=== PATIENT | female | born 1960 | race Caucasian/White ===

== ENCOUNTER 2016-03-15 17:11 | Emergency (ER) | payer OTHER ==
[~2016-03-15] VITALS: Ht 165.1 cm; Wt 79.5 kg
[~2016-03-15 17:11] MED LIST: ATV5 PO; BACL10TA PO; CALC200S; CALC200T PO; CHOL100010 PO; CLC100 PO; CLZ100 PO; FLUT1INH INH; GABA-112 PO; OXYC-164 PO; PERP1TAB5 PO; PRLSR20 PO; SYM100 PO; TIOTCAP INH; UMEC1INH INH; VNTHFA/IN INH; WARF2.5T8 PO; WARF5TAB7 PO
[2016-03-15 17:22] VITALS: TEMP 36.7; Ht 165.1 cm; Wt 79.5 kg
[2016-03-15] MEDS ORDERED: ACETAMINOPHEN 500 MG TAB PO STA (17:22)
[2016-03-15] MEDS ORDERED: CALC200S6 (18:12)
[2016-03-15] MEDS ORDERED: ACET-1256 PO (18:13)
[2016-03-15 18:14] LABS: BASO % 0.3 %; BASO ABS # 0.04 K/uL (0-0.2); COMPLETE YES; EOS % 2.3 %; HEMATOCRIT 38.7 % (37-47); IG% 0.2 %; LYMPH ABS # 3.14 K/uL (1.2-3.4); MEAN CELL VOLUME 90.6 fL (80-100); MEAN CORPUSCULAR HEMOGLOBIN 29.7 pg (25-34); MEAN CORPUSCULAR HGB CONC 32.8 g/dl (32-36); MEAN PLATELET VOLUME 9.9 fL (7.4-10.4); MONO % 11.1 %; NEUT % 61.1 %; PLATELET COUNT 381 K/uL (130-400); RED BLOOD COUNT 4.27 M/uL (4.2-5.4); WHITE BLOOD COUNT 12.57 K/uL (4.8-10.8)
[2016-03-15 18:27] LABS: BUN/CREATININE RATIO 17.6 (10-20); CALCIUM 9.4 mg/dl (8.5-10.1); CREATININE 0.98 mg/dl (0.60-1.20)
[2016-03-15 18:38] LABS: POTASSIUM 3.9 mmol/L (3.5-5.1)
--- NOTE | 2016-03-15 18:57 | DIAGNOSTIC IMAGING REPORT ---
HEAD CT NONCONTRAST CT DOSE: HISTORY: fall hit head TECHNIQUE: Multiaxial CT images of the head were performed without the use of intravenous contrast. Automated exposure control was utilized for this study. Comparison: Head CT 05/30/2014. Findings: Small fluid level within the left sphenoid sinus. The mastoid air cells are clear. Focal mild posterior scalp swelling/hematoma. The calvarium and skull base are intact. The ventricles and sulci are within normal limits. There is no mass, hematoma, midline shift, or acute infarct. Impression: No acute intracranial abnormality. Focal posterior scalp swelling/hematoma Electronically signed by: Uriel Talley M.D. 03/15/2016 6:55 PM Dictated Date/Time: 03/15/2016 6:47 PM
--- NOTE | 2016-03-15 19:00 | DIAGNOSTIC IMAGING REPORT ---
PELVIS/right HIP 2-3VIEWS CLINICAL HISTORY: r hip pain Right COMPARISON STUDY: Right femur 05/30/2014. FINDINGS: There is internal fixation of bilateral proximal femur fractures. The hardware appears intact. The hardware remains unchanged in position. No abnormal periprosthetic lucency. Heterotopic ossification superior to the left proximal femur. Cartilage spaces are maintained for age within the hips. No acute fracture or dislocation within the pelvis or hips. The sacrum appears intact. Soft tissues are unremarkable. IMPRESSION: 1. No acute fracture or dislocation within the pelvis or hips. 2. Postoperative changes within the bilateral hips. The hardware appears intact. Electronically signed by: Uriel Talley M.D. 03/15/2016 6:58 PM Dictated Date/Time: 03/15/2016 6:55 PM
--- NOTE | 2016-03-15 19:07 | DIAGNOSTIC IMAGING REPORT ---
CERVICAL SPINE CT CT DOSE: 946.47 mGy.cm HISTORY: Neck pain. fall hit head TECHNIQUE: Multiaxial CT images of the cervical spine were performed and reformatted in the sagittal and coronal plane without the use of contrast. COMPARISON: Cervical spine CT 05/30/2014. FINDINGS: No fractures. No subluxation. Prevertebral soft tissues and the C1-C2 interval are intact. No pneumothorax. Bilateral thyroid nodules with the largest on the left measuring 9 mm. Dextroscoliosis which may be positional. Mild disc space narrowing at C3-C4 and moderate to space narrowing at C4-C5 and C5-C6. This is similar to the prior study. IMPRESSION: No fractures within the cervical spine. Electronically signed by: Uriel Talley M.D. 03/15/2016 7:05 PM Dictated Date/Time: 03/15/2016 7:01 PM
[2016-03-15 19:30] LABS: INR 3.3 (0.9-1.1)
--- NOTE | 2016-03-15 19:57 | EMERGENCY ROOM VISIT NOTE ---
History Report prepared by Stanley: Sruthi Aceves Under the Supervision of: Jodie WinnO. 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 The patient states that she was walking between doorways in the house and tripped, fell, and hit her head. She reports that she normally wears 3L of oxygen at home. She complains of head pain, hip pain, and slight neck pain. She denies any LOC, change in vision, new back pain, ankle pain, leg pain, and arm pain. The patient notes that she takes Warfarin but is not sure what her Coumadin levels are. She reports that she has a history of blood clots in her leg. She does not know when her last tetanus shot was. 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 She denies any change in vision, ankle pain, leg pain, and arm pain. Review of Systems See HPI for pertinent positives & negatives. A total of 10 systems reviewed and were otherwise negative. Past Medical & Surgical Medical Problems: (1) Accidental drug overdose (2) Alcohol abuse (3) Aspiration pneumonia (4) Back pain (5) Cataract (6) Chronic hepatitis C (7) Chronic obstructive lung disease (8) Chronic paranoid schizophrenia (9) Closed fracture of femur (10) COPD (chronic obstructive pulmonary disease) (11) Deep venous thrombosis (12) Depression (13) Drug abuse (14) Gastroesophageal reflux disease (15) Hepatitis C (16) Hypoxia (17) Hysterectomy (18) Opiate abuse, continuous (19) Osteoporosis (20) Past Psych Meds (21) Psychosis (22) S/P ORIF (open reduction internal fixation) fracture (23) Schizoaffective disorder (24) Seizure (25) Suicidal ideation (26) Tinea (27) Tobacco user Surgical Problems: (1) H/O colonoscopy (2) History of hysterectomy (3) S/p thoracic spinal surgery (4) S/P tonsillectomy Family History FH: lung cancer GRANDMOTHER Thyroid disorder MOTHER SISTER Social History Smoking Status: Former Smoker Alcohol Use: none Drug Use: other Marital Status: single Housing Status: lives with family Occupation Status: disabled Current/Historical Medications Scheduled Amantadine HCl (Amantadine HCl), 100 MG PO BID Calcitonin ([place]) (Calcitonin [place]), 1 SPRAY NA DAILY@1600 Calcium Carbonate-Vitamin D (Oscal 500/200 D-3), 1 TAB PO BID Cholecalciferol (D 1000), 1,000 UNIT PO QAM Clozapine (Clozapine), 400 MG PO HS Docusate Sodium (Docusate Sodium), 100 MG PO BID Econazole Nitrate (Econazole Nitrate Crm 1% 30 Gm), 1 APPLN TOP QID Escitalopram Oxalate (Escitalopram Oxalate), 20 MG PO QAM Fenofibrate (Fenofibrate), 48 MG PO QAM Ferrous Sulfate (Ferrous Sulfate), 325 MG PO BIDM Fluticasone Furoate-Vilanterol (Breo Ellipta), 1 PUFF INH DAILY@1600 Folic Acid (Folvite), 1 MG PO DAILY Gabapentin (Neurontin), 200 MG PO TID Montelukast Sodium (Singulair), 10 MG PO HS Omeprazole (Prilosec), 20 MG PO QAM Perphenazine (Trilafon), 12 MG PO AMHS Senna/Docusate Sod (Senokot S), 2 TAB PO DAILY Tamsulosin Hcl (Flomax), 0.4 MG PO HS Umeclidinium Turin (Incruse Ellipta), 1 PUFF INH DAILY Warfarin Sod (Jantoven), Unknown Dose PO UNKNOWN Scheduled PRN Acetaminophen (Tylenol), 1,000-1,500 MG PO Q12 PRN for RN Albuterol Hfa (Ventolin Hfa), 2 PUFFS INH QID PRN for SOB/Wheezing Baclofen (Lioresal), 5 MG PO BID PRN for Muscle Spasms Lorazepam (Lorazepam), 0.5 MG PO BID PRN for Anxiety Oxycodone Hcl (Oxycodone Hcl), 1 TAB PO Q8 PRN for Pain Allergies Coded Allergies: Haloperidol (Verified Allergy, Unknown, 03/15/16) [place] (Verified Allergy, Unknown, ., 03/15/16) Molindone (Verified Adverse Reaction, Intermediate, PT FEELS LIKE SHES "JUMPING OUT OF HER SKIN", 03/15/16) Fluphenazine (Verified Adverse Reaction, Unknown, confusion, 03/15/16) Physical Exam Vital Signs Date Time Temp Pulse Resp B/P Pulse Ox O2 Delivery O2 Flow Rate FiO2 03/15/16 19:59 99 18 121/80 95 03/15/16 18:19 109 18 110/83 94 Nasal Cannula 3.0 03/15/16 17:22 36.7 100 16 130/114 95 Nasal Cannula 3.0 Physical Exam GENERAL: alert, well appearing, well nourished, no distress, non-toxic, on nasal cannula HEAD: normal cephalic, contusion to the left posterior occiput without bleeding , skin is intact. EYE EXAM: normal conjunctiva, PERRL and EOM's grossly intact OROPHARYNX: no exudate, no erythema, lips, buccal mucosa, and tongue normal and mucous membranes are moist EARS: TMs clear b/l NECK: supple, no nuchal rigidity, no adenopathy, non-tender CHEST: stable to compression anteriorly and posteriorly LUNGS: clear to auscultation. Normal chest wall mechanics HEART: tachycardic, no murmurs, S1 normal and S2 normal ABDOMEN: abdomen soft, non-tender, normo-active bowel sounds, no masses, no rebound or guarding. PELVIS: stable to compression anteriorly and posteriorly BACK: Back is symmetrical on inspection and there is no deformity, no CVA tenderness. Old incision in the mid thoracic that are intact. Midline cervical tenderness. UPPER EXTREMITIES: full active and passive range of motion of all joints without tenderness to palpation LOWER EXTREMITIES: full active and passive range of motion of all joints with minimal pain on palpation of the right proximal femur NEURO EXAM: Normal sensorium, cranial nerves II-XII grossly intact, normal speech, no gross weakness of arms, no gross weakness of legs. GCS: 15. Medical Decision & Procedures ER Provider Diagnostic Interpretation: Xray results per the radiologist and my interpretation. Other results have been interpreted by the radiologist and reviewed by me. PELVIS/right HIP 2-3VIEWS FINDINGS: There is internal fixation of bilateral proximal femur fractures. The hardware appears intact. The hardware remains unchanged in position. No abnormal periprosthetic lucency. Heterotopic ossification superior to the left proximal femur. Cartilage spaces are maintained for age within the hips. No acute fracture or dislocation within the pelvis or hips. The sacrum appears intact. Soft tissues are unremarkable. IMPRESSION: 1. No acute fracture or dislocation within the pelvis or hips. 2. Postoperative changes within the bilateral hips. The hardware appears intact. Electronically signed by: Uriel Talley M.D. 03/15/2016 6:58 PM Dictated Date/Time: 03/15/2016 6:[address] NONCONTRAST Findings: Small fluid level within the left sphenoid sinus. The mastoid air cells are clear. Focal mild posterior scalp swelling/hematoma. The calvarium and skull base are intact. The ventricles and sulci are within normal limits. There is no mass, hematoma, midline shift, or acute infarct. Impression: No acute intracranial abnormality. Focal posterior scalp swelling/hematoma Electronically signed by: Uriel Talley M.D. 03/15/2016 6:55 PM Dictated Date/Time: 03/15/2016 6:[address] FINDINGS: No fractures. No subluxation. Prevertebral soft tissues and the C1-C2 interval are intact. No pneumothorax. Bilateral thyroid nodules with the largest on the left measuring 9 mm. Dextroscoliosis which may be positional. Mild disc space narrowing at C3-C4 and moderate to space narrowing at C4-C5 and C5-C6. This is similar to the prior study. IMPRESSION: No fractures within the cervical spine. Electronically signed by: Uriel Talley M.D. 03/15/2016 7:05 PM Dictated Date/Time: 03/15/2016 7:01 PM Laboratory Results 03/15/16 17:55 Red Blood Count 4.27, Mean Corpuscular Volume 90.6, Mean Corpuscular Hemoglobin 29.7, Mean Corpuscular Hemoglobin Concent 32.8, Mean Platelet Volume 9.9, Neutrophils (%) (Auto) 61.1, Lymphocytes (%) (Auto) 25.0, Monocytes (%) (Auto) 11.1, Eosinophils (%) (Auto) 2.3, Basophils (%) (Auto) 0.3, Neutrophils # (Auto ) 7.68, Lymphocytes # (Auto) 3.14, Monocytes # (Auto) 1.39, Eosinophils # (Auto ) 0.29, Basophils # (Auto) 0.04 03/15/16 17:55 Test 03/15/16 17:55 03/15/16 19:01 White Blood Count 12.57 K/uL (4.8-10.8) Red Blood Count 4.27 M/uL (4.2-5.4) Hemoglobin 12.7 g/dL (12.0-16.0) Hematocrit 38.7 % (37-47) Mean Corpuscular Volume 90.6 fL (80-100) Mean Corpuscular Hemoglobin 29.7 pg (25-34) Mean Corpuscular Hemoglobin Concent 32.8 g/dl (32-36) Platelet Count 381 K/uL (130-400) Mean Platelet Volume 9.9 fL (7.4-10.4) Neutrophils (%) (Auto) 61.1 % Lymphocytes (%) (Auto) 25.0 % Monocytes (%) (Auto) 11.1 % Eosinophils (%) (Auto) 2.3 % Basophils (%) (Auto) 0.3 % Neutrophils # (Auto) 7.68 K/uL (1.4-6.5) Lymphocytes # (Auto) 3.14 K/uL (1.2-3.4) Monocytes # (Auto) 1.39 K/uL (0.11-0.59) Eosinophils # (Auto) 0.29 K/uL (0-0.5) Basophils # (Auto) 0.04 K/uL (0-0.2) RDW Standard Deviation 51.2 fL (36.4-46.3) RDW Coefficient of Variation 15.3 % (11.5-14.5) Immature Granulocyte % (Auto) 0.2 % Immature Granulocyte # (Auto) 0.03 K/uL (0.00-0.02) Anion Gap 10.0 mmol/L (3-11) Est Creatinine Clear Calc Drug Dose 66.8 ml/min Estimated GFR () 74.7 Estimated GFR (Non- 64.5 BUN/Creatinine Ratio 17.6 (10-20) Calcium Level 9.4 mg/dl (8.5-10.1) Chemistry Specimen Hemolysis Prothrombin Time 37.0 SECONDS (9.0-12.0) Prothromb Time International Ratio 3.3 (0.9-1.1) Activated Partial Thromboplast Time 50.7 SECONDS (21.0-31.0) Partial Thromboplastin Ratio 2.0 Laboratory results per my review. Medications Administered Medications (Trade) Dose Ordered Sig/Janel Route Start Time Stop Time Status Last Admin Dose Admin Acetaminophen (Tylenol Tab) 500 mg NOW STAT PO 03/15/16 17:22 03/15/16 17:25 DC 03/15/16 17:44 500 MG ECG Indication: other (fall) Rate (beats per minute): 102 Rhythm: sinus tachycardia Findings: other (normal axis, nonspecific ST changes in lead 3) Comparison ECG Date: 01/24/16 Change: no significant change ED Course ED COURSE: Vital signs were reviewed and the patient was tachycardic The patients medical record was reviewed The above diagnostic studies were performed and reviewed. ED treatments and interventions as stated above. 171: The patient was evaluated in room A12B. A complete history and physical examination was performed. 172: Tylenol Tab 500mg PO. 1824: I reevaluated the patient and she is doing fine 1942: I reevaluated and updated the patient. She is feeling much better. 1999: Upon reevaluation, the patient is hemodynamically stable.I discussed my findings with the patient and she understands and agrees with the treatment plan. Based on the patients age, coexisting illnesses, exam and lab findings the decision to treat as an outpatient was made. The patient remained stable while under my care. The patient appeared well at the time of discharge. Medical Decision Differential diagnoses include major intracranial, cervical, spinal, thoracic, abdominal, pelvic and neurologic injury. Fracture, contusion, sprain, strain, laceration, abrasions included as well. Patient is a 55-year-old female who presents the ER via ALS following a mechanical fall while walking through a doorway which she tripped and fell and hit the back of her head. She is on Coumadin for previous DVTs. INR was supratherapeutic at 3.3. She had minimal paraspinal cervical neck tenderness. CT head and cervical spine were negative. X-rays of her hip and pelvis showed no acute fractures. She has no other complaints. CBC and BMP were unremarkable. EKG was nondiagnostic. Patient was discharged instructed to follow with her primary care doctor. Discussed with Pt concerning signs and symptoms to watch out for. Pt was instructed to follow up with their PCP and discussed with the patient their option to return to the ED at anytime for persistent or worsening symptoms. The appropriate anticipatory guidance and out- patient management, including indications for return to the emergency department , were explained at length to the patient and understood. Impression Primary Impression: Contusion of head Additional Impression: Fall Scribe Attestation The scribe's documentation has been prepared under my direction and personally reviewed by me in its entirety. I confirm that the note above accurately reflects all work, treatment, procedures, and medical decision making performed by me. Departure Information Dispostion Home / Self-Care Referrals No Doctor, Assigned (PCP) Forms HOME CARE DOCUMENTATION FORM, IMPORTANT VISIT INFORMATION Patient Instructions My [facility] Additional Instructions Please follow up with your primary care doctor with in the next 24 hours. Any worsening of your symptoms, please return to the ED immediately. This includes change in vision, worsening headache, any new pain, passing out, confusion or any other concerning signs or symptoms from your standpoint. Your INR is supratherapeutic at 3.3. Please do not take her Coumadin tonight but you may restart this tomorrow. Problem Qualifiers Primary Impression: Contusion of head Encounter type: initial encounter Contusion of head detail: scalp Qualified Codes: S00.03XA - Contusion of scalp, initial encounter Additional Impression: Fall Encounter type: initial encounter Qualified Codes: W19.XXXA - Unspecified fall, initial encounter
[2016-03-15 19:59] VITALS: BP 121/80; PULSE 99; O2SAT 95
[2016-05-04] MEDS ORDERED: NRN300 PO (16:25)
[2016-05-04] MEDS ORDERED: HYDR-3419 PO (18:03)
[2016-05-31] MEDS ORDERED: FLUT1INH7 (06:17)
[2016-10-18] MEDS ORDERED: ATR25 PO (11:50)
[2016-10-18] MEDS ORDERED: CFT250 PO (12:01)
[2016-10-18] MEDS ORDERED: GABA1CAP PO (12:01)
[2016-11-26] MEDS ORDERED: CLOZ100T18 PO (06:09)
[2016-11-26] MEDS ORDERED: PERP1TAB11 PO ×2 (06:17→09:04)
[2016-11-26] MEDS ORDERED: UMEC1INH PO (06:19)
[2016-11-26] MEDS ORDERED: FLUT1INH INH (06:20)
[2016-11-26] MEDS ORDERED: DOCU100C31 PO (06:22)
[2016-11-26] MEDS ORDERED: MONT1TAB3 PO (08:47)
[2016-11-26] MEDS ORDERED: BACL1TAB PO (09:04)
[2016-11-26] MEDS ORDERED: ACET1TAB84 PO (09:04)
[2016-11-26] MEDS ORDERED: FLUT0.15 NAE (09:04)
[2016-11-26] MEDS ORDERED: NAPR1TAB9 PO (09:10)
[2016-11-26] MEDS ORDERED: VNTHFA/IN INH (10:53)
[2016-11-26] MEDS ORDERED: ATV/1 PO (10:56)
[2016-11-26] MEDS ORDERED: TAMS0.4C38 PO (11:38)
[2016-11-26] MEDS ORDERED: SENN-65 PO (12:13)
[2016-11-26] MEDS ORDERED: SPCCR30 TOP (12:13)
[2016-11-26] MEDS ORDERED: MCLIN (15:22)
[2016-11-26] MEDS ORDERED: MOML PO (15:22)
[2016-11-26] MEDS ORDERED: LXP/20 PO (17:03)
[2016-11-26] MEDS ORDERED: TRC48 PO (17:03)
[2016-11-26] MEDS ORDERED: FERR325T PO (18:03)
[2016-11-26] MEDS ORDERED: CHOL1TAB53 PO (18:12)
[2016-11-26] MEDS ORDERED: RANI150T2 PO (18:26)
== END 2016-03-15 20:00 | disposition home or self-care (01) ==
LOC: EDBD 17:11 → C.EDA 17:13
DX: S00.03XA Contusion of scalp, initial encounter (principal); Z86.718 Personal history of other venous thrombosis and embolism; Z79.01 Long term (current) use of anticoagulants; K21.9 Gastro-esophageal reflux disease without esophagitis; J44.9 Chronic obstructive pulmonary disease, unspecified; M81.0 Age-related osteoporosis without current pathological fracture; Z87.891 Personal history of nicotine dependence; Z99.81 Dependence on supplemental oxygen; F32.9 Major depressive disorder, single episode, unspecified; W19.XXXA Unspecified fall, initial encounter; Y93.01 Activity, walking, marching and hiking; Y92.019 Unspecified place in single-family (private) house as the place of occurrence of the external cause; Y99.8 Other external cause status

== ENCOUNTER 2016-03-19 07:03 | Emergency (ER) | payer OTHER ==
[~2016-03-19] VITALS: Ht 165.1 cm; Wt 78.2 kg
[~2016-03-19 07:03] MED LIST changes: +ACET-1256 PO; -CALC200S; +CALC200S6; -CHOL100010 PO; -TIOTCAP INH; -WARF5TAB7 PO
[2016-03-19 07:12] VITALS: TEMP 36.9; Ht 165.1 cm; Wt 78.2 kg
[2016-03-19] MEDS ORDERED: OXYCODONE HCL IR 5 MG TAB (IMMEDIATE RELEASE) PO STA (07:42)
--- NOTE | 2016-03-19 08:10 | DIAGNOSTIC IMAGING REPORT ---
CHEST 2 VIEWS ROUTINE CLINICAL HISTORY: Shortness of breath COMPARISON STUDY: 01/16/2016 FINDINGS: The heart is the upper limits of normal in size. There are postsurgical changes present within the thoracic spine. There are right upper lung zone and left midlung zone interstitial opacities which appear similar to prior studies and are likely chronic. Bilateral rib deformities are again visualized.[ IMPRESSION: Chronic bilateral interstitial opacities. No acute parenchymal consolidation. Electronically signed by: Bismark Galdamez M.D. 03/19/2016 8:08 AM Dictated Date/Time: 03/19/2016 8:07 AM
--- NOTE | 2016-03-19 08:28 | EMERGENCY ROOM VISIT NOTE ---
ED Visit Note First contact with patient: 07:09 I have personally seen and evaluated the patient with the physician facilities assistant. I agree with the diagnostic/management decisions and have personally been involved in these decisions and agree with the diagnosis.
--- NOTE | 2016-03-19 08:31 | EMERGENCY ROOM VISIT NOTE ---
History First contact with patient: 07:09 Chief Complaint: MENTAL HEALTH EVALUATION Stated Complaint: RESPIRATORY DISTRESS History of Present Illness The patient is a 55 year old female who presents to the Emergency Room via EMS from home with chief complaint that she feels she cannot get enough oxygen. The patient states that since she was seen here in the ER for head injury it feels like she cannot get enough oxygen through her nasal cannula at home. She states since she came to the emergency room and has a new nasal cannula she is breathing just fine. The patient denies any ear pain, sore throat, head congestion. The patient denies any chest pain. She also had mentioned to the nurse that she had one suicidal thought this morning. She states it was "just passing". The patient states that when she woke up this morning she had her cat and then she went back to bed and had just one "passing moment of killing herself"but did not even think of how to do it. She had no plan. She denies any suicidal thoughts at this time. She states she has appointment with her psychiatrist tomorrow. She states she has been doing her normal activities which she is limited due to her physical conditions. She lives alone but her sister and mother live upstairs. She has been eating and drinking fine. Review of Systems 10 system review was performed and was negative unless stated otherwise history of present illness. Past Medical/Surgical History Medical Problems: (1) Accidental drug overdose (2) Alcohol abuse (3) Aspiration pneumonia (4) Back pain (5) Cataract (6) Chronic hepatitis C (7) Chronic obstructive lung disease (8) Chronic paranoid schizophrenia (9) Closed fracture of femur (10) COPD (chronic obstructive pulmonary disease) (11) Deep venous thrombosis (12) Depression (13) Drug abuse (14) Gastroesophageal reflux disease (15) Hepatitis C (16) Hypoxia (17) Hysterectomy (18) Opiate abuse, continuous (19) Osteoporosis (20) Past Psych Meds (21) Psychosis (22) S/P ORIF (open reduction internal fixation) fracture (23) Schizoaffective disorder (24) Seizure (25) Suicidal ideation (26) Tinea (27) Tobacco user Surgical Problems: (1) H/O colonoscopy (2) History of hysterectomy (3) S/p thoracic spinal surgery (4) S/P tonsillectomy Family History FH: lung cancer GRANDMOTHER Thyroid disorder MOTHER SISTER Social History Smoking Status: Former Smoker Alcohol Use: none Drug Use: other Marital Status: single Housing Status: lives with family Occupation Status: disabled Current/Historical Medications Scheduled Amantadine HCl (Amantadine HCl), 100 MG PO BID Calcitonin ([place]) (Calcitonin [place]), 1 SPRAY NA DAILY@1600 Calcium Carbonate-Vitamin D (Oscal 500/200 D-3), 1 TAB PO BID Cholecalciferol (D 1000), 1,000 UNIT PO QAM Clozapine (Clozapine), 400 MG PO HS Docusate Sodium (Docusate Sodium), 100 MG PO BID Econazole Nitrate (Econazole Nitrate Crm 1% 30 Gm), 1 APPLN TOP QID Escitalopram Oxalate (Escitalopram Oxalate), 20 MG PO QAM Fenofibrate (Fenofibrate), 48 MG PO QAM Ferrous Sulfate (Ferrous Sulfate), 325 MG PO BIDM Fluticasone Furoate-Vilanterol (Breo Ellipta), 1 PUFF INH DAILY@1600 Folic Acid (Folvite), 1 MG PO DAILY Gabapentin (Neurontin), 200 MG PO TID Montelukast Sodium (Singulair), 10 MG PO HS Omeprazole (Prilosec), 20 MG PO QAM Perphenazine (Trilafon), 12 MG PO AMHS Senna/Docusate Sod (Senokot S), 2 TAB PO DAILY Tamsulosin Hcl (Flomax), 0.4 MG PO HS Umeclidinium [place] (Incruse Ellipta), 1 PUFF INH DAILY Warfarin Sod (Jantoven), Unknown Dose PO UNKNOWN Scheduled PRN Acetaminophen (Tylenol), 1,000-1,500 MG PO Q12 PRN for RN Albuterol Hfa (Ventolin Hfa), 2 PUFFS INH QID PRN for SOB/Wheezing Baclofen (Lioresal), 5 MG PO BID PRN for Muscle Spasms Lorazepam (Lorazepam), 0.5 MG PO BID PRN for Anxiety Oxycodone Hcl (Oxycodone Hcl), 1 TAB PO Q8 PRN for Pain Allergies Coded Allergies: Haloperidol (Verified Allergy, Unknown, 03/19/16) [place] (Verified Allergy, Unknown, ., 03/19/16) Molindone (Verified Adverse Reaction, Intermediate, PT FEELS LIKE SHES "JUMPING OUT OF HER SKIN", 03/19/16) Fluphenazine (Verified Adverse Reaction, Unknown, confusion, 03/19/16) Physical Exam Vital Signs Date Time Temp Pulse Resp B/P Pulse Ox O2 Delivery O2 Flow Rate FiO2 03/19/16 07:25 92 20 97 Nasal Cannula 3.0 03/19/16 07:12 36.9 15 18 134/83 93 Room Air Physical Exam GENERAL: 55-year-old white female appears in no acute distress. Nasal cannula is in place. MENTAL Status: Alert and oriented 3. The patient does not appear tearful or anxious. She answers questions appropriately. EYES: PERRLA. EOMs intact. EARS: Canals with cerumen unable to visualize TMs bilaterally. NOSE: Nasal mucosa with minimal erythema and engorgement. PHARYNX: No erythema or edema noted. Airway is adequate. NECK: Supple, no lymphadenopathy noted. No carotid bruits noted. LUNGS: Clear auscultation without wheezes rales or rhonchi. CARDIAC: Regular rate and rhythm without murmur. Pulses is full and equal throughout. ABDOMEN: Positive bowel sounds all 4 quadrants. Soft, nontender to palpation without organomegaly or masses. NEURO:Cranial nerves two through 12 intact. Cerebellar function intact with [id number]. Fine motor intact with alternating finger motions. LOWER EXTREMITIES: No cyanosis or edema noted. Calves nontender to palpation. Medical Decision & Procedures ER Provider Diagnostic Interpretation: CHEST 2 VIEWS ROUTINE CLINICAL HISTORY: Shortness of breath COMPARISON STUDY: 01/16/2016 FINDINGS: The heart is the upper limits of normal in size. There are postsurgical changes present within the thoracic spine. There are right upper lung zone and left midlung zone interstitial opacities which appear similar to prior studies and are likely chronic. Bilateral rib deformities are again visualized.[ IMPRESSION: Chronic bilateral interstitial opacities. No acute parenchymal consolidation. Electronically signed by: Bismark Galdamez M.D. 03/19/2016 8:08 AM Medications Administered Medications (Trade) Dose Ordered Sig/Janel Route Start Time Stop Time Status Last Admin Dose Admin Oxycodone HCl (Roxicodone Immediate Rel Tab) 10 mg NOW STAT PO 03/19/16 07:42 03/19/16 07:44 DC 03/19/16 08:07 10 MG ED Course The patient was evaluated. The patient did request her oxycodone for pain which she normally takes at 8 AM. This was given to the patient. I do not feel that this patient is in need of a mental health evaluation. She just had one passing moment of a suicide ideation without plan. She does not have any suicidal homicidal ideations at this time. The patient is feeling well. A chest x-ray was ordered and interpreted as above without any acute findings. She was independently evaluated by Dr. Mosqueda who agrees with treatment plan. The patient was discharged home in stable condition. She was given a nasal cannula she was wearing to take with her home. Medical Decision I do not feel this patient requires a mental health evaluation. I feel at the shortness of breath that she was experiencing was due to the nasal cannula she was using at home. Hopefully with the new nasal cannula she will be able to breathe easily at home as well. A chest x-ray was ordered just to make sure there was no underlying acute process. Impression Primary Impression: Shortness of breath Departure Information Dispostion Home / Self-Care Condition GOOD Referrals Naveed Adam III, M.D. (PCP) Forms HOME CARE DOCUMENTATION FORM, IMPORTANT VISIT INFORMATION Patient Instructions My [facility] Additional Instructions Continue all medications as prescribed. Recommend using the new nasal cannula for your oxygen. Keep scheduled appointment with your psychiatrist tomorrow.
[2016-03-19 10:43] VITALS: BP 134/95; PULSE 98; O2SAT 96
[2016-05-04] MEDS ORDERED: NRN300 PO (16:25)
[2016-05-04] MEDS ORDERED: HYDR-3419 PO (18:03)
[2016-05-31] MEDS ORDERED: FLUT1INH7 (06:17)
[2016-10-18] MEDS ORDERED: ATR25 PO (11:50)
[2016-10-18] MEDS ORDERED: CFT250 PO (12:01)
[2016-10-18] MEDS ORDERED: GABA1CAP PO (12:01)
[2016-11-26] MEDS ORDERED: CLOZ100T18 PO (06:09)
[2016-11-26] MEDS ORDERED: PERP1TAB11 PO ×2 (06:17→09:04)
[2016-11-26] MEDS ORDERED: UMEC1INH PO (06:19)
[2016-11-26] MEDS ORDERED: FLUT1INH INH (06:20)
[2016-11-26] MEDS ORDERED: DOCU100C31 PO (06:22)
[2016-11-26] MEDS ORDERED: MONT1TAB3 PO (08:47)
[2016-11-26] MEDS ORDERED: ACET1TAB84 PO (09:04)
[2016-11-26] MEDS ORDERED: FLUT0.15 NAE (09:04)
[2016-11-26] MEDS ORDERED: BACL1TAB PO (09:04)
[2016-11-26] MEDS ORDERED: NAPR1TAB9 PO (09:10)
[2016-11-26] MEDS ORDERED: VNTHFA/IN INH (10:53)
[2016-11-26] MEDS ORDERED: ATV/1 PO (10:56)
[2016-11-26] MEDS ORDERED: TAMS0.4C38 PO (11:38)
[2016-11-26] MEDS ORDERED: SENN-65 PO (12:13)
[2016-11-26] MEDS ORDERED: SPCCR30 TOP (12:13)
[2016-11-26] MEDS ORDERED: MOML PO (15:22)
[2016-11-26] MEDS ORDERED: MCLIN (15:22)
[2016-11-26] MEDS ORDERED: TRC48 PO (17:03)
[2016-11-26] MEDS ORDERED: LXP/20 PO (17:03)
[2016-11-26] MEDS ORDERED: FERR325T PO (18:03)
[2016-11-26] MEDS ORDERED: CHOL1TAB53 PO (18:12)
[2016-11-26] MEDS ORDERED: RANI150T2 PO (18:26)
== END 2016-03-19 11:08 | disposition home or self-care (01) ==
LOC: EDBD 07:03 → C.EDB 07:05 → C.EDA 11:08
DX: R06.02 Shortness of breath (principal); F20.0 Paranoid schizophrenia; F32.9 Major depressive disorder, single episode, unspecified; J44.9 Chronic obstructive pulmonary disease, unspecified; K21.9 Gastro-esophageal reflux disease without esophagitis; M81.0 Age-related osteoporosis without current pathological fracture; B18.2 Chronic viral hepatitis C; Z79.899 Other long term (current) drug therapy; Z79.01 Long term (current) use of anticoagulants; Z86.718 Personal history of other venous thrombosis and embolism; Z87.891 Personal history of nicotine dependence; Z80.1 Family history of malignant neoplasm of trachea, bronchus and lung; Z83.49 Family history of other endocrine, nutritional and metabolic diseases

== ENCOUNTER 2016-04-04 11:16 | Emergency (ER) | payer OTHER ==
[~2016-04-04] VITALS: Ht 165.1 cm; Wt 78.0 kg
[~2016-04-04 11:16] MED LIST changes: -BACL10TA PO
[2016-04-04 11:33] VITALS: TEMP 36.8; Ht 165.1 cm; Wt 78.0 kg
[2016-04-04] MEDS ORDERED: ECON1POW (11:43)
[2016-04-04] MEDS ORDERED: BACL10TA PO (11:43)
[2016-04-04 13:25] LABS: URINE APPEARANCE CLEAR (CLEAR); URINE BILIRUBIN NEG (NEG); URINE COLOR YELLOW; URINE NITRITE NEG (NEG); URINE PH 7.5 (4.5-7.5); URINE SPECIFIC GRAVITY 1.003 (1.000-1.030); UROBILINOGEN NEG (NEG); ZZUR CULT IF INDIC CLEAN CATCH NO
[2016-04-04 13:27] LABS: MANUAL MICROSCOPIC REQUIRED? NO; REVIEW REQ? NO
[2016-04-04 14:07] LABS: BASO % 0.2 %; BASO ABS # 0.03 K/uL (0-0.2); COMPLETE YES; EOS % 1.6 %; HEMATOCRIT 40.6 % (37-47); IG% 0.6 %; LYMPH % 15.7 %; LYMPH ABS # 2.29 K/uL (1.2-3.4); MEAN CELL VOLUME 90.8 fL (80-100); MEAN CORPUSCULAR HEMOGLOBIN 29.5 pg (25-34); MEAN CORPUSCULAR HGB CONC 32.5 g/dl (32-36); MEAN PLATELET VOLUME 9.6 fL (7.4-10.4); MONO % 8.1 %; NEUT % 73.8 %; PLATELET COUNT 299 K/uL (130-400); RED BLOOD COUNT 4.47 M/uL (4.2-5.4)
[2016-04-04 14:22] LABS: BUN/CREATININE RATIO 16.9 (10-20); CALCIUM 9.3 mg/dl (8.5-10.1); CREATININE 0.83 mg/dl (0.60-1.20); MAGNESIUM 2.1 mg/dl (1.8-2.4); POTASSIUM 4.1 mmol/L (3.5-5.1)
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
[2016-04-04 15:00] VITALS: BP 113/93; PULSE 95; O2SAT 97
--- NOTE | 2016-04-04 15:12 | EMERGENCY ROOM VISIT NOTE ---
History Report prepared by Stanley: Umer Ferris Under the Supervision of: Dr. Mateus Perez M.D. First contact with patient: 12:20 Chief Complaint: OTHER COMPLAINT Stated Complaint: ILLNESS History of Present Illness The patient is a 55 year old female who presents to the Emergency Room with complaints of concern over dehydration and generalized malaise. She has a history of cognitive impairment and lives at a assisted home. Per nursing staffpatient her demeanor is consistent with baseline. She has no focal complaints on a history and physical exam today. She is requesting Percocet while she was here Review of Systems See HPI for pertinent positives & negatives. A total of 10 systems reviewed and were otherwise negative. Past Medical & Surgical Medical Problems: (1) Accidental drug overdose (2) Alcohol abuse (3) Aspiration pneumonia (4) Back pain (5) Cataract (6) Chronic hepatitis C (7) Chronic obstructive lung disease (8) Chronic paranoid schizophrenia (9) Closed fracture of femur (10) COPD (chronic obstructive pulmonary disease) (11) Deep venous thrombosis (12) Depression (13) Drug abuse (14) Gastroesophageal reflux disease (15) Hepatitis C (16) Hypoxia (17) Hysterectomy (18) Opiate abuse, continuous (19) Osteoporosis (20) Past Psych Meds (21) Psychosis (22) S/P ORIF (open reduction internal fixation) fracture (23) Schizoaffective disorder (24) Seizure (25) Suicidal ideation (26) Tinea (27) Tobacco user Surgical Problems: (1) H/O colonoscopy (2) History of hysterectomy (3) S/p thoracic spinal surgery (4) S/P tonsillectomy Family History FH: lung cancer GRANDMOTHER Thyroid disorder MOTHER SISTER Social History Smoking Status: Never Smoker Alcohol Use: none Drug Use: other Marital Status: single Housing Status: lives with family Occupation Status: disabled Current/Historical Medications Scheduled Amantadine HCl (Amantadine HCl), 100 MG PO BID Calcitonin ([place]) (Calcitonin [place]), 1 SPRAY NA DAILY@1600 Calcium Carbonate-Vitamin D (Oscal 500/200 D-3), 1 TAB PO BID Cholecalciferol (D 1000), 1,000 UNIT PO QAM Clozapine (Clozapine), 400 MG PO HS Econazole Nitrate (Econazole Nitrate Crm 1% 30 Gm), 1 APPLN TOP QID Escitalopram Oxalate (Escitalopram Oxalate), 20 MG PO QAM Fenofibrate (Fenofibrate), 48 MG PO QAM Ferrous Sulfate (Ferrous Sulfate), 325 MG PO BIDM Fluticasone Furoate-Vilanterol (Breo Ellipta), 1 PUFF INH DAILY@1600 Folic Acid (Folvite), 1 MG PO DAILY Gabapentin (Neurontin), 200 MG PO TID Montelukast Sodium (Singulair), 10 MG PO HS Omeprazole (Prilosec), 20 MG PO QAM Perphenazine (Trilafon), 12 MG PO AMHS Senna/Docusate Sod (Senokot S), 2 TAB PO DAILY Tamsulosin Hcl (Flomax), 0.4 MG PO HS Umeclidinium [place] (Incruse Ellipta), 1 PUFF INH DAILY Warfarin Sod ([place]ant[place]), Unknown Dose PO UNKNOWN Scheduled PRN Acetaminophen (Tylenol), 1,000-1,500 MG PO Q12 PRN for RN Albuterol Hfa (Ventolin Hfa), 2 PUFFS INH QID PRN for SOB/Wheezing Baclofen (Lioresal), 10 MG PO BID PRN for Muscle Spasms Lorazepam (Lorazepam), 0.5 MG PO BID PRN for Anxiety Oxycodone Hcl (Oxycodone Hcl), 1 TAB PO Q8 PRN for Pain Miscellaneous Medications Econazole Nitrate ([place]) (Econazole Nitrate) Allergies Coded Allergies: Haloperidol (Verified Allergy, Unknown, 04/04/16) [place] (Verified Allergy, Unknown, ., 04/04/16) Molindone (Verified Adverse Reaction, Intermediate, PT FEELS LIKE SHES "JUMPING OUT OF HER SKIN", 04/04/16) Fluphenazine (Verified Adverse Reaction, Unknown, confusion, 04/04/16) Physical Exam Vital Signs Date Time Temp Pulse Resp B/P Pulse Ox O2 Delivery O2 Flow Rate FiO2 04/04/16 15:00 95 20 113/93 97 04/04/16 13:36 92 18 113/93 97 Room Air 04/04/16 11:33 36.8 96 20 137/87 97 Nasal Cannula 3.0 Pain Rating (0-10): 0 Physical Exam CONSTITUTIONAL: No acute distress. Tangential in history consistent with history reported by nurse. HEENT: No icterus, moist mucous membranes NECK: No meningismus, trachea is midline. CARDIOVASCULAR: Regular rate, normal perfusion RESPIRATORY: Unlabored breathing. Clear to auscultation. GASTROINTESTINAL: Non-tender GENITOURINARY: No flank tenderness MUSCULOSKELETAL: Full range of motion NEUROLOGIC: Cognitive deficits at baseline. PSYCHIATRIC: Normal affect SKIN: Normal for ethnicity. Medical Decision & Procedures ER Provider Diagnostic Interpretation: CT results as stated below per my review and radiologist interpretation. CT OF THE HEAD WITHOUT CONTRAST FINDINGS: No acute intracranial hemorrhage, midline shift or mass effect is present. Ventricular system is stable. Basilar cisterns are patent. There are no extra-axial collections. Jesus-white differentiation is maintained. Mild white matter hypodensities are unchanged and suggest small vessel disease. There are no findings to suggest acute dural sinus thrombosis or acute territorial infarct. A posterior scalp contusion has decreased in size since exam of March 15, 2016. There is no calvarial fracture. IMPRESSION: 1. No acute intracranial findings. 2. No calvarial fracture. Electronically signed by: Benjamin Summers M.D. 04/04/2016 2:24 PM Dictated Date/Time: 04/04/2016 2:20 PM Laboratory Results 04/04/16 13:45 Red Blood Count 4.47, Mean Corpuscular Volume 90.8, Mean Corpuscular Hemoglobin 29.5, Mean Corpuscular Hemoglobin Concent 32.5, Mean Platelet Volume 9.6, Neutrophils (%) (Auto) 73.8, Lymphocytes (%) (Auto) 15.7, Monocytes (%) (Auto) 8.1, Eosinophils (%) (Auto) 1.6, Basophils (%) (Auto) 0.2, Neutrophils # (Auto) 10.77, Lymphocytes # (Auto) 2.29, Monocytes # (Auto) 1.18, Eosinophils # (Auto) 0.24, Basophils # (Auto) 0.03 04/04/16 13:45 Test 04/04/16 11:50 04/04/16 13:45 Urine Color YELLOW Urine Appearance CLEAR (CLEAR) Urine pH 7.5 (4.5-7.5) Urine Specific [place] 1.003 (1.000-1.030) Urine Protein NEG (NEG) Urine Glucose (UA) NEG (NEG) Urine Ketones NEG (NEG) Urine Occult Blood NEG (NEG) Urine Nitrite NEG (NEG) Urine Bilirubin NEG (NEG) Urine Urobilinogen NEG (NEG) Urine Leukocyte Esterase NEG (NEG) White Blood Count 14.60 K/uL (4.8-10.8) Red Blood Count 4.47 M/uL (4.2-5.4) Hemoglobin 13.2 g/dL (12.0-16.0) Hematocrit 40.6 % (37-47) Mean Corpuscular Volume 90.8 fL (80-100) Mean Corpuscular Hemoglobin 29.5 pg (25-34) Mean Corpuscular Hemoglobin Concent 32.5 g/dl (32-36) Platelet Count 299 K/uL (130-400) Mean Platelet Volume 9.6 fL (7.4-10.4) Neutrophils (%) (Auto) 73.8 % Lymphocytes (%) (Auto) 15.7 % Monocytes (%) (Auto) 8.1 % Eosinophils (%) (Auto) 1.6 % Basophils (%) (Auto) 0.2 % Neutrophils # (Auto) 10.77 K/uL (1.4-6.5) Lymphocytes # (Auto) 2.29 K/uL (1.2-3.4) Monocytes # (Auto) 1.18 K/uL (0.11-0.59) Eosinophils # (Auto) 0.24 K/uL (0-0.5) Basophils # (Auto) 0.03 K/uL (0-0.2) RDW Standard Deviation 51.3 fL (36.4-46.3) RDW Coefficient of Variation 15.3 % (11.5-14.5) Immature Granulocyte % (Auto) 0.6 % Immature Granulocyte # (Auto) 0.09 K/uL (0.00-0.02) Anion Gap 13.0 mmol/L (3-11) Est Creatinine Clear Calc Drug Dose 78.1 ml/min Estimated GFR () 91.4 Estimated GFR (Non- 78.8 BUN/Creatinine Ratio 16.9 (10-20) Calcium Level 9.3 mg/dl (8.5-10.1) Magnesium Level 2.1 mg/dl (1.8-2.4) Labs reviewed by ED physician. ED Course 1230: Past medical records reviewed. The patient was evaluated in room C1B. A complete history and physical examination was performed. 1440: Upon reexamination the patient is doing well. I discussed results and treatment plan with the patient. She verbalizes agreement and understanding. The patient is ready for discharge. Medical Decision Patient was screened for medical emergencies and none were found. Impression Primary Impression: Weakness Scribe Attestation The scribe's documentation has been prepared under my direction and personally reviewed by me in its entirety. I confirm that the note above accurately reflects all work, treatment, procedures, and medical decision making performed by me. Departure Information Dispostion Home / Self-Care Referrals Naveed Adam III, M.D. (PCP) Forms WORK / SCHOOL INSTRUCTIONS, HOME CARE DOCUMENTATION FORM, IMPORTANT VISIT INFORMATION Patient Instructions My [facility]
[2016-05-04] MEDS ORDERED: NRN300 PO (16:25)
[2016-05-04] MEDS ORDERED: HYDR-3419 PO (18:03)
[2016-05-31] MEDS ORDERED: FLUT1INH7 (06:17)
[2016-10-18] MEDS ORDERED: ATR25 PO (11:50)
[2016-10-18] MEDS ORDERED: CFT250 PO (12:01)
[2016-10-18] MEDS ORDERED: GABA1CAP PO (12:01)
[2016-11-26] MEDS ORDERED: CLOZ100T18 PO (06:09)
[2016-11-26] MEDS ORDERED: PERP1TAB11 PO ×2 (06:17→09:04)
[2016-11-26] MEDS ORDERED: UMEC1INH PO (06:19)
[2016-11-26] MEDS ORDERED: FLUT1INH INH (06:20)
[2016-11-26] MEDS ORDERED: DOCU100C31 PO (06:22)
[2016-11-26] MEDS ORDERED: MONT1TAB3 PO (08:47)
[2016-11-26] MEDS ORDERED: BACL1TAB PO (09:04)
[2016-11-26] MEDS ORDERED: ACET1TAB84 PO (09:04)
[2016-11-26] MEDS ORDERED: FLUT0.15 NAE (09:04)
[2016-11-26] MEDS ORDERED: NAPR1TAB9 PO (09:10)
[2016-11-26] MEDS ORDERED: VNTHFA/IN INH (10:53)
[2016-11-26] MEDS ORDERED: ATV/1 PO (10:56)
[2016-11-26] MEDS ORDERED: TAMS0.4C38 PO (11:38)
[2016-11-26] MEDS ORDERED: SENN-65 PO (12:13)
[2016-11-26] MEDS ORDERED: SPCCR30 TOP (12:13)
[2016-11-26] MEDS ORDERED: MOML PO (15:22)
[2016-11-26] MEDS ORDERED: MCLIN (15:22)
[2016-11-26] MEDS ORDERED: TRC48 PO (17:03)
[2016-11-26] MEDS ORDERED: LXP/20 PO (17:03)
[2016-11-26] MEDS ORDERED: FERR325T PO (18:03)
[2016-11-26] MEDS ORDERED: CHOL1TAB53 PO (18:12)
[2016-11-26] MEDS ORDERED: RANI150T2 PO (18:26)
== END 2016-04-04 15:02 | disposition home or self-care (01) ==
LOC: EDBD 11:16 → C.EDC 11:18
DX: R53.1 Weakness (principal); J44.9 Chronic obstructive pulmonary disease, unspecified; K21.9 Gastro-esophageal reflux disease without esophagitis; B19.20 Unspecified viral hepatitis C without hepatic coma; M81.0 Age-related osteoporosis without current pathological fracture; F20.9 Schizophrenia, unspecified; F32.9 Major depressive disorder, single episode, unspecified; F17.200 Nicotine dependence, unspecified, uncomplicated; Z90.710 Acquired absence of both cervix and uterus; Z86.718 Personal history of other venous thrombosis and embolism; Z87.81 Personal history of (healed) traumatic fracture; Z98.890 Other specified postprocedural states; Z79.01 Long term (current) use of anticoagulants; Z79.899 Other long term (current) drug therapy; Z88.8 Allergy status to other drugs, medicaments and biological substances

== ENCOUNTER 2016-04-14 04:47 | Emergency (ER) | payer OTHER ==
[~2016-04-14 04:47] MED LIST changes: +BACL10TA PO; -CLC100 PO; +ECON1POW
[2016-04-14 04:54] VITALS: TEMP 37
[2016-04-14] MEDS ORDERED: SODIUM CHLORIDE 0.9% 500ML 500 ML IV STA (05:01)
[2016-04-14] MEDS ORDERED: MoRPHine SULFATE 4 MG/ML 1 ML CARP\\VIAL IV STA (05:01)
[2016-04-14] MEDS ORDERED: ONDANSETRON INJ 2 MG/ML 2 ML VIAL IV STA (05:01)
[2016-04-14] MEDS ORDERED: OPTIRAY 320 IV PRN (05:15)
[2016-04-14] MEDS ORDERED: TRAMADOL HCL 50 MG TAB PO STA (05:35)
--- NOTE | 2016-04-14 05:41 | EMERGENCY ROOM VISIT NOTE ---
History First contact with patient: 04:57 Chief Complaint: HIP PAIN Stated Complaint: HIP AND BACK PAIN History of Present Illness The patient is a 55 year old female who presents to the Emergency Room with complaints of lower abdominal pain and right hip pain for the past day. Patient has had this problem before. Patient denies chest pain, dyspnea, fever , chills, vomiting, diarrhea. Normal bowel movement yesterday. She describes the pain as aching, ranging in severity 6 out of 10. She is on chronic narcotics. Nothing makes it better or worse. The nurse called me up and states the patient's is refusing all testing. She states she just wants her pain medication. I went back and reinterviewed the patient and Patient then changed her story and states that she does not have abdominal pain and has her chronic right hip low back pain. She states she saw pain management yesterday and was given baclofen. Patient states she only wants narcotics and would like to leave. She is refusing any testing and would like to leave. Review of Systems See HPI for pertinent positives & negatives. A total of 10 systems reviewed and were otherwise negative. Past Medical/Surgical History Medical Problems: (1) Accidental drug overdose (2) Alcohol abuse (3) Aspiration pneumonia (4) Back pain (5) Cataract (6) Chronic hepatitis C (7) Chronic obstructive lung disease (8) Chronic paranoid schizophrenia (9) Closed fracture of femur (10) COPD (chronic obstructive pulmonary disease) (11) Deep venous thrombosis (12) Depression (13) Drug abuse (14) Gastroesophageal reflux disease (15) Hepatitis C (16) Hypoxia (17) Hysterectomy (18) Opiate abuse, continuous (19) Osteoporosis (20) Past Psych Meds (21) Psychosis (22) S/P ORIF (open reduction internal fixation) fracture (23) Schizoaffective disorder (24) Seizure (25) Suicidal ideation (26) Tinea (27) Tobacco user Surgical Problems: (1) H/O colonoscopy (2) History of hysterectomy (3) S/p thoracic spinal surgery (4) S/P tonsillectomy Family History FH: lung cancer GRANDMOTHER Thyroid disorder MOTHER SISTER Social History Smoking Status: Unknown if Ever Smoked Alcohol Use: none Drug Use: other Marital Status: single Housing Status: lives with family Occupation Status: disabled Current/Historical Medications Scheduled Amantadine HCl (Amantadine HCl), 100 MG PO BID Calcitonin ([place]) (Calcitonin [place]), 1 SPRAY NA DAILY@1600 Calcium Carbonate-Vitamin D ([place] 500/200 D-3), 1 TAB PO BID Cholecalciferol (D 1000), 1,000 UNIT PO QAM Clozapine (Clozapine), 400 MG PO HS Econazole Nitrate (Econazole Nitrate Crm 1% 30 Gm), 1 APPLN TOP QID Escitalopram Oxalate (Escitalopram Oxalate), 20 MG PO QAM Fenofibrate (Fenofibrate), 48 MG PO QAM Ferrous Sulfate (Ferrous Sulfate), 325 MG PO BIDM Fluticasone Furoate-Vilanterol (Breo Ellipta), 1 PUFF INH DAILY@1600 Folic Acid (Folvite), 1 MG PO DAILY Gabapentin (Neurontin), 200 MG PO TID Montelukast Sodium (Singulair), 10 MG PO HS Omeprazole (Prilosec), 20 MG PO QAM Perphenazine (Trilafon), 12 MG PO AMHS Senna/Docusate Sod (Senokot S), 2 TAB PO DAILY Tamsulosin Hcl (Flomax), 0.4 MG PO HS Umeclidinium [place] (Incruse Ellipta), 1 PUFF INH DAILY Warfarin Sod (Jantoven), Unknown Dose PO UNKNOWN Scheduled PRN Acetaminophen (Tylenol), 1,000-1,500 MG PO Q12 PRN for RN Albuterol Hfa (Ventolin Hfa), 2 PUFFS INH QID PRN for SOB/Wheezing Baclofen (Lioresal), 10 MG PO BID PRN for Muscle Spasms Lorazepam (Lorazepam), 0.5 MG PO BID PRN for Anxiety Oxycodone Hcl (Oxycodone Hcl), 1 TAB PO Q8 PRN for Pain Miscellaneous Medications Econazole Nitrate (B[place]) (Econazole Nitrate) Allergies Coded Allergies: Haloperidol (Verified Allergy, Unknown, 04/04/16) [place] (Verified Allergy, Unknown, ., 04/04/16) Molindone (Verified Adverse Reaction, Intermediate, PT FEELS LIKE SHES "JUMPING OUT OF HER SKIN", 04/04/16) Fluphenazine (Verified Adverse Reaction, Unknown, confusion, 04/04/16) Physical Exam Vital Signs Date Time Temp Pulse Resp B/P Pulse Ox O2 Delivery O2 Flow Rate FiO2 04/14/16 04:54 37.0 104 20 127/76 94 Nasal Cannula 3.0 Physical Exam VITALS: Vitals are noted on the nurse's note and reviewed by myself. Vital signs stable. GENERAL: White female wearing oxygen, in no acute distress, nondiaphoretic, well -developed well-nourished. SKIN: The skin was without rashes, erythema, edema, or bruising. There is no tenting of the skin. Capillary reflex less than 2 seconds. HEAD: Normocephalic atraumatic. EARS: External auditory canals clear, tympanic membranes pearly guerra without erythema or effusion bilaterally. EYES: Pupils equal round and reactive to light and accommodation. Conjunctivae without injection, sclerae without icterus. Extraocular movements intact. NOSE: Patent, turbinates without inflammation or discharge. MOUTH: Mucous membranes moist. . Pharynx without erythema or exudate. Uvula midline. Airway patent. Tongue does not deviate. NECK: Supple without nuchal rigidity. No lymphadenopathy. No thyromegaly. Cervical spine is nontender. No JVD. HEART: Regular rate and rhythm without murmurs gallops or rubs. LUNGS: Clear to auscultation bilaterally without wheezes, rales or rhonchi. No dullness to percussion. No retractions or accessory muscle use. ABDOMEN: Positive bowel sounds x 4. Normal tympanic percussion. Soft, nontender, without masses or organomegaly. Swift sign negative. No guarding or rebound tenderness. MUSCULOSKELETAL: No muscle atrophy, erythema, or edema noted. No thoracic or lumbar tenderness on exam. Pelvis stable. NEURO: Patient was alert and oriented to person place and time. Normal sensation to light and sharp touch. No focal neurological deficits. Medical Decision & Procedures Laboratory Results Test 04/14/16 05:01 ED Course Prior records/ancillary studies reviewed. Triage Nursing notes reviewed. Additional history obtained from EMS. The patient's history was concerning for right hip and back pain. Differential diagnosis: Etiologies such as drug seeking behavior musculoskeletal, disc herniation, fracture, aortic disease, metastatic disease, cord compression, discitis, infection, renal colic, gastrointestinal, acute exacerbation of chronic back pain, sciatica, cauda equina, as well as others were entertained. Physical findings: As above. No focal neurologic findings noted. ER treatment provided: Ultram On reassessment the patient felt better. Diagnostics interpreted by me: Deferred This appears to be consistent with acute on chronic back pain. Patient change her story a few times. I confronted the patient about this. Patient refused Tylenol and Motrin. She is requesting narcotics. She was given one dose of Ultram and then discharged. She was informed that she received oxycodone 10 mg 90 tablets a few days ago. She told me that she went to her pain management and they gave her baclofen. Patient had no fall. There was no trauma. She was neurovascularly and neurologically intact. She is advised to follow back up with pain management. The patient's physical examination and detailed history did not reveal any red flags for back pain such as those listed in the differential diagnosis. Therefore advanced diagnostics and consultations were felt to be unwarranted. By the evaluation outlined above emergent etiologies such as fracture, aortic disease, metastatic disease, infection, renal colic, gastrointestinal, cord compression, cauda equina, as well as others were deemed relatively unlikely. The pt informed about the findings as listed above. All questions were answered. Return instructions were outlined and the patient was discharged in stable condition. Referral: The patient was referred back to PM / primary care physician for follow-up in 2 to 3 days for a recheck of the current condition. case reviewed with my Attending Medical Decision as above [place] Drug Monitoring Program Search Results: patient reviewed within database, see additional documentation (multiple narcotic prescriptions) Impression Primary Impression: Right low back pain Departure Information Referrals Naveed Adam III, M.D. (PCP) Patient Instructions My [facility]
[2016-04-14] MEDS ORDERED: [UNRECOGNIZED DRUG - CODE] PO (06:06)
[2016-04-14] MEDS ORDERED: LORA-741 PO (06:13)
[2016-04-14] MEDS ORDERED: PRED20TA PO (06:23)
[2016-04-14] MEDS ORDERED: OXYC1TAB3 PO (06:34)
[2016-04-14 06:52] VITALS: BP 134/82; PULSE 116; O2SAT 94
--- NOTE | 2016-04-14 07:50 | EMERGENCY ROOM VISIT NOTE ---
ED Visit Note First contact with patient: 04:57 I have personally seen and evaluated the patient with the PA. I agree with the diagnosis and management decisions and have been personally involved in the case. Patient was given Ultram 50 mg orally. She seems happy with this plan. Patient is due for her scheduled oxycodone 15 mg at 8:00 this morning. Her sister has possession of her medications. Please see Lois Toro PA-C's notes for further details of the history, physical and visit.
[2016-05-04] MEDS ORDERED: NRN300 PO (16:25)
[2016-05-04] MEDS ORDERED: HYDR-3419 PO (18:03)
[2016-05-31] MEDS ORDERED: FLUT1INH7 (06:17)
[2016-10-18] MEDS ORDERED: ATR25 PO (11:50)
[2016-10-18] MEDS ORDERED: CFT250 PO (12:01)
[2016-10-18] MEDS ORDERED: GABA1CAP PO (12:01)
[2016-11-26] MEDS ORDERED: CLOZ100T18 PO (06:09)
[2016-11-26] MEDS ORDERED: PERP1TAB11 PO ×2 (06:17→09:04)
[2016-11-26] MEDS ORDERED: UMEC1INH PO (06:19)
[2016-11-26] MEDS ORDERED: FLUT1INH INH (06:20)
[2016-11-26] MEDS ORDERED: DOCU100C31 PO (06:22)
[2016-11-26] MEDS ORDERED: MONT1TAB3 PO (08:47)
[2016-11-26] MEDS ORDERED: BACL1TAB PO (09:04)
[2016-11-26] MEDS ORDERED: FLUT0.15 NAE (09:04)
[2016-11-26] MEDS ORDERED: ACET1TAB84 PO (09:04)
[2016-11-26] MEDS ORDERED: NAPR1TAB9 PO (09:10)
[2016-11-26] MEDS ORDERED: VNTHFA/IN INH (10:53)
[2016-11-26] MEDS ORDERED: ATV/1 PO (10:56)
[2016-11-26] MEDS ORDERED: TAMS0.4C38 PO (11:38)
[2016-11-26] MEDS ORDERED: SENN-65 PO (12:13)
[2016-11-26] MEDS ORDERED: SPCCR30 TOP (12:13)
[2016-11-26] MEDS ORDERED: MOML PO (15:22)
[2016-11-26] MEDS ORDERED: MCLIN (15:22)
[2016-11-26] MEDS ORDERED: TRC48 PO (17:03)
[2016-11-26] MEDS ORDERED: LXP/20 PO (17:03)
[2016-11-26] MEDS ORDERED: FERR325T PO (18:03)
[2016-11-26] MEDS ORDERED: CHOL1TAB53 PO (18:12)
[2016-11-26] MEDS ORDERED: RANI150T2 PO (18:26)
== END 2016-04-14 06:55 | disposition home or self-care (01) ==
LOC: EDBD 04:47 → C.EDB 04:50
DX: M54.5 Low back pain (principal); M25.551 Pain in right hip; G89.29 Other chronic pain; J44.9 Chronic obstructive pulmonary disease, unspecified; K21.9 Gastro-esophageal reflux disease without esophagitis; M81.0 Age-related osteoporosis without current pathological fracture; B19.20 Unspecified viral hepatitis C without hepatic coma; F32.9 Major depressive disorder, single episode, unspecified; F20.9 Schizophrenia, unspecified; G40.909 Epilepsy, unspecified, not intractable, without status epilepticus; Z86.718 Personal history of other venous thrombosis and embolism; Z87.81 Personal history of (healed) traumatic fracture; Z90.710 Acquired absence of both cervix and uterus; Z98.890 Other specified postprocedural states; Z79.01 Long term (current) use of anticoagulants; Z79.899 Other long term (current) drug therapy; Z88.8 Allergy status to other drugs, medicaments and biological substances; Z80.9 Family history of malignant neoplasm, unspecified; Z84.89 Family history of other specified conditions

== ENCOUNTER 2016-04-18 07:48 | Emergency (ER) | payer OTHER ==
[~2016-04-18] VITALS: Ht 165.1 cm; Wt 76.0 kg
[~2016-04-18 07:48] MED LIST changes: -ATV5 PO; -CALC200T PO; -CLZ100 PO; -ECON1POW; +LORA-741 PO; -OXYC-164 PO; +OXYC1TAB3 PO; -PERP1TAB5 PO; +PRED20TA PO; +[UNRECOGNIZED DRUG - CODE] PO
[2016-04-18 07:57] VITALS: TEMP 36.5; Ht 165.1 cm; Wt 76.0 kg
[2016-04-18] MEDS ORDERED: CALC500C70 PO (08:06)
[2016-04-18] MEDS ORDERED: AZIT250T PO (08:06)
[2016-04-18] MEDS ORDERED: KETOROLAC TROMETHAMINE 60 MG/2 ML VIAL IM STA (08:17)
--- NOTE | 2016-04-18 09:02 | DIAGNOSTIC IMAGING REPORT ---
PELVIS 1 OR 2 VIEW ROUTINE CLINICAL HISTORY: pelvis pain pain COMPARISON: 12/19/2014 DISCUSSION: Status post bilateral hip nailing procedure. Moderate heterotopic bone formation left hip. No evidence for acetabular protrusion. The femurs appear to be intact. IMPRESSION: Status post bilateral hip nailing/pain.. No acute process. Electronically signed by: Manfred Noriega M.D. 04/18/2016 9:00 AM Dictated Date/Time: 04/18/2016 8:59 AM
--- NOTE | 2016-04-18 09:26 | EMERGENCY ROOM VISIT NOTE ---
History Report prepared by Stanley: Maria R Raya Under the Supervision of: Jodie RabagoO. First contact with patient: 07:55 Chief Complaint: BACK PAIN Stated Complaint: BACK PAIN History of Present Illness The patient is a 55 year old female who presents to the Emergency Room with complaints of persistent bilateral buttock pain starting a few weeks ago. She reports the pain is worse on the left side. The patient states that she may have been sleep walking and may have fallen last night but she is unsure. She has been taking Oxycodone without relief. She has worsening pain with movement and lying down. The patient denies fevers, chills, or any other complaints. Source of History: patient Onset: a few weeks ago Position: buttock (bilateral) Timing: other (persistent) Modifying Factors (Worsening): movement, other (lying down) Modifying Factors (Relieving): other (Oxycodone without relief) Associated Symptoms: No chills, No fevers Review of Systems See HPI for pertinent positives & negatives. A total of 10 systems reviewed and were otherwise negative. Past Medical & Surgical Medical Problems: (1) Accidental drug overdose (2) Alcohol abuse (3) Aspiration pneumonia (4) Back pain (5) Cataract (6) Chronic hepatitis C (7) Chronic obstructive lung disease (8) Chronic paranoid schizophrenia (9) Closed fracture of femur (10) COPD (chronic obstructive pulmonary disease) (11) Deep venous thrombosis (12) Depression (13) Drug abuse (14) Gastroesophageal reflux disease (15) Hepatitis C (16) Hypoxia (17) Hysterectomy (18) Opiate abuse, continuous (19) Osteoporosis (20) Past Psych Meds (21) Psychosis (22) S/P ORIF (open reduction internal fixation) fracture (23) Schizoaffective disorder (24) Seizure (25) Suicidal ideation (26) Tinea (27) Tobacco user Surgical Problems: (1) H/O colonoscopy (2) History of hysterectomy (3) S/p thoracic spinal surgery (4) S/P tonsillectomy Family History FH: lung cancer GRANDMOTHER Thyroid disorder MOTHER SISTER Social History Smoking Status: Former Smoker Alcohol Use: none Drug Use: other Marital Status: single Housing Status: lives with family Occupation Status: disabled Current/Historical Medications Scheduled Amantadine HCl (Amantadine HCl), 100 MG PO BID Azithromycin (Zithromax), 250 MG PO UD Calcitonin ([place]) (Calcitonin [place]), 1 SPRAY NA DAILY@1600 Calcium/Vitamin D (Os-[place] 500 Plus D), 1 TAB PO BID Cholecalciferol (D 1000), 1,000 UNIT PO QAM Clozapine (Clozapine), 400 MG PO HS Docusate Sodium (Docusate Sodium), 100 MG PO BID Econazole Nitrate (Econazole Nitrate Crm 1% 30 Gm), 1 APPLN TOP QID Escitalopram Oxalate (Escitalopram Oxalate), 20 MG PO QAM Fenofibrate (Fenofibrate), 48 MG PO QAM Ferrous Sulfate (Ferrous Sulfate), 325 MG PO BIDM Fluticasone Furoate-Vilanterol (Breo Ellipta), 1 PUFF INH DAILY@1600 Folic Acid (Folvite), 1 MG PO DAILY Gabapentin (Neurontin), 200 MG PO TID Montelukast Sodium (Singulair), 10 MG PO HS Omeprazole (Prilosec), 20 MG PO QAM Perphenazine (Trilafon), 12 MG PO AMPM Senna/Docusate Sod (Senokot S), 2 TAB PO DAILY Tamsulosin Hcl (Flomax), 0.4 MG PO HS Umeclidinium [place] (Incruse Ellipta), 1 PUFF INH DAILY Warfarin Sod (Jantoven), 2.5 MG PO DAILY Scheduled PRN Acetaminophen (Tylenol), 1,000-1,500 MG PO Q12 PRN for RN Albuterol Hfa (Ventolin Hfa), 2 PUFFS INH QID PRN for SOB/Wheezing Baclofen (Lioresal), 10 MG PO BID PRN for Muscle Spasms Lorazepam (Ativan), 0.5 MG PO BID PRN for Anxiety Oxycodone Ir (Roxicodone Ir), 15 MG PO Q4-6 PRN for Pain Prednisone (Prednisone), 20 MG PO PRN/UD PRN for COPD RESCUE Allergies Coded Allergies: Haloperidol (Verified Allergy, Unknown, 04/04/16) [place] (Verified Allergy, Unknown, ., 04/04/16) Molindone (Verified Adverse Reaction, Intermediate, PT FEELS LIKE SHES "JUMPING OUT OF HER SKIN", 04/04/16) Fluphenazine (Verified Adverse Reaction, Unknown, confusion, 04/04/16) Physical Exam Vital Signs Date Time Temp Pulse Resp B/P Pulse Ox O2 Delivery O2 Flow Rate FiO2 04/18/16 09:07 98 16 114/80 98 Room Air 04/18/16 07:57 36.5 109 20 126/91 91 Room Air Physical Exam CONSTITUTIONAL/VITAL SIGNS: Reviewed / noted above. GENERAL: Non-toxic in appearance. INTEGUMENTARY: Warm, dry, and [place]. HEAD: Normocephalic. EYES: without scleral icterus or trauma. ENT/OROPHARYNX: clear and moist. LYMPHADENOPATHY/NECK: Is supple without lymphadenopathy or meningismus. RESPIRATORY: Lungs clear and equal. CARDIOVASCULAR: Regular rate and rhythm. GI/ABDOMEN: Soft and nontender. No organomegaly or pulsatile mass. No rebound or guarding. Normal bowel sounds. EXTREMITIES: Warm and well perfused. BACK: No CVA tenderness. Tender to palpation over the soft tissue of the low back and buttock area. NEUROLOGICAL: Intact without focal deficits. PSYCHIATRIC: normal affect. MUSCULOSKELETAL: Normally developed with good muscle tone. Medical Decision & Procedures ER Provider Diagnostic Interpretation: X ray results and stated below per my interpretation and radiology interpretation. PELVIS 1 OR 2 VIEW ROUTINE CLINICAL HISTORY: pelvis pain pain COMPARISON: 12/19/2014 DISCUSSION: Status post bilateral hip nailing procedure. Moderate heterotopic bone formation left hip. No evidence for acetabular protrusion. The femurs appear to be intact. IMPRESSION: Status post bilateral hip nailing/pain.. No acute process. Electronically signed by: Manfred Noriega M.D. 04/18/2016 9:00 AM Dictated Date/Time: 04/18/2016 8:59 AM Medications Administered Medications (Trade) Dose Ordered Sig/Janel Route Start Time Stop Time Status Last Admin Dose Admin Ketorolac Tromethamine (Toradol Inj) 60 mg NOW STAT IM 04/18/16 08:17 04/18/16 08:19 DC 04/18/16 08:30 60 MG ED Course 0755: Previous medical records were reviewed. The patient was evaluated in room B06. A complete history and physical examination was performed. 0817: Toradol Inj 60 mg IM 0932: On reevaluation, the patient is resting comfortably. I discussed the results and findings with the patient. She verbalized agreement of the treatment plan. She was discharged home. Medical Decision Differential considered includes cauda equina syndrome, conus medullaris, spinal cord compression syndrome, peripheral nerve compression, fractures or subluxations, intra-abdominal pathology such as abdominal aortic aneurysm or kidney stones, muscle strain, transverse myelitis, spinal cord injury. This is a 55-year-old female who presents to the ED with a chief complaint of low back and buttock pain. The patient's been seen for this recently. She denies any bowel or bladder dysfunction. She denies any abdominal pains. No fevers or recent illness. Exam reveals soft tissue tenderness to the right low back and buttock area. She also reports discomfort with movement. The patient was treated with Toradol IM. X-ray of the pelvis did not show any acute abnormality. The patient was told the results of the test. She was felt to be stable for discharge. Impression Primary Impression: Back pain Scribe Attestation The scribe's documentation has been prepared under my direction and personally reviewed by me in its entirety. I confirm that the note above accurately reflects all work, treatment, procedures, and medical decision making performed by me. Departure Information Dispostion Home / Self-Care Referrals Naveed Adam III, M.D. (PCP) Forms HOME CARE DOCUMENTATION FORM, IMPORTANT VISIT INFORMATION Patient Instructions My [facility] Additional Instructions Follow-up with your doctor for further care and evaluation in 1-2 days. Return to the emergency department for worsening or new symptoms or any concerns. You have been examined and treated today on an emergency basis only. This is not a substitute for, or an effort to provide, complete comprehensive medical care. It is impossible to recognize and treat all injuries or illnesses in a single emergency department visit. It is therefore important that you follow up closely with your doctor. Call as soon as possible for an appointment.
[2016-04-18 09:53] VITALS: BP 112/79; PULSE 79; O2SAT 95
[2016-05-04] MEDS ORDERED: NRN300 PO (16:25)
[2016-05-04] MEDS ORDERED: HYDR-3419 PO (18:03)
[2016-05-31] MEDS ORDERED: FLUT1INH7 (06:17)
[2016-10-18] MEDS ORDERED: ATR25 PO (11:50)
[2016-10-18] MEDS ORDERED: CFT250 PO (12:01)
[2016-10-18] MEDS ORDERED: GABA1CAP PO (12:01)
[2016-11-26] MEDS ORDERED: CLOZ100T18 PO (06:09)
[2016-11-26] MEDS ORDERED: PERP1TAB11 PO ×2 (06:17→09:04)
[2016-11-26] MEDS ORDERED: UMEC1INH PO (06:19)
[2016-11-26] MEDS ORDERED: FLUT1INH INH (06:20)
[2016-11-26] MEDS ORDERED: DOCU100C31 PO (06:22)
[2016-11-26] MEDS ORDERED: MONT1TAB3 PO (08:47)
[2016-11-26] MEDS ORDERED: ACET1TAB84 PO (09:04)
[2016-11-26] MEDS ORDERED: BACL1TAB PO (09:04)
[2016-11-26] MEDS ORDERED: FLUT0.15 NAE (09:04)
[2016-11-26] MEDS ORDERED: NAPR1TAB9 PO (09:10)
[2016-11-26] MEDS ORDERED: VNTHFA/IN INH (10:53)
[2016-11-26] MEDS ORDERED: ATV/1 PO (10:56)
[2016-11-26] MEDS ORDERED: TAMS0.4C38 PO (11:38)
[2016-11-26] MEDS ORDERED: SENN-65 PO (12:13)
[2016-11-26] MEDS ORDERED: SPCCR30 TOP (12:13)
[2016-11-26] MEDS ORDERED: MCLIN (15:22)
[2016-11-26] MEDS ORDERED: MOML PO (15:22)
[2016-11-26] MEDS ORDERED: TRC48 PO (17:03)
[2016-11-26] MEDS ORDERED: LXP/20 PO (17:03)
[2016-11-26] MEDS ORDERED: FERR325T PO (18:03)
[2016-11-26] MEDS ORDERED: CHOL1TAB53 PO (18:12)
[2016-11-26] MEDS ORDERED: RANI150T2 PO (18:26)
== END 2016-04-18 09:54 | disposition home or self-care (01) ==
LOC: EDBD 07:48 → C.EDB 07:50
DX: M54.9 Dorsalgia, unspecified (principal); J44.9 Chronic obstructive pulmonary disease, unspecified; F20.0 Paranoid schizophrenia; B19.20 Unspecified viral hepatitis C without hepatic coma; M81.0 Age-related osteoporosis without current pathological fracture; Z87.891 Personal history of nicotine dependence; F32.9 Major depressive disorder, single episode, unspecified

== ENCOUNTER 2016-04-20 06:56 | Emergency (ER) | payer OTHER ==
[~2016-04-20] VITALS: Ht 172.7 cm; Wt 76.0 kg
[~2016-04-20 06:56] MED LIST changes: +AZIT250T PO; +CALC500C70 PO; -[UNRECOGNIZED DRUG - CODE] PO
[2016-04-20 07:06] VITALS: TEMP 37; Ht 172.7 cm; Wt 76.0 kg
--- NOTE | 2016-04-20 07:11 | EMERGENCY ROOM VISIT NOTE ---
ED Visit Note First contact with patient: 07:00 I have seen and examined this patient with Danielle Strickland and generally agree with the treatment plan as discussed. Problem List Medical Problems: (1) Accidental drug overdose Status: Resolved (2) Alcohol abuse Permanent Comment: no recent use attends AA Status: Resolved (3) Aspiration pneumonia Status: Resolved (4) Back pain Status: Chronic (5) Cataract Status: Chronic (6) Chronic hepatitis C Status: Chronic (7) Chronic obstructive lung disease Status: Chronic (8) Chronic paranoid schizophrenia Status: Chronic (9) Closed fracture of femur Permanent Comment: s/p ORIF Status: Resolved (10) COPD (chronic obstructive pulmonary disease) Status: Chronic (11) Deep venous thrombosis Status: Chronic (12) Depression Status: Chronic (13) Drug abuse Permanent Comment: narcotic addiction due to chronic pain attends NA Status: Resolved (14) Gastroesophageal reflux disease Status: Chronic (15) Hepatitis C Status: Chronic (16) Hypoxia Status: Chronic (17) Hysterectomy Status: Resolved (18) Osteoporosis Status: Chronic (19) S/P ORIF (open reduction internal fixation) fracture Permanent Comment: femur Status: Chronic (20) Schizoaffective disorder Status: Chronic (21) Seizure Status: Resolved (22) Tinea Status: Resolved (23) Tobacco user Status: Chronic Surgical Problems: (1) H/O colonoscopy Status: Chronic (2) History of hysterectomy Status: Chronic (3) S/p thoracic spinal surgery Permanent Comment: 07/07/2015; Dr. Caballero at [facility] Status: Chronic (4) S/P tonsillectomy Status: Chronic Current/Historical Medications Scheduled Amantadine HCl (Amantadine HCl), 100 MG PO BID Azithromycin (Zithromax), 250 MG PO UD Calcitonin ([place]) (Calcitonin [place]), 1 SPRAY NA DAILY@1600 Calcium/Vitamin D (Os-[place] 500 Plus D), 1 TAB PO BID Cholecalciferol (D 1000), 1,000 UNIT PO QAM Clozapine (Clozapine), 400 MG PO HS Docusate Sodium (Docusate Sodium), 100 MG PO BID Econazole Nitrate (Econazole Nitrate Crm 1% 30 Gm), 1 APPLN TOP QID Escitalopram Oxalate (Escitalopram Oxalate), 20 MG PO QAM Fenofibrate (Fenofibrate), 48 MG PO QAM Ferrous Sulfate (Ferrous Sulfate), 325 MG PO BIDM Fluticasone Furoate-Vilanterol (Breo Ellipta), 1 PUFF INH DAILY@1600 Folic Acid (Folvite), 1 MG PO DAILY Gabapentin (Neurontin), 200 MG PO TID Montelukast Sodium (Singulair), 10 MG PO HS Omeprazole (Prilosec), 20 MG PO QAM Perphenazine (Trilafon), 12 MG PO AMPM Senna/Docusate Sod (Senokot S), 2 TAB PO DAILY Tamsulosin Hcl (Flomax), 0.4 MG PO HS Umeclidinium [place] (Incruse Ellipta), 1 PUFF INH DAILY Warfarin Sod (Jantoven), 2.5 MG PO DAILY Scheduled PRN Acetaminophen (Tylenol), 1,000-1,500 MG PO Q12 PRN for RN Albuterol Hfa (Ventolin Hfa), 2 PUFFS INH QID PRN for SOB/Wheezing Baclofen (Lioresal), 10 MG PO BID PRN for Muscle Spasms Lorazepam (Ativan), 0.5 MG PO BID PRN for Anxiety Oxycodone Ir (Roxicodone Ir), 15 MG PO Q4-6 PRN for Pain Prednisone (Prednisone), 20 MG PO PRN/UD PRN for COPD RESCUE Allergies Coded Allergies: Haloperidol (Verified Allergy, Unknown, 04/04/16) [place] (Verified Allergy, Unknown, ., 04/04/16) Molindone (Verified Adverse Reaction, Intermediate, PT FEELS LIKE SHES "JUMPING OUT OF HER SKIN", 04/04/16) Fluphenazine (Verified Adverse Reaction, Unknown, confusion, 04/04/16) Vital Signs Date Time Temp Pulse Resp B/P Pulse Ox O2 Delivery O2 Flow Rate FiO2 04/20/16 07:09 108 Departure Information Referrals Naveed Adam III, M.D. (PCP) Patient Instructions My [facility]
[2016-04-20] MEDS ORDERED: KETOROLAC TROMETHAMINE 30 MG/ML VIAL IV STA (07:18)
--- NOTE | 2016-04-20 07:41 | EMERGENCY ROOM VISIT NOTE ---
History First contact with patient: 07:04 Chief Complaint: PAIN (GENERALIZED) Stated Complaint: BACK/HIP PAIN History of Present Illness The patient is a 55 year old female who presents to the Emergency Room with complaints of back pain. The patient states that she has had low back pain and upper back pain that has been chronic for her. She had neurosurgery in [place] last June. She was seen here in November and transferred to [place] for possible osteomyelitis/discitis in her back. She was treated with a PICC line for at least 6 weeks with IV vancomycin. She stated that she was reevaluated and found to not need additional surgery at that time. The patient also has a remote history of IV drug abuse. She does have a history of hepatitis C. The patient has been doing fairly well up until the last 3 days when she has had significant worsening pain in the low back. She rates her discomfort an 8/10. The patient has severe pain with movement of the legs. She reports pain, numbness, tingling and weakness. She denies any fevers. She denies any loss of bowel or bladder control. She denies any pain in her chest or trouble breathing. She denies any nausea or vomiting. The patient states that because of the pain she is going to kill herself if it doesn't get any better. Review of Systems A 10 system review of systems was completed with positives and pertinent negatives listed in the HPI. Past Medical/Surgical History Medical Problems: (1) Accidental drug overdose (2) Alcohol abuse (3) Aspiration pneumonia (4) Back pain (5) Cataract (6) Chronic hepatitis C (7) Chronic obstructive lung disease (8) Chronic paranoid schizophrenia (9) Closed fracture of femur (10) COPD (chronic obstructive pulmonary disease) (11) Deep venous thrombosis (12) Depression (13) Drug abuse (14) Gastroesophageal reflux disease (15) Hepatitis C (16) Hypoxia (17) Hysterectomy (18) Opiate abuse, continuous (19) Osteoporosis (20) Past Psych Meds (21) Psychosis (22) S/P ORIF (open reduction internal fixation) fracture (23) Schizoaffective disorder (24) Seizure (25) Suicidal ideation (26) Tinea (27) Tobacco user Surgical Problems: (1) H/O colonoscopy (2) History of hysterectomy (3) S/p thoracic spinal surgery (4) S/P tonsillectomy Family History FH: lung cancer GRANDMOTHER Thyroid disorder MOTHER SISTER Social History Smoking Status: Unknown if Ever Smoked Alcohol Use: none Drug Use: other Marital Status: single Housing Status: lives with family Occupation Status: disabled Current/Historical Medications Scheduled Amantadine HCl (Amantadine HCl), 100 MG PO BID Azithromycin (Zithromax), 250 MG PO UD Calcitonin ([place]) (Calcitonin [place]), 1 SPRAY NA DAILY@1600 Calcium/Vitamin D (Os-Michael 500 Plus D), 1 TAB PO BID Cholecalciferol (D 1000), 1,000 UNIT PO QAM Clozapine (Clozapine), 400 MG PO HS Docusate Sodium (Docusate Sodium), 100 MG PO BID Econazole Nitrate (Econazole Nitrate Crm 1% 30 Gm), 1 APPLN TOP QID Escitalopram Oxalate (Escitalopram Oxalate), 20 MG PO QAM Fenofibrate (Fenofibrate), 48 MG PO QAM Ferrous Sulfate (Ferrous Sulfate), 325 MG PO BIDM Fluticasone Furoate-Vilanterol (Breo Ellipta), 1 PUFF INH DAILY@1600 Folic Acid (Folvite), 1 MG PO DAILY Gabapentin (Neurontin), 200 MG PO TID Montelukast Sodium (Singulair), 10 MG PO HS Omeprazole (Prilosec), 20 MG PO QAM Perphenazine (Trilafon), 12 MG PO AMPM Senna/Docusate Sod (Senokot S), 2 TAB PO DAILY Tamsulosin Hcl (Flomax), 0.4 MG PO HS Umeclidinium Hazel (Incruse Ellipta), 1 PUFF INH DAILY Warfarin Sod (Jantoven), 2.5 MG PO DAILY Scheduled PRN Acetaminophen (Tylenol), 1,000-1,500 MG PO Q12 PRN for RN Albuterol Hfa (Ventolin Hfa), 2 PUFFS INH QID PRN for SOB/Wheezing Baclofen (Lioresal), 10 MG PO BID PRN for Muscle Spasms Lorazepam (Ativan), 0.5 MG PO BID PRN for Anxiety Oxycodone Ir (Roxicodone Ir), 15 MG PO Q4-6 PRN for Pain Prednisone (Prednisone), 20 MG PO PRN/UD PRN for COPD RESCUE Allergies Coded Allergies: Haloperidol (Verified Allergy, Unknown, 04/04/16) Herrin (Verified Allergy, Unknown, ., 04/04/16) Molindone (Verified Adverse Reaction, Intermediate, PT FEELS LIKE SHES "JUMPING OUT OF HER SKIN", 04/04/16) Fluphenazine (Verified Adverse Reaction, Unknown, confusion, 04/04/16) Physical Exam Vital Signs Date Time Temp Pulse Resp B/P Pulse Ox O2 Delivery O2 Flow Rate FiO2 04/20/16 16:17 92 18 123/86 100 04/20/16 16:16 92 18 123/86 100 04/20/16 14:35 93 20 112/83 96 Nasal Cannula 2.0 04/20/16 12:09 85 18 108/77 98 Nasal Cannula 2.0 04/20/16 10:44 91 14 101/70 97 Nasal Cannula 3.0 04/20/16 08:45 92 14 111/85 100 Nasal Cannula 3.0 04/20/16 08:02 100 20 100 Nasal Cannula 3.0 04/20/16 07:09 108 04/20/16 07:06 37.0 108 12 115/76 95 Room Air Physical Exam VITALS: Vitals are noted on the nurse's note and reviewed by myself. Vital signs stable. The patient is afebrile. GENERAL: This is a 55 she rolled female, in no acute distress, nondiaphoretic, well-developed well-nourished. SKIN: The skin was without rashes, erythema, edema, or bruising. There is no tenting of the skin. Capillary reflex less than 2 seconds. HEAD: Normocephalic atraumatic. EARS: The external ears are normal in appearance. EYES: Pupils equal round and reactive to light and accommodation. Conjunctivae without injection, sclerae without icterus. Extraocular movements intact. NOSE: Patent, turbinates without inflammation or discharge. MOUTH: Mucous membranes moist. Tonsils are not enlarged. Pharynx without erythema or exudate. Uvula midline. Airway patent. Tongue does not deviate. NECK: Supple without nuchal rigidity. No lymphadenopathy. No thyromegaly. Cervical spine is nontender. No JVD. HEART: Regular rate and rhythm without murmurs gallops or rubs. LUNGS: Clear to auscultation bilaterally without wheezes, rales or rhonchi. No retractions or accessory muscle use. ABDOMEN: Positive bowel sounds x 4. Soft, nontender, without masses or organomegaly. MUSCULOSKELETAL: No muscle atrophy, erythema, or edema noted. Full range of motion without joint tenderness in all extremities. Diffuse tenderness throughout the entire thoracic and lumbar spine. Normal gait. The patient has decreased strength in the bilateral lower extremities. NEURO: Patient was alert and oriented to person place and time. Normal sensation to light and sharp touch. Deep tendon reflexes 2+ throughout. No focal neurological deficits. Medical Decision & Procedures ER Provider Diagnostic Interpretation: CHEST ONE VIEW PORTABLE CLINICAL HISTORY: Diffuse pain. COMPARISON STUDY: Chest radiograph March 19, 2016. FINDINGS: There is no pneumothorax or pleural effusion cardiac size is normal. Bilateral interstitial opacities are unchanged and likely chronic. No consolidation is identified. A thoracic spine fusion is noted. Abnormal paraspinal contours within the mid to lower thoracic spine are noted. IMPRESSION: 1. No change in interstitial bilateral opacities which likely reflect chronic interstitial lung disease. 2. Abnormal paraspinal contours within the mid to lower thoracic spine. This suggests a paraspinal process. THORACIC SPINE MRI WITH AND WITHOUT CONTRAST HISTORY: Back pain. Disc at its. low back pain, radiation to legs h/o surgery, possible discitis TECHNIQUE: Multiplanar multisequence MRI of the thoracic spine was performed both before and after the intravenous administration of contrast. COMPARISON: 11/29/2015 FINDINGS: Findings again consistent with posterior laminectomy and fusion from T6 through T11 again noted. Interpedicular screws and rods are present. Old compression deformities of T8 and T10 are again noted. The T11-T12 level is again notable for destructive changes involving the vertebral bodies as well as complex fluid collections and soft tissues surrounding the T11-T12 complex. All findings are somewhat progressive compared to the prior study and are consistent with progressive discitis/osteomyelitis. There is a surrounding soft tissue component which is also progressive compared to the prior study. Remaining components of the study are stable compared to the prior exam. IMPRESSION: 1. Findings of progressive discitis and osteomyelitis at the T11-T12 level. 2. Enlarging soft tissue process surrounding the T11-T12 complex, with overall findings consistent with that of progressive osteomyelitis and discitis. 3. Destructive changes involving the T11-T12 vertebral bodies are also progressive. 4. The extensive postoperative change throughout the remainder the thoracic region is otherwise stable. 5. Although the spinal canal appears somewhat progressive bleeding narrowed compared to the prior study, exact degree of narrowing is difficult to ascertain due to metallic hardware artifact. Electronically signed by: Manfred Noriega M.D. 04/20/2016 10:36 AM Dictated Date/Time: 04/20/2016 10:24 AM [~ rep ct add3]] LUMBAR SPINE MRI WITH AND WITHOUT CONTRAST HISTORY: low back pain, radiation to legs h/o surgery, possible discitis TECHNIQUE: Multiplanar multisequence MRI of the lumbar spine was performed both before and after the intravenous administration of contrast. COMPARISON: Lumbar spine MRI 11/29/2015. FINDINGS: For the purpose of the report the L5-S1 disc space will be located on axial image 23 of 25. Grade I anterolisthesis of L4 and L5 and L5-S1. Moderate to severe disc space narrowing at L4-L5 and L5-S1. This remains unchanged. No fractures within the lumbar spine. Normal marrow signal intensity within the visualized osseous structures of the lumbar spine. The conus terminates at the T12 level. There are pedicle screws at T11. The T11-T12 disc space is partially visualized on this study. There is fluid within the T11-T12 disc space with endplate erosion and abnormal endplate signal with associated paravertebral edema and surrounding enhancement. There appears to be epidural fluid collection extending posteriorly from the disc space which is new from the prior study. This measures 13 x 5 mm and results in mild deformity of the distal thoracic spinal cord with associated mild to moderate stenosis. There may be a tiny epidural fluid collection extending posterior to the T12-L1 disc space best seen on sagittal T1 postcontrast sequence image 11 of 14. There is persistent thickening and enhancement within the epidural space at the T11-T12 level. Anterior wedging at the T12 vertebral body has also progressed. Small broad-based posterior disc bulge at L4-L5 without significant central canal narrowing. There is mild bilateral neural foraminal narrowing L4-L5. Broad-based posterior disc bulge with a focal central disc protrusion at L5-S1 without significant central canal narrowing. There is moderate bilateral neural foraminal narrowing at this level. Moderate facet degenerative changes within the lower lumbar spine. Paraspinal soft tissues within the lumbar spine are within normal limits. IMPRESSION: 1. Progressive abnormality centered at the T11-T12 disc space as described above with interval development of epidural fluid collections/abscess resulting in mild to moderate central canal narrowing at this level with mild cord deformity. There may be a tiny fluid collection/abscess extending posterior to the T12-L1 disc space. Discitis/osteomyelitis remains the diagnosis of exclusion. A pseudoarthrosis could also have a similar appearance. This is better appreciated on the same day thoracic spine MRI. 2. No change in the degenerative changes within the lower lumbar spine as described above. Laboratory Results 04/20/16 08:00 Red Blood Count 4.33, Mean Corpuscular Volume 92.8, Mean Corpuscular Hemoglobin 29.8, Mean Corpuscular Hemoglobin Concent 32.1, Mean Platelet Volume 10.2, Neutrophils (%) (Auto) 69.6, Lymphocytes (%) (Auto) 14.4, Monocytes (%) (Auto) 12.7, Eosinophils (%) (Auto) 2.9, Basophils (%) (Auto) 0.2, Neutrophils # (Auto ) 6.38, Lymphocytes # (Auto) 1.32, Monocytes # (Auto) 1.17, Eosinophils # (Auto ) 0.27, Basophils # (Auto) 0.02 04/20/16 08:00 Test 04/20/16 07:51 04/20/16 08:00 04/20/16 08:20 Bedside Glucose 127 mg/dl (70-90) White Blood Count 9.18 K/uL (4.8-10.8) Red Blood Count 4.33 M/uL (4.2-5.4) Hemoglobin 12.9 g/dL (12.0-16.0) Hematocrit 40.2 % (37-47) Mean Corpuscular Volume 92.8 fL (80-100) Mean Corpuscular Hemoglobin 29.8 pg (25-34) Mean Corpuscular Hemoglobin Concent 32.1 g/dl (32-36) Platelet Count 386 K/uL (130-400) Mean Platelet Volume 10.2 fL (7.4-10.4) Neutrophils (%) (Auto) 69.6 % Lymphocytes (%) (Auto) 14.4 % Monocytes (%) (Auto) 12.7 % Eosinophils (%) (Auto) 2.9 % Basophils (%) (Auto) 0.2 % Neutrophils # (Auto) 6.38 K/uL (1.4-6.5) Lymphocytes # (Auto) 1.32 K/uL (1.2-3.4) Monocytes # (Auto) 1.17 K/uL (0.11-0.59) Eosinophils # (Auto) 0.27 K/uL (0-0.5) Basophils # (Auto) 0.02 K/uL (0-0.2) RDW Standard Deviation 52.2 fL (36.4-46.3) RDW Coefficient of Variation 15.3 % (11.5-14.5) Immature Granulocyte % (Auto) 0.2 % Immature Granulocyte # (Auto) 0.02 K/uL (0.00-0.02) Erythrocyte Sedimentation Rate 85 mm/hr (0-21) Anion Gap 7.0 mmol/L (3-11) Est Creatinine Clear Calc Drug Dose 80.2 ml/min Estimated GFR () 97.0 Estimated GFR (Non- 83.7 BUN/Creatinine Ratio 16.7 (10-20) Calcium Level 9.9 mg/dl (8.5-10.1) Total Bilirubin 0.3 mg/dl (0.2-1) Aspartate Amino Transf (AST/SGOT) 15 U/L (15-37) Alanine Aminotransferase (ALT/SGPT) 16 U/L (12-78) Alkaline Phosphatase 117 U/L (45-117) C-Reactive Protein 3.42 mg/dl (0-0.29) Total Protein 8.4 gm/dl (6.4-8.2) Albumin 3.2 gm/dl (3.4-5.0) Globulin 5.2 gm/dl (2.5-4.0) Albumin/Globulin Ratio 0.6 (0.9-2) Thyroid Stimulating Hormone (TSH) 1.370 uIu/ml (0.300-4.500) Urine Color YELLOW Urine Appearance CLOUDY (CLEAR) Urine pH 7.0 (4.5-7.5) Urine Specific [place] 1.011 (1.000-1.030) Urine Protein NEG (NEG) Urine Glucose (UA) NEG (NEG) Urine Ketones NEG (NEG) Urine Occult Blood NEG (NEG) Urine Nitrite NEG (NEG) Urine Bilirubin NEG (NEG) Urine Urobilinogen NEG (NEG) Urine Leukocyte Esterase SMALL (NEG) Urine WBC (Auto) 1-5 /hpf (0-5) Urine RBC (Auto) 0-4 /hpf (0-4) Urine Hyaline Casts (Auto) 1-5 /lpf (0-5) Urine Epithelial Cells (Auto) 20-30 /lpf (0-5) Urine Bacteria (Auto) NEG (NEG) Urine Opiates Screen POS (NEG) Urine Methadone, Qualitative NEG (NEG) Urine Barbiturates NEG (NEG) Urine Phencyclidine (PCP) Level NEG (NEG) Ur Amphetamine/Methamphetamine NEG (NEG) MDMA (Ecstasy) Screen NEG (NEG) Urine Benzodiazepines Screen NEG (NEG) Urine Cocaine Metabolite NEG (NEG) Urine Marijuana (THC) NEG (NEG) Medications Administered Medications (Trade) Dose Ordered Sig/Janel Route Start Time Stop Time Status Last Admin Dose Admin Ketorolac Tromethamine (Toradol Inj) 30 mg NOW STAT IV 04/20/16 07:18 04/20/16 07:20 DC 04/20/16 08:37 30 MG Hydromorphone HCl (Dilaudid Inj) 1 mg NOW STAT IV 04/20/16 07:48 04/20/16 07:49 DC 04/20/16 08:34 1 MG Hydromorphone HCl (Dilaudid Inj) 0.5 mg NOW STAT IV 04/20/16 15:53 04/20/16 15:54 DC 04/20/16 16:06 0.5 MG ED Course The patient was seen and examined. Previous visits were reviewed. The patient does not have a fever or leukocytosis. Her sedimentation rate is elevated at 85 and her CRP is elevated at 3.42. Her glucose is 132. Her thyroid is within normal limits. The patient presents with worsening back pain. The patient has been in this emergency department 3 times in the recent past. She is currently taking oxycodone at home which is not controlling her pain. The patient is a poor historian. She reports severe and diffuse pain in the back. The patient was seen here in November and transferred to [facility] for discitis and osteomyelitis. She had a PICC line and IV vancomycin at that time. The patient was initially given 30 mg IV Toradol She was given 1 mg IV Dilaudid prior to MRI She was given 0.5 mg IV Dilaudid just prior to transfer I spoke with the patient's neurosurgeon, Dr. Caballero. He states that the patient does not have many surgical options and she has chronic osteomyelitis and discitis. I did verbally reviewed the MRI report with him. He recommends that she have outpatient follow-up with their office. He recommends better pain management and possibly fentanyl patch, 25 g. The patient did make suicidal statements regarding her pain. I did ask case management to begin a behavioral health assessment. They feel that she would not be accepted to . with the intractable pain and the finding of osteomyelitis and discitis. [facility] The patient may need to be admitted for intractable pain and to have better pain control as she has been here multiple times in the recent past and her pain is not controlled as an outpatient. He feels that the patient should be transferred. At this time, I spoke with my attending physician, Dr. Gonzalez. He spoke with Dr. Becker, [facility] hospitalist service, they accept the patient in transfer. The patient was also seen and examined by who agrees with the assessment and treatment plan. Medical Decision DIFFERENTIAL DIAGNOSIS: Lumbar strain, degenerative disc disease, spondylolisthesis, herniated disc, spinal stenosis, osteoporosis, fracture, cauda equina syndrome, neoplasm, infection, inflammatory arthritis, among others. [place] Drug Monitoring Program Search Results: patient reviewed within database Drug Monitoring Findings: The patient has been receiving oxycodone as an outpatient. However, she does have significant findings on her MRI of her back. Impression Primary Impression: Discitis Additional Impression: Osteomyelitis of spine Departure Information Dispostion Transfer Acute Care Facility Referrals Naveed Adam III, M.D. (PCP) Patient Instructions [facility] Problem Qualifiers Primary Impression: Discitis
--- NOTE | 2016-04-20 07:45 | DIAGNOSTIC IMAGING REPORT ---
CHEST ONE VIEW PORTABLE CLINICAL HISTORY: Diffuse pain. COMPARISON STUDY: Chest radiograph March 19, 2016. FINDINGS: There is no pneumothorax or pleural effusion cardiac size is normal. Bilateral interstitial opacities are unchanged and likely chronic. No consolidation is identified. A thoracic spine fusion is noted. Abnormal paraspinal contours within the mid to lower thoracic spine are noted. IMPRESSION: 1. No change in interstitial bilateral opacities which likely reflect chronic interstitial lung disease. 2. Abnormal paraspinal contours within the mid to lower thoracic spine. This suggests a paraspinal process. Electronically signed by: Benjamin Summers M.D. 04/20/2016 7:44 AM Dictated Date/Time: 04/20/2016 7:38 AM
[2016-04-20] MEDS ORDERED: HYDROmorphone INJ 1 MG/ML SYR IV STA (07:48)
[2016-04-20 08:37] LABS: BASO % 0.2 %; BASO ABS # 0.02 K/uL (0-0.2); COMPLETE YES; EOS % 2.9 %; HEMATOCRIT 40.2 % (37-47); IG% 0.2 %; LYMPH % 14.4 %; LYMPH ABS # 1.32 K/uL (1.2-3.4); MEAN CELL VOLUME 92.8 fL (80-100); MEAN CORPUSCULAR HEMOGLOBIN 29.8 pg (25-34); MEAN CORPUSCULAR HGB CONC 32.1 g/dl (32-36); MEAN PLATELET VOLUME 10.2 fL (7.4-10.4); MONO % 12.7 %; NEUT % 69.6 %; PLATELET COUNT 386 K/uL (130-400); RED BLOOD COUNT 4.33 M/uL (4.2-5.4); WHITE BLOOD COUNT 9.18 K/uL (4.8-10.8)
[2016-04-20 08:53] LABS: URINE APPEARANCE CLOUDY (CLEAR); URINE BILIRUBIN NEG (NEG); URINE COLOR YELLOW; URINE EPITHELIAL CELL AUTO 20-30 /lpf (0-5); URINE NITRITE NEG (NEG); URINE SPECIFIC GRAVITY 1.011 (1.000-1.030); UROBILINOGEN NEG (NEG)
[2016-04-20 08:54] LABS: BUN/CREATININE RATIO 16.7 (10-20); C-REACTIVE PROTEIN 3.42 mg/dl (0-0.29); CALCIUM 9.9 mg/dl (8.5-10.1); CREATININE 0.79 mg/dl (0.60-1.20); POTASSIUM 3.9 mmol/L (3.5-5.1)
[2016-04-20 08:54] LABS: MANUAL MICROSCOPIC REQUIRED? NO; REVIEW REQ? NO
[2016-04-20 09:04] LABS: ALB/GLOB RATIO 0.6 (0.9-2); THYROID STIMULATING HORMONE 1.37 uIu/ml (0.300-4.500)
[2016-04-20 09:30] LABS: BENZODIAZEPINE, URINE NEG (NEG); COCAINE,URINE NEG (NEG); PHENCYCLIDINE, URINE NEG (NEG)
--- NOTE | 2016-04-20 10:38 | DIAGNOSTIC IMAGING REPORT ---
THORACIC SPINE MRI WITH AND WITHOUT CONTRAST HISTORY: Back pain. Disc at its. low back pain, radiation to legs h/o surgery, possible discitis TECHNIQUE: Multiplanar multisequence MRI of the thoracic spine was performed both before and after the intravenous administration of contrast. COMPARISON: 11/29/2015 FINDINGS: Findings again consistent with posterior laminectomy and fusion from T6 through T11 again noted. Interpedicular screws and rods are present. Old compression deformities of T8 and T10 are again noted. The T11-T12 level is again notable for destructive changes involving the vertebral bodies as well as complex fluid collections and soft tissues surrounding the T11-T12 complex. All findings are somewhat progressive compared to the prior study and are consistent with progressive discitis/osteomyelitis. There is a surrounding soft tissue component which is also progressive compared to the prior study. Remaining components of the study are stable compared to the prior exam. IMPRESSION: 1. Findings of progressive discitis and osteomyelitis at the T11-T12 level. 2. Enlarging soft tissue process surrounding the T11-T12 complex, with overall findings consistent with that of progressive osteomyelitis and discitis. 3. Destructive changes involving the T11-T12 vertebral bodies are also progressive. 4. The extensive postoperative change throughout the remainder the thoracic region is otherwise stable. 5. Although the spinal canal appears somewhat progressive bleeding narrowed compared to the prior study, exact degree of narrowing is difficult to ascertain due to metallic hardware artifact. Electronically signed by: Manfred Noriega M.D. 04/20/2016 10:36 AM Dictated Date/Time: 04/20/2016 10:24 AM
--- NOTE | 2016-04-20 10:51 | DIAGNOSTIC IMAGING REPORT ---
LUMBAR SPINE MRI WITH AND WITHOUT CONTRAST HISTORY: low back pain, radiation to legs h/o surgery, possible discitis TECHNIQUE: Multiplanar multisequence MRI of the lumbar spine was performed both before and after the intravenous administration of contrast. COMPARISON: Lumbar spine MRI 11/29/2015. FINDINGS: For the purpose of the report the L5-S1 disc space will be located on axial image 23 of 25. Grade I anterolisthesis of L4 and L5 and L5-S1. Moderate to severe disc space narrowing at L4-L5 and L5-S1. This remains unchanged. No fractures within the lumbar spine. Normal marrow signal intensity within the visualized osseous structures of the lumbar spine. The conus terminates at the T12 level. There are pedicle screws at T11. The T11-T12 disc space is partially visualized on this study. There is fluid within the T11-T12 disc space with endplate erosion and abnormal endplate signal with associated paravertebral edema and surrounding enhancement. There appears to be epidural fluid collection extending posteriorly from the disc space which is new from the prior study. This measures 13 x 5 mm and results in mild deformity of the distal thoracic spinal cord with associated mild to moderate stenosis. There may be a tiny epidural fluid collection extending posterior to the T12-L1 disc space best seen on sagittal T1 postcontrast sequence image 11 of 14. There is persistent thickening and enhancement within the epidural space at the T11-T12 level. Anterior wedging at the T12 vertebral body has also progressed. Small broad-based posterior disc bulge at L4-L5 without significant central canal narrowing. There is mild bilateral neural foraminal narrowing L4-L5. Broad-based posterior disc bulge with a focal central disc protrusion at L5-S1 without significant central canal narrowing. There is moderate bilateral neural foraminal narrowing at this level. Moderate facet degenerative changes within the lower lumbar spine. Paraspinal soft tissues within the lumbar spine are within normal limits. IMPRESSION: 1. Progressive abnormality centered at the T11-T12 disc space as described above with interval development of epidural fluid collections/abscess resulting in mild to moderate central canal narrowing at this level with mild cord deformity. There may be a tiny fluid collection/abscess extending posterior to the T12-L1 disc space. Discitis/osteomyelitis remains the diagnosis of exclusion. A pseudoarthrosis could also have a similar appearance. This is better appreciated on the same day thoracic spine MRI. 2. No change in the degenerative changes within the lower lumbar spine as described above. Electronically signed by: Uriel Talley M.D. 04/20/2016 10:50 AM Dictated Date/Time: 04/20/2016 10:32 AM
[2016-04-20] MEDS ORDERED: HYDROmorphone INJ 0.5 MG/0.5 ML SYR IV STA (15:53)
[2016-04-20 16:17] VITALS: BP 123/86; PULSE 92; O2SAT 100
[2016-04-22 13:18] LABS: COD UR NEGATIVE NG/ML (CUTOFF=50); HYDROCOD UR NEGATIVE NG/ML (CUTOFF=50); HYDROMOR UR NEGATIVE NG/ML (CUTOFF=50); MORPHINE UR NEGATIVE NG/ML (CUTOFF=50); NORHYDROCODONE CONF UR NEGATIVE NG/ML (CUTOFF=50); OXYMORPH UR 338 NG/ML (CUTOFF=50)
[2016-05-04] MEDS ORDERED: NRN300 PO (16:25)
[2016-05-04] MEDS ORDERED: HYDR-3419 PO (18:03)
[2016-05-31] MEDS ORDERED: FLUT1INH7 (06:17)
[2016-10-18] MEDS ORDERED: ATR25 PO (11:50)
[2016-10-18] MEDS ORDERED: GABA1CAP PO (12:01)
[2016-10-18] MEDS ORDERED: CFT250 PO (12:01)
[2016-11-26] MEDS ORDERED: CLOZ100T18 PO (06:09)
[2016-11-26] MEDS ORDERED: PERP1TAB11 PO ×2 (06:17→09:04)
[2016-11-26] MEDS ORDERED: UMEC1INH PO (06:19)
[2016-11-26] MEDS ORDERED: FLUT1INH INH (06:20)
[2016-11-26] MEDS ORDERED: DOCU100C31 PO (06:22)
[2016-11-26] MEDS ORDERED: MONT1TAB3 PO (08:47)
[2016-11-26] MEDS ORDERED: ACET1TAB84 PO (09:04)
[2016-11-26] MEDS ORDERED: FLUT0.15 NAE (09:04)
[2016-11-26] MEDS ORDERED: BACL1TAB PO (09:04)
[2016-11-26] MEDS ORDERED: NAPR1TAB9 PO (09:10)
[2016-11-26] MEDS ORDERED: VNTHFA/IN INH (10:53)
[2016-11-26] MEDS ORDERED: ATV/1 PO (10:56)
[2016-11-26] MEDS ORDERED: TAMS0.4C38 PO (11:38)
[2016-11-26] MEDS ORDERED: SENN-65 PO (12:13)
[2016-11-26] MEDS ORDERED: SPCCR30 TOP (12:13)
[2016-11-26] MEDS ORDERED: MCLIN (15:22)
[2016-11-26] MEDS ORDERED: MOML PO (15:22)
[2016-11-26] MEDS ORDERED: LXP/20 PO (17:03)
[2016-11-26] MEDS ORDERED: TRC48 PO (17:03)
[2016-11-26] MEDS ORDERED: FERR325T PO (18:03)
[2016-11-26] MEDS ORDERED: CHOL1TAB53 PO (18:12)
[2016-11-26] MEDS ORDERED: RANI150T2 PO (18:26)
== END 2016-04-20 16:17 | disposition short-term general hospital (02) ==
LOC: EDBD 06:56 → C.EDB 06:57 → C.EDA 16:17
DX: M46.46 Discitis, unspecified, lumbar region (principal); M46.44 Discitis, unspecified, thoracic region; M46.26 Osteomyelitis of vertebra, lumbar region; M46.24 Osteomyelitis of vertebra, thoracic region; R45.851 Suicidal ideations; J44.9 Chronic obstructive pulmonary disease, unspecified; K21.9 Gastro-esophageal reflux disease without esophagitis; F32.9 Major depressive disorder, single episode, unspecified; F25.9 Schizoaffective disorder, unspecified; B18.2 Chronic viral hepatitis C; Z79.899 Other long term (current) drug therapy; Z79.01 Long term (current) use of anticoagulants; Z86.718 Personal history of other venous thrombosis and embolism; Z80.1 Family history of malignant neoplasm of trachea, bronchus and lung

== ENCOUNTER → 2016-04-27 | Outpatient (CLI) | payer OTHER ==
[~2016-04-27] MED LIST changes: +ACET1TAB84 PO; +ATR25 PO; +ATV/1 PO; +BACL1TAB PO; +BUPR100T8 PO; +BUPR150T5 PO; +CALCTAB27 PO; +CEFU1TAB33 PO; +CEFU1TAB35 PO; +CFT250 PO; +CHOL1TAB53 PO; +CLOZ100T18 PO; +DOCU100C31 PO; +FERR325T PO; +FLUT0.15 NAE; +FLUT1INH7; +FOLI1TAB7 PO; +GABA-113 PO; +GABA1CAP PO; +GABA1CAP5 PO; +GABA400C PO; +HYDR-3419 PO; +HYDR-4330 PO; +HYDR-5688 PO; +LXP/20 PO; +MAGNSUS73 PO; +MCLIN; +MOML PO; +MONT1TAB3 PO; +MORP15TA PO; +NAPR1TAB9 PO; +NF84 PO; +NRN300 PO; +NRN400 PO; +OXYC-57 PO; +PERP1TAB11 PO; +PRED20TA2 PO; +RANI150T2 PO; +SENN-65 PO; +SPCCR30 TOP; +TAMS0.4C38 PO; +TRC48 PO; +UMEC1INH PO; +VANC1INJ IV; +VNCE1000 IV; +WARF5TAB90 PO; +ZOLE5INJ INJ
[2016-04-27 08:53] LABS: BASO % 0.5 %; BASO ABS # 0.06 K/uL (0-0.2); COMPLETE YES; EOS % 3.2 %; HEMATOCRIT 39.2 % (37-47); IG% 0.3 %; LYMPH % 17.4 %; LYMPH ABS # 2.03 K/uL (1.2-3.4); MEAN CELL VOLUME 92.7 fL (80-100); MEAN CORPUSCULAR HEMOGLOBIN 29.6 pg (25-34); MEAN CORPUSCULAR HGB CONC 31.9 g/dl (32-36); MONO % 14.8 %; NEUT % 63.8 %; PLATELET COUNT 268 K/uL (130-400); RED BLOOD COUNT 4.23 M/uL (4.2-5.4); WHITE BLOOD COUNT 11.66 K/uL (4.8-10.8)
[2016-04-27 09:00] LABS: BLOOD UREA NITROGEN 16 mg/dl (7-18); C-REACTIVE PROTEIN 2.68 mg/dl (0-0.29); CALCIUM 9.3 mg/dl (8.5-10.1); CARBON DIOXIDE 23 mmol/L (21-32); CHLORIDE 107 mmol/L (98-107); CREATININE 0.64 mg/dl (0.60-1.20); GLUCOSE 130 mg/dl (70-99); POTASSIUM 4.1 mmol/L (3.5-5.1); SODIUM 141 mmol/L (136-145)
== END | disposition home or self-care (01) ==
LOC: C.LABSPEC 08:31
PROVIDERS: ATTEND Student in an Organized Health Care Education/Training Program
DX: M46.26 Osteomyelitis of vertebra, lumbar region (principal); B95.7 Other staphylococcus as the cause of diseases classified elsewhere

== ENCOUNTER 2016-04-28 06:56 | Inpatient (IN) | payer OTHER ==
[~2016-04-28] VITALS: Ht 165.1 cm; Wt 78.6 kg
[~2016-04-28 06:56] MED LIST changes: -ACET1TAB84 PO; -ATR25 PO; -ATV/1 PO; -BACL1TAB PO; -BUPR100T8 PO; -BUPR150T5 PO; -CALCTAB27 PO; -CEFU1TAB33 PO; -CEFU1TAB35 PO; -CFT250 PO; -CHOL1TAB53 PO; -CLOZ100T18 PO; -DOCU100C31 PO; -FERR325T PO; -FLUT0.15 NAE; -FLUT1INH7; -FOLI1TAB7 PO; -GABA-113 PO; -GABA1CAP PO; -GABA1CAP5 PO; -GABA400C PO; -HYDR-3419 PO; -HYDR-4330 PO; -HYDR-5688 PO; -LXP/20 PO; -MAGNSUS73 PO; -MCLIN; -MOML PO; -MONT1TAB3 PO; -MORP15TA PO; -NAPR1TAB9 PO; -NF84 PO; -NRN300 PO; -NRN400 PO; -OXYC-57 PO; -PERP1TAB11 PO; -PRED20TA2 PO; -RANI150T2 PO; -SENN-65 PO; -SPCCR30 TOP; -TAMS0.4C38 PO; -TRC48 PO; -UMEC1INH PO; -VANC1INJ IV; -VNCE1000 IV; -WARF5TAB90 PO; -ZOLE5INJ INJ
[2016-04-28] MEDS ORDERED: HYDROmorphone INJ 1 MG/ML SYR IV STA ×3 (07:13→10:34)
--- NOTE | 2016-04-28 07:19 | EMERGENCY ROOM VISIT NOTE ---
History First contact with patient: 07:04 Chief Complaint: PAIN (GENERALIZED) Stated Complaint: RIGHT SIDED PAIN History of Present Illness The patient is a 55 year old female who presents to the Emergency Room via ambulance with complaints of "right-sided pain". The patient states that she is here because of bilateral leg pain. She states she's had this before but this is worse than previous times. She states there is pain in both legs, also in the hips and low back. She notes that the pain started to worsen yesterday morning, and has been progressively worsening. She rates the pain as severe in nature. She has taken 1 mg of morphine by mouth today without relief. She follows with Dr. Caballero, of [facility] who performed surgery 2015. She specifically requests Dilaudid for her pain here today. She notes minimal abdominal pain which began about a month ago, and mild shortness of breath which is chronic, ongoing and is unchanged. She is on oxygen at home chronically for COPD. She denies any chest pain. She denies any leg weakness, numbness or tingling in genital region, or loss of control of her bowel or bladder. She denies any recent falls or trauma to the area. She states that she did follow up with the neurosurgeon at [place] [address] Caballero , and she notes he said that she does have a bone infection, and may need surgery. Her last bowel movement was 2 days ago and was normal for her. She also furnish is 1 g of vancomycin that is to be put her PICC line. She states that she was due for this at 7 AM. I informed her that I would order her 1 g here, and that we would not have to use her home supply. Review of Systems A complete 10-point Review of Systems was discussed with the patient, with pertinent positives and negatives listed in the History of Present Illness. All remaining Review of Systems questions can be considered negative unless otherwise specified. Past Medical/Surgical History Medical Problems: (1) Accidental drug overdose (2) Alcohol abuse (3) Aspiration pneumonia (4) Back pain (5) Cataract (6) Chronic hepatitis C (7) Chronic obstructive lung disease (8) Chronic paranoid schizophrenia (9) Closed fracture of femur (10) COPD (chronic obstructive pulmonary disease) (11) Deep venous thrombosis (12) Depression (13) Drug abuse (14) Gastroesophageal reflux disease (15) Hepatitis C (16) Hypoxia (17) Hysterectomy (18) Opiate abuse, continuous (19) Osteoporosis (20) Past Psych Meds (21) Psychosis (22) S/P ORIF (open reduction internal fixation) fracture (23) Schizoaffective disorder (24) Seizure (25) Suicidal ideation (26) Tinea (27) Tobacco user Surgical Problems: (1) H/O colonoscopy (2) History of hysterectomy (3) S/p thoracic spinal surgery (4) S/P tonsillectomy Family History FH: lung cancer GRANDMOTHER Thyroid disorder MOTHER SISTER Social History Smoking Status: Former Smoker Alcohol Use: none Drug Use: other Marital Status: single Housing Status: lives with family Occupation Status: disabled Current/Historical Medications Scheduled Amantadine HCl (Amantadine HCl), 100 MG PO BID Azithromycin (Zithromax), 250 MG PO UD Calcitonin (Defiance) (Calcitonin Defiance), 1 SPRAY NA DAILY@1600 Calcium/Vitamin D (Os-Michael 500 Plus D), 1 TAB PO BID Cholecalciferol (D 1000), 1,000 UNIT PO QAM Clozapine (Clozapine), 400 MG PO HS Docusate Sodium (Docusate Sodium), 100 MG PO BID Econazole Nitrate (Econazole Nitrate Crm 1% 30 Gm), 1 APPLN TOP QID Escitalopram Oxalate (Escitalopram Oxalate), 20 MG PO QAM Fenofibrate (Fenofibrate), 48 MG PO QAM Ferrous Sulfate (Ferrous Sulfate), 325 MG PO BIDM Fluticasone Furoate-Vilanterol (Breo Ellipta), 1 PUFF INH DAILY@1600 Folic Acid (Folvite), 1 MG PO DAILY Gabapentin (Neurontin), 200 MG PO TID Montelukast Sodium (Singulair), 10 MG PO HS Morphine Sulfate (Morphine Sulfate Ir), 15 MG PO Q6H Omeprazole (Prilosec), 20 MG PO QAM Perphenazine (Trilafon), 12 MG PO AMPM Senna/Docusate Sod (Senokot S), 2 TAB PO DAILY Tamsulosin Hcl (Flomax), 0.4 MG PO HS Umeclidinium [place] (Incruse Ellipta), 1 PUFF INH DAILY Warfarin Sod (Jantoven), 2.5 MG PO DAILY Scheduled PRN Acetaminophen (Tylenol), 1,000-1,500 MG PO Q12 PRN for RN Albuterol Hfa (Ventolin Hfa), 2 PUFFS INH QID PRN for SOB/Wheezing Baclofen (Lioresal), 10 MG PO BID PRN for Muscle Spasms Lorazepam (Ativan), 0.5 MG PO BID PRN for Anxiety Prednisone (Prednisone), 20 MG PO PRN/UD PRN for COPD RESCUE Allergies Coded Allergies: Haloperidol (Verified Allergy, Unknown, 04/28/16) [place] (Verified Allergy, Unknown, ., 04/28/16) Molindone (Verified Adverse Reaction, Intermediate, PT FEELS LIKE SHES "JUMPING OUT OF HER SKIN", 04/28/16) Fluphenazine (Verified Adverse Reaction, Unknown, confusion, 04/28/16) Physical Exam Vital Signs Date Time Temp Pulse Resp B/P Pulse Ox O2 Delivery O2 Flow Rate FiO2 04/28/16 18:57 106 16 117/91 96 Room Air 04/28/16 16:51 99 16 133/88 100 Room Air 04/28/16 16:21 102 04/28/16 14:41 102 20 135/84 100 04/28/16 14:27 100 04/28/16 14:26 100 Nasal Cannula 04/28/16 13:18 100 20 110/83 100 04/28/16 12:23 107 04/28/16 12:15 110 16 119/86 100 04/28/16 11:00 110 19 107/77 98 Nasal Cannula 3.0 04/28/16 10:30 108 15 100 04/28/16 10:00 115/85 04/28/16 10:00 109 15 115/85 04/28/16 09:56 120/76 04/28/16 09:00 109 17 121/71 98 Nasal Cannula 3.0 04/28/16 08:46 104 17 122/80 97 Nasal Cannula 3.0 04/28/16 07:54 104 21 99/76 96 Nasal Cannula 3.0 04/28/16 07:36 103 04/28/16 07:32 95 Nasal Cannula 3.0 04/28/16 06:59 36.7 105 18 99/82 93 Room Air Physical Exam VITAL SIGNS - Vital signs and nursing notes were reviewed. Afebrile, normotensive, tachycardic at a rate of 105 BPM, saturating on room air 93%. GENERAL - 55-year-old female appearing her stated age who is in no acute distress. Communicates well with provider and answers questions appropriately. SKIN - Without rashes. HEAD - NC/AT. EYES - Sclera anicteric. Palpebral conjunctiva pink and moist with no injection noted. EARS - No deformities of external structures noted on gross examination bilaterally. NOSE - Midline and without cyanosis. No epistaxis or purulent drainage noted. MOUTH/OROPHARYNX - Without perioral cyanosis. NECK - Neck with FROM. Supple to palpation. No meningismus. No nuchal rigidity. LUNGS - Chest wall symmetric without accessory muscle use, intercostals retractions, or central cyanosis. Normal vesicular breath sounds CTA B/L. No wheezes, rales, or rhonchi appreciated. CARDIAC - RRR with S1/S2. No murmur, rubs, or gallops appreciated. ABDOMEN - Abdominal contour without pulsations or visible masses. BS normoactive all four quadrants. No tenderness, palpable masses, hepatosplenomegaly, or ascites noted. EXTREMITIES - No clubbing or peripheral cyanosis. No pretibial edema present. Vascularly intact in the lower extremity. +5/5 strength noted in UE/LE bilaterally. NEUROLOGIC - Cranial nerves II through XII grossly intact. Sensory intact to light touch throughout. PSYCH - A&Ox3 and cooperates fully with examiner. Pt is very pleasant and interacts well with examiner. Medical Decision & Procedures Laboratory Results 04/28/16 07:30 Red Blood Count 3.97, Mean Corpuscular Volume 91.7, Mean Corpuscular Hemoglobin 29.7, Mean Corpuscular Hemoglobin Concent 32.4, Mean Platelet Volume 10.3, Neutrophils (%) (Auto) 66.3, Lymphocytes (%) (Auto) 17.1, Monocytes (%) (Auto) 12.0, Eosinophils (%) (Auto) 3.7, Basophils (%) (Auto) 0.4, Neutrophils # (Auto ) 7.20, Lymphocytes # (Auto) 1.85, Monocytes # (Auto) 1.30, Eosinophils # (Auto ) 0.40, Basophils # (Auto) 0.04 04/28/16 07:30 Test 04/28/16 07:30 04/28/16 07:41 04/28/16 07:48 04/28/16 09:50 White Blood Count 10.84 K/uL (4.8-10.8) Red Blood Count 3.97 M/uL (4.2-5.4) Hemoglobin 11.8 g/dL (12.0-16.0) Hematocrit 36.4 % (37-47) Mean Corpuscular Volume 91.7 fL (80-100) Mean Corpuscular Hemoglobin 29.7 pg (25-34) Mean Corpuscular Hemoglobin Concent 32.4 g/dl (32-36) Platelet Count 261 K/uL (130-400) Mean Platelet Volume 10.3 fL (7.4-10.4) Neutrophils (%) (Auto) 66.3 % Lymphocytes (%) (Auto) 17.1 % Monocytes (%) (Auto) 12.0 % Eosinophils (%) (Auto) 3.7 % Basophils (%) (Auto) 0.4 % Neutrophils # (Auto) 7.20 K/uL (1.4-6.5) Lymphocytes # (Auto) 1.85 K/uL (1.2-3.4) Monocytes # (Auto) 1.30 K/uL (0.11-0.59) Eosinophils # (Auto) 0.40 K/uL (0-0.5) Basophils # (Auto) 0.04 K/uL (0-0.2) RDW Standard Deviation 52.0 fL (36.4-46.3) RDW Coefficient of Variation 15.4 % (11.5-14.5) Immature Granulocyte % (Auto) 0.5 % Immature Granulocyte # (Auto) 0.05 K/uL (0.00-0.02) Est Creatinine Clear Calc Drug Dose 98.6 ml/min Estimated GFR () 114.5 Estimated GFR (Non- 98.8 BUN/Creatinine Ratio 22.0 (10-20) Calcium Level 9.3 mg/dl (8.5-10.1) Total Bilirubin 0.6 mg/dl (0.2-1) Aspartate Amino Transf (AST/SGOT) 28 U/L (15-37) Alanine Aminotransferase (ALT/SGPT) 22 U/L (12-78) Alkaline Phosphatase 105 U/L (45-117) Total Protein 7.7 gm/dl (6.4-8.2) Albumin 3.1 gm/dl (3.4-5.0) Globulin 4.6 gm/dl (2.5-4.0) Albumin/Globulin Ratio 0.7 (0.9-2) Bedside Hemoglobin 12.2 g/dl (12.0-16.0) Bedside Hematocrit 36 % (37-47) Bedside Sodium 145 mEq/L (135-144) Bedside Potassium 3.5 mEq/L (3.3-5.0) Bedside Chloride 103 mEq/L (101-112) Bedside Total CO2 27 mEq/l (24-31) Anion Gap 19.0 mmol/L (16-25) Bedside Blood Urea Nitrogen 15 mg/dl (7-18) Bedside Creatinine 0.7 mg/dl (0.6-1.3) Bedside Glucose (other) 123 mg/dl (70-99) Bedside Ionized Calcium (Hansa) 1.15 mmol/l (1.12-1.32) Bedside Lactic Acid Venous 0.91 mmol/L (0.90-1.70) Urine Color YELLOW Urine Appearance CLOUDY (CLEAR) Urine pH 6.5 (4.5-7.5) Urine Specific [place] 1.010 (1.000-1.030) Urine Protein NEG (NEG) Urine Glucose (UA) NEG (NEG) Urine Ketones NEG (NEG) Urine Occult Blood NEG (NEG) Urine Nitrite NEG (NEG) Urine Bilirubin NEG (NEG) Urine Urobilinogen NEG (NEG) Urine Leukocyte Esterase TRACE (NEG) Urine WBC (Auto) 1-5 /hpf (0-5) Urine RBC (Auto) 0-4 /hpf (0-4) Urine Hyaline Casts (Auto) 1-5 /lpf (0-5) Urine Epithelial Cells (Auto) >30 /lpf (0-5) Urine Bacteria (Auto) NEG (NEG) Test 04/28/16 11:09 04/28/16 19:07 Bedside Prothrombin Time INR 1.9 (0.9-1.1) Medications Administered Medications (Trade) Dose Ordered Sig/Janel Route Start Time Stop Time Status Last Admin Dose Admin Hydromorphone HCl (Dilaudid Inj) 1 mg NOW STAT IV 04/28/16 07:13 04/28/16 07:16 DC 04/28/16 07:34 1 MG Vancomycin HCl (Vancomycin 1gm/ 270ml Nss) 1 gm NOW STAT IV 04/28/16 07:26 04/28/16 07:28 DC 04/28/16 07:54 1 GM Hydromorphone HCl (Dilaudid Inj) 1 mg NOW STAT IV 04/28/16 08:34 04/28/16 08:35 DC 04/28/16 08:41 1 MG Hydromorphone HCl (Dilaudid Inj) 1 mg NOW STAT IV 04/28/16 10:34 04/28/16 10:35 DC 04/28/16 10:46 1 MG Amantadine HCl (Symmetrel Cap) 100 mg NOW STAT PO 04/28/16 13:28 04/28/16 13:34 DC 04/28/16 14:14 100 MG Calcium Carbonate (oS-Michael 500 TAB) 1,250 mg BID STAT PO 04/28/16 13:28 04/28/16 13:34 DC 04/28/16 14:16 1,250 MG Docusate Sodium (coLACE CAP) 100 mg NOW STAT PO 04/28/16 13:28 04/28/16 13:34 DC 04/28/16 13:56 100 MG Escitalopram Oxalate (Lexapro Tab) 20 mg NOW STAT PO 04/28/16 13:28 04/28/16 13:34 DC 04/28/16 14:15 20 MG Fenofibrate (Tricor Tab) 48 mg QAM STAT PO 04/28/16 13:28 04/28/16 13:34 DC 04/28/16 14:17 48 MG Ferrous Sulfate (Feosol Tab) 325 mg NOW STAT PO 04/28/16 13:28 04/28/16 13:34 DC 04/28/16 14:15 325 MG Folic Acid (Folvite Tab) 1 mg NOW STAT PO 04/28/16 13:28 04/28/16 13:34 DC 04/28/16 14:16 1 MG Perphenazine (Trilafon Tab) 12 mg NOW STAT PO 04/28/16 13:28 04/28/16 13:34 DC 04/28/16 14:13 12 MG Cholecalciferol (Vitamin D Tab) 1,000 inter.unit NOW STAT PO 04/28/16 13:28 04/28/16 13:34 DC 04/28/16 14:17 1,000 INTER.UNIT Oxycodone/ Acetaminophen (Percocet 5-325mg Tab) 1 tab NOW STAT PO 04/28/16 13:34 04/28/16 13:35 DC 04/28/16 13:57 1 TAB Gabapentin (Neurontin Cap) 200 mg TODAY@1330 PO 04/28/16 13:30 04/28/16 14:00 DC 04/28/16 14:41 200 MG Baclofen (Lioresal Tab) 10 mg NOW STAT PO 04/28/16 15:11 04/28/16 15:12 DC 04/28/16 15:24 10 MG Lorazepam (Ativan Tab) 0.5 mg NOW STAT PO 04/28/16 15:11 04/28/16 15:12 DC 04/28/16 15:24 0.5 MG Oxycodone HCl (Roxicodone Immediate Rel Tab) 10 mg NOW STAT PO 04/28/16 16:34 04/28/16 16:36 DC 04/28/16 17:04 10 MG Medical Decision Patient was seen and evaluated as above. I extensively reviewed her previous visits. Patient presents via ambulance with what appears to be an acute exacerbation of her chronic back pain. With this exacerbation, there is bilateral leg pain. I was not able to appreciate any deficits upon exam. Patient's vital signs were stable. She was afebrile. Her PICC line was accessed, and labs were drawn as above. Point care lactic was obtained as she did have a history of discitis in the past. This was within normal limits. Patient was placed on oxygen while here, as she normally uses 3 L of oxygen at home. She was resting comfortably here but did ask for pain medication. She specifically asked for Dilaudid. She was checked in the [place] drug monitoring system. Previous MRI that was performed on April 19 reveals an abscess, and she was transferred to [facility] at that time. I attempted to contact the surgeon who had seen the patient most previously but I was told that they were out of the office. I then spoke with the physician front office assistant, Shiloh Drew PA-C, who notes that the patient had a needle biopsy via CAT scan on April 11. She also states that the patient was offered surgery for the of this month but declined. The patient's next appointment is on the of this month in [place]. The patient was discharged there on morphine 15 mg every 6 as needed for pain. I was informed that I may increase the Neurontin and baclofen if need be. The patient is also to follow up with her family doctor for potential continued pain medication. It was stated they do not feel that the patient at this time needs sent to [place]. The case was thoroughly discussed with my clearing supervisor, ED attending physician, Dr. Boyer. The patient at this time appears to have a slight leukocytosis, which is decreased from previous visit. She was given 1 g of vancomycin here as well as her normal morning medications. The patient was given a total of 3 mg of Dilaudid here for her pain spanning her stay. She continued to request additional pain medication, and inquired about the dosage of each medication. I did not comfortable providing her any more of the Dilaudid therefore moved to [facility]. She tolerated this well. She then asked for more pain medication after period of time. She was then given 10 mg of OxyIR as I again do not feel comfortable providing her with more Dilaudid. The patient was thoroughly evaluated by my attending as well. The patient at one point did state to a member of our staff that she was suicidal. I then went to evaluate the patient and the patient denied any suicidal ideations or thoughts to harm herself. She does note that she feels depressed because of the pain she is in. She denied this at 1320. She had a full psychiatric evaluation here in the emergency department, please refer to further documentation regarding this. The patient' s did not appear to be a candidate for 3 S., and was declined admission by [facility]. It was decided the patient may be able to go home however the patient stated that her pain was too unbearable to manage at home. I then consult the hospitalist regarding her admission. I spoke with Dr. Shaver. Please refer to further hospital documentation regarding her stay. I do believe that further management here in the hospital is warranted. Patient's blood work reveals slight leukocytosis at 10.4, and anemia at 3.97 and 11.8 the blood cells and hemoglobin respectively. Patient's point care INR was elevated at 1.9. Patient's CMP revealed a slightly high sodium at 145, chloride high at 108, point care glucose at 113 and 123 respectively. Albumin globulin were decreased and elevated respectively. Urine does not reveal any evidence of urinary tract infection. The patient notes that she does not have any chest pain, and she is slightly short of breath of which is not normal for her as she does have COPD and is typically on 3 L of oxygen at home. I do not suspect any acute cause of the shortness of breath or tachycardia at this time. With the INR being 1.9, I do not suspect any spontaneous bleed causing any retroperitoneal leading her pain. She is to follow-up with the surgeon in [place] on the . Please refer further evaluation and documentation by hospital staff here regarding her stay. In the evaluation treatment of this patient following differential diagnoses were entertained: Retroperitoneal bleed, discitis, sepsis, fracture, malingering , among others. [place] Drug Monitoring Program Search Results: patient reviewed within database, see additional documentation Impression Primary Impression: Back pain Additional Impression: Anemia Departure Information Dispostion Admitted as an inpatient Condition FAIR Referrals Naveed Adam III, M.D. (PCP) Patient Instructions [facility] Problem Qualifiers Primary Impression: Back pain Back pain location: low back pain Chronicity: chronic Back pain laterality : bilateral Sciatica presence: with sciatica Additional Impression:
[2016-04-28] MEDS ORDERED: VANCOMYCIN 1GM/270ML NSS IV STA (07:26)
[2016-04-28] MEDS ORDERED: MORP15TA PO (07:43)
[2016-04-28 07:45] LABS: BASO % 0.4 %; BASO ABS # 0.04 K/uL (0-0.2); COMPLETE YES; EOS % 3.7 %; HEMATOCRIT 36.4 % (37-47); IG% 0.5 %; LYMPH % 17.1 %; LYMPH ABS # 1.85 K/uL (1.2-3.4); MEAN CELL VOLUME 91.7 fL (80-100); MEAN CORPUSCULAR HEMOGLOBIN 29.7 pg (25-34); MEAN CORPUSCULAR HGB CONC 32.4 g/dl (32-36); MEAN PLATELET VOLUME 10.3 fL (7.4-10.4); NEUT % 66.3 %; PLATELET COUNT 261 K/uL (130-400); RED BLOOD COUNT 3.97 M/uL (4.2-5.4); WHITE BLOOD COUNT 10.84 K/uL (4.8-10.8)
[2016-04-28 08:03] LABS: CALCIUM 9.3 mg/dl (8.5-10.1); CREATININE 0.66 mg/dl (0.60-1.20); POTASSIUM 3.5 mmol/L (3.5-5.1)
[2016-04-28 08:06] LABS: ALB/GLOB RATIO 0.7 (0.9-2)
[2016-04-28 10:01] LABS: ISTAT CREATININE 0.7 mg/dl (0.6-1.3); ISTAT HEMOGLOBIN 12.2 g/dl (12.0-16.0); ISTAT IONIZED CALCIUM 1.15 mmol/l (1.12-1.32)
[2016-04-28 10:18] LABS: MANUAL MICROSCOPIC REQUIRED? NO; REVIEW REQ? NO; URINE APPEARANCE CLOUDY (CLEAR); URINE BILIRUBIN NEG (NEG); URINE COLOR YELLOW; URINE EPITHELIAL CELL AUTO >30 /lpf (0-5); URINE NITRITE NEG (NEG); URINE PH 6.5 (4.5-7.5); UROBILINOGEN NEG (NEG); ZZUR CULT IF INDIC CLEAN CATCH NO
[2016-04-28] MEDS ORDERED: FENOFIBRATE 48 MG TAB PO STA (13:28)
[2016-04-28] MEDS ORDERED: ESCITALOPRAM OXALATE 20 MG TAB PO STA (13:28)
[2016-04-28] MEDS ORDERED: PERPHENAZINE 2 MG TAB PO STA (13:28)
[2016-04-28] MEDS ORDERED: DOCUSATE SODIUM 100 MG CAP PO STA (13:28)
[2016-04-28] MEDS ORDERED: AMANTADINE HCL 100 MG CAP PO STA (13:28)
[2016-04-28] MEDS ORDERED: GABAPENTIN 600 MG TAB PO STA (13:28)
[2016-04-28] MEDS ORDERED: CHOLECALCIFEROL 1000 INTER.UNIT TAB PO STA (13:28)
[2016-04-28] MEDS ORDERED: CALCIUM CARBONATE 1250MG TAB PO STA (13:28)
[2016-04-28] MEDS ORDERED: FERROUS SULFATE 325 MG TAB PO STA (13:28)
[2016-04-28] MEDS ORDERED: GABAPENTIN 100 MG CAP PO SCH (13:30)
[2016-04-28] MEDS ORDERED: OXYCODONE/ACETAMINOPHEN 5-325 TAB PO STA (13:34)
[2016-04-28] MEDS ORDERED: BACLOFEN 10 MG TAB PO STA (15:11)
[2016-04-28] MEDS ORDERED: LORAZEPAM 0.5 MG TAB PO STA (15:11)
[2016-04-28] MEDS ORDERED: OXYCODONE HCL IR 5 MG TAB (IMMEDIATE RELEASE) PO STA (16:34)
--- NOTE | 2016-04-28 17:43 | EMERGENCY ROOM VISIT NOTE ---
ED Visit Note First contact with patient: 07:04 55-year-old female well-known to me here with severe back pain. The patient carries a diagnosis of osteomyelitis/discitis. Patient has been treated at [facility] for this problem and is scheduled to be re-seen by them May 09. The patient was fully evaluated by Hesham De La Cruz PA-C. Please see his note. I also independently evaluated the patient. The patient also has been very depressed and was evaluated by mental health. We considered multiple options for this patient including admission to [address] [place] [address] and as an observation patient here. The patient feels that she is unable to return home because she cannot walk. The case was discussed with the [facility] hospitalist.
[2016-04-28] MEDS ORDERED: ALBUTEROL HFA 8 GM INHALER INH PRN (18:45)
[2016-04-28] MEDS ORDERED: SODIUM CHLORIDE 0.9% 1000ML 1,000 ML IV SCH (19:15)
[2016-04-28] MEDS ORDERED: HYDROmorphone INJ 1 MG/ML SYR IV PRN (19:15)
[2016-04-28] MEDS ORDERED: MAGNESIUM HYDROXIDE SUSP 30 ML UDC PO PRN (19:15)
[2016-04-28] MEDS ORDERED: BISACODYL 5 MG TABEC PO PRN (19:15)
[2016-04-28] MEDS ORDERED: ZOLPIDEM TARTRATE 5 MG TAB PO PRN (19:15)
[2016-04-28] MEDS ORDERED: ONDANSETRON INJ 2 MG/ML 2 ML VIAL IV PRN (19:15)
[2016-04-28] MEDS ORDERED: OXYCODONE/ACETAMINOPHEN 5-325 TAB PO PRN (19:15)
[2016-04-28] MEDS ORDERED: ALUMINUM/MAGNESIUM/SIMETH (MAALOX MAX) 30 ML UDC PO PRN (19:15)
[2016-04-28] MEDS ORDERED: LORAZEPAM 2 MG/ML 1 ML VIAL IV PRN (19:15)
[2016-04-28 19:45] VITALS: BP 117/84; TEMP 37; O2SAT 98; Ht 165.1 cm; Wt 78.6 kg
[2016-04-28] MEDS ORDERED: IV FLUIDS COMPLETED PRN (19:45)
[2016-04-28] MEDS ORDERED: VNCE1000 IV (19:50)
[2016-04-28] MEDS ORDERED: VANC1INJ IV (19:52)
[2016-04-28] MEDS ORDERED: NF84 PO (20:00)
[2016-04-28 20:01] VITALS: BP 117/84; PULSE 103; TEMP 37; O2SAT 99
[2016-04-28] MEDS ORDERED: MAGNSUS73 PO (20:05)
[2016-04-28] MEDS ORDERED: VANCOMYCIN CONSULT ACTIVE PRN (20:15)
--- NOTE | 2016-04-28 20:18 | Pharmacy Progress Note ---
Pharmacy Antibiotic Consult Date of Service: Apr 28, 2016. Pharmacy Dosing Scope Pharmacy is consulted to initiate vancomycin IV dosing therapy, order appropriate labs and adjust drug dose/frequency. Subjective The patient is a 55 year old female admitted on Apr 28, 2016 at 18:43 for pain management. She is currently being treated with vancomycin as an outpatient for a coag negative staph discitis. This started 04/21/16 at [facility]. She was previously managed as an outpatient with vancomycin 1 gm IV q12 with doses at 8 am and 8 pm. A previous trough was 15.5 mcg/mL on 04/28/16 (draw appropriately). Previously, trough was 19.9 mcg/mL on 04/23/16. Objective Height (Feet): 5 Height (Inches): 5.00 Weight (Kilograms): 78.600 Lab Results (24hrs): Laboratory Tests Test 04/28/16 07:30 BUN/Creatinine Ratio 22.0 Blood Urea Nitrogen 15 mg/dl Creatinine 0.66 mg/dl White Blood Count 10.84 K/uL Red Blood Count 3.97 M/uL Hemoglobin 11.8 g/dL Hematocrit 36.4 % Mean Corpuscular Volume 91.7 fL Mean Corpuscular Hemoglobin 29.7 pg Mean Corpuscular Hemoglobin Concent 32.4 g/dl Platelet Count 261 K/uL Mean Platelet Volume 10.3 fL Neutrophils (%) (Auto) 66.3 % Lymphocytes (%) (Auto) 17.1 % Monocytes (%) (Auto) 12.0 % Eosinophils (%) (Auto) 3.7 % Basophils (%) (Auto) 0.4 % Neutrophils # (Auto) 7.20 K/uL Lymphocytes # (Auto) 1.85 K/uL Monocytes # (Auto) 1.30 K/uL Eosinophils # (Auto) 0.40 K/uL Basophils # (Auto) 0.04 K/uL Assessment & Plan Continue home regimen of vancomycin 1000 mg IV q12 hours at 8 am and 8 pm. Recheck vancomycin trough prior to 0800 dose on 04/30/16. Goal is 15-20 mcg/mL for a discitis. Pharmacy will continue to follow and will adjust dose/frequency as necessary. Thank you
[2016-04-28] MEDS ORDERED: DOCUSATE SODIUM 100 MG CAP PO SCH (21:00)
[2016-04-28] MEDS ORDERED: CALCIUM 600MG + VIT D 400 IU TAB PO SCH (21:00)
[2016-04-28] MEDS ORDERED: HEPARIN IV LOW DOSE NO BOLUS SCH (21:53)
[2016-04-28] MEDS ORDERED: HEPARIN SOD 5000 UNIT/0.5 ML CARP SQ SCH (22:00)
[2016-04-28] MEDS ORDERED: OPTIRAY 320 IV PRN (22:00)
--- NOTE | 2016-04-28 22:01 | Progress Note ---
Progress Note Date of Service Apr 28, 2016. Progress Note ATTENDING NOTE : pt seen and examined, in agreement with H&P by Aleyda Schmid 55 yo F with complex hx of chronic abdominal pain, discitis , osteomyelitis, prior hx of DVT presented with intractable back pain recently discharged from [facility] -has PICC line, on IV Vancomycin for MRSA infection in back /osteomyelitis pt's main complain is ongoing pain on lower extremity Rt leg > left , swelling unable to ambulate due to intractable pain D Dimer elevated > 1000 found to be tachycardic INR 1.9 P/E: GEN : chronically ill appearing , very anxious HEENT ; sclera non icteric Lungs : CTA HT : tachycardic ABDOMEN : soft, non tender EXT : + 2-3 bilateral lower ext edema + markedly tender Ext : no focal neurological deficit A/p : CHRONIC LOW BACK PAIN : due to lumber spinal discitis /osteomyelitis hx of chronic narcotic pain meds abuse on Morphine sulfate PO 15 mg Q 6hrs -continued ER Discussed pain management with [facility] [place] asked to increase Neurontin and Baclofen dose Neurontin dose increased to 300 mg TID ( as on 200 mg TID ) , Baclofen scheduled dose 20 mg TID pt has been asking for IV Dilaudid frequently pain management consulted to adjust pain meds LUMBER SPINE DISCITIS /OSTEOMYELITIS : Dx with vertebral osteomyelitis s/p bx in 11/2015 Culture + ve staph non-aureus. completed 6 weeks of IV vancomycin on 01/10/16, 1 Recently hospitalized at [facility] for chronic low back/ bilateral legs pain and weakness after MRI at [facility] showed progressive discitis and osteomyelitis at the T11-T12 level. Had CT guided bx of lesions. Biopsy specimen + ve for MRSA pt was discharged 3 days ago on 04/25/16 with vancomycin via PICC pt is continued on IV Vancomycin blood culture ordered ID eval requested ELEVATED D DIMER /LOWER EXT PAIN /TACHYCARDIA : D dimer markedly elevated -has underling chronic infection presents with increased swelling and pain of bilat lower ext limited mobility /bed bound for intractable back pain High risk for thromboembolic event prior hx of DVT INR 1.9 lower ext Doppler , CTA of chest ordered pt will continue with PO Coumadin IV heparin bridge till INR > 2 PARANOID SCHIZOPHRENIA : cont Clozaril denies of any auditory hallucination FULL CODE : DISPOSITION : PT/OT eval prior to discharge for marked ambulatory dysfunction will need continued ID eval in [facility] neurosurgery eval scheduled in [facility] on 05/12/16
[2016-04-28] MEDS: VANCOMYCIN INJ 1,000 MG in SODIUM CHLORIDE 0.9% 250ML 250 ML IV SCH (22:02)
--- NOTE | 2016-04-28 22:10 | History and Physical ---
History & Physical Date & Time of Service: Apr 28, 2016 at 20:02 Chief Complaint: Back Pain Primary Care Physician: Naveed Adam III, M.D. History of Present Illness Source: patient, clinic records, hospital records This is a 55 y/o female with PMH listed below who presents to ED with intractable back pain. Pt has hx of T8-10 compression fracture s/p T6-11 laminectomy and fixation and resection of intraspinal extradural lesion 06/[address] Caballero. She was treated for vertebral osteomyelitis s/p bx in 11/2015 treated with vancomycin x 6 weeks completed 01/10/16, 11/29 cx growing staph non- aureus. Pt was recently hospitalized at [facility] for chronic low back/ bilateral legs pain and weakness after MRI at [facility] showed progressive discitis and osteomyelitis at the T11-T12 level. She was seen by neurosurgery who recommended against surgery at that time. She underwent CT guided bx of lesions. Cx was positive for staph non aureus resistant to methicillin. Pt was placed on vancomycin. She was evaluated by ID who recommended surgery for source control with timing to be determined by neurosurgery. She was discharged 3 days ago on 04/25/16 with vancomycin via PICC and morphine sulfate 15 mg q6 prn. She has an appointment with neurosurgery on 05/09/2016. She was instructed to f/u with ID in [place] in 3-4 weeks. Pt now presents to the ER for increase in her chronic pain upon waking up this morning. No recent fall. She took 1 dose of morphine at home but it did not relieve her pain. She rates her pain 8/10. She states Dilaudid helped her in ER. She reports associated bilateral leg weakness. Pt reports inability to ambulate secondary to pain. Denies paresthesias in the groin or legs. She notes chronic urinary incontinence and retention which is unchanged. She reports chronic constipation with last BM 2 days ago. She reports chronic cough and SOB which are unchanged. She reports hot sweats at home but afebrile when she checks her temp at home. No chills. States mood has been up and down but not currently feeling depressed. Denies suicidal ideation or hallucinations. Past Medical/Surgical History Medical Problems: (1) Accidental drug overdose Status: Resolved (2) Alcohol abuse Permanent Comment: no recent use attends Status: Resolved (3) Aspiration pneumonia Status: Resolved (4) Back pain Status: Chronic (5) Cataract Status: Chronic (6) Chronic hepatitis C Status: Chronic (7) Chronic obstructive lung disease Status: Chronic (8) Chronic paranoid schizophrenia Status: Chronic (9) Closed fracture of femur Permanent Comment: s/p ORIF Status: Resolved (10) COPD (chronic obstructive pulmonary disease) Status: Chronic (11) Deep venous thrombosis Status: Chronic (12) Depression Status: Chronic (13) Drug abuse Permanent Comment: narcotic addiction due to chronic pain attends NA Status: Resolved (14) Gastroesophageal reflux disease Status: Chronic (15) Hepatitis C Status: Chronic (16) Hypoxia Status: Chronic (17) Hysterectomy Status: Resolved (18) Osteoporosis Status: Chronic (19) S/P ORIF (open reduction internal fixation) fracture Permanent Comment: femur Status: Chronic (20) Schizoaffective disorder Status: Chronic (21) Seizure Status: Resolved (22) Tinea Status: Resolved (23) Tobacco user Status: Chronic Surgical Problems: (1) H/O colonoscopy Status: Chronic (2) History of hysterectomy Status: Chronic (3) S/p thoracic spinal surgery Permanent Comment: 07/07/2015; Dr. Caballero at [facility] Status: Chronic (4) S/P tonsillectomy Status: Chronic Family History FH: lung cancer GRANDMOTHER Thyroid disorder MOTHER SISTER Social History Smoking Status: Former Smoker Alcohol Use: denies recent alcohol use Drug Use: other (hx prior drug abuse, states clean for several years) Marital Status: single Housing status: lives with family (sister and mother) Occupational Status: disabled Immunizations History of Influenza Vaccine: N/A Influenza Vaccine Date: Dec 03, 2012 History of Tetanus Vaccine?: utd Tetanus Immunization Date: Nov 22, 2006 History of Pneumococcal: Yes Pneumococcal Date: Dec 03, 2010 History of Hepatitis B Vaccine: Yes Hepatitis Immunization Date: Dec 03, 1997 Multi-Drug Resistant Organisms History of MDRO: Yes Type of MDRO: MRSA Allergies Coded Allergies: Haloperidol (Verified Allergy, Unknown, 04/28/16) [place] (Verified Allergy, Unknown, ., 04/28/16) Molindone (Verified Adverse Reaction, Intermediate, PT FEELS LIKE SHES "JUMPING OUT OF HER SKIN", 04/28/16) Fluphenazine (Verified Adverse Reaction, Unknown, confusion, 04/28/16) Home Medications Scheduled Amantadine HCl (Amantadine HCl), 100 MG PO BID Calcitonin ([place]) (Calcitonin [place]), 1 SPRAY NA DAILY@1600 Calcium Carbonate (Calcium Carbonate), 1 TAB PO BID Cholecalciferol (D 1000), 1,000 UNIT PO QAM Clozapine (Clozapine), 400 MG PO HS Docusate Sodium (Docusate Sodium), 100 MG PO BID Econazole Nitrate (Econazole Nitrate Crm 1% 30 Gm), 1 APPLN TOP QID Escitalopram Oxalate (Escitalopram Oxalate), 20 MG PO QAM Fenofibrate (Fenofibrate), 48 MG PO QAM Ferrous Sulfate (Ferrous Sulfate), 325 MG PO BIDM Fluticasone Furoate-Vilanterol (Breo Ellipta), 1 PUFF INH DAILY@1600 Folic Acid (Folvite), 1 MG PO DAILY Gabapentin (Neurontin), 200 MG PO TID Montelukast Sodium (Singulair), 10 MG PO HS Morphine Sulfate (Morphine Sulfate Ir), 15 MG PO Q6H Omeprazole (Prilosec), 20 MG PO QAM Perphenazine (Trilafon), 12 MG PO AMPM Senna/Docusate Sod (Senokot S), 2 TAB PO DAILY Tamsulosin Hcl (Flomax), 0.4 MG PO HS Umeclidinium [place] (Incruse Ellipta), 1 PUFF INH DAILY Vancomycin HCl in Sodium Chlor (Vancomycin Hydrochloride/ 1-0.9 gm/150Ml-%), 1 GM IV Q12 Warfarin Sod (Jantoven), 2.5 MG PO DAILY Scheduled PRN Acetaminophen (Tylenol), 1,000 MG PO Q12 PRN for Pain Baclofen (Lioresal), 10 MG PO BID PRN for Muscle Spasms Lorazepam (Ativan), 0.5 MG PO BID PRN for Anxiety Magnesium Hydroxide (Milk of Magnesia 400 mg/5Ml), 1 DOSE PO DAILY PRN for Constipation Physical Exam Vital Signs Date Time Temp Pulse Resp B/P Pulse Ox O2 Delivery O2 Flow Rate FiO2 04/28/16 18:57 106 16 117/91 96 Room Air 04/28/16 16:51 99 16 133/88 100 Room Air 04/28/16 16:21 102 04/28/16 14:41 102 20 135/84 100 04/28/16 14:27 100 04/28/16 14:26 100 Nasal Cannula 04/28/16 13:18 100 20 110/83 100 04/28/16 12:23 107 04/28/16 12:15 110 16 119/86 100 04/28/16 11:00 110 19 107/77 98 Nasal Cannula 3.0 04/28/16 10:30 108 15 100 04/28/16 10:00 115/85 04/28/16 10:00 109 15 115/85 04/28/16 09:56 120/76 04/28/16 09:00 109 17 121/71 98 Nasal Cannula 3.0 04/28/16 08:46 104 17 122/80 97 Nasal Cannula 3.0 04/28/16 07:54 104 21 99/76 96 Nasal Cannula 3.0 04/28/16 07:36 103 04/28/16 07:32 95 Nasal Cannula 3.0 04/28/16 06:59 36.7 105 18 99/82 93 Room Air General Appearance: WD/WN, + pertinent finding (mildly anxious) Head: normocephalic, atraumatic Eyes: normal inspection, sclerae normal ENT: hearing grossly normal Neck: supple, trachea midline Respiratory/Chest: lungs clear, normal breath sounds, no respiratory distress Cardiovascular: no murmur, + tachycardia Abdomen/GI: normal bowel sounds, non tender, soft Back: + pertinent finding (small dressing over prior thoracic biopsy site. no erythema noted. was unable to tolerate being on her side long enough for me do a full examination of her back. stated she needed to stop exam secondary to pain. negative straight leg raise bilaterally) Neurologic/Psych: alert, + pertinent finding (mildly anxious. sensation to light touch grossly intact BLLE. able to flex/ extend bilateral ankles 5/5 but unable to lift bilateral legs off the bed secondary to pain. ) Skin: normal color, warm/dry Diagnostics Laboratory Results Results Past 24 Hours Test 04/28/16 07:30 04/28/16 07:41 04/28/16 07:48 04/28/16 09:50 Range/Units White Blood Count 10.84 4.8-10.8 K/uL Red Blood Count 3.97 4.2-5.4 M/uL Hemoglobin 11.8 12.0-16.0 g/dL Hematocrit 36.4 37-47 % Mean Corpuscular Volume 91.7 80-100 fL Mean Corpuscular Hemoglobin 29.7 25-34 pg Mean Corpuscular Hemoglobin Concent 32.4 32-36 g/dl Platelet Count 261 130-400 K/uL Mean Platelet Volume 10.3 7.4-10.4 fL Neutrophils (%) (Auto) 66.3 % Lymphocytes (%) (Auto) 17.1 % Monocytes (%) (Auto) 12.0 % Eosinophils (%) (Auto) 3.7 % Basophils (%) (Auto) 0.4 % Neutrophils # (Auto) 7.20 1.4-6.5 K/uL Lymphocytes # (Auto) 1.85 1.2-3.4 K/uL Monocytes # (Auto) 1.30 0.11-0.59 K/uL Eosinophils # (Auto) 0.40 0-0.5 K/uL Basophils # (Auto) 0.04 0-0.2 K/uL RDW Standard Deviation 52.0 36.4-46.3 fL RDW Coefficient of Variation 15.4 11.5-14.5 % Immature Granulocyte % (Auto) 0.5 % Immature Granulocyte # (Auto) 0.05 0.00-0.02 K/uL Sodium Level 144 136-145 mmol/L Potassium Level 3.5 3.5-5.1 mmol/L Chloride Level 108 98-107 mmol/L Carbon Dioxide Level 26 21-32 mmol/L Anion Gap 10.0 19.0 16-25 mmol/L Blood Urea Nitrogen 15 7-18 mg/dl Creatinine 0.66 0.60-1.20 mg/dl Est Creatinine Clear Calc Drug Dose 98.6 ml/min Estimated GFR () 114.5 Estimated GFR (Non- 98.8 BUN/Creatinine Ratio 22.0 10-20 Random Glucose 113 70-99 mg/dl Calcium Level 9.3 8.5-10.1 mg/dl Total Bilirubin 0.6 0.2-1 mg/dl Aspartate Amino Transf (AST/SGOT) 28 15-37 U/L Alanine Aminotransferase (ALT/SGPT) 22 12-78 U/L Alkaline Phosphatase 105 45-117 U/L Total Protein 7.7 6.4-8.2 gm/dl Albumin 3.1 3.4-5.0 gm/dl Globulin 4.6 2.5-4.0 gm/dl Albumin/Globulin Ratio 0.7 0.9-2 Bedside Hemoglobin 12.2 12.0-16.0 g/dl Bedside Hematocrit 36 37-47 % Bedside Sodium 145 135-144 mEq/L Bedside Potassium 3.5 3.3-5.0 mEq/L Bedside Chloride 103 101-112 mEq/L Bedside Total CO2 27 24-31 mEq/l Bedside Blood Urea Nitrogen 15 7-18 mg/dl Bedside Creatinine 0.7 0.6-1.3 mg/dl Bedside Glucose (other) 123 70-99 mg/dl Bedside Ionized Calcium (Hansa) 1.15 1.12-1.32 mmol/l Bedside Lactic Acid Venous 0.91 0.90-1.70 mmol/L Urine Color YELLOW Urine Appearance CLOUDY CLEAR Urine pH 6.5 4.5-7.5 Urine Specific [place] 1.010 1.000-1.030 Urine Protein NEG NEG Urine Glucose (UA) NEG NEG Urine Ketones NEG NEG Urine Occult Blood NEG NEG Urine Nitrite NEG NEG Urine Bilirubin NEG NEG Urine Urobilinogen NEG NEG Urine Leukocyte Esterase TRACE NEG Urine WBC (Auto) 1-5 0-5 /hpf Urine RBC (Auto) 0-4 0-4 /hpf Urine Hyaline Casts (Auto) 1-5 0-5 /lpf Urine Epithelial Cells (Auto) >30 0-5 /lpf Urine Bacteria (Auto) NEG NEG Test 04/28/16 11:09 04/28/16 19:07 Range/Units Bedside Prothrombin Time INR 1.9 0.9-1.1 Impression Assessment and Plan Pt seen in collaboration with Dr. Dick. Please see her documentation for assessment and plan. ATTENDING NOTE : pt seen and examined, in agreement with H&P by Aleyda BECERRIL C 55 yo F with complex hx of chronic abdominal pain, discitis , osteomyelitis, prior hx of DVT presented with intractable back pain recently discharged from [place] , [facility] -has PICC line, on IV Vancomycin for MRSA infection in back /osteomyelitis pt's main complain is ongoing pain on lower extremity Rt leg > left , swelling unable to ambulate due to intractable pain D Dimer elevated > 1000 found to be tachycardic INR 1.9 P/E: GEN : chronically ill appearing , very anxious HEENT ; sclera non icteric Lungs : CTA HT : tachycardic ABDOMEN : soft, non tender EXT : + 2-3 bilateral lower ext edema + markedly tender Ext : no focal neurological deficit A/p : CHRONIC LOW BACK PAIN : due to lumber spinal discitis /osteomyelitis hx of chronic narcotic pain meds abuse on Morphine sulfate PO 15 mg Q 6hrs -continued ER Discussed pain management with [facility] asked to increase Neurontin and Baclofen dose Neurontin dose increased to 300 mg TID ( as on 200 mg TID ) , Baclofen scheduled dose 20 mg TID pt has been asking for IV Dilaudid frequently pain management consulted to adjust pain meds LUMBER SPINE DISCITIS /OSTEOMYELITIS : Dx with vertebral osteomyelitis s/p bx in 11/2015 Culture + ve staph non-aureus. completed 6 weeks of IV vancomycin on 01/10/16, 1 Recently hospitalized at [facility] for chronic low back/ bilateral legs pain and weakness after MRI at [facility] showed progressive discitis and osteomyelitis at the T11-T12 level. Had CT guided bx of lesions. Biopsy specimen + ve for MRSA pt was discharged 3 days ago on 04/25/16 with vancomycin via PICC pt is continued on IV Vancomycin blood culture ordered ID eval requested ELEVATED D DIMER /LOWER EXT PAIN /TACHYCARDIA : D dimer markedly elevated -has underling chronic infection presents with increased swelling and pain of bilat lower ext limited mobility /bed bound for intractable back pain High risk for thromboembolic event prior hx of DVT INR 1.9 lower ext Doppler , CTA of chest ordered pt will continue with PO Coumadin IV heparin bridge till INR > 2 PARANOID SCHIZOPHRENIA : cont Clozaril denies of any auditory hallucination FULL CODE : DISPOSITION : PT/OT eval prior to discharge for marked ambulatory dysfunction will need continued ID eval in [facility] neurosurgery eval scheduled in [facility] on 05/12/16 Level of Care Med/Surg Resuscitation Status FULL RESUSCITATION VTE Prophylaxis VTE Risk Assessment Done? Y/N: Yes Risk Level: Moderate Given or contraindicated: Warfarin (Coumadin)
[2016-04-28] MEDS: DOCUSATE SODIUM 100 MG CAP PO SCH (22:34)
[2016-04-28] MEDS: BACLOFEN 10 MG TAB PO SCH (22:37)
[2016-04-28] MEDS: CLOZAPINE 100 MG TAB PO SCH (22:40)
[2016-04-28] MEDS: TAMSULOSIN HCL 0.4 MG CAP PO SCH (22:41)
[2016-04-28] MEDS: ECONAZOLE NITRATE 1% CRM 15 GM TUBE EXT SCH (22:41)
[2016-04-28] MEDS: CALCIUM CARBONATE 1250MG TAB PO SCH (22:42)
[2016-04-28] MEDS: GABAPENTIN 300 MG CAP PO SCH (22:42)
[2016-04-28] MEDS: MONTELUKAST SOD 10 MG TAB PO SCH (22:42)
[2016-04-28] MEDS: PERPHENAZINE 2 MG TAB PO SCH (22:43)
[2016-04-28] MEDS: AMANTADINE HCL 100 MG CAP PO SCH (22:43)
[2016-04-28 22:47] LABS: BASO % 0.5 %; BASO ABS # 0.05 K/uL (0-0.2); EOS % 3.2 %; HEMATOCRIT 34.8 % (37-47); IG% 0.5 %; LYMPH % 20.6 %; LYMPH ABS # 2.28 K/uL (1.2-3.4); MEAN CELL VOLUME 92.1 fL (80-100); MEAN CORPUSCULAR HEMOGLOBIN 29.4 pg (25-34); MEAN PLATELET VOLUME 10.4 fL (7.4-10.4); MONO % 12.9 %; NEUT % 62.3 %; PLATELET COUNT 268 K/uL (130-400); RED BLOOD COUNT 3.78 M/uL (4.2-5.4); WHITE BLOOD COUNT 11.05 K/uL (4.8-10.8)
[2016-04-28 22:52] VITALS: BP 118/74; PULSE 98; TEMP 36.9; O2SAT 96
[2016-04-28 22:55] LABS: COMPLETE YES; INR 1.4 (0.9-1.1); MEAN CORPUSCULAR HGB CONC 31.9 g/dl (32-36); PARTIAL THROMBOPLASTIN RATIO 1.3; PROTHROMBIN TIME (PATIENT) 15.3 SECONDS (9.0-12.0)
--- NOTE | 2016-04-28 23:40 | DIAGNOSTIC IMAGING REPORT ---
ULTRASOUND BILATERAL LOWER EXTREMITY VENOUS CLINICAL HISTORY: Leg pain and swelling. COMPARISON STUDY: Left lower extremity venous ultrasound dated 04/12/2014. TECHNIQUE: Real-time, grayscale, and color Doppler sonography of the deep veins of the right and left lower extremity was performed from the inguinal crease to the calf. Compression and augmentation were utilized. FINDINGS: There is no sonographic evidence of deep venous thrombosis identified in the right or left lower extremity. The common femoral, superficial femoral, and popliteal veins are patent and normally compressible bilaterally. The greater saphenous vein and the profunda femoris vein at the junction with the common femoral vein are clear in both legs. The visualized calf veins are patent bilaterally. IMPRESSION: There is no sonographic evidence of deep venous thrombosis identified in the right or left lower extremity. Electronically signed by: Hubert Ferreira M.D. 04/28/2016 11:39 PM Dictated Date/Time: 04/28/2016 11:31 PM
[2016-04-29] MEDS: HEPARIN 25,000 UNIT/500ML D5W 500 ML IV PRN ×7 (00:12→23:11)
[2016-04-29] MEDS: MoRPHine SULFATE IR 15 MG TAB (IMMEDIATE RELEASE) PO SCH ×4 (00:23→18:18)
[2016-04-29 05:58] LABS: BASO % 0.6 %; BASO ABS # 0.06 K/uL (0-0.2); COMPLETE YES; EOS % 4.4 %; HEMATOCRIT 33.9 % (37-47); IG% 0.5 %; LYMPH % 23.8 %; LYMPH ABS # 2.46 K/uL (1.2-3.4); MEAN CELL VOLUME 90.9 fL (80-100); MEAN CORPUSCULAR HEMOGLOBIN 28.7 pg (25-34); MEAN CORPUSCULAR HGB CONC 31.6 g/dl (32-36); MONO % 13.1 %; NEUT % 57.6 %; PLATELET COUNT 263 K/uL (130-400); RED BLOOD COUNT 3.73 M/uL (4.2-5.4); WHITE BLOOD COUNT 10.34 K/uL (4.8-10.8)
[2016-04-29 06:10] VITALS: BP 112/76; PULSE 87; O2SAT 97
[2016-04-29 06:10] LABS: INR 1.4 (0.9-1.1); PARTIAL THROMBOPLASTIN RATIO 1.4; PROTHROMBIN TIME (PATIENT) 14.9 SECONDS (9.0-12.0)
[2016-04-29 06:34] LABS: BUN/CREATININE RATIO 20.6 (10-20); CALCIUM 8.7 mg/dl (8.5-10.1); CREATININE 0.54 mg/dl (0.60-1.20); POTASSIUM 3.7 mmol/L (3.5-5.1)
[2016-04-29] MEDS ORDERED: HEPARIN IV BOLUS 4,500 UNIT in SYRINGE 0 ML IV ONE ×2 (07:00→18:15)
[2016-04-29] MEDS: VANCOMYCIN INJ 1,000 MG in SODIUM CHLORIDE 0.9% 250ML 250 ML IV SCH ×2 (07:43→21:06)
[2016-04-29 08:06] VITALS: BP 115/76; PULSE 89; TEMP 37.1; O2SAT 97
[2016-04-29 08:23] LABS: PARTIAL THROMBOPLASTIN RATIO > 11.0
[2016-04-29] MEDS ORDERED: NALOXONE HCL 0.4 MG/1 ML VIAL/CARP ONE (08:27)
[2016-04-29] MEDS ORDERED: NURSING VERBAL MED ORDER ONE ×2 (08:45→09:00)
--- NOTE | 2016-04-29 09:13 | Progress Note ---
Internal Med Progress Note Date of Service: Apr 29, 2016. Provider Documentation: SUBJECTIVE: Patient is seen and examined at bedside. She is very drowsy but easily awakes and is oriented and answers to questions appropriately. Vital signs are stable. Complains of back pain and b/l leg pain. "When can I get my pain medicine". Pupils are pinpoint, given a dose of naloxone. More awake after the dose. Planned to get CT to r/o PE today. OBJECTIVE: Vital Signs-as noted below Physical Exam: General Appearance:Chronically ill appearing, no apparent distress, +drowsy Head: normocephalic, Atraumatic Eyes: EOMI, PERRL Neck: supple, Trachea midline Respiratory/Chest: Normal breath sounds, CTA, No accessory muscle use Cardiovascular: S1, S2, No murmur Abdomen/GI:Soft, Non tender, Bowel sounds present Extremities/Musculoskelatal:normal inspection, B/L LE edema, tender Neurologic/Psych:AAOX3, Complete neuro exam could not be performed as patient is drowsy Skin: normal color, warm Lab data as noted below. ASSESSMENT & PLAN: CHRONIC LOW BACK PAIN : Secondary to lumber spinal discitis /osteomyelitis H/O chronic narcotic pain meds abuse Continue Morphine sulfate PO 15 mg Q 6hrs PRN ER Discussed pain management with [facility] Avni Advised to increase Neurontin and Baclofen dose Neurontin dose increased to 300 mg TID ( as on 200 mg TID ) , Baclofen scheduled dose 20 mg TID Pain management consulted Hold IV Pain meds for now since patient is drowsy LUMBER SPINE DISCITIS /OSTEOMYELITIS : Dx with vertebral osteomyelitis s/p bx in 11/2015 Culture + ve staph non-aureus. completed 6 weeks of IV vancomycin on 01/10/[address] [facility] for chronic low back/ bilateral legs pain and weakness after MRI at [facility] showed progressive discitis and osteomyelitis at the T11-T12 level. Biopsy specimen + ve for MRSA pt was discharged 3 days ago on 04/25/16 with vancomycin via PICC Continued IV Vancomycin Follow up blood culture ID consulted ELEVATED D DIMER /LOWER EXT PAIN /TACHYCARDIA : D dimer markedly elevated: Patient has underling chronic infection Increased swelling and pain of bilat lower ext High risk for DVT secondary to limited mobility secondary to intractable back pain H/O DVT INR 1.4: continue to monitor LE Doppler: Negative for DVT CTA to r/o PE: pending Continue PO Coumadin and IV heparin bridge till INR > 2 Monitor INR PARANOID SCHIZOPHRENIA : continue Clozaril denies of any auditory hallucination H/O Hep C Stable COPD: Continue inhalers Duonebs PRN on chronic oxygen at baseline CODE STATUS: FULL CODE DISPOSITION : PT/OT May need placement Consult director learning services Needs follow up with neurosurgery scheduled in [facility] on 05/12/16 Vital Signs: Date Time Temp Pulse Resp B/P Pulse Ox O2 Delivery O2 Flow Rate FiO2 04/29/16 08:06 37.1 89 18 115/76 97 Nasal Cannula 2.0 04/29/16 07:41 Nasal Cannula 2.0 04/29/16 06:10 87 112/76 97 Nasal Cannula 2.0 04/29/16 00:00 Room Air 04/28/16 22:52 36.9 98 18 118/74 96 Nasal Cannula 2.0 04/28/16 20:01 37.0 103 18 117/84 99 Nasal Cannula 2.0 04/28/16 19:45 37.0 18 117/84 98 Nasal Cannula 2.0 04/28/16 18:57 106 16 117/91 96 Room Air 04/28/16 16:51 99 16 133/88 100 Room Air 04/28/16 16:21 102 04/28/16 14:41 102 20 135/84 100 04/28/16 14:27 100 04/28/16 14:26 100 Nasal Cannula Lab Results: Results Past 24 Hours Test 04/28/16 20:40 04/28/16 22:30 04/29/16 05:47 04/29/16 05:56 Range/Units D-Dimer 1010 0-500 ug/L FEU White Blood Count 11.05 10.34 4.8-10.8 K/uL Red Blood Count 3.78 3.73 4.2-5.4 M/uL Hemoglobin 11.1 10.7 12.0-16.0 g/dL Hematocrit 34.8 33.9 37-47 % Mean Corpuscular Volume 92.1 90.9 80-100 fL Mean Corpuscular Hemoglobin 29.4 28.7 25-34 pg Mean Corpuscular Hemoglobin Concent 31.9 31.6 32-36 g/dl Platelet Count 268 263 130-400 K/uL Mean Platelet Volume 10.4 10.0 7.4-10.4 fL Neutrophils (%) (Auto) 62.3 57.6 % Lymphocytes (%) (Auto) 20.6 23.8 % Monocytes (%) (Auto) 12.9 13.1 % Eosinophils (%) (Auto) 3.2 4.4 % Basophils (%) (Auto) 0.5 0.6 % Neutrophils # (Auto) 6.89 5.97 1.4-6.5 K/uL Lymphocytes # (Auto) 2.28 2.46 1.2-3.4 K/uL Monocytes # (Auto) 1.43 1.35 0.11-0.59 K/uL Eosinophils # (Auto) 0.35 0.45 0-0.5 K/uL Basophils # (Auto) 0.05 0.06 0-0.2 K/uL RDW Standard Deviation 52.9 52.1 36.4-46.3 fL RDW Coefficient of Variation 15.5 15.6 11.5-14.5 % Immature Granulocyte % (Auto) 0.5 0.5 % Immature Granulocyte # (Auto) 0.05 0.05 0.00-0.02 K/uL Prothrombin Time 15.3 14.9 9.0-12.0 SECONDS Prothromb Time International Ratio 1.4 1.4 0.9-1.1 Activated Partial Thromboplast Time 33.9 36.6 21.0-31.0 SECONDS Partial Thromboplastin Ratio 1.3 1.4 Sodium Level 145 136-145 mmol/L Potassium Level 3.7 3.5-5.1 mmol/L Chloride Level 108 98-107 mmol/L Carbon Dioxide Level 30 21-32 mmol/L Anion Gap 7.0 3-11 mmol/L Blood Urea Nitrogen 11 7-18 mg/dl Creatinine 0.54 0.60-1.20 mg/dl Est Creatinine Clear Calc Drug Dose 120.5 ml/min Estimated GFR () 122.3 Estimated GFR (Non- 105.5 BUN/Creatinine Ratio 20.6 10-20 Random Glucose 87 70-99 mg/dl Calcium Level 8.7 8.5-10.1 mg/dl Bedside Glucose 87 70-90 mg/dl Test 04/29/16 07:40 04/29/16 08:45 04/29/16 09:55 Range/Units Activated Partial Thromboplast Time > 300.0 104.6 21.0-31.0 SECONDS Partial Thromboplastin Ratio > 11.0 4.0 Urine Color YELLOW Urine Appearance CLEAR CLEAR Urine pH 7.0 4.5-7.5 Urine Specific [place] 1.026 1.000-1.030 Urine Protein NEG NEG Urine Glucose (UA) NEG NEG Urine Ketones NEG NEG Urine Occult Blood NEG NEG Urine Nitrite NEG NEG Urine Bilirubin NEG NEG Urine Urobilinogen NEG NEG Urine Leukocyte Esterase NEG NEG Urine Opiates Screen POS NEG Urine Methadone, Qualitative NEG NEG Urine Barbiturates NEG NEG Urine Phencyclidine (PCP) Level NEG NEG Ur Amphetamine/Methamphetamine NEG NEG MDMA (Ecstasy) Screen NEG NEG Urine Benzodiazepines Screen NEG NEG Urine Cocaine Metabolite NEG NEG Urine Marijuana (THC) NEG NEG Microbiology Results 04/28/16 Blood Culture, Received Pending 04/28/16 Blood Culture, Received Pending
--- NOTE | 2016-04-29 09:31 | DIAGNOSTIC IMAGING REPORT ---
CT ANGIOGRAM OF THE CHEST CLINICAL HISTORY: Tachycardia. COMPARISON STUDY: Chest CT scans dated 11/29/2015 and 11/02/2012. CT scan of the thoracic spine dated 11/29/2015. TECHNIQUE: Following the IV administration of 91 cc of Optiray 320, CT angiogram of the chest was performed from the upper abdomen to the thoracic inlet utilizing the pulmonary embolus protocol. Images are reviewed in the axial, sagittal, and coronal planes. 3-D MIPS images are created and assessed. IV contrast was administered without complication. The examination is degraded by motion artifact. FINDINGS: Thyroid: Imaged portions of the thyroid gland are normal in size and attenuation. A 12 mm low-attenuation nodule is noted in the left lobe. Thoracic aorta: There is atherosclerotic calcification of the thoracic aorta, which is normal in caliber and demonstrates standard 3-vessel arch anatomy. No dissection is seen. Pulmonary vasculature: The pulmonary trunk is normal in caliber. There are no filling defects identified in main, lobar, or segmental pulmonary branches to suggest pulmonary embolus. Heart: The heart is normal in size and configuration, and without pericardial effusion. Lungs and pleural spaces: Chronic interstitial thickening and groundglass opacities throughout both lungs with subpleural reticulation are unchanged from prior studies. There is no evidence of superimposed airspace consolidation. Trace pleural effusions are noted The trachea and central airways are clear. Mediastinum: There is no mediastinal lymphadenopathy. Gifty: Clear. Axillae: There is no axillary lymphadenopathy. Upper abdomen: There is a small hiatal hernia. Calcified gallstones are identified. Hepatic steatosis is observed. Skeletal structures: The skeletal structures are osteopenic. No lytic or blastic bony lesions are seen. There are healed right-sided rib fractures. Again seen are postoperative changes from laminectomy and posterior fusion from T6 through T11. Severe compression deformities of T8 and T10 are again noted, and there is fragmentation of the T11 and T12 vertebral bodies. Significant paravertebral soft tissue thickening is again seen at this level. Mild compression deformities are again seen involving T3 and T4. IMPRESSION: 1. There is no evidence of pulmonary embolus in the main, lobar, or segmental pulmonary arteries. 2. There is no airspace consolidation typical for pneumonia. Trace pleural effusions are identified. 3. Chronic interstitial/fibrotic changes throughout both lungs are unchanged from 11/29/2015 but progressive from 11/02/2012. 4. Extensive destructive and postoperative changes are again seen in the mid to lower thoracic spine. There is significant paravertebral soft tissue thickening around the lower thoracic region, greatest at T11-T12. This is overall similar in appearance to the 11/29/[address] This could potentially represent a developing pseudoarthrosis. Chronic osteomyelitis would be impossible to exclude. Clinical correlation will be essential. Electronically signed by: Hubert Ferreira M.D. 04/29/2016 9:30 AM Dictated Date/Time: 04/29/2016 9:17 AM
[2016-04-29 10:24] LABS: URINE APPEARANCE CLEAR (CLEAR); URINE BILIRUBIN NEG (NEG); URINE COLOR YELLOW; URINE NITRITE NEG (NEG); URINE SPECIFIC GRAVITY 1.026 (1.000-1.030); UROBILINOGEN NEG (NEG); ZZUR CULT IF INDIC CLEAN CATCH NO
[2016-04-29 10:25] LABS: MANUAL MICROSCOPIC REQUIRED? NO; REVIEW REQ? NO
[2016-04-29] MEDS: GABAPENTIN 300 MG CAP PO SCH ×3 (10:34→21:00)
[2016-04-29] MEDS: FERROUS SULFATE 325 MG TAB PO SCH ×2 (10:34→18:18)
[2016-04-29] MEDS: FENOFIBRATE 48 MG TAB PO SCH (10:35)
[2016-04-29] MEDS: PERPHENAZINE 2 MG TAB PO SCH ×2 (10:35→21:00)
[2016-04-29] MEDS: AMANTADINE HCL 100 MG CAP PO SCH ×2 (10:36→21:00)
[2016-04-29] MEDS: PANTOprazole SOD 40 MG TAB PO SCH (10:36)
[2016-04-29] MEDS: CHOLECALCIFEROL 1000 INTER.UNIT TAB PO SCH (10:36)
[2016-04-29] MEDS: DOCUSATE SODIUM/SENNA 50/8.6MG TAB PO SCH (10:36)
[2016-04-29] MEDS: CALCIUM CARBONATE 1250MG TAB PO SCH ×2 (10:36→21:00)
[2016-04-29] MEDS: FLUTICASONE/SALMETEROL 250/50 (ADVAIR) 14 PUFF/1 INHALER INH SCH ×2 (10:37→13:03)
[2016-04-29] MEDS: BACLOFEN 10 MG TAB PO SCH ×3 (10:37→21:00)
[2016-04-29] MEDS: DOCUSATE SODIUM 100 MG CAP PO SCH ×2 (10:37→21:00)
[2016-04-29] MEDS: ECONAZOLE NITRATE 1% CRM 15 GM TUBE EXT SCH ×4 (10:38→21:07)
[2016-04-29] MEDS: ESCITALOPRAM OXALATE 20 MG TAB PO SCH (10:39)
[2016-04-29 10:41] LABS: BENZODIAZEPINE, URINE NEG (NEG); COCAINE,URINE NEG (NEG); PHENCYCLIDINE, URINE NEG (NEG)
[2016-04-29] MEDS ORDERED: HYDROmorphone INJ 0.5 MG/0.5 ML SYR IV PRN (12:00)
[2016-04-29] MEDS: OXYCODONE/ACETAMINOPHEN 5-325 TAB PO PRN (14:16)
[2016-04-29 14:54] VITALS: BP 117/82; PULSE 106; TEMP 37; O2SAT 98
[2016-04-29] MEDS ORDERED: WARFARIN SOD 2.5 MG TAB PO SCH (16:00)
[2016-04-29] MEDS: ACETAMINOPHEN 325 MG TAB PO PRN ×2 (16:23→22:33)
[2016-04-29] MEDS: CALCITONIN SALMON NA 200 IU/AC 3.7 ML BTL SCH (16:25)
[2016-04-29] MEDS: POLYETHYLENE (MIRALAX) 17 GM PACK PO PRN (16:40)
[2016-04-29 17:34] LABS: PARTIAL THROMBOPLASTIN RATIO 1.3
--- NOTE | 2016-04-29 19:04 | Medical Consult ---
Consultation Date of Consultation: Apr 29, 2016. Attending Physician: Rico Kc MD Reason for Consultation: Vertebral osteomyelitis History of Present Illness 55-year-old female with history of thoracic vertebral compression fracture, status post surgical repair, who developed severe back pain in November and was diagnosed with vertebral osteomyelitis with Staphylococcus, treated with prolonged course of IV vancomycin. Early this year, she developed worsening back pain, with MRI scan showing persistent spinal infection, with biopsy again showing Staphylococcus, and patient now on prolonged course of IV vancomycin. She was now admitted with several days of progressively worsening back pain, now rated 10/10 in intensity. She has not had any significant fever, but has had some chills. Imaging of the area is pending. Patient has been continued on IV vancomycin. Past Medical/Surgical History Medical Problems: (1) Anemia Status: Acute (2) Anxiety Status: Acute (3) Back pain Status: Acute (4) Back pain Status: Chronic (5) Chest wall pain Status: Acute (6) Chronic pain Status: Acute (7) Closed stable burst fracture of T8 vertebra Status: Acute (8) Closed T12 fracture Status: Acute (9) Constipation Status: Acute (10) Contusion of head Status: Acute (11) Delusions Status: Acute (12) Depression with suicidal ideation Status: Acute (13) Diarrhea Status: Acute (14) Diffuse abdominal pain Status: Acute (15) Discitis Status: Acute (16) Discitis thoracic region Status: Acute (17) Fall Status: Acute (18) Interstitial lung disease Status: Acute (19) Leukocytosis Status: Acute (20) Lower back pain Status: Acute (21) Mood disorder Status: Acute (22) Osteomyelitis () of jaw (suppurative) Status: Acute (23) Osteomyelitis of spine Status: Acute (24) Post-op pain Status: Acute (25) Precordial chest pain Status: Acute (26) Right low back pain Status: Acute (27) Shortness of breath Status: Acute (28) Suicidal ideations Status: Acute (29) Thoracic back pain Status: Acute (30) Traumatic compression fracture of T8 thoracic vertebra Status: Acute (31) Weakness Status: Acute (32) Wound dehiscence Status: Acute Social History Problems: (1) History of back surgery Status: Acute Medical Problems: (1) Accidental drug overdose (2) Alcohol abuse (3) Aspiration pneumonia (4) Back pain (5) Cataract (6) Chronic hepatitis C (7) Chronic obstructive lung disease (8) Chronic paranoid schizophrenia (9) Closed fracture of femur (10) COPD (chronic obstructive pulmonary disease) (11) Deep venous thrombosis (12) Depression (13) Drug abuse (14) Gastroesophageal reflux disease (15) Hepatitis C (16) Hypoxia (17) Hysterectomy (18) Opiate abuse, continuous (19) Osteoporosis (20) Past Psych Meds (21) Psychosis (22) S/P ORIF (open reduction internal fixation) fracture (23) Schizoaffective disorder (24) Seizure (25) Suicidal ideation (26) Tinea (27) Tobacco user Surgical Problems: (1) H/O colonoscopy (2) History of hysterectomy (3) S/p thoracic spinal surgery (4) S/P tonsillectomy Family History FH: lung cancer GRANDMOTHER Thyroid disorder MOTHER SISTER Social History Smoking Status: Former Smoker Alcohol Use: denies recent alcohol use Drug Use: other (hx prior drug abuse, states clean for several years) Marital Status: single Housing Status: lives with family Occupation Status: disabled Allergies Coded Allergies: Haloperidol (Verified Allergy, Unknown, 04/28/16) Brave (Verified Allergy, Unknown, ., 04/28/16) Molindone (Verified Adverse Reaction, Intermediate, PT FEELS LIKE SHES "JUMPING OUT OF HER SKIN", 04/28/16) Morphine and Related (Verified Adverse Reaction, Intermediate, DROWSY, 05/01) px was drowsy w/ pinpoint pupils and minimally responsive. stable VS. Following Morphine IR 15mg - 3 doses in prior 24 hours. Naloxone 0.4mg admin 3 times during that period. Fluphenazine (Verified Adverse Reaction, Unknown, confusion, 04/28/16) Current Inpatient Medications Current Inpatient Medications Medications (Trade) Dose Ordered Sig/Janel Route Start Time Stop Time Status Last Admin Dose Admin Albuterol (Ventolin Hfa Inhaler) 2 puffs QID PRN INH 04/28/16 18:45 05/28/16 18:44 Amantadine HCl (Symmetrel Cap) 100 mg BID PO 04/28/16 21:00 05/28/16 20:59 04/29/16 10:36 100 MG Baclofen (Lioresal Tab) 10 mg TID PO 04/28/16 21:00 05/28/16 20:59 04/29/16 14:17 10 MG Calcitonin [place] (Fortical Nasal [place]) 1 spray DAILY@1600 NA 04/29/16 16:00 05/29/16 15:59 04/29/16 16:25 1 SPRAY Cholecalciferol (Vitamin D Tab) 1,000 inter.unit QAM PO 04/29/16 09:00 05/29/16 08:59 04/29/16 10:36 1,000 INTER.UNIT Docusate Sodium (coLACE CAP) 100 mg BID PO 04/28/16 21:00 05/28/16 20:59 04/29/16 10:37 100 MG Econazole Nitrate (Econazole Nitrate 1% Crm) 1 appln QID EXT 04/28/16 21:00 05/28/16 20:59 04/29/16 16:25 1 APPLN Escitalopram Oxalate (Lexapro Tab) 20 mg QAM PO 04/29/16 09:00 05/29/16 08:59 04/29/16 10:39 20 MG Fenofibrate (Tricor Tab) 48 mg QAM PO 04/29/16 09:00 05/29/16 08:59 04/29/16 10:35 48 MG Folic Acid (Folvite Tab) 1 mg DAILY PO 04/29/16 09:00 05/29/16 08:59 04/29/16 10:35 1 MG Gabapentin (Neurontin Cap) 300 mg TID PO 04/28/16 21:00 05/28/16 20:59 04/29/16 14:48 300 MG Lorazepam (Ativan Tab) 0.5 mg BID PRN PO 04/28/16 18:45 05/28/16 18:44 Montelukast Sodium (Singulair Tab) 10 mg HS PO 04/28/16 21:00 05/28/16 20:59 04/28/16 22:42 10 MG Morphine Sulfate (MoRPHine SULFATE IR TAB) 15 mg Q6 PO 04/29/16 00:00 05/13/16 00:00 04/29/16 18:18 15 MG Perphenazine (Trilafon Tab) 12 mg BID PO 04/28/16 21:00 05/28/16 20:59 04/29/16 10:35 12 MG Senna/Docusate Sodium (Senokot S Tab) 2 tab DAILY PO 04/29/16 09:00 05/29/16 08:59 04/29/16 10:36 2 TAB Tamsulosin HCl (Flomax Cap) 0.4 mg HS PO 04/28/16 21:00 05/28/16 20:59 04/28/16 22:41 0.4 MG Warfarin Sodium (Coumadin Tab) 2.5 mg DAILY@1600 PO 04/29/16 16:00 05/29/16 15:59 04/29/16 16:24 2.5 MG Ferrous Sulfate (Feosol Tab) 325 mg BIDM PO 04/29/16 08:00 05/29/16 07:59 04/29/16 18:18 325 MG Miscellaneous Information (Order Awaiting Action) 1 ea QS N/A 04/29/16 00:00 05/29/16 00:00 Pantoprazole Sodium (Protonix Tab) 40 mg QAM PO 04/29/16 09:00 05/29/16 08:59 04/29/16 10:36 40 MG Miscellaneous Information (Order Awaiting Action) 1 ea QS N/A 04/29/16 00:00 05/29/16 00:00 Acetaminophen (Tylenol Tab) 650 mg Q4H PRN PO 04/28/16 19:15 05/28/16 19:14 04/29/16 16:23 650 MG Al Hydrox/Mg Hydrox/Simethicone (Maalox Max Susp) 15 ml Q4H PRN PO 04/28/16 19:15 05/28/16 19:14 Magnesium Hydroxide (Milk Of Magnesia Susp) 30 ml Q6H PRN PO 04/28/16 19:15 05/28/16 19:14 Polyethylene (Miralax Powder Packet) 17 gm DAILY PRN PO 04/28/16 19:30 05/28/16 19:29 04/29/16 16:40 17 GM Zolpidem Tartrate (Ambien Tab) 5 mg HSZ PRN PO 04/28/16 19:15 05/28/16 19:14 Ondansetron HCl (Zofran Inj) 4 mg Q6H PRN IV 04/28/16 19:15 05/28/16 19:14 Oxycodone/ Acetaminophen (Percocet 5-325mg Tab) 1 tab Q4H PRN PO 04/28/16 19:15 05/12/16 19:14 04/29/16 14:16 1 TAB Oxycodone/ Acetaminophen (Percocet 5-325mg Tab) 2 tab Q4H PRN PO 04/28/16 19:15 05/12/16 19:14 Bisacodyl (Dulcolax Tab) 10 mg DAILY PRN PO 04/28/16 19:15 05/28/16 19:14 Clozapine (Clozaril Tab) 400 mg HS PO 04/28/16 21:00 05/28/16 20:59 04/28/16 22:40 400 MG Lorazepam (Ativan Inj) 0.5 mg Q4 PRN IV 04/28/16 19:15 05/28/16 19:14 Miscellaneous 1 ea 1 ea PRN PRN N/A 04/28/16 19:45 04/28/17 19:44 Vancomycin HCl/ Sodium Chloride (Vancomycin Inj/ Nss 250ml) 270 ml @ 125 mls/hr Q12H IV 04/28/16 20:00 06/09/16 19:59 04/29/16 07:43 125 MLS/HR Calcium Carbonate (oS-Michael 500 TAB) 1,250 mg BID PO 04/28/16 21:00 05/28/16 20:59 04/29/16 10:36 1,250 MG Vancomycin HCl (Consult) 1 ea UD PRN N/A 04/28/16 20:15 05/28/16 20:14 Ioversol 125 ml 125 ml UD PRN IV 04/28/16 22:00 05/02/16 21:59 Heparin Sodium/ Dextrose (Heparin 25,000 Unit/500ml D5W) 500 ml @ 21 mls/hr [id number] PRN IV 04/28/16 22:15 05/28/16 22:14 Future hold 04/29/16 18:43 21 MLS/HR Hydromorphone HCl (Dilaudid Inj) 0.5 mg Q4 PRN IV 04/29/16 12:00 05/13/16 11:59 Salmeterol Xinafoate/ Fluticasone (Advair Diskus 250/50 Inh) 1 puff BID INH 04/29/16 10:00 05/29/16 09:59 04/29/16 10:37 1 PUFF Review of Systems All systems were reviewed and are negative except as per HPI Physical Exam Date Time Temp Pulse Resp B/P Pulse Ox O2 Delivery O2 Flow Rate FiO2 04/29/16 14:54 37.0 106 16 117/82 98 Nasal Cannula 2.0 04/29/16 08:06 37.1 89 18 115/76 97 Nasal Cannula 2.0 04/29/16 07:41 Nasal Cannula 2.0 04/29/16 06:10 87 112/76 97 Nasal Cannula 2.0 04/29/16 00:00 Room Air 04/28/16 22:52 36.9 98 18 118/74 96 Nasal Cannula 2.0 04/28/16 20:01 37.0 103 18 117/84 99 Nasal Cannula 2.0 04/28/16 19:45 37.0 18 117/84 98 Nasal Cannula 2.0 04/28/16 18:57 106 16 117/91 96 Room Air General Appearance: WD/WN, no apparent distress Head: normocephalic, atraumatic Eyes: normal inspection, sclerae normal ENT: normal ENT inspection, pharynx normal Neck: supple, no adenopathy, thyroid normal, trachea midline Respiratory/Chest: chest non-tender, lungs clear, normal breath sounds, no respiratory distress Cardiovascular: regular rate, rhythm, no gallop, no murmur Abdomen/GI: normal bowel sounds, non tender, soft, no organomegaly Back: normal inspection, no CVA tenderness, + pertinent finding ( tenderness over lower thoracic area) Extremities/Musculoskelatal: normal inspection, no calf tenderness, non-tender Neurologic/Psych: alert, oriented x 3 Skin: normal color, warm/dry, no rash Lymphatic: no adenopathy Laboratory Results Date/Time Source Procedure Growth Status 04/28/16 22:33 Blood Blood Culture Pending Received 04/28/16 22:30 Blood Blood Culture Pending Received Last 24 Hours Test 04/28/16 20:40 04/28/16 22:30 04/29/16 05:47 04/29/16 05:56 D-Dimer 1010 ug/L FEU White Blood Count 11.05 K/uL 10.34 K/uL Red Blood Count 3.78 M/uL 3.73 M/uL Hemoglobin 11.1 g/dL 10.7 g/dL Hematocrit 34.8 % 33.9 % Mean Corpuscular Volume 92.1 fL 90.9 fL Mean Corpuscular Hemoglobin 29.4 pg 28.7 pg Mean Corpuscular Hemoglobin Concent 31.9 g/dl 31.6 g/dl Platelet Count 268 K/uL 263 K/uL Mean Platelet Volume 10.4 fL 10.0 fL Neutrophils (%) (Auto) 62.3 % 57.6 % Lymphocytes (%) (Auto) 20.6 % 23.8 % Monocytes (%) (Auto) 12.9 % 13.1 % Eosinophils (%) (Auto) 3.2 % 4.4 % Basophils (%) (Auto) 0.5 % 0.6 % Neutrophils # (Auto) 6.89 K/uL 5.97 K/uL Lymphocytes # (Auto) 2.28 K/uL 2.46 K/uL Monocytes # (Auto) 1.43 K/uL 1.35 K/uL Eosinophils # (Auto) 0.35 K/uL 0.45 K/uL Basophils # (Auto) 0.05 K/uL 0.06 K/uL RDW Standard Deviation 52.9 fL 52.1 fL RDW Coefficient of Variation 15.5 % 15.6 % Immature Granulocyte % (Auto) 0.5 % 0.5 % Immature Granulocyte # (Auto) 0.05 K/uL 0.05 K/uL Prothrombin Time 15.3 SECONDS 14.9 SECONDS Prothromb Time International Ratio 1.4 1.4 Activated Partial Thromboplast Time 33.9 SECONDS 36.6 SECONDS Partial Thromboplastin Ratio 1.3 1.4 Sodium Level 145 mmol/L Potassium Level 3.7 mmol/L Chloride Level 108 mmol/L Carbon Dioxide Level 30 mmol/L Anion Gap 7.0 mmol/L Blood Urea Nitrogen 11 mg/dl Creatinine 0.54 mg/dl Est Creatinine Clear Calc Drug Dose 120.5 ml/min Estimated GFR () 122.3 Estimated GFR (Non- 105.5 BUN/Creatinine Ratio 20.6 Random Glucose 87 mg/dl Calcium Level 8.7 mg/dl Bedside Glucose 87 mg/dl Test 04/29/16 07:40 04/29/16 08:45 04/29/16 09:55 04/29/16 17:09 Activated Partial Thromboplast Time > 300.0 SECONDS 104.6 SECONDS 34.8 SECONDS Partial Thromboplastin Ratio > 11.0 4.0 1.3 Urine Color YELLOW Urine Appearance CLEAR Urine pH 7.0 Urine Specific [place] 1.026 Urine Protein NEG Urine Glucose (UA) NEG Urine Ketones NEG Urine Occult Blood NEG Urine Nitrite NEG Urine Bilirubin NEG Urine Urobilinogen NEG Urine Leukocyte Esterase NEG Urine Opiates Screen POS Urine Methadone, Qualitative NEG Urine Barbiturates NEG Urine Phencyclidine (PCP) Level NEG Ur Amphetamine/Methamphetamine NEG MDMA (Ecstasy) Screen NEG Urine Benzodiazepines Screen NEG Urine Cocaine Metabolite NEG Urine Marijuana (THC) NEG CT ANGIOGRAM OF THE CHEST CLINICAL HISTORY: Tachycardia. COMPARISON STUDY: Chest CT scans dated 11/29/2015 and 11/02/2012. CT scan of the thoracic spine dated 11/29/2015. TECHNIQUE: Following the IV administration of 91 cc of Optiray 320, CT angiogram of the chest was performed from the upper abdomen to the thoracic inlet utilizing the pulmonary embolus protocol. Images are reviewed in the axial, sagittal, and coronal planes. 3-D MIPS images are created and assessed. IV contrast was administered without complication. The examination is degraded by motion artifact. FINDINGS: Thyroid: Imaged portions of the thyroid gland are normal in size and attenuation. A 12 mm low-attenuation nodule is noted in the left lobe. Thoracic aorta: There is atherosclerotic calcification of the thoracic aorta, which is normal in caliber and demonstrates standard 3-vessel arch anatomy. No dissection is seen. Pulmonary vasculature: The pulmonary trunk is normal in caliber. There are no filling defects identified in main, lobar, or segmental pulmonary branches to suggest pulmonary embolus. Heart: The heart is normal in size and configuration, and without pericardial effusion. Lungs and pleural spaces: Chronic interstitial thickening and groundglass opacities throughout both lungs with subpleural reticulation are unchanged from prior studies. There is no evidence of superimposed airspace consolidation. Trace pleural effusions are noted The trachea and central airways are clear. Mediastinum: There is no mediastinal lymphadenopathy. Gifty: Clear. Axillae: There is no axillary lymphadenopathy. Upper abdomen: There is a small hiatal hernia. Calcified gallstones are identified. Hepatic steatosis is observed. Skeletal structures: The skeletal structures are osteopenic. No lytic or blastic bony lesions are seen. There are healed right-sided rib fractures. Again seen are postoperative changes from laminectomy and posterior fusion from T6 through T11. Severe compression deformities of T8 and T10 are again noted, and there is fragmentation of the T11 and T12 vertebral bodies. Significant paravertebral soft tissue thickening is again seen at this level. Mild compression deformities are again seen involving T3 and T4. IMPRESSION: 1. There is no evidence of pulmonary embolus in the main, lobar, or segmental pulmonary arteries. 2. There is no airspace consolidation typical for pneumonia. Trace pleural effusions are identified. 3. Chronic interstitial/fibrotic changes throughout both lungs are unchanged from 11/29/2015 but progressive from 11/02/2012. 4. Extensive destructive and postoperative changes are again seen in the mid to lower thoracic spine. There is significant paravertebral soft tissue thickening around the lower thoracic region, greatest at T11-T12. This is overall similar in appearance to the 11/29/[address] This could potentially represent a developing pseudoarthrosis. Chronic osteomyelitis would be impossible to exclude. Clinical correlation will be essential. Electronically signed by: Hubert Ferreira M.D. 04/29/2016 9:30 AM Assessment & Plan 55 yo female with complicated epidural/vertebral/disk space infection with Staph (?MRSA), on vancomycin. Patient should be continued on vancomycin with close monitoring of levels and renal function. Ultimate Abx decisions to be deferred to [facility] ID service. ID will follow.
[2016-04-29] MEDS: MONTELUKAST SOD 10 MG TAB PO SCH (21:00)
[2016-04-29] MEDS: TAMSULOSIN HCL 0.4 MG CAP PO SCH (21:00)
[2016-04-29] MEDS: CLOZAPINE 100 MG TAB PO SCH (21:00)
--- NOTE | 2016-04-29 21:31 | Progress Note ---
Internal Med Progress Note Date of Service: Apr 29, 2016. Provider Documentation: 915 PM - Made aware by Miss Tami Prado RN via [employer] text message that px was drowsy w/ pinpoint pupils and minimally responsive. stable VS Suspecting opioid toxicity, I entered hold for sedation/confusion parameters for px's narcotic meds, Neurontin, and Baclofen. Miss Prado made aware. 923PM - I was requested by Miss Prado via text message to come up and evaluate the patient. I called her up to tell her to administer the Narcan order I entered for the px. I told her I would come up to see px after checking on an ER px I was called to admit (Rm A9). Miss Prado told me she was not comfortable giving Narcan to the px until I was able to come up and see the px. 935PM - Miss Shellie Agosto RN (charge nurse) notified me of continued px unresponsiveness and that she might need to call a CODE PURPLE on the px. I recounted to her the earlier communication w/ Miss Prado wherein the latter nurse wasn't comfortable giving my Narcan order w/o me seeing the px at bedside. I told Miss Agosto that I would come up to evaluate the px on the 3rd floor after I check on a direct admission at ICU Bed 11 from [facility] that I had just been notified about. Miss Agosto told me she would make sure Johan administered the IV Narcan to px interim. 947PM- IV Narcan administered as per EMR. 950PM- Px seen by myself at bedside to be awake and coherent. Denies cp, sob, headache. Will relay developments to AM provider. Vital Signs: Date Time Temp Pulse Resp B/P Pulse Ox O2 Delivery O2 Flow Rate FiO2 04/30/16 07:44 36.9 101 17 124/82 100 Nasal Cannula 2.0 04/30/16 03:15 36.9 94 18 119/81 99 Nasal Cannula 2.0 04/30/16 00:30 Nasal Cannula 2.0 04/29/16 23:32 36.6 87 16 124/80 100 Nasal Cannula 2.0 04/29/16 16:30 Nasal Cannula 2.0 04/29/16 14:54 37.0 106 16 117/82 98 Nasal Cannula 2.0 Lab Results: Results Past 24 Hours Test 04/29/16 09:55 04/29/16 17:09 04/29/16 21:30 04/29/16 21:56 Range/Units Urine Color YELLOW Urine Appearance CLEAR CLEAR Urine pH 7.0 4.5-7.5 Urine Specific [place] 1.026 1.000-1.030 Urine Protein NEG NEG Urine Glucose (UA) NEG NEG Urine Ketones NEG NEG Urine Occult Blood NEG NEG Urine Nitrite NEG NEG Urine Bilirubin NEG NEG Urine Urobilinogen NEG NEG Urine Leukocyte Esterase NEG NEG Urine Opiates Screen POS NEG Urine Methadone, Qualitative NEG NEG Urine Barbiturates NEG NEG Urine Phencyclidine (PCP) Level NEG NEG Ur Amphetamine/Methamphetamine NEG NEG MDMA (Ecstasy) Screen NEG NEG Urine Benzodiazepines Screen NEG NEG Urine Cocaine Metabolite NEG NEG Urine Marijuana (THC) NEG NEG Activated Partial Thromboplast Time 34.8 21.0-31.0 SECONDS Partial Thromboplastin Ratio 1.3 Bedside Glucose 125 70-90 mg/dl White Blood Count 12.56 4.8-10.8 K/uL Red Blood Count 3.63 4.2-5.4 M/uL Hemoglobin 10.5 12.0-16.0 g/dL Hematocrit 32.9 37-47 % Mean Corpuscular Volume 90.6 80-100 fL Mean Corpuscular Hemoglobin 28.9 25-34 pg Mean Corpuscular Hemoglobin Concent 31.9 32-36 g/dl Platelet Count 259 130-400 K/uL Mean Platelet Volume 10.2 7.4-10.4 fL Neutrophils (%) (Auto) 63.9 % Lymphocytes (%) (Auto) 22.5 % Monocytes (%) (Auto) 10.2 % Eosinophils (%) (Auto) 2.5 % Basophils (%) (Auto) 0.3 % Neutrophils # (Auto) 8.02 1.4-6.5 K/uL Lymphocytes # (Auto) 2.83 1.2-3.4 K/uL Monocytes # (Auto) 1.28 0.11-0.59 K/uL Eosinophils # (Auto) 0.31 0-0.5 K/uL Basophils # (Auto) 0.04 0-0.2 K/uL RDW Standard Deviation 50.8 36.4-46.3 fL RDW Coefficient of Variation 15.4 11.5-14.5 % Immature Granulocyte % (Auto) 0.6 % Immature Granulocyte # (Auto) 0.08 0.00-0.02 K/uL Prothrombin Time 13.5 9.0-12.0 SECONDS Prothromb Time International Ratio 1.3 0.9-1.1 Arterial Blood pH 7.45 7.35-7.45 Arterial Blood Partial Pressure CO2 39 35-46 mmHg Arterial Blood Partial Pressure O2 143 80-95 mm/Hg Arterial Blood HCO3 26 19-24 mmol/L Arterial Blood Oxygen Saturation 98.8 90-95 % Arterial Blood Base Excess 2.4 -9-1.8 mEq/L Arterial Blood Gas Delivery 2 L Anirudh Test POS POS Sodium Level 145 136-145 mmol/L Potassium Level 3.4 3.5-5.1 mmol/L Chloride Level 109 98-107 mmol/L Carbon Dioxide Level 26 21-32 mmol/L Anion Gap 10.0 3-11 mmol/L Blood Urea Nitrogen 11 7-18 mg/dl Creatinine 0.64 0.60-1.20 mg/dl Est Creatinine Clear Calc Drug Dose 101.7 ml/min Estimated GFR () 115.6 Estimated GFR (Non- 99.8 BUN/Creatinine Ratio 16.7 10-20 Random Glucose 122 70-99 mg/dl Calcium Level 8.4 8.5-10.1 mg/dl Magnesium Level 2.0 1.8-2.4 mg/dl Ammonia 13.0 11-32 umol/L Albumin 2.8 3.4-5.0 gm/dl Test 04/30/16 00:30 04/30/16 07:12 Range/Units Activated Partial Thromboplast Time 51.1 39.5 21.0-31.0 SECONDS Partial Thromboplastin Ratio 2.0 1.5 White Blood Count 9.86 4.8-10.8 K/uL Red Blood Count 3.62 4.2-5.4 M/uL Hemoglobin 10.4 12.0-16.0 g/dL Hematocrit 32.8 37-47 % Mean Corpuscular Volume 90.6 80-100 fL Mean Corpuscular Hemoglobin 28.7 25-34 pg Mean Corpuscular Hemoglobin Concent 31.7 32-36 g/dl Platelet Count 262 130-400 K/uL Mean Platelet Volume 10.1 7.4-10.4 fL Neutrophils (%) (Auto) 68.6 % Lymphocytes (%) (Auto) 15.9 % Monocytes (%) (Auto) 12.0 % Eosinophils (%) (Auto) 2.6 % Basophils (%) (Auto) 0.4 % Neutrophils # (Auto) 6.76 1.4-6.5 K/uL Lymphocytes # (Auto) 1.57 1.2-3.4 K/uL Monocytes # (Auto) 1.18 0.11-0.59 K/uL Eosinophils # (Auto) 0.26 0-0.5 K/uL Basophils # (Auto) 0.04 0-0.2 K/uL RDW Standard Deviation 51.9 36.4-46.3 fL RDW Coefficient of Variation 15.6 11.5-14.5 % Immature Granulocyte % (Auto) 0.5 % Immature Granulocyte # (Auto) 0.05 0.00-0.02 K/uL Prothrombin Time 13.7 9.0-12.0 SECONDS Prothromb Time International Ratio 1.3 0.9-1.1 Creatinine 0.57 0.60-1.20 mg/dl Est Creatinine Clear Calc Drug Dose 114.2 ml/min Estimated GFR () 120.1 Estimated GFR (Non- 103.6 Vancomycin Level Trough 14.1 SEE COMMENT mcg/ml
[2016-04-29] MEDS ORDERED: NALOXONE HCL 0.4 MG/1 ML VIAL/CARP IV STA (21:37)
[2016-04-29 22:08] LABS: ALLEN TEST POS (POS); ARTERIAL BLD GAS O2 SATURATION 98.8 % (90-95); ARTERIAL BLOOD GAS BASE EXCESS 2.4 mEq/L (-9-1.8); ARTERIAL BLOOD GAS HCO3 26 mmol/L (19-24); ARTERIAL BLOOD GAS PO2 143 mm/Hg (80-95); ARTERIAL BLOOD GAS pH 7.45 (7.35-7.45); O2 ADMINISTRATION 2 L
[2016-04-29 22:15] LABS: BASO % 0.3 %; BASO ABS # 0.04 K/uL (0-0.2); COMPLETE YES; EOS % 2.5 %; HEMATOCRIT 32.9 % (37-47); IG% 0.6 %; LYMPH % 22.5 %; LYMPH ABS # 2.83 K/uL (1.2-3.4); MEAN CELL VOLUME 90.6 fL (80-100); MEAN CORPUSCULAR HEMOGLOBIN 28.9 pg (25-34); MEAN CORPUSCULAR HGB CONC 31.9 g/dl (32-36); MEAN PLATELET VOLUME 10.2 fL (7.4-10.4); MONO % 10.2 %; NEUT % 63.9 %; PLATELET COUNT 259 K/uL (130-400); RED BLOOD COUNT 3.63 M/uL (4.2-5.4); WHITE BLOOD COUNT 12.56 K/uL (4.8-10.8)
[2016-04-29 22:26] LABS: BUN/CREATININE RATIO 16.7 (10-20); CALCIUM 8.4 mg/dl (8.5-10.1); CREATININE 0.64 mg/dl (0.60-1.20); INR 1.3 (0.9-1.1); POTASSIUM 3.4 mmol/L (3.5-5.1); PROTHROMBIN TIME (PATIENT) 13.5 SECONDS (9.0-12.0)
[2016-04-29] MEDS ORDERED: OXYCODONE/ACETAMINOPHEN 5-325 TAB PO PRN (23:15)
[2016-04-29 23:32] VITALS: BP 124/80; PULSE 87; TEMP 36.6; O2SAT 100
[2016-04-29] MEDS ORDERED: SODIUM CHLOR 0.45% + 20MEQ KCL 1,000 ML IV ONE (23:45)
[2016-04-29] MEDS ORDERED: POTASSIUM CHLORIDE 10 MEQ TABCR PO STA (23:47)
[2016-04-30] VITALS (7 sets, daily range): BP systolic 119–141; BP diastolic 81–86; PULSE 93–111; TEMP 36.6–37.1; O2SAT 98–100
[2016-04-30] MEDS ORDERED: NALOXONE HCL 0.4 MG/1 ML VIAL/CARP IV STA (00:19)
[2016-04-30] MEDS: ACETAMINOPHEN 325 MG TAB PO PRN ×4 (05:24→23:57)
[2016-04-30] MEDS: MoRPHine SULFATE IR 15 MG TAB (IMMEDIATE RELEASE) PO SCH ×3 (06:00→12:00)
[2016-04-30] MEDS: HEPARIN 25,000 UNIT/500ML D5W 500 ML IV PRN ×3 (06:43→23:08)
[2016-04-30 07:25] LABS: BASO % 0.4 %; BASO ABS # 0.04 K/uL (0-0.2); COMPLETE YES; EOS % 2.6 %; HEMATOCRIT 32.8 % (37-47); IG% 0.5 %; LYMPH % 15.9 %; LYMPH ABS # 1.57 K/uL (1.2-3.4); MEAN CELL VOLUME 90.6 fL (80-100); MEAN CORPUSCULAR HEMOGLOBIN 28.7 pg (25-34); MEAN CORPUSCULAR HGB CONC 31.7 g/dl (32-36); MEAN PLATELET VOLUME 10.1 fL (7.4-10.4); NEUT % 68.6 %; PLATELET COUNT 262 K/uL (130-400); RED BLOOD COUNT 3.62 M/uL (4.2-5.4); WHITE BLOOD COUNT 9.86 K/uL (4.8-10.8)
[2016-04-30] MEDS ORDERED: VANCOMYCIN TROUGH SCH (07:30)
[2016-04-30 07:35] LABS: INR 1.3 (0.9-1.1); PARTIAL THROMBOPLASTIN RATIO 1.5; PROTHROMBIN TIME (PATIENT) 13.7 SECONDS (9.0-12.0)
[2016-04-30 07:44] LABS: CREATININE 0.57 mg/dl (0.60-1.20)
[2016-04-30] MEDS: VANCOMYCIN INJ 1,000 MG in SODIUM CHLORIDE 0.9% 250ML 250 ML IV SCH (08:04)
[2016-04-30] MEDS: FERROUS SULFATE 325 MG TAB PO SCH ×2 (08:09→19:53)
[2016-04-30] MEDS: ECONAZOLE NITRATE 1% CRM 15 GM TUBE EXT SCH ×4 (08:09→22:17)
[2016-04-30] MEDS: FLUTICASONE/SALMETEROL 250/50 (ADVAIR) 14 PUFF/1 INHALER INH SCH ×2 (08:09→22:18)
[2016-04-30] MEDS: DOCUSATE SODIUM 100 MG CAP PO SCH ×2 (08:10→22:22)
[2016-04-30] MEDS: ESCITALOPRAM OXALATE 20 MG TAB PO SCH (08:12)
[2016-04-30] MEDS: GABAPENTIN 300 MG CAP PO SCH ×3 (08:12→21:00)
[2016-04-30] MEDS: BACLOFEN 10 MG TAB PO SCH ×3 (08:12→21:00)
[2016-04-30] MEDS: DOCUSATE SODIUM/SENNA 50/8.6MG TAB PO SCH (08:13)
[2016-04-30] MEDS: CALCIUM CARBONATE 1250MG TAB PO SCH ×2 (08:13→22:23)
[2016-04-30] MEDS: PERPHENAZINE 2 MG TAB PO SCH ×2 (08:14→22:25)
[2016-04-30] MEDS: AMANTADINE HCL 100 MG CAP PO SCH ×2 (08:14→22:24)
[2016-04-30] MEDS: CHOLECALCIFEROL 1000 INTER.UNIT TAB PO SCH (08:15)
[2016-04-30] MEDS: FENOFIBRATE 48 MG TAB PO SCH (08:30)
[2016-04-30] MEDS: PANTOprazole SOD 40 MG TAB PO SCH (08:30)
[2016-04-30] MEDS ORDERED: HEPARIN IV BOLUS 4,500 UNIT in SYRINGE 0 ML IV ONE (09:30)
--- NOTE | 2016-04-30 12:40 | Pharmacy Progress Note ---
Pharmacy Antibiotic Prog Note Date of Service: Apr 30, 2016. Subjective: The patient is currently receiving Vancomycin 1gm IV q12h. The patient is currently on day #3 of IV therapy. Objective: Height (Feet): 5 Height (Inches): 5.00 Weight (Kilograms): 78.600 Levels: Item Value Date Time Vancomycin Level Trough 14.1 mcg/ml 04/30/16 0712 Lab Results (24hrs): Laboratory Tests Test 04/29/16 21:56 04/30/16 07:12 BUN/Creatinine Ratio 16.7 Blood Urea Nitrogen 11 mg/dl Creatinine 0.64 mg/dl 0.57 mg/dl White Blood Count 12.56 K/uL 9.86 K/uL Red Blood Count 3.63 M/uL 3.62 M/uL Hemoglobin 10.5 g/dL 10.4 g/dL Hematocrit 32.9 % 32.8 % Mean Corpuscular Volume 90.6 fL 90.6 fL Mean Corpuscular Hemoglobin 28.9 pg 28.7 pg Mean Corpuscular Hemoglobin Concent 31.9 g/dl 31.7 g/dl Platelet Count 259 K/uL 262 K/uL Mean Platelet Volume 10.2 fL 10.1 fL Neutrophils (%) (Auto) 63.9 % 68.6 % Lymphocytes (%) (Auto) 22.5 % 15.9 % Monocytes (%) (Auto) 10.2 % 12.0 % Eosinophils (%) (Auto) 2.5 % 2.6 % Basophils (%) (Auto) 0.3 % 0.4 % Neutrophils # (Auto) 8.02 K/uL 6.76 K/uL Lymphocytes # (Auto) 2.83 K/uL 1.57 K/uL Monocytes # (Auto) 1.28 K/uL 1.18 K/uL Eosinophils # (Auto) 0.31 K/uL 0.26 K/uL Basophils # (Auto) 0.04 K/uL 0.04 K/uL Micro Results: Item Value Date Time Blood Culture - Preliminary Resulted 04/28/162229 Blood NO GROWTH TO DATE. Blood Culture - Preliminary Resulted 04/28/162232 Blood NO GROWTH TO DATE. Recent Pertinent Medications: Item Value Date Time Vancomycin HCl 270 ml @ 125 mls/hr 04/28/16 2000 1000 mg/Sodium Q12H/IV 04/30/16 0804 Chloride Vancomycin HCl 274 ml @ 125 mls/hr 04/30/16 1800 1200 mg/Sodium Q12H/IV Chloride Assessment & Plan: Vancomycin * 55 yo F with lumbar discitis/osteomyelitis * goal trough level: 15-20mcg/mL * trough level this mornin.1mcg/mL --> Subtherapeutic (level ~1hr early due to late dose admin) * increase dose to: Vancomycin 1200mg IV q12h * trough level ordered for: 05/02 0600 dose Pharmacy will continue to follow and will adjust dose/frequency as necessary. Thank you
--- NOTE | 2016-04-30 13:42 | Progress Note ---
Internal Med Progress Note Date of Service: Apr 30, 2016. Provider Documentation: SUBJECTIVE: Patient is seen and examined at bedside. Alert, awake this morning. Complains of chronic back pain and b/l leg pain. Offers no other complaints. OBJECTIVE: Vital Signs-as noted below Physical Exam: General Appearance:Chronically ill appearing, no apparent distress, +drowsy Head: normocephalic, Atraumatic Eyes: EOMI, PERRL Neck: supple, Trachea midline Respiratory/Chest: Normal breath sounds, CTA, No accessory muscle use Cardiovascular: S1, S2, Tachycardia, No murmur Abdomen/GI:Soft, Non tender, Bowel sounds present Extremities/Musculoskelatal:normal inspection, B/L LE edema, tender Neurologic/Psych:AAOX3, Complete neuro exam could not be performed as patient is drowsy Skin: normal color, warm Lab data as noted below. ASSESSMENT & PLAN: CHRONIC LOW BACK PAIN : Secondary to lumber spinal discitis /osteomyelitis H/O chronic narcotic pain meds abuse Continue Morphine sulfate PO 15 mg Q 6hrs PRN: Hold for Now ER Discussed pain management with [facility] Advised to increase Neurontin and Baclofen dose Neurontin dose increased to 300 mg TID ( as on 200 mg TID ), Baclofen scheduled dose 10 mg TID Pain management consulted: pending input Cautious with pain meds: high risk for opioid toxicity Start Lidoderm patch, Toradol PRN Avoid Narcotics LUMBER SPINE DISCITIS /OSTEOMYELITIS : Dx with vertebral osteomyelitis s/p bx in 11/2015 Culture + ve staph non-aureus. completed 6 weeks of IV vancomycin on 01/10/16 Recently hospitalized at [facility] for chronic low back/ bilateral legs pain and weakness after MRI at [facility] showed progressive discitis and osteomyelitis at the T11-T12 level. Biopsy specimen + ve for MRSA pt was discharged 3 days ago on 04/25/16 with vancomycin via PICC Continued IV Vancomycin per ID Follow up blood culture: No growth to date ID on board, appreciate input ELEVATED D DIMER /LOWER EXT PAIN /TACHYCARDIA : D dimer markedly elevated: Patient has underling chronic infection Increased swelling and pain of bilat lower ext High risk for DVT secondary to limited mobility secondary to intractable back pain H/O DVT INR 1.3: continue to monitor LE Doppler: Negative for DVT CTA : Negative for PE Continue PO Coumadin and IV heparin bridge till INR > 2 Monitor INR Increase Coumadin to 5mg daily PARANOID SCHIZOPHRENIA : continue Clozaril denies of any auditory hallucination H/O Hep C Stable COPD: Continue inhalers Duonebs PRN on chronic oxygen at baseline CODE STATUS: FULL CODE DISPOSITION : PT/OT May need placement Consult family services assistant Needs follow up with neurosurgery scheduled in [facility] on 05/12/16 PROCEDURES: CTA FOR PE: 1. There is no evidence of pulmonary embolus in the main, lobar, or segmental pulmonary arteries. 2. There is no airspace consolidation typical for pneumonia. Trace pleural effusions are identified. 3. Chronic interstitial/fibrotic changes throughout both lungs are unchanged from 11/29/2015 but progressive from 11/02/2012. 4. Extensive destructive and postoperative changes are again seen in the mid to lower thoracic spine. There is significant paravertebral soft tissue thickening around the lower thoracic region, greatest at T11-T12. This is overall similar in appearance to the 11/29/[address] This could potentially represent a developing pseudoarthrosis. Chronic osteomyelitis would be impossible to exclude. Clinical correlation will be essential. Vital Signs: Date Time Temp Pulse Resp B/P Pulse Ox O2 Delivery O2 Flow Rate FiO2 04/30/16 11:21 36.6 111 20 126/84 99 Nasal Cannula 2.0 04/30/16 08:00 100 Nasal Cannula 2.0 04/30/16 07:44 36.9 101 17 124/82 100 Nasal Cannula 2.0 04/30/16 03:15 36.9 94 18 119/81 99 Nasal Cannula 2.0 04/30/16 00:30 Nasal Cannula 2.0 04/29/16 23:32 36.6 87 16 124/80 100 Nasal Cannula 2.0 04/29/16 16:30 Nasal Cannula 2.0 04/29/16 14:54 37.0 106 16 117/82 98 Nasal Cannula 2.0 Lab Results: Results Past 24 Hours Test 04/29/16 17:09 04/29/16 21:30 04/29/16 21:56 04/30/16 00:30 Range/Units Activated Partial Thromboplast Time 34.8 51.1 21.0-31.0 SECONDS Partial Thromboplastin Ratio 1.3 2.0 Bedside Glucose 125 70-90 mg/dl White Blood Count 12.56 4.8-10.8 K/uL Red Blood Count 3.63 4.2-5.4 M/uL Hemoglobin 10.5 12.0-16.0 g/dL Hematocrit 32.9 37-47 % Mean Corpuscular Volume 90.6 80-100 fL Mean Corpuscular Hemoglobin 28.9 25-34 pg Mean Corpuscular Hemoglobin Concent 31.9 32-36 g/dl Platelet Count 259 130-400 K/uL Mean Platelet Volume 10.2 7.4-10.4 fL Neutrophils (%) (Auto) 63.9 % Lymphocytes (%) (Auto) 22.5 % Monocytes (%) (Auto) 10.2 % Eosinophils (%) (Auto) 2.5 % Basophils (%) (Auto) 0.3 % Neutrophils # (Auto) 8.02 1.4-6.5 K/uL Lymphocytes # (Auto) 2.83 1.2-3.4 K/uL Monocytes # (Auto) 1.28 0.11-0.59 K/uL Eosinophils # (Auto) 0.31 0-0.5 K/uL Basophils # (Auto) 0.04 0-0.2 K/uL RDW Standard Deviation 50.8 36.4-46.3 fL RDW Coefficient of Variation 15.4 11.5-14.5 % Immature Granulocyte % (Auto) 0.6 % Immature Granulocyte # (Auto) 0.08 0.00-0.02 K/uL Prothrombin Time 13.5 9.0-12.0 SECONDS Prothromb Time International Ratio 1.3 0.9-1.1 Arterial Blood pH 7.45 7.35-7.45 Arterial Blood Partial Pressure CO2 39 35-46 mmHg Arterial Blood Partial Pressure O2 143 80-95 mm/Hg Arterial Blood HCO3 26 19-24 mmol/L Arterial Blood Oxygen Saturation 98.8 90-95 % Arterial Blood Base Excess 2.4 -9-1.8 mEq/L Arterial Blood Gas Delivery 2 L Anirudh Test POS POS Sodium Level 145 136-145 mmol/L Potassium Level 3.4 3.5-5.1 mmol/L Chloride Level 109 98-107 mmol/L Carbon Dioxide Level 26 21-32 mmol/L Anion Gap 10.0 3-11 mmol/L Blood Urea Nitrogen 11 7-18 mg/dl Creatinine 0.64 0.60-1.20 mg/dl Est Creatinine Clear Calc Drug Dose 101.7 ml/min Estimated GFR () 115.6 Estimated GFR (Non- 99.8 BUN/Creatinine Ratio 16.7 10-20 Random Glucose 122 70-99 mg/dl Calcium Level 8.4 8.5-10.1 mg/dl Magnesium Level 2.0 1.8-2.4 mg/dl Ammonia 13.0 11-32 umol/L Albumin 2.8 3.4-5.0 gm/dl Test 04/30/16 07:12 Range/Units White Blood Count 9.86 4.8-10.8 K/uL Red Blood Count 3.62 4.2-5.4 M/uL Hemoglobin 10.4 12.0-16.0 g/dL Hematocrit 32.8 37-47 % Mean Corpuscular Volume 90.6 80-100 fL Mean Corpuscular Hemoglobin 28.7 25-34 pg Mean Corpuscular Hemoglobin Concent 31.7 32-36 g/dl Platelet Count 262 130-400 K/uL Mean Platelet Volume 10.1 7.4-10.4 fL Neutrophils (%) (Auto) 68.6 % Lymphocytes (%) (Auto) 15.9 % Monocytes (%) (Auto) 12.0 % Eosinophils (%) (Auto) 2.6 % Basophils (%) (Auto) 0.4 % Neutrophils # (Auto) 6.76 1.4-6.5 K/uL Lymphocytes # (Auto) 1.57 1.2-3.4 K/uL Monocytes # (Auto) 1.18 0.11-0.59 K/uL Eosinophils # (Auto) 0.26 0-0.5 K/uL Basophils # (Auto) 0.04 0-0.2 K/uL RDW Standard Deviation 51.9 36.4-46.3 fL RDW Coefficient of Variation 15.6 11.5-14.5 % Immature Granulocyte % (Auto) 0.5 % Immature Granulocyte # (Auto) 0.05 0.00-0.02 K/uL Prothrombin Time 13.7 9.0-12.0 SECONDS Prothromb Time International Ratio 1.3 0.9-1.1 Activated Partial Thromboplast Time 39.5 21.0-31.0 SECONDS Partial Thromboplastin Ratio 1.5 Creatinine 0.57 0.60-1.20 mg/dl Est Creatinine Clear Calc Drug Dose 114.2 ml/min Estimated GFR () 120.1 Estimated GFR (Non- 103.6 Vancomycin Level Trough 14.1 SEE COMMENT mcg/ml
[2016-04-30 16:09] LABS: PARTIAL THROMBOPLASTIN RATIO 2.1
[2016-04-30] MEDS: CALCITONIN SALMON NA 200 IU/AC 3.7 ML BTL SCH (16:49)
[2016-04-30] MEDS: LIDODERM (LIDOCAINE) PATCH 5% TD SCH (16:49)
[2016-04-30] MEDS: KETOROLAC TROMETHAMINE 15 MG/ML VIAL IV PRN ×2 (16:50→23:57)
[2016-04-30] MEDS: LORAZEPAM 0.5 MG TAB PO PRN (16:50)
[2016-04-30] MEDS: WARFARIN SOD 5 MG TAB PO SCH (16:53)
[2016-04-30] MEDS: VANCOMYCIN INJ 1,200 MG in SODIUM CHLORIDE 0.9% 250ML 250 ML IV SCH (19:50)
[2016-04-30] MEDS: OXYCODONE/ACETAMINOPHEN 5-325 TAB PO PRN (19:51)
[2016-04-30] MEDS: CLOZAPINE 100 MG TAB PO SCH (22:22)
[2016-04-30] MEDS: MONTELUKAST SOD 10 MG TAB PO SCH (22:23)
[2016-04-30] MEDS: TAMSULOSIN HCL 0.4 MG CAP PO SCH (22:23)
[2016-05-01] MEDS: HEPARIN 25,000 UNIT/500ML D5W 500 ML IV PRN ×5 (02:10→23:22)
[2016-05-01] MEDS: OXYCODONE/ACETAMINOPHEN 5-325 TAB PO PRN (02:13)
[2016-05-01] MEDS: VANCOMYCIN INJ 1,200 MG in SODIUM CHLORIDE 0.9% 250ML 250 ML IV SCH ×2 (05:47→18:00)
[2016-05-01 06:10] LABS: BASO % 0.6 %; BASO ABS # 0.06 K/uL (0-0.2); COMPLETE YES; EOS % 3.2 %; HEMATOCRIT 32.4 % (37-47); IG% 0.6 %; LYMPH % 19.1 %; MEAN CELL VOLUME 92.8 fL (80-100); MEAN CORPUSCULAR HEMOGLOBIN 29.2 pg (25-34); MEAN CORPUSCULAR HGB CONC 31.5 g/dl (32-36); MEAN PLATELET VOLUME 10.1 fL (7.4-10.4); MONO % 9.6 %; NEUT % 66.9 %; PLATELET COUNT 272 K/uL (130-400); RED BLOOD COUNT 3.49 M/uL (4.2-5.4); WHITE BLOOD COUNT 9.96 K/uL (4.8-10.8)
[2016-05-01 06:37] LABS: CREATININE 0.5 mg/dl (0.60-1.20)
[2016-05-01 06:38] LABS: INR 1.6 (0.9-1.1); PARTIAL THROMBOPLASTIN RATIO 2.2; PROTHROMBIN TIME (PATIENT) 17.8 SECONDS (9.0-12.0)
[2016-05-01 07:30] VITALS: BP 156/99; PULSE 96; TEMP 37.3; O2SAT 100
[2016-05-01 08:33] VITALS: O2SAT 100
[2016-05-01] MEDS: FLUTICASONE/SALMETEROL 250/50 (ADVAIR) 14 PUFF/1 INHALER INH SCH ×2 (08:36→21:59)
[2016-05-01] MEDS: DOCUSATE SODIUM/SENNA 50/8.6MG TAB PO SCH (08:37)
[2016-05-01] MEDS: ECONAZOLE NITRATE 1% CRM 15 GM TUBE EXT SCH ×4 (08:37→22:00)
[2016-05-01] MEDS: ESCITALOPRAM OXALATE 20 MG TAB PO SCH (08:38)
[2016-05-01] MEDS: FERROUS SULFATE 325 MG TAB PO SCH ×2 (08:38→18:33)
[2016-05-01] MEDS: CALCIUM CARBONATE 1250MG TAB PO SCH ×2 (08:38→23:21)
[2016-05-01] MEDS: DOCUSATE SODIUM 100 MG CAP PO SCH ×2 (08:38→22:00)
[2016-05-01] MEDS: GABAPENTIN 300 MG CAP PO SCH ×3 (08:39→21:58)
[2016-05-01] MEDS: BACLOFEN 10 MG TAB PO SCH ×3 (08:39→21:58)
[2016-05-01] MEDS: PANTOprazole SOD 40 MG TAB PO SCH (08:40)
[2016-05-01] MEDS: PERPHENAZINE 2 MG TAB PO SCH ×2 (08:40→21:59)
[2016-05-01] MEDS: AMANTADINE HCL 100 MG CAP PO SCH ×2 (08:40→23:21)
[2016-05-01] MEDS: CHOLECALCIFEROL 1000 INTER.UNIT TAB PO SCH (08:41)
[2016-05-01] MEDS: FENOFIBRATE 48 MG TAB PO SCH (08:41)
[2016-05-01] MEDS: LIDODERM (LIDOCAINE) PATCH 5% TD SCH (08:42)
[2016-05-01] MEDS: KETOROLAC TROMETHAMINE 15 MG/ML VIAL IV PRN (08:43)
[2016-05-01 08:45] VITALS: O2SAT 100
[2016-05-01] MEDS: ACETAMINOPHEN 325 MG TAB PO PRN ×2 (10:28→18:00)
[2016-05-01 10:31] VITALS: BP 127/85
[2016-05-01] MEDS ORDERED: HYDROmorphone INJ 0.5 MG/0.5 ML SYR IV PRN (10:45)
--- NOTE | 2016-05-01 11:50 | Progress Note ---
Subjective Date of Service: May 01, 2016. Subjective Pt evaluation today including: conversation w/ patient, physical exam, chart review, lab review pt seen in follow up, remains on vanco for vertebral osteo diagnosed at [facility]. tolerating abx. still c/o pain. blood cultures negative to date. able to move arms and legs. no fevers. all remaining ros reviewed and are negative. Problem List Medical Problems: (1) Anemia Status: Acute (2) Anxiety Status: Acute (3) Back pain Status: Acute (4) Back pain Status: Chronic (5) Chest wall pain Status: Acute (6) Chronic pain Status: Acute (7) Closed stable burst fracture of T8 vertebra Status: Acute (8) Closed T12 fracture Status: Acute (9) Constipation Status: Acute (10) Contusion of head Status: Acute (11) Delusions Status: Acute (12) Depression with suicidal ideation Status: Acute (13) Diarrhea Status: Acute (14) Diffuse abdominal pain Status: Acute (15) Discitis Status: Acute (16) Discitis thoracic region Status: Acute (17) Fall Status: Acute (18) Interstitial lung disease Status: Acute (19) Leukocytosis Status: Acute (20) Lower back pain Status: Acute (21) Mood disorder Status: Acute (22) Osteomyelitis () of jaw (suppurative) Status: Acute (23) Osteomyelitis of spine Status: Acute (24) Post-op pain Status: Acute (25) Precordial chest pain Status: Acute (26) Right low back pain Status: Acute (27) Shortness of breath Status: Acute (28) Suicidal ideations Status: Acute (29) Thoracic back pain Status: Acute (30) Traumatic compression fracture of T8 thoracic vertebra Status: Acute (31) Weakness Status: Acute (32) Wound dehiscence Status: Acute Social History Problems: (1) History of back surgery Status: Acute Objective Vital Signs Date Time Temp Pulse Resp B/P Pulse Ox O2 Delivery O2 Flow Rate FiO2 05/01/16 10:31 127/85 05/01/16 08:45 100 Room Air 05/01/16 08:33 100 Nasal Cannula 2.0 05/01/16 07:30 37.3 96 24 156/99 100 Nasal Cannula 2.0 04/30/16 23:55 Nasal Cannula 2.0 04/30/16 23:10 36.7 93 18 141/82 99 Nasal Cannula 2.0 04/30/16 19:45 37.1 109 16 131/83 98 Nasal Cannula 2.0 04/30/16 16:10 Nasal Cannula 2.0 04/30/16 15:55 36.8 106 18 135/86 98 Nasal Cannula Physical Exam General Appearance: WD/WN, no apparent distress Eyes: EOMI Neck: supple Respiratory/Chest: lungs clear, normal breath sounds, no respiratory distress Cardiovascular: regular rate, rhythm, no edema Abdomen: non tender, soft Extremities: non-tender, normal inspection, no pedal edema Neurologic/Psychiatric: alert, oriented x 3 Skin: normal color Laboratory Results Item Value Date Time Blood Culture - Preliminary Resulted 04/28/162232 Blood NO GROWTH TO DATE. Blood Culture - Preliminary Resulted 04/28/162229 Blood NO GROWTH TO DATE. Last 24 Hours Test 04/30/16 15:27 05/01/16 05:50 Activated Partial Thromboplast Time 55.1 SECONDS 58.3 SECONDS Partial Thromboplastin Ratio 2.1 2.2 White Blood Count 9.96 K/uL Red Blood Count 3.49 M/uL Hemoglobin 10.2 g/dL Hematocrit 32.4 % Mean Corpuscular Volume 92.8 fL Mean Corpuscular Hemoglobin 29.2 pg Mean Corpuscular Hemoglobin Concent 31.5 g/dl Platelet Count 272 K/uL Mean Platelet Volume 10.1 fL Neutrophils (%) (Auto) 66.9 % Lymphocytes (%) (Auto) 19.1 % Monocytes (%) (Auto) 9.6 % Eosinophils (%) (Auto) 3.2 % Basophils (%) (Auto) 0.6 % Neutrophils # (Auto) 6.66 K/uL Lymphocytes # (Auto) 1.90 K/uL Monocytes # (Auto) 0.96 K/uL Eosinophils # (Auto) 0.32 K/uL Basophils # (Auto) 0.06 K/uL RDW Standard Deviation 53.7 fL RDW Coefficient of Variation 15.9 % Immature Granulocyte % (Auto) 0.6 % Immature Granulocyte # (Auto) 0.06 K/uL Prothrombin Time 17.8 SECONDS Prothromb Time International Ratio 1.6 Creatinine 0.50 mg/dl Est Creatinine Clear Calc Drug Dose 130.2 ml/min Estimated GFR () 125.4 Estimated GFR (Non- 108.2 Assessment and Plan (1) Osteomyelitis Assessment & Plan: continue vanco as planned by [facility] [place]. maintain trough 15-20. has follow up appt at [facility] on 05/12.
[2016-05-01] MEDS: LORAZEPAM 0.5 MG TAB PO PRN ×2 (12:16→22:01)
--- NOTE | 2016-05-01 13:14 | Clinical Documentation Query ---
CLINICAL DOCUMENTATION QUERY Dr. SCALES, In your clinical opinion is this patient being managed for: ( x ) Chronic hypoxic respiratory failure ( ) Other explanation of clinical findings (Please Explain) ( ) Unable to determine (Please Define) ( ) Need to Discuss ( ) Not Agree The medical record reflects the following clinical findings, treatment, and risk factors. Clinical Indicators: 55 yo female presenting with increasing back pain, osteomyelitis. Noted to chronically wear home O2 support/incruse ellipta/breo/singulair. Treatment:continue O2 support, singulair, advair while hospitalized Risk Factors: COPD, former tobacco use Please clarify and document your clinical opinion in the progress notes and discharge summary. Terms such as "probable", "suspected", "likely", "questionable", "possible", or "still to be ruled out" are acceptable. IF IN AGREEMENT, YOU MUST DOCUMENT ABOVE DIAGNOSTIC STATEMENT IN DAILY PROGRESS NOTES AND DISCHARGE SUMMARY. This document is not part of the patient's record. Thank You, Silvia Grider, MEGHAN [phone]
[2016-05-01] MEDS: OXYCODONE HCL IR 5 MG TAB (IMMEDIATE RELEASE) PO PRN (13:53)
--- NOTE | 2016-05-01 14:03 | CONSULTATION REPORT ---
PAIN MANAGEMENT CONSULTATION DATE OF CONSULTATION: 05/01/2016 The patient's EMR reviewed. The patient interviewed and examined. Orders written. HISTORY OF PRESENT ILLNESS: Amelia Tello is a 55-year-old female who was admitted to [facility] with complaint of experiencing low back pain radiating to the right lower extremity. She reports that she has experienced low back pain since childhood. She was subsequently informed that she required surgery and indeed underwent surgery of the thoracolumbar spine on 07/07/2015. She reports that she continued to have pain in the low back; however, subsequent to surgery, she now is experiencing further pain more distally as well as pain in both lower extremities, more so on the right side than the left side. She also reported that she has a history of "weakness" with weightbearing on the right lower extremity. She denies any change in bowel or bladder habits, although she does report chronic urinary incontinence that has remained unchanged since the surgery. Since her surgery, she was diagnosed of experiencing discitis and was treated with IV antibiotic therapy. She subsequently underwent further evaluation and was noted to have osteomyelitis and is currently on additional antibiotics. As an outpatient, she was treated with morphine 50 mg q. 6 hours, which she felt was not efficacious. Prior to that, she reports being on narcotics for "40 years." She reports being on Darvon, oxycodone, multiple different opioid analgesics for chronic duration. She reports a history of anxiety and depression as well as chronic low back pain and chronic opioid usage. PAST MEDICAL HISTORY: History of accidental overdose, alcohol issues, aspiration pneumonia, hepatitis C, COPD, paranoid schizophrenia, and this chronic low back pain. PAST SURGICAL HISTORY: History of hysterectomy. ORIF femur fracture. SOCIAL HISTORY: The patient is a former smoker. Denies any recent use of alcohol. Denies any history of current drug use. The patient is single, lives with her sister and her mother. She is currently disabled. ALLERGIES: HALDOL, LITHIUM, FLUPHENAZINE, MOLINDONE. MEDICATIONS: Medication list in the EMR was reviewed. PHYSICAL EXAMINATION: Exam demonstrates Amelia Tello to be appearing older than her stated age of 55. She appears fairly cachectic. She has obvious pain when she tries to ambulate. Inspection of the spine demonstrates healed surgical scar in the distal thoracic spine. Palpation distally to the scar produces midline pain. In supine position, she has a positive straight leg raising on the right side which worsens with Achilles stretch. Although she has symmetrical motor strength, she appears to have diminished motor strength 4/5 in both lower extremities, possibly guarding. She has intact sensation without asymmetry bilaterally. Deep tendon reflexes symmetrical. She does have 3-4 beat clonus on the left side. IMAGING: Most recent MRI performed of the lumbar spine on 04/20/2016 demonstrates fluid collection and possible abscess at T11-T12 disc space. It also demonstrated possible discitis/osteo at T12-L1. ASSESSMENT: 1. Post lumbar/thoracic laminectomy syndrome. 2. Osteomyelitis lumbar spine. 3. Discitis lumbar spine. 4. History of opiate dependence. TREATMENT AND RECOMMENDATIONS: Opioid risk assessment tool utilized on this patient. She scores high for opioid misuse/dependence on risks evaluation. However, she apparently does have acute infection and symptoms consistent with this. It is recommended to discontinue her Toradol as well as oxycodone. It is also recommended to discontinue cyclobenzaprine as at this age may cause anticholinergic effects. Would recommend that she receive oxycodone without the acetaminophen every 6 hours on p.r.n. basis with hydromorphone 0.5 mg q. 4 hours p.r.n. basis while inpatient. Surgical followup is recommended to determine if further surgical intervention may be necessary for the osteo/discitis. On a long-term basis, caution is recommended with opioid as a sole therapy and in unsupervised setting. MTDD
[2016-05-01 16:00] VITALS: BP 133/88; PULSE 96; TEMP 36.8; O2SAT 100
[2016-05-01] MEDS: CALCITONIN SALMON NA 200 IU/AC 3.7 ML BTL SCH (17:09)
--- NOTE | 2016-05-01 17:12 | Progress Note ---
Internal Med Progress Note Date of Service: May 01, 2016. Provider Documentation: SUBJECTIVE: Patient is seen and examined at bedside. States her back pain is better. Denies any chest pain. Has SOB on exertion. Offers no other complaints. OBJECTIVE: Vital Signs-as noted below Physical Exam: General Appearance:Chronically ill appearing, no apparent distress, +drowsy Head: normocephalic, Atraumatic Eyes: EOMI, PERRL Neck: supple, Trachea midline Respiratory/Chest: Normal breath sounds, CTA, No accessory muscle use Cardiovascular: S1, S2, Tachycardia, No murmur Abdomen/GI:Soft, Non tender, Bowel sounds present Extremities/Musculoskelatal:normal inspection, B/L LE edema, tender Neurologic/Psych:AAOX3, Complete neuro exam could not be performed as patient is drowsy Skin: normal color, warm Lab data as noted below. ASSESSMENT & PLAN: CHRONIC LOW BACK PAIN : Secondary to lumber spinal discitis /osteomyelitis H/O chronic narcotic pain meds abuse ER Discussed pain management with [facility] Advised to increase Neurontin and Baclofen dose Neurontin dose increased to 300 mg TID ( as on 200 mg TID ), Baclofen scheduled dose 10 mg TID High risk for opioid toxicity/abude/dependence Appreciate pain medicine input Pain control per pain medicine Toradol discontinued LUMBER SPINE DISCITIS /OSTEOMYELITIS : Dx with vertebral osteomyelitis s/p bx in 11/2015 Culture + ve staph non-aureus. completed 6 weeks of IV vancomycin on 01/10/16 Recently hospitalized at [facility] for chronic low back/ bilateral legs pain and weakness after MRI at [facility] showed progressive discitis and osteomyelitis at the T11-T12 level. Biopsy specimen + ve for MRSA pt was discharged on 04/25/16 with vancomycin via PICC Continued IV Vancomycin per ID: Follow up appointment in [place] on 05/12 (Per patient's sister: Vanco was prescribed for at [place] for 10 weeks, has medication at home) Follow up blood culture: No growth to date ID on board, appreciate input May need surgical eval at [place] for possible surgical intervention if necessary ELEVATED D DIMER /LOWER EXT PAIN /TACHYCARDIA : D dimer markedly elevated: Patient has underling chronic infection Increased swelling and pain of bilat lower ext High risk for DVT secondary to limited mobility secondary to intractable back pain H/O DVT on coumadin at home (2.5mg daily) INR 1.6 today: continue to monitor LE Doppler: Negative for DVT CTA : Negative for PE Continue PO Coumadin and IV heparin bridge till INR > 2 Monitor INR Will give 7.5mg coumadin today URINARY RETENTION: Currently on arzate Patient doesn't want to do a voiding trial Prefers to follow up with her urologist as outpatient and wants to continue arzate till then PARANOID SCHIZOPHRENIA : continue Clozaril denies of any auditory hallucination H/O Hep C Stable COPD: Continue inhalers Duonebs PRN on chronic oxygen at baseline 3L NC CODE STATUS: FULL CODE DISPOSITION : PT/OT May need placement Consult nutritional services cook Needs follow up with neurosurgery scheduled in [facility] on 05/12/16 PROCEDURES: CTA FOR PE: 1. There is no evidence of pulmonary embolus in the main, lobar, or segmental pulmonary arteries. 2. There is no airspace consolidation typical for pneumonia. Trace pleural effusions are identified. 3. Chronic interstitial/fibrotic changes throughout both lungs are unchanged from 11/29/2015 but progressive from 11/02/2012. 4. Extensive destructive and postoperative changes are again seen in the mid to lower thoracic spine. There is significant paravertebral soft tissue thickening around the lower thoracic region, greatest at T11-T12. This is overall similar in appearance to the 11/29/[address] This could potentially represent a developing pseudoarthrosis. Chronic osteomyelitis would be impossible to exclude. Clinical correlation will be essential. Vital Signs: Date Time Temp Pulse Resp B/P Pulse Ox O2 Delivery O2 Flow Rate FiO2 05/01/16 16:00 36.8 96 18 133/88 100 Room Air 05/01/16 10:31 127/85 05/01/16 08:45 100 Room Air 05/01/16 08:33 100 Nasal Cannula 2.0 05/01/16 07:30 37.3 96 24 156/99 100 Nasal Cannula 2.0 04/30/16 23:55 Nasal Cannula 2.0 04/30/16 23:10 36.7 93 18 141/82 99 Nasal Cannula 2.0 04/30/16 19:45 37.1 109 16 131/83 98 Nasal Cannula 2.0 Lab Results: Results Past 24 Hours Test 05/01/16 05:50 Range/Units White Blood Count 9.96 4.8-10.8 K/uL Red Blood Count 3.49 4.2-5.4 M/uL Hemoglobin 10.2 12.0-16.0 g/dL Hematocrit 32.4 37-47 % Mean Corpuscular Volume 92.8 80-100 fL Mean Corpuscular Hemoglobin 29.2 25-34 pg Mean Corpuscular Hemoglobin Concent 31.5 32-36 g/dl Platelet Count 272 130-400 K/uL Mean Platelet Volume 10.1 7.4-10.4 fL Neutrophils (%) (Auto) 66.9 % Lymphocytes (%) (Auto) 19.1 % Monocytes (%) (Auto) 9.6 % Eosinophils (%) (Auto) 3.2 % Basophils (%) (Auto) 0.6 % Neutrophils # (Auto) 6.66 1.4-6.5 K/uL Lymphocytes # (Auto) 1.90 1.2-3.4 K/uL Monocytes # (Auto) 0.96 0.11-0.59 K/uL Eosinophils # (Auto) 0.32 0-0.5 K/uL Basophils # (Auto) 0.06 0-0.2 K/uL RDW Standard Deviation 53.7 36.4-46.3 fL RDW Coefficient of Variation 15.9 11.5-14.5 % Immature Granulocyte % (Auto) 0.6 % Immature Granulocyte # (Auto) 0.06 0.00-0.02 K/uL Prothrombin Time 17.8 9.0-12.0 SECONDS Prothromb Time International Ratio 1.6 0.9-1.1 Activated Partial Thromboplast Time 58.3 21.0-31.0 SECONDS Partial Thromboplastin Ratio 2.2 Creatinine 0.50 0.60-1.20 mg/dl Est Creatinine Clear Calc Drug Dose 130.2 ml/min Estimated GFR () 125.4 Estimated GFR (Non- 108.2
[2016-05-01] MEDS ORDERED: WARFARIN SOD 2.5 MG TAB PO ONE (17:30)
[2016-05-01] MEDS: WARFARIN SOD 5 MG TAB PO SCH (18:34)
[2016-05-01] MEDS: CLOZAPINE 100 MG TAB PO SCH (22:00)
[2016-05-01 23:21] VITALS: BP 97/66; PULSE 93; TEMP 36.7; O2SAT 99
[2016-05-01] MEDS: TAMSULOSIN HCL 0.4 MG CAP PO SCH (23:21)
[2016-05-01] MEDS: MONTELUKAST SOD 10 MG TAB PO SCH (23:21)
[2016-05-02] MEDS: OXYCODONE HCL IR 5 MG TAB (IMMEDIATE RELEASE) PO PRN ×4 (03:57→21:26)
[2016-05-02 04:25] VITALS: BP 128/83
[2016-05-02] MEDS ORDERED: VANCOMYCIN TROUGH SCH (05:30)
[2016-05-02] MEDS: VANCOMYCIN INJ 1,200 MG in SODIUM CHLORIDE 0.9% 250ML 250 ML IV SCH ×3 (05:55→21:24)
[2016-05-02 06:10] LABS: HEMATOCRIT 34.3 % (37-47); MEAN CELL VOLUME 93.2 fL (80-100); MEAN CORPUSCULAR HEMOGLOBIN 29.3 pg (25-34); MEAN CORPUSCULAR HGB CONC 31.5 g/dl (32-36); MEAN PLATELET VOLUME 9.9 fL (7.4-10.4); PLATELET COUNT 283 K/uL (130-400); RED BLOOD COUNT 3.68 M/uL (4.2-5.4); WHITE BLOOD COUNT 10.14 K/uL (4.8-10.8)
[2016-05-02 06:41] LABS: BUN/CREATININE RATIO 15.7 (10-20); CALCIUM 8.7 mg/dl (8.5-10.1); CREATININE 0.6 mg/dl (0.60-1.20); POTASSIUM 3.4 mmol/L (3.5-5.1)
[2016-05-02 06:45] LABS: INR 2.7 (0.9-1.1); PROTHROMBIN TIME (PATIENT) 30.1 SECONDS (9.0-12.0)
[2016-05-02] MEDS: HEPARIN 25,000 UNIT/500ML D5W 500 ML IV PRN (07:21)
[2016-05-02 07:30] VITALS: O2SAT 99
[2016-05-02 07:38] VITALS: BP 138/86; PULSE 95; TEMP 36.9; O2SAT 99
--- NOTE | 2016-05-02 07:49 | Clinical Documentation Query ---
CLINICAL DOCUMENTATION QUERY Dr. DRUMMOND, In your clinical opinion is this patient being managed for: ( X ) Chronic hypoxic respiratory failure ( ) Other explanation of clinical findings (Please Explain) ( ) Unable to determine (Please Define) ( ) Need to Discuss ( ) Not Agree The medical record reflects the following clinical findings, treatment, and risk factors. Clinical Indicators: 55 yo female presenting with increasing back pain, osteomyelitis. Noted to chronically wear home O2 support/incruse ellipta/breo/singulair. Treatment:continue O2 support, singulair, advair while hospitalized Risk Factors: COPD, former tobacco use Please clarify and document your clinical opinion in the progress notes and discharge summary. Terms such as "probable", "suspected", "likely", "questionable", "possible", or "still to be ruled out" are acceptable. IF IN AGREEMENT, YOU MUST DOCUMENT ABOVE DIAGNOSTIC STATEMENT IN DAILY PROGRESS NOTES AND DISCHARGE SUMMARY. This document is not part of the patient's record. Thank You, Silvia Grider, MEGHAN [phone]
--- NOTE | 2016-05-02 09:07 | Pain Management Progress Note ---
Pain Management Progress Note Date of Service May 02, 2016. Subjective Ms. Murray is a 55 year old white female with osteomyelitis/discitis of the lumbar spine. Patient is taking Oxycodone 10mg x 6 hours for pain. She has utilized Oxycodone twice in the last 24 hours. Patient states that the pain medication is helping somewhat. Patient does request to see psychiatry. Patient is intermittently lethargic and difficult to answer questions. Case discussed with Dr. Joseph Objective Vital Signs: Last Vital Signs Documentation Date Time Temp Pulse Resp B/P Pulse Ox O2 Delivery O2 Flow Rate FiO2 05/02/16 07:38 36.9 95 16 138/86 99 Nasal Cannula 2.0 Physical Exam: GENERAL: Ms. Murray is a 55 year old white female that appears lethargic. She is difficult to awaken. She is drooling all over herself. She intermittently responds to questions. NEURO: Cranial nerves are intact. Laboratory (Last CBC): 05/02/16 05:55 Assessment 1. Post lumbar/thoracic laminectomy syndrome. 2. Osteomyelitis lumbar spine. 3. Discitis lumbar spine. 4. History of opiate dependence. Recommendations 1. Recommend continuing Oxycodone 10mg x 6 hours PRN pain. Do not recommend discharging the patient on narcotics due to history of opioid dependency. 2. Recommend consulting psychiatry. [employer] Voice Recognition This chart was completed in part utilizing [employer] Voice Recognition Software. Random word insertions, pronoun errors, and incomplete sentences are an occasional consequence of this system due to software limitations and ambient noise. Any questions or concerns about the content, text or information contained within the body of this dictation should be directly addressed to the provider for clarification.
[2016-05-02] MEDS: FERROUS SULFATE 325 MG TAB PO SCH ×2 (09:42→18:21)
[2016-05-02] MEDS: ECONAZOLE NITRATE 1% CRM 15 GM TUBE EXT SCH ×4 (09:42→21:18)
[2016-05-02] MEDS: FLUTICASONE/SALMETEROL 250/50 (ADVAIR) 14 PUFF/1 INHALER INH SCH ×2 (09:43→21:18)
[2016-05-02] MEDS: GABAPENTIN 300 MG CAP PO SCH ×3 (09:44→21:21)
[2016-05-02] MEDS: BACLOFEN 10 MG TAB PO SCH ×3 (09:44→21:21)
[2016-05-02] MEDS: DOCUSATE SODIUM 100 MG CAP PO SCH ×2 (10:42→21:21)
[2016-05-02] MEDS: ESCITALOPRAM OXALATE 20 MG TAB PO SCH (10:43)
[2016-05-02] MEDS: PANTOprazole SOD 40 MG TAB PO SCH (10:44)
[2016-05-02] MEDS: CALCIUM CARBONATE 1250MG TAB PO SCH ×2 (10:44→21:22)
[2016-05-02] MEDS: AMANTADINE HCL 100 MG CAP PO SCH ×2 (10:45→21:22)
[2016-05-02] MEDS: FENOFIBRATE 48 MG TAB PO SCH (10:45)
[2016-05-02] MEDS: DOCUSATE SODIUM/SENNA 50/8.6MG TAB PO SCH (10:45)
[2016-05-02] MEDS: LIDODERM (LIDOCAINE) PATCH 5% TD SCH (10:46)
[2016-05-02] MEDS: PERPHENAZINE 2 MG TAB PO SCH ×2 (10:46→21:26)
[2016-05-02] MEDS: CHOLECALCIFEROL 1000 INTER.UNIT TAB PO SCH (10:46)
[2016-05-02] MEDS: ACETAMINOPHEN 325 MG TAB PO PRN ×2 (10:48→15:04)
--- NOTE | 2016-05-02 11:43 | Pharmacy Progress Note ---
Pharmacy Antibiotic Prog Note Date of Service: May 02, 2016. Subjective: The patient is currently receiving Vanco Objective: Height (Feet): 5 Height (Inches): 5.00 Weight (Kilograms): 78.600 Levels: Item Value Date Time Vancomycin Level Trough 14.6 mcg/ml 05/02/16 0555 Vancomycin Level Trough 14.1 mcg/ml 04/30/16 0712 Lab Results (24hrs): Laboratory Tests Test 05/02/16 05:55 BUN/Creatinine Ratio 15.7 Blood Urea Nitrogen 9 mg/dl Creatinine 0.60 mg/dl White Blood Count 10.14 K/uL Assessment & Plan: Pt's trough this AM was slightly subtherapeutic at 14.6 for Osteomyelitis. I have increased the dosing interval from q12 -> to q10 in an effort to raise the trough. 1200mg (15mg/kg) q10 set to start immediately. Pt's renal fxn looks to be consistent with her baseline. Current renal fxn: Scr=0.6, qXyGh=270ju/min. T1 /2=7.3hrs. New trough ordered for 05/03/16 prior to the third dose at 0800. Pt is at a low risk for Vanco accumulation, BMI=28.8. Thank you for consulting the pharmacy kinetic team and including us in the care of Ms. Murray. Pharmacy will continue to follow and will adjust dose/frequency as necessary. Thank you
[2016-05-02] MEDS: LORAZEPAM 0.5 MG TAB PO PRN ×2 (12:07→21:23)
[2016-05-02 13:37] LABS: PARTIAL THROMBOPLASTIN RATIO 1.3
[2016-05-02 15:30] VITALS: BP 125/81; PULSE 94; TEMP 36.8; O2SAT 98; O2SAT 99
[2016-05-02] MEDS ORDERED: POTASSIUM CHLORIDE 10 MEQ TABCR PO STA (15:37)
[2016-05-02] MEDS: CALCITONIN SALMON NA 200 IU/AC 3.7 ML BTL SCH (16:11)
[2016-05-02] MEDS: WARFARIN SOD 5 MG TAB PO SCH (16:27)
--- NOTE | 2016-05-02 17:32 | Progress Note ---
Subjective Date of Service: May 02, 2016. Subjective Pt evaluation today including: conversation w/ patient, conversation w/ family , physical exam, chart review, lab review, review of studies, review of inpatient medication list Saw/examined the patient in room 387 sister in the room with her at bedside patient c/o pain in the legs and back has required Narcan during this admission multiple times due to cessation of breathing with narcotics she is requesting pain medications currently I explained to her that we will start with a lower dose and work our way up and she is agreeable no BMs today Problem List Medical Problems: (1) Anemia Status: Acute (2) Anxiety Status: Acute (3) Back pain Status: Acute (4) Back pain Status: Chronic (5) Chest wall pain Status: Acute (6) Chronic pain Status: Acute (7) Closed stable burst fracture of T8 vertebra Status: Acute (8) Closed T12 fracture Status: Acute (9) Constipation Status: Acute (10) Contusion of head Status: Acute (11) Delusions Status: Acute (12) Depression with suicidal ideation Status: Acute (13) Diarrhea Status: Acute (14) Diffuse abdominal pain Status: Acute (15) Discitis Status: Acute (16) Discitis thoracic region Status: Acute (17) Fall Status: Acute (18) Interstitial lung disease Status: Acute (19) Leukocytosis Status: Acute (20) Lower back pain Status: Acute (21) Mood disorder Status: Acute (22) Osteomyelitis () of jaw (suppurative) Status: Acute (23) Osteomyelitis of spine Status: Acute (24) Post-op pain Status: Acute (25) Precordial chest pain Status: Acute (26) Right low back pain Status: Acute (27) Shortness of breath Status: Acute (28) Suicidal ideations Status: Acute (29) Thoracic back pain Status: Acute (30) Traumatic compression fracture of T8 thoracic vertebra Status: Acute (31) Weakness Status: Acute (32) Wound dehiscence Status: Acute Social History Problems: (1) History of back surgery Status: Acute Review of Systems Constitutional: No chills, No fever, No weakness Abdomen: + constipation, No GI bleeding, No diarrhea, No nausea, No pain, No vomiting Musculoskeletal: + joint pain, + muscle pain, + see HPI Psychiatric: + anxiety Medications Current Inpatient Medications Medications (Trade) Dose Ordered Sig/Janel Route Start Time Stop Time Status Last Admin Dose Admin Albuterol (Ventolin Hfa Inhaler) 2 puffs QID PRN INH 04/28/16 18:45 05/28/16 18:44 Amantadine HCl (Symmetrel Cap) 100 mg BID PO 04/28/16 21:00 05/28/16 20:59 05/02/16 10:45 100 MG Baclofen (Lioresal Tab) 10 mg TID PO 04/28/16 21:00 05/28/16 20:59 05/02/16 14:00 10 MG Calcitonin [place] (Fortical Nasal [place]) 1 spray DAILY@1600 NA 04/29/16 16:00 05/29/16 15:59 05/02/16 16:11 1 SPRAY Cholecalciferol (Vitamin D Tab) 1,000 inter.unit QAM PO 04/29/16 09:00 05/29/16 08:59 05/02/16 10:46 1,000 INTER.UNIT Docusate Sodium (coLACE CAP) 100 mg BID PO 04/28/16 21:00 05/28/16 20:59 05/02/16 10:42 100 MG Econazole Nitrate (Econazole Nitrate 1% Crm) 1 appln QID EXT 04/28/16 21:00 05/28/16 20:59 05/02/16 12:07 1 APPLN Escitalopram Oxalate (Lexapro Tab) 20 mg QAM PO 04/29/16 09:00 05/29/16 08:59 05/02/16 10:43 20 MG Fenofibrate (Tricor Tab) 48 mg QAM PO 04/29/16 09:00 05/29/16 08:59 05/02/16 10:45 48 MG Folic Acid (Folvite Tab) 1 mg DAILY PO 04/29/16 09:00 05/29/16 08:59 05/02/16 10:43 1 MG Gabapentin (Neurontin Cap) 300 mg TID PO 04/28/16 21:00 05/28/16 20:59 05/02/16 14:00 300 MG Lorazepam (Ativan Tab) 0.5 mg BID PRN PO 04/28/16 18:45 05/28/16 18:44 05/02/16 12:07 0.5 MG Montelukast Sodium (Singulair Tab) 10 mg HS PO 04/28/16 21:00 05/28/16 20:59 05/01/16 23:21 10 MG Morphine Sulfate (MoRPHine SULFATE IR TAB) 15 mg Q6 PO 04/29/16 00:00 05/13/16 00:00 Future Hold 04/29/16 18:18 15 MG Perphenazine (Trilafon Tab) 12 mg BID PO 04/28/16 21:00 05/28/16 20:59 05/02/16 10:46 12 MG Senna/Docusate Sodium (Senokot S Tab) 2 tab DAILY PO 04/29/16 09:00 05/29/16 08:59 05/02/16 10:45 2 TAB Tamsulosin HCl (Flomax Cap) 0.4 mg HS PO 04/28/16 21:00 05/28/16 20:59 05/01/16 23:21 0.4 MG Ferrous Sulfate (Feosol Tab) 325 mg BIDM PO 04/29/16 08:00 05/29/16 07:59 05/02/16 09:42 325 MG Miscellaneous Information (Order Awaiting Action) 1 ea QS N/A 04/29/16 00:00 05/29/16 00:00 Pantoprazole Sodium (Protonix Tab) 40 mg QAM PO 04/29/16 09:00 05/29/16 08:59 05/02/16 10:44 40 MG Miscellaneous Information (Order Awaiting Action) 1 ea QS N/A 04/29/16 00:00 05/29/16 00:00 Acetaminophen (Tylenol Tab) 650 mg Q4H PRN PO 04/28/16 19:15 05/28/16 19:14 05/02/16 15:04 650 MG Al Hydrox/Mg Hydrox/Simethicone (Maalox Max Susp) 15 ml Q4H PRN PO 04/28/16 19:15 05/28/16 19:14 Magnesium Hydroxide (Milk Of Magnesia Susp) 30 ml Q6H PRN PO 04/28/16 19:15 05/28/16 19:14 Polyethylene (Miralax Powder Packet) 17 gm DAILY PRN PO 04/28/16 19:30 05/28/16 19:29 04/29/16 16:40 17 GM Zolpidem Tartrate (Ambien Tab) 5 mg HSZ PRN PO 04/28/16 19:15 05/28/16 19:14 Ondansetron HCl (Zofran Inj) 4 mg Q6H PRN IV 04/28/16 19:15 05/28/16 19:14 Bisacodyl (Dulcolax Tab) 10 mg DAILY PRN PO 04/28/16 19:15 05/28/16 19:14 Clozapine (Clozaril Tab) 400 mg HS PO 04/28/16 21:00 05/28/16 20:59 05/01/16 22:00 400 MG Miscellaneous (Iv Fluids Completed) 1 ea PRN PRN N/A 04/28/16 19:45 04/28/17 19:44 Calcium Carbonate (oS-Michael 500 TAB) 1,250 mg BID PO 04/28/16 21:00 05/28/16 20:59 05/02/16 10:44 1,250 MG Vancomycin HCl (Consult) 1 ea UD PRN N/A 04/28/16 20:15 05/28/16 20:14 Ioversol (Optiray 320) 125 ml UD PRN IV 04/28/16 22:00 05/02/16 21:59 Salmeterol Xinafoate/ Fluticasone (Advair Diskus 250/50 Inh) 1 puff BID INH 04/29/16 10:00 05/29/16 09:59 05/02/16 09:43 1 PUFF Warfarin Sodium (Coumadin Tab) 5 mg DAILY@1600 PO 04/30/16 16:00 05/30/16 15:59 05/02/16 16:27 5 MG Lidocaine (Lidoderm Patch 5%) 1 patch QAM TD 04/30/16 16:00 05/30/16 15:59 05/02/16 10:46 1 PATCH Miscellaneous (Remove Lidoderm Patch) 1 ea DAILY@21 N/A 04/30/16 23:00 05/30/16 22:59 05/01/16 22:04 1 EA Oxycodone HCl (Roxicodone Immediate Rel Tab) 10 mg Q6H PRN PO 05/01/16 10:45 05/15/16 10:44 05/02/16 15:53 5 MG Hydromorphone HCl (Dilaudid Inj) 0.5 mg Q4H PRN IV 05/01/16 10:45 05/15/16 10:44 Heparin Sodium (Porcine) 5 ml 5 ml PRN PRN FLUSH 05/01/16 23:45 05/31/16 23:44 05/02/16 15:08 5 ML Vancomycin HCl/ Sodium Chloride (Vancomycin Inj/ Nss 250ml) 274 ml @ 125 mls/hr Q10H IV 05/02/16 12:00 06/13/16 11:59 05/02/16 12:07 125 MLS/HR Objective Vital Signs Date Time Temp Pulse Resp B/P Pulse Ox O2 Delivery O2 Flow Rate FiO2 05/02/16 07:38 36.9 95 16 138/86 99 Nasal Cannula 2.0 05/02/16 07:30 99 Nasal Cannula 2.0 05/02/16 04:25 128/83 05/01/16 23:21 36.7 93 16 97/66 99 Nasal Cannula 2.0 05/01/16 23:20 Nasal Cannula 2.0 Physical Exam General Appearance: + moderate distress (secondary to pain) Respiratory/Chest: lungs clear, normal breath sounds, no respiratory distress, no accessory muscle use Cardiovascular: regular rate, rhythm, no edema, no murmur Abdomen: normal bowel sounds, non tender, soft Extremities: normal inspection, no pedal edema, + pertinent finding (painful ROM of back) Neurologic/Psychiatric: alert, + depressed affect Laboratory Results Last 24 Hours Test 05/02/16 05:55 05/02/16 13:22 White Blood Count 10.14 K/uL Red Blood Count 3.68 M/uL Hemoglobin 10.8 g/dL Hematocrit 34.3 % Mean Corpuscular Volume 93.2 fL Mean Corpuscular Hemoglobin 29.3 pg Mean Corpuscular Hemoglobin Concent 31.5 g/dl RDW Standard Deviation 55.3 fL RDW Coefficient of Variation 16.3 % Platelet Count 283 K/uL Mean Platelet Volume 9.9 fL Prothrombin Time 30.1 SECONDS Prothromb Time International Ratio 2.7 Activated Partial Thromboplast Time 78.8 SECONDS 33.7 SECONDS Partial Thromboplastin Ratio 3.0 1.3 Sodium Level 147 mmol/L Potassium Level 3.4 mmol/L Chloride Level 109 mmol/L Carbon Dioxide Level 27 mmol/L Anion Gap 11.0 mmol/L Blood Urea Nitrogen 9 mg/dl Creatinine 0.60 mg/dl Est Creatinine Clear Calc Drug Dose 108.5 ml/min Estimated GFR () 118.1 Estimated GFR (Non- 101.9 BUN/Creatinine Ratio 15.7 Random Glucose 107 mg/dl Calcium Level 8.7 mg/dl Vancomycin Level Trough 14.6 mcg/ml Assessment and Plan CHRONIC LOW BACK PAIN : 05/02 lumbar spine discitis/osteomyelitis for this, continue IV vanco indefinitely neurosurgery f/u as outpatient on 05/12 continue Neurontin, baclofen appreciate pain management consult oxycodone 10mg q6 PRN will not discharge patient with narcotics; sister is upset with this plan, but will speak with pain management for further input Course: Secondary to lumber spinal discitis /osteomyelitis H/O chronic narcotic pain meds abuse ER Discussed pain management with [facility] Advised to increase Neurontin and Baclofen dose Neurontin dose increased to 300 mg TID ( as on 200 mg TID ), Baclofen scheduled dose 10 mg TID High risk for opioid toxicity/abude/dependence Appreciate pain medicine input Pain control per pain medicine Toradol discontinued LUMBER SPINE DISCITIS /OSTEOMYELITIS : Dx with vertebral osteomyelitis s/p bx in 11/2015 Culture + ve staph non-aureus. completed 6 weeks of IV vancomycin on 01/10/16 Recently hospitalized at [facility] for chronic low back/ bilateral legs pain and weakness after MRI at [facility] showed progressive discitis and osteomyelitis at the T11-T12 level. Biopsy specimen + ve for MRSA pt was discharged on 04/25/16 with vancomycin via PICC Continued IV Vancomycin per ID: Follow up appointment in [place] on 05/12 (Per patient's sister: Vanco was prescribed for at [place] for 10 weeks, has medication at home) Follow up blood culture: No growth to date ID on board, appreciate input May need surgical eval at [place] for possible surgical intervention if necessary ELEVATED D DIMER /LOWER EXT PAIN /TACHYCARDIA : D dimer markedly elevated: Patient has underling chronic infection Increased swelling and pain of bilat lower ext High risk for DVT secondary to limited mobility secondary to intractable back pain H/O DVT on coumadin at home (2.5mg daily) INR 1.6 today: continue to monitor LE Doppler: Negative for DVT CTA : Negative for PE Continue PO Coumadin and IV heparin bridge till INR > 2 Monitor INR Will give 7.5mg coumadin today URINARY RETENTION: Currently on arzate Patient doesn't want to do a voiding trial Prefers to follow up with her urologist as outpatient and wants to continue arzate till then PARANOID SCHIZOPHRENIA : continue Clozaril denies of any auditory hallucination H/O Hep C Stable COPD: Continue inhalers Duonebs PRN on chronic oxygen at baseline 3L NC CODE STATUS: FULL CODE DISPOSITION : PT/OT May need placement Consult social services analyst Needs follow up with neurosurgery scheduled in [facility] on 05/12/16
[2016-05-02] MEDS: MONTELUKAST SOD 10 MG TAB PO SCH (21:20)
[2016-05-02] MEDS: TAMSULOSIN HCL 0.4 MG CAP PO SCH (21:24)
[2016-05-02] MEDS: CLOZAPINE 100 MG TAB PO SCH (21:25)
[2016-05-02 23:04] VITALS: BP 117/81; PULSE 92; TEMP 37.3; O2SAT 99
[2016-05-03] MEDS ORDERED: VANCOMYCIN TROUGH ONE (07:30)
[2016-05-03 07:41] LABS: HEMATOCRIT 36.6 % (37-47); MEAN CELL VOLUME 93.6 fL (80-100); MEAN CORPUSCULAR HEMOGLOBIN 29.9 pg (25-34); MEAN PLATELET VOLUME 9.7 fL (7.4-10.4); PLATELET COUNT 297 K/uL (130-400); RED BLOOD COUNT 3.91 M/uL (4.2-5.4); WHITE BLOOD COUNT 10.31 K/uL (4.8-10.8)
[2016-05-03 07:55] VITALS: BP 118/81; PULSE 103; TEMP 36.7; O2SAT 97
[2016-05-03 07:56] LABS: INR 4.4 (0.9-1.1); PROTHROMBIN TIME (PATIENT) 49.8 SECONDS (9.0-12.0)
[2016-05-03 08:06] LABS: CALCIUM 9.3 mg/dl (8.5-10.1); CREATININE 0.54 mg/dl (0.60-1.20); POTASSIUM 3.9 mmol/L (3.5-5.1)
[2016-05-03] MEDS: PANTOprazole SOD 40 MG TAB PO SCH (08:42)
[2016-05-03] MEDS: FENOFIBRATE 48 MG TAB PO SCH (08:42)
[2016-05-03] MEDS: ESCITALOPRAM OXALATE 20 MG TAB PO SCH (08:42)
[2016-05-03] MEDS: CHOLECALCIFEROL 1000 INTER.UNIT TAB PO SCH (08:42)
[2016-05-03] MEDS: CALCIUM CARBONATE 1250MG TAB PO SCH ×2 (08:43→21:21)
[2016-05-03] MEDS: FLUTICASONE/SALMETEROL 250/50 (ADVAIR) 14 PUFF/1 INHALER INH SCH ×2 (08:43→21:21)
[2016-05-03] MEDS: PERPHENAZINE 2 MG TAB PO SCH ×2 (08:43→21:26)
[2016-05-03] MEDS: BACLOFEN 10 MG TAB PO SCH ×3 (08:43→21:19)
[2016-05-03] MEDS: FERROUS SULFATE 325 MG TAB PO SCH ×2 (08:44→17:16)
[2016-05-03] MEDS: GABAPENTIN 300 MG CAP PO SCH ×3 (08:44→21:20)
[2016-05-03] MEDS: DOCUSATE SODIUM 100 MG CAP PO SCH ×2 (08:45→21:27)
[2016-05-03] MEDS: AMANTADINE HCL 100 MG CAP PO SCH ×2 (08:45→21:20)
[2016-05-03] MEDS: DOCUSATE SODIUM/SENNA 50/8.6MG TAB PO SCH (08:46)
[2016-05-03] MEDS: ECONAZOLE NITRATE 1% CRM 15 GM TUBE EXT SCH ×4 (08:46→21:29)
[2016-05-03] MEDS: ACETAMINOPHEN 325 MG TAB PO PRN (08:48)
[2016-05-03] MEDS: LIDODERM (LIDOCAINE) PATCH 5% TD SCH (08:48)
[2016-05-03] MEDS: VANCOMYCIN INJ 1,200 MG in SODIUM CHLORIDE 0.9% 250ML 250 ML IV SCH ×2 (09:10→17:19)
[2016-05-03] MEDS: OXYCODONE HCL IR 5 MG TAB (IMMEDIATE RELEASE) PO PRN ×3 (10:19→21:19)
[2016-05-03 11:11] LABS: COD UR NEGATIVE NG/ML (CUTOFF=50); HYDROCOD UR NEGATIVE NG/ML (CUTOFF=50); HYDROMOR UR 441 NG/ML (CUTOFF=50); MORPHINE UR 5870 NG/ML (CUTOFF=50); NORHYDROCODONE CONF UR NEGATIVE NG/ML (CUTOFF=50); OXYMORPH UR 73 NG/ML (CUTOFF=50)
[2016-05-03 11:22] VITALS: O2SAT 97
[2016-05-03] MEDS: LORAZEPAM 0.5 MG TAB PO PRN (14:06)
[2016-05-03 14:55] VITALS: BP 113/80; PULSE 105; TEMP 36.7; O2SAT 97
[2016-05-03] MEDS: WARFARIN SOD 5 MG TAB PO SCH (16:00)
--- NOTE | 2016-05-03 16:54 | Progress Note ---
Subjective Date of Service: May 03, 2016. Subjective Pt evaluation today including: conversation w/ patient, physical exam, lab review, review of studies, review of inpatient medication list Saw/examined the patient in room 387 She is doing better today Again - asking for more medications - but agreeable to stay on oxycodone every 6 hours She wants to go home on 05/04 - I let her know that I would not be able to write any prescriptions for home Problem List Medical Problems: (1) Anemia Status: Acute (2) Anxiety Status: Acute (3) Back pain Status: Acute (4) Back pain Status: Chronic (5) Chest wall pain Status: Acute (6) Chronic pain Status: Acute (7) Closed stable burst fracture of T8 vertebra Status: Acute (8) Closed T12 fracture Status: Acute (9) Constipation Status: Acute (10) Contusion of head Status: Acute (11) Delusions Status: Acute (12) Depression with suicidal ideation Status: Acute (13) Diarrhea Status: Acute (14) Diffuse abdominal pain Status: Acute (15) Discitis Status: Acute (16) Discitis thoracic region Status: Acute (17) Fall Status: Acute (18) Interstitial lung disease Status: Acute (19) Leukocytosis Status: Acute (20) Lower back pain Status: Acute (21) Mood disorder Status: Acute (22) Osteomyelitis () of jaw (suppurative) Status: Acute (23) Osteomyelitis of spine Status: Acute (24) Post-op pain Status: Acute (25) Precordial chest pain Status: Acute (26) Right low back pain Status: Acute (27) Shortness of breath Status: Acute (28) Suicidal ideations Status: Acute (29) Thoracic back pain Status: Acute (30) Traumatic compression fracture of T8 thoracic vertebra Status: Acute (31) Weakness Status: Acute (32) Wound dehiscence Status: Acute Social History Problems: (1) History of back surgery Status: Acute Review of Systems Constitutional: + weakness, No chills, No fever Respiratory: No cough, No dyspnea at rest, No dyspnea on exertion, No hemoptysis, No shortness of breath, No sputum, No wheezing Cardiac: No chest pain, No edema, No palpitations Abdomen: No diarrhea, No nausea, No pain, No vomiting Musculoskeletal: + joint pain (back, bilateral leg pain) Medications Current Inpatient Medications Medications (Trade) Dose Ordered Sig/Janel Route Start Time Stop Time Status Last Admin Dose Admin Albuterol (Ventolin Hfa Inhaler) 2 puffs QID PRN INH 04/28/16 18:45 05/28/16 18:44 Amantadine HCl (Symmetrel Cap) 100 mg BID PO 04/28/16 21:00 05/28/16 20:59 05/03/16 08:45 100 MG Baclofen (Lioresal Tab) 10 mg TID PO 04/28/16 21:00 05/28/16 20:59 05/03/16 14:06 10 MG Calcitonin [place] (Fortical Nasal [place]) 1 spray DAILY@1600 NA 04/29/16 16:00 05/29/16 15:59 05/02/16 16:11 1 SPRAY Cholecalciferol (Vitamin D Tab) 1,000 inter.unit QAM PO 04/29/16 09:00 05/29/16 08:59 05/03/16 08:42 1,000 INTER.UNIT Docusate Sodium (coLACE CAP) 100 mg BID PO 04/28/16 21:00 05/28/16 20:59 05/03/16 08:45 100 MG Econazole Nitrate (Econazole Nitrate 1% Crm) 1 appln QID EXT 04/28/16 21:00 05/28/16 20:59 05/03/16 13:18 1 APPLN Escitalopram Oxalate (Lexapro Tab) 20 mg QAM PO 04/29/16 09:00 05/29/16 08:59 05/03/16 08:42 20 MG Fenofibrate (Tricor Tab) 48 mg QAM PO 04/29/16 09:00 05/29/16 08:59 05/03/16 08:42 48 MG Folic Acid (Folvite Tab) 1 mg DAILY PO 04/29/16 09:00 05/29/16 08:59 05/03/16 08:42 1 MG Gabapentin (Neurontin Cap) 300 mg TID PO 04/28/16 21:00 05/28/16 20:59 05/03/16 14:06 300 MG Lorazepam (Ativan Tab) 0.5 mg BID PRN PO 04/28/16 18:45 05/28/16 18:44 05/03/16 14:06 0.5 MG Montelukast Sodium (Singulair Tab) 10 mg HS PO 04/28/16 21:00 05/28/16 20:59 05/02/16 21:20 10 MG Morphine Sulfate (MoRPHine SULFATE IR TAB) 15 mg Q6 PO 04/29/16 00:00 05/13/16 00:00 Future Hold 04/29/16 18:18 15 MG Perphenazine (Trilafon Tab) 12 mg BID PO 04/28/16 21:00 05/28/16 20:59 05/03/16 08:43 12 MG Senna/Docusate Sodium (Senokot S Tab) 2 tab DAILY PO 04/29/16 09:00 05/29/16 08:59 05/03/16 08:46 2 TAB Tamsulosin HCl (Flomax Cap) 0.4 mg HS PO 04/28/16 21:00 05/28/16 20:59 05/02/16 21:24 0.4 MG Ferrous Sulfate (Feosol Tab) 325 mg BIDM PO 04/29/16 08:00 05/29/16 07:59 05/03/16 08:44 325 MG Miscellaneous Information (Order Awaiting Action) 1 ea QS N/A 04/29/16 00:00 05/29/16 00:00 Pantoprazole Sodium (Protonix Tab) 40 mg QAM PO 04/29/16 09:00 05/29/16 08:59 05/03/16 08:42 40 MG Miscellaneous Information (Order Awaiting Action) 1 ea QS N/A 04/29/16 00:00 05/29/16 00:00 Acetaminophen (Tylenol Tab) 650 mg Q4H PRN PO 04/28/16 19:15 05/28/16 19:14 05/03/16 08:48 650 MG Al Hydrox/Mg Hydrox/Simethicone (Maalox Max Susp) 15 ml Q4H PRN PO 04/28/16 19:15 05/28/16 19:14 Magnesium Hydroxide (Milk Of Magnesia Susp) 30 ml Q6H PRN PO 04/28/16 19:15 05/28/16 19:14 Polyethylene (Miralax Powder Packet) 17 gm DAILY PRN PO 04/28/16 19:30 05/28/16 19:29 04/29/16 16:40 17 GM Zolpidem Tartrate (Ambien Tab) 5 mg HSZ PRN PO 04/28/16 19:15 05/28/16 19:14 Ondansetron HCl (Zofran Inj) 4 mg Q6H PRN IV 04/28/16 19:15 05/28/16 19:14 Bisacodyl (Dulcolax Tab) 10 mg DAILY PRN PO 04/28/16 19:15 05/28/16 19:14 Clozapine (Clozaril Tab) 400 mg HS PO 04/28/16 21:00 05/28/16 20:59 05/02/16 21:25 400 MG Miscellaneous (Iv Fluids Completed) 1 ea PRN PRN N/A 04/28/16 19:45 04/28/17 19:44 Calcium Carbonate (oS-Michael 500 TAB) 1,250 mg BID PO 04/28/16 21:00 05/28/16 20:59 05/03/16 08:43 1,250 MG Vancomycin HCl (Consult) 1 ea UD PRN N/A 04/28/16 20:15 05/28/16 20:14 Salmeterol Xinafoate/ Fluticasone (Advair Diskus 250/50 Inh) 1 puff BID INH 04/29/16 10:00 05/29/16 09:59 05/03/16 08:43 1 PUFF Warfarin Sodium (Coumadin Tab) 5 mg DAILY@1600 PO 04/30/16 16:00 05/30/16 15:59 05/02/16 16:27 5 MG Lidocaine (Lidoderm Patch 5%) 1 patch QAM TD 04/30/16 16:00 05/30/16 15:59 05/03/16 08:48 1 PATCH Miscellaneous (Remove Lidoderm Patch) 1 ea DAILY@21 N/A 04/30/16 23:00 05/30/16 22:59 05/02/16 21:18 1 EA Oxycodone HCl (Roxicodone Immediate Rel Tab) 10 mg Q6H PRN PO 05/01/16 10:45 05/15/16 10:44 05/03/16 10:19 10 MG Hydromorphone HCl (Dilaudid Inj) 0.5 mg Q4H PRN IV 05/01/16 10:45 05/15/16 10:44 Heparin Sodium (Porcine) 5 ml 5 ml PRN PRN FLUSH 05/01/16 23:45 05/31/16 23:44 05/03/16 12:40 5 ML Vancomycin HCl/ Sodium Chloride (Vancomycin Inj/ Nss 250ml) 274 ml @ 125 mls/hr Q10H IV 05/02/16 12:00 06/13/16 11:59 05/03/16 09:10 125 MLS/HR Objective Vital Signs Date Time Temp Pulse Resp B/P Pulse Ox O2 Delivery O2 Flow Rate FiO2 05/03/16 14:55 36.7 105 17 113/80 97 Nasal Cannula 2.0 05/03/16 11:22 97 Nasal Cannula 2.0 05/03/16 07:55 36.7 103 12 118/81 97 Nasal Cannula 2.0 05/03/16 07:40 Nasal Cannula 2.0 05/03/16 00:00 Nasal Cannula 2.0 05/02/16 23:04 37.3 92 15 117/81 99 Nasal Cannula 2.0 Physical Exam General Appearance: no apparent distress Respiratory/Chest: lungs clear, normal breath sounds, no respiratory distress, no accessory muscle use Cardiovascular: no edema, no murmur, + tachycardia Abdomen: normal bowel sounds, non tender, soft Extremities: normal inspection, no pedal edema Neurologic/Psychiatric: alert, + depressed affect Laboratory Results Last 24 Hours Test 05/03/16 07:32 White Blood Count 10.31 K/uL Red Blood Count 3.91 M/uL Hemoglobin 11.7 g/dL Hematocrit 36.6 % Mean Corpuscular Volume 93.6 fL Mean Corpuscular Hemoglobin 29.9 pg Mean Corpuscular Hemoglobin Concent 32.0 g/dl RDW Standard Deviation 56.3 fL RDW Coefficient of Variation 16.5 % Platelet Count 297 K/uL Mean Platelet Volume 9.7 fL Prothrombin Time 49.8 SECONDS Prothromb Time International Ratio 4.4 Sodium Level 146 mmol/L Potassium Level 3.9 mmol/L Chloride Level 109 mmol/L Carbon Dioxide Level 27 mmol/L Anion Gap 10.0 mmol/L Blood Urea Nitrogen 8 mg/dl Creatinine 0.54 mg/dl Est Creatinine Clear Calc Drug Dose 120.5 ml/min Estimated GFR () 122.3 Estimated GFR (Non- 105.5 BUN/Creatinine Ratio 15.0 Random Glucose 109 mg/dl Calcium Level 9.3 mg/dl Magnesium Level 2.0 mg/dl Vancomycin Level Trough 19.7 mcg/ml Assessment and Plan CHRONIC LOW BACK PAIN : 05/03 secondary to discitis/osteomyelitis plan is to continue IV vanco oxycodone for now - no scripts on discharge as per pain management continue Neurontin, baclofen 05/02 lumbar spine discitis/osteomyelitis for this, continue IV vanco indefinitely neurosurgery f/u as outpatient on 05/12 continue Neurontin, baclofen appreciate pain management consult oxycodone 10mg q6 PRN will not discharge patient with narcotics; sister is upset with this plan, but will speak with pain management for further input Course: Secondary to lumber spinal discitis /osteomyelitis H/O chronic narcotic pain meds abuse ER Discussed pain management with [facility] ,[place] Advised to increase Neurontin and Baclofen dose Neurontin dose increased to 300 mg TID ( as on 200 mg TID ), Baclofen scheduled dose 10 mg TID High risk for opioid toxicity/abude/dependence Appreciate pain medicine input Pain control per pain medicine Toradol discontinued LUMBER SPINE DISCITIS /OSTEOMYELITIS : Dx with vertebral osteomyelitis s/p bx in 11/2015 Culture + ve staph non-aureus. completed 6 weeks of IV vancomycin on 01/10/16 Recently hospitalized at [facility] for chronic low back/ bilateral legs pain and weakness after MRI at [facility] showed progressive discitis and osteomyelitis at the T11-T12 level. Biopsy specimen + ve for MRSA pt was discharged on 04/25/16 with vancomycin via PICC Continued IV Vancomycin per ID: Follow up appointment in [place] on 05/12 (Per patient's sister: Vanco was prescribed for at [place] for 10 weeks, has medication at home) Follow up blood culture: No growth to date ID on board, appreciate input May need surgical eval at [place] for possible surgical intervention if necessary ELEVATED D DIMER /LOWER EXT PAIN /TACHYCARDIA : D dimer markedly elevated: Patient has underling chronic infection Increased swelling and pain of bilat lower ext High risk for DVT secondary to limited mobility secondary to intractable back pain H/O DVT on coumadin at home (2.5mg daily) INR 1.6 today: continue to monitor LE Doppler: Negative for DVT CTA : Negative for PE Continue PO Coumadin and IV heparin bridge till INR > 2 Monitor INR Will give 7.5mg coumadin today URINARY RETENTION: Currently on arzate Patient doesn't want to do a voiding trial Prefers to follow up with her urologist as outpatient and wants to continue arzate till then PARANOID SCHIZOPHRENIA : continue Clozaril denies of any auditory hallucination H/O Hep C Stable COPD: Continue inhalers Duonebs PRN on chronic oxygen at baseline 3L NC CODE STATUS: FULL CODE DISPOSITION : PT/OT May need placement Consult director clinical information services Needs follow up with neurosurgery scheduled in [facility] on 05/12/16
[2016-05-03] MEDS: CALCITONIN SALMON NA 200 IU/AC 3.7 ML BTL SCH (17:15)
[2016-05-03] MEDS: CLOZAPINE 100 MG TAB PO SCH (21:26)
[2016-05-03] MEDS: TAMSULOSIN HCL 0.4 MG CAP PO SCH (21:27)
[2016-05-03] MEDS: MONTELUKAST SOD 10 MG TAB PO SCH (21:28)
[2016-05-03] MEDS: POLYETHYLENE (MIRALAX) 17 GM PACK PO PRN (21:39)
[2016-05-04 00:14] VITALS: BP 115/69; PULSE 100; TEMP 36.7; TEMP 36.8; O2SAT 99
[2016-05-04] MEDS: VANCOMYCIN INJ 1,200 MG in SODIUM CHLORIDE 0.9% 250ML 250 ML IV SCH ×2 (04:23→14:06)
[2016-05-04 05:50] LABS: HEMATOCRIT 36.2 % (37-47); MEAN CELL VOLUME 93.8 fL (80-100); MEAN CORPUSCULAR HEMOGLOBIN 29.5 pg (25-34); MEAN CORPUSCULAR HGB CONC 31.5 g/dl (32-36); MEAN PLATELET VOLUME 9.4 fL (7.4-10.4); PLATELET COUNT 285 K/uL (130-400); RED BLOOD COUNT 3.86 M/uL (4.2-5.4); WHITE BLOOD COUNT 12.37 K/uL (4.8-10.8)
[2016-05-04 06:12] LABS: PARTIAL THROMBOPLASTIN RATIO 1.6
[2016-05-04 06:19] LABS: BUN/CREATININE RATIO 16.4 (10-20); CALCIUM 9.1 mg/dl (8.5-10.1); CREATININE 0.7 mg/dl (0.60-1.20); POTASSIUM 4.2 mmol/L (3.5-5.1)
[2016-05-04 07:37] VITALS: BP 140/90; PULSE 101; TEMP 37; O2SAT 95
[2016-05-04] MEDS: DOCUSATE SODIUM 100 MG CAP PO SCH (08:48)
[2016-05-04] MEDS: FERROUS SULFATE 325 MG TAB PO SCH (08:48)
[2016-05-04] MEDS: FLUTICASONE/SALMETEROL 250/50 (ADVAIR) 14 PUFF/1 INHALER INH SCH (08:48)
[2016-05-04] MEDS: LIDODERM (LIDOCAINE) PATCH 5% TD SCH (08:49)
[2016-05-04] MEDS: GABAPENTIN 300 MG CAP PO SCH ×2 (08:49→14:06)
[2016-05-04] MEDS: FENOFIBRATE 48 MG TAB PO SCH (08:49)
[2016-05-04] MEDS: AMANTADINE HCL 100 MG CAP PO SCH (08:50)
[2016-05-04] MEDS: DOCUSATE SODIUM/SENNA 50/8.6MG TAB PO SCH (08:50)
[2016-05-04] MEDS: CALCIUM CARBONATE 1250MG TAB PO SCH (08:50)
[2016-05-04] MEDS: ESCITALOPRAM OXALATE 20 MG TAB PO SCH (08:50)
[2016-05-04] MEDS: PANTOprazole SOD 40 MG TAB PO SCH (08:50)
[2016-05-04] MEDS: CHOLECALCIFEROL 1000 INTER.UNIT TAB PO SCH (08:50)
[2016-05-04] MEDS: BACLOFEN 10 MG TAB PO SCH ×2 (08:51→14:06)
[2016-05-04] MEDS: PERPHENAZINE 2 MG TAB PO SCH (08:52)
[2016-05-04] MEDS: ECONAZOLE NITRATE 1% CRM 15 GM TUBE EXT SCH ×3 (08:53→17:11)
[2016-05-04] MEDS: OXYCODONE HCL IR 5 MG TAB (IMMEDIATE RELEASE) PO PRN ×2 (10:21→17:10)
[2016-05-04] MEDS: ACETAMINOPHEN 325 MG TAB PO PRN (11:14)
[2016-05-04] MEDS ORDERED: VANCOMYCIN TROUGH SCH ×3 (13:30→23:30)
--- NOTE | 2016-05-04 14:21 | Progress Note ---
Subjective Date of Service: May 04, 2016. Subjective Pt evaluation today including: conversation w/ patient, physical exam, lab review, review of studies, review of inpatient medication list Saw/examined the patient in room 387 she is doing okay today, eager to get discharged Has follow-up appointments set up for next week; has ambulated Arzate catheter in place Problem List Medical Problems: (1) Anemia Status: Acute (2) Anxiety Status: Acute (3) Back pain Status: Acute (4) Back pain Status: Chronic (5) Chest wall pain Status: Acute (6) Chronic pain Status: Acute (7) Closed stable burst fracture of T8 vertebra Status: Acute (8) Closed T12 fracture Status: Acute (9) Constipation Status: Acute (10) Contusion of head Status: Acute (11) Delusions Status: Acute (12) Depression with suicidal ideation Status: Acute (13) Diarrhea Status: Acute (14) Diffuse abdominal pain Status: Acute (15) Discitis Status: Acute (16) Discitis thoracic region Status: Acute (17) Fall Status: Acute (18) Interstitial lung disease Status: Acute (19) Leukocytosis Status: Acute (20) Lower back pain Status: Acute (21) Mood disorder Status: Acute (22) Osteomyelitis () of jaw (suppurative) Status: Acute (23) Osteomyelitis of spine Status: Acute (24) Post-op pain Status: Acute (25) Precordial chest pain Status: Acute (26) Right low back pain Status: Acute (27) Shortness of breath Status: Acute (28) Suicidal ideations Status: Acute (29) Thoracic back pain Status: Acute (30) Traumatic compression fracture of T8 thoracic vertebra Status: Acute (31) Weakness Status: Acute (32) Wound dehiscence Status: Acute Social History Problems: (1) History of back surgery Status: Acute Review of Systems Respiratory: No cough, No shortness of breath, No sputum Cardiac: No chest pain Abdomen: No diarrhea, No nausea, No pain, No vomiting Musculoskeletal: + joint pain (chronic joint pain, multiple joints) Heme: No abnormal bleeding/bruising Medications Current Inpatient Medications Medications (Trade) Dose Ordered Sig/Janel Route Start Time Stop Time Status Last Admin Dose Admin Albuterol (Ventolin Hfa Inhaler) 2 puffs QID PRN INH 04/28/16 18:45 05/28/16 18:44 Amantadine HCl (Symmetrel Cap) 100 mg BID PO 04/28/16 21:00 05/28/16 20:59 05/04/16 08:50 100 MG Baclofen (Lioresal Tab) 10 mg TID PO 04/28/16 21:00 05/28/16 20:59 05/04/16 14:06 10 MG Calcitonin [place] (Fortical Nasal [place]) 1 spray DAILY@1600 NA 04/29/16 16:00 05/29/16 15:59 05/03/16 17:15 1 SPRAY Cholecalciferol (Vitamin D Tab) 1,000 inter.unit QAM PO 04/29/16 09:00 05/29/16 08:59 05/04/16 08:50 1,000 INTER.UNIT Docusate Sodium (coLACE CAP) 100 mg BID PO 04/28/16 21:00 05/28/16 20:59 05/04/16 08:48 100 MG Econazole Nitrate (Econazole Nitrate 1% Crm) 1 appln QID EXT 04/28/16 21:00 05/28/16 20:59 05/04/16 14:08 1 APPLN Escitalopram Oxalate (Lexapro Tab) 20 mg QAM PO 04/29/16 09:00 05/29/16 08:59 05/04/16 08:50 20 MG Fenofibrate (Tricor Tab) 48 mg QAM PO 04/29/16 09:00 05/29/16 08:59 05/04/16 08:49 48 MG Folic Acid (Folvite Tab) 1 mg DAILY PO 04/29/16 09:00 05/29/16 08:59 05/04/16 08:50 1 MG Gabapentin (Neurontin Cap) 300 mg TID PO 04/28/16 21:00 05/28/16 20:59 05/04/16 14:06 300 MG Lorazepam (Ativan Tab) 0.5 mg BID PRN PO 04/28/16 18:45 05/28/16 18:44 05/03/16 14:06 0.5 MG Montelukast Sodium (Singulair Tab) 10 mg HS PO 04/28/16 21:00 05/28/16 20:59 05/03/16 21:28 10 MG Morphine Sulfate (MoRPHine SULFATE IR TAB) 15 mg Q6 PO 04/29/16 00:00 05/13/16 00:00 Future Hold 04/29/16 18:18 15 MG Perphenazine (Trilafon Tab) 12 mg BID PO 04/28/16 21:00 05/28/16 20:59 05/04/16 08:52 12 MG Senna/Docusate Sodium (Senokot S Tab) 2 tab DAILY PO 04/29/16 09:00 05/29/16 08:59 05/04/16 08:50 2 TAB Tamsulosin HCl (Flomax Cap) 0.4 mg HS PO 04/28/16 21:00 05/28/16 20:59 05/03/16 21:27 0.4 MG Ferrous Sulfate (Feosol Tab) 325 mg BIDM PO 04/29/16 08:00 05/29/16 07:59 05/04/16 08:48 325 MG Miscellaneous Information (Order Awaiting Action) 1 ea QS N/A 04/29/16 00:00 05/29/16 00:00 Pantoprazole Sodium (Protonix Tab) 40 mg QAM PO 04/29/16 09:00 05/29/16 08:59 05/04/16 08:50 40 MG Miscellaneous Information (Order Awaiting Action) 1 ea QS N/A 04/29/16 00:00 05/29/16 00:00 Acetaminophen (Tylenol Tab) 650 mg Q4H PRN PO 04/28/16 19:15 05/28/16 19:14 05/04/16 11:14 650 MG Al Hydrox/Mg Hydrox/Simethicone (Maalox Max Susp) 15 ml Q4H PRN PO 04/28/16 19:15 05/28/16 19:14 Magnesium Hydroxide (Milk Of Magnesia Susp) 30 ml Q6H PRN PO 04/28/16 19:15 05/28/16 19:14 Polyethylene (Miralax Powder Packet) 17 gm DAILY PRN PO 04/28/16 19:30 05/28/16 19:29 05/03/16 21:39 17 GM Zolpidem Tartrate (Ambien Tab) 5 mg HSZ PRN PO 04/28/16 19:15 05/28/16 19:14 Ondansetron HCl (Zofran Inj) 4 mg Q6H PRN IV 04/28/16 19:15 05/28/16 19:14 Bisacodyl (Dulcolax Tab) 10 mg DAILY PRN PO 04/28/16 19:15 05/28/16 19:14 Clozapine (Clozaril Tab) 400 mg HS PO 04/28/16 21:00 05/28/16 20:59 05/03/16 21:26 400 MG Miscellaneous (Iv Fluids Completed) 1 ea PRN PRN N/A 04/28/16 19:45 04/28/17 19:44 Calcium Carbonate (oS-Michael 500 TAB) 1,250 mg BID PO 04/28/16 21:00 05/28/16 20:59 05/04/16 08:50 1,250 MG Vancomycin HCl (Consult) 1 ea UD PRN N/A 04/28/16 20:15 05/28/16 20:14 Salmeterol Xinafoate/ Fluticasone (Advair Diskus 250/50 Inh) 1 puff BID INH 04/29/16 10:00 05/29/16 09:59 05/04/16 08:48 1 PUFF Warfarin Sodium (Coumadin Tab) 5 mg DAILY@1600 PO 04/30/16 16:00 05/30/16 15:59 05/02/16 16:27 5 MG Lidocaine (Lidoderm Patch 5%) 1 patch QAM TD 04/30/16 16:00 05/30/16 15:59 05/04/16 08:49 1 PATCH Miscellaneous (Remove Lidoderm Patch) 1 ea DAILY@21 N/A 04/30/16 23:00 05/30/16 22:59 05/03/16 21:00 1 EA Hydromorphone HCl (Dilaudid Inj) 0.5 mg Q4H PRN IV 05/01/16 10:45 05/15/16 10:44 Heparin Sodium (Porcine) 5 ml 5 ml PRN PRN FLUSH 05/01/16 23:45 05/31/16 23:44 05/04/16 08:48 5 ML Vancomycin HCl/ Sodium Chloride (Vancomycin Inj/ Nss 250ml) 274 ml @ 125 mls/hr Q10H IV 05/02/16 12:00 06/13/16 11:59 05/04/16 14:06 125 MLS/HR Oxycodone HCl (Roxicodone Immediate Rel Tab) 5 mg Q4HWA PRN PO 05/03/16 20:00 05/17/16 19:59 05/04/16 10:21 5 MG Objective Vital Signs Date Time Temp Pulse Resp B/P Pulse Ox O2 Delivery O2 Flow Rate FiO2 05/04/16 08:30 Nasal Cannula 2.0 05/04/16 07:37 37.0 101 18 140/90 95 Nasal Cannula 2.0 05/04/16 00:55 Nasal Cannula 2.0 05/04/16 00:14 36.8 100 20 115/69 99 Room Air 2.0 05/03/16 19:45 Nasal Cannula 2.0 05/03/16 17:20 Nasal Cannula 2.0 05/03/16 14:55 36.7 105 17 113/80 97 Nasal Cannula 2.0 Physical Exam General Appearance: no apparent distress Respiratory/Chest: lungs clear, normal breath sounds, no respiratory distress, no accessory muscle use Cardiovascular: regular rate, rhythm, no edema, no murmur Abdomen: normal bowel sounds, non tender, soft Extremities: normal inspection, no pedal edema Neurologic/Psychiatric: + pertinent finding (mild tremor at baseline) Laboratory Results Last 24 Hours Test 05/04/16 05:45 05/04/16 13:14 White Blood Count 12.37 K/uL Red Blood Count 3.86 M/uL Hemoglobin 11.4 g/dL Hematocrit 36.2 % Mean Corpuscular Volume 93.8 fL Mean Corpuscular Hemoglobin 29.5 pg Mean Corpuscular Hemoglobin Concent 31.5 g/dl RDW Standard Deviation 56.7 fL RDW Coefficient of Variation 16.6 % Platelet Count 285 K/uL Mean Platelet Volume 9.4 fL Activated Partial Thromboplast Time 40.4 SECONDS Partial Thromboplastin Ratio 1.6 Sodium Level 145 mmol/L Potassium Level 4.2 mmol/L Chloride Level 106 mmol/L Carbon Dioxide Level 32 mmol/L Anion Gap 7.0 mmol/L Blood Urea Nitrogen 12 mg/dl Creatinine 0.70 mg/dl Est Creatinine Clear Calc Drug Dose 93.0 ml/min Estimated GFR () 112.3 Estimated GFR (Non- 96.9 BUN/Creatinine Ratio 16.4 Random Glucose 111 mg/dl Calcium Level 9.1 mg/dl Magnesium Level 2.0 mg/dl Vancomycin Level Trough 20.4 mcg/ml Assessment and Plan CHRONIC LOW BACK PAIN : 05/04 plan for the patient today is to d/c Arzate voiding trial d/c home with IV vanco Oxycodone PRN while inpatient - no narcotics on discharge Neurosurgery follow-up on 05/09 as outpatient at [place] possible d/c later this afternoon or early on 05/05 05/03 secondary to discitis/osteomyelitis plan is to continue IV vanco oxycodone for now - no scripts on discharge as per pain management continue Neurontin, baclofen 05/02 lumbar spine discitis/osteomyelitis for this, continue IV vanco indefinitely neurosurgery f/u as outpatient on 05/12 continue Neurontin, baclofen appreciate pain management consult oxycodone 10mg q6 PRN will not discharge patient with narcotics; sister is upset with this plan, but will speak with pain management for further input Course: Secondary to lumber spinal discitis /osteomyelitis H/O chronic narcotic pain meds abuse ER Discussed pain management with [facility] Advised to increase Neurontin and Baclofen dose Neurontin dose increased to 300 mg TID ( as on 200 mg TID ), Baclofen scheduled dose 10 mg TID High risk for opioid toxicity/abude/dependence Appreciate pain medicine input Pain control per pain medicine Toradol discontinued LUMBER SPINE DISCITIS /OSTEOMYELITIS : Dx with vertebral osteomyelitis s/p bx in 11/2015 Culture + ve staph non-aureus. completed 6 weeks of IV vancomycin on 01/10/16 Recently hospitalized at [facility] for chronic low back/ bilateral legs pain and weakness after MRI at [facility] showed progressive discitis and osteomyelitis at the T11-T12 level. Biopsy specimen + ve for MRSA pt was discharged on 04/25/16 with vancomycin via PICC Continued IV Vancomycin per ID: Follow up appointment in [place] on 05/12 (Per patient's sister: Vanco was prescribed for at [place] for 10 weeks, has medication at home) Follow up blood culture: No growth to date ID on board, appreciate input May need surgical eval at [place] for possible surgical intervention if necessary ELEVATED D DIMER /LOWER EXT PAIN /TACHYCARDIA : D dimer markedly elevated: Patient has underling chronic infection Increased swelling and pain of bilat lower ext High risk for DVT secondary to limited mobility secondary to intractable back pain H/O DVT on coumadin at home (2.5mg daily) INR 1.6 today: continue to monitor LE Doppler: Negative for DVT CTA : Negative for PE Continue PO Coumadin and IV heparin bridge till INR > 2 Monitor INR Will give 7.5mg coumadin today URINARY RETENTION: Currently on arzate Patient doesn't want to do a voiding trial Prefers to follow up with her urologist as outpatient and wants to continue arzate till then PARANOID SCHIZOPHRENIA : continue Clozaril denies of any auditory hallucination H/O Hep C Stable COPD: Continue inhalers Duonebs PRN on chronic oxygen at baseline 3L NC CODE STATUS: FULL CODE DISPOSITION : PT/OT May need placement Consult on site services specialist Needs follow up with neurosurgery scheduled in [facility] on 05/12/16
--- NOTE | 2016-05-04 14:45 | Pharmacy Progress Note ---
Pharmacy Antibiotic Prog Note Date of Service: May 04, 2016. Subjective: The patient is currently receiving Vancomycin 1,200mg IV every 10 hours. The patient is currently on day # 7 of Vancomycin IV therapy while admitted. Pt is on chronic vancomycin for lumbar spine discitis/osteomyelitis Objective: Height (Feet): 5 Height (Inches): 5.00 Weight (Kilograms): 78.600 Levels: Item Value Date Time Vancomycin Level Trough 20.4 mcg/ml 05/04/16 1314 Lab Results (24hrs): Laboratory Tests Test 05/04/16 05:45 BUN/Creatinine Ratio 16.4 Blood Urea Nitrogen 12 mg/dl Creatinine 0.70 mg/dl White Blood Count 12.37 K/uL Micro Results: Item Value Date Time Blood Culture - Final Complete 04/28/16 2230 Blood NO GROWTH Blood Culture - Final Complete 04/28/16 2233 Blood NO GROWTH Assessment & Plan: 55yo female receiving IV Vancomycin chronically for lumbar spine discitis/ osteomyelitis. Dose has been adjusted upwards throughout this admission to ensure therapeutic trough levels of 15-20mcg/ml for adequate penetration of osteo. Scr slightly bumped today from 0.54 --> 0.7mg/dl. Checked trough earlier than planned to ensure level is not supratherapeutic. Previous level was on the high end of range at 19.7mcg/ml/ With this increase in Scr pt is at risk for trough > 20mcg/ml. PLAN: * Vancomycin trough slightly supratherauetic at 20.4mcg/ml * Extend dosing interval to allow increased vancomycin clearance * CHANGE TO: Vancomycin 1,200mg IV every 12hrs * Goal trough level estimate: between 15 - 20 mcg/mL for complication infection (osteo) * Will re-order a trough level in a few days as vancomycin has extended duration of therapy. Pharmacy will continue to follow and will adjust dose/frequency as necessary. Thank you
[2016-05-04] MEDS: LORAZEPAM 0.5 MG TAB PO PRN (15:36)
[2016-05-04] MEDS: CALCITONIN SALMON NA 200 IU/AC 3.7 ML BTL SCH (15:45)
[2016-05-04 16:15] VITALS: BP 117/79; PULSE 110; TEMP 36.6; O2SAT 99
[2016-05-04 16:20] LABS: INR 2.5 (0.9-1.1); PROTHROMBIN TIME (PATIENT) 27.7 SECONDS (9.0-12.0)
[2016-05-04] MEDS ORDERED: NRN300 PO (16:25)
--- NOTE | 2016-05-04 16:28 | Discharge Instructions ---
Discharge Instructions Date of Service May 04, 2016. Admission Reason for Admission: Back Pain Discharge Discharge Diagnosis / Problem: Lumbar Discitis; Osteomyelitis Discharge Goals Goal(s): Decrease discomfort, Improve function, Diagnostic testing, Therapeutic intervention Activity Recommendations Activity Limitations: resume your previous activity (as tolerated; use assisted device; no driving, operating heavy machinery with opioid medications) . Instructions / Follow-Up Instructions / Follow-Up Please follow-up with Dr. Adam on May 11 @ 1:50PM You will get a call to follow-up with the anticoagulation clinic to check your Coumadin (INR) levels Follow-up with neurosurgery on May 09 at [place] Outpatient pain management follow-up Outpatient urology follow-up Current Hospital Diet Patient's current hospital diet: Regular Diet Discharge Diet Recommended Diet: Regular Diet Pending Studies Studies pending at discharge: no Medical Emergencies . Who to Call and When: Medical Emergencies: If at any time you feel your situation is an emergency, please call 911 immediately. . Non-Emergent Contact Non-Emergency issues call your: Primary Care Provider . . "Provider Documentation" section prepared by Aman Villalta. VTE Core Measure Inpt VTE Proph given/why not?: Warfarin (Coumadin) [place] Drug Monitoring Program Search Results: patient reviewed within database Drug Monitoring Findings: Multiple narcotic prescriptions noted - patient is to stop taking all medications prior to admission - sister is aware and she handles all medications
[2016-05-04 16:36] VITALS: BP 117/79; PULSE 110; TEMP 36.6; O2SAT 99
--- NOTE | 2016-05-04 16:40 | Discharge Summary ---
Discharge Summary Date of Service May 04, 2016. Discharge Summary Admission Date: Apr 29, 2016 at 11:25 Discharge Date: May 04, 2016 Discharge Disposition: Home Principal Diagnosis: Lumbar Discitis/Osteomyelitis Chronic Lumbar Back Pain Urinary Retention Paranoid Schizophrenia Medication Reconciliation New Medications: Gabapentin (Gabapentin) 300 Mg Cap 300 MG PO TID for 30 Days, #90 CAP Continued Medications: Acetaminophen (Tylenol) 500 Mg Tab 1000 MG PO Q12 PRN for Pain, TAB MAX 4 TABS BECAUSE OF HEP C Amantadine HCl (Amantadine HCl) 100 Mg Cap 100 MG PO BID Baclofen (Lioresal) 10 Mg Tab 10 MG PO BID PRN for Muscle Spasms, TAB Calcitonin ([place]) (Calcitonin [place]) 200 Unit/Act Spr 1 SPRAY NA DAILY@1600 ALTERNATE NOSTRIL Calcium Carbonate (Calcium Carbonate) 1,250 Mg Tab 1 TAB PO BID Cholecalciferol (D 1000) 1,000 Unit Tab 1000 UNIT PO QAM Clozapine (Clozapine) 100 Mg Tab 400 MG PO HS, TAB Docusate Sodium (Docusate Sodium) 100 Mg Cap 100 MG PO BID, CAP Econazole Nitrate (Econazole Nitrate Crm 1% 30 Gm) 90 Appln/30 Gm Cr 1 APPLN TOP QID Escitalopram Oxalate (Escitalopram Oxalate) 20 Mg Tab 20 MG PO QAM Fenofibrate (Fenofibrate) 48 Mg Tab 48 MG PO QAM Ferrous Sulfate (Ferrous Sulfate) 325 Mg Tab 325 MG PO BIDM Fluticasone Furoate-Vilanterol (Breo Ellipta) 1 Inh Inh 1 PUFF INH DAILY@1600 Folic Acid (Folvite) 1 Mg Tab 1 MG PO DAILY, TAB Lorazepam (Ativan) 0.5 Mg Tab 0.5 MG PO BID PRN for Anxiety, TAB Magnesium Hydroxide (Milk of Magnesia 400 mg/5Ml) 1 Brionna Brionna 1 DOSE PO DAILY PRN for Constipation Montelukast Sodium (Singulair) 10 Mg Tab 10 MG PO HS for 90 Days, TAB 1 Refill Omeprazole (Prilosec) 20 Mg Capcr 20 MG PO QAM, CAP Perphenazine (Trilafon) 4 Mg Tab 12 MG PO AMPM, TAB Senna/Docusate Sod (Senokot S) 1 Tab Tab 2 TAB PO DAILY, TAB TAKE AT NOON Tamsulosin Hcl (Flomax) 0.4 Mg Cap 0.4 MG PO HS, CAP Umeclidinium [place] (Incruse Ellipta) 62.5 Mcg/Inh Inh 1 PUFF INH DAILY Vancomycin HCl in Sodium Chlor (Vancomycin Hydrochloride/ 1-0.9 gm/150Ml-%) 1 Inj Inj 1 GM IV Q12 Warfarin Sod (Jantoven) 2.5 Mg Tab 2.5 MG PO DAILY, TAB Discontinued Medications: Gabapentin (Neurontin) 100 Mg Cap 200 MG PO TID, CAP Morphine Sulfate (Morphine Sulfate Ir) 15 Mg Tab 15 MG PO Q6H Admission Information HPI (per Admitting provider): This is a 55 y/o female with PMH listed below who presents to ED with intractable back pain. Pt has hx of T8-10 compression fracture s/p T6-11 laminectomy and fixation and resection of intraspinal extradural lesion 06/[address] Caballero. She was treated for vertebral osteomyelitis s/p bx in 11/2015 treated with vancomycin x 6 weeks completed 01/10/16, 11/29 cx growing staph non- aureus. Pt was recently hospitalized at [facility] for chronic low back/ bilateral legs pain and weakness after MRI at [facility] showed progressive discitis and osteomyelitis at the T11-T12 level. She was seen by neurosurgery who recommended against surgery at that time. She underwent CT guided bx of lesions. Cx was positive for staph non aureus resistant to methicillin. Pt was placed on vancomycin. She was evaluated by ID who recommended surgery for source control with timing to be determined by neurosurgery. She was discharged 3 days ago on 04/25/16 with vancomycin via PICC and morphine sulfate 15 mg q6 prn. She has an appointment with neurosurgery on 05/09/2016. She was instructed to f/u with ID in [place] in 3-4 weeks. Pt now presents to the ER for increase in her chronic pain upon waking up this morning. No recent fall. She took 1 dose of morphine at home but it did not relieve her pain. She rates her pain 8/10. She states Dilaudid helped her in ER. She reports associated bilateral leg weakness. Pt reports inability to ambulate secondary to pain. Denies paresthesias in the groin or legs. She notes chronic urinary incontinence and retention which is unchanged. She reports chronic constipation with last BM 2 days ago. She reports chronic cough and SOB which are unchanged. She reports hot sweats at home but afebrile when she checks her temp at home. No chills. States mood has been up and down but not currently feeling depressed. Denies suicidal ideation or hallucinations. Physical Exam (per Admitting): General Appearance: WD/WN, + pertinent finding (mildly anxious) Head: normocephalic, atraumatic Eyes: normal inspection, sclerae normal ENT: hearing grossly normal Neck: supple, trachea midline Respiratory/Chest: lungs clear, normal breath sounds, no respiratory distress Cardiovascular: no murmur, + tachycardia Abdomen/GI: normal bowel sounds, non tender, soft Back: + pertinent finding (small dressing over prior thoracic biopsy site. no erythema noted. was unable to tolerate being on her side long enough for me do a full examination of her back. stated she needed to stop exam secondary to pain. negative straight leg raise bilaterally) Neurologic/Psych: alert, + pertinent finding (mildly anxious. sensation to light touch grossly intact BLLE. able to flex/ extend bilateral ankles 5/5 but unable to lift bilateral legs off the bed secondary to pain. ) Skin: normal color, warm/dry Hospital Course ADDENDUM patient's sister came to slate picker patient, upset that patient would not be sent home with any narcotic pain pills - she states that she has had long-term opioid use and worried about withdrawal symptoms - I stated that we should taper down the oxycodone to hydrocodone, a low dose and only three times daily - sister agreed and states she is the one that will be giving her pills and making sure she does not take too many - patient to return with any respiratory depression - sister is aware. Total of 12 pills given and she will see neurosurgery as outpatient on May 09 CHRONIC LOW BACK PAIN : 05/04 plan for the patient today is to d/c Arzate voiding trial d/c home with IV vanco Oxycodone PRN while inpatient - no narcotics on discharge Neurosurgery follow-up on 05/09 as outpatient at [facility] d/c later this afternoon or early on 05/05 05/03 secondary to discitis/osteomyelitis plan is to continue IV vanco oxycodone for now - no scripts on discharge as per pain management continue Neurontin, baclofen 05/02 lumbar spine discitis/osteomyelitis for this, continue IV vanco indefinitely neurosurgery f/u as outpatient on 05/12 continue Neurontin, baclofen appreciate pain management consult oxycodone 10mg q6 PRN will not discharge patient with narcotics; sister is upset with this plan, but will speak with pain management for further input Course: Secondary to lumber spinal discitis /osteomyelitis H/O chronic narcotic pain meds abuse ER Discussed pain management with [facility] Advised to increase Neurontin and Baclofen dose Neurontin dose increased to 300 mg TID ( as on 200 mg TID ), Baclofen scheduled dose 10 mg TID High risk for opioid toxicity/abude/dependence Appreciate pain medicine input Pain control per pain medicine Toradol discontinued LUMBER SPINE DISCITIS /OSTEOMYELITIS : Dx with vertebral osteomyelitis s/p bx in 11/2015 Culture + ve staph non-aureus. completed 6 weeks of IV vancomycin on 01/10/16 Recently hospitalized at [facility] for chronic low back/ bilateral legs pain and weakness after MRI at [facility] showed progressive discitis and osteomyelitis at the T11-T12 level. Biopsy specimen + ve for MRSA pt was discharged on 04/25/16 with vancomycin via PICC Continued IV Vancomycin per ID: Follow up appointment in [place] on 05/12 (Per patient's sister: Vanco was prescribed for at [place] for 10 weeks, has medication at home) Follow up blood culture: No growth to date ID on board, appreciate input May need surgical eval at [place] for possible surgical intervention if necessary ELEVATED D DIMER /LOWER EXT PAIN /TACHYCARDIA : D dimer markedly elevated: Patient has underling chronic infection Increased swelling and pain of bilat lower ext High risk for DVT secondary to limited mobility secondary to intractable back pain H/O DVT on coumadin at home (2.5mg daily) INR 1.6 today: continue to monitor LE Doppler: Negative for DVT CTA : Negative for PE Continue PO Coumadin and IV heparin bridge till INR > 2 Monitor INR Will give 7.5mg coumadin today URINARY RETENTION: Currently on arzate Patient doesn't want to do a voiding trial Prefers to follow up with her urologist as outpatient and wants to continue arzate till then PARANOID SCHIZOPHRENIA : continue Clozaril denies of any auditory hallucination H/O Hep C Stable COPD: Continue inhalers Duonebs PRN on chronic oxygen at baseline 3L NC CODE STATUS: FULL CODE DISPOSITION : PT/OT May need placement Consult patient services technician Needs follow up with neurosurgery scheduled in [facility] on 05/09/16 Total time spent on discharge = 45 minutes This includes examination of the patient, discharge planning, medication reconciliation, and communication with other providers. Discharge Instructions Please follow-up with Dr. Adam on May 11 @ 1:50PM You will get a call to follow-up with the anticoagulation clinic to check your Coumadin (INR) levels Follow-up with neurosurgery on May 09 at [place] Outpatient pain management follow-up Outpatient urology follow-up Additional Copies To Naveed Adam III, M.D.
[2016-05-04] MEDS: WARFARIN SOD 5 MG TAB PO SCH (17:10)
[2016-05-04] MEDS ORDERED: HYDR-3419 PO (18:03)
[2016-05-05] MEDS ORDERED: VANCOMYCIN INJ 1,200 MG in SODIUM CHLORIDE 0.9% 250ML 250 ML IV SCH (02:00)
[2016-05-31] MEDS ORDERED: FLUT1INH7 (06:17)
[2016-10-18] MEDS ORDERED: ATR25 PO (11:50)
[2016-10-18] MEDS ORDERED: CFT250 PO (12:01)
[2016-10-18] MEDS ORDERED: GABA1CAP PO (12:01)
[2016-11-26] MEDS ORDERED: CLOZ100T18 PO (06:09)
[2016-11-26] MEDS ORDERED: PERP1TAB11 PO ×2 (06:17→09:04)
[2016-11-26] MEDS ORDERED: UMEC1INH PO (06:19)
[2016-11-26] MEDS ORDERED: FLUT1INH INH (06:20)
[2016-11-26] MEDS ORDERED: DOCU100C31 PO (06:22)
[2016-11-26] MEDS ORDERED: MONT1TAB3 PO (08:47)
[2016-11-26] MEDS ORDERED: ACET1TAB84 PO (09:04)
[2016-11-26] MEDS ORDERED: FLUT0.15 NAE (09:04)
[2016-11-26] MEDS ORDERED: BACL1TAB PO (09:04)
[2016-11-26] MEDS ORDERED: NAPR1TAB9 PO (09:10)
[2016-11-26] MEDS ORDERED: VNTHFA/IN INH (10:53)
[2016-11-26] MEDS ORDERED: ATV/1 PO (10:56)
[2016-11-26] MEDS ORDERED: TAMS0.4C38 PO (11:38)
[2016-11-26] MEDS ORDERED: SPCCR30 TOP (12:13)
[2016-11-26] MEDS ORDERED: SENN-65 PO (12:13)
[2016-11-26] MEDS ORDERED: MCLIN (15:22)
[2016-11-26] MEDS ORDERED: MOML PO (15:22)
[2016-11-26] MEDS ORDERED: TRC48 PO (17:03)
[2016-11-26] MEDS ORDERED: LXP/20 PO (17:03)
[2016-11-26] MEDS ORDERED: FERR325T PO (18:03)
[2016-11-26] MEDS ORDERED: CHOL1TAB53 PO (18:12)
[2016-11-26] MEDS ORDERED: RANI150T2 PO (18:26)
== END 2016-05-04 18:15 | disposition home health service (06) | DRG 540 ==
LOC: ENRESERVTM → ENRESERVDT → EDBD 06:56 → C.EDA 06:57 → C.MSN 18:43 → OBSVTOIN 04-29 11:25 → C.MSN 04-29 12:01
PROVIDERS: ADMIT Hospitalist; ATTEND Family Medicine
DX: M46.26 Osteomyelitis of vertebra, lumbar region (principal); F20.0 Paranoid schizophrenia; F11.20 Opioid dependence, uncomplicated; M46.46 Discitis, unspecified, lumbar region; J44.9 Chronic obstructive pulmonary disease, unspecified; B18.2 Chronic viral hepatitis C; K21.9 Gastro-esophageal reflux disease without esophagitis; M81.0 Age-related osteoporosis without current pathological fracture; R33.9 Retention of urine, unspecified; G89.29 Other chronic pain; Z79.01 Long term (current) use of anticoagulants; Z87.891 Personal history of nicotine dependence; Z90.710 Acquired absence of both cervix and uterus; Z86.718 Personal history of other venous thrombosis and embolism; Z87.01 Personal history of pneumonia (recurrent); Z99.81 Dependence on supplemental oxygen; B95.7 Other staphylococcus as the cause of diseases classified elsewhere

== ENCOUNTER → 2016-05-08 | Outpatient (CLI) | payer OTHER ==
[~2016-05-08] MED LIST changes: +ACET1TAB84 PO; +ATR25 PO; +ATV/1 PO; +BACL1TAB PO; +BUPR100T8 PO; +BUPR150T5 PO; -CALC500C70 PO; +CALCTAB27 PO; +CEFU1TAB33 PO; +CEFU1TAB35 PO; +CFT250 PO; +CHOL1TAB53 PO; +CLOZ100T18 PO; +DOCU100C31 PO; +FERR325T PO; +FLUT0.15 NAE; +FLUT1INH7; +FOLI1TAB7 PO; +GABA-113 PO; +GABA1CAP PO; +GABA1CAP5 PO; +GABA400C PO; +HYDR-3419 PO; +HYDR-4330 PO; +HYDR-5688 PO; +LXP/20 PO; +MAGNSUS73 PO; +MCLIN; +MOML PO; +MONT1TAB3 PO; +NAPR1TAB9 PO; +NF84 PO; +NRN300 PO; +NRN400 PO; +OXYC-57 PO; -OXYC1TAB3 PO; +PERP1TAB11 PO; +PRED20TA2 PO; +RANI150T2 PO; +SENN-65 PO; +SPCCR30 TOP; +TAMS0.4C38 PO; +TRC48 PO; +UMEC1INH PO; +VANC1INJ IV; +WARF5TAB90 PO; +ZOLE5INJ INJ
[2016-05-08 10:00] LABS: BASO % 0.4 %; BASO ABS # 0.05 K/uL (0-0.2); COMPLETE YES; EOS % 4.4 %; HEMATOCRIT 35.1 % (37-47); IG% 0.4 %; LYMPH % 18.4 %; LYMPH ABS # 2.28 K/uL (1.2-3.4); MEAN CELL VOLUME 93.1 fL (80-100); MEAN CORPUSCULAR HGB CONC 32.2 g/dl (32-36); MEAN PLATELET VOLUME 10.9 fL (7.4-10.4); MONO % 11.5 %; NEUT % 64.9 %; PLATELET COUNT 304 K/uL (130-400); RED BLOOD COUNT 3.77 M/uL (4.2-5.4); WHITE BLOOD COUNT 12.42 K/uL (4.8-10.8)
[2016-05-08 10:23] LABS: BLOOD UREA NITROGEN 14 mg/dl (7-18); BUN/CREATININE RATIO 23.4 (10-20); CALCIUM 9.1 mg/dl (8.5-10.1); CARBON DIOXIDE 28 mmol/L (21-32); CHLORIDE 108 mmol/L (98-107); CREATININE 0.61 mg/dl (0.60-1.20); GLUCOSE 99 mg/dl (70-99); SODIUM 144 mmol/L (136-145)
[2016-05-08 10:24] LABS: C-REACTIVE PROTEIN 3.21 mg/dl (0-0.29)
== END | disposition home or self-care (01) ==
LOC: C.LABSPEC 09:46
PROVIDERS: ATTEND Student in an Organized Health Care Education/Training Program
DX: M46.26 Osteomyelitis of vertebra, lumbar region (principal); B95.7 Other staphylococcus as the cause of diseases classified elsewhere

== ENCOUNTER 2016-05-09 21:52 | Emergency (ER) | payer OTHER ==
[~2016-05-09] VITALS: Ht 165.1 cm; Wt 81.1 kg
[~2016-05-09 21:52] MED LIST changes: -ACET-1256 PO; -ACET1TAB84 PO; -ATR25 PO; -ATV/1 PO; -AZIT250T PO; -BACL1TAB PO; -BUPR100T8 PO; -BUPR150T5 PO; -CALCTAB27 PO; -CEFU1TAB33 PO; -CEFU1TAB35 PO; -CFT250 PO; -CHOL1TAB53 PO; -CLOZ100T18 PO; -DOCU100C31 PO; -FERR325T PO; -FLUT0.15 NAE; -FLUT1INH7; -FOLI1TAB7 PO; -GABA-112 PO; -GABA-113 PO; -GABA1CAP PO; -GABA1CAP5 PO; -GABA400C PO; -HYDR-4330 PO; -HYDR-5688 PO; -LXP/20 PO; -MCLIN; -MOML PO; -MONT1TAB3 PO; -NAPR1TAB9 PO; -NRN400 PO; -OXYC-57 PO; -PERP1TAB11 PO; -PRED20TA PO; -PRED20TA2 PO; -RANI150T2 PO; -SENN-65 PO; -SPCCR30 TOP; -TAMS0.4C38 PO; -TRC48 PO; -UMEC1INH PO; -VNTHFA/IN INH; -WARF5TAB90 PO; -ZOLE5INJ INJ
[2016-05-09 22:03] VITALS: TEMP 36.9; Ht 165.1 cm; Wt 81.1 kg
[2016-05-09] MEDS ORDERED: GABA-113 PO (22:07)
[2016-05-09] MEDS ORDERED: KETOROLAC TROMETHAMINE 60 MG/2 ML VIAL IM STA (22:09)
--- NOTE | 2016-05-09 22:11 | EMERGENCY ROOM VISIT NOTE ---
History Report prepared by Stanley: Litzy Snyder Under the Supervision of: Jodie StephensO. 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 The patient rates her pain as a 10/10 in severity. She states that she had both femurs replaced and fears that they are going bad. The patient states that movement increases her pain. She states that her pain is mostly where her femur meets her pelvis. The patient states that her PCP would no longer prescribe her narcotics due to her history of abuse and she was unsure how to deal with the pain causing her to come to the ED tonight. The patient denies any constipation or urinary symptoms. The patient states that she is seen at [facility] for pain management. 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 Review of Systems See HPI for pertinent positives and negatives. A total of ten systems were reviewed and were otherwise negative. Past Medical & Surgical Medical Problems: (1) Accidental drug overdose (2) Alcohol abuse (3) Aspiration pneumonia (4) Back pain (5) Cataract (6) Chronic hepatitis C (7) Chronic obstructive lung disease (8) Chronic paranoid schizophrenia (9) Closed fracture of femur (10) COPD (chronic obstructive pulmonary disease) (11) Deep venous thrombosis (12) Depression (13) Drug abuse (14) Gastroesophageal reflux disease (15) Hepatitis C (16) Hypoxia (17) Hysterectomy (18) Opiate abuse, continuous (19) Osteomyelitis (20) Osteoporosis (21) Past Psych Meds (22) Psychosis (23) S/P ORIF (open reduction internal fixation) fracture (24) Schizoaffective disorder (25) Seizure (26) Suicidal ideation (27) Tinea (28) Tobacco user Surgical Problems: (1) H/O colonoscopy (2) History of hysterectomy (3) S/p thoracic spinal surgery (4) S/P tonsillectomy Family History FH: lung cancer GRANDMOTHER Thyroid disorder MOTHER SISTER Social History Smoking Status: Former Smoker Alcohol Use: none Drug Use: other Marital Status: single Housing Status: lives with family Occupation Status: disabled Current/Historical Medications Scheduled Amantadine HCl (Amantadine HCl), 100 MG PO BID Azithromycin (Zithromax), 250 MG PO DAILY/UD Calcitonin ([place]) (Calcitonin [place]), 1 SPRAY NA DAILY@1600 Calcium Carbonate (Calcium Carbonate), 1,250 MG PO BID Cholecalciferol (D 1000), 1,000 UNIT PO QAM Clozapine (Clozapine), 400 MG PO HS Docusate Sodium (Docusate Sodium), 100 MG PO BID Econazole Nitrate (Econazole Nitrate Crm 1% 30 Gm), 1 APPLN TOP QID Escitalopram Oxalate (Escitalopram Oxalate), 20 MG PO QAM Fenofibrate (Fenofibrate), 48 MG PO QAM Ferrous Sulfate (Ferrous Sulfate), 325 MG PO BIDM Fluticasone Furoate-Vilanterol (Breo Ellipta), 1 PUFF INH DAILY@1600 Folic Acid (Folvite), 1 MG PO DAILY Gabapentin (Neurontin), 300 MG PO TID Montelukast Sodium (Singulair), 10 MG PO HS Omeprazole (Prilosec), 20 MG PO QAM Perphenazine (Trilafon), 12 MG PO AMPM Prednisone (Prednisone), 20 MG PO DAILY/UD Senna/Docusate Sod (Senokot S), 2 TAB PO DAILY Tamsulosin Hcl (Flomax), 0.4 MG PO HS Umeclidinium [place] (Incruse Ellipta), 1 PUFF INH DAILY Warfarin Sod (Jantoven), 2.5 MG PO DAILY Scheduled PRN Acetaminophen (Tylenol), 500 MG PO TID PRN for Pain Albuterol Hfa (Ventolin Hfa), 2 PUFFS INH Q6H PRN for SOB/Wheezing Baclofen (Lioresal), 10 MG PO BID PRN for Muscle Spasms Hydrocodone/Acetaminophen 5MG/325MG ([place] 5MG/325MG), 1 TAB PO TID PRN for Pain Lorazepam (Ativan), 1 MG PO BID PRN for Anxiety Allergies Coded Allergies: Haloperidol (Verified Allergy, Unknown, 04/28/16) [place] (Verified Allergy, Unknown, ., 04/28/16) Molindone (Verified Adverse Reaction, Intermediate, PT FEELS LIKE SHES "JUMPING OUT OF HER SKIN", 04/28/16) Morphine and Related (Verified Adverse Reaction, Intermediate, DROWSY, 05/01) px was drowsy w/ pinpoint pupils and minimally responsive. stable VS. Following Morphine IR 15mg - 3 doses in prior 24 hours. Naloxone 0.4mg admin 3 times during that period. Fluphenazine (Verified Adverse Reaction, Unknown, confusion, 04/28/16) Physical Exam Vital Signs Date Time Temp Pulse Resp B/P Pulse Ox O2 Delivery O2 Flow Rate FiO2 05/09/16 22:03 36.9 104 20 142/89 96 Nasal Cannula 2.0 Physical Exam GENERAL: Awake, alert, well-appearing, in no distress HENT: Normocephalic, atraumatic. Oropharynx unremarkable. EYES: Normal conjunctiva. Sclera non-icteric. NECK: Supple. No nuchal rigidity. FROM. No JVD. RESPIRATORY: Clear to auscultation. CARDIAC: Regular rate, normal rhythm. Extremities warm and well perfused. Pulses equal. ABDOMEN: Soft, non-distended. No tenderness to palpation. No rebound or guarding. No masses. RECTAL: Deferred. MUSCULOSKELETAL: Chest examination reveals no tenderness. The back is symmetrical on inspection without obvious abnormality. There is no CVA tenderness to palpation. No joint edema. LOWER EXTREMITIES: Lifts both legs off bed, strength is symmetric bilaterally, tenderness along entire leg bilaterally. No edema. No discoloration. NEURO: Normal sensorium. No sensory or motor deficits noted. SKIN: No rash or jaundice noted. Medical Decision & Procedures Medications Administered Medications (Trade) Dose Ordered Sig/Janel Route Start Time Stop Time Status Last Admin Dose Admin Ketorolac Tromethamine (Toradol Inj) 60 mg NOW STAT IM 05/09/16 22:09 05/09/16 22:10 DC 05/09/16 22:30 60 MG ED Course 2200: The patient was evaluated in room C5 . A complete history and physical exam was performed. Medical Decision Differential diagnoses include but are not limited to; Sciatic, chronic leg pain , musculoskeletal pain, herniated disc. I have reviewed the patient's prior evaluations patient has visited the emergency department for the same complaint 4 times in the past month. Patient has no evidence of cauda equina syndrome. Patient is neurologically intact in her bilateral lower extremities. Patient was given IM Toradol. I discussed the evaluation with the patient bedside and I feel that she stable for discharge Impression Primary Impression: Bilateral leg pain Scribe Attestation The scribe's documentation has been prepared under my direction and personally reviewed by me in its entirety. I confirm that the note above accurately reflects all work, treatment, procedures, and medical decision making performed by me. Departure Information Dispostion Home / Self-Care Referrals No Doctor, Assigned (PCP) Patient Instructions Leg Low Back Pain Poss Causes, My [facility] Additional Instructions Continue to take her home pain medications. Follow-up with her primary care physician for further evaluation. Return for any difficulty walking or any concerns
[2016-05-09] MEDS ORDERED: VNTHFA/IN INH (22:13)
[2016-05-09] MEDS ORDERED: ACET-1256 PO (22:17)
[2016-05-09] MEDS ORDERED: ATV/1 PO (22:20)
[2016-05-09] MEDS ORDERED: HYDR-5688 PO (22:21)
[2016-05-09] MEDS ORDERED: AZIT250T PO (22:24)
[2016-05-09] MEDS ORDERED: PRED20TA PO (22:26)
[2016-05-09 23:58] VITALS: BP 121/82; PULSE 97; O2SAT 100
[2016-05-31] MEDS ORDERED: FLUT1INH7 (06:17)
[2016-10-18] MEDS ORDERED: ATR25 PO (11:50)
[2016-10-18] MEDS ORDERED: GABA1CAP PO (12:01)
[2016-10-18] MEDS ORDERED: CFT250 PO (12:01)
[2016-11-26] MEDS ORDERED: CLOZ100T18 PO (06:09)
[2016-11-26] MEDS ORDERED: PERP1TAB11 PO ×2 (06:17→09:04)
[2016-11-26] MEDS ORDERED: UMEC1INH PO (06:19)
[2016-11-26] MEDS ORDERED: FLUT1INH INH (06:20)
[2016-11-26] MEDS ORDERED: DOCU100C31 PO (06:22)
[2016-11-26] MEDS ORDERED: MONT1TAB3 PO (08:47)
[2016-11-26] MEDS ORDERED: FLUT0.15 NAE (09:04)
[2016-11-26] MEDS ORDERED: BACL1TAB PO (09:04)
[2016-11-26] MEDS ORDERED: ACET1TAB84 PO (09:04)
[2016-11-26] MEDS ORDERED: NAPR1TAB9 PO (09:10)
[2016-11-26] MEDS ORDERED: VNTHFA/IN INH (10:53)
[2016-11-26] MEDS ORDERED: ATV/1 PO (10:56)
[2016-11-26] MEDS ORDERED: TAMS0.4C38 PO (11:38)
[2016-11-26] MEDS ORDERED: SENN-65 PO (12:13)
[2016-11-26] MEDS ORDERED: SPCCR30 TOP (12:13)
[2016-11-26] MEDS ORDERED: MCLIN (15:22)
[2016-11-26] MEDS ORDERED: MOML PO (15:22)
[2016-11-26] MEDS ORDERED: LXP/20 PO (17:03)
[2016-11-26] MEDS ORDERED: TRC48 PO (17:03)
[2016-11-26] MEDS ORDERED: FERR325T PO (18:03)
[2016-11-26] MEDS ORDERED: CHOL1TAB53 PO (18:12)
[2016-11-26] MEDS ORDERED: RANI150T2 PO (18:26)
== END 2016-05-09 23:58 | disposition home or self-care (01) ==
LOC: EDBD 21:52 → C.EDC 21:53
DX: M79.604 Pain in right leg (principal); M79.605 Pain in left leg; J44.9 Chronic obstructive pulmonary disease, unspecified; Z79.899 Other long term (current) drug therapy; Z79.01 Long term (current) use of anticoagulants; Z79.52 Long term (current) use of systemic steroids; Z86.718 Personal history of other venous thrombosis and embolism; K21.9 Gastro-esophageal reflux disease without esophagitis

== ENCOUNTER 2016-05-15 19:38 | Emergency (ER) | payer OTHER ==
[~2016-05-15] VITALS: Ht 165.1 cm; Wt 81.0 kg
[~2016-05-15 19:38] MED LIST changes: -ACET1TAB84 PO; -ATR25 PO; -BACL1TAB PO; -BUPR100T8 PO; -BUPR150T5 PO; -CALCTAB27 PO; -CEFU1TAB33 PO; -CEFU1TAB35 PO; -CFT250 PO; -CHOL1TAB53 PO; -CIPR-255 PO; -CLOZ100T18 PO; -DOCU100C31 PO; -FERR1TAB62 PO; -FLUT0.15 NAE; -FLUT1INH7; -FOLI1TAB7 PO; -GABA-112 PO; -GABA1CAP PO; -GABA1CAP5 PO; -GABA400C PO; -HYDR-4330 PO; -LEVO750T23 PO; -LXP/20 PO; -MCLIN; -MCRB100HP PO; -MOML PO; -MONT1TAB3 PO; -NAPR1TAB9 PO; -NRN400 PO; -OXYC-57 PO; -PERP4TAB37 PO; -PHEN-876 PO; -PRED20TA2 PO; -RANI150T2 PO; -RISP1TAB68 PO; -RSP1 PO; -SENN-65 PO; -SENN1TAB65 PO; -SPCCR30 TOP; -SULF800T23 PO; -TAMS0.4C38 PO; -TRC48 PO; -UMEC1INH PO; -WARF5TAB90 PO; -ZOLE5INJ INJ
[2016-05-15 19:54] VITALS: Ht 165.1 cm; Wt 81.0 kg
[2016-05-15] MEDS ORDERED: GABA400C PO (20:50)
[2016-05-15] MEDS ORDERED: KETOROLAC TROMETHAMINE 60 MG/2 ML VIAL IM STA (21:19)
--- NOTE | 2016-05-15 22:00 | DIAGNOSTIC IMAGING REPORT ---
Pelvis and right hip 5 views CLINICAL HISTORY: Right hip pain COMPARISON STUDY: 03/15/2016 FINDINGS: There are postsurgical changes of bilateral hip pinning. 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 No acute fractures or dislocations are visualized. There is heterotopic ossification superior to the proximal left femur. IMPRESSION: Postsurgical change. No acute fractures. Electronically signed by: Bismark Galdamez M.D. 05/15/2016 9:59 PM Dictated Date/Time: 05/15/2016 9:57 PM
--- NOTE | 2016-05-15 22:24 | EMERGENCY ROOM VISIT NOTE ---
History Report prepared by Stanley: Lexy Wing Under the Supervision of: Dr. Clemente Mosqueda D.O. First contact with patient: 19:43 Chief Complaint: LEG PAIN,LEG INJURY Stated Complaint: R LEG PAIN History of Present Illness The patient is a 55 year old female who presents to the Emergency Room with complaints of worsening right leg pain. She was brought to the ED via EMS. She rates her discomfort as a 9/10. Movement worsens her pain. She denies any injury but reports she can no longer walk because of the pain and states "I think I may have broken my right hip". The patient denies any other complaints at this time. Source of History: patient Onset: [employer] Position: leg (right) Symptom Intensity: 9/10 Timing: worsening Modifying Factors (Worsening): movement Review of Systems See HPI for pertinent positives & negatives. A total of 10 systems reviewed and were otherwise negative. Past Medical & Surgical Medical Problems: (1) Accidental drug overdose (2) Alcohol abuse (3) Aspiration pneumonia (4) Back pain (5) Cataract (6) Chronic hepatitis C (7) Chronic obstructive lung disease (8) Chronic paranoid schizophrenia (9) Closed fracture of femur (10) COPD (chronic obstructive pulmonary disease) (11) Deep venous thrombosis (12) Depression (13) Drug abuse (14) Gastroesophageal reflux disease (15) Hepatitis C (16) Hypoxia (17) Hysterectomy (18) Opiate abuse, continuous (19) Osteomyelitis (20) Osteoporosis (21) Past Psych Meds (22) Psychosis (23) S/P ORIF (open reduction internal fixation) fracture (24) Schizoaffective disorder (25) Seizure (26) Suicidal ideation (27) Tinea (28) Tobacco user Surgical Problems: (1) H/O colonoscopy (2) History of hysterectomy (3) S/p thoracic spinal surgery (4) S/P tonsillectomy Family History FH: lung cancer GRANDMOTHER Thyroid disorder MOTHER SISTER Social History Smoking Status: Never Smoker Alcohol Use: none Drug Use: other Marital Status: single Housing Status: lives with family Occupation Status: disabled Current/Historical Medications Scheduled Amantadine HCl (Amantadine HCl), 100 MG PO BID Azithromycin (Zithromax), 250 MG PO DAILY/UD Calcitonin ([place]) (Calcitonin [place]), 1 SPRAY NA DAILY@1600 Calcium Carbonate (Calcium Carbonate), 1,250 MG PO BID Cholecalciferol (D 1000), 1,000 UNIT PO QAM Clozapine (Clozapine), 100 MG PO TID Docusate Sodium (Docusate Sodium), 100 MG PO BID Econazole Nitrate (Econazole Nitrate Crm 1% 30 Gm), 1 APPLN TOP QID Escitalopram Oxalate (Escitalopram Oxalate), 20 MG PO QAM Fenofibrate (Fenofibrate), 48 MG PO QAM Ferrous Sulfate (Ferrous Sulfate), 325 MG PO BIDM Fluticasone Furoate-Vilanterol (Breo Ellipta), 1 PUFF INH DAILY@1600 Folic Acid (Folvite), 1 MG PO DAILY Gabapentin (Neurontin), 400 MG PO TID Montelukast Sodium (Singulair), 10 MG PO HS Omeprazole (Prilosec), 20 MG PO QAM Perphenazine (Trilafon), 12 MG PO AMPM Prednisone (Prednisone), 20 MG PO DAILY/UD Senna/Docusate Sod (Senokot S), 2 TAB PO DAILY Tamsulosin Hcl (Flomax), 0.4 MG PO HS Umeclidinium [place] (Incruse Ellipta), 1 PUFF INH DAILY Warfarin Sod ([place]), 2.5 MG PO DAILY Scheduled PRN Acetaminophen (Tylenol), 500 MG PO TID PRN for Pain Albuterol Hfa (Ventolin Hfa), 2 PUFFS INH Q6H PRN for SOB/Wheezing Baclofen (Lioresal), 10 MG PO BID PRN for Muscle Spasms Hydrocodone/Acetaminophen 5MG/325MG ([place] 5MG/325MG), 1 TAB PO TID PRN for Pain Lorazepam (Ativan), 1 MG PO BID PRN for Anxiety Allergies Coded Allergies: Haloperidol (Verified Allergy, Unknown, 04/28/16) [place] (Verified Allergy, Unknown, ., 04/28/16) Molindone (Verified Adverse Reaction, Intermediate, PT FEELS LIKE SHES "JUMPING OUT OF HER SKIN", 04/28/16) Morphine and Related (Verified Adverse Reaction, Intermediate, DROWSY, 05/01) px was drowsy w/ pinpoint pupils and minimally responsive. stable VS. Following Morphine IR 15mg - 3 doses in prior 24 hours. Naloxone 0.4mg admin 3 times during that period. Fluphenazine (Verified Adverse Reaction, Unknown, confusion, 04/28/16) Physical Exam Vital Signs Date Time Temp Pulse Resp B/P Pulse Ox O2 Delivery O2 Flow Rate FiO2 05/15/16 22:27 95 16 120/89 100 Nasal Cannula 3.0 05/15/16 19:54 36.9 83 20 112/86 100 Room Air Physical Exam CONSTITUTIONAL/VITAL SIGNS: Reviewed / noted above. GENERAL: Non-toxic in appearance. INTEGUMENTARY: Warm, dry, and [place]. HEAD: Normocephalic. EYES: without scleral icterus or trauma. ENT/OROPHARYNX: clear and moist. LYMPHADENOPATHY/NECK: Is supple without lymphadenopathy or meningismus. RESPIRATORY: Lungs clear and equal. CARDIOVASCULAR: Regular rate and rhythm. GI/ABDOMEN: Soft and nontender. No organomegaly or pulsatile mass. No rebound or guarding. Normal bowel sounds. EXTREMITIES: Warm and well perfused. Full ROM of right hip and right knee without any discomfort or crepitus. BACK: No CVA tenderness. NEUROLOGICAL: Intact without focal deficits. PSYCHIATRIC: normal affect. MUSCULOSKELETAL: Normally developed with good muscle tone. Medical Decision & Procedures ER Provider Diagnostic Interpretation: This X-Ray was reviewed and interpreted by myself and the radiologist. Pelvis and right hip 5 views IMPRESSION: Postsurgical change. No acute fractures. Electronically signed by: Bismark Galdamez M.D. 05/15/2016 9:59 PM ED Course 2103: Previous medical records were reviewed. The patient was evaluated in room B12. A complete history and physical examination was performed. 2225: I reevaluated the patient. She is feeling better. I discussed her results and discharge instructions and she verbalized complete understanding and agreement. Medical Decision Etiologies such as fracture, dislocation, neurovascular compromise, compartment syndrome, soft tissue injury, as well as others were entertained. This is a 55-year-old female who presents to the ED with a chief complaint of right hip pain. The patient is a poor historian. She's had pain here before. She denies any trauma. Her exam does not reveal any obvious injury or discomfort. The patient was ordered Toradol IM but the patient declined and wanted hydrocodone. He states that he normally takes that at home. The patient was told the results of her x-rays which did not show any acute process. The patient was felt to be stable for discharge. Impression Primary Impression: Right hip pain Scribe Attestation The scribe's documentation has been prepared under my direction and personally reviewed by me in its entirety. I confirm that the note above accurately reflects all work, treatment, procedures, and medical decision making performed by me. Departure Information Dispostion Home / Self-Care Referrals No Doctor, Assigned (PCP) Patient Instructions My [facility] Additional Instructions Follow-up with your doctor for further care and evaluation in 1-2 days. Return to the emergency department for worsening or new symptoms or any concerns. You have been examined and treated today on an emergency basis only. This is not a substitute for, or an effort to provide, complete comprehensive medical care. It is impossible to recognize and treat all injuries or illnesses in a single emergency department visit. It is therefore important that you follow up closely with your doctor. Call as soon as possible for an appointment.
[2016-05-15 22:32] VITALS: BP 120/89; PULSE 95; TEMP 36.9; O2SAT 100
[2016-05-31] MEDS ORDERED: FLUT1INH7 (06:17)
[2016-10-18] MEDS ORDERED: ATR25 PO (11:50)
[2016-10-18] MEDS ORDERED: GABA1CAP PO (12:01)
[2016-10-18] MEDS ORDERED: CFT250 PO (12:01)
[2016-11-26] MEDS ORDERED: CLOZ100T18 PO (06:09)
[2016-11-26] MEDS ORDERED: PERP4TAB37 PO ×2 (06:17→09:04)
[2016-11-26] MEDS ORDERED: UMEC1INH PO (06:19)
[2016-11-26] MEDS ORDERED: FLUT1INH INH (06:20)
[2016-11-26] MEDS ORDERED: DOCU100C31 PO (06:22)
[2016-11-26] MEDS ORDERED: MONT1TAB3 PO (08:47)
[2016-11-26] MEDS ORDERED: BACL1TAB PO (09:04)
[2016-11-26] MEDS ORDERED: ACET1TAB84 PO (09:04)
[2016-11-26] MEDS ORDERED: FLUT0.15 NAE (09:04)
[2016-11-26] MEDS ORDERED: NAPR1TAB9 PO (09:10)
[2016-11-26] MEDS ORDERED: VNTHFA/IN INH (10:53)
[2016-11-26] MEDS ORDERED: ATV/1 PO (10:56)
[2016-11-26] MEDS ORDERED: TAMS0.4C38 PO (11:38)
[2016-11-26] MEDS ORDERED: SENN-65 PO (12:13)
[2016-11-26] MEDS ORDERED: SPCCR30 TOP (12:13)
[2016-11-26] MEDS ORDERED: MCLIN (15:22)
[2016-11-26] MEDS ORDERED: MOML PO (15:22)
[2016-11-26] MEDS ORDERED: LXP/20 PO (17:03)
[2016-11-26] MEDS ORDERED: TRC48 PO (17:03)
[2016-11-26] MEDS ORDERED: FERR1TAB62 PO (18:03)
[2016-11-26] MEDS ORDERED: CHOL1TAB53 PO (18:12)
[2016-11-26] MEDS ORDERED: RANI150T2 PO (18:26)
[2016-12-01] MEDS ORDERED: PERP4TAB37 PO (20:51)
[2016-12-08] MEDS ORDERED: LEVO750T23 PO (11:00)
[2017-01-09] MEDS ORDERED: PHEN-876 PO (04:08)
[2017-01-11] MEDS ORDERED: CIPR-255 PO (13:05)
== END 2016-05-15 22:40 | disposition home or self-care (01) ==
LOC: C.EDB 19:39
DX: M25.551 Pain in right hip (principal); Z80.1 Family history of malignant neoplasm of trachea, bronchus and lung; M86.9 Osteomyelitis, unspecified; M46.26 Osteomyelitis of vertebra, lumbar region; B95.7 Other staphylococcus as the cause of diseases classified elsewhere

== ENCOUNTER → 2016-05-15 | Outpatient (CLI) | payer OTHER ==
[~2016-05-15] MED LIST changes: +ACET-1256 PO; +ACET1TAB84 PO; +ATR25 PO; +ATV/1 PO; +AZIT250T PO; +BACL1TAB PO; +BUPR100T8 PO; +BUPR150T5 PO; +CALCTAB27 PO; +CEFU1TAB33 PO; +CEFU1TAB35 PO; +CFT250 PO; +CHOL1TAB53 PO; +CIPR-255 PO; +CLOZ100T18 PO; +DOCU100C31 PO; +FERR1TAB62 PO; +FLUT0.15 NAE; +FLUT1INH7; +FOLI1TAB7 PO; +GABA-112 PO; +GABA-113 PO; +GABA1CAP PO; +GABA1CAP5 PO; +GABA400C PO; -HYDR-3419 PO; +HYDR-4330 PO; +HYDR-5688 PO; +LEVO750T23 PO; -LORA-741 PO; +LXP/20 PO; -MAGNSUS73 PO; +MCLIN; +MCRB100HP PO; +MOML PO; +MONT1TAB3 PO; +NAPR1TAB9 PO; -NRN300 PO; +NRN400 PO; +OXYC-57 PO; +PERP4TAB37 PO; +PHEN-876 PO; +PRED20TA PO; +PRED20TA2 PO; +RANI150T2 PO; +RISP1TAB68 PO; +RSP1 PO; +SENN-65 PO; +SENN1TAB65 PO; +SPCCR30 TOP; +SULF800T23 PO; +TAMS0.4C38 PO; +TRC48 PO; +UMEC1INH PO; -VANC1INJ IV; +VNTHFA/IN INH; +WARF5TAB90 PO; +ZOLE5INJ INJ
[2016-05-15 10:41] LABS: BASO % 0.5 %; BASO ABS # 0.05 K/uL (0-0.2); COMPLETE YES; EOS % 4.4 %; HEMATOCRIT 36.7 % (37-47); IG% 0.3 %; LYMPH % 18.1 %; LYMPH ABS # 1.82 K/uL (1.2-3.4); MEAN CELL VOLUME 92.7 fL (80-100); MEAN CORPUSCULAR HGB CONC 31.3 g/dl (32-36); MEAN PLATELET VOLUME 9.8 fL (7.4-10.4); MONO % 12.3 %; NEUT % 64.4 %; PLATELET COUNT 356 K/uL (130-400); RED BLOOD COUNT 3.96 M/uL (4.2-5.4); WHITE BLOOD COUNT 10.07 K/uL (4.8-10.8)
[2016-05-15 11:03] LABS: BLOOD UREA NITROGEN 16 mg/dl (7-18); C-REACTIVE PROTEIN 0.85 mg/dl (0-0.29); CALCIUM 9.7 mg/dl (8.5-10.1); CARBON DIOXIDE 27 mmol/L (21-32); CHLORIDE 106 mmol/L (98-107); CREATININE 0.63 mg/dl (0.60-1.20); GLUCOSE 104 mg/dl (70-99); POTASSIUM 4.3 mmol/L (3.5-5.1); SODIUM 142 mmol/L (136-145)
== END | disposition home or self-care (01) ==
LOC: C.LABSPEC 09:20
PROVIDERS: ATTEND Student in an Organized Health Care Education/Training Program
DX: M86.9 Osteomyelitis, unspecified (principal); M46.26 Osteomyelitis of vertebra, lumbar region; B95.7 Other staphylococcus as the cause of diseases classified elsewhere

== ENCOUNTER → 2016-05-22 | Outpatient (CLI) | payer OTHER ==
[~2016-05-22] MED LIST changes: +ACET1TAB84 PO; +ATR25 PO; +BACL1TAB PO; +BUPR100T8 PO; +BUPR150T5 PO; +CALCTAB27 PO; +CEFU1TAB33 PO; +CEFU1TAB35 PO; +CFT250 PO; +CHOL1TAB53 PO; +CIPR-255 PO; +CLOZ100T18 PO; +DOCU100C31 PO; +FERR1TAB62 PO; +FLUT0.15 NAE; +FLUT1INH7; +FOLI1TAB7 PO; +GABA-112 PO; -GABA-113 PO; +GABA1CAP PO; +GABA1CAP5 PO; +GABA400C PO; +HYDR-4330 PO; +LEVO750T23 PO; +LXP/20 PO; +MCLIN; +MCRB100HP PO; +MOML PO; +MONT1TAB3 PO; +NAPR1TAB9 PO; +NRN400 PO; +OXYC-57 PO; +PERP4TAB37 PO; +PHEN-876 PO; +PRED20TA2 PO; +RANI150T2 PO; +RISP1TAB68 PO; +RSP1 PO; +SENN-65 PO; +SENN1TAB65 PO; +SPCCR30 TOP; +SULF800T23 PO; +TAMS0.4C38 PO; +TRC48 PO; +UMEC1INH PO; +WARF5TAB90 PO; +ZOLE5INJ INJ
[2016-05-22 07:21] LABS: BASO % 0.6 %; BASO ABS # 0.06 K/uL (0-0.2); COMPLETE YES; EOS % 4.9 %; HEMATOCRIT 41.7 % (37-47); IG% 0.4 %; LYMPH % 31.4 %; LYMPH ABS # 2.99 K/uL (1.2-3.4); MEAN CELL VOLUME 90.7 fL (80-100); MEAN CORPUSCULAR HEMOGLOBIN 29.1 pg (25-34); MEAN CORPUSCULAR HGB CONC 32.1 g/dl (32-36); MEAN PLATELET VOLUME 10.1 fL (7.4-10.4); NEUT % 50.7 %; PLATELET COUNT 341 K/uL (130-400); WHITE BLOOD COUNT 9.53 K/uL (4.8-10.8)
[2016-05-22 07:57] LABS: BLOOD UREA NITROGEN 20 mg/dl (7-18); BUN/CREATININE RATIO 31.1 (10-20); C-REACTIVE PROTEIN < 0.29 mg/dl (0-0.29); CALCIUM 8.9 mg/dl (8.5-10.1); CARBON DIOXIDE 26 mmol/L (21-32); CHLORIDE 112 mmol/L (98-107); CREATININE 0.65 mg/dl (0.60-1.20); GLUCOSE 84 mg/dl (70-99); POTASSIUM 4.1 mmol/L (3.5-5.1); SODIUM 146 mmol/L (136-145)
== END | disposition home or self-care (01) ==
LOC: C.LABSPEC 06:25
PROVIDERS: ATTEND Student in an Organized Health Care Education/Training Program
DX: M46.26 Osteomyelitis of vertebra, lumbar region (principal); B95.7 Other staphylococcus as the cause of diseases classified elsewhere

== ENCOUNTER → 2016-05-29 | Outpatient (CLI) | payer OTHER ==
[2016-05-29 10:17] LABS: BASO % 0.4 %; BASO ABS # 0.05 K/uL (0-0.2); COMPLETE YES; EOS % 3.2 %; HEMATOCRIT 43.9 % (37-47); IG% 0.8 %; LYMPH % 20.8 %; LYMPH ABS # 2.44 K/uL (1.2-3.4); MEAN CELL VOLUME 92.8 fL (80-100); MEAN CORPUSCULAR HEMOGLOBIN 29.2 pg (25-34); MEAN CORPUSCULAR HGB CONC 31.4 g/dl (32-36); MEAN PLATELET VOLUME 10.7 fL (7.4-10.4); MONO % 11.2 %; NEUT % 63.6 %; PLATELET COUNT 292 K/uL (130-400); RED BLOOD COUNT 4.73 M/uL (4.2-5.4); WHITE BLOOD COUNT 11.74 K/uL (4.8-10.8)
[2016-05-29 10:36] LABS: BLOOD UREA NITROGEN 16 mg/dl (7-18); BUN/CREATININE RATIO 23.7 (10-20); C-REACTIVE PROTEIN < 0.29 mg/dl (0-0.29); CALCIUM 9.3 mg/dl (8.5-10.1); CARBON DIOXIDE 30 mmol/L (21-32); CHLORIDE 108 mmol/L (98-107); CREATININE 0.68 mg/dl (0.60-1.20); GLUCOSE 97 mg/dl (70-99); POTASSIUM 4.2 mmol/L (3.5-5.1); SODIUM 146 mmol/L (136-145)
== END | disposition home or self-care (01) ==
LOC: C.LABSPEC 09:46
PROVIDERS: ATTEND Student in an Organized Health Care Education/Training Program
DX: M46.26 Osteomyelitis of vertebra, lumbar region (principal); B95.7 Other staphylococcus as the cause of diseases classified elsewhere

== ENCOUNTER → 2016-06-23 | Outpatient (CLI) | payer OTHER ==
--- NOTE | 2016-06-23 14:58 | MAMMOGRAPHY REPORT ---
BILATERAL DIGITAL SCREENING MAMMOGRAM WITH CAD: 06/23/2016 CLINICAL HISTORY: Routine screening. Patient has no complaints. TECHNIQUE: Current study was also evaluated with a Computer Aided Detection (CAD) system. Bilatera l CC and MLO views were obtained. COMPARISON: Comparison is made to exams dated: 12/31/2014 mammogram, 10/22/2013 mammogram, 10/03/2012 m ammogram, 10/16/2011 mammogram, 09/27/2010 mammogram, and 09/22/2009 mammogram - [facility] enter. BREAST COMPOSITION: There are scattered areas of fibroglandular density in both breasts. FINDINGS: No suspicious masses, calcifications, or areas of architectural distortion are noted in e ither breast. There has been no significant interval change compared to prior exams. Benign-appeari ng left breast masses are stable compared to multiple prior exams. IMPRESSION: ACR BI-RADS CATEGORY 2: BENIGN There is no mammographic evidence of malignancy. A 1 year screening mammogram is recommended. The p atient will receive written notification of the results. Approximately 10% of breast cancers are not detected with mammography. A negative mammographic repor t should not delay biopsy if a clinically suggestive mass is present. Cayla Frey M.D. /:06/23/2016 12:12:39 Attending Technologist: Usha COFFEY)(M), [facility] Patient Transporter: Allison Rao, [facility] letter sent: Normal 1/2 BI-RADS Code: ACR BI-RADS Category 2: Benign
== END | disposition home or self-care (01) ==
LOC: C.MAMM 11:30
PROVIDERS: ATTEND Family Medicine
DX: Z12.31 Encounter for screening mammogram for malignant neoplasm of breast (principal)

== ENCOUNTER 2016-06-26 05:42 | Emergency (ER) | payer OTHER ==
[~2016-06-26] VITALS: Ht 163.8 cm; Wt 79.4 kg
[~2016-06-26 05:42] MED LIST changes: -ACET1TAB84 PO; -ATR25 PO; -BACL1TAB PO; -BUPR100T8 PO; -BUPR150T5 PO; -CALCTAB27 PO; -CEFU1TAB33 PO; -CEFU1TAB35 PO; -CFT250 PO; -CHOL1TAB53 PO; -CIPR-255 PO; -CLOZ100T18 PO; -DOCU100C31 PO; -FERR1TAB62 PO; -FLUT0.15 NAE; -FOLI1TAB7 PO; -GABA-112 PO; -GABA1CAP PO; -GABA1CAP5 PO; -HYDR-4330 PO; -LEVO750T23 PO; -LXP/20 PO; -MCLIN; -MCRB100HP PO; -MOML PO; -MONT1TAB3 PO; -NAPR1TAB9 PO; -NRN400 PO; -OXYC-57 PO; -PERP4TAB37 PO; -PHEN-876 PO; -PRED20TA2 PO; -RANI150T2 PO; -RISP1TAB68 PO; -RSP1 PO; -SENN-65 PO; -SENN1TAB65 PO; -SPCCR30 TOP; -SULF800T23 PO; -TAMS0.4C38 PO; -TRC48 PO; -UMEC1INH PO; -WARF5TAB90 PO; -ZOLE5INJ INJ
[2016-06-26 05:51] VITALS: BP 134/94; PULSE 104; TEMP 36.7; O2SAT 99; Ht 163.8 cm; Wt 79.4 kg
[2016-06-26] MEDS ORDERED: KETOROLAC TROMETHAMINE 60 MG/2 ML VIAL IM STA (06:04)
[2016-06-26] MEDS ORDERED: WARF5TAB90 PO (06:13)
[2016-06-26] MEDS ORDERED: ATV/1 PO (06:14)
[2016-06-26] MEDS ORDERED: FLUT0.15 NAE (06:18)
[2016-06-26] MEDS ORDERED: HYDR-5688 PO (06:21)
[2016-06-26] MEDS ORDERED: GABA-112 PO (06:24)
--- NOTE | 2016-06-26 06:36 | EMERGENCY ROOM VISIT NOTE ---
History First contact with patient: 05:48 Chief Complaint: BACK PAIN Stated Complaint: BACK PAIN History of Present Illness The patient is a 55 year old female who presents to the Emergency Room with complaints of back pain for the past several hours. The patient told EMS and her initial nurse that the pain was right-sided. She is telling me that her pain is left-sided. The patient does not have injury or trauma. She did take Vicodin at home that she has prescribed for her. The patient is well-known for recent visits to the emergency department for back pain. She does follow locally with [facility] for primary care and a surgeon in [facility]. She does not know when her next follow-up appointments are. She states that she has hardware in her back that she feels is shifting. She is not having fever or chills. No difficulty using the bathroom. This pain is similar to her normal pain, but when she moved this evening it was slightly worse than normal. She does arrive via ambulance. She rates her pain a 10/10. Review of Systems More than 10 systems were reviewed and otherwise negative with the exception of history of present illness. Past Medical/Surgical History Medical Problems: (1) Accidental drug overdose (2) Alcohol abuse (3) Aspiration pneumonia (4) Back pain (5) Cataract (6) Chronic hepatitis C (7) Chronic obstructive lung disease (8) Chronic paranoid schizophrenia (9) Closed fracture of femur (10) COPD (chronic obstructive pulmonary disease) (11) Deep venous thrombosis (12) Depression (13) Drug abuse (14) Gastroesophageal reflux disease (15) Hepatitis C (16) Hypoxia (17) Hysterectomy (18) Opiate abuse, continuous (19) Osteomyelitis (20) Osteoporosis (21) Past Psych Meds (22) Psychosis (23) S/P ORIF (open reduction internal fixation) fracture (24) Schizoaffective disorder (25) Seizure (26) Suicidal ideation (27) Tinea (28) Tobacco user Surgical Problems: (1) H/O colonoscopy (2) History of hysterectomy (3) S/p thoracic spinal surgery (4) S/P tonsillectomy Family History FH: lung cancer GRANDMOTHER Thyroid disorder MOTHER SISTER Social History Smoking Status: Former Smoker Alcohol Use: none Drug Use: other Marital Status: single Housing Status: lives with family Occupation Status: disabled Current/Historical Medications Scheduled Amantadine HCl (Amantadine HCl), 100 MG PO DAILY Azithromycin (Zithromax), 250 MG PO DAILY/UD Baclofen (Lioresal), 10 MG PO BID Calcium Carbonate (Calcium Carbonate), 1,250 MG PO BID Cholecalciferol (D 1000), 1,000 UNIT PO QAM Clozapine (Clozapine), 100 MG PO TID Docusate Sodium (Docusate Sodium), 100 MG PO BID Econazole Nitrate (Econazole Nitrate Crm 1% 30 Gm), 1 APPLN TOP QID Escitalopram Oxalate (Escitalopram Oxalate), 30 MG PO QAM Fenofibrate (Fenofibrate), 48 MG PO QAM Ferrous Sulfate (Ferrous Sulfate), 325 MG PO BIDM Fluticasone Furoate-Vilanterol (Breo Ellipta 200-25 Mcg/INH), 1 PUFF UD Fluticasone Furoate-Vilanterol (Breo Ellipta), PO UD Fluticasone Propionate (Nasal) (Flonase Allergy Relief), 2 SPRAYS JOSE DAILY Folic Acid (Folvite), 1 MG PO DAILY Gabapentin (Neurontin), 200 MG PO TID Lorazepam (Ativan), 1 MG PO BID Montelukast Sodium (Singulair), 10 MG PO HS Omeprazole (Prilosec), 20 MG PO QAM Perphenazine (Trilafon), 12 MG PO BID Prednisone (Prednisone), 20 MG PO DAILY/UD Senna/Docusate Sod (Senokot S), 2 TAB PO DAILY Tamsulosin Hcl (Flomax), 0.4 MG PO HS Umeclidinium [place] (Incruse Ellipta), 1 PUFF PO DAILY Warfarin Sodium (Coumadin), 5 MG PO DAILY Scheduled PRN Albuterol Hfa (Ventolin Hfa), 2 PUFFS INH Q6H PRN for SOB/Wheezing Hydrocodone/Acetaminophen 5MG/325MG ([place] 5MG/325MG), 1 TAB PO TID PRN for Pain Hydrocodone/Acetaminophen 5MG/325MG ([place] 5MG/325MG), 0.5 TABLET PO HS PRN for Pain Lorazepam (Ativan), 1 MG PO BID PRN for Anxiety and/or Sedation Allergies Coded Allergies: Haloperidol (Verified Allergy, Unknown, 04/28/16) [place] (Verified Allergy, Unknown, ., 04/28/16) Molindone (Verified Adverse Reaction, Intermediate, PT FEELS LIKE SHES "JUMPING OUT OF HER SKIN", 04/28/16) Morphine and Related (Verified Adverse Reaction, Intermediate, DROWSY, 05/01) px was drowsy w/ pinpoint pupils and minimally responsive. stable VS. Following Morphine IR 15mg - 3 doses in prior 24 hours. Naloxone 0.4mg admin 3 times during that period. Fluphenazine (Verified Adverse Reaction, Unknown, confusion, 04/28/16) Physical Exam Vital Signs Date Time Temp Pulse Resp B/P Pulse Ox O2 Delivery O2 Flow Rate FiO2 06/26/16 05:51 36.7 104 19 134/94 99 Nasal Cannula 3.0 Physical Exam VITALS: Vitals are noted on the nurse's note and reviewed by myself. Vital signs stable. GENERAL: Well-developed, well-nourished, white female, who is in no acute distress and resting comfortably. Patient is cooperative with the examination. HEAD: Normocephalic atraumatic. NECK: Supple without nuchal rigidity. No lymphadenopathy. No thyromegaly. Cervical spine is nontender. HEART: Regular rate and rhythm without murmurs gallops or rubs. LUNGS: Clear to auscultation bilaterally without wheezes, rales or rhonchi. No retractions or accessory muscle use. BACK: No palpable mass or lesions. No redness or erythema consistent with infection. There is positive tenderness of the mid lumbar spine. No significant paravertebral spasm. Negative straight leg raise bilateral. No saddle paresthesias. NEURO: Patient was alert and oriented to person place and time. CN II through XII grossly intact. Deep tendon reflexes 2+ throughout. Medical Decision & Procedures ED Course Physical exam and history were performed. Nursing notes and EMR were reviewed. Patient appears to have low back pain for the past few hours. The patient does arrive via ambulance for evaluation. On examination she does have very minimal reproducible lumbar spine tenderness on palpation. She certainly does not have symptoms consistent with infection or cauda equina. The patient has difficulty reconciling her own story, telling nursing that her pain is in different locations. She does not have trauma or other falls. X-rays were discussed, but deferred. I did review the patient's EMR, and there are extensive provider notes expressing concern for drug-seeking behavior and Polypharm substance abuse. The patient was reviewed in the PDMP and has 37 prescriptions for controlled substances over the past year from more than a dozen providers. I do not feel comfortable providing the patient narcotic medication for her symptoms. The patient will be given 60 mg IM Toradol and instructions to follow with her primary care physician. The patient attempted to bargain for narcotics, but I explained that this would not be occurring today. She is to call her PCP and orthopedic referral specialist for further care and management. She was otherwise invited back to ER with any new, worsening, or concerning symptoms. The chart was completed utilizing [employer] Speech Voice Recognition Software. Grammatical errors, random word insertions, pronoun errors, and incomplete sentences are an occasional consequence of this system due to software limitations, ambient noise, and hardware issues. Any formal questions or concerns about the content, text, or information contained within the body of this dictation should be directly addressed to the provider for clarification. . Medical Decision Differential diagnosis: Etiologies such as musculoskeletal, disc herniation, fracture, aortic disease, metastatic disease, cord compression, discitis, infection, renal colic, gastrointestinal, acute exacerbation of chronic back pain, sciatica, cauda equina, as well as others were entertained. Impression Primary Impression: Low back pain Departure Information Dispostion Home / Self-Care Condition GOOD Forms HOME CARE DOCUMENTATION FORM, IMPORTANT VISIT INFORMATION Patient Instructions My [facility] Additional Instructions You were seen and evaluated today on an emergency basis only. This is not a substitute for, or an effort to provide, complete comprehensive medical care. It is not possible to recognize and treat all injuries or illnesses in a single emergency department visit. For this reason it is recommended that you followup with your primary care physician and your orthopedic referral specialist today by telephone today to arrange appropriate follow-up. Continue medications as prescribed. You are welcome to return to the emergency department anytime with new, worsening, or concerning symptoms.
[2016-10-18] MEDS ORDERED: ATR25 PO (11:50)
[2016-10-18] MEDS ORDERED: CFT250 PO (12:01)
[2016-10-18] MEDS ORDERED: GABA1CAP PO (12:01)
[2016-11-26] MEDS ORDERED: CLOZ100T18 PO (06:09)
[2016-11-26] MEDS ORDERED: PERP4TAB37 PO ×2 (06:17→09:04)
[2016-11-26] MEDS ORDERED: UMEC1INH PO (06:19)
[2016-11-26] MEDS ORDERED: FLUT1INH INH (06:20)
[2016-11-26] MEDS ORDERED: DOCU100C31 PO (06:22)
[2016-11-26] MEDS ORDERED: MONT1TAB3 PO (08:47)
[2016-11-26] MEDS ORDERED: FLUT0.15 NAE (09:04)
[2016-11-26] MEDS ORDERED: ACET1TAB84 PO (09:04)
[2016-11-26] MEDS ORDERED: BACL1TAB PO (09:04)
[2016-11-26] MEDS ORDERED: NAPR1TAB9 PO (09:10)
[2016-11-26] MEDS ORDERED: VNTHFA/IN INH (10:53)
[2016-11-26] MEDS ORDERED: ATV/1 PO (10:56)
[2016-11-26] MEDS ORDERED: TAMS0.4C38 PO (11:38)
[2016-11-26] MEDS ORDERED: SPCCR30 TOP (12:13)
[2016-11-26] MEDS ORDERED: SENN-65 PO (12:13)
[2016-11-26] MEDS ORDERED: MCLIN (15:22)
[2016-11-26] MEDS ORDERED: MOML PO (15:22)
[2016-11-26] MEDS ORDERED: TRC48 PO (17:03)
[2016-11-26] MEDS ORDERED: LXP/20 PO (17:03)
[2016-11-26] MEDS ORDERED: FERR1TAB62 PO (18:03)
[2016-11-26] MEDS ORDERED: CHOL1TAB53 PO (18:12)
[2016-11-26] MEDS ORDERED: RANI150T2 PO (18:26)
[2016-12-01] MEDS ORDERED: PERP4TAB37 PO (20:51)
[2016-12-08] MEDS ORDERED: LEVO750T23 PO (11:00)
[2017-01-09] MEDS ORDERED: PHEN-876 PO (04:08)
[2017-01-11] MEDS ORDERED: CIPR-255 PO (13:05)
== END 2016-06-26 06:20 | disposition home or self-care (01) ==
LOC: EDBD 05:42 → C.EDA 05:43
DX: M54.5 Low back pain (principal); B19.20 Unspecified viral hepatitis C without hepatic coma; J44.9 Chronic obstructive pulmonary disease, unspecified; F32.9 Major depressive disorder, single episode, unspecified; M81.0 Age-related osteoporosis without current pathological fracture; F20.9 Schizophrenia, unspecified; G40.909 Epilepsy, unspecified, not intractable, without status epilepticus; K21.9 Gastro-esophageal reflux disease without esophagitis; Z87.81 Personal history of (healed) traumatic fracture; Z90.710 Acquired absence of both cervix and uterus; Z98.890 Other specified postprocedural states; F17.200 Nicotine dependence, unspecified, uncomplicated; Z79.01 Long term (current) use of anticoagulants; Z79.899 Other long term (current) drug therapy; Z88.5 Allergy status to narcotic agent; Z88.8 Allergy status to other drugs, medicaments and biological substances

== ENCOUNTER 2016-06-29 20:50 | Emergency (ER) | payer OTHER ==
[~2016-06-29] VITALS: Ht 165.1 cm; Wt 77.6 kg
[~2016-06-29 20:50] MED LIST changes: -ACET-1256 PO; -CALC200S6; +FLUT0.15 NAE; -FLUT1INH INH; +GABA-112 PO; -GABA400C PO; -UMEC1INH INH; -WARF2.5T8 PO; +WARF5TAB90 PO
[2016-06-29 20:58] VITALS: TEMP 37; Ht 165.1 cm; Wt 77.6 kg
[2016-06-29] MEDS ORDERED: DEXAMETHASONE SOD INJ 4 MG/ML VIAL IM ONE (22:45)
--- NOTE | 2016-06-29 23:33 | EMERGENCY ROOM VISIT NOTE ---
History First contact with patient: 22:23 Chief Complaint: FALL Stated Complaint: hip pain, and psych History of Present Illness The patient is a 55 year old female who presents to the Emergency Room with complaints of bilateral hip pain. The patient states that her nerve endings are "acting up." She also states that she fell last night and hurt her lower back. She states that she has chronic back and hip pain and takes gabapentin and [place] at home. She is questioning if her Gabapentin should be increased. The patient typically sees her primary care provider for her chronic back pain. Per EMS, the patient was telling them that she was in so much pain that she "may hurt herself." However, when asked the patient adamantly denies any thoughts of harming herself or others. She denies any numbness or weakness of her legs. She denies any bowel or bladder incontinence. She denies any urinary symptoms, fevers, abdominal pain, nausea or vomiting. Review of Systems A complete 10 point review of systems was reviewed with the patient with pertinent positives and negatives as per history of present illness. All else were negative. Past Medical/Surgical History Medical Problems: (1) Accidental drug overdose (2) Alcohol abuse (3) Aspiration pneumonia (4) Back pain (5) Cataract (6) Chronic hepatitis C (7) Chronic obstructive lung disease (8) Chronic paranoid schizophrenia (9) Closed fracture of femur (10) COPD (chronic obstructive pulmonary disease) (11) Deep venous thrombosis (12) Depression (13) Drug abuse (14) Gastroesophageal reflux disease (15) Hepatitis C (16) Hypoxia (17) Hysterectomy (18) Opiate abuse, continuous (19) Osteomyelitis (20) Osteoporosis (21) Past Psych Meds (22) Psychosis (23) S/P ORIF (open reduction internal fixation) fracture (24) Schizoaffective disorder (25) Seizure (26) Suicidal ideation (27) Tinea (28) Tobacco user Surgical Problems: (1) H/O colonoscopy (2) History of hysterectomy (3) S/p thoracic spinal surgery (4) S/P tonsillectomy Family History FH: lung cancer GRANDMOTHER Thyroid disorder MOTHER SISTER Social History Smoking Status: Former Smoker Alcohol Use: none Drug Use: other Marital Status: single Housing Status: lives with family Occupation Status: disabled Current/Historical Medications Scheduled Amantadine HCl (Amantadine HCl), 100 MG PO DAILY Azithromycin (Zithromax), 250 MG PO DAILY/UD Baclofen (Lioresal), 10 MG PO BID Calcium Carbonate (Calcium Carbonate), 1,250 MG PO BID Cholecalciferol (D 1000), 1,000 UNIT PO QAM Clozapine (Clozapine), 100 MG PO TID Docusate Sodium (Docusate Sodium), 100 MG PO BID Econazole Nitrate (Econazole Nitrate Crm 1% 30 Gm), 1 APPLN TOP QID Escitalopram Oxalate (Escitalopram Oxalate), 30 MG PO QAM Fenofibrate (Fenofibrate), 48 MG PO QAM Ferrous Sulfate (Ferrous Sulfate), 325 MG PO BIDM Fluticasone Furoate-Vilanterol (Breo Ellipta 200-25 Mcg/INH), 1 PUFF UD Fluticasone Furoate-Vilanterol (Breo Ellipta), PO UD Fluticasone Propionate (Nasal) (Flonase Allergy Relief), 2 SPRAYS JOSE DAILY Folic Acid (Folvite), 1 MG PO DAILY Gabapentin (Neurontin), 200 MG PO TID Lorazepam (Ativan), 1 MG PO BID Montelukast Sodium (Singulair), 10 MG PO HS Omeprazole (Prilosec), 20 MG PO QAM Perphenazine (Trilafon), 12 MG PO BID Prednisone (Prednisone), 20 MG PO DAILY/UD Senna/Docusate Sod (Senokot S), 2 TAB PO DAILY Tamsulosin Hcl (Flomax), 0.4 MG PO HS Umeclidinium [place] (Incruse Ellipta), 1 PUFF PO DAILY Warfarin Sodium (Coumadin), 5 MG PO DAILY Scheduled PRN Albuterol Hfa (Ventolin Hfa), 2 PUFFS INH Q6H PRN for SOB/Wheezing Hydrocodone/Acetaminophen 5MG/325MG ([place] 5MG/325MG), 1 TAB PO TID PRN for Pain Hydrocodone/Acetaminophen 5MG/325MG ([place] 5MG/325MG), 0.5 TABLET PO HS PRN for Pain Lorazepam (Ativan), 1 MG PO BID PRN for Anxiety and/or Sedation Allergies Coded Allergies: Haloperidol (Verified Allergy, Unknown, 04/28/16) [place] (Verified Allergy, Unknown, ., 04/28/16) Molindone (Verified Adverse Reaction, Intermediate, PT FEELS LIKE SHES "JUMPING OUT OF HER SKIN", 04/28/16) Morphine and Related (Verified Adverse Reaction, Intermediate, DROWSY, 05/01) px was drowsy w/ pinpoint pupils and minimally responsive. stable VS. Following Morphine IR 15mg - 3 doses in prior 24 hours. Naloxone 0.4mg admin 3 times during that period. Fluphenazine (Verified Adverse Reaction, Unknown, confusion, 04/28/16) Physical Exam Vital Signs Date Time Temp Pulse Resp B/P Pulse Ox O2 Delivery O2 Flow Rate FiO2 06/29/16 23:49 102 20 120/91 99 Nasal Cannula 3.0 06/29/16 22:14 102 23 116/75 98 Room Air 06/29/16 21:17 98 06/29/16 20:58 37.0 108 20 123/79 93 Nasal Cannula 3.0 Physical Exam VITALS: Vitals are noted on the nurse's note and reviewed by myself. Vital signs stable. GENERAL: This is a 55-year-old female, in no acute distress, nondiaphoretic, well-developed well-nourished.. HEART: Regular rate and rhythm without murmurs gallops or rubs. LUNGS: Clear to auscultation bilaterally without wheezes, rales or rhonchi. ABDOMEN: Soft, nontender to palpation. MUSCULOSKELETAL: There is vague tenderness over the entire lumbar region. Strength 5/5 in bilateral lower extremities. NEURO: Patient was alert and oriented to person place and time. Normal sensation to light and sharp touch. Deep tendon reflexes 2+ throughout. Medical Decision & Procedures Medications Administered Medications (Trade) Dose Ordered Sig/Janel Route Start Time Stop Time Status Last Admin Dose Admin Dexamethasone Sodium Phosphate (Decadron Inj) 10 mg NOW ONCE IM 06/29/16 22:45 06/29/16 22:46 DC 06/29/16 23:09 10 MG Ketorolac Tromethamine (Toradol Tab) 10 mg NOW STAT PO 06/29/16 23:44 06/29/16 23:45 DC 06/29/16 23:49 10 MG Medical Decision Differential diagnosis includes vertebral fracture, contusion, lumbar strain, chronic back pain, drug-seeking behavior, among others. The patient was evaluated as above. She reports worsening back pain after a fall a few days ago. The patient declined any imaging. She was given 10 mg Decadron IM with some relief of her pain. She was given 10 mg Toradol by mouth. The patient requested discharge home immediately afterward. She did question whether her gabapentin for pain medication could be increased. I informed her that she would need to follow-up with her primary care provider for this and she was agreeable to this. Of note, the patient did apparently tell EMS that she was in so much pain she "might hurt herself." However, I directly questioned the patient and asked her several times if she had thoughts of hurting herself. She admitted that she was not truly having thoughts of hurting herself, but was "pissed off" about her pain. I do feel that the patient is safe to be discharged home. She will follow up with her PCP this week. The patient was independently evaluated by Dr. Boyer, ED attending physician, who agreed with my assessment and treatment plan. Impression Primary Impression: Chronic back pain Departure Information Dispostion Home / Self-Care Condition GOOD Referrals Naveed Adam III, M.D. (PCP) Patient Instructions My [facility] Additional Instructions Follow-up with your primary care this week. Return to the emergency department with any numbness, weakness, bowel or bladder problems or any other new/concerning symptoms. Problem Qualifiers Primary Impression: Chronic back pain Back pain location: low back pain Back pain laterality: bilateral Sciatica presence: with sciatica Sciatica laterality: bilateral sciatica Qualified Codes: M54.42 - Lumbago with sciatica, left side; M54.41 - Lumbago with sciatica, right side; G89.29 - Other chronic pain
--- NOTE | 2016-06-29 23:41 | EMERGENCY ROOM VISIT NOTE ---
ED Visit Note First contact with patient: 22:23 55-year-old female with generalized pain was fully evaluated by Coty Schmid. Please see her note. I also independently evaluated the patient.
[2016-06-29] MEDS ORDERED: KETOROLAC TROMETHAMINE 10 MG TAB PO STA (23:44)
[2016-06-29 23:49] VITALS: BP 120/91; PULSE 102; O2SAT 99
[2016-10-18] MEDS ORDERED: ATR25 PO (11:50)
[2016-10-18] MEDS ORDERED: GABA1CAP PO (12:01)
[2016-10-18] MEDS ORDERED: CFT250 PO (12:01)
[2016-11-26] MEDS ORDERED: CLOZ100T18 PO (06:09)
[2016-11-26] MEDS ORDERED: PERP4TAB37 PO ×2 (06:17→09:04)
[2016-11-26] MEDS ORDERED: UMEC1INH PO (06:19)
[2016-11-26] MEDS ORDERED: FLUT1INH INH (06:20)
[2016-11-26] MEDS ORDERED: DOCU100C31 PO (06:22)
[2016-11-26] MEDS ORDERED: MONT1TAB3 PO (08:47)
[2016-11-26] MEDS ORDERED: BACL1TAB PO (09:04)
[2016-11-26] MEDS ORDERED: ACET1TAB84 PO (09:04)
[2016-11-26] MEDS ORDERED: FLUT0.15 NAE (09:04)
[2016-11-26] MEDS ORDERED: NAPR1TAB9 PO (09:10)
[2016-11-26] MEDS ORDERED: VNTHFA/IN INH (10:53)
[2016-11-26] MEDS ORDERED: ATV/1 PO (10:56)
[2016-11-26] MEDS ORDERED: TAMS0.4C38 PO (11:38)
[2016-11-26] MEDS ORDERED: SENN-65 PO (12:13)
[2016-11-26] MEDS ORDERED: SPCCR30 TOP (12:13)
[2016-11-26] MEDS ORDERED: MOML PO (15:22)
[2016-11-26] MEDS ORDERED: MCLIN (15:22)
[2016-11-26] MEDS ORDERED: TRC48 PO (17:03)
[2016-11-26] MEDS ORDERED: LXP/20 PO (17:03)
[2016-11-26] MEDS ORDERED: FERR1TAB62 PO (18:03)
[2016-11-26] MEDS ORDERED: CHOL1TAB53 PO (18:12)
[2016-11-26] MEDS ORDERED: RANI150T2 PO (18:26)
[2016-12-01] MEDS ORDERED: PERP4TAB37 PO (20:51)
[2016-12-08] MEDS ORDERED: LEVO750T23 PO (11:00)
[2017-01-09] MEDS ORDERED: PHEN-876 PO (04:08)
[2017-01-11] MEDS ORDERED: CIPR-255 PO (13:05)
== END 2016-06-29 23:51 | disposition home or self-care (01) ==
LOC: EDBD 20:50 → C.EDA 20:52
DX: M54.9 Dorsalgia, unspecified (principal); G89.29 Other chronic pain; B19.20 Unspecified viral hepatitis C without hepatic coma; J44.9 Chronic obstructive pulmonary disease, unspecified; F32.9 Major depressive disorder, single episode, unspecified; M81.0 Age-related osteoporosis without current pathological fracture; K21.9 Gastro-esophageal reflux disease without esophagitis; G40.909 Epilepsy, unspecified, not intractable, without status epilepticus; F20.9 Schizophrenia, unspecified; Z90.710 Acquired absence of both cervix and uterus; Z87.81 Personal history of (healed) traumatic fracture; Z86.718 Personal history of other venous thrombosis and embolism; Z87.891 Personal history of nicotine dependence; Z98.890 Other specified postprocedural states; Z79.01 Long term (current) use of anticoagulants; Z79.899 Other long term (current) drug therapy; Z88.5 Allergy status to narcotic agent; Z88.8 Allergy status to other drugs, medicaments and biological substances; Z80.9 Family history of malignant neoplasm, unspecified; Z84.89 Family history of other specified conditions

== ENCOUNTER 2016-07-28 13:45 | Inpatient (IN) | payer OTHER ==
[~2016-07-28] VITALS: Ht 162.6 cm; Wt 81.4 kg
[2016-07-28] MEDS ORDERED: SODIUM CHLORIDE 0.9% 1000ML 1,000 ML IV STA ×3 (14:06→18:28)
--- NOTE | 2016-07-28 14:23 | EMERGENCY ROOM VISIT NOTE ---
History First contact with patient: 13:53 Chief Complaint: RESPIRATORY PROBLEMS Stated Complaint: BACK PAIN/SOB Nursing Triage Summary: pt arrives via EMS, reports back surg.in June , Sister reports , over the last week , increasingly drowsy missing meds falls asleep easily , increased difficulty ambulating , not taking meds regularly . decreased po intake. pt reports increased unrination and freq History of Present Illness The patient is a 55 year old female who presents to the Emergency Room via ambulance with complaints of "back pain/shortness of breath". The patient is accompanied by her sister who provides much of the history. Much of the patient 's history is unobtainable from the patient. He was stated the patient had back surgery one year ago. Recently the patient has been noted to be drowsy, and has been missing her medications secondary to falling asleep early. The sister believes that she has been feeling increasingly weak over the past week. They also noted cold shakes, and decreased appetite. This morning the patient was being cared for by the in-home nurse, who noted that the patient was bluish in color, was shaking and very tachycardic. There is also an associated increased frequency with urination. The patient does have difficulty with ambulation. The patient this time complain of chest pain and shortness of breath. Review of Systems A complete 10-point Review of Systems was discussed with the patient, with pertinent positives and negatives listed in the History of Present Illness. All remaining Review of Systems questions can be considered negative unless otherwise specified. Past Medical/Surgical History Medical Problems: (1) Accidental drug overdose (2) Alcohol abuse (3) Aspiration pneumonia (4) Back pain (5) Cataract (6) Chronic hepatitis C (7) Chronic obstructive lung disease (8) Chronic paranoid schizophrenia (9) Closed fracture of femur (10) COPD (chronic obstructive pulmonary disease) (11) Deep venous thrombosis (12) Depression (13) Drug abuse (14) Gastroesophageal reflux disease (15) Hepatitis C (16) Hypoxia (17) Hysterectomy (18) Opiate abuse, continuous (19) Osteomyelitis (20) Osteoporosis (21) Past Psych Meds (22) Psychosis (23) S/P ORIF (open reduction internal fixation) fracture (24) Schizoaffective disorder (25) Seizure (26) Suicidal ideation (27) Tinea (28) Tobacco user Surgical Problems: (1) H/O colonoscopy (2) History of hysterectomy (3) S/p thoracic spinal surgery (4) S/P tonsillectomy Family History FH: lung cancer GRANDMOTHER Thyroid disorder MOTHER SISTER Social History Smoking Status: Never Smoker Alcohol Use: none Drug Use: other Marital Status: single Housing Status: lives with family Occupation Status: disabled Current/Historical Medications Scheduled Amantadine HCl (Amantadine HCl), 100 MG PO AMHS Calcitonin [place] (Calcitonin-[place]), 1 SPRAY NA DAILY Calcium Carbonate (Calcium Carbonate), 1,250 MG PO AMHS Cholecalciferol (D 1000), 1,000 UNIT PO QAM Clozapine (Clozapine), 100 MG PO TID Docusate Sodium (Docusate Sodium), 100 MG PO BID Econazole Nitrate (Econazole Nitrate Crm 1% 30 Gm), 1 APPLN TOP QID Escitalopram Oxalate (Escitalopram Oxalate), 20 MG PO QAM Fenofibrate (Fenofibrate), 48 MG PO QAM Ferrous Sulfate (Ferrous Sulfate), 325 MG PO BIDM Fluticasone Furoate-Vilanterol (Breo Ellipta), 1 PUFF INH 1600 Folic Acid (Folvite), 1 MG PO QAM Montelukast Sodium (Singulair), 10 MG PO HS Omeprazole (Prilosec), 20 MG PO QAM Perphenazine (Trilafon), 12 MG PO AMHS Senna/Docusate Sod (Senokot S), 2 TAB PO DAILY Tamsulosin Hcl (Flomax), 0.4 MG PO HS Umeclidinium [place] (Incruse Ellipta), 1 PUFF PO 1600 Scheduled PRN Acetaminophen (Tylenol), 500 MG PO UNKNOWN PRN for Pain Albuterol Hfa (Ventolin Hfa), 2 PUFFS INH Q6H PRN for SOB/Wheezing Magnesium Hydroxide (Milk Of Magnesia), 30 ML PO DAILY PRN for PRN Allergies Coded Allergies: Haloperidol (Verified Allergy, Unknown, 07/28/16) [place] (Verified Allergy, Unknown, ., 07/28/16) Molindone (Verified Adverse Reaction, Intermediate, PT FEELS LIKE SHES "JUMPING OUT OF HER SKIN", 07/28/16) Morphine and Related (Verified Adverse Reaction, Intermediate, DROWSY, 07/28) px was drowsy w/ pinpoint pupils and minimally responsive. stable VS. Following Morphine IR 15mg - 3 doses in prior 24 hours. Naloxone 0.4mg admin 3 times during that period. Fluphenazine (Verified Adverse Reaction, Unknown, confusion, 07/28/16) Physical Exam Vital Signs Date Time Temp Pulse Resp B/P (MAP) Pulse Ox O2 Delivery O2 Flow Rate FiO2 07/29/16 02:14 37.0 95 19 115/66 98 Nasal Cannula 4.0 07/29/16 00:33 37.0 111 20 131/69 98 Nasal Cannula 4.0 07/28/16 23:00 115 07/28/16 22:32 116 128/99 95 Nasal Cannula 4.0 07/28/16 20:23 103 30 114/83 98 Nasal Cannula 4.0 07/28/16 19:13 101 26 138/83 99 Nasal Cannula 4.0 07/28/16 18:02 104 22 119/75 97 07/28/16 17:53 Nasal Cannula 4.0 07/28/16 16:42 115 18 115/88 98 Nasal Cannula 4.0 07/28/16 14:25 133 20 121/77 99 Nasal Cannula 4.0 07/28/16 14:24 98 Nasal Cannula 4.0 07/28/16 13:57 145 07/28/16 13:51 36.8 144 28 133/85 97 Nasal Cannula 4.0 Physical Exam VITAL SIGNS - Vital signs and nursing notes were reviewed. Patient is tachycardic, at a rate of 140 bpm, saturating on 4 L via nasal cannula at 97%, with stable blood pressure. GENERAL -55-year-old female appearing her stated age who is in no acute distress , but is experiencing increased respiration and tachycardia. She does not communicate well secondary to baseline underlying, but it is. SKIN - Without rashes. No breaks in the integument. HEAD - NC/AT. EYES - Sclera anicteric. Palpebral conjunctiva pink and moist with no injection noted. EARS - No deformities of external structures noted on gross examination bilaterally. No pain elicited with palpation of the tragus bilaterally. External auditory canals without discharge or otorrhea. Tympanic membranes pearly guerra without retraction or bulging. No fluid or purulent material visualized behind the TM. Handle of malleus, umbo, cone of light, pars tensa/ flaccid all easily visualized. NOSE - Midline and without cyanosis. No epistaxis or purulent drainage noted. Septum midline without deviation or septal hematoma noted. MOUTH/OROPHARYNX - Without perioral cyanosis. Buccal mucosa pink and moist and without leukoplakia. Tongue midline with equal elevation of palate bilaterally. No tonsillar hypertrophy, erythema, or exudates noted. Poor dentition noted. NECK - Neck with FROM. Supple to palpation. No lymphadenopathy noted. No nuchal rigidity. No meningismus LUNGS - Chest wall symmetric without accessory muscle use, intercostals retractions, or central cyanosis. Normal vesicular breath sounds CTA B/L. No wheezes, rales, or rhonchi appreciated. CARDIAC - RRR with S1/S2. No murmur, rubs, or gallops appreciated. ABDOMEN - Abdominal contour without pulsations or visible masses. BS normoactive all four quadrants. No tenderness, palpable masses, hepatosplenomegaly, or ascites noted. EXTREMITIES - No clubbing or peripheral cyanosis. No pretibial edema present. + 5/5 strength noted in UE/LE bilaterally. NEUROLOGIC - Cranial nerves II through XII grossly intact. Sensory intact to light touch throughout. Medical Decision & Procedures ER Provider Diagnostic Interpretation: CHEST ONE VIEW PORTABLE CLINICAL HISTORY: Tachycardia COMPARISON STUDY: 04/20/2016 FINDINGS: The heart is normal in size. There are postsurgical changes of prior posterior spinal rodding. There are chronic bilateral interstitial opacities. There are old bilateral rib deformities. No pleural effusions are visualized.[ IMPRESSION: Postsurgical change. Chronic bilateral interstitial opacities. Electronically signed by: Bismark Galdamez M.D. 07/28/2016 3:27 PM Dictated Date/Time: 07/28/2016 3:[address] ANGIOGRAM OF THE CHEST CLINICAL HISTORY: Atypical chest pain, shortness of breath, tachycardia, elevated d-dimer. COMPARISON STUDY: 04/29/2016 TECHNIQUE: Following the IV administration of 80 mL of Optiray-320, CT angiogram of the thorax was performed from the thoracic inlet to the lung bases utilizing the pulmonary embolus protocol. Images are reviewed in the axial, sagittal, and coronal planes. IV contrast was administered without complication. MIP imaging was performed. CT DOSE: 338.36 mGy.cm FINDINGS: There is a borderline enlarged 9 mm AP window lymph node. There is no pathologic axillary or hilar lymphadenopathy. There was no evidence of thoracic aortic dilatation. Evaluation of the lower lobe pulmonary arteries is significantly limited due to respiratory motion artifact. No filling defects are visualized. There are trace pleural effusions unchanged the prior study There are chronic bilateral interstitial opacities with mild traction bronchiectasis. No honeycombing is visualized. There are associated upper lobe groundglass opacities, similar to the prior study. There are postsurgical changes of T6-T11 spinal fusion. There is a severe T8 burst fracture. There is a severe T10 fracture. Destructive changes are again visualized involving the T11 and T12 vertebral bodies. There are associated paravertebral soft tissue opacities. The findings could be secondary to a pseudoarthrosis and paraspinal hematoma. Chronic osteomyelitis could appear similar. IMPRESSION: 1. Examination compromised due to motion artifact. No CT evidence of central pulmonary emboli 2. Chronic interstitial/fibrotic lung disease similar to the preceding study 3. Postsurgical changes present within the thoracic spine with severe T8 and T10 fractures. Destructive changes again involve the T11 and T12 vertebra with associated paraspinal masses. The are likely secondary to a pseudoarthrosis with paraspinal hematomas. Chronic osteomyelitis could appear similar. Electronically signed by: Bismark Galdamez M.D. 07/28/2016 4:00 PM Dictated Date/Time: 07/28/2016 3:50 PM Laboratory Results 07/29/16 01:00 Red Blood Count 4.22, Mean Corpuscular Volume 88.9, Mean Corpuscular Hemoglobin 28.7, Mean Corpuscular Hemoglobin Concent 32.3, Mean Platelet Volume 9.5, Neutrophils (%) (Auto) 76.7, Lymphocytes (%) (Auto) 7.7, Monocytes (%) (Auto) 13.9, Eosinophils (%) (Auto) 0.9, Basophils (%) (Auto) 0.2, Neutrophils # (Auto ) 16.20, Lymphocytes # (Auto) 1.63, Monocytes # (Auto) 2.94, Eosinophils # (Auto ) 0.18, Basophils # (Auto) 0.04 Test 07/28/16 14:05 07/28/16 14:13 07/28/16 14:14 07/28/16 15:08 Toxic Granulation 1+ Prothrombin Time 12.0 SECONDS (9.0-12.0) Prothromb Time International Ratio 1.1 (0.9-1.1) D-Dimer 1580 ug/L FEU (0-500) Total Bilirubin 0.3 mg/dl (0.2-1) Aspartate Amino Transf (AST/SGOT) 20 U/L (15-37) Alanine Aminotransferase (ALT/SGPT) 22 U/L (12-78) Alkaline Phosphatase 109 U/L (45-117) Total Creatine Kinase 46 U/L (26-192) Creatine Kinase MB < 0.5 ng/ml (0.5-3.6) Creatine Kinase MB Ratio (0-3.0) Total Protein 8.3 gm/dl (6.4-8.2) Albumin 3.2 gm/dl (3.4-5.0) Globulin 5.1 gm/dl (2.5-4.0) Albumin/Globulin Ratio 0.6 (0.9-2) Thyroid Stimulating Hormone (TSH) 0.614 uIu/ml (0.300-4.500) Salicylates Level < 1.7 mg/dl (2.8-20) Acetaminophen Level < 2 ug/ml (10-30) Bedside Lactic Acid Venous 2.57 mmol/L (0.90-1.70) Bedside Troponin I 0.010 ng/ml (0-0.045) IW-Zqs-U-Type Natriuretic Peptide 261 pg/ml (0-900) Urine Color YELLOW Urine Appearance CLEAR (CLEAR) Urine pH 5.5 (4.5-7.5) Urine Specific [place] 1.011 (1.000-1.030) Urine Protein NEG (NEG) Urine Glucose (UA) NEG (NEG) Urine Ketones NEG (NEG) Urine Occult Blood NEG (NEG) Urine Nitrite POS (NEG) Urine Bilirubin NEG (NEG) Urine Urobilinogen NEG (NEG) Urine Leukocyte Esterase LARGE (NEG) Urine WBC (Auto) >30 /hpf (0-5) Urine RBC (Auto) 0-4 /hpf (0-4) Urine Hyaline Casts (Auto) 1-5 /lpf (0-5) Urine Epithelial Cells (Auto) 0-5 /lpf (0-5) Urine Bacteria (Auto) 4+ (NEG) Urine Opiates Screen POS (NEG) Urine Methadone, Qualitative NEG (NEG) Urine Barbiturates NEG (NEG) Urine Phencyclidine (PCP) Level NEG (NEG) Ur Amphetamine/Methamphetamine NEG (NEG) MDMA (Ecstasy) Screen NEG (NEG) Urine Benzodiazepines Screen NEG (NEG) Urine Cocaine Metabolite NEG (NEG) Urine Marijuana (THC) NEG (NEG) Test 07/29/16 01:00 07/29/16 01:30 White Blood Count 21.12 K/uL (4.8-10.8) Red Blood Count 4.22 M/uL (4.2-5.4) Hemoglobin 12.1 g/dL (12.0-16.0) Hematocrit 37.5 % (37-47) Mean Corpuscular Volume 88.9 fL (80-100) Mean Corpuscular Hemoglobin 28.7 pg (25-34) Mean Corpuscular Hemoglobin Concent 32.3 g/dl (32-36) Platelet Count 294 K/uL (130-400) Mean Platelet Volume 9.5 fL (7.4-10.4) Neutrophils (%) (Auto) 76.7 % Lymphocytes (%) (Auto) 7.7 % Monocytes (%) (Auto) 13.9 % Eosinophils (%) (Auto) 0.9 % Basophils (%) (Auto) 0.2 % Neutrophils # (Auto) 16.20 K/uL (1.4-6.5) Lymphocytes # (Auto) 1.63 K/uL (1.2-3.4) Monocytes # (Auto) 2.94 K/uL (0.11-0.59) Eosinophils # (Auto) 0.18 K/uL (0-0.5) Basophils # (Auto) 0.04 K/uL (0-0.2) RDW Standard Deviation 47.2 fL (36.4-46.3) RDW Coefficient of Variation 14.5 % (11.5-14.5) Immature Granulocyte % (Auto) 0.6 % Immature Granulocyte # (Auto) 0.13 K/uL (0.00-0.02) Activated Partial Thromboplast Time 30.1 SECONDS (21.0-31.0) Partial Thromboplastin Ratio 1.2 Lactic Acid Level 0.8 mmol/L (0.4-2.0) Magnesium Level 1.8 mg/dl (1.8-2.4) Pro-B-Type Natriuretic Peptide 571 pg/ml (0-900) Arterial Blood pH 7.40 (7.35-7.45) Arterial Blood Partial Pressure CO2 40 mmHg (35-46) Arterial Blood Partial Pressure O2 107 mm/Hg (80-95) Arterial Blood HCO3 24 mmol/L (19-24) Arterial Blood Oxygen Saturation 97.5 % (90-95) Arterial Blood Base Excess -0.7 mEq/L (-9-1.8) Arterial Blood Gas Delivery 4 L Anirudh Test POS (POS) Medications Administered Medications (Trade) Dose Ordered Sig/Janel Route Start Time Stop Time Status Last Admin Dose Admin Sodium Chloride 1,000 ml @ 999 mls/hr Q1H1M STAT IV 07/28/16 14:06 07/29/16 02:05 DC 07/28/16 14:06 999 MLS/HR Vancomycin HCl 1200 mg/Sodium Chloride 274 ml @ 125 mls/hr NOW STAT IV 07/28/16 17:01 07/28/16 19:12 DC 07/28/16 17:01 125 MLS/HR Piperacillin Sod/ Tazobactam Sod (Zosyn Iv) 4.5 gm NOW STAT IV 07/28/16 17:01 07/28/16 17:04 DC 07/28/16 17:53 4.5 GM Sodium Chloride 1,000 ml @ 999 mls/hr Q1H1M STAT IV 07/28/16 17:05 07/29/16 02:05 DC 07/28/16 17:05 999 MLS/HR Vancomycin HCl 1200 mg/Sodium Chloride 274 ml @ 125 mls/hr Q12H IV 07/29/16 02:00 07/29/16 13:31 DC 07/29/16 02:29 125 MLS/HR Sodium Chloride 1,000 ml @ 200 mls/hr Q5H STAT IV 07/28/16 18:28 07/29/16 02:05 DC 07/28/16 19:10 200 MLS/HR Fentanyl Citrate (Fentanyl Inj) 50 mcg NOW STAT IV 07/28/16 19:00 07/28/16 19:01 DC 07/28/16 19:11 50 MCG Amantadine HCl (Symmetrel Cap) 100 mg NOW STAT PO 07/28/16 21:57 07/28/16 22:13 DC 07/28/16 22:45 100 MG Calcium Carbonate (oS-Michael 500 TAB) 1,250 mg BID STAT PO 07/28/16 21:57 07/28/16 22:13 DC 07/28/16 22:45 1,250 MG Clozapine (Clozaril Tab) 100 mg NOW STAT PO 07/28/16 21:57 07/28/16 22:13 DC 07/28/16 22:44 100 MG Docusate Sodium (coLACE CAP) 100 mg NOW STAT PO 07/28/16 21:57 07/28/16 22:14 DC 07/28/16 22:44 100 MG Ferrous Sulfate (Feosol Tab) 325 mg NOW STAT PO 07/28/16 21:57 07/28/16 22:14 DC 07/28/16 22:44 325 MG Montelukast Sodium (Singulair Tab) 10 mg HS STAT PO 07/28/16 21:57 07/28/16 22:14 DC 07/28/16 22:45 10 MG Perphenazine (Trilafon Tab) 12 mg NOW STAT PO 07/28/16 21:57 07/28/16 22:14 DC 07/28/16 22:46 12 MG Tamsulosin HCl (Flomax Cap) 0.4 mg NOW STAT PO 07/28/16 21:57 07/28/16 22:14 DC 07/28/16 22:45 0.4 MG Baclofen (Lioresal Tab) 10 mg NOW STAT PO 07/28/16 22:16 07/28/16 22:19 DC 07/28/16 22:46 10 MG Acetaminophen/ Hydrocodone Bitart (Emily 5/325 Tab) 1 tab NOW STAT PO 07/28/16 22:16 07/28/16 22:19 DC 07/28/16 22:47 1 TAB Lorazepam (Ativan Tab) 1 mg NOW STAT PO 07/28/16 22:16 07/28/16 22:19 DC 07/28/16 22:46 1 MG Piperacillin Sod/ Tazobactam Sod (Zosyn Iv) 3.375 gm NOW STAT IV 07/29/16 00:34 07/29/16 00:36 DC 07/29/16 01:41 3.375 GM Sodium Chloride 1,000 ml @ 999 mls/hr Q1H1M STAT IV 07/29/16 00:35 07/29/16 02:05 DC 07/29/16 00:53 999 MLS/HR Sodium Chloride 1,000 ml @ 200 mls/hr Q5H STAT IV 07/29/16 00:35 07/29/16 02:05 DC 07/29/16 00:53 200 MLS/HR Magnesium Sulfate 1 gm/Prmx 100 ml @ 100 mls/hr NOW STAT IV 07/29/16 02:13 07/29/16 03:12 DC 07/29/16 04:45 100 MLS/HR Medical Decision Patient was seen and evaluated as above. After obtaining a thorough history and physical examination IV access was initiated and the above workup was performed. Bedside EKG reveals supraventricular tachycardia, however personally I do see P waves therefore believe she is experiencing sinus tachycardia at a rate of 140 bpm. No ectopy or ischemic change. No evidence of [place] at this time. The patient does appear stable, Vagal maneuvers were attempted in the room and were not successful. The patient does not appear toxic at this time. She is afebrile. Patient is a history of chronic osteomyelitis, therefore potential sepsis was also entertained. Blood cultures were obtained. It appears that the tachycardia improved greatly with fluids. She was given 1 L wide open. There were additional complaints of urinary frequency, and back pain. CBC reveals leukocytosis at 25.21, this is nearly double from prior visit. No anemia noted. D-dimer elevated at 1580. CT scan of the chest was obtained with results as above. No pulmonary embolism. Further assessment of the prior surgical site was noted. Coagulation studies unremarkable. CMP reveals BUN high at 22. Creatinine function appropriate 0.76. Random glucose 155. Point care lactic acid 2.57. Antibiotic for initiated, 4.5 g of Zosyn and 1200 mg of vancomycin over concern for potential sepsis. Magnesium was low at 1.7. CK-MB low. Point of care troponin within normal limits. BMP unremarkable. TSH unremarkable. Urine reveals positive nitrites, elevated leukocyte esterase, greater than 30 white blood cells, and 4 + urinary bacteria. Toxicology screen is positive for opiates. No salicylates or acetaminophen. These labs were drawn as the patient reportedly has been fatigued over the past few days, has an extensive psychiatric history. She was bolused with another liter of fluid for total of 2 L, and the third liter I had hung at 200 mL's per hour. She was experiencing a large amount of pain therefore was given 50 g of fentanyl. She indicated she had this in the past. Patches. This is to help with sepsis protocol. I did discuss the case thoroughly with my attending, and subsequent to the hospitalist. I do believe that further management is necessary, particularly for the findings on the CAT scan around the operative site, which she is known to have chronic osteo- myelitis of which she has been treated twice in the past for. She has been followed extensively at [facility]. There is concern at this time that she is other septic from this region, or has a UTI that has progressed. Regardless, she'll be treated with broad-spectrum antibiotics here initially with blood cultures pending. I was then informed that the hospitalist is unable to keep the patient here, as the ear specialist is unable to provide care for the patient at this facility. It is recommended the patient be transferred to [facility]. I then spoke with Dr. Anamaria Belle, of [facility] who agreed to accept the patient for transfer. The patient we prepared for transfer at this time. We are currently waiting a bed. At this time I will provide the patient with her nighttime meds. The sister was called, and I discussed with her patient's nighttime medication. This was at the request of the patient. There was a nice chart prepared by the sister regarding the patient medication. This will be provided in the packet sent for transfer. She was given her nighttime medication here. She was provided with tamsulosin, Trilafon, single layer, ferrous sulfate, ducusatesodium, Clozaril, calcium carbonate, Symmetrel, Ativan, Emily, baclofen. This was per her scheduled. The patient at this time awaits transport. She is stable for transport. Unfortunate, we were notified that [facility] is not able to accept the patient morning. I did order her the next appropriate dose of Zosyn. The patient this time does have sepsis, and I believe needs inpatient management. I did discuss the case with Dr. Macario, who agreed to care for the patient. Please refer to further documentation regarding the patient's stay until transport. In the evaluation and treatment of this patient the following differential diagnoses were entertained: Sepsis, pyelonephritis, UTI, osteomyelitis, paraspinal abscesses, among others. Impression Primary Impression: Sepsis Additional Impression: Back pain Departure Information Dispostion Transfer Acute Care Facility Condition POOR Referrals Naveed Adam III, M.D. (PCP) Patient Instructions [facility] Problem Qualifiers
[2016-07-28 14:24] LABS: HEMATOCRIT 41.7 % (37-47); MEAN CELL VOLUME 88.7 fL (80-100); MEAN CORPUSCULAR HEMOGLOBIN 28.3 pg (25-34); MEAN CORPUSCULAR HGB CONC 31.9 g/dl (32-36); MEAN PLATELET VOLUME 9.6 fL (7.4-10.4); PLATELET COUNT 295 K/uL (130-400); WHITE BLOOD COUNT 25.21 K/uL (4.8-10.8)
[2016-07-28 14:34] LABS: POINT OF CARE TROPONIN I 0.01 ng/ml (0-0.045)
[2016-07-28 14:41] LABS: INR 1.1 (0.9-1.1); PARTIAL THROMBOPLASTIN RATIO 1.1
[2016-07-28 14:44] LABS: ALT/SGPT 22 U/L (12-78); AST/SGOT 20 U/L (15-37); BLOOD UREA NITROGEN 22 mg/dl (7-18); BUN/CREATININE RATIO 29.4 (10-20); CALCIUM 8.9 mg/dl (8.5-10.1); CARBON DIOXIDE 23 mmol/L (21-32); CHLORIDE 106 mmol/L (98-107); CREATININE 0.76 mg/dl (0.60-1.20); GLUCOSE 155 mg/dl (70-99); MAGNESIUM 1.7 mg/dl (1.8-2.4); POTASSIUM 3.9 mmol/L (3.5-5.1); SODIUM 140 mmol/L (136-145)
[2016-07-28 14:46] LABS: BASO % 0.2 %; BASO ABS # 0.04 K/uL (0-0.2); COMPLETE YES; EOS % 0.2 %; IG% 0.4 %; LYMPH ABS # 1.02 K/uL (1.2-3.4); MONO % 10.6 %; NEUT % 84.6 %; TOXIC GRANULATION 1+
[2016-07-28 14:55] LABS: ACETAMINOPHEN < 2 ug/ml (10-30); ALB/GLOB RATIO 0.6 (0.9-2); ALKALINE PHOSPHATASE 109 U/L (45-117); THYROID STIMULATING HORMONE 0.614 uIu/ml (0.300-4.500)
[2016-07-28] MEDS ORDERED: OPTIRAY 320 IV PRN (15:15)
[2016-07-28] MEDS ORDERED: NRN400 PO (15:22)
[2016-07-28] MEDS ORDERED: ACET-1256 PO (15:22)
--- NOTE | 2016-07-28 15:28 | DIAGNOSTIC IMAGING REPORT ---
CHEST ONE VIEW PORTABLE CLINICAL HISTORY: Tachycardia COMPARISON STUDY: 04/20/2016 FINDINGS: The heart is normal in size. There are postsurgical changes of prior posterior spinal rodding. There are chronic bilateral interstitial opacities. There are old bilateral rib deformities. No pleural effusions are visualized.[ IMPRESSION: Postsurgical change. Chronic bilateral interstitial opacities. Electronically signed by: Bismark Galdamez M.D. 07/28/2016 3:27 PM Dictated Date/Time: 07/28/2016 3:25 PM
[2016-07-28 15:46] LABS: URINE APPEARANCE CLEAR (CLEAR); URINE BILIRUBIN NEG (NEG); URINE COLOR YELLOW; URINE EPITHELIAL CELL AUTO 0-5 /lpf (0-5); URINE NITRITE POS (NEG); URINE PH 5.5 (4.5-7.5); URINE SPECIFIC GRAVITY 1.011 (1.000-1.030); UROBILINOGEN NEG (NEG); ZZURINE CULT IF INDIC CATH YES
[2016-07-28 15:48] LABS: MANUAL MICROSCOPIC REQUIRED? NO; REVIEW REQ? NO
--- NOTE | 2016-07-28 16:01 | DIAGNOSTIC IMAGING REPORT ---
CT ANGIOGRAM OF THE CHEST CLINICAL HISTORY: Atypical chest pain, shortness of breath, tachycardia, elevated d-dimer. COMPARISON STUDY: 04/29/2016 TECHNIQUE: Following the IV administration of 80 mL of Optiray-320, CT angiogram of the thorax was performed from the thoracic inlet to the lung bases utilizing the pulmonary embolus protocol. Images are reviewed in the axial, sagittal, and coronal planes. IV contrast was administered without complication. MIP imaging was performed. CT DOSE: 338.36 mGy.cm FINDINGS: There is a borderline enlarged 9 mm AP window lymph node. There is no pathologic axillary or hilar lymphadenopathy. There was no evidence of thoracic aortic dilatation. Evaluation of the lower lobe pulmonary arteries is significantly limited due to respiratory motion artifact. No filling defects are visualized. There are trace pleural effusions unchanged the prior study There are chronic bilateral interstitial opacities with mild traction bronchiectasis. No honeycombing is visualized. There are associated upper lobe groundglass opacities, similar to the prior study. There are postsurgical changes of T6-T11 spinal fusion. There is a severe T8 burst fracture. There is a severe T10 fracture. Destructive changes are again visualized involving the T11 and T12 vertebral bodies. There are associated paravertebral soft tissue opacities. The findings could be secondary to a pseudoarthrosis and paraspinal hematoma. Chronic osteomyelitis could appear similar. IMPRESSION: 1. Examination compromised due to motion artifact. No CT evidence of central pulmonary emboli 2. Chronic interstitial/fibrotic lung disease similar to the preceding study 3. Postsurgical changes present within the thoracic spine with severe T8 and T10 fractures. Destructive changes again involve the T11 and T12 vertebra with associated paraspinal masses. The are likely secondary to a pseudoarthrosis with paraspinal hematomas. Chronic osteomyelitis could appear similar. Electronically signed by: Bismark Galdamez M.D. 07/28/2016 4:00 PM Dictated Date/Time: 07/28/2016 3:50 PM
[2016-07-28 16:15] LABS: BENZODIAZEPINE, URINE NEG (NEG); COCAINE,URINE NEG (NEG); PHENCYCLIDINE, URINE NEG (NEG)
[2016-07-28] MEDS ORDERED: VANCOMYCIN INJ 1,200 MG in SODIUM CHLORIDE 0.9% 250ML 250 ML IV STA (17:01)
[2016-07-28] MEDS ORDERED: PIPERACILLIN/TAZOBACTAM 4.5 GM/100ML D5W IV STA (17:01)
[2016-07-28 17:53] VITALS: Ht 162.6 cm; Wt 81.4 kg
--- NOTE | 2016-07-28 18:36 | Medical Consult ---
History General Date of Service: Jul 28, 2016. Stated Complaint: Back Pain/Sob HPI The patient is a 55 year old female who presents to [facility] with fever , chills, SOB , palpitation , ongoing back pain . Pt's past medical hx includes Thoracic spinal compression Fx T8-T10 level s/p decompression /fusion , with chronic osteomyelitis s/p I V ABx for X6 weeks Twice ., follows with ID in [place] , other medical issues includes Schizophrenia, hx of DVT, Hep C , COPD Brought to ED by family members ( Sister ) as home health visiting nurse noticed increased somnolence , confusion , rapid irregular heartbeat . Pt is interviewed in ER room B4B , awake and alert, does not appear to be confused very poor Historian , repeating same information repeatedly mentions not feeling well for past few days, felt cold and chilly , had ongoing back pain today having SOB , difficulty in breathing and chest pain In ED pt was found to be in Rapid Afib /RVT HR in 120's , marked leukocytosis WBC 25 K , with elevated lactic acid level> 2 CTA of chest ordered with IV contrast for PE protocol revealed -no evidence of PE Historian: patient, family (sister ), other (ER documention /prior admission recored review ) Severity: severe Complaint Status: resolved Quality of Pain: aching, throbbing Modifying Factors: immobilization Review of Systems Constitutional: reports: as stated in HPI, chills, diaphoresis, fever, malaise , weakness Cardiovascular: reports: as stated in HPI, chest pain, chest pressure, chest tightness, diaphoresis, palpitations Respiratory: reports: shortness of breath, LOCKETT Gastrointestinal: denies: no symptoms, as stated in HPI, abdominal pain, constipation, diarrhea, nausea, vomiting, hematemesis, hematochezia, hemorrhoids , anorexia, appetite changes, stool changes, flatulence, belching, food intolerance, jaundice, other Genitourinary - Female: reports: no symptoms Musculoskeletal: reports: other (severe back pain ,worse with minimum movement ) Neurologic: reports: general weakness, lethargy All Other Symptoms All Other Systems: Reviewed and Negative Past Medical History Past Medical History: Medical Problems: (1) Accidental drug overdose Status: Resolved (2) Alcohol abuse Permanent Comment: no recent use attends AA Status: Resolved (3) Aspiration pneumonia Status: Resolved (4) Back pain Status: Chronic (5) Cataract Status: Chronic (6) Chronic hepatitis C Status: Chronic (7) Chronic obstructive lung disease Status: Chronic (8) Chronic paranoid schizophrenia Status: Chronic (9) Closed fracture of femur Permanent Comment: s/p ORIF Status: Resolved (10) COPD (chronic obstructive pulmonary disease) Status: Chronic (11) Deep venous thrombosis Status: Chronic (12) Depression Status: Chronic (13) Drug abuse Permanent Comment: narcotic addiction due to chronic pain attends NA Status: Resolved (14) Gastroesophageal reflux disease Status: Chronic (15) Hepatitis C Status: Chronic (16) Hypoxia Status: Chronic (17) Hysterectomy Status: Resolved (18) Osteoporosis Status: Chronic (19) S/P ORIF (open reduction internal fixation) fracture Permanent Comment: femur Status: Chronic (20) Schizoaffective disorder Status: Chronic (21) Seizure Status: Resolved (22) Tinea Status: Resolved (23) Tobacco user Status: Chronic Surgical Problems: (1) H/O colonoscopy Status: Chronic (2) History of hysterectomy Status: Chronic (3) S/p thoracic spinal surgery Permanent Comment: 07/07/2015; Dr. Caballero at [facility] Status: Chronic (4) S/P tonsillectomy Status: Chronic Past Medical History: COPD Family History FH: lung cancer GRANDMOTHER Thyroid disorder MOTHER SISTER Social History Hx Tobacco Use In Past Year?: No Smoking Status: Former Smoker Alcohol: history of alcohol abuse Drug Use: other Marital status: single Housing status: lives with family Occupational Status: disabled Immunizations History of Influenza Vaccine: N/A Influenza Vaccine Date: Dec 03, 2012 History of Tetanus Vaccine?: utd Tetanus Immunization Date: Nov 22, 2006 History of Pneumococcal: Yes Pneumococcal Date: Dec 03, 2010 History of Hepatitis B Vaccine: Yes Hepatitis Immunization Date: Dec 03, 1997 History of MDRO History of MDRO: Yes Type of MDRO: MRSA Allergies Coded Allergies: Haloperidol (Verified Allergy, Unknown, 07/28/16) [place] (Verified Allergy, Unknown, ., 07/28/16) Molindone (Verified Adverse Reaction, Intermediate, PT FEELS LIKE SHES "JUMPING OUT OF HER SKIN", 07/28/16) Morphine and Related (Verified Adverse Reaction, Intermediate, DROWSY, 07/28) px was drowsy w/ pinpoint pupils and minimally responsive. stable VS. Following Morphine IR 15mg - 3 doses in prior 24 hours. Naloxone 0.4mg admin 3 times during that period. Fluphenazine (Verified Adverse Reaction, Unknown, confusion, 07/28/16) Current Medications Reported Home Medications Medications Dose Route/Sig Max Daily Dose Days Date Category Dose Instructions Calcitonin-[place]enton (Calcitonin [place]) 30 [place]/3.7 Ml Soln 1 [place] NA DAILY 07/28/16 Reported Milk Of Magnesia (Magnesium Hydroxide) 30 Ml Susp 30 Ml PO DAILY PRN 07/28/16 Reported Tylenol (Acetaminophen) 500 Mg Tab 500 Mg PO UNKNOWN PRN 07/28/16 Reported MAX DOSE 2g total bec of Hep C Gabapentin 400 Mg Cap 400 Mg PO BID 07/28/16 Reported [place] 5MG/325MG (Acetaminophen/Hydrocodone Bitart) Tab 0.5 Tablet PO HS PRN 06/26/16 Reported PRN PAIN Breo Ellipta (Fluticasone Furoate-Vilanterol) 1 Inh Inh 1 Puff INH 1600 06/26/16 Reported USE DIRECTED IN AM. Incruse Ellipta (Umeclidinium [place]) 62.5 Mcg/Inh Inh 1 Puff PO 1600 06/26/16 Reported Ativan (Lorazepam) 1 Mg Tab 1 Mg PO BID PRN 06/26/16 Reported Coumadin (Warfarin Sodium) 5 Mg Tab 5 Mg PO DAILY 06/26/16 Reported Zithromax (Azithromycin) 250 Mg Tab 250 Mg PO DAILY/UD 05/09/16 Reported RESCUE MED : TAKE 2 TABS DAY 1 , THEN 1 DAILY X 4 DAYS. [place] 5MG/325MG (Acetaminophen/Hydrocodone Bitart) Tab 1 Tab PO TID PRN 05/09/16 Reported MAX = 3 TABS DAILY Ventolin Hfa (Albuterol) 200 Puffs/67985 Mcg Aers 2 Puffs INH Q6H PRN 05/09/16 Reported Calcium Carbonate 1,250 Mg Tab 1,250 Mg PO AMHS 04/28/16 Reported Docusate Sodium 100 Mg Cap 100 Mg PO BID 04/14/16 Reported Trilafon (Perphenazine) 4 Mg Tab 12 Mg PO AMHS 04/14/16 Reported Clozapine 100 Mg Tab 100 Mg PO TID 04/14/16 Reported Lioresal (Baclofen) 10 Mg Tab 10 Mg PO TID PRN 04/04/16 Reported D 1000 (Cholecalciferol) 1,000 Unit Tab 1,000 Unit PO QAM 03/15/16 Reported Econazole Nitrate Crm 1% 30 Gm (Econazole Nitrate) 90 Appln/30 Gm Cr 1 Appln TOP QID 01/17/16 Reported APPLY TO FEET Senokot S (Senna/Docusate Sodium) 1 Tab Tab 2 Tab PO DAILY 01/17/16 Reported TAKE AT NOON Flomax (Tamsulosin Hcl) 0.4 Mg Cap 0.4 Mg PO HS 08/27/15 Reported Singulair (Montelukast Sodium) 10 Mg Tab 10 Mg PO HS 90 08/20/15 Reported Folvite (Folic Acid) 1 Mg Tab 1 Mg PO QAM 08/09/15 Reported Prilosec (Omeprazole) 20 Mg Capcr 20 Mg PO QAM 07/01/15 Reported TAKE ONE HOUR BEFORE BREAKFAST Fenofibrate 48 Mg Tab 48 Mg PO QAM 12/19/14 Reported Escitalopram Oxalate 20 Mg Tab 20 Mg PO QAM 12/19/14 Reported Amantadine HCl 100 Mg Cap 100 Mg PO AMHS 12/19/14 Reported Ferrous Sulfate 325 Mg Tab 325 Mg PO BIDM 10/11/13 Reported Physical Physical Exam Vital Signs: Date Time Temp Pulse Resp B/P (MAP) Pulse Ox O2 Delivery O2 Flow Rate FiO2 07/28/16 17:53 Nasal Cannula 4.0 07/28/16 16:42 115 18 115/88 98 Nasal Cannula 4.0 07/28/16 14:25 133 20 121/77 99 Nasal Cannula 4.0 07/28/16 14:24 98 Nasal Cannula 4.0 07/28/16 13:57 145 07/28/16 13:51 36.8 144 28 133/85 97 Nasal Cannula 4.0 General Appearance: mild distress (due to back pain , complains of being cold ) Head: NORMOCEPHALIC, ATRAUMATIC Eyes: SCLERAE NORMAL Respiratory: CLEAR TO AUSCULTATION Cardiovasular: irregular rate, abnormal rhythm Abdomen: NON TENDER Back: midline thoracic TTP, other (minimum exam due to severe back pain and pt' s discomfort ) Lower Extremities: NO EDEMA Neuro: ALERT, ORIENTED x 3, NORMAL SPEECH Psychiatric: depressed, anxious Diagnostics Labs Results Past 24 Hours Test 07/28/16 14:05 07/28/16 14:13 07/28/16 14:14 07/28/16 15:08 Range/Units White Blood Count 25.21 4.8-10.8 K/uL Red Blood Count 4.70 4.2-5.4 M/uL Hemoglobin 13.3 12.0-16.0 g/dL Hematocrit 41.7 37-47 % Mean Corpuscular Volume 88.7 80-100 fL Mean Corpuscular Hemoglobin 28.3 25-34 pg Mean Corpuscular Hemoglobin Concent 31.9 32-36 g/dl Platelet Count 295 130-400 K/uL Mean Platelet Volume 9.6 7.4-10.4 fL Neutrophils (%) (Auto) 84.6 % Lymphocytes (%) (Auto) 4.0 % Monocytes (%) (Auto) 10.6 % Eosinophils (%) (Auto) 0.2 % Basophils (%) (Auto) 0.2 % Neutrophils # (Auto) 21.32 1.4-6.5 K/uL Lymphocytes # (Auto) 1.02 1.2-3.4 K/uL Monocytes # (Auto) 2.68 0.11-0.59 K/uL Eosinophils # (Auto) 0.05 0-0.5 K/uL Basophils # (Auto) 0.04 0-0.2 K/uL RDW Standard Deviation 46.6 36.4-46.3 fL RDW Coefficient of Variation 14.2 11.5-14.5 % Immature Granulocyte % (Auto) 0.4 % Immature Granulocyte # (Auto) 0.10 0.00-0.02 K/uL Toxic Granulation 1+ Prothrombin Time 12.0 9.0-12.0 SECONDS Prothromb Time International Ratio 1.1 0.9-1.1 Activated Partial Thromboplast Time 29.7 21.0-31.0 SECONDS Partial Thromboplastin Ratio 1.1 D-Dimer 1580 0-500 ug/L FEU Sodium Level 140 136-145 mmol/L Potassium Level 3.9 3.5-5.1 mmol/L Chloride Level 106 98-107 mmol/L Carbon Dioxide Level 23 21-32 mmol/L Anion Gap 11.0 3-11 mmol/L Blood Urea Nitrogen 22 7-18 mg/dl Creatinine 0.76 0.60-1.20 mg/dl Est Creatinine Clear Calc Drug Dose 85.3 ml/min Estimated GFR () 101.6 Estimated GFR (Non- 87.7 BUN/Creatinine Ratio 29.4 10-20 Random Glucose 155 70-99 mg/dl Calcium Level 8.9 8.5-10.1 mg/dl Magnesium Level 1.7 1.8-2.4 mg/dl Total Bilirubin 0.3 0.2-1 mg/dl Aspartate Amino Transf (AST/SGOT) 20 15-37 U/L Alanine Aminotransferase (ALT/SGPT) 22 12-78 U/L Alkaline Phosphatase 109 45-117 U/L Total Creatine Kinase 46 26-192 U/L Creatine Kinase MB < 0.5 0.5-3.6 ng/ml Creatine Kinase MB Ratio 0-3.0 Total Protein 8.3 6.4-8.2 gm/dl Albumin 3.2 3.4-5.0 gm/dl Globulin 5.1 2.5-4.0 gm/dl Albumin/Globulin Ratio 0.6 0.9-2 Thyroid Stimulating Hormone (TSH) 0.614 0.300-4.500 uIu/ml Salicylates Level < 1.7 2.8-20 mg/dl Acetaminophen Level < 2 10-30 ug/ml Bedside Lactic Acid Venous 2.57 0.90-1.70 mmol/L Bedside Troponin I 0.010 0-0.045 ng/ml [id number]-[id number] Natriuretic Peptide 261 0-900 pg/ml Urine Color YELLOW Urine Appearance CLEAR CLEAR Urine pH 5.5 4.5-7.5 Urine Specific [place] 1.011 1.000-1.030 Urine Protein NEG NEG Urine Glucose (UA) NEG NEG Urine Ketones NEG NEG Urine Occult Blood NEG NEG Urine Nitrite POS NEG Urine Bilirubin NEG NEG Urine Urobilinogen NEG NEG Urine Leukocyte Esterase LARGE NEG Urine WBC (Auto) >30 0-5 /hpf Urine RBC (Auto) 0-4 0-4 /hpf Urine Hyaline Casts (Auto) 1-5 0-5 /lpf Urine Epithelial Cells (Auto) 0-5 0-5 /lpf Urine Bacteria (Auto) 4+ NEG Urine Opiates Screen POS NEG Urine Methadone, Qualitative NEG NEG Urine Barbiturates NEG NEG Urine Phencyclidine (PCP) Level NEG NEG Ur Amphetamine/Methamphetamine NEG NEG MDMA (Ecstasy) Screen NEG NEG Urine Benzodiazepines Screen NEG NEG Urine Cocaine Metabolite NEG NEG Urine Marijuana (THC) NEG NEG Test 07/28/16 17:59 Range/Units Microbiology Results 07/28/16 Blood Culture, Received Pending 07/28/16 Blood Culture, Received Pending 07/28/16 Urine Culture, Received Pending Diagnostic Radiology CT ANGIOGRAM OF CHEST : IMPRESSION: 1. Examination compromised due to motion artifact. No CT evidence of central pulmonary emboli 2. Chronic interstitial/fibrotic lung disease similar to the preceding study 3. Postsurgical changes present within the thoracic spine with severe T8 and T10 fractures. Destructive changes again involve the T11 and T12 vertebra with associated paraspinal masses. The are likely secondary to a pseudoarthrosis with paraspinal hematomas. Chronic osteomyelitis could appear similar. Impression Assessment and Plan 55 Yo female with hx of osteoporosis, s/p decompression and fusion , chronic osteomyelitis of thoracic spine presented with fever , rapid afib ,leukocytosis , elevated lactic acid level CT chest finding of possible fluid collection around paraspinal muscle of T11/ T12 SEVERE SEPSIS /DUE TO POSSIBLE THORACIS PARASPINAL ABSCESS VS OSTEOMYELITIS meets criteria -Marked leukocytosis , elevated lactic acid , tachyarrhythmia -source of infection possible thoracic spine acute on chronic infection -Discussed case with Spinal Surgery Dr Eaton , pt in known his service from previous consult last year ( was transferred to [place] on for compression Fx of T8-T10 as pt was found to be too high risk /poor anesthesia candidate for extensive spinal surgery ) -updated CT chest finding of possible paraspinal fluid collection at T11/T12 level -Dr Eaton will be out of town for next 3 days -recommends pt should be emergently transferred to Tertiary Care for possible drainage /surgical intervention D/w Pt and her sister Peyton explained the rationale of transferring pt to [place] as soon as possible Both patient and her sister verbalized understanding and in agreement with transfer to [facility] Updated ER attending -in agreement with the plan -as there will be no spinal surgery support for next 3 days for this acutely ill /septic pt who may need life saving spinal surgical procedure Pt will be transferred to [facility] today for further Care AFIB /RVR : new diagnosis possible due to sepsis needs to have infection control /heart rate control with antiarrhythmic all form of anticoagulation should be avoided for possible spinal abscess /need for spinal surgery /IR drainage of spinal abscess will need cardiology eval and cardiac work up prior to any spinal procedure under general anesthesia Thank you for allowing us to participate in care of the Patient Please contact with any questions or need for assistance regarding transferring this critically ill patient to Tertiary Care center for appropriate Care Vanessa Dick MD [facility] Hospitalist Admit To other (TRANSFER TO [facility] [place] ) Additional Copies To Naveed Adam III, M.D. Bailey, Gregory M., D.O.
[2016-07-28] MEDS ORDERED: FENTANYL CITRATE INJ 50 MCG/1 ML 2 ML VIAL IV STA (19:00)
--- NOTE | 2016-07-28 19:18 | Pharmacy Progress Note ---
Pharmacy Antibiotic Consult Date of Service: Jul 28, 2016. Pharmacy Dosing Scope Pharmacy is consulted to initiate vancomycin and Zosyn IV dosing therapy, order appropriate labs and adjust drug dose/frequency. Subjective The patient is a 55 year old female admitted on 07/28/16 for SOB and back pain. She was previously known to the antibiotic service for vancomycin dosing due to her osteomyelitis. She has since finished 6 weeks of antibiotics for this. She is now admitted for malaise, shortness of breath, and back pain. Objective Height (Feet): 5 Height (Inches): 4.00 Weight (Kilograms): 81.400 Lab Results (24hrs): Test 07/28/16 14:05 07/28/16 14:13 07/28/16 14:14 07/28/16 15:08 White Blood Count 25.21 K/uL (4.8-10.8) Red Blood Count 4.70 M/uL (4.2-5.4) Hemoglobin 13.3 g/dL (12.0-16.0) Hematocrit 41.7 % (37-47) Mean Corpuscular Volume 88.7 fL (80-100) Mean Corpuscular Hemoglobin 28.3 pg (25-34) Mean Corpuscular Hemoglobin Concent 31.9 g/dl (32-36) Platelet Count 295 K/uL (130-400) Mean Platelet Volume 9.6 fL (7.4-10.4) Neutrophils (%) (Auto) 84.6 % Lymphocytes (%) (Auto) 4.0 % Monocytes (%) (Auto) 10.6 % Eosinophils (%) (Auto) 0.2 % Basophils (%) (Auto) 0.2 % Neutrophils # (Auto) 21.32 K/uL (1.4-6.5) Lymphocytes # (Auto) 1.02 K/uL (1.2-3.4) Monocytes # (Auto) 2.68 K/uL (0.11-0.59) Eosinophils # (Auto) 0.05 K/uL (0-0.5) Basophils # (Auto) 0.04 K/uL (0-0.2) RDW Standard Deviation 46.6 fL (36.4-46.3) RDW Coefficient of Variation 14.2 % (11.5-14.5) Immature Granulocyte % (Auto) 0.4 % Immature Granulocyte # (Auto) 0.10 K/uL (0.00-0.02) Toxic Granulation 1+ Prothrombin Time 12.0 SECONDS (9.0-12.0) Prothromb Time International Ratio 1.1 (0.9-1.1) Activated Partial Thromboplast Time 29.7 SECONDS (21.0-31.0) Partial Thromboplastin Ratio 1.1 D-Dimer 1580 ug/L FEU (0-500) Sodium Level 140 mmol/L (136-145) Potassium Level 3.9 mmol/L (3.5-5.1) Chloride Level 106 mmol/L (98-107) Carbon Dioxide Level 23 mmol/L (21-32) Anion Gap 11.0 mmol/L (3-11) Blood Urea Nitrogen 22 mg/dl (7-18) Creatinine 0.76 mg/dl (0.60-1.20) Est Creatinine Clear Calc Drug Dose 85.3 ml/min Estimated GFR () 101.6 Estimated GFR (Non- 87.7 BUN/Creatinine Ratio 29.4 (10-20) Random Glucose 155 mg/dl (70-99) Calcium Level 8.9 mg/dl (8.5-10.1) Magnesium Level 1.7 mg/dl (1.8-2.4) Total Bilirubin 0.3 mg/dl (0.2-1) Aspartate Amino Transf (AST/SGOT) 20 U/L (15-37) Alanine Aminotransferase (ALT/SGPT) 22 U/L (12-78) Alkaline Phosphatase 109 U/L (45-117) Total Creatine Kinase 46 U/L (26-192) Creatine Kinase MB < 0.5 ng/ml (0.5-3.6) Creatine Kinase MB Ratio (0-3.0) Total Protein 8.3 gm/dl (6.4-8.2) Albumin 3.2 gm/dl (3.4-5.0) Globulin 5.1 gm/dl (2.5-4.0) Albumin/Globulin Ratio 0.6 (0.9-2) Thyroid Stimulating Hormone (TSH) 0.614 uIu/ml (0.300-4.500) Salicylates Level < 1.7 mg/dl (2.8-20) Acetaminophen Level < 2 ug/ml (10-30) Bedside Lactic Acid Venous 2.57 mmol/L (0.90-1.70) Bedside Troponin I 0.010 ng/ml (0-0.045) CR-Cnc-B-Type Natriuretic Peptide 261 pg/ml (0-900) Urine Color YELLOW Urine Appearance CLEAR (CLEAR) Urine pH 5.5 (4.5-7.5) Urine Specific [place] 1.011 (1.000-1.030) Urine Protein NEG (NEG) Urine Glucose (UA) NEG (NEG) Urine Ketones NEG (NEG) Urine Occult Blood NEG (NEG) Urine Nitrite POS (NEG) Urine Bilirubin NEG (NEG) Urine Urobilinogen NEG (NEG) Urine Leukocyte Esterase LARGE (NEG) Urine WBC (Auto) >30 /hpf (0-5) Urine RBC (Auto) 0-4 /hpf (0-4) Urine Hyaline Casts (Auto) 1-5 /lpf (0-5) Urine Epithelial Cells (Auto) 0-5 /lpf (0-5) Urine Bacteria (Auto) 4+ (NEG) Urine Opiates Screen POS (NEG) Urine Methadone, Qualitative NEG (NEG) Urine Barbiturates NEG (NEG) Urine Phencyclidine (PCP) Level NEG (NEG) Ur Amphetamine/Methamphetamine NEG (NEG) MDMA (Ecstasy) Screen NEG (NEG) Urine Benzodiazepines Screen NEG (NEG) Urine Cocaine Metabolite NEG (NEG) Urine Marijuana (THC) NEG (NEG) Assessment & Plan Loading dose: vancomycin 1200 mg (15 mg/kg) IV X 1 dose then: vancomycin 1200 mg IV every 12 hours (this dose will be given early since a full load was not given; previous patient pharmacokinetic data suggests patient requires this amount every 10-12 hours). Goal peak level estimate: between 35 - 40 mcg/mL. Goal trough level estimate: between 15 - 20 mcg/mL (indication: currently unknown) Trough has been ordered for: prior to 1400 dose. Pharmacy will continue to follow and will adjust dose/frequency as necessary. Thank you
[2016-07-28] MEDS ORDERED: PIPERACILL/TAZOBAC CONSULT ACTIVE PRN (19:30)
[2016-07-28] MEDS ORDERED: VANCOMYCIN CONSULT ACTIVE PRN (19:30)
[2016-07-28] MEDS ORDERED: CALCIUM CARBONATE 1250MG TAB PO STA (21:57)
[2016-07-28] MEDS ORDERED: MONTELUKAST SOD 10 MG TAB PO STA (21:57)
[2016-07-28] MEDS ORDERED: FERROUS SULFATE 325 MG TAB PO STA (21:57)
[2016-07-28] MEDS ORDERED: CLOZAPINE 100 MG TAB PO STA (21:57)
[2016-07-28] MEDS ORDERED: AMANTADINE HCL 100 MG CAP PO STA (21:57)
[2016-07-28] MEDS ORDERED: TAMSULOSIN HCL 0.4 MG CAP PO STA (21:57)
[2016-07-28] MEDS ORDERED: PERPHENAZINE 2 MG TAB PO STA (21:57)
[2016-07-28] MEDS ORDERED: DOCUSATE SODIUM 100 MG CAP PO STA (21:57)
[2016-07-28] MEDS ORDERED: HYDROCODONE/ACETAMOPHEN 5/325MG TAB PO STA (22:16)
[2016-07-28] MEDS ORDERED: LORAZEPAM 1 MG TAB PO STA (22:16)
[2016-07-28] MEDS ORDERED: BACLOFEN 10 MG TAB PO STA (22:16)
[2016-07-29] VITALS (7 sets, daily range): BP systolic 100–116; BP diastolic 70–77; PULSE 20–99; TEMP 36.8–37.4; O2SAT 98–100
[2016-07-29] MEDS ORDERED: PIPERACILLIN/TAZOBACTAM 3.375 GM/100ML D5W IV STA (00:34)
[2016-07-29] MEDS ORDERED: SODIUM CHLORIDE 0.9% 1000ML 1,000 ML IV STA ×2 (00:35)
[2016-07-29 01:08] LABS: BASO % 0.2 %; BASO ABS # 0.04 K/uL (0-0.2); COMPLETE YES; EOS % 0.9 %; HEMATOCRIT 37.5 % (37-47); IG% 0.6 %; LYMPH % 7.7 %; LYMPH ABS # 1.63 K/uL (1.2-3.4); MEAN CELL VOLUME 88.9 fL (80-100); MEAN CORPUSCULAR HEMOGLOBIN 28.7 pg (25-34); MEAN CORPUSCULAR HGB CONC 32.3 g/dl (32-36); MEAN PLATELET VOLUME 9.5 fL (7.4-10.4); MONO % 13.9 %; NEUT % 76.7 %; PLATELET COUNT 294 K/uL (130-400); RED BLOOD COUNT 4.22 M/uL (4.2-5.4); WHITE BLOOD COUNT 21.12 K/uL (4.8-10.8)
[2016-07-29 01:21] LABS: PARTIAL THROMBOPLASTIN RATIO 1.2
[2016-07-29 01:39] LABS: ARTERIAL BLD GAS O2 SATURATION 97.5 % (90-95); ARTERIAL BLOOD GAS BASE EXCESS -0.7 mEq/L (-9-1.8); ARTERIAL BLOOD GAS HCO3 24 mmol/L (19-24); ARTERIAL BLOOD GAS PO2 107 mm/Hg (80-95)
[2016-07-29 01:40] LABS: ALLEN TEST POS (POS); O2 ADMINISTRATION 4 L
[2016-07-29 01:59] LABS: CALCIUM 8.2 mg/dl (8.5-10.1); CREATININE 0.63 mg/dl (0.60-1.20); MAGNESIUM 1.8 mg/dl (1.8-2.4); POTASSIUM 3.2 mmol/L (3.5-5.1)
[2016-07-29] MEDS ORDERED: VANCOMYCIN INJ 1,200 MG in SODIUM CHLORIDE 0.9% 250ML 250 ML IV SCH (02:00)
[2016-07-29] MEDS ORDERED: POTASSIUM CHLORIDE 10 MEQ TABCR PO STA (02:04)
[2016-07-29] MEDS ORDERED: MAGNESIUM SULFATE 1GM / D5W 1 GM in PREMIXED IN D5W 100 ML IV STA (02:13)
[2016-07-29] MEDS ORDERED: LIDODERM (LIDOCAINE) PATCH 5% TD ONE (03:12)
[2016-07-29] MEDS ORDERED: IBUPROFEN 200 MG TAB PO PRN (03:15)
[2016-07-29] MEDS ORDERED: HYDROCODONE/ACETAMOPHEN 5/325MG TAB PO PRN (03:15)
[2016-07-29] MEDS ORDERED: BACLOFEN 10 MG TAB PO PRN (03:15)
[2016-07-29] MEDS ORDERED: ACETAMINOPHEN IV 650 MG in EMPTY BAG 0 ML IV PRN (03:15)
[2016-07-29] MEDS ORDERED: KETOROLAC TROMETHAMINE 30 MG/ML VIAL IV PRN (03:15)
[2016-07-29] MEDS ORDERED: ACETAMINOPHEN 325 MG TAB PO PRN (03:15)
[2016-07-29] MEDS ORDERED: LORAZEPAM 1 MG TAB PO PRN (03:15)
[2016-07-29] MEDS ORDERED: SODIUM CHLOR 0.45% + 20MEQ KCL 1,000 ML IV ONE (04:00)
[2016-07-29] MEDS ORDERED: INCRUSE ELLIPTA~ORDER AWAITING ACTION SCH (08:00)
[2016-07-29] MEDS ORDERED: PIPERACILL/TAZOBAC IV 3.375 GM in DEXTROSE 5% 100ML 100 ML IV SCH (08:00)
[2016-07-29] MEDS ORDERED: FERROUS SULFATE 325 MG TAB PO SCH (08:00)
[2016-07-29 08:33] LABS: CREATININE 0.6 mg/dl (0.60-1.20)
[2016-07-29] MEDS ORDERED: GABAPENTIN 400 MG CAP PO SCH (09:00)
[2016-07-29] MEDS ORDERED: CLOZAPINE 100 MG TAB PO SCH (09:00)
[2016-07-29] MEDS ORDERED: CONSULT PHARMACY SCH (09:00)
[2016-07-29] MEDS ORDERED: ESCITALOPRAM OXALATE 20 MG TAB PO SCH (09:00)
[2016-07-29] MEDS ORDERED: CALCITONIN SALMON NA 200 IU/AC 3.7 ML BTL SCH (09:00)
[2016-07-29] MEDS ORDERED: AMANTADINE HCL 100 MG CAP PO SCH (09:00)
[2016-07-29] MEDS ORDERED: FENOFIBRATE 48 MG TAB PO SCH (09:00)
[2016-07-29] MEDS ORDERED: ENOXAPARIN 40 MG/0.4 ML SYR SQ SCH (09:00)
[2016-07-29] MEDS ORDERED: DOCUSATE SODIUM 100 MG CAP PO SCH (09:00)
[2016-07-29] MEDS ORDERED: PANTOprazole SOD 40 MG TAB PO SCH (09:00)
[2016-07-29] MEDS ORDERED: DOCUSATE SODIUM/SENNA 50/8.6MG TAB PO SCH (09:00)
[2016-07-29] MEDS ORDERED: PERPHENAZINE 2 MG TAB PO SCH (09:00)
[2016-07-29] MEDS ORDERED: NALOXONE HCL 0.4 MG/1 ML VIAL/CARP IV STA (09:07)
[2016-07-29] MEDS ORDERED: POTASSIUM CHLR 10 MEQ / WTR 10 MEQ in PREMIXED WATER 100 ML IV SCH (09:30)
--- NOTE | 2016-07-29 11:06 | HISTORY & PHYSICAL EXAMINATION ---
DATE OF ADMISSION: 07/29/2016 PRIMARY CARE PHYSICIAN: Dr. Adam. CHIEF COMPLAINT: Back pain as per records. HISTORY OF PRESENT ILLNESS: History obtained from records, ER provider, patient's sister. Limited history from patient secondary to obtunded state. Patient given her nighttime medications at the Emergency Room. Medical history significant for thoracic spinal compression fracture, status post decompression surgery procedure (06/2015), MRSAl osteomyelitis status post IV antibiotics, schizophrenia, HCV, chronic pain on narcotics, chronic resp failure 2 to COPD/ILD on home O2, past tobacco and alcohol abuse as per records. Hx DVT sp coumadin, hx seizure disorder as per records. Recent confinement April 2016 for lumbar disc osteomyelitis. Px discharged on IV Vancomycin course. As per patient's sister the patient's ID specialist, Dr. Tate feels that the infection could not eradicated without further surgery. Appointment with [facility] Neurosurgery and ID slated for end of July 2016. In the last week patient complaining of more achy back pain than usual, fever, chills, shortness of breath. Patient brought to the Emergency Room. CTA showed no PE, chronic lung disease, postsurgical changes thoracic spine, severe T8-T10 fracture, destructive changes T11 and T12 with associated paraspinal masses, pseudoarthrosis with paraspinal hematomas. Patient given IV Vancomycin and Zosyn in the ER for sepsis. [facility] Hospitalist service consulted to admit patient. Transfer to tertiary center recommended upon consultation with the patient's orthopedic it training specialist. Accepted for transfer at [facility] pending bed availability. ER provider requested hospitalist service to admit patient secondary to indefinite time of transfer to [facility]. Px had already been ay [facility] ER for 12hrs. MEDICAL HISTORY: As above. SURGERIES: She has had back surgery, cataract surgery, hysterectomy, tonsillectomy. HOME MEDICATIONS: Include oxygen, Ventolin, montelukast, baclofen, Vicodin, fluticasone, gabapentin, lorazepam, ferrous sulfate, omeprazole, calcium carbonate, amantadine, tamsulosin, milk of mag, citalopram, Fortical, cholecalciferol. ALLERGIES: HALDOL, LITHIUM, MOLINDONE, MORPHINE. FAMILY HISTORY: Heart disease. PERSONAL AND SOCIAL HISTORY: Past tobacco and alcohol abuse. On disability. REVIEW OF SYSTEMS: Could not be obtained. PHYSICAL EXAMINATION: VITAL SIGNS: Blood pressure was noted to be 100/70, pulse rate 90, RR 27, sats 98 on 4 liters. GENERAL: Noted to be drowsy, no respiratory distress, chronically ill. SKIN: Normal color. HEAD, EYES, EARS, NOSE, AND THROAT: [place] palpebral conjunctivae. Dry mucosa. NECK: Short neck. LUNGS: Decreased breath sounds. HEART: Regular rate and rhythm. ABDOMEN: Soft. BACK :Tenderness in the mid back. EXTREMITIES: No edema. no tenderness NEUROLOGIC EXAMINATION: Drowsy. Follows some commands. LABORATORY DATA: Hemoglobin was noted to be 12.1, white cell count 21.12, platelets 294. Sodium noted to be 140, potassium 2.9, chloride 106, CO2 23, BUN 20, creatinine 0.7, glucose 155. Troponin noted to be 0.01. initial POC lactic acid 2.4 [address] 0[address]8 [address] of the chest as per HPI above. EKG as per my interpretation, rate 140s, sinus tachycardia, right axis deviation , some T-wave inversion in inferior leads. ASSESSMENT AND PLAN: 1. Sepsis secondary to paraspinal abscess/chronic osteomyelitis hx back surgery recurrent infection sp tx hx MRSA significantly improved after initial intervention at the ER 2. Schizophrenia as per records. 3. Chronic pain. 4. Past tobacco/ETOH abuse. 5. Chronic resp failure 2 to COPD/ILD as per records Pulmonary status at baseline. 8. hx HCV as per records 9. hx drug abuse as per records GMF follow cultures, continue Vancomycin, Zosyn. IVF Transfer to [facility] once bed available analgesia, judicious narcotic use given hx drug abuse DVT prophylaxis, SCDs. RE paraspinal hematoma on CT FULL CODE. Patient's sister requesting updates from providers Miss Ranjana Tello at [phone]. DIXOND
--- NOTE | 2016-07-29 11:48 | Discharge Instructions ---
Discharge Instructions Date of Service Jul 29, 2016. Admission Reason for Admission: Sepsis Discharge Discharge Diagnosis / Problem: SEPSIS /THOACIC SPINAL OSTEOMYLELITIS / POSSIBLE PARASPINAL ABSCESS Discharge Goals Goal(s): Decrease discomfort, Improve disease control, Diagnostic testing Activity Recommendations Activity Limitations: as noted below ( TOLERATED ) . Instructions / Follow-Up Instructions / Follow-Up PT IS TRANSFERRED TO [facility] FOR SEPSIS /THORACIC SPINAL OSTEOMYELITIC/POSSIBLE PARASPINAL ABSCESS Current Hospital Diet Patient's current hospital diet: AHA Diet (Heart Healthy) Discharge Diet Recommended Diet: AHA Diet (Heart Healthy) Pending Studies Studies pending at discharge: no Medical Emergencies . Who to Call and When: Medical Emergencies: If at any time you feel your situation is an emergency, please call 911 immediately. . Non-Emergent Contact Non-Emergency issues call your: Primary Care Provider . . "Provider Documentation" section prepared by Vanessa Dick. . VTE Core Measure Inpt VTE Proph given/why not?: Piotr Moreno, SCD's
--- NOTE | 2016-07-29 11:52 | Discharge Summary ---
Discharge Summary Date of Service Jul 29, 2016. Discharge Summary Admission Date: Jul 29, 2016 at 02:19 Discharge Date: Jul 29, 2016 Discharge Disposition: Acute care facility ([facility] ) Principal Diagnosis: SEPSIS /THORACIC SPINAL OSTEOMYELITIS /POSSIBLE PARASPINAL ABSCESS Secondary Diagnoses/Problems: Medical Problems: (1) Accidental drug overdose Status: Resolved (2) Alcohol abuse Permanent Comment: no recent use attends AA Status: Resolved (3) Aspiration pneumonia Status: Resolved (4) Back pain Status: Chronic (5) Cataract Status: Chronic (6) Chronic hepatitis C Status: Chronic (7) Chronic obstructive lung disease Status: Chronic (8) Chronic paranoid schizophrenia Status: Chronic (9) Closed fracture of femur Permanent Comment: s/p ORIF Status: Resolved (10) COPD (chronic obstructive pulmonary disease) Status: Chronic (11) Deep venous thrombosis Status: Chronic (12) Depression Status: Chronic (13) Drug abuse Permanent Comment: narcotic addiction due to chronic pain attends NA Status: Resolved (14) Gastroesophageal reflux disease Status: Chronic (15) Hepatitis C Status: Chronic (16) Hypoxia Status: Chronic (17) Hysterectomy Status: Resolved (18) Osteoporosis Status: Chronic (19) S/P ORIF (open reduction internal fixation) fracture Permanent Comment: femur Status: Chronic (20) Schizoaffective disorder Status: Chronic (21) Seizure Status: Resolved (22) Tinea Status: Resolved (23) Tobacco user Status: Chronic Surgical Problems: (1) H/O colonoscopy Status: Chronic (2) History of hysterectomy Status: Chronic (3) S/p thoracic spinal surgery Permanent Comment: 07/07/2015; Dr. Caballero at [facility] Status: Chronic (4) S/P tonsillectomy Status: Chronic Procedures: CT CHEST WITH CONTRAST : IMPRESSION: 1. Examination compromised due to motion artifact. No CT evidence of central pulmonary emboli 2. Chronic interstitial/fibrotic lung disease similar to the preceding study 3. Postsurgical changes present within the thoracic spine with severe T8 and T10 fractures. Destructive changes again involve the T11 and T12 vertebra with associated paraspinal masses. The are likely secondary to a pseudoarthrosis with paraspinal hematomas. Chronic osteomyelitis could appear similar. Medication Reconciliation Continued Medications: Acetaminophen (Tylenol) 500 Mg Tab 500 MG PO UNKNOWN PRN for Pain, TAB MAX DOSE 2g total bec of Hep C Albuterol Hfa (Ventolin Hfa) 200 Puffs/71457 Mcg Aers 2 PUFFS INH Q6H PRN for SOB/Wheezing, #1 INHALER Amantadine HCl (Amantadine HCl) 100 Mg Cap 100 MG PO AMHS Calcitonin [place] (Calcitonin-[place]) 30 [place]/3.7 Ml Soln 1 SPRAY NA DAILY Calcium Carbonate (Calcium Carbonate) 1,250 Mg Tab 1250 MG PO AMHS Cholecalciferol (D 1000) 1,000 Unit Tab 1000 UNIT PO QAM Clozapine (Clozapine) 100 Mg Tab 100 MG PO TID, TAB Docusate Sodium (Docusate Sodium) 100 Mg Cap 100 MG PO BID, CAP Econazole Nitrate (Econazole Nitrate Crm 1% 30 Gm) 90 Appln/30 Gm Cr 1 APPLN TOP QID APPLY TO FEET Escitalopram Oxalate (Escitalopram Oxalate) 20 Mg Tab 20 MG PO QAM Fenofibrate (Fenofibrate) 48 Mg Tab 48 MG PO QAM Ferrous Sulfate (Ferrous Sulfate) 325 Mg Tab 325 MG PO BIDM Fluticasone Furoate-Vilanterol (Breo Ellipta) 1 Inh Inh 1 PUFF INH 1600 USE DIRECTED IN AM. Folic Acid (Folvite) 1 Mg Tab 1 MG PO QAM, TAB Magnesium Hydroxide (Milk Of Magnesia) 30 Ml Susp 30 ML PO DAILY PRN for PRN, ML Montelukast Sodium (Singulair) 10 Mg Tab 10 MG PO HS for 90 Days, TAB 1 Refill Omeprazole (Prilosec) 20 Mg Capcr 20 MG PO QAM, CAP TAKE ONE HOUR BEFORE BREAKFAST Perphenazine (Trilafon) 4 Mg Tab 12 MG PO AMHS Senna/Docusate Sod (Senokot S) 1 Tab Tab 2 TAB PO DAILY, TAB TAKE AT NOON Tamsulosin Hcl (Flomax) 0.4 Mg Cap 0.4 MG PO HS Umeclidinium [place] (Incruse Ellipta) 62.5 Mcg/Inh Inh 1 PUFF PO 1600 Discontinued Medications: Baclofen (Lioresal) 10 Mg Tab 10 MG PO TID PRN for Muscle Spasms Gabapentin (Gabapentin) 400 Mg Cap 400 MG PO BID, #60 Hydrocodone/Acetaminophen 5MG/325MG ([place] 5MG/325MG) Tab 1 TAB PO TID PRN for Pain, TAB MAX = 3 TABS DAILY Hydrocodone/Acetaminophen 5MG/325MG ([place] 5MG/325MG) Tab 0.5 TABLET PO HS PRN for Pain, TAB PRN PAIN Lorazepam (Ativan) 1 Mg Tab 1 MG PO BID PRN for Anxiety and/or Sedation, TAB Warfarin Sodium (Coumadin) 5 Mg Tab 5 MG PO DAILY, TAB Admission Information HPI (per Admitting provider): The patient is a 55 year old female who presents to [facility] with fever , chills, SOB , palpitation , ongoing back pain . Pt's past medical hx includes Thoracic spinal compression Fx T8-T10 level s/p decompression /fusion , with chronic osteomyelitis s/p I V ABx for X6 weeks Twice ., follows with ID in [place] , other medical issues includes Schizophrenia, hx of DVT, Hep C , COPD Brought to ED by family members ( Sister ) as home health visiting nurse noticed increased somnolence , confusion , rapid irregular heartbeat . Pt is interviewed in ER room B4B , awake and alert, does not appear to be confused very poor Historian , repeating same information repeatedly mentions not feeling well for past few days, felt cold and chilly , had ongoing back pain today having SOB , difficulty in breathing and chest pain In ED pt was found to be in Rapid Afib /RVT HR in 120's , marked leukocytosis WBC 25 K , with elevated lactic acid level> 2 CTA of chest ordered with IV contrast for PE protocol revealed -no evidence of PE Postsurgical changes present within the thoracic spine with severe T8 and T10 fractures. Destructive changes again involve the T11 and T12 vertebra with associated paraspinal masses. The are likely secondary to a pseudoarthrosis with paraspinal hematomas. Chronic osteomyelitis could appear similar. Physical Exam (per Admitting): General Appearance: mild distress (due to back pain , complains of being cold ) Head: NORMOCEPHALIC, ATRAUMATIC Eyes: SCLERAE NORMAL Respiratory: CLEAR TO AUSCULTATION Cardiovasular: irregular rate, abnormal rhythm Abdomen: NON TENDER Back: midline thoracic TTP, other (minimum exam due to severe back pain and pt' s discomfort ) Lower Extremities: NO EDEMA Neuro: ALERT, ORIENTED x 3, NORMAL SPEECH Psychiatric: depressed, anxious Hospital Course 55 Yo female with hx of osteoporosis, s/p decompression and fusion , chronic osteomyelitis of thoracic spine presented with fever , rapid afib ,leukocytosis , elevated lactic acid level CT chest finding of possible fluid collection around paraspinal muscle of T11/ T12 SEVERE SEPSIS /DUE TO POSSIBLE THORACIS PARASPINAL ABSCESS VS OSTEOMYELITIS meets criteria -Marked leukocytosis , elevated lactic acid , tachyarrhythmia -source of infection possible thoracic spine acute on chronic infection -Discussed case with Spinal Surgery Dr Eaton , pt in known his service from previous consult last year ( was transferred to [place] on for compression Fx of T8-T10 as pt was found to be too high risk /poor anesthesia candidate for extensive spinal surgery ) -updated CT chest finding of possible paraspinal fluid collection at T11/T12 level -Dr Eaton will be out of town for next 3 days -recommends pt should be emergently transferred to [facility] for possible drainage /surgical intervention D/w Pt and her sister Peyton explained the rationale of transferring pt to [place] as soon as possible Both patient and her sister verbalized understanding and in agreement with transfer to [facility] Updated ER attending -in agreement with the plan -as there will be no spinal surgery support for next 3 days for this acutely ill /septic pt who may need life saving spinal surgical procedure Pt is continued with empiric Abx with I V Zosyn and vancomycin lactic acid normalized after IV fluids Pt will be transferred to [facility] today for further Care AFIB /RVR : new diagnosis possible due to sepsis needs to have infection control /heart rate control with antiarrhythmic all form of anticoagulation should be avoided for possible spinal abscess /need for spinal surgery /IR drainage of spinal abscess will need cardiology eval and cardiac work up prior to any spinal procedure under general anesthesia DVT PROPHYLAXIS : avoid all form of anticoagulation for possible thoracic spine paraspinal hematoma scd and teds OOb as tolerated Full code DISPOSITION ; transfer to [facility] today Total time spent on discharge = 40 MINS This includes examination of the patient, discharge planning, medication reconciliation, and communication with other providers. Discharge Instructions Discharge Instructions Date of Service Jul 29, 2016. Admission Reason for Admission: Sepsis Discharge Discharge Diagnosis / Problem: SEPSIS /THORACIC SPINAL OSTEOMYELITIS / POSSIBLE PARASPINAL ABSCESS Discharge Goals Goal(s): Decrease discomfort, Improve disease control, Diagnostic testing Activity Recommendations Activity Limitations: as noted below ( TOLERATED ) . Instructions / Follow-Up Instructions / Follow-Up PT IS TRANSFERRED TO [facility] FOR SEPSIS /THORACIC SPINAL OSTEOMYELITIC/POSSIBLE PARASPINAL ABSCESS Current Hospital Diet Patient's current hospital diet: AHA Diet (Heart Healthy) Discharge Diet Recommended Diet: AHA Diet (Heart Healthy) Pending Studies Studies pending at discharge: no Medical Emergencies . Who to Call and When: Medical Emergencies: If at any time you feel your situation is an emergency, please call 911 immediately. . Non-Emergent Contact Non-Emergency issues call your: Primary Care Provider . . "Provider Documentation" section prepared by Vanessa Dick. . VTE Core Measure Inpt VTE Proph given/why not?: Piotr Moreno, SCD's Additional Copies To Roberto Lawrence M.D. Bailey, Gregory M.D.O.
[2016-07-29 13:12] LABS: CALCIUM 7.9 mg/dl (8.5-10.1); CREATININE 0.77 mg/dl (0.60-1.20)
[2016-07-29 13:38] LABS: POTASSIUM 3.8 mmol/L (3.5-5.1)
[2016-07-29] MEDS ORDERED: TAMSULOSIN HCL 0.4 MG CAP PO SCH (21:00)
[2016-07-29] MEDS ORDERED: MONTELUKAST SOD 10 MG TAB PO SCH (21:00)
[2016-07-30] MEDS ORDERED: LIDODERM (LIDOCAINE) PATCH 5% TD SCH (09:00)
[2016-07-30] MEDS ORDERED: VANCOMYCIN TROUGH SCH (13:30)
[2016-07-31 11:55] LABS: COD UR NEGATIVE NG/ML (CUTOFF=50); HYDROCOD UR 434 NG/ML (CUTOFF=50); HYDROMOR UR NEGATIVE NG/ML (CUTOFF=50); MORPHINE UR NEGATIVE NG/ML (CUTOFF=50); NORHYDROCODONE CONF UR 520 NG/ML (CUTOFF=50); OXYMORPH UR NEGATIVE NG/ML (CUTOFF=50)
--- NOTE | 2016-08-01 18:16 | EMERGENCY ROOM VISIT NOTE ---
ED Visit Note First contact with patient: 13:53 I discussed the case with PA multiple times given her extensive medical hx and evolving evaluation. Pt VS stablizing here, but concern for evolving sepsis. Eventually found to be most likely urinary source. Osteomyelitis likely chronic as read on CT given pt's hx. Previously evaluated for this at [facility] and no additional surgery planned. Pt originally admitted here, but her provisioning specialist is OOT and couldn't consult so medicine asked that pt be transferred. Initially pt accepted by [facility] in transfer - at this point in time I physically saw/'examined the pt at bedside. BP had been stable and tachycardia improving, pt did not appear toxic, was asking to eat and for additional pain meds. Pt signed out to colleague with transfer pending but in sable condition, had already received broad spectrum antibiotics.
[2016-10-18] MEDS ORDERED: ATR25 PO (11:50)
[2016-10-18] MEDS ORDERED: CFT250 PO (12:01)
[2016-10-18] MEDS ORDERED: GABA1CAP PO (12:01)
[2016-11-26] MEDS ORDERED: CLOZ100T18 PO (06:09)
[2016-11-26] MEDS ORDERED: PERP4TAB37 PO ×2 (06:17→09:04)
[2016-11-26] MEDS ORDERED: UMEC1INH PO (06:19)
[2016-11-26] MEDS ORDERED: FLUT1INH INH (06:20)
[2016-11-26] MEDS ORDERED: DOCU100C31 PO (06:22)
[2016-11-26] MEDS ORDERED: MONT1TAB3 PO (08:47)
[2016-11-26] MEDS ORDERED: ACET1TAB84 PO (09:04)
[2016-11-26] MEDS ORDERED: FLUT0.15 NAE (09:04)
[2016-11-26] MEDS ORDERED: BACL1TAB PO (09:04)
[2016-11-26] MEDS ORDERED: NAPR1TAB9 PO (09:10)
[2016-11-26] MEDS ORDERED: VNTHFA/IN INH (10:53)
[2016-11-26] MEDS ORDERED: ATV/1 PO (10:56)
[2016-11-26] MEDS ORDERED: TAMS0.4C38 PO (11:38)
[2016-11-26] MEDS ORDERED: SENN-65 PO (12:13)
[2016-11-26] MEDS ORDERED: SPCCR30 TOP (12:13)
[2016-11-26] MEDS ORDERED: MCLIN (15:22)
[2016-11-26] MEDS ORDERED: MOML PO (15:22)
[2016-11-26] MEDS ORDERED: LXP/20 PO (17:03)
[2016-11-26] MEDS ORDERED: TRC48 PO (17:03)
[2016-11-26] MEDS ORDERED: FERR1TAB62 PO (18:03)
[2016-11-26] MEDS ORDERED: CHOL1TAB53 PO (18:12)
[2016-11-26] MEDS ORDERED: RANI150T2 PO (18:26)
[2016-12-01] MEDS ORDERED: PERP4TAB37 PO (20:51)
[2016-12-08] MEDS ORDERED: LEVO750T23 PO (11:00)
[2017-01-09] MEDS ORDERED: PHEN-876 PO (04:08)
[2017-01-11] MEDS ORDERED: CIPR-255 PO (13:05)
== END 2016-07-29 13:30 | disposition short-term general hospital (02) | DRG 872 ==
LOC: EDBD 13:45 → C.EDB 13:46 → ENRESERV 18:56 → CANRESERV 18:56 → ENRESERV 20:05 → CANBEDREQ 21:22 → C.MSN 07-29 02:19 → CANRESERV 07-29 02:29 → ENRESERV 07-29 02:29 → C.2T 07-29 09:08 → ENRESERV 07-29 09:42
PROVIDERS: ADMIT Internal Medicine; ATTEND Hospitalist
DX: A41.9 Sepsis, unspecified organism (principal); M46.24 Osteomyelitis of vertebra, thoracic region; J32.9 Chronic sinusitis, unspecified; K21.9 Gastro-esophageal reflux disease without esophagitis; J44.9 Chronic obstructive pulmonary disease, unspecified; F32.9 Major depressive disorder, single episode, unspecified; B18.2 Chronic viral hepatitis C; M81.0 Age-related osteoporosis without current pathological fracture; F25.9 Schizoaffective disorder, unspecified; Z90.710 Acquired absence of both cervix and uterus; G89.29 Other chronic pain

== ENCOUNTER → 2016-08-09 | Outpatient (CLI) | payer OTHER ==
[~2016-08-09] MED LIST changes: +ACET-1256 PO; +ACET1TAB84 PO; +ATR25 PO; -BACL10TA PO; +BACL1TAB PO; +BUPR100T8 PO; +BUPR150T5 PO; +CALCTAB27 PO; +CEFU1TAB33 PO; +CEFU1TAB35 PO; +CFT250 PO; +CHOL1TAB53 PO; +CIPR-255 PO; +CLOZ100T18 PO; +DOCU100C31 PO; +FERR1TAB62 PO; +FLUT1INH INH; -FLUT1INH7; +FOLI1TAB7 PO; +GABA1CAP PO; +GABA1CAP5 PO; +HYDR-4330 PO; -HYDR-5688 PO; +LEVO750T23 PO; +LXP/20 PO; +MCLIN; +MCRB100HP PO; +MOML PO; +MONT1TAB3 PO; +NAPR1TAB9 PO; +OXYC-57 PO; +PERP4TAB37 PO; +PHEN-876 PO; -PRED20TA PO; +PRED20TA2 PO; +RANI150T2 PO; +RISP1TAB68 PO; +RSP1 PO; +SENN-65 PO; +SENN1TAB65 PO; +SPCCR30 TOP; +SULF800T23 PO; +TAMS0.4C38 PO; +TRC48 PO; +UMEC1INH PO; -WARF5TAB90 PO; +ZOLE5INJ INJ
[2016-08-09 09:09] LABS: BASO % 0.5 %; BASO ABS # 0.05 K/uL (0-0.2); COMPLETE YES; EOS % 2.9 %; HEMATOCRIT 41.3 % (37-47); IG% 0.4 %; LYMPH % 18.6 %; LYMPH ABS # 1.83 K/uL (1.2-3.4); MEAN CELL VOLUME 91.6 fL (80-100); MEAN CORPUSCULAR HGB CONC 31.7 g/dl (32-36); MEAN PLATELET VOLUME 10.8 fL (7.4-10.4); MONO % 11.6 %; PLATELET COUNT 298 K/uL (130-400); RED BLOOD COUNT 4.51 M/uL (4.2-5.4); WHITE BLOOD COUNT 9.84 K/uL (4.8-10.8)
[2016-08-09 09:36] LABS: CALCIUM 9.4 mg/dl (8.5-10.1)
[2016-08-09 09:39] LABS: BLOOD UREA NITROGEN 18 mg/dl (7-18); BUN/CREATININE RATIO 24.8 (10-20); CARBON DIOXIDE 28 mmol/L (21-32); CHLORIDE 107 mmol/L (98-107); CREATININE 0.73 mg/dl (0.60-1.20); GLUCOSE 118 mg/dl (70-99); POTASSIUM 4.1 mmol/L (3.5-5.1); SODIUM 143 mmol/L (136-145)
== END | disposition home or self-care (01) ==
LOC: C.LABSPEC 08:34
PROVIDERS: ATTEND Internal Medicine Infectious Disease
DX: M46.26 Osteomyelitis of vertebra, lumbar region (principal); B95.7 Other staphylococcus as the cause of diseases classified elsewhere; N39.0 Urinary tract infection, site not specified; B96.1 Klebsiella pneumoniae [K. pneumoniae] as the cause of diseases classified elsewhere

== ENCOUNTER → 2016-08-15 | Outpatient (CLI) | payer OTHER ==
[2016-08-15 20:30] LABS: HEMATOCRIT 33.2 % (37-47); MEAN CELL VOLUME 89.5 fL (80-100); MEAN CORPUSCULAR HEMOGLOBIN 28.3 pg (25-34); MEAN CORPUSCULAR HGB CONC 31.6 g/dl (32-36); MEAN PLATELET VOLUME 10.1 fL (7.4-10.4); PLATELET COUNT 238 K/uL (130-400); RED BLOOD COUNT 3.71 M/uL (4.2-5.4); WHITE BLOOD COUNT 9.88 K/uL (4.8-10.8)
[2016-08-15 20:48] LABS: BLOOD UREA NITROGEN 22 mg/dl (7-18); BUN/CREATININE RATIO 29.5 (10-20); C-REACTIVE PROTEIN < 0.29 mg/dl (0-0.29); CALCIUM 7.4 mg/dl (8.5-10.1); CARBON DIOXIDE 25 mmol/L (21-32); CHLORIDE 106 mmol/L (98-107); CREATININE 0.74 mg/dl (0.60-1.20); GLUCOSE 106 mg/dl (70-99); POTASSIUM 3.3 mmol/L (3.5-5.1); SODIUM 138 mmol/L (136-145)
== END | disposition home or self-care (01) ==
LOC: C.LABSPEC 10:24
PROVIDERS: ATTEND Internal Medicine Infectious Disease
DX: M46.26 Osteomyelitis of vertebra, lumbar region (principal); B95.7 Other staphylococcus as the cause of diseases classified elsewhere; N39.0 Urinary tract infection, site not specified; B96.1 Klebsiella pneumoniae [K. pneumoniae] as the cause of diseases classified elsewhere

== ENCOUNTER → 2016-08-18 | Outpatient (CLI) | payer OTHER ==
[2016-08-18 08:55] LABS: BLOOD UREA NITROGEN 21 mg/dl (7-18); CALCIUM 8.9 mg/dl (8.5-10.1); CARBON DIOXIDE 23 mmol/L (21-32); CHLORIDE 112 mmol/L (98-107); CREATININE 0.74 mg/dl (0.60-1.20); GLUCOSE 168 mg/dl (70-99); SODIUM 145 mmol/L (136-145)
== END ==
LOC: C.LABSPEC 07:59
PROVIDERS: ATTEND Internal Medicine Infectious Disease
DX: M46.26 Osteomyelitis of vertebra, lumbar region (principal); B95.7 Other staphylococcus as the cause of diseases classified elsewhere; N39.0 Urinary tract infection, site not specified; B96.1 Klebsiella pneumoniae [K. pneumoniae] as the cause of diseases classified elsewhere

== ENCOUNTER → 2016-08-21 | Outpatient (CLI) | payer OTHER ==
[2016-08-21 11:38] LABS: BASO % 0.6 %; BASO ABS # 0.04 K/uL (0-0.2); COMPLETE YES; EOS % 6.9 %; IG% 0.3 %; LYMPH % 27.3 %; LYMPH ABS # 1.95 K/uL (1.2-3.4); MEAN CELL VOLUME 92.3 fL (80-100); MEAN CORPUSCULAR HGB CONC 32.4 g/dl (32-36); MEAN PLATELET VOLUME 10.3 fL (7.4-10.4); MONO % 13.6 %; NEUT % 51.3 %; PLATELET COUNT 260 K/uL (130-400); RED BLOOD COUNT 4.44 M/uL (4.2-5.4); WHITE BLOOD COUNT 7.14 K/uL (4.8-10.8)
[2016-08-21 11:45] LABS: BLOOD UREA NITROGEN 24 mg/dl (7-18); BUN/CREATININE RATIO 31.6 (10-20); CARBON DIOXIDE 26 mmol/L (21-32); CHLORIDE 111 mmol/L (98-107); CREATININE 0.75 mg/dl (0.60-1.20); GLUCOSE 114 mg/dl (70-99); POTASSIUM 4.3 mmol/L (3.5-5.1); SODIUM 145 mmol/L (136-145)
== END | disposition home or self-care (01) ==
LOC: C.LABSPEC 10:12
PROVIDERS: ATTEND Internal Medicine Infectious Disease
DX: M46.26 Osteomyelitis of vertebra, lumbar region (principal); B95.7 Other staphylococcus as the cause of diseases classified elsewhere; N39.0 Urinary tract infection, site not specified; B96.1 Klebsiella pneumoniae [K. pneumoniae] as the cause of diseases classified elsewhere

== ENCOUNTER → 2016-08-24 | Outpatient (CLI) | payer OTHER ==
[~2016-08-24] MED LIST changes: -CIPR-255 PO; -FERR1TAB62 PO; +FERR325T PO; +PERP1TAB11 PO; -PERP4TAB37 PO; -PHEN-876 PO; -RISP1TAB68 PO; -RSP1 PO; -SENN1TAB65 PO; -SULF800T23 PO
[2016-08-24 08:57] LABS: BASO % 0.6 %; BASO ABS # 0.05 K/uL (0-0.2); COMPLETE YES; EOS % 4.7 %; HEMATOCRIT 38.2 % (37-47); IG% 0.3 %; LYMPH % 18.6 %; LYMPH ABS # 1.62 K/uL (1.2-3.4); MEAN CORPUSCULAR HEMOGLOBIN 29.3 pg (25-34); MEAN CORPUSCULAR HGB CONC 32.2 g/dl (32-36); MEAN PLATELET VOLUME 10.7 fL (7.4-10.4); MONO % 11.4 %; NEUT % 64.4 %; PLATELET COUNT 172 K/uL (130-400)
[2016-08-24 09:22] LABS: BLOOD UREA NITROGEN 16 mg/dl (7-18); BUN/CREATININE RATIO 24.4 (10-20); CALCIUM 8.9 mg/dl (8.5-10.1); CARBON DIOXIDE 24 mmol/L (21-32); CHLORIDE 106 mmol/L (98-107); CREATININE 0.64 mg/dl (0.60-1.20); GLUCOSE 108 mg/dl (70-99); POTASSIUM 4.2 mmol/L (3.5-5.1); SODIUM 137 mmol/L (136-145)
== END | disposition home or self-care (01) ==
LOC: C.LABSPEC 08:06
PROVIDERS: ATTEND Internal Medicine Infectious Disease
DX: M46.26 Osteomyelitis of vertebra, lumbar region (principal); B95.7 Other staphylococcus as the cause of diseases classified elsewhere; N39.0 Urinary tract infection, site not specified; B96.1 Klebsiella pneumoniae [K. pneumoniae] as the cause of diseases classified elsewhere

== ENCOUNTER 2016-08-31 10:28 | Emergency (ER) | payer OTHER ==
[~2016-08-31] VITALS: Ht 163.8 cm; Wt 82.1 kg
[~2016-08-31 10:28] MED LIST changes: -ACET1TAB84 PO; -ATR25 PO; -ATV/1 PO; -AZIT250T PO; -BACL1TAB PO; -BUPR100T8 PO; -BUPR150T5 PO; -CALCTAB27 PO; -CEFU1TAB33 PO; -CEFU1TAB35 PO; -CFT250 PO; -CHOL1TAB53 PO; -CLOZ100T18 PO; -DOCU100C31 PO; -FERR325T PO; -FLUT0.15 NAE; -FLUT1INH INH; -FOLI1TAB7 PO; -GABA-112 PO; -GABA1CAP PO; -GABA1CAP5 PO; -HYDR-4330 PO; -LEVO750T23 PO; -LXP/20 PO; -MCLIN; -MCRB100HP PO; -MOML PO; -MONT1TAB3 PO; -NAPR1TAB9 PO; -OXYC-57 PO; -PERP1TAB11 PO; -PRED20TA2 PO; -RANI150T2 PO; -SENN-65 PO; -SPCCR30 TOP; -TAMS0.4C38 PO; -TRC48 PO; -UMEC1INH PO; -ZOLE5INJ INJ
[2016-08-31 10:31] VITALS: TEMP 36.3; Ht 163.8 cm; Wt 82.1 kg
[2016-08-31] MEDS ORDERED: BUPR150T5 PO (10:48)
[2016-08-31] MEDS ORDERED: GABA1CAP5 PO (10:56)
--- NOTE | 2016-08-31 10:57 | EMERGENCY ROOM VISIT NOTE ---
History First contact with patient: 10:49 Chief Complaint: SWELLING TO EXTREMITY Stated Complaint: BLOOD CLOT SENT BY PCP History of Present Illness The patient is a 55 year old female who presents to the Emergency Room via private vehicle with complaints of "swelling to extremity". The patient states that yesterday she developed a dull ache in the right anterior pool, and when she woke this morning it looked swollen. She is concerned that she may have a blood clot in this region and she has had them in the past. She is currently not on any anticoagulants. She denies any trauma to the region. She does note minimal pain to the right anterior pool. She tried calling her family doctor today to schedule an appointment, however they encouraged her to go to the emergency department for a rule out DVT study as they were unable to see her today. She denies any other new symptoms, and denies any chest pain, shortness of breath. Review of Systems A complete 10-point Review of Systems was discussed with the patient, with pertinent positives and negatives listed in the History of Present Illness. All remaining Review of Systems questions can be considered negative unless otherwise specified. Past Medical/Surgical History Medical Problems: (1) Accidental drug overdose (2) Alcohol abuse (3) Aspiration pneumonia (4) Back pain (5) Cataract (6) Chronic hepatitis C (7) Chronic obstructive lung disease (8) Chronic paranoid schizophrenia (9) Closed fracture of femur (10) COPD (chronic obstructive pulmonary disease) (11) Deep venous thrombosis (12) Depression (13) Drug abuse (14) Gastroesophageal reflux disease (15) Hepatitis C (16) Hypoxia (17) Hysterectomy (18) Opiate abuse, continuous (19) Osteomyelitis (20) Osteoporosis (21) Past Psych Meds (22) Psychosis (23) S/P ORIF (open reduction internal fixation) fracture (24) Schizoaffective disorder (25) Seizure (26) Suicidal ideation (27) Tinea (28) Tobacco user Surgical Problems: (1) H/O colonoscopy (2) History of hysterectomy (3) S/p thoracic spinal surgery (4) S/P tonsillectomy Family History FH: lung cancer GRANDMOTHER Thyroid disorder MOTHER SISTER Social History Smoking Status: Former Smoker Alcohol Use: none Drug Use: other Marital Status: single Housing Status: lives with family Occupation Status: disabled Current/Historical Medications Scheduled Azithromycin (Zithromax), 250 MG PO DIRECTED Bupropion Hcl (Bupropion Hcl Xl), 1 TAB PO QAM Calcitonin [place] (Calcitonin-[place]), 1 SPRAY NA DAILY Calcium Carbonate (Calcium Carbonate), 1,250 MG PO AMHS Cholecalciferol (D 1000), 1,000 UNIT PO QAM Clozapine (Clozapine), 100 MG PO TID Docusate Sodium (Docusate Sodium), 100 MG PO BID Econazole Nitrate (Econazole Nitrate Crm 1% 30 Gm), 1 APPLN TOP QID Escitalopram Oxalate (Escitalopram Oxalate), 20 MG PO QAM Fenofibrate (Fenofibrate), 48 MG PO QAM Ferrous Sulfate (Ferrous Sulfate), 325 MG PO BIDM Fluticasone Furoate-Vilanterol (Breo Ellipta), 1 PUFF INH 1600 Folic Acid (Folvite), 1 MG PO QAM Gabapentin (Neurontin), 400 MG PO BID Lorazepam (Ativan), 1 MG PO DIRECTED Montelukast Sodium (Singulair), 10 MG PO HS Omeprazole (Prilosec), 20 MG PO QAM Perphenazine (Trilafon), 12 MG PO AMHS Prednisone (Prednisone Tab), 20 MG PO DIRECTED Senna/Docusate Sod (Senokot S), 2 TAB PO DAILY Tamsulosin Hcl (Flomax), 0.4 MG PO HS Umeclidinium [place] (Incruse Ellipta), 1 PUFF PO 1600 Scheduled PRN Acetaminophen (Tylenol), 500 MG PO UNKNOWN PRN for Pain Albuterol Hfa (Ventolin Hfa), 2 PUFFS INH Q6H PRN for SOB/Wheezing Magnesium Hydroxide (Milk Of Magnesia), 30 ML PO DAILY PRN for PRN Allergies Coded Allergies: Haloperidol (Verified Allergy, Unknown, 08/31/16) [employer] (Verified Allergy, Unknown, ., 08/31/16) Molindone (Verified Adverse Reaction, Intermediate, PT FEELS LIKE SHES "JUMPING OUT OF HER SKIN", 08/31/16) Morphine and Related (Verified Adverse Reaction, Intermediate, DROWSY, 08/31) px was drowsy w/ pinpoint pupils and minimally responsive. stable VS. Following Morphine IR 15mg - 3 doses in prior 24 hours. Naloxone 0.4mg admin 3 times during that period. Fluphenazine (Verified Adverse Reaction, Unknown, confusion, 08/31/16) Physical Exam Vital Signs Date Time Temp Pulse Resp B/P (MAP) Pulse Ox O2 Delivery O2 Flow Rate FiO2 08/31/16 12:22 89 18 136/92 100 Nasal Cannula 2.0 08/31/16 10:31 36.3 98 20 138/81 99 Room Air 2.0 Nasal Cannula Physical Exam VITAL SIGNS - Vital signs and nursing notes were reviewed. Patient is afebrile , hypertensive at 138/81, non-tachycardic and is saturating well on 2 L of oxygen at 99%. GENERAL -55-year-old female appearing her stated age who is in no acute distress. Communicates well with provider and answers questions appropriately. SKIN - Without rashes. There is slight edema noted to the right lower extremity , with small skin discoloration the right anterior pool consistent with that of a bruise. EXTREMITIES - No clubbing or peripheral cyanosis. No pretibial edema present. There is slight tenderness to palpation overlying the right anterior mid pool, full range of motion of this region. No neurovascular deficit. Medical Decision & Procedures ER Provider Diagnostic Interpretation: Venous Doppler right leg RIGHT VENOUS DOPP LOWER EXT UNILAT CLINICAL HISTORY: Right leg edema, hx DVT Right TECHNIQUE: Venous Doppler COMPARISON STUDY: None FINDINGS: Normal study IMPRESSION: Normal study Electronically signed by: Manfred Noriega M.D. 08/31/2016 11:54 AM Dictated Date/Time: 08/31/2016 11:54 AM RIGHT TIBIA/FIBULA 2 VIEWS ROUTINE CLINICAL HISTORY: 55 years-old Female presenting with Right leg edema and pain Right. TECHNIQUE: Frontal and lateral views of the right lower leg were obtained. COMPARISON: 12/19/2014. FINDINGS: Intramedullary nina partially visualized in the distal right femoral diametaphysis. Knee and ankle joints grossly congruent. No acute fracture, malalignment, or radiopaque foreign body. Soft tissues are grossly unremarkable. IMPRESSION: 1. No acute osseous injury of the right lower leg. Electronically signed by: Ayden Palacios 08/31/2016 12:16 PM Dictated Date/Time: 08/31/2016 12:13 PM Medical Decision Patient was seen and evaluated as above. She presents to us today referred by her family doctor for evaluation of DVT in the right lower extremity. She does have a history of DVTs. Ultrasound was obtained as well as radiograph no evidence of DVT, or fracture. Physical examination there is evidence of some soft tissue swelling. I do not suspect any emergent or acute process. I believe the patient is stable for outpatient management. Patient was also seen and evaluated by my attending. Patient was educated upon management, educated upon worrisome symptoms which to return, had questions prior to discharge, and was discharged home. In evaluation treatment this patient following differential diagnoses were entertained: Fracture, DVT, bruise, among others. Patient's blood pressure was slightly elevated, she is to follow-up with her family doctor. I attest that I personally reviewed the patient's medication list. Impression Primary Impression: Swelling of right extremity Departure Information Dispostion Home / Self-Care Condition GOOD Referrals Naveed Adam III, M.D. (PCP) Patient Instructions My [facility] Additional Instructions You have been treated in the Emergency Department for right leg swelling. Ultrasound does not show any blood clot in her leg, and the x-ray does not show any break in the bone. Please resume her normal medications. For pain control, you can use the following [id number] medicines (if >12 yo): - Regular strength (325mg/tab) Tylenol (acetaminophen) 2 tabs every 4-6 hours as needed. Do not exceed 12 tablets in a 24 hour period. Avoid taking more than 3 grams (3000 mg) of Tylenol per day. This includes any other sources of acetaminophen you may take on a regular basis. If this is a recent injury (<24 hrs), ice can be applied to the area of pain for the first 3 days to help decrease pain and inflammation. Ice massages can be performed by freezing water in a paper cup, peeling back the cup to expose the ice and then massaging over the affected area. Please schedule a follow-up with your family doctor in regards to today's visit. You're blood pressure was found to be slightly elevated today. Please follow-up regarding this. Return to the Emergency Department if your current symptoms worsen despite treatment course outlined above. Please return to the emergency department with any new/concerning symptoms.
[2016-08-31] MEDS ORDERED: PRED20TA2 PO (10:58)
[2016-08-31] MEDS ORDERED: AZIT250T PO (10:58)
--- NOTE | 2016-08-31 11:55 | DIAGNOSTIC IMAGING REPORT ---
Venous Doppler right leg RIGHT VENOUS DOPP LOWER EXT UNILAT CLINICAL HISTORY: Right leg edema, hx DVT Right TECHNIQUE: Venous Doppler COMPARISON STUDY: None FINDINGS: Normal study IMPRESSION: Normal study Electronically signed by: Manfred Noriega M.D. 08/31/2016 11:54 AM Dictated Date/Time: 08/31/2016 11:54 AM
--- NOTE | 2016-08-31 12:17 | DIAGNOSTIC IMAGING REPORT ---
RIGHT TIBIA/FIBULA 2 VIEWS ROUTINE CLINICAL HISTORY: 55 years-old Female presenting with Right leg edema and pain Right. TECHNIQUE: Frontal and lateral views of the right lower leg were obtained. COMPARISON: 12/19/2014. FINDINGS: Intramedullary nina partially visualized in the distal right femoral diametaphysis. Knee and ankle joints grossly congruent. No acute fracture, malalignment, or radiopaque foreign body. Soft tissues are grossly unremarkable. IMPRESSION: 1. No acute osseous injury of the right lower leg. Electronically signed by: Ayden Palacios 08/31/2016 12:16 PM Dictated Date/Time: 08/31/2016 12:13 PM
[2016-08-31 12:22] VITALS: BP 136/92; PULSE 89; O2SAT 100
--- NOTE | 2016-08-31 12:40 | EMERGENCY ROOM VISIT NOTE ---
ED Visit Note First contact with patient: 10:49 Patient was seen by our PA/SKIN WASHER. I was involved in the patient's care and did evaluate the patient myself. I was involved in the care throughout the ER stay. The patient presents with leg pain. She has a history of DVT. Films of the leg did not show fracture, ultrasound does not show DVT. There is no cellulitis. The patient is being discharged home.
[2016-10-18] MEDS ORDERED: ATR25 PO (11:50)
[2016-10-18] MEDS ORDERED: CFT250 PO (12:01)
[2016-10-18] MEDS ORDERED: GABA1CAP PO (12:01)
[2016-11-26] MEDS ORDERED: CLOZ100T18 PO (06:09)
[2016-11-26] MEDS ORDERED: PERP1TAB11 PO ×2 (06:17→09:04)
[2016-11-26] MEDS ORDERED: UMEC1INH PO (06:19)
[2016-11-26] MEDS ORDERED: FLUT1INH INH (06:20)
[2016-11-26] MEDS ORDERED: DOCU100C31 PO (06:22)
[2016-11-26] MEDS ORDERED: MONT1TAB3 PO (08:47)
[2016-11-26] MEDS ORDERED: BACL1TAB PO (09:04)
[2016-11-26] MEDS ORDERED: FLUT0.15 NAE (09:04)
[2016-11-26] MEDS ORDERED: ACET1TAB84 PO (09:04)
[2016-11-26] MEDS ORDERED: NAPR1TAB9 PO (09:10)
[2016-11-26] MEDS ORDERED: VNTHFA/IN INH (10:53)
[2016-11-26] MEDS ORDERED: ATV/1 PO (10:56)
[2016-11-26] MEDS ORDERED: TAMS0.4C38 PO (11:38)
[2016-11-26] MEDS ORDERED: SENN-65 PO (12:13)
[2016-11-26] MEDS ORDERED: SPCCR30 TOP (12:13)
[2016-11-26] MEDS ORDERED: MCLIN (15:22)
[2016-11-26] MEDS ORDERED: MOML PO (15:22)
[2016-11-26] MEDS ORDERED: TRC48 PO (17:03)
[2016-11-26] MEDS ORDERED: LXP/20 PO (17:03)
[2016-11-26] MEDS ORDERED: FERR325T PO (18:03)
[2016-11-26] MEDS ORDERED: CHOL1TAB53 PO (18:12)
[2016-11-26] MEDS ORDERED: RANI150T2 PO (18:26)
== END 2016-08-31 12:44 | disposition home or self-care (01) ==
LOC: C.EDB 10:31
DX: R22.31 Localized swelling, mass and lump, right upper limb (principal); M79.606 Pain in leg, unspecified; J44.9 Chronic obstructive pulmonary disease, unspecified; B19.20 Unspecified viral hepatitis C without hepatic coma; F32.9 Major depressive disorder, single episode, unspecified; K21.9 Gastro-esophageal reflux disease without esophagitis; M81.0 Age-related osteoporosis without current pathological fracture; F20.9 Schizophrenia, unspecified; G40.909 Epilepsy, unspecified, not intractable, without status epilepticus; F17.200 Nicotine dependence, unspecified, uncomplicated; Z90.710 Acquired absence of both cervix and uterus; Z87.81 Personal history of (healed) traumatic fracture; Z86.718 Personal history of other venous thrombosis and embolism; Z98.890 Other specified postprocedural states; Z87.891 Personal history of nicotine dependence; Z79.899 Other long term (current) drug therapy; Z88.5 Allergy status to narcotic agent; Z88.8 Allergy status to other drugs, medicaments and biological substances; Z84.89 Family history of other specified conditions

== ENCOUNTER → 2016-09-21 | Day surgery (SDC) | payer OTHER ==
[2016-09-12 09:11] VITALS: Ht 163.8 cm; Wt 80.5 kg
[~2016-09-21] VITALS: Ht 163.8 cm; Wt 80.5 kg
[~2016-09-21] MED LIST changes: -ACET-1256 PO; +ACET1TAB84 PO; +ATR25 PO; +ATV/1 PO; +AZIT250T PO; +BACL1TAB PO; +BUPR100T8 PO; +BUPR150T5 PO; +CALCTAB27 PO; +CEFU1TAB33 PO; +CEFU1TAB35 PO; +CFT250 PO; +CHOL1TAB53 PO; +CLOZ100T18 PO; +DOCU100C31 PO; +FERR325T PO; +FLUT0.15 NAE; +FLUT1INH INH; +FOLI1TAB7 PO; +GABA-112 PO; +GABA1CAP PO; +GABA1CAP5 PO; +HYDR-4330 PO; +LEVO750T23 PO; +LIDOCAINE HCL 2% 2 ML VIAL (20MG/ML) ONE; +LXP/20 PO; +MCLIN; +MCRB100HP PO; +MIDAZOLAM HCL 1 MG/ML 2ML VIAL ONE; +MOML PO; +MONT1TAB3 PO; +NAPR1TAB9 PO; +OXYC-57 PO; +PERP1TAB11 PO; +PRED20TA2 PO; +PROPOFOL IV EMULSION 10 MG/ML 20 ML VIAL IV ONE; +RANI150T2 PO; +SENN-65 PO; +SODIUM CHLORIDE 0.9% 500ML 500 ML IV ONE; +SPCCR30 TOP; -SYM100 PO; +TAMS0.4C38 PO; +TRC48 PO; +UMEC1INH PO; +ZOLE5INJ INJ
--- NOTE | 2016-09-21 08:35 | Endo History and Physical ---
History & Physical Date of Service: Sep 21, 2016. Chief Complaint: Referring Physician: History of Present Illness 55 yo presenting for evaluation of history of colon polyps and ischemic colitis. Significant ILD and COPD Past Surgical History Hx Cardiac Surgery: No Hx Internal Defibrillator: No Hx Pacemaker: No Hx Abdominal Surgery: Yes (GINGER BSO) Hx of Implantable Prosthesis: No Hx Post-Op Nausea and Vomiting: No Hx Cancer Surgery: No Hx Thoracic Surgery: No Hx Orthopedic: Yes (T5-11 FUSION, LT/RT FEMUR SX S/P BREAK WITH HARDWARE) Hx Urinary Tract Surgery: No Family History Colon CA, IBD Social History Smoking Status: Former Smoker Hx Substance Use: Yes (QUIT "A COUPLE YEARS AGO") Hx Alcohol Use: Yes (QUIT "A COUPLE YEARS AGO") Allergies Coded Allergies: Haloperidol (Verified Allergy, Unknown, "MAKES ME GO INTO BLACKOUT", ) [place] (Verified Allergy, Unknown, "LEVEL CAN GET TOO HIGH", 09/21/16) Molindone (Verified Adverse Reaction, Intermediate, PT FEELS LIKE SHES "JUMPING OUT OF HER SKIN", 09/21/16) Morphine and Related (Verified Adverse Reaction, Intermediate, DROWSY, ) px was drowsy w/ pinpoint pupils and minimally responsive. stable VS. Following Morphine IR 15mg - 3 doses in prior 24 hours. Naloxone 0.4mg admin 3 times during that period. Fluphenazine (Verified Adverse Reaction, Unknown, confusion, 09/21/16) Current Medications Reported Home Medications Medications Dose Route/Sig Max Daily Dose Days Date Category Dose Instructions Aleve (Naproxen) 220 Mg Tab 220 Mg PO QAM PRN 09/12/16 Reported Flonase Allergy Relief (Fluticasone Propionate (Nasal)) 50 Mcg/Act Spr 2 Sprays JOSE QAM 09/12/16 Reported Tylenol Arthritis Ext Rel (Acetaminophen) 650 Mg Cplt 650 Mg PO Q8H PRN 09/12/16 Reported Lioresal (Baclofen) 10 Mg Tab 10 Mg PO TID PRN 09/12/16 Reported Trilafon (Perphenazine) 4 Mg Tab 8 Mg PO 1300 09/12/16 Reported Zithromax (Azithromycin) 250 Mg Tab 250 Mg PO DIRECTED 08/31/16 Reported 2 today, then 1 each day for 4 days Prednisone Tab (Prednisone) 20 Mg Tab 20 Mg PO DIRECTED 08/31/16 Reported 2 tabs for 5 days, then 1 tab for 5 days Ativan (Lorazepam) 1 Mg Tab 1 Mg PO DIRECTED 08/31/16 Reported 0.5-1mg tab PRN only, max 2mg Neurontin (Gabapentin) 400 Mg Cap 400 Mg PO BID 08/31/16 Reported Ventolin Hfa (Albuterol) 200 Puffs/17365 Mcg Aers 2 Puffs INH Q6H PRN 08/31/16 Reported Bupropion Hcl Xl (Bupropion Hcl) 150 Mg Tab 1 Tab PO QAM 08/31/16 Reported Calcitonin-Stand[place] (Calcitonin [place]) 30 [place]/3.7 Ml Soln 1 [place] NA QPM 07/28/16 Reported Milk Of Magnesia (Magnesium Hydroxide) 30 Ml Susp 30 Ml PO DAILY PRN 07/28/16 Reported Breo Ellipta (Fluticasone Furoate-Vilanterol) 1 Inh Inh 1 Puff INH QAM 06/26/16 Reported Incruse Ellipta (Umeclidinium [place]) 62.5 Mcg/Inh Inh 1 Puff PO QAM 06/26/16 Reported Calcium Carbonate 1,250 Mg Tab 1,250 Mg PO AMHS 04/28/16 Reported Docusate Sodium 100 Mg Cap 100 Mg PO BID 04/14/16 Reported Trilafon (Perphenazine) 4 Mg Tab 12 Mg PO 0800 04/14/16 Reported Clozapine 100 Mg Tab 100 Mg PO TID 04/14/16 Reported D 1000 (Cholecalciferol) 1,000 Unit Tab 1,000 Unit PO QAM 03/15/16 Reported Econazole Nitrate Crm 1% 30 Gm (Econazole Nitrate) 90 Appln/30 Gm Cr 1 Appln TOP QID 01/17/16 Reported APPLY TO FEET Senokot S (Senna/Docusate Sodium) 1 Tab Tab 2 Tab PO 1300 01/17/16 Reported Flomax (Tamsulosin Hcl) 0.4 Mg Cap 0.4 Mg PO HS 08/27/15 Reported Singulair (Montelukast Sodium) 10 Mg Tab 10 Mg PO HS 08/20/15 Reported Folvite (Folic Acid) 1 Mg Tab 1 Mg PO QAM 08/09/15 Reported Prilosec (Omeprazole) 20 Mg Capcr 20 Mg PO QAM 07/01/15 Reported TAKE ONE HOUR BEFORE BREAKFAST Fenofibrate 48 Mg Tab 48 Mg PO QAM 12/19/14 Reported Escitalopram Oxalate 20 Mg Tab 1.5 Tab PO QAM 12/19/14 Reported Ferrous Sulfate 325 Mg Tab 325 Mg PO BIDM 10/11/13 Reported Vital Signs Weight (Kilograms): 80.45 Height (Feet): 5 Height (Inches): 4.5 Physical Exam General Appearance: WD/WN, no apparent distress Respiratory/Chest: Respiratory effort: no dyspnea Auscultation: breath sounds normal, CTA except as noted Cardiovascular: Apical Impulse: not displaced Heart Auscultation: RRR, normal S1, normal S2 Abdomen: Bowel Sounds: normal Inspection & Palpation: soft, non-distended Assessment and Plan 55 yo presenting for colonoscopy-history of COPD and ILD as well as ischemic colitis.
--- NOTE | 2016-09-21 09:28 | Discharge Instructions ---
Endoscopy Patient Instructions Date / Procedure(s) Performed Sep 21, 2016. Colonoscopy Allergy Information Coded Allergies: Haloperidol (Verified Allergy, Unknown, "MAKES ME GO INTO BLACKOUT", ) [place] (Verified Allergy, Unknown, "LEVEL CAN GET TOO HIGH", 09/21/16) Molindone (Verified Adverse Reaction, Intermediate, PT FEELS LIKE SHES "JUMPING OUT OF HER SKIN", 09/21/16) Morphine and Related (Verified Adverse Reaction, Intermediate, DROWSY, ) px was drowsy w/ pinpoint pupils and minimally responsive. stable VS. Following Morphine IR 15mg - 3 doses in prior 24 hours. Naloxone 0.4mg admin 3 times during that period. Fluphenazine (Verified Adverse Reaction, Unknown, confusion, 09/21/16) Discharge Date / Findings Sep 21, 2016. - Preparation of the colon was poor. - Atrophic and scarred mucosa in the sigmoid colon and in the descending colon. - Stool in the entire examined colon. - No specimens collected. - Repeat colonoscopy in 3 years Medication Instructions Stopped Medication(s): SELENE Provider Instructions Activity Restrictions - No exercising or heavy lifting for 24 hours. - Do not drink alcohol the day of the procedure. - Do not drive a car or operate machinery until the day after the procedure. - Do not make any important decisions or sign important papers in 24 hours after the procedure. Following Day: - Return to full activity which may include returning to work/school. Diet Start your diet with liquids and light foods (jello, soup, juice, toast). Then eat your usual diet if not nauseated. Treatment For Common After Affects For mild abdominal pain, bloating, or excessive gas: - Rest - Eat lightly - Lie on right side Follow-Up Information Follow-up with as scheduled Anesthesia Information What You Should Know You have had a procedure that required some medicine to reduce anxiety and discomfort. This treatment is called moderate sedation. After receiving the treatment, you may be sleepy, but you will be able to breathe on your own. The effects of the treatment may last for several hours. Follow these instructions along with Activity/Diet recommendations noted above: * Do NOT do anything where dizziness or clumsiness would be dangerous. * Rest quietly at home today, then you can be up and about tomorrow. * Have a responsible person stay with you the rest of today. * You may have had an I.V. today. If so, you may take the dressing off later today. Recommendations Call your doctor if: * Trouble breathing * Continuous vomiting for more than 24 hours * Temperature above 101 degrees * Severe abdominal pain or bloating * Pain not relieved by pain medicine ordered * There is increased drainage or redness from any incision * A large amount of rectal bleeding greater than 2-3 tablespoons. (If you had a polyp/s removed or have hemorrhoids, a small amount of blood - from the rectum is to be expected.) * You have any unanswered questions or concerns. IN THE EVENT OF A SERIOUS EMERGENCY, GO TO THE NEAREST EMERGENCY ROOM Your discharge instructions were prepared by provider Yakov Fuentes. Patient Instructions Signature Page Amelia Murray Patient (or Guardian) Signature/Date: I have read and understand the instructions given to me by my caregivers. Caregiver/RN/Doctor Signature/Date: The above-named patient and/or guardian has received patient instructions on this date. + Original Patient Signature Page (only) stays with chart. Please make copy for patient.
--- NOTE | 2016-09-21 09:29 | GI REPORT ---
Procedure Date: 09/21/2016 8:56 AM Procedure: Colonoscopy Indications: High risk colon cancer surveillance: Personal history of colonic polyps Medicines: General Anesthesia Complications: No immediate complications. Estimated blood loss: None. Estimated Blood Loss: Estimated blood loss: none. Procedure: Pre-Anesthesia Assessment: - Pre-Anesthesia Assessment: - Prior to the procedure, a History and Physical was performed, and patient medications, allergies and sensitivities were reviewed. The patient's tolerance of previous anesthesia was reviewed. Please see [facility] for complete details. - The risks and benefits of the procedure and the sedation options and risks were discussed with the patient. All questions were answered and informed consent was obtained. - Patient identification and proposed procedure were verified prior to the procedure by the physician and the nurse. The procedure was verified in the pre-procedure area in the procedure room. After obtaining informed consent, the endoscope was passed carefully and meticuously under direct vision and only advanced when the lumen was clearly identified, C02 insuflation was utilized throughout the entirity of the procedure. Throughout the procedure, the patient's blood pressure, pulse, and oxygen saturations were monitored continuously. After I obtained informed consent, the scope was passed under direct vision. Throughout the procedure, the patient's blood pressure, pulse, and oxygen saturations were monitored continuously. The scope was introduced through the anus and advanced to the cecum, identified by the appendiceal orifice, ileocecal valve and palpation. The colonoscopy was performed without difficulty. The patient tolerated the procedure well. The quality of the bowel preparation was poor. Findings: A localized area of moderately atrophic and scarred mucosa was found in the sigmoid colon and in the descending colon as previously described consistent with prior healed ischemic colitis. Stool was found in the entire colon limiting the quality of the examination. Diverticula were found in the sigmoid colon. Internal hemorrhoids were found during retroflexion. Impression: - Preparation of the colon was poor. - Atrophic and scarred mucosa in the sigmoid colon and in the descending colon. - Stool in the entire examined colon. - No specimens collected. Recommendation: - Discharge patient to home (with escort). - Return to referring physician as previously scheduled. - Repeat colonoscopy in 3 years for surveillance. Yakov Fuentes MD 09/21/2016 9:27:56 AM This report has been signed electronically. Note Initiated On: 09/21/2016 8:56 AM I attest to the content of the Intraoperative Record and orders documented therein, exceptions below
--- NOTE | 2016-09-21 09:36 | Anesthesiology Progress Note ---
Anesthesia Post Op Note Date & Time Sep 21, 2016 at 09:36 Vital Signs Pain Intensity: 0 Vital Signs Past 12 Hours Date Time Temp Pulse Resp B/P (MAP) Pulse Ox O2 Delivery O2 Flow Rate FiO2 09/21/16 09:19 82 20 125/81 (96) 100 Nasal Cannula 3 09/21/16 08:35 36.4 87 20 107/85 (92) 99 Nasal Cannula 3 Notes Mental Status: alert / awake / arousable, participated in evaluation Pt Amnestic to Procedure: Yes Nausea / Vomiting: adequately controlled Pain: adequately controlled Airway Patency, RR, SpO2: stable & adequate BP & HR: stable & adequate Hydration State: stable & adequate Anesthetic Complications: no major complications apparent
[2016-09-21 09:49] VITALS: BP 133/69; PULSE 78; O2SAT 100
== END | disposition home or self-care (01) ==
LOC: C.GI 07:45
PROVIDERS: ATTEND Internal Medicine
DX: Z12.11 Encounter for screening for malignant neoplasm of colon (principal); K55.9 Vascular disorder of intestine, unspecified; Z86.010 Personal history of colon polyps; K57.92 Diverticulitis of intestine, part unspecified, without perforation or abscess without bleeding; K64.8 Other hemorrhoids; Z90.710 Acquired absence of both cervix and uterus; Z98.1 Arthrodesis status; Z87.81 Personal history of (healed) traumatic fracture; Z80.0 Family history of malignant neoplasm of digestive organs; Z87.891 Personal history of nicotine dependence; J44.9 Chronic obstructive pulmonary disease, unspecified; I25.2 Old myocardial infarction; E78.5 Hyperlipidemia, unspecified; Z86.718 Personal history of other venous thrombosis and embolism; K21.9 Gastro-esophageal reflux disease without esophagitis; M19.90 Unspecified osteoarthritis, unspecified site; E11.9 Type 2 diabetes mellitus without complications; Z87.442 Personal history of urinary calculi; F41.9 Anxiety disorder, unspecified; F32.9 Major depressive disorder, single episode, unspecified; B19.20 Unspecified viral hepatitis C without hepatic coma; I95.9 Hypotension, unspecified

== ENCOUNTER 2016-10-13 15:52 | Inpatient (IN) | payer OTHER ==
[~2016-10-13] VITALS: Ht 162.6 cm; Wt 85.0 kg
[~2016-10-13 15:52] MED LIST changes: -ACET1TAB84 PO; -ATR25 PO; -ATV/1 PO; -BACL1TAB PO; -BUPR100T8 PO; -CALCTAB27 PO; -CEFU1TAB33 PO; -CEFU1TAB35 PO; -CFT250 PO; -CHOL1TAB53 PO; -CLOZ100T18 PO; -DOCU100C31 PO; -FERR325T PO; -FLUT0.15 NAE; -FLUT1INH INH; -FOLI1TAB7 PO; -GABA-112 PO; -GABA1CAP PO; -HYDR-4330 PO; -LEVO750T23 PO; -LIDOCAINE HCL 2% 2 ML VIAL (20MG/ML) ONE; -LXP/20 PO; -MCLIN; -MCRB100HP PO; -MIDAZOLAM HCL 1 MG/ML 2ML VIAL ONE; -MOML PO; -MONT1TAB3 PO; -NAPR1TAB9 PO; -OXYC-57 PO; -PERP1TAB11 PO; -PROPOFOL IV EMULSION 10 MG/ML 20 ML VIAL IV ONE; -RANI150T2 PO; -SENN-65 PO; -SODIUM CHLORIDE 0.9% 500ML 500 ML IV ONE; -SPCCR30 TOP; -TAMS0.4C38 PO; -TRC48 PO; -UMEC1INH PO; -VNTHFA/IN INH; -ZOLE5INJ INJ
[2016-10-13] MEDS ORDERED: SODIUM CHLORIDE 0.9% 1000ML 1,000 ML IV STA (16:06)
--- NOTE | 2016-10-13 16:21 | EMERGENCY ROOM VISIT NOTE ---
History Report prepared by Stanley: Diego Riley Under the Supervision of: Dr. Neto Ricketts M.D. First contact with patient: 16:02 Chief Complaint: LETHARGIC Stated Complaint: AMS, LETHARGIC/ POSS. MED OVERDOSE History of Present Illness The patient is a 55 year old female who presents to the Emergency Room with complaints of constant lethargy that started today. Patient is a poor historian. The patient states that she has been experiencing generalized body aches. She states that her pain caused her to take an extra dose of her medication. She reports that she usually takes Baclofen every 8 hours and Vicodin every day. The patient states that today she took Baclofen at 0930 and 1030 and Vicodin at 1200. Per nursing, the patient's sister was worried because after she started to become lethargic and fatigued. Nursing states that EMS checked her blood sugar, which was 100. The patient also reports that she has been experiencing nausea for the past two days, which she admits she is still experiencing. She states that she has been experiencing hip pain and lower extremity. She admits that she has been experiencing congestion because she has had a cold for a week. The patient states that she has been experiencing more yellow sputum with her cough than usual. She also reports experiencing abdominal bloating. The patient admits that she wears 2 L of oxygen during the day and 3 L at night. She states that she wears oxygen due to her history of COPD. The patient admits to thoracic surgery for her scoliosis and femur replacement surgery. She also admits that she currently wears boots because she injured herself when she tripped and fell over the carpet a month ago. She denies fevers, chills, vomiting, urinary symptoms, and suicidal ideations.. Source of History: patient Onset: today Position: other (global) Quality: other (fatigue) Timing: constant Associated Symptoms: + cough, + nausea, + fatigue, No fevers, No chills, No vomiting, No urinary symptoms Review of Systems See HPI for pertinent positives and negatives. A total of ten systems were reviewed and were otherwise negative. Past Medical & Surgical Medical Problems: (1) Accidental drug overdose (2) Alcohol abuse (3) Aspiration pneumonia (4) Back pain (5) Cataract (6) Chronic hepatitis C (7) Chronic obstructive lung disease (8) Chronic paranoid schizophrenia (9) Closed fracture of femur (10) COPD (chronic obstructive pulmonary disease) (11) Deep venous thrombosis (12) Depression (13) Drug abuse (14) Gastroesophageal reflux disease (15) Hepatitis C (16) Hypoxia (17) Hysterectomy (18) Opiate abuse, continuous (19) Osteomyelitis (20) Osteoporosis (21) Past Psych Meds (22) Psychosis (23) S/P ORIF (open reduction internal fixation) fracture (24) Schizoaffective disorder (25) Seizure (26) Sepsis (27) Suicidal ideation (28) Tinea (29) Tobacco user Surgical Problems: (1) H/O colonoscopy (2) History of hysterectomy (3) S/p thoracic spinal surgery (4) S/P tonsillectomy Family History FH: lung cancer GRANDMOTHER Thyroid disorder MOTHER SISTER Social History Smoking Status: Former Smoker Alcohol Use: none Drug Use: other Marital Status: single Housing Status: lives with family Occupation Status: disabled Current/Historical Medications Scheduled Azithromycin (Zithromax), 250 MG PO DIRECTED Bupropion Hcl (Bupropion Hcl Xl), 1 TAB PO QAM Calcitonin [place] (Calcitonin-[place]spect), 1 SPRAY NA QPM Calcium Carbonate (Calcium Carbonate), 1,250 MG PO AMHS Cholecalciferol (D 1000), 1,000 UNIT PO QAM Clozapine (Clozapine), 100 MG PO TID Docusate Sodium (Docusate Sodium), 100 MG PO BID Econazole Nitrate (Econazole Nitrate Crm 1% 30 Gm), 1 APPLN TOP QID Escitalopram Oxalate (Escitalopram Oxalate), 1.5 TAB PO QAM Fenofibrate (Fenofibrate), 48 MG PO QAM Ferrous Sulfate (Ferrous Sulfate), 325 MG PO BIDM Fluticasone Furoate-Vilanterol (Breo Ellipta), 1 PUFF INH QAM Fluticasone Propionate (Nasal) (Flonase Allergy Relief), 2 SPRAYS JOSE QAM Folic Acid (Folvite), 1 MG PO QAM Gabapentin (Neurontin), 400 MG PO BID Lorazepam (Ativan), 1 MG PO DIRECTED Montelukast Sodium (Singulair), 10 MG PO HS Omeprazole (Prilosec), 20 MG PO QAM Perphenazine (Trilafon), 12 MG PO 0800 Perphenazine (Trilafon), 8 MG PO 1300 Prednisone (Prednisone Tab), 20 MG PO DIRECTED Ranitidine HCl (Ranitidine HCl), 1 TAB PO BID Senna/Docusate Sod (Senokot S), 2 TAB PO 1300 Tamsulosin Hcl (Flomax), 0.4 MG PO HS Umeclidinium Telephone (Incruse Ellipta), 1 PUFF PO QAM Scheduled PRN Acetaminophen (Tylenol Arthritis Ext Rel), 650 MG PO Q8H PRN for Pain Albuterol Hfa (Ventolin Hfa), 2 PUFFS INH Q6H PRN for SOB/Wheezing Baclofen (Lioresal), 10 MG PO TID PRN for Muscle Spasms Hydrocodone-Acetaminophen (Lortab 5-325 mg), 1 TAB PO PRN PRN for AIN Magnesium Hydroxide (Milk Of Magnesia), 30 ML PO DAILY PRN for Constipation Naproxen (Aleve), 220 MG PO QAM PRN for Pain Allergies Coded Allergies: Haloperidol (Verified Allergy, Unknown, "MAKES ME GO INTO BLACKOUT", ) [place] (Verified Allergy, Unknown, "LEVEL CAN GET TOO HIGH", 10/13/16) Molindone (Verified Adverse Reaction, Intermediate, PT FEELS LIKE SHES "JUMPING OUT OF HER SKIN", 10/13/16) Morphine and Related (Verified Adverse Reaction, Intermediate, DROWSY, ) px was drowsy w/ pinpoint pupils and minimally responsive. stable VS. Following Morphine IR 15mg - 3 doses in prior 24 hours. Naloxone 0.4mg admin 3 times during that period. Fluphenazine (Verified Adverse Reaction, Unknown, confusion, 10/13/16) Physical Exam Vital Signs Date Time Temp Pulse Resp B/P (MAP) Pulse Ox O2 Delivery O2 Flow Rate FiO2 10/13/16 21:00 108 22 103/64 98 Nasal Cannula 3.0 10/13/16 19:34 116 16 119/89 93 Nasal Cannula 2.0 10/13/16 18:25 118 20 105/74 94 Nasal Cannula 2.0 10/13/16 16:10 98 10/13/16 16:04 36.7 98 20 106/68 98 Room Air Physical Exam GENERAL: Awake, alert, chronically ill appearing, in no distress HENT: Normocephalic, atraumatic. Oropharynx unremarkable. Dry mucous membranes. EYES: Normal conjunctiva. Sclera non-icteric. KRUPA NECK: Supple. No nuchal rigidity. FROM. No JVD. RESPIRATORY: Diminished breath sounds left lung field. CARDIAC: ST, normal rhythm. Extremities warm and well perfused. Pulses equal. ABDOMEN: Soft, non-distended. No tenderness to palpation. No rebound or guarding. No masses. RECTAL: Deferred. MUSCULOSKELETAL: Chest examination reveals no tenderness. The back is symmetrical on inspection without obvious abnormality. There is no CVA tenderness to palpation. No joint edema. LOWER EXTREMITIES: Calves are equal size bilaterally and non-tender. No edema. No discoloration. Bilateral feet in walking boots, no swelling or pain with palpation. NEURO: Normal sensorium. No sensory or motor deficits noted. Mildly slurred speech Cranial nerves 2-12 in tact. No cerebellar deficits. No rigidity or clonus. SKIN: No rash or jaundice noted. . Medical Decision & Procedures ER Provider Diagnostic Interpretation: X-ray: Per my interpretation, radiologist review. SINGLE VIEW CHEST CLINICAL HISTORY: Cough. FINDINGS: An AP, portable, upright chest radiograph is compared to chest x-ray and chest CT dated 07/28/2016. The examination is degraded by portable technique and patient rotation. The cardiomediastinal silhouette is unremarkable. There is mild atherosclerotic calcification of the thoracic aorta. There are low lung volumes with evidence of chronic interstitial lung disease. Patchy airspace consolidation is seen in the right upper lobe which is new from prior studies. Airspace opacities in the left mid to lower lung are similar to previous. No large pleural effusion or pneumothorax is seen. The skeletal structures are osteopenic. Degenerative and postoperative change with spinal rods is noted in the thoracic spine. IMPRESSION: 1. Low lung volumes with evidence of chronic interstitial lung disease. 2. Patchy airspace consolidation in the right upper lobe is new from 07/28/2016 and likely represents superimposed pneumonia. Clinical correlation will be required and radiographic follow-up to resolution is recommended. Electronically signed by: Hubert Ferreira M.D. 10/13/2016 4:37 PM Dictated Date/Time: 10/13/2016 4:35 PM Laboratory Results 10/13/16 16:20 Red Blood Count 4.61, Mean Corpuscular Volume 92.0, Mean Corpuscular Hemoglobin 31.0, Mean Corpuscular Hemoglobin Concent 33.7, Mean Platelet Volume 10.7, Neutrophils (%) (Auto) 78.5, Lymphocytes (%) (Auto) 9.8, Monocytes (%) (Auto) 11.0, Eosinophils (%) (Auto) 0.1, Basophils (%) (Auto) 0.1, Neutrophils # (Auto ) 17.18, Lymphocytes # (Auto) 2.15, Monocytes # (Auto) 2.40, Eosinophils # (Auto ) 0.02, Basophils # (Auto) 0.02 10/13/16 16:20 Test 10/13/16 16:20 10/13/16 17:19 10/13/16 17:30 10/13/16 20:44 White Blood Count 21.89 K/uL (4.8-10.8) Red Blood Count 4.61 M/uL (4.2-5.4) Hemoglobin 14.3 g/dL (12.0-16.0) Hematocrit 42.4 % (37-47) Mean Corpuscular Volume 92.0 fL (80-100) Mean Corpuscular Hemoglobin 31.0 pg (25-34) Mean Corpuscular Hemoglobin Concent 33.7 g/dl (32-36) Platelet Count 196 K/uL (130-400) Mean Platelet Volume 10.7 fL (7.4-10.4) Neutrophils (%) (Auto) 78.5 % Lymphocytes (%) (Auto) 9.8 % Monocytes (%) (Auto) 11.0 % Eosinophils (%) (Auto) 0.1 % Basophils (%) (Auto) 0.1 % Neutrophils # (Auto) 17.18 K/uL (1.4-6.5) Lymphocytes # (Auto) 2.15 K/uL (1.2-3.4) Monocytes # (Auto) 2.40 K/uL (0.11-0.59) Eosinophils # (Auto) 0.02 K/uL (0-0.5) Basophils # (Auto) 0.02 K/uL (0-0.2) RDW Standard Deviation 51.7 fL (36.4-46.3) RDW Coefficient of Variation 15.3 % (11.5-14.5) Immature Granulocyte % (Auto) 0.5 % Immature Granulocyte # (Auto) 0.12 K/uL (0.00-0.02) Anion Gap 6.0 mmol/L (3-11) Est Creatinine Clear Calc Drug Dose 60.3 ml/min Estimated GFR () 65.0 Estimated GFR (Non- 56.1 BUN/Creatinine Ratio 23.1 (10-20) Calcium Level 9.2 mg/dl (8.5-10.1) Salicylates Level < 1.7 mg/dl (2.8-20) Acetaminophen Level 2 ug/ml (10-30) Urine Color YELLOW Urine Appearance TURBID (CLEAR) Urine pH 5.5 (4.5-7.5) Urine Specific [place] 1.013 (1.000-1.030) Urine Protein 1+ (NEG) Urine Glucose (UA) NEG (NEG) Urine Ketones NEG (NEG) Urine Occult Blood 2+ (NEG) Urine Nitrite POS (NEG) Urine Bilirubin NEG (NEG) Urine Urobilinogen NEG (NEG) Urine Leukocyte Esterase LARGE (NEG) Urine WBC (Auto) >30 /hpf (0-5) Urine RBC (Auto) 10-30 /hpf (0-4) Urine Hyaline Casts (Auto) 1-5 /lpf (0-5) Urine Epithelial Cells (Auto) >30 /lpf (0-5) Urine Bacteria (Auto) 1+ (NEG) Urine Pathogenic Casts /lpf (0) Urine Yeast (Auto) (NONE PRSENT) Urine Opiates Screen POS (NEG) Urine Methadone, Qualitative NEG (NEG) Urine Barbiturates NEG (NEG) Urine Phencyclidine (PCP) Level NEG (NEG) Ur Amphetamine/Methamphetamine NEG (NEG) MDMA (Ecstasy) Screen POS (NEG) Urine Benzodiazepines Screen NEG (NEG) Urine Cocaine Metabolite NEG (NEG) Urine Marijuana (THC) NEG (NEG) Lactic Acid Level 0.8 mmol/L (0.4-2.0) Magnesium Level 1.7 mg/dl (1.8-2.4) Total Bilirubin 0.6 mg/dl (0.2-1) Direct Bilirubin 0.3 mg/dl (0-0.2) Aspartate Amino Transf (AST/SGOT) 17 U/L (15-37) Alanine Aminotransferase (ALT/SGPT) 18 U/L (12-78) Alkaline Phosphatase 77 U/L (45-117) Ammonia 10.0 umol/L (11-32) Total Protein 6.9 gm/dl (6.4-8.2) Albumin 2.8 gm/dl (3.4-5.0) Ethyl Alcohol mg/dL < 3.0 mg/dl (0-3) Laboratory results reviewed by me Medications Administered Medications (Trade) Dose Ordered Sig/Janel Route Start Time Stop Time Status Last Admin Dose Admin Sodium Chloride 1,000 ml @ 999 mls/hr Q1H1M STAT IV 10/13/16 16:06 10/13/16 17:06 DC 10/13/16 17:40 999 MLS/HR Vancomycin HCl 2000 mg/Sodium Chloride 540 ml @ 200 mls/hr ONE STAT IV 10/13/16 17:42 10/13/16 20:23 DC 10/13/16 19:27 200 MLS/HR Cefepime HCl 2000 mg/Dextrose 122.6 ml @ 200 mls/hr NOW STAT IV 10/13/16 17:42 10/13/16 18:18 DC 10/13/16 18:25 200 MLS/HR Ketorolac Tromethamine (Toradol Inj) 30 mg NOW STAT IV 10/13/16 18:49 10/13/16 18:50 DC 10/13/16 19:31 30 MG Sodium Chloride 500 ml @ 500 mls/hr Q1H ONCE IV 10/13/16 20:15 10/13/16 22:25 DC 10/13/16 23:41 500 MLS/HR ECG Indication: toxicologic Rate (beats per minute): 103 Rhythm: sinus tachycardia Findings: no acute ischemic change, other (Normal axis and intervals) ED Course 1602: The patient was evaluated in room C03. A complete history and physical exam was performed. 1606: Ordered Sodium Chloride 1000 ml @ 999 mls/hr IV. 1742: Ordered Cefepime HCl 2000 mg/ Dextrose 122.6 ml @ 200 mls/hr IV, Vancomycin HCl 2000 mg/ Sodium Chloride 540 ml @ 200 mls/hr IV. Medical Decision I reviewed the patient's past medical history, medications, and the nursing notes as described above. The patient's presentation and history were concerning for polysubstance overdose, infection pulmonary v urinary, dehydration, electrolyte abnormality, stroke, and ICH. Upon review of patient's medical record, she is a 49 yo woman with a complicated past medical history of chronic spinal osteomyelitis determined to be nonoperative, COPD, interstitial lung disease, schizophrenia, chronic pain who presents to emergency department after her sister was concerned that she was too somnolent after taking extra of her baclofen per history of present illness. On arrival the patient is chronically ill-appearing but also appears drowsy with mild slurred speech but otherwise neurologically intact. The patient is afebrile with mild tachycardia in the low 100 but otherwise with stable vital signs. Patient reports she was she took extra baclofen because the chronic pain in her pelvis was worse. Additionally the patient reports fatigue and mild cough and chills over the past few days. w/u Notable for a leukocytosis to 21 which is up from recent which was within normal limits. Otherwise chemistry shows no AGaP. However considering the patient's complicated history of sepsis and chronic osteomyelitis lactate was sent as well as blood cultures. UA collected and pending, however on visual inspection likely source. Also patient's chest x-ray has a new right upper lobe infiltrate that is suspicious for pneumonia. Will cover with broad-spectrum antibiotics and plan for admission. Recent discharge summary from [facility] after transfer from [facility] for her presentation of sepsis in July describes evaluation by spine surgery who determined that the patient is not a surgical candidate. Moreover, there is question that the patient's osteomyelitis is not likely incurable, though there is hope that it may be responsive to long courses of antibiotics. Thus, during that admission patient was placed on and completed a 4 week course of vancomycin in the setting of cultures positive for MRSA. Given that the patient has been determined to be a nonoperative candidate, transferred to [facility] not necessary at this time. UA prelim results with LE and Nitrite+. Considering leukocytosis, and recent malaise CT chest and abd pelvis to further characterize infectious source. CT pending. I d/w the case with the medicine team who will admit the patient to the medicine service for further management. Medication Reconcilliation Current Medication List: was personally reviewed by me Blood Pressure Screening Patient's blood pressure: Normal blood pressure Impression Primary Impression: UTI (urinary tract infection) Additional Impressions: Pyelonephritis Accidental overdose Scribe Attestation The scribe's documentation has been prepared under my direction and personally reviewed by me in its entirety. I confirm that the note above accurately reflects all work, treatment, procedures, and medical decision making performed by me. Departure Information Referrals Naveed Adam III, M.D. (PCP) Patient Instructions My [facility] Problem Qualifiers
--- NOTE | 2016-10-13 16:39 | DIAGNOSTIC IMAGING REPORT ---
SINGLE VIEW CHEST CLINICAL HISTORY: Cough. FINDINGS: An AP, portable, upright chest radiograph is compared to chest x-ray and chest CT dated 07/28/2016. The examination is degraded by portable technique and patient rotation. The cardiomediastinal silhouette is unremarkable. There is mild atherosclerotic calcification of the thoracic aorta. There are low lung volumes with evidence of chronic interstitial lung disease. Patchy airspace consolidation is seen in the right upper lobe which is new from prior studies. Airspace opacities in the left mid to lower lung are similar to previous. No large pleural effusion or pneumothorax is seen. The skeletal structures are osteopenic. Degenerative and postoperative change with spinal rods is noted in the thoracic spine. IMPRESSION: 1. Low lung volumes with evidence of chronic interstitial lung disease. 2. Patchy airspace consolidation in the right upper lobe is new from 07/28/2016 and likely represents superimposed pneumonia. Clinical correlation will be required and radiographic follow-up to resolution is recommended. Electronically signed by: Hubert Ferreira M.D. 10/13/2016 4:37 PM Dictated Date/Time: 10/13/2016 4:35 PM
[2016-10-13 16:42] LABS: BASO % 0.1 %; BASO ABS # 0.02 K/uL (0-0.2); COMPLETE YES; EOS % 0.1 %; HEMATOCRIT 42.4 % (37-47); IG% 0.5 %; LYMPH % 9.8 %; LYMPH ABS # 2.15 K/uL (1.2-3.4); MEAN CORPUSCULAR HGB CONC 33.7 g/dl (32-36); MEAN PLATELET VOLUME 10.7 fL (7.4-10.4); NEUT % 78.5 %; PLATELET COUNT 196 K/uL (130-400); RED BLOOD COUNT 4.61 M/uL (4.2-5.4); WHITE BLOOD COUNT 21.89 K/uL (4.8-10.8)
[2016-10-13 17:14] LABS: BUN/CREATININE RATIO 23.1 (10-20); CALCIUM 9.2 mg/dl (8.5-10.1); CREATININE 1.1 mg/dl (0.60-1.20); POTASSIUM 3.6 mmol/L (3.5-5.1)
[2016-10-13 17:16] LABS: ACETAMINOPHEN 2 ug/ml (10-30)
[2016-10-13] MEDS ORDERED: VANCOMYCIN INJ 2,000 MG in SODIUM CHLORIDE 0.9% 500ML 500 ML IV STA (17:42)
[2016-10-13] MEDS ORDERED: CEFEPIME IV 2,000 MG in DEXTROSE 5% 100ML 100 ML IV STA (17:42)
[2016-10-13 18:09] LABS: URINE APPEARANCE TURBID (CLEAR); URINE BILIRUBIN NEG (NEG); URINE COLOR YELLOW; URINE EPITHELIAL CELL AUTO >30 /lpf (0-5); URINE NITRITE POS (NEG); URINE PH 5.5 (4.5-7.5); URINE SPECIFIC GRAVITY 1.013 (1.000-1.030); UROBILINOGEN NEG (NEG); ZZUR CULT IF INDIC CLEAN CATCH YES
[2016-10-13 18:12] LABS: MANUAL MICROSCOPIC REQUIRED? NO; REVIEW REQ? YES
[2016-10-13] MEDS ORDERED: HYDR-4330 PO (18:20)
[2016-10-13] MEDS ORDERED: OXYC-57 PO (18:20)
[2016-10-13] MEDS ORDERED: OPTIRAY 320 IV PRN (18:30)
[2016-10-13] MEDS ORDERED: KETOROLAC TROMETHAMINE 30 MG/ML VIAL IV STA (18:49)
--- NOTE | 2016-10-13 19:20 | DIAGNOSTIC IMAGING REPORT ---
ABD/PELVIS IV CONTRAST ONLY CLINICAL HISTORY: 55 years-old Female presenting with Abdominal pain. TECHNIQUE: Multidetector CT of the abdomen and pelvis was performed after the administration of intravenous contrast. IV contrast: 95 mL of Optiray 320. A dose lowering technique was used consistent with the principles of ALARA (as low as reasonably achievable). COMPARISON: 11/21/2015. CT DOSE (mGy.cm): The estimated cumulative dose is 790.66. FINDINGS: Lunchroom Monitor topogram: Bilateral dynamic fixation of the femoral necks and extensive thoracic posterior fusion. Lung bases: Redemonstration of extensive cystic bronchiectasis centrally within the lower lobes and lingula. Surrounding reticular opacities not significantly changed from prior. Normal heart size. Tip of a right internal jugular Mediport terminates in the right atrium. No pericardial or pleural effusion. Liver: Normal morphology. No liver lesion. Patent hepatic vasculature. Biliary: No intrahepatic or extrahepatic biliary ductal dilatation. Normal gallbladder. Pancreas: Normal. Spleen: Normal. Adrenal glands: Nodular thickening of the left adrenal gland, nonspecific and unchanged. Kidneys and ureters: Parenchymal hypovascularity anteriorly in the interpolar region and upper pole of the left kidney with associated swelling and perinephric inflammatory change. Trace anterior left perirenal fluid. Mild left urothelial thickening of the nondilated left renal collecting system and left ureter. A few punctate nonobstructing renal calculi versus parenchymal calcifications noted at the left upper pole. No focal parenchymal fluid collection to suggest abscess. Bladder: Circumferential bladder wall thickening. Pelvic organs: Uterus surgically absent. Bowel: Moderate stool burden throughout normal caliber colon. Normal appendix. No bowel obstruction. Peritoneal cavity: No free fluid or intraperitoneal gas. Vasculature: Atherosclerosis of the normal caliber abdominal aorta. IVC patent. Lymph nodes: Prominent lymph nodes at the level of the left renal hilum in the left periaortic region area and the largest measures 8 mm in short axis. Abdominal wall: Normal. Musculoskeletal: Bilateral dynamic screw fixation of the femoral necks with interlocking intramedullary nail. Degenerative changes of the lumbar spine. Extensive postsurgical and likely post traumatic changes of the lower thoracic vertebral bodies with bilateral posterior transpedicular screw and nina fixation. IMPRESSION: 1. Left pyelonephritis. No evidence of obstruction. Circumferential bladder wall thickening also likely represent cystitis. Correlate with urinalysis. No renal abscess. 2. Extensive bronchiectasis unchanged from prior. No superimposed infiltrate. Electronically signed by: Ayden Palacios M.D. 10/13/2016 7:19 PM Dictated Date/Time: 10/13/2016 7:09 PM
--- NOTE | 2016-10-13 19:21 | DIAGNOSTIC IMAGING REPORT ---
CT SCAN OF THE CHEST WITH IV CONTRAST CLINICAL HISTORY: Chronic back pain. COMPARISON STUDY: Chest CT scans dated 07/28/2016 and 11/02/2012. TECHNIQUE: Following the IV administration of 95 cc of Optiray 320, CT scanning of the chest was performed from the thoracic inlet to the upper abdomen. Images are reviewed in the axial, sagittal, and coronal planes. IV contrast was administered without complication. The examination is degraded by motion artifact. FINDINGS: Thyroid: Imaged portions of the thyroid gland are normal in size and attenuation. A 12 mm low-attenuation nodule is noted in the left lobe. Thoracic aorta: There is atherosclerotic calcification of the thoracic aorta, which is normal in caliber and demonstrates standard 3-vessel arch anatomy. No dissection is seen. A right internal jugular central venous infusion port is in place. Pulmonary vasculature: The pulmonary trunk is normal in caliber. There are no central filling defects identified to suggest pulmonary embolus. Note that this examination was not protocoled to evaluate for pulmonary emboli. Heart: The heart is normal in size and configuration, and without pericardial effusion. Lungs and pleural spaces: Chronic interstitial thickening and groundglass opacities throughout both lungs with subpleural reticulation are unchanged from prior studies. There is no evidence of superimposed airspace consolidation. Trace pleural effusions are noted The trachea and central airways are clear. Mediastinum: There is no mediastinal lymphadenopathy. Gifty: Prominent hilar lymph nodes measure up to 10 mm in short axis. Axillae: There is no axillary lymphadenopathy. Upper abdomen: There is a small hiatal hernia. Gallstones are identified. Hepatic steatosis is observed. Nodularity of the adrenal glands is similar to previous. Skeletal structures: The skeletal structures are osteopenic. There are healed right-sided rib fractures. Again seen are postoperative changes from laminectomy and posterior fusion from T6 through T11. Severe compression deformities of T8 and T10 are again noted, and there is fragmentation of the T11 and T12 vertebral bodies. There is associated hyperkyphosis. Significant paravertebral soft tissue thickening is again seen at this level. Mild compression deformities are again seen involving T3 and T4. Advanced arthritic change is noted in the left shoulder. IMPRESSION: 1. Chronic interstitial/fibrotic changes throughout both lungs with groundglass opacities are unchanged from 07/28/2016. 2. There is no airspace consolidation typical for pneumonia. Trace pleural effusions are identified. Superimposed right upper lobe consolidation suggested by chest x-ray was likely artifactual. 3. Extensive destructive and postoperative changes are again seen in the mid to lower thoracic spine. Paravertebral soft tissue thickening persists around the lower thoracic region, greatest at T11-T12. This is overall similar in appearance to the 07/28/[address] This likely represents pseudoarthrosis. Chronic osteomyelitis would be impossible to exclude. Clinical correlation will be essential. Electronically signed by: Hubert Ferreira M.D. 10/13/2016 7:19 PM Dictated Date/Time: 10/13/2016 7:08 PM
[2016-10-13] MEDS ORDERED: SODIUM CHLORIDE 0.9% 500ML 500 ML IV ONE (20:15)
[2016-10-13 21:20] LABS: MAGNESIUM 1.7 mg/dl (1.8-2.4)
[2016-10-13] MEDS ORDERED: NALOXONE HCL 0.4 MG/1 ML VIAL/CARP IV STA ×2 (21:31→22:21)
[2016-10-13] MEDS ORDERED: NALOXONE HCL 0.4 MG/1 ML VIAL/CARP ONE ×2 (21:32→21:43)
[2016-10-13 22:09] LABS: BENZODIAZEPINE, URINE NEG (NEG); COCAINE,URINE NEG (NEG); PHENCYCLIDINE, URINE NEG (NEG)
[2016-10-13] MEDS ORDERED: PIPERACILLIN/TAZOBACTAM 4.5 GM/100ML D5W IV STA (22:21)
[2016-10-13] MEDS ORDERED: ONDANSETRON INJ 2 MG/ML 2 ML VIAL IV PRN (22:30)
[2016-10-13] MEDS ORDERED: LEVALBUTEROL/IPRATROPIUM NEB INH PRN (22:30)
[2016-10-13 22:35] VITALS: Ht 162.6 cm; Wt 85.0 kg
[2016-10-13 23:06] VITALS: BP 91/69; PULSE 105; TEMP 36.8; O2SAT 96
[2016-10-13] MEDS ORDERED: MAGNESIUM SULFATE 1GM / D5W 1 GM in PREMIXED IN D5W 100 ML IV ONE (23:30)
[2016-10-14] VITALS (7 sets, daily range): BP systolic 85–110; BP diastolic 59–76; PULSE 87–105; TEMP 36–36.7; O2SAT 98–100
[2016-10-14] MEDS ORDERED: PIPERACILL/TAZOBAC IV 4.5 GM in DEXTROSE 5% 100ML IV ONE ×2
[2016-10-14] MEDS: NSS + 20MEQ KCL 1000ML 1,000 ML IV SCH ×3 (01:24→20:57)
[2016-10-14] MEDS ORDERED: PIPERACILL/TAZOBAC CONSULT ACTIVE PRN (02:00)
[2016-10-14] MEDS: ACETAMINOPHEN 325 MG TAB PO PRN ×2 (02:20→13:42)
[2016-10-14] MEDS ORDERED: HYDROCODONE/ACETAMOPHEN 5/325MG TAB PO PRN (02:45)
[2016-10-14] MEDS: KETOROLAC TROMETHAMINE 30 MG/ML VIAL IV PRN ×3 (03:21→20:24)
[2016-10-14] MEDS: PIPERACILL/TAZOBAC IV 3.375 GM in DEXTROSE 5% 100ML IV SCH ×3 (05:20→21:51)
[2016-10-14 06:57] LABS: BASO % 0.2 %; BASO ABS # 0.03 K/uL (0-0.2); COMPLETE YES; EOS % 0.6 %; IG% 0.2 %; LYMPH % 6.1 %; LYMPH ABS # 1.13 K/uL (1.2-3.4); MEAN CELL VOLUME 94.6 fL (80-100); MEAN CORPUSCULAR HEMOGLOBIN 31.1 pg (25-34); MEAN CORPUSCULAR HGB CONC 32.9 g/dl (32-36); MEAN PLATELET VOLUME 10.7 fL (7.4-10.4); MONO % 13.1 %; NEUT % 79.8 %; PLATELET COUNT 166 K/uL (130-400); WHITE BLOOD COUNT 18.53 K/uL (4.8-10.8)
[2016-10-14 07:05] LABS: INR 1.1 (0.9-1.1); PARTIAL THROMBOPLASTIN RATIO 1.2; PROTHROMBIN TIME (PATIENT) 11.4 SECONDS (9.0-12.0)
[2016-10-14 07:22] LABS: BUN/CREATININE RATIO 24.5 (10-20); CALCIUM 7.9 mg/dl (8.5-10.1); CREATININE 0.81 mg/dl (0.60-1.20); MAGNESIUM 2.3 mg/dl (1.8-2.4)
[2016-10-14] MEDS ORDERED: PERPHENAZINE 2 MG TAB PO SCH (08:00)
[2016-10-14] MEDS: ENOXAPARIN 40 MG/0.4 ML SYR SQ SCH (08:28)
[2016-10-14] MEDS: DOCUSATE SODIUM 100 MG CAP PO SCH ×2 (08:28→20:20)
[2016-10-14] MEDS: FENOFIBRATE 48 MG TAB PO SCH (08:28)
[2016-10-14] MEDS: PANTOprazole SOD 40 MG TAB PO SCH (08:28)
[2016-10-14] MEDS: ESCITALOPRAM OXALATE 10 MG TAB PO SCH (08:29)
[2016-10-14] MEDS: IBUPROFEN 200 MG TAB PO PRN ×2 (08:29→17:43)
[2016-10-14] MEDS: FERROUS SULFATE 325 MG TAB PO SCH ×2 (08:30→17:44)
[2016-10-14] MEDS: CLOZAPINE 100 MG TAB PO SCH ×3 (08:30→20:19)
[2016-10-14] MEDS: BuPROPion XL 150 MG TABCR PO SCH (08:31)
[2016-10-14] MEDS: GABAPENTIN 400 MG CAP PO SCH ×2 (08:31→20:19)
[2016-10-14] MEDS: FLUTICASONE PROPIONATE NA SPR 16 GM BTL NAE SCH (08:31)
[2016-10-14] MEDS: RANITIDINE HCL 150 MG TAB PO SCH ×2 (08:31→20:19)
[2016-10-14] MEDS: BACLOFEN 10 MG TAB PO PRN ×2 (09:11→15:13)
--- NOTE | 2016-10-14 09:45 | Progress Note ---
Internal Med Progress Note Date of Service: Oct 14, 2016. Provider Documentation: SUBJECTIVE: Seen and examined at bedside. More alert and Awake Admits to taking an extra dose of Hydrocodone for back pain Reports back pain is better today Denies chest pain, SOB, abd pain Afebrile On chronic Oxygen 2l at rest and 3l with activity Discussed with Sister in detail about patient's condition OBJECTIVE: Vital Signs-as noted below Physical Exam: Vitals signs as noted above General Appearance:Moderately built and nourished, no apparent distress Head: normocephalic, Atraumatic Eyes: normal inspection, EOMI, PERRL Neck: supple, Trachea midline Respiratory/Chest: Decreased breath sounds, CTA Cardiovascular: S1, S2, No murmur Abdomen/GI:Soft, Non tender, Bowel sounds present Spine: Chronic Spinal deformity and post op changes Extremities/Musculoskelatal:normal inspection, no edema, B/L LE in boots Neurologic/Psych:grossly no focal neurological deficits Skin: normal color, warm Lab data as noted below. ASSESSMENT & PLAN: Encephalopathy Likely multifactorial:Sepsis, medications Improved Monitor Acute Pyelonephritis: Continue Zosyn Follow Urine culture Hypomagnesemia: Resolved Monitor Chronic respiratory failure: Chronic Oxygen Dependency:2L at rest and 3l with activity H/O COPD/ILD CT chest: no signs of consolidation No signs of exacerbation Continue usual meds Chronic spinal osteomyelitis: H/O back surgery 2016 Currently Not an ideal candidate for surgery per records H/O MRSA: completed 6 weeks of Vancomycin recently On monthly Monitoring (ESR) due on 10/19. Last ESR:19. Follows with , [facility] Unchanged findings on CT from 2 months ago. IV Vancomycin as needed courses to be administered via px's Aport for any Indication of reactivated infection as per [facility] ID note. Past tobacco/alcohol abuse. No acute issues H/O Schizophrenia: Continue home meds Functional disability PT/OT DVT Px: Lovenox SQ Code Status: FULL CODE Disposition: To be determined surgical services asst consulted Vital Signs: Date Time Temp Pulse Resp B/P (MAP) Pulse Ox O2 Delivery O2 Flow Rate FiO2 10/14/16 16:15 Nasal Cannula 2.0 10/14/16 16:00 36.6 96 22 110/76 (87) 98 Nasal Cannula 2.0 10/14/16 15:05 36.7 105 20 100 Nasal Cannula 2.0 10/14/16 08:00 Nasal Cannula 2.0 10/14/16 07:18 36.0 93 20 95/62 (73) 100 Nasal Cannula 3.0 10/14/16 06:16 97 101/65 (77) 10/14/16 05:45 93 96/66 (76) 10/14/16 05:29 14 85/59 (68) 100 Nasal Cannula 3.0 91 10/13/16 23:06 36.8 105 18 91/69 (76) 96 Room Air 10/13/16 22:35 Nasal Cannula 3.0 10/13/16 22:05 102 20 98 10/13/16 22:00 97/65 10/13/16 21:44 96/68 10/13/16 21:35 106 22 98 10/13/16 21:00 108 22 103/64 98 Nasal Cannula 3.0 Lab Results: Results Past 24 Hours Test 10/13/16 20:44 10/14/16 06:06 Range/Units Magnesium Level 1.7 2.3 1.8-2.4 mg/dl Total Bilirubin 0.6 0.2-1 mg/dl Direct Bilirubin 0.3 0-0.2 mg/dl Aspartate Amino Transf (AST/SGOT) 17 15-37 U/L Alanine Aminotransferase (ALT/SGPT) 18 12-78 U/L Alkaline Phosphatase 77 45-117 U/L Ammonia 10.0 11-32 umol/L Total Protein 6.9 6.4-8.2 gm/dl Albumin 2.8 3.4-5.0 gm/dl Ethyl Alcohol mg/dL < 3.0 0-3 mg/dl White Blood Count 18.53 4.8-10.8 K/uL Red Blood Count 3.70 4.2-5.4 M/uL Hemoglobin 11.5 12.0-16.0 g/dL Hematocrit 35.0 37-47 % Mean Corpuscular Volume 94.6 80-100 fL Mean Corpuscular Hemoglobin 31.1 25-34 pg Mean Corpuscular Hemoglobin Concent 32.9 32-36 g/dl Platelet Count 166 130-400 K/uL Mean Platelet Volume 10.7 7.4-10.4 fL Neutrophils (%) (Auto) 79.8 % Lymphocytes (%) (Auto) 6.1 % Monocytes (%) (Auto) 13.1 % Eosinophils (%) (Auto) 0.6 % Basophils (%) (Auto) 0.2 % Neutrophils # (Auto) 14.79 1.4-6.5 K/uL Lymphocytes # (Auto) 1.13 1.2-3.4 K/uL Monocytes # (Auto) 2.42 0.11-0.59 K/uL Eosinophils # (Auto) 0.12 0-0.5 K/uL Basophils # (Auto) 0.03 0-0.2 K/uL RDW Standard Deviation 55.0 36.4-46.3 fL RDW Coefficient of Variation 15.7 11.5-14.5 % Immature Granulocyte % (Auto) 0.2 % Immature Granulocyte # (Auto) 0.04 0.00-0.02 K/uL Prothrombin Time 11.4 9.0-12.0 SECONDS Prothromb Time International Ratio 1.1 0.9-1.1 Activated Partial Thromboplast Time 32.2 21.0-31.0 SECONDS Partial Thromboplastin Ratio 1.2 Sodium Level 142 136-145 mmol/L Potassium Level 4.0 3.5-5.1 mmol/L Chloride Level 113 98-107 mmol/L Carbon Dioxide Level 26 21-32 mmol/L Anion Gap 3.0 3-11 mmol/L Blood Urea Nitrogen 20 7-18 mg/dl Creatinine 0.81 0.60-1.20 mg/dl Est Creatinine Clear Calc Drug Dose 81.8 ml/min Estimated GFR () 94.1 Estimated GFR (Non- 81.2 BUN/Creatinine Ratio 24.5 10-20 Random Glucose 100 70-99 mg/dl Calcium Level 7.9 8.5-10.1 mg/dl
[2016-10-14] MEDS: PERPHENAZINE 2 MG TAB PO SCH (12:42)
[2016-10-14] MEDS: DOCUSATE SODIUM/SENNA 50/8.6MG TAB PO SCH (12:43)
--- NOTE | 2016-10-14 13:07 | HISTORY & PHYSICAL EXAMINATION ---
DATE OF ADMISSION: 10/13/2016 PRIMARY CARE DOCTOR: Dr. Adam. CHIEF COMPLAINT: Lethargy as per records. HISTORY OF PRESENT ILLNESS: History obtained from records. Limited history from patient secondary to obtunded state. Medical history significant for chronic respiratory failure secondary to COPD, ILD on home O2, hx thoracic spinal cord fracture status post decompression surgery June 2015, chronic spinal osteomyelitis (MRSA) status post IV antibiotics, schizophrenia, HCV, chronic pain on narcotics, past tobacco and alcohol abuse per records, history of DVT on Coumadin, history of drug abuse in remission. 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 Patient sequently transferred to [facility] for sepsis secondary to UTI, recurrent thoracic disc phlegmon. Underwent CT guided aspiration phlegmon discitis, possibly for MRSA. Treated with IV ceftriaxone and 4 weeks of IV Vancomycin. Not a surgical candidate after evaluation by [facility] ortho neurosurgery but unlikely to have resolution of infection with antibiotics alone. ID was consulted; recommended MediPort placement for potential use for outpatient antibiotic courses for future recurrent infections. Patient and family informed that IV antibiotics will totally cure infection but px was not a surgical candidate per [facility] surgeons. Second opinion may be sought from [facility]. Hospital course complicated by episodes of unresponsiveness thought to be from oversedation with opioids. Patient discharged. Patient had a followup with [facility] ID service (Dr. Tate) about 2 weeks ago for chronic infected thoracic fixation. Plan was to continue monthly ESR blood work to determine need for outpatient courses of antibiotics. ID follow up visit next month. Patient was seen at PCPs office last week for ambulatory dysfunction, left thigh pain. Disposition unclear on EMR note. Yesterday patient told to be lethargic. Patient complaining of body aches, back pain- pain caused her to take extra dose of medication as per ER provider note. Complaints of some cough congestion productive of yellow sputum more than usual as per ER note. No unusual chest pain or shortness of breath. At the Emergency Room the patient received vancomycin, cefepime for sepsis. Patient currently obtunded. MEDICAL HISTORY: As above. SURGERIES: She has had back surgery, cataract surgery, hysterectomy, tonsillectomy. HOME MEDICATIONS: Include albuterol, azithromycin, calcitonin, cholecalciferol, Vicodin, lorazepam, magnesium hydroxide, prednisone, Tylenol arthritis, calcium plus D, calcium carbonate, naproxen, baclofen, clozapine, docusate sodium, fluticasone, folic acid, gabapentin, montelukast, omeprazole, ranitidine, Ellipta. ALLERGIES: HALDOL, LITHIUM, MOLINDONE, MORPHINE. FAMILY HISTORY: Heart disease. PERSONAL AND SOCIAL HISTORY: Past tobacco and alcohol abuse. On disability. REVIEW OF SYSTEMS: Could not be obtained. PHYSICAL EXAMINATION: VITAL SIGNS: Blood pressure was noted to be 106/68, pulse rate 108, RR 22, temperature 36.8, sats 96 on room air. GENERAL: Noted to be obtunded. No respiratory distress. Obese. Looks older for stated age, unkempt. SKIN: Normal color. HEAD, EYES, EARS, NOSE, AND THROAT: [place] palpebral conjunctivae. Dry mucosa. NECK: No JVD. supple CHEST: Decreased effort. HEART: Tachycardic. ABDOMEN: Soft. Some distention. EXTREMITIES: Minimal LE edema . No tenderness NEUROLOGIC: Obtunded. Miotic pupils. LABORATORY DATA: Hemoglobin was noted to be 14, hematocrit 42, white cell count 21.8, platelets 196. Sodium noted to be 138, potassium 3.6, chloride 105, CO2 27, BUN 25, creatinine 1. Glucose was noted to be 88. Lactic acid was normal. Chest x-ray showed possible superimposed pneumonia. CT of the chest chronic interstitial fibrotic changes with ground glass opacity change, no air space consolidation. Artifactual right upper lung consolidation on chest x-ray. Extensive destructive postop changes again seen mid lower thoracic spine. Prior vertebral soft tissue thickening persists in the lower thoracic region, greater T11-T12, similar in appearance to July [address] chronic osteomy[address]. [address] abdomen and pelvis left pyelonephritis, circumferential bladder wall thickening, UA nitrate positive, WBCs ASSESSMENT AND PLAN: 1. Encephalopathy multifactorial : Sepsis secondary to complicated Urinary tract infection. Home narcotics/neuro psychotropics contributory. 2. Chronic respiratory failure secondary to chronic obstructive pulmonary disease/interstitial lung disease on home O2. Pulmo-status at baseline 3. Chronic pain. 4. Chronic spinal osteomyelitis. hx MRSA sp tx History back surgery [address] from 2 months ago. PX not a surgical candidate as per [facility] specialists. IV Vancomycin as needed courses to be administered via px's Aport for any Indication of reactivated infection as per [facility] ID note. 5. Past tobacco/alcohol abuse. 6. Schizophrenia, on meds. 7. History DVT status post Coumadin 8. History of drug abuse in remission 9. HX HCV 10. Functional disability 11. History MRSA PLAN: GMF Cultures, Zosyn for now. Low threshold for adding Vancomycin if still febrile with Zosyn (RE hx MRSA). Hold home narcotics and neuro-psychotropics for sedation/confusion. PT/OT eval. DVT prophylaxis Lovenox subQ. FULL CODE. Called patient's sister Ariane Tello ([phone]) to obtain additional details. No answer. Will attempt to re-contact in the morning [facility]
[2016-10-14] MEDS ORDERED: NURSING VERBAL MED ORDER ONE (18:45)
[2016-10-14] MEDS ORDERED: MAGNESIUM HYDROXIDE SUSP 30 ML UDC PO ONE (19:00)
[2016-10-14] MEDS: TAMSULOSIN HCL 0.4 MG CAP PO SCH ×2 (21:52→22:00)
[2016-10-14] MEDS: MONTELUKAST SOD 10 MG TAB PO SCH ×2 (21:53→22:00)
--- NOTE | 2016-10-14 23:11 | DIAGNOSTIC IMAGING REPORT ---
CT OF THE HEAD WITHOUT CONTRAST CLINICAL HISTORY: Unresponsive. COMPARISON STUDY: Head CT April 04, 2016. CT DOSE: 1498.81 mGy.cm TECHNIQUE: Helical axial images of the head were obtained without IV contrast. Automated exposure control was utilized for the study. A dose lowering technique was utilized adhering to the principles of ALARA. FINDINGS: This study is mildly compromised by motion artifact. No acute intracranial hemorrhage, midline shift or mass effect is present. Ventricular system is stable. Basilar cisterns are patent. There are no extra-axial collections. Mild white matter hypodensity suggests small vessel disease. There are no findings to suggest acute dural sinus thrombosis or acute territorial infarct. There are no significant calvarial abnormalities. There are postsurgical findings within the sinuses. IMPRESSION: 1. No acute intracranial findings. 2. Study mildly compromised by motion artifact. Electronically signed by: Benjamin Summers M.D. 10/14/2016 11:10 PM Dictated Date/Time: 10/14/2016 11:06 PM
[2016-10-15] MEDS: ACETAMINOPHEN 325 MG TAB PO PRN ×2 (00:07→23:59)
[2016-10-15 00:19] VITALS: BP 104/73; PULSE 81; TEMP 36.5; O2SAT 100
--- NOTE | 2016-10-15 03:43 | Progress Note ---
Internal Med Progress Note Date of Service: Oct 15, 2016. Provider Documentation: Episode of minimal responsiveness around 10 PM last night as per RN despite vigorous arousal. Patient received gabapentin and Clozaril meds given together around 830 PM. Patient noted to be awake at CT. AP Decreased responsiveness secondary to neuropsychotropic meds. Patient currently awake. Will decrease maintenance gabapentin dose and schedule administration apart from other neuropsychotropic meds. Continue hold for sedation/confusion parameters for all neuropsychotropic meds. Will relay to AM provider. Vital Signs: Date Time Temp Pulse Resp B/P (MAP) Pulse Ox O2 Delivery O2 Flow Rate FiO2 10/15/16 08:00 Nasal Cannula 2.0 10/15/16 07:14 36.7 81 22 115/81 (92) 99 Nasal Cannula 2.0 10/15/16 00:19 36.5 81 20 104/73 (83) 100 Nasal Cannula 2.0 10/15/16 00:03 Nasal Cannula 2.0 10/14/16 22:10 36.6 87 18 109/74 (86) 98 Nasal Cannula 2.0 10/14/16 16:15 Nasal Cannula 2.0 10/14/16 16:00 36.6 96 22 110/76 (87) 98 Nasal Cannula 2.0 10/14/16 15:05 36.7 105 20 100 Nasal Cannula 2.0 Lab Results: Results Past 24 Hours Test 10/14/16 22:09 10/15/16 05:29 Range/Units Bedside Glucose 123 70-90 mg/dl White Blood Count 12.03 4.8-10.8 K/uL Red Blood Count 3.64 4.2-5.4 M/uL Hemoglobin 11.1 12.0-16.0 g/dL Hematocrit 34.3 37-47 % Mean Corpuscular Volume 94.2 80-100 fL Mean Corpuscular Hemoglobin 30.5 25-34 pg Mean Corpuscular Hemoglobin Concent 32.4 32-36 g/dl Platelet Count 174 130-400 K/uL Mean Platelet Volume 10.4 7.4-10.4 fL Neutrophils (%) (Auto) 67.3 % Lymphocytes (%) (Auto) 8.7 % Monocytes (%) (Auto) 19.8 % Eosinophils (%) (Auto) 3.7 % Basophils (%) (Auto) 0.2 % Neutrophils # (Auto) 8.09 1.4-6.5 K/uL Lymphocytes # (Auto) 1.05 1.2-3.4 K/uL Monocytes # (Auto) 2.38 0.11-0.59 K/uL Eosinophils # (Auto) 0.44 0-0.5 K/uL Basophils # (Auto) 0.03 0-0.2 K/uL RDW Standard Deviation 54.7 36.4-46.3 fL RDW Coefficient of Variation 15.7 11.5-14.5 % Immature Granulocyte % (Auto) 0.3 % Immature Granulocyte # (Auto) 0.04 0.00-0.02 K/uL Sodium Level 146 136-145 mmol/L Potassium Level 4.7 3.5-5.1 mmol/L Chloride Level 119 98-107 mmol/L Carbon Dioxide Level 26 21-32 mmol/L Anion Gap 1.0 3-11 mmol/L Blood Urea Nitrogen 18 7-18 mg/dl Creatinine 0.67 0.60-1.20 mg/dl Est Creatinine Clear Calc Drug Dose 98.9 ml/min Estimated GFR () 113.9 Estimated GFR (Non- 98.3 BUN/Creatinine Ratio 26.7 10-20 Random Glucose 96 70-99 mg/dl Calcium Level 8.2 8.5-10.1 mg/dl Magnesium Level 2.5 1.8-2.4 mg/dl
[2016-10-15 05:47] LABS: BASO % 0.2 %; BASO ABS # 0.03 K/uL (0-0.2); COMPLETE YES; EOS % 3.7 %; HEMATOCRIT 34.3 % (37-47); IG% 0.3 %; LYMPH % 8.7 %; LYMPH ABS # 1.05 K/uL (1.2-3.4); MEAN CELL VOLUME 94.2 fL (80-100); MEAN CORPUSCULAR HEMOGLOBIN 30.5 pg (25-34); MEAN CORPUSCULAR HGB CONC 32.4 g/dl (32-36); MEAN PLATELET VOLUME 10.4 fL (7.4-10.4); MONO % 19.8 %; NEUT % 67.3 %; PLATELET COUNT 174 K/uL (130-400); RED BLOOD COUNT 3.64 M/uL (4.2-5.4); WHITE BLOOD COUNT 12.03 K/uL (4.8-10.8)
[2016-10-15] MEDS: NSS + 20MEQ KCL 1000ML 1,000 ML IV SCH (05:59)
[2016-10-15] MEDS: PIPERACILL/TAZOBAC IV 3.375 GM in DEXTROSE 5% 100ML IV SCH ×3 (06:00→21:35)
[2016-10-15 06:19] LABS: BUN/CREATININE RATIO 26.7 (10-20); CALCIUM 8.2 mg/dl (8.5-10.1); CREATININE 0.67 mg/dl (0.60-1.20); MAGNESIUM 2.5 mg/dl (1.8-2.4); POTASSIUM 4.7 mmol/L (3.5-5.1)
[2016-10-15 07:14] VITALS: BP 115/81; PULSE 81; TEMP 36.7; O2SAT 99
[2016-10-15] MEDS ORDERED: GABAPENTIN 100 MG CAP PO SCH (08:00)
[2016-10-15] MEDS: FERROUS SULFATE 325 MG TAB PO SCH ×2 (08:20→16:53)
[2016-10-15] MEDS: ENOXAPARIN 40 MG/0.4 ML SYR SQ SCH (08:21)
[2016-10-15] MEDS: PERPHENAZINE 2 MG TAB PO SCH ×2 (08:21→13:14)
[2016-10-15] MEDS: GABAPENTIN 100 MG CAP PO SCH ×2 (08:21→22:46)
[2016-10-15] MEDS: BuPROPion XL 150 MG TABCR PO SCH (08:22)
[2016-10-15] MEDS: ESCITALOPRAM OXALATE 10 MG TAB PO SCH (08:22)
[2016-10-15] MEDS: FENOFIBRATE 48 MG TAB PO SCH (08:22)
[2016-10-15] MEDS: PANTOprazole SOD 40 MG TAB PO SCH (08:22)
[2016-10-15] MEDS: RANITIDINE HCL 150 MG TAB PO SCH ×2 (08:22→20:16)
[2016-10-15] MEDS: FLUTICASONE PROPIONATE NA SPR 16 GM BTL NAE SCH (08:23)
[2016-10-15] MEDS: CLOZAPINE 100 MG TAB PO SCH ×3 (08:23→20:16)
[2016-10-15] MEDS: DOCUSATE SODIUM 100 MG CAP PO SCH ×2 (08:23→20:16)
[2016-10-15] MEDS ORDERED: NURSING VERBAL MED ORDER ONE (09:00)
[2016-10-15] MEDS ORDERED: MAGNESIUM HYDROXIDE SUSP 30 ML UDC PO PRN (09:00)
[2016-10-15] MEDS ORDERED: POLYETHYLENE (MIRALAX) 17 GM PACK PO PRN (09:00)
[2016-10-15] MEDS: KETOROLAC TROMETHAMINE 30 MG/ML VIAL IV PRN ×2 (09:43→16:53)
[2016-10-15] MEDS: DOCUSATE SODIUM/SENNA 50/8.6MG TAB PO SCH (13:14)
[2016-10-15] MEDS: IBUPROFEN 200 MG TAB PO PRN (13:15)
[2016-10-15] MEDS: BACLOFEN 10 MG TAB PO PRN ×2 (14:12→21:35)
--- NOTE | 2016-10-15 14:28 | Progress Note ---
Internal Med Progress Note Date of Service: Oct 15, 2016. Provider Documentation: SUBJECTIVE: Seen and examined at bedside. YOVANIO X3 Has chronic back pain Mild SOB Denies chest pain, abd pain, dizziness On chronic Oxygen 2l at rest and 3l with activity OBJECTIVE: Vital Signs-as noted below Physical Exam: Vitals signs as noted above General Appearance:Moderately built and nourished, no apparent distress Head: normocephalic, Atraumatic Eyes: normal inspection, EOMI, PERRL Neck: supple, Trachea midline Respiratory/Chest: Decreased breath sounds, B/L expiratory wheezes Cardiovascular: S1, S2, No murmur Abdomen/GI:Soft, Non tender, Bowel sounds present Spine: Chronic Spinal deformity and post op changes Extremities/Musculoskelatal:normal inspection, no edema, B/L LE in boots Neurologic/Psych:grossly no focal neurological deficits Skin: normal color, warm Lab data as noted below. ASSESSMENT & PLAN: Encephalopathy Likely multifactorial:Sepsis, medications CT head:No acute intracranial findings Gabapentin dose adjusted secondary to excessive sedation Resolved Monitor Acute Pyelonephritis: Continue Zosyn >>>> Ceftriaxone in AM Urine culture:Klebsiella Pansensitive:pansensitive DC IVF Hypomagnesemia: Resolved Chronic respiratory failure: Chronic Oxygen Dependency:2L at rest and 3l with activity H/O COPD/ILD CT chest: no signs of consolidation No signs of exacerbation Continue usual meds Chronic spinal osteomyelitis: H/O back surgery 2016 Currently Not an ideal candidate for surgery per records H/O MRSA: completed 6 weeks of Vancomycin recently On monthly Monitoring (ESR) due on 10/19. Last ESR:19. Follows with , [facility] Unchanged findings on CT from 2 months ago. IV Vancomycin as needed courses to be administered via px's Aport for any Indication of reactivated infection as per [facility] ID note. Past tobacco/alcohol abuse. No acute issues H/O Schizophrenia: Continue home meds Functional disability PT/OT DVT Px: Lovenox SQ Code Status: FULL CODE Disposition: To be determined dean of student services consulted Vital Signs: Date Time Temp Pulse Resp B/P (MAP) Pulse Ox O2 Delivery O2 Flow Rate FiO2 10/15/16 14:43 78 18 97 Nasal Cannula 2.0 10/15/16 08:00 Nasal Cannula 2.0 10/15/16 07:14 36.7 81 22 115/81 (92) 99 Nasal Cannula 2.0 8/20/17 00:19 36.5 81 20 104/73 (83) 100 Nasal Cannula 2.0 10/15/16 00:03 Nasal Cannula 2.0 10/14/16 22:10 36.6 87 18 109/74 (86) 98 Nasal Cannula 2.0 10/14/16 16:15 Nasal Cannula 2.0 10/14/16 16:00 36.6 96 22 110/76 (87) 98 Nasal Cannula 2.0 10/14/16 15:05 36.7 105 20 100 Nasal Cannula 2.0 Lab Results: Results Past 24 Hours Test 10/14/16 22:09 10/15/16 05:29 Range/Units Bedside Glucose 123 70-90 mg/dl White Blood Count 12.03 4.8-10.8 K/uL Red Blood Count 3.64 4.2-5.4 M/uL Hemoglobin 11.1 12.0-16.0 g/dL Hematocrit 34.3 37-47 % Mean Corpuscular Volume 94.2 80-100 fL Mean Corpuscular Hemoglobin 30.5 25-34 pg Mean Corpuscular Hemoglobin Concent 32.4 32-36 g/dl Platelet Count 174 130-400 K/uL Mean Platelet Volume 10.4 7.4-10.4 fL Neutrophils (%) (Auto) 67.3 % Lymphocytes (%) (Auto) 8.7 % Monocytes (%) (Auto) 19.8 % Eosinophils (%) (Auto) 3.7 % Basophils (%) (Auto) 0.2 % Neutrophils # (Auto) 8.09 1.4-6.5 K/uL Lymphocytes # (Auto) 1.05 1.2-3.4 K/uL Monocytes # (Auto) 2.38 0.11-0.59 K/uL Eosinophils # (Auto) 0.44 0-0.5 K/uL Basophils # (Auto) 0.03 0-0.2 K/uL RDW Standard Deviation 54.7 36.4-46.3 fL RDW Coefficient of Variation 15.7 11.5-14.5 % Immature Granulocyte % (Auto) 0.3 % Immature Granulocyte # (Auto) 0.04 0.00-0.02 K/uL Sodium Level 146 136-145 mmol/L Potassium Level 4.7 3.5-5.1 mmol/L Chloride Level 119 98-107 mmol/L Carbon Dioxide Level 26 21-32 mmol/L Anion Gap 1.0 3-11 mmol/L Blood Urea Nitrogen 18 7-18 mg/dl Creatinine 0.67 0.60-1.20 mg/dl Est Creatinine Clear Calc Drug Dose 98.9 ml/min Estimated GFR () 113.9 Estimated GFR (Non- 98.3 BUN/Creatinine Ratio 26.7 10-20 Random Glucose 96 70-99 mg/dl Calcium Level 8.2 8.5-10.1 mg/dl Magnesium Level 2.5 1.8-2.4 mg/dl
[2016-10-15] MEDS: LEVALBUTEROL 1.25MG/0.5ML NEB INH PRN (14:42)
[2016-10-15] MEDS: IPRATROPIUM BROMIDE NEB SOLN 0.02% 2.5 ML VIAL INH PRN (14:42)
[2016-10-15 14:43] VITALS: PULSE 78; O2SAT 97
[2016-10-15 15:07] VITALS: BP 118/81; PULSE 90; TEMP 36.5; O2SAT 100
[2016-10-15] MEDS ORDERED: FUROSEMIDE INJ 20 MG in SYRINGE 0 ML IV ONE (15:30)
[2016-10-15] MEDS ORDERED: CEFTRIAXONE SOD INJ 1 GM in DEXTROSE 5% ADD-VANTAGE 50ML 50 ML IV SCH (16:00)
[2016-10-15] MEDS: MONTELUKAST SOD 10 MG TAB PO SCH (21:35)
[2016-10-15] MEDS: TAMSULOSIN HCL 0.4 MG CAP PO SCH (21:35)
[2016-10-15] MEDS ORDERED: SIMETHICONE 80 MG CHEW PO ONE (22:35)
[2016-10-15] MEDS ORDERED: SIMETHICONE 80 MG CHEW PO PRN (22:45)
[2016-10-16 00:18] VITALS: BP 134/82; PULSE 78; TEMP 36.9; O2SAT 99
[2016-10-16 06:10] LABS: BASO % 0.2 %; BASO ABS # 0.02 K/uL (0-0.2); COMPLETE YES; EOS % 4.2 %; HEMATOCRIT 32.7 % (37-47); IG% 0.4 %; LYMPH % 16.1 %; LYMPH ABS # 1.48 K/uL (1.2-3.4); MEAN CELL VOLUME 94.5 fL (80-100); MEAN CORPUSCULAR HEMOGLOBIN 30.6 pg (25-34); MEAN CORPUSCULAR HGB CONC 32.4 g/dl (32-36); MEAN PLATELET VOLUME 9.9 fL (7.4-10.4); MONO % 20.7 %; NEUT % 58.4 %; PLATELET COUNT 210 K/uL (130-400); RED BLOOD COUNT 3.46 M/uL (4.2-5.4); WHITE BLOOD COUNT 9.21 K/uL (4.8-10.8)
[2016-10-16 06:44] LABS: BUN/CREATININE RATIO 19.6 (10-20); CALCIUM 8.1 mg/dl (8.5-10.1); CREATININE 0.74 mg/dl (0.60-1.20); POTASSIUM 4.4 mmol/L (3.5-5.1)
[2016-10-16 07:18] VITALS: BP 121/80; PULSE 80; TEMP 36.9; O2SAT 100
[2016-10-16] MEDS: CEFTRIAXONE SOD INJ 1 GM in DEXTROSE 5% ADD-VANTAGE 50ML 50 ML IV SCH (09:13)
[2016-10-16] MEDS: FERROUS SULFATE 325 MG TAB PO SCH ×2 (09:13→16:07)
[2016-10-16] MEDS: PANTOprazole SOD 40 MG TAB PO SCH (09:13)
[2016-10-16] MEDS: BuPROPion XL 150 MG TABCR PO SCH (09:13)
[2016-10-16] MEDS: FENOFIBRATE 48 MG TAB PO SCH (09:13)
[2016-10-16] MEDS: ESCITALOPRAM OXALATE 10 MG TAB PO SCH (09:14)
[2016-10-16] MEDS: RANITIDINE HCL 150 MG TAB PO SCH ×2 (09:15→19:34)
[2016-10-16] MEDS: DOCUSATE SODIUM 100 MG CAP PO SCH ×2 (09:15→19:34)
[2016-10-16] MEDS: CLOZAPINE 100 MG TAB PO SCH ×3 (09:15→19:35)
[2016-10-16] MEDS: FLUTICASONE PROPIONATE NA SPR 16 GM BTL NAE SCH (09:16)
[2016-10-16] MEDS: ENOXAPARIN 40 MG/0.4 ML SYR SQ SCH (09:16)
[2016-10-16] MEDS: PERPHENAZINE 2 MG TAB PO SCH ×2 (09:16→13:11)
[2016-10-16] MEDS: GABAPENTIN 100 MG CAP PO SCH ×2 (10:37→20:49)
[2016-10-16] MEDS: DOCUSATE SODIUM/SENNA 50/8.6MG TAB PO SCH (13:10)
[2016-10-16] MEDS: BACLOFEN 10 MG TAB PO PRN (13:58)
--- NOTE | 2016-10-16 14:43 | Progress Note ---
Internal Med Progress Note Date of Service: Oct 16, 2016. Provider Documentation: SUBJECTIVE: Seen and examined at bedside. Feels well Has chronic back pain Denies chest pain, abd pain, dizziness On chronic Oxygen 2l at rest and 3l with activity OBJECTIVE: Vital Signs-as noted below Physical Exam: Vitals signs as noted above General Appearance:Moderately built and nourished, no apparent distress Head: normocephalic, Atraumatic Eyes: normal inspection, EOMI, PERRL Neck: supple, Trachea midline Respiratory/Chest: Decreased breath sounds, CTA Cardiovascular: S1, S2, No murmur Abdomen/GI:Soft, Non tender, Bowel sounds present Spine: Chronic Spinal deformity and post op changes Extremities/Musculoskelatal:normal inspection, no edema, B/L LE in boots Neurologic/Psych:grossly no focal neurological deficits Skin: normal color, warm Lab data as noted below. ASSESSMENT & PLAN: Encephalopathy Likely multifactorial:Sepsis, medications CT head:No acute intracranial findings Gabapentin dose adjusted secondary to excessive sedation Resolved Monitor Acute Pyelonephritis: Continue Zosyn #2 days >>>> Ceftriaxone day #1 Urine culture:Klebsiella Pansensitive:pansensitive S/P IV Fluids Hypomagnesemia: Resolved Chronic respiratory failure: Chronic Oxygen Dependency:2L at rest and 3l with activity H/O COPD/ILD CT chest: no signs of consolidation No signs of exacerbation Continue usual meds Chronic spinal osteomyelitis: H/O back surgery 2016 Currently Not an ideal candidate for surgery per records H/O MRSA: completed 6 weeks of Vancomycin recently On monthly Monitoring (ESR) due on 10/19. Last ESR:19. Follows with , [facility] Unchanged findings on CT from 2 months ago. IV Vancomycin as needed courses to be administered via px's Aport for any Indication of reactivated infection as per [facility] ID note. Past tobacco/alcohol abuse. No acute issues H/O Schizophrenia: Continue home meds Functional disability PT/OT DVT Px: Lovenox SQ Code Status: FULL CODE Disposition: To be determined adoption services manager consulted Plan to discharge home likely tomorrow Vital Signs: Date Time Temp Pulse Resp B/P (MAP) Pulse Ox O2 Delivery O2 Flow Rate FiO2 10/16/16 08:00 Nasal Cannula 2.0 10/16/16 07:18 36.9 80 20 121/80 (94) 100 Nasal Cannula 2.0 10/16/16 00:18 36.9 78 18 134/82 (99) 99 Nasal Cannula 2.0 10/15/16 23:00 Nasal Cannula 2.0 10/15/16 16:00 Nasal Cannula 2.0 10/15/16 15:07 36.5 90 20 118/81 (93) 100 Nasal Cannula 2.0 Lab Results: Results Past 24 Hours Test 10/16/16 05:43 Range/Units White Blood Count 9.21 4.8-10.8 K/uL Red Blood Count 3.46 4.2-5.4 M/uL Hemoglobin 10.6 12.0-16.0 g/dL Hematocrit 32.7 37-47 % Mean Corpuscular Volume 94.5 80-100 fL Mean Corpuscular Hemoglobin 30.6 25-34 pg Mean Corpuscular Hemoglobin Concent 32.4 32-36 g/dl Platelet Count 210 130-400 K/uL Mean Platelet Volume 9.9 7.4-10.4 fL Neutrophils (%) (Auto) 58.4 % Lymphocytes (%) (Auto) 16.1 % Monocytes (%) (Auto) 20.7 % Eosinophils (%) (Auto) 4.2 % Basophils (%) (Auto) 0.2 % Neutrophils # (Auto) 5.37 1.4-6.5 K/uL Lymphocytes # (Auto) 1.48 1.2-3.4 K/uL Monocytes # (Auto) 1.91 0.11-0.59 K/uL Eosinophils # (Auto) 0.39 0-0.5 K/uL Basophils # (Auto) 0.02 0-0.2 K/uL RDW Standard Deviation 54.6 36.4-46.3 fL RDW Coefficient of Variation 15.7 11.5-14.5 % Immature Granulocyte % (Auto) 0.4 % Immature Granulocyte # (Auto) 0.04 0.00-0.02 K/uL Sodium Level 147 136-145 mmol/L Potassium Level 4.4 3.5-5.1 mmol/L Chloride Level 112 98-107 mmol/L Carbon Dioxide Level 31 21-32 mmol/L Anion Gap 4.0 3-11 mmol/L Blood Urea Nitrogen 15 7-18 mg/dl Creatinine 0.74 0.60-1.20 mg/dl Est Creatinine Clear Calc Drug Dose 89.6 ml/min Estimated GFR () 105.0 Estimated GFR (Non- 90.6 BUN/Creatinine Ratio 19.6 10-20 Random Glucose 123 70-99 mg/dl Calcium Level 8.1 8.5-10.1 mg/dl
[2016-10-16 15:31] VITALS: BP 124/81; PULSE 82; TEMP 36.9; O2SAT 100
[2016-10-16] MEDS: ACETAMINOPHEN 325 MG TAB PO PRN (16:36)
[2016-10-16] MEDS: KETOROLAC TROMETHAMINE 30 MG/ML VIAL IV PRN (19:33)
[2016-10-16] MEDS: TAMSULOSIN HCL 0.4 MG CAP PO SCH (20:48)
[2016-10-16] MEDS: MONTELUKAST SOD 10 MG TAB PO SCH (20:49)
[2016-10-16] MEDS: LEVALBUTEROL 1.25MG/0.5ML NEB INH PRN (21:00)
[2016-10-16] MEDS: IPRATROPIUM BROMIDE NEB SOLN 0.02% 2.5 ML VIAL INH PRN (21:00)
[2016-10-16 21:01] VITALS: PULSE 68; O2SAT 98
[2016-10-17 00:21] VITALS: BP 118/77; PULSE 88; TEMP 36.6; O2SAT 98
[2016-10-17 06:02] LABS: BASO % 0.5 %; BASO ABS # 0.04 K/uL (0-0.2); COMPLETE YES; EOS % 5.5 %; HEMATOCRIT 36.4 % (37-47); IG% 0.6 %; LYMPH % 22.2 %; LYMPH ABS # 1.88 K/uL (1.2-3.4); MEAN CELL VOLUME 94.5 fL (80-100); MEAN CORPUSCULAR HEMOGLOBIN 29.9 pg (25-34); MEAN CORPUSCULAR HGB CONC 31.6 g/dl (32-36); MEAN PLATELET VOLUME 9.7 fL (7.4-10.4); MONO % 19.5 %; NEUT % 51.7 %; PLATELET COUNT 246 K/uL (130-400); RED BLOOD COUNT 3.85 M/uL (4.2-5.4); WHITE BLOOD COUNT 8.48 K/uL (4.8-10.8)
[2016-10-17 06:43] LABS: CALCIUM 8.7 mg/dl (8.5-10.1); CREATININE 0.62 mg/dl (0.60-1.20); POTASSIUM 4.3 mmol/L (3.5-5.1)
[2016-10-17 07:38] VITALS: BP 118/82; PULSE 84; TEMP 36.7; O2SAT 98
[2016-10-17 08:00] VITALS: O2SAT 98
[2016-10-17] MEDS: PERPHENAZINE 2 MG TAB PO SCH ×2 (08:29→13:26)
[2016-10-17] MEDS: ENOXAPARIN 40 MG/0.4 ML SYR SQ SCH (08:29)
[2016-10-17] MEDS: FLUTICASONE PROPIONATE NA SPR 16 GM BTL NAE SCH (08:29)
[2016-10-17] MEDS: FENOFIBRATE 48 MG TAB PO SCH (08:29)
[2016-10-17] MEDS: CLOZAPINE 100 MG TAB PO SCH ×3 (08:29→20:33)
[2016-10-17] MEDS: CEFTRIAXONE SOD INJ 1 GM in DEXTROSE 5% ADD-VANTAGE 50ML 50 ML IV SCH (08:29)
[2016-10-17] MEDS: FERROUS SULFATE 325 MG TAB PO SCH ×2 (08:30→16:25)
[2016-10-17] MEDS: DOCUSATE SODIUM 100 MG CAP PO SCH ×2 (08:30→20:32)
[2016-10-17] MEDS: ESCITALOPRAM OXALATE 10 MG TAB PO SCH (08:30)
[2016-10-17] MEDS: BuPROPion XL 150 MG TABCR PO SCH (08:31)
[2016-10-17] MEDS: PANTOprazole SOD 40 MG TAB PO SCH (08:31)
[2016-10-17] MEDS: RANITIDINE HCL 150 MG TAB PO SCH ×2 (08:31→20:32)
--- NOTE | 2016-10-17 09:38 | Progress Note ---
Internal Med Progress Note Date of Service: Oct 17, 2016. Provider Documentation: SUBJECTIVE: Seen and examined at bedside. Doing well Has chronic back pain Denies chest pain, abd pain, dizziness On chronic Oxygen 2l at rest and 3l with activity Discussed with family today Developed Urinary Retention today OBJECTIVE: Vital Signs-as noted below Physical Exam: Vitals signs as noted above General Appearance:Moderately built and nourished, no apparent distress Head: normocephalic, Atraumatic Eyes: normal inspection, EOMI, PERRL Neck: supple, Trachea midline Respiratory/Chest: Decreased breath sounds, CTA Cardiovascular: S1, S2, No murmur Abdomen/GI:Soft, Non tender, Bowel sounds present Spine: Chronic Spinal deformity and post op changes Extremities/Musculoskelatal:normal inspection, no edema, B/L LE in boots Neurologic/Psych:grossly no focal neurological deficits Skin: normal color, warm Lab data as noted below. ASSESSMENT & PLAN: Encephalopathy Likely multifactorial:Sepsis, medications CT head:No acute intracranial findings Gabapentin dose adjusted secondary to excessive sedation Resolved Monitor Acute Pyelonephritis: Continue Zosyn #2 days >>>> Ceftriaxone day #2 Urine culture:Klebsiella Pansensitive:pansensitive S/P IV Fluids Urinary Retention: Straight Cath PRN continue flomax Hypomagnesemia: Resolved Chronic respiratory failure: Chronic Oxygen Dependency:2L at rest and 3l with activity H/O COPD/ILD CT chest: no signs of consolidation, unchanged Bronchiectasis No signs of exacerbation Continue usual meds Chronic spinal osteomyelitis: H/O back surgery 2016 Currently Not an ideal candidate for surgery per records H/O MRSA: completed 6 weeks of Vancomycin recently On monthly Monitoring (ESR) due on 10/19. Last ESR:19. [place] , [facility] Unchanged findings on CT from 2 months ago. IV Vancomycin as needed courses to be administered via px's Aport for any Indication of reactivated infection as per [facility] [place]. Past tobacco/alcohol abuse. No acute issues H/O Schizophrenia: Continue home meds Chronic Pain: Plan to discharge on Gabapentin at reduced dose of 200mg BID Functional disability PT/OT DVT Px: Lovenox SQ Code Status: FULL CODE Disposition: Plan to discharge home tomorrow if stable Follow up with on 10/23/16 at 9:05AM Vital Signs: Date Time Temp Pulse Resp B/P (MAP) Pulse Ox O2 Delivery O2 Flow Rate FiO2 10/17/16 07:38 36.7 84 20 118/82 (94) 98 Nasal Cannula 3.0 10/17/16 00:21 36.6 88 20 118/77 (91) 98 Nasal Cannula 2.0 10/17/16 00:00 Nasal Cannula 3.0 10/16/16 21:01 68 18 98 Nasal Cannula 2.0 10/16/16 16:00 Nasal Cannula 2.0 10/16/16 15:31 36.9 82 20 124/81 (95) 100 Nasal Cannula 2.0 Lab Results: Results Past 24 Hours Test 10/17/16 05:23 Range/Units White Blood Count 8.48 4.8-10.8 K/uL Red Blood Count 3.85 4.2-5.4 M/uL Hemoglobin 11.5 12.0-16.0 g/dL Hematocrit 36.4 37-47 % Mean Corpuscular Volume 94.5 80-100 fL Mean Corpuscular Hemoglobin 29.9 25-34 pg Mean Corpuscular Hemoglobin Concent 31.6 32-36 g/dl Platelet Count 246 130-400 K/uL Mean Platelet Volume 9.7 7.4-10.4 fL Neutrophils (%) (Auto) 51.7 % Lymphocytes (%) (Auto) 22.2 % Monocytes (%) (Auto) 19.5 % Eosinophils (%) (Auto) 5.5 % Basophils (%) (Auto) 0.5 % Neutrophils # (Auto) 4.39 1.4-6.5 K/uL Lymphocytes # (Auto) 1.88 1.2-3.4 K/uL Monocytes # (Auto) 1.65 0.11-0.59 K/uL Eosinophils # (Auto) 0.47 0-0.5 K/uL Basophils # (Auto) 0.04 0-0.2 K/uL RDW Standard Deviation 55.2 36.4-46.3 fL RDW Coefficient of Variation 15.8 11.5-14.5 % Immature Granulocyte % (Auto) 0.6 % Immature Granulocyte # (Auto) 0.05 0.00-0.02 K/uL Sodium Level 144 136-145 mmol/L Potassium Level 4.3 3.5-5.1 mmol/L Chloride Level 109 98-107 mmol/L Carbon Dioxide Level 30 21-32 mmol/L Anion Gap 5.0 3-11 mmol/L Blood Urea Nitrogen 17 7-18 mg/dl Creatinine 0.62 0.60-1.20 mg/dl Est Creatinine Clear Calc Drug Dose 106.9 ml/min Estimated GFR () 116.8 Estimated GFR (Non- 100.8 BUN/Creatinine Ratio 27.0 10-20 Random Glucose 84 70-99 mg/dl Calcium Level 8.7 8.5-10.1 mg/dl
[2016-10-17] MEDS: GABAPENTIN 100 MG CAP PO SCH ×2 (09:58→21:55)
[2016-10-17] MEDS ORDERED: GABA1CAP5 PO (10:17)
[2016-10-17] MEDS ORDERED: CEFU1TAB33 PO (10:17)
--- NOTE | 2016-10-17 10:20 | Discharge Instructions ---
Discharge Instructions Date of Service Oct 17, 2016. Admission Reason for Admission: Sepsis Discharge Discharge Diagnosis / Problem: Sepsis, Pyelonephritis Discharge Goals Goal(s): Decrease discomfort, Improve function Activity Recommendations Activity Limitations: resume your previous activity Exercise/Sports Limitations: as tolerated Driving or Machine Use: Do not drive until cleared by your Primary care physician . Instructions / Follow-Up Instructions / Follow-Up Follow up with on 10/23/16 at 9:05AM Complete the antibiotic course as prescribed Seek immediate medical attention if your symptoms reoccur or worsen Current Hospital Diet Patient's current hospital diet: Regular Diet Discharge Diet Recommended Diet: Regular Diet Pending Studies Studies pending at discharge: no Medical Emergencies . Who to Call and When: Medical Emergencies: If at any time you feel your situation is an emergency, please call 911 immediately. . Non-Emergent Contact Non-Emergency issues call your: Primary Care Provider Call Non-Emergent contact if: you have a fever, your pain is not controlled, your pain is worsening, your pain is unusual for you, your pain is concerning you, you have any medication questions Seek immediate medical attention if your symptoms reoccur or worsen . . "Provider Documentation" section prepared by Rico Kc. . VTE Core Measure Inpt VTE Proph given/why not?: Enoxaparin (Lovenox)SQ
[2016-10-17] MEDS: BACLOFEN 10 MG TAB PO PRN ×2 (11:41→20:33)
[2016-10-17] MEDS: IBUPROFEN 200 MG TAB PO PRN ×2 (12:41→21:57)
[2016-10-17] MEDS: DOCUSATE SODIUM/SENNA 50/8.6MG TAB PO SCH (13:26)
[2016-10-17 16:54] VITALS: BP 124/82; PULSE 86; TEMP 36.4; O2SAT 92
[2016-10-17] MEDS: KETOROLAC TROMETHAMINE 30 MG/ML VIAL IV PRN (18:18)
[2016-10-17] MEDS: TAMSULOSIN HCL 0.4 MG CAP PO SCH (21:56)
[2016-10-17] MEDS: MONTELUKAST SOD 10 MG TAB PO SCH (21:58)
[2016-10-18] MEDS: KETOROLAC TROMETHAMINE 30 MG/ML VIAL IV PRN (00:35)
[2016-10-18 00:46] VITALS: BP 127/88; PULSE 76; TEMP 36.6; O2SAT 100
[2016-10-18 07:24] VITALS: BP 121/82; PULSE 81; TEMP 36.7; O2SAT 99
[2016-10-18] MEDS: DOCUSATE SODIUM 100 MG CAP PO SCH (08:39)
[2016-10-18] MEDS: ENOXAPARIN 40 MG/0.4 ML SYR SQ SCH (08:39)
[2016-10-18] MEDS: FENOFIBRATE 48 MG TAB PO SCH (08:39)
[2016-10-18] MEDS: BuPROPion XL 150 MG TABCR PO SCH (08:39)
[2016-10-18] MEDS: FLUTICASONE PROPIONATE NA SPR 16 GM BTL NAE SCH (08:39)
[2016-10-18] MEDS: FERROUS SULFATE 325 MG TAB PO SCH (08:39)
[2016-10-18] MEDS: CLOZAPINE 100 MG TAB PO SCH (08:39)
[2016-10-18] MEDS: RANITIDINE HCL 150 MG TAB PO SCH (08:39)
[2016-10-18] MEDS: PANTOprazole SOD 40 MG TAB PO SCH (08:39)
[2016-10-18] MEDS: ESCITALOPRAM OXALATE 10 MG TAB PO SCH (08:39)
[2016-10-18] MEDS: CEFTRIAXONE SOD INJ 1 GM in DEXTROSE 5% ADD-VANTAGE 50ML 50 ML IV SCH (08:39)
[2016-10-18] MEDS: PERPHENAZINE 2 MG TAB PO SCH (08:40)
[2016-10-18] MEDS: GABAPENTIN 100 MG CAP PO SCH (09:23)
[2016-10-18] MEDS: BACLOFEN 10 MG TAB PO PRN (10:25)
[2016-10-18 10:36] LABS: COD UR NEGATIVE NG/ML (CUTOFF=50); HYDROCOD UR 310 NG/ML (CUTOFF=50); HYDROMOR UR NEGATIVE NG/ML (CUTOFF=50); MORPHINE UR NEGATIVE NG/ML (CUTOFF=50); NORHYDROCODONE CONF UR 121 NG/ML (CUTOFF=50); OXYMORPH UR NEGATIVE NG/ML (CUTOFF=50)
[2016-10-18] MEDS ORDERED: hydrOXYzine HCL 25 MG TAB PO PRN (11:45)
--- NOTE | 2016-10-18 11:47 | Progress Note ---
Internal Med Progress Note Date of Service: Oct 18, 2016. Provider Documentation: SUBJECTIVE: The patient was seen and examined No more problem with urination Denies any other symptoms Wants to take Vistaril PRN at home.Used to take it before OBJECTIVE: Vital Signs-as noted below Exam: General-no distress at rest Eyes-normal ENT-normal Neck-supple Lungs-clear to auscultate bilaterally Heart-Regular,no murmur Abdomen-Benign,no masses,bowel sound present Extremities-no edema Neuro-AAOx3 Lab data as noted below. ASSESSMENT & PLAN: Encephalopathy-Resolved Likely multifactorial:Sepsis, medications CT head:No acute intracranial findings Gabapentin dose reduced No more symptoms Acute Pyelonephritis: Received Zosyn #2 days followed by Ceftriaxone day #2 Urine culture:Klebsiella Pansensitive Has had IV Fluids Urinary Retention: Straight Cath PRN continue Flomax Resolved Hypomagnesemia: Supplemented Normalized Chronic respiratory failure: Chronic Oxygen Dependency:2L at rest and 3l with activity H/O COPD/ILD CT chest: no signs of consolidation, unchanged Bronchiectasis No signs of exacerbation Continue usual meds Chronic spinal osteomyelitis: H/O back surgery 2016 Currently Not an ideal candidate for surgery per records H/O MRSA: completed 6 weeks of Vancomycin recently On monthly Monitoring (ESR) due on 10/19. Last ESR:19. Follows with , [facility] Unchanged findings on CT from 2 months ago. Needs to keep regular follow up with ID at [facility] Past tobacco/alcohol abuse. No acute issues H/O Schizophrenia: Continue home meds Chronic Pain: Plan to discharge on Gabapentin at reduced dose of 200mg BID Functional disability PT/OT DVT Px: Lovenox SQ Code Status: FULL CODE Disposition: Plan to discharge home today Follow up with on 10/23/16 at 9:05AM Vital Signs: Date Time Temp Pulse Resp B/P (MAP) Pulse Ox O2 Delivery O2 Flow Rate FiO2 10/18/16 08:00 Nasal Cannula 2.0 10/18/16 07:24 36.7 81 19 121/82 (95) 99 Nasal Cannula 3.0 10/18/16 00:46 36.6 76 18 127/88 (101) 100 3.0 10/18/16 00:00 Nasal Cannula 3.0 10/17/16 19:30 Nasal Cannula 2.0 10/17/16 16:54 36.4 86 17 124/82 (96) 92 Nasal Cannula 2.0
[2016-10-18] MEDS ORDERED: ATR25 PO (11:50)
[2016-10-18] MEDS ORDERED: CFT250 PO (12:01)
[2016-10-18] MEDS ORDERED: GABA1CAP PO (12:01)
[2016-10-18 12:33] VITALS: BP 121/82; PULSE 81; TEMP 36.7; O2SAT 99
[2016-10-18] MEDS: IBUPROFEN 200 MG TAB PO PRN (13:42)
--- NOTE | 2016-10-19 11:09 | Discharge Summary ---
Discharge Summary Date of Service Oct 19, 2016. Discharge Summary Admission Date: Oct 13, 2016 at 21:16 Discharge Date: Oct 17, 2016 Discharge Disposition: Home with services Principal Diagnosis: Sepsis, Pyelonephritis Secondary Diagnoses/Problems: Please see H&P and Hospital Progress note Medication Reconciliation New Medications: Cefuroxime Axetil (Cefuroxime Axetil) 250 Mg Tab 250 MG PO BID, #12 Gabapentin (Neurontin) 100 Mg Cap 2 CAP PO BID for 30 Days, #28 CAP 2 Refills Hydroxyzine HCl (Hydroxyzine HCl) 25 Mg Tab 12.5 MG PO TID PRN for anusea/Anxiety for 15 Days, #30 TAB Continued Medications: Acetaminophen (Tylenol Arthritis Ext Rel) 650 Mg Cplt 650 MG PO Q8H PRN for Pain Albuterol Hfa (Ventolin Hfa) 200 Puffs/91172 Mcg Aers 2 PUFFS INH Q6H PRN for SOB/Wheezing Baclofen (Lioresal) 10 Mg Tab 10 MG PO TID PRN for Muscle Spasms Bupropion Hcl (Bupropion Hcl Xl) 150 Mg Tab 1 TAB PO QAM Calcitonin [place] (Calcitonin-[place]) 30 [place]/3.7 Ml Soln 1 SPRAY NA QPM Calcium Carbonate (Calcium Carbonate) 1,250 Mg Tab 1250 MG PO AMHS Cholecalciferol (D 1000) 1,000 Unit Tab 1000 UNIT PO QAM Clozapine (Clozapine) 100 Mg Tab 100 MG PO TID, TAB Docusate Sodium (Docusate Sodium) 100 Mg Cap 100 MG PO BID, CAP Econazole Nitrate (Econazole Nitrate Crm 1% 30 Gm) 90 Appln/30 Gm Cr 1 APPLN TOP QID APPLY TO FEET Escitalopram Oxalate (Escitalopram Oxalate) 20 Mg Tab 1.5 TAB PO QAM Fenofibrate (Fenofibrate) 48 Mg Tab 48 MG PO QAM Ferrous Sulfate (Ferrous Sulfate) 325 Mg Tab 325 MG PO BIDM Fluticasone Furoate-Vilanterol (Breo Ellipta) 1 Inh Inh 1 PUFF INH QAM Fluticasone Propionate (Nasal) (Flonase Allergy Relief) 50 Mcg/Act Spr 2 SPRAYS JOSE QAM Folic Acid (Folvite) 1 Mg Tab 1 MG PO QAM, TAB Hydrocodone-Acetaminophen (Lortab 5-325 mg) 1 Tab Tab 1 TAB PO PRN PRN for AIN Lorazepam (Ativan) 1 Mg Tab 1 MG PO DIRECTED, TAB 0.5-1mg tab PRN only, max 2mg Magnesium Hydroxide (Milk Of Magnesia) 30 Ml Susp 30 ML PO DAILY PRN for Constipation Montelukast Sodium (Singulair) 10 Mg Tab 10 MG PO HS Naproxen (Aleve) 220 Mg Tab 220 MG PO QAM PRN for Pain Omeprazole (Prilosec) 20 Mg Capcr 20 MG PO QAM, CAP TAKE ONE HOUR BEFORE BREAKFAST Perphenazine (Trilafon) 4 Mg Tab 8 MG PO 0800 Perphenazine (Trilafon) 4 Mg Tab 8 MG PO 1300 Prednisone (Prednisone Tab) 20 Mg Tab 20 MG PO DIRECTED, TAB 2 tabs for 5 days, then 1 tab for 5 days Ranitidine HCl (Ranitidine HCl) 150 Mg Tab 1 TAB PO BID Senna/Docusate Sod (Senokot S) 1 Tab Tab 2 TAB PO 1300 Tamsulosin Hcl (Flomax) 0.4 Mg Cap 0.4 MG PO HS Umeclidinium [place] (Incruse Ellipta) 62.5 Mcg/Inh Inh 1 PUFF PO QAM Discontinued Medications: Azithromycin (Zithromax) 250 Mg Tab 250 MG PO DIRECTED, #4 TAB 2 today, then 1 each day for 4 days Admission Information HPI (per Admitting provider): DATE OF ADMISSION: 10/13/2016 PRIMARY CARE DOCTOR: Dr. Adam. CHIEF COMPLAINT: Lethargy as per records. HISTORY OF PRESENT ILLNESS: History obtained from records. Limited history from patient secondary to obtunded state. Medical history significant for chronic respiratory failure secondary to COPD, ILD on home O2, hx thoracic spinal cord fracture status post decompression surgery June 2015, chronic spinal osteomyelitis (MRSA) status post IV antibiotics, schizophrenia, HCV, chronic pain on narcotics, past tobacco and alcohol abuse per records, history of DVT on Coumadin, history of drug abuse in remission. 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 Patient sequently transferred to [facility] for sepsis secondary to UTI, recurrent thoracic disc phlegmon. Underwent CT guided aspiration phlegmon discitis, possibly for MRSA. Treated with IV ceftriaxone and 4 weeks of IV Vancomycin. Not a surgical candidate after evaluation by [facility] [place]o neuro[place] but unlikely to have resolution of infection with antibiotics alone. ID was consulted; recommended MediPort placement for potential use for outpatient antibiotic courses for future recurrent infections. Patient and family informed that IV antibiotics will totally cure infection but px was not a surgical candidate per [facility] surgeons. Second opinion may be sought from [facility]. Hospital course complicated by episodes of unresponsiveness thought to be from oversedation with opioids. Patient discharged. Patient had a followup with [facility] ID service (Dr. Tate) about 2 weeks ago for chronic infected thoracic fixation. Plan was to continue monthly ESR blood work to determine need for outpatient courses of antibiotics. ID follow up visit next month. Patient was seen at PCPs office last week for ambulatory dysfunction, left thigh pain. Disposition unclear on EMR note. Yesterday patient told to be lethargic. Patient complaining of body aches, back pain- pain caused her to take extra dose of medication as per ER provider note. Complaints of some cough congestion productive of yellow sputum more than usual as per ER note. No unusual chest pain or shortness of breath. At the Emergency Room the patient received vancomycin, cefepime for sepsis. Patient currently obtunded. MEDICAL HISTORY: As above. SURGERIES: She has had back surgery, cataract surgery, hysterectomy, tonsillectomy. HOME MEDICATIONS: Include albuterol, azithromycin, calcitonin, cholecalciferol, Vicodin, lorazepam, magnesium hydroxide, prednisone, Tylenol arthritis, calcium plus D, calcium carbonate, naproxen, baclofen, clozapine, docusate sodium, fluticasone, folic acid, gabapentin, montelukast, omeprazole, ranitidine, Ellipta. ALLERGIES: HALDOL, LITHIUM, MOLINDONE, MORPHINE. FAMILY HISTORY: Heart disease. PERSONAL AND SOCIAL HISTORY: Past tobacco and alcohol abuse. On disability. REVIEW OF SYSTEMS: Could not be obtained. PHYSICAL EXAMINATION: VITAL SIGNS: Blood pressure was noted to be 106/68, pulse rate 108, RR 22, temperature 36.8, sats 96 on room air. GENERAL: Noted to be obtunded. No respiratory distress. Obese. Looks older for stated age, unkempt. SKIN: Normal color. HEAD, EYES, EARS, NOSE, AND THROAT: [place] palpebral conjunctivae. Dry mucosa. NECK: No JVD. supple CHEST: Decreased effort. HEART: Tachycardic. ABDOMEN: Soft. Some distention. EXTREMITIES: Minimal LE edema . No tenderness NEUROLOGIC: Obtunded. Miotic pupils. LABORATORY DATA: Hemoglobin was noted to be 14, hematocrit 42, white cell count 21.8, platelets 196. Sodium noted to be 138, potassium 3.6, chloride 105, CO2 27, BUN 25, creatinine 1. Glucose was noted to be 88. Lactic acid was normal. Chest x-ray showed possible superimposed pneumonia. CT of the chest chronic interstitial fibrotic changes with ground glass opacity change, no air space consolidation. Artifactual right upper lung consolidation on chest x-ray. Extensive destructive postop changes again seen mid lower thoracic spine. Prior vertebral soft tissue thickening persists in the lower thoracic region, greater T11-T12, similar in appearance to July [address] osteomy[address] abdomen and pelvis left pyelonephritis, circumferential bladder wall thickening, UA nitrate positive, WBCs ASSESSMENT AND PLAN: 1. Encephalopathy multifactorial : Sepsis secondary to complicated Urinary tract infection. Home narcotics/neuro psychotropics contributory. 2. Chronic respiratory failure secondary to chronic obstructive pulmonary disease/interstitial lung disease on home O2. Pulmo-status at baseline 3. Chronic pain. 4. Chronic spinal osteomyelitis. hx MRSA sp tx History back surgery [address] from 2 months ago. PX not a surgical candidate as per [facility] specialists. IV Vancomycin as needed courses to be administered via px's Aport for any Indication of reactivated infection as per [facility] ID note. 5. Past tobacco/alcohol abuse. 6. Schizophrenia, on meds. 7. History DVT status post Coumadin 8. History of drug abuse in remission 9. HX HCV 10. Functional disability 11. History MRSA PLAN: GMF Cultures, Zosyn for now. Low threshold for adding Vancomycin if still febrile with Zosyn (RE hx MRSA). Hold home narcotics and neuro-psychotropics for sedation/confusion. PT/OT eval. DVT prophylaxis Lovenox subQ. FULL CODE. Called patient's sister Ariane Tello ([phone]) to obtain additional details. No answer. Will attempt to re-contact in the morning Hospital Course Encephalopathy-Resolved Likely multifactorial:Sepsis, medications CT head:No acute intracranial findings Gabapentin dose reduced No more symptoms Acute Pyelonephritis: Received Zosyn #2 days followed by Ceftriaxone day #2 Urine culture:Klebsiella Pansensitive Has had IV Fluids Urinary Retention: Straight Cath PRN continue Flomax Resolved Hypomagnesemia: Supplemented Normalized Chronic respiratory failure: Chronic Oxygen Dependency:2L at rest and 3l with activity H/O COPD/ILD CT chest: no signs of consolidation, unchanged Bronchiectasis No signs of exacerbation Continue usual meds Chronic spinal osteomyelitis: H/O back surgery 2016 Currently Not an ideal candidate for surgery per records H/O MRSA: completed 6 weeks of Vancomycin recently On monthly Monitoring (ESR) due on 10/19. Last ESR:19. Follows with Dr.Foltzer [facility] Unchanged findings on CT from 2 months ago. Needs to keep regular follow up with [facility] at [facility] Past tobacco/alcohol abuse. No acute issues H/O Schizophrenia: Continue home meds Chronic Pain: Plan to discharge on Gabapentin at reduced dose of 200mg BID Functional disability PT/OT DVT Px: Lovenox SQ Code Status: FULL CODE Disposition: Plan to discharge home today Follow up with on 10/23/16 at 9:05AM Total time spent on discharge = 35 minutes This includes examination of the patient, discharge planning, medication reconciliation, and communication with other providers. Discharge Instructions Date of Service Oct 17, 2016. Admission Reason for Admission: Sepsis Discharge Discharge Diagnosis / Problem: Sepsis, Pyelonephritis Discharge Goals Goal(s): Decrease discomfort, Improve function Activity Recommendations Activity Limitations: resume your previous activity Exercise/Sports Limitations: as tolerated Driving or Machine Use: Do not drive until cleared by your Primary care physician . Instructions / Follow-Up Instructions / Follow-Up Follow up with on 10/23/16 at 9:05AM Complete the antibiotic course as prescribed Seek immediate medical attention if your symptoms reoccur or worsen Current Hospital Diet Patient's current hospital diet: Regular Diet Discharge Diet Recommended Diet: Regular Diet Pending Studies Studies pending at discharge: no Medical Emergencies . Who to Call and When: Medical Emergencies: If at any time you feel your situation is an emergency, please call 911 immediately. . Non-Emergent Contact Non-Emergency issues call your: Primary Care Provider Call Non-Emergent contact if: you have a fever, your pain is not controlled, your pain is worsening, your pain is unusual for you, your pain is concerning you, you have any medication questions Seek immediate medical attention if your symptoms reoccur or worsen . . "Provider Documentation" section prepared by Rico K Vangala. . VTE Core Measure Inpt VTE Proph given/why not?: Enoxaparin (Lovenox)SQ <Electronically signed by Rico Kc MD> Additional Copies To Naveed Adam III, M.D.
[2016-11-26] MEDS ORDERED: CLOZ100T18 PO (06:09)
[2016-11-26] MEDS ORDERED: PERP1TAB11 PO ×2 (06:17→09:04)
[2016-11-26] MEDS ORDERED: UMEC1INH PO (06:19)
[2016-11-26] MEDS ORDERED: FLUT1INH INH (06:20)
[2016-11-26] MEDS ORDERED: DOCU100C31 PO (06:22)
[2016-11-26] MEDS ORDERED: MONT1TAB3 PO (08:47)
[2016-11-26] MEDS ORDERED: FLUT0.15 NAE (09:04)
[2016-11-26] MEDS ORDERED: BACL1TAB PO (09:04)
[2016-11-26] MEDS ORDERED: ACET1TAB84 PO (09:04)
[2016-11-26] MEDS ORDERED: NAPR1TAB9 PO (09:10)
[2016-11-26] MEDS ORDERED: VNTHFA/IN INH (10:53)
[2016-11-26] MEDS ORDERED: ATV/1 PO (10:56)
[2016-11-26] MEDS ORDERED: TAMS0.4C38 PO (11:38)
[2016-11-26] MEDS ORDERED: SENN-65 PO (12:13)
[2016-11-26] MEDS ORDERED: SPCCR30 TOP (12:13)
[2016-11-26] MEDS ORDERED: MCLIN (15:22)
[2016-11-26] MEDS ORDERED: MOML PO (15:22)
[2016-11-26] MEDS ORDERED: LXP/20 PO (17:03)
[2016-11-26] MEDS ORDERED: TRC48 PO (17:03)
[2016-11-26] MEDS ORDERED: FERR325T PO (18:03)
[2016-11-26] MEDS ORDERED: CHOL1TAB53 PO (18:12)
[2016-11-26] MEDS ORDERED: RANI150T2 PO (18:26)
[2016-12-08] MEDS ORDERED: LEVO750T23 PO (11:00)
== END 2016-10-18 13:49 | disposition home health service (06) | DRG 871 ==
LOC: EDBD 15:52 → C.EDC 15:53 → UNDOADMIN 21:16 → C.MS4W 21:16 → EDBEDREQ 21:40
PROVIDERS: ADMIT Family Medicine; ATTEND Internal Medicine
DX: A41.9 Sepsis, unspecified organism (principal); G92 Toxic encephalopathy; N39.0 Urinary tract infection, site not specified; M46.20 Osteomyelitis of vertebra, site unspecified; F20.0 Paranoid schizophrenia; J96.10 Chronic respiratory failure, unspecified whether with hypoxia or hypercapnia; N10 Acute pyelonephritis; B18.2 Chronic viral hepatitis C; J44.9 Chronic obstructive pulmonary disease, unspecified; K21.9 Gastro-esophageal reflux disease without esophagitis; M81.0 Age-related osteoporosis without current pathological fracture; G89.29 Other chronic pain; E83.42 Hypomagnesemia; Z90.710 Acquired absence of both cervix and uterus; Z87.891 Personal history of nicotine dependence

== ENCOUNTER → 2016-11-22 | Outpatient (CLI) | payer OTHER ==
[~2016-11-22] MED LIST changes: +ACET1TAB84 PO; +ATR25 PO; +ATV/1 PO; -AZIT250T PO; +BACL1TAB PO; +BUPR100T8 PO; +CALCTAB27 PO; +CEFU1TAB35 PO; +CFT250 PO; +CHOL1TAB53 PO; +CLOZ100T18 PO; +DOCU100C31 PO; +FERR325T PO; +FLUT0.15 NAE; +FLUT1INH INH; +FOLI1TAB7 PO; +GABA-112 PO; +GABA1CAP PO; -GABA1CAP5 PO; +HYDR-4330 PO; +LEVO750T23 PO; +LXP/20 PO; +MCLIN; +MCRB100HP PO; +MOML PO; +MONT1TAB3 PO; +NAPR1TAB9 PO; +PERP1TAB11 PO; +RANI150T2 PO; +SENN-65 PO; +SPCCR30 TOP; +TAMS0.4C38 PO; +TRC48 PO; +UMEC1INH PO; +VNTHFA/IN INH; +ZOLE5INJ INJ
== END | disposition home or self-care (01) ==
LOC: C.LABSPEC 17:27
PROVIDERS: ATTEND Nurse Practitioner Adult Health
DX: R33.9 Retention of urine, unspecified (principal); N39.0 Urinary tract infection, site not specified

== ENCOUNTER 2016-11-26 18:38 | Emergency (ER) | payer OTHER ==
[~2016-11-26] VITALS: Ht 162.6 cm; Wt 87.7 kg
[~2016-11-26 18:38] MED LIST changes: -BUPR100T8 PO; -CALCTAB27 PO; -CEFU1TAB35 PO; -FOLI1TAB7 PO; -GABA-112 PO; -LEVO750T23 PO; -MCRB100HP PO; -ZOLE5INJ INJ
[2016-11-26] MEDS ORDERED: ALBUT/IPRATROP 3MG/0.5MG NEB 3 ML VIAL INH STA (18:48)
[2016-11-26 18:59] VITALS: Ht 162.6 cm; Wt 87.7 kg
--- NOTE | 2016-11-26 19:09 | EMERGENCY ROOM VISIT NOTE ---
History Report prepared by Stanley: Ranjana Vizcaino Under the Supervision of: Dr. Isacc Salinas D.O. First contact with patient: 18:43 Stated Complaint: SOB History of Present Illness The patient is a 55 year old female who presents to the Emergency Room with complaints of constant shortness of breath for the past two hours. The patient woke up from a nap around 1700. She states that she woke up because she felt like she couldn't breathe. She reports shortness of breath, chest pain, and overall feeling "lousy." She felt like she was going to pass out. The patient called an ambulance. She is typically on 2L of O2 at all times for COPD and asthma. In the ambulance EMS increased her O2 to 4L and her symptoms improved. She rates her current pain as a 6/10 in severity. The patient is currently wearing two walking boots. She broke both of her feet in a fall occurring 3 months ago. She denies any fever, chills, cough, and swelling in her legs. Source of History: patient Onset: 2 hours [employer] Position: chest (respiratory) Symptom Intensity: 6/10 Quality: other (shortness of breath) Timing: constant Modifying Factors (Relieving): oxygen Associated Symptoms: + chest pain, No fevers, No chills, No cough Review of Systems See HPI for pertinent positives & negatives. A total of 10 systems reviewed and were otherwise negative. Past Medical & Surgical Medical Problems: (1) Accidental drug overdose (2) Alcohol abuse (3) Aspiration pneumonia (4) Back pain (5) Cataract (6) Chronic hepatitis C (7) Chronic obstructive lung disease (8) Chronic paranoid schizophrenia (9) Closed fracture of femur (10) COPD (chronic obstructive pulmonary disease) (11) Deep venous thrombosis (12) Depression (13) Drug abuse (14) Gastroesophageal reflux disease (15) Hepatitis C (16) Hypoxia (17) Hysterectomy (18) Opiate abuse, continuous (19) Osteomyelitis (20) Osteoporosis (21) Past Psych Meds (22) Psychosis (23) S/P ORIF (open reduction internal fixation) fracture (24) Schizoaffective disorder (25) Seizure (26) Sepsis (27) Suicidal ideation (28) Tinea (29) Tobacco user Surgical Problems: (1) H/O colonoscopy (2) History of hysterectomy (3) S/p thoracic spinal surgery (4) S/P tonsillectomy Family History FH: lung cancer GRANDMOTHER Thyroid disorder MOTHER SISTER Social History Smoking Status: Former Smoker Alcohol Use: none Drug Use: other Marital Status: single Housing Status: lives with family Occupation Status: disabled Current/Historical Medications Scheduled Bupropion (Wellbutrin Sr), 100 MG PO QAM Calcitonin [place] (Calcitonin-Luverne), 1 SPRAY NA QPM Cefuroxime Axetil (Cefuroxime Axetil), 500 MG PO BID Cholecalciferol (D 1000), 1,000 UNIT PO QAM Clozapine (Clozapine), 100 MG PO TID Docusate Sodium (Docusate Sodium), 100 MG PO BID Econazole Nitrate (Econazole Nitrate Crm 1% 30 Gm), 1 APPLN TOP QID Escitalopram Oxalate (Escitalopram Oxalate), 1.5 TAB PO QAM Fenofibrate (Fenofibrate), 48 MG PO QAM Ferrous Sulfate (Ferrous Sulfate), 325 MG PO BIDM Fluticasone Furoate-Vilanterol (Breo Ellipta), 1 PUFF INH QAM Fluticasone Propionate (Nasal) (Flonase Allergy Relief), 2 SPRAYS JOSE QAM Folic Acid (Folvite), 1 MG PO QAM Gabapentin (Neurontin), 2 CAP PO BID Lorazepam (Ativan), 1 MG PO DIRECTED Montelukast Sodium (Singulair), 10 MG PO HS Oyster Shell (Oysco 500), 500 MG PO BID Perphenazine (Trilafon), 8 MG PO QAM Perphenazine (Trilafon), 8 MG PO 1300 Prednisone (Prednisone Tab), 20 MG PO DIRECTED Ranitidine HCl (Ranitidine HCl), 1 TAB PO BID Senna/Docusate Sod (Senokot S), 2 TAB PO 1300 Tamsulosin Hcl (Flomax), 0.4 MG PO HS Umeclidinium [place] (Incruse Ellipta), 1 PUFF PO QAM Zoledronic Acid (Reclast), 1 DOSE INJ YEARLY Scheduled PRN Acetaminophen (Tylenol Arthritis Ext Rel), 650 MG PO Q8H PRN for Pain Albuterol Hfa (Ventolin Hfa), 2 PUFFS INH Q6H PRN for SOB/Wheezing Baclofen (Lioresal), 10 MG PO TID PRN for Muscle Spasms Magnesium Hydroxide (Milk Of Magnesia), 30 ML PO DAILY PRN for Constipation Naproxen (Aleve), 220 MG PO QAM PRN for Pain Allergies Coded Allergies: Haloperidol (Verified Allergy, Unknown, "MAKES ME GO INTO BLACKOUT", ) Hydroxyzine (Verified Allergy, Unknown, UNKNOWN, 11/26/16) INFO FROM [facility] (Verified Allergy, Unknown, "LEVEL CAN GET TOO HIGH", 10/13/16) Molindone (Verified Adverse Reaction, Intermediate, PT FEELS LIKE SHES "JUMPING OUT OF HER SKIN", 10/13/16) Morphine and Related (Verified Adverse Reaction, Intermediate, DROWSY, ) px was drowsy w/ pinpoint pupils and minimally responsive. stable VS. Following Morphine IR 15mg - 3 doses in prior 24 hours. Naloxone 0.4mg admin 3 times during that period. Fluphenazine (Verified Adverse Reaction, Unknown, confusion, 10/13/16) Physical Exam Vital Signs Date Time Temp Pulse Resp B/P (MAP) Pulse Ox O2 Delivery O2 Flow Rate FiO2 11/26/16 22:42 36.8 99 25 129/79 100 11/26/16 22:36 99 25 100 Nasal Cannula 2.0 11/26/16 22:31 129/79 11/26/16 22:26 122/76 11/26/16 21:06 101 17 98 Nasal Cannula 2.0 11/26/16 21:01 106/95 11/26/16 20:55 104 18 98 Nasal Cannula 2.0 11/26/16 20:30 117/85 11/26/16 20:25 105 20 98 Nasal Cannula 2.0 11/26/16 20:01 98/71 11/26/16 19:55 108 17 98 Nasal Cannula 2.0 11/26/16 19:32 98/78 11/26/16 19:25 114 24 100 Nasal Cannula 2.0 11/26/16 19:20 99/79 11/26/16 19:11 95 Nasal Cannula 2.0 11/26/16 19:11 95 Nasal Cannula 2.0 11/26/16 19:08 109 18 99/79 95 Nasal Cannula 2.0 11/26/16 19:01 109 11/26/16 18:52 109 22 111/75 95 Nasal Cannula 2.0 11/26/16 18:52 95 Nasal Cannula 2.0 11/26/16 18:46 111/75 Physical Exam GENERAL: Patient is awake, alert, and in no acute distress. Patient is resting comfortably and showing no signs of anxiety EYES: The conjunctivae are clear. The pupils are round and reactive. EARS, NOSE, MOUTH AND THROAT: The nose is without any evidence of any deformity. Mucous membranes are moist tongue is midline NECK: The neck is nontender and supple. RESPIRATORY: Normal respiratory effort is noted. Sounds diminished throughout with scattered rhonchi, no tachypnea or conversational dyspnea. CARDIOVASCULAR: Tachycardic rate and regular rhythm noted there no murmurs rubs or gallops normal S1 normal S2 GASTROINTESTINAL: The abdomen is soft. Bowel sounds are present in all quadrants. Abdomen is nontender MUSCULOSKELETAL/EXTREMITIES: There is no evidence of gross deformity full range of motion is noted in the hips and shoulders. There were walking boots on both lower extremities. SKIN: There is no obvious evidence of any rash. There are no petechiae, pallor or cyanosis noted. No pedal edema to palpation. NEUROLOGIC: Patient is awake alert and oriented x3 Medical Decision & Procedures ER Provider Diagnostic Interpretation: Radiology results as stated below per my review and radiologist interpretation: CHEST ONE VIEW PORTABLE HISTORY: 55 years-old Female EVALUATE RESPIRATORY DISTRESS.DYSPNEA acute respiratory distress. COMPARISON: Chest CT and chest radiograph 10/13/2016 TECHNIQUE: Portable upright AP view of the chest FINDINGS: Cardiac silhouette is within normal limits. There are persistent unchanged interstitial opacities of the right upper lobe and left perihilar midlung correlating with fibrotic changes and groundglass opacities seen on comparison chest CT. No pneumothorax or pleural effusion. Lungs are hypoinflated without new alveolar opacities identified. Cardiac silhouette is within normal limits. Right internal jugular Kqqzcg-h-Abto catheter is unchanged. Fusion hardware of the midthoracic spine is noted with convex left scoliotic curvature. Patient obesity noted. IMPRESSION: 1. Persistent patchy opacities of the right upper lobe and perihilar left lung corresponding to areas of chronic groundglass opacity and fibrotic change seen on comparison chest CT. 2. No new airspace opacities identified to suggest acute pneumonia. The above report was generated using voice recognition software. It may contain grammatical, syntax or spelling errors. Electronically signed by: Jeanmarie Sharp M.D. 11/26/2016 7:15 PM Dictated Date/Time: 11/26/2016 7:12 PM (CHEST FOR PE) ANGIO WITH CT DOSE: 395.94 mGy.cm HISTORY: 55 years-old Female presents with acute shortness of breath and acute respiratory distress TECHNIQUE: Multiple CTA images of the chest were obtained after the intravenous administration of 116 mL Optiray 320. Coronal and sagittal MIPS were obtained from the axial data set and were submitted for review. A dose lowering technique was utilized adhering to the principles of ALARA. COMPARISON: Chest radiograph of same day, CT chest 10/13/2016. FINDINGS: CTA: Heart is normal in size without pericardial effusion. Thoracic aorta is normal in course and caliber without dissection or aneurysm. There is mild atherosclerosis of the thoracic aorta. The imaged great vessels are patent. The pulmonary tree all tree is well-opacified to the level of the proximal subsegmental branches and demonstrates no focal fluid defects to suggest pulmonary thromboembolic disease. CT CHEST: Heterogeneous appearance of thyroid without dominant nodule. No bulky adenopathy by CT size criteria. No pneumothorax or pleural effusion. Persistent reticulation with traction bronchiectasis and groundglass opacities noted within the right upper lobe, lingula and left lower lobes. Areas of cystic parenchymal changes are also seen within these distributions without significant change from comparison. No lobar airspace consolidation seen to suggest acute pneumonia. Central airways are patent. Posterior interbody nina and screw fusion hardware of the lower thoracic spine redemonstrated extending from T6-T11. Chronic compression deformity of T8 and T10 with endplate irregularity and vertebral body sclerosis seen at multiple levels redemonstrated, notably at the T8-T12 levels. Findings are unchanged from comparison. No evidence of hardware complication. Paravertebral soft tissue thickening at these levels is also unchanged. IMPRESSION: 1. No acute aortic pathology or evidence of pulmonary thromboembolic disease. 2. No focal lobar airspace consolidation to suggest acute pneumonia. 3. Redemonstration of reticular and groundglass opacities with traction bronchiectasis involving the right upper lobe, left lower lobe and lingula compatible with interstitial lung disease, unchanged from comparison. 4. Posterior interbody nina and screw fusion at T6-T11 redemonstrated with multilevel endplate irregularity and compression deformities as above with persistent paravertebral soft tissue prominence notably at T11-T12. This appears unchanged from comparison and suggests chronic changes with pseudoarthrosis. Chronic osteomyelitis is thought less likely. The above report was generated using voice recognition software. It may contain grammatical, syntax or spelling errors. Electronically signed by: Jeanmarie Sharp M.D. 11/26/2016 10:20 PM Dictated Date/Time: 11/26/2016 10:03 PM Laboratory Results 11/26/16 18:59 Red Blood Count 4.43, Mean Corpuscular Volume 92.1, Mean Corpuscular Hemoglobin 28.7, Mean Corpuscular Hemoglobin Concent 31.1, Mean Platelet Volume 9.9, Neutrophils (%) (Auto) 68.7, Lymphocytes (%) (Auto) 19.0, Monocytes (%) (Auto) 8.3, Eosinophils (%) (Auto) 3.3, Basophils (%) (Auto) 0.4, Neutrophils # (Auto) 7.65, Lymphocytes # (Auto) 2.12, Monocytes # (Auto) 0.93, Eosinophils # (Auto) 0.37, Basophils # (Auto) 0.05 11/26/16 18:59 Test 11/26/16 18:59 11/26/16 19:20 White Blood Count 11.15 K/uL (4.8-10.8) Red Blood Count 4.43 M/uL (4.2-5.4) Hemoglobin 12.7 g/dL (12.0-16.0) Hematocrit 40.8 % (37-47) Mean Corpuscular Volume 92.1 fL (80-100) Mean Corpuscular Hemoglobin 28.7 pg (25-34) Mean Corpuscular Hemoglobin Concent 31.1 g/dl (32-36) Platelet Count 255 K/uL (130-400) Mean Platelet Volume 9.9 fL (7.4-10.4) Neutrophils (%) (Auto) 68.7 % Lymphocytes (%) (Auto) 19.0 % Monocytes (%) (Auto) 8.3 % Eosinophils (%) (Auto) 3.3 % Basophils (%) (Auto) 0.4 % Neutrophils # (Auto) 7.65 K/uL (1.4-6.5) Lymphocytes # (Auto) 2.12 K/uL (1.2-3.4) Monocytes # (Auto) 0.93 K/uL (0.11-0.59) Eosinophils # (Auto) 0.37 K/uL (0-0.5) Basophils # (Auto) 0.05 K/uL (0-0.2) RDW Standard Deviation 49.0 fL (36.4-46.3) RDW Coefficient of Variation 14.4 % (11.5-14.5) Immature Granulocyte % (Auto) 0.3 % Immature Granulocyte # (Auto) 0.03 K/uL (0.00-0.02) Prothrombin Time 10.6 SECONDS (9.0-12.0) Prothromb Time International Ratio 1.0 (0.9-1.1) Activated Partial Thromboplast Time 25.9 SECONDS (21.0-31.0) Partial Thromboplastin Ratio 1.0 D-Dimer 1080 ug/L FEU (0-500) Anion Gap 11.0 mmol/L (3-11) Est Creatinine Clear Calc Drug Dose 68.0 ml/min Estimated GFR () 73.8 Estimated GFR (Non- 63.7 BUN/Creatinine Ratio 20.1 (10-20) Calcium Level 8.6 mg/dl (8.5-10.1) Total Bilirubin 0.3 mg/dl (0.2-1) Aspartate Amino Transf (AST/SGOT) 35 U/L (15-37) Alanine Aminotransferase (ALT/SGPT) 36 U/L (12-78) Alkaline Phosphatase 65 U/L (45-117) Troponin I < 0.015 ng/ml (0-0.045) Pro-B-Type Natriuretic Peptide 38 pg/ml (0-900) Total Protein 7.3 gm/dl (6.4-8.2) Albumin 3.1 gm/dl (3.4-5.0) Globulin 4.2 gm/dl (2.5-4.0) Albumin/Globulin Ratio 0.7 (0.9-2) Urine Color YELLOW Urine Appearance CLEAR (CLEAR) Urine pH 6.0 (4.5-7.5) Urine Specific [place] 1.012 (1.000-1.030) Urine Protein NEG (NEG) Urine Glucose (UA) NEG (NEG) Urine Ketones NEG (NEG) Urine Occult Blood 2+ (NEG) Urine Nitrite NEG (NEG) Urine Bilirubin NEG (NEG) Urine Urobilinogen NEG (NEG) Urine Leukocyte Esterase MODERATE (NEG) Urine WBC (Auto) 1-5 /hpf (0-5) Urine RBC (Auto) 5-10 /hpf (0-4) Urine Hyaline Casts (Auto) 0 /lpf (0-5) Urine Epithelial Cells (Auto) 5-10 /lpf (0-5) Urine Bacteria (Auto) NEG (NEG) Urine Yeast (Auto) (NONE PRSENT) Laboratory results per my review. Medications Administered Medications (Trade) Dose Ordered Sig/Janel Route Start Time Stop Time Status Last Admin Dose Admin Albuterol/ Ipratropium (Duoneb) 3 ml NOW STAT INH 11/26/16 18:48 11/26/16 18:50 DC 11/26/16 19:10 3 ML Sodium Chloride 1,000 ml @ 999 mls/hr Q1H1M STAT IV 11/26/16 20:56 11/26/16 21:56 DC 11/26/16 21:02 999 MLS/HR ECG Indication: SOB/dyspnea Rate (beats per minute): 109 Rhythm: sinus tachycardia Findings: ST depression (diffuse), no ectopy Change: no significant change ED Course 184: The patient was evaluated in room B12B. A complete history and physical examination were performed. 184: Duoneb 3 ml INH 6: NSS 1000 ml @ 999 mls/hr IV 0: I reassessed the patient at this time. She is feeling better and resting comfortably. I discussed the results and treatment plan with the patient. I answered all pertaining questions that she had. She expressed understanding and verbalized agreement. The patient will be discharged home. Medical Decision Differential diagnosis: Etiologies such as infections, reactive airway disease, pneumonia, pneumothorax , COPD, CHF, cardiac ischemia, pulmonary embolism, musculoskeletal, gastrointestinal, as well as others were entertained. Nursing notes reviewed. The patient is a 55-year-old female who presented to the emergency department for evaluation of shortness of breath and cough. The patient has a known history of COPD. She was treated with bronchodilator therapy in the emergency department with significant improvement. She also has other comorbidities and I was concerned about other condition such as venous thromboembolic disease. The patient's d-dimer is elevated. This led to a CT the chest. No definite infiltrate and no definite pulmonary embolism was noted. I discussed the patient 's laboratory and radiographic studies with her. She was encouraged to rest and avoid any strenuous activity. She was encouraged to continue all medications as prescribed. She was also encouraged to follow-up with your family doctor soon as possible for further evaluation but return to the emergency apartment immediately if symptoms change worsen or the need arises. Medication Reconcilliation Current Medication List: was personally reviewed by me Blood Pressure Screening Patient's blood pressure: Normal blood pressure Impression Primary Impression: Shortness of breath Additional Impression: COPD exacerbation Scribe Attestation The scribe's documentation has been prepared under my direction and personally reviewed by me in its entirety. I confirm that the note above accurately reflects all work, treatment, procedures, and medical decision making performed by me. Departure Information Dispostion Home / Self-Care Referrals Naveed Adam III, M.D. (PCP) Forms HOME CARE DOCUMENTATION FORM, IMPORTANT VISIT INFORMATION, WORK / SCHOOL INSTRUCTIONS Patient Instructions COPD Dx, My [facility] Additional Instructions Continue all medications as prescribed. Rest and avoid any strenuous activity. Follow-up with your family tomorrow for reevaluation. Problem Qualifiers
[2016-11-26 19:11] VITALS: O2SAT 95
--- NOTE | 2016-11-26 19:17 | DIAGNOSTIC IMAGING REPORT ---
CHEST ONE VIEW PORTABLE HISTORY: 55 years-old Female EVALUATE RESPIRATORY DISTRESS.DYSPNEA acute respiratory distress. COMPARISON: Chest CT and chest radiograph 10/13/2016 TECHNIQUE: Portable upright AP view of the chest FINDINGS: Cardiac silhouette is within normal limits. There are persistent unchanged interstitial opacities of the right upper lobe and left perihilar midlung correlating with fibrotic changes and groundglass opacities seen on comparison chest CT. No pneumothorax or pleural effusion. Lungs are hypoinflated without new alveolar opacities identified. Cardiac silhouette is within normal limits. Right internal jugular Rbkecv-i-Lvcu catheter is unchanged. Fusion hardware of the midthoracic spine is noted with convex left scoliotic curvature. Patient obesity noted. IMPRESSION: 1. Persistent patchy opacities of the right upper lobe and perihilar left lung corresponding to areas of chronic groundglass opacity and fibrotic change seen on comparison chest CT. 2. No new airspace opacities identified to suggest acute pneumonia. The above report was generated using voice recognition software. It may contain grammatical, syntax or spelling errors. Electronically signed by: Jeanmarie Sharp M.D. 11/26/2016 7:15 PM Dictated Date/Time: 11/26/2016 7:12 PM
[2016-11-26 19:29] LABS: BASO % 0.4 %; BASO ABS # 0.05 K/uL (0-0.2); COMPLETE YES; EOS % 3.3 %; HEMATOCRIT 40.8 % (37-47); IG% 0.3 %; LYMPH ABS # 2.12 K/uL (1.2-3.4); MEAN CELL VOLUME 92.1 fL (80-100); MEAN CORPUSCULAR HEMOGLOBIN 28.7 pg (25-34); MEAN CORPUSCULAR HGB CONC 31.1 g/dl (32-36); MEAN PLATELET VOLUME 9.9 fL (7.4-10.4); MONO % 8.3 %; NEUT % 68.7 %; PLATELET COUNT 255 K/uL (130-400); RED BLOOD COUNT 4.43 M/uL (4.2-5.4); WHITE BLOOD COUNT 11.15 K/uL (4.8-10.8)
[2016-11-26 19:36] LABS: URINE APPEARANCE CLEAR (CLEAR); URINE BILIRUBIN NEG (NEG); URINE COLOR YELLOW; URINE NITRITE NEG (NEG); URINE SPECIFIC GRAVITY 1.012 (1.000-1.030); UROBILINOGEN NEG (NEG)
[2016-11-26 19:40] LABS: PROTHROMBIN TIME (PATIENT) 10.6 SECONDS (9.0-12.0)
[2016-11-26 19:41] LABS: MANUAL MICROSCOPIC REQUIRED? NO; REVIEW REQ? YES
[2016-11-26 19:47] LABS: ALT/SGPT 36 U/L (12-78); AST/SGOT 35 U/L (15-37); BLOOD UREA NITROGEN 20 mg/dl (7-18); BUN/CREATININE RATIO 20.1 (10-20); CALCIUM 8.6 mg/dl (8.5-10.1); CARBON DIOXIDE 24 mmol/L (21-32); CHLORIDE 101 mmol/L (98-107); CREATININE 0.99 mg/dl (0.60-1.20); GLUCOSE 168 mg/dl (70-99); POTASSIUM 3.8 mmol/L (3.5-5.1); SODIUM 136 mmol/L (136-145)
[2016-11-26 19:52] LABS: ALB/GLOB RATIO 0.7 (0.9-2); ALKALINE PHOSPHATASE 65 U/L (45-117)
[2016-11-26] MEDS ORDERED: BUPR100T8 PO (20:10)
[2016-11-26] MEDS ORDERED: CEFU1TAB35 PO (20:10)
[2016-11-26] MEDS ORDERED: ZOLE5INJ INJ (20:10)
[2016-11-26] MEDS ORDERED: CALCTAB27 PO (20:10)
[2016-11-26] MEDS ORDERED: SODIUM CHLORIDE 0.9% 1000ML 1,000 ML IV STA (20:56)
[2016-11-26] MEDS ORDERED: OPTIRAY 320 IV PRN (21:45)
--- NOTE | 2016-11-26 22:21 | DIAGNOSTIC IMAGING REPORT ---
(CHEST FOR PE) ANGIO WITH CT DOSE: 395.94 mGy.cm HISTORY: 55 years-old Female presents with acute shortness of breath and acute respiratory distress TECHNIQUE: Multiple CTA images of the chest were obtained after the intravenous administration of 116 mL Optiray 320. Coronal and sagittal MIPS were obtained from the axial data set and were submitted for review. A dose lowering technique was utilized adhering to the principles of ALARA. COMPARISON: Chest radiograph of same day, CT chest 10/13/2016. FINDINGS: CTA: Heart is normal in size without pericardial effusion. Thoracic aorta is normal in course and caliber without dissection or aneurysm. There is mild atherosclerosis of the thoracic aorta. The imaged great vessels are patent. The pulmonary tree all tree is well-opacified to the level of the proximal subsegmental branches and demonstrates no focal fluid defects to suggest pulmonary thromboembolic disease. CT CHEST: Heterogeneous appearance of thyroid without dominant nodule. No bulky adenopathy by CT size criteria. No pneumothorax or pleural effusion. Persistent reticulation with traction bronchiectasis and groundglass opacities noted within the right upper lobe, lingula and left lower lobes. Areas of cystic parenchymal changes are also seen within these distributions without significant change from comparison. No lobar airspace consolidation seen to suggest acute pneumonia. Central airways are patent. Posterior interbody nina and screw fusion hardware of the lower thoracic spine redemonstrated extending from T6-T11. Chronic compression deformity of T8 and T10 with endplate irregularity and vertebral body sclerosis seen at multiple levels redemonstrated, notably at the T8-T12 levels. Findings are unchanged from comparison. No evidence of hardware complication. Paravertebral soft tissue thickening at these levels is also unchanged. IMPRESSION: 1. No acute aortic pathology or evidence of pulmonary thromboembolic disease. 2. No focal lobar airspace consolidation to suggest acute pneumonia. 3. Redemonstration of reticular and groundglass opacities with traction bronchiectasis involving the right upper lobe, left lower lobe and lingula compatible with interstitial lung disease, unchanged from comparison. 4. Posterior interbody nina and screw fusion at T6-T11 redemonstrated with multilevel endplate irregularity and compression deformities as above with persistent paravertebral soft tissue prominence notably at T11-T12. This appears unchanged from comparison and suggests chronic changes with pseudoarthrosis. Chronic osteomyelitis is thought less likely. The above report was generated using voice recognition software. It may contain grammatical, syntax or spelling errors. Electronically signed by: Jeanmarie Sharp M.D. 11/26/2016 10:20 PM Dictated Date/Time: 11/26/2016 10:03 PM
[2016-11-26] MEDS ORDERED: FOLI1TAB7 PO (22:31)
[2016-11-26 22:42] VITALS: BP 129/79; PULSE 99; TEMP 36.8; O2SAT 100
== END 2016-11-26 22:45 | disposition home or self-care (01) ==
LOC: EDBD 18:38 → C.EDB 18:39
DX: R06.02 Shortness of breath (principal); J44.9 Chronic obstructive pulmonary disease, unspecified; F20.9 Schizophrenia, unspecified; F32.9 Major depressive disorder, single episode, unspecified; K21.9 Gastro-esophageal reflux disease without esophagitis; R09.02 Hypoxemia; M19.90 Unspecified osteoarthritis, unspecified site; F11.20 Opioid dependence, uncomplicated; Z87.891 Personal history of nicotine dependence

== ENCOUNTER 2016-12-01 18:40 | Emergency (ER) | payer OTHER ==
[~2016-12-01] VITALS: Ht 162.6 cm; Wt 84.0 kg
[~2016-12-01 18:40] MED LIST changes: -ATR25 PO; -BUPR150T5 PO; +CALCTAB27 PO; +CEFU1TAB35 PO; -CFT250 PO; +FOLI1TAB7 PO; -HYDR-4330 PO; -NF84 PO; -PRLSR20 PO; +ZOLE5INJ INJ
[2016-12-01 18:50] VITALS: TEMP 36.9; Ht 162.6 cm; Wt 84.0 kg
[2016-12-01 19:52] LABS: BASO % 0.4 %; BASO ABS # 0.04 K/uL (0-0.2); COMPLETE YES; EOS % 5.5 %; HEMATOCRIT 40.5 % (37-47); IG% 0.2 %; LYMPH ABS # 2.62 K/uL (1.2-3.4); MEAN CORPUSCULAR HEMOGLOBIN 30.3 pg (25-34); MEAN CORPUSCULAR HGB CONC 33.3 g/dl (32-36); MEAN PLATELET VOLUME 9.9 fL (7.4-10.4); MONO % 10.9 %; PLATELET COUNT 220 K/uL (130-400); RED BLOOD COUNT 4.45 M/uL (4.2-5.4); WHITE BLOOD COUNT 9.71 K/uL (4.8-10.8)
[2016-12-01 20:04] LABS: PROTHROMBIN TIME (PATIENT) 10.6 SECONDS (9.0-12.0)
[2016-12-01 20:11] LABS: BUN/CREATININE RATIO 21.6 (10-20); CALCIUM 9.6 mg/dl (8.5-10.1); CREATININE 0.87 mg/dl (0.60-1.20)
[2016-12-01 20:24] LABS: ACETAMINOPHEN < 2 ug/ml (10-30)
[2016-12-01] MEDS ORDERED: GABA-112 PO (20:47)
[2016-12-01] MEDS ORDERED: PERP1TAB11 PO (20:51)
[2016-12-01 20:53] LABS: BENZODIAZEPINE, URINE NEG (NEG); COCAINE,URINE NEG (NEG); PHENCYCLIDINE, URINE NEG (NEG)
--- NOTE | 2016-12-01 20:58 | DIAGNOSTIC IMAGING REPORT ---
CHEST 2 VIEWS ROUTINE CLINICAL HISTORY: 55 years-old Female presenting with sob eval for pna. TECHNIQUE: PA and lateral views of the chest were obtained. COMPARISON: 11/26/2016. FINDINGS: Right sided Mediport remains in place. Cardiac silhouette mildly prominent, unchanged. Stable slight interval decrease in groundglass and reticulonodular opacities in the right upper and left mid lung. Mildly low lung volumes unchanged. No large effusion or pneumothorax. Deformities of the right lateral ribs unchanged. Posterior fusion hardware again noted. Upper abdomen normal. IMPRESSION: 1. Stable to slight interval decrease in bilateral pulmonary opacities. Electronically signed by: Ayden Palaicos M.D. 12/01/2016 8:57 PM Dictated Date/Time: 12/01/2016 8:56 PM
[2016-12-01] MEDS ORDERED: CLOZAPINE 100 MG TAB PO STA (23:10)
[2016-12-01] MEDS ORDERED: BACLOFEN 10 MG TAB PO STA (23:10)
[2016-12-01] MEDS ORDERED: MONTELUKAST SOD 10 MG TAB PO ONE (23:15)
[2016-12-01] MEDS ORDERED: TAMSULOSIN HCL 0.4 MG CAP PO ONE (23:15)
--- NOTE | 2016-12-01 23:47 | EMERGENCY ROOM VISIT NOTE ---
History Report prepared by Stanley: Meghna Wilson Under the Supervision of: Dr. Frankie Preston M.D. First contact with patient: 18:54 Chief Complaint: MENTAL HEALTH EVALUATION Stated Complaint: DEPRESSION, SUICIDAL THOUGHTS History of Present Illness The patient is a 55 year old female who presents to the Emergency Room with complaints of persistent suicidal thoughts starting 1.5 weeks ago. The patient has been having SOB from her COPD recently. Her deteriorating health is causing her to have suicidal thoughts. She does not have a plan or any intent. She has a history of depression and is on Wellbutrin. She has a therapist, and has a scheduled appointment in 2 weeks. She reports chest tightness which feels like her COPD. She has been having this chest pain intermittently for several years. It is unchanged and not worsened. She denies any fever, cough, abdominal pain , or leg swelling. She is currently on Macrobid for UTI. She is on a steroid inhaler. She notes that her sister found her unconscious in bed 2 months ago. She was not admitted to the hospital at that time. Source of History: patient Onset: 1.5 weeks ago Position: other (global) Quality: other (suicidal thoughts) Timing: other (persistent) Associated Symptoms: + chest pain, + SOB, No fevers, No cough, No abdominal pain Note: Pt denies leg swelling. Review of Systems See HPI for pertinent positives & negatives. A total of 10 systems reviewed and were otherwise negative. Past Medical & Surgical Medical Problems: (1) Accidental drug overdose (2) Alcohol abuse (3) Aspiration pneumonia (4) Back pain (5) Cataract (6) Chronic hepatitis C (7) Chronic obstructive lung disease (8) Chronic paranoid schizophrenia (9) Closed fracture of femur (10) COPD (chronic obstructive pulmonary disease) (11) Deep venous thrombosis (12) Depression (13) Drug abuse (14) Gastroesophageal reflux disease (15) Hepatitis C (16) Hypoxia (17) Hysterectomy (18) Opiate abuse, continuous (19) Osteomyelitis (20) Osteoporosis (21) Past Psych Meds (22) Psychosis (23) S/P ORIF (open reduction internal fixation) fracture (24) Schizoaffective disorder (25) Seizure (26) Sepsis (27) Suicidal ideation (28) Tinea (29) Tobacco user Surgical Problems: (1) H/O colonoscopy (2) History of hysterectomy (3) S/p thoracic spinal surgery (4) S/P tonsillectomy Family History FH: lung cancer GRANDMOTHER Thyroid disorder MOTHER SISTER Social History Smoking Status: Never Smoker Alcohol Use: none Drug Use: other Marital Status: single Housing Status: lives with family Occupation Status: disabled Current/Historical Medications Scheduled Bupropion (Wellbutrin Sr), 100 MG PO QAM Calcitonin Ezel (Calcitonin-Ezel), 1 SPRAY NA QPM Cefuroxime Axetil (Cefuroxime Axetil), 500 MG PO BID Cholecalciferol (D 1000), 1,000 UNIT PO QAM Clozapine (Clozapine), 100 MG PO TID Docusate Sodium (Docusate Sodium), 100 MG PO BID Escitalopram Oxalate (Escitalopram Oxalate), 20 MG PO QAM Fenofibrate (Fenofibrate), 48 MG PO QAM Ferrous Sulfate (Ferrous Sulfate), 325 MG PO BIDM Fluticasone Furoate-Vilanterol (Breo Ellipta), 1 PUFF INH QAM Fluticasone Propionate (Nasal) (Flonase Allergy Relief), 2 SPRAYS JOSE QAM Folic Acid (Folvite), 1 MG PO QAM Gabapentin (Neurontin), 200 MG PO BID Lorazepam (Ativan), 1 MG PO DIRECTED Montelukast Sodium (Singulair), 10 MG PO HS Oyster Shell (Oysco 500), 500 MG PO BID Perphenazine (Trilafon), 8 MG PO QAM Perphenazine (Trilafon), 8 MG PO 1300 Perphenazine (Trilafon), 8 MG PO 1600 Ranitidine HCl (Ranitidine HCl), 150 MG PO BID Senna/Docusate Sod (Senokot S), 2 TAB PO 1300 Tamsulosin Hcl (Flomax), 0.4 MG PO HS Umeclidinium [place] (Incruse Ellipta), 1 PUFF PO QAM Zoledronic Acid (Reclast), 1 DOSE INJ YEARLY Scheduled PRN Acetaminophen (Tylenol Arthritis Ext Rel), 650 MG PO Q8H PRN for Pain Albuterol Hfa (Ventolin Hfa), 2 PUFFS INH Q6H PRN for SOB/Wheezing Baclofen (Lioresal), 10 MG PO TID PRN for Muscle Spasms Magnesium Hydroxide (Milk Of Magnesia), 30 ML PO DAILY PRN for Constipation Naproxen (Aleve), 220 MG PO QAM PRN for Pain Allergies Coded Allergies: Haloperidol (Verified Allergy, Unknown, "MAKES ME GO INTO BLACKOUT", ) Hydroxyzine (Verified Allergy, Unknown, UNKNOWN, 12/01/16) INFO FROM [facility] (Verified Allergy, Unknown, "LEVEL CAN GET TOO HIGH", 12/01/16) Molindone (Verified Adverse Reaction, Intermediate, PT FEELS LIKE SHES "JUMPING OUT OF HER SKIN", 12/01/16) Morphine and Related (Verified Adverse Reaction, Intermediate, DROWSY, 12/01/16) px was drowsy w/ pinpoint pupils and minimally responsive. stable VS. Following Morphine IR 15mg - 3 doses in prior 24 hours. Naloxone 0.4mg admin 3 times during that period. Fluphenazine (Verified Adverse Reaction, Unknown, confusion, 12/01/16) Physical Exam Vital Signs Date Time Temp Pulse Resp B/P (MAP) Pulse Ox O2 Delivery O2 Flow Rate FiO2 12/01/16 23:37 96 18 121/72 98 Nasal Cannula 2.0 12/01/16 22:26 99 24 103/67 98 Nasal Cannula 3.0 12/01/16 20:27 103 20 133/83 98 Nasal Cannula 3.0 12/01/16 18:50 36.9 122 20 108/72 97 Nasal Cannula 2.0 Physical Exam Constitutional: Vital signs reviewed. Eyes: Pupils are equal round reactive to light. Conjunctiva are noninjected. ENT: Pharynx is clear without erythema or exudate. Mucous membranes are moist. Neck supple without meningeal signs. Respiratory: Minimal scattered wheezing. Breath sounds are equal bilaterally. Cardiovascular: Regular rate and rhythm. No rubs or gallops. GI: Soft, nondistended and nontender. Bowel sounds are present. Musculoskeletal: No peripheral edema. No lower extremity tenderness. Integumentary: No cyanosis. Neurological: The patient is awake and alert. No focal deficits. Psychiatric: Slightly anxious. Medical Decision & Procedures ER Provider Diagnostic Interpretation: X-ray results as stated below per interpretation by me and the radiologist: CHEST 2 VIEWS ROUTINE CLINICAL HISTORY: 55 years-old Female presenting with sob eval for pna. TECHNIQUE: PA and lateral views of the chest were obtained. COMPARISON: 11/26/2016. FINDINGS: Right sided Mediport remains in place. Cardiac silhouette mildly prominent, unchanged. Stable slight interval decrease in groundglass and reticulonodular opacities in the right upper and left mid lung. Mildly low lung volumes unchanged. No large effusion or pneumothorax. Deformities of the right lateral ribs unchanged. Posterior fusion hardware again noted. Upper abdomen normal. IMPRESSION: 1. Stable to slight interval decrease in bilateral pulmonary opacities. Electronically signed by: Ayden Palacios M.D. 12/01/2016 8:57 PM Dictated Date/Time: 12/01/2016 8:56 PM Laboratory Results 12/01/16 19:35 Red Blood Count 4.45, Mean Corpuscular Volume 91.0, Mean Corpuscular Hemoglobin 30.3, Mean Corpuscular Hemoglobin Concent 33.3, Mean Platelet Volume 9.9, Neutrophils (%) (Auto) 56.0, Lymphocytes (%) (Auto) 27.0, Monocytes (%) (Auto) 10.9, Eosinophils (%) (Auto) 5.5, Basophils (%) (Auto) 0.4, Neutrophils # (Auto ) 5.44, Lymphocytes # (Auto) 2.62, Monocytes # (Auto) 1.06, Eosinophils # (Auto ) 0.53, Basophils # (Auto) 0.04 12/01/16 19:35 Test 12/01/16 19:35 12/01/16 19:43 12/01/16 20:15 White Blood Count 9.71 K/uL (4.8-10.8) Red Blood Count 4.45 M/uL (4.2-5.4) Hemoglobin 13.5 g/dL (12.0-16.0) Hematocrit 40.5 % (37-47) Mean Corpuscular Volume 91.0 fL (80-100) Mean Corpuscular Hemoglobin 30.3 pg (25-34) Mean Corpuscular Hemoglobin Concent 33.3 g/dl (32-36) Platelet Count 220 K/uL (130-400) Mean Platelet Volume 9.9 fL (7.4-10.4) Neutrophils (%) (Auto) 56.0 % Lymphocytes (%) (Auto) 27.0 % Monocytes (%) (Auto) 10.9 % Eosinophils (%) (Auto) 5.5 % Basophils (%) (Auto) 0.4 % Neutrophils # (Auto) 5.44 K/uL (1.4-6.5) Lymphocytes # (Auto) 2.62 K/uL (1.2-3.4) Monocytes # (Auto) 1.06 K/uL (0.11-0.59) Eosinophils # (Auto) 0.53 K/uL (0-0.5) Basophils # (Auto) 0.04 K/uL (0-0.2) RDW Standard Deviation 47.5 fL (36.4-46.3) RDW Coefficient of Variation 14.3 % (11.5-14.5) Immature Granulocyte % (Auto) 0.2 % Immature Granulocyte # (Auto) 0.02 K/uL (0.00-0.02) Prothrombin Time 10.6 SECONDS (9.0-12.0) Prothromb Time International Ratio 1.0 (0.9-1.1) Activated Partial Thromboplast Time 25.6 SECONDS (21.0-31.0) Partial Thromboplastin Ratio 1.0 Anion Gap 7.0 mmol/L (3-11) Est Creatinine Clear Calc Drug Dose 75.7 ml/min Estimated GFR () 86.3 Estimated GFR (Non- 74.5 BUN/Creatinine Ratio 21.6 (10-20) Calcium Level 9.6 mg/dl (8.5-10.1) Salicylates Level < 1.7 mg/dl (2.8-20) Acetaminophen Level < 2 ug/ml (10-30) Ethyl Alcohol mg/dL < 3.0 mg/dl (0-3) Bedside Troponin I < 0.030 ng/ml (0-0.045) Urine Opiates Screen NEG (NEG) Urine Methadone, Qualitative NEG (NEG) Urine Barbiturates NEG (NEG) Urine Phencyclidine (PCP) Level NEG (NEG) Ur Amphetamine/Methamphetamine NEG (NEG) MDMA (Ecstasy) Screen POS (NEG) Urine Benzodiazepines Screen NEG (NEG) Urine Cocaine Metabolite NEG (NEG) Urine Marijuana (THC) NEG (NEG) Laboratory results as reviewed by me. Medications Administered Medications (Trade) Dose Ordered Sig/Janel Route Start Time Stop Time Status Last Admin Dose Admin Montelukast Sodium (Singulair Tab) 10 mg NOW ONCE PO 12/01/16 23:15 12/01/16 23:16 DC 12/01/16 23:34 10 MG Tamsulosin HCl (Flomax Cap) 0.4 mg NOW ONCE PO 12/01/16 23:15 12/01/16 23:16 DC 12/01/16 23:34 0.4 MG Clozapine (Clozaril Tab) 100 mg NOW STAT PO 12/01/16 23:10 12/01/16 23:14 DC 12/01/16 23:35 100 MG Baclofen (Lioresal Tab) 10 mg NOW STAT PO 12/01/16 23:10 12/01/16 23:14 DC 12/01/16 23:42 10 MG ECG Indication: SOB/dyspnea Rate (beats per minute): 108 Rhythm: sinus tachycardia Findings: no acute ischemic change, no ectopy Comparison ECG Date: 26-Nov-2016 Change: no significant change ED Course 1899: The patient was evaluated in room A5. A complete history and physical exam was performed. 2039: I reevaluated the patient. I discussed the test results with her. She was medically cleared for evaluation by [facility]. 2226: The patient has been evaluated by the mental health rifle case repairer. He reports that the patient does not meet criteria for inpatient care. She will be discharged home. 2299: I reevaluated the patient. She states that if she is discharged home, she is afraid that she might kill herself. She wants to stay in the hospital. 0030: The patient was signed out to Dr. Almanzar at the end of my shift. Medical Decision This is a 55-year-old female who presents with suicidal ideation. I did perform a limited focused review of portions of the patient's old chart on the electronic medical record. The patient was here November 26 for SOB. She had a chest CT which showed no pulmonary embolism or pneumonia. She was treated with albuterol and discharged home with a diagnosis of COPD exacerbation. I did evaluate the patient as noted above. The patient is presenting with suicidal ideation for the past week and a half. She is upset because of her poor health. She has bad COPD and has chronic shortness of breath and is oxygen dependent. She also has chronic chest discomfort which is unchanged. She does have a therapist but does not see her for 2 weeks. The patient only wanted a mental health workup and was initially refusing any medical workup but we were able to convince her to agree to some blood work, EKG and a chest x- ray. IV access was established. The patient was placed on a continuous cardiac exercise physiologist. I did order and personally review the patient's 12-lead EKG and chest x-ray as described above. I did order and review the patient's blood work as noted in the electronic medical record. The patient was medically cleared. I did have the mental health rifle case repairer evaluate the patient. He did not feel the patient required inpatient psychiatric care and did not meet criteria. I agreed and the plan was to discharge patient home but the patient started to become very tearful and stated that if she went home she may kill herself. She felt that she needed to stay in the hospital and learned that her coping mechanisms. I did give her her night meds and bed search is underway for the patient. The patient was signed out to Dr. Almanzar. Medication Reconcilliation Current Medication List: was personally reviewed by me Blood Pressure Screening Patient's blood pressure: Normal blood pressure Blood pressure disposition: Did not require urgent referral Impression Primary Impression: Mood disorder Additional Impressions: COPD (chronic obstructive pulmonary disease) Suicidal ideation Scribe Attestation The scribe's documentation has been prepared under my direct and personally reviewed by me in its entirety. I confirm that the note above accurately reflects all work, treatment, procedures, and medical decision making performed by me. Departure Information Dispostion Home / Self-Care Referrals Naveed Adam III, M.D. (PCP) Forms HOME CARE DOCUMENTATION FORM, IMPORTANT VISIT INFORMATION Patient Instructions My [facility] Additional Instructions You have been examined and treated today on an emergency basis only. This is not a substitute for, or an effort to provide, complete comprehensive medical care. It is impossible to recognize and treat all injuries or illnesses in a single emergency department visit. It is therefore important that you follow up closely with your physician. Call as soon as possible for an appointment. Return for worsening symptoms or if you develop any other concerning symptoms. Problem Qualifiers Additional Impressions: COPD (chronic obstructive pulmonary disease) COPD type: unspecified COPD Qualified Codes: J44.9 - Chronic obstructive pulmonary disease, unspecified
[2016-12-02] MEDS ORDERED: KETOROLAC TROMETHAMINE 60 MG/2 ML VIAL IM STA ×2 (03:20→11:09)
--- NOTE | 2016-12-02 06:09 | EMERGENCY ROOM VISIT NOTE ---
ED Visit Note First contact with patient: 04:29 55 yr old female well known to ED for chronic psychiatric issues. Arrives last evening and initially evaluated and medically cleared by Dr Preston. She noted to staff that if discharged she would try to kill herself. Due to no beds in area bed search put on hold overnight. Given IM toradol for reported headache. No other issues throughout the night. Signed out to Dr Howard awaiting further bed search. Patient did not make any suicidal threats/gestures towards me.
[2016-12-02] MEDS ORDERED: BACLOFEN 10 MG TAB PO STA (07:22)
--- NOTE | 2016-12-02 07:28 | EMERGENCY ROOM VISIT NOTE ---
ED Visit Note First contact with patient: 06:56 Patient signed out to me at shift change by Dr. Almanzar. At that point, the patient has been medically cleared and has been waiting for 3 S. to see her. When I reassessed her , she is stable. She is complaining of chronic back pain and asked for some of her meds that she typically gets. I gave her baclofen 10 mg that is typical for her. She also received additional IV Toradol while she was in the ER. She she did also receive a DuoNeb as she does have COPD. She has remained stable. She was further evaluated by our mental health case management assistant , Caridad. Caridad has made contact with her case management team was checking with her today and tomorrow. The patient denies that she has any plan to hurt herself and does feel comfortable going home. At present she has no acute suicidal ideations. She did receive an Ativan 0.5 mg while in the ER as the patient next door had a psychotic break and stress her out. The patient tolerated this well. She will be discharged home again she has close follow-up with the case management team check and now her today and tomorrow and she should follow-up with her doctor on Sunday. She was happy with plan discharge to home.
[2016-12-02] MEDS ORDERED: ONDANSETRON INJ 2 MG/ML 2 ML VIAL IV STA (09:27)
[2016-12-02] MEDS ORDERED: ONDANSETRON 2MG ODT PO STA (09:28)
[2016-12-02] MEDS ORDERED: KETOROLAC TROMETHAMINE 30 MG/ML VIAL IV STA (11:02)
[2016-12-02] MEDS ORDERED: ALBUT/IPRATROP 3MG/0.5MG NEB 3 ML VIAL INH STA (11:02)
[2016-12-02] MEDS ORDERED: LORAZEPAM 0.5 MG TAB SL STA (13:00)
[2016-12-02 13:31] VITALS: BP 136/82; PULSE 112; O2SAT 98
== END 2016-12-02 14:10 | disposition home or self-care (01) ==
LOC: C.EDB 18:41 → C.EDA 12-02 14:10
DX: F39 Unspecified mood [affective] disorder (principal); J44.9 Chronic obstructive pulmonary disease, unspecified; R45.851 Suicidal ideations; F10.10 Alcohol abuse, uncomplicated; Z87.01 Personal history of pneumonia (recurrent); B18.2 Chronic viral hepatitis C; F32.9 Major depressive disorder, single episode, unspecified; M81.0 Age-related osteoporosis without current pathological fracture; F25.9 Schizoaffective disorder, unspecified; Z86.718 Personal history of other venous thrombosis and embolism; K21.9 Gastro-esophageal reflux disease without esophagitis; M86.9 Osteomyelitis, unspecified; Z80.9 Family history of malignant neoplasm, unspecified; Z79.899 Other long term (current) drug therapy

== ENCOUNTER 2016-12-04 20:09 | Inpatient (IN) | payer OTHER ==
[~2016-12-04] VITALS: Ht 162.6 cm; Wt 82.5 kg
[~2016-12-04 20:09] MED LIST changes: +GABA-112 PO; -GABA1CAP PO; -PRED20TA2 PO; -SPCCR30 TOP
[2016-12-04] MEDS ORDERED: BUPR100T8 PO (20:10)
[2016-12-04] MEDS ORDERED: METHYLPREDNISOLONE 125 MG VIAL IV STA (21:19)
[2016-12-04] MEDS ORDERED: MAGNESIUM SULFATE 1GM / D5W 1 GM BAG IV STA (21:19)
--- NOTE | 2016-12-04 21:27 | EMERGENCY ROOM VISIT NOTE ---
History Report prepared by Stanley: Navjot Mar Under the Supervision of: Dr. Neto Ricketts M.D. First contact with patient: 21:10 Chief Complaint: CHEST PAIN Stated Complaint: CHEST PAIN/BREATHING DIFFICULTY Nursing Triage Summary: pt brought to main ED from home by BLS for chest pain/SOB. BLS states pt had her O2 on at home, pt states she wears 2L NC and 3L NC at bedtime. BLS reports o2 sats around 95%. pt c/o chest pain around to back, worse "the last two days." pt has noted indwelling arzate cath. pt alert and oriented x4, breathing WNL. pt states "I'm also feeling suicidal." see mental health assessment. History of Present Illness The patient is a 56 year old female who presents to the Emergency Room via EMS with complaints of worsening bilateral chest pain that has been present for "a long time." She is also feeling short of breath. She is normally on oxygen, but noticed that her pulse ox was low today. She is currently on two antibiotics for a UTI. She has an appointment tomorrow with her PCP. She notes that since she was last here, she has had thoughts of suicide as well. She is coughing up brown sputum. She denies any burning with urination. She notes that she tried to hurt herself in the past with a drug overdose. EMS reports that her pulse ox was 95%. Source of History: patient Onset: a long time Position: chest (bilateral) Symptom Intensity: moderate Quality: ache Timing: constant, worsening Associated Symptoms: + cough, + SOB, No urinary symptoms Note: She has thoughts of suicide. Review of Systems See HPI for pertinent positives and negatives. A total of ten systems were reviewed and were otherwise negative. Past Medical & Surgical Medical Problems: (1) Accidental drug overdose (2) Alcohol abuse (3) Aspiration pneumonia (4) Back pain (5) Cataract (6) Chronic hepatitis C (7) Chronic obstructive lung disease (8) Chronic paranoid schizophrenia (9) Closed fracture of femur (10) COPD (chronic obstructive pulmonary disease) (11) Deep venous thrombosis (12) Depression (13) Drug abuse (14) Gastroesophageal reflux disease (15) Hepatitis C (16) Hypoxia (17) Hysterectomy (18) Opiate abuse, continuous (19) Osteomyelitis (20) Osteoporosis (21) Past Psych Meds (22) Psychosis (23) S/P ORIF (open reduction internal fixation) fracture (24) Schizoaffective disorder (25) Seizure (26) Sepsis (27) Suicidal ideation (28) Tinea (29) Tobacco user Surgical Problems: (1) H/O colonoscopy (2) History of hysterectomy (3) S/p thoracic spinal surgery (4) S/P tonsillectomy Family History FH: lung cancer GRANDMOTHER Thyroid disorder MOTHER SISTER Social History Smoking Status: Never Smoker Alcohol Use: none Drug Use: other Marital Status: single Housing Status: lives with family Occupation Status: disabled Current/Historical Medications Scheduled Bupropion (Wellbutrin Sr), 100 MG PO QAM Calcitonin [place] (Calcitonin-Calumet), 1 SPRAY NA QPM Cholecalciferol (D 1000), 1,000 UNIT PO QAM Clozapine (Clozapine), 100 MG PO TID Docusate Sodium (Docusate Sodium), 100 MG PO BID Escitalopram Oxalate (Escitalopram Oxalate), 20 MG PO QAM Fenofibrate (Fenofibrate), 48 MG PO QAM Ferrous Sulfate (Ferrous Sulfate), 325 MG PO BIDM Fluticasone Furoate-Vilanterol (Breo Ellipta), 1 PUFF INH QAM Fluticasone Propionate (Nasal) (Flonase Allergy Relief), 2 SPRAYS JOSE QAM Folic Acid (Folvite), 1 MG PO QAM Gabapentin (Neurontin), 200 MG PO BID Montelukast Sodium (Singulair), 10 MG PO HS Nitrofurantoin (Nitrofurantoin Monohydrat), 100 MG PO HS Oyster Shell (Oysco 500), 500 MG PO BID Perphenazine (Trilafon), 8 MG PO TID@0800,1200,1600 Ranitidine HCl (Ranitidine HCl), 150 MG PO BID Senna/Docusate Sod (Senokot S), 2 TAB PO 1300 Tamsulosin Hcl (Flomax), 0.4 MG PO HS Umeclidinium [place] (Incruse Ellipta), 1 PUFF PO QAM Zoledronic Acid (Reclast), 1 DOSE INJ YEARLY Scheduled PRN Acetaminophen (Tylenol Arthritis Ext Rel), 650 MG PO Q8H PRN for Pain Albuterol Hfa (Ventolin Hfa), 2 PUFFS INH Q6H PRN for SOB/Wheezing Baclofen (Lioresal), 10 MG PO TID PRN for Muscle Spasms Lorazepam (Ativan), 0.5 MG PO QID PRN for Anxiety/Agitation Magnesium Hydroxide (Milk Of Magnesia), 30 ML PO DAILY PRN for Constipation Naproxen (Aleve), 220 MG PO QAM PRN for Pain Allergies Coded Allergies: Hydrocodone (Verified Allergy, Severe, DROWSY, 12/04/16) Haloperidol (Verified Allergy, Unknown, "MAKES ME GO INTO BLACKOUT", ) Hydroxyzine (Verified Allergy, Unknown, UNKNOWN, 12/01/16) INFO FROM [facility] (Verified Allergy, Unknown, "LEVEL CAN GET TOO HIGH", 12/01/16) Oxycodone (Verified Adverse Reaction, Severe, DROWSY, 12/04/16) Molindone (Verified Adverse Reaction, Intermediate, PT FEELS LIKE SHES "JUMPING OUT OF HER SKIN", 12/01/16) Morphine and Related (Verified Adverse Reaction, Intermediate, DROWSY, 12/01/16) px was drowsy w/ pinpoint pupils and minimally responsive. stable VS. Following Morphine IR 15mg - 3 doses in prior 24 hours. Naloxone 0.4mg admin 3 times during that period. Fluphenazine (Verified Adverse Reaction, Unknown, confusion, 12/01/16) Physical Exam Vital Signs Date Time Temp Pulse Resp B/P (MAP) Pulse Ox O2 Delivery O2 Flow Rate FiO2 12/05/16 00:00 97 18 109/76 97 Nasal Cannula 3.0 12/04/16 22:30 100 18 134/86 99 Nebulizer 12/04/16 22:19 103 18 115/90 100 Nebulizer 12/04/16 21:40 94 18 97 Nasal Cannula 2.0 12/04/16 21:28 93 Nasal Cannula 2.0 12/04/16 21:25 94 Nasal Cannula 2.0 12/04/16 21:00 98 18 124/90 95 Nasal Cannula 2.0 12/04/16 20:29 98 12/04/16 20:20 95 Nasal Cannula 2.0 12/04/16 20:20 37.5 99 18 118/86 94 Nasal Cannula 2.0 Physical Exam GENERAL: Awake, drowsy but alert, chronically ill appearing, in no distress HENT: Normocephalic, atraumatic. Dry mucous membranes. EYES: Normal conjunctiva. Sclera non-icteric. NECK: Supple. No nuchal rigidity. FROM. No JVD. RESPIRATORY: Diminished breath sounds throughout with scattered rhonchi and wheezing. CARDIAC: Regular rate, normal rhythm. Extremities warm and well perfused. Pulses equal. ABDOMEN: Soft, Obese. No tenderness to palpation. No rebound or guarding. No masses. RECTAL: Deferred. MUSCULOSKELETAL: Chest examination reveals no tenderness. The back is symmetrical on inspection without obvious abnormality. There is no CVA tenderness to palpation. No joint edema. LOWER EXTREMITIES: Calves are equal size bilaterally and non-tender. No edema. No discoloration. NEURO: Normal sensorium. No sensory or motor deficits noted. SKIN: No rash or jaundice noted. Medical Decision & Procedures ER Provider Diagnostic Interpretation: Radiology results as stated below per my review and radiologist interpretation: CHEST ONE VIEW PORTABLE HISTORY: Atypical CHEST PAIN COMPARISON: Chest 12/01/2016. FINDINGS: No change in the bilateral perihilar opacities. The heart is stable in size. Posterior fusion throughout the thoracic spine. Right-sided Port-A-Cath terminates in the SVC. No pneumothorax. No pleural effusions. No new focal lung consolidations. No evidence for pulmonary edema. IMPRESSION: No change in the bilateral perihilar opacities which favors chronic fibrotic change. No new focal lung consolidations. Electronically signed by: Uriel Talley M.D. 12/04/2016 9:39 PM Dictated Date/Time: 12/04/2016 9:37 PM Laboratory Results 12/04/16 21:52 Red Blood Count 4.63, Mean Corpuscular Volume 90.9, Mean Corpuscular Hemoglobin 30.0, Mean Corpuscular Hemoglobin Concent 33.0, Mean Platelet Volume 9.8, Neutrophils (%) (Auto) 63.5, Lymphocytes (%) (Auto) 21.9, Monocytes (%) (Auto) 9.6, Eosinophils (%) (Auto) 4.4, Basophils (%) (Auto) 0.3, Neutrophils # (Auto) 8.17, Lymphocytes # (Auto) 2.82, Monocytes # (Auto) 1.23, Eosinophils # (Auto) 0.57, Basophils # (Auto) 0.04 12/04/16 21:52 Test 12/04/16 21:34 12/04/16 21:52 12/05/16 00:26 Influenza Type A (RT-PCR) Neg for Influ A (NEG) Influenza Type A Antigen Neg for Influ A (NEG) Influenza Type B Antigen Neg for Influ B (NEG) Influenza Type B (RT-PCR) Neg for Influ B (NEG) White Blood Count 12.87 K/uL (4.8-10.8) Red Blood Count 4.63 M/uL (4.2-5.4) Hemoglobin 13.9 g/dL (12.0-16.0) Hematocrit 42.1 % (37-47) Mean Corpuscular Volume 90.9 fL (80-100) Mean Corpuscular Hemoglobin 30.0 pg (25-34) Mean Corpuscular Hemoglobin Concent 33.0 g/dl (32-36) Platelet Count 201 K/uL (130-400) Mean Platelet Volume 9.8 fL (7.4-10.4) Neutrophils (%) (Auto) 63.5 % Lymphocytes (%) (Auto) 21.9 % Monocytes (%) (Auto) 9.6 % Eosinophils (%) (Auto) 4.4 % Basophils (%) (Auto) 0.3 % Neutrophils # (Auto) 8.17 K/uL (1.4-6.5) Lymphocytes # (Auto) 2.82 K/uL (1.2-3.4) Monocytes # (Auto) 1.23 K/uL (0.11-0.59) Eosinophils # (Auto) 0.57 K/uL (0-0.5) Basophils # (Auto) 0.04 K/uL (0-0.2) RDW Standard Deviation 48.5 fL (36.4-46.3) RDW Coefficient of Variation 14.5 % (11.5-14.5) Immature Granulocyte % (Auto) 0.3 % Immature Granulocyte # (Auto) 0.04 K/uL (0.00-0.02) Venous Blood pH 7.43 (7.36-7.41) Venous Blood Partial Pressure CO2 45 mmHg (38.0-50.0) Venous Blood Partial Pressure O2 46 mmHg Venous Blood HCO3 30 mmol/L Venous Blood Oxygen Saturation 80.3 % Venous Blood Base Excess 4.5 mEq/L Anion Gap 6.0 mmol/L (3-11) Est Creatinine Clear Calc Drug Dose 92.0 ml/min Estimated GFR () 109.6 Estimated GFR (Non- 94.6 BUN/Creatinine Ratio 19.6 (10-20) Calcium Level 9.6 mg/dl (8.5-10.1) Total Bilirubin 0.5 mg/dl (0.2-1) Direct Bilirubin 0.1 mg/dl (0-0.2) Aspartate Amino Transf (AST/SGOT) 27 U/L (15-37) Alanine Aminotransferase (ALT/SGPT) 30 U/L (12-78) Alkaline Phosphatase 71 U/L (45-117) Troponin I < 0.015 ng/ml (0-0.045) Pro-B-Type Natriuretic Peptide 39 pg/ml (0-900) Total Protein 7.9 gm/dl (6.4-8.2) Albumin 3.5 gm/dl (3.4-5.0) Lipase 350 U/L (73-393) Urine Color YELLOW Urine Appearance CLEAR (CLEAR) Urine pH 5.5 (4.5-7.5) Urine Specific [place] 1.013 (1.000-1.030) Urine Protein NEG (NEG) Urine Glucose (UA) 1+ (NEG) Urine Ketones NEG (NEG) Urine Occult Blood TRACE (NEG) Urine Nitrite NEG (NEG) Urine Bilirubin NEG (NEG) Urine Urobilinogen NEG (NEG) Urine Leukocyte Esterase MODERATE (NEG) Urine WBC (Auto) 5-10 /hpf (0-5) Urine RBC (Auto) 0-4 /hpf (0-4) Urine Hyaline Casts (Auto) 0 /lpf (0-5) Urine Epithelial Cells (Auto) 5-10 /lpf (0-5) Urine Bacteria (Auto) NEG (NEG) Laboratory results reviewed by me Medications Administered Medications (Trade) Dose Ordered Sig/Janel Route Start Time Stop Time Status Last Admin Dose Admin Albuterol/ Ipratropium (Duoneb) 12 ml ONE ONCE INH 12/04/16 21:30 12/04/16 21:31 DC 12/04/16 21:38 12 ML Methylprednisolone Sodium Succinate (Solu-Medrol IV) 125 mg NOW STAT IV 12/04/16 21:19 12/04/16 21:23 DC 12/04/16 22:09 125 MG Azithromycin 500 mg/Dextrose 255 ml @ 125 mls/hr ONE ONCE IV 12/04/16 21:30 12/04/16 23:32 DC 12/04/16 22:10 125 MLS/HR Magnesium Sulfate (Magnesium Sulfate) 2 gm NOW STAT IV 12/04/16 21:19 12/04/16 21:23 DC 12/04/16 22:16 2 GM Sodium Chloride 1,000 ml @ 999 mls/hr Q1H1M STAT IV 12/04/16 22:36 12/04/16 23:36 DC 12/04/16 22:46 999 MLS/HR ED Course 2109: The patient was evaluated in room C12. A complete history and physical exam was performed. 2118: Ordered Magnesium Sulfate 2 gm IV, Solu-Medrol IV 125 mg IV 2129: Ordered Azithromycin 500 mg/Dextrose 255 ml @ 125 mls/hr IV, DuoNeb 12 ml INH 2235: Ordered Sodium Chloride 1000 ml @ 999 mls/hr IV Medical Decision I reviewed the patient's past medical history, medications, and the nursing notes as described above. Differential diagnosis includes but is not limited to: pneumonia, bronchitis, dehydration, electrolyte abnormalities, acute coronary syndrome, pulmonary embolism, influenza, gastritis, gastroenteritis, UTI, and pyelonephritis. The patient is a 56-year-old woman with a past medical history of COPD on 2 L home O2 in the day and 3 L at night, chronic Lspine osteomyelitis that is non- operable presents to the emergency Department for the third time this week, now complaining of chest pain and shortness of breath since this morning per history of present illness. Arrival the patient is chronically ill-appearing but in no acute distress, afebrile stable vital signs. She was seen previously for suicidal ideation which improved after she was told there were no beds available. She does report that her thoughts of SI had waxed and waned but that she has follow-up with her therapist tomorrow. WBC is 12.8 which is nonspecific. CO2 within normal limits Labs otherwise unremarkable. Chest x- ray unchanged from prior without any signs of acute pneumonia. On exam the patient has diffuse wheezes and was put on an hour of continuous albuterol, was given Solu-Medrol, magnesium, and a Zithromax given her report of yellow productive sputum. She was reassessed and is feeling improved. Thus we will proceed with ambulatory pulse ox. Ambulatory trial with pulse ox attempted however patient reported worsening dyspnea from baseline and had desaturation to 88% on her 3 L nasal cannula. Thus we will admit the patient for a COPD exacerbation. Psych CM to see patient regarding intermittent SI, however given no active SI at this time no need for formal psych eval. Case was discussed with Dr. Wilfredo Huynh hospitalist will admit the patient for further management. Medication Reconcilliation Current Medication List: was personally reviewed by me Blood Pressure Screening Patient's blood pressure: Normal blood pressure Blood pressure disposition: Did not require urgent referral Impression Primary Impression: COPD exacerbation Scribe Attestation The scribe's documentation has been prepared under my direction and personally reviewed by me in its entirety. I confirm that the note above accurately reflects all work, treatment, procedures, and medical decision making performed by me. Departure Information Dispostion Home / Self-Care Referrals Naveed Adam III, M.D. (PCP) Forms Call Back Authorization, HOME CARE DOCUMENTATION FORM, IMPORTANT VISIT INFORMATION Patient Instructions My [facility]
[2016-12-04] MEDS ORDERED: ALBUT/IPRATROP 3MG/0.5MG NEB 3 ML VIAL INH ONE (21:30)
[2016-12-04] MEDS ORDERED: AZITHROMYCIN IV 500 MG in DEXTROSE 5% 250ML 250 ML IV ONE (21:30)
[2016-12-04] MEDS ORDERED: MCRB100HP PO (21:33)
[2016-12-04 21:40] VITALS: PULSE 94; O2SAT 97
--- NOTE | 2016-12-04 21:40 | DIAGNOSTIC IMAGING REPORT ---
CHEST ONE VIEW PORTABLE HISTORY: Atypical CHEST PAIN COMPARISON: Chest 12/01/2016. FINDINGS: No change in the bilateral perihilar opacities. The heart is stable in size. Posterior fusion throughout the thoracic spine. Right-sided Port-A-Cath terminates in the SVC. No pneumothorax. No pleural effusions. No new focal lung consolidations. No evidence for pulmonary edema. IMPRESSION: No change in the bilateral perihilar opacities which favors chronic fibrotic change. No new focal lung consolidations. Electronically signed by: Uriel Talley M.D. 12/04/2016 9:39 PM Dictated Date/Time: 12/04/2016 9:37 PM
[2016-12-04 22:04] LABS: VEN BLD GAS O2 SATURATION 80.3 %; VEN BLOOD GAS BASE EXCESS 4.5 mEq/L
[2016-12-04 22:09] LABS: BASO % 0.3 %; BASO ABS # 0.04 K/uL (0-0.2); COMPLETE YES; EOS % 4.4 %; HEMATOCRIT 42.1 % (37-47); IG% 0.3 %; LYMPH % 21.9 %; LYMPH ABS # 2.82 K/uL (1.2-3.4); MEAN CELL VOLUME 90.9 fL (80-100); MEAN PLATELET VOLUME 9.8 fL (7.4-10.4); MONO % 9.6 %; NEUT % 63.5 %; PLATELET COUNT 201 K/uL (130-400); RED BLOOD COUNT 4.63 M/uL (4.2-5.4); WHITE BLOOD COUNT 12.87 K/uL (4.8-10.8)
[2016-12-04 22:27] LABS: ALT/SGPT 30 U/L (12-78); BLOOD UREA NITROGEN 14 mg/dl (7-18); BUN/CREATININE RATIO 19.6 (10-20); CALCIUM 9.6 mg/dl (8.5-10.1); CARBON DIOXIDE 29 mmol/L (21-32); CHLORIDE 104 mmol/L (98-107); CREATININE 0.71 mg/dl (0.60-1.20); GLUCOSE 96 mg/dl (70-99); POTASSIUM 3.5 mmol/L (3.5-5.1); SODIUM 139 mmol/L (136-145)
[2016-12-04 22:32] LABS: ALKALINE PHOSPHATASE 71 U/L (45-117); AST/SGOT 27 U/L (15-37)
[2016-12-04] MEDS ORDERED: SODIUM CHLORIDE 0.9% 1000ML 1,000 ML IV STA (22:36)
[2016-12-04 23:40] LABS: INFLUENZA A PCR Neg for Influ A (NEG); INFLUENZA B PCR Neg for Influ B (NEG)
[2016-12-05] VITALS (9 sets, daily range): BP systolic 103–116; BP diastolic 72–87; PULSE 85–113; TEMP 36.4–36.7; O2SAT 94–99; Ht 162.6 cm; Wt 82.5 kg
[2016-12-05 00:52] LABS: URINE APPEARANCE CLEAR (CLEAR); URINE BILIRUBIN NEG (NEG); URINE COLOR YELLOW; URINE NITRITE NEG (NEG); URINE PH 5.5 (4.5-7.5); URINE SPECIFIC GRAVITY 1.013 (1.000-1.030); UROBILINOGEN NEG (NEG)
[2016-12-05 00:58] LABS: MANUAL MICROSCOPIC REQUIRED? NO; REVIEW REQ? YES
[2016-12-05] MEDS ORDERED: ONDANSETRON INJ 2 MG/ML 2 ML VIAL IV PRN (02:00)
[2016-12-05] MEDS ORDERED: MAGNESIUM HYDROXIDE SUSP 30 ML UDC PO PRN (03:15)
[2016-12-05] MEDS ORDERED: HOME MED ADMINISTRATION ONE (03:15)
--- NOTE | 2016-12-05 03:53 | History and Physical ---
History & Physical Date & Time of Service: Dec 05, 2016 at 03:32 Chief Complaint: Copd Exacerbation Primary Care Physician: Naveed Adam III, M.D. History of Present Illness Source: patient, clinic records, hospital records 56 yo F presents to the ER for the second time in 2 weeks with SOB. She reports that she has SOB with exertion and is requiring 3L of oxygen when she typically uses 2L at home. She has a h/o COPD and bronchiectasis. She reports some minor coughing and sputum changes. She also reports some intermittent chest pain just today that spontaneously resolved. It has been intermittent and she can feel it with exertion. She states it is "painful" and in the L and R breast areas when she has it. There is no radiation. Stress is a trigger for it. She has a arzate in place that was inserted as an outpatient for acute urinary retention 2/2 UTI for which she was on Macrobid and prior to that a cephalosporin. She denies any dysuria, fevers, chills, flank pain. She reports that she was to have the Arzate removed as outpatient on Sun of this week (day after tmrw). The patient also has schizophrenia and there was an initial concern that she may be suicidal. On my interview of the patient she is pleasant and does not appear depressed or down on herself. She denies active suicidal intentions. She denies a plan to hurt herself. She states that her pulse ox was running low in the high 80s and this made her concerned, also. Past Medical/Surgical History Medical Problems: (1) Accidental drug overdose Status: Resolved (2) Alcohol abuse Permanent Comment: no recent use attends AA Status: Resolved (3) Aspiration pneumonia Status: Resolved (4) Back pain Status: Chronic (5) Cataract Status: Chronic (6) Chronic hepatitis C Status: Chronic (7) Chronic obstructive lung disease Status: Chronic (8) Chronic paranoid schizophrenia Status: Chronic (9) Closed fracture of femur Permanent Comment: s/p ORIF Status: Resolved (10) COPD (chronic obstructive pulmonary disease) Status: Chronic (11) Deep venous thrombosis Status: Chronic (12) Depression Status: Chronic (13) Drug abuse Permanent Comment: narcotic addiction due to chronic pain attends NA Status: Resolved (14) Gastroesophageal reflux disease Status: Chronic (15) Hepatitis C Status: Chronic (16) Hypoxia Status: Chronic (17) Hysterectomy Status: Resolved (18) Osteoporosis Status: Chronic (19) S/P ORIF (open reduction internal fixation) fracture Permanent Comment: femur Status: Chronic (20) Schizoaffective disorder Status: Chronic (21) Seizure Status: Resolved (22) Tinea Status: Resolved (23) Tobacco user Status: Chronic Surgical Problems: (1) H/O colonoscopy Status: Chronic (2) History of hysterectomy Status: Chronic (3) S/p thoracic spinal surgery Permanent Comment: 07/07/2015; [place] [facility] [place]: Chronic (4) S/P tonsillectomy Status: Chronic Family History FH: lung cancer GRANDMOTHER Thyroid disorder MOTHER SISTER Social History Smoking Status: Former Smoker Alcohol Use: former alcoholic, sober for 2 years Drug Use: none, other Marital Status: single Housing status: lives with family (mom,sister) Occupational Status: disabled Immunizations History of Influenza Vaccine: N/A Influenza Vaccine Date: Dec 03, 2012 History of Tetanus Vaccine?: utd Tetanus Immunization Date: Nov 22, 2006 History of Pneumococcal: Yes Pneumococcal Date: Dec 03, 2010 History of Hepatitis B Vaccine: Yes Hepatitis Immunization Date: Dec 03, 1997 Multi-Drug Resistant Organisms History of MDRO: Yes Type of MDRO: MRSA Allergies Coded Allergies: Hydrocodone (Verified Allergy, Severe, DROWSY, 12/04/16) Haloperidol (Verified Allergy, Unknown, "MAKES ME GO INTO BLACKOUT", ) Hydroxyzine (Verified Allergy, Unknown, UNKNOWN, 12/01/16) [place] [facility] [place] (Verified Allergy, Unknown, "LEVEL CAN GET TOO HIGH", 12/01/16) Oxycodone (Verified Adverse Reaction, Severe, DROWSY, 12/04/16) Molindone (Verified Adverse Reaction, Intermediate, PT FEELS LIKE SHES "JUMPING OUT OF HER SKIN", 12/01/16) Morphine and Related (Verified Adverse Reaction, Intermediate, DROWSY, 12/01/16) px was drowsy w/ pinpoint pupils and minimally responsive. stable VS. Following Morphine IR 15mg - 3 doses in prior 24 hours. Naloxone 0.4mg admin 3 times during that period. Fluphenazine (Verified Adverse Reaction, Unknown, confusion, 12/01/16) Home Medications Scheduled Bupropion (Wellbutrin Sr), 100 MG PO QAM Calcitonin [place] (Calcitonin-[place]), 1 SPRAY NA QPM Cholecalciferol (D 1000), 1,000 UNIT PO QAM Clozapine (Clozapine), 100 MG PO TID Docusate Sodium (Docusate Sodium), 100 MG PO BID Escitalopram Oxalate (Escitalopram Oxalate), 20 MG PO QAM Fenofibrate (Fenofibrate), 48 MG PO QAM Ferrous Sulfate (Ferrous Sulfate), 325 MG PO BIDM Fluticasone Furoate-Vilanterol (Breo Ellipta), 1 PUFF INH QAM Fluticasone Propionate (Nasal) (Flonase Allergy Relief), 2 SPRAYS JOSE QAM Folic Acid (Folvite), 1 MG PO QAM Gabapentin (Neurontin), 200 MG PO BID Montelukast Sodium (Singulair), 10 MG PO HS Nitrofurantoin (Nitrofurantoin Monohydrat), 100 MG PO HS Oyster Shell ([place] 500), 500 MG PO BID Perphenazine (Trilafon), 8 MG PO TID@0800,1200,1600 Ranitidine HCl (Ranitidine HCl), 150 MG PO BID Senna/Docusate Sod (Senokot S), 2 TAB PO 1300 Tamsulosin Hcl (Flomax), 0.4 MG PO HS Umeclidinium [place] (Incruse Ellipta), 1 PUFF PO QAM Zoledronic Acid (Reclast), 1 DOSE INJ YEARLY Scheduled PRN Acetaminophen (Tylenol Arthritis Ext Rel), 650 MG PO Q8H PRN for Pain Albuterol Hfa (Ventolin Hfa), 2 PUFFS INH Q6H PRN for SOB/Wheezing Baclofen (Lioresal), 10 MG PO TID PRN for Muscle Spasms Lorazepam (Ativan), 0.5 MG PO QID PRN for Anxiety/Agitation Magnesium Hydroxide (Milk Of Magnesia), 30 ML PO DAILY PRN for Constipation Naproxen (Aleve), 220 MG PO QAM PRN for Pain Review of Systems AT least ten systems were reviewed and negative except as indicated in HPI. Physical Exam Vital Signs Date Time Temp Pulse Resp B/P (MAP) Pulse Ox O2 Delivery O2 Flow Rate FiO2 12/05/16 01:36 92 18 122/88 100 12/05/16 01:05 97 12/05/16 00:00 97 18 109/76 97 Nasal Cannula 3.0 12/04/16 22:30 100 18 134/86 99 Nebulizer 12/04/16 22:19 103 18 115/90 100 Nebulizer 12/04/16 21:40 94 18 97 Nasal Cannula 2.0 12/04/16 21:28 93 Nasal Cannula 2.0 12/04/16 21:25 94 Nasal Cannula 2.0 12/04/16 21:00 98 18 124/90 95 Nasal Cannula 2.0 12/04/16 20:29 98 12/04/16 20:20 95 Nasal Cannula 2.0 12/04/16 20:20 37.5 99 18 118/86 94 Nasal Cannula 2.0 General Appearance: WD/WN, no apparent distress, + pertinent finding (no resp distress, tachypnea or conversational dyspnea. ) Head: normocephalic, atraumatic Eyes: normal inspection, PERRL, sclerae normal ENT: hearing grossly normal Neck: trachea midline Respiratory/Chest: lungs clear, no respiratory distress, no accessory muscle use, + crackles (throughout all nunes), + pertinent finding (TTP of anterior chest wall.) Cardiovascular: regular rate, rhythm, no edema, no gallop, no JVD, no murmur, normal peripheral pulses Abdomen/GI: normal bowel sounds, non tender, soft Back: normal inspection Extremities/Musculoskelatal: normal inspection Neurologic/Psych: no motor/sensory deficits, alert, normal mood/affect, oriented x 3 Skin: + rash (on lower back and posterior R upper thigh) Diagnostics Laboratory Results 12/04/16 21:52 Red Blood Count 4.63, Mean Corpuscular Volume 90.9, Mean Corpuscular Hemoglobin 30.0, Mean Corpuscular Hemoglobin Concent 33.0, Mean Platelet Volume 9.8, Neutrophils (%) (Auto) 63.5, Lymphocytes (%) (Auto) 21.9, Monocytes (%) (Auto) 9.6, Eosinophils (%) (Auto) 4.4, Basophils (%) (Auto) 0.3, Neutrophils # (Auto) 8.17, Lymphocytes # (Auto) 2.82, Monocytes # (Auto) 1.23, Eosinophils # (Auto) 0.57, Basophils # (Auto) 0.04 12/04/16 21:52 Test 12/04/16 21:34 12/04/16 21:52 12/05/16 00:26 Influenza Type A (RT-PCR) Neg for Influ A (NEG) Influenza Type A Antigen Neg for Influ A (NEG) Influenza Type B Antigen Neg for Influ B (NEG) Influenza Type B (RT-PCR) Neg for Influ B (NEG) White Blood Count 12.87 K/uL (4.8-10.8) Red Blood Count 4.63 M/uL (4.2-5.4) Hemoglobin 13.9 g/dL (12.0-16.0) Hematocrit 42.1 % (37-47) Mean Corpuscular Volume 90.9 fL (80-100) Mean Corpuscular Hemoglobin 30.0 pg (25-34) Mean Corpuscular Hemoglobin Concent 33.0 g/dl (32-36) Platelet Count 201 K/uL (130-400) Mean Platelet Volume 9.8 fL (7.4-10.4) Neutrophils (%) (Auto) 63.5 % Lymphocytes (%) (Auto) 21.9 % Monocytes (%) (Auto) 9.6 % Eosinophils (%) (Auto) 4.4 % Basophils (%) (Auto) 0.3 % Neutrophils # (Auto) 8.17 K/uL (1.4-6.5) Lymphocytes # (Auto) 2.82 K/uL (1.2-3.4) Monocytes # (Auto) 1.23 K/uL (0.11-0.59) Eosinophils # (Auto) 0.57 K/uL (0-0.5) Basophils # (Auto) 0.04 K/uL (0-0.2) RDW Standard Deviation 48.5 fL (36.4-46.3) RDW Coefficient of Variation 14.5 % (11.5-14.5) Immature Granulocyte % (Auto) 0.3 % Immature Granulocyte # (Auto) 0.04 K/uL (0.00-0.02) Venous Blood pH 7.43 (7.36-7.41) Venous Blood Partial Pressure CO2 45 mmHg (38.0-50.0) Venous Blood Partial Pressure O2 46 mmHg Venous Blood HCO3 30 mmol/L Venous Blood Oxygen Saturation 80.3 % Venous Blood Base Excess 4.5 mEq/L Anion Gap 6.0 mmol/L (3-11) Est Creatinine Clear Calc Drug Dose 92.0 ml/min Estimated GFR () 109.6 Estimated GFR (Non- 94.6 BUN/Creatinine Ratio 19.6 (10-20) Calcium Level 9.6 mg/dl (8.5-10.1) Total Bilirubin 0.5 mg/dl (0.2-1) Direct Bilirubin 0.1 mg/dl (0-0.2) Aspartate Amino Transf (AST/SGOT) 27 U/L (15-37) Alanine Aminotransferase (ALT/SGPT) 30 U/L (12-78) Alkaline Phosphatase 71 U/L (45-117) Troponin I < 0.015 ng/ml (0-0.045) Pro-B-Type Natriuretic Peptide 39 pg/ml (0-900) Total Protein 7.9 gm/dl (6.4-8.2) Albumin 3.5 gm/dl (3.4-5.0) Lipase 350 U/L (73-393) Urine Color YELLOW Urine Appearance CLEAR (CLEAR) Urine pH 5.5 (4.5-7.5) Urine Specific [place] 1.013 (1.000-1.030) Urine Protein NEG (NEG) Urine Glucose (UA) 1+ (NEG) Urine Ketones NEG (NEG) Urine Occult Blood TRACE (NEG) Urine Nitrite NEG (NEG) Urine Bilirubin NEG (NEG) Urine Urobilinogen NEG (NEG) Urine Leukocyte Esterase MODERATE (NEG) Urine WBC (Auto) 5-10 /hpf (0-5) Urine RBC (Auto) 0-4 /hpf (0-4) Urine Hyaline Casts (Auto) 0 /lpf (0-5) Urine Epithelial Cells (Auto) 5-10 /lpf (0-5) Urine Bacteria (Auto) NEG (NEG) Date/Time Source Procedure Growth Status 12/05/16 00:26 Urine,Catheterized Urine Culture Pending Received Results Past 24 Hours Test 12/04/16 21:34 12/04/16 21:52 12/05/16 00:26 Range/Units Influenza Type A (RT-PCR) Neg for Influ A NEG Influenza Type A Antigen Neg for Influ A NEG Influenza Type B Antigen Neg for Influ B NEG Influenza Type B (RT-PCR) Neg for Influ B NEG White Blood Count 12.87 4.8-10.8 K/uL Red Blood Count 4.63 4.2-5.4 M/uL Hemoglobin 13.9 12.0-16.0 g/dL Hematocrit 42.1 37-47 % Mean Corpuscular Volume 90.9 80-100 fL Mean Corpuscular Hemoglobin 30.0 25-34 pg Mean Corpuscular Hemoglobin Concent 33.0 32-36 g/dl Platelet Count 201 130-400 K/uL Mean Platelet Volume 9.8 7.4-10.4 fL Neutrophils (%) (Auto) 63.5 % Lymphocytes (%) (Auto) 21.9 % Monocytes (%) (Auto) 9.6 % Eosinophils (%) (Auto) 4.4 % Basophils (%) (Auto) 0.3 % Neutrophils # (Auto) 8.17 1.4-6.5 K/uL Lymphocytes # (Auto) 2.82 1.2-3.4 K/uL Monocytes # (Auto) 1.23 0.11-0.59 K/uL Eosinophils # (Auto) 0.57 0-0.5 K/uL Basophils # (Auto) 0.04 0-0.2 K/uL RDW Standard Deviation 48.5 36.4-46.3 fL RDW Coefficient of Variation 14.5 11.5-14.5 % Immature Granulocyte % (Auto) 0.3 % Immature Granulocyte # (Auto) 0.04 0.00-0.02 K/uL Venous Blood pH 7.43 7.36-7.41 Venous Blood Partial Pressure CO2 45 38.0-50.0 mmHg Venous Blood Partial Pressure O2 46 mmHg Venous Blood HCO3 30 mmol/L Venous Blood Oxygen Saturation 80.3 % Venous Blood Base Excess 4.5 mEq/L Sodium Level 139 136-145 mmol/L Potassium Level 3.5 3.5-5.1 mmol/L Chloride Level 104 98-107 mmol/L Carbon Dioxide Level 29 21-32 mmol/L Anion Gap 6.0 3-11 mmol/L Blood Urea Nitrogen 14 7-18 mg/dl Creatinine 0.71 0.60-1.20 mg/dl Est Creatinine Clear Calc Drug Dose 92.0 ml/min Estimated GFR () 109.6 Estimated GFR (Non- 94.6 BUN/Creatinine Ratio 19.6 10-20 Random Glucose 96 70-99 mg/dl Calcium Level 9.6 8.5-10.1 mg/dl Total Bilirubin 0.5 0.2-1 mg/dl Direct Bilirubin 0.1 0-0.2 mg/dl Aspartate Amino Transf (AST/SGOT) 27 15-37 U/L Alanine Aminotransferase (ALT/SGPT) 30 12-78 U/L Alkaline Phosphatase 71 45-117 U/L Troponin I < 0.015 0-0.045 ng/ml Pro-B-Type Natriuretic Peptide 39 0-900 pg/ml Total Protein 7.9 6.4-8.2 gm/dl Albumin 3.5 3.4-5.0 gm/dl Lipase 350 73-393 U/L Urine Color YELLOW Urine Appearance CLEAR CLEAR Urine pH 5.5 4.5-7.5 Urine Specific [place] 1.013 1.000-1.030 Urine Protein NEG NEG Urine Glucose (UA) 1+ NEG Urine Ketones NEG NEG Urine Occult Blood TRACE NEG Urine Nitrite NEG NEG Urine Bilirubin NEG NEG Urine Urobilinogen NEG NEG Urine Leukocyte Esterase MODERATE NEG Urine WBC (Auto) 5-10 0-5 /hpf Urine RBC (Auto) 0-4 0-4 /hpf Urine Hyaline Casts (Auto) 0 0-5 /lpf Urine Epithelial Cells (Auto) 5-10 0-5 /lpf Urine Bacteria (Auto) NEG NEG Microbiology Results 12/05/16 Urine Culture, Received Pending Diagnostic Radiology CHEST ONE VIEW PORTABLE HISTORY: Atypical CHEST PAIN COMPARISON: Chest 12/01/2016. FINDINGS: No change in the bilateral perihilar opacities. The heart is stable in size. Posterior fusion throughout the thoracic spine. Right-sided Port-A-Cath terminates in the SVC. No pneumothorax. No pleural effusions. No new focal lung consolidations. No evidence for pulmonary edema. IMPRESSION: No change in the bilateral perihilar opacities which favors chronic fibrotic change. No new focal lung consolidations. EKG SR94, no ST changes Impression Assessment and Plan 56 yo schizophrenic F with h/o IPF and COPD presents with worsening hypoxia and reports of worsening dyspnea and chest pain intermittently today. 1. Dyspnea 2/2 COPD exacerbation-crackles without wheezing present. Continues on oxygen. Poss exacerbation of IPF w recent visit to ER 10 days ago and still symptomatic? Prednisone started, duonebs, Levaquin 750 daily. 2. Chronic hypoxic respiratory failure 2/2 COPD-continue with oxygen supplementation. 3. h/o alcoholism-sober x 2 years. 4. Scizophrenia-cont home meds 5. Depression/Anxiety-recent SI that are not currently present 6. Chest pain-poss related to lung issues but risk factors for ACS. Trend serial cardiac enzymes 7. Acute urinary retention 2/[address] Held Macrobid while giving Levaquin. Follow-up as outpatient for TOV this week as planned. 8. Fungal rash-started clotrimazole cream BID. Pt has pets/cats at home. Appears consistent with a dermatophyte infection. DVT proph: Guille 40 Full Code Dispo-telemetry DO Lino Dsouza Hopsitalist Advanced Directives Existing Living Will: Yes Existing Power of Track Inspecting Supervisor: Yes VTE Prophylaxis VTE Risk Assessment Done? Y/N: Yes Risk Level: Moderate Given or contraindicated: Enoxaparin (Lovenox)SQ
[2016-12-05 04:12] LABS: PROTHROMBIN TIME (PATIENT) 10.5 SECONDS (9.0-12.0)
[2016-12-05] MEDS ORDERED: INFLUENZA VACCINE HIGH DOSE 65+ 0.5 ML SYR IM. ONE (05:15)
[2016-12-05] MEDS ORDERED: INFLUENZA ADMINISTRATION CHARGE ONE (05:15)
[2016-12-05] MEDS ORDERED: IV FLUIDS COMPLETED PRN (05:30)
[2016-12-05] MEDS: LEVOFLOXACIN / D5W 750 MG in PREMIXED IN D5W 150 ML IV SCH (06:02)
[2016-12-05] MEDS: ALBUT/IPRATROP 3MG/0.5MG NEB 3 ML VIAL INH SCH ×4 (07:14→19:53)
[2016-12-05] MEDS: DOCUSATE SODIUM 100 MG CAP PO SCH ×2 (07:57→20:39)
[2016-12-05] MEDS: FERROUS SULFATE 325 MG TAB PO SCH ×2 (07:57→16:30)
[2016-12-05] MEDS: CHOLECALCIFEROL 1000 INTER.UNIT TAB PO SCH (07:57)
[2016-12-05] MEDS: PERPHENAZINE 2 MG TAB PO SCH ×3 (07:57→16:28)
[2016-12-05] MEDS: RANITIDINE HCL 150 MG TAB PO SCH ×2 (07:57→20:38)
[2016-12-05] MEDS: GABAPENTIN 100 MG CAP PO SCH ×2 (07:57→20:40)
[2016-12-05] MEDS: BuPROPion SR 100 MG TABCR PO SCH (07:57)
[2016-12-05] MEDS: FLUTICASONE PROPIONATE NA SPR 16 GM BTL NAE SCH (07:57)
[2016-12-05] MEDS: CALCIUM 600MG + VIT D 400 IU TAB PO SCH ×2 (07:57→20:39)
[2016-12-05] MEDS: CLOZAPINE 100 MG TAB PO SCH ×3 (07:57→20:39)
[2016-12-05] MEDS: ESCITALOPRAM OXALATE 20 MG TAB PO SCH (07:57)
[2016-12-05] MEDS: FENOFIBRATE 48 MG TAB PO SCH (07:58)
[2016-12-05] MEDS: ENOXAPARIN 40 MG/0.4 ML SYR SC SCH (07:58)
[2016-12-05] MEDS: CLOTRIMAZOLE 1% CR 15 GM TUBE EXT SCH ×2 (07:58→20:37)
[2016-12-05] MEDS: LORAZEPAM 0.5 MG TAB PO PRN ×3 (09:42→22:04)
[2016-12-05] MEDS: BACLOFEN 10 MG TAB PO PRN ×2 (10:11→16:28)
[2016-12-05] MEDS: DOCUSATE SODIUM/SENNA 50/8.6MG TAB PO SCH (12:10)
[2016-12-05] MEDS ORDERED: IBUPROFEN 600 MG TAB PO PRN (13:00)
[2016-12-05] MEDS: ACETAMINOPHEN 325 MG TAB PO PRN (19:07)
--- NOTE | 2016-12-05 19:56 | Progress Note ---
Internal Med Progress Note Date of Service: Dec 05, 2016. Provider Documentation: SUBJECTIVE: says still sob and has chest pain though resting comfortably on the chair. Has some epigastric tenderness. Serial Ce negative. On Levaquin. Follow cultures. pain control.Hemodynamics stable ASSESSMENT & PLAN: [] DVT PROPHYLAXIS [] DISPOSITION [] Vital Signs: Date Time Temp Pulse Resp B/P (MAP) Pulse Ox O2 Delivery O2 Flow Rate FiO2 12/05/16 19:29 36.6 113 20 116/74 (88) 94 12/05/16 16:00 Nasal Cannula 2.0 12/05/16 15:52 108 16 98 Nasal Cannula 3.0 12/05/16 15:09 105 20 112/78 (89) 96 Nasal Cannula 3.0 12/05/16 12:00 Nasal Cannula 2.0 12/05/16 11:53 36.4 102 16 115/87 (96) 97 3.0 12/05/16 11:11 105 16 97 Nasal Cannula 3.0 12/05/16 08:00 Nasal Cannula 2.0 12/05/16 07:24 36.7 85 16 103/72 (82) 99 3.0 12/05/16 07:17 93 15 96 Nasal Cannula 3.0 12/05/16 04:00 Nasal Cannula 3.0 12/05/16 03:03 36.5 96 20 112/77 97 Nasal Cannula 3.0 12/05/16 01:36 92 18 122/88 100 12/05/16 01:05 97 12/05/16 00:00 97 18 109/76 97 Nasal Cannula 3.0 12/04/16 22:30 100 18 134/86 99 Nebulizer 12/04/16 22:19 103 18 115/90 100 Nebulizer 12/04/16 21:40 94 18 97 Nasal Cannula 2.0 12/04/16 21:28 93 Nasal Cannula 2.0 12/04/16 21:25 94 Nasal Cannula 2.0 12/04/16 21:00 98 18 124/90 95 Nasal Cannula 2.0 12/04/16 20:29 98 12/04/16 20:20 95 Nasal Cannula 2.0 12/04/16 20:20 37.5 99 18 118/86 94 Nasal Cannula 2.0 Lab Results: Results Past 24 Hours Test 12/04/16 21:34 12/04/16 21:52 12/05/16 00:26 12/05/16 03:45 Range/Units Influenza Type A (RT-PCR) Neg for Influ A NEG Influenza Type A Antigen Neg for Influ A NEG Influenza Type B Antigen Neg for Influ B NEG Influenza Type B (RT-PCR) Neg for Influ B NEG White Blood Count 12.87 4.8-10.8 K/uL Red Blood Count 4.63 4.2-5.4 M/uL Hemoglobin 13.9 12.0-16.0 g/dL Hematocrit 42.1 37-47 % Mean Corpuscular Volume 90.9 80-100 fL Mean Corpuscular Hemoglobin 30.0 25-34 pg Mean Corpuscular Hemoglobin Concent 33.0 32-36 g/dl Platelet Count 201 130-400 K/uL Mean Platelet Volume 9.8 7.4-10.4 fL Neutrophils (%) (Auto) 63.5 % Lymphocytes (%) (Auto) 21.9 % Monocytes (%) (Auto) 9.6 % Eosinophils (%) (Auto) 4.4 % Basophils (%) (Auto) 0.3 % Neutrophils # (Auto) 8.17 1.4-6.5 K/uL Lymphocytes # (Auto) 2.82 1.2-3.4 K/uL Monocytes # (Auto) 1.23 0.11-0.59 K/uL Eosinophils # (Auto) 0.57 0-0.5 K/uL Basophils # (Auto) 0.04 0-0.2 K/uL RDW Standard Deviation 48.5 36.4-46.3 fL RDW Coefficient of Variation 14.5 11.5-14.5 % Immature Granulocyte % (Auto) 0.3 % Immature Granulocyte # (Auto) 0.04 0.00-0.02 K/uL Venous Blood pH 7.43 7.36-7.41 Venous Blood Partial Pressure CO2 45 38.0-50.0 mmHg Venous Blood Partial Pressure O2 46 mmHg Venous Blood HCO3 30 mmol/L Venous Blood Oxygen Saturation 80.3 % Venous Blood Base Excess 4.5 mEq/L Sodium Level 139 136-145 mmol/L Potassium Level 3.5 3.5-5.1 mmol/L Chloride Level 104 98-107 mmol/L Carbon Dioxide Level 29 21-32 mmol/L Anion Gap 6.0 3-11 mmol/L Blood Urea Nitrogen 14 7-18 mg/dl Creatinine 0.71 0.60-1.20 mg/dl Est Creatinine Clear Calc Drug Dose 92.0 ml/min Estimated GFR () 109.6 Estimated GFR (Non- 94.6 BUN/Creatinine Ratio 19.6 10-20 Random Glucose 96 70-99 mg/dl Calcium Level 9.6 8.5-10.1 mg/dl Total Bilirubin 0.5 0.2-1 mg/dl Direct Bilirubin 0.1 0-0.2 mg/dl Aspartate Amino Transf (AST/SGOT) 27 15-37 U/L Alanine Aminotransferase (ALT/SGPT) 30 12-78 U/L Alkaline Phosphatase 71 45-117 U/L Troponin I < 0.015 < 0.015 0-0.045 ng/ml Pro-B-Type Natriuretic Peptide 39 35 0-900 pg/ml Total Protein 7.9 6.4-8.2 gm/dl Albumin 3.5 3.4-5.0 gm/dl Lipase 350 73-393 U/L Urine Color YELLOW Urine Appearance CLEAR CLEAR Urine pH 5.5 4.5-7.5 Urine Specific [place] 1.013 1.000-1.030 Urine Protein NEG NEG Urine Glucose (UA) 1+ NEG Urine Ketones NEG NEG Urine Occult Blood TRACE NEG Urine Nitrite NEG NEG Urine Bilirubin NEG NEG Urine Urobilinogen NEG NEG Urine Leukocyte Esterase MODERATE NEG Urine WBC (Auto) 5-10 0-5 /hpf Urine RBC (Auto) 0-4 0-4 /hpf Urine Hyaline Casts (Auto) 0 0-5 /lpf Urine Epithelial Cells (Auto) 5-10 0-5 /lpf Urine Bacteria (Auto) NEG NEG Prothrombin Time 10.5 9.0-12.0 SECONDS Prothromb Time International Ratio 1.0 0.9-1.1 Total Creatine Kinase 46 26-192 U/L Creatine Kinase MB < 0.5 0.5-3.6 ng/ml Creatine Kinase MB Ratio 0-3.0 Procalcitonin < 0.05 0-0.5 ng/ml Test 12/05/16 05:00 12/05/16 10:06 Range/Units Total Creatine Kinase 38 26-192 U/L Creatine Kinase MB < 0.5 0.5-3.6 ng/ml Creatine Kinase MB Ratio 0-3.0 Troponin I < 0.015 0-0.045 ng/ml Microbiology Results 12/05/16 Blood Culture, Received Pending 12/05/16 Blood Culture, Received Pending 12/05/16 Urine Culture, Received Pending
[2016-12-05] MEDS: CALCITONIN SALMON NA 200 IU/AC 3.7 ML BTL SCH (20:37)
[2016-12-05] MEDS: MONTELUKAST SOD 10 MG TAB PO SCH (20:38)
[2016-12-05] MEDS: TAMSULOSIN HCL 0.4 MG CAP PO SCH (20:39)
[2016-12-06] VITALS (11 sets, daily range): BP systolic 97–127; BP diastolic 70–84; PULSE 79–113; TEMP 36.3–37.2; O2SAT 95–99
[2016-12-06] MEDS: LEVOFLOXACIN / D5W 750 MG in PREMIXED IN D5W 150 ML IV SCH (05:55)
[2016-12-06] MEDS: ALBUT/IPRATROP 3MG/0.5MG NEB 3 ML VIAL INH SCH ×4 (07:16→19:42)
[2016-12-06] MEDS: ESCITALOPRAM OXALATE 20 MG TAB PO SCH (08:11)
[2016-12-06] MEDS: BACLOFEN 10 MG TAB PO PRN ×2 (08:11→16:32)
[2016-12-06] MEDS: RANITIDINE HCL 150 MG TAB PO SCH ×2 (08:12→20:18)
[2016-12-06] MEDS: DOCUSATE SODIUM 100 MG CAP PO SCH ×2 (08:12→20:16)
[2016-12-06] MEDS: BuPROPion SR 100 MG TABCR PO SCH (08:12)
[2016-12-06] MEDS: FERROUS SULFATE 325 MG TAB PO SCH ×2 (08:13→16:35)
[2016-12-06] MEDS: CALCIUM 600MG + VIT D 400 IU TAB PO SCH ×2 (08:13→20:16)
[2016-12-06] MEDS: CHOLECALCIFEROL 1000 INTER.UNIT TAB PO SCH (08:14)
[2016-12-06] MEDS: FENOFIBRATE 48 MG TAB PO SCH (08:14)
[2016-12-06] MEDS: CLOZAPINE 100 MG TAB PO SCH ×3 (08:15→20:17)
[2016-12-06] MEDS: FLUTICASONE PROPIONATE NA SPR 16 GM BTL NAE SCH (08:16)
[2016-12-06] MEDS: GABAPENTIN 100 MG CAP PO SCH ×2 (08:16→20:17)
[2016-12-06] MEDS: ENOXAPARIN 40 MG/0.4 ML SYR SC SCH (08:17)
[2016-12-06] MEDS: PERPHENAZINE 2 MG TAB PO SCH ×3 (08:18→16:34)
[2016-12-06] MEDS: LORAZEPAM 0.5 MG TAB PO PRN ×2 (08:41→16:32)
[2016-12-06] MEDS: CLOTRIMAZOLE 1% CR 15 GM TUBE EXT SCH ×2 (09:00→20:17)
[2016-12-06 10:46] LABS: BASO % 0.2 %; BASO ABS # 0.03 K/uL (0-0.2); COMPLETE YES; EOS % 0.7 %; HEMATOCRIT 41.6 % (37-47); IG% 0.3 %; LYMPH % 7.9 %; LYMPH ABS # 1.22 K/uL (1.2-3.4); MEAN CELL VOLUME 94.5 fL (80-100); MEAN CORPUSCULAR HEMOGLOBIN 30.7 pg (25-34); MEAN CORPUSCULAR HGB CONC 32.5 g/dl (32-36); MEAN PLATELET VOLUME 10.3 fL (7.4-10.4); NEUT % 86.9 %; PLATELET COUNT 219 K/uL (130-400); WHITE BLOOD COUNT 15.36 K/uL (4.8-10.8)
[2016-12-06 11:17] LABS: BUN/CREATININE RATIO 17.2 (10-20); CALCIUM 9.6 mg/dl (8.5-10.1); CREATININE 1.1 mg/dl (0.60-1.20)
[2016-12-06 11:20] LABS: ALB/GLOB RATIO 0.7 (0.9-2)
[2016-12-06] MEDS: KETOROLAC TROMETHAMINE 30 MG/ML VIAL IV PRN ×2 (12:21→20:14)
[2016-12-06] MEDS: DOCUSATE SODIUM/SENNA 50/8.6MG TAB PO SCH (13:26)
[2016-12-06] MEDS: CEFTRIAXONE SOD INJ 1 GM in DEXTROSE 5% ADD-VANTAGE 50ML 50 ML IV SCH (13:27)
[2016-12-06] MEDS: FLUTICASONE FUROATE VILANTEROL INH SCH (18:08)
[2016-12-06] MEDS: UMECLIDINIUM BROMIDE INH SCH (18:09)
--- NOTE | 2016-12-06 18:26 | Progress Note ---
Internal Med Progress Note Date of Service: Dec 06, 2016. Provider Documentation: SUBJECTIVE: resting comfortably chest pain and abdominal pain improved sob improved afebrile no nausea Exam: General-alert and awake. Not in distress ENT-normal hearing Neck-no neck masses Lungs-cta b/l no wheezing present Heart-s1 and s2 heard regular rate and rhythm no murmurs Abdomen-soft bowel sounds present non tender no distension Extremities-no erythema no edema Neuro-alert and awake moves extremities ASSESSMENT & PLAN: 56 yo schizophrenic F with h/o IPF and COPD presents with worsening hypoxia and reports of worsening dyspnea and chest pain intermittently today. 1. Dyspnea 2/2 COPD exacerbation-on steroids nebs and abx. improving. 2. Chronic hypoxic respiratory failure 2/2 COPD-continue with oxygen supplementation. stable 3. h/o alcoholism-sober x 2 years. 4. Schizophrenia-cont home meds. stable 5. Depression/Anxiety-recent SI that are not currently present. stable 6. Chest pain-poss related to lung issues but risk factors for ACS. serial ce negative. stable 7. Acute urinary retention 2/[address] Follow-up as outpatient for TOV this week as planned.cx groeing e.coli await final sensitivities 8. Fungal rash-started clotrimazole cream BID. Pt has pets/cats at home. Appears consistent with a dermatophyte infection. DVT PROPHYLAXIS Lovenox DISPOSITION possible d/c in am Vital Signs: Date Time Temp Pulse Resp B/P (MAP) Pulse Ox O2 Delivery O2 Flow Rate FiO2 12/06/16 16:00 Room Air 12/06/16 15:40 104 16 99 Nasal Cannula 2.0 12/06/16 15:30 36.7 105 16 115/80 (92) 96 Room Air 12/06/16 12:00 36.4 113 18 97/70 (79) 95 Nasal Cannula 2.0 12/06/16 12:00 Nasal Cannula 2.0 12/06/16 11:27 112 16 98 Nasal Cannula 3.0 12/06/16 08:00 98 Nasal Cannula 2.0 12/06/16 07:50 37.2 91 18 120/80 (93) 98 3.0 12/06/16 07:19 94 16 97 Nasal Cannula 3.0 12/06/16 04:18 36.3 90 18 107/75 (86) 96 Nasal Cannula 3.0 12/06/16 04:00 Nasal Cannula 3.0 12/06/16 00:12 36.5 92 22 109/71 (84) 99 Nasal Cannula 3.0 12/06/16 00:00 Nasal Cannula 3.0 12/05/16 20:00 Nasal Cannula 2.0 12/05/16 19:54 95 16 97 Nasal Cannula 3.0 12/05/16 19:29 36.6 113 20 116/74 (88) 94 Lab Results: Results Past 24 Hours Test 12/06/16 10:32 Range/Units White Blood Count 15.36 4.8-10.8 K/uL Red Blood Count 4.40 4.2-5.4 M/uL Hemoglobin 13.5 12.0-16.0 g/dL Hematocrit 41.6 37-47 % Mean Corpuscular Volume 94.5 80-100 fL Mean Corpuscular Hemoglobin 30.7 25-34 pg Mean Corpuscular Hemoglobin Concent 32.5 32-36 g/dl Platelet Count 219 130-400 K/uL Mean Platelet Volume 10.3 7.4-10.4 fL Neutrophils (%) (Auto) 86.9 % Lymphocytes (%) (Auto) 7.9 % Monocytes (%) (Auto) 4.0 % Eosinophils (%) (Auto) 0.7 % Basophils (%) (Auto) 0.2 % Neutrophils # (Auto) 13.34 1.4-6.5 K/uL Lymphocytes # (Auto) 1.22 1.2-3.4 K/uL Monocytes # (Auto) 0.62 0.11-0.59 K/uL Eosinophils # (Auto) 0.11 0-0.5 K/uL Basophils # (Auto) 0.03 0-0.2 K/uL RDW Standard Deviation 51.7 36.4-46.3 fL RDW Coefficient of Variation 15.0 11.5-14.5 % Immature Granulocyte % (Auto) 0.3 % Immature Granulocyte # (Auto) 0.04 0.00-0.02 K/uL Erythrocyte Sedimentation Rate 24 0-21 mm/hr Sodium Level 142 136-145 mmol/L Potassium Level 4.0 3.5-5.1 mmol/L Chloride Level 109 98-107 mmol/L Carbon Dioxide Level 27 21-32 mmol/L Anion Gap 6.0 3-11 mmol/L Blood Urea Nitrogen 19 7-18 mg/dl Creatinine 1.10 0.60-1.20 mg/dl Est Creatinine Clear Calc Drug Dose 57.3 ml/min Estimated GFR () 64.5 Estimated GFR (Non- 55.7 BUN/Creatinine Ratio 17.2 10-20 Random Glucose 183 70-99 mg/dl Calcium Level 9.6 8.5-10.1 mg/dl Total Bilirubin 0.2 0.2-1 mg/dl Aspartate Amino Transf (AST/SGOT) 17 15-37 U/L Alanine Aminotransferase (ALT/SGPT) 23 12-78 U/L Alkaline Phosphatase 68 45-117 U/L Total Protein 7.9 6.4-8.2 gm/dl Albumin 3.2 3.4-5.0 gm/dl Globulin 4.7 2.5-4.0 gm/dl Albumin/Globulin Ratio 0.7 0.9-2
[2016-12-06] MEDS: CALCITONIN SALMON NA 200 IU/AC 3.7 ML BTL SCH (20:15)
[2016-12-06] MEDS: TAMSULOSIN HCL 0.4 MG CAP PO SCH (20:18)
[2016-12-06] MEDS: MONTELUKAST SOD 10 MG TAB PO SCH (20:18)
[2016-12-06] MEDS: ACETAMINOPHEN 325 MG TAB PO PRN (21:42)
[2016-12-07] VITALS (10 sets, daily range): BP systolic 104–127; BP diastolic 72–84; PULSE 64–103; TEMP 36.4–36.9; O2SAT 95–98
[2016-12-07] MEDS: LEVOFLOXACIN / D5W 750 MG in PREMIXED IN D5W 150 ML IV SCH (06:10)
[2016-12-07] MEDS: ALBUT/IPRATROP 3MG/0.5MG NEB 3 ML VIAL INH SCH ×4 (07:22→19:43)
[2016-12-07] MEDS: CLOTRIMAZOLE 1% CR 15 GM TUBE EXT SCH ×2 (08:28→21:04)
[2016-12-07] MEDS: FERROUS SULFATE 325 MG TAB PO SCH ×2 (08:28→16:18)
[2016-12-07] MEDS: FLUTICASONE PROPIONATE NA SPR 16 GM BTL NAE SCH (08:28)
[2016-12-07] MEDS: CLOZAPINE 100 MG TAB PO SCH ×3 (08:28→21:03)
[2016-12-07] MEDS: GABAPENTIN 100 MG CAP PO SCH ×2 (08:28→21:03)
[2016-12-07] MEDS: ESCITALOPRAM OXALATE 20 MG TAB PO SCH (08:28)
[2016-12-07] MEDS: DOCUSATE SODIUM 100 MG CAP PO SCH ×2 (08:28→21:03)
[2016-12-07] MEDS: PERPHENAZINE 2 MG TAB PO SCH ×3 (08:28→16:18)
[2016-12-07] MEDS: FENOFIBRATE 48 MG TAB PO SCH (08:28)
[2016-12-07] MEDS: CALCIUM 600MG + VIT D 400 IU TAB PO SCH ×2 (08:28→21:02)
[2016-12-07] MEDS: BuPROPion SR 100 MG TABCR PO SCH (08:29)
[2016-12-07] MEDS: ENOXAPARIN 40 MG/0.4 ML SYR SC SCH (08:29)
[2016-12-07] MEDS: RANITIDINE HCL 150 MG TAB PO SCH ×2 (08:29→21:02)
[2016-12-07] MEDS: CHOLECALCIFEROL 1000 INTER.UNIT TAB PO SCH (08:29)
[2016-12-07] MEDS: BACLOFEN 10 MG TAB PO PRN ×2 (08:29→18:29)
[2016-12-07] MEDS: POLYETHYLENE (MIRALAX) 17 GM PACK PO PRN (08:29)
[2016-12-07] MEDS: FLUTICASONE FUROATE VILANTEROL INH SCH (08:30)
[2016-12-07] MEDS: UMECLIDINIUM BROMIDE INH SCH (08:30)
[2016-12-07] MEDS: ACETAMINOPHEN 325 MG TAB PO PRN ×3 (09:30→22:19)
[2016-12-07] MEDS: LORAZEPAM 0.5 MG TAB PO PRN ×2 (10:48→22:19)
[2016-12-07 12:12] LABS: LEGIONELLA ANTIGEN DETECTED (NOT DETECTED)
[2016-12-07] MEDS: CEFTRIAXONE SOD INJ 1 GM in DEXTROSE 5% ADD-VANTAGE 50ML 50 ML IV SCH (12:12)
[2016-12-07] MEDS: DOCUSATE SODIUM/SENNA 50/8.6MG TAB PO SCH (12:12)
[2016-12-07] MEDS ORDERED: LORAZEPAM 1 MG TAB PO ONE (13:45)
[2016-12-07 14:26] LABS: BASO % 0.1 %; BASO ABS # 0.01 K/uL (0-0.2); COMPLETE YES; EOS % 0.3 %; HEMATOCRIT 38.7 % (37-47); IG% 0.3 %; LYMPH % 6.3 %; LYMPH ABS # 0.57 K/uL (1.2-3.4); MEAN CELL VOLUME 93.9 fL (80-100); MEAN CORPUSCULAR HEMOGLOBIN 29.4 pg (25-34); MEAN CORPUSCULAR HGB CONC 31.3 g/dl (32-36); MEAN PLATELET VOLUME 10.1 fL (7.4-10.4); MONO % 1.6 %; NEUT % 91.4 %; PLATELET COUNT 210 K/uL (130-400); RED BLOOD COUNT 4.12 M/uL (4.2-5.4)
[2016-12-07] MEDS: KETOROLAC TROMETHAMINE 30 MG/ML VIAL IV PRN ×2 (16:57→23:35)
--- NOTE | 2016-12-07 18:11 | Progress Note ---
Internal Med Progress Note Date of Service: Dec 07, 2016. Provider Documentation: SUBJECTIVE: resting comfortably was anxious requiring additional dose of Ativan no chest pain or sob no nausea want to go home Exam: General-alert and awake. Not in distress ENT-normal hearing Neck-no neck masses Lungs-cta b/l no wheezing present Heart-s1 and s2 heard regular rate and rhythm no murmurs Abdomen-soft bowel sounds present non tender no distension Extremities-no erythema no edema Neuro-alert and awake moves extremities ASSESSMENT & PLAN: 56 yo schizophrenic F with h/o IPF and COPD presents with worsening hypoxia and reports of worsening dyspnea and chest pain intermittently today. 1. Dyspnea 2/2 COPD exacerbation-on steroids nebs and abx. improving.will taper steroids 2. Chronic hypoxic respiratory failure 2/2 COPD-continue with oxygen supplementation. stable 3. h/o alcoholism-sober x 2 years. 4. Schizophrenia-cont home meds. stable 5. Depression/Anxiety-recent SI that are not currently present. stable 6. Chest pain-poss related to lung issues but risk factors for ACS. serial ce negative. stable 7. Acute urinary retention 2/[address] Follow-up as outpatient for TOV this week as planned.cx growing e.coli await final sensitivities 8. Fungal rash-started clotrimazole cream BID. Pt has pets/cats at home. Appears consistent with a dermatophyte infection. 9. Legionella antigen positive in urine sample on Levaquin DVT PROPHYLAXIS Lovenox DISPOSITION possible d/c in am Vital Signs: Date Time Temp Pulse Resp B/P (MAP) Pulse Ox O2 Delivery O2 Flow Rate FiO2 12/07/16 16:00 Nasal Cannula 2.0 12/07/16 15:35 103 14 96 Nasal Cannula 1.0 12/07/16 15:22 36.4 103 20 110/75 (87) 96 Nasal Cannula 2.0 12/07/16 11:45 Nasal Cannula 2.0 12/07/16 11:27 103 14 98 Nasal Cannula 1.0 12/07/16 11:03 36.5 64 18 110/74 (86) 97 Nasal Cannula 2.0 12/07/16 09:23 Nasal Cannula 2.0 12/07/16 07:45 Nasal Cannula 2.0 12/07/16 07:25 94 14 97 Nasal Cannula 1.0 12/07/16 07:12 36.9 77 18 127/84 (98) 97 Nasal Cannula 2.0 12/07/16 05:04 36.5 75 17 124/81 (95) 96 Nasal Cannula 2.0 12/07/16 04:00 Nasal Cannula 3.0 12/07/16 00:00 Nasal Cannula 3.0 12/06/16 23:57 36.8 79 18 127/84 (98) 97 Nasal Cannula 2.0 12/06/16 20:00 Room Air 12/06/16 19:44 36.6 97 18 115/76 (89) 96 Nasal Cannula 2.0 12/06/16 19:44 101 16 95 Nasal Cannula 2.0 Lab Results: Results Past 24 Hours Test 12/06/16 18:27 12/07/16 14:05 Range/Units Lab Scanned Report Lab Referral [id number] White Blood Count 9.10 4.8-10.8 K/uL Red Blood Count 4.12 4.2-5.4 M/uL Hemoglobin 12.1 12.0-16.0 g/dL Hematocrit 38.7 37-47 % Mean Corpuscular Volume 93.9 80-100 fL Mean Corpuscular Hemoglobin 29.4 25-34 pg Mean Corpuscular Hemoglobin Concent 31.3 32-36 g/dl Platelet Count 210 130-400 K/uL Mean Platelet Volume 10.1 7.4-10.4 fL Neutrophils (%) (Auto) 91.4 % Lymphocytes (%) (Auto) 6.3 % Monocytes (%) (Auto) 1.6 % Eosinophils (%) (Auto) 0.3 % Basophils (%) (Auto) 0.1 % Neutrophils # (Auto) 8.31 1.4-6.5 K/uL Lymphocytes # (Auto) 0.57 1.2-3.4 K/uL Monocytes # (Auto) 0.15 0.11-0.59 K/uL Eosinophils # (Auto) 0.03 0-0.5 K/uL Basophils # (Auto) 0.01 0-0.2 K/uL RDW Standard Deviation 51.5 36.4-46.3 fL RDW Coefficient of Variation 14.9 11.5-14.5 % Immature Granulocyte % (Auto) 0.3 % Immature Granulocyte # (Auto) 0.03 0.00-0.02 K/uL
[2016-12-07] MEDS: MONTELUKAST SOD 10 MG TAB PO SCH (21:02)
[2016-12-07] MEDS: TAMSULOSIN HCL 0.4 MG CAP PO SCH (21:04)
[2016-12-07] MEDS: CALCITONIN SALMON NA 200 IU/AC 3.7 ML BTL SCH (21:04)
[2016-12-08 04:00] VITALS: BP 119/87; PULSE 77; TEMP 36.6; O2SAT 99
[2016-12-08] MEDS: LEVOFLOXACIN / D5W 750 MG in PREMIXED IN D5W 150 ML IV SCH (05:47)
[2016-12-08 06:16] LABS: BASO % 0.3 %; BASO ABS # 0.03 K/uL (0-0.2); COMPLETE YES; HEMATOCRIT 38.3 % (37-47); IG% 0.5 %; LYMPH % 34.6 %; LYMPH ABS # 3.78 K/uL (1.2-3.4); MEAN CELL VOLUME 93.4 fL (80-100); MEAN CORPUSCULAR HEMOGLOBIN 29.8 pg (25-34); MEAN CORPUSCULAR HGB CONC 31.9 g/dl (32-36); MEAN PLATELET VOLUME 9.9 fL (7.4-10.4); NEUT % 51.6 %; PLATELET COUNT 211 K/uL (130-400); WHITE BLOOD COUNT 10.93 K/uL (4.8-10.8)
[2016-12-08 06:48] LABS: BUN/CREATININE RATIO 27.2 (10-20); CALCIUM 8.8 mg/dl (8.5-10.1); CREATININE 0.76 mg/dl (0.60-1.20); MAGNESIUM 2.3 mg/dl (1.8-2.4); POTASSIUM 4.4 mmol/L (3.5-5.1)
[2016-12-08 07:18] VITALS: PULSE 99; O2SAT 97
[2016-12-08] MEDS: ALBUT/IPRATROP 3MG/0.5MG NEB 3 ML VIAL INH SCH ×2 (07:18→11:13)
[2016-12-08 08:11] VITALS: BP 113/82; PULSE 82; TEMP 37; O2SAT 97
[2016-12-08] MEDS: FERROUS SULFATE 325 MG TAB PO SCH (08:38)
[2016-12-08] MEDS: CALCIUM 600MG + VIT D 400 IU TAB PO SCH (08:39)
[2016-12-08] MEDS: RANITIDINE HCL 150 MG TAB PO SCH (08:39)
[2016-12-08] MEDS: FENOFIBRATE 48 MG TAB PO SCH (08:39)
[2016-12-08] MEDS: PERPHENAZINE 2 MG TAB PO SCH ×2 (08:39→11:27)
[2016-12-08] MEDS: UMECLIDINIUM BROMIDE INH SCH (08:39)
[2016-12-08] MEDS: CHOLECALCIFEROL 1000 INTER.UNIT TAB PO SCH (08:39)
[2016-12-08] MEDS: DOCUSATE SODIUM 100 MG CAP PO SCH (08:39)
[2016-12-08] MEDS: GABAPENTIN 100 MG CAP PO SCH (08:39)
[2016-12-08] MEDS: FLUTICASONE PROPIONATE NA SPR 16 GM BTL NAE SCH (08:39)
[2016-12-08] MEDS: CLOTRIMAZOLE 1% CR 15 GM TUBE EXT SCH (08:39)
[2016-12-08] MEDS: CLOZAPINE 100 MG TAB PO SCH (08:39)
[2016-12-08] MEDS: FLUTICASONE FUROATE VILANTEROL INH SCH (08:39)
[2016-12-08] MEDS: BuPROPion SR 100 MG TABCR PO SCH (08:39)
[2016-12-08] MEDS: ESCITALOPRAM OXALATE 20 MG TAB PO SCH (08:39)
[2016-12-08] MEDS: ENOXAPARIN 40 MG/0.4 ML SYR SC SCH (08:40)
[2016-12-08] MEDS: BACLOFEN 10 MG TAB PO PRN (08:40)
[2016-12-08] MEDS: POLYETHYLENE (MIRALAX) 17 GM PACK PO PRN (08:40)
[2016-12-08] MEDS: LORAZEPAM 0.5 MG TAB PO PRN (09:24)
[2016-12-08] MEDS: ACETAMINOPHEN 325 MG TAB PO PRN (09:25)
[2016-12-08] MEDS ORDERED: LEVO750T23 PO (11:00)
--- NOTE | 2016-12-08 11:02 | Discharge Instructions ---
Discharge Instructions Date of Service Dec 08, 2016. Admission Reason for Admission: Copd Exacerbation Discharge Discharge Diagnosis / Problem: copd exacerbation, legionella infection?, UTI Discharge Goals Goal(s): Decrease discomfort, Improve function Activity Recommendations Activity Limitations: resume your previous activity . Instructions / Follow-Up Instructions / Follow-Up FOLLOWUP WITH FAMILY DOCTOR ON Nov AT 10:45AM FOLLOWUP WITH UROLOGY SCHEDULED Current Hospital Diet Patient's current hospital diet: Regular Diet Discharge Diet Recommended Diet: Regular Diet Pending Studies Studies pending at discharge: no Medical Emergencies . Who to Call and When: Medical Emergencies: If at any time you feel your situation is an emergency, please call 911 immediately. . Non-Emergent Contact Non-Emergency issues call your: Primary Care Provider . . "Provider Documentation" section prepared by Ramon King. . VTE Core Measure Inpt VTE Proph given/why not?: Enoxaparin (Lovenox)SQ
[2016-12-08 11:14] VITALS: PULSE 86; O2SAT 95
[2016-12-08 11:18] VITALS: BP 113/82; PULSE 86; TEMP 37; O2SAT 95
[2016-12-08] MEDS: DOCUSATE SODIUM/SENNA 50/8.6MG TAB PO SCH (11:27)
--- NOTE | 2016-12-08 19:09 | Progress Note ---
Internal Med Progress Note Date of Service: Dec 08, 2016. Provider Documentation: SUBJECTIVE: resting comfortably no chest pain or sob afebrile no nausea want to go home Exam: General-alert and awake. Not in distress ENT-normal hearing Neck-no neck masses Lungs-cta b/l no wheezing present Heart-s1 and s2 heard regular rate and rhythm no murmurs Abdomen-soft bowel sounds present non tender no distension Extremities-no erythema no edema Neuro-alert and awake moves extremities ASSESSMENT & PLAN: 56 yo schizophrenic F with h/o IPF and COPD presents with worsening hypoxia and reports of worsening dyspnea and chest pain intermittently today. 1. Dyspnea 2/2 COPD exacerbation-on steroids nebs and abx. improving.stopped steroids 2. Chronic hypoxic respiratory failure 2/2 COPD-continue with oxygen supplementation. stable 3. h/o alcoholism-sober x 2 years. 4. Schizophrenia-cont home meds. stable 5. Depression/Anxiety-recent SI that are not currently present. stable 6. Chest pain-poss related to lung issues but risk factors for ACS. serial ce negative. stable 7. Acute urinary retention 2/[address] Follow-up as outpatient for TOV this week as planned.cx growing STENOTROPHOMONAS MALTOPHILIA. d/rashard on levaquin 8. Fungal rash-started clotrimazole cream BID. Pt has pets/cats at home. Appears consistent with a dermatophyte infection. 9. Legionella antigen positive in urine sample on Levaquin to complete course discharged home Vital Signs: Date Time Temp Pulse Resp B/P (MAP) Pulse Ox O2 Delivery O2 Flow Rate FiO2 12/08/16 11:18 37.0 86 14 95 Nasal Cannula 12/08/16 11:14 86 14 95 Nasal Cannula 2.0 12/08/16 08:11 37.0 82 18 113/82 (92) 97 Nasal Cannula 2.0 12/08/16 07:45 Nasal Cannula 2.0 12/08/16 07:18 99 14 97 Nasal Cannula 2.0 12/08/16 04:00 36.6 77 3 119/87 (98) 99 Nasal Cannula 2.0 12/08/16 04:00 Nasal Cannula 2.0 12/08/16 00:00 Nasal Cannula 2.0 12/07/16 23:45 36.5 97 24 110/75 (87) 98 Nasal Cannula 2.0 12/07/16 20:08 36.7 102 18 104/72 (83) 95 Room Air 12/07/16 20:00 Nasal Cannula 3.0 12/07/16 19:46 100 14 96 Nasal Cannula 2.0 Lab Results: Results Past 24 Hours Test 12/08/16 05:47 Range/Units White Blood Count 10.93 4.8-10.8 K/uL Red Blood Count 4.10 4.2-5.4 M/uL Hemoglobin 12.2 12.0-16.0 g/dL Hematocrit 38.3 37-47 % Mean Corpuscular Volume 93.4 80-100 fL Mean Corpuscular Hemoglobin 29.8 25-34 pg Mean Corpuscular Hemoglobin Concent 31.9 32-36 g/dl Platelet Count 211 130-400 K/uL Mean Platelet Volume 9.9 7.4-10.4 fL Neutrophils (%) (Auto) 51.6 % Lymphocytes (%) (Auto) 34.6 % Monocytes (%) (Auto) 10.0 % Eosinophils (%) (Auto) 3.0 % Basophils (%) (Auto) 0.3 % Neutrophils # (Auto) 5.65 1.4-6.5 K/uL Lymphocytes # (Auto) 3.78 1.2-3.4 K/uL Monocytes # (Auto) 1.09 0.11-0.59 K/uL Eosinophils # (Auto) 0.33 0-0.5 K/uL Basophils # (Auto) 0.03 0-0.2 K/uL RDW Standard Deviation 50.8 36.4-46.3 fL RDW Coefficient of Variation 15.0 11.5-14.5 % Immature Granulocyte % (Auto) 0.5 % Immature Granulocyte # (Auto) 0.05 0.00-0.02 K/uL Sodium Level 146 136-145 mmol/L Potassium Level 4.4 3.5-5.1 mmol/L Chloride Level 109 98-107 mmol/L Carbon Dioxide Level 31 21-32 mmol/L Anion Gap 6.0 3-11 mmol/L Blood Urea Nitrogen 21 7-18 mg/dl Creatinine 0.76 0.60-1.20 mg/dl Est Creatinine Clear Calc Drug Dose 83.6 ml/min Estimated GFR () 100.9 Estimated GFR (Non- 87.1 BUN/Creatinine Ratio 27.2 10-20 Random Glucose 87 70-99 mg/dl Calcium Level 8.8 8.5-10.1 mg/dl Magnesium Level 2.3 1.8-2.4 mg/dl
--- NOTE | 2016-12-08 19:18 | Discharge Summary ---
Discharge Summary Date of Service Dec 08, 2016. Discharge Summary Admission Date: Dec 06, 2016 at 18:27 Discharge Date: Dec 08, 2016 Discharge Disposition: Home Principal Diagnosis: copd ex uti legionella ? Secondary Diagnoses/Problems: (1) Accidental drug overdose Status: Resolved (2) Alcohol abuse Permanent Comment: no recent use attends AA Status: Resolved (3) Aspiration pneumonia Status: Resolved (4) Back pain Status: Chronic (5) Cataract Status: Chronic (6) Chronic hepatitis C Status: Chronic (7) Chronic obstructive lung disease Status: Chronic (8) Chronic paranoid schizophrenia Status: Chronic (9) Closed fracture of femur Permanent Comment: s/p ORIF Status: Resolved (10) COPD (chronic obstructive pulmonary disease) Status: Chronic (11) Deep venous thrombosis Status: Chronic (12) Depression Status: Chronic (13) Drug abuse Permanent Comment: narcotic addiction due to chronic pain attends NA Procedures: CXR: No change in the bilateral perihilar opacities which favors chronic fibrotic change. No new focal lung consolidations. Medication Reconciliation New Medications: Levofloxacin (Levaquin) 750 Mg Tab 1 TAB PO DAILY for 7 Days, #7 TAB Continued Medications: Acetaminophen (Tylenol Arthritis Ext Rel) 650 Mg Cplt 650 MG PO Q8H PRN for Pain can only have 2 grams max Albuterol Hfa (Ventolin Hfa) 200 Puffs/28441 Mcg Aers 2 PUFFS INH Q6H PRN for SOB/Wheezing Baclofen (Lioresal) 10 Mg Tab 10 MG PO TID PRN for Muscle Spasms Bupropion (Wellbutrin Sr) 100 Mg Ertab 100 MG PO QAM Calcitonin [place] (Calcitonin-[place]) 30 Novinger/3.7 Ml Soln 1 SPRAY NA QPM Cholecalciferol (D 1000) 1,000 Unit Tab 1000 UNIT PO QAM Clozapine (Clozapine) 100 Mg Tab 100 MG PO TID, TAB Docusate Sodium (Docusate Sodium) 100 Mg Cap 100 MG PO BID, CAP Escitalopram Oxalate (Escitalopram Oxalate) 20 Mg Tab 20 MG PO QAM Fenofibrate (Fenofibrate) 48 Mg Tab 48 MG PO QAM Ferrous Sulfate (Ferrous Sulfate) 325 Mg Tab 325 MG PO BIDM Fluticasone Furoate-Vilanterol (Breo Ellipta) 1 Inh Inh 1 PUFF INH QAM Fluticasone Propionate (Nasal) (Flonase Allergy Relief) 50 Mcg/Act Spr 2 SPRAYS JOSE QAM Folic Acid (Folvite) 1 Mg Tab 1 MG PO QAM, TAB Gabapentin (Neurontin) 100 Mg Cap 200 MG PO BID, CAP Lorazepam (Ativan) 1 Mg Tab 0.5 MG PO QID PRN for Anxiety/Agitation, TAB Magnesium Hydroxide (Milk Of Magnesia) 30 Ml Susp 30 ML PO DAILY PRN for Constipation Montelukast Sodium (Singulair) 10 Mg Tab 10 MG PO HS Oyster Shell (Oysco 500) 500 Mg Tab 500 MG PO BID Perphenazine (Trilafon) 4 Mg Tab 8 MG PO TID@0800,1200,1600 Ranitidine HCl (Ranitidine HCl) 150 Mg Tab 150 MG PO BID Senna/Docusate Sod (Senokot S) 1 Tab Tab 2 TAB PO 1300 Tamsulosin Hcl (Flomax) 0.4 Mg Cap 0.4 MG PO HS Umeclidinium Bangs (Incruse Ellipta) 62.5 Mcg/Inh Inh 1 PUFF PO QAM Zoledronic Acid (Reclast) 5 Mg/100 Ml Inj 1 DOSE INJ YEARLY Discontinued Medications: Naproxen (Aleve) 220 Mg Tab 220 MG PO QAM PRN for Pain Nitrofurantoin (Nitrofurantoin Monohydrat) 1 Homepack Ea 100 MG PO HS START 11/22/2016 Admission Information HPI (per Admitting provider): 56 yo F presents to the ER for the second time in 2 weeks with SOB. She reports that she has SOB with exertion and is requiring 3L of oxygen when she typically uses 2L at home. She has a h/o COPD and bronchiectasis. She reports some minor coughing and sputum changes. She also reports some intermittent chest pain just today that spontaneously resolved. It has been intermittent and she can feel it with exertion. She states it is "painful" and in the L and R breast areas when she has it. There is no radiation. Stress is a trigger for it. She has a arzate in place that was inserted as an outpatient for acute urinary retention 2/2 UTI for which she was on Macrobid and prior to that a cephalosporin. She denies any dysuria, fevers, chills, flank pain. She reports that she was to have the Arzate removed as outpatient on Wed of this week (day after tmrw). The patient also has schizophrenia and there was an initial concern that she may be suicidal. On my interview of the patient she is pleasant and does not appear depressed or down on herself. She denies active suicidal intentions. She denies a plan to hurt herself. She states that her pulse ox was running low in the high 80s and this made her concerned, also. Physical Exam (per Admitting): General Appearance: WD/WN, no apparent distress, + pertinent finding (no resp distress, tachypnea or conversational dyspnea. ) Head: normocephalic, atraumatic Eyes: normal inspection, PERRL, sclerae normal ENT: hearing grossly normal Neck: trachea midline Respiratory/Chest: lungs clear, no respiratory distress, no accessory muscle use, + crackles (throughout all nunes), + pertinent finding (TTP of anterior chest wall.) Cardiovascular: regular rate, rhythm, no edema, no gallop, no JVD, no murmur , normal peripheral pulses Abdomen/GI: normal bowel sounds, non tender, soft Back: normal inspection Extremities/Musculoskelatal: normal inspection Neurologic/Psych: no motor/sensory deficits, alert, normal mood/affect, oriented x 3 Skin: + rash (on lower back and posterior R upper thigh) Hospital Course 56 yo schizophrenic F with h/o IPF and COPD presents with worsening hypoxia and reports of worsening dyspnea and chest pain intermittently today. 1. Dyspnea 2/2 COPD exacerbation-on steroids nebs and abx. improving.stopped steroids 2. Chronic hypoxic respiratory failure 2/2 COPD-continue with oxygen supplementation. stable 3. h/o alcoholism-sober x 2 years. 4. Schizophrenia-cont home meds. stable 5. Depression/Anxiety-recent SI that are not currently present. stable 6. Chest pain-poss related to lung issues but risk factors for ACS. serial ce negative. stable 7. Acute urinary retention 2/[address] Follow-up as outpatient for TOV this week as planned.cx growing STENOTROPHOMONAS MALTOPHILIA. d/rashard on levaquin 8. Fungal rash-started clotrimazole cream BID. Pt has pets/cats at home. Appears consistent with a dermatophyte infection. 9. Legionella antigen positive in urine sample on Levaquin to complete course discharged home Total time spent on discharge = 35MINUTES This includes examination of the patient, discharge planning, medication reconciliation, and communication with other providers. Discharge Instructions Discharge Instructions Date of Service Dec 08, 2016. Admission Reason for Admission: Copd Exacerbation Discharge Discharge Diagnosis / Problem: copd exacerbation, legionella infection?, UTI Discharge Goals Goal(s): Decrease discomfort, Improve function Activity Recommendations Activity Limitations: resume your previous activity . Instructions / Follow-Up Instructions / Follow-Up FOLLOWUP WITH FAMILY DOCTOR ON Nov AT 10:45AM FOLLOWUP WITH UROLOGY SCHEDULED Current Hospital Diet Patient's current hospital diet: Regular Diet Discharge Diet Recommended Diet: Regular Diet Pending Studies Studies pending at discharge: no Medical Emergencies . Who to Call and When: Medical Emergencies: If at any time you feel your situation is an emergency, please call 911 immediately. . Non-Emergent Contact Non-Emergency issues call your: Primary Care Provider . . "Provider Documentation" section prepared by Ramon King. . VTE Core Measure Inpt VTE Proph given/why not?: Enoxaparin (Lovenox)SQ
== END 2016-12-08 13:04 | disposition home or self-care (01) | DRG 197 ==
LOC: EDBD 20:09 → C.EDC 20:11 → C.MED 12-05 00:49 → ENRESERV 12-05 01:27 → OBSVTOIN 12-06 18:27 → C.MED 12-06 20:30
PROVIDERS: ADMIT Hospitalist; ATTEND Internal Medicine
DX: J84.112 Idiopathic pulmonary fibrosis (principal); N39.0 Urinary tract infection, site not specified; J96.11 Chronic respiratory failure with hypoxia; M46.26 Osteomyelitis of vertebra, lumbar region; R45.851 Suicidal ideations; J44.1 Chronic obstructive pulmonary disease with (acute) exacerbation; B96.89 Other specified bacterial agents as the cause of diseases classified elsewhere; R07.9 Chest pain, unspecified; R33.9 Retention of urine, unspecified; B35.4 Tinea corporis; F20.9 Schizophrenia, unspecified; F41.9 Anxiety disorder, unspecified; F32.9 Major depressive disorder, single episode, unspecified; F10.21 Alcohol dependence, in remission; Z99.81 Dependence on supplemental oxygen; Z96.0 Presence of urogenital implants; Z79.51 Long term (current) use of inhaled steroids; Z79.899 Other long term (current) drug therapy

== ENCOUNTER 2016-12-23 08:51 | Emergency (ER) | payer OTHER ==
[~2016-12-23] VITALS: Ht 162.6 cm; Wt 81.6 kg
[~2016-12-23 08:51] MED LIST changes: +BUPR100T8 PO; -CEFU1TAB35 PO; +FERR1TAB62 PO; -FERR325T PO; -NAPR1TAB9 PO; -PERP1TAB11 PO; +PERP4TAB37 PO
[2016-12-23 08:59] VITALS: Ht 162.6 cm; Wt 81.6 kg
[2016-12-23] MEDS ORDERED: BACLOFEN 10 MG TAB PO STA (09:14)
--- NOTE | 2016-12-23 09:29 | EMERGENCY ROOM VISIT NOTE ---
History Report prepared by Stanley: Navjot Mar Under the Supervision of: Dr. Isacc Salinas D.O. First contact with patient: 09:05 Chief Complaint: BILATERAL LEG WEAKNESS Stated Complaint: L-LEG PAIN History of Present Illness The patient is a 56 year old female who presents to the Emergency Room with complaints of left lower extremity cramping. The patient states that she awoke this morning when she went to walk she's been noticing lower extremity cramping. She also complains of numbness and pain to her hip. She does not appear to have any weakness. She's been able to ambulate without difficulty. She denies having any headache or injury. She denies having any back pain or chest pain. The patient states that she does have shortness of breath but she states this is her baseline shortness of breath. She has not seen a provider for this pain. She doesn't a history of DVT and states the pain is somewhat similar. The patient states this discomfort is improved with remaining still and taking her baclofen. The patient states that the pain is worsened with trying to ambulate. Source of History: patient Onset: this morning Position: leg (left) Symptom Intensity: moderate Quality: cramping Timing: constant Modifying Factors (Worsening): movement Modifying Factors (Relieving): rest Associated Symptoms: + SOB (baseline), + numbness (with pain to her left hip ), No headache, No chest pain, No back pain, No weakness Review of Systems See HPI for pertinent positives & negatives. A total of 10 systems reviewed and were otherwise negative. Past Medical & Surgical Medical Problems: (1) Accidental drug overdose (2) Alcohol abuse (3) Aspiration pneumonia (4) Back pain (5) Cataract (6) Chronic hepatitis C (7) Chronic obstructive lung disease (8) Chronic paranoid schizophrenia (9) Closed fracture of femur (10) COPD (chronic obstructive pulmonary disease) (11) Deep venous thrombosis (12) Depression (13) Drug abuse (14) Gastroesophageal reflux disease (15) Hepatitis C (16) Hypoxia (17) Hysterectomy (18) Opiate abuse, continuous (19) Osteomyelitis (20) Osteoporosis (21) Past Psych Meds (22) Psychosis (23) S/P ORIF (open reduction internal fixation) fracture (24) Schizoaffective disorder (25) Seizure (26) Sepsis (27) Suicidal ideation (28) Tinea (29) Tobacco user (30) UTI (urinary tract infection) Surgical Problems: (1) H/O colonoscopy (2) History of hysterectomy (3) S/p thoracic spinal surgery (4) S/P tonsillectomy Family History FH: lung cancer GRANDMOTHER Thyroid disorder MOTHER SISTER Social History Smoking Status: Former Smoker Alcohol Use: none Drug Use: none, other Marital Status: single Housing Status: lives with family Occupation Status: disabled Current/Historical Medications Scheduled Bupropion (Wellbutrin Sr), 100 MG PO QAM Calcitonin [place]kel[place] (Calcitonin-Benkelman), 1 SPRAY NA QPM Cholecalciferol (D 1000), 1,000 UNIT PO QAM Clozapine (Clozapine), 100 MG PO TID Docusate Sodium (Docusate Sodium), 100 MG PO BID Escitalopram Oxalate (Escitalopram Oxalate), 20 MG PO QAM Fenofibrate (Fenofibrate), 48 MG PO QAM Ferrous Sulfate (Ferrous Sulfate), 325 MG PO BIDM Fluticasone Furoate-Vilanterol (Breo Ellipta), 1 PUFF INH QAM Fluticasone Propionate (Nasal) (Flonase Allergy Relief), 2 SPRAYS JOSE QAM Folic Acid (Folvite), 1 MG PO QAM Gabapentin (Neurontin), 200 MG PO BID Montelukast Sodium (Singulair), 10 MG PO HS Oyster Shell (Oysco 500), 500 MG PO BID Perphenazine (Trilafon), 8 MG PO TID@0800,1200,1600 Ranitidine HCl (Ranitidine HCl), 150 MG PO BID Senna/Docusate Sod (Senokot S), 2 TAB PO 1300 Sulfa/Trimethoprim (Bactrim Ds 800MG/160MG), 1 TAB PO BID Tamsulosin Hcl (Flomax), 0.4 MG PO HS Umeclidinium [place] (Incruse Ellipta), 1 PUFF PO QAM Zoledronic Acid (Reclast), 1 DOSE INJ YEARLY Scheduled PRN Acetaminophen (Tylenol Arthritis Ext Rel), 650 MG PO Q8H PRN for Pain Albuterol Hfa (Ventolin Hfa), 2 PUFFS INH Q6H PRN for SOB/Wheezing Baclofen (Lioresal), 10 MG PO TID PRN for Muscle Spasms Lorazepam (Ativan), 0.5 MG PO QID PRN for Anxiety/Agitation Magnesium Hydroxide (Milk Of Magnesia), 30 ML PO DAILY PRN for Constipation Allergies Coded Allergies: Hydrocodone (Verified Allergy, Severe, DROWSY, 12/23/16) Haloperidol (Verified Allergy, Unknown, "MAKES ME GO INTO BLACKOUT", 12/23) Hydroxyzine (Verified Allergy, Unknown, UNKNOWN, 12/23/16) INFO FROM [facility] (Verified Allergy, Unknown, "LEVEL CAN GET TOO HIGH", 12/23/16) Oxycodone (Verified Adverse Reaction, Severe, DROWSY, 12/04/16) Molindone (Verified Adverse Reaction, Intermediate, PT FEELS LIKE SHES "JUMPING OUT OF HER SKIN", 12/23/16) Morphine and Related (Verified Adverse Reaction, Intermediate, DROWSY, 12/01/16) px was drowsy w/ pinpoint pupils and minimally responsive. stable VS. Following Morphine IR 15mg - 3 doses in prior 24 hours. Naloxone 0.4mg admin 3 times during that period. Fluphenazine (Verified Adverse Reaction, Unknown, confusion, 12/23/16) Physical Exam Vital Signs Date Time Temp Pulse Resp B/P (MAP) Pulse Ox O2 Delivery O2 Flow Rate FiO2 12/23/16 12:17 36.6 94 16 147/92 100 12/23/16 12:02 36.6 147/92 12/23/16 11:56 94 100 12/23/16 11:31 143/91 12/23/16 11:26 95 16 100 12/23/16 11:21 95 17 100 12/23/16 11:01 132/83 12/23/16 10:51 102 19 98 12/23/16 10:36 101 22 121/81 98 Room Air 12/23/16 10:31 121/81 12/23/16 10:21 100 19 97 12/23/16 10:18 122/79 12/23/16 09:51 107 18 99 12/23/16 09:50 98 Nasal Cannula 2.0 12/23/16 09:35 105 12/23/16 09:31 123/72 12/23/16 09:23 99 Nasal Cannula 2.0 12/23/16 08:59 36.8 109 18 127/76 94 Nasal Cannula 2.0 Physical Exam GENERAL: Patient is awake alert in no acute distress patient is resting comfortably and showing no signs of anxiety EYES: The conjunctivae are clear. The pupils are round and reactive. EARS, NOSE, MOUTH AND THROAT: The nose is without any evidence of any deformity. Mucous membranes are moist tongue is midline NECK: The neck is nontender and supple. RESPIRATORY: Normal respiratory effort is noted. There is no tachypnea. There are rales noted throughout. CARDIOVASCULAR: Tachycardic rate is noted with regular rhythm. There is no definite murmur noted. GASTROINTESTINAL: The abdomen is soft. Bowel sounds are present in all quadrants. Abdomen is nontender MUSCULOSKELETAL/EXTREMITIES: There is no evidence of gross deformity full range of motion is noted in the hips and shoulders SKIN: There is no obvious evidence of any rash. There is slight ecchymosis noted over the left lower extremity. No deformities noted. There is no calf tenderness noted. NEUROLOGIC: Patient is awake alert and oriented x3 strength is symmetric patellar reflexes are 2+ bilaterally Medical Decision & Procedures ER Provider Diagnostic Interpretation: Radiology results as stated below per my review and radiologist interpretation: CHEST ONE VIEW PORTABLE CLINICAL HISTORY: EVALUATE ALTERED MENTAL STATUS/WEAKNESS dyspnea COMPARISON STUDY: 12/04/2016 FINDINGS: Unchanged exam compared to the prior study. Diffuse fibrotic change left mid to lower lung as well as right upper lung. Central catheter in the superior vena cava cava. Stable postoperative changes of the thoracic spine. Diaphragms are smooth. IMPRESSION: Diffuse bilateral chronic fibrotic change unaltered in distribution from the prior exam. No new or interval process. The above report was generated using voice recognition software. It may contain grammatical, syntax or spelling errors. Electronically signed by: Manfred Noriega M.D. 12/23/2016 9:36 AM Dictated Date/Time: 12/23/2016 9:35 AM L VENOUS DOPP LOWER EXT UNILAT CLINICAL HISTORY: swelling pain. Edema. TECHNIQUE: Venous Doppler left leg COMPARISON STUDY: None FINDINGS: Normal study IMPRESSION: Normal study The above report was generated using voice recognition software. It may contain grammatical, syntax or spelling errors. Electronically signed by: Manfred Noriega M.D. 12/23/2016 10:21 AM Dictated Date/Time: 12/23/2016 10:20 AM HEAD WITHOUT CONTRAST (CT) CT DOSE: 1074.96 mGy.cm HISTORY: Mental status change EVALUATE ALTERED MENTAL STATUS/WEAKNESS TECHNIQUE: Multiaxial CT images of the head were performed without the use of intravenous contrast. A dose lowering technique was utilized adhering to the principles of ALARA. Comparison: 10/14/2016 Findings: The paranasal sinuses and mastoid air cells are clear. The calvarium and skull base are intact. The ventricles and sulci are within normal limits. There is no mass, hematoma, midline shift, or acute infarct. Impression: No acute intracranial abnormality. The above report was generated using voice recognition software. It may contain grammatical, syntax or spelling errors. Electronically signed by: Manfred Noriega M.D. 12/23/2016 10:50 AM Dictated Date/Time: 12/23/2016 10:48 AM Laboratory Results 12/23/16 09:45 Red Blood Count 4.45, Mean Corpuscular Volume 93.9, Mean Corpuscular Hemoglobin 30.8, Mean Corpuscular Hemoglobin Concent 32.8, Mean Platelet Volume 10.2, Neutrophils (%) (Auto) 69.5, Lymphocytes (%) (Auto) 18.7, Monocytes (%) (Auto) 9.3, Eosinophils (%) (Auto) 1.9, Basophils (%) (Auto) 0.3, Neutrophils # (Auto) 6.21, Lymphocytes # (Auto) 1.67, Monocytes # (Auto) 0.83, Eosinophils # (Auto) 0.17, Basophils # (Auto) 0.03 12/23/16 09:45 Test 12/23/16 09:45 12/23/16 11:10 White Blood Count 8.94 K/uL (4.8-10.8) Red Blood Count 4.45 M/uL (4.2-5.4) Hemoglobin 13.7 g/dL (12.0-16.0) Hematocrit 41.8 % (37-47) Mean Corpuscular Volume 93.9 fL (80-100) Mean Corpuscular Hemoglobin 30.8 pg (25-34) Mean Corpuscular Hemoglobin Concent 32.8 g/dl (32-36) Platelet Count 237 K/uL (130-400) Mean Platelet Volume 10.2 fL (7.4-10.4) Neutrophils (%) (Auto) 69.5 % Lymphocytes (%) (Auto) 18.7 % Monocytes (%) (Auto) 9.3 % Eosinophils (%) (Auto) 1.9 % Basophils (%) (Auto) 0.3 % Neutrophils # (Auto) 6.21 K/uL (1.4-6.5) Lymphocytes # (Auto) 1.67 K/uL (1.2-3.4) Monocytes # (Auto) 0.83 K/uL (0.11-0.59) Eosinophils # (Auto) 0.17 K/uL (0-0.5) Basophils # (Auto) 0.03 K/uL (0-0.2) RDW Standard Deviation 50.9 fL (36.4-46.3) RDW Coefficient of Variation 14.8 % (11.5-14.5) Immature Granulocyte % (Auto) 0.3 % Immature Granulocyte # (Auto) 0.03 K/uL (0.00-0.02) Prothrombin Time 11.0 SECONDS (9.0-12.0) Prothromb Time International Ratio 1.0 (0.9-1.1) Activated Partial Thromboplast Time 25.4 SECONDS (21.0-31.0) Partial Thromboplastin Ratio 1.0 Anion Gap 4.0 mmol/L (3-11) Est Creatinine Clear Calc Drug Dose 82.3 ml/min Estimated GFR () 97.8 Estimated GFR (Non- 84.4 BUN/Creatinine Ratio 25.7 (10-20) Calcium Level 9.3 mg/dl (8.5-10.1) Magnesium Level 1.9 mg/dl (1.8-2.4) Total Bilirubin 0.3 mg/dl (0.2-1) Direct Bilirubin 0.1 mg/dl (0-0.2) Aspartate Amino Transf (AST/SGOT) 25 U/L (15-37) Alanine Aminotransferase (ALT/SGPT) 25 U/L (12-78) Alkaline Phosphatase 61 U/L (45-117) Total Creatine Kinase 53 U/L (26-192) Creatine Kinase MB 0.8 ng/ml (0.5-3.6) Creatine Kinase MB Ratio 1.5 (0-3.0) Troponin I < 0.015 ng/ml (0-0.045) Total Protein 7.6 gm/dl (6.4-8.2) Albumin 3.4 gm/dl (3.4-5.0) Thyroid Stimulating Hormone (TSH) 0.791 uIu/ml (0.300-4.500) Urine Color YELLOW Urine Appearance CLOUDY (CLEAR) Urine pH 6.5 (4.5-7.5) Urine Specific [place] 1.018 (1.000-1.030) Urine Protein NEG (NEG) Urine Glucose (UA) NEG (NEG) Urine Ketones NEG (NEG) Urine Occult Blood TRACE (NEG) Urine Nitrite NEG (NEG) Urine Bilirubin NEG (NEG) Urine Urobilinogen NEG (NEG) Urine Leukocyte Esterase LARGE (NEG) Urine WBC (Auto) >30 /hpf (0-5) Urine RBC (Auto) 0-4 /hpf (0-4) Urine Hyaline Casts (Auto) 1-5 /lpf (0-5) Urine Epithelial Cells (Auto) 5-10 /lpf (0-5) Urine Bacteria (Auto) NEG (NEG) Laboratory results per my review. Medications Administered Medications (Trade) Dose Ordered Sig/Janel Route Start Time Stop Time Status Last Admin Dose Admin Baclofen (Lioresal Tab) 10 mg ONE STAT PO 12/23/16 09:14 12/23/16 09:16 DC 12/23/16 09:45 10 MG Trimethoprim/ Sulfamethoxazole (Septra Ds 800/ 160MG Tab) 1 tab NOW STAT PO 12/23/16 11:45 12/23/16 11:46 DC 12/23/16 12:04 1 TAB Heparin Sodium (Porcine) (Heparin 100 Unit/ml 5ml Flush) 5 ml STK-MED ONCE .ROUTE 12/23/16 12:04 12/23/16 12:05 DC 12/23/16 12:07 5 ML ECG Indication: other (Lower extremity pain) Rate (beats per minute): 107 Rhythm: sinus tachycardia Findings: no ectopy, other (No acute st segment abnormalities) Comparison ECG Date: 04 Dec 2016 Change: no significant change ED Course 904: The patient was evaluated in room B5. A complete history and physical examination were performed. 14: Ordered Baclofen 10 mg PO 1145: Ordered Trimethoprim/ Sulfamethoxazole 1 tab PO 1205: Upon reevaluation, the patient is resting. I discussed the results and treatment plan with her. She verbalized agreement of the treatment plan. She was discharged home. Medical Decision Prior records reviewed and summarized above. Triage Nursing notes reviewed. The patient's history was concerning for swelling and pain in the leg. Differential diagnosis: Etiologies such as DVT, musculoskeletal, infection, joint effusion, trauma, lymphedema, idiopathic, CHF, as well as others were entertained.. The patient is a 56-year-old female who presented to the emergency department for an evaluation of left lower extremity pain. The patient describes cramping pain. She does not have any neurologic deficit. She doesn't a history of DVT so an ultrasound was obtained which did not reveal signs of DVT. The patient requested to have baclofen which she is taking in the past. This appears to help her pain. The patient is found have signs or tract infection on urinalysis. She does state that she's been having some dysuria and frequency and was recently treated for a UTI. I reviewed her most recent urine culture. She was encouraged to continue all medications as prescribed and follow-up with her primary care physician this week. Otherwise she was encouraged to return to the emergency department immediately if symptoms change worsen or the need arises. Medication Reconcilliation Current Medication List: was personally reviewed by me Blood Pressure Screening Patient's blood pressure: Normal blood pressure Blood pressure disposition: Did not require urgent referral Impression Primary Impression: Lower extremity pain Additional Impression: UTI (urinary tract infection) Scribe Attestation The scribe's documentation has been prepared under my direction and personally reviewed by me in its entirety. I confirm that the note above accurately reflects all work, treatment, procedures, and medical decision making performed by me. Departure Information Dispostion Home / Self-Care Prescriptions Sulfa/Trimethoprim (Bactrim Ds 800MG/160MG) Tab 1 TAB PO BID, #14 TAB Prov: Isacc Salinas, 12/23/16 Referrals Naveed Adam III, M.D. (PCP) Forms HOME CARE DOCUMENTATION FORM, IMPORTANT VISIT INFORMATION Patient Instructions ED UTI Cystitis Female, Leg Low Back Pain Poss Causes, My [facility] Additional Instructions Continue all medications as prescribed. Follow-up with your family this week for reevaluation. Rest and avoid any strenuous activity. Problem Qualifiers Primary Impression: Lower extremity pain Laterality: left Qualified Codes: M79.605 - Pain in left leg Additional Impression: UTI (urinary tract infection) Urinary tract infection type: acute cystitis Hematuria presence: without hematuria Qualified Codes: N30.00 - Acute cystitis without hematuria
--- NOTE | 2016-12-23 09:37 | DIAGNOSTIC IMAGING REPORT ---
CHEST ONE VIEW PORTABLE CLINICAL HISTORY: EVALUATE ALTERED MENTAL STATUS/WEAKNESS dyspnea COMPARISON STUDY: 12/04/2016 FINDINGS: Unchanged exam compared to the prior study. Diffuse fibrotic change left mid to lower lung as well as right upper lung. Central catheter in the superior vena cava cava. Stable postoperative changes of the thoracic spine. Diaphragms are smooth. IMPRESSION: Diffuse bilateral chronic fibrotic change unaltered in distribution from the prior exam. No new or interval process. The above report was generated using voice recognition software. It may contain grammatical, syntax or spelling errors. Electronically signed by: Manfred Noriega M.D. 12/23/2016 9:36 AM Dictated Date/Time: 12/23/2016 9:35 AM
[2016-12-23 09:50] VITALS: O2SAT 98
[2016-12-23 09:57] LABS: BASO % 0.3 %; BASO ABS # 0.03 K/uL (0-0.2); COMPLETE YES; EOS % 1.9 %; HEMATOCRIT 41.8 % (37-47); IG% 0.3 %; LYMPH % 18.7 %; LYMPH ABS # 1.67 K/uL (1.2-3.4); MEAN CELL VOLUME 93.9 fL (80-100); MEAN CORPUSCULAR HEMOGLOBIN 30.8 pg (25-34); MEAN CORPUSCULAR HGB CONC 32.8 g/dl (32-36); MEAN PLATELET VOLUME 10.2 fL (7.4-10.4); MONO % 9.3 %; NEUT % 69.5 %; PLATELET COUNT 237 K/uL (130-400); RED BLOOD COUNT 4.45 M/uL (4.2-5.4); WHITE BLOOD COUNT 8.94 K/uL (4.8-10.8)
[2016-12-23 10:15] LABS: ALT/SGPT 25 U/L (12-78); AST/SGOT 25 U/L (15-37); BLOOD UREA NITROGEN 20 mg/dl (7-18); BUN/CREATININE RATIO 25.7 (10-20); CALCIUM 9.3 mg/dl (8.5-10.1); CARBON DIOXIDE 29 mmol/L (21-32); CHLORIDE 109 mmol/L (98-107); CREATININE 0.78 mg/dl (0.60-1.20); GLUCOSE 109 mg/dl (70-99); MAGNESIUM 1.9 mg/dl (1.8-2.4); POTASSIUM 3.9 mmol/L (3.5-5.1); SODIUM 142 mmol/L (136-145)
--- NOTE | 2016-12-23 10:22 | DIAGNOSTIC IMAGING REPORT ---
L VENOUS DOPP LOWER EXT UNILAT CLINICAL HISTORY: swelling pain. Edema. TECHNIQUE: Venous Doppler left leg COMPARISON STUDY: None FINDINGS: Normal study IMPRESSION: Normal study The above report was generated using voice recognition software. It may contain grammatical, syntax or spelling errors. Electronically signed by: Manfred Noriega M.D. 12/23/2016 10:21 AM Dictated Date/Time: 12/23/2016 10:20 AM
[2016-12-23 10:25] LABS: ALKALINE PHOSPHATASE 61 U/L (45-117); CKMB/CK RATIO 1.5 (0-3.0); THYROID STIMULATING HORMONE 0.791 uIu/ml (0.300-4.500)
--- NOTE | 2016-12-23 10:51 | DIAGNOSTIC IMAGING REPORT ---
HEAD WITHOUT CONTRAST (CT) CT DOSE: 1074.96 mGy.cm HISTORY: Mental status change EVALUATE ALTERED MENTAL STATUS/WEAKNESS TECHNIQUE: Multiaxial CT images of the head were performed without the use of intravenous contrast. A dose lowering technique was utilized adhering to the principles of ALARA. Comparison: 10/14/2016 Findings: The paranasal sinuses and mastoid air cells are clear. The calvarium and skull base are intact. The ventricles and sulci are within normal limits. There is no mass, hematoma, midline shift, or acute infarct. Impression: No acute intracranial abnormality. The above report was generated using voice recognition software. It may contain grammatical, syntax or spelling errors. Electronically signed by: Manfred Noriega M.D. 12/23/2016 10:50 AM Dictated Date/Time: 12/23/2016 10:48 AM
[2016-12-23 11:37] LABS: URINE APPEARANCE CLOUDY (CLEAR); URINE BILIRUBIN NEG (NEG); URINE COLOR YELLOW; URINE NITRITE NEG (NEG); URINE PH 6.5 (4.5-7.5); URINE SPECIFIC GRAVITY 1.018 (1.000-1.030); UROBILINOGEN NEG (NEG)
[2016-12-23 11:38] LABS: MANUAL MICROSCOPIC REQUIRED? NO; REVIEW REQ? NO
[2016-12-23] MEDS ORDERED: SULFAMETHOXAZOLE/TRIMETHOPRIM DS 800/160MG TAB PO STA (11:45)
[2016-12-23] MEDS ORDERED: SULF800T23 PO (11:46)
[2016-12-23 12:17] VITALS: BP 147/92; PULSE 94; TEMP 36.6; O2SAT 100
== END 2016-12-23 12:18 | disposition home or self-care (01) ==
LOC: EDBD 08:51 → C.EDB 08:52
DX: M79.605 Pain in left leg (principal); N30.00 Acute cystitis without hematuria; R00.0 Tachycardia, unspecified; H26.9 Unspecified cataract; B18.2 Chronic viral hepatitis C; J44.9 Chronic obstructive pulmonary disease, unspecified; F20.0 Paranoid schizophrenia; F32.9 Major depressive disorder, single episode, unspecified; K21.9 Gastro-esophageal reflux disease without esophagitis; F10.10 Alcohol abuse, uncomplicated; F11.10 Opioid abuse, uncomplicated; M81.0 Age-related osteoporosis without current pathological fracture; M86.9 Osteomyelitis, unspecified; F25.9 Schizoaffective disorder, unspecified; R56.9 Unspecified convulsions; Z86.718 Personal history of other venous thrombosis and embolism; Z87.891 Personal history of nicotine dependence; Z90.710 Acquired absence of both cervix and uterus; Z80.1 Family history of malignant neoplasm of trachea, bronchus and lung

== ENCOUNTER → 2017-01-08 | Outpatient (CLI) | payer OTHER ==
[~2017-01-08] MED LIST changes: +CIPR-255 PO; +PHEN-876 PO; +RISP1TAB68 PO; +RSP1 PO; +SENN1TAB65 PO; +SULF800T23 PO
--- NOTE | 2017-01-08 11:59 | DIAGNOSTIC IMAGING REPORT ---
RENAL ULTRASOUND HISTORY: N39.0 Urinary tract infection R33.9 Retention of urine N31.9 Neuro COMPARISON: Abdomen and pelvis CT 11/21/2015. FINDINGS: Right kidney: 10.4 cm. The lower pole is partially obscured. No hydronephrosis. Normal corticomedullary differentiation and cortical thickness. Left kidney: 10.7 cm. Lobular contour to the kidney, unchanged. No hydronephrosis. Normal corticomedullary differentiation and cortical thickness. Bladder: Bilateral ureteral jets are identified. Diffuse bladder trabeculation, unchanged. Tiny diverticulum within the right posterior bladder, unchanged. IMPRESSION: 1. No hydronephrosis. 2. Diffuse bladder trabeculation, unchanged. Electronically signed by: Uriel Talley M.D. 01/08/2017 11:57 AM Dictated Date/Time: 01/08/2017 11:55 AM
== END | disposition home or self-care (01) ==
LOC: C.ULTR 10:01
PROVIDERS: ATTEND Urology
DX: N31.9 Neuromuscular dysfunction of bladder, unspecified (principal); N39.0 Urinary tract infection, site not specified; R33.9 Retention of urine, unspecified

== ENCOUNTER 2017-01-10 02:54 | Observation (INO) | payer OTHER ==
[~2017-01-10] VITALS: Ht 165.1 cm; Wt 73.7 kg
[~2017-01-10 02:54] MED LIST changes: -CIPR-255 PO; -RISP1TAB68 PO; -RSP1 PO; -SENN1TAB65 PO
[2017-01-10] MEDS ORDERED: SENN1TAB65 PO (03:03)
[2017-01-10] MEDS ORDERED: RSP1 PO (03:03)
[2017-01-10] MEDS ORDERED: RISP1TAB68 PO (04:06)
[2017-01-10] MEDS ORDERED: ACETAMINOPHEN/CODEINE 300/30MG TAB PO ONE (05:15)
[2017-01-10] MEDS ORDERED: BACLOFEN TAB 20 MG TAB PO ONE (05:15)
--- NOTE | 2017-01-10 06:54 | DIAGNOSTIC IMAGING REPORT ---
CT HEAD WITHOUT CONTRAST (CT) CLINICAL HISTORY: Neck pain status post trauma COMPARISON STUDY: 12/23/2016 TECHNIQUE: Axial CT of the brain is performed from the vertex to the skull base. IV contrast was not administered for this examination. A dose lowering technique was utilized adhering to the principles of ALARA. CT DOSE: 974.06 mGy.cm FINDINGS: No intra or extra-axial mass lesions are visualized. There is no CT evidence of acute cortical infarction. There is no evidence of midline shift. No calvarial fractures are visualized. There is a sliver-like hyperdensity along the anterior falx. This was not visualized the prior study. Trace subdural hematoma cannot be excluded. There is no evidence of pathologic ventricular dilatation. There is no evidence of acute sinusitis IMPRESSION: 1. Sliver-like hyperdensity along the anterior falx. A trace subdural hematoma cannot be excluded. Electronically signed by: Bismark Galdamez M.D. 01/10/2017 6:52 AM Dictated Date/Time: 01/10/2017 6:50 AM
--- NOTE | 2017-01-10 06:56 | DIAGNOSTIC IMAGING REPORT ---
CT OF THE CERVICAL SPINE CLINICAL HISTORY: Neck pain status post trauma COMPARISON STUDY: 03/15/2016 CT DOSE: TECHNIQUE: CT scan of the cervical spine was performed from the skull base to the thoracic inlet. Images are reviewed in the axial, sagittal, and coronal planes. IV contrast was not administered for this examination. A dose lowering technique was utilized adhering to the principles of ALARA. FINDINGS: The visualized portions of the lung apices reveal no evidence of pneumothorax. There are nonspecific interstitial opacities the lung apices. The prevertebral soft tissues are normal. No fractures or subluxations are visualized. There are multilevel degenerative changes IMPRESSION: No acute fractures or subluxations identified. Electronically signed by: Bismark Galdamez M.D. 01/10/2017 6:55 AM Dictated Date/Time: 01/10/2017 6:53 AM
--- NOTE | 2017-01-10 07:40 | DIAGNOSTIC IMAGING REPORT ---
LUMBAR SPINE 5 VIEWS HISTORY: Fall. Low back pain COMPARISON: Lumbar spine 03/17/2015. FINDINGS: There is no acute fracture. Postoperative changes within the bilateral hips. Mild dextroscoliosis of the lumbar spine. The sacrum appears intact. Posterior fusion of the lower thoracic spine with multiple compression deformities.. Grade I anterolisthesis of L4 and L5, unchanged. Moderate to space narrowing at L4-L5 and L5-S1. Moderate facet degenerative changes within the lower lumbar spine. IMPRESSION: 1. No acute fractures identified within the lumbar spine. 2. Degenerative changes within the lower lumbar spine, unchanged. 3. Grade I anterolisthesis of L4 on L5, unchanged. 4. Postoperative changes seen within the lower thoracic spine with multiple old compression deformities, unchanged. Electronically signed by: Uriel Talley M.D. 01/10/2017 7:39 AM Dictated Date/Time: 01/10/2017 7:36 AM
--- NOTE | 2017-01-10 07:46 | EMERGENCY ROOM VISIT NOTE ---
ED Visit Note First contact with patient: 02:58 I have personally seen and evaluated the patient with the PA. I agree with the diagnosis and management decisions and have been personally involved in the case. The head CT read has been reviewed. A repeat head CT will be ordered [address] Please see Raul Nguyen PA-C's notes for further details of the history, physical and visit.
--- NOTE | 2017-01-10 08:17 | EMERGENCY ROOM VISIT NOTE ---
History First contact with patient: 02:58 Chief Complaint: FALL Stated Complaint: fall/back pain History of Present Illness The patient is a 56 year old female who presents to the Emergency Room with complaints of head, neck, back pain after a fall that occurred about 35 minutes ago. The patient states that she got up to use the bathroom tonight, and tripped over her oxygen tank. The patient states this was a ground-level fall, and she is unsure what she hit. The patient did not lose consciousness and does not have bleeding. The patient states that she is going on vacation later today, and is concerned because of her fall and pain. The patient does not take blood thinners. She is not complaining of lightheadedness, dizziness, chest pain, chest tightness, or shortness of breath. No numbness or paresthesias. She rates her discomfort a 5/10. Review of Systems More than 10 systems were reviewed and otherwise negative with the exception of history of present illness. Past Medical/Surgical History Medical Problems: (1) Accidental drug overdose (2) Alcohol abuse (3) Aspiration pneumonia (4) Back pain (5) Cataract (6) Chronic hepatitis C (7) Chronic obstructive lung disease (8) Chronic paranoid schizophrenia (9) Closed fracture of femur (10) COPD (chronic obstructive pulmonary disease) (11) Deep venous thrombosis (12) Depression (13) Drug abuse (14) Gastroesophageal reflux disease (15) Hepatitis C (16) Hypoxia (17) Hysterectomy (18) Opiate abuse, continuous (19) Osteomyelitis (20) Osteoporosis (21) Past Psych Meds (22) Psychosis (23) S/P ORIF (open reduction internal fixation) fracture (24) Schizoaffective disorder (25) Seizure (26) Sepsis (27) Suicidal ideation (28) Tinea (29) Tobacco user (30) UTI (urinary tract infection) Surgical Problems: (1) H/O colonoscopy (2) History of hysterectomy (3) S/p thoracic spinal surgery (4) S/P tonsillectomy Family History FH: lung cancer GRANDMOTHER Thyroid disorder MOTHER SISTER Social History Smoking Status: Former Smoker Alcohol Use: none Drug Use: none, other Marital Status: single Housing Status: lives with family Occupation Status: disabled Current/Historical Medications Scheduled Bupropion (Wellbutrin Sr), 100 MG PO QAM Calcitonin Malone (Calcitonin-Malone), 1 SPRAY NA QPM Cholecalciferol (D 1000), 1,000 UNIT PO QAM Clozapine (Clozapine), 100 MG PO TID Docusate Sodium (Docusate Sodium), 100 MG PO BID Escitalopram Oxalate (Escitalopram Oxalate), 20 MG PO QAM Fenofibrate (Fenofibrate), 48 MG PO QAM Ferrous Sulfate (Ferrous Sulfate), 325 MG PO BIDM Fluticasone Furoate-Vilanterol (Breo Ellipta), 1 PUFF INH QAM Fluticasone Propionate (Nasal) (Flonase Allergy Relief), 2 SPRAYS JOSE QAM Folic Acid (Folvite), 1 MG PO QAM Gabapentin (Neurontin), 200 MG PO BID Montelukast Sodium (Singulair), 10 MG PO HS Oyster Shell (Oysco 500), 500 MG PO BID Perphenazine (Trilafon), 8 MG PO TID@0800,1200,1600 Phenazopyridine HCl (Pyridium), 200 MG PO TID Ranitidine HCl (Ranitidine HCl), 150 MG PO BID Risperidone (Risperidone), 2 MG PO HS Risperidone (Risperdal), 1 MG PO QAM Senna/Docusate Sod (Senokot S), 2 TAB PO 1300 Sennosides-Docusate Sodium (Senna Plus), 1 TAB PO BID Tamsulosin Hcl (Flomax), 0.4 MG PO HS Umeclidinium Magnolia (Incruse Ellipta), 1 PUFF PO QAM Zoledronic Acid (Reclast), 1 DOSE INJ YEARLY Scheduled PRN Acetaminophen (Tylenol Arthritis Ext Rel), 650 MG PO Q8H PRN for Pain Albuterol Hfa (Ventolin Hfa), 2 PUFFS INH Q6H PRN for SOB/Wheezing Baclofen (Lioresal), 10 MG PO TID PRN for Muscle Spasms Lorazepam (Ativan), 0.5 MG PO QID PRN for Anxiety/Agitation Physical Exam Vital Signs Date Time Temp Pulse Resp B/P (MAP) Pulse Ox O2 Delivery O2 Flow Rate FiO2 01/10/17 07:16 82 01/10/17 06:58 86 14 115/89 100 Room Air 01/10/17 05:08 84 18 111/88 99 Nasal Cannula 3.0 01/10/17 03:48 82 16 120/90 100 Nasal Cannula 3.0 01/10/17 03:08 86 01/10/17 03:00 36.4 82 16 145/86 93 Nasal Cannula 3.0 Physical Exam VITALS: Vitals are noted on the nurse's note and reviewed by myself. Vital signs stable. GENERAL: White female, who is in no acute distress and resting comfortably. Patient is cooperative with the examination. GCS 15. HEAD: Normocephalic atraumatic. EARS: External ear normal. External auditory canals clear, tympanic membranes pearly guerra without erythema or effusion bilaterally. No hemotympanum EYES: Pupils equal round and reactive to light and accommodation. Conjunctivae without injection, sclerae without icterus. Extraocular movements intact. No hyphema NECK: Supple without nuchal rigidity. No lymphadenopathy. No thyromegaly. Cervical spine is nontender. HEART: Regular rate and rhythm without murmurs gallops or rubs. LUNGS: Distant breath sounds bilateral but otherwise clear NEURO: Patient was alert and oriented to person place and time. CN II through XII grossly intact. Medical Decision & Procedures ER Provider Diagnostic Interpretation: CT HEAD WITHOUT CONTRAST (CT) CLINICAL HISTORY: Neck pain status post trauma COMPARISON STUDY: 12/23/2016 TECHNIQUE: Axial CT of the brain is performed from the vertex to the skull base. IV contrast was not administered for this examination. A dose lowering technique was utilized adhering to the principles of ALARA. CT DOSE: 974.06 mGy.cm FINDINGS: No intra or extra-axial mass lesions are visualized. There is no CT evidence of acute cortical infarction. There is no evidence of midline shift. No calvarial fractures are visualized. There is a sliver-like hyperdensity along the anterior falx. This was not visualized the prior study. Trace subdural hematoma cannot be excluded. There is no evidence of pathologic ventricular dilatation. There is no evidence of acute sinusitis IMPRESSION: 1. Sliver-like hyperdensity along the anterior falx. A trace subdural hematoma cannot be excluded. CT OF THE CERVICAL SPINE CLINICAL HISTORY: Neck pain status post trauma COMPARISON STUDY: 03/15/2016 CT DOSE: TECHNIQUE: CT scan of the cervical spine was performed from the skull base to the thoracic inlet. Images are reviewed in the axial, sagittal, and coronal planes. IV contrast was not administered for this examination. A dose lowering technique was utilized adhering to the principles of ALARA. FINDINGS: The visualized portions of the lung apices reveal no evidence of pneumothorax. There are nonspecific interstitial opacities the lung apices. The prevertebral soft tissues are normal. No fractures or subluxations are visualized. There are multilevel degenerative changes IMPRESSION: No acute fractures or subluxations identified. LUMBAR SPINE 5 VIEWS HISTORY: Fall. Low back pain COMPARISON: Lumbar spine 03/17/2015. FINDINGS: There is no acute fracture. Postoperative changes within the bilateral hips. Mild dextroscoliosis of the lumbar spine. The sacrum appears intact. Posterior fusion of the lower thoracic spine with multiple compression deformities.. Grade I anterolisthesis of L4 and L5, unchanged. Moderate to space narrowing at L4-L5 and L5-S1. Moderate facet degenerative changes within the lower lumbar spine. IMPRESSION: 1. No acute fractures identified within the lumbar spine. 2. Degenerative changes within the lower lumbar spine, unchanged. 3. Grade I anterolisthesis of L4 on L5, unchanged. 4. Postoperative changes seen within the lower thoracic spine with multiple old compression deformities, unchanged. Medications Administered Medications (Trade) Dose Ordered Sig/Janel Route Start Time Stop Time Status Last Admin Dose Admin Acetaminophen/ Codeine Phosphate (Tylenol w/ Codeine #3 Tab) 2 tab NOW ONCE PO 01/10/17 05:15 01/10/17 05:16 DC 01/10/17 05:27 2 TAB Baclofen (Lioresal Tab) 10 mg NOW ONCE PO 01/10/17 05:15 01/10/17 05:16 DC 01/10/17 05:27 10 MG ED Course Physical exam and history were performed. Nursing notes, EMR, and Medication List were personally reviewed. Patient appears to have suffered a mechanical fall at home with head, neck, back pain. The patient appears to be at her baseline on exam. She does not appear to have neurologic deficit. GCS is 15. CT scan of the head and neck was ordered, as well as plain films of the back. The patient's CT scans are as above and the patient may have a very small subdural. We did discuss this finding with radiology, and the recommendation was for a repeat [address] scan of the head. The neck and back images appear without significant findings. The patient was medicated as above. The patient was reevaluated multiple times with course of her stay. She continued with normal mentation and no significant neurologic deficit. The patient remained in stable condition until the time of shift change, when her case was discussed with my colleague, Nicole Garcia PA-C. Please see Ms Garcia's dictation regarding further patient course, plan, and disposition pending repeat CT scan. The chart was completed utilizing [employer] Voice Recognition Software. Grammatical errors, random word insertions, pronoun errors, and incomplete sentences are an occasional consequence of this system due to software limitations, ambient noise, and hardware issues. Any formal questions or concerns about the content, text, or information contained within the body of this dictation should be directly addressed to the provider for clarification. . Medical Decision Differential diagnosis: Etiologies such as concussion, contusion, fracture, subdural hematoma, epidural hematoma, intraparenchymal hemorrhage, as well as other traumatic pathologies were entertained. Impression Primary Impression: Fall Additional Impression: Head injury Departure Information Referrals Naveed Adam III, M.D. (PCP) Patient Instructions [facility] Problem Qualifiers
--- NOTE | 2017-01-10 09:21 | DIAGNOSTIC IMAGING REPORT ---
CT HEAD WITHOUT CONTRAST (CT) CLINICAL HISTORY: Equivocal tiny subdural hematoma COMPARISON STUDY: Earlier in the day TECHNIQUE: Axial CT of the brain is performed from the vertex to the skull base. IV contrast was not administered for this examination. A dose lowering technique was utilized adhering to the principles of ALARA. CT DOSE: 1225.46 mGy.cm FINDINGS: There is no CT evidence of acute cortical infarction. There is no evidence of parenchymal or subarachnoid hemorrhage. There is a persistent equivocal sliver-like anterior parafalcine subdural hematoma. This is not enlarged. There is no midline shift. There is no evidence of pathologic ventricular dilatation. There is no evidence of acute sinusitis IMPRESSION: No change from the preceding study. There is a persistent equivocal trace anterior parafalcine subdural. Electronically signed by: Bismark Galdamez M.D. 01/10/2017 9:19 AM Dictated Date/Time: 01/10/2017 9:16 AM
[2017-01-10 10:06] LABS: BASO % 0.6 %; BASO ABS # 0.05 K/uL (0-0.2); COMPLETE YES; EOS % 3.6 %; HEMATOCRIT 46.2 % (37-47); IG% 0.2 %; LYMPH % 25.4 %; LYMPH ABS # 2.18 K/uL (1.2-3.4); MEAN CORPUSCULAR HGB CONC 32.3 g/dl (32-36); MEAN PLATELET VOLUME 10.5 fL (7.4-10.4); MONO % 12.5 %; NEUT % 57.7 %; PLATELET COUNT 203 K/uL (130-400); RED BLOOD COUNT 4.81 M/uL (4.2-5.4); WHITE BLOOD COUNT 8.58 K/uL (4.8-10.8)
[2017-01-10 10:18] LABS: PROTHROMBIN TIME (PATIENT) 10.9 SECONDS (9.0-12.0)
[2017-01-10 10:27] LABS: BUN/CREATININE RATIO 20.7 (10-20); CREATININE 0.83 mg/dl (0.60-1.20); POTASSIUM 4.6 mmol/L (3.5-5.1)
[2017-01-10 10:30] LABS: ALB/GLOB RATIO 0.8 (0.9-2)
--- NOTE | 2017-01-10 11:10 | EMERGENCY ROOM VISIT NOTE ---
ED Visit Note First contact with patient: 10:19 ED NOTE: Care of this 56-year-old white female patient was signed out to me from Raul Nguyen PA-C, at change of shift. Please refer to his dictation for the complete history, physical exam and ED course to this point. Briefly, patient is a 56- year-old white female who sustained a mechanical fall at home early this morning , striking her head. Initial CT scan was concerning for a small subdural hematoma. Repeat six-hour CT was recommended. This was performed at 0900, which showed a persistent equivocal trace anterior parafalcine subdural. CBC with differential, coags and CMP were drawn. CT scan findings were reviewed with the attending physician, and with the patient at length. H&H is 14.9 and 46.2, platelet count 203,000. Coags are unremarkable. Chemistries are without gross abnormality. The patient was discussed with the [facility] hospitalist service, ROSALIE Olson. At her request, I did discuss the patient with neurology, Dr. Desouza, who felt that given the small size of the potential bleed , and the unchanged CT, the patient could be watched here at our facility. Please refer to the hospitalist H&P and admission orders for further information CT HEAD WITHOUT CONTRAST (CT) CLINICAL HISTORY: Equivocal tiny subdural hematoma COMPARISON STUDY: Earlier in the day TECHNIQUE: Axial CT of the brain is performed from the vertex to the skull base. IV contrast was not administered for this examination. A dose lowering technique was utilized adhering to the principles of ALARA. CT DOSE: 1225.46 mGy.cm FINDINGS: There is no CT evidence of acute cortical infarction. There is no evidence of parenchymal or subarachnoid hemorrhage. There is a persistent equivocal sliver-like anterior parafalcine subdural hematoma. This is not enlarged. There is no midline shift. There is no evidence of pathologic ventricular dilatation. There is no evidence of acute sinusitis IMPRESSION: No change from the preceding study. There is a persistent equivocal trace anterior parafalcine subdural. DIAGNOSIS: Subdural hematoma
[2017-01-10] MEDS ORDERED: ACETAMINOPHEN 325 MG TAB PO STA (11:53)
[2017-01-10] MEDS ORDERED: ALBUTEROL HFA 8 GM INHALER INH PRN (13:00)
[2017-01-10 14:00] VITALS: BP 111/75; TEMP 36.4; Ht 165.1 cm; Wt 73.7 kg
[2017-01-10] MEDS ORDERED: IV FLUIDS COMPLETED PRN (14:00)
--- NOTE | 2017-01-10 14:16 | History and Physical ---
History & Physical Date & Time of Service: Jan 10, 2017 at 14:12 Chief Complaint: Back Pain, Fall, Head Injury Primary Care Physician: Naveed Adam III, M.D. History of Present Illness Source: patient This is a 56 year old F patient with history Schizophrenia/Schizoaffective disorder with multiple musculoskeletal surgeries in the past and on chronic pain medications who had a mechanical fall after tripping. Patient's imaging in the ER did not show acute fractures of the neck or spine. However, it unclear on initial head CT whether patient may have had a trace subdural hematoma. Subsequent CT head 4 hours later in the ED with radiology interpretation of persistent but still equivocal sliver-like anterior parafalcine subdural hematoma. Patient did not have focal neurological deficits on exams by ED provider. ED providers discussed the case with neurology consultation and while awaiting full recommendations, patient was placed under observation under hospitalist medical service. On exam by hospitalist physician, patient also did not have focal neurological deficits. However, review of patient's medication showed multiple psychiatric related medications and pain medications and with patient's reported history of back and leg surgeries, patient may also require physical and occupational therapy to prevent future falls. Patient also have complaints of persistent chronic lower back and hip pain without acute physical exam findings for fractures. Past Medical/Surgical History Medical Problems: (1) Accidental drug overdose Status: Resolved (2) Alcohol abuse Permanent Comment: no recent use attends AA Status: Resolved (3) Aspiration pneumonia Status: Resolved (4) Back pain Status: Chronic (5) Cataract Status: Chronic (6) Chronic hepatitis C Status: Chronic (7) Chronic obstructive lung disease Status: Chronic (8) Chronic paranoid schizophrenia Status: Chronic (9) Closed fracture of femur Permanent Comment: s/p ORIF Status: Resolved (10) COPD (chronic obstructive pulmonary disease) Status: Chronic (11) Deep venous thrombosis Status: Chronic (12) Depression Status: Chronic (13) Drug abuse Permanent Comment: narcotic addiction due to chronic pain attends NA Status: Resolved (14) Gastroesophageal reflux disease Status: Chronic (15) Hepatitis C Status: Chronic (16) Hypoxia Status: Chronic (17) Hysterectomy Status: Resolved (18) Osteoporosis Status: Chronic (19) S/P ORIF (open reduction internal fixation) fracture Permanent Comment: femur Status: Chronic (20) Schizoaffective disorder Status: Chronic (21) Seizure Status: Resolved (22) Tinea Status: Resolved (23) Tobacco user Status: Chronic Surgical Problems: (1) H/O colonoscopy Status: Chronic (2) History of hysterectomy Status: Chronic (3) S/p thoracic spinal surgery Permanent Comment: 07/07/2015; [place] [facility] [place]: Chronic (4) S/P tonsillectomy Status: Chronic Family History FH: lung cancer GRANDMOTHER Thyroid disorder MOTHER SISTER Social History Smoking Status: Former Smoker Drug Use: none, other Marital Status: single Housing status: lives with family Occupational Status: disabled Immunizations History of Influenza Vaccine: N/A Influenza Vaccine Date: Dec 03, 2012 History of Tetanus Vaccine?: utd Tetanus Immunization Date: Nov 22, 2006 History of Pneumococcal: Yes Pneumococcal Date: Dec 03, 2010 History of Hepatitis B Vaccine: Yes Hepatitis Immunization Date: Dec 03, 1997 Multi-Drug Resistant Organisms History of MDRO: No Allergies Coded Allergies: Hydrocodone (Verified Allergy, Severe, DROWSY, 01/10/17) Haloperidol (Verified Allergy, Unknown, "MAKES ME GO INTO BLACKOUT", 01/10) Hydroxyzine (Verified Allergy, Unknown, UNKNOWN, 01/10/17) INFO FROM [facility] [place] (Verified Allergy, Unknown, "LEVEL CAN GET TOO HIGH", 01/10/17) Oxycodone (Verified Adverse Reaction, Severe, DROWSY, 01/10/17) Molindone (Verified Adverse Reaction, Intermediate, PT FEELS LIKE SHES "JUMPING OUT OF HER SKIN", 01/10/17) Morphine and Related (Verified Adverse Reaction, Intermediate, DROWSY, ) px was drowsy w/ pinpoint pupils and minimally responsive. stable VS. Following Morphine IR 15mg - 3 doses in prior 24 hours. Naloxone 0.4mg admin 3 times during that period. Fluphenazine (Verified Adverse Reaction, Unknown, confusion, 01/10/17) Home Medications Scheduled Bupropion (Wellbutrin Sr), 100 MG PO QAM Calcitonin [place] (Calcitonin-[place]), 1 SPRAY NA QPM Cholecalciferol (D 1000), 1,000 UNIT PO QAM Clozapine (Clozapine), 100 MG PO TID Docusate Sodium (Docusate Sodium), 100 MG PO BID Escitalopram Oxalate (Escitalopram Oxalate), 20 MG PO QAM Fenofibrate (Fenofibrate), 48 MG PO QAM Ferrous Sulfate (Ferrous Sulfate), 325 MG PO BIDM Fluticasone Furoate-Vilanterol (Breo Ellipta), 1 PUFF INH QAM Fluticasone Propionate (Nasal) (Flonase Allergy Relief), 2 SPRAYS JOSE QAM Folic Acid (Folvite), 1 MG PO QAM Gabapentin (Neurontin), 200 MG PO BID Montelukast Sodium (Singulair), 10 MG PO HS Oyster Shell ([place] 500), 500 MG PO BID Perphenazine (Trilafon), 8 MG PO TID@0800,1200,1600 Phenazopyridine HCl (Pyridium), 200 MG PO TID Ranitidine HCl (Ranitidine HCl), 150 MG PO BID Risperidone (Risperidone), 2 MG PO HS Risperidone (Risperdal), 1 MG PO QAM Senna/Docusate Sod (Senokot S), 2 TAB PO 1300 Sennosides-Docusate Sodium (Senna Plus), 1 TAB PO BID Tamsulosin Hcl (Flomax), 0.4 MG PO HS Umeclidinium [place] (Incruse Ellipta), 1 PUFF PO QAM Zoledronic Acid (Reclast), 1 DOSE INJ YEARLY Scheduled PRN Acetaminophen (Tylenol Arthritis Ext Rel), 650 MG PO Q8H PRN for Pain Albuterol Hfa (Ventolin Hfa), 2 PUFFS INH Q6H PRN for SOB/Wheezing Baclofen (Lioresal), 10 MG PO TID PRN for Muscle Spasms Lorazepam (Ativan), 0.5 MG PO QID PRN for Anxiety/Agitation Review of Systems Constitutional: No fever Eyes: No worsening of vision ENT: No hearing loss Respiratory: No cough, No shortness of breath Cardiovascular: No chest pain Abdomen: No nausea, No vomiting, No diarrhea, No constipation Musculoskeletal: + joint pain, + muscle pain (back pain), No swelling, No calf pain Genitourinary - Female: No dysuria Neurologic: No paralysis, No numbness/tingling Psychiatric: No substance abuse Endocrine: No fatigue Integumentary: No rash Physical Exam Vital Signs Date Time Temp Pulse Resp B/P (MAP) Pulse Ox O2 Delivery O2 Flow Rate FiO2 01/10/17 12:45 98 16 111/75 94 Nasal Cannula 2.0 01/10/17 10:45 82 20 117/94 99 Room Air 01/10/17 08:45 85 19 121/97 99 Room Air 01/10/17 07:16 82 01/10/17 06:58 86 14 115/89 100 Room Air 01/10/17 05:08 84 18 111/88 99 Nasal Cannula 3.0 01/10/17 03:48 82 16 120/90 100 Nasal Cannula 3.0 01/10/17 03:08 86 01/10/17 03:00 36.4 82 16 145/86 93 Nasal Cannula 3.0 General Appearance: WD/WN, no apparent distress Head: normocephalic, atraumatic Eyes: normal inspection, PERRL, EOMI, sclerae normal ENT: normal ENT inspection, hearing grossly normal, TMs normal, pharynx normal Respiratory/Chest: chest non-tender, lungs clear, normal breath sounds, no respiratory distress, no accessory muscle use Cardiovascular: regular rate, rhythm, no edema, no JVD, normal peripheral pulses Abdomen/GI: normal bowel sounds, non tender, soft Back: normal inspection, no CVA tenderness, no muscle spasm, normal range of motion Extremities/Musculoskelatal: normal inspection, no calf tenderness, no pedal edema, normal range of motion 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, no motor/sensory deficits, alert, normal mood/affect, oriented x 3 Skin: normal color, warm/dry Diagnostics Laboratory Results Results Past 24 Hours Test 01/10/17 09:50 Range/Units White Blood Count 8.58 4.8-10.8 K/uL Red Blood Count 4.81 4.2-5.4 M/uL Hemoglobin 14.9 12.0-16.0 g/dL Hematocrit 46.2 37-47 % Mean Corpuscular Volume 96.0 80-100 fL Mean Corpuscular Hemoglobin 31.0 25-34 pg Mean Corpuscular Hemoglobin Concent 32.3 32-36 g/dl Platelet Count 203 130-400 K/uL Mean Platelet Volume 10.5 7.4-10.4 fL Neutrophils (%) (Auto) 57.7 % Lymphocytes (%) (Auto) 25.4 % Monocytes (%) (Auto) 12.5 % Eosinophils (%) (Auto) 3.6 % Basophils (%) (Auto) 0.6 % Neutrophils # (Auto) 4.95 1.4-6.5 K/uL Lymphocytes # (Auto) 2.18 1.2-3.4 K/uL Monocytes # (Auto) 1.07 0.11-0.59 K/uL Eosinophils # (Auto) 0.31 0-0.5 K/uL Basophils # (Auto) 0.05 0-0.2 K/uL RDW Standard Deviation 51.2 36.4-46.3 fL RDW Coefficient of Variation 14.5 11.5-14.5 % Immature Granulocyte % (Auto) 0.2 % Immature Granulocyte # (Auto) 0.02 0.00-0.02 K/uL Prothrombin Time 10.9 9.0-12.0 SECONDS Prothromb Time International Ratio 1.0 0.9-1.1 Activated Partial Thromboplast Time 25.3 21.0-31.0 SECONDS Partial Thromboplastin Ratio 1.0 Sodium Level 144 136-145 mmol/L Potassium Level 4.6 3.5-5.1 mmol/L Chloride Level 107 98-107 mmol/L Carbon Dioxide Level 33 21-32 mmol/L Anion Gap 5.0 3-11 mmol/L Blood Urea Nitrogen 17 7-18 mg/dl Creatinine 0.83 0.60-1.20 mg/dl Est Creatinine Clear Calc Drug Dose 75.2 ml/min Estimated GFR () 90.7 Estimated GFR (Non- 78.3 BUN/Creatinine Ratio 20.7 10-20 Random Glucose 95 70-99 mg/dl Calcium Level 10.0 8.5-10.1 mg/dl Total Bilirubin 0.4 0.2-1 mg/dl Aspartate Amino Transf (AST/SGOT) 31 15-37 U/L Alanine Aminotransferase (ALT/SGPT) 34 12-78 U/L Alkaline Phosphatase 72 45-117 U/L Total Protein 8.3 6.4-8.2 gm/dl Albumin 3.8 3.4-5.0 gm/dl Globulin 4.5 2.5-4.0 gm/dl Albumin/Globulin Ratio 0.8 0.9-[address] Head CT at 3 AM Sliver-like hyperdensity along the anterior falx. A trace subdural hematoma cannot be excluded. Second Head CT at 7AM There is no CT evidence of acute cortical infarction. There is no evidence of parenchymal or subarachnoid hemorrhage. There is a persistent equivocal sliver- like anterior parafalcine subdural hematoma. This is not enlarged. There is no midline shift. There is no evidence of pathologic ventricular dilatation. There is no evidence of acute sinusitis IMPRESSION: No change from the preceding study. There is a persistent equivocal trace anterior parafalcine subdural. Cervical Spine CT The visualized portions of the lung apices reveal no evidence of pneumothorax. There are nonspecific interstitial opacities the lung apices. The prevertebral soft tissues are normal. No fractures or subluxations are visualized. There are multilevel degenerative changes. IMPRESSION: No acute fractures or subluxations identified. LUMBAR SPINE 5 VIEWS 1. No acute fractures identified within the lumbar spine. 2. Degenerative changes within the lower lumbar spine, unchanged. 3. Grade I anterolisthesis of L4 on L5, unchanged. 4. Postoperative changes seen within the lower thoracic spine with multiple old compression deformities, unchanged. Impression Assessment and Plan This is a 56 year old F patient with history Schizophrenia/Schizoaffective disorder with multiple musculoskeletal surgeries in the past and on chronic pain medications who had a mechanical fall after tripping. Patient's imaging in the ER did not show acute fractures of the neck or spine. However, it unclear on initial head CT whether patient may have had a trace subdural hematoma. Subsequent CT head 4 hours later in the ED with radiology interpretation of persistent but still equivocal sliver-like anterior parafalcine subdural hematoma. Patient did not have focal neurological deficits on exams by ED provider. ED providers discussed the case with neurology consultation and while awaiting full recommendations, patient was placed under observation under hospitalist medical service. On exam by hospitalist physician, patient also did not have focal neurological deficits. However, review of patient's medication showed multiple psychiatric related medications and pain medications and with patient's reported history of back and leg surgeries, patient may also require physical and occupational therapy to prevent future falls. Patient also have complaints of persistent chronic lower back and hip pain without acute physical exam findings for fractures. Possible subdural hematoma -awaiting neurology consult whether patient needs repeat head imaging Schizophrenia/Schizoaffective disorder -continue home dosed Risperdal, clozapine, Perphenazine, Wellbutrin, escitalopram, lorazepam prn Musculoskeletal pain -acetaminophen prn -continue home dose baclofen -avoid narcotics Fall history -physical and occupational therapy -hold home dose medication gabapentin for now -risk of falls may be increased by polypharmacy of psychiatric medication and pain medications at home Endocrine / Bones health -continue calcitonin -continue vitamin D Urination -continue abhijit medication of pyridum Respiratory -no acute respiratory distress, continue home inhalers of albuterol and breo- ellipta Listed allergies: Cefuroxime, haloperidol, hydroxyzine lithium, moban, prolixin DVT ppx: SCDs Code Status: Full Code, under observation Level of Care Med/Surg Resuscitation Status FULL RESUSCITATION VTE Prophylaxis VTE Risk Assessment Done? Y/N: Yes Risk Level: Moderate Given or contraindicated: SCD's
[2017-01-10] MEDS: CLOZAPINE 100 MG TAB PO SCH ×2 (14:29→21:51)
[2017-01-10] MEDS: LORAZEPAM 0.5 MG TAB PO PRN ×2 (14:29→23:27)
[2017-01-10] MEDS: PHENAZOPYRIDINE HCL 200 MG TAB PO SCH ×2 (14:29→21:54)
--- NOTE | 2017-01-10 15:19 | Neurology Consultation ---
Neurology Consultation Date of Consultation: Jan 10, 2017. Attending Physician: Aman Villalta DO Primary Care Physician: Naveed Adam III, M.D. Reason for Consultation: review CT head History of Present Illness Source: patient Amelia is a 56 year old female with a PMH Schizophrenia/Schizoaffective disorder with multiple musculoskeletal surgeries in the past and on chronic pain medications who fell after moving an oxygen tank. She states she remembers the fall and there was no LOC. the CT head had a finding that was possible SDH vs calcified falx. No fractures were seen on xray but she states her neck and legs were painful after the fall. denies CP, SOB, abdominal pain, headache weakness, numbness tingling, vision changes. . Past Medical/Surgical History Medical Problems: (1) Accidental overdose Status: Acute (2) Anemia Status: Acute (3) Anxiety Status: Acute (4) Back pain Status: Acute (5) Back pain Status: Chronic (6) Bilateral leg pain Status: Acute (7) Chest wall pain Status: Acute (8) Chronic pain Status: Acute (9) Closed stable burst fracture of T8 vertebra Status: Acute (10) Closed T12 fracture Status: Acute (11) Constipation Status: Acute (12) Contusion of head Status: Acute (13) Delusions Status: Acute (14) Depression with suicidal ideation Status: Acute (15) Diarrhea Status: Acute (16) Diffuse abdominal pain Status: Acute (17) Discitis Status: Acute (18) Discitis thoracic region Status: Acute (19) Fall Status: Acute (20) Fall Status: Acute (21) Head injury Status: Acute (22) Interstitial lung disease Status: Acute (23) Leukocytosis Status: Acute (24) Low back pain Status: Acute (25) Lower back pain Status: Acute (26) Lower extremity pain Status: Acute (27) Mood disorder Status: Acute (28) Mood disorder Status: Acute (29) Osteomyelitis () of jaw (suppurative) Status: Acute (30) Osteomyelitis of spine Status: Acute (31) Post-op pain Status: Acute (32) Precordial chest pain Status: Acute (33) Pyelonephritis Status: Acute (34) Right hip pain Status: Acute (35) Right low back pain Status: Acute (36) Sepsis Status: Acute (37) Shortness of breath Status: Acute (38) Suicidal ideations Status: Acute (39) Swelling of right extremity Status: Acute (40) Thoracic back pain Status: Acute (41) Traumatic compression fracture of T8 thoracic vertebra Status: Acute (42) UTI (urinary tract infection) Status: Acute (43) Weakness Status: Acute (44) Wound dehiscence Status: Acute Social History Problems: (1) History of back surgery Status: Acute Family History Father: stroke Mother: pertinent history of Grandmother: cancer Social History Smoking Status: Former smoker Smokeless Tobacco Use: No Drug Use: none, other Marital Status: single Housing Status: lives with family Occupation Status: disabled Allergies Coded Allergies: Hydrocodone (Verified Allergy, Severe, DROWSY, 01/10/17) Haloperidol (Verified Allergy, Unknown, "MAKES ME GO INTO BLACKOUT", 01/10) Hydroxyzine (Verified Allergy, Unknown, UNKNOWN, 01/10/17) INFO FROM [facility] [place] (Verified Allergy, Unknown, "LEVEL CAN GET TOO HIGH", 01/10/17) Oxycodone (Verified Adverse Reaction, Severe, DROWSY, 01/10/17) Molindone (Verified Adverse Reaction, Intermediate, PT FEELS LIKE SHES "JUMPING OUT OF HER SKIN", 01/10/17) Morphine and Related (Verified Adverse Reaction, Intermediate, DROWSY, ) px was drowsy w/ pinpoint pupils and minimally responsive. stable VS. Following Morphine IR 15mg - 3 doses in prior 24 hours. Naloxone 0.4mg admin 3 times during that period. Fluphenazine (Verified Adverse Reaction, Unknown, confusion, 01/10/17) Current Inpatient Medications Current Inpatient Medications Medications (Trade) Dose Ordered Sig/Janel Route Start Time Stop Time Status Last Admin Dose Admin Albuterol (Ventolin Hfa Inhaler) 2 puffs Q6H PRN INH 01/10/17 13:00 02/09/17 12:59 Baclofen (Lioresal Tab) 10 mg TID PRN PO 01/10/17 13:00 02/09/17 12:59 Bupropion HCl (Wellbutrin-Sr Tab) 100 mg QAM PO 01/11/17 09:00 02/10/17 08:59 Calcitonin [place] (Fortical Nasal [place]) 1 spray QPM NA 01/10/17 21:00 02/09/17 20:59 Cholecalciferol (Vitamin D Tab) 1,000 inter.unit QAM PO 01/11/17 09:00 02/10/17 08:59 Clozapine (Clozaril Tab) 100 mg TID PO 01/10/17 14:00 02/09/17 13:59 01/10/17 14:29 100 MG Docusate Sodium (coLACE CAP) 100 mg BID PO 01/10/17 21:00 02/09/17 20:59 Escitalopram Oxalate (Lexapro Tab) 20 mg QAM PO 01/11/17 09:00 02/10/17 08:59 Fenofibrate (Tricor Tab) 48 mg QAM PO 01/11/17 09:00 02/10/17 08:59 Folic Acid (Folvite Tab) 1 mg QAM PO 01/11/17 09:00 02/10/17 08:59 Lorazepam (Ativan Tab) 0.5 mg QID PRN PO 01/10/17 13:00 02/09/17 12:59 01/10/17 14:29 0.5 MG Montelukast Sodium (Singulair Tab) 10 mg HS PO 01/10/17 21:00 02/09/17 20:59 Calcium Carbonate (oS-[place] 500 TAB) 1,250 mg BID PO 01/10/17 21:00 02/09/17 20:59 Perphenazine (Trilafon Tab) 8 mg TID@0800,1200,1600 PO 01/10/17 16:00 02/09/17 15:59 Phenazopyridine HCl (Pyridium Tab) 200 mg TID PO 01/10/17 14:00 02/09/17 13:59 01/10/17 14:29 200 MG Ranitidine HCl (zANTac TAB) 150 mg BID PO 01/10/17 21:00 02/09/17 20:59 Risperidone (Risperdal Tab) 2 mg HS PO 01/10/17 21:00 02/09/17 20:59 Risperidone (Risperdal Tab) 1 mg QAM PO 01/11/17 09:00 02/10/17 08:59 Senna/Docusate Sodium (Senokot S Tab) 1 tab BID PO 01/10/17 21:00 02/09/17 20:59 Miscellaneous (Iv Fluids Completed) 1 ea PRN PRN N/A 01/10/17 14:00 01/10/18 13:59 Physical Exam Vital Signs (Past 24 Hrs): Date Time Temp Pulse Resp B/P (MAP) Pulse Ox O2 Delivery O2 Flow Rate FiO2 01/10/17 14:00 36.4 16 111/75 Nasal Cannula 2.0 01/10/17 12:45 98 16 111/75 94 Nasal Cannula 2.0 01/10/17 10:45 82 20 117/94 99 Room Air 01/10/17 08:45 85 19 121/97 99 Room Air 01/10/17 07:16 82 01/10/17 06:58 86 14 115/89 100 Room Air 01/10/17 05:08 84 18 111/88 99 Nasal Cannula 3.0 01/10/17 03:48 82 16 120/90 100 Nasal Cannula 3.0 01/10/17 03:08 86 01/10/17 03:00 36.4 82 16 145/86 93 Nasal Cannula 3.0 Physical Exam: Constitutional: appearance pale ill appearing, appears older than stated age Ears, Nose, Mouth and Throat: mucous membranes moist, no injection and skin normal, eyes normal Cardiovascular: normal S-1 and S-2 and regular rate and rhythm Respiratory: course breath sounds Musculoskeletal: no peripheral edema and good distal pulses Skin: no stigmata of neurocutaneous disease noted and normal and intact Eyes: extraocular muscles intact (EOMI) and pupils equal, round and reactive to light (PERRL) NEUROLOGIC EXAMINATION: Mental status: Alert and interactive Oriented to full date and location Oriented to person Speech fluent with no evidence of aphasia Cranial Nerves smile eye brow raise symmetric, tongue midline Reflexes: Deep tendon reflexes were symmetrical and graded 2/5. Plantar responses were flexor. Sensory: toes to ankle decreased sensation to cool, vibration intact, GT proprioception in tact Coordination: finger to nose with no bi pass, slight reaching tremor Gait/Stance: Posture lying in bed Motor: Negative for pronator drift of out stretched arms with eyes closed. Strength: biceps triceps hand educational program director intrinsic 5/5 bilaterally, hip flex plantar flex ext 5/ 5 bilaterally Laboratory Results Past 24 Hours: 01/10/17 09:50 Red Blood Count 4.81, Mean Corpuscular Volume 96.0, Mean Corpuscular Hemoglobin 31.0, Mean Corpuscular Hemoglobin Concent 32.3, Mean Platelet Volume 10.5, Neutrophils (%) (Auto) 57.7, Lymphocytes (%) (Auto) 25.4, Monocytes (%) (Auto) 12.5, Eosinophils (%) (Auto) 3.6, Basophils (%) (Auto) 0.6, Neutrophils # (Auto ) 4.95, Lymphocytes # (Auto) 2.18, Monocytes # (Auto) 1.07, Eosinophils # (Auto ) 0.31, Basophils # (Auto) 0.05 01/10/17 09:50 Test 01/10/17 09:50 White Blood Count 8.58 K/uL (4.8-10.8) Red Blood Count 4.81 M/uL (4.2-5.4) Hemoglobin 14.9 g/dL (12.0-16.0) Hematocrit 46.2 % (37-47) Mean Corpuscular Volume 96.0 fL (80-100) Mean Corpuscular Hemoglobin 31.0 pg (25-34) Mean Corpuscular Hemoglobin Concent 32.3 g/dl (32-36) Platelet Count 203 K/uL (130-400) Mean Platelet Volume 10.5 fL (7.4-10.4) Neutrophils (%) (Auto) 57.7 % Lymphocytes (%) (Auto) 25.4 % Monocytes (%) (Auto) 12.5 % Eosinophils (%) (Auto) 3.6 % Basophils (%) (Auto) 0.6 % Neutrophils # (Auto) 4.95 K/uL (1.4-6.5) Lymphocytes # (Auto) 2.18 K/uL (1.2-3.4) Monocytes # (Auto) 1.07 K/uL (0.11-0.59) Eosinophils # (Auto) 0.31 K/uL (0-0.5) Basophils # (Auto) 0.05 K/uL (0-0.2) RDW Standard Deviation 51.2 fL (36.4-46.3) RDW Coefficient of Variation 14.5 % (11.5-14.5) Immature Granulocyte % (Auto) 0.2 % Immature Granulocyte # (Auto) 0.02 K/uL (0.00-0.02) Prothrombin Time 10.9 SECONDS (9.0-12.0) Prothromb Time International Ratio 1.0 (0.9-1.1) Activated Partial Thromboplast Time 25.3 SECONDS (21.0-31.0) Partial Thromboplastin Ratio 1.0 Anion Gap 5.0 mmol/L (3-11) Est Creatinine Clear Calc Drug Dose 75.2 ml/min Estimated GFR () 90.7 Estimated GFR (Non- 78.3 BUN/Creatinine Ratio 20.7 (10-20) Calcium Level 10.0 mg/dl (8.5-10.1) Total Bilirubin 0.4 mg/dl (0.2-1) Aspartate Amino Transf (AST/SGOT) 31 U/L (15-37) Alanine Aminotransferase (ALT/SGPT) 34 U/L (12-78) Alkaline Phosphatase 72 U/L (45-117) Total Protein 8.3 gm/dl (6.4-8.2) Albumin 3.8 gm/dl (3.4-5.0) Globulin 4.5 gm/dl (2.5-4.0) Albumin/Globulin Ratio 0.8 (0.9-2) Imaging lumber x ray- No acute fractures identified within the lumbar spine. Degenerative changes within the lower lumbar spine, unchanged. Grade I anterolisthesis of L4 on L5, unchanged. Postoperative changes seen within the lower thoracic spine with multiple old compression deformities, unchanged. CT head- Sliver-like hyperdensity along the anterior falx. A trace subdural hematoma cannot be excluded. CT neck- No acute fractures or subluxations identified. CT head- (repeat) : No change from the preceding study. There is a persistent equivocal trace anterior parafalcine subdural. Impression 56 year old female with a mechanical fall and question on CT head. Plan 1. mechanical fall - follow with PCP for any further issues 2. no repeat imaging needed 3. discussed with radiology Bismark Galdamez M.D. no change in images of no consequence may be calcification of falx 4. primary team for medical issues 5. from neurology perspective ok to discharge 6. will sign off I have seen and discussed above patient with Dr Naveed Desouza, neurology Patient seen examined and images reviewed post mechanical fall with likely calcified falx rather than sdh Clinically asymptomatic and has only a minor long standing tremor that may be part of a low grade chronic eps OK to discharge if medically stable as spinal imaging shows no acute fracture and she is in no significant post fall pain at this time Naveed Desouza MD
[2017-01-10] MEDS: PERPHENAZINE 2 MG TAB PO SCH (15:28)
[2017-01-10] MEDS: BACLOFEN 10 MG TAB PO PRN (15:49)
--- NOTE | 2017-01-10 15:53 | Progress Note ---
Progress Note Date of Service Jan 10, 2017. Progress Note To note: Patient sees pain management: ONLY takes Celebrex 100mg BID and Tylenol ( holding Celebrex due to tiny subdural hematoma - will restart if okay with neurology)
[2017-01-10] MEDS ORDERED: ACETAMINOPHEN 325 MG TAB PO PRN (16:00)
[2017-01-10] MEDS: FERROUS SULFATE 325 MG TAB PO SCH (17:13)
[2017-01-10] MEDS ORDERED: RISPERIDONE 1 MG TAB PO SCH (21:00)
[2017-01-10] MEDS ORDERED: CALCITONIN SALMON NA 200 IU/AC 3.7 ML BTL SCH (21:00)
[2017-01-10] MEDS ORDERED: MONTELUKAST SOD 10 MG TAB PO SCH (21:00)
[2017-01-10 21:11] LABS: URINE APPEARANCE CLEAR (CLEAR); URINE BILIRUBIN NEG (NEG); URINE COLOR DK YELLOW; URINE NITRITE POS (NEG); URINE SPECIFIC GRAVITY 1.009 (1.000-1.030); UROBILINOGEN NEG (NEG); ZZUR CULT IF INDIC CLEAN CATCH NO
[2017-01-10 21:19] LABS: MANUAL MICROSCOPIC REQUIRED? NO; REVIEW REQ? YES
[2017-01-10] MEDS: DOCUSATE SODIUM 100 MG CAP PO SCH (21:52)
[2017-01-10] MEDS: GABAPENTIN 100 MG CAP PO SCH (21:53)
[2017-01-10] MEDS: CALCIUM CARBONATE 1250MG TAB PO SCH (21:54)
[2017-01-10] MEDS: DOCUSATE SODIUM/SENNA 50/8.6MG TAB PO SCH (21:56)
[2017-01-10] MEDS: RANITIDINE HCL 150 MG TAB PO SCH (21:57)
[2017-01-10 23:22] VITALS: BP 108/73; PULSE 87; TEMP 36.3; O2SAT 90
[2017-01-11] MEDS ORDERED: PIPERACILLIN/TAZOBACTAM 4.5 GM/100ML D5W IV STA (01:47)
--- NOTE | 2017-01-11 01:47 | Progress Note ---
Internal Med Progress Note Date of Service: Jan 11, 2017. Provider Documentation: Made aware by RN of increased urinary frequency. No fever no chills. Nitrite positive UA noted. AP Complicated UTI History of mixed stress/urge incontinence as per outpatient Urology eval (History enterococcus, gram-negative nina organisms on previouS CS) IV Zosyn for now. Will relay to AM provider Vital Signs: Date Time Temp Pulse Resp B/P (MAP) Pulse Ox O2 Delivery O2 Flow Rate FiO2 01/11/17 00:00 Nasal Cannula 3.0 01/10/17 23:22 36.3 87 18 108/73 (85) 90 Nasal Cannula 2.0 01/10/17 16:00 Nasal Cannula 2.0 01/10/17 14:00 36.4 16 111/75 Nasal Cannula 2.0 01/10/17 12:45 98 16 111/75 94 Nasal Cannula 2.0 01/10/17 10:45 82 20 117/94 99 Room Air 01/10/17 08:45 85 19 121/97 99 Room Air 01/10/17 07:16 82 01/10/17 06:58 86 14 115/89 100 Room Air Lab Results: Results Past 24 Hours Test 01/10/17 09:50 01/10/17 20:55 Range/Units White Blood Count 8.58 4.8-10.8 K/uL Red Blood Count 4.81 4.2-5.4 M/uL Hemoglobin 14.9 12.0-16.0 g/dL Hematocrit 46.2 37-47 % Mean Corpuscular Volume 96.0 80-100 fL Mean Corpuscular Hemoglobin 31.0 25-34 pg Mean Corpuscular Hemoglobin Concent 32.3 32-36 g/dl Platelet Count 203 130-400 K/uL Mean Platelet Volume 10.5 7.4-10.4 fL Neutrophils (%) (Auto) 57.7 % Lymphocytes (%) (Auto) 25.4 % Monocytes (%) (Auto) 12.5 % Eosinophils (%) (Auto) 3.6 % Basophils (%) (Auto) 0.6 % Neutrophils # (Auto) 4.95 1.4-6.5 K/uL Lymphocytes # (Auto) 2.18 1.2-3.4 K/uL Monocytes # (Auto) 1.07 0.11-0.59 K/uL Eosinophils # (Auto) 0.31 0-0.5 K/uL Basophils # (Auto) 0.05 0-0.2 K/uL RDW Standard Deviation 51.2 36.4-46.3 fL RDW Coefficient of Variation 14.5 11.5-14.5 % Immature Granulocyte % (Auto) 0.2 % Immature Granulocyte # (Auto) 0.02 0.00-0.02 K/uL Prothrombin Time 10.9 9.0-12.0 SECONDS Prothromb Time International Ratio 1.0 0.9-1.1 Activated Partial Thromboplast Time 25.3 21.0-31.0 SECONDS Partial Thromboplastin Ratio 1.0 Sodium Level 144 136-145 mmol/L Potassium Level 4.6 3.5-5.1 mmol/L Chloride Level 107 98-107 mmol/L Carbon Dioxide Level 33 21-32 mmol/L Anion Gap 5.0 3-11 mmol/L Blood Urea Nitrogen 17 7-18 mg/dl Creatinine 0.83 0.60-1.20 mg/dl Est Creatinine Clear Calc Drug Dose 75.2 ml/min Estimated GFR () 90.7 Estimated GFR (Non- 78.3 BUN/Creatinine Ratio 20.7 10-20 Random Glucose 95 70-99 mg/dl Calcium Level 10.0 8.5-10.1 mg/dl Total Bilirubin 0.4 0.2-1 mg/dl Aspartate Amino Transf (AST/SGOT) 31 15-37 U/L Alanine Aminotransferase (ALT/SGPT) 34 12-78 U/L Alkaline Phosphatase 72 45-117 U/L Total Protein 8.3 6.4-8.2 gm/dl Albumin 3.8 3.4-5.0 gm/dl Globulin 4.5 2.5-4.0 gm/dl Albumin/Globulin Ratio 0.8 0.9-2 Urine Color DK YELLOW Urine Appearance CLEAR CLEAR Urine pH 7.0 4.5-7.5 Urine Specific [place] 1.009 1.000-1.030 Urine Protein NEG NEG Urine Glucose (UA) NEG NEG Urine Ketones NEG NEG Urine Occult Blood NEG NEG Urine Nitrite POS NEG Urine Bilirubin NEG NEG Urine Urobilinogen NEG NEG Urine Leukocyte Esterase TRACE NEG Urine WBC (Auto) 1-5 0-5 /hpf Urine RBC (Auto) 0-4 0-4 /hpf Urine Hyaline Casts (Auto) 0 0-5 /lpf Urine Epithelial Cells (Auto) 5-10 0-5 /lpf Urine Bacteria (Auto) NEG NEG Microbiology Results 01/10/17 Urine Culture, Received Pending
[2017-01-11 07:20] VITALS: BP 108/73; PULSE 87; TEMP 37; O2SAT 95
[2017-01-11 07:25] VITALS: BP 111/77; PULSE 88; TEMP 36.8; O2SAT 96
[2017-01-11 08:00] VITALS: O2SAT 95
[2017-01-11] MEDS ORDERED: PIPERACILL/TAZOBAC IV 3.375 GM in DEXTROSE 5% 100ML IV SCH (08:00)
[2017-01-11] MEDS: PERPHENAZINE 2 MG TAB PO SCH ×2 (08:15→11:42)
[2017-01-11] MEDS: FERROUS SULFATE 325 MG TAB PO SCH (08:16)
[2017-01-11] MEDS: GABAPENTIN 100 MG CAP PO SCH (08:57)
[2017-01-11] MEDS: DOCUSATE SODIUM/SENNA 50/8.6MG TAB PO SCH (08:57)
[2017-01-11] MEDS: DOCUSATE SODIUM 100 MG CAP PO SCH (08:57)
[2017-01-11] MEDS: PHENAZOPYRIDINE HCL 200 MG TAB PO SCH ×2 (08:57→13:33)
[2017-01-11] MEDS: CALCIUM CARBONATE 1250MG TAB PO SCH (08:58)
[2017-01-11] MEDS: CLOZAPINE 100 MG TAB PO SCH ×2 (08:58→13:34)
[2017-01-11] MEDS: RANITIDINE HCL 150 MG TAB PO SCH (08:58)
[2017-01-11] MEDS ORDERED: FENOFIBRATE 48 MG TAB PO SCH (09:00)
[2017-01-11] MEDS ORDERED: RISPERIDONE 1 MG TAB PO SCH (09:00)
[2017-01-11] MEDS ORDERED: ESCITALOPRAM OXALATE 20 MG TAB PO SCH (09:00)
[2017-01-11] MEDS ORDERED: CHOLECALCIFEROL 1000 INTER.UNIT TAB PO SCH (09:00)
[2017-01-11] MEDS ORDERED: BuPROPion SR 100 MG TABCR PO SCH (09:00)
[2017-01-11] MEDS ORDERED: PIPERACILL/TAZOBAC CONSULT ACTIVE PRN (09:00)
[2017-01-11 09:24] VITALS: O2SAT 96
[2017-01-11] MEDS: BACLOFEN 10 MG TAB PO PRN (10:46)
[2017-01-11 11:38] VITALS: BP 133/85; PULSE 95; TEMP 36.4; O2SAT 98
[2017-01-11] MEDS ORDERED: MICONAZOLE NITRATE POWDER 43 GM EXT PRN (12:00)
[2017-01-11] MEDS ORDERED: NURSING DECISION MEDICATION ORDER SCH (12:00)
[2017-01-11 12:18] VITALS: BP 133/85; PULSE 95; TEMP 36.4; O2SAT 98
--- NOTE | 2017-01-11 13:00 | Progress Note ---
Subjective Date of Service: Jan 11, 2017. Subjective Pt evaluation today including: conversation w/ patient, conversation w/ family , physical exam, lab review, review of studies, review of inpatient medication list Saw/examined the patient in room 286 She is doing well, no problems/issues to note today She had a mechanical fall at home, but doing better now Did c/o urinary frequency and burning yesterday. Problem List Medical Problems: (1) Accidental overdose Status: Acute (2) Anemia Status: Acute (3) Anxiety Status: Acute (4) Back pain Status: Acute (5) Back pain Status: Chronic (6) Bilateral leg pain Status: Acute (7) Chest wall pain Status: Acute (8) Chronic pain Status: Acute (9) Closed stable burst fracture of T8 vertebra Status: Acute (10) Closed T12 fracture Status: Acute (11) Constipation Status: Acute (12) Contusion of head Status: Acute (13) Delusions Status: Acute (14) Depression with suicidal ideation Status: Acute (15) Diarrhea Status: Acute (16) Diffuse abdominal pain Status: Acute (17) Discitis Status: Acute (18) Discitis thoracic region Status: Acute (19) Fall Status: Acute (20) Fall Status: Acute (21) Head injury Status: Acute (22) Interstitial lung disease Status: Acute (23) Leukocytosis Status: Acute (24) Low back pain Status: Acute (25) Lower back pain Status: Acute (26) Lower extremity pain Status: Acute (27) Mood disorder Status: Acute (28) Mood disorder Status: Acute (29) Osteomyelitis () of jaw (suppurative) Status: Acute (30) Osteomyelitis of spine Status: Acute (31) Post-op pain Status: Acute (32) Precordial chest pain Status: Acute (33) Pyelonephritis Status: Acute (34) Right hip pain Status: Acute (35) Right low back pain Status: Acute (36) Sepsis Status: Acute (37) Shortness of breath Status: Acute (38) Suicidal ideations Status: Acute (39) Swelling of right extremity Status: Acute (40) Thoracic back pain Status: Acute (41) Traumatic compression fracture of T8 thoracic vertebra Status: Acute (42) UTI (urinary tract infection) Status: Acute (43) Weakness Status: Acute (44) Wound dehiscence Status: Acute Social History Problems: (1) History of back surgery Status: Acute Review of Systems Constitutional: No fever, No chills Respiratory: No cough, No sputum, No wheezing, No shortness of breath, No dyspnea on exertion Cardiac: No chest pain, No edema, No palpitations Abdomen: No pain, No nausea, No vomiting, No diarrhea Female : + dysuria, + urinary frequency, No hematuria, No incontinence Neurologic: + balance problems (uses walker for ambulation) Medications Current Inpatient Medications Medications (Trade) Dose Ordered Sig/Janel Route Start Time Stop Time Status Last Admin Dose Admin Albuterol (Ventolin Hfa Inhaler) 2 puffs Q6H PRN INH 01/10/17 13:00 02/09/17 12:59 01/11/17 08:19 2 PUFFS Baclofen (Lioresal Tab) 10 mg TID PRN PO 01/10/17 13:00 02/09/17 12:59 01/11/17 10:46 10 MG Bupropion HCl (Wellbutrin-Sr Tab) 100 mg QAM PO 01/11/17 09:00 02/10/17 08:59 01/11/17 08:57 100 MG Calcitonin [place] (Fortical Nasal [place]) 1 spray QPM NA 01/10/17 21:00 02/09/17 20:59 01/10/17 21:50 1 SPRAY Cholecalciferol (Vitamin D Tab) 1,000 inter.unit QAM PO 01/11/17 09:00 02/10/17 08:59 01/11/17 08:58 1,000 INTER.UNIT Clozapine (Clozaril Tab) 100 mg TID PO 01/10/17 14:00 02/09/17 13:59 01/11/17 08:58 100 MG Docusate Sodium (coLACE CAP) 100 mg BID PO 01/10/17 21:00 02/09/17 20:59 01/11/17 08:57 100 MG Escitalopram Oxalate (Lexapro Tab) 20 mg QAM PO 01/11/17 09:00 02/10/17 08:59 01/11/17 09:08 20 MG Fenofibrate (Tricor Tab) 48 mg QAM PO 01/11/17 09:00 02/10/17 08:59 01/11/17 08:58 48 MG Folic Acid (Folvite Tab) 1 mg QAM PO 01/11/17 09:00 12/16/17 08:59 01/11/17 08:58 1 MG Lorazepam (Ativan Tab) 0.5 mg QID PRN PO 01/10/17 13:00 02/09/17 12:59 01/10/17 23:27 0.5 MG Montelukast Sodium (Singulair Tab) 10 mg HS PO 01/10/17 21:00 02/09/17 20:59 01/10/17 21:56 10 MG Calcium Carbonate (oS-Michael 500 TAB) 1,250 mg BID PO 01/10/17 21:00 02/09/17 20:59 01/11/17 08:58 1,250 MG Perphenazine (Trilafon Tab) 8 mg TID@0800,1200,1600 PO 01/10/17 16:00 02/09/17 15:59 01/11/17 11:42 8 MG Phenazopyridine HCl (Pyridium Tab) 200 mg TID PO 01/10/17 14:00 02/09/17 13:59 01/11/17 08:57 200 MG Ranitidine HCl (zANTac TAB) 150 mg BID PO 01/10/17 21:00 02/09/17 20:59 01/11/17 08:58 150 MG Risperidone (Risperdal Tab) 2 mg HS PO 01/10/17 21:00 02/09/17 20:59 01/10/17 21:55 2 MG Risperidone (Risperdal Tab) 1 mg QAM PO 01/11/17 09:00 02/10/17 08:59 01/11/17 08:58 1 MG Senna/Docusate Sodium (Senokot S Tab) 1 tab BID PO 01/10/17 21:00 02/09/17 20:59 01/11/17 08:57 1 TAB Miscellaneous (Iv Fluids Completed) 1 ea PRN PRN N/A 01/10/17 14:00 01/10/18 13:59 Gabapentin (Neurontin Cap) 200 mg BID PO 01/10/17 21:00 02/09/17 20:59 01/11/17 08:57 200 MG Acetaminophen (Tylenol Tab) 650 mg Q8H PRN PO 01/10/17 16:00 02/09/17 15:59 01/11/17 09:29 650 MG Ferrous Sulfate (Feosol Tab) 325 mg BIDM PO 01/10/17 17:00 02/09/17 16:59 01/11/17 08:16 325 MG Piperacillin Sod/ Tazobactam Sod (Consult) 1 ea DAILY PRN N/A 01/11/17 09:00 02/10/17 08:59 Piperacillin Sod/ Tazobactam Sod 3.375 gm/Dextrose 115 ml @ 28.75 mls/ hr Q8H IV 01/11/17 08:00 01/21/17 07:59 01/11/17 08:14 28.75 MLS/HR Miconazole Nitrate (Desenex Powder) 1 appln PRN PRN EXT 01/11/17 12:00 02/10/17 11:59 Objective Vital Signs Date Time Temp Pulse Resp B/P (MAP) Pulse Ox O2 Delivery O2 Flow Rate FiO2 01/11/17 12:18 36.4 95 18 98 Nasal Cannula 01/11/17 11:38 36.4 95 18 133/85 (101) 98 Nasal Cannula 3.0 01/11/17 09:24 96 Nasal Cannula 3.0 01/11/17 08:00 95 Nasal Cannula 3.0 01/11/17 07:25 36.8 88 18 111/77 (88) 96 Nasal Cannula 3.0 01/11/17 07:20 37.0 87 16 108/73 (85) 95 2.0 01/11/17 00:00 Nasal Cannula 3.0 01/10/17 23:22 36.3 87 18 108/73 (85) 90 Nasal Cannula 2.0 01/10/17 16:00 Nasal Cannula 2.0 01/10/17 14:00 36.4 16 111/75 Nasal Cannula 2.0 Physical Exam General Appearance: no apparent distress ENT: hearing grossly normal Respiratory/Chest: lungs clear, normal breath sounds, no respiratory distress, no accessory muscle use Cardiovascular: regular rate, rhythm, no edema, no murmur Neurologic/Psychiatric: no motor/sensory deficits, alert, normal mood/affect Laboratory Results Last 24 Hours Test 01/10/17 20:55 Urine Color DK YELLOW Urine Appearance CLEAR Urine pH 7.0 Urine Specific [place] 1.009 Urine Protein NEG Urine Glucose (UA) NEG Urine Ketones NEG Urine Occult Blood NEG Urine Nitrite POS Urine Bilirubin NEG Urine Urobilinogen NEG Urine Leukocyte Esterase TRACE Urine WBC (Auto) 1-5 /hpf Urine RBC (Auto) 0-4 /hpf Urine Hyaline Casts (Auto) 0 /lpf Urine Epithelial Cells (Auto) 5-10 /lpf Urine Bacteria (Auto) NEG Assessment and Plan This is a 56 year old F patient with history Schizophrenia/Schizoaffective disorder with multiple musculoskeletal surgeries in the past and on chronic pain medications Presented with a mechanical Fall and found to have a trace anterior parafalcine subdural hematoma Trace Subdural Hematoma s/p mechanical fall patient tripped on an oxygen canister - was not using her walker and was ambulating at night Head CT showed trace subdural hematoma appreciate neurology input - no further testing required PT/OT - patient ambulating well plan is to discharge home sister takes care of patient's medications UTI possibly urinary tract infection, UA with +nitrites and trace leukocyte esterase urine culture from 01/08 is negative urine culture from 01/10 is pending will d/c with three day supply of Cipro - outpatient PCP follow-up and follow- up on inpatient cultures (possible repeat urine studies needed) Schizophrenia continue home medications Chronic Pain Syndrome continue home medications DVT ppx SCDs FULL CODE
[2017-01-11] MEDS ORDERED: CIPR-255 PO (13:05)
[2017-01-11] MEDS: LORAZEPAM 0.5 MG TAB PO PRN (13:07)
--- NOTE | 2017-01-11 13:17 | Discharge Instructions ---
Discharge Instructions Date of Service Jan 11, 2017. Admission Reason for Admission: Back Pain, Fall, Head Injury Discharge Discharge Diagnosis / Problem: Mechanical Fall; Trace Subdural Hematoma Discharge Goals Goal(s): Decrease discomfort, Improve function, Diagnostic testing, Therapeutic intervention Activity Recommendations Activity Limitations: resume your previous activity . Instructions / Follow-Up Instructions / Follow-Up Please follow-up with Dr. Adam on January 16 at 1:45PM * You will be discharged with Cipro (antibiotic) for three days - primary care physician should check the urine culture from the hospital and possibly recheck as outpatient Current Hospital Diet Patient's current hospital diet: Regular Diet Discharge Diet Recommended Diet: Regular Diet Pending Studies Studies pending at discharge: no Medical Emergencies . Who to Call and When: Medical Emergencies: If at any time you feel your situation is an emergency, please call 911 immediately. . Non-Emergent Contact Non-Emergency issues call your: Primary Care Provider . . "Provider Documentation" section prepared by Aman Villalta. . VTE Core Measure Inpt VTE Proph given/why not?: SCD's
--- NOTE | 2017-01-11 13:24 | Discharge Summary ---
Discharge Summary Date of Service Jan 11, 2017. Discharge Summary Admission Date: Jan 10, 2017 at 12:34 Discharge Date: Jan 11, 2017 Discharge Disposition: Home Principal Diagnosis: Mechanical Fall UTI Trace Subdural Hematoma Medication Reconciliation New Medications: Ciprofloxacin Hcl (Cipro) 500 Mg Tab 500 MG PO BID for 3 Days, #6 TAB Continued Medications: Acetaminophen (Tylenol Arthritis Ext Rel) 650 Mg Cplt 650 MG PO Q8H PRN for Pain can only have 2 grams max Albuterol Hfa (Ventolin Hfa) 200 Puffs/33522 Mcg Aers 2 PUFFS INH Q6H PRN for SOB/Wheezing Baclofen (Lioresal) 10 Mg Tab 10 MG PO TID PRN for Muscle Spasms Bupropion (Wellbutrin Sr) 100 Mg Ertab 100 MG PO QAM Calcitonin [place] (Calcitonin-Seney) 30 [place]/3.7 Ml Soln 1 SPRAY NA QPM Cholecalciferol (D 1000) 1,000 Unit Tab 1000 UNIT PO QAM Clozapine (Clozapine) 100 Mg Tab 100 MG PO TID, TAB Docusate Sodium (Docusate Sodium) 100 Mg Cap 100 MG PO BID, CAP Escitalopram Oxalate (Escitalopram Oxalate) 20 Mg Tab 20 MG PO QAM Fenofibrate (Fenofibrate) 48 Mg Tab 48 MG PO QAM Ferrous Sulfate (Ferrous Sulfate) 325 Mg Tab 325 MG PO BIDM Fluticasone Furoate-Vilanterol (Breo Ellipta) 1 Inh Inh 1 PUFF INH QAM Fluticasone Propionate (Nasal) (Flonase Allergy Relief) 50 Mcg/Act Spr 2 SPRAYS JOSE QAM Folic Acid (Folvite) 1 Mg Tab 1 MG PO QAM, TAB Gabapentin (Neurontin) 100 Mg Cap 200 MG PO BID, CAP Lorazepam (Ativan) 1 Mg Tab 0.5 MG PO QID PRN for Anxiety/Agitation, TAB Montelukast Sodium (Singulair) 10 Mg Tab 10 MG PO HS Oyster Shell ([place] 500) 500 Mg Tab 500 MG PO BID Perphenazine (Trilafon) 4 Mg Tab 8 MG PO TID@0800,1200,1600 Phenazopyridine HCl (Pyridium) 200 Mg Tab 200 MG PO TID Ranitidine HCl (Ranitidine HCl) 150 Mg Tab 150 MG PO BID Risperidone (Risperidone) 1 Mg Tab 2 MG PO HS Risperidone (Risperdal) 1 Mg Tab 1 MG PO QAM Senna/Docusate Sod (Senokot S) 1 Tab Tab 2 TAB PO 1300 Sennosides-Docusate Sodium (Senna Plus) 1 Tab Tab 1 TAB PO BID Tamsulosin Hcl (Flomax) 0.4 Mg Cap 0.4 MG PO HS Umeclidinium [place] (Incruse Ellipta) 62.5 Mcg/Inh Inh 1 PUFF PO QAM Zoledronic Acid (Reclast) 5 Mg/100 Ml Inj 1 DOSE INJ YEARLY Admission Information HPI (per Admitting provider): This is a 56 year old F patient with history Schizophrenia/Schizoaffective disorder with multiple musculoskeletal surgeries in the past and on chronic pain medications who had a mechanical fall after tripping. Patient's imaging in the ER did not show acute fractures of the neck or spine. However, it unclear on initial head CT whether patient may have had a trace subdural hematoma. Subsequent CT head 4 hours later in the ED with radiology interpretation of persistent but still equivocal sliver-like anterior parafalcine subdural hematoma. Patient did not have focal neurological deficits on exams by ED provider. ED providers discussed the case with neurology consultation and while awaiting full recommendations, patient was placed under observation under hospitalist medical service. On exam by hospitalist physician, patient also did not have focal neurological deficits. However, review of patient's medication showed multiple psychiatric related medications and pain medications and with patient's reported history of back and leg surgeries, patient may also require physical and occupational therapy to prevent future falls. Patient also have complaints of persistent chronic lower back and hip pain without acute physical exam findings for fractures. Physical Exam (per Admitting): General Appearance: WD/WN, no apparent distress Head: normocephalic, atraumatic Eyes: normal inspection, PERRL, EOMI, sclerae normal ENT: normal ENT inspection, hearing grossly normal, TMs normal, pharynx normal Respiratory/Chest: chest non-tender, lungs clear, normal breath sounds, no respiratory distress, no accessory muscle use Cardiovascular: regular rate, rhythm, no edema, no JVD, normal peripheral pulses Abdomen/GI: normal bowel sounds, non tender, soft Back: normal inspection, no CVA tenderness, no muscle spasm, normal range of motion Extremities/Musculoskelatal: normal inspection, no calf tenderness, no pedal edema, normal range of motion Neurologic/Psych: hand binder stripper II-XII nml as tested, no motor/sensory deficits, alert , normal mood/affect, oriented x 3 Skin: normal color, warm/dry Hospital Course This is a 56 year old F patient with history Schizophrenia/Schizoaffective disorder with multiple musculoskeletal surgeries in the past and on chronic pain medications Presented with a mechanical Fall and found to have a trace anterior parafalcine subdural hematoma Trace Subdural Hematoma s/p mechanical fall patient tripped on an oxygen canister - was not using her walker and was ambulating at night Head CT showed trace subdural hematoma appreciate neurology input - no further testing required PT/OT - patient ambulating well plan is to discharge home sister takes care of patient's medications UTI possibly urinary tract infection, UA with +nitrites and trace leukocyte esterase urine culture from 01/08 is negative urine culture from 01/10 is pending will d/c with three day supply of Cipro - outpatient PCP follow-up and follow- up on inpatient cultures (possible repeat urine studies needed) Schizophrenia continue home medications Chronic Pain Syndrome continue home medications DVT ppx SCDs FULL CODE Total time spent on discharge = 25 minutes This includes examination of the patient, discharge planning, medication reconciliation, and communication with other providers. Discharge Instructions Please follow-up with Dr. Adam on January 16 at 1:45PM * You will be discharged with Cipro (antibiotic) for three days - primary care physician should check the urine culture from the hospital and possibly recheck as outpatient
--- NOTE | 2017-01-25 09:57 | CODING QUERY MEDICAL NECESSITY ---
CQSUPPORTING DIAGNOSIS NEEDED A supporting diagnosis is required for the test/procedure performed on this patient in order for us to be reimbursed by the patient's insurance. Please provide a supporting diagnosis for the following test/procedure listed below next to the test name along with your signature. *If there is no additional diagnosis for this patient that would support the following test/procedure please document that below next to the test/procedure. Test(s)/Procedure(s) that require a supporting diagnosis: DOS 01/10/17 URINE CULTURE TEST Provider Signature: Date: Thank you Natasha Gay Health Information Management Once completed, please kindly fax back to [phone] For questions please call [phone]
== END 2017-01-11 14:26 | disposition home or self-care (01) ==
LOC: EDBD 02:54 → C.EDB 02:54 → C.MED 12:34 → ENRESERV 12:50
PROVIDERS: ADMIT Hospitalist; ATTEND Family Medicine
DX: S06.5X0A Traumatic subdural hemorrhage without loss of consciousness, initial encounter (principal); W01.198A Fall on same level from slipping, tripping and stumbling with subsequent striking against other object, initial encounter; B18.2 Chronic viral hepatitis C; J44.9 Chronic obstructive pulmonary disease, unspecified; F20.0 Paranoid schizophrenia; Z87.81 Personal history of (healed) traumatic fracture; Z86.718 Personal history of other venous thrombosis and embolism; F32.9 Major depressive disorder, single episode, unspecified; K21.9 Gastro-esophageal reflux disease without esophagitis; Z90.710 Acquired absence of both cervix and uterus; F11.10 Opioid abuse, uncomplicated; M81.0 Age-related osteoporosis without current pathological fracture; Z87.440 Personal history of urinary (tract) infections; F17.200 Nicotine dependence, unspecified, uncomplicated; Z90.89 Acquired absence of other organs; Z80.1 Family history of malignant neoplasm of trachea, bronchus and lung

== ENCOUNTER → 2017-03-01 | Outpatient (CLI) | payer OTHER ==
[~2017-03-01] MED LIST changes: +CIPR-255 PO; +CLB100 PO; +CLON0.5T3 PO; -FOLI1TAB7 PO; +FOLI1TAB8 PO; +GABA-113 PO; -MOML PO; +PRED50TA PO; +RISP1TAB68 PO; +RSP1 PO; +SENN1TAB65 PO; -SULF800T23 PO
--- NOTE | 2017-03-02 07:38 | PAP/PSG TECHNICIAN REPORT ---
[facility] Escrow Officer Polysomnogram Report Study name: None Report date: 03/02/2017 Study date: 03/01/2017 Referring Physician: Christine Medel Name: AMELIA RIVERS Interpreting Physician: Naveed Bustamante M.D. Date of : 1960 Escrow Officer: Allison Parmar, PSGT. Sex: Female Age: 56 StudyType: PSG Weight: 182 lbs Height: 56 years, Height 5' 4" BMI: 31.24 Medications: SEE LIST OF 30 MEDICATIONS LISTED IN CHART. Patient History 56 yr. old disabled lady, presents to the sleep lab with her sister. She is wearing 2 liters of oxygen, and a walker. Shortness of breath was noticed, she complained of multiple health issues and pain. she states that she is a sound sleeper but will wake gasping for air at times and it scares her. She also states that she is incontinent during the night she wears depends and has blue pads on the bed as well. She states that she uses her oxygen 24/7. She is very limited with activities due to her sob and lower back pain, and leg weakness. This study will be run on room air, with ETCO2 . Parameters Monitored NPSG: E1-M2, E2-M1, Fp1-M2, Fp2-M1, F3-M2, F4-M2, F4-M1, C3-M2, C4-M2, C4-M1, O1-M2, O2-M2, O2-M1, T3-M2, T4-M1, P3-M2, P4-M1, CHIN1, CHIN2, HR, EKG, Legs, PFLOW, SNOR, FLOW, CFLOW, Tidal Volume, THOR, ABDO, SpO2, PLTH, CPRESS, ETCO2 Wave, ETCO2, pH Sleep Architecture Sleep Stages Time at Lights Off 9:46:25 PM STAGES Time (min.) TST (%) Time at Lights On 5:34:25 AM Wake 13.5 -- Total Recording Time (TRT) 467.50 min. N1 0.5 0 Total Sleep Period (TSP) 467.0 min. N2 319.5 70 Total Sleep Time (TST) 454.0min. N3 94.5 21 Awake Time 13.5 min. REM 39.5 9 Wake after Sleep Onset 13.0 min. Sleep Efficiency (SE) 97 % Sleep Onset Latency (CARIDAD) 1.0 min. Number of Stage 1 Shifts None Awakenings 2 Stage Changes 15 Number of REM periods 2 REM 39.5 9 REM Latency 195.0 min. NREM 414.5 91 Body Position Analysis Supine Right Left Side Prone Vertical Total Sleep Time (min.) 466.3 0.0 0.0 0.00 0.0 1.2 Total Sleep Time (%) 100% 0% 0% 0 0% 100% Total Sleep Time REM (min.) 39.5 0.0 0.0 None 0.0 0.0 Total Sleep Time NREM (min.) 413.8 0.0 0.0 None 0.0 0.7 Intermittent Wake (min.) 13.0 0.0 0.0 None 0.0 0.5 Total Sleep Period (%) 100% None None None None None Arousals Myoclonus (PLM) * Events Count Index Events Count Index Spontaneous 27 4 Events Awake (PLMW) 0 0.0 Respiratory 0 0.0 Events Asleep w/ Arousal (PLMA) 1 0.1 PLM 1 0 Events Asleep w/o Arousal (PLMS) 19 2.5 Snoring 0 0 Total Asleep 20 2.6 Total 28 4 Total 20 3 Respiratory Analysis * CA OA MA CH H RERA Total Count 0 0 1 0 13 0 14 Index 0.0 0.0 0.1 0 1.7 0 1.9 Mean Duration 0.0 0.0 14.2 0.00 15.0 0.0 15.0 Longest Duration 0.0 0.0 14.2 0.00 14.2 0.0 21.2 Respiratory Event Summary Total Supine ~Supine Right Left Prone REM NREM Apneas Count 1 1 0 N/A N/A N/A 0 1 Index 0.1 0 0 N/A N/A N/A 0 0 Hypopneas (4% Desat) Count 13 13 0 N/A N/A N/A 1 12 Index 1.7 1.7 0 N/A N/A N/A 1.5 1.7 Apneas & All Hypopneas Count 14 14 0 N/A N/A N/A 1 13 Index 1.9 2 0 N/A N/A N/A 1.5 1.9 Respiratory Events (Chief Deputy Coroner+All Hyp+RERA) Count 14 14 0 N/A N/A N/A 1 13 Index 1.9 2 0 N/A N/A N/A 1.5 1.9 Respiratory Related Arousal Count 0 14 0 N/A N/A N/A 0 0 Index 0.0 0 0 N/A N/A N/A 0 0 Snoring Analysis Supine Right Left Prone REM NREM Total Snore duration 9.7 min Snores count 756 N/A N/A N/A 49 707 756 Snore mean duration 0.8 Sec Snores index 100 N/A N/A N/A 74.4 102.3 99.9 TST with snoring (%) 2.1% SpO2 Analysis Total REM NREM Awake <50% 0.0 min. 0.0 min. 0.0 min. 0.0 min. 51 - 60% 0.0 min. 0.0 min. 0.0 min. 0.0 min. 61 - 70% 0.0 min. 0.0 min. 0.0 min. 0.0 min. 71 - 80% 26.5 min. 11.3 min. 14.6 min. 0.6 min. 81 - 90% 432.9 min. 28.2 min. 399.6 min. 5.1 min. 91 - 100% 0.3 min. 0.0 min. 0.3 min. 0.0 min. Average 83 81 84 84 Minimum SpO2 77 77 78 79 Desaturation Event Index 4.9 7.6 4.8 0.0 # Desat. Events below 89% 38 5 33 0 Time(%) with Saturation below 89% 94.9 8.6 85.1 1.2 Time(min.) with Saturation below 89% 436.3 39.5 391.3 5.5 Heart Rate Analysis End Tidal CO2 Analysis Min (bpm) Max (bpm) Average (bpm) TSP (mins) % of TSP Awake 94 106 102 Above 55 mmHg 0.0 0.0 NREM 84 105 94 50-55 mmHg 0.0 0.0 REM 93 103 97 45-50 mmHg 61.0 13.4 Overall 84 105 94 40-45 mmHg 95.1 20.9 35-40 mmHg 293.7 64.7 30-35 mmHg 4.0 0.9 Average ETCO2 0.3 Supplemental O2 Values Minimum O2 level: None Value Start Time End Time Escrow Officer Comments PSG Study slept in the supine positions. No cardiac arrhythmia or PLM's noted. No bruxism noted. Snoring was noted and scored as a 2 on a scale of 1 through 5. (0=no snoring, 5=snoring loud enough to be heard through a closed door or down the castillo way) Ms. Rivers awoke to use the restroom one time during the night. Ms. Rivers stated, I did sleep as well as I do when I am in my own bed. The final report will be interpreted and signed by a sleep physician. The completed physician report will then be placed in the patient medical record. Amelia sleep well and in the supine position the entire night. She did have some incontinence and she had to be changed as well as the bed. Patient did not meet split night qualifications; however, her oxygen was below 89 % for 396.8 minutes and at 4:35 am when she was up to use the restroom, 1 liter of oxygen was added. Therapy (cm H2O) 0 TIB (min.) 467.5 TST (min.) 454.0 Sleep Onset (min.) 1.0 REM Onset From Sleep (min.) 195.0 Sleep Efficiency % 97 Wakefulness (%) 3 Wakefulness (min.) 13.5 NREM 1 (%) 0 NREM 1 (min.) 0.5 NREM 2 (%) 70 NREM 2 (min.) 319.5 NREM 3 (%) 21 NREM 3 (min.) 94.5 REM (%) 9 REM (min.) 39.5 # Arousals 28 Arousal Index 4 # Snore 756 Snore Index 99.9 AHI 1.9 AHI Supine 2 AHI Non-Supine 0 NREM AHI 1.9 REM AHI 1.5 RDI 1.9 # Obstructive Apnea 0 # Central Apnea 0 # Mixed Apnea 1 # Hypopneas 13 RERAs 0 Total Respiratory Events 14 Time Below SpO2 89% (min.) 430.8 Mean NREM SpO2 (%) 84 Mean REM SpO2 (%) 81 Mean Sleep SpO2 (%) 83 Min NREM SpO2 (%) 78 Min REM SpO2 (%) 77 Position Supine (min.) 466.3 Position Non-supine (min.) 0.7 LM Index Sleep 2.6 LM Index NREM 2.5 LM Index REM 4.6 Mean Heart Rate (bpm) 94 Min Heart Rate (bpm) 84
--- NOTE | 2017-03-02 19:08 | POLYSOMNOGRAPH REPORT ---
CLINICAL DATA: A 56-year-old female with BMI of 31.24 referred by ROSALIE Wright, for a possible split night sleep study. She wears oxygen 2 liters per minute and walks with a walker. She has shortness of breath with exertion. She does have gasping at night which scares her. She uses her oxygen 24/7. She has low back pain and leg weakness along with shortness of breath. SLEEP ARCHITECTURE: Total sleep period was 467 minutes. Total sleep time was 454 minutes divided between 414.5 minutes of non-REM sleep and 39.5 minutes of REM sleep. Sleep onset latency was 1 minute. REM latency was 195 minutes. Sleep efficiency was 97%. Wake after sleep onset was 13 minutes. Sleep consisted of stage N1 less than 1%, stage N2 70%, stage N3 21%, and REM 9%. AROUSAL DATA: Twenty eight arousals were recorded for an index of 4 per hour. Twenty seven were spontaneous. PERIODIC LIMB MOVEMENT DATA: Twenty limb movements during sleep were noted for an index of 2.6 per hour with arousal index of 0.1 per hour. RESPIRATORY DATA: There was no evidence of clinically significant sleep apnea seen. The AHI was 1.9. There was 1 mixed apneic episode, 14.2 seconds in duration. There were 13 hypopneic episodes with a mean duration of 15 seconds. OXIMETRY DATA: Nocturnal hypoxemia was seen. Oxygen [place] was 77% during REM. The mean saturation was 83%. ECHOCARDIOGRAM: Heart rates ranged from 84-105 beats per minute. No arrhythmias were noted. HYDROMETER CALIBRATOR'S COMMENTS: The patient slept supine. Snoring was moderate, rated 2 on a scale of 1-5. She had some incontinence and she had to be changed as well as changing the bed. She did not meet split night qualifications. Her oxygen saturation was below 89% for 396.8 minutes and after 4:35 a.m. 1 liter per minute of oxygen was utilized with improvement in her oxygen desaturation. IMPRESSION: 1. No evidence of clinically significant sleep apnea/hypopnea with an apnea/hypopnea index of 1.9. 2. Significant nocturnal hypoxemia, improved with oxygen 1-2 liters per minute, nasal cannula. RECOMMENDATIONS: The patient should continue on nocturnal oxygen. There is no indication for CPAP. [facility]
== END | disposition home or self-care (01) ==
LOC: C.NEUR 20:00
PROVIDERS: ATTEND Nurse Practitioner Family
DX: J96.11 Chronic respiratory failure with hypoxia (principal); R06.89 Other abnormalities of breathing; G47.34 Idiopathic sleep related nonobstructive alveolar hypoventilation; J84.9 Interstitial pulmonary disease, unspecified

== ENCOUNTER 2017-03-04 18:54 | Emergency (ER) | payer OTHER ==
[~2017-03-04] VITALS: Ht 162.6 cm; Wt 93.3 kg
[~2017-03-04 18:54] MED LIST changes: -BUPR100T8 PO; -CALCTAB27 PO; -CLB100 PO; -CLON0.5T3 PO; -FOLI1TAB8 PO; -GABA-113 PO; -PRED50TA PO; -ZOLE5INJ INJ
[2017-03-04 18:59] VITALS: TEMP 36.6; Ht 162.6 cm; Wt 93.3 kg
[2017-03-04 19:01] VITALS: O2SAT 99
[2017-03-04] MEDS ORDERED: METHYLPREDNISOLONE 125 MG VIAL IV STA (19:06)
[2017-03-04] MEDS ORDERED: ALBUT/IPRATROP 3MG/0.5MG NEB 3 ML VIAL INH ONE (19:15)
[2017-03-04] MEDS ORDERED: OPTIRAY 320 IV PRN (19:30)
--- NOTE | 2017-03-04 19:38 | EMERGENCY ROOM VISIT NOTE ---
History First contact with patient: 18:57 Chief Complaint: SHORTNESS OF BREATH Stated Complaint: SOB Nursing Triage Summary: Pt brought in by EMS. Pt complains of SOB since yesterday but worse today. Hx COPD, O2 dependent History of Present Illness The patient is a 56 year old female who presents to the Emergency Room via EMS with complaints of shortness of breath. The patient has a history of COPD and is on 2-3 L of home oxygen at all times, some baseline shortness of breath, however she states that her breathing is much worse since yesterday and has been getting progressively worse today. Patient states shortness of breath is worse with exertion and with lying flat. She states it feels like she just cannot catch her breath. She has tried some of her albuterol treatments at home without improvement. Patient does report a history of a DVT in the past, she is not currently on any blood thinners. She denies any chest pain, cough, sore throat, fevers or chills, dizziness or syncope, leg pain or swelling, abdominal pain, nausea or vomiting, diarrhea, urinary symptoms, or rash. Review of Systems A complete 10 point review of systems was reviewed with the patient with pertinent positives and negatives as per history of present illness. All else were negative. Past Medical/Surgical History Medical Problems: (1) Accidental drug overdose (2) Alcohol abuse (3) Aspiration pneumonia (4) Back pain (5) Cataract (6) Chronic hepatitis C (7) Chronic obstructive lung disease (8) Chronic paranoid schizophrenia (9) Closed fracture of femur (10) COPD (chronic obstructive pulmonary disease) (11) Deep venous thrombosis (12) Depression (13) Drug abuse (14) Gastroesophageal reflux disease (15) Hepatitis C (16) Hypoxia (17) Hysterectomy (18) Opiate abuse, continuous (19) Osteomyelitis (20) Osteoporosis (21) Past Psych Meds (22) Psychosis (23) S/P ORIF (open reduction internal fixation) fracture (24) Schizoaffective disorder (25) Seizure (26) Sepsis (27) Suicidal ideation (28) Tinea (29) Tobacco user (30) UTI (urinary tract infection) Surgical Problems: (1) H/O colonoscopy (2) History of hysterectomy (3) S/p thoracic spinal surgery (4) S/P tonsillectomy Family History FH: lung cancer GRANDMOTHER Thyroid disorder MOTHER SISTER Social History Smoking Status: Former Smoker Alcohol Use: none Drug Use: none, other Marital Status: single Housing Status: lives with family Occupation Status: disabled Current/Historical Medications Scheduled Bupropion (Wellbutrin Sr), 100 MG PO QAM Calcitonin [place] (Calcitonin-[place]), 1 SPRAY NA QPM Celecoxib (Celebrex), 3 CAP PO DAILY Cholecalciferol (D 1000), 1,000 UNIT PO QAM Clonazepam (Klonopin), 0.5 MG PO BID Clozapine (Clozapine), 100 MG PO TID Docusate Sodium (Docusate Sodium), 100 MG PO BID Escitalopram Oxalate (Escitalopram Oxalate), 20 MG PO QAM Fenofibrate (Fenofibrate), 48 MG PO QAM Ferrous Sulfate (Ferrous Sulfate), 325 MG PO BIDM Fluticasone Furoate-Vilanterol (Breo Ellipta), 1 PUFF INH QAM Fluticasone Propionate (Nasal) (Flonase Allergy Relief), 2 SPRAYS JOSE QAM Folic Acid (Folvite), 1 MG PO QAM Gabapentin (Neurontin), 300 MG PO TID Gabapentin (Neurontin), 300 MG PO BID Montelukast Sodium (Singulair), 10 MG PO HS Oyster Shell (Oysco 500), 500 MG PO BID Perphenazine (Trilafon), 4 MG PO TID@0800,1200,1600 Prednisone (Prednisone), 50 MG PO DAILY Ranitidine HCl (Ranitidine HCl), 150 MG PO BID Risperidone (Risperdal), 1 MG PO TID Sennosides-Docusate Sodium (Senna Plus), 1 TAB PO BID Tamsulosin Hcl (Flomax), 0.4 MG PO HS Umeclidinium [place] (Incruse Ellipta), 1 PUFF PO QAM Zoledronic Acid (Reclast), 1 DOSE INJ YEARLY Scheduled PRN Acetaminophen (Tylenol Arthritis Ext Rel), 650 MG PO Q8H PRN for Pain Albuterol Hfa (Ventolin Hfa), 2 PUFFS INH Q6H PRN for SOB/Wheezing Baclofen (Lioresal), 10 MG PO TID PRN for Muscle Spasms Allergies Reviewed in chart Physical Exam Vital Signs Date Time Temp Pulse Resp B/P (MAP) Pulse Ox O2 Delivery O2 Flow Rate FiO2 03/04/17 21:59 96 22 115/93 97 Nasal Cannula 2.0 03/04/17 20:05 94 20 109/80 98 Nasal Cannula 2.0 03/04/17 19:45 104 21 100 Nasal Cannula 2.0 03/04/17 19:16 102 03/04/17 19:08 99 Nasal Cannula 2.0 03/04/17 19:01 99 Nasal Cannula 2.0 03/04/17 18:59 36.6 106 20 120/92 99 2.0 Physical Exam CONSTITUTIONAL: Pleasant and cooperative. No acute distress. Well appearing and well nourished. HEENT: Normocephalic, atraumatic. Pupils equal, round and reactive to light, EOMI. TMs normal. Pharynx normal. NECK: Supple, full active range of motion without discomfort. RESPIRATORY: Lung sounds diminished throughout to auscultation bilaterally with expiratory wheezing and bibasilar crackles, no rhonchi or stridor. No tachypnea. Able to speak in full sentences without difficulty. Equal expansion bilaterally. CARDIOVASCULAR: Tachycardic. Regular rhythm with no murmurs, rubs or gallops. Normal peripheral perfusion. No edema. GASTROINTESTINAL: Soft, nontender, nondistended, obese. No palpable masses or HSM. Bowel sounds present in all quadrants. MUSCULOSKELETAL: Full range of motion of all joints without discomfort. Bilateral calf tenderness, right greater than left. No erythema, warmth, or significant swelling. INTEGUMENTARY: No rash or other significant dermatologic conditions noted. NEUROLOGIC: Alert and oriented X 4 with normal affect. Normal speech. No focal neurologic deficits noted. Normal strength and sensation in all four extremities. Medical Decision & Procedures ER Provider Diagnostic Interpretation: CHEST ONE VIEW PORTABLE CLINICAL HISTORY: Respiratory distress. Dyspnea. COMPARISON STUDY: Chest CT November 26, 2016 and chest radiograph December 23, 2016. FINDINGS: Thoracic spine hardware is in place. Paraspinal contour abnormality is unchanged. Cardiomediastinal silhouette is stable. There is no pneumothorax or pleural effusion. No lobar consolidation is present. Multifocal reticular interstitial thickening is unchanged. IMPRESSION: No acute cardiopulmonary findings. No change in appearance of the chest with multifocal reticulonodular interstitial thickening and hazy bilateral opacities. ----- CT ANGIOGRAPHY OF THE CHEST, PULMONARY EMBOLUS PROTOCOL CLINICAL HISTORY: Respiratory distress. Dyspnea. COMPARISON STUDY: Chest CT November 26, 2016 and chest radiograph performed earlier today. TECHNIQUE: Following IV administration of Optiray-320, helical axial images of the chest were obtained utilizing the pulmonary embolus protocol. Maximal intensity projections and sagittal and coronal reformats were viewed on an independent 3D workstation. IV contrast was administered without complication. A dose lowering technique was utilized adhering to the principles of ALARA. CT DOSE: 519.10 mGy.cm FINDINGS: No pulmonary emboli are identified. There is no evidence of thoracic aortic dissection. A right internal jugular [id number] is in place. The size of the heart is normal. There is no pericardial effusion. Several prominent right hilar lymph nodes are unchanged. No pneumothorax or pleural effusion is noted. Multifocal groundglass opacities with associated bronchiectasis and emphysematous/cystic changes throughout the lungs are unchanged. The appearance of the chest is unchanged since CT of November 26, 2016. No superimposed consolidation to suggest pneumonia is present. There is no pneumomediastinum. Central airways are patent. The patient is status post T6-T11 fusion. Multiple thoracic spine compression of the ovaries are unchanged with multifocal bony irregularity. The findings are chronic. Associated paravertebral soft tissue is unchanged. No acute thoracic spine fracture is identified. Visualized portions of the upper abdomen are unremarkable. IMPRESSION: 1. No pulmonary emboli identified. 2. No acute intrathoracic findings. 3. No significant change in interstitial lung disease, as described above. No superimposed consolidation. 4. Unchanged postoperative appearance of the thoracic spine with multilevel endplate irregularity and compression deformities, as described above. Stable paravertebral soft tissue. Findings suggest chronic changes with pseudoarthrosis. ----- BILATERAL LOWER EXTREMITY VENOUS DOPPLER CLINICAL HISTORY: BLE calf tenderness, R>L, eval DVT COMPARISON STUDY: Bilateral lower extremity venous Doppler April 28, 2016 and right lower extremity venous Doppler August 31, 2016. TECHNIQUE: Sonography of the deep venous system of the bilateral lower extremities was performed. Compression and augmentation were evaluated. FINDINGS: The common femoral, superficial femoral and popliteal veins were compressible. Augmentation was normal. Flow was shown within the deep calf vessels although the calf vessels were suboptimally assessed on this exam. IMPRESSION: No evidence of deep venous thrombus within the bilateral lower extremities. Laboratory Results 03/04/17 19:45 Red Blood Count 4.03, Mean Corpuscular Volume 94.3, Mean Corpuscular Hemoglobin 31.3, Mean Corpuscular Hemoglobin Concent 33.2, Mean Platelet Volume 10.1, Neutrophils (%) (Auto) 58.0, Lymphocytes (%) (Auto) 25.9, Monocytes (%) (Auto) 11.5, Eosinophils (%) (Auto) 3.8, Basophils (%) (Auto) 0.4, Neutrophils # (Auto ) 5.27, Lymphocytes # (Auto) 2.36, Monocytes # (Auto) 1.05, Eosinophils # (Auto ) 0.35, Basophils # (Auto) 0.04 03/04/17 19:45 Test 03/04/17 19:20 03/04/17 19:45 03/04/17 19:54 03/04/17 20:05 Urine Color YELLOW Urine Appearance CLEAR (CLEAR) Urine pH 5.5 (4.5-7.5) Urine Specific [place] 1.011 (1.000-1.030) Urine Protein NEG (NEG) Urine Glucose (UA) NEG (NEG) Urine Ketones NEG (NEG) Urine Occult Blood NEG (NEG) Urine Nitrite NEG (NEG) Urine Bilirubin NEG (NEG) Urine Urobilinogen NEG (NEG) Urine Leukocyte Esterase NEG (NEG) White Blood Count 9.11 K/uL (4.8-10.8) Red Blood Count 4.03 M/uL (4.2-5.4) Hemoglobin 12.6 g/dL (12.0-16.0) Hematocrit 38.0 % (37-47) Mean Corpuscular Volume 94.3 fL (80-100) Mean Corpuscular Hemoglobin 31.3 pg (25-34) Mean Corpuscular Hemoglobin Concent 33.2 g/dl (32-36) Platelet Count 161 K/uL (130-400) Mean Platelet Volume 10.1 fL (7.4-10.4) Neutrophils (%) (Auto) 58.0 % Lymphocytes (%) (Auto) 25.9 % Monocytes (%) (Auto) 11.5 % Eosinophils (%) (Auto) 3.8 % Basophils (%) (Auto) 0.4 % Neutrophils # (Auto) 5.27 K/uL (1.4-6.5) Lymphocytes # (Auto) 2.36 K/uL (1.2-3.4) Monocytes # (Auto) 1.05 K/uL (0.11-0.59) Eosinophils # (Auto) 0.35 K/uL (0-0.5) Basophils # (Auto) 0.04 K/uL (0-0.2) RDW Standard Deviation 46.3 fL (36.4-46.3) RDW Coefficient of Variation 13.5 % (11.5-14.5) Immature Granulocyte % (Auto) 0.4 % Immature Granulocyte # (Auto) 0.04 K/uL (0.00-0.02) Est Creatinine Clear Calc Drug Dose 79.9 ml/min Estimated GFR () 86.9 Estimated GFR (Non- 75.0 BUN/Creatinine Ratio 34.7 (10-20) Calcium Level 8.7 mg/dl (8.5-10.1) Total Bilirubin 0.2 mg/dl (0.2-1) Aspartate Amino Transf (AST/SGOT) 35 U/L (15-37) Alanine Aminotransferase (ALT/SGPT) 41 U/L (12-78) Alkaline Phosphatase 63 U/L (45-117) Troponin I < 0.015 ng/ml (0-0.045) Pro-B-Type Natriuretic Peptide 54 pg/ml (0-900) Total Protein 7.6 gm/dl (6.4-8.2) Albumin 3.3 gm/dl (3.4-5.0) Globulin 4.3 gm/dl (2.5-4.0) Albumin/Globulin Ratio 0.8 (0.9-2) Bedside Hemoglobin 12.9 g/dl (12.0-16.0) Bedside Hematocrit 38 % (37-47) Bedside Sodium 144 mEq/L (135-144) Bedside Potassium 4.0 mEq/L (3.3-5.0) Bedside Chloride 106 mEq/L (101-112) Bedside Total CO2 25 mEq/l (24-31) Anion Gap 17.0 mmol/L (16-25) Bedside Blood Urea Nitrogen 30 mg/dl (7-18) Bedside Creatinine 0.8 mg/dl (0.6-1.3) Bedside Glucose (other) 119 mg/dl (70-99) Bedside Ionized Calcium ([place]) 1.15 mmol/l (1.12-1.32) Prothrombin Time 10.4 SECONDS (9.0-12.0) Prothromb Time International Ratio 1.0 (0.9-1.1) Activated Partial Thromboplast Time 25.4 SECONDS (21.0-31.0) Partial Thromboplastin Ratio 1.0 Medications Administered Medications (Trade) Dose Ordered Sig/Janel Route Start Time Stop Time Status Last Admin Dose Admin Albuterol/ Ipratropium (Duoneb) 12 ml ONE ONCE INH 03/04/17 19:15 03/04/17 19:16 DC 03/04/17 19:43 12 ML Methylprednisolone Sodium Succinate (Solu-Medrol IV) 125 mg NOW STAT IV 03/04/17 19:06 03/04/17 19:13 DC 03/04/17 19:53 125 MG Heparin Sodium (Porcine) (Heparin 10 Unit/ ml 5 ml Flush) 5 ml STK-MED ONCE .ROUTE 03/04/17 21:07 03/04/17 21:08 DC 03/04/17 21:07 5 ML ECG Indication: SOB/dyspnea Rate (beats per minute): 95 Rhythm: normal sinus Findings: no acute ischemic change, no ectopy Change: no significant change (when compared to EKG of 12/23/2016) Medical Decision CC: Patient presenting with complaint of shortness of breath Interpretation of Labs: No leukocytosis, no anemia, no significant electrolyte abnormalities, normal renal function, normal liver enzymes and lipase. Coagulation factors within normal limits. Troponin negative, pro-BNP within normal limits. UA negative. Differential Diagnosis: Includes, but not limited to URI, bronchitis, pneumonia , pleural effusion, pulmonary edema, COPD exacerbation, CHF exacerbation, ACS, PE, DVT, among others. Medication Reconciliation: I attest that I have personally reviewed the patient' s current medication list. Vital signs review: I reviewed the patient's vital signs and interpret them as follows: T: Afebrile; BP: Normotensive; HR: Tachycardic; RR: Within normal limits; Pulse Ox: Within normal limits on 2 L O2. Blood pressure screening: The patient was found to have normal blood pressure on screening and does not require follow-up for repeat blood pressure check. Summary: Patient was evaluated at bedside, history and physical exam performed. Patient is alert and oriented, no acute distress, resting calmly in the stretcher. Patient is not tachypneic or using intercostal/accessory muscles, able to speak in full sentences, normal sats on her home O2 levels. Lungs are diminished throughout, expiratory wheezes, bibasilar crackles. Patient has tenderness in the bilateral calves to palpation, right greater than left, with history of DVT in the right leg in the past. Patient does report worsening shortness of breath from her baseline, is noted to be tachycardic, therefore decision was made to perform chest CT to evaluate for PE Orders were placed at bedside for labs, UA, EKG, chest x-ray, bilateral lower extremity duplex for DVT. Hour-long DuoNeb and IV solu-Medrol given for suspected COPD exacerbation. Patient discussed with Dr. Mosqueda, who agrees with my assessment and plan. Labs reviewed as above, no acute abnormalities. Chest x-ray appears unchanged from previous EKG sinus rhythm with no acute ischemic changes. Chest CT negative for PE or any other acute abnormalities. Bilateral venous duplex negative for DVT. Patient reassessed multiple times throughout ED stay, she reports she is much improved, no longer feeling short of breath, tachycardia improved as well. Reassessment of the lung exam, notes better movement of air, decrease in wheezing. I discussed all results with the patient and plan for discharge home, she felt comfortable with this plan. I did encourage her to follow closely with her PCP in the next few days for reevaluation of her COPD exacerbation. Rx for prednisone sent to the pharmacy. Patient has albuterol treatments at home and was encouraged to continue using these. Patient was also given strict return precautions should her symptoms worsen, she verbalized understanding. Patient was discharged home in stable condition and ambulatory. Medication Reconcilliation Current Medication List: was personally reviewed by me Impression Primary Impression: COPD exacerbation Departure Information Dispostion Home / Self-Care Condition GOOD Prescriptions Prednisone (Prednisone) 50 Mg Tab 50 MG PO DAILY for 4 Days, #4 TAB Prov: Laura Guthrie CRNP 03/04/17 Referrals Naveed Adam III, M.D. (PCP) Patient Instructions ED COPD Flare, My [facility] Additional Instructions You have been evaluated in the emergency department for your shortness of breath and COPD. There is no evidence of pneumonia on your chest x-ray. There is no evidence of blood clot on your chest CT or leg ultrasound. You have been prescribed prednisone (steroid) to be taken daily for the next 4 days. This is to help reduce inflammation in your lungs. Take with food. Use your albuterol inhaler TWO puffs every 4 hours as needed for cough, wheezing , shortness of breath. You should also use this before bed to help prevent coughing so that you can sleep better at night. Drink plenty of fluids to stay well hydrated. Please follow-up with your PCP in 1-2 days to be rechecked for ongoing management of your breathing problems. Please return to the emergency department if your symptoms worsen, including severe shortness or breath or excessive wheezing, chest pain, coughing up blood , severe dizziness or passing out, fevers/chills, or any other concerns. Work Instructions Return To Work: 2 days
[2017-03-04] MEDS ORDERED: CLON0.5T3 PO (19:41)
[2017-03-04] MEDS ORDERED: CLB100 PO (19:41)
[2017-03-04] MEDS ORDERED: GABA-113 PO (19:41)
[2017-03-04 19:45] VITALS: PULSE 104; O2SAT 100
[2017-03-04] MEDS ORDERED: GABA-112 PO (19:55)
[2017-03-04 20:03] LABS: BASO % 0.4 %; BASO ABS # 0.04 K/uL (0-0.2); EOS % 3.8 %; EOS ABS # 0.35 K/uL (0-0.5); HEMOGLOBIN 12.6 g/dL (12.0-16.0); IG# 0.04 K/uL (0.00-0.02); LYMPH % 25.9 %; LYMPH ABS # 2.36 K/uL (1.2-3.4); MEAN CELL VOLUME 94.3 fL (80-100); MEAN CORPUSCULAR HEMOGLOBIN 31.3 pg (25-34); MEAN CORPUSCULAR HGB CONC 33.2 g/dl (32-36); MEAN PLATELET VOLUME 10.1 fL (7.4-10.4); MONO % 11.5 %; MONO ABS # 1.05 K/uL (0.11-0.59); NEUT ABS # 5.27 K/uL (1.4-6.5); PLATELET COUNT 161 K/uL (130-400); RED CELL DISTRIBUTION WIDTH CV 13.5 % (11.5-14.5); RED CELL DISTRIBUTION WIDTH SD 46.3 fL (36.4-46.3); WHITE BLOOD COUNT 9.11 K/uL (4.8-10.8)
[2017-03-04 20:07] LABS: ISTAT CREATININE 0.8 mg/dl (0.6-1.3); ISTAT IONIZED CALCIUM 1.15 mmol/l (1.12-1.32)
[2017-03-04] MEDS ORDERED: ZOLE5INJ INJ (20:10)
[2017-03-04] MEDS ORDERED: BUPR100T8 PO (20:10)
[2017-03-04] MEDS ORDERED: CALCTAB27 PO (20:10)
[2017-03-04 20:19] LABS: ALBUMIN 3.3 gm/dl (3.4-5.0); ALT/SGPT 41 U/L (12-78); AST/SGOT 35 U/L (15-37); BLOOD UREA NITROGEN 30 mg/dl (7-18); CALCIUM 8.7 mg/dl (8.5-10.1); CARBON DIOXIDE 29 mmol/L (21-32); CREATININE 0.86 mg/dl (0.60-1.20); GLUCOSE 116 mg/dl (70-99); SODIUM 141 mmol/L (136-145)
[2017-03-04 20:24] LABS: ALKALINE PHOSPHATASE 63 U/L (45-117); TOTAL PROTEIN 7.6 gm/dl (6.4-8.2)
[2017-03-04 20:26] LABS: PTT PATIENT 25.4 SECONDS (21.0-31.0)
--- NOTE | 2017-03-04 20:31 | DIAGNOSTIC IMAGING REPORT ---
CHEST ONE VIEW PORTABLE CLINICAL HISTORY: Respiratory distress. Dyspnea. COMPARISON STUDY: Chest CT November 26, 2016 and chest radiograph December 23, 2016. FINDINGS: Thoracic spine hardware is in place. Paraspinal contour abnormality is unchanged. Cardiomediastinal silhouette is stable. There is no pneumothorax or pleural effusion. No lobar consolidation is present. Multifocal reticular interstitial thickening is unchanged. IMPRESSION: No acute cardiopulmonary findings. No change in appearance of the chest with multifocal reticulonodular interstitial thickening and hazy bilateral opacities. Electronically signed by: Benjamin Summers M.D. 03/04/2017 8:29 PM Dictated Date/Time: 03/04/2017 8:27 PM
--- NOTE | 2017-03-04 21:34 | DIAGNOSTIC IMAGING REPORT ---
CT ANGIOGRAPHY OF THE CHEST, PULMONARY EMBOLUS PROTOCOL CLINICAL HISTORY: Respiratory distress. Dyspnea. COMPARISON STUDY: Chest CT November 26, 2016 and chest radiograph performed earlier today. TECHNIQUE: Following IV administration of Optiray-320, helical axial images of the chest were obtained utilizing the pulmonary embolus protocol. Maximal intensity projections and sagittal and coronal reformats were viewed on an independent 3D workstation. IV contrast was administered without complication. A dose lowering technique was utilized adhering to the principles of ALARA. CT DOSE: 519.10 mGy.cm FINDINGS: No pulmonary emboli are identified. There is no evidence of thoracic aortic dissection. A right internal jugular [id number] is in place. The size of the heart is normal. There is no pericardial effusion. Several prominent right hilar lymph nodes are unchanged. No pneumothorax or pleural effusion is noted. Multifocal groundglass opacities with associated bronchiectasis and emphysematous/cystic changes throughout the lungs are unchanged. The appearance of the chest is unchanged since CT of November 26, 2016. No superimposed consolidation to suggest pneumonia is present. There is no pneumomediastinum. Central airways are patent. The patient is status post T6-T11 fusion. Multiple thoracic spine compression of the ovaries are unchanged with multifocal bony irregularity. The findings are chronic. Associated paravertebral soft tissue is unchanged. No acute thoracic spine fracture is identified. Visualized portions of the upper abdomen are unremarkable. IMPRESSION: 1. No pulmonary emboli identified. 2. No acute intrathoracic findings. 3. No significant change in interstitial lung disease, as described above. No superimposed consolidation. 4. Unchanged postoperative appearance of the thoracic spine with multilevel endplate irregularity and compression deformities, as described above. Stable paravertebral soft tissue. Findings suggest chronic changes with pseudoarthrosis. Electronically signed by: Benjamin Summers M.D. 03/04/2017 9:33 PM Dictated Date/Time: 03/04/2017 9:18 PM
[2017-03-04 21:59] VITALS: BP 115/93; PULSE 96; O2SAT 97
--- NOTE | 2017-03-04 22:08 | DIAGNOSTIC IMAGING REPORT ---
BILATERAL LOWER EXTREMITY VENOUS DOPPLER CLINICAL HISTORY: BLE calf tenderness, R>L, eval DVT COMPARISON STUDY: Bilateral lower extremity venous Doppler April 28, 2016 and right lower extremity venous Doppler August 31, 2016. TECHNIQUE: Sonography of the deep venous system of the bilateral lower extremities was performed. Compression and augmentation were evaluated. FINDINGS: The common femoral, superficial femoral and popliteal veins were compressible. Augmentation was normal. Flow was shown within the deep calf vessels although the calf vessels were suboptimally assessed on this exam. IMPRESSION: No evidence of deep venous thrombus within the bilateral lower extremities. Electronically signed by: Benjamin Summers M.D. 03/04/2017 10:07 PM Dictated Date/Time: 03/04/2017 10:06 PM
[2017-03-04] MEDS ORDERED: PRED50TA PO (22:20)
[2017-03-04] MEDS ORDERED: FOLI1TAB8 PO (22:31)
== END 2017-03-04 22:32 | disposition home or self-care (01) ==
LOC: EDBD 18:54 → C.EDB 18:55
DX: J44.1 Chronic obstructive pulmonary disease with (acute) exacerbation (principal); F32.9 Major depressive disorder, single episode, unspecified; M81.0 Age-related osteoporosis without current pathological fracture; K21.9 Gastro-esophageal reflux disease without esophagitis; F20.0 Paranoid schizophrenia; Z87.01 Personal history of pneumonia (recurrent); Z86.718 Personal history of other venous thrombosis and embolism; Z87.440 Personal history of urinary (tract) infections; Z87.891 Personal history of nicotine dependence; Z99.81 Dependence on supplemental oxygen; Z90.710 Acquired absence of both cervix and uterus; Z90.89 Acquired absence of other organs; Z98.890 Other specified postprocedural states; Z80.1 Family history of malignant neoplasm of trachea, bronchus and lung; Z79.899 Other long term (current) drug therapy

== ENCOUNTER 2017-03-08 11:01 | Emergency (ER) | payer OTHER ==
[~2017-03-08] VITALS: Ht 162.6 cm; Wt 93.6 kg
[~2017-03-08 11:01] MED LIST changes: -ATV/1 PO; +BUPR100T8 PO; +CALCTAB27 PO; -CIPR-255 PO; +CLB100 PO; +CLON0.5T3 PO; +FOLI1TAB8 PO; +GABA-113 PO; -PHEN-876 PO; +PRED50TA PO; -RSP1 PO; -SENN-65 PO; +ZOLE5INJ INJ
[2017-03-08 11:05] VITALS: TEMP 36.6; Ht 162.6 cm; Wt 93.6 kg
[2017-03-08] MEDS ORDERED: KETOROLAC TROMETHAMINE 30 MG/ML VIAL IV STA (11:46)
[2017-03-08] MEDS ORDERED: B-CO1CAP3 PO (12:00)
[2017-03-08] MEDS ORDERED: CLOZ50TA PO (12:00)
[2017-03-08] MEDS ORDERED: KETOROLAC TROMETHAMINE 60 MG/2 ML VIAL IM STA (12:04)
--- NOTE | 2017-03-08 12:11 | DIAGNOSTIC IMAGING REPORT ---
CHEST ONE VIEW PORTABLE HISTORY: Cough. Short of breath. COMPARISON: Chest 03/04/2017. FINDINGS: Low lung lines with interstitial thickening most pronounced within the left perihilar location and right upper lung zone. This is similar to the prior studies and is consistent with chronic interstitial lung disease. No pleural effusions. No pneumothorax. No new focal lung consolidations. The heart remains stable in size. Thoracic spinal fusion hardware is noted. Paraspinal thickening at the lower pedicle screws also remains unchanged. IMPRESSION: No significant change compared to the prior study. No acute process. Chronic and postoperative changes as described above. Electronically signed by: Uriel Talley M.D. 03/08/2017 12:10 PM Dictated Date/Time: 03/08/2017 12:08 PM
[2017-03-08 12:23] LABS: BASO % 0.1 %; BASO ABS # 0.02 K/uL (0-0.2); EOS % 0.6 %; HEMOGLOBIN 13.6 g/dL (12.0-16.0); IG# 0.08 K/uL (0.00-0.02); LYMPH % 9.4 %; LYMPH ABS # 1.61 K/uL (1.2-3.4); MEAN CELL VOLUME 94.8 fL (80-100); MEAN CORPUSCULAR HEMOGLOBIN 30.7 pg (25-34); MEAN CORPUSCULAR HGB CONC 32.4 g/dl (32-36); MEAN PLATELET VOLUME 10.2 fL (7.4-10.4); MONO % 9.9 %; MONO ABS # 1.69 K/uL (0.11-0.59); NEUT % 79.5 %; NEUT ABS # 13.65 K/uL (1.4-6.5); PLATELET COUNT 197 K/uL (130-400); RED CELL DISTRIBUTION WIDTH CV 13.6 % (11.5-14.5); RED CELL DISTRIBUTION WIDTH SD 47.3 fL (36.4-46.3); WHITE BLOOD COUNT 17.15 K/uL (4.8-10.8)
[2017-03-08 12:39] LABS: ALBUMIN 3.4 gm/dl (3.4-5.0); BLOOD UREA NITROGEN 33 mg/dl (7-18); CALCIUM 8.9 mg/dl (8.5-10.1); CARBON DIOXIDE 27 mmol/L (21-32); CREATININE 1.09 mg/dl (0.60-1.20); GLUCOSE 103 mg/dl (70-99); POTASSIUM 3.4 mmol/L (3.5-5.1); SODIUM 140 mmol/L (136-145)
[2017-03-08 12:44] LABS: ALKALINE PHOSPHATASE 60 U/L (45-117); ALT/SGPT 34 U/L (12-78); AST/SGOT 24 U/L (15-37); TOTAL PROTEIN 7.4 gm/dl (6.4-8.2)
--- NOTE | 2017-03-08 13:03 | EMERGENCY ROOM VISIT NOTE ---
History First contact with patient: 11:24 Chief Complaint: PAIN (GENERALIZED) Stated Complaint: PAIN - GENERALIZED History of Present Illness The patient is a 56 year old female who presents to the Emergency Room with complaints of "lung and back pain." The patient states that she has had left- sided back pain and has taken Tylenol and baclofen without relief. She states that she actually has an appointment with her primary care provider in 2 hours due to the pain that she has been having. She does state that she is currently being treated for a COPD exacerbation. She wears oxygen at home but does not feel like it helps her. She has been placed on prednisone and is taking this as prescribed. She states that her back pain has been a 7-9/10 since last night. She does have a history of chronic back pain. She denies any chest pain , abdominal pain, fevers, numbness, weakness, blurred vision, slurred speech, nausea/vomiting, diarrhea or constipation. Review of Systems A complete 10 point review of systems was reviewed with the patient with pertinent positives and negatives as per history of present illness. All else were negative. Past Medical/Surgical History Medical Problems: (1) Accidental drug overdose (2) Alcohol abuse (3) Aspiration pneumonia (4) Back pain (5) Cataract (6) Chronic hepatitis C (7) Chronic obstructive lung disease (8) Chronic paranoid schizophrenia (9) Closed fracture of femur (10) COPD (chronic obstructive pulmonary disease) (11) Deep venous thrombosis (12) Depression (13) Drug abuse (14) Gastroesophageal reflux disease (15) Hepatitis C (16) Hypoxia (17) Hysterectomy (18) Opiate abuse, continuous (19) Osteomyelitis (20) Osteoporosis (21) Past Psych Meds (22) Psychosis (23) S/P ORIF (open reduction internal fixation) fracture (24) Schizoaffective disorder (25) Seizure (26) Sepsis (27) Suicidal ideation (28) Tinea (29) Tobacco user (30) UTI (urinary tract infection) Surgical Problems: (1) H/O colonoscopy (2) History of hysterectomy (3) S/p thoracic spinal surgery (4) S/P tonsillectomy Family History FH: lung cancer GRANDMOTHER Thyroid disorder MOTHER SISTER Social History Smoking Status: Never Smoker Alcohol Use: none Drug Use: none, other Marital Status: single Housing Status: lives with family Occupation Status: disabled Current/Historical Medications Scheduled B-Complex Vitamins (B Complex), 1 CAP PO DAILY Bupropion (Wellbutrin Sr), 100 MG PO QAM Calcitonin [place] (Calcitonin-[place]), 1 SPRAY NA QPM Celecoxib (Celebrex), 300 MG PO DAILY Cholecalciferol (D 1000), 1,000 UNIT PO QAM Clonazepam (Klonopin), 0.5 MG PO BID Clozapine (Clozapine), 50 MG PO BID Docusate Sodium (Docusate Sodium), 100 MG PO BID Escitalopram Oxalate (Escitalopram Oxalate), 20 MG PO QAM Fenofibrate (Fenofibrate), 48 MG PO QAM Ferrous Sulfate (Ferrous Sulfate), 325 MG PO BIDM Fluticasone Furoate-Vilanterol (Breo Ellipta), 1 PUFF INH QAM Fluticasone Propionate (Nasal) (Flonase Allergy Relief), 2 SPRAYS JOSE QAM Folic Acid (Folvite), 1 MG PO QAM Gabapentin (Neurontin), 300 MG PO TID Gabapentin (Neurontin), 300 MG PO BID Montelukast Sodium (Singulair), 10 MG PO HS Oyster Shell (Oysco 500), 500 MG PO BID Perphenazine (Trilafon), 4 MG PO TID@0800,1200,1600 Ranitidine HCl (Ranitidine HCl), 150 MG PO BID Risperidone (Risperdal), 1 MG PO TID Sennosides-Docusate Sodium (Senna Plus), 1 TAB PO BID Tamsulosin Hcl (Flomax), 0.4 MG PO HS Umeclidinium [place] (Incruse Ellipta), 1 PUFF PO QAM Zoledronic Acid (Reclast), 1 DOSE INJ YEARLY Scheduled PRN Acetaminophen (Tylenol Arthritis Ext Rel), 650 MG PO Q8H PRN for Pain Albuterol Hfa (Ventolin Hfa), 2 PUFFS INH Q6H PRN for SOB/Wheezing Baclofen (Lioresal), 10 MG PO TID PRN for Muscle Spasms Physical Exam Vital Signs Date Time Temp Pulse Resp B/P (MAP) Pulse Ox O2 Delivery O2 Flow Rate FiO2 03/08/17 13:05 97 20 121/70 95 Nasal Cannula 2.0 03/08/17 11:05 36.6 106 20 115/70 98 Nasal Cannula 2.0 Physical Exam VITALS: Vitals are noted on the nurse's note and reviewed by myself. Vital signs stable. GENERAL: This is a 56-year-old female, in no acute distress, sitting up in bed, well-developed well-nourished. SKIN: The skin was without rashes. HEAD: Normocephalic atraumatic. EARS: External auditory canals clear, tympanic membranes pearly guerra without erythema or effusion bilaterally. EYES: Pupils equal round and reactive to light and accommodation. MOUTH: Mucous membranes moist. Tonsils are not enlarged. Pharynx without erythema or exudate. NECK: Supple without nuchal rigidity. No lymphadenopathy. HEART: Regular rate and rhythm without murmurs gallops or rubs. LUNGS: Clear to auscultation bilaterally without wheezes, rales or rhonchi. No retractions or accessory muscle use. MUSCULOSKELETAL: There is mild tenderness to palpation of the left lumbar paraspinal muscles. No midline tenderness. NEURO: Patient was alert and oriented to person place and time. Medical Decision & Procedures Laboratory Results 03/08/17 12:11 Red Blood Count 4.43, Mean Corpuscular Volume 94.8, Mean Corpuscular Hemoglobin 30.7, Mean Corpuscular Hemoglobin Concent 32.4, Mean Platelet Volume 10.2, Neutrophils (%) (Auto) 79.5, Lymphocytes (%) (Auto) 9.4, Monocytes (%) (Auto) 9.9, Eosinophils (%) (Auto) 0.6, Basophils (%) (Auto) 0.1, Neutrophils # (Auto) 13.65, Lymphocytes # (Auto) 1.61, Monocytes # (Auto) 1.69, Eosinophils # (Auto) 0.10, Basophils # (Auto) 0.02 03/08/17 12:11 Test 03/08/17 12:11 White Blood Count 17.15 K/uL (4.8-10.8) Red Blood Count 4.43 M/uL (4.2-5.4) Hemoglobin 13.6 g/dL (12.0-16.0) Hematocrit 42.0 % (37-47) Mean Corpuscular Volume 94.8 fL (80-100) Mean Corpuscular Hemoglobin 30.7 pg (25-34) Mean Corpuscular Hemoglobin Concent 32.4 g/dl (32-36) Platelet Count 197 K/uL (130-400) Mean Platelet Volume 10.2 fL (7.4-10.4) Neutrophils (%) (Auto) 79.5 % Lymphocytes (%) (Auto) 9.4 % Monocytes (%) (Auto) 9.9 % Eosinophils (%) (Auto) 0.6 % Basophils (%) (Auto) 0.1 % Neutrophils # (Auto) 13.65 K/uL (1.4-6.5) Lymphocytes # (Auto) 1.61 K/uL (1.2-3.4) Monocytes # (Auto) 1.69 K/uL (0.11-0.59) Eosinophils # (Auto) 0.10 K/uL (0-0.5) Basophils # (Auto) 0.02 K/uL (0-0.2) RDW Standard Deviation 47.3 fL (36.4-46.3) RDW Coefficient of Variation 13.6 % (11.5-14.5) Immature Granulocyte % (Auto) 0.5 % Immature Granulocyte # (Auto) 0.08 K/uL (0.00-0.02) Anion Gap 8.0 mmol/L (3-11) Est Creatinine Clear Calc Drug Dose 63.2 ml/min Estimated GFR () 65.3 Estimated GFR (Non- 56.3 BUN/Creatinine Ratio 30.3 (10-20) Calcium Level 8.9 mg/dl (8.5-10.1) Total Bilirubin 0.4 mg/dl (0.2-1) Aspartate Amino Transf (AST/SGOT) 24 U/L (15-37) Alanine Aminotransferase (ALT/SGPT) 34 U/L (12-78) Alkaline Phosphatase 60 U/L (45-117) Troponin I < 0.015 ng/ml (0-0.045) Total Protein 7.4 gm/dl (6.4-8.2) Albumin 3.4 gm/dl (3.4-5.0) Globulin 4.0 gm/dl (2.5-4.0) Albumin/Globulin Ratio 0.9 (0.9-2) Medications Administered Medications (Trade) Dose Ordered Sig/Janel Route Start Time Stop Time Status Last Admin Dose Admin Ketorolac Tromethamine (Toradol Inj) 60 mg NOW STAT IM 03/08/17 12:04 03/08/17 12:05 DC 03/08/17 12:15 60 MG Medical Decision Differential diagnosis includes musculoskeletal pain, pneumonia, PE, pneumothorax, rib strain, rib fracture, among others. The patient was evaluated as above. Labs do reveal a leukocytosis and mild hyperglycemia consistent with the patient's current steroid use. Labs are otherwise unremarkable. Troponin is negative. EKG is unremarkable. Chest x- ray is unchanged from previous. The patient complains of "lung" pain, however points to her left lumbar region when describing where the pain is. I feel this is likely musculoskeletal pain. The patient does have a history of chronic back pain. She was given Toradol for her pain with some relief. The patient was discharged directly to her primary care provider for her scheduled follow-up visit. The patient's case was reviewed with Dr. Salinas, ED attending physician, who agreed with my assessment and treatment plan. Medication Reconcilliation Current Medication List: was personally reviewed by me Blood Pressure Screening Patient's blood pressure: Normal blood pressure Impression Primary Impression: Lumbar back pain Departure Information Dispostion Home / Self-Care Condition GOOD Referrals Naveed Adam III, M.D. (PCP) Patient Instructions My [facility] Additional Instructions Follow up with Dr. Adam today as scheduled. Continue the prednisone. Return to the ED with any new/concerning or worsening symptoms.
[2017-03-08 13:05] VITALS: BP 121/70; PULSE 97; O2SAT 95
== END 2017-03-08 13:16 | disposition home or self-care (01) ==
LOC: EDBD 11:01 → C.EDC 11:02
DX: M54.5 Low back pain (principal); G89.29 Other chronic pain; J44.9 Chronic obstructive pulmonary disease, unspecified; B18.2 Chronic viral hepatitis C; F20.0 Paranoid schizophrenia; F32.9 Major depressive disorder, single episode, unspecified; K21.9 Gastro-esophageal reflux disease without esophagitis; M81.0 Age-related osteoporosis without current pathological fracture; Z80.1 Family history of malignant neoplasm of trachea, bronchus and lung; Z83.49 Family history of other endocrine, nutritional and metabolic diseases

== ENCOUNTER 2017-03-09 06:45 | Emergency (ER) | payer OTHER ==
[~2017-03-09] VITALS: Ht 163.8 cm; Wt 91.6 kg
[~2017-03-09 06:45] MED LIST changes: +B-CO1CAP3 PO; -CLOZ100T18 PO; +CLOZ50TA PO; -PRED50TA PO
[2017-03-09 06:55] VITALS: TEMP 36.3; Ht 163.8 cm; Wt 91.6 kg
[2017-03-09] MEDS ORDERED: ALBUT/IPRATROP 3MG/0.5MG NEB 3 ML VIAL INH STA (06:55)
--- NOTE | 2017-03-09 07:22 | EMERGENCY ROOM VISIT NOTE ---
ED Visit Note First contact with patient: 06:48 I have seen and examined this patient with Nany Noriega and generally agree with the treatment plan as discussed. Problem List Medical Problems: (1) Accidental drug overdose Status: Resolved (2) Alcohol abuse Permanent Comment: no recent use attends AA Status: Resolved (3) Aspiration pneumonia Status: Resolved (4) Back pain Status: Chronic (5) Cataract Status: Chronic (6) Chronic hepatitis C Status: Chronic (7) Chronic obstructive lung disease Status: Chronic (8) Chronic paranoid schizophrenia Status: Chronic (9) Closed fracture of femur Permanent Comment: s/p ORIF Status: Resolved (10) COPD (chronic obstructive pulmonary disease) Status: Chronic (11) Deep venous thrombosis Status: Chronic (12) Depression Status: Chronic (13) Drug abuse Permanent Comment: narcotic addiction due to chronic pain attends NA Status: Resolved (14) Gastroesophageal reflux disease Status: Chronic (15) Hepatitis C Status: Chronic (16) Hypoxia Status: Chronic (17) Hysterectomy Status: Resolved (18) Osteoporosis Status: Chronic (19) S/P ORIF (open reduction internal fixation) fracture Permanent Comment: femur Status: Chronic (20) Schizoaffective disorder Status: Chronic (21) Seizure Status: Resolved (22) Tinea Status: Resolved (23) Tobacco user Status: Chronic Surgical Problems: (1) H/O colonoscopy Status: Chronic (2) History of hysterectomy Status: Chronic (3) S/p thoracic spinal surgery Permanent Comment: 07/07/2015; Dr. Caballero at [facility] [place] Status: Chronic (4) S/P tonsillectomy Status: Chronic Current/Historical Medications Scheduled B-Complex Vitamins (B Complex), 1 CAP PO DAILY Bupropion (Wellbutrin Sr), 100 MG PO QAM Calcitonin [place] (Calcitonin-[place]), 1 SPRAY NA QPM Celecoxib (Celebrex), 300 MG PO DAILY Cholecalciferol (D 1000), 1,000 UNIT PO QAM Clonazepam (Klonopin), 0.5 MG PO BID Clozapine (Clozapine), 50 MG PO BID Docusate Sodium (Docusate Sodium), 100 MG PO BID Escitalopram Oxalate (Escitalopram Oxalate), 20 MG PO QAM Fenofibrate (Fenofibrate), 48 MG PO QAM Ferrous Sulfate (Ferrous Sulfate), 325 MG PO BIDM Fluticasone Furoate-Vilanterol (Breo Ellipta), 1 PUFF INH QAM Fluticasone Propionate (Nasal) (Flonase Allergy Relief), 2 SPRAYS JOSE QAM Folic Acid (Folvite), 1 MG PO QAM Gabapentin (Neurontin), 300 MG PO TID Gabapentin (Neurontin), 300 MG PO BID Montelukast Sodium (Singulair), 10 MG PO HS Oyster Shell (Oysco 500), 500 MG PO BID Perphenazine (Trilafon), 4 MG PO TID@0800,1200,1600 Ranitidine HCl (Ranitidine HCl), 150 MG PO BID Risperidone (Risperdal), 1 MG PO TID Sennosides-Docusate Sodium (Senna Plus), 1 TAB PO BID Tamsulosin Hcl (Flomax), 0.4 MG PO HS Umeclidinium [place] (Incruse Ellipta), 1 PUFF PO QAM Zoledronic Acid (Reclast), 1 DOSE INJ YEARLY Scheduled PRN Acetaminophen (Tylenol Arthritis Ext Rel), 650 MG PO Q8H PRN for Pain Albuterol Hfa (Ventolin Hfa), 2 PUFFS INH Q6H PRN for SOB/Wheezing Baclofen (Lioresal), 10 MG PO TID PRN for Muscle Spasms Allergies Coded Allergies: Hydrocodone (Verified Allergy, Severe, DROWSY, 03/09/17) Haloperidol (Verified Allergy, Unknown, "MAKES ME GO INTO BLACKOUT", ) Hydroxyzine (Verified Allergy, Unknown, UNKNOWN, 03/09/17) INFO FROM [facility] [place] Drain (Verified Allergy, Unknown, "LEVEL CAN GET TOO HIGH", 03/09/17) Oxycodone (Verified Adverse Reaction, Severe, DROWSY, 03/09/17) Molindone (Verified Adverse Reaction, Intermediate, PT FEELS LIKE SHES "JUMPING OUT OF HER SKIN", 03/09/17) Morphine and Related (Verified Adverse Reaction, Intermediate, DROWSY, 02/12) px was drowsy w/ pinpoint pupils and minimally responsive. stable VS. Following Morphine IR 15mg - 3 doses in prior 24 hours. Naloxone 0.4mg admin 3 times during that period. Fluphenazine (Verified Adverse Reaction, Unknown, confusion, 03/09/17) Vital Signs Date Time Temp Pulse Resp B/P (MAP) Pulse Ox O2 Delivery O2 Flow Rate FiO2 03/09/17 07:00 92 03/09/17 06:55 97 Room Air 03/09/17 06:55 36.3 96 19 141/84 94 Room Air Medications Administered Medications (Trade) Dose Ordered Sig/Janel Route Start Time Stop Time Status Last Admin Dose Admin Albuterol/ Ipratropium (Duoneb) 3 ml NOW STAT INH 03/09/17 06:55 03/09/17 06:57 DC 03/09/17 07:04 3 ML Departure Information Referrals Nvaeed Adam III, M.D. (PCP) Patient Instructions My [facility]
[2017-03-09 07:27] VITALS: BP 131/82; PULSE 96; O2SAT 99
--- NOTE | 2017-03-09 07:47 | EMERGENCY ROOM VISIT NOTE ---
History First contact with patient: 06:48 Chief Complaint: SHORTNESS OF BREATH Stated Complaint: SHORTNESS OF BREATH Nursing Triage Summary: Pt here with SOB and anxiety. States she hyperventilates alot at home and she also sprayed raid this AM for roaches. Audible wheezes. History of Present Illness The patient is a 56 year old female who is well-known to the ER presents by EMS today to the ER with chief complaint of being short of breath. The patient states that she gets short of breath and has anxiety and hyperventilates. She states recently her psychiatrist switched her Ativan to Klonopin since she was getting high on the Ativan. She has not contacted her psychiatrist about her increased anxiety. The patient states she normally is on 2 L of oxygen during the day and 3 L of oxygen at night. Currently she states she feels a little tight in the chest but is not anxious at this time. The patient denies any suicidal or homicidal ideations. The patient denies any recent cold symptoms. Review of Systems 10 system review was performed and was negative unless stated otherwise history of present illness. Past Medical/Surgical History Medical Problems: (1) Accidental drug overdose (2) Alcohol abuse (3) Aspiration pneumonia (4) Back pain (5) Cataract (6) Chronic hepatitis C (7) Chronic obstructive lung disease (8) Chronic paranoid schizophrenia (9) Closed fracture of femur (10) COPD (chronic obstructive pulmonary disease) (11) Deep venous thrombosis (12) Depression (13) Drug abuse (14) Gastroesophageal reflux disease (15) Hepatitis C (16) Hypoxia (17) Hysterectomy (18) Opiate abuse, continuous (19) Osteomyelitis (20) Osteoporosis (21) Past Psych Meds (22) Psychosis (23) S/P ORIF (open reduction internal fixation) fracture (24) Schizoaffective disorder (25) Seizure (26) Sepsis (27) Suicidal ideation (28) Tinea (29) Tobacco user (30) UTI (urinary tract infection) Surgical Problems: (1) H/O colonoscopy (2) History of hysterectomy (3) S/p thoracic spinal surgery (4) S/P tonsillectomy Family History FH: lung cancer GRANDMOTHER Thyroid disorder MOTHER SISTER Social History Smoking Status: Former Smoker Alcohol Use: none Drug Use: none, other Marital Status: single Housing Status: lives with family Occupation Status: disabled Current/Historical Medications Scheduled B-Complex Vitamins (B Complex), 1 CAP PO DAILY Bupropion (Wellbutrin Sr), 100 MG PO QAM Calcitonin [place] (Calcitonin-[place]), 1 SPRAY NA QPM Celecoxib (Celebrex), 300 MG PO DAILY Cholecalciferol (D 1000), 1,000 UNIT PO QAM Clonazepam (Klonopin), 0.5 MG PO BID Clozapine (Clozapine), 50 MG PO BID Docusate Sodium (Docusate Sodium), 100 MG PO BID Escitalopram Oxalate (Escitalopram Oxalate), 20 MG PO QAM Fenofibrate (Fenofibrate), 48 MG PO QAM Ferrous Sulfate (Ferrous Sulfate), 325 MG PO BIDM Fluticasone Furoate-Vilanterol (Breo Ellipta), 1 PUFF INH QAM Fluticasone Propionate (Nasal) (Flonase Allergy Relief), 2 SPRAYS JOSE QAM Folic Acid (Folvite), 1 MG PO QAM Gabapentin (Neurontin), 300 MG PO TID Gabapentin (Neurontin), 300 MG PO BID Montelukast Sodium (Singulair), 10 MG PO HS Oyster Shell (Oysco 500), 500 MG PO BID Perphenazine (Trilafon), 4 MG PO TID@0800,1200,1600 Ranitidine HCl (Ranitidine HCl), 150 MG PO BID Risperidone (Risperdal), 1 MG PO TID Sennosides-Docusate Sodium (Senna Plus), 1 TAB PO BID Tamsulosin Hcl (Flomax), 0.4 MG PO HS Umeclidinium [place] (Incruse Ellipta), 1 PUFF PO QAM Zoledronic Acid (Reclast), 1 DOSE INJ YEARLY Scheduled PRN Acetaminophen (Tylenol Arthritis Ext Rel), 650 MG PO Q8H PRN for Pain Albuterol Hfa (Ventolin Hfa), 2 PUFFS INH Q6H PRN for SOB/Wheezing Baclofen (Lioresal), 10 MG PO TID PRN for Muscle Spasms Physical Exam Vital Signs Date Time Temp Pulse Resp B/P (MAP) Pulse Ox O2 Delivery O2 Flow Rate FiO2 03/09/17 07:27 96 18 131/82 99 Nasal Cannula 2.0 03/09/17 07:00 92 03/09/17 06:55 97 Room Air 03/09/17 06:55 36.3 96 19 141/84 94 Room Air Physical Exam GENERAL: 56-year-old white female appears in no acute distress. MENTAL Status: Patient is alert and oriented 3. She does not appear anxious at this time. EYES: PERRLA. EOMs intact. EARS: Canals clear. TMs without fluid level noted. NECK: Supple, no lymphadenopathy noted. No carotid bruits noted. LUNGS: Patient has expiratory wheezes noted bilaterally. No rales or rhonchi noted. CARDIAC: Regular rate and rhythm without murmur. Pulses is full and equal throughout. ABDOMEN: Positive bowel sounds all 4 quadrants. Soft, nontender to palpation without organomegaly or masses. Medical Decision & Procedures Medications Administered Medications (Trade) Dose Ordered Sig/Janel Route Start Time Stop Time Status Last Admin Dose Admin Albuterol/ Ipratropium (Duoneb) 3 ml NOW STAT INH 03/09/17 06:55 03/09/17 06:57 DC 03/09/17 07:04 3 ML ED Course Patient was evaluated. The patient's EMR medication list were reviewed. The patient's pulse ox was 95% on room air when she came to the emergency room. She was placed on 2 L of oxygen. The patient was given a DuoNeb. Post treatment the patient had decreased expiratory wheeze bilaterally. She states she was feeling much better. The patient was independently evaluated by Dr. Gonzalez who agreed with treatment plan. She was discharged home in stable condition. Medical Decision Differential diagnosis included COPD exacerbation, panic attack, pneumonia, bronchitis [place] Drug Monitoring Program Search Results: patient reviewed within database Medication Reconcilliation Current Medication List: was personally reviewed by ms Blood Pressure Screening Patient's blood pressure: Normal blood pressure Impression Primary Impression: Shortness of breath Additional Impression: Panic attack Departure Information Dispostion Home / Self-Care Condition [employer] Referrals Naveed Adam III, M.D. (PCP) Forms HOME CARE DOCUMENTATION FORM, IMPORTANT VISIT INFORMATION Patient Instructions ED Panic Attack, My [facility] Additional Instructions Continue all medications as prescribed. Recommend talking with your psychiatrist about your increased anxiety. If you feel yourself getting very anxious try to calm herself down with deep breathing or may continue to use your haylee tea. If symptoms worsen, return to ER. Problem Qualifiers
== END 2017-03-09 08:25 | disposition home or self-care (01) ==
LOC: EDBD 06:45 → C.EDB 06:46
DX: R06.02 Shortness of breath (principal); F41.0 Panic disorder [episodic paroxysmal anxiety]; J44.9 Chronic obstructive pulmonary disease, unspecified; F32.9 Major depressive disorder, single episode, unspecified; R09.02 Hypoxemia; M85.80 Other specified disorders of bone density and structure, unspecified site; M81.0 Age-related osteoporosis without current pathological fracture; Z87.891 Personal history of nicotine dependence

== ENCOUNTER 2017-03-26 06:34 | Emergency (ER) | payer OTHER ==
[~2017-03-26] VITALS: Ht 162.6 cm; Wt 95.2 kg
[2017-03-26 06:39] VITALS: TEMP 36.4; Ht 162.6 cm; Wt 95.2 kg
--- NOTE | 2017-03-26 06:54 | EMERGENCY ROOM VISIT NOTE ---
History First contact with patient: 06:44 Chief Complaint: LEG PAIN,LEG INJURY Stated Complaint: LEG PAIN History of Present Illness The patient is a 56 year old female who presents to the Emergency Room via ambulance with complaints of "leg pain". The patient states that she has pain in her right buttock extending down to the level of her right knee. She rates the overall pain currently as a 9/10. It has been ongoing for the past 3 days. It is worsening. She notes it is a burning sensation. There is minimal leg swelling. There is no fever, chills, abdominal pain or back pain. Review of Systems A complete 10-point Review of Systems was discussed with the patient, with pertinent positives and negatives listed in the History of Present Illness. All remaining Review of Systems questions can be considered negative unless otherwise specified. Past Medical/Surgical History Medical Problems: (1) Accidental drug overdose (2) Alcohol abuse (3) Aspiration pneumonia (4) Back pain (5) Cataract (6) Chronic hepatitis C (7) Chronic obstructive lung disease (8) Chronic paranoid schizophrenia (9) Closed fracture of femur (10) COPD (chronic obstructive pulmonary disease) (11) Deep venous thrombosis (12) Depression (13) Drug abuse (14) Gastroesophageal reflux disease (15) Hepatitis C (16) Hypoxia (17) Hysterectomy (18) Opiate abuse, continuous (19) Osteomyelitis (20) Osteoporosis (21) Past Psych Meds (22) Psychosis (23) S/P ORIF (open reduction internal fixation) fracture (24) Schizoaffective disorder (25) Seizure (26) Sepsis (27) Suicidal ideation (28) Tinea (29) Tobacco user (30) UTI (urinary tract infection) Surgical Problems: (1) H/O colonoscopy (2) History of hysterectomy (3) S/p thoracic spinal surgery (4) S/P tonsillectomy Family History FH: lung cancer GRANDMOTHER Thyroid disorder MOTHER SISTER Social History Smoking Status: Former Smoker Alcohol Use: none Drug Use: none, other Marital Status: single Housing Status: lives with family Occupation Status: disabled Current/Historical Medications Scheduled B-Complex Vitamins (B Complex), 1 CAP PO DAILY Bupropion (Wellbutrin Sr), 100 MG PO QAM Calcitonin [place] (Calcitonin-[place]), 1 SPRAY NA QPM Celecoxib (Celebrex), 300 MG PO DAILY Cholecalciferol (D 1000), 1,000 UNIT PO QAM Clonazepam (Klonopin), 0.5 MG PO BID Clozapine (Clozapine), 50 MG PO BID Docusate Sodium (Docusate Sodium), 100 MG PO BID Escitalopram Oxalate (Escitalopram Oxalate), 20 MG PO QAM Fenofibrate (Fenofibrate), 48 MG PO QAM Ferrous Sulfate (Ferrous Sulfate), 325 MG PO BIDM Fluticasone Furoate-Vilanterol (Breo Ellipta), 1 PUFF INH QAM Fluticasone Propionate (Nasal) (Flonase Allergy Relief), 2 SPRAYS JOSE QAM Folic Acid (Folvite), 1 MG PO QAM Gabapentin (Neurontin), 300 MG PO TID Gabapentin (Neurontin), 300 MG PO BID Montelukast Sodium (Singulair), 10 MG PO HS Oyster Shell (Oysco 500), 500 MG PO BID Perphenazine (Trilafon), 4 MG PO TID@0800,1200,1600 Ranitidine HCl (Ranitidine HCl), 150 MG PO BID Risperidone (Risperdal), 1 MG PO TID Sennosides-Docusate Sodium (Senna Plus), 1 TAB PO BID Tamsulosin Hcl (Flomax), 0.4 MG PO HS Umeclidinium [place] (Incruse Ellipta), 1 PUFF PO QAM Zoledronic Acid (Reclast), 1 DOSE INJ YEARLY Scheduled PRN Acetaminophen (Tylenol Arthritis Ext Rel), 650 MG PO Q8H PRN for Pain Albuterol Hfa (Ventolin Hfa), 2 PUFFS INH Q6H PRN for SOB/Wheezing Baclofen (Lioresal), 10 MG PO TID PRN for Muscle Spasms Physical Exam Vital Signs Date Time Temp Pulse Resp B/P (MAP) Pulse Ox O2 Delivery O2 Flow Rate FiO2 03/26/17 07:46 82 18 153/90 98 Nasal Cannula 2.0 03/26/17 06:39 36.4 88 20 138/83 95 Nasal Cannula 2.0 Physical Exam VITAL SIGNS - Vital signs and nursing notes were reviewed. Stable. She is able to axillary load and ambulate to the bathroom. GENERAL -56-year-old female appearing her stated age who is in no acute distress. Communicates well with provider and answers questions appropriately. SKIN - Without rashes. No petechial rashes. The skin overlying the right hip is unremarkable. ABDOMEN - Abdominal contour normal without pulsations or visible masses. BS normoactive all four quadrants. No tenderness, palpable masses, hepatosplenomegaly, or ascites noted. EXTREMITIES - No clubbing or peripheral cyanosis. No pretibial edema present. +5 /5 strength noted in UE/LE bilaterally. R hip tenderness over greater trochanter NEUROLOGIC - Cranial nerves II through XII grossly intact. Sensory intact to light touch throughout. Medical Decision & Procedures ER Provider Diagnostic Interpretation: R PELVIS/UNILATERAL HIP 2-3VIEWS CLINICAL HISTORY: Right hip pain, no injury or trauma. COMPARISON: CT of the abdomen and pelvis October 13, 2016. FINDINGS: The sacroiliac joints and symphysis as are intact. There is no acute fracture within the pelvis or hips. Bilateral femoral internal fixations are noted. Hardware is intact. Healed proximal femoral fractures are noted. IMPRESSION: 1. No acute fracture within the pelvis or hips. 2. Status post bilateral femoral internal fixation with healed bilateral femoral fractures. Hardware intact. Electronically signed by: Benjamin Summers M.D. 03/26/2017 7:23 AM Dictated Date/Time: 03/26/2017 7:19 AM ULTRASOUND RIGHT LOWER EXTREMITY VENOUS CLINICAL HISTORY: Right leg pain. COMPARISON STUDY: Right lower extremity venous ultrasound dated 08/31/2016. TECHNIQUE: Real-time, grayscale, and color Doppler sonography of the deep veins of the right lower extremity was performed from the inguinal crease to the calf. Compression and augmentation were utilized. FINDINGS: There is no sonographic evidence of deep venous thrombosis identified in the right lower extremity. The common femoral, superficial femoral, and popliteal veins are patent and normally compressible. The greater saphenous vein and the profunda femoris vein at the junction with the common femoral vein are clear. The visualized calf veins are patent. IMPRESSION: There is no sonographic evidence of deep venous thrombosis identified in the right lower extremity. Electronically signed by: Hubert Ferreira M.D. 03/26/2017 7:49 AM Dictated Date/Time: 03/26/2017 7:49 AM Medical Decision Patient was seen and evaluated as above. She presents to us today with right hip pain. She is able to axillary load. She was able to ambulate to the bathroom. She is nontoxic on exam. She is well-known to myself here in the emergency department. X-ray was obtained of the hip and pelvis as well as ultrasound to rule out DVT. These were negative. I suspect she is likely experiencing radicular pain from the back. There is no evidence of fracture or infection. I recommend follow-up in the outpatient setting with her family doctor. She was educated upon management, educated upon worrisome symptoms in which to return, had questions answered prior to discharge, and was discharged home in good condition. In the evaluation and treatment of this patient, the following differential diagnoses were considered: Hip Fracture, Hip Dislocation, Greater Trochanteric Bursitis, Musculoskeletal Pain, Lumbar Radiculopathy. Hypertensive secondary to situation. Medication list reviewed. Impression Primary Impression: Leg pain, right Departure Information Dispostion Home / Self-Care Condition GOOD Referrals Naveed Adam III, M.D. (PCP) Patient Instructions My [facility] Additional Instructions You were seen in the emergency Department for right leg pain. X-ray reveals no fracture. The hardware appears to be intact in your right thigh region. If able, I recommend using [id number] Tylenol. Please do not exceed 3000mg a day. There is no clot in your leg. Please call your family doctor to schedule follow-up. Please return with any new/concerning symptoms. Thank you for your time.
--- NOTE | 2017-03-26 07:24 | DIAGNOSTIC IMAGING REPORT ---
R PELVIS/UNILATERAL HIP 2-3VIEWS CLINICAL HISTORY: Right hip pain, no injury or trauma. COMPARISON: CT of the abdomen and pelvis October 13, 2016. FINDINGS: The sacroiliac joints and symphysis as are intact. There is no acute fracture within the pelvis or hips. Bilateral femoral internal fixations are noted. Hardware is intact. Healed proximal femoral fractures are noted. IMPRESSION: 1. No acute fracture within the pelvis or hips. 2. Status post bilateral femoral internal fixation with healed bilateral femoral fractures. Hardware intact. Electronically signed by: Benjamin Summers M.D. 03/26/2017 7:23 AM Dictated Date/Time: 03/26/2017 7:19 AM
--- NOTE | 2017-03-26 07:50 | DIAGNOSTIC IMAGING REPORT ---
ULTRASOUND RIGHT LOWER EXTREMITY VENOUS CLINICAL HISTORY: Right leg pain. COMPARISON STUDY: Right lower extremity venous ultrasound dated 08/31/2016. TECHNIQUE: Real-time, grayscale, and color Doppler sonography of the deep veins of the right lower extremity was performed from the inguinal crease to the calf. Compression and augmentation were utilized. FINDINGS: There is no sonographic evidence of deep venous thrombosis identified in the right lower extremity. The common femoral, superficial femoral, and popliteal veins are patent and normally compressible. The greater saphenous vein and the profunda femoris vein at the junction with the common femoral vein are clear. The visualized calf veins are patent. IMPRESSION: There is no sonographic evidence of deep venous thrombosis identified in the right lower extremity. Electronically signed by: Hubert Ferreira M.D. 03/26/2017 7:49 AM Dictated Date/Time: 03/26/2017 7:49 AM
[2017-03-26 08:42] VITALS: BP 123/80; PULSE 82; O2SAT 98
== END 2017-03-26 08:42 | disposition home or self-care (01) ==
LOC: EDBD 06:34 → C.EDB 06:35
DX: M25.551 Pain in right hip (principal); B19.20 Unspecified viral hepatitis C without hepatic coma; J44.9 Chronic obstructive pulmonary disease, unspecified; F20.0 Paranoid schizophrenia; F32.9 Major depressive disorder, single episode, unspecified; K21.9 Gastro-esophageal reflux disease without esophagitis; M81.0 Age-related osteoporosis without current pathological fracture; F11.10 Opioid abuse, uncomplicated; R56.9 Unspecified convulsions; Z86.718 Personal history of other venous thrombosis and embolism; Z90.710 Acquired absence of both cervix and uterus; Z87.891 Personal history of nicotine dependence; Z80.1 Family history of malignant neoplasm of trachea, bronchus and lung

== ENCOUNTER 2017-04-25 17:07 | Observation (INO) | payer OTHER ==
[~2017-04-25] VITALS: Ht 162.6 cm; Wt 93.0 kg
[~2017-04-25 17:07] MED LIST changes: -BUPR100T8 PO; -CALCTAB27 PO; -CLON0.5T3 PO; -FERR1TAB62 PO; -RANI150T2 PO
[2017-04-25] MEDS ORDERED: ASPIRIN 81 MG CHEW PO STA (17:36)
[2017-04-25] MEDS ORDERED: SODIUM CHLORIDE 0.9% 500ML 500 ML IV STA (17:36)
[2017-04-25] MEDS ORDERED: FERR1TAB62 PO (18:03)
[2017-04-25] MEDS ORDERED: RANI150T2 PO (18:26)
--- NOTE | 2017-04-25 18:29 | DIAGNOSTIC IMAGING REPORT ---
CHEST ONE VIEW PORTABLE CLINICAL HISTORY: Acute change in mental status COMPARISON STUDY: 03/08/2017 FINDINGS: The cardiac and mediastinal contours remain stable. There is a lower right paraspinal mass, unchanged the prior study. There are postsurgical changes within the thoracic spine. There is a right-sided A-Port catheter. There are old right-sided rib fractures. There are bilateral interstitial opacities most pronounced within the right upper lung zone and left perihilar region.[ IMPRESSION: 1. Chronic bilateral interstitial opacities 2. Stable paraspinal deformity 3. No acute findings Electronically signed by: Bismark Galdamez M.D. 04/25/2017 6:28 PM Dictated Date/Time: 04/25/2017 6:26 PM
[2017-04-25 19:17] LABS: BASO % 0.4 %; BASO ABS # 0.03 K/uL (0-0.2); EOS % 2.6 %; EOS ABS # 0.21 K/uL (0-0.5); HEMATOCRIT 41.9 % (37-47); HEMOGLOBIN 13.8 g/dL (12.0-16.0); IG# 0.02 K/uL (0.00-0.02); LYMPH % 28.6 %; LYMPH ABS # 2.32 K/uL (1.2-3.4); MEAN CELL VOLUME 94.6 fL (80-100); MEAN CORPUSCULAR HEMOGLOBIN 31.2 pg (25-34); MEAN CORPUSCULAR HGB CONC 32.9 g/dl (32-36); MEAN PLATELET VOLUME 10.3 fL (7.4-10.4); MONO % 11.7 %; MONO ABS # 0.95 K/uL (0.11-0.59); NEUT % 56.5 %; NEUT ABS # 4.58 K/uL (1.4-6.5); PLATELET COUNT 171 K/uL (130-400); RED CELL DISTRIBUTION WIDTH CV 13.2 % (11.5-14.5); WHITE BLOOD COUNT 8.11 K/uL (4.8-10.8)
[2017-04-25 19:32] LABS: ALBUMIN 3.5 gm/dl (3.4-5.0); ALT/SGPT 40 U/L (12-78); AST/SGOT 34 U/L (15-37); BLOOD UREA NITROGEN 24 mg/dl (7-18); CALCIUM 9.2 mg/dl (8.5-10.1); CARBON DIOXIDE 30 mmol/L (21-32); GLUCOSE 81 mg/dl (70-99); LIPASE 228 U/L (73-393); POTASSIUM 4.4 mmol/L (3.5-5.1); SODIUM 139 mmol/L (136-145)
[2017-04-25 19:35] LABS: ALKALINE PHOSPHATASE 64 U/L (45-117); TOTAL PROTEIN 8.2 gm/dl (6.4-8.2)
--- NOTE | 2017-04-25 19:39 | DIAGNOSTIC IMAGING REPORT ---
CT HEAD WITHOUT CONTRAST (CT) CLINICAL HISTORY: Acute change in mental status COMPARISON STUDY: January 10, 2017 TECHNIQUE: Axial CT of the brain is performed from the vertex to the skull base. IV contrast was not administered for this examination. A dose lowering technique was utilized adhering to the principles of ALARA. CT DOSE: 767.83 mGy.cm FINDINGS: No intra or extra-axial mass lesions are visualized. There is no CT evidence of acute cortical infarction. There is no evidence of midline shift. There is no acute hemorrhage. No calvarial fractures are visualized. There are minimal white matter hypodensities likely on a small vessel basis. There is no evidence of pathologic ventricular dilatation. There is no evidence of acute sinusitis IMPRESSION: No acute intracranial findings Electronically signed by: Bismark Galdamez M.D. 04/25/2017 7:38 PM Dictated Date/Time: 04/25/2017 7:36 PM
[2017-04-25] MEDS ORDERED: CLON0.5T3 PO (19:41)
[2017-04-25] MEDS ORDERED: CALCTAB27 PO (20:10)
[2017-04-25] MEDS ORDERED: BUPR100T8 PO (20:10)
[2017-04-25] MEDS ORDERED: CLOZ100T18 PO (20:31)
[2017-04-25] MEDS ORDERED: LRS10 PO (20:31)
[2017-04-25] MEDS ORDERED: BREX1TAB4 PO (20:31)
[2017-04-25] MEDS ORDERED: CHOL1CAP57 PO (20:31)
[2017-04-25] MEDS ORDERED: CLC100 PO (20:31)
[2017-04-25] MEDS ORDERED: NYSS/ PO (20:31)
[2017-04-25] MEDS ORDERED: FLM4 PO (20:31)
[2017-04-25] MEDS ORDERED: PERP1TAB5 PO (20:31)
[2017-04-25] MEDS ORDERED: SNG10 PO (20:31)
[2017-04-25] MEDS ORDERED: FLV1 PO (20:39)
[2017-04-25] MEDS ORDERED: CELE1CAP28 PO (20:39)
[2017-04-25] MEDS ORDERED: GABA-1219 PO (20:39)
[2017-04-25] MEDS ORDERED: ACET650T9 PO (20:45)
[2017-04-25] MEDS ORDERED: PRED20TA PO (20:47)
--- NOTE | 2017-04-25 21:41 | History and Physical ---
History & Physical Date & Time of Service: Apr 25, 2017 at 21:41 Chief Complaint: Sob, Chest Pain, Ab Pain Primary Care Physician: Naveed Adam III, M.D. History of Present Illness Source: patient, clinic records, hospital records 56-year-old female followed by Dr. Adam. History of oxygen dependent COPD, interstitial lung disease, hepatitis C, chronic pain, schizophrenia, and other problems noted below. Presented to ED today complaining of chest pain, abdominal pain, shortness of breath that started a week or 2 ago. Patient unable to give detailed descriptions of her symptoms. Chest pain seems to be midsternal and possibly radiates to the left arm. It is not pleuritic in nature. Pain comes and goes, not exertional. Has intermittent dyspnea. Uses her inhalers with some relief. No fever or cough. Vague abdominal pain without nausea, vomiting, diarrhea, melena, hematochezia. No urinary symptoms. . Past Medical/Surgical History Chronic and Resolved Medical Problems: (1) Accidental drug overdose Status: Resolved (2) Alcohol abuse Permanent Comment: no recent use attends AA Status: Resolved (3) Aspiration pneumonia Status: Resolved (4) Back pain Status: Chronic (5) Cataract Status: Chronic (6) Chronic hepatitis C Status: Chronic (7) Chronic obstructive lung disease Status: Chronic (8) Chronic paranoid schizophrenia Status: Chronic (9) Closed fracture of femur Permanent Comment: s/p ORIF Status: Resolved (10) COPD (chronic obstructive pulmonary disease) Status: Chronic (11) Deep venous thrombosis Status: Chronic (12) Depression Status: Chronic (13) Drug abuse Permanent Comment: narcotic addiction due to chronic pain attends NA Status: Resolved (14) Gastroesophageal reflux disease Status: Chronic (15) Hepatitis C Status: Chronic (16) Hypoxia Status: Chronic (17) Hysterectomy Status: Resolved (18) Osteoporosis Status: Chronic (19) S/P ORIF (open reduction internal fixation) fracture Permanent Comment: femur Status: Chronic (20) Schizoaffective disorder Status: Chronic (21) Seizure Status: Resolved (22) Tinea Status: Resolved (23) Tobacco user Status: Chronic Surgical Problems: (1) H/O colonoscopy Status: Chronic (2) History of hysterectomy Status: Chronic (3) S/p thoracic spinal surgery Permanent Comment: 07/07/2015; Dr. Caballero at [facility] Status: Chronic (4) S/P tonsillectomy Status: Chronic . Family History FH: lung cancer GRANDMOTHER Thyroid disorder MOTHER SISTER Social History Smoking Status: Former Smoker Alcohol Use: None recently Drug Use: none, other Marital Status: single Housing status: lives with family Occupational Status: disabled Immunizations History of Influenza Vaccine: N/A History of Tetanus Vaccine?: utd Tetanus Immunization Date: Nov 22, 2006 History of Pneumococcal: Yes Pneumococcal Date: Dec 03, 2010 History of Hepatitis B Vaccine: Yes Hepatitis Immunization Date: Dec 03, 1997 Allergies Coded Allergies: Hydrocodone (Verified Allergy, Severe, DROWSY, 03/09/17) Haloperidol (Verified Allergy, Unknown, "MAKES ME GO INTO BLACKOUT", ) Hydroxyzine (Verified Allergy, Unknown, UNKNOWN, 03/09/17) INFO FROM [facility] [place] (Verified Allergy, Unknown, "LEVEL CAN GET TOO HIGH", 03/09/17) Oxycodone (Verified Adverse Reaction, Severe, DROWSY, 03/09/17) Molindone (Verified Adverse Reaction, Intermediate, PT FEELS LIKE SHES "JUMPING OUT OF HER SKIN", 03/09/17) Morphine and Related (Verified Adverse Reaction, Intermediate, DROWSY, 02/12) px was drowsy w/ pinpoint pupils and minimally responsive. stable VS. Following Morphine IR 15mg - 3 doses in prior 24 hours. Naloxone 0.4mg admin 3 times during that period. Fluphenazine (Verified Adverse Reaction, Unknown, confusion, 03/09/17) Home Medications Scheduled Brexpiprazole (Rexulti), 2 MG PO QAM Bupropion (Wellbutrin Sr), 100 MG PO QAM Calcitonin [place] (Calcitonin-[place]), 1 SPRAY NA QPM Celecoxib (Celecoxib), 300 MG PO DAILY Cholecalciferol (Vitamin D3), 1,000 INTERUNIT PO DAILY Clonazepam (Klonopin), 0.5 MG PO BID Clozapine (Clozapine), 100 MG PO TID Docusate Sodium (Docusate Sodium), 100 MG PO BID Escitalopram Oxalate (Escitalopram Oxalate), 30 MG PO QAM Fenofibrate (Fenofibrate), 48 MG PO QAM Ferrous Sulfate (Ferrous Sulfate), 325 MG PO BIDM Fluticasone Furoate-Vilanterol (Breo Ellipta), 1 PUFF INH QAM Fluticasone Propionate (Nasal) (Flonase Allergy Relief), 2 SPRAYS JOSE QAM Folic Acid (Folic Acid), 1 MG PO DAILY Gabapentin (Gabapentin), 300 MG PO TID Montelukast Sod (Montelukast Sodium), 10 MG PO HS Nystatin (Nystatin Suspension), 5 ML PO QID Oyster Shell (Oysco 500), 500 MG PO BID Perphenazine (Trilafon), 4 MG PO TID Ranitidine HCl (Ranitidine HCl), 150 MG PO BID Sennosides-Docusate Sodium (Senna Plus), 1 TAB PO BID Tamsulosin HCl (Tamsulosin HCl), 0.4 MG PO HS Umeclidinium [place] (Incruse Ellipta), 1 PUFF PO QAM Scheduled PRN Acetaminophen (Acetaminophen ER), 650 MG PO Q8 PRN for Fever Albuterol Hfa (Ventolin Hfa), 2 PUFFS INH Q6H PRN for SOB/Wheezing Baclofen (Baclofen), 10 MG PO TID PRN for Muscle Spasm Prednisone (Prednisone), 20 MG PO UD PRN for Rescue Kit Review of Systems Constitutional: No fever, No weight loss Eyes: No worsening of vision ENT: No nasal symptoms, No sore throat Respiratory: + shortness of breath, + dyspnea on exertion, No cough Cardiovascular: + problem reported (As noted above in HPI) Abdomen: + problem reported (As noted above in HPI) Genitourinary - Female: No dysuria, No hematuria Neurologic: + weakness, + problem reported (No headache) Endocrine: + fatigue, + excessive thirst, No excessive urination Hematologic / Lymphatic: No abnormal bleeding/bruising, No swollen lymph nodes Physical Exam Vital Signs Date Time Temp Pulse Resp B/P (MAP) Pulse Ox O2 Delivery O2 Flow Rate FiO2 04/25/17 21:38 86 04/25/17 21:05 86 22 127/88 96 04/25/17 19:15 86 18 127/88 98 Room Air 04/25/17 17:39 97 04/25/17 17:10 Nasal Cannula 2.0 97 04/25/17 17:10 97 Nasal Cannula 2.0 04/25/17 17:10 36.8 95 18 108/73 92 Room Air General Appearance: no apparent distress, + obese Head: normocephalic, atraumatic Eyes: normal inspection, PERRL, EOMI, sclerae normal, + pertinent finding ( Conjunctivae clear) ENT: normal ENT inspection, hearing grossly normal, + pertinent finding (Poor dentition) Neck: thyroid normal, trachea midline Respiratory/Chest: no respiratory distress, no accessory muscle use, + rales ( Scattered bilateral) Cardiovascular: regular rate, rhythm, no edema, no gallop, no JVD, no murmur, normal peripheral pulses Abdomen/GI: normal bowel sounds, non tender, soft, no organomegaly, no pulsatile mass Extremities/Musculoskelatal: no calf tenderness, + pertinent finding (No cyanosis or clubbing) Neurologic/Psych: fire marshal II-XII nml as tested (PERRL, EOMI, no facial palsy, no dysarthria), no motor/sensory deficits (Motor testing extremities grossly intact ), alert, oriented x 3, + depressed affect Skin: normal color, warm/dry, no rash Lymphatic: no adenopathy (Cervical) Diagnostics Laboratory Results Results Past 24 Hours Test 04/25/17 18:00 04/25/17 18:59 Range/Units Urine Color YELLOW Urine Appearance CLEAR CLEAR Urine pH 5.5 4.5-7.5 Urine Specific [place] 1.005 1.000-1.030 Urine Protein NEG NEG Urine Glucose (UA) NEG NEG Urine Ketones NEG NEG Urine Occult Blood NEG NEG Urine Nitrite NEG NEG Urine Bilirubin NEG NEG Urine Urobilinogen NEG NEG Urine Leukocyte Esterase TRACE NEG Urine WBC (Auto) 5-10 0-5 /hpf Urine RBC (Auto) 0-4 0-4 /hpf Urine Hyaline Casts (Auto) 0 0-5 /lpf Urine Epithelial Cells (Auto) 0-5 0-5 /lpf Urine Bacteria (Auto) 2+ NEG Urine Test NEG NEG Urine Opiates Screen NEG NEG Urine Methadone, Qualitative NEG NEG Urine Barbiturates NEG NEG Urine Phencyclidine (PCP) Level NEG NEG Ur Amphetamine/Methamphetamine NEG NEG MDMA (Ecstasy) Screen POS NEG Urine Benzodiazepines Screen NEG NEG Urine Cocaine Metabolite NEG NEG Urine Marijuana (THC) NEG NEG White Blood Count 8.11 4.8-10.8 K/uL Red Blood Count 4.43 4.2-5.4 M/uL Hemoglobin 13.8 12.0-16.0 g/dL Hematocrit 41.9 37-47 % Mean Corpuscular Volume 94.6 80-100 fL Mean Corpuscular Hemoglobin 31.2 25-34 pg Mean Corpuscular Hemoglobin Concent 32.9 32-36 g/dl Platelet Count 171 130-400 K/uL Mean Platelet Volume 10.3 7.4-10.4 fL Neutrophils (%) (Auto) 56.5 % Lymphocytes (%) (Auto) 28.6 % Monocytes (%) (Auto) 11.7 % Eosinophils (%) (Auto) 2.6 % Basophils (%) (Auto) 0.4 % Neutrophils # (Auto) 4.58 1.4-6.5 K/uL Lymphocytes # (Auto) 2.32 1.2-3.4 K/uL Monocytes # (Auto) 0.95 0.11-0.59 K/uL Eosinophils # (Auto) 0.21 0-0.5 K/uL Basophils # (Auto) 0.03 0-0.2 K/uL RDW Standard Deviation 46.0 36.4-46.3 fL RDW Coefficient of Variation 13.2 11.5-14.5 % Immature Granulocyte % (Auto) 0.2 % Immature Granulocyte # (Auto) 0.02 0.00-0.02 K/uL Venous Blood pH 7.34 7.36-7.41 Venous Blood Partial Pressure CO2 61 38.0-50.0 mmHg Venous Blood Partial Pressure O2 28 mmHg Venous Blood HCO3 32 mmol/L Venous Blood Oxygen Saturation < 60.0 % Venous Blood Base Excess 4.4 mEq/L Sodium Level 139 136-145 mmol/L Potassium Level 4.4 3.5-5.1 mmol/L Chloride Level 105 98-107 mmol/L Carbon Dioxide Level 30 21-32 mmol/L Anion Gap 4.0 3-11 mmol/L Blood Urea Nitrogen 24 7-18 mg/dl Creatinine 1.20 0.60-1.20 mg/dl Est Creatinine Clear Calc Drug Dose 58.0 ml/min Estimated GFR () 58.1 Estimated GFR (Non- 50.1 BUN/Creatinine Ratio 19.9 10-20 Random Glucose 81 70-99 mg/dl Calcium Level 9.2 8.5-10.1 mg/dl Total Bilirubin 0.3 0.2-1 mg/dl Direct Bilirubin < 0.1 0-0.2 mg/dl Aspartate Amino Transf (AST/SGOT) 34 15-37 U/L Alanine Aminotransferase (ALT/SGPT) 40 12-78 U/L Alkaline Phosphatase 64 45-117 U/L Total Protein 8.2 6.4-8.2 gm/dl Albumin 3.5 3.4-5.0 gm/dl Lipase 228 73-393 U/L Microbiology Results 04/25/17 Urine Culture, Received Pending Diagnostic Radiology Chest x-ray demonstrated chronic bilateral interstitial opacities. Right-sided vascular access device noted. No apparent acute processes. . EKG EKG performed at 1718 reviewed and demonstrated normal sinus rhythm at 90/minute , QTc 467 ms, T-wave flattening inferior and lateral precordial leads, no significant ST changes. . Impression Assessment and Plan CHEST PAIN Atypical chest pain, difficult to characterize. Initial troponin negative. No acute EKG changes. Check follow troponins and EKG in the morning. Check d-dimer to screen for thromboembolic disease. DYSPNEA COPD and interstitial lung disease. Patient states that she is going to have a lung biopsy in future, but she is uncertain who is to perform that. Continue usual pulmonary medications. CHRONIC HYPOXIC RESPIRATORY FAILURE Secondary to COPD and/or interstitial lung disease. Patient stable. Continue supplemental O2. ABDOMINAL PAIN Patient complains of vague abdominal pain without nausea, vomiting, diarrhea, melena, hematochezia. Examination benign. LFTs and lipase normal. Check repeat LFTs, lipase, amylase in the morning. CHRONIC PAIN Continue usual medications. Avoid narcotics. SCHIZOPHRENIA / DEPRESSION Continue usual medications. VTE PROPHYLAXIS SQ enoxaparin. Ambulate. RESUSCITATION STATUS Full resuscitation. DISPOSITION Observation status on Telemetry Unit. Family Medicine follow-up with Dr. Adam. . Resuscitation Status VTE Prophylaxis Will order VTE Prophylaxis: Yes
[2017-04-25] MEDS ORDERED: NITROGLYCERIN 0.4 MG SL PER TAB CHARGE SL PRN (21:45)
[2017-04-25 22:05] LABS: PTT PATIENT 24.6 SECONDS (21.0-31.0)
[2017-04-25] MEDS ORDERED: ACETAMINOPHEN 500 MG TAB PO PRN (22:15)
[2017-04-25] MEDS ORDERED: RANITIDINE HCL 150 MG TAB PO ONE (23:30)
[2017-04-25] MEDS ORDERED: CLOZAPINE 100 MG TAB PO ONE (23:30)
[2017-04-25] MEDS ORDERED: MONTELUKAST SOD 10 MG TAB PO ONE (23:30)
[2017-04-25] MEDS ORDERED: PERPHENAZINE 2 MG TAB PO ONE (23:30)
[2017-04-25] MEDS ORDERED: GABAPENTIN 300 MG CAP PO ONE (23:30)
[2017-04-26] VITALS (9 sets, daily range): BP systolic 96–136; BP diastolic 61–88; PULSE 68–97; TEMP 36.3–36.9; O2SAT 92–100; Ht 162.6 cm; Wt 93.0 kg
[2017-04-26] MEDS ORDERED: CLONAZEPAM 0.5 MG TAB ONE (00:07)
--- NOTE | 2017-04-26 00:29 | EMERGENCY ROOM VISIT NOTE ---
History Report prepared by Stanley: Meghna Wilson Under the Supervision of: Dr. Dougie Bravo D.O. First contact with patient: 17:23 Chief Complaint: SHORTNESS OF BREATH Stated Complaint: SOB, CHEST PAIN, AB PAIN Nursing Triage Summary: Patient arrived via ALS from home. Patient c/o CP, SOB and abdominal pain for several weeks. Patient denies N/V/D. History of Present Illness The patient is a 56 year old female who presents to the Emergency Room with complaints of worsening SOB starting a couple weeks ago. She presents to the ED by EMS. She also complains of chest pain that started 1 week ago and abdominal pain that started a couple days ago. She states her chest pain comes and goes with stress levels. She denies any cough or rhinorrhea. She wears 2 L of oxygen during the day and 3 L at night. She still has her gallbladder and appendix. She intermittently states her shortness of breath has been present since the 80s. She is truly unable to really give a history in regards to her chest pain. The history is limited secondary to the patient's altered mental status. Source of History: patient History Limited By: AMS Onset: couple weeks ago Position: other (global) Quality: other (SOB) Timing: worsening Associated Symptoms: + chest pain, + abdominal pain, No cough Review of Systems See HPI for pertinent positives & negatives. A total of 10 systems reviewed and were otherwise negative. Past Medical & Surgical Medical Problems: (1) Accidental drug overdose (2) Alcohol abuse (3) Aspiration pneumonia (4) Back pain (5) Cataract (6) Chest pain (7) Chronic hepatitis C (8) Chronic obstructive lung disease (9) Chronic paranoid schizophrenia (10) Closed fracture of femur (11) COPD (chronic obstructive pulmonary disease) (12) Deep venous thrombosis (13) Depression (14) Drug abuse (15) Gastroesophageal reflux disease (16) Hepatitis C (17) Hypoxia (18) Hysterectomy (19) Opiate abuse, continuous (20) Osteomyelitis (21) Osteoporosis (22) Past Psych Meds (23) Psychosis (24) S/P ORIF (open reduction internal fixation) fracture (25) Schizoaffective disorder (26) Seizure (27) Sepsis (28) Suicidal ideation (29) Tinea (30) Tobacco user (31) UTI (urinary tract infection) Surgical Problems: (1) H/O colonoscopy (2) History of hysterectomy (3) S/p thoracic spinal surgery (4) S/P tonsillectomy Family History FH: lung cancer GRANDMOTHER Thyroid disorder MOTHER SISTER Social History Smoking Status: Former Smoker Marital Status: single Occupation Status: disabled Current/Historical Medications Scheduled Brexpiprazole (Rexulti), 2 MG PO QAM Bupropion (Wellbutrin Sr), 100 MG PO QAM Calcitonin [place] (Calcitonin-[place]), 1 SPRAY NA QPM Celecoxib (Celecoxib), 300 MG PO DAILY Cholecalciferol (Vitamin D3), 1,000 INTERUNIT PO DAILY Clonazepam (Klonopin), 0.5 MG PO BID Clozapine (Clozapine), 100 MG PO TID Docusate Sodium (Docusate Sodium), 100 MG PO BID Escitalopram Oxalate (Escitalopram Oxalate), 30 MG PO QAM Fenofibrate (Fenofibrate), 48 MG PO QAM Ferrous Sulfate (Ferrous Sulfate), 325 MG PO BIDM Fluticasone Furoate-Vilanterol (Breo Ellipta), 1 PUFF INH QAM Fluticasone Propionate (Nasal) (Flonase Allergy Relief), 2 SPRAYS JOSE QAM Folic Acid (Folic Acid), 1 MG PO DAILY Gabapentin (Gabapentin), 300 MG PO TID Montelukast Sod (Montelukast Sodium), 10 MG PO HS Nystatin (Nystatin Suspension), 5 ML PO QID Oyster Shell ([place] 500), 500 MG PO BID Perphenazine (Trilafon), 4 MG PO TID Ranitidine HCl (Ranitidine HCl), 150 MG PO BID Sennosides-Docusate Sodium (Senna Plus), 1 TAB PO BID Tamsulosin HCl (Tamsulosin HCl), 0.4 MG PO HS Umeclidinium [place] (Incruse Ellipta), 1 PUFF PO QAM Scheduled PRN Acetaminophen (Acetaminophen ER), 650 MG PO Q8 PRN for Fever Albuterol Hfa (Ventolin Hfa), 2 PUFFS INH Q6H PRN for SOB/Wheezing Baclofen (Baclofen), 10 MG PO TID PRN for Muscle Spasm Prednisone (Prednisone), 20 MG PO UD PRN for Rescue Kit Allergies Coded Allergies: Hydrocodone (Verified Allergy, Severe, DROWSY, 03/09/17) Haloperidol (Verified Allergy, Unknown, "MAKES ME GO INTO BLACKOUT", ) Hydroxyzine (Verified Allergy, Unknown, UNKNOWN, 03/09/17) INFO FROM [facility] (Verified Allergy, Unknown, "LEVEL CAN GET TOO HIGH", 03/09/17) Oxycodone (Verified Adverse Reaction, Severe, DROWSY, 03/09/17) Molindone (Verified Adverse Reaction, Intermediate, PT FEELS LIKE SHES "JUMPING OUT OF HER SKIN", 03/09/17) Morphine and Related (Verified Adverse Reaction, Intermediate, DROWSY, 02/12) px was drowsy w/ pinpoint pupils and minimally responsive. stable VS. Following Morphine IR 15mg - 3 doses in prior 24 hours. Naloxone 0.4mg admin 3 times during that period. Fluphenazine (Verified Adverse Reaction, Unknown, confusion, 03/09/17) Physical Exam Vital Signs Date Time Temp Pulse Resp B/P (MAP) Pulse Ox O2 Delivery O2 Flow Rate FiO2 04/25/17 21:38 86 04/25/17 21:05 86 22 127/88 96 04/25/17 19:15 86 18 127/88 98 Room Air 04/25/17 17:39 97 04/25/17 17:10 Nasal Cannula 2.0 97 04/25/17 17:10 97 Nasal Cannula 2.0 04/25/17 17:10 36.8 95 18 108/73 92 Room Air Physical Exam GENERAL: Sitting up in bed, confused, disoriented, but able to follow commands. EYE EXAM: normal conjunctiva. PERRL and EOM's intact. OROPHARYNX: no exudate, no erythema, lips, buccal mucosa, and tongue normal and mucous membranes are moist NECK: supple, no nuchal rigidity, no adenopathy, non-tender LUNGS: Clear to auscultation. Normal chest wall mechanics HEART: no murmurs, S1 normal and S2 normal ABDOMEN: abdomen soft, non-tender, normo-active bowel sounds, no masses, no rebound or guarding. BACK: Back is symmetrical on inspection and there is no deformity, no midline tenderness, no CVA tenderness. SKIN: no rashes and no bruising UPPER EXTREMITIES: upper extremities are grossly normal. LOWER EXTREMITIES: No pitting edema. NEURO EXAM: Awake, alert, intermittently following commands but falls asleep quickly, not oriented to year. Intermittently forgetting events and repeating story. Cranial nerves II-XII grossly intact. No weakness of arms, no weakness of legs. Medical Decision & Procedures ER Provider Diagnostic Interpretation: Xray results as stated below per my and the radiologist's interpretation. Radiology results as stated below per my review and the radiologist's interpretation: CHEST ONE VIEW PORTABLE CLINICAL HISTORY: Acute change in mental status COMPARISON STUDY: 03/08/2017 FINDINGS: The cardiac and mediastinal contours remain stable. There is a lower right paraspinal mass, unchanged the prior study. There are postsurgical changes within the thoracic spine. There is a right-sided A-Port catheter. There are old right-sided rib fractures. There are bilateral interstitial opacities most pronounced within the right upper lung zone and left perihilar region.[ IMPRESSION: 1. Chronic bilateral interstitial opacities 2. Stable paraspinal deformity 3. No acute findings Electronically signed by: Bismark Galdamez M.D. 04/25/2017 6:28 PM Dictated Date/Time: 04/25/2017 6:[address] HEAD WITHOUT CONTRAST (CT) CLINICAL HISTORY: Acute change in mental status COMPARISON STUDY: January 10, 2017 TECHNIQUE: Axial CT of the brain is performed from the vertex to the skull base. IV contrast was not administered for this examination. A dose lowering technique was utilized adhering to the principles of ALARA. CT DOSE: 767.83 mGy.cm FINDINGS: No intra or extra-axial mass lesions are visualized. There is no CT evidence of acute cortical infarction. There is no evidence of midline shift. There is no acute hemorrhage. No calvarial fractures are visualized. There are minimal white matter hypodensities likely on a small vessel basis. There is no evidence of pathologic ventricular dilatation. There is no evidence of acute sinusitis IMPRESSION: No acute intracranial findings Electronically signed by: Bismark Galdamez M.D. 04/25/2017 7:38 PM Dictated Date/Time: 04/25/2017 7:36 PM Laboratory Results 04/25/17 18:59 Red Blood Count 4.43, Mean Corpuscular Volume 94.6, Mean Corpuscular Hemoglobin 31.2, Mean Corpuscular Hemoglobin Concent 32.9, Mean Platelet Volume 10.3, Neutrophils (%) (Auto) 56.5, Lymphocytes (%) (Auto) 28.6, Monocytes (%) (Auto) 11.7, Eosinophils (%) (Auto) 2.6, Basophils (%) (Auto) 0.4, Neutrophils # (Auto ) 4.58, Lymphocytes # (Auto) 2.32, Monocytes # (Auto) 0.95, Eosinophils # (Auto ) 0.21, Basophils # (Auto) 0.03 04/25/17 18:59 Test 04/25/17 18:00 04/25/17 18:59 Urine Color YELLOW Urine Appearance CLEAR (CLEAR) Urine pH 5.5 (4.5-7.5) Urine Specific [place] 1.005 (1.000-1.030) Urine Protein NEG (NEG) Urine Glucose (UA) NEG (NEG) Urine Ketones NEG (NEG) Urine Occult Blood NEG (NEG) Urine Nitrite NEG (NEG) Urine Bilirubin NEG (NEG) Urine Urobilinogen NEG (NEG) Urine Leukocyte Esterase TRACE (NEG) Urine WBC (Auto) 5-10 /hpf (0-5) Urine RBC (Auto) 0-4 /hpf (0-4) Urine Hyaline Casts (Auto) 0 /lpf (0-5) Urine Epithelial Cells (Auto) 0-5 /lpf (0-5) Urine Bacteria (Auto) 2+ (NEG) Urine Test NEG (NEG) Urine Opiates Screen NEG (NEG) Urine Methadone, Qualitative NEG (NEG) Urine Barbiturates NEG (NEG) Urine Phencyclidine (PCP) Level NEG (NEG) Ur Amphetamine/Methamphetamine NEG (NEG) MDMA (Ecstasy) Screen POS (NEG) Urine Benzodiazepines Screen NEG (NEG) Urine Cocaine Metabolite NEG (NEG) Urine Marijuana (THC) NEG (NEG) White Blood Count 8.11 K/uL (4.8-10.8) Red Blood Count 4.43 M/uL (4.2-5.4) Hemoglobin 13.8 g/dL (12.0-16.0) Hematocrit 41.9 % (37-47) Mean Corpuscular Volume 94.6 fL (80-100) Mean Corpuscular Hemoglobin 31.2 pg (25-34) Mean Corpuscular Hemoglobin Concent 32.9 g/dl (32-36) Platelet Count 171 K/uL (130-400) Mean Platelet Volume 10.3 fL (7.4-10.4) Neutrophils (%) (Auto) 56.5 % Lymphocytes (%) (Auto) 28.6 % Monocytes (%) (Auto) 11.7 % Eosinophils (%) (Auto) 2.6 % Basophils (%) (Auto) 0.4 % Neutrophils # (Auto) 4.58 K/uL (1.4-6.5) Lymphocytes # (Auto) 2.32 K/uL (1.2-3.4) Monocytes # (Auto) 0.95 K/uL (0.11-0.59) Eosinophils # (Auto) 0.21 K/uL (0-0.5) Basophils # (Auto) 0.03 K/uL (0-0.2) RDW Standard Deviation 46.0 fL (36.4-46.3) RDW Coefficient of Variation 13.2 % (11.5-14.5) Immature Granulocyte % (Auto) 0.2 % Immature Granulocyte # (Auto) 0.02 K/uL (0.00-0.02) Prothrombin Time 10.2 SECONDS (9.0-12.0) Prothromb Time International Ratio 1.0 (0.9-1.1) Activated Partial Thromboplast Time 24.6 SECONDS (21.0-31.0) Partial Thromboplastin Ratio 0.9 Venous Blood pH 7.34 (7.36-7.41) Venous Blood Partial Pressure CO2 61 mmHg (38.0-50.0) Venous Blood Partial Pressure O2 28 mmHg Venous Blood HCO3 32 mmol/L Venous Blood Oxygen Saturation < 60.0 % Venous Blood Base Excess 4.4 mEq/L Anion Gap 4.0 mmol/L (3-11) Est Creatinine Clear Calc Drug Dose 58.0 ml/min Estimated GFR () 58.1 Estimated GFR (Non- 50.1 BUN/Creatinine Ratio 19.9 (10-20) Calcium Level 9.2 mg/dl (8.5-10.1) Total Bilirubin 0.3 mg/dl (0.2-1) Direct Bilirubin < 0.1 mg/dl (0-0.2) Aspartate Amino Transf (AST/SGOT) 34 U/L (15-37) Alanine Aminotransferase (ALT/SGPT) 40 U/L (12-78) Alkaline Phosphatase 64 U/L (45-117) Troponin I < 0.015 ng/ml (0-0.045) Total Protein 8.2 gm/dl (6.4-8.2) Albumin 3.5 gm/dl (3.4-5.0) Lipase 228 U/L (73-393) Laboratory results per my review. Medications Administered Medications (Trade) Dose Ordered Sig/Janel Route Start Time Stop Time Status Last Admin Dose Admin Aspirin (Aspirin Chew) 324 mg NOW STAT PO 04/25/17 17:36 04/25/17 17:39 DC 04/25/17 19:12 324 MG Sodium Chloride 500 ml @ 999 mls/hr Q31M STAT IV 04/25/17 17:36 04/25/17 18:06 DC 04/25/17 19:12 999 MLS/HR ECG Per My Interpretation Indication: SOB/dyspnea Rate (beats per minute): 92 Rhythm: sinus rhythm Findings: 1st degree AV block, other (normal axis, T wave flattening inferior) Comparison ECG Date: 08-Mar-2017 Change: no significant change ED Course ED COURSE: Vital signs were reviewed and showed normal vitals. The patients medical record was reviewed The above diagnostic studies were performed and reviewed. ED treatments and interventions as stated above. 1727: The patient was evaluated in room C6. A complete history and physical examination was performed. 173: NSS 500 ml @ 999 mls/hr IV, Aspirin 324 mg PO. 9: Upon reevaluation, the patient is stable. I discussed my findings with the patient and she understands and agrees with the treatment plan. Based on the patients age, coexisting illnesses, exam and lab findings the decision to treat as an inpatient was made. The patient remained stable while under my care. The patient will be evaluated for further management. 1999: I reviewed the patient's case with Dr. Arreaga, [facility] hospitalist. He will evaluate the patient for further management. Medical Decision Differential diagnoses includes but is not limited to toxic, metabolic, infectious, traumatic, cardiac, neurologic, hematologic, psychiatric and inflammatory etiologies. Patient is a 56-year-old female who presents to ER for altered has difficulty staying awake. She complains of chest pain which she is unable to give a history about accommodation with shortness of breath which has been present since the 80s. She also complains of some mild abdominal pain but is requesting to eat. Labs were obtained and CBC all BMP, LFTs, bilirubin and troponin was unremarkable. UA does have a small amount of bacteria and only 5 white cells. was negative. VBG shows a pH is 7.34 along with a CO2 of 61. Do not believe that this consistent with a UTI/with her drug use. Medication Reconcilliation Current Medication List: was personally reviewed by me Blood Pressure Screening Patient's blood pressure: Normal blood pressure Blood pressure disposition: Did not require urgent referral Consults Time Called: 1950 Consulting Physician: Dr. Arreaga [facility] hospitalist Returned Call: 1999 I reviewed the patient's case with him. He will evaluate the patient for further management. Impression Primary Impression: Altered mental status Additional Impressions: Dyspnea Chest pain Scribe Attestation The scribe's documentation has been prepared under my direction and personally reviewed by me in its entirety. I confirm that the note above accurately reflects all work, treatment, procedures, and medical decision making performed by me. Departure Information Dispostion Being Evaluated By Hospitalist Referrals Naveed Adam III, M.D. (PCP) Patient Instructions My [facility] Problem Qualifiers Primary Impression: Altered mental status Altered mental status type: unspecified Qualified Codes: R41.82 - Altered mental status, unspecified Additional Impressions: Dyspnea Dyspnea type: unspecified Qualified Codes: R06.00 - Dyspnea, unspecified Chest pain Chest pain type: unspecified Qualified Codes: R07.9 - Chest pain, unspecified
[2017-04-26] MEDS ORDERED: ACETAMINOPHEN 500 MG TAB PO ONE (01:05)
[2017-04-26] MEDS: BACLOFEN 10 MG TAB PO PRN ×2 (02:01→14:21)
[2017-04-26] MEDS ORDERED: ACETAMINOPHEN 325 MG TAB PO PRN (02:15)
[2017-04-26 05:59] LABS: HEMATOCRIT 38.5 % (37-47); HEMOGLOBIN 12.8 g/dL (12.0-16.0); MEAN CELL VOLUME 95.3 fL (80-100); MEAN CORPUSCULAR HEMOGLOBIN 31.7 pg (25-34); MEAN CORPUSCULAR HGB CONC 33.2 g/dl (32-36); MEAN PLATELET VOLUME 10.2 fL (7.4-10.4); PLATELET COUNT 157 K/uL (130-400); RED CELL DISTRIBUTION WIDTH CV 13.6 % (11.5-14.5); RED CELL DISTRIBUTION WIDTH SD 47.1 fL (36.4-46.3); WHITE BLOOD COUNT 5.99 K/uL (4.8-10.8)
[2017-04-26 06:18] LABS: ALBUMIN 3.2 gm/dl (3.4-5.0); ALT/SGPT 34 U/L (12-78); AST/SGOT 27 U/L (15-37); BLOOD UREA NITROGEN 21 mg/dl (7-18); CALCIUM 9.2 mg/dl (8.5-10.1); CARBON DIOXIDE 29 mmol/L (21-32); CREATININE 0.97 mg/dl (0.60-1.20); GLUCOSE 99 mg/dl (70-99); LIPASE 191 U/L (73-393); SODIUM 143 mmol/L (136-145)
[2017-04-26 06:23] LABS: ALKALINE PHOSPHATASE 58 U/L (45-117); TOTAL PROTEIN 7.2 gm/dl (6.4-8.2)
[2017-04-26] MEDS: DOCUSATE SODIUM 100 MG CAP PO SCH ×2 (09:41→20:24)
[2017-04-26] MEDS: NYSTATIN SUSP 500,000 U/5 ML UDC PO SCH ×4 (09:41→20:23)
[2017-04-26] MEDS: FLUTICASONE PROPIONATE NA SPR 16 GM BTL NAE SCH (09:42)
[2017-04-26] MEDS: RANITIDINE HCL 150 MG TAB PO SCH ×2 (09:42→20:27)
[2017-04-26] MEDS: CLOZAPINE 100 MG TAB PO SCH ×3 (09:43→20:24)
[2017-04-26] MEDS: CeleBREX 100 MG CAP PO SCH (09:43)
[2017-04-26] MEDS: FENOFIBRATE 48 MG TAB PO SCH (09:44)
[2017-04-26] MEDS: DOCUSATE SODIUM/SENNA 50/8.6MG TAB PO SCH ×2 (09:44→20:25)
[2017-04-26] MEDS: ENOXAPARIN 40 MG/0.4 ML SYR SC SCH (09:45)
[2017-04-26] MEDS: BuPROPion SR 100 MG TABCR PO SCH (09:45)
[2017-04-26] MEDS: PERPHENAZINE 2 MG TAB PO SCH ×3 (09:45→20:26)
[2017-04-26] MEDS: ESCITALOPRAM OXALATE 20 MG TAB PO SCH (09:46)
[2017-04-26] MEDS: GABAPENTIN 300 MG CAP PO SCH ×3 (09:46→20:26)
[2017-04-26] MEDS: CLONAZEPAM 0.5 MG TAB PO SCH ×2 (09:48→20:28)
[2017-04-26] MEDS ORDERED: OPTIRAY 320 IV PRN (10:45)
--- NOTE | 2017-04-26 11:51 | DIAGNOSTIC IMAGING REPORT ---
CT ANGIOGRAPHY OF THE CHEST, PULMONARY EMBOLUS PROTOCOL CLINICAL HISTORY: Shortness of breath, elevated d-dimer and chest pain. COMPARISON STUDY: Chest CT March 04, 2017 and chest radiograph April 25, 2017. TECHNIQUE: Following IV administration of 84 mL of Optiray-320, helical axial images of the chest were obtained utilizing the pulmonary embolus protocol. Maximal intensity projections and sagittal and coronal reformats were viewed on an independent 3D workstation. IV contrast was administered without complication. A dose lowering technique was utilized adhering to the principles of ALARA. CT DOSE: 588.21 mGy.cm FINDINGS: No central pulmonary emboli are identified. The lobar, segmental and subsegmental pulmonary arteries are suboptimally assessed due to respiratory motion. There is no evidence for thoracic aortic dissection. The heart is moderately enlarged. There is no pericardial effusion. There has been interval development of mild mediastinal and bilateral hilar lymphadenopathy. Index right suprahilar node measures 1.6 cm in short axis diameter. A right internal jugular [id number] is in place. Soft tissue gas within the anterior right chest wall is likely related to accessing the port. There is no pneumothorax or pleural effusion. Multifocal groundglass opacities with associated bronchiectasis and emphysematous/cystic change throughout the lungs are noted. Interval increase in multifocal groundglass opacity throughout the lungs is noted since exam of March 04, 2017. There is no cavitation. There is no pneumomediastinum. A small hiatal hernia is present. The patient is status post T6-T11 fusion. Multiple thoracic spine compression deformities are unchanged with multifocal bony irregularity. Associated paravertebral soft tissues unchanged. This is similar to exam of March 04, 2017 and November 26, 2016. Upper abdomen is unremarkable. IMPRESSION: 1. No pulmonary emboli identified although exam moderately compromised due to respiratory motion artifact which particularly affects visualization of the lower lobe pulmonary arteries. 2. Interval increase in multifocal groundglass opacities throughout the lungs which could reflect an infectious process, pulmonary edema or progression of interstitial lung disease superimposed upon chronic interstitial lung disease. 3. Unchanged postoperative appearance of the thoracic spine with multilevel endplate irregularity and compression deformities, as described above. Stable paravertebral soft tissue. The findings suggest chronic changes with pseudoarthrosis. 4. Interval development of mild mediastinal and hilar lymphadenopathy. This is likely reactive however to be assessed on subsequent exams to ensure resolution. Electronically signed by: Benjamin Summers M.D. 04/26/2017 11:49 AM Dictated Date/Time: 04/26/2017 11:34 AM
--- NOTE | 2017-04-26 20:41 | Progress Note ---
Medicine Progress Note Date & Time of Visit: Apr 26, 2017 at 08:32. Subjective Pt was seen and examined Lying in bed with no distress Pt said that her breathing seems to improved She denies any chest pain, palpitation, dizziness and SOB Objective Last 8 Hrs Date Time Temp Pulse Resp B/P (MAP) Pulse Ox O2 Delivery O2 Flow Rate FiO2 04/26/17 19:36 36.7 97 22 135/72 (93) 95 Nasal Cannula 2.0 04/26/17 16:00 92 Nasal Cannula 2.0 04/26/17 15:36 36.3 75 20 136/83 (100) 92 Room Air 04/26/17 13:45 36.4 76 16 111/65 (80) 100 Nasal Cannula 2.0 Physical Exam: General- No acute distress Head- atraumatic Eyes- PERRL, EOMI ENT- oropharynx clear Neck- supple, no JVD Lungs- Poor air entry Heart- regular rhythm Abdomen- normal bowel sounds, soft Extremities-no calf tenderness Neuro- alert, oriented x 3; PERRL, EOMI Skin- warm & dry Laboratory Results: Last 24 Hours Test 04/26/17 05:46 White Blood Count 5.99 K/uL Red Blood Count 4.04 M/uL Hemoglobin 12.8 g/dL Hematocrit 38.5 % Mean Corpuscular Volume 95.3 fL Mean Corpuscular Hemoglobin 31.7 pg Mean Corpuscular Hemoglobin Concent 33.2 g/dl RDW Standard Deviation 47.1 fL RDW Coefficient of Variation 13.6 % Platelet Count 157 K/uL Mean Platelet Volume 10.2 fL D-Dimer 530 ug/L FEU Sodium Level 143 mmol/L Potassium Level 4.0 mmol/L Chloride Level 110 mmol/L Carbon Dioxide Level 29 mmol/L Anion Gap 4.0 mmol/L Blood Urea Nitrogen 21 mg/dl Creatinine 0.97 mg/dl Est Creatinine Clear Calc Drug Dose 72.4 ml/min Estimated GFR () 75.1 Estimated GFR (Non- 64.8 BUN/Creatinine Ratio 21.3 Random Glucose 99 mg/dl Calcium Level 9.2 mg/dl Total Bilirubin 0.5 mg/dl Aspartate Amino Transf (AST/SGOT) 27 U/L Alanine Aminotransferase (ALT/SGPT) 34 U/L Alkaline Phosphatase 58 U/L Troponin I < 0.015 ng/ml Total Protein 7.2 gm/dl Albumin 3.2 gm/dl Globulin 4.0 gm/dl Albumin/Globulin Ratio 0.8 Amylase Level 77 U/L Lipase 191 U/L Assessment & Plan CHEST PAIN Atypical chest pain Troponinx2 negative EKG showed no ischemic changes CTA chest showed no PE Resolved DYSPNEA COPD and interstitial lung disease. On chronic oxygen D-Dimer elevated CXR showed Chronic bilateral interstitial opacities CTA chest negative for PE and interval increase in multifocal ground glass opacities throughout the lungs. Improved CHRONIC HYPOXIC RESPIRATORY FAILURE Secondary to COPD and/or interstitial lung disease. Continue supplemental O2. stable ABDOMINAL PAIN LFTs and lipase normal. Tolerated diet Stable CHRONIC PAIN Continue usual medications. Avoid narcotics. SCHIZOPHRENIA / DEPRESSION Continue usual medications. VTE PROPHYLAXIS SQ enoxaparin. Ambulate. RESUSCITATION STATUS Full resuscitation. DISPOSITION Will discharge in am Current Inpatient Medications: Current Inpatient Medications Medications (Trade) Dose Ordered Sig/Janel Route Start Time Stop Time Status Last Admin Dose Admin Enoxaparin Sodium (Lovenox Inj) 40 mg DAILY SC 04/26/17 09:00 05/26/17 08:59 04/26/17 09:45 40 MG Nitroglycerin (Nitrostat Tab) 0.4 mg UD PRN SL 04/25/17 21:45 05/25/17 21:44 Albuterol (Ventolin Hfa Inhaler) 2 puffs Q6H PRN INH 04/25/17 22:15 05/25/17 22:14 Baclofen (Lioresal Tab) 10 mg TID PRN PO 04/25/17 22:15 05/25/17 22:14 04/26/17 14:21 10 MG Bupropion HCl (Wellbutrin-Sr Tab) 100 mg QAM PO 04/26/17 09:00 05/26/17 08:59 04/26/17 09:45 100 MG Calcitonin [place] (Fortical Nasal [place]) 1 spray QPM NA 04/26/17 21:00 05/26/17 20:59 Celecoxib (CeleBREX CAP) 300 mg DAILY PO 04/26/17 09:00 05/26/17 08:59 04/26/17 09:43 300 MG Clonazepam (Klonopin Tab) 0.5 mg BID PO 04/26/17 09:00 05/26/17 08:59 04/26/17 20:28 0.5 MG Clozapine (Clozaril Tab) 100 mg TID PO 04/26/17 09:00 05/26/17 08:59 04/26/17 20:24 100 MG Docusate Sodium (coLACE CAP) 100 mg BID PO 04/26/17 09:00 05/26/17 08:59 04/26/17 20:24 100 MG Escitalopram Oxalate (Lexapro Tab) 30 mg QAM PO 04/26/17 09:00 05/26/17 08:59 04/26/17 09:46 30 MG Fenofibrate (Tricor Tab) 48 mg QAM PO 04/26/17 09:00 05/26/17 08:59 04/26/17 09:44 48 MG Fluticasone Propionate (Flonase Nasal [place]) 2 sprays QAM JOSE 04/26/17 09:00 05/26/17 08:59 04/26/17 09:42 2 SPRAYS Folic Acid (Folvite Tab) 1 mg DAILY PO 04/26/17 09:00 05/26/17 08:59 04/26/17 09:42 1 MG Gabapentin (Neurontin Cap) 300 mg TID PO 04/26/17 09:00 05/26/17 08:59 04/26/17 20:26 300 MG Montelukast Sodium (Singulair Tab) 10 mg HS PO 04/26/17 21:00 05/26/17 20:59 04/26/17 20:25 10 MG Nystatin (Mycostatin Susp) 5 ml QID PO 04/26/17 09:00 05/06/17 08:59 04/26/17 20:23 5 ML Perphenazine (Trilafon Tab) 4 mg TID PO 04/26/17 09:00 05/26/17 08:59 04/26/17 20:26 4 MG Ranitidine HCl (zANTac TAB) 150 mg BID PO 04/26/17 09:00 05/26/17 08:59 04/26/17 20:27 150 MG Senna/Docusate Sodium (Senokot S Tab) 1 tab BID PO 04/26/17 09:00 05/26/17 08:59 04/26/17 20:25 1 TAB Tamsulosin HCl (Flomax Cap) 0.4 mg HS PO 04/26/17 21:00 05/26/17 20:59 04/26/17 20:23 0.4 MG Miscellaneous Information (Order Awaiting Action) 1 ea QS N/A 04/26/17 08:00 05/26/17 07:59 Miscellaneous Information (Order Awaiting Action) 1 ea QS N/A 04/26/17 08:00 05/26/17 07:59 Acetaminophen (Tylenol Tab) 1,000 mg Q8 PRN PO 04/25/17 22:15 05/25/17 22:14 Ioversol (Optiray 320) 100 ml UD PRN IV 04/26/17 10:45 04/30/17 10:44
[2017-04-26] MEDS ORDERED: MONTELUKAST SOD 10 MG TAB PO SCH (21:00)
[2017-04-26] MEDS ORDERED: CALCITONIN SALMON NA 200 IU/AC 3.7 ML BTL SCH (21:00)
[2017-04-26] MEDS ORDERED: TAMSULOSIN HCL 0.4 MG CAP PO SCH (21:00)
[2017-04-26] MEDS ORDERED: CLONAZEPAM 0.5 MG TAB PO ONE (23:30)
[2017-04-27] VITALS (10 sets, daily range): BP systolic 112–118; BP diastolic 74–89; PULSE 80–103; TEMP 36.4–36.7; O2SAT 92–100
[2017-04-27 05:46] LABS: HEMATOCRIT 42.6 % (37-47); HEMOGLOBIN 13.7 g/dL (12.0-16.0); MEAN CELL VOLUME 94.9 fL (80-100); MEAN CORPUSCULAR HEMOGLOBIN 30.5 pg (25-34); MEAN PLATELET VOLUME 10.3 fL (7.4-10.4); PLATELET COUNT 167 K/uL (130-400); RED CELL DISTRIBUTION WIDTH CV 13.5 % (11.5-14.5); RED CELL DISTRIBUTION WIDTH SD 46.9 fL (36.4-46.3); WHITE BLOOD COUNT 5.91 K/uL (4.8-10.8)
[2017-04-27 05:51] LABS: MEAN CORPUSCULAR HGB CONC 32.2 g/dl (32-36)
[2017-04-27 06:04] LABS: CREATININE 0.91 mg/dl (0.60-1.20)
[2017-04-27 06:05] LABS: POTASSIUM 4.3 mmol/L (3.5-5.1)
[2017-04-27] MEDS: FLUTICASONE PROPIONATE NA SPR 16 GM BTL NAE SCH (08:05)
[2017-04-27] MEDS: BuPROPion SR 100 MG TABCR PO SCH (08:05)
[2017-04-27] MEDS: RANITIDINE HCL 150 MG TAB PO SCH (08:07)
[2017-04-27] MEDS: ESCITALOPRAM OXALATE 20 MG TAB PO SCH (08:07)
[2017-04-27] MEDS: FENOFIBRATE 48 MG TAB PO SCH (08:07)
[2017-04-27] MEDS: CeleBREX 100 MG CAP PO SCH (08:08)
[2017-04-27] MEDS: NYSTATIN SUSP 500,000 U/5 ML UDC PO SCH ×3 (08:09→17:05)
[2017-04-27] MEDS: PERPHENAZINE 2 MG TAB PO SCH ×2 (08:09→13:28)
[2017-04-27] MEDS: CLOZAPINE 100 MG TAB PO SCH ×2 (08:10→13:28)
[2017-04-27] MEDS: GABAPENTIN 300 MG CAP PO SCH ×2 (08:10→13:28)
[2017-04-27] MEDS: DOCUSATE SODIUM/SENNA 50/8.6MG TAB PO SCH (08:10)
[2017-04-27] MEDS: DOCUSATE SODIUM 100 MG CAP PO SCH (08:11)
[2017-04-27] MEDS: ALBUTEROL HFA 8 GM INHALER INH PRN ×2 (08:17→18:24)
[2017-04-27] MEDS: CLONAZEPAM 0.5 MG TAB PO SCH (09:06)
[2017-04-27] MEDS: ENOXAPARIN 40 MG/0.4 ML SYR SC SCH (09:07)
[2017-04-27] MEDS ORDERED: AMOXICILLIN 500 MG CAP PO ONE (14:00)
--- NOTE | 2017-04-27 16:44 | Progress Note ---
Medicine Progress Note Date & Time of Visit: Apr 27, 2017 at 16:31. Subjective Pt was seen and examined Sitting in chair with no distress Pt said that she feels much better She said that she does not have any chest pain She said that her breathing is back to baseline She said that she is on oxygen supplement Denies any chest pain, palpitation and fever Objective Last 8 Hrs Date Time Temp Pulse Resp B/P (MAP) Pulse Ox O2 Delivery O2 Flow Rate FiO2 04/27/17 15:10 36.7 80 20 118/89 (99) 100 Nasal Cannula 2.0 04/27/17 12:34 36.4 103 20 117/82 (94) 95 Nasal Cannula 04/27/17 12:10 96 Room Air Physical Exam: General- No acute distress Head- atraumatic Eyes- PERRL, EOMI ENT- oropharynx clear Neck- supple, no JVD Lungs- Poor air entry Heart- regular rhythm Abdomen- normal bowel sounds, soft Extremities-no calf tenderness Neuro- alert, oriented x 3; PERRL, EOMI Skin- warm & dry Laboratory Results: Last 24 Hours Test 04/27/17 04:30 04/27/17 04:41 04/27/17 05:32 04/27/17 05:33 White Blood Count K/uL 5.91 K/uL Red Blood Count M/uL 4.49 M/uL Hemoglobin g/dL 13.7 g/dL Hematocrit % 42.6 % Mean Corpuscular Volume fL 94.9 fL Mean Corpuscular Hemoglobin pg 30.5 pg Mean Corpuscular Hemoglobin Concent g/dl 32.2 g/dl RDW Standard Deviation fL 46.9 fL RDW Coefficient of Variation % 13.5 % Platelet Count K/uL 167 K/uL Bedside Glucose 86 mg/dl Mean Platelet Volume 10.3 fL Sodium Level 142 mmol/L Potassium Level 4.3 mmol/L Chloride Level 109 mmol/L Carbon Dioxide Level 28 mmol/L Anion Gap 5.0 mmol/L Blood Urea Nitrogen 24 mg/dl Creatinine 0.91 mg/dl Est Creatinine Clear Calc Drug Dose 77.1 ml/min Estimated GFR () 81.2 Estimated GFR (Non- 70.0 BUN/Creatinine Ratio 26.2 Random Glucose 93 mg/dl Calcium Level 9.0 mg/dl Magnesium Level 2.2 mg/dl Arterial Blood pH 7.40 Arterial Blood Partial Pressure CO2 49 mmHg Arterial Blood Partial Pressure O2 88 mm/Hg Arterial Blood HCO3 29 mmol/L Arterial Blood Oxygen Saturation 96.7 % Arterial Blood Base Excess 3.4 mEq/L Arterial Blood Gas Delivery 3 LITERS Anirudh Test POS Assessment & Plan CHEST PAIN Atypical chest pain Troponinx2 negative EKG showed no ischemic changes CTA chest showed no PE Resolved DYSPNEA COPD and interstitial lung disease. On chronic oxygen D-Dimer elevated CXR showed Chronic bilateral interstitial opacities CTA chest negative for PE and interval increase in multifocal ground glass opacities throughout the lungs. Improved UTI Urine cx growth alpha strep not enterococcus Pt said that she has increase frequency but it is because she drinks a lot of water Denies any dysuria afebrile and no leukocytosis Will give her a course of abx for 3 to 5 days course CHRONIC HYPOXIC RESPIRATORY FAILURE Secondary to COPD and/or interstitial lung disease. Continue supplemental O2. stable ABDOMINAL PAIN LFTs and lipase normal. Tolerated diet Stable CHRONIC PAIN Continue usual medications. Avoid narcotics. SCHIZOPHRENIA / DEPRESSION Continue usual medications. VTE PROPHYLAXIS SQ enoxaparin. Ambulate. RESUSCITATION STATUS Full resuscitation. DISPOSITION Will discharge home today Current Inpatient Medications: Current Inpatient Medications Medications (Trade) Dose Ordered Sig/Janel Route Start Time Stop Time Status Last Admin Dose Admin Enoxaparin Sodium (Lovenox Inj) 40 mg DAILY SC 04/26/17 09:00 05/26/17 08:59 04/27/17 09:07 40 MG Nitroglycerin (Nitrostat Tab) 0.4 mg UD PRN SL 04/25/17 21:45 05/25/17 21:44 Albuterol (Ventolin Hfa Inhaler) 2 puffs Q6H PRN INH 04/25/17 22:15 05/25/17 22:14 04/27/17 08:17 2 PUFFS Baclofen (Lioresal Tab) 10 mg TID PRN PO 04/25/17 22:15 05/25/17 22:14 04/26/17 14:21 10 MG Bupropion HCl (Wellbutrin-Sr Tab) 100 mg QAM PO 04/26/17 09:00 05/26/17 08:59 04/27/17 08:05 100 MG Calcitonin [place] (Fortical Nasal [place]) 1 spray QPM NA 04/26/17 21:00 05/26/17 20:59 Celecoxib (CeleBREX CAP) 300 mg DAILY PO 04/26/17 09:00 05/26/17 08:59 04/27/17 08:08 300 MG Clonazepam (Klonopin Tab) 0.5 mg BID PO 04/26/17 09:00 05/26/17 08:59 04/27/17 09:06 0.5 MG Clozapine (Clozaril Tab) 100 mg TID PO 04/26/17 09:00 05/26/17 08:59 04/27/17 13:28 100 MG Docusate Sodium (coLACE CAP) 100 mg BID PO 04/26/17 09:00 05/26/17 08:59 04/27/17 08:11 100 MG Escitalopram Oxalate (Lexapro Tab) 30 mg QAM PO 04/26/17 09:00 05/26/17 08:59 04/27/17 08:07 30 MG Fenofibrate (Tricor Tab) 48 mg QAM PO 04/26/17 09:00 05/26/17 08:59 04/27/17 08:07 48 MG Fluticasone Propionate (Flonase Nasal [place]) 2 sprays QAM JOSE 04/26/17 09:00 05/26/17 08:59 04/27/17 08:05 2 SPRAYS Folic Acid (Folvite Tab) 1 mg DAILY PO 04/26/17 09:00 05/26/17 08:59 04/27/17 08:09 1 MG Gabapentin (Neurontin Cap) 300 mg TID PO 04/26/17 09:00 05/26/17 08:59 04/27/17 13:28 300 MG Montelukast Sodium (Singulair Tab) 10 mg HS PO 04/26/17 21:00 05/26/17 20:59 04/26/17 20:25 10 MG Nystatin (Mycostatin Susp) 5 ml QID PO 04/26/17 09:00 05/06/17 08:59 04/27/17 12:32 5 ML Perphenazine (Trilafon Tab) 4 mg TID PO 04/26/17 09:00 05/26/17 08:59 04/27/17 13:28 4 MG Ranitidine HCl (zANTac TAB) 150 mg BID PO 04/26/17 09:00 05/26/17 08:59 04/27/17 08:07 150 MG Senna/Docusate Sodium (Senokot S Tab) 1 tab BID PO 04/26/17 09:00 05/26/17 08:59 04/27/17 08:10 1 TAB Tamsulosin HCl (Flomax Cap) 0.4 mg HS PO 04/26/17 21:00 05/26/17 20:59 04/26/17 20:23 0.4 MG Miscellaneous Information (Order Awaiting Action) 1 ea QS N/A 04/26/17 08:00 05/26/17 07:59 Miscellaneous Information (Order Awaiting Action) 1 ea QS N/A 04/26/17 08:00 05/26/17 07:59 Acetaminophen (Tylenol Tab) 1,000 mg Q8 PRN PO 04/25/17 22:15 05/25/17 22:14 04/27/17 13:05 1,000 MG Ioversol (Optiray 320) 100 ml UD PRN IV 04/26/17 10:45 04/30/17 10:44 Amoxicillin (Amoxil Cap) 500 mg BIDM PO 04/27/17 16:45 05/02/17 07:00
[2017-04-27] MEDS ORDERED: AMOXICILLIN 500 MG CAP PO SCH (16:45)
[2017-04-27] MEDS ORDERED: AMX500 PO ×2 (16:51→17:12)
--- NOTE | 2017-04-27 17:12 | Discharge Instructions ---
Discharge Instructions Date of Service Apr 27, 2017. Admission Reason for Admission: Chest Pain Discharge Discharge Diagnosis / Problem: Chest Pain, Urinary tract infection,CHRONIC HYPOXIC RESPIRATORY FAILURE Discharge Goals Goal(s): Decrease discomfort, Improve function, Improve disease control Activity Recommendations Activity Limitations: resume your previous activity ( TOLERATED) . Instructions / Follow-Up Instructions / Follow-Up FOLLOW UP WITH YOUR PRIMARY CARE PROVIDER DR. NEWMAN @ 1:45 pm COMPLETE THE COURSE OF ANTIBIOTIC CONTINUE OXYGEN SUPPLEMENT REDUCE BACLOFEN TO HALF TABLET THREE TIMES A DAY NEEDED REDUCE KLONOPIN TO HALF TABLET TWICE A DAY NEEDED (PLEASE HOLD IT YOU ARE DROWSY AND LETHARGY) FALL PRECAUTION USE YOUR WALKER TO AMBULATE Current Hospital Diet Patient's current hospital diet: AHA Diet (Heart Healthy) Discharge Diet Recommended Diet: AHA Diet (Heart Healthy) Pending Studies Studies pending at discharge: no Medical Emergencies . Who to Call and When: Medical Emergencies: If at any time you feel your situation is an emergency, please call 911 immediately. . Non-Emergent Contact Non-Emergency issues call your: Primary Care Provider Call Non-Emergent contact if: you have a fever, you have any medication questions . . "Provider Documentation" section prepared by Arvind Duong. .
== END 2017-04-27 18:52 | disposition home or self-care (01) ==
LOC: EDBD 17:07 → C.EDC 17:09 → C.EDINP 21:48 → ENRESERV 04-26 13:02 → C.2T 04-26 14:01
PROVIDERS: ADMIT Hospitalist; ATTEND Internal Medicine
DX: R07.9 Chest pain, unspecified (principal); R41.82 Altered mental status, unspecified; N39.0 Urinary tract infection, site not specified; R10.9 Unspecified abdominal pain; J96.11 Chronic respiratory failure with hypoxia; F32.9 Major depressive disorder, single episode, unspecified; F20.0 Paranoid schizophrenia; Z99.81 Dependence on supplemental oxygen; F10.10 Alcohol abuse, uncomplicated; Z87.01 Personal history of pneumonia (recurrent); Z86.718 Personal history of other venous thrombosis and embolism; K21.9 Gastro-esophageal reflux disease without esophagitis; Z90.710 Acquired absence of both cervix and uterus; M81.0 Age-related osteoporosis without current pathological fracture; Z88.5 Allergy status to narcotic agent; Z87.891 Personal history of nicotine dependence; Z80.1 Family history of malignant neoplasm of trachea, bronchus and lung

== ENCOUNTER 2017-05-22 10:55 | Observation (INO) | payer OTHER ==
[~2017-05-22] VITALS: Ht 162.6 cm; Wt 88.7 kg
[~2017-05-22 10:55] MED LIST changes: -ACET1TAB84 PO; +ACET650T9 PO; +AMX500 PO; -B-CO1CAP3 PO; -BACL1TAB PO; +BREX1TAB4 PO; +BUPR100T8 PO; +CALCTAB27 PO; +CELE1CAP28 PO; +CHOL1CAP57 PO; -CHOL1TAB53 PO; -CLB100 PO; +CLC100 PO; +CLON0.5T3 PO; +CLOZ100T18 PO; -CLOZ50TA PO; -DOCU100C31 PO; +FERR1TAB62 PO; +FLM4 PO; +FLV1 PO; -FOLI1TAB8 PO; -GABA-112 PO; -GABA-113 PO; +GABA-1219 PO; +LRS10 PO; -MONT1TAB3 PO; +NYSS/ PO; +PERP1TAB5 PO; -PERP4TAB37 PO; +PRED20TA PO; +RANI150T2 PO; -RISP1TAB68 PO; +SNG10 PO; -TAMS0.4C38 PO; -ZOLE5INJ INJ
[2017-05-22] MEDS ORDERED: PERP1TAB10 PO (11:42)
--- NOTE | 2017-05-22 13:03 | DIAGNOSTIC IMAGING REPORT ---
RIGHT ELBOW 3 VIEWS CLINICAL HISTORY: Fall with right elbow pain. FINDINGS: 3 views of the right elbow are obtained. No prior studies are available for comparison at the time of dictation. The skeletal structures are osteopenic. No fracture is seen. The joint spaces are maintained. No joint effusion is identified. The overlying soft tissues are within normal limits. IMPRESSION: There is no radiographic evidence of right elbow fracture. Electronically signed by: Hubert Ferreira M.D. 05/22/2017 1:02 PM Dictated Date/Time: 05/22/2017 1:01 PM
--- NOTE | 2017-05-22 13:05 | DIAGNOSTIC IMAGING REPORT ---
SINGLE VIEW PELVIS CLINICAL HISTORY: Fall with left pelvic pain. FINDINGS: An AP pelvic radiograph is compared to study dated 04/18/2016. The skeletal structures are osteopenic. No acute fracture is seen involving the hips or bony pelvis. Chronic posttraumatic deformity and postoperative change is seen in the proximal femora bilaterally. The sacroiliac joints are normal in appearance. Lumbosacral spondylosis is partially visualized. The overlying soft tissues are within normal limits. IMPRESSION: There is no radiographic evidence of acute fracture involving the hips or bony pelvis. Electronically signed by: Hubert Ferreira M.D. 05/22/2017 1:03 PM Dictated Date/Time: 05/22/2017 1:02 PM
--- NOTE | 2017-05-22 13:06 | DIAGNOSTIC IMAGING REPORT ---
L SHOULDER MIN 2 VIEWS ROUTINE CLINICAL HISTORY: Left shoulder pain status post trauma COMPARISON: None. DISCUSSION: No acute fractures or dislocations are visualized. A calcific/ossific density projected over the humeral neck, likely is chronic. There are postsurgical changes present within the thoracic spine. There are interstitial left lung opacities. IMPRESSION: 1. No acute fractures identified 2. Irregularity of the medial aspect of the humeral neck is felt to be chronic. Electronically signed by: Bismark Galdamez M.D. 05/22/2017 1:04 PM Dictated Date/Time: 05/22/2017 1:01 PM
--- NOTE | 2017-05-22 13:08 | DIAGNOSTIC IMAGING REPORT ---
R SHOULDER MIN 2 VIEWS ROUTINE CLINICAL HISTORY: Right shoulder pain status post trauma COMPARISON: None. DISCUSSION: No acute fractures or dislocations are visualized. There are multiple old right-sided rib fractures. There are right upper lung zone interstitial opacities, similar to the prior chest x-ray dated April 25, 2017 IMPRESSION: 1. No acute fractures or dislocations identified. Electronically signed by: Bismark Galdamez M.D. 05/22/2017 1:07 PM Dictated Date/Time: 05/22/2017 1:06 PM
--- NOTE | 2017-05-22 13:09 | DIAGNOSTIC IMAGING REPORT ---
L KNEE 3 VIEWS CLINICAL HISTORY: Left knee pain status post fall COMPARISON: Left femur radiograph June 27, 2007. FINDINGS: Left femoral internal fixation hardware is partially imaged on this exam. There is no acute fracture within the left knee. There is no left knee joint effusion. There is mild osteophytosis of the left knee. IMPRESSION: 1. No acute fracture or joint effusion of the left knee. 2. Mild osteoarthritis of the left knee. Electronically signed by: Benjamin Summers M.D. 05/22/2017 1:08 PM Dictated Date/Time: 05/22/2017 1:07 PM
--- NOTE | 2017-05-22 13:18 | DIAGNOSTIC IMAGING REPORT ---
CT SCAN OF THE BRAIN WITHOUT IV CONTRAST CLINICAL HISTORY: Fall. COMPARISON STUDY: CT of the brain dated 04/25/2017. TECHNIQUE: Unenhanced axial CT scan of the brain is performed from the vertex to the skull base. A dose lowering technique was utilized adhering to the principles of ALARA. CT DOSE: 2710.56 mGy.cm FINDINGS: Brain parenchyma: The brain parenchyma is normal in appearance. There is no hemorrhage, mass effect, or evidence of acute territorial ischemia by CT criteria. Jesus-white matter is preserved. No extra-axial fluid collection is seen. Ventricles, sulci, cisterns: Normal in configuration. Intracranial vasculature: There is mild atherosclerotic calcification of the cavernous carotid arteries. Calvarium: There is no depressed calvarial fracture. Advanced arthritic change is seen in the temporomandibular joints. Sinuses and mastoids: The visualized paranasal sinuses are clear. The mastoid air cells are well pneumatized. Orbits: The bony orbits are grossly intact. IMPRESSION: No acute intracranial abnormality. Electronically signed by: Hubert Ferreira M.D. 05/22/2017 1:17 PM Dictated Date/Time: 05/22/2017 1:15 PM
--- NOTE | 2017-05-22 13:21 | DIAGNOSTIC IMAGING REPORT ---
CT OF THE CERVICAL SPINE CLINICAL HISTORY: CT cervical spine pain status post fall COMPARISON STUDY: 12/31/2016 CT DOSE: TECHNIQUE: CT scan of the cervical spine was performed from the skull base to the thoracic inlet. Images are reviewed in the axial, sagittal, and coronal planes. IV contrast was not administered for this examination. A dose lowering technique was utilized adhering to the principles of ALARA. FINDINGS: The visualized portions of the lung apices reveal no evidence of pneumothorax. Interstitial thickening/fibrotic changes are visualized the lung apices The prevertebral soft tissues are normal. No fractures or subluxations are visualized. There are multilevel degenerative changes IMPRESSION: No evidence of acute fracture or traumatic subluxation. Electronically signed by: Bismark Galdamez M.D. 05/22/2017 1:19 PM Dictated Date/Time: 05/22/2017 1:16 PM
--- NOTE | 2017-05-22 13:57 | DIAGNOSTIC IMAGING REPORT ---
CT SCAN OF THE THORACIC SPINE WITHOUT IV CONTRAST CLINICAL HISTORY: Fall. COMPARISON STUDY: CT scan of the thoracic spine dated 11/29/2015. Chest CT dated 04/26/2017. TECHNIQUE: CT scan of the thoracic spine is performed from the lower cervical spine to the upper lumbar spine. Images are reviewed in the axial, sagittal, and coronal planes. IV contrast was not administered as per the referring clinician. A dose lowering technique was utilized adhering to the principles of ALARA. FINDINGS: The skeletal structures are osteopenic. No acute fracture or malalignment is identified. Extensive chronic deformity is identified in the thoracic spine. There are severe chronic compression deformities of T8 and T10 with near complete destruction of the vertebral bodies. Moderate compression deformities are seen involving T11 and T12. A mild superior endplate compression deformity is noted in the body of T4. There has been laminectomy and posterior fusion seen from T6 -T12. Intervertebral screws are present at T6, T7, T9, and T11. The orthopedic hardware appears intact. Lucency around the interpedicular screws at T11 suggests loosening. There is dense sclerosis and destructive change seen involving the T8, T9, T10, T11, and T12 vertebral bodies with retropulsed fragments and heterotopic bone formation. Associated paravertebral soft tissue is unchanged. Multilevel pseudoarthrosis is suspected at these levels. The transverse processes appear intact. Kyphoscoliosis is observed. There are healed bilateral posterior rib fractures. Advanced emphysematous change is identified. Multifocal groundglass consolidation is seen throughout both lungs and is unchanged from the 04/26/2017 examination. No pleural effusion is identified. The paraspinous musculature is normal in appearance. Low-attenuation thyroid nodules measure up to 11 mm. A small hiatal hernia is identified. The heart is enlarged and an infusion port catheter is in place. IMPRESSION: 1. There is no evidence of acute fracture or malalignment involving the thoracic spine. 2. Extensive chronic posttraumatic and postoperative findings of the thoracic spine as above with suspected multilevel pseudoarthrosis. This is unchanged from prior examinations. 3. Advanced emphysema with multifocal groundglass consolidation is similar to the 04/26/[address] 4. Additional findings as above. Dictated: 05/22/2017 1:19 PM Transcribed: 05/22/2017 1:57 PM [place] Electronically signed by: Hubert Ferreira M.D. 05/22/2017 2:09 PM Dictated Date/Time: 05/22/2017 1:19 PM
--- NOTE | 2017-05-22 14:36 | DIAGNOSTIC IMAGING REPORT ---
CHEST ONE VIEW PORTABLE CLINICAL HISTORY: Syncope COMPARISON STUDY: April 25, 2017 FINDINGS: The cardiac and mediastinal contours remain stable. There is a right-sided A-Port catheter unchanged in position. There are bilateral interstitial pulmonary opacities similar to the prior study. There are postsurgical changes present within the thoracic spine. There is lower thoracic paraspinal widening..[ IMPRESSION: 1. No change from the preceding study 2. Persistent bilateral interstitial pulmonary opacities 3. Postsurgical changes in the thoracic spine. Stable lower thoracic paraspinal widening Electronically signed by: Bismark Galdamez M.D. 05/22/2017 2:34 PM Dictated Date/Time: 05/22/2017 2:32 PM
[2017-05-22 15:26] LABS: BASO % 0.4 %; BASO ABS # 0.03 K/uL (0-0.2); EOS % 2.4 %; HEMATOCRIT 46.1 % (37-47); HEMOGLOBIN 15.1 g/dL (12.0-16.0); IG# 0.01 K/uL (0.00-0.02); LYMPH % 22.3 %; LYMPH ABS # 1.89 K/uL (1.2-3.4); MEAN CORPUSCULAR HEMOGLOBIN 31.5 pg (25-34); MEAN CORPUSCULAR HGB CONC 32.8 g/dl (32-36); MEAN PLATELET VOLUME 10.4 fL (7.4-10.4); MONO % 8.4 %; MONO ABS # 0.71 K/uL (0.11-0.59); NEUT % 66.4 %; NEUT ABS # 5.63 K/uL (1.4-6.5); PLATELET COUNT 177 K/uL (130-400); RED CELL DISTRIBUTION WIDTH CV 13.7 % (11.5-14.5); RED CELL DISTRIBUTION WIDTH SD 48.4 fL (36.4-46.3); WHITE BLOOD COUNT 8.47 K/uL (4.8-10.8)
[2017-05-22 15:45] LABS: ALBUMIN 3.9 gm/dl (3.4-5.0); ALT/SGPT 39 U/L (12-78); AST/SGOT 42 U/L (15-37); BLOOD UREA NITROGEN 28 mg/dl (7-18); CALCIUM 10.2 mg/dl (8.5-10.1); CARBON DIOXIDE 29 mmol/L (21-32); CREATININE 1.02 mg/dl (0.60-1.20); GLUCOSE 76 mg/dl (70-99); POTASSIUM 4.3 mmol/L (3.5-5.1); SODIUM 138 mmol/L (136-145)
[2017-05-22 15:48] LABS: ALKALINE PHOSPHATASE 66 U/L (45-117); TOTAL PROTEIN 8.5 gm/dl (6.4-8.2)
[2017-05-22] MEDS ORDERED: MAGNESIUM HYDROXIDE SUSP 30 ML UDC PO PRN (16:45)
[2017-05-22] MEDS ORDERED: ONDANSETRON INJ 2 MG/ML 2 ML VIAL IV PRN (16:45)
[2017-05-22] MEDS ORDERED: ALUMINUM/MAGNESIUM/SIMETH (MAALOX MAX) 30 ML UDC PO PRN (16:45)
[2017-05-22] MEDS ORDERED: ACETAMINOPHEN 325 MG TAB PO PRN (16:45)
[2017-05-22] MEDS ORDERED: ACETAMINOPHEN 650 MG PO PRN (17:00)
--- NOTE | 2017-05-22 17:10 | History and Physical ---
History & Physical Date & Time of Service: May 22, 2017 at 16:54 Chief Complaint: Fall/Lower Back Pain Primary Care Physician: Naveed Adam III, M.D. History of Present Illness Source: patient, clinic records, hospital records This is a 56 year old female with a PMH of bipolar, schizophrenia, hx. of alcohol abuse, hepatitis C, hx. of drug abuse, interstitial lung disease and chronic respiratory failure on 2L of O2 almost all the time and 3L nocturnally - presents with a syncopal episode. As per patient she does not recall the event completely, but now is starting to remember falling in the bathroom and hitting her back. She presented to the ER because of the fall and slight confusion. She also started getting chest pain after arriving here in the ED. Currently, she is comfortably, in no distress. Past Medical/Surgical History Medical Problems: (1) Accidental drug overdose (2) Accidental overdose (3) Alcohol abuse (4) Altered mental status (5) Anemia (6) Anxiety (7) Aspiration pneumonia (8) Back pain (9) Back pain (10) Bilateral leg pain (11) Cataract (12) Chest pain (13) Chest wall pain (14) Chronic back pain (15) Chronic hepatitis C (16) Chronic obstructive lung disease (17) Chronic pain (18) Chronic paranoid schizophrenia (19) Closed fracture of femur (20) Closed stable burst fracture of T8 vertebra (21) Closed T12 fracture (22) Constipation (23) Contusion of head (24) Contusion of head (25) COPD (chronic obstructive pulmonary disease) (26) COPD exacerbation (27) Deep venous thrombosis (28) Delusions (29) Depression (30) Depression with suicidal ideation (31) Diarrhea (32) Diffuse abdominal pain (33) Discitis (34) Discitis thoracic region (35) Drug abuse (36) Dyspnea (37) Fall (38) Fall (39) Gastroesophageal reflux disease (40) Head injury (41) Hepatitis C (42) Hypoxia (43) Hysterectomy (44) Interstitial lung disease (45) Leg pain, right (46) Leukocytosis (47) Low back pain (48) Lower back pain (49) Lower extremity pain (50) Lumbar back pain (51) Mood disorder (52) Mood disorder (53) Opiate abuse, continuous (54) Osteomyelitis (55) Osteomyelitis () of jaw (suppurative) (56) Osteomyelitis of spine (57) Osteoporosis (58) Panic attack (59) Past Psych Meds (60) Post-op pain (61) Precordial chest pain (62) Psychosis (63) Pyelonephritis (64) Right hip pain (65) Right low back pain (66) S/P ORIF (open reduction internal fixation) fracture (67) Schizoaffective disorder (68) Schizophrenia (69) Seizure (70) Sepsis (71) Sepsis (72) Shortness of breath (73) Shortness of breath (74) Suicidal ideation (75) Suicidal ideations (76) Swelling of right extremity (77) Syncope and collapse (78) Thoracic back pain (79) Tinea (80) Tobacco user (81) Traumatic compression fracture of T8 thoracic vertebra (82) UTI (urinary tract infection) (83) UTI (urinary tract infection) (84) Weakness (85) Wound dehiscence Surgical Problems: (1) H/O colonoscopy (2) History of hysterectomy (3) S/p thoracic spinal surgery (4) S/P tonsillectomy Family History FH: lung cancer GRANDMOTHER Thyroid disorder MOTHER SISTER Social History Smoking Status: Never Smoker Marital Status: single Housing status: lives with family Occupational Status: disabled Immunizations History of Influenza Vaccine: N/A History of Tetanus Vaccine?: utd Tetanus Immunization Date: Nov 22, 2006 History of Pneumococcal: Yes Pneumococcal Date: Dec 03, 2010 History of Hepatitis B Vaccine: Yes Hepatitis Immunization Date: Dec 03, 1997 Allergies Coded Allergies: Hydrocodone (Verified Allergy, Severe, DROWSY, 05/22/17) Haloperidol (Verified Allergy, Unknown, "MAKES ME GO INTO BLACKOUT", ) Hydroxyzine (Verified Allergy, Unknown, UNKNOWN, 05/22/17) [place] [facility] [place] (Verified Allergy, Unknown, "LEVEL CAN GET TOO HIGH", 05/22/17) Oxycodone (Verified Adverse Reaction, Severe, DROWSY, 05/22/17) Molindone (Verified Adverse Reaction, Intermediate, PT FEELS LIKE SHES "JUMPING OUT OF HER SKIN", 05/22/17) Morphine and Related (Verified Adverse Reaction, Intermediate, DROWSY, ) px was drowsy w/ pinpoint pupils and minimally responsive. stable VS. Following Morphine IR 15mg - 3 doses in prior 24 hours. Naloxone 0.4mg admin 3 times during that period. Fluphenazine (Verified Adverse Reaction, Unknown, confusion, 05/22/17) Home Medications Scheduled Brexpiprazole (Rexulti), 2 MG PO QAM Bupropion (Wellbutrin Sr), 100 MG PO QAM Calcitonin [place] (Calcitonin-[place]), 1 SPRAY NA QPM Celecoxib (Celecoxib), 300 MG PO DAILY Cholecalciferol (Vitamin D3), 1,000 INTERUNIT PO DAILY Clonazepam (Klonopin), 0.25 MG PO BID Clozapine (Clozapine), 100 MG PO TID Docusate Sodium (Docusate Sodium), 100 MG PO BID Escitalopram Oxalate (Escitalopram Oxalate), 20 MG PO QAM Fenofibrate (Fenofibrate), 48 MG PO QAM Ferrous Sulfate (Ferrous Sulfate), 325 MG PO BIDM Fluticasone Furoate-Vilanterol (Breo Ellipta), 1 PUFF INH QAM Fluticasone Propionate (Nasal) (Flonase Allergy Relief), 2 SPRAYS JOSE QAM Folic Acid (Folic Acid), 1 MG PO DAILY Gabapentin (Gabapentin), 300 MG PO TID Montelukast Sod (Montelukast Sodium), 10 MG PO HS Nystatin (Nystatin Suspension), 5 ML PO QID Oyster Shell ([place] 500), 500 MG PO BID Perphenazine (Trilafon), 2 MG PO BID Ranitidine HCl (Ranitidine HCl), 150 MG PO BID Sennosides-Docusate Sodium (Senna Plus), 1 TAB PO BID Tamsulosin HCl (Tamsulosin HCl), 0.4 MG PO HS Umeclidinium [place] (Incruse Ellipta), 1 PUFF PO QAM Scheduled PRN Acetaminophen (Acetaminophen ER), 650 MG PO Q8 PRN for Fever Albuterol Hfa (Ventolin Hfa), 2 PUFFS INH Q6H PRN for SOB/Wheezing Baclofen (Baclofen), 5 MG PO TID PRN for Muscle Spasm Prednisone (Prednisone), 20 MG PO UD PRN for Rescue Kit Review of Systems Constitutional: + weakness, + fatigue, No fever, No chills Respiratory: + shortness of breath (chronic, at baseline), No cough, No sputum , No dyspnea on exertion, No dyspnea at rest Cardiovascular: No chest pain, No edema, No palpitations Abdomen: No pain, No nausea, No vomiting, No diarrhea, No constipation, No GI bleeding Musculoskeletal: + joint pain (low back pain), + muscle pain Genitourinary - Female: + urinary incontinence, No dysuria, No urinary frequency, No urinary urgency, No urinary retention, No hematuria Neurologic: + numbness/tingling, + balance problems, No vertigo Psychiatric: + depression symptoms, + anxiety (controlled with medications), + insomnia, No substance abuse Endocrine: No fatigue Hematologic / Lymphatic: No abnormal bleeding/bruising Integumentary: No rash Allergic / Immunologic: No environmental allergies, No seasonal allergies Physical Exam Vital Signs Date Time Temp Pulse Resp B/P (MAP) Pulse Ox O2 Delivery O2 Flow Rate FiO2 05/22/17 16:43 95 05/22/17 14:05 71 16 98 Nasal Cannula 2.0 05/22/17 12:12 79 18 134/83 99 Nasal Cannula 2.0 05/22/17 11:03 36.3 78 16 135/93 100 Room Air 05/22/17 11:01 78 General Appearance: no apparent distress ENT: hearing grossly normal Respiratory/Chest: chest non-tender, lungs clear, normal breath sounds, no respiratory distress, no accessory muscle use Cardiovascular: regular rate, rhythm, no edema, no murmur Back: normal inspection, no CVA tenderness, no muscle spasm, normal range of motion, + pertinent finding (mild bruising noted; L lower back) Extremities/Musculoskelatal: normal inspection, no calf tenderness, normal capillary refill, no pedal edema, normal range of motion Neurologic/Psych: no motor/sensory deficits, alert, + pertinent finding ( blunted affect) Skin: normal color Lymphatic: no adenopathy Diagnostics Laboratory Results Results Past 24 Hours Test 05/22/17 00:00 05/22/17 15:00 05/22/17 15:08 05/22/17 16:07 Range/Units Urine Color YELLOW Urine Appearance CLEAR CLEAR Urine pH 7.0 4.5-7.5 Urine Specific [place] 1.011 1.000-1.030 Urine Protein NEG NEG Urine Glucose (UA) NEG NEG Urine Ketones NEG NEG Urine Occult Blood NEG NEG Urine Nitrite NEG NEG Urine Bilirubin NEG NEG Urine Urobilinogen NEG NEG Urine Leukocyte Esterase MODERATE NEG Urine WBC (Auto) 10-30 0-5 /hpf Urine RBC (Auto) 0-4 0-4 /hpf Urine Hyaline Casts (Auto) 1-5 0-5 /lpf Urine Epithelial Cells (Auto) 5-10 0-5 /lpf Urine Bacteria (Auto) NEG NEG White Blood Count 8.47 4.8-10.8 K/uL Red Blood Count 4.80 4.2-5.4 M/uL Hemoglobin 15.1 12.0-16.0 g/dL Hematocrit 46.1 37-47 % Mean Corpuscular Volume 96.0 80-100 fL Mean Corpuscular Hemoglobin 31.5 25-34 pg Mean Corpuscular Hemoglobin Concent 32.8 32-36 g/dl Platelet Count 177 130-400 K/uL Mean Platelet Volume 10.4 7.4-10.4 fL Neutrophils (%) (Auto) 66.4 % Lymphocytes (%) (Auto) 22.3 % Monocytes (%) (Auto) 8.4 % Eosinophils (%) (Auto) 2.4 % Basophils (%) (Auto) 0.4 % Neutrophils # (Auto) 5.63 1.4-6.5 K/uL Lymphocytes # (Auto) 1.89 1.2-3.4 K/uL Monocytes # (Auto) 0.71 0.11-0.59 K/uL Eosinophils # (Auto) 0.20 0-0.5 K/uL Basophils # (Auto) 0.03 0-0.2 K/uL RDW Standard Deviation 48.4 36.4-46.3 fL RDW Coefficient of Variation 13.7 11.5-14.5 % Immature Granulocyte % (Auto) 0.1 % Immature Granulocyte # (Auto) 0.01 0.00-0.02 K/uL Sodium Level 138 136-145 mmol/L Potassium Level 4.3 3.5-5.1 mmol/L Chloride Level 104 98-107 mmol/L Carbon Dioxide Level 29 21-32 mmol/L Anion Gap 5.0 3-11 mmol/L Blood Urea Nitrogen 28 7-18 mg/dl Creatinine 1.02 0.60-1.20 mg/dl Est Creatinine Clear Calc Drug Dose 67.0 ml/min Estimated GFR () 70.7 Estimated GFR (Non- 61.0 BUN/Creatinine Ratio 27.5 10-20 Random Glucose 76 70-99 mg/dl Calcium Level 10.2 8.5-10.1 mg/dl Total Bilirubin 0.4 0.2-1 mg/dl Direct Bilirubin < 0.1 0-0.2 mg/dl Aspartate Amino Transf (AST/SGOT) 42 15-37 U/L Alanine Aminotransferase (ALT/SGPT) 39 12-78 U/L Alkaline Phosphatase 66 45-117 U/L Total Protein 8.5 6.4-8.2 gm/dl Albumin 3.9 3.4-5.0 gm/dl Bedside Troponin I < 0.030 0-0.045 ng/ml Diagnostic Radiology CT SCAN OF THE THORACIC SPINE WITHOUT IV CONTRAST CLINICAL HISTORY: Fall. COMPARISON STUDY: CT scan of the thoracic spine dated 11/29/2015. Chest CT dated 04/26/2017. TECHNIQUE: CT scan of the thoracic spine is performed from the lower cervical spine to the upper lumbar spine. Images are reviewed in the axial, sagittal, and coronal planes. IV contrast was not administered as per the referring clinician. A dose lowering technique was utilized adhering to the principles of ALARA. FINDINGS: The skeletal structures are osteopenic. No acute fracture or malalignment is identified. Extensive chronic deformity is identified in the thoracic spine. There are severe chronic compression deformities of T8 and T10 with near complete destruction of the vertebral bodies. Moderate compression deformities are seen involving T11 and T12. A mild superior endplate compression deformity is noted in the body of T4. There has been laminectomy and posterior fusion seen from T6 -T12. Intervertebral screws are present at T6, T7, T9, and T11. The orthopedic hardware appears intact. Lucency around the interpedicular screws at T11 suggests loosening. There is dense sclerosis and destructive change seen involving the T8, T9, T10, T11, and T12 vertebral bodies with retropulsed fragments and heterotopic bone formation. Associated paravertebral soft tissue is unchanged. Multilevel pseudoarthrosis is suspected at these levels. The transverse processes appear intact. Kyphoscoliosis is observed. There are healed bilateral posterior rib fractures. Advanced emphysematous change is identified. Multifocal groundglass consolidation is seen throughout both lungs and is unchanged from the 04/26/2017 examination. No pleural effusion is identified. The paraspinous musculature is normal in appearance. Low-attenuation thyroid nodules measure up to 11 mm. A small hiatal hernia is identified. The heart is enlarged and an infusion port catheter is in place. IMPRESSION: 1. There is no evidence of acute fracture or malalignment involving the thoracic spine. 2. Extensive chronic posttraumatic and postoperative findings of the thoracic spine as above with suspected multilevel pseudoarthrosis. This is unchanged from prior examinations. 3. Advanced emphysema with multifocal groundglass consolidation is similar to the 04/26/[address] 4. Additional findings as above. R SHOULDER MIN 2 VIEWS ROUTINE CLINICAL HISTORY: Right shoulder pain status post trauma COMPARISON: None. DISCUSSION: No acute fractures or dislocations are visualized. There are multiple old right-sided rib fractures. There are right upper lung zone interstitial opacities, similar to the prior chest x-ray dated April 25, 2017 IMPRESSION: 1. No acute fractures or dislocations identified. L SHOULDER MIN 2 VIEWS ROUTINE CLINICAL HISTORY: Left shoulder pain status post trauma COMPARISON: None. DISCUSSION: No acute fractures or dislocations are visualized. A calcific/ossific density projected over the humeral neck, likely is chronic. There are postsurgical changes present within the thoracic spine. There are interstitial left lung opacities. IMPRESSION: 1. No acute fractures identified 2. Irregularity of the medial aspect of the humeral neck is felt to be chronic. SINGLE VIEW PELVIS CLINICAL HISTORY: Fall with left pelvic pain. FINDINGS: An AP pelvic radiograph is compared to study dated 04/18/2016. The skeletal structures are osteopenic. No acute fracture is seen involving the hips or bony pelvis. Chronic posttraumatic deformity and postoperative change is seen in the proximal femora bilaterally. The sacroiliac joints are normal in appearance. Lumbosacral spondylosis is partially visualized. The overlying soft tissues are within normal limits. IMPRESSION: There is no radiographic evidence of acute fracture involving the hips or bony pelvis. L KNEE 3 VIEWS CLINICAL HISTORY: Left knee pain status post fall COMPARISON: Left femur radiograph June 27, 2007. FINDINGS: Left femoral internal fixation hardware is partially imaged on this exam. There is no acute fracture within the left knee. There is no left knee joint effusion. There is mild osteophytosis of the left knee. IMPRESSION: 1. No acute fracture or joint effusion of the left knee. 2. Mild osteoarthritis of the left knee. CT SCAN OF THE BRAIN WITHOUT IV CONTRAST CLINICAL HISTORY: Fall. COMPARISON STUDY: CT of the brain dated 04/25/2017. TECHNIQUE: Unenhanced axial CT scan of the brain is performed from the vertex to the skull base. A dose lowering technique was utilized adhering to the principles of ALARA. CT DOSE: 2710.56 mGy.cm FINDINGS: Brain parenchyma: The brain parenchyma is normal in appearance. There is no hemorrhage, mass effect, or evidence of acute territorial ischemia by CT criteria. Jesus-white matter is preserved. No extra-axial fluid collection is seen. Ventricles, sulci, cisterns: Normal in configuration. Intracranial vasculature: There is mild atherosclerotic calcification of the cavernous carotid arteries. Calvarium: There is no depressed calvarial fracture. Advanced arthritic change is seen in the temporomandibular joints. Sinuses and mastoids: The visualized paranasal sinuses are clear. The mastoid air cells are well pneumatized. Orbits: The bony orbits are grossly intact. IMPRESSION: No acute intracranial abnormality. RIGHT ELBOW 3 VIEWS CLINICAL HISTORY: Fall with right elbow pain. FINDINGS: 3 views of the right elbow are obtained. No prior studies are available for comparison at the time of dictation. The skeletal structures are osteopenic. No fracture is seen. The joint spaces are maintained. No joint effusion is identified. The overlying soft tissues are within normal limits. IMPRESSION: There is no radiographic evidence of right elbow fracture. CT OF THE CERVICAL SPINE CLINICAL HISTORY: CT cervical spine pain status post fall COMPARISON STUDY: 12/31/2016 CT DOSE: TECHNIQUE: CT scan of the cervical spine was performed from the skull base to the thoracic inlet. Images are reviewed in the axial, sagittal, and coronal planes. IV contrast was not administered for this examination. A dose lowering technique was utilized adhering to the principles of ALARA. FINDINGS: The visualized portions of the lung apices reveal no evidence of pneumothorax. Interstitial thickening/fibrotic changes are visualized the lung apices The prevertebral soft tissues are normal. No fractures or subluxations are visualized. There are multilevel degenerative changes IMPRESSION: No evidence of acute fracture or traumatic subluxation CHEST ONE VIEW PORTABLE CLINICAL HISTORY: Syncope COMPARISON STUDY: April 25, 2017 FINDINGS: The cardiac and mediastinal contours remain stable. There is a right-sided A-Port catheter unchanged in position. There are bilateral interstitial pulmonary opacities similar to the prior study. There are postsurgical changes present within the thoracic spine. There is lower thoracic paraspinal widening..[ IMPRESSION: 1. No change from the preceding study 2. Persistent bilateral interstitial pulmonary opacities 3. Postsurgical changes in the thoracic spine. Stable lower thoracic paraspinal widening EKG T wave inversion on V1, V2 Impression Assessment and Plan This is a 56 year old female with a PMH of bipolar, schizophrenia, hx. of alcohol abuse, hepatitis C, hx. of drug abuse, interstitial lung disease and chronic respiratory failure on 2L of O2 almost all the time and 3L nocturnally - presents with a syncopal episode, chest pain Chest Pain r/o ACS - unlikely ACS - initial cardiac enzyme negative - T wave inversion on V1 and V2 - previously nonspecific T wave abnormality - will monitor in tele - trend cardiac enzymes - resting echo - EKG in AM Syncope - likely polypharmacy - will check u-tox and alcohol level - check an echo - orthostatics - baclofen PRN for muscle spasms of the back - will try Lidocaine, Tylenol and Celebrex for pain Schizophrenia Hx. of Bipolar - continue home medications, and OP psych follow-up Interstitial Lung Disease Chronic Respiratory Failure - chronically on 2L of O2 - she states that she uses it when laying down and with exertion; 3L while sleeping - continue current medications - follow-up with pulmonology as outpatient Chronic Pain Syndrome - continue Celebrex and Tylenol as prescribed (LFTs are okay) - outpatient pain management consultation DVT ppx - Lovenox FULL CODE will order PT/OT - hopefully discharge on 05/23 Resuscitation Status VTE Prophylaxis Will order VTE Prophylaxis: Yes
[2017-05-22 17:26] VITALS: O2SAT 98; Ht 162.6 cm; Wt 88.7 kg
[2017-05-22 18:14] VITALS: BP 134/75; PULSE 106; TEMP 36.8; O2SAT 95
[2017-05-22] MEDS ORDERED: IV FLUIDS COMPLETED PRN (18:15)
[2017-05-22] MEDS ORDERED: SODIUM CHLORIDE 0.9% 1000ML 1,000 ML IV SCH (19:00)
[2017-05-22 20:00] VITALS: O2SAT 95
[2017-05-22] MEDS: LIDODERM (LIDOCAINE) PATCH 5% TD SCH (20:01)
[2017-05-22] MEDS: DOCUSATE SODIUM/SENNA 50/8.6MG TAB PO SCH (20:03)
[2017-05-22] MEDS: CLOZAPINE 100 MG TAB PO SCH (20:04)
[2017-05-22] MEDS: FERROUS SULFATE 325 MG TAB PO SCH (20:05)
[2017-05-22] MEDS: DOCUSATE SODIUM 100 MG CAP PO SCH (20:05)
[2017-05-22] MEDS: GABAPENTIN 300 MG CAP PO SCH (20:06)
[2017-05-22] MEDS: RANITIDINE HCL 150 MG TAB PO SCH (20:07)
[2017-05-22] MEDS: CALCIUM CARBONATE 1250MG TAB PO SCH (20:07)
[2017-05-22] MEDS: BACLOFEN 10 MG TAB PO PRN (20:08)
[2017-05-22] MEDS: PERPHENAZINE 2 MG TAB PO SCH (20:08)
[2017-05-22] MEDS: CLONAZEPAM 0.5 MG TAB PO SCH (20:14)
[2017-05-22 20:26] VITALS: BP 130/85; PULSE 88; TEMP 36.6; O2SAT 92
[2017-05-22] MEDS ORDERED: MONTELUKAST SOD 10 MG TAB PO SCH (21:00)
[2017-05-22] MEDS ORDERED: CALCITONIN SALMON NA 200 IU/AC 3.7 ML BTL SCH (21:00)
[2017-05-22] MEDS ORDERED: TAMSULOSIN HCL 0.4 MG CAP PO SCH (21:00)
[2017-05-22 23:40] VITALS: BP 98/67; PULSE 75; TEMP 36.7; O2SAT 97
[2017-05-23 03:40] VITALS: BP_SYST 107; BP_SYST 95; BP_DIAS 62; BP_DIAS 75; PULSE 82; TEMP 36.8; O2SAT 99
[2017-05-23 04:23] LABS: HEMATOCRIT 42.7 % (37-47); HEMOGLOBIN 14.2 g/dL (12.0-16.0); MEAN CELL VOLUME 96.6 fL (80-100); MEAN CORPUSCULAR HEMOGLOBIN 32.1 pg (25-34); MEAN CORPUSCULAR HGB CONC 33.3 g/dl (32-36); MEAN PLATELET VOLUME 10.1 fL (7.4-10.4); PLATELET COUNT 152 K/uL (130-400); RED CELL DISTRIBUTION WIDTH CV 13.8 % (11.5-14.5); RED CELL DISTRIBUTION WIDTH SD 48.7 fL (36.4-46.3); WHITE BLOOD COUNT 6.73 K/uL (4.8-10.8)
[2017-05-23 04:54] LABS: BLOOD UREA NITROGEN 30 mg/dl (7-18); CALCIUM 9.6 mg/dl (8.5-10.1); CARBON DIOXIDE 29 mmol/L (21-32); CREATININE 1.02 mg/dl (0.60-1.20); GLUCOSE 90 mg/dl (70-99); POTASSIUM 4.5 mmol/L (3.5-5.1); SODIUM 143 mmol/L (136-145)
[2017-05-23 04:59] LABS: CHOLESTEROL 168 mg/dl (0-200); LDL CHOLESTEROL CALCULATED 74 mg/dl
[2017-05-23] MEDS: BREO ELLIPTA: ORDER AWAITING ACTION SCH ×2 (08:00)
[2017-05-23 08:11] VITALS: BP 111/64; PULSE 96; TEMP 36.4; O2SAT 98
[2017-05-23] MEDS: FERROUS SULFATE 325 MG TAB PO SCH (08:11)
[2017-05-23] MEDS: CLOZAPINE 100 MG TAB PO SCH ×2 (08:19→13:31)
[2017-05-23] MEDS: RANITIDINE HCL 150 MG TAB PO SCH (08:20)
[2017-05-23] MEDS: CALCIUM CARBONATE 1250MG TAB PO SCH (08:20)
[2017-05-23] MEDS: GABAPENTIN 300 MG CAP PO SCH ×2 (08:20→13:33)
[2017-05-23] MEDS: DOCUSATE SODIUM/SENNA 50/8.6MG TAB PO SCH (08:20)
[2017-05-23] MEDS: PERPHENAZINE 2 MG TAB PO SCH (08:20)
[2017-05-23] MEDS: DOCUSATE SODIUM 100 MG CAP PO SCH (08:20)
[2017-05-23] MEDS: LIDODERM (LIDOCAINE) PATCH 5% TD SCH (08:21)
[2017-05-23] MEDS: CLONAZEPAM 0.5 MG TAB PO SCH (08:22)
--- NOTE | 2017-05-23 08:32 | ECHOCARDIOGRAM REPORT ---
*NOTICE TO RECEIVING DEMOCRAT AGENCY This information is strictly Confidential and protected under [place] law. [place] law prohibits you from making any further disclosure of this information unless further disclosure is expressly permitted by the written consent of the person to whom it pertains or is authorized by law. A general authorization for the release of medical or other information is not sufficient for this purpose. Hospital accepts no responsibility if the information is made available to any other person, INCLUDING THE PATIENT. Interpretation Summary * Name: VIVIEN RIVERS Study Date: 05/23/2017 06:49 AM BP: 95/62 mmHg * Patient Location: C.2T\S\S233\S\1 HR: 82 * : 1960 (M/d/yyyy) Gender: Female Height: 64 in * Age: 56 yrs Ethnicity: CA Weight: 203 lb * Ordering Physician: Aman Villalta * Referring Physician: Self, Referred * Performed By: Danielle Rueda RDCS * * Reason For Study: SYNCOPE, CHEST PAIN * BSA: 2.0 m2 * -- Conclusions -- * Normal LV chamber size with mild concentric LVH. * Normal LV systolic function, EF 60-65%. * No segmental left ventricular wall motion abnormalities are noted. * Grade I diastolic dysfunction. * No significant valvular pathology. Procedure Details * A complete two-dimensional transthoracic echocardiogram was performed (2D, M-mode, Doppler and color flow Doppler). Left Ventricle * The left ventricle is normal in size. * There is mild concentric left ventricular hypertrophy. * Ejection Fraction = 60-65%. * Left ventricular systolic function is normal. * No segmental left ventricular wall motion abnormalities are noted. * The left ventricular wall motion is normal. Right Ventricle * The right ventricular cavity size is normal (basal dimension <4.2 cm in right ventricular apical 4-chamber view). * The right ventricular systolic function is normal as assessed by tricuspid annular plane systolic excursion (TAPSE) (normal >1.5 cm). Atria * The left atrial size is normal. * Right atrial size is normal. * No ASD detected; PFO is not assessed. Mitral Valve * The mitral valve is normal in structure and function. Tricuspid Valve * The tricuspid valve is normal in structure and function. Aortic Valve * The aortic valve is normal in structure and function. Pulmonic Valve * The pulmonary valve is not well seen, but the Doppler examination is normal without significant regurgitation or stenosis. Great Vessels * The aortic root is normal size. Pericardium/Pleural * There is no pericardial effusion. Left Ventricular Diastolic Function * Grade I diastolic dysfunction, (abnormal relaxation pattern). MMode 2D Measurements and Calculations IVSd 1.1 cm IVSs 1.6 cm LVIDd 4.6 cm LVIDs 3.2 cm LVPWd 1.1 cm LVPWs 1.7 cm IVS/LVPW 1.0 FS 31.9 % EDV(Teich) 98.8 ml ESV(Teich) 39.5 ml EF(Teich) 60.0 % EDV(cubed) 99.2 ml ESV(cubed) 31.3 ml EF(cubed) 68.4 % % IVS thick 37.9 % % LVPW thick 50.5 % LV mass(C)d 192.8 grams LV mass(C)dI 98.0 grams/m\S\2 LV mass(C)s 197.1 grams LV mass(C)sI 100.1 grams/m\S\2 SV(Teich) 59.3 ml SI(Teich) 30.1 ml/m\S\2 SV(cubed) 67.9 ml SI(cubed) 34.5 ml/m\S\2 Ao root diam 3.4 cm Ao root area 9.3 cm\S\2 LA dimension 4.0 cm LA/Ao 1.2 LVAd ap4 22.7 cm\S\2 LVLd ap4 7.3 cm EDV(MOD-sp4) 57.4 ml EDV(sp4-el) 59.7 ml LVAs ap4 12.5 cm\S\2 LVLs ap4 6.0 cm ESV(MOD-sp4) 23.3 ml ESV(sp4-el) 22.1 ml EF(MOD-sp4) 59.5 % EF(sp4-el) 63.0 % LVAd ap2 26.5 cm\S\2 LVLd ap2 8.1 cm EDV(MOD-sp2) 70.9 ml EDV(sp2-el) 73.4 ml LVAs ap2 14.0 cm\S\2 LVLs ap2 6.2 cm ESV(MOD-sp2) 26.6 ml ESV(sp2-el) 26.7 ml EF(MOD-sp2) 62.5 % EF(sp2-el) 63.6 % LVLd %diff 9.5 % EDV(MOD-bp) 66.5 ml LVLs %diff 2.9 % ESV(MOD-bp) 25.2 ml EF(MOD-bp) 62.1 % SV(MOD-sp4) 34.1 ml SI(MOD-sp4) 17.3 ml/m\S\2 SV(MOD-sp2) 44.3 ml SI(MOD-sp2) 22.5 ml/m\S\2 SV(MOD-bp) 41.3 ml SI(MOD-bp) 21.0 ml/m\S\2 SV(sp4-el) 37.6 ml SI(sp4-el) 19.1 ml/m\S\2 SV(sp2-el) 46.6 ml SI(sp2-el) 23.7 ml/m\S\2 Doppler Measurements and Calculations MV E max rayna 63.4 cm/sec MV A max rayna 91.0 cm/sec MV E/A 0.70 MV dec time 0.19 sec Ao V2 max 121.7 cm/sec Ao max PG 5.9 mmHg Ao max PG (full) 2.4 mmHg LV V1 max PG 3.5 mmHg LV V1 max 93.6 cm/sec TR max rayna 194.3 cm/sec
[2017-05-23] MEDS ORDERED: CeleBREX 100 MG CAP PO SCH (09:00)
[2017-05-23] MEDS ORDERED: FENOFIBRATE 48 MG TAB PO SCH (09:00)
[2017-05-23] MEDS ORDERED: ENOXAPARIN 40 MG/0.4 ML SYR SC SCH (09:00)
[2017-05-23] MEDS ORDERED: ESCITALOPRAM OXALATE 20 MG TAB PO SCH (09:00)
[2017-05-23] MEDS ORDERED: BuPROPion SR 100 MG TABCR PO SCH (09:00)
[2017-05-23] MEDS ORDERED: CHOLECALCIFEROL 1000 INTER.UNIT TAB PO SCH (09:00)
[2017-05-23] MEDS ORDERED: FLUTICASONE PROPIONATE NA SPR 16 GM BTL NAE SCH (09:00)
[2017-05-23] MEDS ORDERED: NURSING VERBAL MED ORDER ONE (10:45)
[2017-05-23] MEDS: BACLOFEN 10 MG TAB PO PRN (11:00)
[2017-05-23 12:08] VITALS: BP 118/82; PULSE 89; TEMP 36.6; O2SAT 92
--- NOTE | 2017-05-23 14:01 | Progress Note ---
Subjective Date of Service: May 23, 2017. Subjective Pt evaluation today including: conversation w/ patient, conversation w/ family , physical exam, lab review, review of studies, review of inpatient medication list Saw/examined the patient in room 233 She's doing better today Some shortness of breath, but seems to be a chronic issue and not an acute one Spoke with family - patient's sister - states that patient is to use a walker at all times and at times does not Problem List Medical Problems: (1) Accidental overdose Status: Acute (2) Anemia Status: Acute (3) Anxiety Status: Acute (4) Back pain Status: Acute (5) Bilateral leg pain Status: Acute (6) Chest wall pain Status: Acute (7) Chronic pain Status: Acute (8) Closed stable burst fracture of T8 vertebra Status: Acute (9) Closed T12 fracture Status: Acute (10) Constipation Status: Acute (11) Contusion of head Status: Acute (12) COPD exacerbation Status: Acute (13) Delusions Status: Acute (14) Depression with suicidal ideation Status: Acute (15) Diarrhea Status: Acute (16) Diffuse abdominal pain Status: Acute (17) Discitis Status: Acute (18) Discitis thoracic region Status: Acute (19) Fall Status: Acute (20) Head injury Status: Acute (21) Interstitial lung disease Status: Acute (22) Leg pain, right Status: Acute (23) Leukocytosis Status: Acute (24) Low back pain Status: Acute (25) Lower back pain Status: Acute (26) Lower extremity pain Status: Acute (27) Mood disorder Status: Acute (28) Mood disorder Status: Acute (29) Osteomyelitis () of jaw (suppurative) Status: Acute (30) Osteomyelitis of spine Status: Acute (31) Panic attack Status: Acute (32) Post-op pain Status: Acute (33) Precordial chest pain Status: Acute (34) Pyelonephritis Status: Acute (35) Right hip pain Status: Acute (36) Right low back pain Status: Acute (37) Sepsis Status: Acute (38) Shortness of breath Status: Acute (39) Suicidal ideations Status: Acute (40) Swelling of right extremity Status: Acute (41) Thoracic back pain Status: Acute (42) Traumatic compression fracture of T8 thoracic vertebra Status: Acute (43) UTI (urinary tract infection) Status: Acute (44) Weakness Status: Acute (45) Wound dehiscence Status: Acute Social History Problems: (1) History of back surgery Status: Acute Review of Systems Constitutional: + weakness Respiratory: No cough, No sputum, No shortness of breath Cardiac: No chest pain Abdomen: No pain Musculoskeletal: + joint pain (cervical neck pain) Neurologic: + vertigo, + balance problems (improved), No memory loss, No paralysis, No weakness, No numbness/tingling Medications Current Inpatient Medications Medications (Trade) Dose Ordered Sig/Janel Route Start Time Stop Time Status Last Admin Dose Admin Enoxaparin Sodium (Lovenox Inj) 40 mg Q24H SC 05/23/17 09:00 06/22/17 08:59 05/23/17 08:22 40 MG Acetaminophen (Tylenol Tab) 650 mg Q4H PRN PO 05/22/17 16:45 06/21/17 16:44 05/23/17 13:32 650 MG Al Hydrox/Mg Hydrox/Simethicone (Maalox Max Susp) 15 ml Q4H PRN PO 05/22/17 16:45 06/21/17 16:44 Magnesium Hydroxide (Milk Of Magnesia Susp) 30 ml Q12H PRN PO 05/22/17 16:45 06/21/17 16:44 Ondansetron HCl (Zofran Inj) 4 mg Q6H PRN IV 05/22/17 16:45 06/21/17 16:44 Baclofen (Lioresal Tab) 5 mg TID PRN PO 05/22/17 17:00 06/21/17 16:59 05/23/17 11:00 5 MG Bupropion HCl (Wellbutrin-Sr Tab) 100 mg QAM PO 05/23/17 09:00 06/22/17 08:59 05/23/17 08:20 100 MG Calcitonin [place] (Fortical Nasal [place]) 1 spray QPM NA 05/22/17 21:00 06/21/17 20:59 05/22/17 20:05 1 SPRAY Celecoxib (CeleBREX CAP) 300 mg DAILY PO 05/23/17 09:00 06/22/17 08:59 05/23/17 08:19 300 MG Clonazepam (Klonopin Tab) 0.25 mg BID PO 05/22/17 21:00 06/21/17 20:59 05/23/17 08:22 0.25 MG Clozapine (Clozaril Tab) 100 mg TID PO 05/22/17 21:00 06/21/17 20:59 05/23/17 13:31 100 MG Docusate Sodium (coLACE CAP) 100 mg BID PO 05/22/17 21:00 06/21/17 20:59 05/23/17 08:20 100 MG Escitalopram Oxalate (Lexapro Tab) 20 mg QAM PO 05/23/17 09:00 06/22/17 08:59 05/23/17 08:20 20 MG Fenofibrate (Tricor Tab) 48 mg QAM PO 05/23/17 09:00 06/22/17 08:59 05/23/17 08:20 48 MG Fluticasone Propionate (Flonase Nasal [place]) 2 sprays QAM JOSE 05/23/17 09:00 06/22/17 08:59 05/23/17 08:10 2 SPRAYS Folic Acid (Folvite Tab) 1 mg DAILY PO 05/23/17 09:00 06/22/17 08:59 05/23/17 08:20 1 MG Gabapentin (Neurontin Cap) 300 mg TID PO 05/22/17 21:00 06/21/17 20:59 05/23/17 13:33 300 MG Montelukast Sodium (Singulair Tab) 10 mg HS PO 05/22/17 21:00 06/21/17 20:59 05/22/17 20:05 10 MG Calcium Carbonate (oS-Michael 500 TAB) 1,250 mg BID PO 05/22/17 21:00 06/21/17 20:59 05/23/17 08:20 1,250 MG Perphenazine (Trilafon Tab) 2 mg BID PO 05/22/17 21:00 06/21/17 20:59 05/23/17 08:20 2 MG Ranitidine HCl (zANTac TAB) 150 mg BID PO 05/22/17 21:00 06/21/17 20:59 05/23/17 08:20 150 MG Senna/Docusate Sodium (Senokot S Tab) 1 tab BID PO 05/22/17 21:00 06/21/17 20:59 05/23/17 08:20 1 TAB Tamsulosin HCl (Flomax Cap) 0.4 mg HS PO 05/22/17 21:00 06/21/17 20:59 05/22/17 20:07 0.4 MG Miscellaneous Information (Order Awaiting Action) 1 ea QS N/A 05/23/17 00:00 06/22/17 00:00 05/23/17 00:02 1 EA Cholecalciferol (Vitamin D Tab) 1,000 inter.unit DAILY PO 05/23/17 09:00 06/22/17 08:59 05/23/17 08:20 1,000 INTER.UNIT Ferrous Sulfate (Feosol Tab) 325 mg BIDM PO 05/22/17 18:00 06/21/17 17:59 05/23/17 08:11 325 MG Miscellaneous Information (Order Awaiting Action) 1 ea QS N/A 05/23/17 00:00 06/22/17 00:00 Miscellaneous Information (Order Awaiting Action) 1 ea QS N/A 05/23/17 00:00 06/22/17 00:00 Lidocaine (Lidoderm Patch 5%) 1 patch DAILY TD 05/22/17 19:00 06/21/17 18:59 05/23/17 08:21 1 PATCH Miscellaneous (Remove Lidoderm Patch) 1 ea DAILY@21 N/A 05/22/17 21:00 06/21/17 20:59 05/22/17 21:00 1 EA Miscellaneous (Iv Fluids Completed) 1 ea PRN PRN N/A 05/22/17 18:15 05/22/18 18:14 Objective Vital Signs Date Time Temp Pulse Resp B/P (MAP) Pulse Ox O2 Delivery O2 Flow Rate FiO2 05/23/17 12:08 36.6 89 20 118/82 (94) 92 Room Air 05/23/17 12:00 Nasal Cannula 2.0 05/23/17 08:11 36.4 96 20 111/64 (80) 98 Room Air 05/23/17 08:00 Nasal Cannula 2.0 05/23/17 04:00 Nasal Cannula 2.0 05/23/17 03:40 36.8 82 18 107/75 (86) 99 Nasal Cannula 3.0 95/62 (73) 05/22/17 23:55 Nasal Cannula 3.0 05/22/17 23:40 36.7 75 17 98/67 (77) 97 Nasal Cannula 2.0 05/22/17 20:26 36.6 88 16 130/85 (100) 92 Nasal Cannula 2.0 05/22/17 20:00 95 Nasal Cannula 2.0 05/22/17 18:14 36.8 106 16 134/75 (94) 95 Nasal Cannula 2.0 05/22/17 17:45 72 18 117/68 99 05/22/17 17:26 98 Nasal Cannula 2.0 05/22/17 16:43 95 05/22/17 16:00 100 16 120/65 98 Room Air 05/22/17 14:05 71 16 98 Nasal Cannula 2.0 Physical Exam General Appearance: no apparent distress Respiratory/Chest: no respiratory distress, no accessory muscle use Cardiovascular: regular rate, rhythm, no edema, no murmur Extremities: normal inspection, no pedal edema Neurologic/Psychiatric: no motor/sensory deficits, alert, + pertinent finding ( blunted affect) Laboratory Results Last 24 Hours Test 05/22/17 15:00 05/22/17 15:08 05/22/17 16:00 05/22/17 17:11 White Blood Count 8.47 K/uL Red Blood Count 4.80 M/uL Hemoglobin 15.1 g/dL Hematocrit 46.1 % Mean Corpuscular Volume 96.0 fL Mean Corpuscular Hemoglobin 31.5 pg Mean Corpuscular Hemoglobin Concent 32.8 g/dl Platelet Count 177 K/uL Mean Platelet Volume 10.4 fL Neutrophils (%) (Auto) 66.4 % Lymphocytes (%) (Auto) 22.3 % Monocytes (%) (Auto) 8.4 % Eosinophils (%) (Auto) 2.4 % Basophils (%) (Auto) 0.4 % Neutrophils # (Auto) 5.63 K/uL Lymphocytes # (Auto) 1.89 K/uL Monocytes # (Auto) 0.71 K/uL Eosinophils # (Auto) 0.20 K/uL Basophils # (Auto) 0.03 K/uL RDW Standard Deviation 48.4 fL RDW Coefficient of Variation 13.7 % Immature Granulocyte % (Auto) 0.1 % Immature Granulocyte # (Auto) 0.01 K/uL Sodium Level 138 mmol/L Potassium Level 4.3 mmol/L Chloride Level 104 mmol/L Carbon Dioxide Level 29 mmol/L Anion Gap 5.0 mmol/L Blood Urea Nitrogen 28 mg/dl Creatinine 1.02 mg/dl Est Creatinine Clear Calc Drug Dose 67.0 ml/min Estimated GFR () 70.7 Estimated GFR (Non- 61.0 BUN/Creatinine Ratio 27.5 Random Glucose 76 mg/dl Calcium Level 10.2 mg/dl Total Bilirubin 0.4 mg/dl Direct Bilirubin < 0.1 mg/dl Aspartate Amino Transf (AST/SGOT) 42 U/L Alanine Aminotransferase (ALT/SGPT) 39 U/L Alkaline Phosphatase 66 U/L Total Protein 8.5 gm/dl Albumin 3.9 gm/dl Bedside Troponin I < 0.030 ng/ml Urine Opiates Screen NEG Urine Methadone, Qualitative NEG Urine Barbiturates NEG Urine Phencyclidine (PCP) Level NEG Ur Amphetamine/Methamphetamine NEG MDMA (Ecstasy) Screen POS Urine Benzodiazepines Screen NEG Urine Cocaine Metabolite NEG Urine Marijuana (THC) NEG Ethyl Alcohol mg/dL < 3.0 mg/dl Test 05/22/17 22:44 05/23/17 04:11 05/23/17 10:25 Troponin I < 0.015 ng/ml < 0.015 ng/ml < 0.015 ng/ml White Blood Count 6.73 K/uL Red Blood Count 4.42 M/uL Hemoglobin 14.2 g/dL Hematocrit 42.7 % Mean Corpuscular Volume 96.6 fL Mean Corpuscular Hemoglobin 32.1 pg Mean Corpuscular Hemoglobin Concent 33.3 g/dl RDW Standard Deviation 48.7 fL RDW Coefficient of Variation 13.8 % Platelet Count 152 K/uL Mean Platelet Volume 10.1 fL Sodium Level 143 mmol/L Potassium Level 4.5 mmol/L Chloride Level 110 mmol/L Carbon Dioxide Level 29 mmol/L Anion Gap 4.0 mmol/L Blood Urea Nitrogen 30 mg/dl Creatinine 1.02 mg/dl Est Creatinine Clear Calc Drug Dose 67.0 ml/min Estimated GFR () 70.7 Estimated GFR (Non- 61.0 BUN/Creatinine Ratio 29.2 Random Glucose 90 mg/dl Calcium Level 9.6 mg/dl Triglycerides Level 106 mg/dl Cholesterol Level 168 mg/dl HDL Cholesterol 73 mg/dl LDL Cholesterol, Calculated 74 mg/dl VLDL Cholesterol, Calculated 21 mg/dl Cholesterol/HDL Ratio 2.3 Assessment and Plan This is a 56 year old female with a PMH of bipolar, schizophrenia, hx. of alcohol abuse, hepatitis C, hx. of drug abuse, interstitial lung disease and chronic respiratory failure on 2L of O2 almost all the time and 3L nocturnally - presents with a syncopal episode, chest pain Chest Pain r/o ACS - resolved 05/23 - chest pain resolved - echo with normal LVEF, mild LVH - trops negative x3 05/22 - unlikely ACS - initial cardiac enzyme negative - T wave inversion on V1 and V2 - previously nonspecific T wave abnormality - will monitor in tele - trend cardiac enzymes - resting echo - EKG in AM Syncope - resolved 05/23 - chronic ambulatory dysfunction - should use walker at all times 05/22 - likely polypharmacy - will check u-tox and alcohol level - check an echo - orthostatics - baclofen PRN for muscle spasms of the back - will try Lidocaine, Tylenol and Celebrex for pain Schizophrenia Hx. of Bipolar - continue home medications, and OP psych follow-up Interstitial Lung Disease Chronic Respiratory Failure - chronically on 2L of O2 - she states that she uses it when laying down and with exertion; 3L while sleeping - continue current medications - follow-up with pulmonology as outpatient Chronic Pain Syndrome - continue Celebrex and Tylenol as prescribed (LFTs are okay) - outpatient pain management consultation DVT ppx - Lovenox FULL CODE will order PT/OT - hopefully discharge on 05/23
--- NOTE | 2017-05-23 14:05 | Discharge Instructions ---
Discharge Instructions Date of Service May 23, 2017. Admission Reason for Admission: Chest Pain, Syncope And Collapse Discharge Discharge Diagnosis / Problem: Syncope and collapse Discharge Goals Goal(s): Decrease discomfort, Improve function, Diagnostic testing, Therapeutic intervention Activity Recommendations Activity Limitations: resume your previous activity . Instructions / Follow-Up Instructions / Follow-Up Please follow-up with Dr. Adam on May 25. Please note, the time of the appointment is changed to 10:45AM * Please use a walker at all times when walking * Please use your oxygen as prescribed * Continue pulmonary rehab next week after seeing your primary care physician Current Hospital Diet Patient's current hospital diet: Regular Diet Discharge Diet Recommended Diet: Regular Diet Pending Studies Studies pending at discharge: no Laboratory Results Lipid Panel Test 05/23/17 04:11 Range/Units Triglycerides Level 106 0-150 mg/dl Cholesterol Level 168 0-200 mg/dl HDL Cholesterol 73 mg/dl Cholesterol/HDL Ratio 2.3 LDL Cholesterol, Calculated 74 mg/dl Medical Emergencies . Who to Call and When: Medical Emergencies: If at any time you feel your situation is an emergency, please call 911 immediately. . Non-Emergent Contact Non-Emergency issues call your: Primary Care Provider . . "Provider Documentation" section prepared by Aman Villalta. .
--- NOTE | 2017-05-23 14:06 | Discharge Summary ---
Discharge Summary Date of Service May 23, 2017. Discharge Summary Admission Date: May 22, 2017 at 16:47 Discharge Date: May 23, 2017 Discharge Disposition: Home Principal Diagnosis: Syncope and collapse Ambulatory Dysfunction Schizophrenia Bipolar Disorder Chronic pain Syndrome Medication Reconciliation Continued Medications: Acetaminophen (Acetaminophen ER) 650 Mg Tab 650 MG PO Q8 PRN for Fever Albuterol Hfa (Ventolin Hfa) 200 Puffs/[id number] Mcg Aers 2 PUFFS INH Q6H PRN for SOB/Wheezing Baclofen (Baclofen) 10 Mg Tab 5 MG PO TID PRN for Muscle Spasm DO NOT GIVE THIS MEDICATION AFTER 1800 HOURS. ADMINISTER THIS MEDICATION ONE HOUR AFTER OTHER MEDICATIONS. Brexpiprazole (Rexulti) 2 Mg Tab 2 MG PO QAM Bupropion (Wellbutrin Sr) 100 Mg Ertab 100 MG PO QAM TAKE THIS MEDICATION WITH FOOD Calcitonin [place] (Calcitonin-[place]) 30 [place]/3.7 Ml Soln 1 SPRAY NA QPM ONCE DAILY. ALTERNATE NOSTRILS. Celecoxib (Celecoxib) 100 Mg Cap 300 MG PO DAILY Cholecalciferol (Vitamin D3) 1,000 Unit Cap 1000 INTERUNIT PO DAILY Clonazepam (Klonopin) 0.5 Mg Tab 0.25 MG PO BID, TAB Clozapine (Clozapine) 100 Mg Tab 100 MG PO TID Docusate Sodium (Docusate Sodium) 100 Mg Cap 100 MG PO BID Escitalopram Oxalate (Escitalopram Oxalate) 20 Mg Tab 20 MG PO QAM Fenofibrate (Fenofibrate) 48 Mg Tab 48 MG PO QAM Ferrous Sulfate (Ferrous Sulfate) 325 Mg Tab 325 MG PO BIDM Fluticasone Furoate-Vilanterol (Breo Ellipta) 1 Inh Inh 1 PUFF INH QAM RINSE MOUTH AFTER USE Fluticasone Propionate (Nasal) (Flonase Allergy Relief) 50 Mcg/Act Spr 2 SPRAYS JOSE QAM Folic Acid (Folic Acid) 1 Mg Tab 1 MG PO DAILY Gabapentin (Gabapentin) 300 Mg Cap 300 MG PO TID Montelukast Sod (Montelukast Sodium) 10 Mg Tab 10 MG PO HS Oyster Shell ([place] 500) 500 Mg Tab 500 MG PO BID Perphenazine (Trilafon) 2 Mg Tab 2 MG PO BID, TAB Prednisone (Prednisone) 20 Mg Tab 20 MG PO UD PRN for Rescue Kit, TAB RESCUE KIT FOLLOWS: TAKE 2 TABLETS (40 MG) DAILY FOR 5 DAYS Ranitidine HCl (Ranitidine HCl) 150 Mg Tab 150 MG PO BID Sennosides-Docusate Sodium (Senna Plus) 1 Tab Tab 1 TAB PO BID Tamsulosin HCl (Tamsulosin HCl) 0.4 Mg Cap 0.4 MG PO HS Umeclidinium [place] (Incruse Ellipta) 62.5 Mcg/Inh Inh 1 PUFF PO QAM Discontinued Medications: Nystatin (Nystatin Suspension) 1 Ml Susp 5 ML PO QID PRESCRIBED 04/19/2017, SWISH AND SWALLOW 4 TIMES A DAY FOR 30 DAYS Admission Information HPI (per Admitting provider): This is a 56 year old female with a PMH of bipolar, schizophrenia, hx. of alcohol abuse, hepatitis C, hx. of drug abuse, interstitial lung disease and chronic respiratory failure on 2L of O2 almost all the time and 3L nocturnally - presents with a syncopal episode. As per patient she does not recall the event completely, but now is starting to remember falling in the bathroom and hitting her back. She presented to the ER because of the fall and slight confusion. She also started getting chest pain after arriving here in the ED. Currently, she is comfortably, in no distress. Physical Exam (per Admitting): General Appearance: no apparent distress ENT: hearing grossly normal Respiratory/Chest: chest non-tender, lungs clear, normal breath sounds, no respiratory distress, no accessory muscle use Cardiovascular: regular rate, rhythm, no edema, no murmur Back: normal inspection, no CVA tenderness, no muscle spasm, normal range of motion, + pertinent finding (mild bruising noted; L lower back) Extremities/Musculoskelatal: normal inspection, no calf tenderness, normal capillary refill, no pedal edema, normal range of motion Neurologic/Psych: no motor/sensory deficits, alert, + pertinent finding ( blunted affect) Skin: normal color Lymphatic: no adenopathy Hospital Course This is a 56 year old female with a PMH of bipolar, schizophrenia, hx. of alcohol abuse, hepatitis C, hx. of drug abuse, interstitial lung disease and chronic respiratory failure on 2L of O2 almost all the time and 3L nocturnally - presents with a syncopal episode, chest pain Chest Pain r/o ACS - resolved 05/23 - chest pain resolved - echo with normal LVEF, mild LVH - trops negative x3 05/22 - unlikely ACS - initial cardiac enzyme negative - T wave inversion on V1 and V2 - previously nonspecific T wave abnormality - will monitor in tele - trend cardiac enzymes - resting echo - EKG in AM Syncope - resolved 05/23 - chronic ambulatory dysfunction - should use walker at all times 05/22 - likely polypharmacy - will check u-tox and alcohol level - check an echo - orthostatics - baclofen PRN for muscle spasms of the back - will try Lidocaine, Tylenol and Celebrex for pain Schizophrenia Hx. of Bipolar - continue home medications, and OP psych follow-up Interstitial Lung Disease Chronic Respiratory Failure - chronically on 2L of O2 - she states that she uses it when laying down and with exertion; 3L while sleeping - continue current medications - follow-up with pulmonology as outpatient Chronic Pain Syndrome - continue Celebrex and Tylenol as prescribed (LFTs are okay) - outpatient pain management consultation DVT ppx - Lovenox FULL CODE will order PT/OT - hopefully discharge on 05/23 Total time spent on discharge = 45 minutes This includes examination of the patient, discharge planning, medication reconciliation, and communication with other providers. Discharge Instructions Please follow-up with Dr. Adam on May 25. Please note, the time of the appointment is changed to 10:45AM * Please use a walker at all times when walking * Please use your oxygen as prescribed * Continue pulmonary rehab next week after seeing your primary care physician
[2017-05-23 15:33] VITALS: BP 118/82; PULSE 89; TEMP 36.6; O2SAT 92
--- NOTE | 2017-05-24 11:24 | EMERGENCY ROOM VISIT NOTE ---
ED Visit Note First contact with patient: 11:55 Chief Complaint: Fall. History of Present Illness: Ms. Tello is a 56-year-old white female who is brought into the via ambulance. Historically patient was recently the discharge from the hospital on April 27 for evaluation of chest pain and respiratory failure. Patient reports she has been feeling well since her discharge. Patient reports earlier this morning, she is unsure of the exact time, she reports she remembers waking from sleep and feeling the need to go to the bathroom. She remembers getting out of the bed and then remembers being back in bed. She reports she does not remember what happened between these 2 events but hypothesized that she fell when she went to the bathroom twice, struck her head and had a possible loss of consciousness and then walked back to her bed. She hypothesizes this chain of events from the fact that she reports after she got out of bed the second time she found a broken bucket in her bathroom. Currently patient has multiple complaints from her fall including left bilateral headache, left-sided neck pain, right elbow pain, thoracic back pain, bilateral shoulder pain, left posterior pelvis pain, and left knee pain. Patient reports her most severe pain is in her head and thoracic spine. She denies her headache in the left parietal area as a throbbing sensation. She rates this discomfort 5/10. Her pain is nonradiating. Her pain worsens with palpation. She has not identified any alleviating factors related to the pain and she has had no medications for her pain. She denies dizziness, lightheadedness, visual changes, hearing changes, difficulty speaking, difficulty swallowing, difficulty ambulating/coordinating body movements, nausea /vomiting. She also reports her thoracic back pain is also severe. She does report she has multiple surgeries on her thoracic back previously. She is not able to identify one specific vertebrae that hurts more than the other. She also has pain in the paraspinous muscles. She describes all this pain as a sharp sensation. She rates her discomfort 5/10. Her pain is nonradiating. Her pain worsens with palpation. She has not identified any alleviating factors related to the pain. Additionally she complains of pain over the cervical spine in the area of C4-C5 , bilateral humeral head pain, posterior right elbow pain over the olecranon process, posterior right pelvis pain in the area of the posterior iliac spine and left anterior knee pain. Additionally she denies chest pain/discomfort, shortness of breath, rib pain, difficulty breathing, abdominal pain, extremity weakness/numbness/tingling, difficulty walking after her episode, lumbar back pain. Review of Systems: As noted above in history of present illness. All body systems were reviewed and found to be negative as noted above. Past Medical History: (1) Accidental drug overdose (2) Alcohol abuse (3) Aspiration pneumonia (4) Back pain (5) Cataract (6) Chest pain (7) Chronic hepatitis C (8) Chronic obstructive lung disease (9) Chronic paranoid schizophrenia (10) Closed fracture of femur (11) COPD (chronic obstructive pulmonary disease) (12) Deep venous thrombosis (13) Depression (14) Drug abuse (15) Gastroesophageal reflux disease (16) Hepatitis C (17) Hypoxia (18) Hysterectomy (19) Opiate abuse, continuous (20) Osteomyelitis (21) Osteoporosis (22) Past Psych Meds (23) Psychosis (24) S/P ORIF (open reduction internal fixation) fracture (25) Schizoaffective disorder (26) Seizure (27) Sepsis (28) Suicidal ideation (29) Tinea (30) Tobacco user (31) UTI (urinary tract infection) Surgical Problems: (1) H/O colonoscopy (2) History of hysterectomy (3) S/p thoracic spinal surgery (4) S/P tonsillectomy Current Medications: Medications Dose Route/Sig Max Daily Dose Days Date Category Dose Instructions Trilafon (Perphenazine) 2 Mg Tab 2 Mg PO BID 05/22/17 Reported Prednisone 20 Mg Tab 20 Mg PO UD PRN 04/25/17 Reported RESCUE KIT FOLLOWS: TAKE 2 TABLETS (40 MG) DAILY FOR 5 DAYS Acetaminophen ER (Acetaminophen) 650 Mg Tab 650 Mg PO Q8 PRN 04/25/17 Reported Folic Acid 1 Mg Tab 1 Mg PO DAILY 04/25/17 Reported Celecoxib 100 Mg Cap 300 Mg PO DAILY 04/25/17 Reported Gabapentin 300 Mg Cap 300 Mg PO TID 04/25/17 Reported Docusate Sodium 100 Mg Cap 100 Mg PO BID 04/25/17 Reported Montelukast Sodium (Montelukast Sod) 10 Mg Tab 10 Mg PO HS 04/25/17 Reported Baclofen 10 Mg Tab 5 Mg PO TID PRN 04/25/17 Reported DO NOT GIVE THIS MEDICATION AFTER 1800 HOURS. ADMINISTER THIS MEDICATION ONE HOUR AFTER OTHER MEDICATIONS. Rexulti (Brexpiprazole) 2 Mg Tab 2 Mg PO QAM 04/25/17 Reported Nystatin Suspension (Nystatin) 1 Ml Susp 5 Ml PO QID 04/25/17 Reported PRESCRIBED 04/19/2017, SWISH AND SWALLOW 4 TIMES A DAY FOR 30 DAYS Tamsulosin HCl 0.4 Mg Cap 0.4 Mg PO HS 04/25/17 Reported Clozapine 100 Mg Tab 100 Mg PO TID 04/25/17 Reported Vitamin D3 (Cholecalciferol) 1,000 Unit Cap 1,000 Interunit PO DAILY 04/25/17 Reported Klonopin (Clonazepam) 0.5 Mg Tab 0.25 Mg PO BID 03/04/17 Reported Senna Plus (Sennosides-Docusate Sodium) 1 Tab Tab 1 Tab PO BID 01/10/17 Reported Oysco 500 (Oyster Shell) 500 Mg Tab 500 Mg PO BID 11/26/16 Reported Wellbutrin Sr (Bupropion HCl) 100 Mg Ertab 100 Mg PO QAM 11/26/16 Reported TAKE THIS MEDICATION WITH FOOD Ranitidine HCl 150 Mg Tab 150 Mg PO BID 10/13/16 Reported Flonase Allergy Relief (Fluticasone Propionate (Nasal)) 50 Mcg/Act Spr 2 Sprays JOSE QAM 09/12/16 Reported Ventolin Hfa (Albuterol) 200 Puffs/22414 Mcg Aers 2 Puffs INH Q6H PRN 08/31/16 Reported Calcitonin-[place] (Calcitonin [place]) 30 Bertram/3.7 Ml Soln 1 Bertram NA QPM 07/28/16 Reported ONCE DAILY. ALTERNATE NOSTRILS. Breo Ellipta (Fluticasone Furoate-Vilanterol) 1 Inh Inh 1 Puff INH QAM 06/26/16 Reported RINSE MOUTH AFTER USE Incruse Ellipta (Umeclidinium [place]) 62.5 Mcg/Inh Inh 1 Puff PO QAM 06/26/16 Reported Fenofibrate 48 Mg Tab 48 Mg PO QAM 12/19/14 Reported Escitalopram Oxalate 20 Mg Tab 20 Mg PO QAM 12/19/14 Reported Ferrous Sulfate 325 Mg Tab 325 Mg PO BIDM 10/11/13 Reported Allergies to Medications: Fluphenazine, haloperidol, hydrocodone, hydroxyzine, lithium, molindone, oxycodone, morphine. Social History: Patient is currently disabled; she feels safe in her home environment; she denies tobacco and alcohol use. Physical Examination: Vital Signs: Date Time Temp Pulse Resp B/P (MAP) Pulse Ox O2 Delivery O2 Flow Rate FiO2 05/22/17 16:43 95 05/22/17 16:00 100 16 120/65 98 Room Air 05/22/17 14:05 71 16 98 Nasal Cannula 2.0 05/22/17 12:12 79 18 134/83 99 Nasal Cannula 2.0 05/22/17 11:03 36.3 78 16 135/93 100 Room Air GENERAL: 56-year-old female in mild distress due to pain, nontoxic-appearing, afebrile and hemodynamically stable. NEUROLOGICAL: Awake, alert and oriented to person, place and time. Answering questions appropriately and following commands. Good hand eye coordination. Cranial nerves II through XII grossly intact. SKIN: Warm, dry and pink. No soft tissue eruptions or trauma noted. HEENT: Atraumatic and normocephalic. Skull: No bony deformity or crepitus. Tenderness over the left parietal area. No raccoons eyes or martinez signs. No drainage from the ears of the nostril; no hemotympanum. Face: No bony tenderness, swelling or ecchymosis. PERRLA. EOMI without nystagmus. No malocclusion. No intraoral trauma. Airway patent. Speech is normal and clear. Trachea midline. No jugular venous distention. BACK: No tenderness over the bony cervical and lumbar spine. Patient has left lateral neck pain mostly in the trapezius muscle but also some in the paraspinous muscles. I do not appreciate any spasm. After testing patient has full range of motion of the cervical spine. Patient has diffuse tenderness over all the thoracic vertebrae and in the bilateral paraspinous muscles without obvious spasm. I do not appreciate any bony deformity or step-offs. There are no soft tissue injuries consistent with contusions. No CVA tenderness. THORAX: Lungs sounds are clear to auscultation and equal bilaterally with symmetrical chest wall. No wheezing, rales or rhonchi. No crepitus, tenderness , subcutaneous air or deformities noted. HEART: Regular rate and rhythm. No gallops, rubs or murmurs are appreciated. ABDOMEN: Soft and nontender. Decreased bowel sounds in all quadrants. No guarding, rigidity or organomegaly. PELVIS: Stable and nontender to compression rock. Patient does have moderate tenderness over the left posterior superior iliac crest. There is mild erythema in this area but I do not appreciate any bony deformity or crepitus. EXTREMITIES: Moves all extremities well on command and with purpose. Left Upper Extremity: No gross bony deformities. Mild tenderness over the lateral humeral head. There are no bony deformities, crepitus or swelling. There is no tenderness throughout the proximal humerus. She does have mild tenderness over the olecranon process of the elbow without bony deformity or crepitus. There are some superficial abrasions over the elbow with no active bleeding. No tenderness throughout the forearm, wrist or hand. Throughout the extremity the skin is warm and pink and capillary refill is brisk. Distal pulses and sensation to light touch is intact. Right Upper Extremity: No gross bony deformities. Mild tenderness over the anterior humeral head without bony deformities, bony crepitus, swelling. No tenderness throughout the humerus, elbow, forearm or wrist. Throughout the extremity the skin was warm and pink and capillary refill is brisk. Distal pulses and sensation to light touch was intact. Left Lower Extremity: No gross bony deformity or crepitus. No shortening or malrotation. No tenderness in the hip, thigh, lower leg or ankle. Patient does have mild tenderness over the anterior knee just left of the patella. I do not appreciate any bony deformity or crepitus in this area. She has decreased range of motion. I did attempt to stress her ligamentous structures but it was difficult due to her body habitus and inability to relax her extremity. Throughout the leg skin was warm and pink and capillary refill is brisk. Distal pulses and sensation to light touch was intact throughout the extremity. RIGHT LOWER EXTREMITY: No gross bony deformity or crepitus. No shortening or malrotation. No tenderness over the hip, thigh, knee, lower leg or ankle. Throughout the leg the skin was warm and pink and capillary refill is brisk. Distal pulses and sensation to light touch was intact throughout. ED Course: Patient is assessed as noted above. Patient's medication list was reviewed. Laboratory Testing: Test 05/22/17 00:00 05/22/17 15:00 05/22/17 15:08 05/22/17 16:00 Range/Units Urine Color YELLOW Urine Appearance CLEAR CLEAR Urine pH 7.0 4.5-7.5 Urine Specific [place] 1.011 1.000-1.030 Urine Protein NEG NEG Urine Glucose (UA) NEG NEG Urine Ketones NEG NEG Urine Occult Blood NEG NEG Urine Nitrite NEG NEG Urine Bilirubin NEG NEG Urine Urobilinogen NEG NEG Urine Leukocyte Esterase MODERATE NEG Urine WBC (Auto) 10-30 0-5 /hpf Urine RBC (Auto) 0-4 0-4 /hpf Urine Hyaline Casts (Auto) 1-5 0-5 /lpf Urine Epithelial Cells (Auto) 5-10 0-5 /lpf Urine Bacteria (Auto) NEG NEG White Blood Count 8.47 4.8-10.8 K/uL Red Blood Count 4.80 4.2-5.4 M/uL Hemoglobin 15.1 12.0-16.0 g/dL Hematocrit 46.1 37-47 % Mean Corpuscular Volume 96.0 80-100 fL Mean Corpuscular Hemoglobin 31.5 25-34 pg Mean Corpuscular Hemoglobin Concent 32.8 32-36 g/dl Platelet Count 177 130-400 K/uL Mean Platelet Volume 10.4 7.4-10.4 fL Neutrophils (%) (Auto) 66.4 % Lymphocytes (%) (Auto) 22.3 % Monocytes (%) (Auto) 8.4 % Eosinophils (%) (Auto) 2.4 % Basophils (%) (Auto) 0.4 % Neutrophils # (Auto) 5.63 1.4-6.5 K/uL Lymphocytes # (Auto) 1.89 1.2-3.4 K/uL Monocytes # (Auto) 0.71 0.11-0.59 K/uL Eosinophils # (Auto) 0.20 0-0.5 K/uL Basophils # (Auto) 0.03 0-0.2 K/uL RDW Standard Deviation 48.4 36.4-46.3 fL RDW Coefficient of Variation 13.7 11.5-14.5 % Immature Granulocyte % (Auto) 0.1 % Immature Granulocyte # (Auto) 0.01 0.00-0.02 K/uL Sodium Level 138 136-145 mmol/L Potassium Level 4.3 3.5-5.1 mmol/L Chloride Level 104 98-107 mmol/L Carbon Dioxide Level 29 21-32 mmol/L Anion Gap 5.0 3-11 mmol/L Blood Urea Nitrogen 28 7-18 mg/dl Creatinine 1.02 0.60-1.20 mg/dl Est Creatinine Clear Calc Drug Dose 67.0 ml/min Estimated GFR () 70.7 Estimated GFR (Non- 61.0 BUN/Creatinine Ratio 27.5 10-20 Random Glucose 76 70-99 mg/dl Calcium Level 10.2 8.5-10.1 mg/dl Total Bilirubin 0.4 0.2-1 mg/dl Direct Bilirubin < 0.1 0-0.2 mg/dl Aspartate Amino Transf (AST/SGOT) 42 15-37 U/L Alanine Aminotransferase (ALT/SGPT) 39 12-78 U/L Alkaline Phosphatase 66 45-117 U/L Total Protein 8.5 6.4-8.2 gm/dl Albumin 3.9 3.4-5.0 gm/dl Bedside Troponin I < 0.030 0-0.045 ng/ml Urine Opiates Screen NEG NEG Urine Methadone, Qualitative NEG NEG Urine Barbiturates NEG NEG Urine Phencyclidine (PCP) Level NEG NEG Ur Amphetamine/Methamphetamine NEG NEG MDMA (Ecstasy) Screen POS NEG Urine Benzodiazepines Screen NEG NEG Urine Cocaine Metabolite NEG NEG Urine Marijuana (THC) NEG NEG EKG: Was read by myself and reviewed with Dr. Bravo; shows normal sinus rhythm with a ventricular rate of 67 bpm. Normal axis and intervals. There is ST inversion in the anterior leads that replaced nonspecific ST changes in her previous EKG from April 27, 2017. Chest X-Ray: Was read by myself and the radiologist showing persistent bilateral interstitial pulmonary opacities and postsurgical changes to the thoracic spine that were seen on her previous from April 19. Head CT: Was reviewed by myself and read by the radiologist showing no acute intracranial abnormalities or skull fractures. Cervical Spine CT: Was reviewed by myself and read by the radiologist and shows no acute fractures or subluxations. There are multiple areas of degenerative changes noted. Thoracic Spine CT: Was reviewed by myself and read by the radiologist showing no evidence of acute fracture or malalignment. Radiologist knows extensive chronic posttraumatic and postoperative findings; this is unchanged from prior examinations. Advanced emphysema with multifocal groundglass consolidations similar to her previous CT. Left Shoulder X-Rays: Were read by myself and the radiologist showing no acute fractures or dislocations. Radiologist notes irregularity of the medial aspect of the humeral neck which was felt to be chronic. Right Shoulder X-Rays: Read by myself and the radiologist showing no acute fractures or dislocations. Pelvis X-Rays: Were read by myself and the radiologist showing no acute fractures. Left Knee X-Rays: Were read by myself and the radiologist showing no acute fractures or joint effusions. Radiologist does note mild arthritis. Right Elbow X-Ray: Was read by myself and the radiologist showing no acute fractures or dislocations. An IV lock was initiated and patient was hydrated with normal saline. Patient was offered pain medication and refused. Patient was reassessed multiple times during her stay in the emergency department. Patient's case was reviewed with Dr. Bravo; we agreed on diagnostic approach, treatment, disposition and plan. [facility] based on her EKG changes. Patient was educated about today's findings. Clinical Impression: Altered mental status. EKG changes. Fall/syncope. Decision-Making: Initially my differential diagnosis besides her orthopedic complaints I considered syncope versus fall, myocardial infarction, arrhythmias and other causes. Disposition and Plan: [facility]; please see their notes and orders for final disposition and plan.
== END 2017-05-23 16:08 | disposition home or self-care (01) ==
LOC: EDBD 10:55 → C.EDB 10:57 → C.2T 16:47 → ENRESERV 17:21
PROVIDERS: ADMIT Family Medicine; ATTEND Family Medicine
DX: R55 Syncope and collapse (principal); R07.9 Chest pain, unspecified; R26.9 Unspecified abnormalities of gait and mobility; B18.2 Chronic viral hepatitis C; J44.9 Chronic obstructive pulmonary disease, unspecified; F32.9 Major depressive disorder, single episode, unspecified; K21.9 Gastro-esophageal reflux disease without esophagitis; F20.9 Schizophrenia, unspecified; F31.9 Bipolar disorder, unspecified; G89.4 Chronic pain syndrome; J96.10 Chronic respiratory failure, unspecified whether with hypoxia or hypercapnia; Z99.81 Dependence on supplemental oxygen; Z90.710 Acquired absence of both cervix and uterus; Z86.718 Personal history of other venous thrombosis and embolism; Z79.52 Long term (current) use of systemic steroids; Z87.01 Personal history of pneumonia (recurrent); Z87.440 Personal history of urinary (tract) infections; Z80.2 Family history of malignant neoplasm of other respiratory and intrathoracic organs; Z83.49 Family history of other endocrine, nutritional and metabolic diseases

== ENCOUNTER → 2017-06-29 | Outpatient (CLI) | payer OTHER ==
[~2017-06-29] MED LIST changes: -AMX500 PO; -NYSS/ PO; +PERP1TAB10 PO; -PERP1TAB5 PO
== END | disposition home or self-care (01) ==
LOC: C.LABSPEC 14:48
PROVIDERS: ATTEND Nurse Practitioner Family
DX: R33.9 Retention of urine, unspecified (principal)

== ENCOUNTER 2017-06-30 20:02 | Emergency (ER) | payer OTHER ==
[~2017-06-30] VITALS: Ht 162.6 cm; Wt 91.7 kg
[2017-06-30 20:12] VITALS: TEMP 36.9; Ht 162.6 cm; Wt 91.7 kg
--- NOTE | 2017-06-30 20:26 | EMERGENCY ROOM VISIT NOTE ---
History Report prepared by Stanley: Vicky Corado Under the Supervision of: Jodie HarrisO. First contact with patient: 20:15 Chief Complaint: SWELLING TO EXTREMITY Stated Complaint: POSS. R ANKLE THROMBUS History of Present Illness The patient is a 56 year old female who presents to the Emergency Room with complaints of persistent swelling to her right lower extremity that started yesterday. The patient rates her pain 3/10 in severity. The patient reports she has had 2 blood clots in her right leg before. She notes they have never traveled to her lungs. The patient states she noticed her right leg was getting "puffy and discolored dots were raising to the surface of her skin". She notes it hurts behind her calf and knee. The patient reports she is not on blood thinners at the time. She notes she is short of breath chronically, no new change. She wears 2L of O2 at home and 3L at night. Pt denies headache, change in vision, fevers, chest pain, palpitations, nausea, vomiting, diarrhea, pain with urination, and melena. Patient denies any recent trauma or change in activity. Source of History: patient Onset: yesterday Position: leg (right) Symptom Intensity: 3/10 Timing: other (persistent) Associated Symptoms: + SOB, No fevers, No headache, No chest pain, No nausea , No vomiting, No melena, No diarrhea, No urinary symptoms Review of Systems See HPI for pertinent positives & negatives. A total of 10 systems reviewed and were otherwise negative. Past Medical & Surgical Medical Problems: (1) Accidental drug overdose (2) Alcohol abuse (3) Aspiration pneumonia (4) Back pain (5) Cataract (6) Chest pain (7) Chronic hepatitis C (8) Chronic obstructive lung disease (9) Chronic paranoid schizophrenia (10) Closed fracture of femur (11) COPD (chronic obstructive pulmonary disease) (12) Deep venous thrombosis (13) Depression (14) Drug abuse (15) Gastroesophageal reflux disease (16) Hepatitis C (17) Hypoxia (18) Hysterectomy (19) Opiate abuse, continuous (20) Osteomyelitis (21) Osteoporosis (22) Past Psych Meds (23) Psychosis (24) S/P ORIF (open reduction internal fixation) fracture (25) Schizoaffective disorder (26) Seizure (27) Sepsis (28) Suicidal ideation (29) Syncope and collapse (30) Tinea (31) Tobacco user (32) UTI (urinary tract infection) Surgical Problems: (1) H/O colonoscopy (2) History of hysterectomy (3) S/p thoracic spinal surgery (4) S/P tonsillectomy Family History FH: lung cancer GRANDMOTHER Thyroid disorder MOTHER SISTER Social History Smoking Status: Former Smoker Marital Status: single Occupation Status: disabled Current/Historical Medications Scheduled Brexpiprazole (Rexulti), 2 MG PO QAM Bupropion (Wellbutrin Sr), 100 MG PO QAM Calcitonin [place] (Calcitonin-[place]), 1 SPRAY NA QPM Celecoxib (Celecoxib), 100 MG PO TID Cholecalciferol (Vitamin D3), 1,000 INTERUNIT PO DAILY Clonazepam (Klonopin), 0.25 MG PO TID Clozapine (Clozapine), 100 MG PO TID Docusate Sodium (Docusate Sodium), 100 MG PO BID Escitalopram Oxalate (Escitalopram Oxalate), 20 MG PO QAM Fenofibrate (Fenofibrate), 48 MG PO QAM Ferrous Sulfate (Ferrous Sulfate), 325 MG PO BIDM Fluticasone Furoate-Vilanterol (Breo Ellipta), 1 PUFF INH QAM Fluticasone Propionate (Nasal) (Flonase Allergy Relief), 2 SPRAYS JOSE QAM Folic Acid (Folic Acid), 1 MG PO DAILY Gabapentin (Gabapentin), 300 MG PO TID Montelukast Sod (Montelukast Sodium), 10 MG PO HS Oyster Shell ([place]ys[place] 500), 500 MG PO BID Perphenazine (Trilafon), 2 MG PO HS Ranitidine HCl (Ranitidine HCl), 150 MG PO BID Sennosides-Docusate Sodium (Senna Plus), 1 TAB PO BID Tamsulosin HCl (Tamsulosin HCl), 0.4 MG PO HS Umeclidinium Ruby (Incruse Ellipta), 1 PUFF PO QAM Scheduled PRN Acetaminophen (Acetaminophen ER), 650 MG PO Q8 PRN for Fever Albuterol Hfa (Ventolin Hfa), 2 PUFFS INH Q6H PRN for SOB/Wheezing Baclofen (Baclofen), 5 MG PO 5XD PRN for Muscle Spasm Prednisone (Prednisone), 20 MG PO UD PRN for Rescue Kit Allergies Coded Allergies: Hydrocodone (Verified Allergy, Severe, DROWSY, 05/22/17) Haloperidol (Verified Allergy, Unknown, "MAKES ME GO INTO BLACKOUT", ) Hydroxyzine (Verified Allergy, Unknown, UNKNOWN, 05/22/17) INFO FROM [facility] [place] (Verified Allergy, Unknown, "LEVEL CAN GET TOO HIGH", 05/22/17) Oxycodone (Verified Adverse Reaction, Severe, DROWSY, 05/22/17) Molindone (Verified Adverse Reaction, Intermediate, PT FEELS LIKE SHES "JUMPING OUT OF HER SKIN", 05/22/17) Morphine and Related (Verified Adverse Reaction, Intermediate, DROWSY, ) px was drowsy w/ pinpoint pupils and minimally responsive. stable VS. Following Morphine IR 15mg - 3 doses in prior 24 hours. Naloxone 0.4mg admin 3 times during that period. Fluphenazine (Verified Adverse Reaction, Unknown, confusion, 05/22/17) Physical Exam Vital Signs Date Time Temp Pulse Resp B/P (MAP) Pulse Ox O2 Delivery O2 Flow Rate FiO2 06/30/17 22:30 84 20 117/76 99 06/30/17 20:13 103 06/30/17 20:12 36.9 108 18 128/69 98 Nasal Cannula 2.0 Physical Exam GENERAL: alert, well appearing, well nourished, no distress, non-toxic, obese, edentulous, nasal cannula in place EYE EXAM: normal conjunctiva, PERRL and EOM's grossly intact OROPHARYNX: no exudate, no erythema, lips, buccal mucosa, and tongue normal and mucous membranes are moist NECK: supple, no nuchal rigidity, no adenopathy, non-tender LUNGS: Lung sounds diminished, no wheezes, rhonchi, or rales. HEART: no murmurs, S1 normal and S2 normal ABDOMEN: abdomen soft, non-tender, normo-active bowel sounds, no masses, no rebound or guarding. BACK: Back is symmetrical on inspection and there is no deformity, no midline tenderness, no CVA tenderness. SKIN: no rashes and no bruising UPPER EXTREMITIES: upper extremities are grossly normal. LOWER EXTREMITIES: No pitting edema. Pt complains of diffused pain, negative Homans sign, normal pulses, no joint effusions, no deformities. No erythema or evidence of cellulitis, no deformities or other evidence of trauma. NEURO EXAM: Normal sensorium, cranial nerves II-XII [grossly] intact, normal speech, no [gross] weakness of arms, no [gross] weakness of legs. Medical Decision & Procedures ER Provider Diagnostic Interpretation: Radiology results have been interpreted by the radiologist and reviewed by me. R VENOUS DOPP LOWER EXT UNILAT CLINICAL HISTORY: 56 years-old Female presenting with swelling, hx dvt. TECHNIQUE: Real-time grayscale and color and spectral Doppler ultrasound imaging of the veins of the right lower extremity was performed. Compression and augmentation were also utilized. COMPARISON: 03/26/2017. FINDINGS: Right: Common femoral vein: Patent. Greater saphenous vein: Patent. Deep femoral vein: Patent. Femoral vein: Patent. Popliteal vein: Patent. Calf veins: Limited visualization. Other: At the site of clinical interest in the distal lateral calf, no sonographic abnormality is evident. IMPRESSION: No evidence of deep venous thrombosis. Electronically signed by: Ayden Palacios M.D. 06/30/2017 9:25 PM Dictated Date/Time: 06/30/2017 9:24 PM ED Course 2015: The patient was evaluated in room C3. A complete history and physical exam was performed. 2140: Upon reevaluation, the patient is feeling better. I discussed the findings and the treatment plan with the patient. She verbalizes agreement and understanding. She was discharged home. Medical Decision Differential diagnosis: Etiologies such as DVT, musculoskeletal, infection, joint effusion, trauma, lymphedema, idiopathic, CHF, as well as others were entertained.. Patient well-appearing here. Patient well-known to the emergency department and here frequently for various complaints. No DVT identified on lower extremity Doppler. Patient with no symptoms to suggest PE or other thromboembolic disease. Patient's vital signs stable throughout. Discussed with patient close follow-up with family doctor, possible need for repeat lower extremity Doppler if symptoms persist, symptoms to watch and return to the ER for, she verbalized understanding was agreeable with plan. Medication Reconcilliation Current Medication List: was personally reviewed by me Blood Pressure Screening Patient's blood pressure: Normal blood pressure Impression Primary Impression: Swelling of right extremity Scribe Attestation The scribe's documentation has been prepared under my direction and personally reviewed by me in its entirety. I confirm that the note above accurately reflects all work, treatment, procedures, and medical decision making performed by me. Departure Information Dispostion Home / Self-Care Referrals Naveed Adam III, M.D. (PCP) Patient Instructions [facility] Additional Instructions Please continue to monitor the swelling in your legs closely. Please call follow-up with your family doctor as he may require a repeat ultrasound of your lower extremities if the symptoms persist. If you notice increased pain, develop a rash or sores, develop fevers, chest pain, palpitations, trouble breathing, dizziness, you have any other new concerns, please return the emergency room.
--- NOTE | 2017-06-30 21:26 | DIAGNOSTIC IMAGING REPORT ---
R VENOUS DOPP LOWER EXT UNILAT CLINICAL HISTORY: 56 years-old Female presenting with swelling, hx dvt. TECHNIQUE: Real-time grayscale and color and spectral Doppler ultrasound imaging of the veins of the right lower extremity was performed. Compression and augmentation were also utilized. COMPARISON: 03/26/2017. FINDINGS: Right: Common femoral vein: Patent. Greater saphenous vein: Patent. Deep femoral vein: Patent. Femoral vein: Patent. Popliteal vein: Patent. Calf veins: Limited visualization. Other: At the site of clinical interest in the distal lateral calf, no sonographic abnormality is evident. IMPRESSION: No evidence of deep venous thrombosis. Electronically signed by: Ayden Palacios M.D. 06/30/2017 9:25 PM Dictated Date/Time: 06/30/2017 9:24 PM
[2017-06-30 22:30] VITALS: BP 117/76; PULSE 84; O2SAT 99
== END 2017-06-30 22:30 | disposition home or self-care (01) ==
LOC: EDUNIT# 20:02 → C.EDC 20:04
DX: R60.0 Localized edema (principal); B18.2 Chronic viral hepatitis C; J44.9 Chronic obstructive pulmonary disease, unspecified; F20.0 Paranoid schizophrenia; F32.9 Major depressive disorder, single episode, unspecified; R09.02 Hypoxemia; M81.0 Age-related osteoporosis without current pathological fracture; F25.9 Schizoaffective disorder, unspecified; Z99.81 Dependence on supplemental oxygen; Z86.718 Personal history of other venous thrombosis and embolism; Z87.891 Personal history of nicotine dependence; Z79.899 Other long term (current) drug therapy; Z79.52 Long term (current) use of systemic steroids; Z88.5 Allergy status to narcotic agent; Z88.8 Allergy status to other drugs, medicaments and biological substances

== ENCOUNTER → 2017-07-12 | Outpatient (CLI) | payer OTHER ==
--- NOTE | 2017-07-12 12:03 | DIAGNOSTIC IMAGING REPORT ---
VIDEO SWALLOW CLINICAL HISTORY: 56 years-old Female presenting with ABNORMAL CHEST CT, COUGH W/SWALLOWING, R/O. TECHNIQUE: Video fluoroscopic evaluation of swallowing was performed in the AP and lateral projections in conjunction with speech pathology. The patient was administered various textures, including nectar-thick and thin liquid barium, and barium pudding. Solids were not administered secondary to buccal soreness. COMPARISON: 07/31/2013. FINDINGS: Posterior thoracic fusion hardware. Right internal jugular Mediport noted. There is normal hyoid excursion and epiglottic deflection. Flash penetration evident on administration of thin liquids. This does not reach the vocal folds. No aspiration with thin liquids. No aspiration or penetration of any of the remaining administered textures. Residual contrast noted in the esophagus and a large diverticulum extending from the lateral aspect of the cervical esophagus. The visualized portion of the esophagus appears tortuous. Fluoroscopy dosage (mGy): Not available. Fluoroscopy time: 1.4 minutes. Number of fluoroscopic spot images: 0. IMPRESSION: 1. Penetration of thin liquids. No aspiration. 2. 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 3. Please see the speech pathologist report for detailed findings and recommendations. Electronically signed by: Ayden Palacios M.D. 07/12/2017 12:02 PM Dictated Date/Time: 07/12/2017 11:58 AM
--- NOTE | 2017-07-13 18:50 | SWALLOWING EVALUATION ---
REFERRING SPEECH PATHOLOGIST: n/a HISTORY: This 56 year-old female was referred for a VFSS at [facility] in order to rule out aspiration and address abnormal findings on recent chest CT. The patient has a PMH significant for COPD with O2 dependence, Hepatitis C, remote ETOH and narcotic abuse, schizophrenia, depression, aspiration pneumonia, DVT, GERD, (+) tobacco use and osteoporosis. A previous Video Swallow Study completed in 2013 revealed no oral-pharyngeal dysphagia, but there was severe esophageal dysmotility noted and recommendations were given to address it. Currently the patient's diet level is regular. PROCEDURE: The patient was seen in the Radiology Department of [facility] for the VFSS. Cursory examination of the oral cavity revealed her to be edentulous and patient states that her gums are still soft from having "12 teeth removed". She does not have dentures "yet". Movement of the articulators was WNL. The patient was seated on a stool and was viewed in both the Anterior-Posterior (A-P) and Lateral planes. Volitional phonation exercises completed in the A-P plane revealed bilateral vocal fold movement and vocal intensity within functional limits. In the lateral plane, the patient was given the following boluses: 1 tsp. thin liquid barium x 2, single swallow thin liquid barium self-presented from a cup, sequential swallows of thin liquid barium self-presented from a straw, 1 tsp. nectar-thick liquid barium, single swallow nectar-thick liquid barium self-presented from a straw, and 1 tsp. barium pudding. No cracker bolus was given d/t patient concerns her gums were too tender. The patient was then repositioned into the A-P plane and a scan of the esophagus was completed. RESULTS: Oral Stage: No interlabial bolus escape. Bolus loss to floor of mouth during attempts at oral bolus hold of thin liquid. Mastication not assessed. Lingual movement for bolus transfer was timely and efficient. Collection of residue on tongue after initial swallow of pudding bolus. This cleared with a second swallow. Pharyngeal swallow initiation occurred when the bolus head was in the valleculae. Mild oral-stage dysphagia with no implication for patient swallowing safety. Pharyngeal Stage: Velar elevation complete. Laryngeal elevation, anterior hyoid excursion, epiglottic inversion, laryngeal vestibular closure, pharyngeal stripping wave, pharyngeal contraction, PES opening, tongue base retraction and pharyngeal clearance were complete/WNL. No penetration or aspiration during the study with the exception of a single episode of flash penetration with thin liquids that was not repeated. No pharyngeal-stage dysphagia. Esophageal Stage: As soon as the patient was returned to the AP plane and fluoro restarted it was apparent that there was a diverticulum in the cervical esophagus filled with contrast and there was proximal esophageal dysmotility. Per Radiologist report the diverticulum is: "Lateral diverticulum in the cervical esophagus may represent a Danny Chepe diverticulum." SUMMARY/RECOMMENDATIONS: This patient presents with no significant oral-pharyngeal dysphagia; however, the patient presents with s/s esophageal dysfunction. The following is recommended: 1. SLIPPERY diet: choose foods that are moist, loose, slippery; avoid foods that are dry, doughy, pasty, thick; use condiments as needed to make foods slippery 2. Aspiration precautions: Pt should be UPRIGHT while eating and remain fully upright for 30 minutes after meals. Pt should have the head of her bed elevated AT LEAST 30-degrees at ALL times-even during sleep. Alternate solids and liquids frequently during meals. 3. Consideration of f/u with surgeon and gastroenterology to investigate possible repair of diverticulum. It was not appropriate to discuss the study findings with the patient or her accompanying republican. Referring physician should f/u with patient and POA. Thank you for referral of this patient. Please contact me at if any additional information is needed.
== END | disposition home or self-care (01) ==
LOC: C.RAD 11:06
PROVIDERS: ATTEND Nurse Practitioner Family
DX: R13.10 Dysphagia, unspecified (principal); R93.8 Abnormal findings on diagnostic imaging of other specified body structures; J84.9 Interstitial pulmonary disease, unspecified; J96.11 Chronic respiratory failure with hypoxia; R05 Cough; K22.9 Disease of esophagus, unspecified

== ENCOUNTER 2017-09-16 11:11 | Inpatient (IN) | payer OTHER ==
[~2017-09-16] VITALS: Ht 165.1 cm; Wt 93.3 kg
[~2017-09-16 11:11] MED LIST changes: +ACET500T58 PO; -ACET650T9 PO; +AZIT250T PO; +CALC-567 PO; -CALCTAB27 PO; -CELE1CAP28 PO; -CHOL1CAP57 PO; -CLON0.5T3 PO; -GABA-1219 PO; +KLN5 PO; +MOML PO; +NRN400 PO; -PERP1TAB10 PO; +PRMT10 PO; +UMEC1INH INH; -UMEC1INH PO
[2017-09-16] MEDS ORDERED: SODIUM CHLORIDE 0.9% 1000ML 1,000 ML IV STA (11:51)
--- NOTE | 2017-09-16 11:57 | EMERGENCY ROOM VISIT NOTE ---
ED Visit Note First contact with patient: 11:34 CHIEF COMPLAINT: UTI, fall, left flank pain, head injury with headache HISTORY OF PRESENTING ILLNESS: This is a 56-year-old female with past medical history significant for interstitial lung disease on 2-3 L nasal cannula home oxygen, hepatitis C, schizoaffective disorder, depression, chronic back pain, GERD, history drug and alcohol abuse, who presents to the emergency department via EMS with complaints of a UTI. Patient is a poor historian. The patient states that she was diagnosed by her doctor yesterday with a UTI, but states that she did not start the antibiotics yet. She states last night she had incontinence in her bed. She also states that while she was rushing to the bathroom, she lost her balance and fell, she does believe that she hit her head , but denies loss of consciousness. She has been having headaches since that time. She is complaining of some pain in her left flank area, she is unable to differentiate if she had the pain before or after the fall. There was some question by EMS and the patient of fevers, the patient does not have a fever now. She denies any vision changes, neck pain, chest pain, shortness of breath , abdominal pain, nausea or vomiting. She has a chronic cough, but states this has not gotten any worse. She does not take blood thinners. REVIEW OF SYSTEMS: A complete 10 point review of systems was reviewed with the patient with pertinent positives and negatives as per history of present illness. All else were negative. PAST MEDICAL HISTORY: Reviewed in chart, see problem list below. SOCIAL HISTORY: Lives at home with her mother and sister. She is a current everyday smoker. ALLERGIES: Reviewed in chart, see below. PHYSICAL EXAM: CONSTITUTIONAL: Pleasant and cooperative. No acute distress. Mildly dehydrated. Nontoxic appearing. HEENT: Normocephalic, atraumatic. Pupils equal, round and reactive to light, EOMI. TMs normal. Pharynx normal. Tacky mucous membranes. NECK: Supple, full active range of motion without discomfort. RESPIRATORY: Diffuse bilateral mild expiratory wheezing and fine crackles, diminished in bases, no rhonchi or stridor. Equal expansion bilaterally. CARDIOVASCULAR: Tachycardic. Regular rhythm with no murmurs, rubs or gallops. Normal peripheral perfusion. No edema. GASTROINTESTINAL: Left flank tenderness to palpation, abdomen is otherwise soft , nontender, nondistended, obese. No palpable masses or HSM. Bowel sounds present in all quadrants. Left-sided CVA tenderness to percussion. No right- sided CVA tenderness. No ecchymosis, abrasions, or swelling of the back or abdomen. MUSCULOSKELETAL: Full range of motion of all joints without discomfort. INTEGUMENTARY: No rash or other significant dermatologic conditions noted. NEUROLOGIC: Alert and oriented X 4 with normal affect. Cranial nerves II-XII grossly intact, no facial droop. No pronator drift. No focal neurologic deficits noted. 5/5 strength in all 4 extremities, sensation intact to light touch in all 4 extremities. Normal speech. Mqooiv-blik-eqmcvl testing normal. ED COURSE AND MEDICAL DECISION MAKING: CC: Patient presenting with complaint of UTI, fall, left flank pain, head injury with headache DIFFERENTIAL DIAGNOSIS: Includes, but not limited to UTI, pyelonephritis, urosepsis, ureteral stone, intra-abdominal trauma secondary to fall, head trauma secondary to fall, sepsis/bacteremia, dehydration, anemia, electrolyte abnormality, among others. INTERPRETATION OF LABS: Leukocytosis with left shift, no anemia, normal platelets, no significant electrolyte abnormalities, normal renal function, normal liver enzymes. Lactic acid within normal limits. UA consistent with UTI , urine culture pending. IMAGING: ABDOMEN AND PELVIS CT WITH IV CONTRAST HISTORY: Acute left-sided flank pain status post fall fall, left flank pain, eval trauma, pyelo TECHNIQUE: Multiaxial CT images of the abdomen and pelvis were performed following the use of intravenous contrast. A dose lowering technique was utilized adhering to the principles of ALARA. COMPARISON STUDY: CT abdomen and pelvis 08/16/2017 FINDINGS: Multifocal groundglass and consolidative opacities about the bilateral lung bases with bronchiectasis and cystic parenchymal changes. Respiratory motion limits evaluation of the lung bases. There is no pneumatosis or pneumoperitoneum identified. Imaged inferior cardiac chambers are enlarged. Partially imaged pacer leads. Contracted gallbladder with apparent wall thickening. Liver is unremarkable. No intrahepatic biliary ductal dilation. Spleen, pancreas and adrenal glands are unremarkable. Mild bilateral perinephric stranding. Urothelial enhancement is seen bilateral renal pelves and ureters. There is mild left-sided hydroureteronephrosis. Punctate nonobstructing calculi are seen about the superior pole left kidney. No ureteral calculi identified. There is marked trabeculation of the bladder with marked circumferential wall thickening and mild perivesicular stranding. Prior hysterectomy. Aorta and IVC are unremarkable. Moderate mixed plaquing of the aorta without aneurysm. No pathologically enlarged lymph nodes. Small sliding-type hiatal hernia. Fluid noted within the distal esophagus. No bowel obstruction or focal bowel wall thickening. Moderate formed stool throughout the colon. Appendix appears normal. Tiny fat filled The cardiac. Soft tissues are unremarkable. Orthopedic hardware about the bilateral proximal femora. Demineralized appearance of the bones. Multilevel facet arthropathy. Chronic posterior lateral left rib fractures. Postoperative changes from prior posterior interbody nina and screw fusion of the thoracic spine. Pseudoarthrosis at T11-T12. Remote appearing compression deformities. IMPRESSION: 1. Bilateral urothelial enhancement with mild left-sided hydroureteronephrosis. Additionally, there is marked wall thickening and trabeculation of the urinary bladder. Findings suggest cystitis with ascending ureteritis/pyelitis. 2. Punctate nonobstructing left-sided nephrolithiasis. 3. Normal appendix. 4. Bibasilar mixed alveolar and groundglass opacities with bronchiectasis redemonstrated. 5. Additional findings as above. ----- HEAD WITHOUT CONTRAST (CT) CLINICAL HISTORY: 56 years-old Female with fall, hit head, eval trauma. Acute head injury status post trauma TECHNIQUE: Multiple axial CT images of the head were obtained without contrast. A dose lowering technique was utilized adhering to the principles of ALARA. CT DOSE: CT head 08/03/2017 COMPARISON: None. FINDINGS: No acute intracranial hemorrhage, midline shift, intracranial mass, hydrocephalus, territorial ischemia or abnormal extra-axial collection. Age-related involutional changes with ex vacuo ventriculomegaly. The calvarium is intact. The paranasal sinuses, mastoid air cells, and middle ear cavities are clear. IMPRESSION: No acute intracranial abnormality or calvarial fracture. ----- CHEST ONE VIEW PORTABLE HISTORY: 56 years-old Female cough acute cough COMPARISON: Chest radiograph and CTA chest 08/27/2017 TECHNIQUE: Portable AP view of the chest FINDINGS: Cardiac silhouette is mildly enlarged. Chronic interstitial coarsening redemonstrated. Right internal jugular Nbeqfh-v-Tkbn catheter appears unchanged. No pneumothorax, pleural effusion or overt pulmonary edema. Bones of the chest appear grossly intact. IMPRESSION: 1. Chronic bilateral interstitial opacities without acute process. 2. Cardiomegaly without overt pulmonary edema. EKG: Shows sinus tachycardia with a rate of 108 bpm, no ST or T wave changes, no ectopy, no significant change when compared to previous EKG from 08/27/2017 by my interpretation. MEDICATION RECONCILIATION: I attest that I have personally reviewed the patient 's current medication list. INITIAL VITAL SIGNS REVIEW: I reviewed the patient's initial vital signs and interpret them as follows: T: Afebrile; BP: Normotensive; HR: Tachycardic; RR : Within normal limits; Pulse Ox: Within normal limits on 2 L oxygen (baseline home oxygen level). Blood pressure screening: The patient was found to have normal blood pressure on screening and does not require follow-up for repeat blood pressure check. SUMMARY: Patient was evaluated at bedside, history and physical exam performed. Patient is alert and oriented, no acute distress, resting in the stretcher. Patient is tender to palpation of the left flank area, no bruising or swelling noted. Patient is noted to be tachycardic, and appears dehydrated on exam. She is afebrile. EKG reviewed at bedside, ST with no acute ischemic changes noted. Orders were placed at bedside for labs, cath UA and culture, IV fluid bolus for hydration, CXR, CT head and CT abd/pelvis to evaluate for injury from the fall. Patient discussed with Dr. Bravo, who agrees with my assessment and plan. Labs and imaging reviewed as above, consistent with UTI and ascending pyelonephritis on the left, which does correlate with the patient's c/o left flank pain. IV Rocephin 2g ordered. Given the presence of pyelonephritis on CT with complaint of fevers at home, leukocytosis on labs today, and patient's comp gated medical history, I do feel that she would benefit from an admission for treatment of her pyelonephritis. I spoke on phone with Dr. Bell, hospitalist, who agrees to evaluate the patient for admission. Patient reassessed multiple times throughout ED stay, she is remained stable and without any significant complaints. She continues to rest comfortably in stretcher. Patient was updated on all results and plan for admission, she verbalized understanding and was agreeable to this plan. Patient was stable at time of admission. Problem List Medical Problems: (1) Accidental drug overdose Status: Resolved (2) Alcohol abuse Permanent Comment: no recent use attends AA Status: Resolved (3) Aspiration pneumonia Status: Resolved (4) Cataract Status: Chronic (5) Chest pain Status: Resolved (6) Chronic back pain Status: Chronic (7) Chronic hepatitis C Status: Chronic (8) Chronic obstructive lung disease Status: Chronic (9) Chronic paranoid schizophrenia Status: Chronic (10) Closed fracture of femur Permanent Comment: s/p ORIF Status: Resolved (11) Contusion of head Status: Resolved (12) COPD (chronic obstructive pulmonary disease) Status: Chronic (13) Deep venous thrombosis Status: Chronic (14) Depression Status: Chronic (15) Drug abuse Permanent Comment: narcotic addiction due to chronic pain attends NA Status: Resolved (16) Dyspnea Status: Resolved (17) Fall Status: Resolved (18) Gastroesophageal reflux disease Status: Chronic (19) Hepatitis C Status: Chronic (20) Hypoxia Status: Chronic (21) Hysterectomy Status: Resolved (22) Osteomyelitis Status: Resolved (23) Osteoporosis Status: Chronic (24) S/P ORIF (open reduction internal fixation) fracture Permanent Comment: femur Status: Chronic (25) Schizoaffective disorder Status: Chronic (26) Seizure Status: Resolved (27) Sepsis Status: Resolved (28) Suicidal ideation Status: Resolved (29) Syncope and collapse Status: Resolved (30) Tinea Status: Resolved (31) Tobacco user Status: Chronic (32) UTI (urinary tract infection) Status: Resolved Surgical Problems: (1) H/O colonoscopy Status: Chronic (2) History of hysterectomy Status: Chronic (3) S/p thoracic spinal surgery Permanent Comment: 07/07/2015; Dr. Caballero at [facility] [place] Status: Chronic (4) S/P tonsillectomy Status: Chronic Current/Historical Medications Scheduled Brexpiprazole (Rexulti), 2 MG PO QAM Bupropion (Wellbutrin Sr), 100 MG PO QAM Calcitonin [place] (Calcitonin-[place]), 1 SPRAY NA QPM Btbxnvr-Jadf-Dksihzx D-Vitamin (Calcium Soft Chews [id number] mg-Unt-Mcg), 1 TAB PO BID Celecoxib (Celebrex), 1 CAP PO TID Clozapine (Clozapine), 100 MG PO TID Docusate Sodium (Docusate Sodium), 100 MG PO BID Escitalopram Oxalate (Escitalopram Oxalate), 1.5 TABS PO QAM Fenofibrate (Fenofibrate), 48 MG PO QAM Ferrous Sulfate (Ferrous Sulfate), 325 MG PO BIDM Fluticasone Furoate-Vilanterol (Breo Ellipta), 1 PUFF INH QAM Fluticasone Propionate (Nasal) (Flonase Allergy Relief), 2 SPRAYS JOSE QAM Folic Acid (Folic Acid), 1 MG PO DAILY Gabapentin (Gabapentin), 400 MG PO TID Menaquinone-7 (Vitamin K2), 40 MCG PO DAILY Midodrine (Midodrine HCl), 10 MG PO TID@08,12,17 Montelukast Sod (Montelukast Sodium), 10 MG PO HS Perphenazine (Trilafon), 2 MG PO BID Ranitidine HCl (Ranitidine HCl), 150 MG PO BID Sennosides-Docusate Sodium (Senna Plus), 2 TABS PO DAILY Tamsulosin HCl (Tamsulosin HCl), 0.4 MG PO HS Umeclidinium [place] (Incruse Ellipta), 1 PUFF INH QAM Zoledronic Acid (Reclast), 1 DOSE IV YEARLY Scheduled PRN Acetaminophen (Acetaminophen), 1,000 MG PO UD PRN for Pain Albuterol Hfa (Ventolin Hfa), 2 PUFFS INH Q6H PRN for SOB/Wheezing Azithromycin (Zithromax), 250 MG PO UD PRN for Rescue Kit Clonazepam (Klonopin), 0.5 TAB PO QID PRN for Anxiety Magnesium Hydroxide (Milk Of Magnesia), 30 ML PO DAILY PRN for Constipation Prednisone (Prednisone), 20 MG PO UD PRN for Rescue Kit Allergies Coded Allergies: Hydroxyzine (Verified Allergy, Unknown, UNKNOWN, 09/16/17) [place] [facility] [place]one (Verified Adverse Reaction, Severe, DROWSY, 09/16/17) Oxycodone (Verified Adverse Reaction, Severe, DROWSY, 09/16/17) Molindone (Verified Adverse Reaction, Intermediate, PT FEELS LIKE SHES "JUMPING OUT OF HER SKIN", 09/16/17) Morphine and Related (Verified Adverse Reaction, Intermediate, DROWSY, ) px was drowsy w/ pinpoint pupils and minimally responsive. stable VS. Following Morphine IR 15mg - 3 doses in prior 24 hours. Naloxone 0.4mg admin 3 times during that period. Fluphenazine (Verified Adverse Reaction, Unknown, confusion, 09/16/17) Haloperidol (Verified Adverse Reaction, Unknown, "MAKES ME GO INTO BLACKOUT", 09/16/17) [place] (Verified Adverse Reaction, Unknown, "LEVEL CAN GET TOO HIGH", ) Vital Signs Date Time Temp Pulse Resp B/P (MAP) Pulse Ox O2 Delivery O2 Flow Rate FiO2 09/16/17 13:19 103 16 128/92 98 Nasal Cannula 2.0 09/16/17 12:11 99 Nasal Cannula 2.0 09/16/17 11:22 110 09/16/17 11:19 37.2 108 22 120/74 97 Nasal Cannula 2.0 Laboratory Results 09/16/17 12:03 Red Blood Count 4.28, Mean Corpuscular Volume 96.7, Mean Corpuscular Hemoglobin 31.1, Mean Corpuscular Hemoglobin Concent 32.1, Mean Platelet Volume 10.3, Neutrophils (%) (Auto) 81.2, Lymphocytes (%) (Auto) 7.6, Monocytes (%) (Auto) 10.5, Eosinophils (%) (Auto) 0.2, Basophils (%) (Auto) 0.1, Neutrophils # (Auto ) 11.72, Lymphocytes # (Auto) 1.09, Monocytes # (Auto) 1.51, Eosinophils # (Auto ) 0.03, Basophils # (Auto) 0.01 09/16/17 12:03 Test 09/16/17 12:03 09/16/17 12:12 09/16/17 12:18 White Blood Count 14.42 K/uL (4.8-10.8) Red Blood Count 4.28 M/uL (4.2-5.4) Hemoglobin 13.3 g/dL (12.0-16.0) Hematocrit 41.4 % (37-47) Mean Corpuscular Volume 96.7 fL (80-100) Mean Corpuscular Hemoglobin 31.1 pg (25-34) Mean Corpuscular Hemoglobin Concent 32.1 g/dl (32-36) Platelet Count 146 K/uL (130-400) Mean Platelet Volume 10.3 fL (7.4-10.4) Neutrophils (%) (Auto) 81.2 % Lymphocytes (%) (Auto) 7.6 % Monocytes (%) (Auto) 10.5 % Eosinophils (%) (Auto) 0.2 % Basophils (%) (Auto) 0.1 % Neutrophils # (Auto) 11.72 K/uL (1.4-6.5) Lymphocytes # (Auto) 1.09 K/uL (1.2-3.4) Monocytes # (Auto) 1.51 K/uL (0.11-0.59) Eosinophils # (Auto) 0.03 K/uL (0-0.5) Basophils # (Auto) 0.01 K/uL (0-0.2) RDW Standard Deviation 48.7 fL (36.4-46.3) RDW Coefficient of Variation 13.8 % (11.5-14.5) Immature Granulocyte % (Auto) 0.4 % Immature Granulocyte # (Auto) 0.06 K/uL (0.00-0.02) Anion Gap 6.0 mmol/L (3-11) Est Creatinine Clear Calc Drug Dose 83.4 ml/min Estimated GFR () 89.4 Estimated GFR (Non- 77.2 BUN/Creatinine Ratio 17.5 (10-20) Calcium Level 8.8 mg/dl (8.5-10.1) Total Bilirubin 0.5 mg/dl (0.2-1) Aspartate Amino Transf (AST/SGOT) 19 U/L (15-37) Alanine Aminotransferase (ALT/SGPT) 24 U/L (12-78) Alkaline Phosphatase 61 U/L (45-117) Total Protein 7.9 gm/dl (6.4-8.2) Albumin 3.3 gm/dl (3.4-5.0) Globulin 4.6 gm/dl (2.5-4.0) Albumin/Globulin Ratio 0.7 (0.9-2) Bedside Lactic Acid Venous 0.72 mmol/L (0.90-1.70) Urine Color YELLOW Urine Appearance CLOUDY (CLEAR) Urine pH 8.0 (4.5-7.5) Urine Specific [place] 1.011 (1.000-1.030) Urine Protein NEG (NEG) Urine Glucose (UA) NEG (NEG) Urine Ketones NEG (NEG) Urine Occult Blood TRACE (NEG) Urine Nitrite NEG (NEG) Urine Bilirubin NEG (NEG) Urine Urobilinogen NEG (NEG) Urine Leukocyte Esterase LARGE (NEG) Urine WBC (Auto) >30 /hpf (0-5) Urine RBC (Auto) 5-10 /hpf (0-4) Urine Hyaline Casts (Auto) 1-5 /lpf (0-5) Urine Epithelial Cells (Auto) 0-5 /lpf (0-5) Urine Bacteria (Auto) 4+ (NEG) Medications Administered Medications (Trade) Dose Ordered Sig/Janel Route Start Time Stop Time Status Last Admin Dose Admin Sodium Chloride 1,000 ml @ 999 mls/hr Q1H1M STAT IV 09/16/17 11:51 09/16/17 12:51 DC 09/16/17 12:05 999 MLS/HR Ceftriaxone Sodium 2000 mg/ Dextrose 70 ml @ 100 mls/hr ONE STAT IV 09/16/17 12:58 09/16/17 13:39 DC 09/16/17 13:35 100 MLS/HR Departure Information Referrals Naveed Adam III, M.D. (PCP) Patient Instructions My [facility]
[2017-09-16 12:17] LABS: BASO % 0.1 %; BASO ABS # 0.01 K/uL (0-0.2); EOS % 0.2 %; EOS ABS # 0.03 K/uL (0-0.5); HEMATOCRIT 41.4 % (37-47); HEMOGLOBIN 13.3 g/dL (12.0-16.0); IG# 0.06 K/uL (0.00-0.02); LYMPH % 7.6 %; LYMPH ABS # 1.09 K/uL (1.2-3.4); MEAN CELL VOLUME 96.7 fL (80-100); MEAN CORPUSCULAR HEMOGLOBIN 31.1 pg (25-34); MEAN CORPUSCULAR HGB CONC 32.1 g/dl (32-36); MEAN PLATELET VOLUME 10.3 fL (7.4-10.4); MONO % 10.5 %; MONO ABS # 1.51 K/uL (0.11-0.59); NEUT % 81.2 %; NEUT ABS # 11.72 K/uL (1.4-6.5); PLATELET COUNT 146 K/uL (130-400); RED CELL DISTRIBUTION WIDTH CV 13.8 % (11.5-14.5); RED CELL DISTRIBUTION WIDTH SD 48.7 fL (36.4-46.3); WHITE BLOOD COUNT 14.42 K/uL (4.8-10.8)
[2017-09-16 12:38] LABS: ALBUMIN 3.3 gm/dl (3.4-5.0); CALCIUM 8.8 mg/dl (8.5-10.1); CREATININE 0.84 mg/dl (0.60-1.20); POTASSIUM 4.1 mmol/L (3.5-5.1); TOTAL PROTEIN 7.9 gm/dl (6.4-8.2)
[2017-09-16] MEDS ORDERED: CLON0.5T9 PO (12:42)
[2017-09-16] MEDS ORDERED: PERP4TAB37 PO (12:42)
[2017-09-16] MEDS ORDERED: CLB100 PO (12:42)
[2017-09-16] MEDS ORDERED: ZOLE5INJ IV (12:44)
[2017-09-16] MEDS ORDERED: MENA40TA PO (12:46)
[2017-09-16] MEDS ORDERED: CEFTRIAXONE SOD INJ 2,000 MG in DEXTROSE 5% 50ML 50 ML IV STA (12:58)
[2017-09-16] MEDS ORDERED: OPTIRAY 320 IV PRN (13:00)
--- NOTE | 2017-09-16 13:14 | DIAGNOSTIC IMAGING REPORT ---
HEAD WITHOUT CONTRAST (CT) CLINICAL HISTORY: 56 years-old Female with fall, hit head, eval trauma. Acute head injury status post trauma TECHNIQUE: Multiple axial CT images of the head were obtained without contrast. A dose lowering technique was utilized adhering to the principles of ALARA. CT DOSE: CT head 08/03/2017 COMPARISON: None. FINDINGS: No acute intracranial hemorrhage, midline shift, intracranial mass, hydrocephalus, territorial ischemia or abnormal extra-axial collection. Age-related involutional changes with ex vacuo ventriculomegaly. The calvarium is intact. The paranasal sinuses, mastoid air cells, and middle ear cavities are clear. IMPRESSION: No acute intracranial abnormality or calvarial fracture. The above report was generated using voice recognition software. It may contain grammatical, syntax or spelling errors. Electronically signed by: Jeanmarie Sharp M.D. 09/16/2017 1:13 PM Dictated Date/Time: 09/16/2017 1:11 PM
--- NOTE | 2017-09-16 13:24 | DIAGNOSTIC IMAGING REPORT ---
ABDOMEN AND PELVIS CT WITH IV CONTRAST HISTORY: Acute left-sided flank pain status post fall fall, left flank pain, eval trauma, pyelo TECHNIQUE: Multiaxial CT images of the abdomen and pelvis were performed following the use of intravenous contrast. A dose lowering technique was utilized adhering to the principles of ALARA. COMPARISON STUDY: CT abdomen and pelvis 08/16/2017 FINDINGS: Multifocal groundglass and consolidative opacities about the bilateral lung bases with bronchiectasis and cystic parenchymal changes. Respiratory motion limits evaluation of the lung bases. There is no pneumatosis or pneumoperitoneum identified. Imaged inferior cardiac chambers are enlarged. Partially imaged pacer leads. Contracted gallbladder with apparent wall thickening. Liver is unremarkable. No intrahepatic biliary ductal dilation. Spleen, pancreas and adrenal glands are unremarkable. Mild bilateral perinephric stranding. Urothelial enhancement is seen bilateral renal pelves and ureters. There is mild left-sided hydroureteronephrosis. Punctate nonobstructing calculi are seen about the superior pole left kidney. No ureteral calculi identified. There is marked trabeculation of the bladder with marked circumferential wall thickening and mild perivesicular stranding. Prior hysterectomy. Aorta and IVC are unremarkable. Moderate mixed plaquing of the aorta without aneurysm. No pathologically enlarged lymph nodes. Small sliding-type hiatal hernia. Fluid noted within the distal esophagus. No bowel obstruction or focal bowel wall thickening. Moderate formed stool throughout the colon. Appendix appears normal. Tiny fat filled The cardiac. Soft tissues are unremarkable. Orthopedic hardware about the bilateral proximal femora. Demineralized appearance of the bones. Multilevel facet arthropathy. Chronic posterior lateral left rib fractures. Postoperative changes from prior posterior interbody nina and screw fusion of the thoracic spine. Pseudoarthrosis at T11-T12. Remote appearing compression deformities. IMPRESSION: 1. Bilateral urothelial enhancement with mild left-sided hydroureteronephrosis. Additionally, there is marked wall thickening and trabeculation of the urinary bladder. Findings suggest cystitis with ascending ureteritis/pyelitis. 2. Punctate nonobstructing left-sided nephrolithiasis. 3. Normal appendix. 4. Bibasilar mixed alveolar and groundglass opacities with bronchiectasis redemonstrated. 5. Additional findings as above. Electronically signed by: Jeanmarie Sharp M.D. 09/16/2017 1:23 PM Dictated Date/Time: 09/16/2017 1:15 PM
--- NOTE | 2017-09-16 13:27 | DIAGNOSTIC IMAGING REPORT ---
CHEST ONE VIEW PORTABLE HISTORY: 56 years-old Female cough acute cough COMPARISON: Chest radiograph and CTA chest 08/27/2017 TECHNIQUE: Portable AP view of the chest FINDINGS: Cardiac silhouette is mildly enlarged. Chronic interstitial coarsening redemonstrated. Right internal jugular Wpapzq-m-Uvkb catheter appears unchanged. No pneumothorax, pleural effusion or overt pulmonary edema. Bones of the chest appear grossly intact. IMPRESSION: 1. Chronic bilateral interstitial opacities without acute process. 2. Cardiomegaly without overt pulmonary edema. The above report was generated using voice recognition software. It may contain grammatical, syntax or spelling errors. Electronically signed by: Jeanmarie Sharp M.D. 09/16/2017 1:26 PM Dictated Date/Time: 09/16/2017 1:24 PM
--- NOTE | 2017-09-16 14:46 | History and Physical ---
History & Physical Date & Time of Service: Sep 16, 2017 at 14:45 . Chief Complaint: weakness, fever, dysuria, back pain . Primary Care Physician: Naveed Adam III, M.D. . History of Present Illness Source: patient, clinic records, hospital records 56-year-old female followed by Dr. Adam. History of COPD and other problems noted below. Hospitalized a few weeks ago with orthostatic hypotension and bronchitis. A few days ago she noticed malaise and generalized weakness. 3 days prior to admission she noted some dysuria and bilateral flank pain. No definite gross hematuria. 2 days prior to admission she noted a fever. She was prescribed an antibiotic for suspected urinary tract infection, but has not yet had it filled. Experiencing progressive weakness and at least one fall. . Past Medical/Surgical History Chronic and Resolved Medical Problems: (2) Alcohol abuse, history of Permanent Comment: no recent use attends AA Status: Resolved (4) Cataract Status: Chronic (6) Chronic back pain Status: Chronic (7) Chronic hepatitis C Status: Chronic (8) Chronic obstructive lung disease Status: Chronic (9) Chronic paranoid schizophrenia Status: Chronic (10) Closed fracture of femur Permanent Comment: s/p ORIF Status: Resolved (12) COPD (chronic obstructive pulmonary disease) Status: Chronic (13) Deep venous thrombosis, history of Status: Chronic (14) Depression Status: Chronic (15) Drug abuse Permanent Comment: narcotic addiction due to chronic pain attends NA Status: Resolved (18) Gastroesophageal reflux disease Status: Chronic (19) Hepatitis C Status: Chronic (20) Hypoxia Status: Chronic (21) Hysterectomy Status: Resolved (22) Osteomyelitis Status: Resolved (23) Osteoporosis Status: Chronic (24) S/P ORIF (open reduction internal fixation) fracture Permanent Comment: femur Status: Chronic (25) Schizoaffective disorder Status: Chronic (26) Seizure Status: Resolved (31) Tobacco user Status: Chronic Surgical Problems: (1) H/O colonoscopy Status: Chronic (2) History of hysterectomy Status: Chronic (3) S/p thoracic spinal surgery Permanent Comment: 07/07/2015; [place] [facility] [place]: Chronic (4) S/P tonsillectomy Status: Chronic . Family History FH: lung cancer GRANDMOTHER Thyroid disorder MOTHER SISTER Social History Smoking Status: Former Smoker Alcohol Use: in past Drug Use: other Marital Status: single Housing status: lives with family Occupational Status: disabled Immunizations History of Influenza Vaccine: N/A History of Tetanus Vaccine?: utd Tetanus Immunization Date: Nov 22, 2006 History of Pneumococcal: Yes Pneumococcal Date: Dec 03, 2010 History of Hepatitis B Vaccine: Yes Hepatitis Immunization Date: Dec 03, 1997 Allergies Coded Allergies: Hydroxyzine (Verified Allergy, Unknown, UNKNOWN, 09/16/17) INFO FROM [facility] Hydrocodone (Verified Adverse Reaction, Severe, DROWSY, 09/16/17) Oxycodone (Verified Adverse Reaction, Severe, DROWSY, 09/16/17) Molindone (Verified Adverse Reaction, Intermediate, PT FEELS LIKE SHES "JUMPING OUT OF HER SKIN", 09/16/17) Morphine and Related (Verified Adverse Reaction, Intermediate, DROWSY, ) px was drowsy w/ pinpoint pupils and minimally responsive. stable VS. Following Morphine IR 15mg - 3 doses in prior 24 hours. Naloxone 0.4mg admin 3 times during that period. Fluphenazine (Verified Adverse Reaction, Unknown, confusion, 09/16/17) Haloperidol (Verified Adverse Reaction, Unknown, "MAKES ME GO INTO BLACKOUT", 09/16/17) [place] (Verified Adverse Reaction, Unknown, "LEVEL CAN GET TOO HIGH", ) Home Medications Scheduled Brexpiprazole (Rexulti), 2 MG PO QAM Bupropion (Wellbutrin Sr), 100 MG PO QAM Calcitonin Ary (Calcitonin-Ary), 1 SPRAY NA QPM Zxeuucy-Dvra-Ssuilhy D-Vitamin (Calcium Soft Chews [id number] mg-Unt-Mcg), 1 TAB PO BID Celecoxib (Celebrex), 1 CAP PO TID Clozapine (Clozapine), 100 MG PO TID Docusate Sodium (Docusate Sodium), 100 MG PO BID Escitalopram Oxalate (Escitalopram Oxalate), 1.5 TABS PO QAM Fenofibrate (Fenofibrate), 48 MG PO QAM Ferrous Sulfate (Ferrous Sulfate), 325 MG PO BIDM Fluticasone Furoate-Vilanterol (Breo Ellipta), 1 PUFF INH QAM Fluticasone Propionate (Nasal) (Flonase Allergy Relief), 2 SPRAYS JOSE QAM Folic Acid (Folic Acid), 1 MG PO DAILY Gabapentin (Gabapentin), 400 MG PO TID Menaquinone-7 (Vitamin K2), 40 MCG PO DAILY Midodrine (Midodrine HCl), 10 MG PO TID@08,12,17 Montelukast Sod (Montelukast Sodium), 10 MG PO HS Perphenazine (Trilafon), 2 MG PO BID Ranitidine HCl (Ranitidine HCl), 150 MG PO BID Sennosides-Docusate Sodium (Senna Plus), 2 TABS PO DAILY Tamsulosin HCl (Tamsulosin HCl), 0.4 MG PO HS Umeclidinium [place] (Incruse Ellipta), 1 PUFF INH QAM Zoledronic Acid (Reclast), 1 DOSE IV YEARLY Scheduled PRN Acetaminophen (Acetaminophen), 1,000 MG PO UD PRN for Pain Albuterol Hfa (Ventolin Hfa), 2 PUFFS INH Q6H PRN for SOB/Wheezing Azithromycin (Zithromax), 250 MG PO UD PRN for Rescue Kit Clonazepam (Klonopin), 0.5 TAB PO QID PRN for Anxiety Magnesium Hydroxide (Milk Of Magnesia), 30 ML PO DAILY PRN for Constipation Prednisone (Prednisone), 20 MG PO UD PRN for Rescue Kit Review of Systems CONSTITUTIONAL + fever no weight loss EYES + cataracts no acute visual changes EARS, NOSE, MOUTH, AND THROAT + sinus congestion no pharyngitis CARDIOVASCULAR no chest pain + chronic edema RESPIRATORY + occasional cough + chronic dyspnea on exertion GASTROINTESTINAL + nausea no vomiting no diarrhea no constipation no melena or hematochezia GENITOURINARY as noted above in HPI MUSCULOSKELETAL + chronic back pain INTEGUMENTARY no rash no new / changing lesions NEUROLOGIC no headaches no focal neurologic symptoms ENDOCRINE no polyuria or polydipsia HEMATOLOGIC / LYMPHATIC + easy bruising no adenopathy . Physical Exam Vital Signs Date Time Temp Pulse Resp B/P (MAP) Pulse Ox O2 Delivery O2 Flow Rate FiO2 09/16/17 13:19 103 16 128/92 98 Nasal Cannula 2.0 09/16/17 12:11 99 Nasal Cannula 2.0 09/16/17 11:22 110 09/16/17 11:19 37.2 108 22 120/74 97 Nasal Cannula 2.0 CONSTITUTIONAL vital signs as noted above well-developed, well-nourished, no acute distress EYES conjunctivae clear; lids normal pupils equal and reactive to light EARS, NOSE, MOUTH AND THROAT external inspection of ears and nose unremarkable hearing grossly intact to spoken voice edentulous oropharynx clear NECK no masses; trachea midline thyroid normal RESPIRATORY normal respiratory effort; no respiratory distress diffuse mild wheezing clear to percussion CARDIOVASCULAR regular rate and rhythm no murmur, gallop, or rub appreciated carotid arteries 2/2; no bruits appreciated abdominal aorta not palpable pedal pulses intact and symmetric no pretibial edema GASTROINTESTINAL normal bowel sounds, soft, nontender; no palpable masses no hepatomegaly; no splenomegaly LYMPHATIC no cervical adenopathy MUSCULOSKELETAL no cyanosis; no digital clubbing no calf tenderness motor strength extremities grossly intact SKIN no rash warm and dry NEUROLOGIC PERRL, EOMI, no facial palsy, no dysarthria, tongue midline patellar DTR's 1/2 PSYCHIATRIC oriented to person, place, time mood and affect appropriate . Diagnostics Laboratory Results Results Past 24 Hours Test 09/16/17 12:03 09/16/17 12:12 09/16/17 12:18 Range/Units White Blood Count 14.42 4.8-10.8 K/uL Red Blood Count 4.28 4.2-5.4 M/uL Hemoglobin 13.3 12.0-16.0 g/dL Hematocrit 41.4 37-47 % Mean Corpuscular Volume 96.7 80-100 fL Mean Corpuscular Hemoglobin 31.1 25-34 pg Mean Corpuscular Hemoglobin Concent 32.1 32-36 g/dl Platelet Count 146 130-400 K/uL Mean Platelet Volume 10.3 7.4-10.4 fL Neutrophils (%) (Auto) 81.2 % Lymphocytes (%) (Auto) 7.6 % Monocytes (%) (Auto) 10.5 % Eosinophils (%) (Auto) 0.2 % Basophils (%) (Auto) 0.1 % Neutrophils # (Auto) 11.72 1.4-6.5 K/uL Lymphocytes # (Auto) 1.09 1.2-3.4 K/uL Monocytes # (Auto) 1.51 0.11-0.59 K/uL Eosinophils # (Auto) 0.03 0-0.5 K/uL Basophils # (Auto) 0.01 0-0.2 K/uL RDW Standard Deviation 48.7 36.4-46.3 fL RDW Coefficient of Variation 13.8 11.5-14.5 % Immature Granulocyte % (Auto) 0.4 % Immature Granulocyte # (Auto) 0.06 0.00-0.02 K/uL Sodium Level 141 136-145 mmol/L Potassium Level 4.1 3.5-5.1 mmol/L Chloride Level 108 98-107 mmol/L Carbon Dioxide Level 27 21-32 mmol/L Anion Gap 6.0 3-11 mmol/L Blood Urea Nitrogen 15 7-18 mg/dl Creatinine 0.84 0.60-1.20 mg/dl Est Creatinine Clear Calc Drug Dose 83.4 ml/min Estimated GFR () 89.4 Estimated GFR (Non- 77.2 BUN/Creatinine Ratio 17.5 10-20 Random Glucose 80 70-99 mg/dl Calcium Level 8.8 8.5-10.1 mg/dl Total Bilirubin 0.5 0.2-1 mg/dl Aspartate Amino Transf (AST/SGOT) 19 15-37 U/L Alanine Aminotransferase (ALT/SGPT) 24 12-78 U/L Alkaline Phosphatase 61 45-117 U/L Total Protein 7.9 6.4-8.2 gm/dl Albumin 3.3 3.4-5.0 gm/dl Globulin 4.6 2.5-4.0 gm/dl Albumin/Globulin Ratio 0.7 0.9-2 Bedside Lactic Acid Venous 0.72 0.90-1.70 mmol/L Urine Color YELLOW Urine Appearance CLOUDY CLEAR Urine pH 8.0 4.5-7.5 Urine Specific [place] 1.011 1.000-1.030 Urine Protein NEG NEG Urine Glucose (UA) NEG NEG Urine Ketones NEG NEG Urine Occult Blood TRACE NEG Urine Nitrite NEG NEG Urine Bilirubin NEG NEG Urine Urobilinogen NEG NEG Urine Leukocyte Esterase LARGE NEG Urine WBC (Auto) >30 0-5 /hpf Urine RBC (Auto) 5-10 0-4 /hpf Urine Hyaline Casts (Auto) 1-5 0-5 /lpf Urine Epithelial Cells (Auto) 0-5 0-5 /lpf Urine Bacteria (Auto) 4+ NEG Microbiology Results 09/16/17 Blood Culture, Received Pending 09/16/17 Blood Culture, Received Pending 09/16/17 Urine Culture, Received Pending Diagnostic Radiology CHEST ONE VIEW PORTABLE FINDINGS: Cardiac silhouette is mildly enlarged. Chronic interstitial coarsening redemonstrated. Right internal jugular [id number] catheter appears unchanged. No pneumothorax, pleural effusion or overt pulmonary edema. Bones of the chest appear grossly intact. IMPRESSION: 1. Chronic bilateral interstitial opacities without acute process. 2. Cardiomegaly without overt pulmonary edema. The above report was generated using voice recognition software. It may contain grammatical, syntax or spelling errors. Electronically signed by: Jeanmarie Sharp M.D. 09/16/2017 1:26 PM Dictated Date/Time: 09/16/2017 1:24 PM HEAD WITHOUT CONTRAST (CT) FINDINGS: No acute intracranial hemorrhage, midline shift, intracranial mass, hydrocephalus, territorial ischemia or abnormal extra-axial collection. Age-related involutional changes with ex vacuo ventriculomegaly. The calvarium is intact. The paranasal sinuses, mastoid air cells, and middle ear cavities are clear. IMPRESSION: No acute intracranial abnormality or calvarial fracture. The above report was generated using voice recognition software. It may contain grammatical, syntax or spelling errors. Electronically signed by: Jeanmarie Sharp M.D. 09/16/2017 1:13 PM Dictated Date/Time: 09/16/2017 1:11 PM A[address]OMEN AND PELVIS CT WITH IV CONTRAST FINDINGS: Multifocal groundglass and consolidative opacities about the bilateral lung bases with bronchiectasis and cystic parenchymal changes. Respiratory motion limits evaluation of the lung bases. There is no pneumatosis or pneumoperitoneum identified. Imaged inferior cardiac chambers are enlarged. Partially imaged pacer leads. Contracted gallbladder with apparent wall thickening. Liver is unremarkable. No intrahepatic biliary ductal dilation. Spleen, pancreas and adrenal glands are unremarkable. Mild bilateral perinephric stranding. Urothelial enhancement is seen bilateral renal pelves and ureters. There is mild left-sided hydroureteronephrosis. Punctate nonobstructing calculi are seen about the superior pole left kidney. No ureteral calculi identified. There is marked trabeculation of the bladder with marked circumferential wall thickening and mild perivesicular stranding. Prior hysterectomy. Aorta and IVC are unremarkable. Moderate mixed plaquing of the aorta without aneurysm. No pathologically enlarged lymph nodes. Small sliding-type hiatal hernia. Fluid noted within the distal esophagus. No bowel obstruction or focal bowel wall thickening. Moderate formed stool throughout the colon. Appendix appears normal. Tiny fat filled The cardiac. Soft tissues are unremarkable. Orthopedic hardware about the bilateral proximal femora. Demineralized appearance of the bones. Multilevel facet arthropathy. Chronic posterior lateral left rib fractures. Postoperative changes from prior posterior interbody nina and screw fusion of the thoracic spine. Pseudoarthrosis at T11-T12. Remote appearing compression deformities. IMPRESSION: 1. Bilateral urothelial enhancement with mild left-sided hydroureteronephrosis. Additionally, there is marked wall thickening and trabeculation of the urinary bladder. Findings suggest cystitis with ascending ureteritis/pyelitis. 2. Punctate nonobstructing left-sided nephrolithiasis. 3. Normal appendix. 4. Bibasilar mixed alveolar and groundglass opacities with bronchiectasis redemonstrated. 5. Additional findings as above. Electronically signed by: Jeanmarie Sharp M.D. 09/16/2017 1:23 PM Dictated Date/Time: 09/16/2017 1:15 PM . EKG EKG performed at 1120 reviewed and demonstrated sinus tachycardia at 110/minute , inverted T waves lead III, T-wave flattening in lateral precordial leads, no acute ST changes. . Impression Assessment and Plan UTI Patient presents with fever, malaise, dysuria, flank pain. UA demonstrates large amount of leukocyte esterase, many WBCs, 5-10 RBCs, many bacteria. CT as noted above demonstrates perinephric stranding consistent with pyelonephritis, mild left hydronephrosis, nonobstructing renal calculi. Blood and urine cultures obtained in the ED. Patient received IV antibiotic therapy with ceftriaxone which be continued pending culture results. Has been seen by Urology in the past; need to review prior urologic history. CHRONIC ORTHOSTATIC HYPOTENSION Attributed to medications. Recent ACTH-stim test normal. Continue midodrine. COPD Respiratory status stable. Continue usual inhalers. CHRONIC HYPOXIC RESPIRATORY FAILURE Secondary to COPD. On home O2 2-3 LPM. Continue O2. HEPATITIS C SCHIZOPHRENIA Continue usual meds. FALLS PT / OT evals. VTE PROPHYLAXIS SQ heparin. Ambulate. DISPOSITION Expected discharge to home. Family Medicine follow-up with Dr. Adam. . Resuscitation Status VTE Prophylaxis Will order VTE Prophylaxis: Yes
[2017-09-16 15:00] VITALS: O2SAT 100; Ht 165.1 cm; Wt 93.3 kg
[2017-09-16 16:15] VITALS: BP 109/67; PULSE 101; TEMP 36.9; O2SAT 98
[2017-09-16] MEDS: ACETAMINOPHEN 325 MG TAB PO PRN ×2 (16:39→22:29)
[2017-09-16] MEDS: CLONAZEPAM 0.5 MG TAB PO PRN ×2 (19:25→22:29)
[2017-09-16] MEDS: CALCITONIN SALMON NA 200 IU/AC 3.7 ML BTL SCH (20:52)
[2017-09-16] MEDS: DOCUSATE SODIUM 100 MG CAP PO SCH (20:54)
[2017-09-16] MEDS: CeleBREX 100 MG CAP PO SCH (20:54)
[2017-09-16] MEDS: GABAPENTIN 400 MG CAP PO SCH (20:55)
[2017-09-16] MEDS: MONTELUKAST SOD 10 MG TAB PO SCH (20:55)
[2017-09-16] MEDS: PERPHENAZINE 2 MG TAB PO SCH (20:56)
[2017-09-16] MEDS: RANITIDINE HCL 150 MG TAB PO SCH (20:56)
[2017-09-16] MEDS: CLOZAPINE 100 MG TAB PO SCH (20:57)
[2017-09-16] MEDS ORDERED: TAMSULOSIN HCL 0.4 MG CAP PO SCH (21:00)
[2017-09-16 23:15] VITALS: BP 82/56; PULSE 88; TEMP 37; O2SAT 93
[2017-09-17 00:25] VITALS: BP 91/64; PULSE 83
[2017-09-17 06:25] LABS: HEMATOCRIT 40.3 % (37-47); HEMOGLOBIN 12.7 g/dL (12.0-16.0); MEAN CELL VOLUME 98.3 fL (80-100); MEAN CORPUSCULAR HGB CONC 31.5 g/dl (32-36); MEAN PLATELET VOLUME 10.4 fL (7.4-10.4); PLATELET COUNT 156 K/uL (130-400); RED CELL DISTRIBUTION WIDTH CV 13.9 % (11.5-14.5); RED CELL DISTRIBUTION WIDTH SD 50.1 fL (36.4-46.3); WHITE BLOOD COUNT 9.97 K/uL (4.8-10.8)
[2017-09-17 06:39] LABS: PTT PATIENT 27.8 SECONDS (21.0-31.0)
[2017-09-17] MEDS ORDERED: SODIUM CHLORIDE 0.9% 500ML 500 ML IV SCH (06:45)
[2017-09-17 07:01] LABS: CALCIUM 8.6 mg/dl (8.5-10.1); CREATININE 0.73 mg/dl (0.60-1.20); POTASSIUM 3.8 mmol/L (3.5-5.1)
[2017-09-17 07:51] VITALS: BP 93/69; PULSE 69; TEMP 36.4; O2SAT 93
[2017-09-17] MEDS: CLOZAPINE 100 MG TAB PO SCH ×3 (07:55→21:17)
[2017-09-17] MEDS: FLUTICASONE PROPIONATE NA SPR 16 GM BTL NAE SCH (07:55)
[2017-09-17] MEDS: MIDODRINE 10 MG TAB PO SCH ×3 (07:55→17:01)
[2017-09-17] MEDS: PERPHENAZINE 2 MG TAB PO SCH (07:55)
[2017-09-17] MEDS: CeleBREX 100 MG CAP PO SCH ×2 (07:55→13:27)
[2017-09-17] MEDS: RANITIDINE HCL 150 MG TAB PO SCH ×2 (07:55→21:18)
[2017-09-17] MEDS: BuPROPion SR 100 MG TABCR PO SCH (07:55)
[2017-09-17] MEDS: FENOFIBRATE 48 MG TAB PO SCH (07:55)
[2017-09-17] MEDS: ESCITALOPRAM OXALATE 10 MG TAB PO SCH (07:55)
[2017-09-17] MEDS: DOCUSATE SODIUM/SENNA 50/8.6MG TAB PO SCH (07:55)
[2017-09-17] MEDS: DOCUSATE SODIUM 100 MG CAP PO SCH ×2 (07:55→21:17)
[2017-09-17] MEDS: GABAPENTIN 400 MG CAP PO SCH ×3 (07:55→21:18)
[2017-09-17] MEDS: ENOXAPARIN 40 MG/0.4 ML SYR SQ SCH (09:28)
[2017-09-17 09:34] VITALS: BP 101/72; PULSE 82
[2017-09-17] MEDS: ACETAMINOPHEN 325 MG TAB PO PRN ×3 (10:35→21:56)
[2017-09-17] MEDS: CLONAZEPAM 0.5 MG TAB PO PRN ×3 (10:35→21:56)
--- NOTE | 2017-09-17 11:01 | Clinical Documentation Query ---
ROMAN Eng : CLINICAL DOCUMENTATION QUERY Patient a 56 year old female with history of oxygen dependent COPD per ED documentation. If appropriate, consider documentation as suggested below in order to capture the SOI and ROM associated with this clinical diagnosis. Thank you. In your clinical opinion is this patient being managed for: ( x ) Chronic respiratory failure with hypoxia ( ) Not Agree ( ) Other explanation of clinical findings (No explanation is considered a No Response) ( ) Unable to determine ( ) Need to Discuss (Phone CDS or qliq) (No discussion is considered a No Response) The medical record reflects the following clinical findings, treatment, and risk factors. Clinical Indicators: As above Treatment: Ongoing provision of supplemental O2 Risk Factors: COPD, smoking history. Please clarify and document your clinical opinion in the progress notes and discharge summary. Terms such as "probable", "suspected", "likely", "questionable", "possible", or "still to be ruled out" are acceptable. IF IN AGREEMENT, YOU MUST DOCUMENT ABOVE DIAGNOSTIC STATEMENT IN DAILY PROGRESS NOTES AND DISCHARGE SUMMARY. This document is not part of the patient's record. Thank You, Umer Toro, RN [phone]
[2017-09-17] MEDS: CEFTRIAXONE SOD INJ 2,000 MG in DEXTROSE 5% 50ML 50 ML IV SCH (13:36)
[2017-09-17 15:37] VITALS: BP 99/68; PULSE 78; TEMP 36.6; O2SAT 100
[2017-09-17] MEDS ORDERED: MAGNESIUM HYDROXIDE SUSP 30 ML UDC PO PRN (17:00)
[2017-09-17] MEDS ORDERED: CeleBREX 100 MG CAP PO SCH (18:00)
[2017-09-17] MEDS: BACLOFEN 10 MG TAB PO PRN (18:07)
[2017-09-17] MEDS: ALBUTEROL HFA 8 GM INHALER INH PRN (18:29)
--- NOTE | 2017-09-17 20:51 | Progress Note ---
Medicine Progress Note Date & Time of Visit: Sep 17, 2017 at 16:35 . Subjective CC: Follow-up visit for pyelonephritis. HPI: Feels better. No fever. Mild left flank pain. Dysuria improved. No hematuria. ROS: General- no fever, no chills Resp- no cough; no shortness of breath Cardiac- no chest pain, no edema GI- no nausea, no vomiting, no diarrhea, no constipation - as noted above in HPI . Objective Last 8 Hrs Date Time Temp Pulse Resp B/P (MAP) Pulse Ox O2 Delivery O2 Flow Rate FiO2 09/17/17 16:30 Nasal Cannula 2.0 09/17/17 15:37 36.6 78 20 99/68 (78) 100 Physical Exam: General- lying in bed; no distress Lungs- diffuse mild wheezing; no respiratory distress Cardiovascular- RRR; no murmur or gallop appreciated; no JVD; no pretibial edema Abdomen- + bowel sounds, soft, nontender Extremities- no cyanosis; no calf tenderness Neuro- alert, oriented Skin- warm & dry . Laboratory Results: Last 24 Hours Test 09/17/17 06:01 White Blood Count 9.97 K/uL Red Blood Count 4.10 M/uL Hemoglobin 12.7 g/dL Hematocrit 40.3 % Mean Corpuscular Volume 98.3 fL Mean Corpuscular Hemoglobin 31.0 pg Mean Corpuscular Hemoglobin Concent 31.5 g/dl RDW Standard Deviation 50.1 fL RDW Coefficient of Variation 13.9 % Platelet Count 156 K/uL Mean Platelet Volume 10.4 fL Prothrombin Time 10.6 SECONDS Prothromb Time International Ratio 1.0 Activated Partial Thromboplast Time 27.8 SECONDS Partial Thromboplastin Ratio 1.1 Sodium Level 143 mmol/L Potassium Level 3.8 mmol/L Chloride Level 110 mmol/L Carbon Dioxide Level 27 mmol/L Anion Gap 6.0 mmol/L Blood Urea Nitrogen 16 mg/dl Creatinine 0.73 mg/dl Est Creatinine Clear Calc Drug Dose 96.0 ml/min Estimated GFR () 106.0 Estimated GFR (Non- 91.4 BUN/Creatinine Ratio 22.2 Random Glucose 96 mg/dl Calcium Level 8.6 mg/dl Assessment & Plan UTI (present on admission) Patient presents with fever, malaise, dysuria, flank pain. UA demonstrates large amount of leukocyte esterase, many WBCs, 5-10 RBCs, many bacteria. CT as noted above demonstrates perinephric stranding consistent with pyelonephritis, mild left hydronephrosis, nonobstructing renal calculi. Blood and urine cultures obtained in the ED. Patient received IV antibiotic therapy with ceftriaxone which will be continued pending culture results. Has been seen by Urology (Dr. Argueta) in the past. Renal US in 2017 did not show any hydronephrosis; left hydronephrosis on current CT appears to be new. Consult Urology. CHRONIC ORTHOSTATIC HYPOTENSION Attributed to medications. Recent ACTH-stim test normal. Continue midodrine. COPD Respiratory status stable. Continue usual inhalers. CHRONIC HYPOXIC RESPIRATORY FAILURE Secondary to COPD. On home O2 2-3 LPM. Continue O2. HEPATITIS C SCHIZOPHRENIA Continue usual meds. FALLS PT / OT evals. VTE PROPHYLAXIS SQ enoxaparin. Ambulate. DISPOSITION Expected discharge to home. Family Medicine follow-up with Dr. Adam. . Current Inpatient Medications: Current Inpatient Medications Medications (Trade) Dose Ordered Sig/Janel Route Start Time Stop Time Status Last Admin Dose Admin Ioversol (Optiray 320) 100 ml UD PRN IV 09/16/17 13:00 09/20/17 12:59 Acetaminophen (Tylenol Tab) 650 mg Q4H PRN PO 09/16/17 15:00 10/16/17 14:59 09/17/17 15:35 650 MG Albuterol (Ventolin Hfa Inhaler) 2 puffs Q6H PRN INH 09/16/17 17:30 10/16/17 17:29 09/17/17 18:29 2 PUFFS Bupropion HCl (Wellbutrin-Sr Tab) 100 mg QAM PO 09/17/17 09:00 10/17/17 08:59 09/17/17 07:55 100 MG Calcitonin [place] (Fortical Nasal [place]) 1 spray QPM NA 09/16/17 21:00 10/16/17 20:59 09/16/17 20:52 1 SPRAY Clonazepam (Klonopin Tab) 0.25 mg QID PRN PO 09/16/17 17:30 10/16/17 17:29 09/17/17 15:35 0.25 MG Clozapine (Clozaril Tab) 100 mg TID PO 09/16/17 21:00 10/16/17 20:59 09/17/17 13:27 100 MG Docusate Sodium (coLACE CAP) 100 mg BID PO 09/16/17 21:00 10/16/17 20:59 09/17/17 07:55 100 MG Escitalopram Oxalate (Lexapro Tab) 30 mg QAM PO 09/17/17 09:00 10/17/17 08:59 09/17/17 07:55 30 MG Fenofibrate (Tricor Tab) 48 mg QAM PO 09/17/17 09:00 10/17/17 08:59 09/17/17 07:55 48 MG Fluticasone Propionate (Flonase Nasal [place]) 2 sprays QAM JOSE 09/17/17 09:00 10/17/17 08:59 09/17/17 07:55 2 SPRAYS Folic Acid (Folvite Tab) 1 mg DAILY PO 09/17/17 09:00 10/17/17 08:59 09/17/17 07:55 1 MG Gabapentin (Neurontin Cap) 400 mg TID PO 09/16/17 21:00 10/16/17 20:59 09/17/17 13:27 400 MG Midodrine (Proamatine Tab) 10 mg TID@08,12,17 PO 09/17/17 08:00 10/17/17 07:59 09/17/17 17:01 10 MG Montelukast Sodium (Singulair Tab) 10 mg HS PO 09/16/17 21:00 10/16/17 20:59 09/16/17 20:55 10 MG Ranitidine HCl (zANTac TAB) 150 mg BID PO 09/16/17 21:00 10/16/17 20:59 09/17/17 07:55 150 MG Senna/Docusate Sodium (Senokot S Tab) 2 tab DAILY PO 09/17/17 09:00 10/17/17 08:59 09/17/17 07:55 2 TAB Miscellaneous Information (Order Awaiting Action) 1 ea QS N/A 09/17/17 00:00 10/17/17 00:00 Ceftriaxone Sodium 2000 mg/ Dextrose 70 ml @ 100 mls/hr DAILY@1400 IV 09/17/17 14:00 09/27/17 13:59 09/17/17 13:36 100 MLS/HR Heparin Sodium (Porcine) (Heparin 100 Unit/ml 5ml Flush) 5 ml PRN PRN IV 09/16/17 19:15 10/16/17 19:14 09/17/17 06:01 5 ML Enoxaparin Sodium (Lovenox Inj) 40 mg QAM SQ 09/17/17 09:00 10/17/17 08:59 09/17/17 09:28 40 MG Magnesium Hydroxide (Milk Of Magnesia Susp) 30 ml DAILY PRN PO 09/17/17 17:00 10/17/17 16:59 Celecoxib (CeleBREX CAP) 100 mg TIDM PO 09/17/17 18:00 10/16/17 17:59 09/17/17 18:05 100 MG Baclofen (Lioresal Tab) 10 mg Q8H PRN PO 09/17/17 17:00 10/17/17 16:59 09/17/17 18:07 10 MG Non-Formulary Medication (Non-Formulary Patient'S Own Med) 1 ea DAILY PO 09/18/17 09:00 10/18/17 08:59 Fluticasone/ Vilanterol (Breo Ellipta 100-25 Mcg/Inh) 1 puffs DAILY INH 09/18/17 09:00 10/18/17 08:59
[2017-09-17] MEDS: CALCITONIN SALMON NA 200 IU/AC 3.7 ML BTL SCH (21:17)
[2017-09-17] MEDS: MONTELUKAST SOD 10 MG TAB PO SCH (21:18)
[2017-09-18] VITALS: BP 96/61; PULSE 74; TEMP 36.6; O2SAT 96
[2017-09-18] MEDS: ACETAMINOPHEN 325 MG TAB PO PRN ×3 (03:11→18:28)
[2017-09-18] MEDS: BACLOFEN 10 MG TAB PO PRN (05:45)
[2017-09-18 05:50] LABS: HEMATOCRIT 38.3 % (37-47); HEMOGLOBIN 12.3 g/dL (12.0-16.0); MEAN CORPUSCULAR HEMOGLOBIN 31.5 pg (25-34); MEAN CORPUSCULAR HGB CONC 32.1 g/dl (32-36); MEAN PLATELET VOLUME 9.8 fL (7.4-10.4); PLATELET COUNT 155 K/uL (130-400); RED CELL DISTRIBUTION WIDTH CV 13.6 % (11.5-14.5); RED CELL DISTRIBUTION WIDTH SD 48.6 fL (36.4-46.3)
[2017-09-18 06:17] LABS: CALCIUM 8.5 mg/dl (8.5-10.1); CREATININE 0.79 mg/dl (0.60-1.20); POTASSIUM 4.3 mmol/L (3.5-5.1)
[2017-09-18] MEDS: ESCITALOPRAM OXALATE 10 MG TAB PO SCH (07:38)
[2017-09-18] MEDS: MIDODRINE 10 MG TAB PO SCH ×3 (07:38→17:18)
[2017-09-18] MEDS: DOCUSATE SODIUM 100 MG CAP PO SCH ×2 (07:38→22:31)
[2017-09-18] MEDS: DOCUSATE SODIUM/SENNA 50/8.6MG TAB PO SCH (07:38)
[2017-09-18] MEDS: RANITIDINE HCL 150 MG TAB PO SCH ×2 (07:38→22:31)
[2017-09-18] MEDS: GABAPENTIN 400 MG CAP PO SCH ×3 (07:38→22:31)
[2017-09-18] MEDS: BuPROPion SR 100 MG TABCR PO SCH (07:38)
[2017-09-18] MEDS: FLUTICASONE PROPIONATE NA SPR 16 GM BTL NAE SCH (07:39)
[2017-09-18] MEDS: BREXPIPRAZOLE 2 MG PO SCH (07:39)
[2017-09-18] MEDS: FLUTICASONE FUROATE-VILANTEROL 60 PUFFS INH INH SCH (07:39)
[2017-09-18] MEDS: UMECLIDINIUM BROMIDE 62.5MCG/INH INH SCH (07:39)
[2017-09-18] MEDS: CLOZAPINE 100 MG TAB PO SCH ×3 (07:40→22:31)
[2017-09-18] MEDS: FENOFIBRATE 48 MG TAB PO SCH (07:40)
[2017-09-18] MEDS: ENOXAPARIN 40 MG/0.4 ML SYR SQ SCH (07:41)
[2017-09-18 07:43] VITALS: BP 119/82; PULSE 90; TEMP 36.8; O2SAT 98
--- NOTE | 2017-09-18 10:25 | Urology Consultation ---
History General Date of Service: Sep 18, 2017. Chief Complaint: UTI Primary Care Physician: Naveed Adam III, M.D. Pt seen a urologist before?: Yes If yes, why?: Established with Dr. Argueta: urinary retention, neurogenic bladder History of Present Illness 56 year old female, poor historian, with UTI. Established patient of Dr. Argueta, known chronic urinary retention, takes Tamsulosin daily. Patient reports dysuria beginning sometime last week and contacting her PCP office for urine sample. She reports that she never started her antibiotics and then came to the hospital after falling. Does not know if she has experienced gross hematuria with this infection. Denies abdominal, flank pain/nausea this morning. Denies dysuria. Denies fever/chills. UC&S prelim positive, smith sensitive. Creatinine remains stable at 0.79. Imaging Imaging: CT Images were done at: [facility] Laboratory Labs were reviewed and are within normal limits unless listed below. Labs are available in the chart and at [facility] Problem List Medical Problems: (1) Accidental overdose Status: Acute (2) Anemia Status: Acute (3) Anxiety Status: Acute (4) Back pain Status: Acute (5) Bilateral leg pain Status: Acute (6) Bilateral pneumonia Status: Acute (7) Chest wall pain Status: Acute (8) Chronic pain Status: Acute (9) Closed stable burst fracture of T8 vertebra Status: Acute (10) Closed T12 fracture Status: Acute (11) Constipation Status: Acute (12) Contusion of head Status: Acute (13) COPD exacerbation Status: Acute (14) Degenerative disc disease, lumbar Status: Acute (15) Delusions Status: Acute (16) Depression with suicidal ideation Status: Acute (17) Diarrhea Status: Acute (18) Diffuse abdominal pain Status: Acute (19) Discitis Status: Acute (20) Discitis thoracic region Status: Acute (21) Fall Status: Acute (22) Generalized weakness Status: Acute (23) Head injury Status: Acute (24) Interstitial lung disease Status: Acute (25) Leg pain, right Status: Acute (26) Leukocytosis Status: Acute (27) Low back pain Status: Acute (28) Lower back pain Status: Acute (29) Lower extremity pain Status: Acute (30) Mood disorder Status: Acute (31) Mood disorder Status: Acute (32) Obesity Status: Acute (33) Osteomyelitis () of jaw (suppurative) Status: Acute (34) Osteomyelitis of spine Status: Acute (35) Panic attack Status: Acute (36) Polypharmacy Status: Acute (37) Post-op pain Status: Acute (38) Precordial chest pain Status: Acute (39) Pyelonephritis Status: Acute (40) Right hip pain Status: Acute (41) Right leg pain Status: Acute (42) Right low back pain Status: Acute (43) Sepsis Status: Acute (44) Shortness of breath Status: Acute (45) Suicidal ideations Status: Acute (46) Swelling of right extremity Status: Acute (47) Swelling of right extremity Status: Acute (48) Thoracic back pain Status: Acute (49) Traumatic compression fracture of T8 thoracic vertebra Status: Acute (50) UTI (urinary tract infection) Status: Acute (51) Weakness Status: Acute (52) Weakness Status: Acute (53) Wound dehiscence Status: Acute Social History Problems: (1) History of back surgery Status: Acute Past History COPD Family History FH: lung cancer GRANDMOTHER Thyroid disorder MOTHER SISTER Social History Hx Tobacco Use In Past Year?: No Smoking: less than 1 pack/day, other Alcohol: history of alcohol abuse Drug use: other Marital status: single Housing status: lives with family Occupation status: disabled Immunizations History of Influenza Vaccine: N/A History of Tetanus Vaccine?: utd Tetanus Immunization Date: Nov 22, 2006 History of Pneumococcal: Yes Pneumococcal Date: Dec 03, 2010 History of Hepatitis B Vaccine: Yes Hepatitis Immunization Date: Dec 03, 1997 History of MDRO No Allergies Coded Allergies: Hydroxyzine (Verified Allergy, Unknown, UNKNOWN, 09/16/17) INFO FROM [facility] Fluphenazine (Verified Adverse Reaction, Intermediate, confusion, 09/17/17) Haloperidol (Verified Adverse Reaction, Intermediate, "MAKES ME GO INTO BLACKOUT", 09/17/17) Hydrocodone (Verified Adverse Reaction, Intermediate, DROWSY, 09/17/17) Molindone (Verified Adverse Reaction, Intermediate, PT FEELS LIKE SHES "JUMPING OUT OF HER SKIN", 09/16/17) Morphine and Related (Verified Adverse Reaction, Intermediate, DROWSY, ) px was drowsy w/ pinpoint pupils and minimally responsive. stable VS. Following Morphine IR 15mg - 3 doses in prior 24 hours. Naloxone 0.4mg admin 3 times during that period. Oxycodone (Verified Adverse Reaction, Intermediate, DROWSY, 09/17/17) [place] (Verified Adverse Reaction, Mild, "LEVEL CAN GET TOO HIGH", ) Medications Home Medications: Home Meds and Scripts Medications Dose Route/Sig Max Daily Dose Days Date Category Dose Instructions Vitamin K2 (Menaquinone-7) 40 Mcg Tab 40 Mcg PO DAILY 09/16/17 Reported Reclast (Zoledronic Acid) 5 Mg/100 Ml Inj 1 Dose IV YEARLY 09/16/17 Reported Klonopin (Clonazepam) 0.5 Mg Tab 0.5 Tab PO QID PRN 09/16/17 Reported Calcium Soft Chews [id number] mg-Unt-Mcg (Dzslvvk-Xlea-Mnjdzkb D-Vitamin) 1 Chw Chw 1 Tab PO BID 08/27/17 Reported Midodrine HCl (Midodrine) 10 Mg Tab 10 Mg PO TID@08,12,17 30 08/22/17 Rx Milk Of Magnesia (Magnesium Hydroxide) 30 Ml Susp 30 Ml PO DAILY PRN 08/03/17 Reported Zithromax (Azithromycin) 250 Mg Tab 250 Mg PO UD PRN 08/03/17 Reported RESCUE KIT FOLLOWS: TAKE 2 TABLETS FIRST DAY THEN ONE TABLET DAILY FOR 4 DAYS Gabapentin 400 Mg Cap 400 Mg PO TID 08/03/17 Reported Acetaminophen 500 Mg Tab 1,000 Mg PO UD PRN 08/03/17 Reported MAXIMUM 2 GM APAP DAY Prednisone 20 Mg Tab 20 Mg PO UD PRN 04/25/17 Reported RESCUE KIT FOLLOWS: TAKE 2 TABLETS (40 MG) DAILY FOR 5 DAYS THEN ONE TABLET (20 MG) DAILY FOR 5 DAYS Folic Acid 1 Mg Tab 1 Mg PO DAILY 04/25/17 Reported Docusate Sodium 100 Mg Cap 100 Mg PO BID 04/25/17 Reported Montelukast Sodium (Montelukast Sod) 10 Mg Tab 10 Mg PO HS 04/25/17 Reported Rexulti (Brexpiprazole) 2 Mg Tab 2 Mg PO QAM 04/25/17 Reported Tamsulosin HCl 0.4 Mg Cap 0.4 Mg PO HS 04/25/17 Reported Clozapine 100 Mg Tab 100 Mg PO TID 04/25/17 Reported Senna Plus (Sennosides-Docusate Sodium) 1 Tab Tab 2 Tabs PO DAILY 01/10/17 Reported Wellbutrin Sr (Bupropion HCl) 100 Mg Ertab 100 Mg PO QAM 11/26/16 Reported TAKE THIS MEDICATION WITH FOOD Ranitidine HCl 150 Mg Tab 150 Mg PO BID 10/13/16 Reported Flonase Allergy Relief (Fluticasone Propionate (Nasal)) 50 Mcg/Act Spr 2 Sprays JOSE QAM 09/12/16 Reported Ventolin Hfa (Albuterol) 200 Puffs/19085 Mcg Aers 2 Puffs INH Q6H PRN 08/31/16 Reported Calcitonin-[place] (Calcitonin [place]) 30 [place]/3.7 Ml Soln 1 Carson NA QPM 07/28/16 Reported ONCE DAILY. ALTERNATE NOSTRILS. Breo Ellipta (Fluticasone Furoate-Vilanterol) 1 Inh Inh 1 Puff INH QAM 06/26/16 Reported RINSE MOUTH AFTER USE Incruse Ellipta (Umeclidinium [place]) 62.5 Mcg/Inh Inh 1 Puff INH QAM 06/26/16 Reported Fenofibrate 48 Mg Tab 48 Mg PO QAM 12/19/14 Reported Escitalopram Oxalate 20 Mg Tab 1.5 Tabs PO QAM 12/19/14 Reported Ferrous Sulfate 325 Mg Tab 325 Mg PO BIDM 10/11/13 Reported Inpatient Medications: Current Inpatient Medications Medications (Trade) Dose Ordered Sig/Janel Route Start Time Stop Time Status Last Admin Dose Admin Ioversol (Optiray 320) 100 ml UD PRN IV 09/16/17 13:00 09/20/17 12:59 Acetaminophen (Tylenol Tab) 650 mg Q4H PRN PO 09/16/17 15:00 10/16/17 14:59 09/18/17 03:11 650 MG Albuterol (Ventolin Hfa Inhaler) 2 puffs Q6H PRN INH 09/16/17 17:30 10/16/17 17:29 09/17/17 18:29 2 PUFFS Bupropion HCl (Wellbutrin-Sr Tab) 100 mg QAM PO 09/17/17 09:00 10/17/17 08:59 09/18/17 07:38 100 MG Calcitonin [place] (Fortical Nasal [place]) 1 spray QPM NA 09/16/17 21:00 10/16/17 20:59 09/17/17 21:17 1 SPRAY Clonazepam (Klonopin Tab) 0.25 mg QID PRN PO 09/16/17 17:30 10/16/17 17:29 09/17/17 21:56 0.25 MG Clozapine (Clozaril Tab) 100 mg TID PO 09/16/17 21:00 10/16/17 20:59 09/18/17 07:40 100 MG Docusate Sodium (coLACE CAP) 100 mg BID PO 09/16/17 21:00 10/16/17 20:59 09/18/17 07:38 100 MG Escitalopram Oxalate (Lexapro Tab) 30 mg QAM PO 09/17/17 09:00 10/17/17 08:59 09/18/17 07:38 30 MG Fenofibrate (Tricor Tab) 48 mg QAM PO 09/17/17 09:00 10/17/17 08:59 09/18/17 07:40 48 MG Fluticasone Propionate (Flonase Nasal [place]) 2 sprays QAM JOSE 09/17/17 09:00 10/17/17 08:59 09/18/17 07:39 2 SPRAYS Folic Acid (Folvite Tab) 1 mg DAILY PO 09/17/17 09:00 10/17/17 08:59 09/18/17 07:40 1 MG Gabapentin (Neurontin Cap) 400 mg TID PO 09/16/17 21:00 10/16/17 20:59 09/18/17 07:38 400 MG Midodrine (Proamatine Tab) 10 mg TID@08,12,17 PO 09/17/17 08:00 10/17/17 07:59 09/18/17 07:38 10 MG Montelukast Sodium (Singulair Tab) 10 mg HS PO 09/16/17 21:00 10/16/17 20:59 09/17/17 21:18 10 MG Ranitidine HCl (zANTac TAB) 150 mg BID PO 09/16/17 21:00 10/16/17 20:59 09/18/17 07:38 150 MG Senna/Docusate Sodium (Senokot S Tab) 2 tab DAILY PO 09/17/17 09:00 10/17/17 08:59 09/18/17 07:38 2 TAB Miscellaneous Information (Order Awaiting Action) 1 ea QS N/A 09/17/17 00:00 10/17/17 00:00 Ceftriaxone Sodium 2000 mg/ Dextrose 70 ml @ 100 mls/hr DAILY@1400 IV 09/17/17 14:00 09/27/17 13:59 09/17/17 13:36 100 MLS/HR Heparin Sodium (Porcine) (Heparin 100 Unit/ml 5ml Flush) 5 ml PRN PRN IV 09/16/17 19:15 10/16/17 19:14 09/18/17 05:29 5 ML Enoxaparin Sodium (Lovenox Inj) 40 mg QAM SQ 09/17/17 09:00 10/17/17 08:59 09/18/17 07:41 40 MG Magnesium Hydroxide (Milk Of Magnesia Susp) 30 ml DAILY PRN PO 09/17/17 17:00 10/17/17 16:59 09/17/17 21:21 30 ML Baclofen (Lioresal Tab) 10 mg Q8H PRN PO 09/17/17 17:00 10/17/17 16:59 09/18/17 05:45 10 MG Non-Formulary Medication (Non-Formulary Patient'S Own Med) 1 ea DAILY PO 09/18/17 09:00 10/18/17 08:59 09/18/17 07:39 1 EA Fluticasone/ Vilanterol (Breo Ellipta 100-25 Mcg/Inh) 1 puffs DAILY INH 09/18/17 09:00 10/18/17 08:59 09/18/17 07:39 1 PUFFS Review of Systems Review of Systems Constitutional: No fever, No chills Neurological: No numbness/tingling Gastrointestinal: No abdominal pain, No nausea, No vomiting Respiratory: No shortness of breath Psychologic / Mental: + trouble remembering Female : + see HPI, + urinary retention, + infections, No frequent urination , No painful urination, No blood in urine, No leaking urine Physical Exam Vital Signs: Vital Signs Past 12 Hours Date Time Temp Pulse Resp B/P (MAP) Pulse Ox O2 Delivery O2 Flow Rate FiO2 09/18/17 08:00 Nasal Cannula 2.0 09/18/17 07:43 36.8 90 18 119/82 (94) 98 2.0 09/18/17 00:00 36.6 74 20 96/61 73 96 2.0 09/18/17 00:00 Nasal Cannula 2.0 Physical Exam: General Appearance: no apparent distress Eyes: bilateral eyes normal inspection ENT: hearing grossly normal Neck: supple, no JVD Respiratory/Chest: no respiratory distress, no accessory muscle use Cardiovascular: no JVD Gastrointestinal: Abdomen: normal abdomen Bladder: normal bladder Extremities: normal inspection Neurologic/Psychiatric: alert, normal mood/affect, oriented x 3 Skin: normal color, warm/dry Assessment & Plan Assessment & Plan 56 year old female, poor historian, UTI. Established patient of our urology practice. Case discussed with Dr. Argueta. CT images reviewed: trabeculation/bladder wall thickening can be attributed to patient's chronic retention. Mild left hydro not unusual in the presence of infection. Punctate nonobstructing stones in L kidney not a problem at this time. Vitals and creatinine stable, patient reports feeling better. Recommend transition to oral antibiotics per sensitivities for a total of 10 days of therapy. Chronic retention - currently managed on 0.4mg Tamsulosin, prefer to keep patient on this medication, however could consider discontinuing if believed to be contributing to patient falls. Would recommend monitoring orthostatic vital signs. Patient is not a candidate for CIC - multiple failed teaching attempts. Will arrange outpatient follow up with Dr. Argueta. If infections continue would consider chronic Liao vs SP tube placement to monitor chronic retention. Thank you for the consult. Please contact our service for any remaining questions or concerns.
[2017-09-18] MEDS: CLONAZEPAM 0.5 MG TAB PO PRN ×2 (11:21→17:18)
[2017-09-18] MEDS: CEFTRIAXONE SOD INJ 2,000 MG in DEXTROSE 5% 50ML 50 ML IV SCH (14:16)
[2017-09-18 15:45] VITALS: BP 111/75; PULSE 89; TEMP 36.5; O2SAT 96
[2017-09-18 16:00] VITALS: O2SAT 96
--- NOTE | 2017-09-18 16:01 | Progress Note ---
Internal Med Progress Note Date of Service: Sep 18, 2017. Provider Documentation: SUBJECTIVE: No fever or chills No abdominal pain or discomfort No nausea vomiting OBJECTIVE: Vital Signs-as noted below Exam: General-no sign of distress Eyes-sclera nonicteric, pupils bilateral equal reactive light extraocular muscles intact ENT-moist oral mucosa Neck-no JVD, no apparent carotid bruit, no thyromegaly Lungs-clear to auscultate, no wheeze or rales Heart-regular S1 and S2, no murmur gallop Abdomen-soft nontender, no organomegaly, no CVA tenderness Extremities-no lower extremity edema, no rash or deformity Neuro-no focal neurological deficit Lab data as noted below. ASSESSMENT & PLAN: UTI (present on admission): -Presented with fever malaise, dysuria, flank pain -Symptoms has resolved Urine culture growing Citrobacter Sensitive to ciprofloxacin IV Rocephin discontinued, changed to oral ciprofloxacin will need total 10 days of treatment CHRONIC URINARY RETENTION: CT abdomen pelvis shows perinephric stranding consistent with pyelonephritis, mild left hydronephrosis 1 nonobstructing renal calculi Appreciate input from urology Dr. Argueta History of chronic urinary retention, Was on Flomax, discontinued for orthostatic hypotension, dizziness spell leading to frequent falls Patient unable to do intermittent straight cath at home Outpatient follow-up with urology Office will arrange follow-up In future patient may need Liao catheter failure versus nephrostomy tube-with progression of urinary retention COPD: Respiratory status at baseline Continue as needed inhaler CHRONIC HYPOXEMIC RESPIRATORY FAILURE Secondary to COPD On home O2 23 L by nasal cannula Continue supplemental oxygen as per home setting HISTORY OF BIPOLAR MOOD DISORDER/SCHIZOPHRENIA Continue anti-psychiatric medication HISTORY OF FREQUENT FALLS/AMBULATORY DYSFUNCTION Uses a walker at baseline PT OT evaluation CHRONIC ORTHOSTATIC HYPOTENSION Blood pressure stable Recent ACTH stimulation test was normal Normal TSH level Continue on Midodrine CODE STATUS: Full code DVT PROPHYLAXIS Subcu Lovenox DISPOSITION Expected to be discharged home when medically stable Medicine follow-up with [facility] Urology follow-up with Dr. Argueta with [facility] physician group Vital Signs: Date Time Temp Pulse Resp B/P (MAP) Pulse Ox O2 Delivery O2 Flow Rate FiO2 09/18/17 16:00 96 Nasal Cannula 2.0 09/18/17 15:45 36.5 89 20 111/75 (87) 96 Nasal Cannula 2.0 09/18/17 08:00 Nasal Cannula 2.0 09/18/17 07:43 36.8 90 18 119/82 (94) 98 2.0 09/18/17 00:00 36.6 74 20 96/61 (73) 96 2.0 09/18/17 00:00 Nasal Cannula 2.0 Lab Results: Results Past 24 Hours Test 09/18/17 05:35 Range/Units White Blood Count 7.00 4.8-10.8 K/uL Red Blood Count 3.91 4.2-5.4 M/uL Hemoglobin 12.3 12.0-16.0 g/dL Hematocrit 38.3 37-47 % Mean Corpuscular Volume 98.0 80-100 fL Mean Corpuscular Hemoglobin 31.5 25-34 pg Mean Corpuscular Hemoglobin Concent 32.1 32-36 g/dl RDW Standard Deviation 48.6 36.4-46.3 fL RDW Coefficient of Variation 13.6 11.5-14.5 % Platelet Count 155 130-400 K/uL Mean Platelet Volume 9.8 7.4-10.4 fL Sodium Level 145 136-145 mmol/L Potassium Level 4.3 3.5-5.1 mmol/L Chloride Level 111 98-107 mmol/L Carbon Dioxide Level 30 21-32 mmol/L Anion Gap 4.0 3-11 mmol/L Blood Urea Nitrogen 21 7-18 mg/dl Creatinine 0.79 0.60-1.20 mg/dl Est Creatinine Clear Calc Drug Dose 88.7 ml/min Estimated GFR () 96.3 Estimated GFR (Non- 83.1 BUN/Creatinine Ratio 26.4 10-20 Random Glucose 121 70-99 mg/dl Calcium Level 8.5 8.5-10.1 mg/dl
[2017-09-18] MEDS ORDERED: CPR500 PO (17:57)
--- NOTE | 2017-09-18 18:12 | Discharge Instructions ---
Discharge Instructions Date of Service Sep 18, 2017. Admission Reason for Admission: Uti (Urinary Tract Infection) Discharge Discharge Diagnosis / Problem: UTI/CHRONIC URINARY RETENTION Discharge Goals Goal(s): Decrease discomfort, Improve function, Increase independence, Improve disease control, Therapeutic intervention Activity Recommendations Activity Limitations: resume your previous activity . Instructions / Follow-Up Instructions / Follow-Up Hospital follow-up. 09/26/2017 @ 11:[address] Naveed Adam III, MD [facility] Urology follow-up with Dr. Argueta [facility] physician group office will call with appointment, Current Hospital Diet Patient's current hospital diet: AHA Diet (Heart Healthy) Discharge Diet Recommended Diet: AHA Diet (Heart Healthy) Pending Studies Studies pending at discharge: no Medical Emergencies . Who to Call and When: Medical Emergencies: If at any time you feel your situation is an emergency, please call 911 immediately. . Non-Emergent Contact Non-Emergency issues call your: Primary Care Provider . . "Provider Documentation" section prepared by Vanessa Dick. .
[2017-09-18] MEDS ORDERED: CIPROFLOXACIN 500 MG TAB PO SCH (21:00)
[2017-09-18] MEDS: CALCITONIN SALMON NA 200 IU/AC 3.7 ML BTL SCH (22:30)
[2017-09-18] MEDS: NITROFURANTOIN MONOHYDRATE 100 MG CAP PO SCH (22:31)
[2017-09-18] MEDS: MONTELUKAST SOD 10 MG TAB PO SCH (22:31)
[2017-09-18 23:07] VITALS: BP 94/69; PULSE 80; TEMP 36.8; O2SAT 94
[2017-09-19 07:14] VITALS: BP 112/71; PULSE 76; TEMP 36.8; O2SAT 100
[2017-09-19] MEDS: UMECLIDINIUM BROMIDE 62.5MCG/INH INH SCH (07:40)
[2017-09-19] MEDS: FLUTICASONE FUROATE-VILANTEROL 60 PUFFS INH INH SCH (07:41)
[2017-09-19] MEDS: FLUTICASONE PROPIONATE NA SPR 16 GM BTL NAE SCH (07:41)
[2017-09-19] MEDS: RANITIDINE HCL 150 MG TAB PO SCH ×2 (07:41→20:56)
[2017-09-19] MEDS: GABAPENTIN 400 MG CAP PO SCH ×3 (07:42→20:55)
[2017-09-19] MEDS: BREXPIPRAZOLE 2 MG PO SCH (07:42)
[2017-09-19] MEDS: ALBUTEROL HFA 8 GM INHALER INH PRN (07:42)
[2017-09-19] MEDS: VIACTIV PO SCH (07:42)
[2017-09-19] MEDS: ESCITALOPRAM OXALATE 10 MG TAB PO SCH (07:43)
[2017-09-19] MEDS: DOCUSATE SODIUM 100 MG CAP PO SCH ×2 (07:43→20:55)
[2017-09-19] MEDS: BuPROPion SR 100 MG TABCR PO SCH (07:43)
[2017-09-19] MEDS: FENOFIBRATE 48 MG TAB PO SCH (07:44)
[2017-09-19] MEDS: CLOZAPINE 100 MG TAB PO SCH ×3 (07:44→20:54)
[2017-09-19] MEDS: NITROFURANTOIN MONOHYDRATE 100 MG CAP PO SCH (07:45)
[2017-09-19] MEDS: MIDODRINE 10 MG TAB PO SCH ×3 (07:45→17:29)
[2017-09-19] MEDS: DOCUSATE SODIUM/SENNA 50/8.6MG TAB PO SCH (07:46)
[2017-09-19] MEDS: ENOXAPARIN 40 MG/0.4 ML SYR SQ SCH (07:47)
[2017-09-19 08:00] VITALS: O2SAT 100
[2017-09-19] MEDS: ACETAMINOPHEN 325 MG TAB PO PRN ×2 (09:23→14:45)
[2017-09-19] MEDS: CLONAZEPAM 0.5 MG TAB PO PRN ×2 (11:30→17:52)
[2017-09-19] MEDS: BACLOFEN 10 MG TAB PO PRN ×2 (11:49→20:54)
--- NOTE | 2017-09-19 12:21 | Urology Progress Note ---
Progress Note Date of Service Sep 19, 2017. Subjective Pt evaluation today including: conversation w/ patient, chart review, lab review Pain: pt reports bladder discomfort Voiding: no voiding problems 56 yo female with chronic incomplete bladder emptying and UTI. She remains off Flomax. Continues to have some hypotension. Denies dysuria or hematuria. Culture growing citrobacter. She has been transitioned to PO Macrobid. Constitutional: No fever, No chills Respiratory: No shortness of breath Cardiovascular: No chest pain Abdomen: + pain (suprapubic discomfort), No nausea, No vomiting Female : No dysuria, No hematuria Heme: No abnormal bleeding/bruising Objective Vital Signs Date Time Temp Pulse Resp B/P (MAP) Pulse Ox O2 Delivery O2 Flow Rate FiO2 09/19/17 08:00 100 Nasal Cannula 2.0 09/19/17 07:14 36.8 76 18 112/71 (85) 100 2.0 09/19/17 00:00 Nasal Cannula 2.0 09/18/17 23:07 36.8 80 18 94/69 (77) 94 Nasal Cannula 2.0 09/18/17 16:00 96 Nasal Cannula 2.0 09/18/17 15:45 36.5 89 20 111/75 (87) 96 Nasal Cannula 2.0 Physical Exam General Appearance: no apparent distress Eyes: normal inspection ENT: hearing grossly normal Neck: no JVD Respiratory/Chest: no respiratory distress, no accessory muscle use Cardiovascular: no JVD Extremities: normal inspection Neurologic/Psychiatric: alert, normal mood/affect, oriented x 3 Skin: normal color Assessment and Plan UTI Continue Macrobid for 10 days of therapy total. Mild left hydronephrosis Suspect r/t infection and her chronic incomplete emptying. Cr has remained stable. Will observe for now. Plan to repeat a renal u/s in 2 weeks as an outpatient. Incomplete emptying Will order bladder scans qshift. She will remain off Flomax d/t dizziness, falls, and hypotension. Consider chronic arzate or SPT placement in the future if emptying continues to be a problem. She has failed self CIC attempts in the past, and has no one at home willing to help her with this. Will continue to follow along with primary service. Discharge planning: home
[2017-09-19] MEDS ORDERED: CEFU1TAB35 PO (13:05)
[2017-09-19] MEDS ORDERED: CEFUROXIME AXETIL 500 MG TAB PO STA (13:23)
[2017-09-19] MEDS ORDERED: CEFD300C3 PO (13:57)
[2017-09-19] MEDS: CEFDINIR 300 MG CAP PO SCH ×2 (15:18→20:53)
[2017-09-19 15:24] VITALS: BP 128/84; PULSE 80; TEMP 36.6; O2SAT 98
--- NOTE | 2017-09-19 17:19 | Progress Note ---
Internal Med Progress Note Date of Service: Sep 19, 2017. Provider Documentation: SUBJECTIVE: Feels fine, no complaint of urinary symptoms, no dysuria, no fever or chills Chronic bladder retention, post vital residual urine approximately 200 mL every shift Patient was evaluated by neurology Recommend outpatient neurology follow-up OBJECTIVE: Vital Signs-as noted below Exam: General-no sign of distress Eyes-sclera nonicteric, pupils bilateral equal reactive light extraocular muscles intact ENT-moist oral mucosa Neck-no JVD, no apparent carotid bruit, no thyromegaly Lungs-clear to auscultate, no wheeze or rales Heart-regular S1 and S2, no murmur gallop Abdomen-soft nontender, no organomegaly, no CVA tenderness Extremities-no lower extremity edema, no rash or deformity Neuro-no focal neurological deficit Lab data as noted below. ASSESSMENT & PLAN: UTI (present on admission): -Presented with fever malaise, dysuria, flank pain -Symptoms has resolved Urine culture growing Citrobacter-pansensitive IV Rocephin discontinued Cannot be treated with ciprofloxacin/quinolone for drug interaction with anti- psychiatric med Clozaril Patient started with Omnicef 300 mg p.o. twice daily will need total 10 days of treatment CHRONIC URINARY RETENTION: CT abdomen pelvis shows perinephric stranding consistent with pyelonephritis, mild left hydronephrosis 1 nonobstructing renal calculi trabecular/bladder wall thickening which is attributed to patient's chronic retention Appreciate input from urology Dr. Argueta History of chronic urinary retention, Was on Flomax, discontinued for orthostatic hypotension, dizziness spell leading to frequent falls Patient unable to do intermittent straight cath at home Outpatient follow-up with urology Office will arrange follow-up In future patient may need Liao catheter failure versus nephrostomy tube-with progression of urinary retention COPD: Respiratory status at baseline Continue as needed inhaler CHRONIC HYPOXEMIC RESPIRATORY FAILURE Secondary to COPD On home O2 23 L by nasal cannula Continue supplemental oxygen as per home setting HISTORY OF BIPOLAR MOOD DISORDER/SCHIZOPHRENIA Continue anti-psychiatric medication HISTORY OF FREQUENT FALLS/AMBULATORY DYSFUNCTION Uses a walker at baseline PT OT evaluation CHRONIC ORTHOSTATIC HYPOTENSION Blood pressure stable Recent ACTH stimulation test was normal Normal TSH level Continue on Midodrine CODE STATUS: Full code DVT PROPHYLAXIS Subcu Lovenox DISPOSITION Expected to be discharged home tomorrow 09/20/17 Medicine follow-up with [facility] Urology follow-up with Dr. Argueta with [facility] physician group Vital Signs: Date Time Temp Pulse Resp B/P (MAP) Pulse Ox O2 Delivery O2 Flow Rate FiO2 09/19/17 23:17 36.9 104 20 95/62 (73) 97 Nasal Cannula 09/19/17 15:24 36.6 80 18 128/84 (99) 98 Nasal Cannula 2.0 09/19/17 08:00 100 Nasal Cannula 2.0 09/19/17 07:14 36.8 76 18 112/71 (85) 100 2.0
[2017-09-19 20:05] VITALS: O2SAT 100
[2017-09-19] MEDS: CALCITONIN SALMON NA 200 IU/AC 3.7 ML BTL SCH (20:52)
[2017-09-19] MEDS: MONTELUKAST SOD 10 MG TAB PO SCH (20:55)
[2017-09-19] MEDS ORDERED: CEFUROXIME AXETIL 500 MG TAB PO SCH (21:00)
[2017-09-19] MEDS ORDERED: ALUMINUM/MAGNESIUM/SIMETH (MAALOX MAX) 30 ML UDC PO STA (22:19)
[2017-09-19] MEDS ORDERED: ALUMINUM/MAGNESIUM/SIMETH (MAALOX MAX) 30 ML UDC PO PRN (22:30)
[2017-09-19 23:17] VITALS: BP 95/62; PULSE 104; TEMP 36.9; O2SAT 97
[2017-09-20 07:20] VITALS: BP 116/84; PULSE 75; TEMP 36.9; O2SAT 98
[2017-09-20 08:00] VITALS: O2SAT 100
[2017-09-20] MEDS: FLUTICASONE PROPIONATE NA SPR 16 GM BTL NAE SCH (08:46)
[2017-09-20] MEDS: DOCUSATE SODIUM 100 MG CAP PO SCH (08:47)
[2017-09-20] MEDS: ESCITALOPRAM OXALATE 10 MG TAB PO SCH (08:47)
[2017-09-20] MEDS: UMECLIDINIUM BROMIDE 62.5MCG/INH INH SCH (08:47)
[2017-09-20] MEDS: FLUTICASONE FUROATE-VILANTEROL 60 PUFFS INH INH SCH (08:47)
[2017-09-20] MEDS: BuPROPion SR 100 MG TABCR PO SCH (08:48)
[2017-09-20] MEDS: BREXPIPRAZOLE 2 MG PO SCH (08:48)
[2017-09-20] MEDS: ALBUTEROL HFA 8 GM INHALER INH PRN (08:48)
[2017-09-20] MEDS: FENOFIBRATE 48 MG TAB PO SCH (08:49)
[2017-09-20] MEDS: RANITIDINE HCL 150 MG TAB PO SCH (08:49)
[2017-09-20] MEDS: CLOZAPINE 100 MG TAB PO SCH ×2 (08:49→13:15)
[2017-09-20] MEDS: DOCUSATE SODIUM/SENNA 50/8.6MG TAB PO SCH (08:49)
[2017-09-20] MEDS: GABAPENTIN 400 MG CAP PO SCH ×2 (08:50→13:16)
[2017-09-20] MEDS: VIACTIV PO SCH (08:51)
[2017-09-20] MEDS: ENOXAPARIN 40 MG/0.4 ML SYR SQ SCH (08:51)
[2017-09-20] MEDS: MIDODRINE 10 MG TAB PO SCH ×2 (08:52→13:15)
[2017-09-20] MEDS: CEFDINIR 300 MG CAP PO SCH (09:41)
[2017-09-20] MEDS: BACLOFEN 10 MG TAB PO PRN (10:10)
[2017-09-20] MEDS: ACETAMINOPHEN 325 MG TAB PO PRN (10:10)
[2017-09-20] MEDS: CLONAZEPAM 0.5 MG TAB PO PRN (12:38)
[2017-09-20 14:48] VITALS: BP 124/84; PULSE 88; TEMP 36.6; O2SAT 93
[2017-09-20 15:20] VITALS: BP 124/84; PULSE 88; TEMP 36.6; O2SAT 93
--- NOTE | 2017-09-20 18:37 | Discharge Summary ---
Discharge Summary Date of Service Sep 20, 2017. Discharge Summary Admission Date: Sep 16, 2017 at 14:48 Discharge Date: Sep 20, 2017 Discharge Disposition: Home Principal Diagnosis: UTI/CHRONIC URINARY RETENTION Procedures: CT ABDOMEN PELVIS WITH IV CONTRAST IMPRESSION: 1. Bilateral urothelial enhancement with mild left-sided hydroureteronephrosis. Additionally, there is marked wall thickening and trabeculation of the urinary bladder. Findings suggest cystitis with ascending ureteritis/pyelitis. 2. Punctate nonobstructing left-sided nephrolithiasis. 3. Normal appendix. 4. Bibasilar mixed alveolar and groundglass opacities with bronchiectasis redemonstrated. 5. Additional findings as above. Consultations: UROLOGY: DR. SPARKS, [facility] Medication Reconciliation New Medications: Cefdinir (Cefdinir) 300 Mg Cap 300 MG PO BID for 7 Days, #14 CAP Continued Medications: Acetaminophen (Acetaminophen) 500 Mg Tab 1000 MG PO UD PRN for Pain, TAB MAXIMUM 2 GM APAP DAY Albuterol Hfa (Ventolin Hfa) 200 Puffs/00996 Mcg Aers 2 PUFFS INH Q6H PRN for SOB/Wheezing Azithromycin (Zithromax) 250 Mg Tab 250 MG PO UD PRN for Rescue Kit, TAB RESCUE KIT FOLLOWS: TAKE 2 TABLETS FIRST DAY THEN ONE TABLET DAILY FOR 4 DAYS Brexpiprazole (Rexulti) 2 Mg Tab 2 MG PO QAM Bupropion (Wellbutrin Sr) 100 Mg Ertab 100 MG PO QAM TAKE THIS MEDICATION WITH FOOD Calcitonin [place] (Calcitonin-[place]) 30 Lysite/3.7 Ml Soln 1 SPRAY NA QPM ONCE DAILY. ALTERNATE NOSTRILS. Moznvie-Klza-Lvdphyj D-Vitamin (Calcium Soft Chews 545-1-1803-40 mg-Unt-Mcg) 1 Chw Chw 1 TAB PO BID Clonazepam (Klonopin) 0.5 Mg Tab 0.5 TAB PO QID PRN for Anxiety, TAB Clozapine (Clozapine) 100 Mg Tab 100 MG PO TID Docusate Sodium (Docusate Sodium) 100 Mg Cap 100 MG PO BID Escitalopram Oxalate (Escitalopram Oxalate) 20 Mg Tab 1.5 TABS PO QAM Fenofibrate (Fenofibrate) 48 Mg Tab 48 MG PO QAM Ferrous Sulfate (Ferrous Sulfate) 325 Mg Tab 325 MG PO BIDM Fluticasone Furoate-Vilanterol (Breo Ellipta) 1 Inh Inh 1 PUFF INH QAM RINSE MOUTH AFTER USE Fluticasone Propionate (Nasal) (Flonase Allergy Relief) 50 Mcg/Act Spr 2 SPRAYS JOSE QAM Folic Acid (Folic Acid) 1 Mg Tab 1 MG PO DAILY Gabapentin (Gabapentin) 400 Mg Cap 400 MG PO TID Magnesium Hydroxide (Milk Of Magnesia) 30 Ml Susp 30 ML PO DAILY PRN for Constipation, ML Menaquinone-7 (Vitamin K2) 40 Mcg Tab 40 MCG PO DAILY Midodrine (Midodrine HCl) 10 Mg Tab 10 MG PO TID@08,12,17 for 30 Days, #90 TAB 2 Refills Montelukast Sod (Montelukast Sodium) 10 Mg Tab 10 MG PO HS Prednisone (Prednisone) 20 Mg Tab 20 MG PO UD PRN for Rescue Kit, TAB RESCUE KIT FOLLOWS: TAKE 2 TABLETS (40 MG) DAILY FOR 5 DAYS THEN ONE TABLET (20 MG) DAILY FOR 5 DAYS Ranitidine HCl (Ranitidine HCl) 150 Mg Tab 150 MG PO BID Sennosides-Docusate Sodium (Senna Plus) 1 Tab Tab 2 TABS PO DAILY Tamsulosin HCl (Tamsulosin HCl) 0.4 Mg Cap 0.4 MG PO HS Umeclidinium [place] (Incruse Ellipta) 62.5 Mcg/Inh Inh 1 PUFF INH QAM Zoledronic Acid (Reclast) 5 Mg/100 Ml Inj 1 DOSE IV YEARLY Referrals At Discharge Follow up Referrals: Urologist Referral - Please Call For Appointment with Robbin Sparks MD, Urology Admission Information HPI (per Admitting provider): 56-year-old female followed by Dr. Adam. History of COPD and other problems noted below. Hospitalized a few weeks ago with orthostatic hypotension and bronchitis. A few days ago she noticed malaise and generalized weakness. 3 days prior to admission she noted some dysuria and bilateral flank pain. No definite gross hematuria. 2 days prior to admission she noted a fever. She was prescribed an antibiotic for suspected urinary tract infection, but has not yet had it filled. Experiencing progressive weakness and at least one fall. . Physical Exam (per Admitting): CONSTITUTIONAL vital signs as noted above well-developed, well-nourished, no acute distress EYES conjunctivae clear; lids normal pupils equal and reactive to light EARS, NOSE, MOUTH AND THROAT external inspection of ears and nose unremarkable hearing grossly intact to spoken voice edentulous oropharynx clear NECK no masses; trachea midline thyroid normal RESPIRATORY normal respiratory effort; no respiratory distress diffuse mild wheezing clear to percussion CARDIOVASCULAR regular rate and rhythm no murmur, gallop, or rub appreciated carotid arteries 2/2; no bruits appreciated abdominal aorta not palpable pedal pulses intact and symmetric no pretibial edema GASTROINTESTINAL normal bowel sounds, soft, nontender; no palpable masses no hepatomegaly; no splenomegaly LYMPHATIC no cervical adenopathy MUSCULOSKELETAL no cyanosis; no digital clubbing no calf tenderness motor strength extremities grossly intact SKIN no rash warm and dry NEUROLOGIC PERRL, EOMI, no facial palsy, no dysarthria, tongue midline patellar DTR's 1/2 PSYCHIATRIC oriented to person, place, time mood and affect appropriate . Hospital Course Feels fine, No complaint of fever or chills, no nausea no abdominal pain Ambulating independently in room No urinary symptoms Stable to be discharged home today PHYSICAL EXAM: General-No sign of distress comfortable HEENT-sclera nonicteric, pupils bilateral equal reactive light extraocular muscles intact Neck-supple no JVD, no carotid bruit no thyromegaly trachea midline Lungs-diminished, no wheeze or rales noted Heart-regular S1 and S2 no murmur gallop Abdomen-soft, nontender, no organomegaly, no CVA tenderness Extremity-no rash or deformity, no lower extremity edema Neuro-alert awake oriented 3, no focal neurological deficit Last 8 Hrs Date Time Temp Pulse Resp B/P (MAP) Pulse Ox O2 Delivery O2 Flow Rate FiO2 09/20/17 15:20 36.6 88 20 93 Nasal Cannula 09/20/17 14:48 36.6 88 20 124/84 (97) 93 UTI (present on admission): -Presented with fever malaise, dysuria, flank pain -Symptoms has resolved Urine culture growing Citrobacter-pansensitive IV Rocephin discontinued Cannot be treated with ciprofloxacin/quinolone for drug interaction with anti- psychiatric med Clozaril Patient started with Omnicef 300 mg p.o. twice daily will need total 10 days of treatment CHRONIC URINARY RETENTION: CT abdomen pelvis shows perinephric stranding consistent with pyelonephritis, mild left hydronephrosis 1 nonobstructing renal calculi trabecular/bladder wall thickening which is attributed to patient's chronic retention Appreciate input from urology Dr. Sparks History of chronic urinary retention, Was on Flomax, discontinued for orthostatic hypotension, dizziness spell leading to frequent falls Patient unable to do intermittent straight cath at home Outpatient follow-up with urology In future patient may need Liao catheter failure versus nephrostomy tube-with progression of urinary retention COPD: Respiratory status at baseline Continue as needed inhaler CHRONIC HYPOXEMIC RESPIRATORY FAILURE Secondary to COPD On home O2 23 L by nasal cannula Continue supplemental oxygen as per home setting HISTORY OF BIPOLAR MOOD DISORDER/SCHIZOPHRENIA Continue anti-psychiatric medication HISTORY OF FREQUENT FALLS/AMBULATORY DYSFUNCTION Uses a walker at baseline PT OT evaluation-appreciated Stable to return home CHRONIC ORTHOSTATIC HYPOTENSION Blood pressure stable Recent ACTH stimulation test was normal Normal TSH level Continue on Midodrine CODE STATUS: Full code DVT PROPHYLAXIS Subcu Lovenox DISPOSITION Stable to be discharged home today Medicine follow-up with [facility] Urology follow-up with Dr. Sparks with [facility] Total time spent on discharge = 40 minutes This includes examination of the patient, discharge planning, medication reconciliation, and communication with other providers. Discharge Instructions Discharge Instructions Date of Service Sep 18, 2017. Admission Reason for Admission: Uti (Urinary Tract Infection) Discharge Discharge Diagnosis / Problem: UTI/CHRONIC URINARY RETENTION Discharge Goals Goal(s): Decrease discomfort, Improve function, Increase independence, Improve disease control, Therapeutic intervention Activity Recommendations Activity Limitations: resume your previous activity . Instructions / Follow-Up Instructions / Follow-Up Hospital follow-up. 09/26/2017 @ 11:[address] Naveed Adam III, MD [facility] Urology follow-up with Dr. [facility] office will call with appointment, Current Hospital Diet Patient's current hospital diet: AHA Diet (Heart Healthy) Discharge Diet Recommended Diet: AHA Diet (Heart Healthy) Pending Studies Studies pending at discharge: no Medical Emergencies . Who to Call and When: Medical Emergencies: If at any time you feel your situation is an emergency, please call 911 immediately. . Non-Emergent Contact Non-Emergency issues call your: Primary Care Provider . . "Provider Documentation" section prepared by Vanessa Dick. .
== END 2017-09-20 16:46 | disposition home health service (06) | DRG 690 ==
LOC: EDBD 11:11 → C.EDC 11:12 → C.MS2W 14:48 → ENRESERV 15:05
PROVIDERS: ADMIT Hospitalist; ATTEND Hospitalist
DX: N12 Tubulo-interstitial nephritis, not specified as acute or chronic (principal); J96.11 Chronic respiratory failure with hypoxia; J84.9 Interstitial pulmonary disease, unspecified; N13.6 Pyonephrosis; B96.89 Other specified bacterial agents as the cause of diseases classified elsewhere; R33.9 Retention of urine, unspecified; R32 Unspecified urinary incontinence; E86.0 Dehydration; R00.0 Tachycardia, unspecified; R51 Headache; W19.XXXA Unspecified fall, initial encounter; Y92.009 Unspecified place in unspecified non-institutional (private) residence as the place of occurrence of the external cause; R29.6 Repeated falls; J44.9 Chronic obstructive pulmonary disease, unspecified; I95.2 Hypotension due to drugs; T44.6X Poisoning by, adverse effect of and underdosing of alpha-adrenoreceptor antagonists; K21.9 Gastro-esophageal reflux disease without esophagitis; G89.29 Other chronic pain; M54.9 Dorsalgia, unspecified; F31.9 Bipolar disorder, unspecified; F20.9 Schizophrenia, unspecified; Z91.81 History of falling; Z99.81 Dependence on supplemental oxygen; Z86.19 Personal history of other infectious and parasitic diseases; Z87.891 Personal history of nicotine dependence; Z79.1 Long term (current) use of non-steroidal anti-inflammatories (NSAID); Z79.51 Long term (current) use of inhaled steroids; Z79.899 Other long term (current) drug therapy; Z88.5 Allergy status to narcotic agent; Z88.8 Allergy status to other drugs, medicaments and biological substances

== ENCOUNTER 2017-09-23 09:25 | Emergency (ER) | payer OTHER ==
[~2017-09-23 09:25] MED LIST changes: +CEFD300C3 PO; +CLON0.5T9 PO; -KLN5 PO; -LRS10 PO; +MENA40TA PO; +ZOLE5INJ IV
[2017-09-23 09:33] VITALS: TEMP 36.9
[2017-09-23] MEDS ORDERED: KETOROLAC TROMETHAMINE 60 MG/2 ML VIAL IM STA (09:44)
--- NOTE | 2017-09-23 10:23 | DIAGNOSTIC IMAGING REPORT ---
L-SPINE MIN 4 VIEWS ROUTINE HISTORY: Trauma. Pain. Fall/low back pain COMPARISON: None. FINDINGS: There is no fracture. No subluxation. Moderate degenerative disc change throughout. No evidence for compression deformity. Postoperative changes involving the low thoracic spine. IMPRESSION: Degenerative and postoperative change. No acute process. The above report was generated using voice recognition software. It may contain grammatical, syntax or spelling errors. Electronically signed by: Manfred Noriega M.D. 09/23/2017 10:22 AM Dictated Date/Time: 09/23/2017 10:21 AM
--- NOTE | 2017-09-23 10:26 | DIAGNOSTIC IMAGING REPORT ---
L FOOT MIN 3 VIEWS ROUTINE CLINICAL HISTORY: Fall/foot pain pain COMPARISON: None. DISCUSSION: Moderate generalized degenerative change. Osteopenia. No evidence for fracture or dislocation. There is no evidence for soft tissue swelling. IMPRESSION: Degenerative change. Osteopenia. No acute process. The above report was generated using voice recognition software. It may contain grammatical, syntax or spelling errors. Electronically signed by: Manfred Noriega M.D. 09/23/2017 10:24 AM Dictated Date/Time: 09/23/2017 10:23 AM
--- NOTE | 2017-09-23 10:27 | DIAGNOSTIC IMAGING REPORT ---
R FOOT MIN 3 VIEWS ROUTINE CLINICAL HISTORY: Fall/foot pain trauma. Pain. COMPARISON: None. DISCUSSION: Generalized degenerative change. Deformity midshaft third metatarsal tarsal felt to be a healed old fracture. No acute bony abnormality. Osteopenia. There is no evidence for soft tissue swelling. IMPRESSION: Degenerative change, osteopenia. No acute process. The above report was generated using voice recognition software. It may contain grammatical, syntax or spelling errors. Electronically signed by: Manfred Noriega M.D. 09/23/2017 10:25 AM Dictated Date/Time: 09/23/2017 10:24 AM
--- NOTE | 2017-09-23 10:28 | DIAGNOSTIC IMAGING REPORT ---
PELVIS 1 OR 2 VIEW ROUTINE/bilateral femur CLINICAL HISTORY: Fall/pelvic pain trauma. Pain. COMPARISON: 05/22/2017 DISCUSSION: Operative changes consistent with bilateral hip pains. No evidence for acute bony abnormality. No acute fracture. There is no evidence for soft tissue swelling. Longstem intramedullary nina within the femurs IMPRESSION: No acute bony abnormality. Degenerative and postoperative change. The above report was generated using voice recognition software. It may contain grammatical, syntax or spelling errors. Electronically signed by: Manfred Noriega M.D. 09/23/2017 10:27 AM Dictated Date/Time: 09/23/2017 10:26 AM
--- NOTE | 2017-09-23 10:32 | EMERGENCY ROOM VISIT NOTE ---
ED Visit Note First contact with patient: 09:36 I have personally seen and evaluated the patient with the physician assistant bookkeeper. I agree with the diagnostic/management decisions and have personally been involved in these decisions and agree with the diagnosis.
--- NOTE | 2017-09-23 10:43 | EMERGENCY ROOM VISIT NOTE ---
History First contact with patient: 09:36 Chief Complaint: PAIN (GENERALIZED) Stated Complaint: FEET HURT History of Present Illness The patient is a 56 year old female who presents to the Emergency Room via EMS with complaints of fell yesterday when she was reaching for her wheeled walker. She states she landed on her buttocks and lower back. Since that time she has pain in the lower back and both hips. The patient also states that since that time she has pain in both her feet. She does admit that she had prior fractures of both her feet and was seen by Dr. Colón. The patient denies a loss of consciousness with the fall, headache, dizziness, visual changes or any upper back pain. The patient denies a loss of bowel or bladder control. The patient denies any saddle anesthesia. Patient denies any chest pain or shortness of breath. Review of Systems 10 system review was performed and was negative unless stated otherwise history of present illness. Past Medical/Surgical History Medical Problems: (1) Accidental drug overdose (2) Alcohol abuse (3) Aspiration pneumonia (4) Cataract (5) Chest pain (6) Chronic back pain (7) Chronic hepatitis C (8) Chronic obstructive lung disease (9) Chronic paranoid schizophrenia (10) Closed fracture of femur (11) Contusion of head (12) COPD (chronic obstructive pulmonary disease) (13) Deep venous thrombosis (14) Depression (15) Drug abuse (16) Dyspnea (17) Fall (18) Gastroesophageal reflux disease (19) Hepatitis C (20) Hypoxia (21) Hysterectomy (22) Leukocytosis (23) Osteomyelitis (24) Osteoporosis (25) Past Psych Meds (26) S/P ORIF (open reduction internal fixation) fracture (27) Schizoaffective disorder (28) Seizure (29) Sepsis (30) Suicidal ideation (31) Syncope and collapse (32) Tinea (33) Tobacco user (34) Urinary retention with incomplete bladder emptying (35) Urinary tract infection, recurrent (36) UTI (urinary tract infection) Surgical Problems: (1) H/O colonoscopy (2) History of hysterectomy (3) S/p thoracic spinal surgery (4) S/P tonsillectomy Family History FH: lung cancer GRANDMOTHER Thyroid disorder MOTHER SISTER Social History Smoking Status: Former Smoker Drug Use: other Marital Status: single Housing Status: lives with family Occupation Status: disabled Current/Historical Medications Scheduled Brexpiprazole (Rexulti), 2 MG PO QAM Bupropion (Wellbutrin Sr), 100 MG PO QAM Calcitonin [place] (Calcitonin-[place]), 1 SPRAY NA QPM Jkfvajb-Lefd-Qwnhcdy D-Vitamin (Calcium Soft Chews 603-2-4775-40 mg-Unt-Mcg), 1 TAB PO BID Cefdinir (Cefdinir), 300 MG PO BID Clozapine (Clozapine), 100 MG PO TID Docusate Sodium (Docusate Sodium), 100 MG PO BID Escitalopram Oxalate (Escitalopram Oxalate), 1.5 TABS PO QAM Fenofibrate (Fenofibrate), 48 MG PO QAM Ferrous Sulfate (Ferrous Sulfate), 325 MG PO BIDM Fluticasone Furoate-Vilanterol (Breo Ellipta), 1 PUFF INH QAM Fluticasone Propionate (Nasal) (Flonase Allergy Relief), 2 SPRAYS JOSE QAM Folic Acid (Folic Acid), 1 MG PO DAILY Gabapentin (Gabapentin), 400 MG PO TID Menaquinone-7 (Vitamin K2), 40 MCG PO DAILY Midodrine (Midodrine HCl), 10 MG PO TID@08,12,17 Montelukast Sod (Montelukast Sodium), 10 MG PO HS Ranitidine HCl (Ranitidine HCl), 150 MG PO BID Sennosides-Docusate Sodium (Senna Plus), 2 TABS PO DAILY Tamsulosin HCl (Tamsulosin HCl), 0.4 MG PO HS Umeclidinium [place] (Incruse Ellipta), 1 PUFF INH QAM Zoledronic Acid (Reclast), 1 DOSE IV YEARLY Scheduled PRN Acetaminophen (Acetaminophen), 1,000 MG PO UD PRN for Pain Albuterol Hfa (Ventolin Hfa), 2 PUFFS INH Q6H PRN for SOB/Wheezing Azithromycin (Zithromax), 250 MG PO UD PRN for Rescue Kit Clonazepam (Klonopin), 0.5 TAB PO QID PRN for Anxiety Magnesium Hydroxide (Milk Of Magnesia), 30 ML PO DAILY PRN for Constipation Prednisone (Prednisone), 20 MG PO UD PRN for Rescue Kit Physical Exam Vital Signs Date Time Temp Pulse Resp B/P (MAP) Pulse Ox O2 Delivery O2 Flow Rate FiO2 09/23/17 10:23 90 18 132/81 100 Nasal Cannula 2.0 09/23/17 09:46 95 09/23/17 09:33 36.9 98 18 98/78 98 Nasal Cannula 2.0 Physical Exam GENERAL: 56-year-old white female appears in no acute distress. MENTAL Status: Alert and oriented 3. LUNGS: Clear auscultation without wheezes rales or rhonchi. CARDIAC: Regular rate and rhythm without murmur. Pulses is full and equal throughout. ABDOMEN: Positive bowel sounds all 4 quadrants. Soft, nontender to palpation without organomegaly or masses. LUMBAR SPINE: No gross bony deformity noted. The patient is nontender to palpation over the spinous processes. She has tenderness palpation over the paravertebral regions bilaterally. PELVIS: No gross bony deformity noted. The patient has tenderness palpation over the left posterior pelvis and over the right lateral region of the pelvis. I did not assess range of motion of the hips in case there is a fracture. There is no visible abnormal rotation or shortening of the legs. BILATERAL FEET: No gross bony deformity noted. No erythema or edema noted. The patient is tender to palpation over the dorsal aspect of both feet. Medical Decision & Procedures ER Provider Diagnostic Interpretation: PELVIS 1 OR 2 VIEW ROUTINE/bilateral femur CLINICAL HISTORY: Fall/pelvic pain trauma. Pain. COMPARISON: 05/22/2017 DISCUSSION: Operative changes consistent with bilateral hip pains. No evidence for acute bony abnormality. No acute fracture. There is no evidence for soft tissue swelling. Longstem intramedullary nina within the femurs IMPRESSION: No acute bony abnormality. Degenerative and postoperative change. The above report was generated using voice recognition software. It may contain grammatical, syntax or spelling errors. Electronically signed by: Manfred Noriega M.D. 09/23/2017 10:27 AM L-SPINE MIN 4 VIEWS ROUTINE HISTORY: Trauma. Pain. Fall/low back pain COMPARISON: None. FINDINGS: There is no fracture. No subluxation. Moderate degenerative disc change throughout. No evidence for compression deformity. Postoperative changes involving the low thoracic spine. IMPRESSION: Degenerative and postoperative change. No acute process. The above report was generated using voice recognition software. It may contain grammatical, syntax or spelling errors. Electronically signed by: Manfred Noriega M.D. 09/23/2017 10:22 AM R FOOT MIN 3 VIEWS ROUTINE CLINICAL HISTORY: Fall/foot pain trauma. Pain. COMPARISON: None. DISCUSSION: Generalized degenerative change. Deformity midshaft third metatarsal tarsal felt to be a healed old fracture. No acute bony abnormality. Osteopenia. There is no evidence for soft tissue swelling. IMPRESSION: Degenerative change, osteopenia. No acute process. The above report was generated using voice recognition software. It may contain grammatical, syntax or spelling errors. L FOOT MIN 3 VIEWS ROUTINE CLINICAL HISTORY: Fall/foot pain pain COMPARISON: None. DISCUSSION: Moderate generalized degenerative change. Osteopenia. No evidence for fracture or dislocation. There is no evidence for soft tissue swelling. IMPRESSION: Degenerative change. Osteopenia. No acute process. The above report was generated using voice recognition software. It may contain grammatical, syntax or spelling errors. Electronically signed by: Manfred Noriega M.D. Medications Administered Medications (Trade) Dose Ordered Sig/Janel Route Start Time Stop Time Status Last Admin Dose Admin Ketorolac Tromethamine (Toradol Inj) 60 mg NOW STAT IM 09/23/17 09:44 09/23/17 09:47 DC 09/23/17 10:24 60 MG ED Course The patient was evaluated. Patient's EMR medication list were reviewed. The patient was given Toradol 60 mg IM for pain. X-rays of the lumbar spine, pelvis and bilateral feet were ordered interpreted by the radiologist as above with findings consistent with arthritis and osteopenia but no evidence of acute fracture. The patient was informed of the findings. The patient was independently evaluated by Dr. Mosqueda who agreed with treatment plan. The patient was discharged home with her sister driving. Medical Decision Differential diagnosis include contusions versus fractures of the lumbar spine, pelvis, bilateral feet [place] Drug Monitoring Program Search Results: patient reviewed within database Medication Reconcilliation Current Medication List: was personally reviewed by [place] Blood Pressure Screening Patient's blood pressure: Normal blood pressure Impression Primary Impression: Low back pain Additional Impressions: Bilateral hip pain Bilateral foot pain Departure Information Dispostion Home / Self-Care Condition GOOD Referrals Naveed Adam III, M.D. (PCP) Forms HOME CARE DOCUMENTATION FORM, IMPORTANT VISIT INFORMATION, WORK / SCHOOL INSTRUCTIONS Patient Instructions [facility] Additional Instructions Recommend taking Tylenol as needed for pain. Do not stay in any one position for an extended period of time since this will make you more stiff. Ambulate with your walker. If symptoms persist or worsen, follow-up with your family doctor. Problem Qualifiers Primary Impression: Low back pain Chronicity: acute Back pain laterality: bilateral Sciatica presence: without sciatica Qualified Codes: M54.5 - Low back pain
[2017-09-23 11:19] VITALS: BP 119/75; PULSE 85; O2SAT 97
== END 2017-09-23 11:19 | disposition home or self-care (01) ==
LOC: EDBD 09:25 → C.EDA 09:46
DX: M54.5 Low back pain (principal); M25.551 Pain in right hip; M25.552 Pain in left hip; M79.671 Pain in right foot; M79.672 Pain in left foot; W18.30XA Fall on same level, unspecified, initial encounter; M16.0 Bilateral primary osteoarthritis of hip; M19.071 Primary osteoarthritis, right ankle and foot; M19.072 Primary osteoarthritis, left ankle and foot; M51.36 Other intervertebral disc degeneration, lumbar region; M85.871 Other specified disorders of bone density and structure, right ankle and foot; M85.872 Other specified disorders of bone density and structure, left ankle and foot; G89.29 Other chronic pain; F10.10 Alcohol abuse, uncomplicated; B18.2 Chronic viral hepatitis C; J44.9 Chronic obstructive pulmonary disease, unspecified; F20.0 Paranoid schizophrenia; F25.9 Schizoaffective disorder, unspecified; F32.9 Major depressive disorder, single episode, unspecified; M81.0 Age-related osteoporosis without current pathological fracture; R56.9 Unspecified convulsions; Z86.718 Personal history of other venous thrombosis and embolism; Z87.891 Personal history of nicotine dependence; Z79.899 Other long term (current) drug therapy; Z79.51 Long term (current) use of inhaled steroids

== ENCOUNTER 2017-09-27 04:50 | Inpatient (IN) | payer OTHER ==
[~2017-09-27] VITALS: Ht 165.1 cm; Wt 94.3 kg
[2017-09-27] VITALS (9 sets, daily range): BP systolic 103–146; BP diastolic 69–93; PULSE 78–126; TEMP 36.5–36.9; O2SAT 93–97; Ht 165.1 cm; Wt 94.3 kg
[2017-09-27] MEDS ORDERED: METHYLPREDNISOLONE 125 MG VIAL IV STA (05:02)
--- NOTE | 2017-09-27 05:12 | EMERGENCY ROOM VISIT NOTE ---
History Report prepared by Stanley: Annetta Garcia Under the Supervision of: Dr. Elizabeth Erazo D.O. First contact with patient: 04:51 Chief Complaint: SHORTNESS OF BREATH Stated Complaint: SHORT OF BREATH History of Present Illness The patient is a 56 year old female who presents to the Emergency Room with complaints of worsening shortness of breath starting a few days ago. The patient states that she was discharged from the hospital a little bit ago after falling. She states that she recently has been feeling more short of breath than usual. She states that 2 hours ago she woke up and felt extremely short of breath. She states that in a panic she tried to turn her Oxygen up, but accidentally must have shut it off. She notes that the oxygen and breathing treatments did not make the shortness of breath any better. The patient complains of a productive cough that produces brownish green sputum. The patient denies abdominal pain. Source of History: patient Onset: a few days ago Position: other (lungs) Quality: other (shortness of breath) Timing: worsening Associated Symptoms: + cough (productive), No abdominal pain Review of Systems See HPI for pertinent positives & negatives. A total of 10 systems reviewed and were otherwise negative. Past Medical & Surgical Medical Problems: (1) Accidental drug overdose (2) Alcohol abuse (3) Aspiration pneumonia (4) Cataract (5) Chest pain (6) Chronic back pain (7) Chronic hepatitis C (8) Chronic obstructive lung disease (9) Chronic paranoid schizophrenia (10) Closed fracture of femur (11) Contusion of head (12) COPD (chronic obstructive pulmonary disease) (13) Deep venous thrombosis (14) Depression (15) Drug abuse (16) Dyspnea (17) Fall (18) Gastroesophageal reflux disease (19) Hepatitis C (20) Hypoxia (21) Hysterectomy (22) Leukocytosis (23) Osteomyelitis (24) Osteoporosis (25) Past Psych Meds (26) Respiratory failure, [id number] (27) S/P ORIF (open reduction internal fixation) fracture (28) Schizoaffective disorder (29) Seizure (30) Sepsis (31) Suicidal ideation (32) Syncope and collapse (33) Tinea (34) Tobacco user (35) Urinary retention with incomplete bladder emptying (36) Urinary tract infection, recurrent (37) UTI (urinary tract infection) Surgical Problems: (1) H/O colonoscopy (2) History of hysterectomy (3) S/p thoracic spinal surgery (4) S/P tonsillectomy Family History FH: lung cancer GRANDMOTHER Thyroid disorder MOTHER SISTER Social History Smoking Status: Former Smoker Drug Use: other Marital Status: single Housing Status: lives with family Occupation Status: disabled Current/Historical Medications Scheduled Bupropion (Wellbutrin Sr), 100 MG PO QAM Ktjujyj-Fzjc-Hlxitnf D-Vitamin (Calcium Soft Chews [id number] mg-Unt-Mcg), 1 TAB PO BID Cefdinir (Omnicef), 300 MG PO BID Celecoxib (Celebrex), 200 MG PO DAILY Clonazepam (Klonopin), 0.5 TAB PO TID Clozapine (Clozapine), 100 MG PO TID Docusate Sodium (Docusate Sodium), 100 MG PO BID Escitalopram Oxalate (Escitalopram Oxalate), 30 MG PO QAM Fenofibrate (Fenofibrate), 48 MG PO QAM Ferrous Sulfate (Ferrous Sulfate), 325 MG PO BIDM Fluticasone Furoate-Vilanterol (Breo Ellipta), 1 PUFF INH QAM Fluticasone Propionate (Nasal) (Flonase Allergy Relief), 2 SPRAYS JOSE QAM Folic Acid (Folic Acid), 1 MG PO DAILY Gabapentin (Gabapentin), 400 MG PO TID Home O2 Therapy (Oxygen), 2-3 LITERS NA DIRECTED Menaquinone-7 (Vitamin K2), 40 MCG PO DAILY Midodrine (Midodrine HCl), 10 MG PO TID Montelukast Sod (Montelukast Sodium), 10 MG PO HS Ranitidine HCl (Ranitidine HCl), 150 MG PO BID Sennosides-Docusate Sodium (Senna Plus), 1 TAB PO BID Tamsulosin HCl (Tamsulosin HCl), 0.4 MG PO HS Umeclidinium [place] (Incruse Ellipta), 1 PUFF INH QAM Zoledronic Acid (Reclast), 1 DOSE IV YEARLY Scheduled PRN Acetaminophen (Acetaminophen), 1,000 MG PO UD PRN for Pain Albuterol Hfa (Ventolin Hfa), 2 PUFFS INH Q6H PRN for SOB/Wheezing Azithromycin (Zithromax), 250 MG PO UD PRN for Rescue Kit Magnesium Hydroxide (Milk Of Magnesia), 30 ML PO DAILY PRN for Constipation Prednisone (Prednisone), 20 MG PO UD PRN for Rescue Kit Allergies Coded Allergies: Hydroxyzine (Verified Allergy, Unknown, UNKNOWN, 09/27/17) INFO FROM [facility] Fluphenazine (Verified Adverse Reaction, Intermediate, confusion, 09/27/17) Haloperidol (Verified Adverse Reaction, Intermediate, "MAKES ME GO INTO BLACKOUT", 09/27/17) Hydrocodone (Verified Adverse Reaction, Intermediate, DROWSY, 09/27/17) Molindone (Verified Adverse Reaction, Intermediate, PT FEELS LIKE SHES "JUMPING OUT OF HER SKIN", 09/27/17) Morphine and Related (Verified Adverse Reaction, Intermediate, DROWSY, 09/27) px was drowsy w/ pinpoint pupils and minimally responsive. stable VS. Following Morphine IR 15mg - 3 doses in prior 24 hours. Naloxone 0.4mg admin 3 times during that period. Oxycodone (Verified Adverse Reaction, Intermediate, DROWSY, 09/27/17) [place] (Verified Adverse Reaction, Mild, "LEVEL CAN GET TOO HIGH", 09/27/17 ) Physical Exam Vital Signs Date Time Temp Pulse Resp B/P (MAP) Pulse Ox O2 Delivery O2 Flow Rate FiO2 09/27/17 05:07 36.9 124 23 125/77 95 Nasal Cannula 4.0 09/27/17 05:02 125 09/27/17 05:00 93 Nasal Cannula 4.0 09/27/17 04:59 86 Room Air 09/27/17 04:59 93 Nasal Cannula 4.0 Physical Exam General: Pale and slightly cyanotic. HEENT: Head - normocephalic and atraumatic Pupils are equal, round, and reactive to light. Extraocular eye muscles are intact, and sclera are anicteric. Nose - moist nasal mucosa without discharge. Mouth - dry buccal mucosa. Oropharynx is nonerythematous and there is no tonsillar exudate or edema noted. Neck: Supple; no JVD, nuchal rigidity, cervical lymphadenopathy. Heart: Tachycardic rate and regular rhythm. There is a normal S1 and S2 with no murmurs, clicks, or gallops appreciated. Lungs: Diminished breath sounds in all lung nunes with expiratory wheezes at the bases. No rales, or rhonchi. Abdomen: Soft, slightly distended, but completely nontender, with good bowel sounds. There are no palpable pulsatile masses or hepatosplenomegaly. There is no guarding, rigidity, or rebound noted. Extremities: No evidence of cyanosis, clubbing, or edema. There are easily palpable peripheral pulses. Skin: warm and dry with good turgor and no rashes. Medical Decision & Procedures ER Provider Diagnostic Interpretation: CHEST X-RAY: The results were interpreted by me. Significant spinal hardware in place. Increased left sided opacity which appears to be acute. Cardiomegaly. Laboratory Results 09/27/17 05:05 Red Blood Count 4.73, Mean Corpuscular Volume 96.0, Mean Corpuscular Hemoglobin 31.3, Mean Corpuscular Hemoglobin Concent 32.6, Mean Platelet Volume 10.3, Neutrophils (%) (Auto) 88.3, Lymphocytes (%) (Auto) 8.5, Monocytes (%) (Auto) 2.7, Eosinophils (%) (Auto) 0.0, Basophils (%) (Auto) 0.1, Neutrophils # (Auto) 17.27, Lymphocytes # (Auto) 1.66, Monocytes # (Auto) 0.52, Eosinophils # (Auto) 0.00, Basophils # (Auto) 0.02 09/27/17 05:05 Test 09/27/17 05:05 09/27/17 05:39 09/27/17 05:41 09/27/17 05:44 White Blood Count 19.54 K/uL (4.8-10.8) Red Blood Count 4.73 M/uL (4.2-5.4) Hemoglobin 14.8 g/dL (12.0-16.0) Hematocrit 45.4 % (37-47) Mean Corpuscular Volume 96.0 fL (80-100) Mean Corpuscular Hemoglobin 31.3 pg (25-34) Mean Corpuscular Hemoglobin Concent 32.6 g/dl (32-36) Platelet Count 211 K/uL (130-400) Mean Platelet Volume 10.3 fL (7.4-10.4) Neutrophils (%) (Auto) 88.3 % Lymphocytes (%) (Auto) 8.5 % Monocytes (%) (Auto) 2.7 % Eosinophils (%) (Auto) 0.0 % Basophils (%) (Auto) 0.1 % Neutrophils # (Auto) 17.27 K/uL (1.4-6.5) Lymphocytes # (Auto) 1.66 K/uL (1.2-3.4) Monocytes # (Auto) 0.52 K/uL (0.11-0.59) Eosinophils # (Auto) 0.00 K/uL (0-0.5) Basophils # (Auto) 0.02 K/uL (0-0.2) RDW Standard Deviation 48.2 fL (36.4-46.3) RDW Coefficient of Variation 13.7 % (11.5-14.5) Immature Granulocyte % (Auto) 0.4 % Immature Granulocyte # (Auto) 0.07 K/uL (0.00-0.02) Anion Gap 7.0 mmol/L (3-11) Est Creatinine Clear Calc Drug Dose 65.1 ml/min Estimated GFR () 66.7 Estimated GFR (Non- 57.6 BUN/Creatinine Ratio 22.8 (10-20) Calcium Level 9.6 mg/dl (8.5-10.1) Troponin I < 0.015 ng/ml (0-0.045) Pro-B-Type Natriuretic Peptide 53 pg/ml (0-900) Test 09/27/17 05:51 Laboratory results per my review. Medications Administered Medications (Trade) Dose Ordered Sig/Janel Route Start Time Stop Time Status Last Admin Dose Admin Methylprednisolone Sodium Succinate (Solu-Medrol IV) 125 mg NOW STAT IV 09/27/17 05:02 09/27/17 05:03 DC 09/27/17 05:17 125 MG Albuterol/ Ipratropium (Duoneb) 12 ml ONE ONCE INH 09/27/17 05:15 09/27/17 05:16 DC 09/27/17 05:21 12 ML Procedure 0502: Ordered Solu-Medrol IV 125 mg IV. 0515: Ordered Duoneb 12 ml INH. 0525: Ordered Levofloxacin 750 mg IV. ECG Per My Interpretation Indication: SOB/dyspnea Rate (beats per minute): 123 Rhythm: sinus tachycardia Findings: no acute ischemic change, no ectopy, other (no ST elevations) ED Course 0455: Past medical records reviewed. The patient was evaluated in room A11B. A complete history and physical exam was performed. The patient was placed on 4 L of O2 by nasal cannula which brought her sats up to 91%. A 12-lead EKG was obtained. Her port was accessed and labs are drawn as above. 0502: Ordered Solu-Medrol IV 125 mg IV. A portable chest x-ray was performed. 0515: Ordered Duoneb 12 ml INH. 0525: Ordered Levofloxacin 750 mg IV. 0526: I reevaluated the patient and she is currently on her hour long nebulizer. I discussed the test results with her and the treatment plan. She verbally agrees and understands. 0532: Discussed the patient's case with Dr. Rani San. The patient will be evaluated for further management. 0544: I reevaluated the patient and she is still significantly short of breath but her O2 saturations are stable.. Medical Decision The patient is a 56 year old female who presents to the Emergency Room with complaints of worsening shortness of breath starting a few days ago. Differential diagnoses include COPD exacerbation, pneumonia, CHF. LABS: White Count 19.5 Stable H&H 88% neutrophils BUN 24 Creatine 1 Glucose 154 BNP 53 Negative Troponin Lactic acid-1.49 This is a 56-year-old female patient presents to the emergency department with worsening shortness of breath and productive cough. Chest x-ray is concerning for a new left-sided opacity. She has a significant leukocytosis. She is afebrile. She will be treated with IV antibiotics. She is currently receiving a continuous nebulizer treatment for her persistent wheezing. Medication Reconcilliation Current Medication List: was personally reviewed by me Blood Pressure Screening Patient's blood pressure: Normal blood pressure Will be further monitored by the hospitalist. Consults Time Called: 05 Consulting Physician: Dr. Rani San Returned Call: 0532 Discussed the patient's case with Dr. Rani San. The patient will be evaluated for further management. Impression Primary Impression: Pneumonia Additional Impression: Hypoxia Scribe Attestation The scribe's documentation has been prepared under my direction and personally reviewed by me in its entirety. I confirm that the note above accurately reflects all work, treatment, procedures, and medical decision making performed by me. Departure Information Dispostion Being Evaluated By Hospitalist Referrals No Doctor, Assigned (PCP) Patient Instructions My [facility] Problem Qualifiers Primary Impression: Pneumonia Pneumonia type: due to unspecified organism Laterality: left Lung location : unspecified part of lung Qualified Codes: J18.9 - Pneumonia, unspecified organism
[2017-09-27 05:15] LABS: BASO % 0.1 %; BASO ABS # 0.02 K/uL (0-0.2); HEMATOCRIT 45.4 % (37-47); HEMOGLOBIN 14.8 g/dL (12.0-16.0); IG# 0.07 K/uL (0.00-0.02); LYMPH % 8.5 %; LYMPH ABS # 1.66 K/uL (1.2-3.4); MEAN CORPUSCULAR HEMOGLOBIN 31.3 pg (25-34); MEAN CORPUSCULAR HGB CONC 32.6 g/dl (32-36); MEAN PLATELET VOLUME 10.3 fL (7.4-10.4); MONO % 2.7 %; MONO ABS # 0.52 K/uL (0.11-0.59); NEUT % 88.3 %; NEUT ABS # 17.27 K/uL (1.4-6.5); PLATELET COUNT 211 K/uL (130-400); RED CELL DISTRIBUTION WIDTH CV 13.7 % (11.5-14.5); RED CELL DISTRIBUTION WIDTH SD 48.2 fL (36.4-46.3); WHITE BLOOD COUNT 19.54 K/uL (4.8-10.8)
[2017-09-27] MEDS ORDERED: ALBUT/IPRATROP 3MG/0.5MG NEB 3 ML VIAL INH ONE (05:15)
[2017-09-27] MEDS ORDERED: LEVAQUIN 750MG / 150ML D5W IV STA (05:25)
[2017-09-27] MEDS ORDERED: CLB100 PO (05:31)
[2017-09-27] MEDS ORDERED: CEFD1CAP14 PO (05:31)
[2017-09-27] MEDS ORDERED: OXGN (05:31)
[2017-09-27] MEDS ORDERED: PRMT10 PO (05:31)
[2017-09-27 05:37] LABS: BLOOD UREA NITROGEN 24 mg/dl (7-18); CALCIUM 9.6 mg/dl (8.5-10.1); CARBON DIOXIDE 25 mmol/L (21-32); CREATININE 1.07 mg/dl (0.60-1.20); GLUCOSE 154 mg/dl (70-99); POTASSIUM 3.8 mmol/L (3.5-5.1); SODIUM 141 mmol/L (136-145)
[2017-09-27] MEDS ORDERED: PIPERACILLIN/TAZOBACTAM 4.5 GM/100ML D5W IV STA (05:41)
[2017-09-27] MEDS ORDERED: SODIUM CHLORIDE 0.9% 1000ML 1,000 ML IV STA (06:06)
[2017-09-27] MEDS ORDERED: INSULIN GLARGINE SOLOSTAR 100 UNITS/ML 3 ML PEN SC STA (06:07)
[2017-09-27] MEDS ORDERED: GLUCAGON FOR INJ 1 MG VIAL IM PRN (06:15)
[2017-09-27] MEDS ORDERED: CARBOHYDRATES FOR HYPOGLYCEMIA PO PRN ×2 (06:15→06:45)
[2017-09-27] MEDS ORDERED: DEXTROSE 50% 50 ML SYR IV PRN ×2 (06:15→06:45)
[2017-09-27] MEDS ORDERED: GLUCOSE 40% GEL 15 GM TUBE PO PRN ×2 (06:15→06:45)
[2017-09-27] MEDS ORDERED: GLUCOSE 10 TABS/TUBE PO PRN ×2 (06:15→06:45)
[2017-09-27] MEDS ORDERED: VANCOMYCIN IV 2,500 MG in SODIUM CHLORIDE 0.9% 500ML 500 ML IV STA (06:20)
[2017-09-27 06:26] LABS: PTT PATIENT 32.4 SECONDS (21.0-31.0)
[2017-09-27] MEDS ORDERED: VANCOMYCIN CONSULT ACTIVE PRN (06:30)
[2017-09-27] MEDS ORDERED: LEVALBUTEROL/IPRATROPIUM NEB INH PRN (06:30)
[2017-09-27 06:31] LABS: ALBUMIN 3.7 gm/dl (3.4-5.0); TOTAL PROTEIN 8.3 gm/dl (6.4-8.2)
--- NOTE | 2017-09-27 06:31 | DIAGNOSTIC IMAGING REPORT ---
CHEST ONE VIEW PORTABLE CLINICAL HISTORY: sob dyspnea COMPARISON STUDY: 09/16/2017 FINDINGS: Bilateral parenchymal fibrotic change considered chronic. Diaphragms are smooth. Central catheter in the right atrium. IMPRESSION: Unchanged exam. Unchanging bilateral parenchymal fibrotic change. The above report was generated using voice recognition software. It may contain grammatical, syntax or spelling errors. Electronically signed by: Manfred Noriega M.D. 09/27/2017 6:30 AM Dictated Date/Time: 09/27/2017 6:29 AM
[2017-09-27] MEDS ORDERED: DOXYCYCLINE IV 100 MG in DEXTROSE 5% 100ML 100 ML IV SCH (06:32)
[2017-09-27] MEDS ORDERED: GLUCAGON FOR INJ 1 MG VIAL SQ PRN (06:45)
[2017-09-27] MEDS ORDERED: NITROGLYCERIN 0.4 MG SL PER TAB CHARGE SL PRN (06:45)
[2017-09-27] MEDS ORDERED: LEVALBUTEROL 1.25MG/0.5ML NEB INH PRN (06:45)
[2017-09-27] MEDS ORDERED: IPRATROPIUM BROMIDE NEB SOLN 0.02% 2.5 ML VIAL INH PRN (06:45)
[2017-09-27] MEDS ORDERED: PROCHLORPERAZINE INJ 5 MG in SYRINGE 4 ML IV PRN (06:45)
[2017-09-27 06:55] LABS: HEMOGLOBIN A1C 5.5 % (4.5-5.6)
[2017-09-27] MEDS ORDERED: LACTATED RINGER'S 1000ML 1,000 ML IV ONE (07:00)
[2017-09-27] MEDS ORDERED: PIPERACILL/TAZOBAC CONSULT ACTIVE PRN (07:15)
--- NOTE | 2017-09-27 07:44 | HISTORY & PHYSICAL EXAMINATION ---
DATE OF ADMISSION: 09/27/2017 PRIMARY CARE DOCTOR: Dr. Adam. CHIEF COMPLAINT: Shortness of breath and cough. HISTORY OF PRESENT ILLNESS: History obtained from patient, sister, and records. Medical history significant for chronic respiratory failure secondary to COPD/ ILD on home O2, history of past tobacco and alcohol abuse, history of urinary incontinence, chronic hep C, schizoaffective disorder, history of MRSA, orthostatic hypotension on Midodrine, history of esophageal dysfunction, hx DVT sp Coumadin. Recent confinement last week for UTI/fall. Urine CS grew citrobacter. Patient discharged home on cefdinir course. Three days history of cough symptoms, productive of brownish-greenish sputum. increasing shortness of breath, no fever, no chills, occasional coughing from swallowing issues if she's not careful as per patient. Worsening shortness of breath, no chest pain. No emesis. Home O2 not enough as per patient. Patient received Solu-Medrol and Albuterol at the ER. MEDICAL HISTORY: As above. A 2D echo from April 2017 showed EF of 60%, LVH, grade 1 diastolic dysfunction PAST SURGICAL HISTORY: She has had back surgery, hysterectomy, cataract surgery, tonsillectomy. HOME MEDICATIONS: Include Celebrex, Omnicef caution with sodium, escitalopram, ferrous sulfate, Ellipta, fenofibrate, Flonase, folic acid, gabapentin, home O2, milk of mag, vitamin K2, midodrine, montelukast, Zantac, Senokot-S, tamsulosin, Ellipta, Reclast, Ventolin, Wellbutrin, Klonopin, clozapine. ALLERGIES: ALLERGIC TO FLUPHENAZINE, HALDOL, HYDROCODONE, HYDROXYZINE, LITHIUM, MOLINDONE, OXYCODONE, MORPHINE. FAMILY HISTORY: Heart disease. PERSONAL AND SOCIAL HISTORY: Past tobacco/ETOH abuse. On disability. Lives at the basement of home; patient mother and sister live above her. REVIEW OF SYSTEMS: As per HPI, all 10 systems reviewed, all other ROS negative. PHYSICAL EXAMINATION: VITAL SIGNS: Blood pressure was noted to be 125/70, pulse rate 124, RR 26, temperature 37, sats 86 on room air, later 94 on 4 liters. GENERAL: Noted to be respiratory distress, looks older for stated age. Obese. SKIN: Normal color, warm. HEENT: [place] palpebral conjunctivae. No ptosis. Dry mucosa. O2 mask in place NECK: Short, supple. CHEST: Decreased breath sounds. Rhonchi, left greater than right. HEART: Tachycardic. No murmur. ABDOMEN: Some distention, non-tender. EXTREMITIES: No edema, no tenderness. No gross deformities. NEUROLOGIC: Coherent. No gross focality. LABORATORY DATA: Hemoglobin was noted to be 14, hematocrit 45, white cell count is 19, platelets 211. Sodium 140, K 3.7, chloride 109, CO2 21, BUN 24, creatinine 1. Glucose was noted to be 154. Troponin negative ABG, pH 7.41, pCO2 of 41, pO2 of 83, 96% on 8 liters. Chest x-ray as per my interpretation, bilateral interstitial infiltrates present from September 16 study. EKG as per my interpretation, rate 135, sinus tachycardia, RAD, LPFB, Q waves inferior leads. ASSESSMENT: 1. Acute on chronic hypoxemic respiratory failure secondary to COPD/ILD exacerbation/complicated bronchitis possible aspiration pneumonitis (known aspiration risk, hx esophageal dysfunction as per records) 2. sepsis secondary to above 3. past tobacco/ETOH abuse 4. orthostatic hypotension on Midodrine 5. chronic HCV as per records 6. schizophrenia, stable on regimen 7. hyperglycemia possible prediabetes Hemoglobin A1c from 2013 was 5.7. 8. hx DVT sp Coumadin 9. hx MRSA 10. Possible functional disability Patient's sister worried about patient compliance issues/ability to take care of self in current living situation. PLAN: PCU supplemental O2 CS, Doxycycline, Zosyn nebs, Prednisone course. IVF aspiration precautions. Pulmonary consult RE acute on chronic respiratory failure. ISS BG goal 140-180. May need basal insulin to attain goal in light of steroid rx, check hemoglobin A1c. PT, OT eval. DVT prophylaxis Lovenox subcu Full code. Total critical care time was 50 minutes. Patient sister requesting for updates from providers. Ms. Peyton Tello thru [phone]. [facility]
[2017-09-27] MEDS: IPRATROPIUM BROMIDE NEB SOLN 0.02% 2.5 ML VIAL INH SCH ×2 (08:18→19:01)
[2017-09-27] MEDS: LEVALBUTEROL 1.25MG/0.5ML NEB INH SCH ×2 (08:18→19:01)
[2017-09-27] MEDS ORDERED: INSULIN ASPART 100 UNITS/ML 3 ML PEN SC SCH (08:30)
[2017-09-27] MEDS ORDERED: LACTATED RINGER'S 1000ML 1,000 ML IV SCH (08:45)
[2017-09-27] MEDS ORDERED: LEVALBUTEROL/IPRATROPIUM NEB INH SCH (09:00)
[2017-09-27] MEDS: FLUTICASONE PROPIONATE NA SPR 16 GM BTL NAE SCH (09:40)
[2017-09-27] MEDS: DOCUSATE SODIUM/SENNA 50/8.6MG TAB PO SCH ×2 (09:41→20:32)
[2017-09-27] MEDS: CLOZAPINE 100 MG TAB PO SCH ×3 (09:41→20:35)
[2017-09-27] MEDS: RANITIDINE HCL 150 MG TAB PO SCH ×2 (09:41→20:35)
[2017-09-27] MEDS: ESCITALOPRAM OXALATE 20 MG TAB PO SCH (09:42)
[2017-09-27] MEDS: GABAPENTIN 400 MG CAP PO SCH ×3 (09:43→20:32)
[2017-09-27] MEDS: FENOFIBRATE 48 MG TAB PO SCH (09:44)
[2017-09-27] MEDS: BuPROPion SR 100 MG TABCR PO SCH (09:45)
[2017-09-27] MEDS: CeleBREX 200 MG CAP PO SCH (09:45)
[2017-09-27] MEDS: MIDODRINE 10 MG TAB PO SCH ×3 (09:46→17:48)
[2017-09-27] MEDS: ENOXAPARIN 40 MG/0.4 ML SYR SC SCH (09:46)
[2017-09-27] MEDS: FERROUS SULFATE 325 MG TAB PO SCH ×2 (09:46→17:47)
[2017-09-27] MEDS: CLONAZEPAM 0.5 MG TAB PO SCH ×3 (10:02→20:54)
[2017-09-27] MEDS: PIPERACILL/TAZOBAC IV 4.5 GM in D5W 100 ML IV SCH ×2 (12:03→20:30)
[2017-09-27] MEDS: INSULIN ASPART 100 UNITS/ML 3 ML PEN SC SCH ×3 (12:14→20:59)
--- NOTE | 2017-09-27 12:23 | Pulmonary Consultation ---
History General Date of Service: Sep 27, 2017. Stated Complaint: Respiratory Failure, Hkqgh-Rz-Mgxyhni HPI The patient is a 56 year old female who presents to [facility] with complaints of Respiratory Failure, Xxmwi-Qi-Hbzchoi. The patient's primary care provider is Naveed Adam III, M.D.. [age] year female admitted with progressive shortness of breath who noted increasing dyspnea at rest with a productive cough over the last 3 days. She woke up at 3 in the morning on the day of admission noting severe shortness of breath with no resolution after breathing treatments. She notes that her sputum has been brownish to green over the last 3-4 days. On admission to the emergency room she had an SaO2 of 86-895% with 86% on room air. Her pulse was in the 120s and respiratory rate in the mid 20s. During our conversation the patient notes she is almost back to her baseline but still has intermittent brown to green sputum production. She denies: Fever, chills, of chest pain, pleurisy, unintentional weight loss, B type symptoms, classic cardiac chest pain or hemoptysis. Current in hospital workup: WBC: 20K (Neutro: 88%) AB.41/41/83/25 with A-a gradient 187 Procalcitonin: 0.05 CXR: Compared to 09/16/2017, unchanged exam, bilateral parenchymal fibrotic changes EKG: Sinus tachycardia rate 120 possible left posterior fascicular block but no signs of acute ischemia noted Previous workup: Microbiology history Urine: Lactobacillus species, multi-drug resistant E coli, Enterococcus faecalis, Morganella morganii, Enterobacter cloacae, Klebsiella oxytoca, Klebsiella pneumoniae, stenotrophomonas maltophilia, Skin: Coag-negative staph, corynebacterium, MSSA, Citrobacter Freundii Echocardiogram 05/23/2017 LV: EF= 60-65%, LVH RV: TAPSE > 1.5cm Grade 1 diastolic dysfunction/abnormal relaxation pattern CTA chest 08/27/2017 No pulmonary emboli Bilateral upper and lower lobe parenchymal changes with traction bronchiectasis and left lower lobe honeycombing versus cystic changes Possible foreign body versus mucus within the trachea CTA chest 11/02/2012 Diffuse interstitial changes with traction bronchiectasis in the upper and lower lobes bilaterally Barium swallow/video swallow 07/12/2017 Penetration of thin liquids and no signs of brooke aspiration Lateral diverticulum in the cervical esophagus Pulmonary function study 07/04/2016 06/09/2013 11/28/2012 FEV1/FVC: 83% 81% 81% FEV1: 1.49/50% 1.83/72% 2.0/72% FVC: 1.8/54% 2.27/65% 2.47/70% T.61/73% 3.72/73% RV: 1.81/96% 1.22/65% DLCO: 22% 34% 6 MINUTE-WALK STUDY 07/04/2016: Low saturation 86% at 3 minutes PmHx: 1. Chronic Schizoaffective Disorder With Residual Symptoms 2. Depression 3. History of aspiration pneumonia 4. COPD 5. Oxygen-dependent 2-3 L/nasal cannula 6. DVT 7. Nocturnal hypoxemia (2 liters/minute) 8. Osteoporosis 9. Urinary retention/neurogenic bladder/incomplete emptying of bladder 10. Interstitial lung disease 11. GERD 12. History of accidental overdose 13. History of alcohol abuse 14. History of head concussion 15. History of seizure activity 16. History of narcotic dependence secondary to chronic pain 17. Hypoxemia/oxygen dependent 18. Hepatitis-C carrier 19. Closed fracture of femur 20. Mammogram abnormal 21. History of osteomyelitis 22. Osteoporosis 23. History of suicidal ideation 24. Postmenopausal atrophic vaginitis 25. Postmenopausal bleeding 26. Urinary tract infection 27. Vulvar atrophy (N90.5) 28. Well woman exam with routine gynecological exam 29. Kyphoscoliosis PsHx: 1. Back Surgery June 2015 2. History of Total Abdominal Hysterectomy With Removal Of Both Ovaries 3. Femoral fracture s/p ORIF 4. Colonoscopy 5. Hysterectomy 6. Tonsillectomy Social History tobacco: Former smoker, 1ppd x 40 yrs quit 01/26/2014 Alcohol: history of alcohol abuse (last EtOH 1994; attends [employer]) Marital status: Single Occupation: Disabled Illicit drugs: history of narcotic addiction due to chronic pain; attends [employer], hearing, cocaine, pills clean for the past 22 years Family History: Mother- thyroid disease Father- 66, pneumonia, stroke Sister- thyroid disease Grandmother-lung cancer Current Meds 1. Bupropion (Wellbutrin Sr), 100 MG PO QAM 2. Seavzjo-Mjdu-Upagwny D-Vitamin (Calcium Soft Chews [id number] mg-Unt-Mcg) , 1 TAB PO BID 3. Cefdinir (Omnicef), 300 MG PO BID 4. Celecoxib (Celebrex), 200 MG PO DAILY 5. Clonazepam (Klonopin), 0.5 TAB PO TID 6. Clozapine (Clozapine), 100 MG PO TID 7. Docusate Sodium (Docusate Sodium), 100 MG PO BID 8. Escitalopram Oxalate (Escitalopram Oxalate), 30 MG PO QAM 9. Fenofibrate (Fenofibrate), 48 MG PO QAM 10. Ferrous Sulfate (Ferrous Sulfate), 325 MG PO BIDM 11. Fluticasone Furoate-Vilanterol (Breo Ellipta), 1 PUFF INH QAM 12. Fluticasone Propionate (Nasal) (Flonase Allergy Relief), 2 SPRAYS JOSE QAM 13. Folic Acid (Folic Acid), 1 MG PO DAILY 14. Gabapentin (Gabapentin), 400 MG PO TID 15. Home O2 Therapy (Oxygen), 2-3 LITERS NA DIRECTED 16. Menaquinone-7 (Vitamin K2), 40 MCG PO DAILY 17. Midodrine (Midodrine HCl), 10 MG PO TID 18. Montelukast Sod (Montelukast Sodium), 10 MG PO HS 19. Ranitidine HCl (Ranitidine HCl), 150 MG PO BID 20. Sennosides-Docusate Sodium (Senna Plus), 1 TAB PO BID 21. Tamsulosin HCl (Tamsulosin HCl), 0.4 MG PO HS 22. Incruse Ellipta, 1 PUFF INH QAM (LAMA) 23. Zoledronic Acid (Reclast), 1 DOSE IV YEARLY 24. Acetaminophen (Acetaminophen), 1,000 MG PO UD PRN for Pain 25. Albuterol Hfa (Ventolin Hfa), 2 PUFFS INH Q6H PRN for SOB/Wheezing 26. Azithromycin (Zithromax), 250 MG PO UD PRN for Rescue Kit 27. Magnesium Hydroxide (Milk Of Magnesia), 30 ML PO DAILY PRN for Constipation 28. Prednisone (Prednisone), 20 MG PO UD PRN for Rescue Kit Allergies: Hydroxyzine (Verified Allergy, Unknown, UNKNOWN, 09/27/17) Fluphenazine (Verified Adverse Reaction, Intermediate, confusion, 09/27/17) Haloperidol (Verified Adverse Reaction, Intermediate, "MAKES ME GO INTO BLACKOUT", 09/27/17) Hydrocodone (Verified Adverse Reaction, Intermediate, DROWSY, 09/27/17) Molindone (Verified Adverse Reaction, Intermediate, PT FEELS LIKE SHES "JUMPING OUT OF HER Morphine and Related (Verified Adverse Reaction, Intermediate, DROWSY, 09/27/17 ) Oxycodone (Verified Adverse Reaction, Intermediate, DROWSY, 09/27/17) [place] (Verified Adverse Reaction, Mild, "LEVEL CAN GET TOO HIGH", 09/27/17) Historian: patient, EMS Review of Systems Constitutional: reports: weakness ENT: reports: no symptoms Cardiovascular: reports: as stated in HPI Respiratory: reports: as stated in HPI Gastrointestinal: reports: no symptoms Genitourinary - Female: reports: no symptoms Musculoskeletal: reports: no symptoms Neurologic: reports: no symptoms Psychiatric: reports: anxiety Endocrine: no symptoms Hematologic / Lymphatic: no symptoms Allergic / Immunologic: no symptoms Past Medical History Past Medical History: Please refer to HPI Past Medical History: COPD Past Surgical History: Please refer to HPI Family History FH: lung cancer GRANDMOTHER Thyroid disorder MOTHER SISTER Please refer to HPI Social History Please refer to HPI Hx Tobacco Use In Past Year?: No Smoking Status: Former Smoker Alcohol: history of alcohol abuse Drug Use: other Marital status: single Housing status: lives with family Occupational Status: disabled Immunizations History of Influenza Vaccine: N/A History of Tetanus Vaccine?: utd Tetanus Immunization Date: Nov 22, 2006 History of Pneumococcal: Yes Pneumococcal Date: Dec 03, 2010 History of Hepatitis B Vaccine: Yes Hepatitis Immunization Date: Dec 03, 1997 History of MDRO History of MDRO: No Allergies Coded Allergies: Hydroxyzine (Verified Allergy, Unknown, UNKNOWN, 09/27/17) INFO FROM [facility] Fluphenazine (Verified Adverse Reaction, Intermediate, confusion, 09/27/17) Haloperidol (Verified Adverse Reaction, Intermediate, "MAKES ME GO INTO BLACKOUT", 09/27/17) Hydrocodone (Verified Adverse Reaction, Intermediate, DROWSY, 09/27/17) Molindone (Verified Adverse Reaction, Intermediate, PT FEELS LIKE SHES "JUMPING OUT OF HER SKIN", 09/27/17) Morphine and Related (Verified Adverse Reaction, Intermediate, DROWSY, 09/27) px was drowsy w/ pinpoint pupils and minimally responsive. stable VS. Following Morphine IR 15mg - 3 doses in prior 24 hours. Naloxone 0.4mg admin 3 times during that period. Oxycodone (Verified Adverse Reaction, Intermediate, DROWSY, 09/27/17) [place] (Verified Adverse Reaction, Mild, "LEVEL CAN GET TOO HIGH", 09/27/17 ) Current Medications Reported Home Medications Medications Dose Route/Sig Max Daily Dose Days Date Category Dose Instructions Oxygen Gas 2-3 Liters NA DIRECTED 09/27/17 Reported 2 LITERS WITH EXERTION, 3 LITER FOR SLEEP. Celebrex (Celecoxib) 100 Mg Cap 200 Mg PO DAILY 30 09/27/17 Reported Midodrine HCl (Midodrine) 10 Mg Tab 10 Mg PO TID 09/27/17 Reported TAKES AT 0800, 1200 & 1700. Omnicef (Cefdinir) 300 Mg Cap 300 Mg PO BID 09/27/17 Reported Vitamin K2 (Menaquinone-7) 40 Mcg Tab 40 Mcg PO DAILY 09/16/17 Reported Reclast (Zoledronic Acid) 5 Mg/100 Ml Inj 1 Dose IV YEARLY 09/16/17 Reported Klonopin (Clonazepam) 0.5 Mg Tab 0.5 Tab PO TID 09/16/17 Reported Calcium Soft Chews [id number] mg-Unt-Mcg (Soqmqeq-Uetj-Rrjcfdj D-Vitamin) 1 Chw Chw 1 Tab PO BID 08/27/17 Reported Milk Of Magnesia (Magnesium Hydroxide) 30 Ml Susp 30 Ml PO DAILY PRN 08/03/17 Reported Zithromax (Azithromycin) 250 Mg Tab 250 Mg PO UD PRN 08/03/17 Reported RESCUE KIT FOLLOWS: TAKE 2 TABLETS FIRST DAY THEN ONE TABLET DAILY FOR 4 DAYS Gabapentin 400 Mg Cap 400 Mg PO TID 08/03/17 Reported Acetaminophen 500 Mg Tab 1,000 Mg PO UD PRN 08/03/17 Reported MAXIMUM 2 GM APAP DAY Prednisone 20 Mg Tab 20 Mg PO UD PRN 04/25/17 Reported RESCUE KIT FOLLOWS: TAKE 2 TABLETS (40 MG) DAILY FOR 5 DAYS THEN ONE TABLET (20 MG) DAILY FOR 5 DAYS Folic Acid 1 Mg Tab 1 Mg PO DAILY 04/25/17 Reported Docusate Sodium 100 Mg Cap 100 Mg PO BID 04/25/17 Reported Montelukast Sodium (Montelukast Sod) 10 Mg Tab 10 Mg PO HS 04/25/17 Reported Tamsulosin HCl 0.4 Mg Cap 0.4 Mg PO HS 04/25/17 Reported Clozapine 100 Mg Tab 100 Mg PO TID 04/25/17 Reported Senna Plus (Sennosides-Docusate Sodium) 1 Tab Tab 1 Tab PO BID 01/10/17 Reported Wellbutrin Sr (Bupropion HCl) 100 Mg Ertab 100 Mg PO QAM 11/26/16 Reported TAKE THIS MEDICATION WITH FOOD Ranitidine HCl 150 Mg Tab 150 Mg PO BID 10/13/16 Reported Flonase Allergy Relief (Fluticasone Propionate (Nasal)) 50 Mcg/Act Spr 2 Sprays JOSE QAM 09/12/16 Reported Ventolin Hfa (Albuterol) 200 Puffs/87351 Mcg Aers 2 Puffs INH Q6H PRN 08/31/16 Reported Breo Ellipta (Fluticasone Furoate-Vilanterol) 1 Inh Inh 1 Puff INH QAM 06/26/16 Reported RINSE MOUTH AFTER USE Incruse Ellipta (Umeclidinium [place]) 62.5 Mcg/Inh Inh 1 Puff INH QAM 06/26/16 Reported Fenofibrate 48 Mg Tab 48 Mg PO QAM 12/19/14 Reported Escitalopram Oxalate 20 Mg Tab 30 Mg PO QAM 12/19/14 Reported Ferrous Sulfate 325 Mg Tab 325 Mg PO BIDM 10/11/13 Reported Physical Physical Exam Vital Signs: Date Time Temp Pulse Resp B/P (MAP) Pulse Ox O2 Delivery O2 Flow Rate FiO2 09/27/17 11:39 36.9 120 23 118/86 (97) 94 09/27/17 08:21 121 20 95 Nasal Cannula 2.5 09/27/17 08:00 36.7 97 24 117/88 (98) 97 Nasal Cannula 2.0 09/27/17 07:30 36.7 126 24 117/88 97 Nasal Cannula 2.0 09/27/17 06:35 124 26 100 09/27/17 06:28 26 111/99 100 Nebulizer 8.0 09/27/17 05:07 36.9 124 23 125/77 95 Nasal Cannula 4.0 09/27/17 05:02 125 09/27/17 05:00 93 Nasal Cannula 4.0 8/2/18 04:59 86 Room Air 09/27/17 04:59 93 Nasal Cannula 4.0 General Appearance: NO APPARENT DISTRESS Head: NORMOCEPHALIC, ATRAUMATIC Eyes: PERRLA, NO DISCHARGE, EOMI, SCLERAE NORMAL, CONJUNCTIVAE NORMAL ENT: NORMAL EAR EXAM, NORMAL NASAL EXAM, other (Only able to get a limited view of her oropharynx as she has inability open up her mouth past 2 fingers and has a Mallampati of 3) Neck: NORMAL RANGE OF MOTION, NO TENDERNESS, TRACHEA MIDLINE, NO STRIDOR Respiratory: other (Diffuse wheezing with some rhonchi appreciated the bases) Cardiovasular: REGULAR RATE/RHYTHM Diagnostics Labs Results Past 24 Hours Test 09/27/17 05:05 09/27/17 05:35 09/27/17 06:29 09/27/17 07:58 Range/Units White Blood Count 19.54 4.8-10.8 K/uL Red Blood Count 4.73 4.2-5.4 M/uL Hemoglobin 14.8 12.0-16.0 g/dL Hematocrit 45.4 37-47 % Mean Corpuscular Volume 96.0 80-100 fL Mean Corpuscular Hemoglobin 31.3 25-34 pg Mean Corpuscular Hemoglobin Concent 32.6 32-36 g/dl Platelet Count 211 130-400 K/uL Mean Platelet Volume 10.3 7.4-10.4 fL Neutrophils (%) (Auto) 88.3 % Lymphocytes (%) (Auto) 8.5 % Monocytes (%) (Auto) 2.7 % Eosinophils (%) (Auto) 0.0 % Basophils (%) (Auto) 0.1 % Neutrophils # (Auto) 17.27 1.4-6.5 K/uL Lymphocytes # (Auto) 1.66 1.2-3.4 K/uL Monocytes # (Auto) 0.52 0.11-0.59 K/uL Eosinophils # (Auto) 0.00 0-0.5 K/uL Basophils # (Auto) 0.02 0-0.2 K/uL RDW Standard Deviation 48.2 36.4-46.3 fL RDW Coefficient of Variation 13.7 11.5-14.5 % Immature Granulocyte % (Auto) 0.4 % Immature Granulocyte # (Auto) 0.07 0.00-0.02 K/uL Activated Partial Thromboplast Time 32.4 21.0-31.0 SECONDS Partial Thromboplastin Ratio 1.2 Sodium Level 141 136-145 mmol/L Potassium Level 3.8 3.5-5.1 mmol/L Chloride Level 109 98-107 mmol/L Carbon Dioxide Level 25 21-32 mmol/L Anion Gap 7.0 3-11 mmol/L Blood Urea Nitrogen 24 7-18 mg/dl Creatinine 1.07 0.60-1.20 mg/dl Est Creatinine Clear Calc Drug Dose 65.1 ml/min Estimated GFR () 66.7 Estimated GFR (Non- 57.6 BUN/Creatinine Ratio 22.8 10-20 Random Glucose 154 70-99 mg/dl Estimated Average Glucose 111 mg/dl Hemoglobin A1c 5.5 4.5-5.6 % Calcium Level 9.6 8.5-10.1 mg/dl Magnesium Level 1.8 1.8-2.4 mg/dl Total Bilirubin 0.3 0.2-1 mg/dl Direct Bilirubin 0.1 0-0.2 mg/dl Aspartate Amino Transf (AST/SGOT) 22 15-37 U/L Alanine Aminotransferase (ALT/SGPT) 27 12-78 U/L Alkaline Phosphatase 67 45-117 U/L Troponin I < 0.015 0-0.045 ng/ml Pro-B-Type Natriuretic Peptide 53 0-900 pg/ml Total Protein 8.3 6.4-8.2 gm/dl Albumin 3.7 3.4-5.0 gm/dl Procalcitonin 0.05 0-0.5 ng/ml Bedside Lactic Acid Venous 1.49 0.90-1.70 mmol/L Arterial Blood pH 7.41 7.35-7.45 Arterial Blood Partial Pressure CO2 41 35-46 mmHg Arterial Blood Partial Pressure O2 83 80-95 mm/Hg Arterial Blood HCO3 25 19-24 mmol/L Arterial Blood Oxygen Saturation 96.2 90-95 % Arterial Blood Base Excess 0.3 -9-1.8 mEq/L Arterial Blood Gas Delivery 8L Anirudh Test POS POS Bedside Glucose 185 70-90 mg/dl Test 09/27/17 11:17 Range/Units Bedside Glucose 205 70-90 mg/dl Microbiology Results 09/27/17 Blood Culture, Received Pending 09/27/17 Blood Culture, Received Pending Diagnostic Radiology Please refer to HPI EKG Please refer to HPI Impression Assessment and Plan 56-year-old female presenting with acute on chronic respiratory insufficiency and leukocytosis: 1. Leukocytosis: Patient initially started on levofloxacin 750 mg IV in the ED. Currently on doxycycline and Zosyn. The patient's procalcitonin is within normal limits but she does have a notable leukocytosis and diffuse changes on her CXR which could easily high at an underlying infection. I do believe least a 5-7 day course of antibiotics is warranted in this patient. If she does produce any sputum will send off for sputum culture. Patient has had recurrent UTIs and will send off for yeast urinary analysis as well. 2. Abnormal CT: Reviewing the patient's pulmonary notes as well as previous pulmonary function studies and CT imaging is I do agree that a lung biopsy is highly appropriate in this person to evaluate for possible interstitial lung disease. I would suggest axis surgical lung biopsy at this time but it appears that this is being worked up as an outpatient and possibly moved to [place]. If the family in team decided to move forward at the [facility] would suggest contacted Dr. John Regan when the patient is stable and moving forward with surgical lung biopsy at that time. 3. Esophagus: Patient does have a lateral diverticulum and the esophagus suggesting a [place]- [place] diverticulum. These have been noted to be associated with increasing risk of GERD and possibly even chronic fibrosis of the lung. It would not be consistent with the patient's current CT pattern as there is upper lobe changes as well as gravity dependent changes. An outpatient Andrade study is warranted for further evaluation.
[2017-09-27] MEDS: DOXYCYCLINE IV 100 MG in DEXTROSE 5% 100ML 100 ML IV SCH (20:31)
[2017-09-27] MEDS: MONTELUKAST SOD 10 MG TAB PO SCH (20:35)
[2017-09-27] MEDS: TAMSULOSIN HCL 0.4 MG CAP PO SCH (20:36)
[2017-09-27] MEDS: ACETAMINOPHEN 325 MG TAB PO PRN (21:49)
[2017-09-27] MEDS: TRAMADOL HCL 50 MG TAB PO PRN (23:55)
[2017-09-28] VITALS (10 sets, daily range): BP systolic 97–128; BP diastolic 69–81; PULSE 78–101; TEMP 36.6–37; O2SAT 93–98
[2017-09-28] MEDS: LEVALBUTEROL 1.25MG/0.5ML NEB INH SCH ×4 (02:18→19:31)
[2017-09-28] MEDS: IPRATROPIUM BROMIDE NEB SOLN 0.02% 2.5 ML VIAL INH SCH ×4 (02:18→19:31)
[2017-09-28] MEDS: PIPERACILL/TAZOBAC IV 4.5 GM in D5W 100 ML IV SCH ×3 (04:56→20:21)
[2017-09-28 05:54] LABS: BASO % 0.1 %; BASO ABS # 0.01 K/uL (0-0.2); EOS % 0.1 %; EOS ABS # 0.02 K/uL (0-0.5); HEMATOCRIT 37.2 % (37-47); HEMOGLOBIN 12.1 g/dL (12.0-16.0); IG# 0.08 K/uL (0.00-0.02); LYMPH % 7.9 %; LYMPH ABS # 1.54 K/uL (1.2-3.4); MEAN CELL VOLUME 96.6 fL (80-100); MEAN CORPUSCULAR HEMOGLOBIN 31.4 pg (25-34); MEAN CORPUSCULAR HGB CONC 32.5 g/dl (32-36); MONO % 6.4 %; MONO ABS # 1.24 K/uL (0.11-0.59); NEUT % 85.1 %; NEUT ABS # 16.59 K/uL (1.4-6.5); PLATELET COUNT 196 K/uL (130-400); WHITE BLOOD COUNT 19.48 K/uL (4.8-10.8)
[2017-09-28 06:20] LABS: CREATININE 0.92 mg/dl (0.60-1.20)
[2017-09-28] MEDS: MIDODRINE 10 MG TAB PO SCH ×3 (06:37→17:06)
[2017-09-28] MEDS: DOXYCYCLINE IV 100 MG in DEXTROSE 5% 100ML 100 ML IV SCH ×2 (08:06→21:05)
[2017-09-28] MEDS: INSULIN ASPART 100 UNITS/ML 3 ML PEN SC SCH ×4 (08:12→21:10)
[2017-09-28] MEDS: INSULIN GLARGINE SOLOSTAR 100 UNITS/ML 3 ML PEN SC SCH (08:13)
[2017-09-28] MEDS: CLONAZEPAM 0.5 MG TAB PO SCH ×3 (08:14→21:06)
[2017-09-28] MEDS: TRAMADOL HCL 50 MG TAB PO PRN ×3 (08:15→23:05)
[2017-09-28] MEDS: FERROUS SULFATE 325 MG TAB PO SCH ×2 (08:15→16:15)
[2017-09-28] MEDS: FLUTICASONE PROPIONATE NA SPR 16 GM BTL NAE SCH (08:15)
[2017-09-28] MEDS: CLOZAPINE 100 MG TAB PO SCH ×3 (08:16→21:07)
[2017-09-28] MEDS: CeleBREX 200 MG CAP PO SCH (08:16)
[2017-09-28] MEDS: GABAPENTIN 400 MG CAP PO SCH ×3 (08:17→21:08)
[2017-09-28] MEDS: ESCITALOPRAM OXALATE 20 MG TAB PO SCH (08:17)
[2017-09-28] MEDS: RANITIDINE HCL 150 MG TAB PO SCH ×2 (08:18→21:08)
[2017-09-28] MEDS: DOCUSATE SODIUM/SENNA 50/8.6MG TAB PO SCH ×2 (08:18→21:08)
[2017-09-28] MEDS: ENOXAPARIN 40 MG/0.4 ML SYR SC SCH (08:18)
[2017-09-28] MEDS: FENOFIBRATE 48 MG TAB PO SCH (08:19)
[2017-09-28] MEDS: BuPROPion SR 100 MG TABCR PO SCH (08:19)
--- NOTE | 2017-09-28 13:43 | DIAGNOSTIC IMAGING REPORT ---
(CHEST) THORAX WITHOUT CT DOSE: 610.35 mGy.cm CLINICAL HISTORY: 56 years-old Female with Atelectasis versus infiltrate. Acute shortness of breath with bilateral opacities seen on comparison chest radiograph suggesting atelectasis or pneumonia TECHNIQUE: Multiaxial CT images of the chest were performed without contrast. A dose lowering technique was utilized adhering to the principles of ALARA. COMPARISON: Chest radiograph 09/27/2017, CTA chest 08/27/2017. FINDINGS: No large thyroid nodule identified. Evaluation for adenopathy is limited without the use of IV contrast. No definite pathologically enlarged lymph nodes of the chest. Heart is upper limits of normal in size. Right subclavian Ftmyds-p-Qqjv catheter is noted terminating in the right atrium. Mild calcification of the aorta without aneurysm. Main pulmonary artery is dilated measuring up to 3.2 cm transversely. There is no pneumothorax or pleural effusion identified. Bilateral reticular and groundglass opacities are noted with traction bronchiectasis and bilateral cystic change seen on both the upper and lower lobes. There is relative sparing of the right middle lobe and lateral basal segment right lower lobe There is no significant change from the comparison study from 08/27/2017. No definite lobar airspace consolidation to suggest pneumonia. Mild superior elevation/retraction of the jerald from the upper lobe scarring. No suspicious pulmonary nodules or masses identified. Mild layering secretions are noted about the tracheobronchial tree. Fatty infiltration of the liver. No acute process of the imaged abdomen. Left nephrolithiasis. Moderate formed stool throughout the colon suggests constipation. Small sliding-type hiatal hernia. Soft tissues are unremarkable. Interbody nina and screw fusion hardware with remote compression deformity about the thoracic spine appear unchanged. Levoscoliosis of the lower thoracic spine. IMPRESSION: 1. Redemonstration of bilateral reticular and groundglass opacities with traction bronchiectasis and pulmonary cystic change involving both the upper and lower lobes. Findings are compatible with interstitial lung disease with suggested superimposed atelectasis. 2. No definite focal airspace consolidation to suggest pneumonia. 3. No pleural effusion or pathologically enlarged lymph nodes. 4. Hepatomegaly. 5. Nonobstructing left nephrolithiasis. 6. Additional findings as above. Electronically signed by: Jeanmarie Sharp M.D. 09/28/2017 1:41 PM Dictated Date/Time: 09/28/2017 1:28 PM
--- NOTE | 2017-09-28 14:13 | Pulmonology Progress Note ---
Pulmonary Progress Note Date of Service Sep 28, 2017. Attending Dr. Denton Subjective Patient did not complain of active shortness of breath but was easily distracted during our conversation. Objective Patient was sitting up in a chair showing no signs of respiratory insufficiency such as accessory muscle use and/or tachypnea during her long conversation. The patient did appear mildly distracted today as it was difficult to have her focus on the subject our conversation. PsHx: Back surgery June 2015, total abdominal hysterectomy with bilateral salpingo-oophorectomy, femoral fracture status post ORIF, colonoscopy, tonsillectomy Social history: Former tobacco smoker 1 pack per day times 40 years quit 2013, history of alcohol abuse discontinue 1994, history of narcotic addiction due to chronic pain meds Physical exam: Stable on 2 liters nasal cannula Respiratory: Inspiratory expiratory rales appreciated bilaterally Cardiac: S1-S2 distant heart sounds Abdomen: Positive bowel sounds soft nontender Extremities: 1+ pitting edema [employer]: Globally intact no signs of focal deficit Labs WBC: 19K MRSA nasal screen, negative Pulmonary Medications 1.: Montelukast 10 mg 2. Doxycycline 100 mg b.i.d. 3. Zosyn 4.5 G IM t.i.d. 4. Prednisone 40 mg daily 5. Xopenex/Atrovent nebulizer 6. Fluticasone nasal spray 7. Ranitidine 150 mg b.i.d. 8. Lovenox 40 mg subcu 24 hours Assessment & Plan 56-year-old female presented with acute on chronic respiratory insufficiency and leukocytosis: 1. Leukocytosis: The etiology of this patient's leukocytosis is currently unknown but high likelihood of underlying pulmonary infection. Patient is currently spur on went to current antibiotics and will continue. I would like to obtain a high-resolution CT scan of the patient's lung for further evaluation. 2. ILD: Patient does have a abnormal thoracic CT scan as well as a decreased diffusion capacity out of proportion to her spirometry. Once again I do agree with moving forward with lung biopsy but suggest surgical lung biopsy which can be performed by Dr. John Regan here at the [facility]. 3. Esophagus: Patient does have a lateral diverticulum and the esophagus suggesting a [place] diverticulum. These have been noted to be associated with increasing risk of GERD and possibly even chronic fibrosis of the lung. It would not be consistent with the patient's current CT pattern as there is upper lobe changes as well as gravity dependent changes. An outpatient [place] study is warranted for further evaluation. Data Medications: Current Inpatient Medications Medications (Trade) Dose Ordered Sig/Janel Route Start Time Stop Time Status Last Admin Dose Admin Insulin Glargine (Lantus Solostar Pen) 10 units DAILY SC 09/28/17 09:00 10/28/17 08:59 09/28/17 08:13 10 UNITS Glucose (Glucose 40% Gel) 15-30 GRAMS 15 GRAMS... UD PRN PO 09/27/17 06:15 10/27/17 06:14 Glucose (Glucose Chew Tab) 4-8 Tablets 4 Tabl... UD PRN PO 09/27/17 06:15 10/27/17 06:14 Dextrose (Dextrose 50% 50ML Syringe) 25-50ML 25ML FOR ... UD PRN IV 09/27/17 06:15 10/27/17 06:14 Glucagon (Glucagon Inj) 1 mg UD PRN IM 09/27/17 06:15 10/27/17 06:14 Carbohydrates (Carbohydrates For Hypoglycemia) 15-30 GRAMS 15 grams if BSG 54-69... UD PRN PO 09/27/17 06:15 10/27/17 06:14 Prednisone (PredniSONE TAB) 40 mg DAILY PO 09/27/17 09:00 10/02/17 08:59 09/28/17 08:18 40 MG Ipratropium [place] (Atrovent 0.02% 0.5MG/2.5ML Neb) 0.5 mg Q6R INH 09/27/17 09:00 10/27/17 08:59 09/28/17 06:59 0.5 MG Levalbuterol (Xopenex 1.25MG/ 0.5ML Neb) 1.25 mg Q6R INH 09/27/17 09:00 10/27/17 08:59 09/28/17 06:59 1.25 MG Ipratropium [place] (Atrovent 0.02% 0.5MG/2.5ML Neb) 0.5 mg Q4H PRN INH 09/27/17 06:45 10/27/17 06:44 Levalbuterol (Xopenex 1.25MG/ 0.5ML Neb) 1.25 mg Q4H PRN INH 09/27/17 06:45 10/27/17 06:44 Bupropion HCl (Wellbutrin-Sr Tab) 100 mg QAM PO 09/27/17 09:00 10/27/17 08:59 09/28/17 08:19 100 MG Celecoxib (CeleBREX CAP) 200 mg DAILY PO 09/27/17 09:00 10/27/17 08:59 09/28/17 08:16 200 MG Clonazepam (Klonopin Tab) 0.25 mg TID PO 09/27/17 09:00 10/27/17 08:59 09/28/17 08:14 0.25 MG Clozapine (Clozaril Tab) 100 mg TID PO 09/27/17 09:00 10/27/17 08:59 09/28/17 08:16 100 MG Escitalopram Oxalate (Lexapro Tab) 30 mg QAM PO 09/27/17 09:00 10/27/17 08:59 09/28/17 08:17 30 MG Fenofibrate (Tricor Tab) 48 mg QAM PO 09/27/17 09:00 10/27/17 08:59 09/28/17 08:19 48 MG Fluticasone Propionate (Flonase Nasal [place]) 2 sprays QAM JOSE 09/27/17 09:00 10/27/17 08:59 09/28/17 08:15 2 SPRAYS Folic Acid (Folvite Tab) 1 mg DAILY PO 09/27/17 09:00 10/27/17 08:59 09/28/17 08:17 1 MG Gabapentin (Neurontin Cap) 400 mg TID PO 09/27/17 09:00 10/27/17 08:59 09/28/17 08:17 400 MG Midodrine (Proamatine Tab) 10 mg TID@0600,1200,1800 PO 09/27/17 09:00 10/27/17 08:59 09/28/17 12:00 10 MG Montelukast Sodium (Singulair Tab) 10 mg HS PO 09/27/17 21:00 10/27/17 20:59 09/27/17 20:35 10 MG Ranitidine HCl (zANTac TAB) 150 mg BID PO 09/27/17 09:00 10/27/17 08:59 09/28/17 08:18 150 MG Senna/Docusate Sodium (Senokot S Tab) 1 tab BID PO 09/27/17 09:00 10/27/17 08:59 09/28/17 08:18 1 TAB Tamsulosin HCl (Flomax Cap) 0.4 mg HS PO 09/27/17 21:00 10/27/17 20:59 09/27/17 20:36 0.4 MG Ferrous Sulfate (Feosol Tab) 325 mg BIDM PO 09/27/17 08:45 10/27/17 08:44 09/28/17 08:15 325 MG Miscellaneous Information (Consult) 1 ea UD PRN N/A 09/27/17 07:15 10/27/17 07:14 Tramadol HCl (Ultram Tab) 25 mg Q6H PRN PO 09/27/17 06:45 10/27/17 06:44 09/28/17 08:15 25 MG Insulin Aspart (novoLOG ASPART) SLIDING SCALE If C... ACHS SC 09/27/17 11:00 10/27/17 10:59 09/28/17 08:12 4 UNITS Prochlorperazine Edisylate 5 mg/ Syringe 5 ml @ 5 mls/min Q6H PRN IV 09/27/17 06:45 10/27/17 06:44 Enoxaparin Sodium (Lovenox Inj) 40 mg Q24H SC 09/27/17 09:00 10/27/17 08:59 09/28/17 08:18 40 MG Acetaminophen (Tylenol Tab) 650 mg Q4H PRN PO 09/27/17 06:45 10/27/17 06:44 09/27/17 21:49 650 MG Nitroglycerin (Nitrostat Tab) 0.4 mg UD PRN SL 09/27/17 06:45 10/27/17 06:44 Doxycycline Hyclate 100 mg/ Dextrose 110 ml @ 50 mls/hr BID IV 09/27/17 21:00 10/04/17 20:59 09/28/17 08:06 50 MLS/HR Piperacillin Sod/ Tazobactam Sod 4.5 gm/Dextrose 120 ml @ 30 mls/hr Q8H IV 09/27/17 12:00 10/04/17 11:59 09/28/17 11:59 30 MLS/HR Heparin Sodium (Porcine) (Heparin 100 Unit/ml 5ml Flush) 5 ml PRN PRN IV 09/28/17 03:15 10/28/17 03:14 Vital Signs: Date Time Temp Pulse Resp B/P (MAP) Pulse Ox O2 Delivery O2 Flow Rate FiO2 09/28/17 11:40 36.6 100 16 113/76 (88) 96 09/28/17 08:00 Nasal Cannula 2.0 09/28/17 07:49 36.7 101 16 104/71 (82) 94 Nasal Cannula 09/28/17 06:59 86 16 96 Nasal Cannula 2.0 09/28/17 03:05 36.6 87 15 97/69 (78) 95 Nasal Cannula 2.0 09/28/17 02:18 78 16 98 Nasal Cannula 2.0 09/27/17 23:59 Nasal Cannula 2.0 09/27/17 23:50 36.5 79 18 103/70 (81) 93 Nasal Cannula 2.0 09/27/17 19:04 79 21 96 Nasal Cannula 2.0 09/27/17 18:52 36.5 78 20 146/93 (110) 96 Nasal Cannula 2.0 09/27/17 16:27 36.6 98 17 143/69 (93) 94 Nasal Cannula 2.0 09/27/17 16:00 94 Nasal Cannula 2.0 Laboratory Results: Last 24 Hours Test 09/27/17 15:45 09/27/17 16:16 09/27/17 20:01 09/28/17 01:15 Urine Color YELLOW YELLOW Urine Appearance CLEAR CLEAR Urine pH 6.0 7.5 Urine Specific [place] 1.011 1.010 Urine Protein NEG NEG Urine Glucose (UA) TRACE NEG Urine Ketones NEG NEG Urine Occult Blood NEG NEG Urine Nitrite NEG NEG Urine Bilirubin NEG NEG Urine Urobilinogen NEG NEG Urine Leukocyte Esterase NEG NEG Bedside Glucose 202 mg/dl 170 mg/dl Test 09/28/17 05:26 09/28/17 07:14 White Blood Count 19.48 K/uL Red Blood Count 3.85 M/uL Hemoglobin 12.1 g/dL Hematocrit 37.2 % Mean Corpuscular Volume 96.6 fL Mean Corpuscular Hemoglobin 31.4 pg Mean Corpuscular Hemoglobin Concent 32.5 g/dl Platelet Count 196 K/uL Mean Platelet Volume 10.0 fL Neutrophils (%) (Auto) 85.1 % Lymphocytes (%) (Auto) 7.9 % Monocytes (%) (Auto) 6.4 % Eosinophils (%) (Auto) 0.1 % Basophils (%) (Auto) 0.1 % Neutrophils # (Auto) 16.59 K/uL Lymphocytes # (Auto) 1.54 K/uL Monocytes # (Auto) 1.24 K/uL Eosinophils # (Auto) 0.02 K/uL Basophils # (Auto) 0.01 K/uL RDW Standard Deviation 49.0 fL RDW Coefficient of Variation 14.0 % Immature Granulocyte % (Auto) 0.4 % Immature Granulocyte # (Auto) 0.08 K/uL Creatinine 0.92 mg/dl Est Creatinine Clear Calc Drug Dose 77.2 ml/min Estimated GFR () 80.1 Estimated GFR (Non- 69.1 Bedside Glucose 121 mg/dl
[2017-09-28] MEDS ORDERED: BREX1TAB4 PO (14:14)
--- NOTE | 2017-09-28 14:23 | Progress Note ---
Medicine Progress Note Date & Time of Visit: Sep 28, 2017 at 14:23 . Subjective CC: Follow-up visit for multiple problems. HPI: Cough and dyspnea improved. No chest pain. Chronic back pain. ROS: General- no fever, no chills Resp- as noted above in HPI Cardiac- as noted above in HPI GI- no nausea, no vomiting, no diarrhea, no constipation - no dysuria, no difficulty voiding . Objective Last 8 Hrs Date Time Temp Pulse Resp B/P (MAP) Pulse Ox O2 Delivery O2 Flow Rate FiO2 09/28/17 11:40 36.6 100 16 113/76 (88) 96 09/28/17 08:00 Nasal Cannula 2.0 09/28/17 07:49 36.7 101 16 104/71 (82) 94 Nasal Cannula 09/28/17 06:59 86 16 96 Nasal Cannula 2.0 Physical Exam: General- lying in bed; no distress Lungs- diffuse mild wheezing; no respiratory distress Cardiovascular- RRR; no JVD; trace pretibial edema Abdomen- + bowel sounds, soft, nontender Extremities- no cyanosis; no calf tenderness Neuro- alert, oriented Skin- warm & dry . Laboratory Results: Last 24 Hours Test 09/27/17 15:45 09/27/17 16:16 09/27/17 20:01 09/28/17 01:15 Urine Color YELLOW YELLOW Urine Appearance CLEAR CLEAR Urine pH 6.0 7.5 Urine Specific [place] 1.011 1.010 Urine Protein NEG NEG Urine Glucose (UA) TRACE NEG Urine Ketones NEG NEG Urine Occult Blood NEG NEG Urine Nitrite NEG NEG Urine Bilirubin NEG NEG Urine Urobilinogen NEG NEG Urine Leukocyte Esterase NEG NEG Bedside Glucose 202 mg/dl 170 mg/dl Test 09/28/17 05:26 09/28/17 07:14 White Blood Count 19.48 K/uL Red Blood Count 3.85 M/uL Hemoglobin 12.1 g/dL Hematocrit 37.2 % Mean Corpuscular Volume 96.6 fL Mean Corpuscular Hemoglobin 31.4 pg Mean Corpuscular Hemoglobin Concent 32.5 g/dl Platelet Count 196 K/uL Mean Platelet Volume 10.0 fL Neutrophils (%) (Auto) 85.1 % Lymphocytes (%) (Auto) 7.9 % Monocytes (%) (Auto) 6.4 % Eosinophils (%) (Auto) 0.1 % Basophils (%) (Auto) 0.1 % Neutrophils # (Auto) 16.59 K/uL Lymphocytes # (Auto) 1.54 K/uL Monocytes # (Auto) 1.24 K/uL Eosinophils # (Auto) 0.02 K/uL Basophils # (Auto) 0.01 K/uL RDW Standard Deviation 49.0 fL RDW Coefficient of Variation 14.0 % Immature Granulocyte % (Auto) 0.4 % Immature Granulocyte # (Auto) 0.08 K/uL Creatinine 0.92 mg/dl Est Creatinine Clear Calc Drug Dose 77.2 ml/min Estimated GFR () 80.1 Estimated GFR (Non- 69.1 Bedside Glucose 121 mg/dl Date/Time Source Procedure Growth Status 09/28/17 09:44 Nasal MRSA DNA Surveillance Screen - Final Specimen Negative for MRSA by DNA Probe Complete 09/27/17 20:55 Sputum Expectorated Sputum Gram Stain - Final Resulted 09/27/17 20:55 Sputum Expectorated Sputum Sputum Culture - Preliminary LIGHT NORMAL SADIQ Present, Final Rep... Resulted Assessment & Plan EXACERBATION COPD Presented to ED with cough and worsening dyspnea. Chest x-ray demonstrated bilateral densities, similar to before. Continue steroids and bronchodilators. LOWER RESPIRATORY TRACT INFECTION Patient presented with productive cough. Chest x-ray showed bilateral densities as previously noted. Possible pneumonia vs bronchitis. Sputum sent for gram stain, C&S. Continue doxycycline and piperacillin / tazobactam. CHRONIC HYPOXIC RESPIRATORY FAILURE Secondary to COPD. On home O2 2-3 LPM. Continue O2. 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 Consider lung biopsy when able. POSSIBLE SEPSIS Met criteria for sepsis at time of admission- tachycardia, tachypnea, leukocytosis. Suspected pulmonary infection. POC lactate 1.49. Systolic BP's > 90. Blood cultures obtained in ED. Received broad spectrum antibiotic coverage with levofloxacin; subsequent antibiotic therapy as discussed above. ORTHOSTATIC HYPOTENSION Continue midodrine. HCV LFT's normal. SCHIZOPHRENIA Continue usual meds. VTE PROPHYLAXIS SQ enoxaparin. DISPOSITION Expected discharge to home. Family Medicine follow-up with Dr. Adam. . Current Inpatient Medications: Current Inpatient Medications Medications (Trade) Dose Ordered Sig/Janel Route Start Time Stop Time Status Last Admin Dose Admin Insulin Glargine (Lantus Solostar Pen) 10 units DAILY SC 09/28/17 09:00 10/28/17 08:59 8/3/18 08:13 10 UNITS Glucose (Glucose 40% Gel) 15-30 GRAMS 15 GRAMS... UD PRN PO 09/27/17 06:15 10/27/17 06:14 Glucose (Glucose Chew Tab) 4-8 Tablets 4 Tabl... UD PRN PO 09/27/17 06:15 10/27/17 06:14 Dextrose (Dextrose 50% 50ML Syringe) 25-50ML 25ML FOR ... UD PRN IV 09/27/17 06:15 10/27/17 06:14 Glucagon (Glucagon Inj) 1 mg UD PRN IM 09/27/17 06:15 10/27/17 06:14 Carbohydrates (Carbohydrates For Hypoglycemia) 15-30 GRAMS 15 grams if BSG 54-69... UD PRN PO 09/27/17 06:15 10/27/17 06:14 Prednisone (PredniSONE TAB) 40 mg DAILY PO 09/27/17 09:00 10/02/17 08:59 09/28/17 08:18 40 MG Ipratropium [place] (Atrovent 0.02% 0.5MG/2.5ML Neb) 0.5 mg Q6R INH 09/27/17 09:00 10/27/17 08:59 09/28/17 06:59 0.5 MG Levalbuterol (Xopenex 1.25MG/ 0.5ML Neb) 1.25 mg Q6R INH 09/27/17 09:00 10/27/17 08:59 09/28/17 06:59 1.25 MG Ipratropium [place] (Atrovent 0.02% 0.5MG/2.5ML Neb) 0.5 mg Q4H PRN INH 09/27/17 06:45 10/27/17 06:44 Levalbuterol (Xopenex 1.25MG/ 0.5ML Neb) 1.25 mg Q4H PRN INH 09/27/17 06:45 10/27/17 06:44 Bupropion HCl (Wellbutrin-Sr Tab) 100 mg QAM PO 09/27/17 09:00 10/27/17 08:59 09/28/17 08:19 100 MG Celecoxib (CeleBREX CAP) 200 mg DAILY PO 09/27/17 09:00 10/27/17 08:59 09/28/17 08:16 200 MG Clonazepam (Klonopin Tab) 0.25 mg TID PO 09/27/17 09:00 10/27/17 08:59 09/28/17 08:14 0.25 MG Clozapine (Clozaril Tab) 100 mg TID PO 09/27/17 09:00 10/27/17 08:59 09/28/17 08:16 100 MG Escitalopram Oxalate (Lexapro Tab) 30 mg QAM PO 09/27/17 09:00 10/27/17 08:59 09/28/17 08:17 30 MG Fenofibrate (Tricor Tab) 48 mg QAM PO 09/27/17 09:00 10/27/17 08:59 09/28/17 08:19 48 MG Fluticasone Propionate (Flonase Nasal [place]) 2 sprays QAM JOSE 09/27/17 09:00 10/27/17 08:59 09/28/17 08:15 2 SPRAYS Folic Acid (Folvite Tab) 1 mg DAILY PO 09/27/17 09:00 10/27/17 08:59 09/28/17 08:17 1 MG Gabapentin (Neurontin Cap) 400 mg TID PO 09/27/17 09:00 10/27/17 08:59 09/28/17 08:17 400 MG Midodrine (Proamatine Tab) 10 mg TID@0600,1200,1800 PO 09/27/17 09:00 10/27/17 08:59 09/28/17 12:00 10 MG Montelukast Sodium (Singulair Tab) 10 mg HS PO 09/27/17 21:00 10/27/17 20:59 09/27/17 20:35 10 MG Ranitidine HCl (zANTac TAB) 150 mg BID PO 09/27/17 09:00 10/27/17 08:59 09/28/17 08:18 150 MG Senna/Docusate Sodium (Senokot S Tab) 1 tab BID PO 09/27/17 09:00 10/27/17 08:59 09/28/17 08:18 1 TAB Tamsulosin HCl (Flomax Cap) 0.4 mg HS PO 09/27/17 21:00 10/27/17 20:59 8/2/18 20:36 0.4 MG Ferrous Sulfate (Feosol Tab) 325 mg BIDM PO 09/27/17 08:45 10/27/17 08:44 09/28/17 08:15 325 MG Miscellaneous Information (Consult) 1 ea UD PRN N/A 09/27/17 07:15 10/27/17 07:14 Tramadol HCl (Ultram Tab) 25 mg Q6H PRN PO 09/27/17 06:45 10/27/17 06:44 09/28/17 08:15 25 MG Insulin Aspart (novoLOG ASPART) SLIDING SCALE If C... ACHS SC 09/27/17 11:00 10/27/17 10:59 09/28/17 08:12 4 UNITS Prochlorperazine Edisylate 5 mg/ Syringe 5 ml @ 5 mls/min Q6H PRN IV 09/27/17 06:45 10/27/17 06:44 Enoxaparin Sodium (Lovenox Inj) 40 mg Q24H SC 09/27/17 09:00 10/27/17 08:59 09/28/17 08:18 40 MG Acetaminophen (Tylenol Tab) 650 mg Q4H PRN PO 09/27/17 06:45 10/27/17 06:44 09/27/17 21:49 650 MG Nitroglycerin (Nitrostat Tab) 0.4 mg UD PRN SL 09/27/17 06:45 10/27/17 06:44 Doxycycline Hyclate 100 mg/ Dextrose 110 ml @ 50 mls/hr BID IV 09/27/17 21:00 10/04/17 20:59 09/28/17 08:06 50 MLS/HR Piperacillin Sod/ Tazobactam Sod 4.5 gm/Dextrose 120 ml @ 30 mls/hr Q8H IV 09/27/17 12:00 10/04/17 11:59 09/28/17 11:59 30 MLS/HR Heparin Sodium (Porcine) (Heparin 100 Unit/ml 5ml Flush) 5 ml PRN PRN IV 09/28/17 03:15 10/28/17 03:14 Non-Formulary Medication (brexpiprazole (Rexulti)) 2 mg DAILY PO 09/29/17 09:00 10/29/17 08:59 UNV Non-Formulary Medication (Breo Ellipta) 1 inha DAILY INH 09/29/17 09:00 10/29/17 08:59 UNV Non-Formulary Medication (Incruse Ellipta) 1 inha DAILY INH 09/29/17 09:00 10/29/17 08:59 UNV
[2017-09-28] MEDS: REXULTI 2 MG PO SCH (16:10)
[2017-09-28] MEDS: UMECLIDINIUM BROMIDE 62.5MCG/INH INH SCH (16:11)
[2017-09-28] MEDS: FLUTICASONE FUROATE-VILANTEROL 30 PUFFS/INHALER INH INH SCH (16:14)
[2017-09-28] MEDS: ACETAMINOPHEN 325 MG TAB PO PRN (20:23)
[2017-09-28] MEDS: TAMSULOSIN HCL 0.4 MG CAP PO SCH (21:07)
[2017-09-28] MEDS: MONTELUKAST SOD 10 MG TAB PO SCH (21:08)
[2017-09-28] MEDS: GUAIFENESIN SUGAR FREE 100 MG/5 ML UDC PO PRN (23:03)
[2017-09-28] MEDS: KETOROLAC TROMETHAMINE 15 MG/ML VIAL IV PRN (23:05)
[2017-09-29] VITALS (8 sets, daily range): BP systolic 95–116; BP diastolic 68–79; PULSE 79–100; TEMP 36.5–37.2; O2SAT 94–99
[2017-09-29] MEDS: LEVALBUTEROL 1.25MG/0.5ML NEB INH SCH ×4 (02:35→19:46)
[2017-09-29] MEDS: IPRATROPIUM BROMIDE NEB SOLN 0.02% 2.5 ML VIAL INH SCH ×4 (02:35→19:46)
[2017-09-29] MEDS: PIPERACILL/TAZOBAC IV 4.5 GM in D5W 100 ML IV SCH ×3 (03:34→19:46)
[2017-09-29] MEDS: MIDODRINE 10 MG TAB PO SCH ×3 (05:59→17:31)
[2017-09-29 06:30] LABS: HEMATOCRIT 36.3 % (37-47); HEMOGLOBIN 11.6 g/dL (12.0-16.0); MEAN CELL VOLUME 97.8 fL (80-100); MEAN CORPUSCULAR HEMOGLOBIN 31.3 pg (25-34); MEAN PLATELET VOLUME 10.1 fL (7.4-10.4); PLATELET COUNT 227 K/uL (130-400); RED CELL DISTRIBUTION WIDTH CV 14.4 % (11.5-14.5); RED CELL DISTRIBUTION WIDTH SD 51.1 fL (36.4-46.3)
[2017-09-29] MEDS: INSULIN ASPART 100 UNITS/ML 3 ML PEN SC SCH ×4 (07:00→21:00)
[2017-09-29 07:03] LABS: CREATININE 0.83 mg/dl (0.60-1.20); POTASSIUM 4.3 mmol/L (3.5-5.1)
[2017-09-29] MEDS: FLUTICASONE FUROATE-VILANTEROL 30 PUFFS/INHALER INH INH SCH (08:02)
[2017-09-29] MEDS: FERROUS SULFATE 325 MG TAB PO SCH ×2 (08:02→17:29)
[2017-09-29] MEDS: UMECLIDINIUM BROMIDE 62.5MCG/INH INH SCH (08:03)
[2017-09-29] MEDS: FLUTICASONE PROPIONATE NA SPR 16 GM BTL NAE SCH (08:03)
[2017-09-29] MEDS: CeleBREX 200 MG CAP PO SCH (08:05)
[2017-09-29] MEDS: CLONAZEPAM 0.5 MG TAB PO SCH ×3 (08:06→19:50)
[2017-09-29] MEDS: CLOZAPINE 100 MG TAB PO SCH ×4 (08:06→21:22)
[2017-09-29] MEDS: ESCITALOPRAM OXALATE 20 MG TAB PO SCH (08:07)
[2017-09-29] MEDS: INSULIN GLARGINE SOLOSTAR 100 UNITS/ML 3 ML PEN SC SCH (08:08)
[2017-09-29] MEDS: GABAPENTIN 400 MG CAP PO SCH ×3 (08:10→19:53)
[2017-09-29] MEDS: REXULTI 2 MG PO SCH (08:11)
[2017-09-29] MEDS: DOCUSATE SODIUM/SENNA 50/8.6MG TAB PO SCH ×2 (08:11→19:51)
[2017-09-29] MEDS: BuPROPion SR 100 MG TABCR PO SCH (08:12)
[2017-09-29] MEDS: FENOFIBRATE 48 MG TAB PO SCH (08:12)
[2017-09-29] MEDS: RANITIDINE HCL 150 MG TAB PO SCH ×2 (08:12→19:52)
[2017-09-29] MEDS: ENOXAPARIN 40 MG/0.4 ML SYR SC SCH (08:12)
[2017-09-29] MEDS: GUAIFENESIN SUGAR FREE 100 MG/5 ML UDC PO PRN ×3 (08:13→22:58)
[2017-09-29] MEDS: DOXYCYCLINE IV 100 MG in DEXTROSE 5% 100ML 100 ML IV SCH (08:20)
[2017-09-29] MEDS: ACETAMINOPHEN 325 MG TAB PO PRN (10:43)
[2017-09-29] MEDS: TRAMADOL HCL 50 MG TAB PO PRN (12:20)
--- NOTE | 2017-09-29 12:32 | Pulmonology Progress Note ---
Pulmonary Progress Note Date of Service Sep 29, 2017. Attending Dr. Denton Subjective Patient notes she has no active shortness of breath at rest but does become mildly dyspneic with activity/minimal Objective Patient was sitting up in bed eating when I entered the room. We had a long conversation and there was no signs of respiratory insufficiency such as accessory muscle use or tachypnea. PsHx: Back surgery June 2015, total abdominal hysterectomy with bilateral salpingo-oophorectomy, femoral fracture status post ORIF, colonoscopy, tonsillectomy Social history: Former tobacco smoker 1 pack per day times 40 years quit 2013, history of alcohol abuse discontinue 1994, history of narcotic addiction due to chronic pain meds Physical exam: Stable on 2-2L/NC Respiratory: Inspiratory expiratory rales appreciated bilaterally Cardiac: S1-S2 distant heart sounds Abdomen: Positive bowel sounds soft non-tender Extremities: 1+ pitting edema GRE TUTOR: Globally intact no signs of focal deficit Labs/workup WBC: 16K MRSA nasal screen, negative CT chest 09/28/2017: Diffuse bilateral traction bronchiectasis, ground-glass changes along with cystic changes in the upper and lower lobes, no definitive focal airspace consolidation/pneumonia noted, no significant mediastinal lymphadenopathy/hilar adenopathy appreciated, hepatomegaly, nonobstructing left nephrolithiasis Pulmonary Medications 1. Montelukast 10 mg 2. Doxycycline 100 mg b.i.d. (Day#3) 3. Zosyn 4.5 G IM t.i.d. (Day#3) 4. Prednisone 40 mg daily 5. Xopenex/Atrovent nebulizer 6. Fluticasone nasal spray 7. Ranitidine 150 mg b.i.d. 8. Lovenox 40 mg subcu 24 hours 9. Guaifenesin 100 mg Q 6 p.r.n. cough 10. Breo Ellipta 100-25 Assessment & Plan 56-year-old female presented with acute on chronic respiratory insufficiency and leukocytosis: 1. Leukocytosis: Patient CT imaging showed no signs of infiltrative process suggestive of pneumonia. It is possible she had bronchiectasis which was the etiology for her leukocytosis which is slowly resolving on current antibiotics. This time I suggest a 7 day course of antibiotics total and then discontinue clinical monitoring. 2. ILD: Patient's CT imaging from 10/25/2017 continues to show traction bronchiectasis, cystic changes in ground-glass opacifications. I had a long discussion with the patient and once again have informed her I believe performing a lung biopsy/surgical lung biopsy would be the most appropriate way for further evaluation of this patient's underlying CT changes. I should note that cryoprobe biopsies in the right setting such as centers with an ILD team have been noted to be affective/sensitive/specific and diagnosing underlying ILD etiologies. But as we do not have an ILD team here I do believe moving forward with a surgical lung biopsy is the most appropriate and hiatus year old intervention. Once again Dr. John Regan from thoracic surgery Department can be contacted in the future of the patient and her family are interested. I do believe this is a difficult situation as the patient has minimal understanding even after long discussion of her underlying disease state. I should state at this time as the patient is acutely ill moving forward with surgical lung biopsy would be inappropriate but as an outpatient when she is stable would be an appropriate intervention/timing. 3. 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 These have been noted to be associated with increasing risk of GERD and possibly even chronic fibrosis of the lung. It would not be consistent with the patient's current CT pattern as there is upper lobe changes as well as gravity dependent changes. An outpatient Andrade study is warranted for further evaluation. Sign off: As the patient is notably improving and I do not believe the pulmonary service can add any more on to this patient's current visit we will sign off. Please re-consult as if clinically indicated. Data Medications: Current Inpatient Medications Medications (Trade) Dose Ordered Sig/Janel Route Start Time Stop Time Status Last Admin Dose Admin Insulin Glargine (Lantus Solostar Pen) 10 units DAILY SC 09/28/17 09:00 10/28/17 08:59 09/29/17 08:08 10 UNITS Glucose (Glucose 40% Gel) 15-30 GRAMS 15 GRAMS... UD PRN PO 09/27/17 06:15 10/27/17 06:14 Glucose (Glucose Chew Tab) 4-8 Tablets 4 Tabl... UD PRN PO 09/27/17 06:15 10/27/17 06:14 Dextrose (Dextrose 50% 50ML Syringe) 25-50ML 25ML FOR ... UD PRN IV 09/27/17 06:15 9/1/18 06:14 Glucagon (Glucagon Inj) 1 mg UD PRN IM 09/27/17 06:15 10/27/17 06:14 Carbohydrates (Carbohydrates For Hypoglycemia) 15-30 GRAMS 15 grams if BSG 54-69... UD PRN PO 09/27/17 06:15 10/27/17 06:14 Prednisone (PredniSONE TAB) 40 mg DAILY PO 09/27/17 09:00 10/02/17 08:59 09/29/17 08:11 40 MG Ipratropium [place] (Atrovent 0.02% 0.5MG/2.5ML Neb) 0.5 mg Q6R INH 09/27/17 09:00 10/27/17 08:59 09/28/17 19:31 0.5 MG Levalbuterol (Xopenex 1.25MG/ 0.5ML Neb) 1.25 mg Q6R INH 09/27/17 09:00 10/27/17 08:59 09/28/17 19:31 1.25 MG Ipratropium [place] (Atrovent 0.02% 0.5MG/2.5ML Neb) 0.5 mg Q4H PRN INH 09/27/17 06:45 10/27/17 06:44 Levalbuterol (Xopenex 1.25MG/ 0.5ML Neb) 1.25 mg Q4H PRN INH 09/27/17 06:45 10/27/17 06:44 Bupropion HCl (Wellbutrin-Sr Tab) 100 mg QAM PO 09/27/17 09:00 10/27/17 08:59 09/29/17 08:12 100 MG Celecoxib (CeleBREX CAP) 200 mg DAILY PO 09/27/17 09:00 10/27/17 08:59 09/29/17 08:05 200 MG Clonazepam (Klonopin Tab) 0.25 mg TID PO 09/27/17 09:00 10/27/17 08:59 09/29/17 08:06 0.25 MG Clozapine (Clozaril Tab) 100 mg TID PO 09/27/17 09:00 10/27/17 08:59 09/29/17 08:06 100 MG Escitalopram Oxalate (Lexapro Tab) 30 mg QAM PO 09/27/17 09:00 10/27/17 08:59 09/29/17 08:07 30 MG Fenofibrate (Tricor Tab) 48 mg QAM PO 09/27/17 09:00 10/27/17 08:59 09/29/17 08:12 48 MG Fluticasone Propionate (Flonase Nasal [place]) 2 sprays QAM JOSE 09/27/17 09:00 10/27/17 08:59 09/29/17 08:03 2 SPRAYS Folic Acid (Folvite Tab) 1 mg DAILY PO 09/27/17 09:00 10/27/17 08:59 09/29/17 08:06 1 MG Gabapentin (Neurontin Cap) 400 mg TID PO 09/27/17 09:00 10/27/17 08:59 09/29/17 08:10 400 MG Midodrine (Proamatine Tab) 10 mg TID@0600,1200,1800 PO 09/27/17 09:00 10/27/17 08:59 09/29/17 12:09 10 MG Montelukast Sodium (Singulair Tab) 10 mg HS PO 09/27/17 21:00 10/27/17 20:59 09/28/17 21:08 10 MG Ranitidine HCl (zANTac TAB) 150 mg BID PO 09/27/17 09:00 10/27/17 08:59 09/29/17 08:12 150 MG Senna/Docusate Sodium (Senokot S Tab) 1 tab BID PO 09/27/17 09:00 10/27/17 08:59 09/29/17 08:11 1 TAB Tamsulosin HCl (Flomax Cap) 0.4 mg HS PO 09/27/17 21:00 10/27/17 20:59 09/28/17 21:07 0.4 MG Ferrous Sulfate (Feosol Tab) 325 mg BIDM PO 09/27/17 08:45 10/27/17 08:44 09/29/17 08:02 325 MG Miscellaneous Information (Consult) 1 ea UD PRN N/A 09/27/17 07:15 10/27/17 07:14 Tramadol HCl (Ultram Tab) 25 mg Q6H PRN PO 09/27/17 06:45 10/27/17 06:44 09/29/17 12:20 25 MG Insulin Aspart (novoLOG ASPART) SLIDING SCALE If C... ACHS SC 09/27/17 11:00 10/27/17 10:59 09/28/17 17:08 4 UNITS Prochlorperazine Edisylate 5 mg/ Syringe 5 ml @ 5 mls/min Q6H PRN IV 09/27/17 06:45 10/27/17 06:44 Enoxaparin Sodium (Lovenox Inj) 40 mg Q24H SC 09/27/17 09:00 10/27/17 08:59 09/29/17 08:12 40 MG Acetaminophen (Tylenol Tab) 650 mg Q4H PRN PO 09/27/17 06:45 10/27/17 06:44 09/29/17 10:43 650 MG Nitroglycerin (Nitrostat Tab) 0.4 mg UD PRN SL 09/27/17 06:45 10/27/17 06:44 Doxycycline Hyclate 100 mg/ Dextrose 110 ml @ 50 mls/hr BID IV 09/27/17 21:00 10/04/17 20:59 09/29/17 08:20 50 MLS/HR Piperacillin Sod/ Tazobactam Sod 4.5 gm/Dextrose 120 ml @ 30 mls/hr Q8H IV 09/27/17 12:00 10/04/17 11:59 09/29/17 12:09 30 MLS/HR Heparin Sodium (Porcine) (Heparin 100 Unit/ml 5ml Flush) 5 ml PRN PRN IV 09/28/17 03:15 10/28/17 03:14 Non-Formulary Medication (Non-Formulary Patient'S Own Med) 1 ea DAILY PO 09/28/17 15:00 10/28/17 14:59 09/29/17 08:11 1 EA Fluticasone/ Vilanterol (Breo Ellipta 100-25 Mcg/Inh) 1 puffs DAILY INH 09/28/17 15:00 10/28/17 14:59 09/29/17 08:02 1 PUFFS Non-Formulary Medication (Incruse Ellipta) 1 inha DAILY INH 09/29/17 09:00 10/29/17 08:59 UNV Ketorolac Tromethamine (Toradol Inj) 15 mg Q6H PRN IV 09/28/17 14:30 09/30/17 14:29 09/28/17 23:05 15 MG Magnesium Hydroxide (Milk Of Magnesia Susp) 30 ml BID PRN PO 09/28/17 15:15 10/28/17 15:14 Al Hydroxide/Mg Hydroxide (Maalox Susp) 15 ml Q6H PRN PO 09/28/17 15:15 10/28/17 15:14 Guaifenesin (Robitussin Sugar Free Syrup) 100 mg Q6H PRN PO 09/28/17 22:00 10/28/17 21:59 09/29/17 08:13 100 MG Vital Signs: Date Time Temp Pulse Resp B/P (MAP) Pulse Ox O2 Delivery O2 Flow Rate FiO2 09/29/17 11:48 36.7 79 18 102/78 (86) 99 Nasal Cannula 09/29/17 08:00 Nasal Cannula 2.0 09/29/17 07:14 36.7 79 17 109/71 (84) 96 Room Air 09/29/17 04:00 Nasal Cannula 3.0 09/29/17 03:24 37.2 81 21 116/79 (91) 96 Nasal Cannula 3.0 09/29/17 00:00 Nasal Cannula 3.0 09/28/17 22:59 36.6 92 18 116/79 (91) 93 Nasal Cannula 2.0 09/28/17 20:00 Nasal Cannula 2.0 09/28/17 19:31 91 18 97 Nasal Cannula 2.0 09/28/17 19:25 37.0 90 19 128/81 (97) 97 Nasal Cannula 2.0 09/28/17 16:00 36.9 94 20 119/69 (86) 97 Room Air 09/28/17 14:23 85 16 95 Nasal Cannula 2.0 Laboratory Results: Last 24 Hours Test 09/28/17 16:17 09/28/17 19:53 09/29/17 05:51 09/29/17 07:16 Bedside Glucose 146 mg/dl 139 mg/dl 81 mg/dl White Blood Count 15.50 K/uL Red Blood Count 3.71 M/uL Hemoglobin 11.6 g/dL Hematocrit 36.3 % Mean Corpuscular Volume 97.8 fL Mean Corpuscular Hemoglobin 31.3 pg Mean Corpuscular Hemoglobin Concent 32.0 g/dl RDW Standard Deviation 51.1 fL RDW Coefficient of Variation 14.4 % Platelet Count 227 K/uL Mean Platelet Volume 10.1 fL Sodium Level 144 mmol/L Potassium Level 4.3 mmol/L Chloride Level 111 mmol/L Carbon Dioxide Level 29 mmol/L Anion Gap 5.0 mmol/L Blood Urea Nitrogen 29 mg/dl Creatinine 0.83 mg/dl Est Creatinine Clear Calc Drug Dose 84.9 ml/min Estimated GFR () 90.7 Estimated GFR (Non- 78.3 BUN/Creatinine Ratio 35.2 Random Glucose 82 mg/dl Calcium Level 9.0 mg/dl
[2017-09-29] MEDS: KETOROLAC TROMETHAMINE 15 MG/ML VIAL IV PRN ×2 (16:54→22:59)
--- NOTE | 2017-09-29 19:51 | Progress Note ---
Medicine Progress Note Date & Time of Visit: Sep 29, 2017 at 13:20 . Subjective CC: Follow-up visit for multiple problems. HPI: Better. No fever. Cough and dyspnea improved. No chest pain. Chronic back pain. ROS: General- no fever, no chills Resp- as noted above in HPI Cardiac- as noted above in HPI GI- no nausea, no vomiting, no diarrhea - no dysuria . Objective Last 8 Hrs Date Time Temp Pulse Resp B/P (MAP) Pulse Ox O2 Delivery O2 Flow Rate FiO2 09/29/17 17:32 81 95/68 (77) 09/29/17 16:00 Nasal Cannula 3.0 09/29/17 15:16 36.5 100 22 112/77 (89) 97 Nasal Cannula 2.0 09/29/17 14:40 36.7 81 18 94 3.0 09/29/17 14:05 81 18 94 Nasal Cannula 3.0 09/29/17 11:48 36.7 79 18 102/78 (86) 99 Nasal Cannula Physical Exam: General- lying in bed; no distress Lungs- diffuse mild wheezing; no respiratory distress Cardiovascular- RRR; no JVD; trace pretibial edema Abdomen- + bowel sounds, soft, nontender Extremities- no cyanosis; no calf tenderness Neuro- alert, oriented Skin- warm & dry . Laboratory Results: Last 24 Hours Test 09/28/17 19:53 09/29/17 05:51 09/29/17 07:16 09/29/17 11:30 Bedside Glucose 139 mg/dl 81 mg/dl 104 mg/dl White Blood Count 15.50 K/uL Red Blood Count 3.71 M/uL Hemoglobin 11.6 g/dL Hematocrit 36.3 % Mean Corpuscular Volume 97.8 fL Mean Corpuscular Hemoglobin 31.3 pg Mean Corpuscular Hemoglobin Concent 32.0 g/dl RDW Standard Deviation 51.1 fL RDW Coefficient of Variation 14.4 % Platelet Count 227 K/uL Mean Platelet Volume 10.1 fL Sodium Level 144 mmol/L Potassium Level 4.3 mmol/L Chloride Level 111 mmol/L Carbon Dioxide Level 29 mmol/L Anion Gap 5.0 mmol/L Blood Urea Nitrogen 29 mg/dl Creatinine 0.83 mg/dl Est Creatinine Clear Calc Drug Dose 84.9 ml/min Estimated GFR () 90.7 Estimated GFR (Non- 78.3 BUN/Creatinine Ratio 35.2 Random Glucose 82 mg/dl Calcium Level 9.0 mg/dl Test 09/29/17 16:52 Bedside Glucose 139 mg/dl Assessment & Plan EXACERBATION COPD Presented to ED with cough and worsening dyspnea. Chest x-ray demonstrated bilateral densities, similar to before. Symptoms improving. Continue steroids and bronchodilators. LOWER RESPIRATORY TRACT INFECTION Patient presented with productive cough. Chest x-ray showed bilateral densities as previously noted. Possible pneumonia vs bronchitis. Sputum sent for gram stain, C&S and grew normal oral anupama. Blood cultures negative. MRSA screen negative, so MRSA pneumonia very unlikely. WBC 19,540 --> [id number]. Continue doxycycline and piperacillin / tazobactam. CHRONIC HYPOXIC RESPIRATORY FAILURE Secondary to COPD. On home O2 2-3 LPM. Continue O2. 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 Lung biopsy discussed as an option, but patient preferred not to proceed because of concerns about possible complications. POSSIBLE SEPSIS Met criteria for sepsis at time of admission- tachycardia, tachypnea, leukocytosis. Suspected pulmonary infection, possible pneumonia. POC lactate 1.49. Systolic BP's > 90. Blood cultures obtained in ED. Received broad spectrum antibiotic coverage with levofloxacin; subsequent antibiotic therapy as discussed above. ORTHOSTATIC HYPOTENSION Continue midodrine. HCV LFT's normal. SCHIZOPHRENIA Continue usual meds. VTE PROPHYLAXIS SQ enoxaparin. DISPOSITION Expected discharge to home. Family Medicine follow-up with Dr. Adam. ADDENDUM: Pt's mother and sister Peyton visiting this evening. Sister would like to be involved if there are any discussions about any invasive procedures such as open lung biopsy. . Current Inpatient Medications: Current Inpatient Medications Medications (Trade) Dose Ordered Sig/Janel Route Start Time Stop Time Status Last Admin Dose Admin Insulin Glargine (Lantus Solostar Pen) 10 units DAILY SC 09/28/17 09:00 10/28/17 08:59 09/29/17 08:08 10 UNITS Glucose (Glucose 40% Gel) 15-30 GRAMS 15 GRAMS... UD PRN PO 09/27/17 06:15 10/27/17 06:14 Glucose (Glucose Chew Tab) 4-8 Tablets 4 Tabl... UD PRN PO 09/27/17 06:15 10/27/17 06:14 Dextrose (Dextrose 50% 50ML Syringe) 25-50ML 25ML FOR ... UD PRN IV 09/27/17 06:15 10/27/17 06:14 Glucagon (Glucagon Inj) 1 mg UD PRN IM 09/27/17 06:15 10/27/17 06:14 Carbohydrates (Carbohydrates For Hypoglycemia) 15-30 GRAMS 15 grams if BSG 54-69... UD PRN PO 09/27/17 06:15 10/27/17 06:14 Prednisone (PredniSONE TAB) 40 mg DAILY PO 09/27/17 09:00 10/02/17 08:59 09/29/17 08:11 40 MG Ipratropium [place] (Atrovent 0.02% 0.5MG/2.5ML Neb) 0.5 mg Q6R INH 09/27/17 09:00 10/27/17 08:59 09/29/17 14:05 0.5 MG Levalbuterol (Xopenex 1.25MG/ 0.5ML Neb) 1.25 mg Q6R INH 09/27/17 09:00 10/27/17 08:59 09/29/17 14:04 1.25 MG Ipratropium [place] (Atrovent 0.02% 0.5MG/2.5ML Neb) 0.5 mg Q4H PRN INH 09/27/17 06:45 10/27/17 06:44 Levalbuterol (Xopenex 1.25MG/ 0.5ML Neb) 1.25 mg Q4H PRN INH 09/27/17 06:45 10/27/17 06:44 Bupropion HCl (Wellbutrin-Sr Tab) 100 mg QAM PO 09/27/17 09:00 10/27/17 08:59 09/29/17 08:12 100 MG Celecoxib (CeleBREX CAP) 200 mg DAILY PO 09/27/17 09:00 10/27/17 08:59 09/29/17 08:05 200 MG Clonazepam (Klonopin Tab) 0.25 mg TID PO 09/27/17 09:00 10/27/17 08:59 09/29/17 13:47 0.25 MG Clozapine (Clozaril Tab) 100 mg TID PO 09/27/17 09:00 10/27/17 08:59 09/29/17 17:28 100 MG Escitalopram Oxalate (Lexapro Tab) 30 mg QAM PO 09/27/17 09:00 10/27/17 08:59 09/29/17 08:07 30 MG Fenofibrate (Tricor Tab) 48 mg QAM PO 09/27/17 09:00 10/27/17 08:59 09/29/17 08:12 48 MG Fluticasone Propionate (Flonase Nasal [place]) 2 sprays QAM JOSE 09/27/17 09:00 10/27/17 08:59 09/29/17 08:03 2 SPRAYS Folic Acid (Folvite Tab) 1 mg DAILY PO 09/27/17 09:00 10/27/17 08:59 09/29/17 08:06 1 MG Gabapentin (Neurontin Cap) 400 mg TID PO 09/27/17 09:00 10/27/17 08:59 09/29/17 08:10 400 MG Midodrine (Proamatine Tab) 10 mg TID@0600,1200,1800 PO 09/27/17 09:00 10/27/17 08:59 09/29/17 17:31 10 MG Montelukast Sodium (Singulair Tab) 10 mg HS PO 09/27/17 21:00 10/27/17 20:59 09/28/17 21:08 10 MG Ranitidine HCl (zANTac TAB) 150 mg BID PO 09/27/17 09:00 10/27/17 08:59 09/29/17 08:12 150 MG Senna/Docusate Sodium (Senokot S Tab) 1 tab BID PO 09/27/17 09:00 10/27/17 08:59 09/29/17 08:11 1 TAB Tamsulosin HCl (Flomax Cap) 0.4 mg HS PO 09/27/17 21:00 10/27/17 20:59 09/28/17 21:07 0.4 MG Ferrous Sulfate (Feosol Tab) 325 mg BIDM PO 09/27/17 08:45 10/27/17 08:44 09/29/17 17:29 325 MG Miscellaneous Information (Consult) 1 ea UD PRN N/A 09/27/17 07:15 10/27/17 07:14 Tramadol HCl (Ultram Tab) 25 mg Q6H PRN PO 09/27/17 06:45 10/27/17 06:44 09/29/17 12:20 25 MG Insulin Aspart (novoLOG ASPART) SLIDING SCALE If C... ACHS SC 09/27/17 11:00 10/27/17 10:59 09/29/17 17:38 4 UNITS Prochlorperazine Edisylate 5 mg/ Syringe 5 ml @ 5 mls/min Q6H PRN IV 09/27/17 06:45 10/27/17 06:44 Enoxaparin Sodium (Lovenox Inj) 40 mg Q24H SC 09/27/17 09:00 10/27/17 08:59 09/29/17 08:12 40 MG Acetaminophen (Tylenol Tab) 650 mg Q4H PRN PO 09/27/17 06:45 10/27/17 06:44 09/29/17 10:43 650 MG Nitroglycerin (Nitrostat Tab) 0.4 mg UD PRN SL 09/27/17 06:45 10/27/17 06:44 Piperacillin Sod/ Tazobactam Sod 4.5 gm/Dextrose 120 ml @ 30 mls/hr Q8H IV 09/27/17 12:00 10/04/17 11:59 09/29/17 12:09 30 MLS/HR Heparin Sodium (Porcine) (Heparin 100 Unit/ml 5ml Flush) 5 ml PRN PRN IV 09/28/17 03:15 10/28/17 03:14 Non-Formulary Medication (Non-Formulary Patient'S Own Med) 1 ea DAILY PO 09/28/17 15:00 10/28/17 14:59 09/29/17 08:11 1 EA Fluticasone/ Vilanterol (Breo Ellipta 100-25 Mcg/Inh) 1 puffs DAILY INH 09/28/17 15:00 10/28/17 14:59 09/29/17 08:02 1 PUFFS Non-Formulary Medication (Incruse Ellipta) 1 inha DAILY INH 09/29/17 09:00 10/29/17 08:59 UNV Ketorolac Tromethamine (Toradol Inj) 15 mg Q6H PRN IV 09/28/17 14:30 09/30/17 14:29 09/29/17 16:54 15 MG Magnesium Hydroxide (Milk Of Magnesia Susp) 30 ml BID PRN PO 09/28/17 15:15 10/28/17 15:14 Al Hydroxide/Mg Hydroxide (Maalox Susp) 15 ml Q6H PRN PO 09/28/17 15:15 10/28/17 15:14 Guaifenesin (Robitussin Sugar Free Syrup) 100 mg Q6H PRN PO 09/28/17 22:00 10/28/17 21:59 09/29/17 16:53 100 MG
[2017-09-29] MEDS: MONTELUKAST SOD 10 MG TAB PO SCH (19:52)
[2017-09-29] MEDS: TAMSULOSIN HCL 0.4 MG CAP PO SCH (19:53)
[2017-09-29] MEDS: MAGNESIUM HYDROXIDE SUSP 30 ML UDC PO PRN (22:58)
[2017-09-30] VITALS (9 sets, daily range): BP systolic 106–136; BP diastolic 72–87; PULSE 73–121; TEMP 36.3–36.5; O2SAT 93–100
[2017-09-30] MEDS: LEVALBUTEROL 1.25MG/0.5ML NEB INH SCH ×4 (02:05→18:52)
[2017-09-30] MEDS: IPRATROPIUM BROMIDE NEB SOLN 0.02% 2.5 ML VIAL INH SCH ×4 (02:05→18:52)
[2017-09-30] MEDS: PIPERACILL/TAZOBAC IV 4.5 GM in D5W 100 ML IV SCH ×3 (04:21→20:12)
[2017-09-30] MEDS: MIDODRINE 10 MG TAB PO SCH ×3 (06:18→16:32)
[2017-09-30 07:05] LABS: CREATININE 0.79 mg/dl (0.60-1.20)
[2017-09-30] MEDS: INSULIN ASPART 100 UNITS/ML 3 ML PEN SC SCH ×4 (08:36→20:19)
[2017-09-30] MEDS: UMECLIDINIUM BROMIDE 62.5MCG/INH INH SCH (08:39)
[2017-09-30] MEDS: FLUTICASONE PROPIONATE NA SPR 16 GM BTL NAE SCH (08:39)
[2017-09-30] MEDS: FLUTICASONE FUROATE-VILANTEROL 30 PUFFS/INHALER INH INH SCH (08:39)
[2017-09-30] MEDS: CLOZAPINE 100 MG TAB PO SCH ×3 (08:40→20:18)
[2017-09-30] MEDS: DOCUSATE SODIUM/SENNA 50/8.6MG TAB PO SCH ×2 (08:40→20:16)
[2017-09-30] MEDS: REXULTI 2 MG PO SCH (08:41)
[2017-09-30] MEDS: FENOFIBRATE 48 MG TAB PO SCH (08:42)
[2017-09-30] MEDS: CeleBREX 200 MG CAP PO SCH (08:42)
[2017-09-30] MEDS: FERROUS SULFATE 325 MG TAB PO SCH ×2 (08:43→16:33)
[2017-09-30] MEDS: GABAPENTIN 400 MG CAP PO SCH ×3 (08:43→20:17)
[2017-09-30] MEDS: RANITIDINE HCL 150 MG TAB PO SCH ×2 (08:44→20:17)
[2017-09-30] MEDS: ESCITALOPRAM OXALATE 20 MG TAB PO SCH (08:44)
[2017-09-30] MEDS: BuPROPion SR 100 MG TABCR PO SCH (08:45)
[2017-09-30] MEDS: ENOXAPARIN 40 MG/0.4 ML SYR SC SCH (08:45)
[2017-09-30] MEDS: CLONAZEPAM 0.5 MG TAB PO SCH ×3 (08:47→20:15)
[2017-09-30] MEDS: INSULIN GLARGINE SOLOSTAR 100 UNITS/ML 3 ML PEN SC SCH (09:26)
[2017-09-30] MEDS: GUAIFENESIN SUGAR FREE 100 MG/5 ML UDC PO PRN ×2 (09:27→18:41)
[2017-09-30] MEDS: ACETAMINOPHEN 325 MG TAB PO PRN ×2 (10:06→18:41)
[2017-09-30] MEDS ORDERED: POLYETHYLENE (MIRALAX) 17 GM PACK PO ONE (10:30)
[2017-09-30] MEDS ORDERED: POLYETHYLENE (MIRALAX) 17 GM PACK PO PRN (10:30)
[2017-09-30] MEDS: KETOROLAC TROMETHAMINE 15 MG/ML VIAL IV PRN (12:06)
[2017-09-30] MEDS: MAGNESIUM HYDROXIDE SUSP 30 ML UDC PO PRN (14:40)
[2017-09-30] MEDS: TRAMADOL HCL 50 MG TAB PO PRN ×2 (14:41→20:38)
--- NOTE | 2017-09-30 19:27 | Progress Note ---
Medicine Progress Note Date & Time of Visit: Sep 30, 2017 at 10:20 . Subjective CC: Follow-up visit for multiple problems. HPI: No fever. Cough and dyspnea improved. No chest pain. ROS: General- no fever, no chills Resp- as noted above in HPI Cardiac- as noted above in HPI GI- no nausea, no vomiting, no diarrhea - no dysuria . Objective Last 8 Hrs Date Time Temp Pulse Resp B/P (MAP) Pulse Ox O2 Delivery O2 Flow Rate FiO2 09/30/17 18:54 92 16 96 Nasal Cannula 3.0 09/30/17 16:45 106/72 (83) 09/30/17 15:40 Nasal Cannula 2.0 09/30/17 15:08 36.5 93 20 125/87 (100) 93 Nasal Cannula 2.0 09/30/17 13:33 91 16 98 Nasal Cannula 3.0 09/30/17 11:55 121 121/81 (94) Physical Exam: General- sitting in chair; no distress Lungs- diffuse mild wheezing; no respiratory distress Cardiovascular- RRR; no JVD; trace pretibial edema Abdomen- + bowel sounds, soft, nontender Extremities- no cyanosis; no calf tenderness Neuro- alert, oriented Skin- warm & dry . Laboratory Results: Last 24 Hours Test 09/29/17 21:12 09/30/17 06:01 09/30/17 07:42 09/30/17 11:48 Bedside Glucose 141 mg/dl 76 mg/dl 123 mg/dl Creatinine 0.79 mg/dl Est Creatinine Clear Calc Drug Dose 89.2 ml/min Estimated GFR () 96.3 Estimated GFR (Non- 83.1 Test 09/30/17 17:02 Bedside Glucose 127 mg/dl Assessment & Plan EXACERBATION COPD Presented to ED with cough and worsening dyspnea. Chest x-ray demonstrated bilateral densities, similar to before. Symptoms improving. Received IV methylprednisolone in ED. Continue prednisone 40 mg daily for total of 5-7 days per guidelines. Continue bronchodilators. LOWER RESPIRATORY TRACT INFECTION Patient presented with productive cough. Chest x-ray showed bilateral densities as previously noted. Possible pneumonia vs bronchitis. Sputum sent for gram stain, C&S and grew normal oral anupama. Blood cultures negative. MRSA screen negative, so MRSA pneumonia very unlikely. WBC 19,540 --> [id number]. Continue doxycycline and piperacillin / tazobactam- today is day # 4/7. CHRONIC HYPOXIC RESPIRATORY FAILURE Secondary to COPD. On home O2 2-3 LPM. Continue O2. 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 Lung biopsy discussed as an option, but patient preferred not to proceed because of concerns about possible complications. POSSIBLE SEPSIS Met criteria for sepsis at time of admission- tachycardia, tachypnea, leukocytosis. Suspected pulmonary infection, possible pneumonia. POC lactate 1.49. Systolic BP's > 90. Blood cultures obtained in ED. Received broad spectrum antibiotic coverage with levofloxacin; subsequent antibiotic therapy as discussed above. STEROID INDUCED HYPERGLYCEMIA Blood sugars as high as 205 after receiving IV methylprednisolone. Not diabetic- Hgb A1C 5.5. Insulin coverage as needed. FBS today = 76. ORTHOSTATIC HYPOTENSION Continue midodrine. HCV LFT's normal. SCHIZOPHRENIA Continue usual meds. VTE PROPHYLAXIS SQ enoxaparin. DISPOSITION Expected discharge to home. Family Medicine follow-up with Dr. Adam. . Current Inpatient Medications: Current Inpatient Medications Medications (Trade) Dose Ordered Sig/Janel Route Start Time Stop Time Status Last Admin Dose Admin Insulin Glargine (Lantus Solostar Pen) 10 units DAILY SC 09/28/17 09:00 10/28/17 08:59 09/30/17 09:26 10 UNITS Glucose (Glucose 40% Gel) 15-30 GRAMS 15 GRAMS... UD PRN PO 09/27/17 06:15 10/27/17 06:14 Glucose (Glucose Chew Tab) 4-8 Tablets 4 Tabl... UD PRN PO 09/27/17 06:15 10/27/17 06:14 Dextrose (Dextrose 50% 50ML Syringe) 25-50ML 25ML FOR ... UD PRN IV 09/27/17 06:15 10/27/17 06:14 Glucagon (Glucagon Inj) 1 mg UD PRN IM 09/27/17 06:15 10/27/17 06:14 Carbohydrates (Carbohydrates For Hypoglycemia) 15-30 GRAMS 15 grams if BSG 54-69... UD PRN PO 09/27/17 06:15 10/27/17 06:14 Prednisone (PredniSONE TAB) 40 mg DAILY PO 09/27/17 09:00 10/02/17 08:59 09/30/17 08:43 40 MG Ipratropium [place] (Atrovent 0.02% 0.5MG/2.5ML Neb) 0.5 mg Q6R INH 09/27/17 09:00 10/27/17 08:59 09/30/17 18:52 0.5 MG Levalbuterol (Xopenex 1.25MG/ 0.5ML Neb) 1.25 mg Q6R INH 09/27/17 09:00 10/27/17 08:59 09/30/17 18:52 1.25 MG Ipratropium [place] (Atrovent 0.02% 0.5MG/2.5ML Neb) 0.5 mg Q4H PRN INH 09/27/17 06:45 10/27/17 06:44 Levalbuterol (Xopenex 1.25MG/ 0.5ML Neb) 1.25 mg Q4H PRN INH 09/27/17 06:45 10/27/17 06:44 Bupropion HCl (Wellbutrin-Sr Tab) 100 mg QAM PO 09/27/17 09:00 10/27/17 08:59 09/30/17 08:45 100 MG Celecoxib (CeleBREX CAP) 200 mg DAILY PO 09/27/17 09:00 10/27/17 08:59 09/30/17 08:42 200 MG Clonazepam (Klonopin Tab) 0.25 mg TID PO 09/27/17 09:00 10/27/17 08:59 09/30/17 14:41 0.25 MG Clozapine (Clozaril Tab) 100 mg TID PO 09/27/17 09:00 10/27/17 08:59 09/30/17 14:47 100 MG Escitalopram Oxalate (Lexapro Tab) 30 mg QAM PO 09/27/17 09:00 10/27/17 08:59 09/30/17 08:44 30 MG Fenofibrate (Tricor Tab) 48 mg QAM PO 09/27/17 09:00 10/27/17 08:59 09/30/17 08:42 48 MG Fluticasone Propionate (Flonase Nasal [place]) 2 sprays QAM JOSE 09/27/17 09:00 10/27/17 08:59 09/30/17 08:39 2 SPRAYS Folic Acid (Folvite Tab) 1 mg DAILY PO 09/27/17 09:00 10/27/17 08:59 09/30/17 08:44 1 MG Gabapentin (Neurontin Cap) 400 mg TID PO 09/27/17 09:00 10/27/17 08:59 09/30/17 14:41 400 MG Midodrine (Proamatine Tab) 10 mg TID@0600,1200,1800 PO 09/27/17 09:00 10/27/17 08:59 09/30/17 16:32 10 MG Montelukast Sodium (Singulair Tab) 10 mg HS PO 09/27/17 21:00 10/27/17 20:59 09/29/17 19:52 10 MG Ranitidine HCl (zANTac TAB) 150 mg BID PO 09/27/17 09:00 10/27/17 08:59 09/30/17 08:44 150 MG Senna/Docusate Sodium (Senokot S Tab) 1 tab BID PO 09/27/17 09:00 10/27/17 08:59 09/30/17 08:40 1 TAB Tamsulosin HCl (Flomax Cap) 0.4 mg HS PO 09/27/17 21:00 10/27/17 20:59 09/29/17 19:53 0.4 MG Ferrous Sulfate (Feosol Tab) 325 mg BIDM PO 09/27/17 08:45 10/27/17 08:44 09/30/17 16:33 325 MG Miscellaneous Information (Consult) 1 ea UD PRN N/A 09/27/17 07:15 10/27/17 07:14 Tramadol HCl (Ultram Tab) 25 mg Q6H PRN PO 09/27/17 06:45 10/27/17 06:44 09/30/17 14:41 25 MG Insulin Aspart (novoLOG ASPART) SLIDING SCALE If C... ACHS SC 09/27/17 11:00 10/27/17 10:59 09/30/17 17:44 1 UNITS Prochlorperazine Edisylate 5 mg/ Syringe 5 ml @ 5 mls/min Q6H PRN IV 09/27/17 06:45 10/27/17 06:44 Enoxaparin Sodium (Lovenox Inj) 40 mg Q24H SC 09/27/17 09:00 10/27/17 08:59 09/30/17 08:45 40 MG Acetaminophen (Tylenol Tab) 650 mg Q4H PRN PO 09/27/17 06:45 10/27/17 06:44 09/30/17 18:41 650 MG Nitroglycerin (Nitrostat Tab) 0.4 mg UD PRN SL 09/27/17 06:45 10/27/17 06:44 Piperacillin Sod/ Tazobactam Sod 4.5 gm/Dextrose 120 ml @ 30 mls/hr Q8H IV 09/27/17 12:00 10/04/17 11:59 09/30/17 12:05 30 MLS/HR Heparin Sodium (Porcine) (Heparin 100 Unit/ml 5ml Flush) 5 ml PRN PRN IV 09/28/17 03:15 10/28/17 03:14 09/29/17 22:59 5 ML Non-Formulary Medication (Non-Formulary Patient'S Own Med) 1 ea DAILY PO 09/28/17 15:00 10/28/17 14:59 09/30/17 08:41 1 EA Fluticasone/ Vilanterol (Breo Ellipta 100-25 Mcg/Inh) 1 puffs DAILY INH 09/28/17 15:00 10/28/17 14:59 09/30/17 08:39 1 PUFFS Non-Formulary Medication (Incruse Ellipta) 1 inha DAILY INH 09/29/17 09:00 10/29/17 08:59 UNV Magnesium Hydroxide (Milk Of Magnesia Susp) 30 ml BID PRN PO 09/28/17 15:15 10/28/17 15:14 09/30/17 14:40 30 ML Al Hydroxide/Mg Hydroxide (Maalox Susp) 15 ml Q6H PRN PO 09/28/17 15:15 10/28/17 15:14 Guaifenesin (Robitussin Sugar Free Syrup) 100 mg Q6H PRN PO 09/28/17 22:00 10/28/17 21:59 09/30/17 18:41 100 MG Polyethylene (Miralax Powder Packet) 17 gm BID PRN PO 09/30/17 10:30 10/30/17 10:29 Ketoconazole (Nizoral 2% Crm) 1 appln BID EXT 09/30/17 20:00 10/10/17 19:59 Doxycycline Hyclate (Vibramycin Cap) 100 mg BID PO 09/30/17 20:00 10/07/17 19:59
[2017-09-30] MEDS: MONTELUKAST SOD 10 MG TAB PO SCH (20:18)
[2017-09-30] MEDS: TAMSULOSIN HCL 0.4 MG CAP PO SCH (20:19)
[2017-09-30] MEDS: KETOCONAZOLE 2% CR 15 GM TUBE EXT SCH (20:37)
[2017-09-30] MEDS: DOXYCYCLINE HYCLATE 100 MG CAP PO SCH (20:38)
[2017-10-01] VITALS (8 sets, daily range): BP systolic 116–130; BP diastolic 79–84; PULSE 80–102; TEMP 36.2–36.7; O2SAT 90–98
[2017-10-01] MEDS: IPRATROPIUM BROMIDE NEB SOLN 0.02% 2.5 ML VIAL INH SCH ×4 (02:24→18:55)
[2017-10-01] MEDS: LEVALBUTEROL 1.25MG/0.5ML NEB INH SCH ×4 (02:24→18:55)
[2017-10-01] MEDS: PIPERACILL/TAZOBAC IV 4.5 GM in D5W 100 ML IV SCH ×3 (04:11→20:56)
[2017-10-01 06:09] LABS: BASO % 0.2 %; BASO ABS # 0.02 K/uL (0-0.2); EOS % 1.2 %; EOS ABS # 0.13 K/uL (0-0.5); HEMATOCRIT 38.1 % (37-47); HEMOGLOBIN 12.2 g/dL (12.0-16.0); IG# 0.06 K/uL (0.00-0.02); LYMPH % 25.4 %; LYMPH ABS # 2.73 K/uL (1.2-3.4); MEAN CELL VOLUME 98.2 fL (80-100); MEAN CORPUSCULAR HEMOGLOBIN 31.4 pg (25-34); MEAN PLATELET VOLUME 9.8 fL (7.4-10.4); MONO % 10.6 %; MONO ABS # 1.14 K/uL (0.11-0.59); NEUT ABS # 6.65 K/uL (1.4-6.5); PLATELET COUNT 258 K/uL (130-400); RED CELL DISTRIBUTION WIDTH CV 14.2 % (11.5-14.5); RED CELL DISTRIBUTION WIDTH SD 51.1 fL (36.4-46.3); WHITE BLOOD COUNT 10.73 K/uL (4.8-10.8)
[2017-10-01] MEDS: MIDODRINE 10 MG TAB PO SCH ×3 (06:27→17:47)
[2017-10-01] MEDS: INSULIN ASPART 100 UNITS/ML 3 ML PEN SC SCH ×4 (06:30→20:36)
[2017-10-01 06:35] LABS: CALCIUM 8.9 mg/dl (8.5-10.1); CREATININE 1.05 mg/dl (0.60-1.20); POTASSIUM 4.6 mmol/L (3.5-5.1)
[2017-10-01] MEDS: CLONAZEPAM 0.5 MG TAB PO SCH ×3 (07:36→20:48)
[2017-10-01] MEDS: GUAIFENESIN SUGAR FREE 100 MG/5 ML UDC PO PRN ×3 (07:36→21:52)
[2017-10-01] MEDS: FLUTICASONE FUROATE-VILANTEROL 30 PUFFS/INHALER INH INH SCH (07:37)
[2017-10-01] MEDS: CLOZAPINE 100 MG TAB PO SCH ×3 (07:38→20:41)
[2017-10-01] MEDS: UMECLIDINIUM BROMIDE 62.5MCG/INH INH SCH (07:38)
[2017-10-01] MEDS: FLUTICASONE PROPIONATE NA SPR 16 GM BTL NAE SCH (07:38)
[2017-10-01] MEDS: DOCUSATE SODIUM/SENNA 50/8.6MG TAB PO SCH ×2 (07:39→20:38)
[2017-10-01] MEDS: DOXYCYCLINE HYCLATE 100 MG CAP PO SCH ×2 (07:39→20:40)
[2017-10-01] MEDS: RANITIDINE HCL 150 MG TAB PO SCH ×2 (07:40→20:38)
[2017-10-01] MEDS: FENOFIBRATE 48 MG TAB PO SCH (07:40)
[2017-10-01] MEDS: ESCITALOPRAM OXALATE 20 MG TAB PO SCH (07:41)
[2017-10-01] MEDS: BuPROPion SR 100 MG TABCR PO SCH (07:41)
[2017-10-01] MEDS: GABAPENTIN 400 MG CAP PO SCH ×3 (07:41→20:39)
[2017-10-01] MEDS: REXULTI 2 MG PO SCH (07:42)
[2017-10-01] MEDS: CeleBREX 200 MG CAP PO SCH (07:43)
[2017-10-01] MEDS: FERROUS SULFATE 325 MG TAB PO SCH ×2 (07:43→17:47)
[2017-10-01] MEDS: ENOXAPARIN 40 MG/0.4 ML SYR SC SCH (07:43)
[2017-10-01] MEDS: KETOCONAZOLE 2% CR 15 GM TUBE EXT SCH ×2 (07:44→20:40)
[2017-10-01] MEDS: ACETAMINOPHEN 325 MG TAB PO PRN (11:46)
[2017-10-01] MEDS: TRAMADOL HCL 50 MG TAB PO PRN ×2 (12:44→21:04)
--- NOTE | 2017-10-01 12:54 | Progress Note ---
Medicine Progress Note Date & Time of Visit: Oct 01, 2017 at 12:46. Subjective seen sitting up in bed, comfortable states she continues to feel improved has intermittent cough, improving reports right leg is seems bigger than left leg denies other symptoms Objective Last 8 Hrs Date Time Temp Pulse Resp B/P (MAP) Pulse Ox O2 Delivery O2 Flow Rate FiO2 10/01/17 08:00 95 Nasal Cannula 3.0 10/01/17 07:05 83 18 95 Nasal Cannula 3.0 10/01/17 06:57 36.7 83 20 130/82 (98) 95 3.0 Physical Exam: General-oriented x 3, not in distress, speaks in sentences with no effort Head- atraumatic Eyes- anicteric ENT- oropharynx clear Neck- supple, no JVD Lungs- mild fine crackles at the bases Heart- regular rhythm; no murmur, normal rate Abdomen- normal bowel sounds, soft, nontender Extremities- trace edema right lower leg, no calf tenderness Neuro- alert, oriented x 3;no gross deficits Skin- warm & dry Laboratory Results: Last 24 Hours Test 09/30/17 17:02 09/30/17 20:15 10/01/17 05:44 10/01/17 07:22 Bedside Glucose 127 mg/dl 110 mg/dl 80 mg/dl White Blood Count 10.73 K/uL Red Blood Count 3.88 M/uL Hemoglobin 12.2 g/dL Hematocrit 38.1 % Mean Corpuscular Volume 98.2 fL Mean Corpuscular Hemoglobin 31.4 pg Mean Corpuscular Hemoglobin Concent 32.0 g/dl Platelet Count 258 K/uL Mean Platelet Volume 9.8 fL Neutrophils (%) (Auto) 62.0 % Lymphocytes (%) (Auto) 25.4 % Monocytes (%) (Auto) 10.6 % Eosinophils (%) (Auto) 1.2 % Basophils (%) (Auto) 0.2 % Neutrophils # (Auto) 6.65 K/uL Lymphocytes # (Auto) 2.73 K/uL Monocytes # (Auto) 1.14 K/uL Eosinophils # (Auto) 0.13 K/uL Basophils # (Auto) 0.02 K/uL RDW Standard Deviation 51.1 fL RDW Coefficient of Variation 14.2 % Immature Granulocyte % (Auto) 0.6 % Immature Granulocyte # (Auto) 0.06 K/uL Sodium Level 142 mmol/L Potassium Level 4.6 mmol/L Chloride Level 107 mmol/L Carbon Dioxide Level 32 mmol/L Anion Gap 3.0 mmol/L Blood Urea Nitrogen 33 mg/dl Creatinine 1.05 mg/dl Est Creatinine Clear Calc Drug Dose 67.1 ml/min Estimated GFR () 68.3 Estimated GFR (Non- 58.9 BUN/Creatinine Ratio 31.2 Random Glucose 74 mg/dl Calcium Level 8.9 mg/dl Test 10/01/17 11:34 Bedside Glucose 151 mg/dl Assessment & Plan EXACERBATION COPD Presented to ED with cough and worsening dyspnea. Chest x-ray demonstrated bilateral densities, similar to before. Received IV methylprednisolone in ED. Continue prednisone 40 mg daily Day 5/7 Continue bronchodilators. LOWER RESPIRATORY TRACT INFECTION Possible pneumonia vs bronchitis. Patient presented with productive cough. Chest x-ray showed bilateral densities as previously noted. Sputum sent for gram stain, C&S and grew normal oral anupama. Blood cultures negative. MRSA screen negative Continue doxycycline and piperacillin / tazobactam- today is day # 5/7. CHRONIC HYPOXIC RESPIRATORY FAILURE Secondary to COPD. On home O2 2-3 LPM. Continue O2. 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 Lung biopsy discussed as an option, but patient preferred not to proceed because of concerns about possible complications. POSSIBLE SEPSIS Met criteria for sepsis at time of admission- tachycardia, tachypnea, leukocytosis. Suspected pulmonary infection, possible pneumonia.. STEROID INDUCED HYPERGLYCEMIA Blood sugars as high as 205 after receiving IV methylprednisolone. Not diabetic- Hgb A1C 5.5. Insulin coverage as needed. ORTHOSTATIC HYPOTENSION Continue midodrine. HCV LFT's normal. SCHIZOPHRENIA Continue usual meds. VTE PROPHYLAXIS SQ enoxaparin. DISPOSITION Expected discharge to home. Family Medicine follow-up with Dr. Adam. . Current Inpatient Medications: Current Inpatient Medications Medications (Trade) Dose Ordered Sig/Janel Route Start Time Stop Time Status Last Admin Dose Admin Glucose (Glucose 40% Gel) 15-30 GRAMS 15 GRAMS... UD PRN PO 09/27/17 06:15 10/27/17 06:14 Glucose (Glucose Chew Tab) 4-8 Tablets 4 Tabl... UD PRN PO 09/27/17 06:15 10/27/17 06:14 Dextrose (Dextrose 50% 50ML Syringe) 25-50ML 25ML FOR ... UD PRN IV 09/27/17 06:15 10/27/17 06:14 Glucagon (Glucagon Inj) 1 mg UD PRN IM 09/27/17 06:15 10/27/17 06:14 Carbohydrates (Carbohydrates For Hypoglycemia) 15-30 GRAMS 15 grams if BSG 54-69... UD PRN PO 09/27/17 06:15 10/27/17 06:14 Prednisone (PredniSONE TAB) 40 mg DAILY PO 09/27/17 09:00 10/02/17 08:59 10/01/17 07:40 40 MG Ipratropium [place] (Atrovent 0.02% 0.5MG/2.5ML Neb) 0.5 mg Q6R INH 09/27/17 09:00 10/27/17 08:59 10/01/17 07:03 0.5 MG Levalbuterol (Xopenex 1.25MG/ 0.5ML Neb) 1.25 mg Q6R INH 09/27/17 09:00 10/27/17 08:59 10/01/17 07:03 1.25 MG Ipratropium [place] (Atrovent 0.02% 0.5MG/2.5ML Neb) 0.5 mg Q4H PRN INH 09/27/17 06:45 10/27/17 06:44 Levalbuterol (Xopenex 1.25MG/ 0.5ML Neb) 1.25 mg Q4H PRN INH 09/27/17 06:45 10/27/17 06:44 Bupropion HCl (Wellbutrin-Sr Tab) 100 mg QAM PO 09/27/17 09:00 10/27/17 08:59 10/01/17 07:41 100 MG Celecoxib (CeleBREX CAP) 200 mg DAILY PO 09/27/17 09:00 10/27/17 08:59 10/01/17 07:43 200 MG Clonazepam (Klonopin Tab) 0.25 mg TID PO 09/27/17 09:00 10/27/17 08:59 10/01/17 07:36 0.25 MG Clozapine (Clozaril Tab) 100 mg TID PO 09/27/17 09:00 10/27/17 08:59 10/01/17 07:38 100 MG Escitalopram Oxalate (Lexapro Tab) 30 mg QAM PO 09/27/17 09:00 10/27/17 08:59 10/01/17 07:41 30 MG Fenofibrate (Tricor Tab) 48 mg QAM PO 09/27/17 09:00 10/27/17 08:59 10/01/17 07:40 48 MG Fluticasone Propionate (Flonase Nasal [place]) 2 sprays QAM JOSE 09/27/17 09:00 10/27/17 08:59 10/01/17 07:38 2 SPRAYS Folic Acid (Folvite Tab) 1 mg DAILY PO 09/27/17 09:00 10/27/17 08:59 10/01/17 07:40 1 MG Gabapentin (Neurontin Cap) 400 mg TID PO 09/27/17 09:00 10/27/17 08:59 10/01/17 07:41 400 MG Midodrine (Proamatine Tab) 10 mg TID@0600,1200,1800 PO 09/27/17 09:00 10/27/17 08:59 10/01/17 12:37 10 MG Montelukast Sodium (Singulair Tab) 10 mg HS PO 09/27/17 21:00 10/27/17 20:59 09/30/17 20:18 10 MG Ranitidine HCl (zANTac TAB) 150 mg BID PO 09/27/17 09:00 10/27/17 08:59 10/01/17 07:40 150 MG Senna/Docusate Sodium (Senokot S Tab) 1 tab BID PO 09/27/17 09:00 10/27/17 08:59 10/01/17 07:39 1 TAB Tamsulosin HCl (Flomax Cap) 0.4 mg HS PO 09/27/17 21:00 10/27/17 20:59 09/30/17 20:19 0.4 MG Ferrous Sulfate (Feosol Tab) 325 mg BIDM PO 09/27/17 08:45 10/27/17 08:44 10/01/17 07:43 325 MG Miscellaneous Information (Consult) 1 ea UD PRN N/A 09/27/17 07:15 10/27/17 07:14 Tramadol HCl (Ultram Tab) 25 mg Q6H PRN PO 09/27/17 06:45 10/27/17 06:44 10/01/17 12:44 25 MG Insulin Aspart (novoLOG ASPART) SLIDING SCALE If C... ACHS SC 09/27/17 11:00 10/27/17 10:59 10/01/17 12:41 2 UNITS Prochlorperazine Edisylate 5 mg/ Syringe 5 ml @ 5 mls/min Q6H PRN IV 09/27/17 06:45 10/27/17 06:44 Enoxaparin Sodium (Lovenox Inj) 40 mg Q24H SC 09/27/17 09:00 10/27/17 08:59 10/01/17 07:43 40 MG Acetaminophen (Tylenol Tab) 650 mg Q4H PRN PO 09/27/17 06:45 10/27/17 06:44 10/01/17 11:46 650 MG Nitroglycerin (Nitrostat Tab) 0.4 mg UD PRN SL 09/27/17 06:45 10/27/17 06:44 Piperacillin Sod/ Tazobactam Sod 4.5 gm/Dextrose 120 ml @ 30 mls/hr Q8H IV 09/27/17 12:00 10/04/17 11:59 10/01/17 12:37 30 MLS/HR Heparin Sodium (Porcine) (Heparin 100 Unit/ml 5ml Flush) 5 ml PRN PRN IV 09/28/17 03:15 10/28/17 03:14 09/30/17 23:53 5 ML Non-Formulary Medication (Non-Formulary Patient'S Own Med) 1 ea DAILY PO 09/28/17 15:00 10/28/17 14:59 10/01/17 07:42 1 EA Fluticasone/ Vilanterol (Breo Ellipta 100-25 Mcg/Inh) 1 puffs DAILY INH 09/28/17 15:00 10/28/17 14:59 10/01/17 07:37 1 PUFFS Non-Formulary Medication (Incruse Ellipta) 1 inha DAILY INH 09/29/17 09:00 10/29/17 08:59 UNV Magnesium Hydroxide (Milk Of Magnesia Susp) 30 ml BID PRN PO 09/28/17 15:15 10/28/17 15:14 09/30/17 14:40 30 ML Al Hydroxide/Mg Hydroxide (Maalox Susp) 15 ml Q6H PRN PO 09/28/17 15:15 10/28/17 15:14 Guaifenesin (Robitussin Sugar Free Syrup) 100 mg Q6H PRN PO 09/28/17 22:00 10/28/17 21:59 10/01/17 07:36 100 MG Polyethylene (Miralax Powder Packet) 17 gm BID PRN PO 09/30/17 10:30 10/30/17 10:29 Ketoconazole (Nizoral 2% Crm) 1 appln BID EXT 09/30/17 20:00 10/10/17 19:59 10/01/17 07:44 1 APPLN Doxycycline Hyclate (Vibramycin Cap) 100 mg BID PO 09/30/17 20:00 10/07/17 19:59 10/01/17 07:39 100 MG
--- NOTE | 2017-10-01 14:17 | DIAGNOSTIC IMAGING REPORT ---
RIGHT LOWER EXTREMITY VENOUS DOPPLER HISTORY: Right leg pain. COMPARISON STUDY: None. FINDINGS: There is normal compressibility, flow, and augmentation within the right lower extremity deep venous system. IMPRESSION: No DVT within the right lower extremity Electronically signed by: Uriel Talley M.D. 10/01/2017 2:16 PM Dictated Date/Time: 10/01/2017 2:15 PM
[2017-10-01] MEDS: NYSTATIN SUSP 500,000 U/5 ML UDC PO SCH ×2 (17:52→20:36)
[2017-10-01] MEDS: TAMSULOSIN HCL 0.4 MG CAP PO SCH (20:38)
[2017-10-01] MEDS: MONTELUKAST SOD 10 MG TAB PO SCH (20:39)
[2017-10-01] MEDS: ALUMINUM/MAGNESIUM SUSP 30 ML UDC PO PRN (21:52)
[2017-10-02] MEDS: LEVALBUTEROL 1.25MG/0.5ML NEB INH SCH ×4 (01:40→18:55)
[2017-10-02] MEDS: IPRATROPIUM BROMIDE NEB SOLN 0.02% 2.5 ML VIAL INH SCH ×4 (01:40→18:55)
[2017-10-02] MEDS: PIPERACILL/TAZOBAC IV 4.5 GM in D5W 100 ML IV SCH ×3 (03:34→20:32)
[2017-10-02] MEDS: MIDODRINE 10 MG TAB PO SCH ×3 (05:44→17:35)
[2017-10-02] MEDS: INSULIN ASPART 100 UNITS/ML 3 ML PEN SC SCH ×4 (06:30→20:37)
[2017-10-02 07:22] VITALS: BP 105/63; PULSE 82; TEMP 36.9; O2SAT 93
[2017-10-02 08:00] VITALS: O2SAT 93
[2017-10-02 08:15] VITALS: PULSE 91; O2SAT 95
[2017-10-02] MEDS: CLONAZEPAM 0.5 MG TAB PO SCH ×3 (08:17→19:37)
[2017-10-02] MEDS: FENOFIBRATE 48 MG TAB PO SCH (08:17)
[2017-10-02] MEDS: NYSTATIN SUSP 500,000 U/5 ML UDC PO SCH ×4 (08:17→19:37)
[2017-10-02] MEDS: BuPROPion SR 100 MG TABCR PO SCH (08:17)
[2017-10-02] MEDS: REXULTI 2 MG PO SCH (08:18)
[2017-10-02] MEDS: RANITIDINE HCL 150 MG TAB PO SCH ×2 (08:18→19:39)
[2017-10-02] MEDS: DOCUSATE SODIUM/SENNA 50/8.6MG TAB PO SCH ×2 (08:18→19:38)
[2017-10-02] MEDS: ESCITALOPRAM OXALATE 20 MG TAB PO SCH (08:19)
[2017-10-02] MEDS: CeleBREX 200 MG CAP PO SCH (08:20)
[2017-10-02] MEDS: FERROUS SULFATE 325 MG TAB PO SCH ×2 (08:20→17:35)
[2017-10-02] MEDS: KETOCONAZOLE 2% CR 15 GM TUBE EXT SCH ×2 (08:20→19:40)
[2017-10-02] MEDS: FLUTICASONE PROPIONATE NA SPR 16 GM BTL NAE SCH (08:20)
[2017-10-02] MEDS: GABAPENTIN 400 MG CAP PO SCH ×3 (08:21→19:38)
[2017-10-02] MEDS: DOXYCYCLINE HYCLATE 100 MG CAP PO SCH ×2 (08:21→19:38)
[2017-10-02] MEDS: FLUTICASONE FUROATE-VILANTEROL 30 PUFFS/INHALER INH INH SCH (08:21)
[2017-10-02] MEDS: CLOZAPINE 100 MG TAB PO SCH ×3 (08:21→19:39)
[2017-10-02] MEDS: UMECLIDINIUM BROMIDE 62.5MCG/INH INH SCH (08:21)
[2017-10-02] MEDS: ENOXAPARIN 40 MG/0.4 ML SYR SC SCH (08:23)
[2017-10-02] MEDS: GUAIFENESIN SUGAR FREE 100 MG/5 ML UDC PO PRN ×2 (10:55→19:40)
[2017-10-02] MEDS: ACETAMINOPHEN 325 MG TAB PO PRN ×2 (10:56→18:26)
[2017-10-02] MEDS ORDERED: SODIUM CHLORIDE 0.65% NA SOLN 45 ML (OCEAN) ONE (12:02)
[2017-10-02] MEDS: TRAMADOL HCL 50 MG TAB PO PRN ×2 (12:06→20:35)
[2017-10-02 13:51] VITALS: PULSE 97; O2SAT 92
[2017-10-02 15:17] VITALS: BP 109/78; PULSE 86; TEMP 36.3; O2SAT 94
[2017-10-02 18:55] VITALS: PULSE 90; O2SAT 94
[2017-10-02] MEDS: TAMSULOSIN HCL 0.4 MG CAP PO SCH (20:35)
[2017-10-02] MEDS: MONTELUKAST SOD 10 MG TAB PO SCH (20:35)
--- NOTE | 2017-10-02 21:15 | Progress Note ---
Medicine Progress Note Date & Time of Visit: Oct 02, 2017 at 21:14. Subjective Seen resting in bed, comfortable, in good spirits States she feels that she continues to improve Breathing continues to improve, less cough No other symptoms Objective Last 8 Hrs Date Time Temp Pulse Resp B/P (MAP) Pulse Ox O2 Delivery O2 Flow Rate FiO2 10/02/17 18:55 90 16 94 Nasal Cannula 2.0 10/02/17 15:17 36.3 86 20 109/78 (88) 94 10/02/17 13:51 97 18 92 Nasal Cannula 2.0 Physical Exam: General-oriented x 3, not in distress, speaks in sentences with no effort Eyes- anicteric Neck- supple, no JVD Lungs- mild fine crackles at the bases, no wheezing Heart- regular rhythm; no murmur, normal rate Abdomen- normal bowel sounds, soft, nontender Extremities- trace edema right lower leg, no calf tenderness Neuro- alert, oriented x 3;no gross deficits Skin- warm & dry Laboratory Results: Last 24 Hours Test 10/02/17 07:44 10/02/17 11:39 10/02/17 16:46 10/02/17 20:21 Bedside Glucose 88 mg/dl 142 mg/dl 145 mg/dl 129 mg/dl Assessment & Plan EXACERBATION COPD Presented to ED with cough and worsening dyspnea. Chest x-ray demonstrated bilateral densities, similar to before. Received IV methylprednisolone in ED. Continue prednisone 40 mg daily Day 7 Continue bronchodilators. LOWER RESPIRATORY TRACT INFECTION Possible pneumonia vs bronchitis. Patient presented with productive cough. Chest x-ray showed bilateral densities as previously noted. Sputum sent for gram stain, C&S and grew normal oral anupama. Blood cultures negative. MRSA screen negative Continue doxycycline and piperacillin / tazobactam- today is day #6 out of 7 CHRONIC HYPOXIC RESPIRATORY FAILURE Secondary to COPD. On home O2 2-3 LPM. Continue O2. 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 Lung biopsy discussed as an option, but patient preferred not to proceed because of concerns about possible complications. POSSIBLE SEPSIS Met criteria for sepsis at time of admission- tachycardia, tachypnea, leukocytosis. Suspected pulmonary infection, possible pneumonia.. STEROID INDUCED HYPERGLYCEMIA Blood sugars as high as 205 after receiving IV methylprednisolone. Not diabetic- Hgb A1C 5.5. Insulin coverage as needed. ORTHOSTATIC HYPOTENSION Continue midodrine. HCV LFT's normal. SCHIZOPHRENIA Continue usual meds. VTE PROPHYLAXIS SQ enoxaparin. DISPOSITION Expected discharge to home. Family Medicine follow-up with Dr. Adam. . Current Inpatient Medications: Current Inpatient Medications Medications (Trade) Dose Ordered Sig/Janel Route Start Time Stop Time Status Last Admin Dose Admin Glucose (Glucose 40% Gel) 15-30 GRAMS 15 GRAMS... UD PRN PO 09/27/17 06:15 10/27/17 06:14 Glucose (Glucose Chew Tab) 4-8 Tablets 4 Tabl... UD PRN PO 09/27/17 06:15 10/27/17 06:14 Dextrose (Dextrose 50% 50ML Syringe) 25-50ML 25ML FOR ... UD PRN IV 09/27/17 06:15 10/27/17 06:14 Glucagon (Glucagon Inj) 1 mg UD PRN IM 09/27/17 06:15 10/27/17 06:14 Carbohydrates (Carbohydrates For Hypoglycemia) 15-30 GRAMS 15 grams if BSG 54-69... UD PRN PO 09/27/17 06:15 10/27/17 06:14 Ipratropium [place] (Atrovent 0.02% 0.5MG/2.5ML Neb) 0.5 mg Q6R INH 09/27/17 09:00 10/27/17 08:59 10/02/17 18:55 0.5 MG Levalbuterol (Xopenex 1.25MG/ 0.5ML Neb) 1.25 mg Q6R INH 09/27/17 09:00 10/27/17 08:59 10/02/17 18:55 1.25 MG Ipratropium [place] (Atrovent 0.02% 0.5MG/2.5ML Neb) 0.5 mg Q4H PRN INH 09/27/17 06:45 10/27/17 06:44 Levalbuterol (Xopenex 1.25MG/ 0.5ML Neb) 1.25 mg Q4H PRN INH 09/27/17 06:45 10/27/17 06:44 Bupropion HCl (Wellbutrin-Sr Tab) 100 mg QAM PO 09/27/17 09:00 10/27/17 08:59 10/02/17 08:17 100 MG Celecoxib (CeleBREX CAP) 200 mg DAILY PO 09/27/17 09:00 10/27/17 08:59 10/02/17 08:20 200 MG Clonazepam (Klonopin Tab) 0.25 mg TID PO 09/27/17 09:00 10/27/17 08:59 10/02/17 19:37 0.25 MG Clozapine (Clozaril Tab) 100 mg TID PO 09/27/17 09:00 10/27/17 08:59 10/02/17 19:39 100 MG Escitalopram Oxalate (Lexapro Tab) 30 mg QAM PO 09/27/17 09:00 10/27/17 08:59 10/02/17 08:19 30 MG Fenofibrate (Tricor Tab) 48 mg QAM PO 09/27/17 09:00 10/27/17 08:59 10/02/17 08:17 48 MG Fluticasone Propionate (Flonase Nasal [place]) 2 sprays QAM JOSE 09/27/17 09:00 10/27/17 08:59 10/02/17 08:20 2 SPRAYS Folic Acid (Folvite Tab) 1 mg DAILY PO 09/27/17 09:00 10/27/17 08:59 10/02/17 08:19 1 MG Gabapentin (Neurontin Cap) 400 mg TID PO 09/27/17 09:00 10/27/17 08:59 10/02/17 19:38 400 MG Midodrine (Proamatine Tab) 10 mg TID@0600,1200,1800 PO 09/27/17 09:00 10/27/17 08:59 10/02/17 17:35 10 MG Montelukast Sodium (Singulair Tab) 10 mg HS PO 09/27/17 21:00 10/27/17 20:59 10/02/17 20:35 10 MG Ranitidine HCl (zANTac TAB) 150 mg BID PO 09/27/17 09:00 10/27/17 08:59 10/02/17 19:39 150 MG Senna/Docusate Sodium (Senokot S Tab) 1 tab BID PO 09/27/17 09:00 10/27/17 08:59 10/02/17 19:38 1 TAB Tamsulosin HCl (Flomax Cap) 0.4 mg HS PO 09/27/17 21:00 10/27/17 20:59 10/02/17 20:35 0.4 MG Ferrous Sulfate (Feosol Tab) 325 mg BIDM PO 09/27/17 08:45 10/27/17 08:44 10/02/17 17:35 325 MG Miscellaneous Information (Consult) 1 ea UD PRN N/A 09/27/17 07:15 10/27/17 07:14 Tramadol HCl (Ultram Tab) 25 mg Q6H PRN PO 09/27/17 06:45 10/27/17 06:44 10/02/17 20:35 25 MG Insulin Aspart (novoLOG ASPART) SLIDING SCALE If C... ACHS SC 09/27/17 11:00 10/27/17 10:59 10/02/17 17:36 2 UNITS Prochlorperazine Edisylate 5 mg/ Syringe 5 ml @ 5 mls/min Q6H PRN IV 09/27/17 06:45 10/27/17 06:44 Enoxaparin Sodium (Lovenox Inj) 40 mg Q24H SC 09/27/17 09:00 10/27/17 08:59 10/02/17 08:23 40 MG Acetaminophen (Tylenol Tab) 650 mg Q4H PRN PO 09/27/17 06:45 10/27/17 06:44 10/02/17 18:26 650 MG Nitroglycerin (Nitrostat Tab) 0.4 mg UD PRN SL 09/27/17 06:45 10/27/17 06:44 Piperacillin Sod/ Tazobactam Sod 4.5 gm/Dextrose 120 ml @ 30 mls/hr Q8H IV 09/27/17 12:00 10/04/17 11:59 10/02/17 20:32 30 MLS/HR Heparin Sodium (Porcine) (Heparin 100 Unit/ml 5ml Flush) 5 ml PRN PRN IV 09/28/17 03:15 10/28/17 03:14 10/02/17 01:22 5 ML Non-Formulary Medication (Non-Formulary Patient'S Own Med) 1 ea DAILY PO 09/28/17 15:00 10/28/17 14:59 10/02/17 08:18 1 EA Fluticasone/ Vilanterol (Breo Ellipta 100-25 Mcg/Inh) 1 puffs DAILY INH 09/28/17 15:00 10/28/17 14:59 10/02/17 08:21 1 PUFFS Non-Formulary Medication (Incruse Ellipta) 1 inha DAILY INH 09/29/17 09:00 10/29/17 08:59 UNV Magnesium Hydroxide (Milk Of Magnesia Susp) 30 ml BID PRN PO 09/28/17 15:15 10/28/17 15:14 09/30/17 14:40 30 ML Al Hydroxide/Mg Hydroxide (Maalox Susp) 15 ml Q6H PRN PO 09/28/17 15:15 10/28/17 15:14 10/01/17 21:52 15 ML Guaifenesin (Robitussin Sugar Free Syrup) 100 mg Q6H PRN PO 09/28/17 22:00 10/28/17 21:59 10/02/17 19:40 100 MG Polyethylene (Miralax Powder Packet) 17 gm BID PRN PO 09/30/17 10:30 10/30/17 10:29 Ketoconazole (Nizoral 2% Crm) 1 appln BID EXT 09/30/17 20:00 10/10/17 19:59 10/02/17 19:40 1 APPLN Doxycycline Hyclate (Vibramycin Cap) 100 mg BID PO 09/30/17 20:00 10/07/17 19:59 10/02/17 19:38 100 MG Nystatin (Mycostatin Susp) 5 ml QID PO 10/01/17 17:00 10/08/17 16:59 10/02/17 19:37 5 ML
[2017-10-03 00:07] VITALS: BP 99/69; PULSE 109; TEMP 36.7; O2SAT 90
[2017-10-03] MEDS: LEVALBUTEROL 1.25MG/0.5ML NEB INH SCH ×3 (02:01→14:19)
[2017-10-03] MEDS: IPRATROPIUM BROMIDE NEB SOLN 0.02% 2.5 ML VIAL INH SCH ×3 (02:01→14:19)
[2017-10-03] MEDS: PIPERACILL/TAZOBAC IV 4.5 GM in D5W 100 ML IV SCH ×2 (03:42→11:30)
[2017-10-03] MEDS: MIDODRINE 10 MG TAB PO SCH ×3 (05:21→17:50)
[2017-10-03] MEDS: INSULIN ASPART 100 UNITS/ML 3 ML PEN SC SCH ×3 (06:30→17:52)
[2017-10-03 06:57] VITALS: BP 105/72; PULSE 81; TEMP 36.6; O2SAT 94
[2017-10-03 07:20] VITALS: PULSE 87; O2SAT 94
[2017-10-03] MEDS: CeleBREX 200 MG CAP PO SCH (07:39)
[2017-10-03] MEDS: ESCITALOPRAM OXALATE 20 MG TAB PO SCH (07:39)
[2017-10-03] MEDS: FLUTICASONE PROPIONATE NA SPR 16 GM BTL NAE SCH (07:39)
[2017-10-03] MEDS: RANITIDINE HCL 150 MG TAB PO SCH (07:40)
[2017-10-03] MEDS: ENOXAPARIN 40 MG/0.4 ML SYR SC SCH (07:40)
[2017-10-03] MEDS: DOCUSATE SODIUM/SENNA 50/8.6MG TAB PO SCH (07:41)
[2017-10-03] MEDS: NYSTATIN SUSP 500,000 U/5 ML UDC PO SCH ×3 (07:41→17:50)
[2017-10-03] MEDS: GABAPENTIN 400 MG CAP PO SCH ×2 (07:42→13:49)
[2017-10-03] MEDS: CLOZAPINE 100 MG TAB PO SCH ×2 (07:43→13:49)
[2017-10-03] MEDS: FERROUS SULFATE 325 MG TAB PO SCH ×2 (07:43→17:50)
[2017-10-03] MEDS: FENOFIBRATE 48 MG TAB PO SCH (07:43)
[2017-10-03] MEDS: FLUTICASONE FUROATE-VILANTEROL 30 PUFFS/INHALER INH INH SCH (07:46)
[2017-10-03] MEDS: DOXYCYCLINE HYCLATE 100 MG CAP PO SCH (07:46)
[2017-10-03] MEDS: UMECLIDINIUM BROMIDE 62.5MCG/INH INH SCH (07:46)
[2017-10-03] MEDS: REXULTI 2 MG PO SCH (07:47)
[2017-10-03] MEDS: BuPROPion SR 100 MG TABCR PO SCH (07:47)
[2017-10-03] MEDS: CLONAZEPAM 0.5 MG TAB PO SCH ×2 (07:50→13:49)
[2017-10-03] MEDS: KETOCONAZOLE 2% CR 15 GM TUBE EXT SCH (07:51)
[2017-10-03] MEDS: ACETAMINOPHEN 325 MG TAB PO PRN ×2 (11:00→18:24)
[2017-10-03] MEDS: TRAMADOL HCL 50 MG TAB PO PRN (11:24)
[2017-10-03] MEDS ORDERED: XPNINS1255 INH (12:02)
[2017-10-03] MEDS ORDERED: ATRINS INH (12:02)
[2017-10-03 14:19] VITALS: PULSE 84; O2SAT 95
[2017-10-03] MEDS: ALUMINUM/MAGNESIUM SUSP 30 ML UDC PO PRN (16:19)
--- NOTE | 2017-10-03 16:40 | Progress Note ---
Medicine Progress Note Date & Time of Visit: Oct 03, 2017 at 16:33. Subjective Seen resting in bed, comfortable, watching TV States she feels fine overall Denies dyspnea, cough No other symptoms States she is ready and would like to be discharged today. Objective Last 8 Hrs Date Time Temp Pulse Resp B/P (MAP) Pulse Ox O2 Delivery O2 Flow Rate FiO2 10/03/17 14:19 84 16 95 Nasal Cannula 3.0 Physical Exam: General-oriented x 3, not in distress, speaks in sentences with no effort Eyes- anicteric Neck-no JVD Lungs- fine crackles at the bases, no wheezes, good air entry bilaterally Heart- regular rhythm; no murmur, normal rate Abdomen- normal bowel sounds, soft, nontender Extremities-no bipedal edema, no calf tenderness Neuro- alert, oriented x 3;no gross deficits Skin- warm & dry Laboratory Results: Last 24 Hours Test 10/02/17 16:46 10/02/17 20:21 10/03/17 07:44 10/03/17 11:34 Bedside Glucose 145 mg/dl 129 mg/dl 93 mg/dl 83 mg/dl Test 10/03/17 16:29 Bedside Glucose 91 mg/dl Assessment & Plan EXACERBATION COPD Presented to ED with cough and worsening dyspnea. Chest x-ray demonstrated bilateral densities, similar to before. Received IV methylprednisolone in ED. Received prednisone 40 mg daily 7 days --Improved overall continue Nebs TID and PRN LOWER RESPIRATORY TRACT INFECTION Possible pneumonia vs bronchitis. Patient presented with productive cough. Chest x-ray showed bilateral densities as previously noted. Sputum sent for gram stain, C&S and grew normal oral anupama. Blood cultures negative. MRSA screen negative Completed 7 day course of doxycycline and piperacillin / tazobactam IV CHRONIC HYPOXIC RESPIRATORY FAILURE Secondary to COPD. On home O2 2-3 LPM. back to baseline Oxygen supplement SUSPECTED INTERSTITIAL LUNG DISEASE Has been evaluated by [facility] Pulmonary Medicine. Lung biopsy discussed as an option, but patient preferred not to proceed because of concerns about possible complications. POSSIBLE SEPSIS Met criteria for sepsis at time of admission- tachycardia, tachypnea, leukocytosis. Suspected pulmonary infection, possible pneumonia.. STEROID INDUCED HYPERGLYCEMIA Blood sugars as high as 205 after receiving IV methylprednisolone. Not diabetic- Hgb A1C 5.5. Insulin coverage as needed given ORTHOSTATIC HYPOTENSION Continue midodrine. HCV LFT's normal. SCHIZOPHRENIA Continue usual meds. VTE PROPHYLAXIS SQ enoxaparin given DISPOSITION d/c to home follow up with Primary Care Physician Dr. Adam on Sunday October 08, 2017 at 1: 45pm. follow up with Wealth Management Advisor Dr. Denton in 1-2 weeks. Current Inpatient Medications: Current Inpatient Medications Medications (Trade) Dose Ordered Sig/Janel Route Start Time Stop Time Status Last Admin Dose Admin Glucose (Glucose 40% Gel) 15-30 GRAMS 15 GRAMS... UD PRN PO 09/27/17 06:15 10/27/17 06:14 Glucose (Glucose Chew Tab) 4-8 Tablets 4 Tabl... UD PRN PO 09/27/17 06:15 10/27/17 06:14 Dextrose (Dextrose 50% 50ML Syringe) 25-50ML 25ML FOR ... UD PRN IV 09/27/17 06:15 10/27/17 06:14 Glucagon (Glucagon Inj) 1 mg UD PRN IM 09/27/17 06:15 10/27/17 06:14 Carbohydrates (Carbohydrates For Hypoglycemia) 15-30 GRAMS 15 grams if BSG 54-69... UD PRN PO 09/27/17 06:15 10/27/17 06:14 Ipratropium [place] (Atrovent 0.02% 0.5MG/2.5ML Neb) 0.5 mg Q6R INH 09/27/17 09:00 10/27/17 08:59 10/03/17 14:19 0.5 MG Levalbuterol (Xopenex 1.25MG/ 0.5ML Neb) 1.25 mg Q6R INH 09/27/17 09:00 10/27/17 08:59 10/03/17 14:19 1.25 MG Ipratropium [place] (Atrovent 0.02% 0.5MG/2.5ML Neb) 0.5 mg Q4H PRN INH 09/27/17 06:45 10/27/17 06:44 Levalbuterol (Xopenex 1.25MG/ 0.5ML Neb) 1.25 mg Q4H PRN INH 09/27/17 06:45 10/27/17 06:44 Bupropion HCl (Wellbutrin-Sr Tab) 100 mg QAM PO 09/27/17 09:00 10/27/17 08:59 10/03/17 07:47 100 MG Celecoxib (CeleBREX CAP) 200 mg DAILY PO 09/27/17 09:00 10/27/17 08:59 10/03/17 07:39 200 MG Clonazepam (Klonopin Tab) 0.25 mg TID PO 09/27/17 09:00 10/27/17 08:59 10/03/17 13:49 0.25 MG Clozapine (Clozaril Tab) 100 mg TID PO 09/27/17 09:00 10/27/17 08:59 10/03/17 13:49 100 MG Escitalopram Oxalate (Lexapro Tab) 30 mg QAM PO 09/27/17 09:00 10/27/17 08:59 10/03/17 07:39 30 MG Fenofibrate (Tricor Tab) 48 mg QAM PO 09/27/17 09:00 10/27/17 08:59 10/03/17 07:43 48 MG Fluticasone Propionate (Flonase Nasal [place]) 2 sprays QAM JOSE 09/27/17 09:00 10/27/17 08:59 10/03/17 07:39 2 SPRAYS Folic Acid (Folvite Tab) 1 mg DAILY PO 09/27/17 09:00 10/27/17 08:59 10/03/17 07:41 1 MG Gabapentin (Neurontin Cap) 400 mg TID PO 09/27/17 09:00 10/27/17 08:59 10/03/17 13:49 400 MG Midodrine (Proamatine Tab) 10 mg TID@0600,1200,1800 PO 09/27/17 09:00 10/27/17 08:59 10/03/17 11:25 10 MG Montelukast Sodium (Singulair Tab) 10 mg HS PO 09/27/17 21:00 10/27/17 20:59 10/02/17 20:35 10 MG Ranitidine HCl (zANTac TAB) 150 mg BID PO 09/27/17 09:00 10/27/17 08:59 10/03/17 07:40 150 MG Senna/Docusate Sodium (Senokot S Tab) 1 tab BID PO 09/27/17 09:00 9/1/18 08:59 10/03/17 07:41 1 TAB Tamsulosin HCl (Flomax Cap) 0.4 mg HS PO 09/27/17 21:00 10/27/17 20:59 10/02/17 20:35 0.4 MG Ferrous Sulfate (Feosol Tab) 325 mg BIDM PO 09/27/17 08:45 10/27/17 08:44 10/03/17 07:43 325 MG Miscellaneous Information (Consult) 1 ea UD PRN N/A 09/27/17 07:15 10/27/17 07:14 Tramadol HCl (Ultram Tab) 25 mg Q6H PRN PO 09/27/17 06:45 10/27/17 06:44 10/03/17 11:24 25 MG Insulin Aspart (novoLOG ASPART) SLIDING SCALE If C... ACHS SC 09/27/17 11:00 10/27/17 10:59 10/02/17 17:36 2 UNITS Prochlorperazine Edisylate 5 mg/ Syringe 5 ml @ 5 mls/min Q6H PRN IV 09/27/17 06:45 10/27/17 06:44 Enoxaparin Sodium (Lovenox Inj) 40 mg Q24H SC 09/27/17 09:00 10/27/17 08:59 10/03/17 07:40 40 MG Acetaminophen (Tylenol Tab) 650 mg Q4H PRN PO 09/27/17 06:45 10/27/17 06:44 10/03/17 11:00 650 MG Nitroglycerin (Nitrostat Tab) 0.4 mg UD PRN SL 09/27/17 06:45 10/27/17 06:44 Piperacillin Sod/ Tazobactam Sod 4.5 gm/Dextrose 120 ml @ 30 mls/hr Q8H IV 09/27/17 12:00 10/04/17 11:59 10/03/17 11:30 30 MLS/HR Heparin Sodium (Porcine) (Heparin 100 Unit/ml 5ml Flush) 5 ml PRN PRN IV 09/28/17 03:15 10/28/17 03:14 10/03/17 15:36 5 ML Non-Formulary Medication (Non-Formulary Patient'S Own Med) 1 ea DAILY PO 09/28/17 15:00 10/28/17 14:59 10/03/17 07:47 1 EA Fluticasone/ Vilanterol (Breo Ellipta 100-25 Mcg/Inh) 1 puffs DAILY INH 09/28/17 15:00 10/28/17 14:59 10/03/17 07:46 1 PUFFS Non-Formulary Medication (Incruse Ellipta) 1 inha DAILY INH 09/29/17 09:00 10/29/17 08:59 UNV Magnesium Hydroxide (Milk Of Magnesia Susp) 30 ml BID PRN PO 09/28/17 15:15 10/28/17 15:14 09/30/17 14:40 30 ML Al Hydroxide/Mg Hydroxide (Maalox Susp) 15 ml Q6H PRN PO 09/28/17 15:15 10/28/17 15:14 10/03/17 16:19 15 ML Guaifenesin (Robitussin Sugar Free Syrup) 100 mg Q6H PRN PO 09/28/17 22:00 10/28/17 21:59 10/02/17 19:40 100 MG Polyethylene (Miralax Powder Packet) 17 gm BID PRN PO 09/30/17 10:30 10/30/17 10:29 Ketoconazole (Nizoral 2% Crm) 1 appln BID EXT 09/30/17 20:00 10/10/17 19:59 10/03/17 07:51 1 APPLN Doxycycline Hyclate (Vibramycin Cap) 100 mg BID PO 09/30/17 20:00 10/07/17 19:59 10/03/17 07:46 100 MG Nystatin (Mycostatin Susp) 5 ml QID PO 10/01/17 17:00 10/08/17 16:59 10/03/17 11:24 5 ML
[2017-10-03] MEDS ORDERED: NYSS5 PO (16:48)
--- NOTE | 2017-10-03 16:58 | Discharge Instructions ---
Discharge Instructions Date of Service Oct 03, 2017. Admission Reason for Admission: Respiratory Failure, Alnqq-Zy-Uygwacl Discharge Discharge Diagnosis / Problem: Acute on chronic hypoxic respiratory failure Discharge Goals Goal(s): Diagnostic testing, Therapeutic intervention Activity Recommendations Activity Limitations: as noted below (No heavy exertion until reevaluated by primary care physician) Lifting Limitations: until after follow-up appointment Exercise/Sports Limitations: until after follow-up appointment Driving or Machine Use: No driving . Instructions / Follow-Up Instructions / Follow-Up Please refer to your new medication list and follow instructions carefully. Please call your primary care physician or return to the ER immediately if with worsening of symptoms. follow up with Primary Care Physician Dr. Adam on Sunday October 08, 2017 at 1: 45pm. follow up with [facility] group customer service leader Dr. Denton in 1- 2 weeks. tel no. Current Hospital Diet Patient's current hospital diet: Diabetes Type 2 Diet Discharge Diet Recommended Diet: Diabetes Type 2 Diet Pending Studies Studies pending at discharge: no Laboratory Results Hemoglobin A1c Test 09/27/17 05:05 Range/Units Estimated Average Glucose 111 mg/dl Hemoglobin A1c 5.5 4.5-5.6 % Medical Emergencies . Who to Call and When: Medical Emergencies: If at any time you feel your situation is an emergency, please call 911 immediately. . Non-Emergent Contact Non-Emergency issues call your: Primary Care Provider, Mortgage Accounting Clerk Call Non-Emergent contact if: you have a fever, your pain is not controlled, your pain is worsening, your pain is unusual for you, your pain is concerning you, you have any medication questions . . "Provider Documentation" section prepared by Jose Alberto Diego. .
--- NOTE | 2017-10-03 17:01 | Discharge Summary ---
Discharge Summary Date of Service Oct 03, 2017. Discharge Summary Admission Date: Sep 27, 2017 at 05:50 Discharge Date: Oct 03, 2017 Principal Diagnosis: EXACERBATION COPD Secondary Diagnoses/Problems: Please refer to hospital course below. Procedures: (CHEST) THORAX WITHOUT CT DOSE: 610.35 mGy.cm CLINICAL HISTORY: 56 years-old Female with Atelectasis versus infiltrate. Acute shortness of breath with bilateral opacities seen on comparison chest radiograph suggesting atelectasis or pneumonia TECHNIQUE: Multiaxial CT images of the chest were performed without contrast. A dose lowering technique was utilized adhering to the principles of ALARA. COMPARISON: Chest radiograph 09/27/2017, CTA chest 08/27/2017. FINDINGS: No large thyroid nodule identified. Evaluation for adenopathy is limited without the use of IV contrast. No definite pathologically enlarged lymph nodes of the chest. Heart is upper limits of normal in size. Right subclavian Cbviyx-q-Prqa catheter is noted terminating in the right atrium. Mild calcification of the aorta without aneurysm. Main pulmonary artery is dilated measuring up to 3.2 cm transversely. There is no pneumothorax or pleural effusion identified. Bilateral reticular and groundglass opacities are noted with traction bronchiectasis and bilateral cystic change seen on both the upper and lower lobes. There is relative sparing of the right middle lobe and lateral basal segment right lower lobe There is no significant change from the comparison study from 08/27/2017. No definite lobar airspace consolidation to suggest pneumonia. Mild superior elevation/retraction of the jerald from the upper lobe scarring. No suspicious pulmonary nodules or masses identified. Mild layering secretions are noted about the tracheobronchial tree. Fatty infiltration of the liver. No acute process of the imaged abdomen. Left nephrolithiasis. Moderate formed stool throughout the colon suggests constipation. Small sliding-type hiatal hernia. Soft tissues are unremarkable. Interbody nina and screw fusion hardware with remote compression deformity about the thoracic spine appear unchanged. Levoscoliosis of the lower thoracic spine. IMPRESSION: 1. Redemonstration of bilateral reticular and groundglass opacities with traction bronchiectasis and pulmonary cystic change involving both the upper and lower lobes. Findings are compatible with interstitial lung disease with suggested superimposed atelectasis. 2. No definite focal airspace consolidation to suggest pneumonia. 3. No pleural effusion or pathologically enlarged lymph nodes. 4. Hepatomegaly. 5. Nonobstructing left nephrolithiasis. 6. Additional findings as above. Electronically signed by: Jeanmarie Sharp M.D. 09/28/2017 1:41 PM Dictated Date/Time: 09/28/2017 1:28 PM Consultations: Pulmonary Dr. Denton Pending Studies/Follow-Up: Please refer to hospital course below Medication Reconciliation New Medications: Ipratropium [place] (Ipratropium [place]) 0.5 Mg/2.5 Ml Nebu 0.5 MG INH TID for 7 Days may also use q4h prn for shortness of breath/wheezing Levalbuterol (Levalbuterol) 1.25 Mg/0.5 Ml Nebu 1.25 MG INH TID for 7 Days may also use q4h prn for shortness of breath/wheezing Nystatin (Nystatin) 5 Ml Susp 5 ML PO QID for 5 Days, #100 ML 0 Refills Continued Medications: Acetaminophen (Acetaminophen) 500 Mg Tab 1000 MG PO UD PRN for Pain, TAB MAXIMUM 2 GM APAP DAY Albuterol Hfa (Ventolin Hfa) 200 Puffs/47717 Mcg Aers 2 PUFFS INH Q6H PRN for SOB/Wheezing Azithromycin (Zithromax) 250 Mg Tab 250 MG PO UD PRN for Rescue Kit, TAB RESCUE KIT FOLLOWS: TAKE 2 TABLETS FIRST DAY THEN ONE TABLET DAILY FOR 4 DAYS Brexpiprazole (Rexulti) 2 Mg Tab 2 MG PO DAILY Bupropion (Wellbutrin Sr) 100 Mg Ertab 100 MG PO QAM TAKE THIS MEDICATION WITH FOOD Llupgui-Dayt-Ruculgq D-Vitamin (Calcium Soft Chews 963-3-4814-40 mg-Unt-Mcg) 1 Chw Chw 1 TAB PO BID Celecoxib (Celebrex) 100 Mg Cap 200 MG PO DAILY for 30 Days, #60 CAP Clonazepam (Klonopin) 0.5 Mg Tab 0.5 TAB PO TID, TAB Clozapine (Clozapine) 100 Mg Tab 100 MG PO TID Docusate Sodium (Docusate Sodium) 100 Mg Cap 100 MG PO BID Escitalopram Oxalate (Escitalopram Oxalate) 20 Mg Tab 30 MG PO QAM Fenofibrate (Fenofibrate) 48 Mg Tab 48 MG PO QAM Ferrous Sulfate (Ferrous Sulfate) 325 Mg Tab 325 MG PO BIDM Fluticasone Furoate-Vilanterol (Breo Ellipta) 1 Inh Inh 1 PUFF INH QAM RINSE MOUTH AFTER USE Fluticasone Propionate (Nasal) (Flonase Allergy Relief) 50 Mcg/Act Spr 2 SPRAYS JOSE QAM Folic Acid (Folic Acid) 1 Mg Tab 1 MG PO DAILY Gabapentin (Gabapentin) 400 Mg Cap 400 MG PO TID Home O2 Therapy (Oxygen) Gas 2-3 LITERS NA DIRECTED, BTL 2 LITERS WITH EXERTION, 3 LITER FOR SLEEP. Magnesium Hydroxide (Milk Of Magnesia) 30 Ml Susp 30 ML PO DAILY PRN for Constipation, ML Menaquinone-7 (Vitamin K2) 40 Mcg Tab 40 MCG PO DAILY Midodrine (Midodrine HCl) 10 Mg Tab 10 MG PO TID TAKES AT 0800, 1200 & 1700. Montelukast Sod (Montelukast Sodium) 10 Mg Tab 10 MG PO HS Prednisone (Prednisone) 20 Mg Tab 20 MG PO UD PRN for Rescue Kit, TAB RESCUE KIT FOLLOWS: TAKE 2 TABLETS (40 MG) DAILY FOR 5 DAYS THEN ONE TABLET (20 MG) DAILY FOR 5 DAYS Ranitidine HCl (Ranitidine HCl) 150 Mg Tab 150 MG PO BID Sennosides-Docusate Sodium (Senna Plus) 1 Tab Tab 1 TAB PO BID Tamsulosin HCl (Tamsulosin HCl) 0.4 Mg Cap 0.4 MG PO HS Umeclidinium [place] (Incruse Ellipta) 62.5 Mcg/Inh Inh 1 PUFF INH QAM Zoledronic Acid (Reclast) 5 Mg/100 Ml Inj 1 DOSE IV YEARLY Discontinued Medications: Cefdinir (Omnicef) 300 Mg Cap 300 MG PO BID, CAP Admission Information HPI (per Admitting provider): DATE OF ADMISSION: 09/27/2017 PRIMARY CARE DOCTOR: Dr. Adam. CHIEF COMPLAINT: Shortness of breath and cough. HISTORY OF PRESENT ILLNESS: History obtained from patient, sister, and records. Medical history significant for chronic respiratory failure secondary to COPD/ ILD on home O2, history of past tobacco and alcohol abuse, history of urinary incontinence, chronic hep C, schizoaffective disorder, history of MRSA, orthostatic hypotension on Midodrine, history of esophageal dysfunction, hx DVT sp Coumadin. Recent confinement last week for UTI/fall. Urine CS grew citrobacter. Patient discharged home on cefdinir course. Three days history of cough symptoms, productive of brownish-greenish sputum. increasing shortness of breath, no fever, no chills, occasional coughing from swallowing issues if she's not careful as per patient. Worsening shortness of breath, no chest pain. No emesis. Home O2 not enough as per patient. Patient received Solu-Medrol and Albuterol at the ER. MEDICAL HISTORY: As above. A 2D echo from April 2017 showed EF of 60%, LVH, grade 1 diastolic dysfunction PAST SURGICAL HISTORY: She has had back surgery, hysterectomy, cataract surgery, tonsillectomy. HOME MEDICATIONS: Include Celebrex, Omnicef caution with sodium, escitalopram, ferrous sulfate, Ellipta, fenofibrate, Flonase, folic acid, gabapentin, home O2, milk of mag, vitamin K2, midodrine, montelukast, Zantac, Senokot-S, tamsulosin, Ellipta, Reclast, Ventolin, Wellbutrin, Klonopin, clozapine. ALLERGIES: ALLERGIC TO FLUPHENAZINE, HALDOL, HYDROCODONE, HYDROXYZINE, LITHIUM, MOLINDONE, OXYCODONE, MORPHINE. FAMILY HISTORY: Heart disease. PERSONAL AND SOCIAL HISTORY: Past tobacco/ETOH abuse. On disability. Lives at the basement of home; patient mother and sister live above her. REVIEW OF SYSTEMS: As per HPI, all 10 systems reviewed, all other ROS negative. Physical Exam (per Admitting): VITAL SIGNS: Blood pressure was noted to be 125/70, pulse rate 124, RR 26, temperature 37, sats 86 on room air, later 94 on 4 liters. GENERAL: Noted to be respiratory distress, looks older for stated age. Obese. SKIN: Normal color, warm. HEENT: [place] palpebral conjunctivae. No ptosis. Dry mucosa. O2 mask in place NECK: Short, supple. CHEST: Decreased breath sounds. Rhonchi, left greater than right. HEART: Tachycardic. No murmur. ABDOMEN: Some distention, non-tender. EXTREMITIES: No edema, no tenderness. No gross deformities. NEUROLOGIC: Coherent. No gross focality. Hospital Course EXACERBATION COPD Presented to ED with cough and worsening dyspnea. Chest x-ray demonstrated bilateral densities, similar to before. Received IV methylprednisolone in ED. Received prednisone 40 mg daily 7 days --Improved overall continue Nebs TID and PRN LOWER RESPIRATORY TRACT INFECTION Possible pneumonia vs bronchitis. Patient presented with productive cough. Chest x-ray showed bilateral densities as previously noted. Sputum sent for gram stain, C&S and grew normal oral anupama. Blood cultures negative. MRSA screen negative Completed 7 day course of doxycycline and piperacillin / tazobactam IV CHRONIC HYPOXIC RESPIRATORY FAILURE Secondary to COPD. On home O2 2-3 LPM. back to baseline Oxygen supplement SUSPECTED INTERSTITIAL LUNG DISEASE Has been evaluated by [facility] Pulmonary Medicine. Lung biopsy discussed as an option, but patient preferred not to proceed because of concerns about possible complications. POSSIBLE SEPSIS Met criteria for sepsis at time of admission- tachycardia, tachypnea, leukocytosis. Suspected pulmonary infection, possible pneumonia.. STEROID INDUCED HYPERGLYCEMIA Blood sugars as high as 205 after receiving IV methylprednisolone. Not diabetic- Hgb A1C 5.5. Insulin coverage as needed given ORTHOSTATIC HYPOTENSION Continue midodrine. HCV LFT's normal. SCHIZOPHRENIA Continue usual meds. DISPOSITION d/c home follow up with Primary Care Physician Dr. Adam on Sunday October 08, 2017 at 1: 45pm. follow up with Silica Spray Mixer Dr. Denton in 1-2 weeks. Total time spent on discharge = 30 minutes This includes examination of the patient, discharge planning, medication reconciliation, and communication with other providers. Discharge Instructions Discharge Instructions Date of Service Oct 03, 2017. Admission Reason for Admission: Respiratory Failure, [id number] Discharge Discharge Diagnosis / Problem: Acute on chronic hypoxic respiratory failure Discharge Goals Goal(s): Diagnostic testing, Therapeutic intervention Activity Recommendations Activity Limitations: as noted below (No heavy exertion until reevaluated by primary care physician) Lifting Limitations: until after follow-up appointment Exercise/Sports Limitations: until after follow-up appointment Driving or Machine Use: No driving . Instructions / Follow-Up Instructions / Follow-Up Please refer to your new medication list and follow instructions carefully. Please call your primary care physician or return to the ER immediately if with worsening of symptoms. follow up with Primary Care Physician Dr. Adam on Sunday October 08, 2017 at 1: 45pm. follow up with [facility] tunnel inspector Dr. Denton in 1- 2 weeks. tel no. Current Hospital Diet Patient's current hospital diet: Diabetes Type 2 Diet Discharge Diet Recommended Diet: Diabetes Type 2 Diet Pending Studies Studies pending at discharge: no Laboratory Results Hemoglobin A1c Test 8/2/18 05:05 Range/Units Estimated Average Glucose 111 mg/dl Hemoglobin A1c 5.5 4.5-5.6 % Medical Emergencies . Who to Call and When: Medical Emergencies: If at any time you feel your situation is an emergency, please call 911 immediately. . Non-Emergent Contact Non-Emergency issues call your: Primary Care Provider, Silica Spray Mixer Call Non-Emergent contact if: you have a fever, your pain is not controlled, your pain is worsening, your pain is unusual for you, your pain is concerning you, you have any medication questions . . "Provider Documentation" section prepared by Jose Alberto Diego. .
[2017-10-03 17:21] VITALS: BP 105/72; PULSE 84; TEMP 36.6; O2SAT 95
[2017-10-03] MEDS ORDERED: LEVALBUTEROL 1.25MG/0.5ML NEB INH SCH ×3 (19:00→20:00)
[2017-10-03] MEDS ORDERED: IPRATROPIUM BROMIDE NEB SOLN 0.02% 2.5 ML VIAL INH SCH ×3 (19:00→20:00)
[2017-10-03 19:29] VITALS: PULSE 88; O2SAT 94
[2017-10-04] MEDS ORDERED: ALBINS INH ×3 (10:39→12:49)
[2017-10-04] MEDS ORDERED: ATRINS INH ×2 (10:39→12:48)
[2017-10-04] MEDS ORDERED: IPRATROPIUM BROMIDE NEB SOLN 0.02% 2.5 ML VIAL INH SCH (14:00)
[2017-10-04] MEDS ORDERED: ALBUTEROL 0.083% NEBU SOLN 3 ML VIAL INH SCH (14:00)
[2017-10-05] MEDS ORDERED: ATRINS INH (10:28)
[2017-10-05] MEDS ORDERED: ALBINS INH (10:28)
== END 2017-10-03 20:00 | disposition home health service (06) | DRG 871 ==
LOC: EDBD 04:50 → C.EDA 04:51 → UNDOADMIN 05:50 → C.2E 05:50 → ENRESERV 06:04 → C.4E 09-29 15:10
PROVIDERS: ADMIT Internal Medicine; ATTEND Internal Medicine
DX: A41.9 Sepsis, unspecified organism (principal); J18.9 Pneumonia, unspecified organism; J96.21 Acute and chronic respiratory failure with hypoxia; J44.0 Chronic obstructive pulmonary disease with (acute) lower respiratory infection; J44.1 Chronic obstructive pulmonary disease with (acute) exacerbation; J84.9 Interstitial pulmonary disease, unspecified; F20.0 Paranoid schizophrenia; Z87.891 Personal history of nicotine dependence; Z88.5 Allergy status to narcotic agent; Z88.8 Allergy status to other drugs, medicaments and biological substances; B18.2 Chronic viral hepatitis C; F10.10 Alcohol abuse, uncomplicated; I95.1 Orthostatic hypotension; R73.03 Prediabetes; Z86.13 Personal history of malaria; K22.5 Diverticulum of esophagus, acquired; T38.0X5A Adverse effect of glucocorticoids and synthetic analogues, initial encounter; R73.9 Hyperglycemia, unspecified; Y92.239 Unspecified place in hospital as the place of occurrence of the external cause

== ENCOUNTER → 2017-10-05 | Outpatient (CLI) | payer OTHER ==
[~2017-10-05] MED LIST changes: +ALBINS INH; +ATRINS INH; -CEFD300C3 PO; +CLB100 PO; -MCLIN; +NYSS5 PO; +OXGN
--- NOTE | 2017-10-05 17:59 | DIAGNOSTIC IMAGING REPORT ---
ULTRASOUND BILATERAL LOWER EXTREMITY VENOUS CLINICAL HISTORY: Bilateral leg pain. COMPARISON STUDY: Bilateral lower extremity venous ultrasound dated 03/04/2017. TECHNIQUE: Real-time, grayscale, and color Doppler sonography of the deep veins of the right and left lower extremity was performed from the inguinal crease to the calf. Compression and augmentation were utilized. FINDINGS: There is no sonographic evidence of deep venous thrombosis identified in the right or left lower extremity. The common femoral, superficial femoral, and popliteal veins are patent and normally compressible bilaterally. The greater saphenous vein and the profunda femoris vein at the junction with the common femoral vein are clear in both legs. The visualized calf veins are patent bilaterally. IMPRESSION: There is no sonographic evidence of deep venous thrombosis identified in the right or left lower extremity. Electronically signed by: Hubert Ferreira M.D. 10/05/2017 5:58 PM Dictated Date/Time: 10/05/2017 5:57 PM
== END | disposition home or self-care (01) ==
LOC: C.ULTR 17:03
PROVIDERS: ATTEND Family Medicine
DX: M79.661 Pain in right lower leg (principal); M79.662 Pain in left lower leg

== ENCOUNTER 2017-10-15 18:46 | Emergency (ER) | payer OTHER ==
[~2017-10-15] VITALS: Ht 165.1 cm; Wt 93.3 kg
[2017-10-15 18:56] VITALS: Ht 165.1 cm; Wt 93.3 kg
--- NOTE | 2017-10-15 20:00 | DIAGNOSTIC IMAGING REPORT ---
CHEST ONE VIEW PORTABLE CLINICAL HISTORY: Chest pain. COMPARISON STUDY: Chest radiograph September 27, [address] September 28, 2017. FINDINGS: A right internal jugular [id number] is in place. Postoperative findings within the spine are again noted. Old bilateral rib fractures are noted.. There is no pneumothorax or pleural effusion. Interstitial thickening within the lungs is unchanged. The appearance of the chest is unchanged. No superimposed consolidation is identified. IMPRESSION: No acute cardiopulmonary findings. No change in appearance of the chest. Electronically signed by: Benjamin Summers M.D. 10/15/2017 7:59 PM Dictated Date/Time: 10/15/2017 7:57 PM
[2017-10-15 20:37] LABS: BASO % 0.1 %; BASO ABS # 0.01 K/uL (0-0.2); EOS % 0.7 %; EOS ABS # 0.07 K/uL (0-0.5); HEMATOCRIT 39.4 % (37-47); HEMOGLOBIN 12.8 g/dL (12.0-16.0); IG# 0.02 K/uL (0.00-0.02); LYMPH % 9.9 %; LYMPH ABS # 0.97 K/uL (1.2-3.4); MEAN CELL VOLUME 96.8 fL (80-100); MEAN CORPUSCULAR HEMOGLOBIN 31.4 pg (25-34); MEAN CORPUSCULAR HGB CONC 32.5 g/dl (32-36); MEAN PLATELET VOLUME 10.4 fL (7.4-10.4); MONO ABS # 0.79 K/uL (0.11-0.59); NEUT % 81.1 %; NEUT ABS # 7.97 K/uL (1.4-6.5); PLATELET COUNT 160 K/uL (130-400); RED CELL DISTRIBUTION WIDTH CV 13.4 % (11.5-14.5); RED CELL DISTRIBUTION WIDTH SD 47.6 fL (36.4-46.3); WHITE BLOOD COUNT 9.83 K/uL (4.8-10.8)
[2017-10-15] MEDS ORDERED: METH-445 PO (20:54)
[2017-10-15] MEDS ORDERED: IPRA-64 INH (20:56)
[2017-10-15] MEDS ORDERED: DICL1GEL12 TD (20:58)
[2017-10-15] MEDS ORDERED: NYSS/ PO (21:00)
--- NOTE | 2017-10-15 21:00 | EMERGENCY ROOM VISIT NOTE ---
History Report prepared by Stanley: Annetta Garcia Under the Supervision of: Dr. Umer Howard M.D. First contact with patient: 19:09 Chief Complaint: MENTAL HEALTH EVALUATION Stated Complaint: MHID History of Present Illness The patient is a 56 year old female who presents to the Emergency Room for a mental health evaluation. The patient states that she has a history of depression. She states that recently she has felt like she cannot suffer any longer. She states that she has no worth and cannot take it anymore. She states that she called [facility] at home and they didn't call back right away so she called 911. She states that right before the ambulance came to get her [facility] called back and she hung up with them. She states that she wants to go inpatient and has been inpatient at [address] [place] [address] in the past. She notes that she wears oxygen at all times. The patient complains of mild shortness of breath. The patient denies trying to hurt herself, any overdose, taking extra of her medications, missing any of her medications, chest pain, abdominal pain, cough, fever, leg pain, leg swelling, homicidal ideation, auditory hallucinations, use of alcohol, and use of drugs. Source of History: patient Onset: today Position: head Quality: other (mental health) Timing: worsening Associated Symptoms: + SOB, No fevers, No cough, No chest pain, No abdominal pain Note: The patient denies trying to hurt herself, any overdose, taking extra of her medications, missing any of her medications, leg pain, leg swelling, homicidal ideation, auditory hallucinations, use of alcohol, and use of drugs. Review of Systems See HPI for pertinent positives & negatives. A total of 10 systems reviewed and were otherwise negative. Past Medical & Surgical Medical Problems: (1) Accidental drug overdose (2) Alcohol abuse (3) Aspiration pneumonia (4) Cataract (5) Chest pain (6) Chronic back pain (7) Chronic hepatitis C (8) Chronic obstructive lung disease (9) Chronic paranoid schizophrenia (10) Closed fracture of femur (11) Contusion of head (12) COPD (chronic obstructive pulmonary disease) (13) Deep venous thrombosis (14) Depression (15) Drug abuse (16) Dyspnea (17) Fall (18) Gastroesophageal reflux disease (19) Hepatitis C (20) Hypoxia (21) Hysterectomy (22) icd code J84.848 (23) icd code J84.848 (24) [id number] (25) Leukocytosis (26) Osteomyelitis (27) Osteoporosis (28) Past Psych Meds (29) Respiratory failure, [id number] (30) S/P ORIF (open reduction internal fixation) fracture (31) Schizoaffective disorder (32) Seizure (33) Sepsis (34) Suicidal ideation (35) Syncope and collapse (36) Tinea (37) Tobacco user (38) Urinary retention with incomplete bladder emptying (39) Urinary tract infection, recurrent (40) UTI (urinary tract infection) Surgical Problems: (1) H/O colonoscopy (2) History of hysterectomy (3) S/p thoracic spinal surgery (4) S/P tonsillectomy Old medical records were reviewed. Nurse's notes were reviewed and I agree with. Family History FH: lung cancer GRANDMOTHER Thyroid disorder MOTHER SISTER Social History Smoking Status: Former Smoker Alcohol Use: none Drug Use: none, other Marital Status: single Housing Status: lives with family Occupation Status: disabled Current/Historical Medications Scheduled Bismuth Subsalicylate (Pepto Bismol Chew Tab), 262 TAB PO BID Brexpiprazole (Rexulti), 2 MG PO DAILY Bupropion HCl (Bupropion HCl Sr), 100 MG PO DAILY Calcitonin ([place]) (Calcitonin [place]), 1 SPRAY NA DAILY Calcium W/ Vitamins D & K (Calcium + D + K), 1 TAB PO BID Celecoxib (Celebrex), 200 MG PO DAILY Clonazepam (Klonopin), 0.5 TAB PO TID Clozapine (Clozapine), 100 MG PO TID Diclofenac Sodium (Topical) (Voltaren 1% Top Gel), 1 APPLN TD BID Docusate Sodium (Docusate Sodium), 100 MG PO BID Escitalopram Oxalate (Escitalopram Oxalate), 20 MG PO QAM Fenofibrate (Fenofibrate), 48 MG PO QAM Ferrous Sulfate (Ferrous Sulfate), 325 MG PO BIDM Fluticasone Furoate-Vilanterol (Breo Ellipta), 1 PUFF INH QAM Fluticasone Propionate (Nasal) (Flonase Allergy Relief), 2 SPRAYS JOSE QAM Folic Acid (Folic Acid), 1 MG PO DAILY Gabapentin (Gabapentin), 400 MG PO TID Ipratropium-Albuterol (Duoneb), 3 ML INH QID Midodrine (Midodrine HCl), 10 MG PO TID Montelukast Sod (Montelukast Sodium), 10 MG PO HS Nystatin (Nystatin Suspension), 5 ML PO QID Ranitidine HCl (Ranitidine HCl), 150 MG PO BID Sennosides-Docusate Sodium (Senna Plus), 17.2 MG PO BID Umeclidinium Mcbrides (Incruse Ellipta), 1 PUFF INH QAM Zoledronic Acid (Reclast), 1 DOSE IV YEARLY Scheduled PRN Acetaminophen (Acetaminophen), 1,000 MG PO UD PRN for Pain Albuterol Hfa (Ventolin Hfa), 2 PUFFS INH Q6H PRN for SOB/Wheezing Azithromycin (Zithromax), 250 MG PO UD PRN for Rescue Kit Magnesium Hydroxide (Milk Of Magnesia), 30 ML PO DAILY PRN for Constipation Methocarbamol (Robaxin), 1,000 MG PO QID PRN for UNDECIDED Prednisone (Prednisone), 20 MG PO UD PRN for Rescue Kit Allergies Coded Allergies: Hydroxyzine (Verified Allergy, Unknown, UNKNOWN, 09/27/17) INFO FROM [facility] Fluphenazine (Verified Adverse Reaction, Intermediate, confusion, 09/27/17) Haloperidol (Verified Adverse Reaction, Intermediate, "MAKES ME GO INTO BLACKOUT", 09/27/17) Hydrocodone (Verified Adverse Reaction, Intermediate, DROWSY, 09/27/17) Molindone (Verified Adverse Reaction, Intermediate, PT FEELS LIKE SHES "JUMPING OUT OF HER SKIN", 09/27/17) Morphine and Related (Verified Adverse Reaction, Intermediate, DROWSY, 09/27) px was drowsy w/ pinpoint pupils and minimally responsive. stable VS. Following Morphine IR 15mg - 3 doses in prior 24 hours. Naloxone 0.4mg admin 3 times during that period. Oxycodone (Verified Adverse Reaction, Intermediate, DROWSY, 09/27/17) [place] (Verified Adverse Reaction, Mild, "LEVEL CAN GET TOO HIGH", 09/27/17 ) Physical Exam Vital Signs Date Time Temp Pulse Resp B/P (MAP) Pulse Ox O2 Delivery O2 Flow Rate FiO2 10/15/17 23:51 113 24 128/92 99 Nasal Cannula 4.0 8/20/18 22:30 97/73 10/15/17 22:26 110 24 10/15/17 22:00 106 10/15/17 21:56 109 26 97 10/15/17 21:51 113 21 99 Nasal Cannula 4.0 10/15/17 21:21 104 23 96 10/15/17 20:54 10/15/17 20:51 102 16 93 10/15/17 20:21 100 19 98 10/15/17 20:16 98 21 98 Nasal Cannula 4.0 10/15/17 19:57 105 10/15/17 19:53 162/103 87 Room Air 10/15/17 19:46 102 21 91 Nasal Cannula 2.0 10/15/17 18:56 36.4 99 22 153/101 97 Nasal Cannula 2.0 10/15/17 18:55 153/101 Physical Exam General: Non-ill appearing middle aged female wearing baseline oxygen in no acute distress. HEENT: Normal cephalic atraumatic. Pupils are equal round and reactive to light. Extraocular movements are intact. Oropharynx is pink with moist mucous membranes. No swelling of the mouth lips or tongue. Neck: Supple with a midline trachea. No meningeal signs or stiffness, no JVD or bruits. No Stridor. Chest: Faint crackles in bilateral bases. No wheezes or rhonchi. No increased work of breathing. Heart: regular rate and rhythm. Abdomen: Soft nontender, nondistended without rebound guarding or rigidity. Extremities: No cyanosis clubbing or edema. No calf tenderness or assymetry Spine/Back. Non tender to palpation. No CVA tenderness Skin: Good turgor without rashes. Neurologic exam: Cranial nerves two through 12 are intact. Motor and sensation are intact and symmetrical throughout. Psych: Complains of feeling depressed. Denies suicidal ideations or hearing voices. Medical Decision & Procedures ER Provider Diagnostic Interpretation: Radiology results as stated below per my review and radiologist interpretation: CHEST ONE VIEW PORTABLE CLINICAL HISTORY: Chest pain. COMPARISON STUDY: Chest radiograph September 27, [address] September 28, 2017. FINDINGS: A right internal jugular [id number] is in place. Postoperative findings within the spine are again noted. Old bilateral rib fractures are noted.. There is no pneumothorax or pleural effusion. Interstitial thickening within the lungs is unchanged. The appearance of the chest is unchanged. No superimposed consolidation is identified. IMPRESSION: No acute cardiopulmonary findings. No change in appearance of the chest. Electronically signed by: Benjamin Summers M.D. 10/15/2017 7:59 PM Dictated Date/Time: 10/15/2017 7:57 PM Laboratory Results 10/15/17 20:00 Red Blood Count 4.07, Mean Corpuscular Volume 96.8, Mean Corpuscular Hemoglobin 31.4, Mean Corpuscular Hemoglobin Concent 32.5, Mean Platelet Volume 10.4, Neutrophils (%) (Auto) 81.1, Lymphocytes (%) (Auto) 9.9, Monocytes (%) (Auto) 8.0, Eosinophils (%) (Auto) 0.7, Basophils (%) (Auto) 0.1, Neutrophils # (Auto) 7.97, Lymphocytes # (Auto) 0.97, Monocytes # (Auto) 0.79, Eosinophils # (Auto) 0.07, Basophils # (Auto) 0.01 10/15/17 20:00 Test 10/15/17 18:55 10/15/17 20:00 10/15/17 20:01 10/15/17 20:11 Urine Color YELLOW Urine Appearance TURBID (CLEAR) Urine pH 6.0 (4.5-7.5) Urine Specific [place] 1.007 (1.000-1.030) Urine Protein 1+ (NEG) Urine Glucose (UA) NEG (NEG) Urine Ketones NEG (NEG) Urine Occult Blood 2+ (NEG) Urine Nitrite NEG (NEG) Urine Bilirubin NEG (NEG) Urine Urobilinogen NEG (NEG) Urine Leukocyte Esterase LARGE (NEG) Urine WBC (Auto) >30 /hpf (0-5) Urine RBC (Auto) 5-10 /hpf (0-4) Urine Hyaline Casts (Auto) 1-5 /lpf (0-5) Urine Epithelial Cells (Auto) >30 /lpf (0-5) Urine Bacteria (Auto) 2+ (NEG) Urine Opiates Screen NEG (NEG) Urine Methadone, Qualitative NEG (NEG) Urine Barbiturates NEG (NEG) Urine Phencyclidine (PCP) Level NEG (NEG) Ur Amphetamine/Methamphetamine NEG (NEG) MDMA (Ecstasy) Screen POS (NEG) Urine Benzodiazepines Screen NEG (NEG) Urine Cocaine Metabolite NEG (NEG) Urine Marijuana (THC) NEG (NEG) White Blood Count 9.83 K/uL (4.8-10.8) Red Blood Count 4.07 M/uL (4.2-5.4) Hemoglobin 12.8 g/dL (12.0-16.0) Hematocrit 39.4 % (37-47) Mean Corpuscular Volume 96.8 fL (80-100) Mean Corpuscular Hemoglobin 31.4 pg (25-34) Mean Corpuscular Hemoglobin Concent 32.5 g/dl (32-36) Platelet Count 160 K/uL (130-400) Mean Platelet Volume 10.4 fL (7.4-10.4) Neutrophils (%) (Auto) 81.1 % Lymphocytes (%) (Auto) 9.9 % Monocytes (%) (Auto) 8.0 % Eosinophils (%) (Auto) 0.7 % Basophils (%) (Auto) 0.1 % Neutrophils # (Auto) 7.97 K/uL (1.4-6.5) Lymphocytes # (Auto) 0.97 K/uL (1.2-3.4) Monocytes # (Auto) 0.79 K/uL (0.11-0.59) Eosinophils # (Auto) 0.07 K/uL (0-0.5) Basophils # (Auto) 0.01 K/uL (0-0.2) RDW Standard Deviation 47.6 fL (36.4-46.3) RDW Coefficient of Variation 13.4 % (11.5-14.5) Immature Granulocyte % (Auto) 0.2 % Immature Granulocyte # (Auto) 0.02 K/uL (0.00-0.02) Anion Gap 7.0 mmol/L (3-11) Est Creatinine Clear Calc Drug Dose 60.4 ml/min Estimated GFR () 60.5 Estimated GFR (Non- 52.2 BUN/Creatinine Ratio 16.8 (10-20) Calcium Level 10.0 mg/dl (8.5-10.1) Total Bilirubin 0.5 mg/dl (0.2-1) Aspartate Amino Transf (AST/SGOT) 24 U/L (15-37) Alanine Aminotransferase (ALT/SGPT) 30 U/L (12-78) Alkaline Phosphatase 66 U/L (45-117) Total Protein 8.3 gm/dl (6.4-8.2) Albumin 3.6 gm/dl (3.4-5.0) Globulin 4.7 gm/dl (2.5-4.0) Albumin/Globulin Ratio 0.8 (0.9-2) Thyroid Stimulating Hormone (TSH) 1.110 uIu/ml (0.300-4.500) Salicylates Level 2.1 mg/dl (2.8-20) Acetaminophen Level 9 ug/ml (10-30) Ethyl Alcohol mg/dL < 3.0 mg/dl (0-3) Bedside Troponin I < 0.030 ng/ml (0-0.045) Laboratory studies as stated above per my review. Medications Administered Medications (Trade) Dose Ordered Sig/Janel Route Start Time Stop Time Status Last Admin Dose Admin Albuterol/ Ipratropium (Duoneb) 3 ml NOW STAT INH 10/15/17 23:30 10/15/17 23:34 DC 10/16/17 00:13 3 ML Clonazepam (Klonopin Tab) 0.5 mg NOW STAT PO 10/15/17 23:30 10/15/17 23:34 DC 10/16/17 00:11 0.5 MG Clozapine (Clozaril Tab) 100 mg ONE STAT PO 10/15/17 23:30 10/15/17 23:34 DC 10/16/17 00:11 100 MG Ceftriaxone Sodium (Rocephin Inj) 1 gm NOW STAT IV 10/15/17 23:35 10/15/17 23:36 DC 10/16/17 00:18 1 GM Ketorolac Tromethamine (Toradol Inj) 30 mg NOW STAT IV 10/16/17 01:04 10/16/17 01:05 DC 10/16/17 01:15 30 MG ECG Per My Interpretation Indication: SOB/dyspnea Rate (beats per minute): 102 Rhythm: sinus tachycardia Findings: no acute ischemic change, other (old inferior infarct) Comparison ECG Date: 09/27/2017 Change: no significant change ED Course 1910: Past medical records reviewed. The patient was evaluated in room A5, and a complete history and physical examination were performed. 2055: I reevaluated the patient and she is resting comfortably. She is hungry and denies any urinary symptoms. 2212: I reevaluated the patient and she is doing well. 5: I reevaluated the patient and she needs to stay. I will order her evening medications, but the patient cannot remember what she takes. 2330: Ordered Clozapine 100 mg, Clonazepam 0.5 mg PO, Duoneb 3 ml INH. 233: I reevaluated the patient and updated her on her test results. 2335: Ordered Rocephin Inj 1 gm IV. 4: Ordered Toradol Inj 30 mg IV. 0230: The patient was signed out to Dr. Erazo at change of shift awaiting placement. 0800: Ordered Midodrine 10 mg PO. 0900: Ordered Gabapentin 400 mg PO. 2100: Singular Tab 10 mg PO. Medical Decision Differential diagnoses include depression, anxiety, suicidal ideation, pneumonia , CHF, COPD, tox. This patient comes in as described above. She was placed in room A5. She does have a complex medical history is brought in after having thoughts of hurting herself. She appears well otherwise she does have a chronic oxygen she says that she has no acute respiratory symptoms or any urinary symptoms or fever chills or trauma. She has not taken any overdose. Multiple blood testing was obtained I also did a chest x-ray and EKG and these did not have any acute findings. She has no acute electrolyte or metabolic abnormalities. Her urinalysis does suggest UTI however she has greater than 30 epithelial cells was likely contaminated. She does seem to be urinating quite a bit so I did cover for the possibility of UTI. she certainly has nothing to suggest pyelonephritis or sepsis .she was given Rocephin 1 g IV. She has been stable. I did give her her evening medications. Our psych mental health case manager saw her and are trying to place her. This is going to be difficult due to her other medical problems. She has been admitted to [facility] [address] before however they have no beds at present. Bed placement is pending and she will be signed out to Dr. Erazo at shift change. Medication Reconcilliation Current Medication List: was personally reviewed by me Blood Pressure Screening Patient's blood pressure: Normal blood pressure Blood pressure disposition: Did not require urgent referral Impression Primary Impression: Suicidal ideation Additional Impressions: Depression UTI (urinary tract infection) Scribe Attestation The scribe's documentation has been prepared under my direction and personally reviewed by me in its entirety. I confirm that the note above accurately reflects all work, treatment, procedures, and medical decision making performed by me. Departure Information Dispostion Still a Patient Referrals Naveed Adam III, M.D. (PCP) Patient Instructions My [facility] Problem Qualifiers
[2017-10-15] MEDS ORDERED: BISM262T3 PO (21:02)
[2017-10-15] MEDS ORDERED: CALC750T PO (21:07)
[2017-10-15 21:12] LABS: ALBUMIN 3.6 gm/dl (3.4-5.0); CREATININE 1.16 mg/dl (0.60-1.20); POTASSIUM 3.8 mmol/L (3.5-5.1); TOTAL PROTEIN 8.3 gm/dl (6.4-8.2)
[2017-10-15] MEDS ORDERED: WLLSR100 PO (21:21)
[2017-10-15] MEDS ORDERED: CALC200S6 (21:33)
[2017-10-15] MEDS ORDERED: ALBUT/IPRATROP 3MG/0.5MG NEB 3 ML VIAL INH STA (23:30)
[2017-10-15] MEDS ORDERED: CLONAZEPAM 0.5 MG TAB PO STA (23:30)
[2017-10-15] MEDS ORDERED: CLOZAPINE 100 MG TAB PO STA (23:30)
[2017-10-15] MEDS ORDERED: CEFTRIAXONE SOD INJ 1 GM ADDVIAL IV STA (23:35)
[2017-10-16] MEDS ORDERED: KETOROLAC TROMETHAMINE 30 MG/ML VIAL IV STA (01:04)
[2017-10-16] MEDS ORDERED: GABAPENTIN 400 MG CAP PO STA (02:13)
[2017-10-16] MEDS ORDERED: MONTELUKAST SOD 10 MG TAB PO ONE (02:15)
[2017-10-16] MEDS ORDERED: METHOCARBAMOL 500 MG TAB PO STA (02:16)
--- NOTE | 2017-10-16 04:39 | EMERGENCY ROOM VISIT NOTE ---
ED Visit Note First contact with patient: 04:38 This case was signed out to me at change of shift awaiting bed placement. Currently the bed search was suspended. The patient is sleeping at this time. The bed search will resume in the morning. The case will be signed out to Dr. Gonzalez at change of shift.
--- NOTE | 2017-10-16 06:57 | EMERGENCY ROOM VISIT NOTE ---
ED Visit Note Received patient in signout. History and physical verified by me. We will have pharmacy review patient's meds upon pharmacist arrival. Pt given ZOfran as well as her methacarbamol. Bed search continues Problem List Medical Problems: (1) Accidental drug overdose Status: Resolved (2) Alcohol abuse Permanent Comment: no recent use attends AA Status: Resolved (3) Aspiration pneumonia Status: Resolved (4) Cataract Status: Chronic (5) Chest pain Status: Resolved (6) Chronic back pain Status: Chronic (7) Chronic hepatitis C Status: Chronic (8) Chronic obstructive lung disease Status: Chronic (9) Chronic paranoid schizophrenia Status: Chronic (10) Closed fracture of femur Permanent Comment: s/p ORIF Status: Resolved (11) Contusion of head Status: Resolved (12) COPD (chronic obstructive pulmonary disease) Status: Chronic (13) Deep venous thrombosis Status: Chronic (14) Depression Status: Chronic (15) Drug abuse Permanent Comment: narcotic addiction due to chronic pain attends NA Status: Resolved (16) Dyspnea Status: Resolved (17) Fall Status: Resolved (18) Gastroesophageal reflux disease Status: Chronic (19) Hepatitis C Status: Chronic (20) Hypoxia Status: Chronic (21) Hysterectomy Status: Resolved (22) Osteomyelitis Status: Resolved (23) Osteoporosis Status: Chronic (24) S/P ORIF (open reduction internal fixation) fracture Permanent Comment: femur Status: Chronic (25) Schizoaffective disorder Status: Chronic (26) Seizure Status: Resolved (27) Sepsis Status: Resolved (28) Suicidal ideation Status: Resolved (29) Syncope and collapse Status: Resolved (30) Tinea Status: Resolved (31) Tobacco user Status: Chronic (32) UTI (urinary tract infection) Status: Resolved Surgical Problems: (1) H/O colonoscopy Status: Chronic (2) History of hysterectomy Status: Chronic (3) S/p thoracic spinal surgery Permanent Comment: 07/07/2015; Dr. Caballero at [facility] [place] Status: Chronic (4) S/P tonsillectomy Status: Chronic Current/Historical Medications Scheduled Bismuth Subsalicylate (Pepto Bismol Chew Tab), 262 TAB PO BID Brexpiprazole (Rexulti), 2 MG PO DAILY Bupropion HCl (Bupropion HCl Sr), 100 MG PO DAILY Calcitonin ([place]) (Calcitonin [place]), 1 SPRAY NA DAILY Calcium W/ Vitamins D & K (Calcium + D + K), 1 TAB PO BID Celecoxib (Celebrex), 200 MG PO DAILY Clonazepam (Klonopin), 0.5 TAB PO TID Clozapine (Clozapine), 100 MG PO TID Diclofenac Sodium (Topical) (Voltaren 1% Top Gel), 1 APPLN TD BID Docusate Sodium (Docusate Sodium), 100 MG PO BID Escitalopram Oxalate (Escitalopram Oxalate), 20 MG PO QAM Fenofibrate (Fenofibrate), 48 MG PO QAM Ferrous Sulfate (Ferrous Sulfate), 325 MG PO BIDM Fluticasone Furoate-Vilanterol (Breo Ellipta), 1 PUFF INH QAM Fluticasone Propionate (Nasal) (Flonase Allergy Relief), 2 SPRAYS JOSE QAM Folic Acid (Folic Acid), 1 MG PO DAILY Gabapentin (Gabapentin), 400 MG PO TID Ipratropium-Albuterol (Duoneb), 3 ML INH QID Midodrine (Midodrine HCl), 10 MG PO TID Montelukast Sod (Montelukast Sodium), 10 MG PO HS Nystatin (Nystatin Suspension), 5 ML PO QID Ranitidine HCl (Ranitidine HCl), 150 MG PO BID Sennosides-Docusate Sodium (Senna Plus), 17.2 MG PO BID Umeclidinium Eureka (Incruse Ellipta), 1 PUFF INH QAM Zoledronic Acid (Reclast), 1 DOSE IV YEARLY Scheduled PRN Acetaminophen (Acetaminophen), 1,000 MG PO UD PRN for Pain Albuterol Hfa (Ventolin Hfa), 2 PUFFS INH Q6H PRN for SOB/Wheezing Azithromycin (Zithromax), 250 MG PO UD PRN for Rescue Kit Magnesium Hydroxide (Milk Of Magnesia), 30 ML PO DAILY PRN for Constipation Methocarbamol (Robaxin), 1,000 MG PO QID PRN for UNDECIDED Prednisone (Prednisone), 20 MG PO UD PRN for Rescue Kit Allergies Coded Allergies: Hydroxyzine (Verified Allergy, Unknown, UNKNOWN, 09/27/17) [place] [facility] [place]uphenazine (Verified Adverse Reaction, Intermediate, confusion, 09/27/17) Haloperidol (Verified Adverse Reaction, Intermediate, "MAKES ME GO INTO BLACKOUT", 09/27/17) Hydrocodone (Verified Adverse Reaction, Intermediate, DROWSY, 09/27/17) Molindone (Verified Adverse Reaction, Intermediate, PT FEELS LIKE SHES "JUMPING OUT OF HER SKIN", 09/27/17) Morphine and Related (Verified Adverse Reaction, Intermediate, DROWSY, 09/27) px was drowsy w/ pinpoint pupils and minimally responsive. stable VS. Following Morphine IR 15mg - 3 doses in prior 24 hours. Naloxone 0.4mg admin 3 times during that period. Oxycodone (Verified Adverse Reaction, Intermediate, DROWSY, 09/27/17) [place]aco (Verified Adverse Reaction, Mild, "LEVEL CAN GET TOO HIGH", 09/27/17 ) Vital Signs Date Time Temp Pulse Resp B/P (MAP) Pulse Ox O2 Delivery O2 Flow Rate FiO2 10/16/17 12:14 113 10/16/17 10:01 115 22 94 Nasal Cannula 2.0 10/16/17 10:00 117 10/16/17 07:34 114 24 102/67 96 Nasal Cannula 4.0 10/15/17 23:51 113 24 128/92 99 Nasal Cannula 4.0 10/15/17 22:30 97/73 10/15/17 22:26 110 24 10/15/17 22:00 106 10/15/17 21:56 109 26 97 10/15/17 21:51 113 21 99 Nasal Cannula 4.0 10/15/17 21:21 104 23 96 10/15/17 20:54 10/15/17 20:51 102 16 93 10/15/17 20:21 100 19 98 10/15/17 20:16 98 21 98 Nasal Cannula 4.0 10/15/17 19:57 105 10/15/17 19:53 162/103 87 Room Air 10/15/17 19:46 102 21 91 Nasal Cannula 2.0 10/15/17 18:56 36.4 99 22 153/101 97 Nasal Cannula 2.0 10/15/17 18:55 153/101 Laboratory Results 10/15/17 20:00 Red Blood Count 4.07, Mean Corpuscular Volume 96.8, Mean Corpuscular Hemoglobin 31.4, Mean Corpuscular Hemoglobin Concent 32.5, Mean Platelet Volume 10.4, Neutrophils (%) (Auto) 81.1, Lymphocytes (%) (Auto) 9.9, Monocytes (%) (Auto) 8.0, Eosinophils (%) (Auto) 0.7, Basophils (%) (Auto) 0.1, Neutrophils # (Auto) 7.97, Lymphocytes # (Auto) 0.97, Monocytes # (Auto) 0.79, Eosinophils # (Auto) 0.07, Basophils # (Auto) 0.01 10/15/17 20:00 Test 10/15/17 18:55 10/15/17 20:00 10/15/17 20:01 10/15/17 20:11 Urine Color YELLOW Urine Appearance TURBID (CLEAR) Urine pH 6.0 (4.5-7.5) Urine Specific [place] 1.007 (1.000-1.030) Urine Protein 1+ (NEG) Urine Glucose (UA) NEG (NEG) Urine Ketones NEG (NEG) Urine Occult Blood 2+ (NEG) Urine Nitrite NEG (NEG) Urine Bilirubin NEG (NEG) Urine Urobilinogen NEG (NEG) Urine Leukocyte Esterase LARGE (NEG) Urine WBC (Auto) >30 /hpf (0-5) Urine RBC (Auto) 5-10 /hpf (0-4) Urine Hyaline Casts (Auto) 1-5 /lpf (0-5) Urine Epithelial Cells (Auto) >30 /lpf (0-5) Urine Bacteria (Auto) 2+ (NEG) Urine Opiates Screen NEG (NEG) Urine Methadone, Qualitative NEG (NEG) Urine Barbiturates NEG (NEG) Urine Phencyclidine (PCP) Level NEG (NEG) Ur Amphetamine/Methamphetamine NEG (NEG) MDMA (Ecstasy) Screen POS (NEG) Urine Benzodiazepines Screen NEG (NEG) Urine Cocaine Metabolite NEG (NEG) Urine Marijuana (THC) NEG (NEG) White Blood Count 9.83 K/uL (4.8-10.8) Red Blood Count 4.07 M/uL (4.2-5.4) Hemoglobin 12.8 g/dL (12.0-16.0) Hematocrit 39.4 % (37-47) Mean Corpuscular Volume 96.8 fL (80-100) Mean Corpuscular Hemoglobin 31.4 pg (25-34) Mean Corpuscular Hemoglobin Concent 32.5 g/dl (32-36) Platelet Count 160 K/uL (130-400) Mean Platelet Volume 10.4 fL (7.4-10.4) Neutrophils (%) (Auto) 81.1 % Lymphocytes (%) (Auto) 9.9 % Monocytes (%) (Auto) 8.0 % Eosinophils (%) (Auto) 0.7 % Basophils (%) (Auto) 0.1 % Neutrophils # (Auto) 7.97 K/uL (1.4-6.5) Lymphocytes # (Auto) 0.97 K/uL (1.2-3.4) Monocytes # (Auto) 0.79 K/uL (0.11-0.59) Eosinophils # (Auto) 0.07 K/uL (0-0.5) Basophils # (Auto) 0.01 K/uL (0-0.2) RDW Standard Deviation 47.6 fL (36.4-46.3) RDW Coefficient of Variation 13.4 % (11.5-14.5) Immature Granulocyte % (Auto) 0.2 % Immature Granulocyte # (Auto) 0.02 K/uL (0.00-0.02) Anion Gap 7.0 mmol/L (3-11) Est Creatinine Clear Calc Drug Dose 60.4 ml/min Estimated GFR () 60.5 Estimated GFR (Non- 52.2 BUN/Creatinine Ratio 16.8 (10-20) Calcium Level 10.0 mg/dl (8.5-10.1) Total Bilirubin 0.5 mg/dl (0.2-1) Aspartate Amino Transf (AST/SGOT) 24 U/L (15-37) Alanine Aminotransferase (ALT/SGPT) 30 U/L (12-78) Alkaline Phosphatase 66 U/L (45-117) Total Protein 8.3 gm/dl (6.4-8.2) Albumin 3.6 gm/dl (3.4-5.0) Globulin 4.7 gm/dl (2.5-4.0) Albumin/Globulin Ratio 0.8 (0.9-2) Thyroid Stimulating Hormone (TSH) 1.110 uIu/ml (0.300-4.500) Salicylates Level 2.1 mg/dl (2.8-20) Acetaminophen Level 9 ug/ml (10-30) Ethyl Alcohol mg/dL < 3.0 mg/dl (0-3) Bedside Troponin I < 0.030 ng/ml (0-0.045) Medications Administered Medications (Trade) Dose Ordered Sig/Janel Route Start Time Stop Time Status Last Admin Dose Admin Albuterol/ Ipratropium (Duoneb) 3 ml NOW STAT INH 10/15/17 23:30 10/15/17 23:34 DC 10/16/17 00:13 3 ML Midodrine (Proamatine Tab) 10 mg TID@08,12,17 PO 10/16/17 08:00 11/15/17 07:59 10/16/17 11:58 10 MG Clonazepam (Klonopin Tab) 0.5 mg NOW STAT PO 10/15/17 23:30 10/15/17 23:34 DC 10/16/17 00:11 0.5 MG Clozapine (Clozaril Tab) 100 mg ONE STAT PO 10/15/17 23:30 10/15/17 23:34 DC 10/16/17 00:11 100 MG Gabapentin (Neurontin Cap) 400 mg TID PO 10/16/17 09:00 11/15/17 08:59 10/16/17 08:55 400 MG Ceftriaxone Sodium (Rocephin Inj) 1 gm NOW STAT IV 10/15/17 23:35 10/15/17 23:36 DC 10/16/17 00:18 1 GM Ketorolac Tromethamine (Toradol Inj) 30 mg NOW STAT IV 10/16/17 01:04 10/16/17 01:05 DC 10/16/17 01:15 30 MG Gabapentin (Neurontin Cap) 400 mg ONE STAT PO 10/16/17 02:13 10/16/17 02:16 DC 10/16/17 02:45 400 MG Montelukast Sodium (Singulair Tab) 10 mg NOW ONCE PO 10/16/17 02:15 10/16/17 02:16 DC 10/16/17 02:46 10 MG Methocarbamol (Robaxin Tab) 1,000 mg ONE STAT PO 10/16/17 02:16 10/16/17 02:18 DC 10/16/17 02:46 1,000 MG Ondansetron HCl (Zofran Odt) 4 mg ONE STAT PO 10/16/17 11:09 10/16/17 11:12 DC 10/16/17 11:34 4 MG Methocarbamol (Robaxin Tab) 1,000 mg TID PRN PO 10/16/17 11:15 11/15/17 11:14 10/16/17 11:59 1,000 MG Departure Information Impression Primary Impression: Suicidal ideation Additional Impressions: Depression UTI (urinary tract infection) Dispostion Still a Patient Referrals Naveed Adam III, M.D. (PCP) Forms HOME CARE DOCUMENTATION FORM, IMPORTANT VISIT INFORMATION Patient Instructions [facility]ly [facility] Problem Qualifiers
[2017-10-16] MEDS: MIDODRINE 10 MG TAB PO SCH ×3 (08:55→16:41)
[2017-10-16] MEDS: GABAPENTIN 400 MG CAP PO SCH ×2 (08:55→14:35)
[2017-10-16] MEDS ORDERED: ONDANSETRON 4MG OD TAB PO STA (11:09)
[2017-10-16] MEDS ORDERED: METHOCARBAMOL 500 MG TAB PO PRN (11:15)
[2017-10-16] MEDS ORDERED: IPRATROPIUM BROMIDE/ALBUTEROL respimat INH INH SCH (17:00)
[2017-10-16] MEDS ORDERED: NYSTATIN SUSP 500,000 U/5 ML UDC PO SCH (17:00)
[2017-10-16] MEDS ORDERED: FERROUS SULFATE 325 MG TAB PO SCH (18:00)
[2017-10-16 18:26] VITALS: BP 113/72; PULSE 107; TEMP 36.4; O2SAT 93
[2017-10-16] MEDS ORDERED: RANITIDINE HCL 150 MG TAB PO SCH (21:00)
[2017-10-16] MEDS ORDERED: CALCIUM 600MG + VIT D 400 IU TAB PO SCH (21:00)
[2017-10-16] MEDS ORDERED: CLONAZEPAM 0.5 MG TAB PO SCH (21:00)
[2017-10-16] MEDS ORDERED: BISMUTH SUBSALICYLATE 262 MG CHEW PO SCH (21:00)
[2017-10-16] MEDS ORDERED: DICLOFENAC SOD 1% GEL 100 GM TUBE EXT SCH (21:00)
[2017-10-16] MEDS ORDERED: SENNA 8.6 MG TAB PO SCH (21:00)
[2017-10-16] MEDS ORDERED: MONTELUKAST SOD 10 MG TAB PO SCH ×2 (21:00)
[2017-10-16] MEDS ORDERED: CLOZAPINE 100 MG TAB PO SCH (21:00)
[2017-10-16] MEDS ORDERED: DOCUSATE SODIUM 100 MG CAP PO SCH (21:00)
[2017-10-17] MEDS ORDERED: MAGNESIUM HYDROXIDE SUSP 30 ML UDC PO SCH (09:00)
[2017-10-17] MEDS ORDERED: CALCITONIN SALMON NA 200 IU/AC 3.7 ML BTL SCH (09:00)
[2017-10-17] MEDS ORDERED: ESCITALOPRAM OXALATE 20 MG TAB PO SCH (09:00)
[2017-10-17] MEDS ORDERED: FLUTICASONE PROP HFA INH 44 MCG INHALER INH SCH (09:00)
[2017-10-17] MEDS ORDERED: FLUTICASONE PROPIONATE NA SPR 16 GM BTL SCH (09:00)
[2017-10-17] MEDS ORDERED: FENOFIBRATE 48 MG TAB PO SCH (09:00)
--- NOTE | 2017-10-17 15:06 | Pharmacy Progress Note ---
ED Pharmacist Culture FollowUp Date of Service: Oct 17, 2017. Urine culture is growing >100,000CFU/mL citrobacter freundii. UA: no nitrate, large LE, >30 WBC, +2 bacteria, but > 30 epis which likely reflects contamination Reviewed result w/ Dr Jain. Plan is to forward these results to [facility] [phone]. I called this facility to request a fax number. The clerical secretary took my name and phone number and said a member of medical team would call me back at . Awaiting call back. Would recommend repeat UA if pt has s/s of UTI along w/ Urine Cx if UA suggestive of infection
== END 2017-10-16 18:27 ==
LOC: EDBD 18:46 → C.EDA 18:47
DX: R45.851 Suicidal ideations (principal); F32.9 Major depressive disorder, single episode, unspecified; N39.0 Urinary tract infection, site not specified; F20.0 Paranoid schizophrenia; J44.9 Chronic obstructive pulmonary disease, unspecified; J96.20 Acute and chronic respiratory failure, unspecified whether with hypoxia or hypercapnia; K21.9 Gastro-esophageal reflux disease without esophagitis; B19.20 Unspecified viral hepatitis C without hepatic coma; G89.29 Other chronic pain; Z87.891 Personal history of nicotine dependence; Z88.6 Allergy status to analgesic agent; Z88.8 Allergy status to other drugs, medicaments and biological substances

== ENCOUNTER 2018-03-02 20:22 | Inpatient (IN) ==
[2018-03-02] MEDS ORDERED: methylPREDNISolone 125 MG/2 ML VIAL IV STA (21:09)
[2018-03-02] MEDS ORDERED: ALBUT/IPRATROP 3MG/0.5MG NEB 3 ML VIAL NEB STA ×2 (21:09→23:12)
[2018-03-02 21:20] LABS: Alanine Aminotransferase 41 U/L (12-78); Aspartate Aminotransferase 39 U/L (15-37); BUN Creatinine Ratio 21.6 (10-20); Blood Urea Nitrogen 20 mg/dl (7-18); Calcium 9.2 mg/dl (8.5-10.1); Carbon Dioxide 30 mmol/L (21-32); Chloride 102 mmol/L (98-107); Creatinine Clr Calc Pharmacy 78.5 ml/min; Est GFR (African American) 79.6; Est GFR (Non-African American) 68.6; Glucose 173 mg/dl (70-99); Magnesium 1.9 mg/dl (1.8-2.4); Potassium 4.1 mmol/L (3.5-5.1); Sodium 136 mmol/L (136-145)
[2018-03-02 21:21] LABS: Appearance Urine Clear (Clear); Bilirubin Urine Negative (Negative); Color Urine Yellow; Glucose Urine UA Negative (Negative); Ketones Urine Negative (Negative); Leukocyte Esterase Urine Trace (Negative); Nitrite Urine Negative (Negative); Protein Urine Negative (Negative); Specific Gravity Urine 1.006 (1.000-1.030); Urobilinogen Urine Negative (Negative)
[2018-03-02 21:25] LABS: Albumin Globulin Ratio 0.7 (0.9-2); Alkaline Phosphatase 56 U/L (45-117); Bilirubin,Total 0.3 mg/dl (0.2-1); Troponin I < 0.015 ng/ml (0-0.045)
[2018-03-02 21:29] LABS: Basophils # (auto) 0.03 K/uL (0-0.2); Basophils % (auto) 0.3 %; Eosinophils # (auto) 0.47 K/uL (0-0.5); Eosinophils % (auto) 4.2 %; Hematocrit (blood only) 39.1 % (37-47); Hemoglobin 12.4 g/dL (12.0-16.0); Immature Granulocytes # (auto) 0.07 K/uL (0.00-0.02); Immature Granulocytes % (auto) 0.6 %; Lymphocytes % (auto) 18.6 %; Mean Corpuscular Hgb Conc 31.7 g/dL (32-36); Mean Corpuscular Volume 97.5 fL (80-100); Mean Platelet Volume 10.6 fL (7.4-10.4); Monocytes # (auto) 0.94 K/uL (0.11-0.59); Monocytes % (auto) 8.3 %; Neutrophils # (auto) 7.68 K/uL (1.4-6.5); Platelet Count 180 K/uL (130-400); RDW Coefficient of Variation 13.7 % (11.5-14.5); RDW Standard Deviation 48.9 fL (36.4-46.3); Red Blood Count 4.01 M/uL (4.2-5.4); White Blood Count 11.29 K/uL (4.8-10.8)
[2018-03-02 21:42] LABS: Partial Thromboplastin Ratio 0.8; Partial Thromboplastin Time 21.3 Seconds (21.0-31.0); Prothrombin Time 10.4 Seconds (9.0-12.0)
--- NOTE | 2018-03-02 21:51 | XRay Report ---
XR chest 1V portable CLINICAL HISTORY: Dyspnea dyspnea COMPARISON STUDY: N 15/10/2017 FINDINGS: Similar findings compared to the prior study including a left perihilar infiltrative change as well as right apical infiltrative change. Postoperative changes to the thoracic spine are again n oted. There is a central catheter in superior vena cava. IMPRESSION: Findings consistent with bilateral parenchymal infiltrates versus atypical pulmonary fredrick ma. The above report was generated using voice recognition software. It may contain grammatical, syntax or spelling errors. Electronically signed by: Manfred Noriega M.D. 03/02/2018 9:50 PM
[2018-03-02 22:10] LABS: Bacteria Urine Negative (Negative); RBC Urine 0-4 /hpf (0-4)
[2018-03-02 23:03] LABS: Influenza A virus by PCR Neg for Influ A (Neg); Influenza B virus by PCR Neg for Influ B (Neg)
[2018-03-02] MEDS ORDERED: VANCOMYCIN CONSULT ACTIVE PRN (23:29)
[2018-03-02] MEDS ORDERED: VANCOMYCIN HCL 2,000 MG in SODIUM CHLORIDE 0.9% 500 ML IV ONE (23:29)
[2018-03-02] MEDS ORDERED: CEFEPIME 2,000 MG in SYRINGE 7.5 ML IV STA (23:29)
[2018-03-03] MEDS ORDERED: PIPERACILL/TAZOBAC CONSULT ACTIVE PRN (00:27)
[2018-03-03] MEDS ORDERED: PIPERACILLIN/TAZOBACTAM 4.5 GM/120ML D5W ONE (00:35)
[2018-03-03 00:49] LABS: NT Pro B Type Natriuretic Pept 69 pg/ml (0-900)
[2018-03-03 00:58] LABS: HCO3 ABG 27 mmol/L (19-24); PCO2 ABG 47 mmHg (35-46); PO2 ABG 57 mm/Hg (80-95); pH ABG 7.38 (7.35-7.45)
[2018-03-03 01:01] LABS: Allen Test POS (Pos)
--- NOTE | 2018-03-03 01:09 | Emergency Department Note ---
Entered by Bernarda Ryder acting as a scribe for Naveed Craig MD ED Provider Note CHIEF COMPLAINT: Shortness of Breath HISTORY OF PRESENT ILLNESS: The patient is a 57 year old female presenting to the Emergency Department complaining of sudden shortness of breath starting [employer]. The patient reports that she was at home and her home health nurse came to check her vitals and found that her oxygen saturation was 83%. She states that she has chest pains. She explains that she stopped taking Prednisone and Z-Pack 3 days ago that was prescribed by Dr. Tubbs PCP. She adds that she has had a blood clot in her leg but does not currently take any blood thinners. The patient reports that she has COPD, Asthma and Emphysema among others. Pt denies LOC, headache, fevers, chills, diaphoresis, neck pain, chest pain, nausea, vomiting, abdominal pain, back pain, melena, hematochezia, urinary symptoms, numbness, lymphadenopathy, rash, or other complaints. REVIEW OF SYSTEMS: See HPI for pertinent positives and negatives. A total of ten systems were reviewed and were otherwise negative. PMHx/PSHx: COPD, Chronic back pain, Schizophrenia, DVT, Asthma, Emphysema/GERD. History of hysterectomy, colonoscopy, ORIF, bilateral tubal ligation, thoracic spinal fusion and vascular access device. SOCIAL HISTORY: Patient lives at home. PHYSICAL EXAM: GENERAL: Awake, alert, well-appearing, in no distress. HENT: Normocephalic, atraumatic. Oropharynx unremarkable. EYES: Normal conjunctiva. Sclera non-icteric. NECK: Inspection normal. Non-tender. Supple. No nuchal rigidity. FROM. No masses. RESPIRATORY: Clear to auscultation. Slight expiratory wheezes. No rales. Normal respiratory effort. CARDIAC: Normal rate. Normal rhythm. No murmurs. No rubs. Extremities warm and well perfused. Pulses equal. No JVD. GI: Soft, non-distended. No tenderness to palpation. No rebound or guarding. No masses. RECTAL: Deferred. MUSCULOSKELETAL: Atraumatic. Chest examination reveals no tenderness. The back is symmetrical on inspection without obvious abnormality. There is no CVA tenderness to palpation. No joint edema. LOWER EXTREMITIES: Calves are equal size bilaterally and non-tender. Trace lower extremity edema. No discoloration. NEURO: Normal sensorium. No sensory or motor deficits noted. SKIN: No rash or jaundice noted. EMERGENCY DEPARTMENT COURSE: 2104: Past medical records reviewed. The patient was evaluated in room C9, and a complete history and physical examination were performed. 2308: I reviewed the patient's case with Dr. Gibson Rosario hospitalist. He will evaluate the patient for further management. 2331: I updated the patient at this time about her disposition. MEDICAL DECISION MAKING: Triage Nursing notes reviewed. The patient's presentation and history were concerning for SOB. Etiologies such as pneumonia, reactive airway disease, CHF, cardiac ischemia, pulmonary embolism, pneumothorax, COPD, musculoskeletal, infections, gastrointestinal, as well as others were entertained. Patient was evaluated. She was requiring supplemental oxygen. She was given a DuoNeb. She was also given Solu-Medrol. The patient had a chest x-ray performed and this was concerning for pneumonia. She does have a white count of 11,000. Her troponin d-dimer negative. Her lactate was mildly elevated. The patient was given a dose of Zosyn and vancomycin. She was reassessed. She was informed. She will need further management in the hospital. She continued to require supplemental oxygen. Consultation was made with internal medicine. The patient was evaluated in the ER for further management. IMPRESSION: Shortness of Breath, Hypoxia PLAN: Being Evaluated by Hospitalist The scribe's documentation has been prepared under my direction and personally reviewed by me in its entirety. I confirm that the note above accurately reflects all work, treatment, procedures, and medical decision making performed by me. Impression & Plan Shortness of breath, Hypoxia Past Med/Surg History Medical History Asthma COPD (chronic obstructive pulmonary disease) Schizophrenia Chronic back pain GERD (gastroesophageal reflux disease) DVT prophylaxis Arthritis Aspiration pneumonia (11/26/10) COPD (chronic obstructive pulmonary disease) Chronic back pain Chronic hepatitis C (Unknown) Chronic obstructive lung disease (Unknown) Chronic paranoid schizophrenia (Unknown) Contusion of head DVT (deep venous thrombosis) right leg--no blood thinners Dyspnea GERD (gastroesophageal reflux disease) History of anesthesia reaction did not receive enough anesthesia during a colonoscopy and felt everything Hypotension Interstitial lung disease Mood disorder On home oxygen therapy 2L during day; 3L N/C @ HS Osteoarthritis Osteoporosis (Unknown) Respiratory failure, [id number] SOB (shortness of breath) Schizoaffective disorder (Unknown) Seizure (11/26/10) one time issue, related to a medication Spinal stenosis Urinary retention with incomplete bladder emptying Surgical History History of bilateral tubal ligation History of colonoscopy History of open reduction and internal fixation (ORIF) procedure left femur--rods in place History of thoracic spinal fusion fusion and decompression t6-t12 History of tooth extraction all teeth removed History of total abdominal hysterectomy and bilateral salpingo-oophorectomy History of vascular access device Aport on right side S/P ORIF (open reduction internal fixation) fracture right femur--rods in place S/P tonsillectomy Family History Grandmother (Paternal) Family hx of colon cancer Social History Current Living Situation: Alone Current Living Situation Comment: apartment is below her sister's house Feels Safe at Home: Yes Smoking Status: Former smoker Second Hand Exposure: No Hx Alcohol Use: No Hx Substance Use: Yes (last used about 25 yrs ago) substance use type: former substance user, marijuana, crack/cocaine and heroin Beliefs That Will Affect Care: None Preferred Language: Burmese Results & Data Vital Signs Vital Signs - 24 hr 03/02/18 20:27 03/02/18 21:00 03/02/18 21:48 Temperature 36.9 C Temperature Source Oral Sepsis Recent Fever Within 48 Hours No Sepsis New/Unexplained Change in Mental Status No Sepsis Action Taken by Nursing No Action Required Pulse Rate 100 H 95 H Pulse Rate [Left] Pulse Rhythm Regular Pulse Rhythm [Left] Pulse Strength [Left] Respiratory Rate 20 22 Respiratory Effort / Characteristics Short of Breath Respiratory Depth Respiratory Pattern Regular Blood Pressure 123/83 Blood Pressure [Left Arm] Blood Pressure Mean 96 Blood Pressure Mean [Left Arm] Pulse Oximetry 96 96 Oxygen Delivery Method Room Air Nasal Cannula Nasal Cannula Oxygen Flow Rate 2 2 03/02/18 22:40 03/03/18 00:15 Temperature Temperature Source Sepsis Recent Fever Within 48 Hours Sepsis New/Unexplained Change in Mental Status Sepsis Action Taken by Nursing Pulse Rate Pulse Rate [Left] 86 98 H Pulse Rhythm Pulse Rhythm [Left] Regular Pulse Strength [Left] Normal Respiratory Rate 20 18 Respiratory Effort / Characteristics Non-Labored Spontaneous Respiratory Depth Normal Respiratory Pattern Blood Pressure Blood Pressure [Left Arm] 153/86 H 124/77 Blood Pressure Mean Blood Pressure Mean [Left Arm] 108 92 Pulse Oximetry 88 L 95 Oxygen Delivery Method Nasal Cannula Nasal Cannula Oxygen Flow Rate 2 3 Home Medications Current Medication List: was personally reviewed by me Laboratory Data Attestation: I reviewed the patient's lab results. Result diagrams: 03/02/18 20:46 03/02/18 20:46 Lab Results 03/02/18 03/02/18 03/02/18 Range/Units 20:00 20:46 20:46 WBC 11.29 H (4.8-10.8) K/uL RBC 4.01 L (4.2-5.4) M/uL Hgb 12.4 (12.0-16.0) g/dL Hct 39.1 (37-47) % MCV 97.5 (80-100) fL MCH 30.9 (25-34) pg MCHC 31.7 L (32-36) g/dL RDW Std Deviation 48.9 H (36.4-46.3) fL RDW Coeff of Ivy 13.7 (11.5-14.5) % Plt Count 180 (130-400) K/uL MPV 10.6 H (7.4-10.4) fL Immature Gran % (Auto) 0.6 % Neut % (Auto) 68.0 % Lymph % (Auto) 18.6 % [place] % (Auto) 8.3 % Eos % (Auto) 4.2 % Baso % (Auto) 0.3 % Immature Gran # (Auto) 0.07 H (0.00-0.02) K/uL Neut # (Auto) 7.68 H (1.4-6.5) K/uL Lymph # (Auto) 2.10 (1.2-3.4) K/uL [place] # (Auto) 0.94 H (0.11-0.59) K/uL Eos # (Auto) 0.47 (0-0.5) K/uL Baso # (Auto) 0.03 (0-0.2) K/uL PT 10.4 (9.0-12.0) Seconds INR 1.0 (0.9-1.1) APTT 21.3 (21.0-31.0) Seconds PTT Ratio 0.8 D-Dimer 480 (0-500) ug/L FEU ABG pH (7.35-7.45) ABG pCO2 (35-46) mmHg ABG pO2 (80-95) mm/Hg ABG HCO3 (19-24) mmol/L ABG O2 Saturation (90-95) % ABG Base Excess (-9-1.8) mEq/L Anirudh Test (Pos) Barometric Pressure mm/Hg Oxygen Given Sodium (136-145) mmol/L Potassium (3.5-5.1) mmol/L Chloride (98-107) mmol/L Carbon Dioxide (21-32) mmol/L Anion Gap (3-11) BUN (7-18) mg/dl Creatinine (0.6-1.2) mg/dl Est Cr Clr Drug Dosing ml/min Est GFR ( Amer) Est GFR (Non-Af Amer) BUN/Creatinine Ratio (10-20) Glucose (70-99) mg/dl POC Lactic Acid Fred (0.90-1.70) mmol/L Calcium (8.5-10.1) mg/dl Magnesium (1.8-2.4) mg/dl Total Bilirubin (0.2-1) mg/dl AST (15-37) U/L ALT (12-78) U/L Alkaline Phosphatase (45-117) U/L Troponin I (0-0.045) ng/ml NT-Pro-B Natriuret Pep (0-900) pg/ml Total Protein (6.4-8.2) gm/dl Albumin (3.4-5.0) gm/dl Globulin (2.5-4.0) gm/dl Albumin/Globulin Ratio (0.9-2) Urine Color Urine Appearance (Clear) Urine pH (4.5-7.5) Ur Specific [place] (1.000-1.030) Urine Protein (Negative) Urine Glucose (UA) (Negative) Urine Ketones (Negative) Urine Blood (Negative) Urine Nitrite (Negative) Urine Bilirubin (Negative) Urine Urobilinogen (Negative) Ur Leukocyte Esterase (Negative) Urine RBC (0-4) /hpf Urine WBC (0-5) /hpf Ur Epithelial Cells (0-5) /lpf Urine Bacteria (Negative) Influenza Type A (PCR) Neg for Influ A (Neg) Influenza Type B (PCR) Neg for Influ B (Neg) 03/02/18 03/02/18 03/02/18 Range/Units 20:46 20:54 21:00 WBC (4.8-10.8) K/uL RBC (4.2-5.4) M/uL Hgb (12.0-16.0) g/dL Hct (37-47) % MCV (80-100) fL MCH (25-34) pg MCHC (32-36) g/dL RDW Std Deviation (36.4-46.3) fL RDW Coeff of Ivy (11.5-14.5) % Plt Count (130-400) K/uL MPV (7.4-10.4) fL Immature Gran % (Auto) % Neut % (Auto) % Lymph % (Auto) % [place] % (Auto) % Eos % (Auto) % Baso % (Auto) % Immature Gran # (Auto) (0.00-0.02) K/uL Neut # (Auto) (1.4-6.5) K/uL Lymph # (Auto) (1.2-3.4) K/uL [place] # (Auto) (0.11-0.59) K/uL Eos # (Auto) (0-0.5) K/uL Baso # (Auto) (0-0.2) K/uL PT (9.0-12.0) Seconds INR (0.9-1.1) APTT (21.0-31.0) Seconds PTT Ratio D-Dimer (0-500) ug/L FEU ABG pH (7.35-7.45) ABG pCO2 (35-46) mmHg ABG pO2 (80-95) mm/Hg ABG HCO3 (19-24) mmol/L ABG O2 Saturation (90-95) % ABG Base Excess (-9-1.8) mEq/L Anirudh Test (Pos) Barometric Pressure mm/Hg Oxygen Given Sodium 136 (136-145) mmol/L Potassium 4.1 (3.5-5.1) mmol/L Chloride 102 (98-107) mmol/L Carbon Dioxide 30 (21-32) mmol/L Anion Gap 4.0 (3-11) BUN 20 H (7-18) mg/dl Creatinine 0.92 (0.6-1.2) mg/dl Est Cr Clr Drug Dosing 78.5 ml/min Est GFR ( Amer) 79.6 Est GFR (Non-Af Amer) 68.6 BUN/Creatinine Ratio 21.6 H (10-20) Glucose 173 H (70-99) mg/dl POC Lactic Acid Fred 1.79 H (0.90-1.70) mmol/L Calcium 9.2 (8.5-10.1) mg/dl Magnesium 1.9 (1.8-2.4) mg/dl Total Bilirubin 0.3 (0.2-1) mg/dl AST 39 H (15-37) U/L ALT 41 (12-78) U/L Alkaline Phosphatase 56 (45-117) U/L Troponin I < 0.015 (0-0.045) ng/ml NT-Pro-B Natriuret Pep 69 (0-900) pg/ml Total Protein 7.0 (6.4-8.2) gm/dl Albumin 3.0 L (3.4-5.0) gm/dl Globulin 4.0 (2.5-4.0) gm/dl Albumin/Globulin Ratio 0.7 L (0.9-2) Urine Color Yellow Urine Appearance Clear (Clear) Urine pH 5.0 (4.5-7.5) Ur Specific [place] 1.006 (1.000-1.030) Urine Protein Negative (Negative) Urine Glucose (UA) Negative (Negative) Urine Ketones Negative (Negative) Urine Blood Negative (Negative) Urine Nitrite Negative (Negative) Urine Bilirubin Negative (Negative) Urine Urobilinogen Negative (Negative) Ur Leukocyte Esterase Trace H (Negative) Urine RBC 0-4 (0-4) /hpf Urine WBC 5-10 H (0-5) /hpf Ur Epithelial Cells 0-5 (0-5) /lpf Urine Bacteria Negative (Negative) Influenza Type A (PCR) (Neg) Influenza Type B (PCR) (Neg) 03/03/18 Range/Units 00:42 WBC (4.8-10.8) K/uL RBC (4.2-5.4) M/uL Hgb (12.0-16.0) g/dL Hct (37-47) % MCV (80-100) fL MCH (25-34) pg MCHC (32-36) g/dL RDW Std Deviation (36.4-46.3) fL RDW Coeff of Ivy (11.5-14.5) % Plt Count (130-400) K/uL MPV (7.4-10.4) fL Immature Gran % (Auto) % Neut % (Auto) % Lymph % (Auto) % [place] % (Auto) % Eos % (Auto) % Baso % (Auto) % Immature Gran # (Auto) (0.00-0.02) K/uL Neut # (Auto) (1.4-6.5) K/uL Lymph # (Auto) (1.2-3.4) K/uL [place] # (Auto) (0.11-0.59) K/uL Eos # (Auto) (0-0.5) K/uL Baso # (Auto) (0-0.2) K/uL PT (9.0-12.0) Seconds INR (0.9-1.1) APTT (21.0-31.0) Seconds PTT Ratio D-Dimer (0-500) ug/L FEU ABG pH 7.38 (7.35-7.45) ABG pCO2 47 H (35-46) mmHg ABG pO2 57 L (80-95) mm/Hg ABG HCO3 27 H (19-24) mmol/L ABG O2 Saturation 89.0 L (90-95) % ABG Base Excess 1.5 (-9-1.8) mEq/L Anirudh Test POS (Pos) Barometric Pressure 728.6 mm/Hg Oxygen Given 3 L Sodium (136-145) mmol/L Potassium (3.5-5.1) mmol/L Chloride (98-107) mmol/L Carbon Dioxide (21-32) mmol/L Anion Gap (3-11) BUN (7-18) mg/dl Creatinine (0.6-1.2) mg/dl Est Cr Clr Drug Dosing ml/min Est GFR ( Amer) Est GFR (Non-Af Amer) BUN/Creatinine Ratio (10-20) Glucose (70-99) mg/dl POC Lactic Acid Fred (0.90-1.70) mmol/L Calcium (8.5-10.1) mg/dl Magnesium (1.8-2.4) mg/dl Total Bilirubin (0.2-1) mg/dl AST (15-37) U/L ALT (12-78) U/L Alkaline Phosphatase (45-117) U/L Troponin I (0-0.045) ng/ml NT-Pro-B Natriuret Pep (0-900) pg/ml Total Protein (6.4-8.2) gm/dl Albumin (3.4-5.0) gm/dl Globulin (2.5-4.0) gm/dl Albumin/Globulin Ratio (0.9-2) Urine Color Urine Appearance (Clear) Urine pH (4.5-7.5) Ur Specific [place] (1.000-1.030) Urine Protein (Negative) Urine Glucose (UA) (Negative) Urine Ketones (Negative) Urine Blood (Negative) Urine Nitrite (Negative) Urine Bilirubin (Negative) Urine Urobilinogen (Negative) Ur Leukocyte Esterase (Negative) Urine RBC (0-4) /hpf Urine WBC (0-5) /hpf Ur Epithelial Cells (0-5) /lpf Urine Bacteria (Negative) Influenza Type A (PCR) (Neg) Influenza Type B (PCR) (Neg) Administered Medications Discontinued Medications Albuterol (Duoneb) 3 ml NEB NOW STA Stop: 03/02/18 21:10 Last Admin: 03/02/18 21:33 Dose: 3 ml Albuterol (Duoneb) 3 ml NEB NOW STA Stop: 03/02/18 23:13 Last Admin: 03/02/18 23:18 Dose: 3 ml Cefepime HCl 2,000 mg/ Syringe 20 mls @ 5.5 mls/min IV NOW STA Stop: 03/02/18 23:32 Last Admin: 03/02/18 23:45 Dose: 5.5 mls/min Vancomycin HCl 2,000 mg/ (Sodium Chloride) 540 mls @ 200 mls/hr IV NOW ONE Stop: 03/03/18 02:10 Last Infusion: 03/03/18 00:41 Dose: 0 mls/hr Infusion: 03/03/18 00:36 Dose: 0 mls/hr Admin: 03/02/18 23:49 Dose: 200 mls/hr Methylprednisolone (Solumedrol) 125 mg IV NOW STA Stop: 03/02/18 21:10 Last Admin: 03/02/18 21:33 Dose: 125 mg Piperacillin Sod/Tazobactam Sod (Zosyn) Confirm Administered Dose 4.5 gm .ROUTE .STK-MED ONE Stop: 03/03/18 00:36 Last Admin: 03/03/18 00:40 Dose: 4.5 gm Imaging Data Radiologist's Impression: Radiology results as stated below per my review and the radiologist's interpretation: XR chest 1V portable CLINICAL HISTORY: Dyspnea dyspnea COMPARISON STUDY: N 15/10/2017 FINDINGS: Similar findings compared to the prior study including a left perihilar infiltrative change as well as right apical infiltrative change. Postoperative changes to the thoracic spine are again noted. There is a central catheter in superior vena cava. IMPRESSION: Findings consistent with bilateral parenchymal infiltrates versus atypical pulmonary edema. The above report was generated using voice recognition software. It may contain grammatical, syntax or spelling errors. Electronically signed by: Manfred Noriega M.D. 03/02/2018 9:50 PM ECG Data Attestation: I personally reviewed and interpreted this ECG as follows: Indication: SOB/dyspnea Rate (beats per minute): 97 Rhythm: sinus rhythm Findings: no PAC, no PVC, no ST depression and no ST elevation Blood Pressure Blood Pressure Findings: Elevated blood pressure Blood Pressure Disposition: further management by hospitalist Discharge Plan Visit Data Chief Complaint: Shortness of Breath/Dyspnea ED Provider: Naveed Craig Discharge Problem: Shortness of breath, Hypoxia Patient Disposition: Being Evaluated by Hospitalist Forms Stand Alone Forms: My [facility] Prescriptions Prescriptions: No Action clozapine [Clozaril] 100 mg Tablet 100 mg PO BID RF: 0 sennosides-docusate sodium [Senna-S] 8.6-50 mg Tablet 2 tab PO QAM RF: 0 acetaminophen [Tylenol Extra Strength] 500 mg Tablet 500 mg PO QID PRN (Reason: Pain) RF: 0 bupropion HCl 100 mg Tablet 100 mg PO AMHS RF: 0 famotidine [Pepcid] 20 mg Tablet 20 mg PO AMHS RF: 0 calcitonin (salmon) 200 unit/actuation [place],Non-Aerosol 1 spray Intranasal QAM RF: 0 ferrous sulfate [FerrouSul] 325 mg (65 mg iron) tablet 325 mg PO BIDM RF: 0 gabapentin [Neurontin] 300 mg capsule 300 mg PO TID RF: 0 folic acid 1 mg Tablet 1 mg PO QAM RF: 0 montelukast [Singulair] 10 mg Tablet 10 mg PO PM RF: 0 multivitamin with minerals [Daily Multivitamin-Minerals] Tablet 1 tab PO QAM RF: 0 albuterol sulfate [Ventolin HFA] 90 mcg/actuation Hfa Aerosol Inhaler 2 puff INHALATION QID PRN (Reason: Shortness Of Breath Or Wheezing) RF: 0 celecoxib [Celebrex] 100 mg capsule 100 mg PO AMHS RF: 0 fluticasone [Flonase Allergy Relief] 50 mcg/actuation [place],Suspension 2 spray INTRANASAL QAM RF: 0 ipratropium bromide 0.02 % Solution 0.5 mg INHALATION TID RF: 0 midodrine 10 mg Tablet 10 mg PO TID RF: 0 escitalopram oxalate [Lexapro] 20 mg Tablet 20 mg PO QAM RF: 0 albuterol sulfate 2.5 mg/0.5 mL Solution For Nebulization 2.5 mg INHALATION TID RF: 0 fenofibrate nanocrystallized [Tricor] 48 mg Tablet 48 mg PO QAM RF: 0 diclofenac sodium [Voltaren] 1 % Gel 4 g TOPICAL QID RF: 0 brexpiprazole [Rexulti] 2 mg Tablet 2 mg PO QAM RF: 0 ipratropium-albuterol 0.5 mg-3 mg(2.5 mg base)/3 mL Solution For Nebulization 3 ml INHALATION TID PRN (Reason: Shortness Of Breath) RF: 0 clonazepam 0.25 mg Tablet,Disintegrating 0.25 mg PO TID PRN (Reason: Anxiety) RF: 0 calcium-vitamin D3-vitamin K [Viactiv] 500-500-40 mg-unit-mcg Tablet,Chewable 1 tab PO AMHS RF: 0 [id number]-wntsojynz-paflszew [Trelegy Ellipta] 100-62.5-25 mcg Blister With Device 1 inh INHALATION QAM RF: 0 methocarbamol [Robaxin] 500 mg Tablet 250 mg PO TID PRN (Reason: Muscle Spasm) RF: 0 pantoprazole [Protonix] 40 mg Tablet,Delayed Release (Dr/Ec) 40 mg PO BID RF: 0 magnesium hydroxide [Milk of Magnesia] 400 mg/5 mL Suspension 15 ml PO HS PRN (Reason: Constipation) RF: 0 Referrals Referrals: Naveed Adam [Primary Care Provider] - The scribe's documentation has been prepared under my direction and personally reviewed by me in its entirety. I confirm that the note above accurately reflects all work, treatment, procedures, and medical decision making performed by me.
[2018-03-03] MEDS ORDERED: IOVERSOL 100ml IV PRN (02:48)
[2018-03-03] MEDS ORDERED: DOXYCYCLINE HYCLATE 100 MG in DEXTROSE 5% 100 ML IV STA (03:29)
[2018-03-03] MEDS ORDERED: GLUCOSE 10 TABS/TUBE PO PRN (03:33)
[2018-03-03] MEDS ORDERED: GLUCAGON FOR INJ 1 MG VIAL SQ PRN (03:33)
[2018-03-03] MEDS ORDERED: INSULIN GLARGINE SOLOSTAR 100 UNITS/ML 3 ML PEN SC STA (03:33)
[2018-03-03] MEDS ORDERED: DEXTROSE 50% 50 ML SYRINGE IV PRN (03:33)
[2018-03-03] MEDS ORDERED: GLUCOSE 40% GEL 15 GM TUBE PO PRN (03:33)
[2018-03-03] MEDS ORDERED: NITROGLYCERIN SL 0.4 MG/TAB TAB SL PRN (03:33)
[2018-03-03] MEDS ORDERED: CARBOHYDRATES FOR HYPOGLYCEMIA PO PRN (03:33)
[2018-03-03] MEDS ORDERED: SODIUM CHLORIDE 0.9% 1000ML 1,000 ML IV STA (03:33)
[2018-03-03] MEDS ORDERED: OXYCODONE HCL IR 5 MG TAB (IMMEDIATE RELEASE) PO PRN (03:33)
[2018-03-03] MEDS ORDERED: XOPENEX/ATROVENT 1.25mg/0.5MG NEB COMBO NEB SCH (03:33)
--- NOTE | 2018-03-03 04:08 | History & Physical Report ---
Date of Service March 03, 2018 Assessment & Plan (1) Acute on chronic respiratory failure with hypoxia: Secondary to COPD/ILD exacerbation secondary to complicated bronchitis Possible sepsis Hyperglycemia likely new DM diagnosis, hemoglobin A1c of 6.5 last December 2017 chronic HCV as per records hx schizoaffective disorder, at baseline orthostatic hypotension on Midodrine history of esophageal dysfunction, aspiration risk, History recurrent DVT as per records History MRSA past tobacco/alcohol use Medical telemetry Supplemental O2 Doxycycline nebs steroids Pulmonary consult RE respiratory failure Basal insulin, ISS BG goal 140-180 Diabetic education DVT prophylaxis. Lovenox subcu Full code History of Present Illness Chief Complaint: Chest pain, S OB Primary Care Provider: Naveed Adam History obtained from patient and records. Medical history significant for chronic respiratory failure secondary to COPD/ ILD on home O2, history of past tobacco and alcohol abuse, history of urinary incontinence, chronic hep C, schizoaffective disorder, history of MRSA, orthostatic hypotension on Midodrine, history of esophageal dysfunction, aspiration risk, hx recurrent DVT as per records Recent confinement December 2007 COPD exacerbation and pneumonia. The last few days patient noted junky but sticky cough symptoms, pleuritic chest pain, worsening shortness of breath. Denies aspiration. Patient thinks she got sick from her caregivers. Legs little swollen right leg noted with a bump as per patient. At the ER patient received Cefepime and Zosyn for pneumonia. 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 Allergies Allergy/AdvReac Type Severity Reaction Status Date / Time hydroxyzine Allergy Unknown UNKNOWN Verified 03/02/18 21:52 fluphenazine AdvReac Intermediate confusion Verified 03/02/18 21:52 haloperidol AdvReac Intermediate "MAKES ME Verified 03/02/18 21:52 GO INTO BLACKOUT" hydrocodone AdvReac Intermediate DROWSY Verified 03/02/18 21:52 molindone AdvReac Intermediate PT FEELS Verified 03/02/18 21:52 LIKE SHES "JUMPING OUT OF HER SKIN" morphine AdvReac Intermediate DROWSY Verified 03/02/18 21:52 lithium AdvReac Mild "LEVEL CAN Verified 03/02/18 21:52 GET TOO HIGH" Home Medications Home Medications Medication Instructions Recorded Confirmed Type acetaminophen [Tylenol Extra 500 mg PO QID PRN 12/27/17 03/02/18 History Strength] albuterol sulfate 2.5 mg INHALATION TID 12/27/17 03/02/18 History albuterol sulfate [Ventolin HFA] 2 puff INHALATION QID PRN 12/27/17 03/02/18 History brexpiprazole [Rexulti] 2 mg PO QAM 12/27/17 03/02/18 History bupropion HCl 100 mg PO AMHS 12/27/17 03/02/18 History calcitonin (salmon) 1 spray INTRANASAL QAM 12/27/17 03/02/18 History celecoxib [Celebrex] 100 mg PO AMHS 12/27/17 03/02/18 History clozapine [Clozaril] 100 mg PO BID 12/27/17 03/02/18 History diclofenac sodium [Voltaren] 4 g TOPICAL QID 12/27/17 03/02/18 History escitalopram oxalate [Lexapro] 20 mg PO QAM 12/27/17 03/02/18 History famotidine [Pepcid] 20 mg PO AMHS 12/27/17 03/02/18 History fenofibrate nanocrystallized 48 mg PO QAM 12/27/17 03/02/18 History [Tricor] ferrous sulfate [FerrouSul] 325 mg PO BIDM 12/27/17 03/02/18 History fluticasone [Flonase Allergy 2 spray INTRANASAL QAM 12/27/17 03/02/18 History Relief] folic acid 1 mg PO QAM 12/27/17 03/02/18 History gabapentin [Neurontin] 300 mg PO TID 12/27/17 03/02/18 History ipratropium bromide 0.5 mg INHALATION TID 12/27/17 03/02/18 History midodrine 10 mg PO TID 12/27/17 03/02/18 History montelukast [Singulair] 10 mg PO PM 12/27/17 03/02/18 History multivitamin with minerals [Daily 1 tab PO QAM 12/27/17 03/02/18 History Multivitamin-Minerals] sennosides-docusate sodium 2 tab PO QAM 12/27/17 03/02/18 History [Senna-S] calcium-vitamin D3-vitamin K 1 tab PO AMHS 02/18/18 03/02/18 History [Viactiv] clonazepam 0.25 mg PO TID PRN 02/18/18 03/02/18 History stkaijfnkga-wnntverbw-qscbayle 1 inh INHALATION QAM 02/18/18 03/02/18 History [Trelegy Ellipta] ipratropium-albuterol 3 ml INHALATION TID PRN 02/18/18 03/02/18 History methocarbamol [Robaxin] 250 mg PO TID PRN 02/18/18 03/02/18 History pantoprazole [Protonix] 40 mg PO BID 02/18/18 03/02/18 History magnesium hydroxide [Milk of 15 ml PO HS PRN 03/02/18 03/02/18 History Magnesia] Past Med/Surg History Medical History Asthma COPD (chronic obstructive pulmonary disease) Schizophrenia Chronic back pain GERD (gastroesophageal reflux disease) DVT prophylaxis Arthritis Aspiration pneumonia (11/26/10) COPD (chronic obstructive pulmonary disease) Chronic back pain Chronic hepatitis C (Unknown) Chronic obstructive lung disease (Unknown) Chronic paranoid schizophrenia (Unknown) Contusion of head DVT (deep venous thrombosis) right leg--no blood thinners Dyspnea GERD (gastroesophageal reflux disease) History of anesthesia reaction did not receive enough anesthesia during a colonoscopy and felt everything Hypotension Interstitial lung disease Mood disorder On home oxygen therapy 2L during day; 3L N/C @ HS Osteoarthritis Osteoporosis (Unknown) Respiratory failure, dvalr-zr-eveltra SOB (shortness of breath) Schizoaffective disorder (Unknown) Seizure (11/26/10) one time issue, related to a medication Spinal stenosis Urinary retention with incomplete bladder emptying Surgical History History of bilateral tubal ligation History of colonoscopy History of open reduction and internal fixation (ORIF) procedure left femur--rods in place History of thoracic spinal fusion fusion and decompression t6-t12 History of tooth extraction all teeth removed History of total abdominal hysterectomy and bilateral salpingo-oophorectomy History of vascular access device Aport on right side S/P ORIF (open reduction internal fixation) fracture right femur--rods in place S/P tonsillectomy Family History Grandmother (Paternal) Family hx of colon cancer Social History Current Living Situation: Family Current Living Situation Comment: Pt. lives with mother and sister. Other Information That Helps Us Care for You: No Feels Safe at Home: Yes Safety Concerns: Feels Safe At This Time Smoking Status: Unknown if ever smoked Hx Alcohol Use: No Hx Substance Use: No Beliefs That Will Affect Care: None Communication Ability: Effective Review of Systems As per HPI, all 10 systems reviewed, all other ROS negative Physical Exam 2 Vital Signs (Past 24 Hours): Last Vital Signs Temp 36.8 C 03/03/18 02:33 Pulse 82 03/03/18 02:33 Resp 18 03/03/18 02:33 BP 127/96 03/03/18 02:33 Pulse Ox 94 03/03/18 02:11 Physical Exam: GENERAL: Comfortable, obese, slightly anxious and shaky, no respiratory distress SKIN: Normal color, warm HEENT: [place] palpebral conjunctivae, no ptosis, dry buccal mucosa, nasal cannula in place NECK : Supple, short, no tenderness CHEST : Decreased breath sounds, expiratory wheezes , no tenderness HEART : RRR, no obvious murmurs ABDOMEN: Some distention, nontender EXTREMITIES : minimal LE swelling, tender nodularity right lower leg, no other conspicuous deformities noted NEUROLOGIC : Coherent, no facial asymmetry, no other gross focality except for mild shakiness and mild hearing impairment Results & Data Laboratory Results Laboratory Results WBC 11.29 K/uL (4.8-10.8) H 03/02/18 20:46 RBC 4.01 M/uL (4.2-5.4) L 03/02/18 20:46 Hgb 12.4 g/dL (12.0-16.0) 03/02/18 20:46 Hct 39.1 % (37-47) 03/02/18 20:46 MCV 97.5 fL (80-100) 03/02/18 20:46 MCH 30.9 pg (25-34) 03/02/18 20:46 MCHC 31.7 g/dL (32-36) L 03/02/18 20:46 RDW Std Deviation 48.9 fL (36.4-46.3) H 03/02/18 20:46 RDW Coeff of Ivy 13.7 % (11.5-14.5) 03/02/18 20:46 Plt Count 180 K/uL (130-400) 03/02/18 20:46 MPV 10.6 fL (7.4-10.4) H 03/02/18 20:46 Immature Gran % (Auto) 0.6 % 03/02/18 20:46 Neut % (Auto) 68.0 % 03/02/18 20:46 Lymph % (Auto) 18.6 % 03/02/18 20:46 [place] % (Auto) 8.3 % 03/02/18 20:46 Eos % (Auto) 4.2 % 03/02/18 20:46 Baso % (Auto) 0.3 % 03/02/18 20:46 Immature Gran # (Auto) 0.07 K/uL (0.00-0.02) H 03/02/18 20:46 Neut # (Auto) 7.68 K/uL (1.4-6.5) H 03/02/18 20:46 Lymph # (Auto) 2.10 K/uL (1.2-3.4) 03/02/18 20:46 [place] # (Auto) 0.94 K/uL (0.11-0.59) H 03/02/18 20:46 Eos # (Auto) 0.47 K/uL (0-0.5) 03/02/18 20:46 Baso # (Auto) 0.03 K/uL (0-0.2) 03/02/18 20:46 PT 10.4 Seconds (9.0-12.0) 03/02/18 20:46 INR 1.0 (0.9-1.1) 03/02/18 20:46 APTT 21.3 Seconds (21.0-31.0) 03/02/18 20:46 PTT Ratio 0.8 03/02/18 20:46 D-Dimer 480 ug/L FEU (0-500) 03/02/18 20:46 ABG pH 7.38 (7.35-7.45) 03/03/18 00:42 ABG pCO2 47 mmHg (35-46) H 03/03/18 00:42 ABG pO2 57 mm/Hg (80-95) L 03/03/18 00:42 ABG HCO3 27 mmol/L (19-24) H 03/03/18 00:42 ABG O2 Saturation 89.0 % (90-95) L 03/03/18 00:42 ABG Base Excess 1.5 mEq/L (-9-1.8) 01 00:42 Anirudh Test POS (Pos) 03/03/18 00:42 Barometric Pressure 728.6 mm/Hg 03/03/18 00:42 Oxygen Given 3 L 03/03/18 00:42 Sodium 136 mmol/L (136-145) 03/02/18 20:46 Potassium 4.1 mmol/L (3.5-5.1) 03/02/18 20:46 Chloride 102 mmol/L (98-107) 03/02/18 20:46 Carbon Dioxide 30 mmol/L (21-32) 03/02/18 20:46 Anion Gap 4.0 (3-11) 03/02/18 20:46 BUN 20 mg/dl (7-18) H 03/02/18 20:46 Creatinine 0.92 mg/dl (0.6-1.2) 03/02/18 20:46 Est Cr Clr Drug Dosing 78.5 ml/min 03/02/18 20:46 Est GFR ( Amer) 79.6 03/02/18 20:46 Est GFR (Non-Af Amer) 68.6 03/02/18 20:46 BUN/Creatinine Ratio 21.6 (10-20) H 03/02/18 20:46 Glucose 173 mg/dl (70-99) H 03/02/18 20:46 POC Lactic Acid Fred 1.79 mmol/L (0.90-1.70) H 03/02/18 20:54 Lactate 2.0 mmol/L (0.4-2.0) 03/03/18 00:42 Calcium 9.2 mg/dl (8.5-10.1) 03/02/18 20:46 Magnesium 1.9 mg/dl (1.8-2.4) 03/02/18 20:46 Total Bilirubin 0.3 mg/dl (0.2-1) 03/02/18 20:46 AST 39 U/L (15-37) H 03/02/18 20:46 ALT 41 U/L (12-78) 03/02/18 20:46 Alkaline Phosphatase 56 U/L (45-117) 03/02/18 20:46 Troponin I < 0.015 ng/ml (0-0.045) 03/02/18 20:46 NT-Pro-B Natriuret Pep 69 pg/ml (0-900) 03/02/18 20:46 Total Protein 7.0 gm/dl (6.4-8.2) 03/02/18 20:46 Albumin 3.0 gm/dl (3.4-5.0) L 03/02/18 20:46 Globulin 4.0 gm/dl (2.5-4.0) 03/02/18 20:46 Albumin/Globulin Ratio 0.7 (0.9-2) L 03/02/18 20:46 Procalcitonin < 0.05 ng/ml (0-0.5) 03/02/18 20:46 Urine Color Yellow 03/02/18 21:00 Urine Appearance Clear (Clear) 03/02/18 21:00 Urine pH 5.0 (4.5-7.5) 03/02/18 21:00 Ur Specific [place] 1.006 (1.000-1.030) 03/02/18 21:00 Urine Protein Negative (Negative) 03/02/18 21:00 Urine Glucose (UA) Negative (Negative) 03/02/18 21:00 Urine Ketones Negative (Negative) 03/02/18 21:00 Urine Blood Negative (Negative) 03/02/18 21:00 Urine Nitrite Negative (Negative) 03/02/18 21:00 Urine Bilirubin Negative (Negative) 03/02/18 21:00 Urine Urobilinogen Negative (Negative) 03/02/18 21:00 Ur Leukocyte Esterase Trace (Negative) H 03/02/18 21:00 Urine RBC 0-4 /hpf (0-4) 03/02/18 21:00 Urine WBC 5-10 /hpf (0-5) H 03/02/18 21:00 Ur Epithelial Cells 0-5 /lpf (0-5) 03/02/18 21:00 Urine Bacteria Negative (Negative) 03/02/18 21:00 Influenza Type A (PCR) Neg for Influ A (Neg) 03/02/18 20:00 Influenza Type B (PCR) Neg for Influ B (Neg) 03/02/18 20:[address] chest initial read: No PE, scattered atherosclerosis. Scattered interstitial thickening and cystic changes compatible with chronic interstitial lung disease. LE Dopplers initial read: No DVT EKG as per my interpretation: Rate 100, NSR, T wave flattening inferior leads
[2018-03-03] MEDS: guaiFENesin 600 MG TABCR PO SCH ×3 (04:44→20:55)
[2018-03-03] MEDS: INSULIN ASPART 100 UNITS/ML 3 ML PEN SC SCH ×5 (04:59→21:04)
[2018-03-03] MEDS: FERROUS SULFATE 325 MG TAB PO SCH ×2 (05:48→17:34)
[2018-03-03] MEDS: MIDODRINE HCL 10 MG TAB PO SCH ×3 (05:51→18:03)
[2018-03-03] MEDS ORDERED: PIPERACILLIN/TAZOBACTAM 4.5 GM/120 ML BAG IV SCH (06:00)
[2018-03-03] MEDS ORDERED: CEROVITE ADV FORMULA TAB PO SCH (06:00)
[2018-03-03] MEDS ORDERED: INSULIN GLARGINE 100 UNIT/ML VIAL SC STA (06:05)
[2018-03-03] MEDS ORDERED: MICONAZOLE NITRATE POWDER 43 GM EXT PRN (06:55)
[2018-03-03] MEDS: IPRATROPIUM BROMIDE NEB SOLN 0.02% 2.5 ML VIAL INH SCH ×3 (07:00→23:01)
[2018-03-03] MEDS: LEVALBUTEROL 1.25MG/0.5ML NEB INH SCH ×3 (07:00→23:02)
--- NOTE | 2018-03-03 07:13 | Ultrasound Report ---
ULTRASOUND BILATERAL LOWER EXTREMITY VENOUS CLINICAL HISTORY: Leg pain. COMPARISON STUDY: Bilateral lower extremity venous ultrasound dated 10/05/2017. TECHNIQUE: Real-time, grayscale, and color Doppler sonography of the deep veins of the right and left lower extremity was performed from the inguinal crease to the calf. Compression and augmentation wer e utilized. FINDINGS: There is no sonographic evidence of deep venous thrombosis identified in the right or left lower extremity. The common femoral, superficial femoral, and popliteal veins are patent and normally compressible bilaterally. The greater saphenous vein and the profunda femoris vein at the junction w ith the common femoral vein are clear in both legs. The visualized calf veins are patent bilaterally. IMPRESSION: There is no sonographic evidence of deep venous thrombosis identified in the right or lef t lower extremity. Electronically signed by: Hubert Ferreira M.D. 03/03/2018 7:12 AM
[2018-03-03 07:15] LABS: Basophils # (auto) 0.01 K/uL (0-0.2); Basophils % (auto) 0.1 %; Hemoglobin 14.2 g/dL (12.0-16.0); Immature Granulocytes # (auto) 0.06 K/uL (0.00-0.02); Immature Granulocytes % (auto) 0.7 %; Lymphocytes % (auto) 4.7 %; Mean Corpuscular Hgb Conc 32.3 g/dL (32-36); Mean Corpuscular Volume 97.6 fL (80-100); Mean Platelet Volume 10.2 fL (7.4-10.4); Monocytes # (auto) 0.07 K/uL (0.11-0.59); Monocytes % (auto) 0.8 %; Neutrophils # (auto) 7.89 K/uL (1.4-6.5); Neutrophils % (auto) 93.7 %; Platelet Count 187 K/uL (130-400); RDW Coefficient of Variation 13.6 % (11.5-14.5); RDW Standard Deviation 48.5 fL (36.4-46.3); Red Blood Count 4.51 M/uL (4.2-5.4); White Blood Count 8.43 K/uL (4.8-10.8)
--- NOTE | 2018-03-03 07:27 | CT Scan Report ---
CT ANGIOGRAM OF THE CHEST CLINICAL HISTORY: Dyspnea. Atypical chest pain. COMPARISON STUDY: Chest CT scans dated 12/12/2017 and 02/21/2015. TECHNIQUE: Following the IV administration of 93 cc of Optiray 320, CT angiogram of the chest was per formed from the upper abdomen to the thoracic inlet utilizing the pulmonary embolus protocol. Images are reviewed in the axial, sagittal, and coronal planes. 3-D MIPS images are created and assessed. IV contrast was administered without complication. A dose lowering technique was utilized adhering to the principles of ALARA. Examination is degraded by streak artifact from metallic orthopedic spinal h ardware. CT DOSE: 642.49 mGy.cm FINDINGS: Thyroid: Imaged portions of the thyroid gland are normal in size and attenuation. Low-attenuation thy roid nodules measure up to 1.7 cm. Calcifications are noted in the left lobe, and these are unchanged from previous. Thoracic aorta: There is mild atherosclerotic calcification of the thoracic aorta, which is normal in caliber and demonstrates standard 3-vessel arch anatomy. No dissection is seen. Pulmonary vasculature: The pulmonary trunk is dilated, measuring 3.4 cm in diameter. This suggests pu lmonary artery hypertension. There are no filling defects identified in main, lobar, or segmental pul monary branches to suggest pulmonary embolus. Heart: The heart is top normal in size and without pericardial effusion. A right internal jugular merline tral venous infusion port is in place. Lungs and pleural spaces: Extensive chronic interstitial change is identified in both lungs. There is diffuse subpleural reticulation, with intralobular septal thickening and architectural distortion as well as traction bronchiectasis. This is seen both in the upper lobes and at the lung bases. Cystic change/honeycombing is seen at the lung bases. There is no evidence of superimposed airspace consolid ation and no significant pleural effusion is identified. Mild pleural thickening is present in both l ungs. The trachea is clear. Mediastinum: There are scattered subcentimeter mediastinal lymph nodes. These are not pathologically enlarged by size criteria. Gifty: Mildly enlarged hilar nodes measure up to 15 mm in short axis. These are likely unchanged from previous. Axillae: There is no axillary lymphadenopathy. Upper abdomen: There is a small hiatal hernia. The liver is steatotic. Skeletal structures: The skeletal structures are osteopenic. Severe chronic compression deformities o f T8, T10, T11, and T12 are unchanged from prior studies with partial bony fusion and hyperkyphosis a t these levels. Additional milder compression deformities throughout the thoracic spine are also unch anged. There is extensive postlaminectomy and spinal fusion change seen from T6 to T11. There are num erous healed bilateral rib fractures. There is also chronic posttraumatic deformity of the left humer al head. No lytic or blastic bony lesions are seen. IMPRESSION: 1. There is no evidence of pulmonary embolus in the main, lobar, or segmental pulmonary arteries. 2. Extensive chronic parenchymal abnormality is similar to prior studies. The appearance is consisten t with chronic interstitial lung disease/pulmonary fibrosis. 3. There is no evidence of superimposed airspace consolidation or pleural effusion. 4. Mildly enlarged hilar lymph nodes are likely due to chronic lung disease. 5. Hepatic steatosis. 6. Extensive posttraumatic and postoperative changes of the thoracic spine are similar to previous. 7. Additional findings as above. Electronically signed by: Hubert Ferreira M.D. 03/03/2018 7:24 AM
[2018-03-03 07:38] LABS: BUN Creatinine Ratio 15.3 (10-20); Blood Urea Nitrogen 17 mg/dl (7-18); Calcium 9.3 mg/dl (8.5-10.1); Carbon Dioxide 28 mmol/L (21-32); Chloride 104 mmol/L (98-107); Creatinine Clr Calc Pharmacy 63.6 ml/min; Est GFR (African American) 62.7; Est GFR (Non-African American) 54.1; Glucose 246 mg/dl (70-99); Potassium 4.3 mmol/L (3.5-5.1); Sodium 139 mmol/L (136-145)
[2018-03-03 07:42] LABS: Troponin I < 0.015 ng/ml (0-0.045)
[2018-03-03] MEDS: ESCITALOPRAM OXALATE 20 MG TAB PO SCH (08:08)
[2018-03-03] MEDS: DOCUSATE SODIUM/SENNA 50/8.6MG TAB PO SCH (08:08)
[2018-03-03] MEDS: FENOFIBRATE NANOCRYSTALLIZED 48 MG TABLET PO SCH (08:09)
[2018-03-03] MEDS: GABAPENTIN 300 MG CAP PO SCH ×3 (08:09→20:57)
[2018-03-03] MEDS: buPROPion HCl 100 MG TABLET PO SCH ×2 (08:09→20:59)
[2018-03-03] MEDS: FOLIC ACID 1 MG TAB PO SCH (08:09)
[2018-03-03] MEDS: PANTOprazole 40 MG TAB PO SCH ×2 (08:09→20:57)
[2018-03-03] MEDS: predniSONE 20 MG TAB PO SCH (08:10)
[2018-03-03] MEDS: FLUTICASONE PROPIONATE NA SPR 16 GM BTL NAE SCH (08:11)
[2018-03-03] MEDS ORDERED: FAMOTIDINE 20 MG TAB PO SCH (09:00)
[2018-03-03] MEDS: ENOXAPARIN INJ 40 MG/0.4 ML SYR SQ SCH (09:13)
[2018-03-03] MEDS: cloZAPine 100 MG TAB PO SCH ×2 (09:13→20:56)
[2018-03-03] MEDS: ACETAMINOPHEN 325 MG TAB PO PRN ×3 (09:26→22:05)
[2018-03-03] MEDS: clonazePAM 0.5 MG TAB PO PRN ×2 (15:45→22:05)
--- NOTE | 2018-03-03 15:45 | Hospitalist Progress Note ---
Date of Service March 03, 2018 Assessment & Plan (1) Acute on chronic respiratory failure with hypoxia: Chronic interstitial lung disease-exacerbation. Continue supplemental oxygen which she is on 2 L nasal cannula all the time at baseline.. Continue inhalers and doxycycline, continue daily prednisone. Pulmonary recommendations pending. Chronic hepatitis C virus History of schizoaffective disorder-at baseline Chronic orthostatic hypotension-on Midrin per home regimen History of recurrent DVT History of MRSA-contact precautions Hyperglycemia-continue insulin sliding scale. DVT prophylaxis-Lovenox Full code Disposition-ending pulmonary evaluation Emely Villalobos DO [facility] Hospitalist Subjective 57-year-old female with known interstitial lung disease on chronic oxygen reports shortness of breath times 1 week. She denies any cough but reports some thick yellow brown sputum a couple of times. She does report some chills but denies fevers. She has had no need to increase her baseline oxygen which is at 2 L during the day and 3 L at night. Lower extremely ultrasounds were negative bilaterally. Chest CTA was negative for PE and revealed chronic extensive parenchymal abnormalities consistent with pulmonary fibrosis which is known. She reports feeling better already since admission. Physical Exam 2 Vital Signs (Past 24 Hours): Last Vital Signs Temp 36.7 C 03/03/18 14:53 Pulse 125 H 03/03/18 14:53 Resp 20 03/03/18 14:53 BP 156/84 H 03/03/18 14:53 Pulse Ox 96 03/03/18 14:53 CONSTITUTIONAL: WNWD, vitals as above, generally well-appearing EYES: normal conjuctivae, no scleral icterus ENT: MMM RESPIRATORY: clear to auscultation bilaterally, no crackles, rales or wheezes, normal respiratory effort CARDIOVASCULAR: regular rate and rhythm, S1 and 2 heard without murmurs, gallops or rubs, no JVD, no peripheral edema CHEST: Port is present GASTROINTESTINAL: normal bowel sounds, soft, nontender, nondistended MUSCULOSKELETAL: strength 5/5 throughout, head is normocephalic and atraumatic , neck supple SKIN: warm and dry NEUROLOGIC: CN 2-12 grossly intact, normal cognition, normal speech PSYCHIATRIC: alert cooperative and oriented to person, place and time. Results & Data Medications Administered Current Inpatient Medications Acetaminophen (Tylenol) 650 mg PO Q4H PRN PRN Reason: Pain or Fever Stop: 04/02/18 03:32 Last Admin: 03/04/18 10:01 Dose: 650 mg Bupropion HCl (Wellbutrin) 100 mg PO BID [facility] Stop: 04/02/18 08:59 Last Admin: 03/04/18 08:13 Dose: 100 mg Calcitonin [place] (Fortical) 1 sprays NA QAM [facility] Stop: 04/03/18 08:59 Last Admin: 03/04/18 08:14 Dose: 1 sprays Clonazepam (Klonopin) 0.25 mg PO TID PRN PRN Reason: Anxiety Last Admin: 03/03/18 22:05 Dose: 0.25 mg Clozapine (Clozapine) 100 mg PO BID [facility] Stop: 04/02/18 08:59 Last Admin: 03/04/18 08:12 Dose: 100 mg Dextrose (Dextrose 50%) 25 - 50 ml IV UD PRN; Protocol PRN Reason: Hypoglycemia Protocol Stop: 04/02/18 03:32 Doxycycline Hyclate (Vibramycin) 100 mg PO BID [facility]; Protocol Stop: 03/10/18 20:59 Last Admin: 03/04/18 08:13 Dose: 100 mg Enoxaparin Sodium (Lovenox) [facility] Stop: 04/02/18 08:59 Last Admin: 03/04/18 08:15 Dose: Not Given Escitalopram Oxalate (Lexapro) 20 mg PO [facility] Stop: 04/02/18 08:59 Last Admin: 03/04/18 08:12 Dose: 20 mg Famotidine (Pepcid) 20 mg PO BID PRN PRN Reason: heartburn Stop: 04/02/18 08:59 Last Admin: 03/04/18 08:15 Dose: 20 mg Fenofibrate (Fenofibrate) [facility] Stop: 04/02/18 08:59 Last Admin: 03/04/18 08:13 Dose: 48 mg Ferrous Sulfate (Feosol) 325 mg PO BID@0600,1800 [facility] Stop: 04/02/18 05:59 Last Admin: 03/04/18 06:27 Dose: 325 mg Fluticasone Propionate (Flonase) 2 sprays [facility] Stop: 04/02/18 08:59 Last Admin: 03/04/18 08:13 Dose: 2 sprays Folic Acid (Folvite) [facility] Stop: 04/02/18 08:59 Last Admin: 03/04/18 08:12 Dose: 1 mg Gabapentin (Neurontin) 300 mg PO TID [facility] Stop: 04/02/18 08:59 Last Admin: 03/04/18 08:12 Dose: 300 mg Glucagon (Glucagen) 1 mg SQ UD PRN; Protocol PRN Reason: Hypoglycemia Protocol Stop: 04/02/18 03:32 Glucose (Dex4 Glucose) 4 - 8 tabs PO UD PRN; Protocol PRN Reason: Hypoglycemia Protocol Stop: 04/02/18 03:32 Glucose (Glucose 40%) 15 - 30 gm PO UD PRN; Protocol PRN Reason: Hypoglycemia Protocol Stop: 04/02/18 03:32 Guaifenesin (Mucinex) 600 mg PO Q12 [facility] Stop: 04/02/18 03:32 Last Admin: 03/04/18 08:16 Dose: 600 mg Heparin Sodium (Porcine) (Heparin Sod 100 Unit/Ml Flush) 5 ml FLUSH PRN PRN PRN Reason: A-port Stop: 04/02/18 17:48 Last Admin: 03/04/18 06:01 Dose: 5 ml Insulin Aspart (Novolog Flexpen) 0 units SC ACHS [facility] Stop: 04/02/18 03:32 Last Admin: 03/04/18 07:48 Dose: Not Given Insulin Glargine (Lantus Solostar Pen) 10 units SC DAILY [facility] Stop: 04/03/18 08:59 Last Admin: 03/04/18 07:54 Dose: 10 units Ioversol (Optiray 320 100ml) 93 ml IV ONCE PRN PRN Reason: Interaction Checking Stop: 03/07/18 02:47 Last Admin: 03/03/18 02:49 Dose: 1 ml Ipratropium [place] (Atrovent 0.02% 0.5mg/2.5ml) 0.5 mg INH Q6R [facility] Stop: 04/02/18 07:59 Last Admin: 03/04/18 07:18 Dose: 0.5 mg Levalbuterol HCl (Xopenex 1.25mg/0.5ml Neb) 1.25 mg INH Q6R [facility] Stop: 04/02/18 07:59 Last Admin: 03/04/18 07:19 Dose: 1.25 mg Miconazole Nitrate (Desenex) 1 appln EXT PRN PRN PRN Reason: Affected Skin Folds Stop: 04/02/18 06:54 Midodrine (Proamatine) 10 mg PO TID@0600,1200,1800 [facility] Stop: 04/02/18 05:59 Last Admin: 03/04/18 06:27 Dose: 10 mg Miscellaneous (Carbohydrates For Hypoglycemia) 15 - 30 gm PO UD PRN PRN Reason: Hypoglycemia Treatment Stop: 04/02/18 03:32 Montelukast Sodium (Singulair) 10 mg PO PM [facility] Stop: 04/02/18 20:59 Last Admin: 03/03/18 20:58 Dose: 10 mg Nitroglycerin (Nitrostat) 0.4 mg SL UD PRN PRN Reason: Chest Pain Stop: 04/02/18 03:32 Brexpiprazole ( (Rexulti)) 1 ea N/A QAM [facility] Stop: 04/03/18 08:59 Last Admin: 03/04/18 09:23 Dose: 1 tab Trelegy~Non- Formulary Patient's Own Med 1 ea INH DAILY [facility] Stop: 04/03/18 08:59 Last Admin: 03/04/18 09:21 Dose: 1 puffs Pantoprazole Sodium (Protonix) 40 mg PO BID [facility] Stop: 04/02/18 08:59 Last Admin: 03/04/18 08:16 Dose: 40 mg Prednisone (Prednisone) 40 mg PO DAILY [facility] Stop: 03/07/18 08:59 Last Admin: 03/04/18 08:15 Dose: 40 mg Senna/Docusate Sodium (Senokot S) 2 tab PO QAM [facility] Stop: 04/02/18 08:59 Last Admin: 03/04/18 08:16 Dose: 2 tab
[2018-03-03] MEDS ORDERED: FAMOTIDINE 20 MG TAB PO PRN (16:45)
[2018-03-03] MEDS ORDERED: HEPARIN 100 UNIT/ML 5ML FLUSH FLUSH PRN (17:49)
[2018-03-03] MEDS ORDERED: HEPARIN 100 UNIT/ML 5ML FLUSH ONE (17:56)
--- NOTE | 2018-03-03 19:52 | Pulmonary Consultation ---
Date of Consultation March 03, 2018 Assessment & Plan (1) Shortness of breath: Impression: 1. Chronic dyspnea secondary to pulmonary fibrosis due to chronic aspiration. 2. COPD, difficult to assess as the patient has significant restrictive lung disease. 3. Chest wall deformity due to kyphoscoliosis. 4. Chronic aspiration due to suppression of her cough drive from multiple psych medications especially clozapine. Plan: 1. Agree with your current dose of steroids, keep it for 5 days then stop it. 2. No need for antibiotics. 3. Continue bronchodilators. 4. Continue oxygen as she is doing at home. 5. Unless the patient medications has been altered especially narcotics and antipsychotic medications she would continue to aspirate and continue to progress with pulmonary fibrosis. 6. The patient would be better off placed in a pulmonary rehab than going home. 7. Discharge patient to pulmonary rehab. Thank you, will follow as needed. History of Present Illness Reason for Consultation: Acute on chronic respiratory failure. Attending Physician: Emely Villalobos DO History of Present Illness Dear Jessica: Thank you for the kind referral of Mrs. Tello to pulmonary service. This is 57-year-old female known to me from the past with history of [id number] smoking in the past, quit 4 years ago, history of schizophrenia, has been maintained on multiple medications, kyphoscoliosis with corrective surgery that left the patient with severe restriction as well, recurrent aspiration, resulted in pulmonary fibrosis. The patient was recently in the hospital and admitted and treated for COPD exacerbation and pneumonia. Discharge to the rehab and then went home and returned back again with increasing shortness of breath, the patient claimed that her respiratory status has been worsening for the past several days. Did not have any chest pain, did not have any colored sputum or hemoptysis. She has been short of breath with minimal exertion even to the bathroom. She continue to use her psych medications in which I have seen her in the last admission and recommended altering her medications that usually affecting her cough and respiratory status. Past medical history as mentioned above. Her family history is not contributing to her current illness. Her social history consistent with [id number] history of smoking last cigarette smoked was 4 years ago. She lives at home and her sister care for her. Allergies Allergy/AdvReac Type Severity Reaction Status Date / Time hydroxyzine Allergy Unknown UNKNOWN Verified 03/02/18 21:52 fluphenazine AdvReac Intermediate confusion Verified 03/02/18 21:52 haloperidol AdvReac Intermediate "MAKES ME Verified 03/02/18 21:52 GO INTO BLACKOUT" hydrocodone AdvReac Intermediate DROWSY Verified 03/02/18 21:52 molindone AdvReac Intermediate PT FEELS Verified 03/02/18 21:52 LIKE SHES "JUMPING OUT OF HER SKIN" morphine AdvReac Intermediate DROWSY Verified 03/02/18 21:52 lithium AdvReac Mild "LEVEL CAN Verified 03/02/18 21:52 GET TOO HIGH" Home Medications Home Medications Medication Instructions Recorded Confirmed Type acetaminophen [Tylenol Extra 500 mg PO QID PRN 12/27/17 03/02/18 History Strength] albuterol sulfate 2.5 mg INHALATION TID 12/27/17 03/02/18 History albuterol sulfate [Ventolin HFA] 2 puff INHALATION QID PRN 12/27/17 03/02/18 History brexpiprazole [Rexulti] 2 mg PO QAM 12/27/17 03/02/18 History bupropion HCl 100 mg PO AMHS 12/27/17 03/02/18 History calcitonin (salmon) 1 spray INTRANASAL QAM 12/27/17 03/02/18 History celecoxib [Celebrex] 100 mg PO AMHS 12/27/17 03/02/18 History clozapine [Clozaril] 100 mg PO BID 12/27/17 03/02/18 History diclofenac sodium [Voltaren] 4 g TOPICAL QID 12/27/17 03/02/18 History escitalopram oxalate [Lexapro] 20 mg PO QAM 12/27/17 03/02/18 History famotidine [Pepcid] 20 mg PO AMHS 12/27/17 03/02/18 History fenofibrate nanocrystallized 48 mg PO QAM 12/27/17 03/02/18 History [Tricor] ferrous sulfate [FerrouSul] 325 mg PO BIDM 12/27/17 03/02/18 History fluticasone [Flonase Allergy 2 spray INTRANASAL QAM 12/27/17 03/02/18 History Relief] folic acid 1 mg PO QAM 12/27/17 03/02/18 History gabapentin [Neurontin] 300 mg PO TID 12/27/17 03/02/18 History ipratropium bromide 0.5 mg INHALATION TID 12/27/17 03/02/18 History midodrine 10 mg PO TID 12/27/17 03/02/18 History montelukast [Singulair] 10 mg PO PM 12/27/17 03/02/18 History multivitamin with minerals [Daily 1 tab PO QAM 12/27/17 03/02/18 History Multivitamin-Minerals] sennosides-docusate sodium 2 tab PO QAM 12/27/17 03/02/18 History [Senna-S] calcium-vitamin D3-vitamin K 1 tab PO AMHS 02/18/18 03/02/18 History [Viactiv] clonazepam 0.25 mg PO TID PRN 02/18/18 03/02/18 History xygzuvvkwyv-xnrmswrkh-dnofomqk 1 inh INHALATION QAM 02/18/18 03/02/18 History [Trelegy Ellipta] ipratropium-albuterol 3 ml INHALATION TID PRN 02/18/18 03/02/18 History methocarbamol [Robaxin] 250 mg PO TID PRN 02/18/18 03/02/18 History pantoprazole [Protonix] 40 mg PO BID 02/18/18 03/02/18 History magnesium hydroxide [Milk of 15 ml PO HS PRN 03/02/18 03/02/18 History Magnesia] Patient History Medical History Asthma COPD (chronic obstructive pulmonary disease) Schizophrenia Chronic back pain GERD (gastroesophageal reflux disease) DVT prophylaxis Arthritis Aspiration pneumonia (11/26/10) COPD (chronic obstructive pulmonary disease) Chronic back pain Chronic hepatitis C (Unknown) Chronic obstructive lung disease (Unknown) Chronic paranoid schizophrenia (Unknown) Contusion of head DVT (deep venous thrombosis) right leg--no blood thinners Dyspnea GERD (gastroesophageal reflux disease) History of anesthesia reaction did not receive enough anesthesia during a colonoscopy and felt everything Hypotension Interstitial lung disease Mood disorder On home oxygen therapy 2L during day; 3L N/C @ HS Osteoarthritis Osteoporosis (Unknown) Respiratory failure, zjnmk-jn-yfecvus SOB (shortness of breath) Schizoaffective disorder (Unknown) Seizure (11/26/10) one time issue, related to a medication Spinal stenosis Urinary retention with incomplete bladder emptying Surgical History History of bilateral tubal ligation History of colonoscopy History of open reduction and internal fixation (ORIF) procedure left femur--rods in place History of thoracic spinal fusion fusion and decompression t6-t12 History of tooth extraction all teeth removed History of total abdominal hysterectomy and bilateral salpingo-oophorectomy History of vascular access device Aport on right side S/P ORIF (open reduction internal fixation) fracture right femur--rods in place S/P tonsillectomy Family History Grandmother (Paternal) Family hx of colon cancer Social History Current Living Situation: Family Current Living Situation Comment: Pt. lives with mother and sister. Other Information That Helps Us Care for You: No Feels Safe at Home: Yes Safety Concerns: Feels Safe At This Time Smoking Status: Unknown if ever smoked Hx Alcohol Use: No Hx Substance Use: No Beliefs That Will Affect Care: None Communication Ability: Effective Review of Systems Review of system was limited due to the patient's psych history, apart from the above, the rest of her history was unremarkable. Physical Exam 2 Vital Signs (Past 24 Hours): Last Vital Signs Temp 36.4 C L 03/03/18 19:00 Pulse 86 03/03/18 19:00 Resp 19 03/03/18 19:00 BP 125/88 03/03/18 19:00 Pulse Ox 97 03/03/18 19:00 Physical Exam: Vital signs are stable, S1-S2 regular rate and rhythm, bilateral Velcro type crackles, abdomen is benign, no edema. Results & Data Laboratory Results No leukocytosis, hematocrit is stable, pro calcitonin is negative, BUN and creatinine are stable. Diagnostic Findings Chest x-ray and CAT scan revealed bilateral pulmonary fibrosis, COPD changes.
[2018-03-03] MEDS: DOXYCYCLINE HYCLATE 100 MG CAP PO SCH (20:58)
[2018-03-03] MEDS ORDERED: MONTELUKAST SODIUM 10 MG TABLET PO SCH (21:00)
[2018-03-03] MEDS ORDERED: INSULIN GLARGINE SOLOSTAR 100 UNITS/ML 3 ML PEN SC SCH (21:00)
[2018-03-04] MEDS: IPRATROPIUM BROMIDE NEB SOLN 0.02% 2.5 ML VIAL INH SCH ×3 (02:20→14:07)
[2018-03-04] MEDS: LEVALBUTEROL 1.25MG/0.5ML NEB INH SCH ×3 (02:20→14:07)
[2018-03-04] MEDS: FERROUS SULFATE 325 MG TAB PO SCH (06:27)
[2018-03-04] MEDS: MIDODRINE HCL 10 MG TAB PO SCH ×2 (06:27→12:02)
[2018-03-04 06:49] LABS: BUN Creatinine Ratio 18.6 (10-20); Calcium 8.5 mg/dl (8.5-10.1); Creatinine Clr Calc Pharmacy 85.9 ml/min; Est GFR (African American) 90.1; Est GFR (Non-African American) 77.7
[2018-03-04] MEDS: INSULIN ASPART 100 UNITS/ML 3 ML PEN SC SCH ×3 (07:48→16:35)
[2018-03-04] MEDS: ESCITALOPRAM OXALATE 20 MG TAB PO SCH ×2 (08:11→08:12)
[2018-03-04] MEDS: cloZAPine 100 MG TAB PO SCH (08:12)
[2018-03-04] MEDS: GABAPENTIN 300 MG CAP PO SCH ×2 (08:12→14:16)
[2018-03-04] MEDS: FOLIC ACID 1 MG TAB PO SCH (08:12)
[2018-03-04] MEDS: FENOFIBRATE NANOCRYSTALLIZED 48 MG TABLET PO SCH (08:13)
[2018-03-04] MEDS: FLUTICASONE PROPIONATE NA SPR 16 GM BTL NAE SCH (08:13)
[2018-03-04] MEDS: buPROPion HCl 100 MG TABLET PO SCH (08:13)
[2018-03-04] MEDS: DOXYCYCLINE HYCLATE 100 MG CAP PO SCH (08:13)
[2018-03-04] MEDS: ENOXAPARIN INJ 40 MG/0.4 ML SYR SQ SCH (08:15)
[2018-03-04] MEDS: predniSONE 20 MG TAB PO SCH (08:15)
[2018-03-04] MEDS: PANTOprazole 40 MG TAB PO SCH (08:16)
[2018-03-04] MEDS: DOCUSATE SODIUM/SENNA 50/8.6MG TAB PO SCH (08:16)
[2018-03-04] MEDS: guaiFENesin 600 MG TABCR PO SCH (08:16)
[2018-03-04] MEDS ORDERED: CALCITONIN SALMON NA 200 IU/AC 3.7 ML BTL SCH (09:00)
[2018-03-04] MEDS ORDERED: INSULIN GLARGINE SOLOSTAR 100 UNITS/ML 3 ML PEN SC SCH (09:00)
[2018-03-04] MEDS ORDERED: TRELEGY INH SCH ×2 (09:00)
[2018-03-04] MEDS ORDERED: BREXPIPRAZOLE SCH (09:00)
[2018-03-04] MEDS: ACETAMINOPHEN 325 MG TAB PO PRN (10:01)
[2018-03-04] MEDS: clonazePAM 0.5 MG TAB PO PRN (12:00)
[2018-03-04] MEDS ORDERED: TRAMADOL HCL 50 MG TABLET PO PRN (13:35)
[2018-03-04] MEDS ORDERED: TRAMADOL HCL 50 MG TABLET PO STA (13:35)
[2018-03-04] MEDS ORDERED: NAPROXEN 250 MG TAB PO PRN (13:35)
--- NOTE | 2018-03-05 07:52 | Coding Query ---
To promote full compliance with coding requirements relating to patient care, provider participation is requested in all cases of bar porter uncertainty. Please assist us with the question(s) below: Coding Question(s): The diagnosis(es) below was documented in the ER H&P and/or H&P, then subsequently fell off all further documentation. Please indicate if it is still a possible diagnosis or ruled out. Physician's Response(s): POSSIBLE SEPSIS ( ) Diagnosed and POA ( ) Diagnosed and not POA ( x ) Ruled out ( ) Other (please specify) POSSIBLE PNEUMONIA ( ) Diagnosed and POA ( ) Diagnosed and not POA (x ) Ruled out ( ) Other (please specify) MTDD
--- NOTE | 2018-03-07 14:26 | Discharge Summary ---
Date of Service March 07, 2018 Admission HPI Per Admitting Provider History obtained from patient and records. Medical history significant for chronic respiratory failure secondary to COPD/ ILD on home O2, history of past tobacco and alcohol abuse, history of urinary incontinence, chronic hep C, schizoaffective disorder, history of MRSA, orthostatic hypotension on Midodrine, history of esophageal dysfunction, aspiration risk, hx recurrent DVT as per records Recent confinement December 2007 COPD exacerbation and pneumonia. The last few days patient noted junky but sticky cough symptoms, pleuritic chest pain, worsening shortness of breath. Denies aspiration. Patient thinks she got sick from her caregivers. Legs little swollen right leg noted with a bump as per patient. At the ER patient received Cefepime and Zosyn for pneumonia. 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 Admission Exam Per Admitting Provider GENERAL: Comfortable, obese, slightly anxious and shaky, no respiratory distress SKIN: Normal color, warm HEENT: [place] palpebral conjunctivae, no ptosis, dry buccal mucosa, nasal cannula in place NECK : Supple, short, no tenderness CHEST : Decreased breath sounds, expiratory wheezes , no tenderness HEART : RRR, no obvious murmurs ABDOMEN: Some distention, nontender EXTREMITIES : minimal LE swelling, tender nodularity right lower leg, no other conspicuous deformities noted NEUROLOGIC : Coherent, no facial asymmetry, no other gross focality except for mild shakiness and mild hearing impairment Principal Diagnosis Chronic dyspnea secondary to pulmonary fibrosis due to chronic aspiration. COPD Discharge Exam CONSTITUTIONAL: WNWD, vitals as above, generally well-appearing EYES: normal conjuctivae, no scleral icterus ENT: MMM RESPIRATORY: clear to auscultation bilaterally, no crackles, rales or wheezes, normal respiratory effort CARDIOVASCULAR: regular rate and rhythm, S1 and 2 heard without murmurs, gallops or rubs, no JVD, no peripheral edema CHEST: Port is present GASTROINTESTINAL: normal bowel sounds, soft, nontender, nondistended MUSCULOSKELETAL: strength 5/5 throughout, head is normocephalic and atraumatic , neck supple SKIN: warm and dry NEUROLOGIC: CN 2-12 grossly intact, normal cognition, normal speech PSYCHIATRIC: alert cooperative and oriented to person, place and time. Discharge Data Allergies Allergy/AdvReac Type Severity Reaction Status Date / Time hydroxyzine Allergy Unknown UNKNOWN Verified 03/02/18 21:52 fluphenazine AdvReac Intermediate confusion Verified 03/02/18 21:52 haloperidol AdvReac Intermediate "MAKES ME Verified 03/02/18 21:52 GO INTO BLACKOUT" hydrocodone AdvReac Intermediate DROWSY Verified 03/02/18 21:52 molindone AdvReac Intermediate PT FEELS Verified 03/02/18 21:52 LIKE SHES "JUMPING OUT OF HER SKIN" morphine AdvReac Intermediate DROWSY Verified 03/02/18 21:52 lithium AdvReac Mild "LEVEL CAN Verified 03/02/18 21:52 GET TOO HIGH" Consultations 03/02/18 23:29 ED Decision to Admit Stat 03/03/18 03:33 Consult Case Management - Discharge Planning Routine Consult Pulmonology Routine Ordered Studies 03/03/18 01:49 CT angio chest PE protocol Urgent US venous doppler [facility] Urgent Hospital Course (1) Dyspnea: (2) Pulmonary fibrosis: 57-year-old female with chronic hypoxia secondary to pulmonary fibrosis presents with shortness of breath to the ER. She was admitted for presumed exacerbation and started on doxycycline, nebulizers and steroid therapy. Pulmonary was consulted and did not feel this was an exacerbation but more so chronic dyspnea secondary to pulmonary fibrosis secondary to chronic aspiration. Chronic aspiration has been an issue on prior imaging and prior hospital stays evaluated by this assistant unit forester and is thought secondary to suppression of her cough drive multiple psychiatric medicines especially clozapine. She was continued on steroid therapy. Antibiotics were discontinued. Bronchodilator therapy was continued. It was recommended that she be discharged to pulmonary rehab, however, this was not available in an inpatient setting. Therefore, and an outpatient pulmonary rehab prescription was given to her prior to discharge and the inpatient correctional case records supervisor contacted the outpatient correctional case records supervisor to help to set this up. She was discharged in stable condition with close primary care follow-up recommended. Total Time Total Time Spent Total Time Spent (In Minutes): 60 Total Time Includes: Examination of the Patient, Discharge Planning, Medication Reconciliation and Communication With Other Providers Discharge Plan Discharge Items Patient Disposition: Home - Self-Care Reason For Visit: RESP FAILURE Discharge Diagnosis: Chronic dyspnea secondary to pulmonary fibrosis due to chronic aspiration, COPD Condition: Good Discharge Goals: Decrease discomfort and Improve disease control Activity: Resume your previous activity Non-emergency contact: Primary Care Provider Call non-emergency contact if: you have any medication questions, your pain is not controlled and you have a fever Follow-up/Referrals: Eric Art PA-C [Physician Tennis Professional] - Naveed Adam [Primary Care Provider] - Diet: Carb Consistent or DM2 Addtl Provider Instructions: Please take all medications as instructed on discharge list below. You have the following appointments: PRIMARY CARE 03/08/2018 2:00 PM Provider Naveed Adam III, MD Department [facility] Someone from our staff will contact you regarding outpatient pulmonary rehabilitation, which is a preferred program per your Tuber Operator. It was a pleasure taking care of you! Please call if you have any questions or problems. You can reach a [facility] hospitalist on duty at [facility] 24 hours a day by calling [phone]. Take care of yourself. Emely Villalobos, DO [facility] Hospitalist Prescriptions: New tramadol 50 mg tablet 50 mg PO Q6H PRN (Reason: pain) Qty: 20 RF: 0 Continue clozapine [Clozaril] 100 mg Tablet 100 mg PO BID RF: 0 acetaminophen [Tylenol Extra Strength] 500 mg Tablet 500 mg PO QID PRN (Reason: Pain) RF: 0 bupropion HCl 100 mg Tablet 100 mg PO AMHS RF: 0 famotidine [Pepcid] 20 mg Tablet 20 mg PO AMHS RF: 0 calcitonin (salmon) 200 unit/actuation [place],Non-Aerosol 1 spray Intranasal QAM RF: 0 ferrous sulfate [FerrouSul] 325 mg (65 mg iron) tablet 325 mg PO BIDM RF: 0 gabapentin [Neurontin] 300 mg capsule 300 mg PO TID RF: 0 folic acid 1 mg Tablet 1 mg PO QAM RF: 0 montelukast [Singulair] 10 mg Tablet 10 mg PO PM RF: 0 multivitamin with minerals [Daily Multivitamin-Minerals] Tablet 1 tab PO QAM RF: 0 albuterol sulfate [Ventolin HFA] 90 mcg/actuation Hfa Aerosol Inhaler 2 puff INHALATION QID PRN (Reason: Shortness Of Breath Or Wheezing) RF: 0 fluticasone [Flonase Allergy Relief] 50 mcg/actuation [place],Suspension 2 spray INTRANASAL QAM RF: 0 ipratropium bromide 0.02 % Solution 0.5 mg INHALATION TID RF: 0 midodrine 10 mg Tablet 10 mg PO TID RF: 0 escitalopram oxalate [Lexapro] 20 mg Tablet 20 mg PO QAM RF: 0 albuterol sulfate 2.5 mg/0.5 mL Solution For Nebulization 2.5 mg INHALATION TID RF: 0 fenofibrate nanocrystallized [Tricor] 48 mg Tablet 48 mg PO QAM RF: 0 diclofenac sodium [Voltaren] 1 % Gel 4 g TOPICAL QID RF: 0 brexpiprazole [Rexulti] 2 mg Tablet 2 mg PO QAM RF: 0 ipratropium-albuterol 0.5 mg-3 mg(2.5 mg base)/3 mL Solution For Nebulization 3 ml INHALATION TID PRN (Reason: Shortness Of Breath) RF: 0 clonazepam 0.25 mg Tablet,Disintegrating 0.25 mg PO TID PRN (Reason: Anxiety) RF: 0 calcium-vitamin D3-vitamin K [Viactiv] 500-500-40 mg-unit-mcg Tablet,Chewable 1 tab PO AMHS RF: 0 drpklrnlmuf-zaopptmzv-cvrqkjyn [Trelegy Ellipta] 100-62.5-25 mcg Blister With Device 1 inh INHALATION QAM RF: 0 pantoprazole [Protonix] 40 mg Tablet,Delayed Release (Dr/Ec) 40 mg PO BID RF: 0 magnesium hydroxide [Milk of Magnesia] 400 mg/5 mL Suspension 15 ml PO HS PRN (Reason: Constipation) RF: 0 Discontinued sennosides-docusate sodium [Senna-S] 8.6-50 mg Tablet 2 tab PO QAM RF: 0 celecoxib [Celebrex] 100 mg capsule 100 mg PO AMHS RF: 0 methocarbamol [Robaxin] 500 mg Tablet 250 mg PO TID PRN (Reason: Muscle Spasm) RF: 0 Stand-Alone Forms: [facility] Discharge Orders: Discharge Order (Routine); Ordered 03/04/18 Ordered By: Emely Villalobos Admission Data Admit Date/Time: 03/03/18 01:53 Attending Provider: Emely Villalobos Admit Provider: John Arreaga Primary Care Provider: Naveed Adam Other Providers: Meseret Monae Service: Telemetry Medical Other Interventions: Discharge Summary Assessment (RN) Last Done: 03/04/18 16:08 DC Date/Time DO NOT enter until pt leaves facility: 03/04/18 16:15
== END 2018-03-04 16:15 | disposition home or self-care (01) | DRG 196 ==
LOC: ED 20:22 → 2W 03-03 01:53
DX: Z87.01 Personal history of pneumonia (recurrent); Z51.81 Encounter for therapeutic drug level monitoring; F20.0 Paranoid schizophrenia; Z80.0 Family history of malignant neoplasm of digestive organs; Z87.891 Personal history of nicotine dependence; G89.29 Other chronic pain; B18.2 Chronic viral hepatitis C; Z82.3 Family history of stroke; T42.4X5A Adverse effect of benzodiazepines, initial encounter; R13.10 Dysphagia, unspecified; Z86.14 Personal history of Methicillin resistant Staphylococcus aureus infection; J43.9 Emphysema, unspecified; I95.1 Orthostatic hypotension; Z99.81 Dependence on supplemental oxygen; J84.89 Other specified interstitial pulmonary diseases; Z86.718 Personal history of other venous thrombosis and embolism; Z98.1 Arthrodesis status; Z79.899 Other long term (current) drug therapy; Z88.5 Allergy status to narcotic agent; E11.65 Type 2 diabetes mellitus with hyperglycemia; Z88.8 Allergy status to other drugs, medicaments and biological substances; J96.21 Acute and chronic respiratory failure with hypoxia; Z87.39 Personal history of other diseases of the musculoskeletal system and connective tissue; M54.9 Dorsalgia, unspecified; K21.9 Gastro-esophageal reflux disease without esophagitis; Z80.3 Family history of malignant neoplasm of breast; F10.11 Alcohol abuse, in remission; Z80.1 Family history of malignant neoplasm of trachea, bronchus and lung

== ENCOUNTER 2018-06-26 17:33 | Inpatient (IN) ==
[2018-06-26] MEDS ORDERED: ALBUT/IPRATROP 3MG/0.5MG NEB 3 ML VIAL INH STA (18:00)
--- NOTE | 2018-06-26 18:14 | XRay Report ---
XR chest 1V portable CLINICAL HISTORY: sob dyspnea COMPARISON STUDY: 05/31/2018 FINDINGS: Mild increase in cardiac size. Stable postoperative changes to the thoracic spine. Slightly progressive left perihilar parenchymal infiltrate. Stable right upper lobe infiltrate. Diaph ragms are smooth. IMPRESSION: Diffuse bilateral parenchymal infiltrates slightly progressive in the left perihilar reg ion. The above report was generated using voice recognition software. It may contain grammatical, syntax or spelling errors. Electronically signed by: Manfred Noriega M.D. 06/26/2018 6:12 PM
[2018-06-26 19:23] LABS: Basophils # (auto) 0.04 K/uL (0-0.2); Basophils % (auto) 0.5 %; Eosinophils # (auto) 0.46 K/uL (0-0.5); Eosinophils % (auto) 5.5 %; Hematocrit (blood only) 40.9 % (37-47); Hemoglobin 13.4 g/dL (12.0-16.0); Immature Granulocytes # (auto) 0.03 K/uL (0.00-0.02); Immature Granulocytes % (auto) 0.4 %; Lymphocytes # (auto) 1.75 K/uL (1.2-3.4); Lymphocytes % (auto) 21.1 %; Mean Corpuscular Hgb Conc 32.8 g/dL (32-36); Mean Corpuscular Volume 94.7 fL (80-100); Mean Platelet Volume 10.7 fL (7.4-10.4); Monocytes # (auto) 0.96 K/uL (0.11-0.59); Monocytes % (auto) 11.6 %; Neutrophils # (auto) 5.06 K/uL (1.4-6.5); Neutrophils % (auto) 60.9 %; Platelet Count 162 K/uL (130-400); RDW Standard Deviation 48.6 fL (36.4-46.3); Red Blood Count 4.32 M/uL (4.2-5.4)
[2018-06-26 19:39] LABS: Alanine Aminotransferase 34 U/L (12-78); Albumin Level 3.4 gm/dl (3.4-5.0); Aspartate Aminotransferase 36 U/L (15-37); BUN Creatinine Ratio 22.4 (10-20); Blood Urea Nitrogen 18 mg/dl (7-18); Calcium 9.2 mg/dl (8.5-10.1); Carbon Dioxide 26 mmol/L (21-32); Chloride 108 mmol/L (98-107); Creatinine Clr Calc Pharmacy 89.8 ml/min; Est GFR (African American) 95.6; Est GFR (Non-African American) 82.5; Glucose 111 mg/dl (70-99); Magnesium 1.8 mg/dl (1.8-2.4); Potassium 4.1 mmol/L (3.5-5.1); Sodium 140 mmol/L (136-145)
[2018-06-26 19:41] LABS: INR 1.1 (0.9-1.1); Partial Thromboplastin Ratio 0.9; Partial Thromboplastin Time 23.4 Seconds (21.0-31.0); Prothrombin Time 11.2 Seconds (9.0-12.0)
[2018-06-26 19:44] LABS: Albumin Globulin Ratio 0.9 (0.9-2); Alkaline Phosphatase 74 U/L (45-117); Bilirubin,Total 0.3 mg/dl (0.2-1); Globulin 3.9 gm/dl (2.5-4.0); Total Protein 7.3 gm/dl (6.4-8.2); Troponin I < 0.015 ng/ml (0-0.045)
[2018-06-26] MEDS ORDERED: PIPERACILLIN/TAZOBACTAM 4.5 GM/120 ML BAG IV ONE (20:10)
[2018-06-26] MEDS ORDERED: methylPREDNISolone 60 MG in SYRINGE 1 ML IV STA (20:10)
--- NOTE | 2018-06-26 20:45 | Emergency Department Note ---
Entered by Ashley Mccarthy acting as a scribe for Hubert Raymundo MD History of Present Illness General Chief complaint: Shortness of Breath/Dyspnea Stated complaint: DIFFICULTY BREATHING EVEN W/BI PAP Time Seen by Provider: 06/26/18 17:55 Source: patient Limitations: no limitations History of Present Illness Onset (ago): day(s) 1 Location: chest Severity: similar to prior episodes Pain Consistency: + intermittent Maximum Pain Intensity: 3 Quality: + other (SOB) Associated symptoms: + nausea/vomiting (complains of nausea, denies any vomiting); no cough The patient is a 57 year old female who presents to the ED complaining of intermittent SOB that began yesterday. She notes that this feels similar to past episodes of pneumonia. The patient notes that her sister called 911. The patient complains of nausea. She denies any vomiting, fever, and coughing. She notes that she wears 2-3 liters of oxygen during the day and is on BiPAP and night. She notes a history of COPD. The patient states that she is taking albuterol and flonase. Home Medications Home Medications Medication Instructions Recorded Confirmed Type acetaminophen [Tylenol Extra 500 mg PO QID PRN MDD 2 GRAM/24 12/27/17 06/26/18 History Strength] HOURS albuterol sulfate 2.5 mg INHALATION TID 12/27/17 06/26/18 History albuterol sulfate [Ventolin HFA] 2 puff INHALATION QID PRN 12/27/17 06/26/18 History bupropion HCl 100 mg PO BID 12/27/17 06/26/18 History calcitonin (salmon) 1 spray INTRANASAL QAM 12/27/17 06/26/18 History clozapine [Clozaril] 100 mg PO BID 12/27/17 06/26/18 History diclofenac sodium [Voltaren] 4 g TOPICAL QID PRN 12/27/17 06/26/18 History escitalopram oxalate [Lexapro] 20 mg PO QAM 12/27/17 06/26/18 History famotidine [Pepcid] 20 mg PO BID 12/27/17 06/26/18 History fenofibrate nanocrystallized 48 mg PO QAM 12/27/17 06/26/18 History [Tricor] ferrous sulfate [FerrouSul] 325 mg PO BIDM 12/27/17 06/26/18 History fluticasone propionate [Flonase 2 spray INTRANASAL QAM 12/27/17 06/26/18 History Allergy Relief] folic acid 1 mg PO QAM 12/27/17 06/26/18 History gabapentin [Neurontin] 300 mg PO TIDM 12/27/17 06/26/18 History ipratropium bromide 0.5 mg INHALATION TID 12/27/17 06/26/18 History midodrine 10 mg PO TIDM 12/27/17 06/26/18 History montelukast [Singulair] 10 mg PO HS 12/27/17 06/26/18 History multivitamin with minerals [Daily 1 tab PO QAM 12/27/17 06/26/18 History Multivitamin-Minerals] Trelegy Ellipta 1 inh INHALATION QAM 02/18/18 06/26/18 History calcium-vitamin D3-vitamin K 1 tab PO BID 02/18/18 06/26/18 History [Viactiv] clonazepam 0.25 mg PO TID PRN 02/18/18 06/26/18 History pantoprazole [Protonix] 40 mg PO BIDM 02/18/18 06/26/18 History magnesium hydroxide [Milk of 15 ml PO HS PRN 03/02/18 06/26/18 History Magnesia] benzonatate [Tessalon Perles] 100 mg PO TID PRN #15 cap 04/28/18 06/26/18 Rx zoledronic [id number] 5 mg IV YEARLY 04/28/18 06/26/18 History [Reclast] albuterol sulfate 2.5 mg DAILY 06/21/18 06/26/18 History acetaminophen-codeine 1 tab PO Q8 PRN 06/26/18 06/26/18 History brexpiprazole [Rexulti] 3 mg PO QAM 06/26/18 06/26/18 History Allergies Allergy/AdvReac Type Severity Reaction Status Date / Time hydroxyzine Allergy Unknown UNKNOWN Verified 06/26/18 18:46 fluphenazine AdvReac Intermediate confusion Verified 06/26/18 18:46 haloperidol AdvReac Intermediate "MAKES ME Verified 06/26/18 18:46 GO INTO BLACKOUT" hydrocodone AdvReac Intermediate DROWSY Verified 06/26/18 18:46 molindone AdvReac Intermediate PT FEELS Verified 06/26/18 18:46 LIKE SHES "JUMPING OUT OF HER SKIN" morphine AdvReac Intermediate DROWSY Verified 06/26/18 18:46 lithium AdvReac Mild "LEVEL CAN Verified 06/26/18 18:46 GET TOO HIGH" Past Med/Surg History Medical History Chronic respiratory failure with hypoxia, on home O2 therapy On home oxygen therapy 2L during day; 3L N/C @ HS GERD (gastroesophageal reflux disease) Spinal stenosis Osteoarthritis History of anesthesia reaction did not receive enough anesthesia during a colonoscopy and felt everything Asthma COPD (chronic obstructive pulmonary disease) Schizophrenia Chronic back pain GERD (gastroesophageal reflux disease) DVT prophylaxis Arthritis Aspiration pneumonia (11/26/10) COPD (chronic obstructive pulmonary disease) Chronic back pain Chronic hepatitis C (Unknown) Chronic obstructive lung disease (Unknown) Chronic paranoid schizophrenia (Unknown) Contusion of head DVT (deep venous thrombosis) right leg--no blood thinners Dyspnea Hypotension Interstitial lung disease Mood disorder Osteoporosis (Unknown) Respiratory failure, hyoue-wu-ohzroch SOB (shortness of breath) Schizoaffective disorder (Unknown) Seizure (11/26/10) one time issue, related to a medication Urinary retention with incomplete bladder emptying Surgical History History of tooth extraction all teeth removed History of total abdominal hysterectomy and bilateral salpingo-oophorectomy History of colonoscopy History of open reduction and internal fixation (ORIF) procedure left femur--rods in place History of bilateral tubal ligation History of vascular access device Aport on right side History of thoracic spinal fusion fusion and decompression t6-t12 S/P ORIF (open reduction internal fixation) fracture right femur--rods in place S/P tonsillectomy Family History Grandmother (Paternal) Family hx of colon cancer Social History Preferred Language: Uzbek Communication Ability: Effective Visual Impairment: No Limitations Beliefs That Will Affect Care: None Current Living Situation: Parent and Family Current Living Situation Comment: Pt. lives with mother and sister. Other Information That Helps Us Care for You: No Feels Safe at Home: Yes Safety Concerns: Feels Safe At This Time Smoking Status: Former smoker Tobacco Type: cigarettes Second Hand Exposure: No Hx Alcohol Use: Yes Hx Substance Use: Yes substance use type: former substance user, marijuana, crack/cocaine and heroin Substance Use Type Other:: No longer Review of Systems See HPI for pertinent positives & negatives. and A total of 10 systems reviewed and were otherwise negative Physical Exam Vital Signs Vital Signs - 24 hr 06/26/18 17:37 06/26/18 18:00 06/26/18 20:07 Temperature 36.6 C Temperature Source Oral Sepsis Recent Fever Within 48 Hours No Sepsis Action Taken by Nursing No Action Required Pulse Rate 93 H Pulse Rate [Left Finger] Pulse Rhythm [Left Finger] Respiratory Rate 18 Respiratory Effort / Characteristics Non-Labored Spontaneous Respiratory Depth Normal Respiratory Pattern Regular Blood Pressure 112/74 Blood Pressure [Left Arm] Blood Pressure Mean 86 Blood Pressure Mean [Left Arm] Blood Pressure Position Sitting Blood Pressure Position [Left Arm] Pulse Oximetry 92 94 96 Oxygen Delivery Method Nasal Cannula Nasal Cannula Nasal Cannula Oxygen Flow Rate 3 2 2 06/26/18 21:07 06/26/18 21:34 06/26/18 22:09 Temperature Temperature Source Sepsis Recent Fever Within 48 Hours Sepsis Action Taken by Nursing Pulse Rate 81 Pulse Rate [Left Finger] 81 Pulse Rhythm [Left Finger] Regular Respiratory Rate 18 18 Respiratory Effort / Characteristics Non-Labored Non-Labored Spontaneous SOB on Exertion Respiratory Depth Normal Normal Respiratory Pattern Regular Regular Blood Pressure 129/91 Blood Pressure [Left Arm] 146/73 H Blood Pressure Mean Blood Pressure Mean [Left Arm] 97 Blood Pressure Position Blood Pressure Position [Left Arm] Lying Pulse Oximetry 100 100 94 Oxygen Delivery Method Nasal Cannula Nasal Cannula Nasal Cannula BiPAP Oxygen Flow Rate 2 2 2 06/26/18 23:00 06/26/18 23:02 06/27/18 00:00 Temperature 36.8 C Temperature Source Oral Sepsis Recent Fever Within 48 Hours Sepsis Action Taken by Nursing Pulse Rate 88 Pulse Rate [Left Finger] 83 77 Pulse Rhythm [Left Finger] Respiratory Rate 16 18 Respiratory Effort / Characteristics Non-Labored Spontaneous Non-Labored Spontaneous SOB on Exertion Respiratory Depth Normal Respiratory Pattern Regular Blood Pressure Blood Pressure [Left Arm] 131/78 Blood Pressure Mean Blood Pressure Mean [Left Arm] 95 Blood Pressure Position Blood Pressure Position [Left Arm] Left Lateral Pulse Oximetry 96 95 Oxygen Delivery Method Nasal Cannula Room Air Nasal Cannula Oxygen Flow Rate 2 2 06/27/18 03:26 06/27/18 03:33 06/27/18 07:38 Temperature 36.9 C 36.8 C Temperature Source Oral Oral Sepsis Recent Fever Within 48 Hours Sepsis Action Taken by Nursing Pulse Rate Pulse Rate [Left Finger] 92 H 88 88 Pulse Rhythm [Left Finger] Respiratory Rate 20 14 20 Respiratory Effort / Characteristics Non-Labored Spontaneous Respiratory Depth Normal Respiratory Pattern Blood Pressure Blood Pressure [Left Arm] 115/82 128/84 Blood Pressure Mean Blood Pressure Mean [Left Arm] 93 98 Blood Pressure Position Blood Pressure Position [Left Arm] Lying Lying Pulse Oximetry 98 95 97 Oxygen Delivery Method Nasal Cannula Nasal Cannula Oxygen Flow Rate 2 3 3 06/27/18 07:56 06/27/18 11:23 06/27/18 11:29 Temperature 36.4 C L Temperature Source Oral Sepsis Recent Fever Within 48 Hours Sepsis Action Taken by Nursing Pulse Rate Pulse Rate [Left Finger] 85 87 84 Pulse Rhythm [Left Finger] Respiratory Rate 20 20 18 Respiratory Effort / Characteristics Non-Labored Spontaneous Non-Labored Spontaneous Respiratory Depth Respiratory Pattern Blood Pressure Blood Pressure [Left Arm] 134/86 Blood Pressure Mean Blood Pressure Mean [Left Arm] 102 Blood Pressure Position Blood Pressure Position [Left Arm] Pulse Oximetry 96 95 96 Oxygen Delivery Method Nasal Cannula Nasal Cannula Oxygen Flow Rate 3 3 3 GENERAL: Patient is in no acute distress. HEENT: No acute trauma, normocephalic atraumatic, mucous membranes moist, no nasal congestion, no scleral icterus. NECK: No stridor, no adenopathy, no meningismus, trachea is midline. LUNGS: Somewhat diminished breath sounds. Equal breath sounds. No respiratory distress. Crackles bilaterally, somewhat worse on the left. HEART: Without murmurs gallops or rubs, regular rate and rhythm. ABDOMEN: Soft, nontender, bowel sounds positive, no hernias, no peritonitis. EXTREMITIES: No cyanosis, full range of motion of all the joints without pain or difficulty, no signs for acute trauma. Bilateral pedal edema. NEUROLOGIC: Oriented x 3, no acute motor or sensory deficits, no focal weakness. SKIN: No rash, no jaundice, no diaphoresis. Course 1755: The patient was evaluated in room [facility]. A complete history and physical exam was performed. 2010: I reevaluated the patient. She stated that she was doing okay, but did not feel well enough to go home. 2018:I spoke with Dr. King, [facility] hospitalist, about the patients case. He will further evaluate her. Consultations Consultation #1: [facility]. He will further evaluate her. Time: 20:18 Administered Medications Acetaminophen/Codeine Phosphate (Tylenol W/Codeine #3) 1 tab PO Q8 PRN PRN Reason: Pain Stop: 07/26/18 22:08 Last Admin: 06/27/18 11:13 Dose: 1 tab Documented by: [id number] Albuterol (Duoneb) 3 ml NEB Q4R [facility] Stop: 07/27/18 00:00 Last Admin: 06/27/18 11:27 Dose: 3 ml Documented by: [id number] Admin: 06/27/18 07:21 Dose: 3 ml Documented by: [id number] Admin: 06/27/18 03:33 Dose: 3 ml Documented by: [id number] Admin: 06/26/18 22:57 Dose: 3 ml Documented by: [id number] Bupropion HCl (Wellbutrin) 100 mg PO BID17 [facility]1983 Stop: 07/27/18 08:59 Last Admin: 06/27/18 08:44 Dose: 100 mg Documented by: [id number] Calcitonin [place] (Fortical) 1 sprays NA QAM [facility], [facility]1983 Stop: 07/27/18 08:59 Last Admin: 06/27/18 08:43 Dose: 1 sprays Documented by: [id number] Clozapine (Clozapine) 100 mg PO BID [facility]1983 Stop: 07/26/18 22:29 Last Admin: 06/27/18 08:41 Dose: 100 mg Documented by: [id number] Admin: 06/26/18 23:53 Dose: 100 mg Documented by: [id number] Enoxaparin Sodium (Lovenox) 40 mg SQ Q24H [facility]1983 Stop: 07/26/18 22:59 Last Admin: 06/26/18 23:56 Dose: 40 mg Documented by: [id number] Escitalopram Oxalate (Lexapro) 20 mg PO QAM [facility]1983 Stop: 07/27/18 08:59 Last Admin: 06/27/18 08:43 Dose: 20 mg Documented by: [id number] Famotidine (Pepcid) 20 mg PO BID [facility] Stop: 07/26/18 22:29 Last Admin: 06/27/18 08:44 Dose: 20 mg Documented by: [id number] Admin: 06/26/18 23:54 Dose: 20 mg Documented by: [id number] Fenofibrate (F[facility]ofibrate) [facility] [place] Stop: 07/27/18 08:59 Last Admin: 06/27/18 08:41 Dose: 48 mg Documented by: [id number] Ferrous Sulfate (Feosol) [facility] [place] Stop: 07/27/18 07:59 Last Admin: 06/27/18 08:39 Dose: 325 mg Documented by: [id number] Fluticasone Propionate (Flonase) 2 sprays NA [facility] Stop: 07/27/18 08:59 Last Admin: 06/27/18 08:42 Dose: 2 sprays Documented by: [id number] Folic Acid (Folvite) 1 mg PO [facility] Stop: 07/27/18 08:59 Last Admin: 06/27/18 08:42 Dose: 1 mg Documented by: [id number] Gabapentin (Neurontin) [facility] [place] Stop: 07/27/18 07:59 Last Admin: 06/27/18 11:14 Dose: 300 mg Documented by: [id number] Admin: 06/27/18 08:40 Dose: 300 mg Documented by: [id number] Methylprednisolone 40 mg/ (Syringe) 0.64 mls @ 1.5 mls/min IV Q8H [facility] Stop: 07/27/18 03:59 Last Admin: 06/27/18 11:13 Dose: 1.5 mls/min Documented by: [id number] Admin: 06/27/18 04:30 Dose: 1.5 mls/min Documented by: [id number] Piperacillin Sod/Tazobactam (Sod 4.5 gm/ Dextrose) 120 mls @ 30 mls/hr IV Q8H [facility]; Protocol Stop: 07/03/18 03:59 Last Admin: 06/27/18 11:22 Dose: 30 mls/hr Documented by: [id number] Infusion: 06/27/18 08:58 Dose: 0 mls/hr Documented by: [id number] Admin: 06/27/18 04:29 Dose: 30 mls/hr Documented by: [id number] Midodrine (Proamatine) [facility] [place] Stop: 07/27/18 07:59 Last Admin: 06/27/18 11:14 Dose: 10 mg Documented by: [id number] Admin: 06/27/18 08:40 Dose: 10 mg Documented by: [id number] Miscellaneous (Order Awaiting Action) 1 ea N/A QS [facility] Stop: 07/27/18 00:00 Last Admin: 06/27/18 07:12 Dose: Not Given Documented by: [id number] Admin: 06/27/18 01:03 Dose: Not Given Documented by: [id number] Miscellaneous (Order Awaiting Action) 1 ea N/A QS [facility] Stop: 07/27/18 00:00 Last Admin: 06/27/18 07:12 Dose: Not Given Documented by: [id number] Admin: 06/27/18 01:03 Dose: Not Given Documented by: [id number] Montelukast Sodium (Singulair) 10 mg PO HS [facility] Stop: 07/26/18 22:29 Last Admin: 06/26/18 23:54 Dose: 10 mg Documented by: [id number] Multivitamins (Multivitamin Tab) 1 tab PO QAM [facility] Stop: 07/27/18 08:59 Last Admin: 06/27/18 08:43 Dose: 1 tab Documented by: [id number] Pantoprazole Sodium (Protonix) 40 mg PO BIDM [facility] Stop: 07/27/18 07:59 Last Admin: 06/27/18 08:41 Dose: 40 mg Documented by: [id number] Discontinued Medications Albuterol (Duoneb) 3 ml INH NOW STA Stop: 06/26/18 18:01 Last Admin: 06/26/18 18:48 Dose: 3 ml Documented by: [id number] Piperacillin Sod/Tazobactam Sod (Zosyn) 4.5 gm in 120 mls @ 240 mls/hr IV NOW ONE Stop: 06/26/18 20:39 Last Infusion: 06/26/18 22:37 Dose: 0 mls/hr Documented by: [id number] Admin: 06/26/18 21:29 Dose: 240 mls/hr Documented by: [id number] Methylprednisolone 60 mg/ (Syringe) 1.96 mls @ 1.5 mls/min IV NOW STA Stop: 06/26/18 20:11 Last Admin: 06/26/18 21:03 Dose: 1.5 mls/min Documented by: [id number] Sodium Chloride (Nss 1000ml) 1,000 mls @ 80 mls/hr IV .[id number] DEVAN Stop: 06/27/18 10:59 Last Admin: 06/26/18 23:51 Dose: 80 mls/hr Documented by: [id number] Methylprednisolone (Solumedrol) Confirm Administered Dose 125 mg .ROUTE .STK-MED ONE Stop: 06/26/18 21:02 Last Admin: 06/26/18 21:03 Dose: Not Given Documented by: [id number] Medical Decision Making Differential Diagnosis The differential diagnosis includes: bronchitis, pneumonia, CHF, anemia, electrolyte imbalance, OK, URI, and pneumothorax. Medical Records Attestation: I reviewed the patient's medical records. Home Medications Current Medication List: was personally reviewed by me Laboratory Data Attestation: I reviewed the patient's lab results. Result diagrams: 06/26/18 19:12 06/26/18 19:12 Lab Results 06/26/18 06/26/18 06/26/18 Range/Units 19:12 19:12 19:12 WBC 8.30 (4.8-10.8) K/uL RBC 4.32 (4.2-5.4) M/uL Hgb 13.4 (12.0-16.0) g/dL Hct 40.9 (37-47) % MCV 94.7 (80-100) fL MCH 31.0 (25-34) pg MCHC 32.8 (32-36) g/dL RDW Std Deviation 48.6 H (36.4-46.3) fL RDW Coeff of Ivy 14.0 (11.5-14.5) % Plt Count 162 (130-400) K/uL MPV 10.7 H (7.4-10.4) fL Immature Gran % (Auto) 0.4 % Neut % (Auto) 60.9 % Lymph % (Auto) 21.1 % Green % (Auto) 11.6 % Eos % (Auto) 5.5 % Baso % (Auto) 0.5 % Immature Gran # (Auto) 0.03 H (0.00-0.02) K/uL Neut # (Auto) 5.06 (1.4-6.5) K/uL Lymph # (Auto) 1.75 (1.2-3.4) K/uL Green # (Auto) 0.96 H (0.11-0.59) K/uL Eos # (Auto) 0.46 (0-0.5) K/uL Baso # (Auto) 0.04 (0-0.2) K/uL PT 11.2 (9.0-12.0) Seconds INR 1.1 (0.9-1.1) APTT 23.4 (21.0-31.0) Seconds PTT Ratio 0.9 Sodium 140 (136-145) mmol/L Potassium 4.1 (3.5-5.1) mmol/L Chloride 108 H (98-107) mmol/L Carbon Dioxide 26 (21-32) mmol/L Anion Gap 7.0 (3-11) BUN 18 (7-18) mg/dl Creatinine 0.79 (0.6-1.2) mg/dl Est Cr Clr Drug Dosing 89.8 ml/min Est GFR ( Amer) 95.6 Est GFR (Non-Af Amer) 82.5 BUN/Creatinine Ratio 22.4 H (10-20) Glucose 111 H (70-99) mg/dl POC Glucose (70-99) Calcium 9.2 (8.5-10.1) mg/dl Magnesium 1.8 (1.8-2.4) mg/dl Total Bilirubin 0.3 (0.2-1) mg/dl AST 36 (15-37) U/L ALT 34 (12-78) U/L Alkaline Phosphatase 74 (45-117) U/L Troponin I < 0.015 (0-0.045) ng/ml Total Protein 7.3 (6.4-8.2) gm/dl Albumin 3.4 (3.4-5.0) gm/dl Globulin 3.9 (2.5-4.0) gm/dl Albumin/Globulin Ratio 0.9 (0.9-2) Procalcitonin (0-0.5) ng/ml 06/26/18 06/27/18 06/27/18 Range/Units 20:58 03:29 07:44 WBC (4.8-10.8) K/uL RBC (4.2-5.4) M/uL Hgb (12.0-16.0) g/dL Hct (37-47) % MCV (80-100) fL MCH (25-34) pg MCHC (32-36) g/dL RDW Std Deviation (36.4-46.3) fL RDW Coeff of Ivy (11.5-14.5) % Plt Count (130-400) K/uL MPV (7.4-10.4) fL Immature Gran % (Auto) % Neut % (Auto) % Lymph % (Auto) % Green % (Auto) % Eos % (Auto) % Baso % (Auto) % Immature Gran # (Auto) (0.00-0.02) K/uL Neut # (Auto) (1.4-6.5) K/uL Lymph # (Auto) (1.2-3.4) K/uL Green # (Auto) (0.11-0.59) K/uL Eos # (Auto) (0-0.5) K/uL Baso # (Auto) (0-0.2) K/uL PT (9.0-12.0) Seconds INR (0.9-1.1) APTT (21.0-31.0) Seconds PTT Ratio Sodium (136-145) mmol/L Potassium (3.5-5.1) mmol/L Chloride (98-107) mmol/L Carbon Dioxide (21-32) mmol/L Anion Gap (3-11) BUN (7-18) mg/dl Creatinine (0.6-1.2) mg/dl Est Cr Clr Drug Dosing ml/min Est GFR ( Amer) Est GFR (Non-Af Amer) BUN/Creatinine Ratio (10-20) Glucose (70-99) mg/dl POC Glucose 192 H 186 H (70-99) Calcium (8.5-10.1) mg/dl Magnesium (1.8-2.4) mg/dl Total Bilirubin (0.2-1) mg/dl AST (15-37) U/L ALT (12-78) U/L Alkaline Phosphatase (45-117) U/L Troponin I (0-0.045) ng/ml Total Protein (6.4-8.2) gm/dl Albumin (3.4-5.0) gm/dl Globulin (2.5-4.0) gm/dl Albumin/Globulin Ratio (0.9-2) Procalcitonin < 0.05 (0-0.5) ng/ml 06/27/18 Range/Units 11:36 WBC (4.8-10.8) K/uL RBC (4.2-5.4) M/uL Hgb (12.0-16.0) g/dL Hct (37-47) % MCV (80-100) fL MCH (25-34) pg MCHC (32-36) g/dL RDW Std Deviation (36.4-46.3) fL RDW Coeff of Ivy (11.5-14.5) % Plt Count (130-400) K/uL MPV (7.4-10.4) fL Immature Gran % (Auto) % Neut % (Auto) % Lymph % (Auto) % Green % (Auto) % Eos % (Auto) % Baso % (Auto) % Immature Gran # (Auto) (0.00-0.02) K/uL Neut # (Auto) (1.4-6.5) K/uL Lymph # (Auto) (1.2-3.4) K/uL Green # (Auto) (0.11-0.59) K/uL Eos # (Auto) (0-0.5) K/uL Baso # (Auto) (0-0.2) K/uL PT (9.0-12.0) Seconds INR (0.9-1.1) APTT (21.0-31.0) Seconds PTT Ratio Sodium (136-145) mmol/L Potassium (3.5-5.1) mmol/L Chloride (98-107) mmol/L Carbon Dioxide (21-32) mmol/L Anion Gap (3-11) BUN (7-18) mg/dl Creatinine (0.6-1.2) mg/dl Est Cr Clr Drug Dosing ml/min Est GFR ( Amer) Est GFR (Non-Af Amer) BUN/Creatinine Ratio (10-20) Glucose (70-99) mg/dl POC Glucose 143 H (70-99) Calcium (8.5-10.1) mg/dl Magnesium (1.8-2.4) mg/dl Total Bilirubin (0.2-1) mg/dl AST (15-37) U/L ALT (12-78) U/L Alkaline Phosphatase (45-117) U/L Troponin I (0-0.045) ng/ml Total Protein (6.4-8.2) gm/dl Albumin (3.4-5.0) gm/dl Globulin (2.5-4.0) gm/dl Albumin/Globulin Ratio (0.9-2) Procalcitonin (0-0.5) ng/ml Imaging Data Radiologist's Impression: Radiology results as stated below per my review and the radiologist's interpretation: XR chest 1V portable CLINICAL HISTORY: sob dyspnea COMPARISON STUDY: 05/31/2018 FINDINGS: Mild increase in cardiac size. Stable postoperative changes to the t horacic spine. Slightly progressive left perihilar parenchymal infiltrate. Stable right upper lobe infiltrate. Diaphragms are smooth. IMPRESSION: Diffuse bilateral parenchymal infiltrates slightly progressive in the left perihilar region. The above report was generated using voice recognition software. It may contain grammatical, syntax or spelling errors. Electronically signed by: Manfred Noriega M.D. 06/26/2018 6:12 PM ECG Data Attestation: I personally reviewed and interpreted this ECG as follows: Indication: SOB/dyspnea Rate (beats per minute): 85 Rhythm: normal sinus Findings: + other (non specific ST change, old inferior infarct) Comparison ECG Date: from (05/31/18) Change: the following changes noted (non specific ST changes are slightly worse, criteria for inferior infarct is now present) Blood Pressure Blood Pressure Findings: Normal blood pressure Blood Pressure Disposition: did not require urgent referral MDM Narrative There is no leukocytosis or concerning anemia. No coagulopathy. No significant electrolyte abnormality, kidney failure or hepatitis. EKG shows a sinus rhythm, no acute ischemia. Cardiac enzyme testing x1 is not consistent with acute cardiac injury. Chest film shows bilateral lung congestion, worse on the left. The film today looks worse than previous films and there is concern for pneumonia. Blood cultures are pending. The patient was given a DuoNeb, IV Solu-Medrol and IV Zosyn. The patient is currently resting comfortably since being treated here in the ED. She has been doing poorly though at home. She has severe lung disease and I do think a hospital stay is warranted. I am concerned about a new pneumonia on top of her chronic lung findings/chronic lung disease. Certainly bronchitis is also consideration but pneumonia is of the greatest concern. I spoke to the patient, I talked with case management. The on-call hospitalist was consulted. Impression & Plan SOB (shortness of breath), Pneumonia, COPD exacerbation Discharge Plan Visit Data *Final* Discharge Date/Time: 06/26/18 21:34 Chief Complaint: Shortness of Breath/Dyspnea Stated Complaint: DIFFICULTY BREATHING EVEN W/BI PAP ED Provider: Hubert Raymundo Discharge Problem: SOB (shortness of breath), Pneumonia, COPD exacerbation Patient Disposition: Admitted As Inpatient Discharge Instructions Interventions: ED Discharge Assessment Last Done: 06/26/18 21:34 Discharge Problem: Pneumonia Qualifiers: Pneumonia type: due to unspecified organism Laterality: left Lung location: upper lobe of lung Qualified Code(s): J18.1 - Lobar pneumonia, unspecified organism The scribe's documentation has been prepared under my direction and personally reviewed by me in its entirety. I confirm that the note above accurately reflects all work, treatment, procedures, and medical decision making performed by me.
[2018-06-26] MEDS ORDERED: methylPREDNISolone 125 MG/2 ML VIAL ONE (21:01)
--- NOTE | 2018-06-26 21:07 | History & Physical Report ---
Date of Service June 26, 2018 Assessment & Plan (1) Chronic respiratory failure with hypoxia, on home O2 therapy: (2) COPD exacerbation: (3) Pneumonia: This is a 57-year-old female who has a significant past medical history of chronic hypoxic respiratory failure on 2 L of O2, pulmonary fibrosis, chronic interstitial lung disease, COPD, chronic pulmonary aspiration, esophageal dysmotility, esophageal diverticulum, GERD, orthostatic hypotension on midodrine, schizoaffective disorder, history of drug and alcohol abuse in remission, history of DVT, history of hep C who presents to [facility] secondary to shortness of breath x2 days. Upon arrival to ED pt noted she was saturating in 70s, EMS placed bipap with out improvement In ED chest x-ray revealed bilateral pulmonary infiltrates, slightly progressive in the left perihilar region. Her CBC and BMP was relatively unremarkable. Troponin WNL. She received nebulizer treatment, IV Solu-Medrol and IV Zosyn given her aspiration risk. Her breathing status improved but given her multiple lung comorbidities she was recommended for admission. Chronic resp failure with Home O2, ? acute component given patient history of saturating in 70s at home prior to arrival ? if CXR findings are consistent with infectious process vs progression of pulm fibrosis/ILD given no hx of reported cough, fever, normal WBC She does have notable hx of chronic aspiration admit to med/surg telemetry continue IV Zosyn given risk for aspiration IV solumedrol 40mg IV q8hr prn - re evaluate in a.m. for ability to transition to po prednisone Pulmonary toilet - Incentive spirometry, routine nebs continue O2 during day and bipap at HS check procalcitonin (4) Chronic pulmonary aspiration: aspiration precautions slippery diet recommendations per previous speech therapy discharge (5) Pulmonary fibrosis: tx as above (6) GERD (gastroesophageal reflux disease): continue PPI and [id number] (7) Orthostatic hypotension: continue midodrine (8) Chronic back pain: continue tylenol #3 prn (9) Schizophrenia: continue rexulti, buproprion, clozaril mood stable (10) Anxiety: continue clonazpam prn (11) Depression: continue escitalopram and buproprion mood stable (12) DVT prophylaxis: Lovenox Disposition: D/C to home when able Follow up: PCP Dr. Kia upon discharge Patient was seen and examined in collaboration with Dr. King, please see addendum Starting 06/27/18 pt will be under the care of Dr. Valladares History of Present Illness Chief Complaint: SOB x 2 days. Primary Care Provider: Naveed Adam MD This is a 57-year-old female who has a significant past medical history of chronic hypoxic respiratory failure on 2 L of O2, pulmonary fibrosis, chronic interstitial lung disease, COPD, chronic pulmonary aspiration, esophageal dysmotility, esophageal diverticulum, GERD, orthostatic hypotension on midodrine, schizoaffective disorder, history of drug and alcohol abuse in remission, history of DVT, history of hep C who presents to [facility] secondary to shortness of breath x2 days. Over the past 48 hours she has noted increased dyspnea on exertion. This afternoon she developed sudden onset of shortness of breath, "I got scared so I called EMS." Further elicits to chills and nausea. She denies any coughing or sputum production, fever, sweats, lightheadedness, dizziness, chest pain, palpitations, hemoptysis, emesis, diarrhea, abdominal pain, change in bowel or urinary habits. She denies any lower extremity edema, weight gain or loss. Her appetite has been normal. Patient does take Trelegy once daily as well as nebulizers 3 times a day. She states "when I get short of breath I get scared and I hate always having to come to the hospital. I want to stay out of the hospital." In ED chest x-ray revealed bilateral pulmonary infiltrates, slightly progressive in the left perihilar region. Her CBC and BMP was relatively unremarkable. Troponin WNL. She received nebulizer treatment, IV Solu-Medrol and IV Zosyn given her aspiration risk. Her breathing status improved but given her multiple lung comorbidities she was recommended for admission. Allergies Allergy/AdvReac Type Severity Reaction Status Date / Time hydroxyzine Allergy Unknown UNKNOWN Verified 06/26/18 18:46 fluphenazine AdvReac Intermediate confusion Verified 06/26/18 18:46 haloperidol AdvReac Intermediate "MAKES ME Verified 06/26/18 18:46 GO INTO BLACKOUT" hydrocodone AdvReac Intermediate DROWSY Verified 06/26/18 18:46 molindone AdvReac Intermediate PT FEELS Verified 06/26/18 18:46 LIKE SHES "JUMPING OUT OF HER SKIN" morphine AdvReac Intermediate DROWSY Verified 06/26/18 18:46 lithium AdvReac Mild "LEVEL CAN Verified 06/26/18 18:46 GET TOO HIGH" Home Medications Home Medications Medication Instructions Recorded Confirmed Type acetaminophen [Tylenol Extra 500 mg PO QID PRN MDD 2 GRAM/24 12/27/17 06/26/18 History Strength] HOURS albuterol sulfate 2.5 mg INHALATION TID 12/27/17 06/26/18 History albuterol sulfate [Ventolin HFA] 2 puff INHALATION QID PRN 12/27/17 06/26/18 History bupropion HCl 100 mg PO BID 12/27/17 06/26/18 History calcitonin (salmon) 1 spray INTRANASAL QAM 12/27/17 06/26/18 History clozapine [Clozaril] 100 mg PO BID 12/27/17 06/26/18 History diclofenac sodium [Voltaren] 4 g TOPICAL QID PRN 12/27/17 06/26/18 History escitalopram oxalate [Lexapro] 20 mg PO QAM 12/27/17 06/26/18 History famotidine [Pepcid] 20 mg PO BID 12/27/17 06/26/18 History fenofibrate nanocrystallized 48 mg PO QAM 12/27/17 06/26/18 History [Tricor] ferrous sulfate [FerrouSul] 325 mg PO BIDM 12/27/17 06/26/18 History fluticasone propionate [Flonase 2 spray INTRANASAL QAM 12/27/17 06/26/18 History Allergy Relief] folic acid 1 mg PO QAM 12/27/17 06/26/18 History gabapentin [Neurontin] 300 mg PO TIDM 12/27/17 06/26/18 History ipratropium bromide 0.5 mg INHALATION TID 12/27/17 06/26/18 History midodrine 10 mg PO TIDM 12/27/17 06/26/18 History montelukast [Singulair] 10 mg PO HS 12/27/17 06/26/18 History multivitamin with minerals [Daily 1 tab PO QAM 12/27/17 06/26/18 History Multivitamin-Minerals] Trelegy Ellipta 1 inh INHALATION QAM 02/18/18 06/26/18 History calcium-vitamin D3-vitamin K 1 tab PO BID 02/18/18 06/26/18 History [Viactiv] clonazepam 0.25 mg PO TID PRN 02/18/18 06/26/18 History pantoprazole [Protonix] 40 mg PO BIDM 02/18/18 06/26/18 History magnesium hydroxide [Milk of 15 ml PO HS PRN 03/02/18 06/26/18 History Magnesia] benzonatate [Tessalon Perles] 100 mg PO TID PRN #15 cap 04/28/18 06/26/18 Rx zoledronic fpgw-ukkcnhji-hkmyp 5 mg IV YEARLY 04/28/18 06/26/18 History [Reclast] albuterol sulfate 2.5 mg DAILY 06/21/18 06/26/18 History acetaminophen-codeine 1 tab PO Q8 PRN 06/26/18 06/26/18 History brexpiprazole [Rexulti] 3 mg PO QAM 06/26/18 06/26/18 History Past Med/Surg History Medical History Chronic respiratory failure with hypoxia, on home O2 therapy On home oxygen therapy 2L during day; 3L N/C @ HS GERD (gastroesophageal reflux disease) Spinal stenosis Osteoarthritis History of anesthesia reaction did not receive enough anesthesia during a colonoscopy and felt everything Asthma COPD (chronic obstructive pulmonary disease) Schizophrenia Chronic back pain GERD (gastroesophageal reflux disease) DVT prophylaxis Arthritis Aspiration pneumonia (11/26/10) COPD (chronic obstructive pulmonary disease) Chronic back pain Chronic hepatitis C (Unknown) Chronic obstructive lung disease (Unknown) Chronic paranoid schizophrenia (Unknown) Contusion of head DVT (deep venous thrombosis) right leg--no blood thinners Dyspnea Hypotension Interstitial lung disease Mood disorder Osteoporosis (Unknown) Respiratory failure, [id number] SOB (shortness of breath) Schizoaffective disorder (Unknown) Seizure (11/26/10) one time issue, related to a medication Urinary retention with incomplete bladder emptying Surgical History History of tooth extraction all teeth removed History of total abdominal hysterectomy and bilateral salpingo-oophorectomy History of colonoscopy History of open reduction and internal fixation (ORIF) procedure left femur--rods in place History of bilateral tubal ligation History of vascular access device Aport on right side History of thoracic spinal fusion fusion and decompression t6-t12 S/P ORIF (open reduction internal fixation) fracture right femur--rods in place S/P tonsillectomy Family History Grandmother (Paternal) Family hx of colon cancer Social History Preferred Language: Afghan Communication Ability: Effective Visual Impairment: No Limitations Beliefs That Will Affect Care: None Current Living Situation: Parent and Family Current Living Situation Comment: Pt. lives with mother and sister. Other Information That Helps Us Care for You: No Feels Safe at Home: Yes Safety Concerns: Feels Safe At This Time Smoking Status: Former smoker Tobacco Type: cigarettes Second Hand Exposure: No Hx Alcohol Use: Yes Hx Substance Use: Yes substance use type: former substance user, marijuana, crack/cocaine and heroin Substance Use Type Other:: No longer Review of Systems Review of Systems: As noted per HPI, 10 systems reviewed and negative unless noted above. Physical Exam Physical Exam: Gen: WD/WN, F, Appears older than stated age, chronic ill appearing, NAD, sitting up in bed, pleasant, conversing easily Head: Normocephalic, Atraumatic Eyes: Sclera normal, no conjunctival injection, Pupils pinpoint, ERRLA, EOMI ENT: Gross hearing intact, normal pharynx, mucous membranes moist, dentition absent Neck: supple, no adenopathy, No JVD, no bruit, Resp: Diminished breath sounds throughout with bilateral crackles L > R, L expiratory wheeze noted, no rhonci. Normal insp/exp effort, no accessory muscle use. On 2L O2 via NC CV: Regular rate, regular rhythm, no murmur, rub, gallop, or ectopy Abd: +BS x 4, soft, nontender, nondistended Musculoskeletal: moves extremities active rom x 4, strength intact, good transport aide strength Extremities: trace edema bilaterally Skin: warm, moist, no rash, negative turgor, cap refill < 2sec Neuro: Alert and oriented x 3, speech normal, good mood/affect, cran nerve 2-12 intact grossly : deferred Results & Data Vital Signs (Past 12 Hours) Vital Signs Temp Pulse Resp BP Pulse Ox 06/26/18 20:07 96 06/26/18 18:00 94 06/26/18 17:37 36.6 C 93 H 18 112/74 92 Laboratory Results Short CBC 06/26/18 Range/Units 19:12 WBC 8.30 (4.8-10.8) K/uL Hgb 13.4 (12.0-16.0) g/dL Hct 40.9 (37-47) % Plt Count 162 (130-400) K/uL BMP 06/26/18 19:12 Sodium 140 Potassium 4.1 Chloride 108 H Carbon Dioxide 26 BUN 18 Creatinine 0.79 Glucose 111 H Calcium 9.2 Cardiac Enzymes 06/26/18 Range/Units 19:12 Troponin I < 0.015 (0-0.045) ng/ml Liver Function 06/26/18 Range/Units 19:12 Total Bilirubin 0.3 (0.2-1) mg/dl AST 36 (15-37) U/L ALT 34 (12-78) U/L Alkaline Phosphatase 74 (45-117) U/L Albumin 3.4 (3.4-5.0) gm/dl Diagnostic Findings CXR: IMPRESSION: Diffuse bilateral parenchymal infiltrates slightly progressive in the left perihilar region. Medications Administered Discontinued Medications Albuterol (Duoneb) 3 ml INH NOW STA Stop: 06/26/18 18:01 Last Admin: 06/26/18 18:48 Dose: 3 ml Documented by: [id number] Methylprednisolone 60 mg/ (Syringe) 1.96 mls @ 1.5 mls/min IV NOW STA Stop: 06/26/18 20:11 Last Admin: 06/26/18 21:03 Dose: 1.5 mls/min Documented by: [id number] Methylprednisolone (Solumedrol) Confirm Administered Dose 125 mg .ROUTE .STK-MED ONE Stop: 06/26/18 21:02 Last Admin: 06/26/18 21:03 Dose: Not Given Documented by: [id number] ECG Rate (beats per minute): 85 Rhythm: normal sinus Code Status & VTE Plan Code Status Full Code VTE Prophylaxis Plan VTE Prophylaxis will be ordered: Yes Supervising Physician Co-Signing Physician Notes Care coordinated with Rae UNGER Agree with above note. Patient seen and examined. Please refer to her notes for full details. Vital signs reviewed. Physical exam: General exam: Alert and oriented. Not in acute distress. CVS: S1 and S2 heard, regular rate and rhythm, no murmurs. RS: Clear to auscultation, no wheezing or crackles. ABD: Soft, bowel sounds present, nontender, no distention. PROGRAMMER ANALYST: Nonfocal. EXT: No edema, no erythema. Labs: Reviewed. Assessment and plan: Sob Hypoxia/ Acute on chronic resp failure? Patient sasy her oxygen sats were in 70's at home EMS tried to place her on bipap but in ER she is back to her baseline CXT b/l diffuse parenchymal infiltrates with increase in left hilar region aspiration risk- not following speech recommendations? empirically starting on iv solumedrol, zosyn and nebs if deteriorates will consult pulmonary. close monitor Schizophrenia continue home meds Other diagnosis and plan of care as per Rae Phan PA-C. Ramon dodd MD.
[2018-06-26] MEDS ORDERED: MAGNESIUM HYDROXIDE SUSP 30 ML UDC PO PRN (22:09)
[2018-06-26] MEDS ORDERED: GLUCOSE 10 TABS/TUBE PO PRN (22:09)
[2018-06-26] MEDS ORDERED: CARBOHYDRATES FOR HYPOGLYCEMIA PO PRN (22:09)
[2018-06-26] MEDS ORDERED: DEXTROSE 50% 50 ML SYRINGE IV PRN (22:09)
[2018-06-26] MEDS ORDERED: PIPERACILL/TAZOBAC CONSULT ACTIVE PRN (22:09)
[2018-06-26] MEDS ORDERED: ALUMINUM/MAGNESIUM SUSP 30 ML UDC PO PRN (22:09)
[2018-06-26] MEDS ORDERED: BENZONATATE 100 MG CAPSULE PO PRN (22:09)
[2018-06-26] MEDS ORDERED: ACETAMINOPHEN 325 MG TAB PO PRN (22:09)
[2018-06-26] MEDS ORDERED: GLUCAGON FOR INJ 1 MG VIAL SQ PRN (22:09)
[2018-06-26] MEDS ORDERED: GLUCOSE 40% GEL 15 GM TUBE PO PRN (22:09)
[2018-06-26] MEDS ORDERED: POLYETHYLENE (MIRALAX) 17 GM PACK PO PRN (22:09)
[2018-06-26] MEDS ORDERED: ONDANSETRON INJ 2 MG/ML 2 ML VIAL IV PRN (22:09)
[2018-06-26] MEDS ORDERED: SODIUM CHLORIDE 0.9% 1000ML 1,000 ML IV SCH (22:30)
[2018-06-26] MEDS: ALBUT/IPRATROP 3MG/0.5MG NEB 3 ML VIAL NEB SCH (22:57)
[2018-06-26] MEDS: cloZAPine 100 MG TAB PO SCH (23:53)
[2018-06-26] MEDS: FAMOTIDINE 20 MG TAB PO SCH (23:54)
[2018-06-26] MEDS: MONTELUKAST SODIUM 10 MG TABLET PO SCH (23:54)
[2018-06-26] MEDS: ENOXAPARIN INJ 40 MG/0.4 ML SYR SQ SCH (23:56)
[2018-06-27] MEDS: ALBUT/IPRATROP 3MG/0.5MG NEB 3 ML VIAL NEB SCH ×6 (03:33→23:16)
[2018-06-27] MEDS: PIPERACILLIN/TAZOBACTAM 4.5 GM in DEXTROSE 5% 100 ML IV SCH ×2 (04:29→11:22)
[2018-06-27] MEDS: methylPREDNISolone 40 MG in SYRINGE 0 ML IV SCH ×3 (04:30→20:12)
[2018-06-27] MEDS: FERROUS SULFATE 325 MG TAB PO SCH ×2 (08:39→16:23)
[2018-06-27] MEDS: GABAPENTIN 300 MG CAP PO SCH ×3 (08:40→16:22)
[2018-06-27] MEDS: MIDODRINE HCL 10 MG TAB PO SCH ×3 (08:40→16:23)
[2018-06-27] MEDS: cloZAPine 100 MG TAB PO SCH ×2 (08:41→20:14)
[2018-06-27] MEDS: PANTOprazole 40 MG TAB PO SCH ×2 (08:41→16:22)
[2018-06-27] MEDS: FENOFIBRATE NANOCRYSTALLIZED 48 MG TABLET PO SCH (08:41)
[2018-06-27] MEDS: FOLIC ACID 1 MG TAB PO SCH (08:42)
[2018-06-27] MEDS: FLUTICASONE PROPIONATE NA SPR 16 GM BTL SCH (08:42)
[2018-06-27] MEDS: MULTIVITAMIN TAB PO SCH (08:43)
[2018-06-27] MEDS: CALCITONIN SALMON NA 200 IU/AC 3.7 ML BTL SCH (08:43)
[2018-06-27] MEDS: ESCITALOPRAM OXALATE 20 MG TAB PO SCH (08:43)
[2018-06-27] MEDS: buPROPion HCl 100 MG TABLET PO SCH ×2 (08:44→16:23)
[2018-06-27] MEDS: FAMOTIDINE 20 MG TAB PO SCH ×2 (08:44→22:03)
[2018-06-27] MEDS: ACETAMINOPHEN W/CODEINE #3 1 TAB PO PRN ×2 (11:13→20:11)
[2018-06-27] MEDS: clonazePAM 0.5 MG TAB PO PRN ×2 (13:29→23:40)
[2018-06-27] MEDS ORDERED: HEPARIN 100 UNIT/ML 5ML FLUSH ONE (15:12)
--- NOTE | 2018-06-27 17:45 | Hospitalist Progress Note ---
Date of Service June 27, 2018 Assessment & Plan (1) Chronic respiratory failure with hypoxia, on home O2 therapy: hx of chronic hypoxic respiratory failure on home 02 2L /interstitial lung disease /advanced COPD /pulmonary fibrosis presented with worsening of SOB /LOCKETT for past few days in ER pt was hypoxic in spo02 70% , required Bipap respiratory status improved after Neb tx /Iv Solu Medrol still reports of Dypnea on exertion , SOB with minimum activity will consult pulmonology (2) COPD exacerbation: (3) Pneumonia: This is a 57-year-old female who has a significant past medical history of chronic hypoxic respiratory failure on 2 L of O2, pulmonary fibrosis, chronic interstitial lung disease, COPD, chronic pulmonary aspiration, esophageal dysmotility, esophageal diverticulum, GERD, orthostatic hypotension on midodrine, schizoaffective disorder, history of drug and alcohol abuse in remission, history of DVT, history of hep C who presents to [facility] secondary to shortness of breath x2 days. Upon arrival to ED pt noted she was saturating in 70s, EMS placed bipap with out improvement In ED chest x-ray revealed bilateral pulmonary infiltrates, slightly progressive in the left perihilar region. Her CBC and BMP was relatively unremarkable. Troponin WNL. ? if CXR findings are consistent with infectious process vs progression of pulm fibrosis/ILD given no hx of reported cough, fever, normal WBC She does have notable hx of chronic aspiration ordered for IV Zosyn given risk for aspiration no cough , pt is afebrile , white count remains normal no sign of aspiration , coughing during meals noted Will D/c IV Zosyn/order for PO Doxycycline (4) Chronic pulmonary aspiration: aspiration precautions slippery diet recommendations per previous speech therapy discharge no overt s/s of aspiration noted on floor IV zosyn s/rashard PO Doxycycline (5) Pulmonary fibrosis: tx as above (6) GERD (gastroesophageal reflux disease): continue PPI and [id number] (7) Orthostatic hypotension: continue midodrine (8) Chronic back pain: continue tylenol #3 prn (9) Schizophrenia: continue rexulti, buproprion, clozaril mood stable (10) Anxiety: continue clonazpam prn (11) Depression: continue escitalopram and buproprion mood stable (12) DVT prophylaxis: Lovenox Disposition: lives at home PT/OT eval prior to discharge home Follow up: PCP Dr. Adam upon discharge Subjective pt mentions breathing /sob a bit better than yesterday still does not feel like herself no fever or chills no cough no audible wheeze Physical Exam Constitutional: WD/WN, vitals as above no acute distress Eyes: PERRL, conjunctivae normal, anicteric sclerae ENMT: external ear and nose normal, oropharynx normal Neck: trachea midline, no thyromegaly Respiratory: Auscultation: + diminished lung sounds and + wheezes (faint wheeze in upper lung area ); no rales Cardiovascular: RRR, no murmur, no edema Gastrointestinal (Abdomen): normal bowel sounds, soft, nontender, no hepatosplenomegaly Musculoskeletal: no cyanosis or clubbing, extremities motor strength 5/5 Skin: no rashes, warm and dry Neurologic: PERRL, EOMI, accommodation nl, no face palsy, no dysarthria Psychiatric: A+Ox3, euthymic affect Results & Data Vital Signs (Past 12 Hours) Vital Signs CXR: IMPRESSION: Diffuse bilateral parenchymal infiltrates slightly progressive in the left perihilar region. Temp Pulse Pulse Resp BP Pulse Ox 06/27/18 15:08 36.7 C 86 22 142/89 H 95 06/27/18 15:00 90 06/27/18 14:00 97 06/27/18 11:29 84 18 96 06/27/18 11:23 36.4 C L 87 20 134/86 95 06/27/18 08:00 90 06/27/18 07:56 85 20 96 06/27/18 07:38 36.8 C 88 20 128/84 97
[2018-06-27] MEDS: MONTELUKAST SODIUM 10 MG TABLET PO SCH (20:14)
[2018-06-27] MEDS: DOXYCYCLINE HYCLATE 100 MG CAP PO SCH (22:03)
[2018-06-27] MEDS: ENOXAPARIN INJ 40 MG/0.4 ML SYR SQ SCH (22:04)
[2018-06-28] MEDS ORDERED: MoRPHine SULFATE 4 MG/ML 1 ML CARP\\VIAL IV STA (02:39)
[2018-06-28] MEDS: HEPARIN 100 UNIT/ML 5ML FLUSH FLUSH PRN (03:09)
[2018-06-28] MEDS: ALBUT/IPRATROP 3MG/0.5MG NEB 3 ML VIAL NEB SCH ×6 (03:35→23:15)
[2018-06-28] MEDS: FAMOTIDINE 20 MG TAB PO SCH ×2 (08:57→20:47)
[2018-06-28] MEDS: MIDODRINE HCL 10 MG TAB PO SCH ×3 (08:58→17:05)
[2018-06-28] MEDS: FENOFIBRATE NANOCRYSTALLIZED 48 MG TABLET PO SCH (08:58)
[2018-06-28] MEDS: ESCITALOPRAM OXALATE 20 MG TAB PO SCH (08:58)
[2018-06-28] MEDS: GABAPENTIN 300 MG CAP PO SCH ×3 (08:58→17:05)
[2018-06-28] MEDS: DOXYCYCLINE HYCLATE 100 MG CAP PO SCH ×2 (08:58→20:47)
[2018-06-28] MEDS: FERROUS SULFATE 325 MG TAB PO SCH ×2 (08:59→17:05)
[2018-06-28] MEDS: PANTOprazole 40 MG TAB PO SCH ×2 (08:59→17:05)
[2018-06-28] MEDS: FOLIC ACID 1 MG TAB PO SCH (08:59)
[2018-06-28] MEDS: buPROPion HCl 100 MG TABLET PO SCH ×2 (08:59→17:04)
[2018-06-28] MEDS: cloZAPine 100 MG TAB PO SCH ×2 (08:59→20:47)
[2018-06-28] MEDS: MULTIVITAMIN TAB PO SCH (08:59)
[2018-06-28] MEDS: FLUTICASONE PROPIONATE NA SPR 16 GM BTL SCH (09:00)
[2018-06-28] MEDS ORDERED: methylPREDNISolone 40 MG in SYRINGE 0 ML IV SCH (09:00)
[2018-06-28] MEDS: CALCITONIN SALMON NA 200 IU/AC 3.7 ML BTL SCH (09:00)
[2018-06-28] MEDS: BREXPIPRAZOLE PO SCH (09:01)
[2018-06-28] MEDS: FLUTICASONE/UMECLIDIN/VILANTER INH SCH (09:02)
[2018-06-28] MEDS: ACETAMINOPHEN W/CODEINE #3 1 TAB PO PRN ×2 (09:08→17:03)
--- NOTE | 2018-06-28 12:42 | Pulmonary Consultation ---
Date of Consultation June 28, 2018 Assessment & Plan (1) Pulmonary fibrosis: acute exacerbation of pulmonary fibrosis. ?cause. in prior notes was concern for chronic aspiration continue albuterol, trelogy steroids for 5-7 days depending on response continue aggressive treatment of GERD with famotidine and pantoprazole unclear if new infection CXR finding likely chronic recorded history of COPD unsure if this is true COPD unsure if prior PFTs OOB as much as able History of Present Illness Attending Physician: Vanessa Dick MD History of Present Illness 57 y/o female with a history of schizophrenia, pulmonary fibrosis, chronic aspiration, GERD who presents with shortness of breath and cough for 2 days. This is similar to prior episodes of shortness of breath. denies fevers or chills. Her history is not reliable and she tells me some conflicting information. She says that she feels slightly better since admission. Allergies Allergy/AdvReac Type Severity Reaction Status Date / Time hydroxyzine Allergy Unknown UNKNOWN Verified 06/26/18 18:46 fluphenazine AdvReac Intermediate confusion Verified 06/26/18 18:46 haloperidol AdvReac Intermediate "MAKES ME Verified 06/26/18 18:46 GO INTO BLACKOUT" hydrocodone AdvReac Intermediate DROWSY Verified 06/26/18 18:46 molindone AdvReac Intermediate PT FEELS Verified 06/26/18 18:46 LIKE SHES "JUMPING OUT OF HER SKIN" morphine AdvReac Intermediate DROWSY Verified 06/26/18 18:46 lithium AdvReac Mild "LEVEL CAN Verified 06/26/18 18:46 GET TOO HIGH" Home Medications Home Medications Medication Instructions Recorded Confirmed Type acetaminophen [Tylenol Extra 500 mg PO QID PRN MDD 2 GRAM/24 12/27/17 06/26/18 History Strength] HOURS albuterol sulfate 2.5 mg INHALATION TID 12/27/17 06/26/18 History albuterol sulfate [Ventolin HFA] 2 puff INHALATION QID PRN 12/27/17 06/26/18 History bupropion HCl 100 mg PO BID 12/27/17 06/26/18 History calcitonin (salmon) 1 spray INTRANASAL QAM 12/27/17 06/26/18 History clozapine [Clozaril] 100 mg PO BID 12/27/17 06/26/18 History diclofenac sodium [Voltaren] 4 g TOPICAL QID PRN 12/27/17 06/26/18 History escitalopram oxalate [Lexapro] 20 mg PO QAM 12/27/17 06/26/18 History famotidine [Pepcid] 20 mg PO BID 12/27/17 06/26/18 History fenofibrate nanocrystallized 48 mg PO QAM 12/27/17 06/26/18 History [Tricor] ferrous sulfate [FerrouSul] 325 mg PO BIDM 12/27/17 06/26/18 History fluticasone propionate [Flonase 2 spray INTRANASAL QAM 12/27/17 06/26/18 History Allergy Relief] folic acid 1 mg PO QAM 12/27/17 06/26/18 History gabapentin [Neurontin] 300 mg PO TIDM 12/27/17 06/26/18 History ipratropium bromide 0.5 mg INHALATION TID 12/27/17 06/26/18 History midodrine 10 mg PO TIDM 12/27/17 06/26/18 History montelukast [Singulair] 10 mg PO HS 12/27/17 06/26/18 History multivitamin with minerals [Daily 1 tab PO QAM 12/27/17 06/26/18 History Multivitamin-Minerals] Trelegy Ellipta 1 inh INHALATION QAM 02/18/18 06/26/18 History calcium-vitamin D3-vitamin K 1 tab PO BID 02/18/18 06/26/18 History [Viactiv] clonazepam 0.25 mg PO TID PRN 02/18/18 06/26/18 History pantoprazole [Protonix] 40 mg PO BIDM 02/18/18 06/26/18 History magnesium hydroxide [Milk of 15 ml PO HS PRN 03/02/18 06/26/18 History Magnesia] benzonatate [Tessalon Perles] 100 mg PO TID PRN #15 cap 04/28/18 06/26/18 Rx zoledronic aiys-yllivbdo-ctjha 5 mg IV YEARLY 04/28/18 06/26/18 History [Reclast] albuterol sulfate 2.5 mg DAILY 06/21/18 06/26/18 History acetaminophen-codeine 1 tab PO Q8 PRN 06/26/18 06/26/18 History brexpiprazole [Rexulti] 3 mg PO QAM 06/26/18 06/26/18 History Patient History Medical History Chronic respiratory failure with hypoxia, on home O2 therapy (Acute) On home oxygen therapy 2L during day; 3L N/C @ HS GERD (gastroesophageal reflux disease) Spinal stenosis Osteoarthritis History of anesthesia reaction did not receive enough anesthesia during a colonoscopy and felt everything Asthma COPD (chronic obstructive pulmonary disease) Schizophrenia Chronic back pain GERD (gastroesophageal reflux disease) DVT prophylaxis Arthritis Aspiration pneumonia (11/26/10) COPD (chronic obstructive pulmonary disease) Chronic back pain Chronic hepatitis C (Unknown) Chronic obstructive lung disease (Unknown) Chronic paranoid schizophrenia (Unknown) Contusion of head DVT (deep venous thrombosis) right leg--no blood thinners Dyspnea Hypotension Interstitial lung disease Mood disorder Osteoporosis (Unknown) Respiratory failure, [id number] SOB (shortness of breath) Schizoaffective disorder (Unknown) Seizure (11/26/10) one time issue, related to a medication Urinary retention with incomplete bladder emptying Surgical History History of tooth extraction all teeth removed History of total abdominal hysterectomy and bilateral salpingo-oophorectomy History of colonoscopy History of open reduction and internal fixation (ORIF) procedure left femur--rods in place History of bilateral tubal ligation History of vascular access device Aport on right side History of thoracic spinal fusion fusion and decompression t6-t12 S/P ORIF (open reduction internal fixation) fracture right femur--rods in place S/P tonsillectomy Family History Grandmother (Paternal) Family hx of colon cancer Social History Preferred Language: Cameroonian Communication Ability: Effective Visual Impairment: No Limitations Beliefs That Will Affect Care: None Current Living Situation: Parent and Family Current Living Situation Comment: Pt. lives with mother and sister. Other Information That Helps Us Care for You: No Feels Safe at Home: Yes Safety Concerns: Feels Safe At This Time Smoking Status: Former smoker Tobacco Type: cigarettes Second Hand Exposure: No Hx Alcohol Use: Yes Hx Substance Use: Yes substance use type: former substance user, marijuana, crack/cocaine and heroin Substance Use Type Other:: No longer Review of Systems Review of Systems: unsure reliability of history Constitutional: no fevers no chills no weight loss Eyes: no blurry or double vision EENT: no sore throat, no congestion Respiratory: + cough + shortness of breath Cardiovascular: no chest pain no palpitations GI: no abdominal pain, no nausea, no vomiting, no diarrhea, no constipation Gu: no dysuria, no frequency MSK: no joint pain, no muscle aches Skin: no rash Neuro: no headache, no dizziness, no focal weakness Endocrine: no heat or cold intolerance Physical Exam Physical Exam: Constitutional: Comfortable NAD HEENT: normocephalic atraumatic. MMM. no cervical lymphadenopathy CV: RRR nl s1,s2 no murmurs rubs or gallops Lungs: wheezing and crackles bilaterally. no accessory muscle use Abd: soft nontender nondistended. normal bowel sounds Ext: no edema. no cyanosis, no clubbing Skin: warm dry Neuro: alert and oriented. moving all extremities Psych: normal mood and affect Results & Data Vital Signs (Past 12 Hours) Vital Signs Temp Pulse Resp BP Pulse Ox 06/28/18 11:16 93 H 18 95 06/28/18 11:12 36.3 C L 74 18 122/74 97 06/28/18 10:06 92 06/28/18 07:32 37.0 C 110 H 20 112/60 97 06/28/18 07:09 94 H 20 98 06/28/18 04:00 36.2 C L 99 H 20 102/66 94 06/28/18 03:35 112 H 20 97 Laboratory Results Laboratory Results - last 24 hr 06/27/18 06/27/18 06/28/18 16:21 20:08 07:35 POC Glucose 140 H 160 H 106 H 06/28/18 11:44 POC Glucose 111 H Diagnostic Findings reviewed CXR and prior CT chest
[2018-06-28] MEDS: clonazePAM 0.5 MG TAB PO PRN ×2 (13:55→22:26)
--- NOTE | 2018-06-28 15:14 | Hospitalist Progress Note ---
Date of Service June 28, 2018 Assessment & Plan (1) Chronic respiratory failure with hypoxia, on home O2 therapy: Respiratory status improved to approximate baseline, appreciate input from pulmonology hx of chronic hypoxic respiratory failure on home 02 2L /interstitial lung disease /advanced COPD /pulmonary fibrosis presented with worsening of SOB /LOCKETT for past few days in ER pt was hypoxic in spo02 70% , required Bipap respiratory status improved after Neb tx /Iv Solu Medrol CT chest shows progression of pulmonary fibrosis, Solu-Medrol changed to p.o. prednisone, per pulmonology recommends prolonged taper then to continue with chronic low-dose prednisone to prevent flare of r espiratory failure (2) COPD exacerbation: Improved symptomatically IV Solu-Medrol changed to p.o. prednisone (3) Pneumonia: This is a 57-year-old female who has a significant past medical history of chronic hypoxic respiratory failure on 2 L of O2, pulmonary fibrosis, chronic interstitial lung disease, COPD, chronic pulmonary aspiration, esophageal dysmotility, esophageal diverticulum, GERD, orthostatic hypotension on midodrine, schizoaffective disorder, history of drug and alcohol abuse in remission, history of DVT, history of hep C who presents to [facility] secondary to shortness of breath x2 days. Upon arrival to ED pt noted she was saturating in 70s, EMS placed bipap with out improvement In ED chest x-ray revealed bilateral pulmonary infiltrates, slightly progressive in the left perihilar region. Her CBC and BMP was relatively unremarkable. Troponin WNL. ? if CXR findings are consistent with infectious process vs progression of pulm fibrosis/ILD given no hx of reported cough, fever, normal WBC IV antibiotic changed to p.o. doxycycline, complete total 5 days course (4) Chronic pulmonary aspiration: aspiration precautions slippery diet recommendations per previous speech therapy discharge no overt s/s of aspiration noted IV zosyn s/rashard PO Doxycycline (5) Pulmonary fibrosis: tx as above (6) GERD (gastroesophageal reflux disease): continue PPI and [id number] (7) Orthostatic hypotension: continue midodrine (8) Chronic back pain: continue tylenol #3 prn (9) Schizophrenia: continue rexulti, buproprion, clozaril mood stable (10) Anxiety: continue clonazpam prn (11) Depression: continue escitalopram and buproprion mood stable (12) DVT prophylaxis: Lovenox Disposition: lives at home PT/OT eval appreciated, stable to be returned home. Patient is already established with [facility] at home Plan for discharge home tomorrow afternoon Sister Peyton given update over the phone Follow up: PCP Dr. Adam upon discharge Subjective Patient sitting on chair, breathing improved, no cough, no audible wheeze Did well with physical therapy occupational therapy, stable to return home, as patient is approximately at her baseline functional status Afebrile Appreciate input from pulmonology Patient feels much improved since admission, Wants to be discharged home tomorrow afternoon Review of Systems Review of Systems: All systems reviewed & are unremarkable except as noted in HPI & below Physical Exam Constitutional: WD/WN, vitals as above no acute distress Eyes: PERRL, conjunctivae normal, anicteric sclerae ENMT: external ear and nose normal, oropharynx normal Neck: trachea midline, no thyromegaly Respiratory: Auscultation: + diminished lung sounds; no rales and no wheezes Cardiovascular: RRR, no murmur, no edema Gastrointestinal (Abdomen): normal bowel sounds, soft, nontender, no hepatosplenomegaly Musculoskeletal: no cyanosis or clubbing, extremities motor strength 5/5 Skin: no rashes, warm and dry Neurologic: PERRL, EOMI, accommodation nl, no face palsy, no dysarthria Psychiatric: A+Ox3, euthymic affect Results & Data Vital Signs (Past 12 Hours) Vital Signs Temp Pulse Resp BP Pulse Ox 06/28/18 11:16 93 H 18 95 06/28/18 11:12 36.3 C L 74 18 122/74 97 06/28/18 10:06 92 06/28/18 07:32 37.0 C 110 H 20 112/60 97 06/28/18 07:09 94 H 20 98 06/28/18 04:00 36.2 C L 99 H 20 102/66 94 06/28/18 03:35 112 H 20 97
[2018-06-28] MEDS: ENOXAPARIN INJ 40 MG/0.4 ML SYR SQ SCH (20:48)
[2018-06-28] MEDS: MONTELUKAST SODIUM 10 MG TABLET PO SCH (20:48)
[2018-06-29] MEDS: ALBUT/IPRATROP 3MG/0.5MG NEB 3 ML VIAL NEB SCH ×2 (03:19→07:08)
[2018-06-29] MEDS: ESCITALOPRAM OXALATE 20 MG TAB PO SCH (08:27)
[2018-06-29] MEDS: buPROPion HCl 100 MG TABLET PO SCH (08:27)
[2018-06-29] MEDS: FENOFIBRATE NANOCRYSTALLIZED 48 MG TABLET PO SCH (08:27)
[2018-06-29] MEDS: FLUTICASONE/UMECLIDIN/VILANTER INH SCH (08:27)
[2018-06-29] MEDS: FAMOTIDINE 20 MG TAB PO SCH (08:27)
[2018-06-29] MEDS: BREXPIPRAZOLE PO SCH (08:27)
[2018-06-29] MEDS: FOLIC ACID 1 MG TAB PO SCH (08:27)
[2018-06-29] MEDS: DOXYCYCLINE HYCLATE 100 MG CAP PO SCH (08:28)
[2018-06-29] MEDS: CALCITONIN SALMON NA 200 IU/AC 3.7 ML BTL SCH (08:28)
[2018-06-29] MEDS: cloZAPine 100 MG TAB PO SCH (08:28)
[2018-06-29] MEDS: MIDODRINE HCL 10 MG TAB PO SCH ×2 (08:28→12:26)
[2018-06-29] MEDS: FLUTICASONE PROPIONATE NA SPR 16 GM BTL SCH (08:28)
[2018-06-29] MEDS: GABAPENTIN 300 MG CAP PO SCH ×2 (08:28→12:26)
[2018-06-29] MEDS: FERROUS SULFATE 325 MG TAB PO SCH (08:35)
[2018-06-29] MEDS: PANTOprazole 40 MG TAB PO SCH (08:36)
[2018-06-29] MEDS: MULTIVITAMIN TAB PO SCH (08:36)
[2018-06-29] MEDS ORDERED: predniSONE 20 MG TAB PO SCH (09:00)
[2018-06-29] MEDS: ACETAMINOPHEN W/CODEINE #3 1 TAB PO PRN (09:30)
[2018-06-29] MEDS ORDERED: ALBUTEROL 0.083% NEBU SOLN 3 ML VIAL NEB PRN (09:49)
[2018-06-29] MEDS: clonazePAM 0.5 MG TAB PO PRN (10:15)
[2018-06-29] MEDS: HEPARIN 100 UNIT/ML 5ML FLUSH FLUSH PRN (11:08)
--- NOTE | 2018-06-29 14:32 | Discharge Summary ---
Date of Service June 29, 2018 Admission HPI Per Admitting Provider This is a 57-year-old female who has a significant past medical history of chronic hypoxic respiratory failure on 2 L of O2, pulmonary fibrosis, chronic interstitial lung disease, COPD, chronic pulmonary aspiration, esophageal dysmotility, esophageal diverticulum, GERD, orthostatic hypotension on midodrine, schizoaffective disorder, history of drug and alcohol abuse in remission, history of DVT, history of hep C who presents to [facility] secondary to shortness of breath x2 days. Over the past 48 hours she has noted increased dyspnea on exertion. This afternoon she developed sudden onset of shortness of breath, "I got scared so I called EMS." Further elicits to chills and nausea. She denies any coughing or sputum production, fever, sweats, lightheadedness, dizziness, chest pain, palpitations, hemoptysis, emesis, diarrhea, abdominal pain, change in bowel or urinary habits. She denies any lower extremity edema, weight gain or loss. Her appetite has been normal. Patient does take Trelegy once daily as well as nebulizers 3 times a day. She states "when I get short of breath I get scared and I hate always having to come to the hospital. I want to stay out of the hospital." In ED chest x-ray revealed bilateral pulmonary infiltrates, slightly progressive in the left perihilar region. Her CBC and BMP was relatively unremarkable. Troponin WNL. She received nebulizer treatment, IV Solu-Medrol and IV Zosyn given her aspiration risk. Her breathing status improved but given her multiple lung comorbidities she was recommended for admission. Principal Diagnosis INTERSTITIAL LUNG DISEASE, COPD EXACERBATION, ACUTE ON CHRONIC HYPOXEMIC RESPIRATORY FAILURERESOLVED Discharge Exam Constitutional WD/WN, vitals as above no acute distress Eyes PERRL, conjunctivae normal, anicteric sclerae ENMT external ear and nose normal, oropharynx normal Neck trachea midline, no thyromegaly Respiratory Auscultation: + diminished lung sounds; no rales and no wheezes Cardiovascular RRR, no murmur, no edema Gastrointestinal (Abdomen) normal bowel sounds, soft, nontender, no hepatosplenomegaly Musculoskeletal no cyanosis or clubbing, extremities motor strength 5/5 Skin no rashes, warm and dry Neurologic PERRL, EOMI, accommodation nl, no face palsy, no dysarthria Psychiatric A+Ox3, euthymic affect Discharge Data Allergies Allergy/AdvReac Type Severity Reaction Status Date / Time hydroxyzine Allergy Unknown UNKNOWN Verified 06/26/18 18:46 fluphenazine AdvReac Intermediate confusion Verified 06/26/18 18:46 haloperidol AdvReac Intermediate "MAKES ME Verified 06/26/18 18:46 GO INTO BLACKOUT" hydrocodone AdvReac Intermediate DROWSY Verified 06/26/18 18:46 molindone AdvReac Intermediate PT FEELS Verified 06/26/18 18:46 LIKE SHES "JUMPING OUT OF HER SKIN" morphine AdvReac Intermediate DROWSY Verified 06/26/18 18:46 lithium AdvReac Mild "LEVEL CAN Verified 06/26/18 18:46 GET TOO HIGH" Consultations 06/26/18 20:19 ED Decision to Admit Stat 06/26/18 22:09 Consult Case Management - Discharge Planning Routine 06/27/18 21:01 Consult Pulmonology Routine Hospital Course (1) Chronic respiratory failure with hypoxia, on home O2 therapy: Respiratory status improved to baseline, appreciate input from pulmonology hx of chronic hypoxic respiratory failure on home 02 2L /interstitial lung disease /advanced COPD /pulmonary fibrosis presented with worsening of SOB /LOCKETT for past few days in ER pt was hypoxic in spo02 70% , required Bipap respiratory status improved after Neb tx /Iv Solu Medrol CT chest shows progression of pulmonary fibrosis, Solu-Medrol changed to p.o. prednisone, pulmonology recommends prolonged taper then to continue with chronic low-dose prednisone to prevent flare of respiratory failure Patient is discharged on prednisone 40 mg daily, slow taper over 2 weeks, then continue chronic prednisone 10 mg daily (2) COPD exacerbation: Improved symptomatically Stable to be discharged home with her lung prednisone taper (3) Pneumonia: This is a 57-year-old female who has a significant past medical history of chronic hypoxic respiratory failure on 2 L of O2, pulmonary fibrosis, chronic interstitial lung disease, COPD, chronic pulmonary aspiration, esophageal dysmotility, esophageal diverticulum, GERD, orthostatic hypotension on midodrine, schizoaffective disorder, history of drug and alcohol abuse in remission, history of DVT, history of hep C who presents to [facility] secondary to shortness of breath x2 days. Upon arrival to ED pt noted she was saturating in 70s, EMS placed bipap with out improvement In ED chest x-ray revealed bilateral pulmonary infiltrates, slightly progressive in the left perihilar region. Her CBC and BMP was relatively unremarkable. Troponin WNL. ? if CXR findings are consistent with infectious process vs progression of pulm fibrosis/ILD given no hx of reported cough, fever, normal WBC Discharged on p.o. doxycycline, complete total 5 days course (4) Chronic pulmonary aspiration: aspiration precautions slippery diet recommendations per previous speech therapy discharge no overt s/s of aspiration noted (5) Pulmonary fibrosis: tx as above (6) GERD (gastroesophageal reflux disease): continue PPI and [id number] (7) Orthostatic hypotension: continue midodrine (8) Chronic back pain: continue tylenol #3 prn (9) Schizophrenia: continue rexulti, buproprion, clozaril mood stable (10) Anxiety: continue clonazpam prn (11) Depression: continue escitalopram and buproprion mood stable (12) DVT prophylaxis: Lovenox Disposition: lives at home PT/OT michelle crews, stable to be returned home. Patient is already established with [facility] at home Stable to be discharged home today Follow up: PCP Dr. Adam upon discharge Total Time Total Time Spent Total Time Spent (In Minutes): approximately 45 minutes Total Time Includes: Discharge Planning and Medication Reconciliation Discharge Plan Discharge Items Patient Disposition: Home - Home Health Services Reason For Visit: ACUTE RESP FAILURE,COPD EXAC Discharge Diagnosis: ACUTE ON CHRONIC RESPIRATORY FAILURE /INTERSTITIAL LUNG DISEASE Discharge Goals: Decrease discomfort and Therapeutic intervention Activity: Resume your previous activity Non-emergency contact: Primary Care Provider Call non-emergency contact if: you have any medication questions Follow-up/Referrals: Naveed Adam MD [Primary Care Provider] - Diet: Heart Healthy Addtl Provider Instructions: FOLLOW UP WITH FAMILY PHYSICIAN IN A WEEK Prescriptions: New doxycycline hyclate 100 mg Capsule 100 mg PO BID 5 Days Qty: 10 RF: 0 prednisone 20 mg Tablet 40 mg PO UD 30 Days Qty: 30 RF: 5 Continued clozapine [Clozaril] 100 mg Tablet 100 mg PO BID RF: 0 acetaminophen [Tylenol Extra Strength] 500 mg Tablet 500 mg PO QID MDD 2 GRAM/24 HOURS PRN (Reason: Pain) RF: 0 bupropion HCl 100 mg Tablet 100 mg PO BID RF: 0 famotidine [Pepcid] 20 mg Tablet 20 mg PO BID RF: 0 calcitonin (salmon) 200 unit/actuation [place],Non-Aerosol 1 spray Intranasal QAM RF: 0 ferrous sulfate [FerrouSul] 325 mg (65 mg iron) tablet 325 mg PO BIDM RF: 0 gabapentin [Neurontin] 300 mg capsule 300 mg PO TIDM RF: 0 folic acid 1 mg Tablet 1 mg PO QAM RF: 0 montelukast [Singulair] 10 mg Tablet 10 mg PO HS RF: 0 multivitamin with minerals [Daily Multivitamin-Minerals] Tablet 1 tab PO QAM RF: 0 albuterol sulfate [Ventolin HFA] 90 mcg/actuation Hfa Aerosol Inhaler 2 puff INHALATION QID PRN (Reason: Shortness Of Breath Or Wheezing) RF: 0 fluticasone propionate [Flonase Allergy Relief] 50 mcg/actuation [place],Suspension 2 spray INTRANASAL QAM RF: 0 ipratropium bromide 0.02 % Solution 0.5 mg INHALATION TID RF: 0 midodrine 10 mg Tablet 10 mg PO TIDM RF: 0 escitalopram oxalate [Lexapro] 20 mg Tablet 20 mg PO QAM RF: 0 albuterol sulfate 2.5 mg/0.5 mL Solution For Nebulization 2.5 mg INHALATION TID RF: 0 fenofibrate nanocrystallized [Tricor] 48 mg Tablet 48 mg PO QAM RF: 0 diclofenac sodium [Voltaren] 1 % Gel 4 g TOPICAL QID PRN (Reason: Pain) RF: 0 clonazepam 0.25 mg Tablet,Disintegrating 0.25 mg PO TID PRN (Reason: Anxiety) RF: 0 calcium-vitamin D3-vitamin K [Viactiv] 500-500-40 mg-unit-mcg Tablet,Chewable 1 tab PO BID RF: 0 Trelegy Ellipta 100-62.5-25 mcg Blister With Device 1 inh INHALATION QAM RF: 0 pantoprazole [Protonix] 40 mg Tablet,Delayed Release (Dr/Ec) 40 mg PO BIDM RF: 0 magnesium hydroxide [Milk of Magnesia] 400 mg/5 mL Suspension 15 ml PO HS PRN (Reason: Constipation) RF: 0 benzonatate [Tessalon Perles] 100 mg capsule 100 mg PO TID PRN (Reason: cough) Qty: 15 RF: 0 zoledronic yaly-[id number]-ldzvs [Reclast] 5 mg/100 mL Piggyback 5 mg IV YEARLY RF: 0 acetaminophen-codeine 300-30 mg tablet 1 tab PO Q8 PRN (Reason: Pain) RF: 0 Rexulti 3 mg Tablet 3 mg PO QAM RF: 0 albuterol sulfate 2.5 mg /3 mL (0.083 %) solution for nebulization 2.5 mg DAILY RF: 0 Stand-Alone Forms: [facility] Discharge Orders: Discharge Order (Routine); Ordered 06/29/18 Ordered By: Vanessa Dick Admission Data Admit Date/Time: 06/28/18 13:46 Attending Provider: Vanessa Dick Admit Provider: Ramon King Primary Care Provider: Naveed Adam Other Providers: Ramon King ; Isacc Castro Service: Telemetry Medical Other Interventions: Discharge Summary Assessment (RN) Last Done: 06/29/18 12:20 DC Date/Time DO NOT enter until pt leaves facility: 06/29/18 13:25
[2018-06-29] MEDS ORDERED: ALBUT/IPRATROP 3MG/0.5MG NEB 3 ML VIAL NEB SCH (15:00)
== END 2018-06-29 13:25 | disposition home health service (06) | DRG 190 ==
LOC: ED 17:33 → 2N 17:33 → SUATTDRO 20:54 → 2N 21:34

== ENCOUNTER 2018-07-30 15:22 | Inpatient (IN) ==
[2018-07-30] MEDS ORDERED: ALBUT/IPRATROP 3MG/0.5MG NEB 3 ML VIAL NEB STA (15:52)
[2018-07-30] MEDS ORDERED: methylPREDNISolone 60 MG in SYRINGE 1 ML IV STA (15:55)
[2018-07-30] MEDS ORDERED: SODIUM CHLORIDE 0.9% 1000ML 500 ML IV ONE (15:56)
--- NOTE | 2018-07-30 16:23 | XRay Report ---
XR chest 1V portable CLINICAL HISTORY: Shortness of breath. COMPARISON STUDY: Chest CT March 03, 2018 and chest radiograph July 29, 2018. FINDINGS: Right internal jugular [id number] and thoracic spine fusion hardware is noted. The cardi omediastinal silhouette is stable. There is no pneumothorax or pleural effusion. Interstitial thicken ing is unchanged and chronic. No superimposed consolidation is identified. The appearance of the ches t is unchanged. Old right-sided rib deformities are present. Lower thoracic spine multilevel deformit ies are better depicted on prior CT. IMPRESSION: No change in appearance of the chest. Interstitial thickening which is chronic. Electronically signed by: Benjamin Summers M.D. 07/30/2018 4:22 PM
[2018-07-30 16:53] LABS: Basophils # (auto) 0.03 K/uL (0-0.2); Basophils % (auto) 0.3 %; Eosinophils # (auto) 0.37 K/uL (0-0.5); Eosinophils % (auto) 3.8 %; Hematocrit (blood only) 38.8 % (37-47); Hemoglobin 12.6 g/dL (12.0-16.0); Immature Granulocytes # (auto) 0.04 K/uL (0.00-0.02); Immature Granulocytes % (auto) 0.4 %; Lymphocytes # (auto) 1.08 K/uL (1.2-3.4); Lymphocytes % (auto) 11.1 %; Mean Corpuscular Hgb Conc 32.5 g/dL (32-36); Mean Corpuscular Volume 94.9 fL (80-100); Mean Platelet Volume 10.1 fL (7.4-10.4); Monocytes # (auto) 0.86 K/uL (0.11-0.59); Monocytes % (auto) 8.8 %; Neutrophils # (auto) 7.35 K/uL (1.4-6.5); Neutrophils % (auto) 75.6 %; Platelet Count 189 K/uL (130-400); RDW Coefficient of Variation 14.4 % (11.5-14.5); RDW Standard Deviation 49.3 fL (36.4-46.3); Red Blood Count 4.09 M/uL (4.2-5.4); White Blood Count 9.73 K/uL (4.8-10.8)
[2018-07-30 17:06] LABS: Partial Thromboplastin Time 27.1 Seconds (21.0-31.0); Prothrombin Time 10.7 Seconds (9.0-12.0)
[2018-07-30 17:10] LABS: Alanine Aminotransferase 37 U/L (12-78); Albumin Level 3.3 gm/dl (3.4-5.0); Aspartate Aminotransferase 34 U/L (15-37); BUN Creatinine Ratio 18.6 (10-20); Blood Urea Nitrogen 18 mg/dl (7-18); Carbon Dioxide 27 mmol/L (21-32); Chloride 110 mmol/L (98-107); Est GFR (African American) 74.6; Est GFR (Non-African American) 64.4; Glucose 149 mg/dl (70-99); Magnesium 1.9 mg/dl (1.8-2.4); Potassium 4.2 mmol/L (3.5-5.1); Sodium 142 mmol/L (136-145)
[2018-07-30 17:15] LABS: Albumin Globulin Ratio 0.9 (0.9-2); Alkaline Phosphatase 67 U/L (45-117); Bilirubin,Total 0.3 mg/dl (0.2-1); Globulin 3.9 gm/dl (2.5-4.0); Total Protein 7.2 gm/dl (6.4-8.2); Troponin I < 0.015 ng/ml (0-0.045)
[2018-07-30] MEDS ORDERED: OPTIRAY 320 125ml IV PRN (17:58)
--- NOTE | 2018-07-30 18:30 | CT Scan Report ---
CT ANGIOGRAPHY OF THE CHEST, PULMONARY EMBOLUS PROTOCOL CLINICAL HISTORY: Shortness of breath. Evaluate for pulmonary embolus. COMPARISON STUDY: Chest CT March 03, 2018. Chest radiograph July 30, 2018. TECHNIQUE: Following IV administration of 120 mL of Optiray-320, helical axial images of the chest we re obtained utilizing the pulmonary embolus protocol. Maximal intensity projections and sagittal and coronal reformats were viewed on an independent 3D workstation. IV contrast was administered withou t complication. Automated exposure control was utilized for the study. A dose lowering technique wa s utilized adhering to the principles of ALARA. CT DOSE: 777.90 mGy.cm FINDINGS: No pulmonary emboli are identified. There is no evidence for thoracic aortic dissection. A right internal jugular [id number]-[id number]-Wxcg is in place. The size the heart is normal. There is no pericard ial effusion. Mildly enlarged mediastinal bilateral hilar lymph nodes are similar to CT of March 03, 2018. Index right hilar node on image 164 of 251 measures 2.3 x 1.4 cm. A trace right pleural effusi on is unchanged. There is no pneumothorax or pleural effusion. Groundglass opacities with distortion and bronchiectasis and cystic change within the lungs is similar to exam of March 03, 2018. There is no superimposed consolidation. There is no pneumothorax. Postoperative/post traumatic findings withi n the thoracic spine are unchanged in appearance since prior CT. There is fatty infiltration of the l iver. There are gallstones within the gallbladder. There is no pneumomediastinum. IMPRESSION: 1. No pulmonary emboli identified. 2. No change in appearance of the chest since CT of March 03, 2018. Stable mildly enlarged mediastin al and bilateral hilar lymph nodes which are indeterminate but may related to interstitial lung disea se. 3. Groundglass opacities with distortion, bronchiectasis and cystic change within the lungs which rep resents interstitial lung disease. No change. 4. Postoperative findings within the thoracic spine, as described above. Electronically signed by: Benjamin Summers M.D. 07/30/2018 6:28 PM
--- NOTE | 2018-07-30 19:23 | Emergency Department Note ---
Entered by Lynne Villatoro acting as a scribe for Hubert Raymundo MD History of Present Illness General Chief complaint: Shortness of Breath/Dyspnea Stated complaint: SOB Time Seen by Provider: 07/30/18 15:47 Source: patient and old records reviewed Mode of arrival: ambulatory Limitations: no limitations History of Present Illness Provider complaint: shortness of breath Onset (ago): day(s) 1 Location: chest Associated symptoms: + confusion; no cough Treatments prior to arrival: none The patient is a 57 year old female who presents to the Emergency Room with complaints of shortness of breath that began 1 day prior to arrival. The patient states that she has shortness of breath all of the time. The patient states that she has confusion. The patient denies any cough. The patient states that she normally wears oxygen at home. The patient denies being on any antibiotics or steroids. The patient denies any changes in her medications. The patient states that she called the ambulance prior to arrival because she couldn't breath. The patient denies receiving any medications in the ambulance but states that they did give her oxygen. The patient states that she has a history of COPD and pulmonary fibrosis. The patient states that she lives at home with her sister EMR Reviewed: The patient was seen in the ED 1 day prior to arrival for the same symptoms. The patient was discharged the same day. Home Medications Home Medications Medication Instructions Recorded Confirmed Type albuterol sulfate [Ventolin HFA] 2 puff INHALATION Q6H PRN 12/27/17 07/30/18 History calcitonin (salmon) 1 spray INTRANASAL QAM 12/27/17 07/30/18 History clozapine [Clozaril] 100 mg PO BID 12/27/17 07/30/18 History diclofenac sodium [Voltaren] 4 g TOPICAL QID PRN 12/27/17 07/30/18 History famotidine [Pepcid] 20 mg PO BID 12/27/17 07/30/18 History fenofibrate nanocrystallized 48 mg PO QAM 12/27/17 07/30/18 History [Tricor] ferrous sulfate [FerrouSul] 325 mg PO BIDM 12/27/17 07/30/18 History folic acid 1 mg PO QAM 12/27/17 07/30/18 History midodrine 10 mg PO TIDM 12/27/17 07/30/18 History montelukast [Singulair] 10 mg PO HS 12/27/17 07/30/18 History Trelegy Ellipta 1 inh INHALATION QAM 02/18/18 07/30/18 History pantoprazole [Protonix] 40 mg PO BIDM 02/18/18 07/30/18 History magnesium hydroxide [Milk of 30 ml PO HS PRN 03/02/18 07/30/18 History Magnesia] Rexulti 3 mg PO QAM 06/26/18 07/30/18 History acetaminophen-codeine 1 tab PO Q8H PRN 06/26/18 07/30/18 History vortioxetine [Trintellix] 10 mg PO DAILY 07/19/18 07/30/18 History albuterol sulfate 2.5 mg INHALATION Q4H PRN 07/29/18 07/30/18 History bupropion HCl 100 mg PO BID 07/29/18 07/30/18 History clonazepam 0.25 mg PO TID PRN 07/29/18 07/30/18 History cyclobenzaprine 5 mg PO TID PRN 07/29/18 07/30/18 History gabapentin 300 mg PO TID 07/29/18 07/30/18 History qbjnhpcc-cvt-FY-lycopen-lutein 1 tab PO QAM 07/29/18 07/30/18 History [Centrum Silver] benzonatate [Tessalon Perles] 100 mg PO TID PRN 07/30/18 07/30/18 History calcium-vitamin D3-vitamin K 1 tab PO BID 07/30/18 07/30/18 History prednisone 2.5 mg PO DAILY 07/30/18 07/30/18 History Allergies Allergy/AdvReac Type Severity Reaction Status Date / Time hydroxyzine Allergy Unknown UNKNOWN Verified 07/30/18 16:18 fluphenazine AdvReac Intermediate confusion Verified 07/30/18 16:18 haloperidol AdvReac Intermediate "MAKES ME Verified 07/30/18 16:18 GO INTO BLACKOUT" hydrocodone AdvReac Intermediate DROWSY Verified 07/30/18 16:18 molindone AdvReac Intermediate PT FEELS Verified 07/30/18 16:18 LIKE SHES "JUMPING OUT OF HER SKIN" morphine AdvReac Intermediate DROWSY Verified 07/30/18 16:18 lithium AdvReac Mild "LEVEL CAN Verified 07/30/18 16:18 GET TOO HIGH" Past Med/Surg History Medical History DVT (deep venous thrombosis) (Resolved) right leg--no blood thinners Depression (Chronic) Anxiety (Chronic) Chronic respiratory failure with hypoxia, on home O2 therapy (Chronic) GERD (gastroesophageal reflux disease) (Chronic) Spinal stenosis (Chronic) Osteoarthritis (Chronic) History of anesthesia reaction (Chronic) did not receive enough anesthesia during a colonoscopy and felt everything Pulmonary fibrosis (Chronic) COPD (chronic obstructive pulmonary disease) (Chronic) Schizophrenia (Chronic) Chronic back pain (Chronic) Orthostatic hypotension (Chronic) GERD (gastroesophageal reflux disease) (Chronic) Surgical History History of tooth extraction (Chronic) all teeth removed History of total abdominal hysterectomy and bilateral salpingo-oophorectomy (Chronic) History of open reduction and internal fixation (ORIF) procedure (Chronic) left femur--rods in place History of vascular access device (Chronic) Aport on right side History of thoracic spinal fusion (Chronic) fusion and decompression t6-t12 Family History Grandmother (Paternal) Family hx of colon cancer Social History Preferred Language: Urdu Communication Ability: Effective Visual Impairment: No Limitations Beliefs That Will Affect Care: None Current Living Situation: Parent and Family Current Living Situation Comment: Pt. lives with mother and sister. Feels Safe at Home: Yes Smoking Status: Former smoker Tobacco Type: cigarettes Second Hand Exposure: No Hx Alcohol Use: Yes Hx Substance Use: Yes substance use type: former substance user, marijuana, crack/cocaine and heroin Substance Use Type Other:: No longer Review of Systems See HPI for pertinent positives & negatives. and A total of 10 systems reviewed and were otherwise negative Physical Exam Vital Signs Vital Signs - 24 hr 07/30/18 15:40 07/30/18 15:49 07/30/18 17:00 Temperature 36.8 C Temperature Source Oral Sepsis Recent Fever Within 48 Hours No Sepsis New/Unexplained Change in Mental Status No Sepsis Action Taken by Nursing No Action Required Pulse Rate 105 H Pulse Rate [Finger] 101 H Respiratory Rate 18 18 Respiratory Effort / Characteristics Non-Labored Non-Labored Spontaneous Respiratory Depth Normal Normal Respiratory Pattern Regular Regular Blood Pressure 122/88 Blood Pressure [Left Arm] Blood Pressure Mean 99 Blood Pressure Mean [Left Arm] Pulse Oximetry 100 97 Oxygen Delivery Method Non-rebreather Non-rebreather Nasal Cannula Oxygen Flow Rate 10 10 4 07/30/18 17:06 07/30/18 17:23 07/30/18 17:24 Temperature Temperature Source Sepsis Recent Fever Within 48 Hours Sepsis New/Unexplained Change in Mental Status Sepsis Action Taken by Nursing Pulse Rate Pulse Rate [Finger] 103 H Respiratory Rate 25 H Respiratory Effort / Characteristics Non-Labored Respiratory Depth Normal Respiratory Pattern Regular Blood Pressure Blood Pressure [Left Arm] 111/72 Blood Pressure Mean Blood Pressure Mean [Left Arm] 85 Pulse Oximetry 100 93 92 Oxygen Delivery Method Nasal Cannula Nasal Cannula Nasal Cannula Oxygen Flow Rate 4 3 3 GENERAL: Patient is in no acute distress. HEENT: No acute trauma, normocephalic atraumatic, mucous membranes moist, no nasal congestion, no scleral icterus. NECK: No stridor, no adenopathy, no meningismus, trachea is midline. LUNGS: Decreased breath sounds bilaterally, bilateral wheezes, crackles heard on the left side. HEART: Mildly tachycardic, regular rhythm, no murmurs. ABDOMEN: Soft, nontender, bowel sounds positive, no hernias, no peritonitis. EXTREMITIES: No cyanosis or edema, full range of motion of all the joints without pain or difficulty, no signs for acute trauma. NEUROLOGIC: Oriented x 3, no acute motor or sensory deficits, no focal weakness. SKIN: No rash, no jaundice, no diaphoresis. Course 1549: The patient was evaluated in room C3, and a complete history and physical examination were performed. 172: I checked on the patient and updated her on her results. The patient's oxygen has seemed to improve but the patient states that she does not feel any better. A CT of the chest will be ordered. 184: I checked on the patient and updated her on her results. The patient's oxygen saturation dropped to 70% when the patient went to go to the bathroom. 0: I discussed the patient's case with Heide San who will evaluate the patient for further hospitalization. Consultations Consultation #1: Heide [facility] Hospitalist Time: 19:00 Administered Medications Ipratropium Sandwich (Atrovent 0.02% 0.5mg/2.5ml) 0.5 mg INH Q6R DEVAN Stop: 08/29/18 20:12 Last Admin: 07/30/18 21:17 Dose: 0.5 mg Documented by: [id number] Levalbuterol HCl (Xopenex 1.25mg/0.5ml Neb) 1.25 mg INH Q6R DEVAN Stop: 08/29/18 20:12 Last Admin: 07/30/18 21:17 Dose: 1.25 mg Documented by: [id number] Discontinued Medications Albuterol (Duoneb) 3 ml NEB NOW STA Stop: 07/30/18 15:53 Last Admin: 07/30/18 16:58 Dose: 3 ml Documented by: [id number] Methylprednisolone 60 mg/ (Syringe) 1.96 mls @ 1.5 mls/min IV NOW STA Stop: 07/30/18 15:56 Last Admin: 07/30/18 17:31 Dose: 1.5 mls/min Documented by: [id number] Sodium Chloride (Nss 1000ml) 500 mls @ 999 mls/hr IV .Q31M ONE Stop: 07/30/18 16:26 Last Infusion: 07/30/18 18:27 Dose: 0 mls/hr Documented by: [id number] Admin: 07/30/18 17:39 Dose: 999 mls/hr Documented by: [id number] Ioversol (Optiray 320 125ml) 120 ml IV ONCE PRN PRN Reason: Interaction Checking Stop: 08/03/18 17:57 Last Admin: 07/30/18 17:59 Dose: 1 ml Documented by: [id number] Medical Decision Making Differential Diagnosis Differentials include exacerbation of COPD, worsening pulmonary fibrosis, failed outpatient treatment, pneumonia, CHF, bronchitis, PE, anxiety, and anemia. Medical Records Attestation: I reviewed the patient's medical records. Home Medications Current Medication List: was personally reviewed by me Laboratory Data Attestation: I reviewed the patient's lab results. Result diagrams: 07/30/18 16:23 07/30/18 16:23 Lab Results 07/30/18 07/30/18 07/30/18 Range/Units 16:23 16:23 16:23 WBC 9.73 (4.8-10.8) K/uL RBC 4.09 L (4.2-5.4) M/uL Hgb 12.6 (12.0-16.0) g/dL Hct 38.8 (37-47) % MCV 94.9 (80-100) fL MCH 30.8 (25-34) pg MCHC 32.5 (32-36) g/dL RDW Std Deviation 49.3 H (36.4-46.3) fL RDW Coeff of Ivy 14.4 (11.5-14.5) % Plt Count 189 (130-400) K/uL MPV 10.1 (7.4-10.4) fL Immature Gran % (Auto) 0.4 % Neut % (Auto) 75.6 % Lymph % (Auto) 11.1 % Alcorn % (Auto) 8.8 % Eos % (Auto) 3.8 % Baso % (Auto) 0.3 % Immature Gran # (Auto) 0.04 H (0.00-0.02) K/uL Neut # (Auto) 7.35 H (1.4-6.5) K/uL Lymph # (Auto) 1.08 L (1.2-3.4) K/uL Alcorn # (Auto) 0.86 H (0.11-0.59) K/uL Eos # (Auto) 0.37 (0-0.5) K/uL Baso # (Auto) 0.03 (0-0.2) K/uL PT 10.7 (9.0-12.0) Seconds INR 1.0 (0.9-1.1) APTT 27.1 (21.0-31.0) Seconds PTT Ratio 1.0 Sodium 142 (136-145) mmol/L Potassium 4.2 (3.5-5.1) mmol/L Chloride 110 H (98-107) mmol/L Carbon Dioxide 27 (21-32) mmol/L Anion Gap 5.0 (3-11) BUN 18 (7-18) mg/dl Creatinine 0.97 (0.6-1.2) mg/dl Est Cr Clr Drug Dosing 73.0 ml/min Est GFR ( Amer) 74.6 Est GFR (Non-Af Amer) 64.4 BUN/Creatinine Ratio 18.6 (10-20) Glucose 149 H (70-99) mg/dl Calcium 9.0 (8.5-10.1) mg/dl Magnesium 1.9 (1.8-2.4) mg/dl Total Bilirubin 0.3 (0.2-1) mg/dl AST 34 (15-37) U/L ALT 37 (12-78) U/L Alkaline Phosphatase 67 (45-117) U/L Troponin I < 0.015 (0-0.045) ng/ml Total Protein 7.2 (6.4-8.2) gm/dl Albumin 3.3 L (3.4-5.0) gm/dl Globulin 3.9 (2.5-4.0) gm/dl Albumin/Globulin Ratio 0.9 (0.9-2) Imaging Data Radiologist's Impression: Radiology results as stated below per my review and the radiologist's interpretation: XR chest 1V portable CLINICAL HISTORY: Shortness of breath. COMPARISON STUDY: Chest CT March 03, 2018 and chest radiograph July 29, 2018. FINDINGS: Right internal jugular Dcyupt-d-[id number] and thoracic spine fusion hardware is noted. The cardiomediastinal silhouette is stable. There is no pneumothorax or pleural effusion. Interstitial thickening is unchanged and chron ic. No superimposed consolidation is identified. The appearance of the chest is unchanged. Old right-sided rib deformities are present. Lower thoracic spine multilevel deformities are better depicted on prior CT. IMPRESSION: No change in appearance of the chest. Interstitial thickening which is chronic. Electronically signed by: Benjamin Summers M.D. 07/30/2018 4:[address] ANGIOGRAPHY OF THE CHEST, PULMONARY EMBOLUS PROTOCOL CLINICAL HISTORY: Shortness of breath. Evaluate for pulmonary embolus. COMPARISON STUDY: Chest CT March 03, 2018. Chest radiograph July 30, 2018. TECHNIQUE: Following IV administration of 120 mL of Optiray-320, helical axial images of the chest were obtained utilizing the pulmonary embolus protocol. Maximal intensity projections and sagittal and coronal reformats were viewed on an independent 3D workstation. IV contrast was administered without complication. Automated exposure control was utilized for the study. A dose lowering technique was utilized adhering to the principles of ALARA. CT DOSE: 777.90 mGy.cm FINDINGS: No pulmonary emboli are identified. There is no evidence for thoracic aortic dissection. A right internal jugular Bkcckk-p-Iakm is in place. The size the heart is normal. There is no pericardial effusion. Mildly enlarged mediastinal bilateral hilar lymph nodes are similar to CT of March 03, 2018. Index right hilar node on image 164 of 251 measures 2.3 x 1.4 cm. A trace right pleural effusion is unchanged. There is no pneumothorax or pleural effusion. Groundglass opacities with distortion and bronchiectasis and cystic change within the lungs is similar to exam of March 03, 2018. There is no superimposed consolidation. There is no pneumothorax. Postoperative/post traumatic findings within the thoracic spine are unchanged in appearance since prior CT. There is fatty infiltration of the liver. There are gallstones within the gallbladder. There is no pneumomediastinum. IMPRESSION: 1. No pulmonary emboli identified. 2. No change in appearance of the chest since CT of March 03, 2018. Stable mildly enlarged mediastinal and bilateral hilar lymph nodes which are indet erminate but may related to interstitial lung disease. 3. Groundglass opacities with distortion, bronchiectasis and cystic change within the lungs which represents interstitial lung disease. No change. 4. Postoperative findings within the thoracic spine, as described above. Electronically signed by: Benjamin Summers M.D. 07/30/2018 6:28 PM ECG Data Attestation: I personally reviewed and interpreted this ECG as follows: Indication: SOB/dyspnea Blood Pressure Blood Pressure Findings: Normal blood pressure MDM Narrative There is no leukocytosis or concerning anemia. No coagulopathy. No significant electrolyte abnormality or kidney failure. No elevation to the LFTs. EKG showed a sinus rhythm, no acute ischemia. Cardiac enzyme testing x1 was not consistent with acute cardiac injury. Chest x-ray showed some chronic findings, no CHF, no pneumothorax. Chest CT showed chronic findings, there was no evidence for PE, no evidence for a focal infiltrate. The patient received a DuoNeb, she was given IV Solu-Medrol, she received a 500 cc saline bolus. The patient presents dyspneic. She was here yesterday for the same symptoms and is now back again today. She initially was doing well on nasal cannula O2. We did get her up to use the restroom and her O2 saturation dropped to the low 70s. She was placed back in bed and the oxygen flow was increased. The patient presents with dyspnea. She was hypoxic here with any exertion. She appears to be suffering from a flare of COPD and a flare of her pulmonary f ibrosis. I do not think she is in a condition be discharged home. I spoke to the patient and case management. The on-call hospitalist was consulted. Impression & Plan Hypoxia, Pulmonary fibrosis, COPD exacerbation, Failure of outpatient treatment Discharge Plan Visit Data *Final* Discharge Date/Time: 07/30/18 19:47 Chief Complaint: Shortness of Breath/Dyspnea Stated Complaint: SOB ED Provider: Hubert Raymundo Discharge Problem: Hypoxia, Pulmonary fibrosis, COPD exacerbation, Failure of outpatient treatment Patient Disposition: Admitted As Inpatient Discharge Instructions Interventions: ED Discharge Assessment Last Done: 07/30/18 19:47 The scribe's documentation has been prepared under my direction and personally reviewed by me in its entirety. I confirm that the note above accurately reflect s all work, treatment, procedures, and medical decision making performed by me.
--- NOTE | 2018-07-30 20:08 | History & Physical Report ---
Date of Service July 30, 2018 Assessment & Plan (1) Acute on chronic respiratory failure with hypoxia: (2) COPD exacerbation: (3) Pulmonary fibrosis: -Admit to [facility] with telemetry -Patient presenting from home with reports of increasing shortness of breath -Patient with history of COPD and pulmonary fibrosis on chronic O2 (6 L with exertion, 2 L at rest, 3 L at night) -Per EMS, patient was 70% on 6 L, patient also desaturated with ambulation in the ED; currently saturating well on 3 L at rest -CTA chest negative for PE, no signs of infiltrate or pneumonia -Recently, patient's chronic dose of prednisone has been being tapered off as an outpatient (patient currently taking 2.5 mg down from her previous 10 mg) -Patient denies cough and sputum production -Suspect that current exacerbation is likely due to recent decrease in steroids -Given lack of sputum production and infiltrates noted on CT, will hold on antibiotics for now -Received Solu-Medrol 60 mg in the ED, will continue with 40 mg IV every 8 hours -Pulmonary toilet with [id number] nebulizer treatments, flutter valve, chest PT (4) Tachycardia: -Sinus tachycardia, likely secondary to nebulizer laser treatments -Will utilize Xopenex -Monitor on telemetry (5) Depression: (6) Anxiety: (7) Schizophrenia: -Continue home meds; bupropion, clonazepam, clozapine, Rexulti, Trintellix (8) GERD (gastroesophageal reflux disease): -Continue PPI and H2 kerrie (9) Orthostatic hypotension: -BP stable, continue Midodrine (10) Chronic back pain: -Continue Tylenol #3 and gabapentin (11) DVT prophylaxis: -SQ Lovenox History of Present Illness Chief Complaint: Shortness of breath Primary Care Provider: Naveed Adam MD 57-year-old female who presents the ED with shortness of breath. Patient was recently admitted to [facility] 06/26 through 06/29 for COPD exacerbation. At that time, patient was discharged on a prolonged prednisone taper. Patient previously had been taking prednisone 10 mg chronically and recently this was attempted to be tapered off by her outpatient chief power dispatcher. Patient is currently taking 2.5 mg daily and is to stop in 4 days. Patient reports she developed shortness of breath yesterday. She was seen in the ED and was given albuterol treatment with improvement in her symptoms and was discharged back home. Patient reports her symptoms returned quickly today. She describes severe shortness of breath however no cough or sputum production. She denies fevers and chills. She reports a nonspecific intermittent chest pain that she has difficulty describing. She reports occasional lightheadedness and dizziness but denies any syncopal event. She denies abdominal pain, nausea, vomiting, diarrhea. No urinary symptoms. Per EMS, patient was saturating 70% on her chronic 6 L. Patient wears 6 L with ambulation, 2 L at rest, 3 L at bedtime. In the ED, she maintained good oxygen saturations on 3 L however did desaturate with ambulation. CTA chest negative for PE and other acute pulmonary findings. She was given IVF, IV Solu-Medrol, nebulizer treatment. Allergies Allergy/AdvReac Type Severity Reaction Status Date / Time hydroxyzine Allergy Unknown UNKNOWN Verified 07/30/18 16:18 fluphenazine AdvReac Intermediate confusion Verified 07/30/18 16:18 haloperidol AdvReac Intermediate "MAKES ME Verified 07/30/18 16:18 GO INTO BLACKOUT" hydrocodone AdvReac Intermediate DROWSY Verified 07/30/18 16:18 molindone AdvReac Intermediate PT FEELS Verified 07/30/18 16:18 LIKE SHES "JUMPING OUT OF HER SKIN" morphine AdvReac Intermediate DROWSY Verified 07/30/18 16:18 lithium AdvReac Mild "LEVEL CAN Verified 07/30/18 16:18 GET TOO HIGH" Home Medications Home Medications Medication Instructions Recorded Confirmed Type albuterol sulfate [Ventolin HFA] 2 puff INHALATION Q6H PRN 12/27/17 07/30/18 History calcitonin (salmon) 1 spray INTRANASAL QAM 12/27/17 07/30/18 History clozapine [Clozaril] 100 mg PO BID 12/27/17 07/30/18 History diclofenac sodium [Voltaren] 4 g TOPICAL QID PRN 12/27/17 07/30/18 History famotidine [Pepcid] 20 mg PO BID 12/27/17 07/30/18 History fenofibrate nanocrystallized 48 mg PO QAM 12/27/17 07/30/18 History [Tricor] ferrous sulfate [FerrouSul] 325 mg PO BIDM 12/27/17 07/30/18 History folic acid 1 mg PO QAM 12/27/17 07/30/18 History midodrine 10 mg PO TIDM 12/27/17 07/30/18 History montelukast [Singulair] 10 mg PO HS 12/27/17 07/30/18 History Trelegy Ellipta 1 inh INHALATION QAM 02/18/18 07/30/18 History pantoprazole [Protonix] 40 mg PO BIDM 02/18/18 07/30/18 History magnesium hydroxide [Milk of 30 ml PO HS PRN 03/02/18 07/30/18 History Magnesia] Rexulti 3 mg PO QAM 06/26/18 07/30/18 History acetaminophen-codeine 1 tab PO Q8H PRN 06/26/18 07/30/18 History vortioxetine [Trintellix] 10 mg PO DAILY 07/19/18 07/30/18 History albuterol sulfate 2.5 mg INHALATION Q4H PRN 07/29/18 07/30/18 History bupropion HCl 100 mg PO BID 07/29/18 07/30/18 History clonazepam 0.25 mg PO TID PRN 07/29/18 07/30/18 History cyclobenzaprine 5 mg PO TID PRN 07/29/18 07/30/18 History gabapentin 300 mg PO TID 07/29/18 07/30/18 History stjrczna-xsq-LT-lycopen-lutein 1 tab PO QAM 07/29/18 07/30/18 History [Centrum Silver] benzonatate [Tessalon Perles] 100 mg PO TID PRN 07/30/18 07/30/18 History calcium-vitamin D3-vitamin K 1 tab PO BID 07/30/18 07/30/18 History prednisone 2.5 mg PO DAILY 07/30/18 07/30/18 History Past Med/Surg History Medical History DVT (deep venous thrombosis) (Resolved) right leg--no blood thinners Depression (Chronic) Anxiety (Chronic) Chronic respiratory failure with hypoxia, on home O2 therapy (Chronic) GERD (gastroesophageal reflux disease) (Chronic) Spinal stenosis (Chronic) Osteoarthritis (Chronic) History of anesthesia reaction (Chronic) did not receive enough anesthesia during a colonoscopy and felt everything Pulmonary fibrosis (Chronic) COPD (chronic obstructive pulmonary disease) (Chronic) Schizophrenia (Chronic) Chronic back pain (Chronic) Orthostatic hypotension (Chronic) GERD (gastroesophageal reflux disease) (Chronic) Surgical History History of tooth extraction (Chronic) all teeth removed History of total abdominal hysterectomy and bilateral salpingo-oophorectomy (Chronic) History of open reduction and internal fixation (ORIF) procedure (Chronic) left femur--rods in place History of vascular access device (Chronic) Aport on right side History of thoracic spinal fusion (Chronic) fusion and decompression t6-t12 Family History Grandmother (Paternal) Family hx of colon cancer Social History Preferred Language: [place]ian Communication Ability: Effective Visual Impairment: No Limitations Beliefs That Will Affect Care: None Current Living Situation: Family Current Living Situation Comment: Pt. lives with mother and sister. Feels Safe at Home: Yes Smoking Status: Former smoker Tobacco Type: cigarettes Second Hand Exposure: No Hx Alcohol Use: No Hx Substance Use: Yes substance use type: former substance user, marijuana, crack/cocaine and heroin Substance Use Type Other:: No longer Review of Systems Review of Systems: ROS per HPI, all other systems reviewed and negative Physical Exam Constitutional: WD/WN, vitals as above Eyes: PERRL, conjunctivae normal, anicteric sclerae ENMT: Ears: no external ear abnormality Nose: no external nose abnormality Mouth: + edentulous Respiratory: no respiratory distress and + not able to speak in complete sentence (Mild conversational dyspnea noted) Auscultation: + diminished lung sounds (Poor air entry noted bilaterally) and + wheezes (End expiratory) Cardiovascular: Rate/Rhythm: regular rhythm and + tachycardic Vessels: normal peripheral pulses Extremities: no edema Gastrointestinal (Abdomen): normal bowel sounds, soft, nontender, no hepatosplenomegaly Musculoskeletal: no cyanosis or clubbing, extremities motor strength 5/5 Skin: + rash (Tinea versicolor appearing rash to the back) Skin warm and dry Neurologic: PERRL, EOMI, accommodation nl, no face palsy, no dysarthria Psychiatric: A+Ox3, euthymic affect Speech: + pressured speech Insight: + limited insight Results & Data Vital Signs (Past 12 Hours) Vital Signs Temp Pulse Pulse Resp BP BP Pulse Ox 07/30/18 19:47 82 25 H 98 07/30/18 19:30 91 H 21 153/106 H 94 07/30/18 17:24 103 H 25 H 111/72 92 07/30/18 17:23 93 07/30/18 17:06 100 07/30/18 17:00 101 H 18 97 07/30/18 15:40 36.8 C 105 H 18 122/88 100 Laboratory Results Short CBC 07/30/18 Range/Units 16:23 WBC 9.73 (4.8-10.8) K/uL Hgb 12.6 (12.0-16.0) g/dL Hct 38.8 (37-47) % Plt Count 189 (130-400) K/uL BMP 07/30/18 16:23 Sodium 142 Potassium 4.2 Chloride 110 H Carbon Dioxide 27 BUN 18 Creatinine 0.97 Glucose 149 H Calcium 9.0 Cardiac Enzymes 07/30/18 Range/Units 16:23 Troponin I < 0.015 (0-0.045) ng/ml Liver Function 07/30/18 Range/Units 16:23 Total Bilirubin 0.3 (0.2-1) mg/dl AST 34 (15-37) U/L ALT 37 (12-78) U/L Alkaline Phosphatase 67 (45-117) U/L Albumin 3.3 L (3.4-5.0) gm/dl Diagnostic Findings CXR IMPRESSION: No change in appearance of the chest. Interstitial thickening which is chronic. CTA CHEST IMPRESSION: 1. No pulmonary emboli identified. 2. No change in appearance of the chest since CT of March 03, 2018. Stable mildly enlarged mediastinal and bilateral hilar lymph nodes which are indeterminate but may related to interstitial lung disease. 3. Groundglass opacities with distortion, bronchiectasis and cystic change within the lungs which represents interstitial lung disease. No change. 4. Postoperative findings within the thoracic spine, as described above. Code Status & VTE Plan VTE Prophylaxis Plan VTE Prophylaxis will be ordered: Yes Supervising Physician Co-Signing Physician Notes Care coordinated with ROSALIE Olson. Agree with brett note. Patient seen and examined. Please refer to her notes for full details. Vital signs reviewed. Physical exam: General exam: Alert and oriented. Not in acute distress. CVS: S1 and S2 heard, regular rate and rhythm, no murmurs. RS: Clear to auscultation, mild b/l wheezing no crackles. ABD: Soft, bowel sounds present, nontender, no distention. FLOOR PLAN ADJUSTER: Nonfocal. EXT: No edema, no erythema. Labs: Reviewed. Assessment and plan: Copd ex steroids, nebs. Not to taper prednisone below 10mg Schizoprenia Continue home meds Other diagnosis and plan of care as per Heide WIGGINS. Ramon dodd MD. (1) Schizophrenia Schizophrenia type: unspecified Qualified Code(s): F20.9 - Schizophrenia, unspecified
[2018-07-30] MEDS ORDERED: CYCLOBENZAPRINE HCL 5 MG TAB PO PRN (20:13)
[2018-07-30] MEDS ORDERED: XOPENEX/ATROVENT 1.25mg/0.5MG NEB COMBO NEB SCH (20:13)
[2018-07-30] MEDS: IPRATROPIUM BROMIDE NEB SOLN 0.02% 2.5 ML VIAL INH SCH (21:17)
[2018-07-30] MEDS: LEVALBUTEROL 1.25MG/0.5ML NEB INH SCH (21:17)
[2018-07-30] MEDS: ACETAMINOPHEN W/CODEINE #3 1 TAB PO PRN (21:58)
[2018-07-30] MEDS: FERROUS SULFATE 325 MG TAB PO SCH (22:00)
[2018-07-30] MEDS: BuPROPion SR 100 MG TABCR PO SCH (22:00)
[2018-07-30] MEDS: cloZAPine 100 MG TAB PO SCH (22:01)
[2018-07-30] MEDS: CLOTRIMAZOLE 1% CR 15 GM TUBE EXT SCH (22:03)
[2018-07-30] MEDS: FAMOTIDINE 20 MG TAB PO SCH (22:03)
[2018-07-30] MEDS: ENOXAPARIN INJ 40 MG/0.4 ML SYR SQ SCH (22:03)
[2018-07-30] MEDS: GABAPENTIN 300 MG CAP PO SCH (22:03)
[2018-07-30] MEDS: MONTELUKAST SODIUM 10 MG TABLET PO SCH (22:04)
[2018-07-30] MEDS: MAGNESIUM HYDROXIDE SUSP 30 ML UDC PO STA ×2 (22:05→22:54)
[2018-07-30] MEDS: ACETAMINOPHEN 325 MG TAB PO PRN (22:56)
[2018-07-31] MEDS: methylPREDNISolone 40 MG in SYRINGE 0 ML IV SCH ×3 (00:58→18:09)
[2018-07-31] MEDS: LEVALBUTEROL 1.25MG/0.5ML NEB INH SCH ×4 (02:06→19:27)
[2018-07-31] MEDS: IPRATROPIUM BROMIDE NEB SOLN 0.02% 2.5 ML VIAL INH SCH ×4 (02:06→19:27)
[2018-07-31] MEDS: FERROUS SULFATE 325 MG TAB PO SCH ×2 (05:26→18:09)
[2018-07-31] MEDS: HEPARIN 100 UNIT/ML 5ML FLUSH FLUSH PRN (05:50)
[2018-07-31 06:19] LABS: Hematocrit (blood only) 40.7 % (37-47); Hemoglobin 13.2 g/dL (12.0-16.0); Mean Corpuscular Hgb Conc 32.4 g/dL (32-36); Mean Corpuscular Volume 94.4 fL (80-100); Mean Platelet Volume 9.6 fL (7.4-10.4); Platelet Count 213 K/uL (130-400); RDW Coefficient of Variation 14.1 % (11.5-14.5); RDW Standard Deviation 48.8 fL (36.4-46.3); Red Blood Count 4.31 M/uL (4.2-5.4); White Blood Count 7.16 K/uL (4.8-10.8)
[2018-07-31 06:58] LABS: BUN Creatinine Ratio 18.1 (10-20); Creatinine Clr Calc Pharmacy 78.6 ml/min; Est GFR (African American) 81.7; Est GFR (Non-African American) 70.5; Potassium 4.3 mmol/L (3.5-5.1)
[2018-07-31] MEDS: FENOFIBRATE NANOCRYSTALLIZED 48 MG TABLET PO SCH (08:20)
[2018-07-31] MEDS: FOLIC ACID 1 MG TAB PO SCH (08:20)
[2018-07-31] MEDS: PANTOprazole 40 MG TAB PO SCH ×2 (08:21→18:09)
[2018-07-31] MEDS: cloZAPine 100 MG TAB PO SCH ×2 (08:21→20:33)
[2018-07-31] MEDS: CEROVITE ADV FORMULA TAB PO SCH (08:21)
[2018-07-31] MEDS: FAMOTIDINE 20 MG TAB PO SCH ×2 (08:21→20:34)
[2018-07-31] MEDS: CALCITONIN SALMON NA 200 IU/AC 3.7 ML BTL SCH (08:22)
[2018-07-31] MEDS: BuPROPion SR 100 MG TABCR PO SCH ×2 (08:22→20:34)
[2018-07-31] MEDS: GABAPENTIN 300 MG CAP PO SCH ×3 (08:22→20:33)
[2018-07-31] MEDS: MIDODRINE HCL 10 MG TAB PO SCH ×3 (08:23→18:09)
[2018-07-31] MEDS: CLOTRIMAZOLE 1% CR 15 GM TUBE EXT SCH ×2 (08:23→20:28)
[2018-07-31] MEDS: ACETAMINOPHEN W/CODEINE #3 1 TAB PO PRN ×3 (09:21→21:48)
--- NOTE | 2018-07-31 09:36 | Hospitalist Progress Note ---
Date of Service July 31, 2018 Assessment & Plan (1) Acute on chronic respiratory failure with hypoxia: (2) COPD exacerbation: (3) Pulmonary fibrosis: -Patient with history of COPD and pulmonary fibrosis on chronic O2 (6 L with exertion, 2 L at rest, 3 L at night) -Per EMS, patient was 70% on 6 L, patient also desaturated with ambulation in the ED; currently saturating well on 3 L at rest -CTA chest negative for PE, no signs of infiltrate or pneumonia -Recently, patient's chronic dose of prednisone has been being tapered off as an outpatient (patient currently taking 2.5 mg down from her previous 10 mg) - from decrease in Prednisone? - on Solumedrol 40mg q8h, Nebs q6h - today, on 6L at rest O2 sat > 90% - will consult Pulm (4) Tachycardia: -Sinus tachycardia, likely secondary to nebulizer laser treatments - resolved (5) Depression: (6) Anxiety: (7) Schizophrenia: -Continue home meds; bupropion, clonazepam, clozapine, Rexulti, Trintellix (8) GERD (gastroesophageal reflux disease): -Continue PPI and H2 kerrie (9) Orthostatic hypotension: -BP stable, continue Midodrine (10) Chronic back pain: -Continue Tylenol #3 and gabapentin (11) DVT prophylaxis: -SQ Lovenox Subjective ff up for acute on chronic hypoxic respiratory failure seen resting in bed, on 6 L NC, not in distress, speaks in sentences with mild effort states she feels about the same as yesterday, intermittent dry cough no chest pain reports pain in her legs, hips, shoulders denies other symptoms Review of Systems Review of Systems: All systems reviewed & are unremarkable except as noted in HPI & below Physical Exam Physical Exam: General- oriented x 3, not in distress, speaks in sentences with no effort or accessory muscle use Eyes- anicteric Neck- no JVD Lungs- (+) mild wheeze BL no crackles Heart- normal rate, regular rhythm; no murmurs Abdomen- normal bowel sounds, nondistended, soft, nontender Extremities- no pretibial edema, no calf tenderness Neuro- alert, oriented x 3; no gross focal neurologic deficits Skin- warm & dry Results & Data Vital Signs (Past 12 Hours) Vital Signs Temp Pulse Pulse Resp BP Pulse Ox 07/31/18 07:36 85 20 99 06/05/19 07:04 36.5 C 92 H 16 133/94 98 07/31/18 04:11 80 07/31/18 03:45 36.8 C 60 18 128/88 96 07/31/18 02:06 85 20 99 07/30/18 23:57 36.3 C L 97 H 22 137/86 94 Laboratory Results Laboratory Results - last 24 hr 07/30/18 07/30/18 07/30/18 16:23 16:23 16:23 WBC 9.73 RBC 4.09 L Hgb 12.6 Hct 38.8 MCV 94.9 MCH 30.8 MCHC 32.5 RDW Std Deviation 49.3 H RDW Coeff of Ivy 14.4 Plt Count 189 MPV 10.1 Immature Gran % (Auto) 0.4 Neut % (Auto) 75.6 Lymph % (Auto) 11.1 Smith % (Auto) 8.8 Eos % (Auto) 3.8 Baso % (Auto) 0.3 Immature Gran # (Auto) 0.04 H Neut # (Auto) 7.35 H Lymph # (Auto) 1.08 L Smith # (Auto) 0.86 H Eos # (Auto) 0.37 Baso # (Auto) 0.03 PT 10.7 INR 1.0 APTT 27.1 PTT Ratio 1.0 Sodium 142 Potassium 4.2 Chloride 110 H Carbon Dioxide 27 Anion Gap 5.0 BUN 18 Creatinine 0.97 Est Cr Clr Drug Dosing 73.0 Est GFR ( Amer) 74.6 Est GFR (Non-Af Amer) 64.4 BUN/Creatinine Ratio 18.6 Glucose 149 H Calcium 9.0 Magnesium 1.9 Total Bilirubin 0.3 AST 34 ALT 37 Alkaline Phosphatase 67 Troponin I < 0.015 Total Protein 7.2 Albumin 3.3 L Globulin 3.9 Albumin/Globulin Ratio 0.9 07/31/18 07/31/18 05:50 05:50 WBC 7.16 RBC 4.31 Hgb 13.2 Hct 40.7 MCV 94.4 MCH 30.6 MCHC 32.4 RDW Std Deviation 48.8 H RDW Coeff of Ivy 14.1 Plt Count 213 MPV 9.6 Immature Gran % (Auto) Neut % (Auto) Lymph % (Auto) Smith % (Auto) Eos % (Auto) Baso % (Auto) Immature Gran # (Auto) Neut # (Auto) Lymph # (Auto) Smith # (Auto) Eos # (Auto) Baso # (Auto) PT INR APTT PTT Ratio Sodium 144 Potassium 4.3 Chloride 109 H Carbon Dioxide 30 Anion Gap 5.0 BUN 16 Creatinine 0.90 Est Cr Clr Drug Dosing 78.6 Est GFR ( Amer) 81.7 Est GFR (Non-Af Amer) 70.5 BUN/Creatinine Ratio 18.1 Glucose 156 H Calcium 9.0 Magnesium Total Bilirubin AST ALT Alkaline Phosphatase Troponin I Total Protein Albumin Globulin Albumin/Globulin Ratio (1) Schizophrenia Schizophrenia type: unspecified Qualified Code(s): F20.9 - Schizophrenia, unspecified
[2018-07-31] MEDS: BENZONATATE 100 MG CAPSULE PO PRN (09:46)
[2018-07-31 16:26] LABS: Appearance Urine Clear (Clear); Bilirubin Urine Negative (Negative); Blood Urine Negative (Negative); Color Urine Yellow; Glucose Urine UA Trace (Negative); Ketones Urine Negative (Negative); Leukocyte Esterase Urine Negative (Negative); Nitrite Urine Negative (Negative); Protein Urine Negative (Negative); Specific Gravity Urine 1.016 (1.000-1.030); Urobilinogen Urine Negative (Negative); pH Urine 6.5 (4.5-7.5)
[2018-07-31] MEDS: clonazePAM 0.5 MG TAB PO PRN (18:18)
[2018-07-31] MEDS: MONTELUKAST SODIUM 10 MG TABLET PO SCH (20:33)
[2018-07-31] MEDS: ENOXAPARIN INJ 40 MG/0.4 ML SYR SQ SCH (20:34)
[2018-07-31] MEDS: CHOLECALCIFEROL PO SCH (21:51)
[2018-07-31] MEDS: PHYTONADIONE PO SCH (21:51)
[2018-07-31] MEDS: CALCIUM PO SCH (21:51)
--- NOTE | 2018-07-31 22:29 | Consultation Report ---
DATE OF CONSULTATION: 07/31/2018 DATE OF CONSULTATION: 07/31/2018 TIME: 5:10 p.m. REPORT OF CONSULTATION: The patient was seen in room 283, bed 1. She is a 57-year-old female with a known history of pulmonary fibrosis. She has had numerous hospital stays, especially over the past year. Her CAT scans have shown bilateral reticular and ground-glass opacities with traction bronchiectasis as well as pulmonary cystic changes. I believe she was encouraged to have a lung biopsy done through [facility], but she refused. Most recently, she was hospitalized from June 26 through June 29 with an exacerbation of her pulmonary fibrosis. Subsequently, she was in the Emergency Room on 07/19/2018 with leg weakness. She was treated and released at that point in time. She came to the Emergency Room on July 29. She was complaining of shortness of breath at that time. They reported that she ambulated in the ER without any hypoxia or respiratory distress and she was discharged. The patient then returned on 07/30/2018 with persistent complaints of shortness of breath. Review of the ER notes shows very adequate oxygen saturations initially with 4 liter nasal cannula 100%, then on 3 liters down to 93%. However, the patient's saturation reportedly did drop in the Emergency Room down to 70% when she went to the restroom. It was unknown if she had oxygen on at that time or not. She was then admitted. She states she feels a little better, but not great. She has just a very mild cough. Her chart lists her having COPD, but I could not confirm that. I have never seen pulmonary function test that she would have had as an outpatient. She clearly does have pulmonary fibrosis which has been seen numerous times. I do not believe any definitive cause was able to be determined. She has been on prednisone much of the time. The patient states they were trying to taper her off of prednisone. I am not sure if that is because they thought the leg weakness might be related. The patient does have a history of psychiatric illness. She acknowledged that she gets much more pinto when she is on the prednisone at the higher doses. She has no chills, fevers or sweats. Denies chest pains. PAST MEDICAL HISTORY: 1. Chronic schizoaffective disorder. 2. Depression. 3. Aspiration pneumonia. 4. DVT. 5. Osteoporosis. 6. Urinary retention. 7. Concussion. 8. Seizure disorder. 9. Hepatitis C positive. 10. Osteomyelitis. 11. Kyphoscoliosis. PAST SURGICAL HISTORY: 1. Femur fracture. 2. Back surgery possibly for the scoliosis. 3. Total abdominal hysterectomy. 4. Tonsillectomy. FAMILY HISTORY: Father of pneumonia and CVA. Mother has thyroid problems. ALLERGIES: HYDROXYZINE, FLUPHENAZINE, HALOPERIDOL, HYDROCODONE, MOLIDONE, MORPHINE, OXYCODONE, LITHIUM. MEDICATIONS AT HOME: 1. Nebs with albuterol p.r.n. 2. Ventolin HFA p.r.n. 3. Benzonatate Perles p.r.n. 4. Bupropion 100 mg b.i.d. 5. Calcitonin nasal spray. 6. Multivitamin. 7. Clonazepam 0.25 t.i.d. p.r.n. 8. Clozaril 100 mg b.i.d. 9. Cyclobenzaprine 5 mg t.i.d. p.r.n. 10. Diclofenac topical p.r.n. 11. Famotidine 20 mg b.i.d. 12. Ferrous sulfate. 13. Folic acid 1 mg daily. 14. Gabapentin 300 mg t.i.d. 15. Magnesium. 16. Midodrine 10 mg t.i.d. 17. Montelukast 10 mg. 18. Pantoprazole 40 mg b.i.d. 19. Rexulti 3 mg daily. 20. Trelegy Ellipta 1 puff daily. 21. Trintellix 10 mg daily. REVIEW OF SYSTEMS: The patient does have a rash on her back and on her buttock that is chronic. Appetite is good. She has marked urinary incontinence that at times is not even stress incontinence. She does complain of some chronic pain somewhat diffusely. Review of systems is otherwise negative. PHYSICAL EXAMINATION: GENERAL: The patient is a 57-year-old female who was cooperative, alert and oriented. She was anxious. She did not appear in any acute distress. Weight is 100.5 kilograms. It is notable that her weight has been somewhat up and down, but in December 2017, she was listed as 92 kilograms. VITAL SIGNS: Temperature is 36.6. She has had no fevers. HEENT: Pupils were reactive. Nares clear. Mouth exam showed no erythema or exudate. NECK: Palpation of the neck reveals no lymph nodes. HEART: Cardiac rate is currently 113 per minute. The rhythm is somewhat irregular. LUNGS: Auscultation of the lung nunes revealed rales posteriorly bilaterally. The respiratory rate is 21. Her saturation was 100% on 15 liters of oxygen. Nursing staff reports she gets very upset when the oxygen is turned down. This was surprising because she tells me she usually uses 2-3 liters at home. Earlier this afternoon, it was 99% on 6 liters. There was no accessory muscle use. ABDOMEN: Obese. She complained of mild pain on the right side with palpation. Bowel sounds were present. There was no rigidity or guarding. Examination of the back reveals scars from prior surgery. She has an extensive rash on her thorax posteriorly. EXTREMITIES: Reveals no cyanosis or clubbing. Trace edema was noted. She has a mild rash on her wrist that looks similar to her back. LABORATORY DATA: White count is 7.16. Hemoglobin 13.2. Platelets 213,000. Coags were normal. She did not have an arterial blood gas this hospital stay. Review of prior blood gases shows that her pCO2 in the past has been as high as 53, but sometimes it is normal as well. Electrolytes show sodium 144, potassium 4.3, chloride 109, bicarbonate 30. BUN 16 with a creatinine 0.9. Blood sugar 156. Liver functions normal. Urinalysis unremarkable. CTA of the chest showed no evidence of pulmonary embolism. Mildly enlarged mediastinal and hilar lymph nodes noted which are indeterminant. These are unchanged compared with 03/03/2018. Ground-glass opacities with distortion bronchiectasis and cystic change seen throughout. IMPRESSION: 1. Acute on chronic respiratory failure with hypoxia. 2. Exacerbation of pulmonary fibrosis. COMMENTS AND RECOMMENDATIONS: The patient appears stable as she can be. It is difficult to say if the prednisone she has received over time has been beneficial or not. On the other hand, she has been tapering the prednisone off and she has had an acute visit this time with a couple of other evaluations. The patient also gets very panicky, as has been found in the past. She states she wears BiPAP at night, 08/08. She could not qualify for BiPAP for quite some time, but she states Dr. Adam was able to get it for her. I believe we should keep her saturations between 90 and 93%. I agree with the methylprednisolone that is ordered as per now. Case was discussed with Dr. Diego. He will try and find outpatient pulmonary function test if they are available.
[2018-08-01] MEDS: methylPREDNISolone 40 MG in SYRINGE 0 ML IV SCH ×3 (00:05→16:55)
[2018-08-01] MEDS: clonazePAM 0.5 MG TAB PO PRN (01:13)
[2018-08-01] MEDS: ACETAMINOPHEN 325 MG TAB PO PRN (01:14)
[2018-08-01] MEDS: IPRATROPIUM BROMIDE NEB SOLN 0.02% 2.5 ML VIAL INH SCH ×4 (01:51→20:39)
[2018-08-01] MEDS: LEVALBUTEROL 1.25MG/0.5ML NEB INH SCH ×4 (01:51→20:39)
[2018-08-01] MEDS: BENZONATATE 100 MG CAPSULE PO PRN ×3 (03:19→18:53)
[2018-08-01] MEDS: MAGNESIUM HYDROXIDE SUSP 30 ML UDC PO PRN (05:56)
[2018-08-01] MEDS: HEPARIN 100 UNIT/ML 5ML FLUSH FLUSH PRN ×2 (05:57→09:44)
[2018-08-01] MEDS: FERROUS SULFATE 325 MG TAB PO SCH ×2 (05:57→18:51)
[2018-08-01] MEDS: CEROVITE ADV FORMULA TAB PO SCH (08:52)
[2018-08-01] MEDS: FENOFIBRATE NANOCRYSTALLIZED 48 MG TABLET PO SCH (08:52)
[2018-08-01] MEDS: FAMOTIDINE 20 MG TAB PO SCH ×2 (08:52→21:03)
[2018-08-01] MEDS: GABAPENTIN 300 MG CAP PO SCH ×3 (08:52→21:03)
[2018-08-01] MEDS: PANTOprazole 40 MG TAB PO SCH ×2 (08:52→16:56)
[2018-08-01] MEDS: cloZAPine 100 MG TAB PO SCH ×2 (08:53→21:05)
[2018-08-01] MEDS: FOLIC ACID 1 MG TAB PO SCH (08:53)
[2018-08-01] MEDS: MIDODRINE HCL 10 MG TAB PO SCH ×3 (08:53→16:56)
[2018-08-01] MEDS: BuPROPion SR 100 MG TABCR PO SCH ×2 (08:53→21:03)
[2018-08-01] MEDS: VORTIOXETINE HYDROBROMIDE PO SCH (08:53)
[2018-08-01] MEDS: FLUTICASONE/UMECLIDIN/VILANTER INH SCH (08:58)
[2018-08-01] MEDS: CLOTRIMAZOLE 1% CR 15 GM TUBE EXT SCH ×2 (09:01→21:04)
[2018-08-01] MEDS: CALCITONIN SALMON NA 200 IU/AC 3.7 ML BTL SCH (09:01)
[2018-08-01] MEDS: CHOLECALCIFEROL PO SCH ×2 (09:02→21:04)
[2018-08-01] MEDS: PHYTONADIONE PO SCH ×2 (09:02→21:04)
[2018-08-01] MEDS: CALCIUM PO SCH ×2 (09:02→21:04)
[2018-08-01] MEDS: REXULTI 3 MG PO SCH (09:03)
[2018-08-01] MEDS: ACETAMINOPHEN W/CODEINE #3 1 TAB PO PRN ×2 (09:39→16:54)
--- NOTE | 2018-08-01 09:39 | Hospitalist Progress Note ---
Date of Service August 01, 2018 Assessment & Plan (1) Acute on chronic respiratory failure with hypoxia: (2) COPD exacerbation: (3) Pulmonary fibrosis: -Patient with history of COPD and pulmonary fibrosis on chronic O2 (6 L with exertion, 2 L at rest, 3 L at night) -Per EMS, patient was 70% on 6 L, patient also desaturated with ambulation in the ED; currently saturating well on 3 L at rest -CTA chest negative for PE, no signs of infiltrate or pneumonia -Recently, patient's chronic dose of prednisone has been being tapered off as an outpatient (patient currently taking 2.5 mg down from her previous 10 mg) - from decrease in Prednisone? -Continue Solu-Medrol, nebs q6h - today, on 3 L at rest O2 sat > 90% -Julia consulted Appreciate recommendations (4) Tachycardia: -Sinus tachycardia, likely secondary to nebulizer laser treatments - resolved (5) Depression: (6) Anxiety: (7) Schizophrenia: -Continue home meds; bupropion, clonazepam, clozapine, Rexulti, Trintellix (8) GERD (gastroesophageal reflux disease): -Continue PPI and H2 kerrie (9) Orthostatic hypotension: -BP stable, continue Midodrine (10) Chronic back pain: -Continue Tylenol #3 and gabapentin (11) DVT prophylaxis: -SQ Lovenox Subjective ff up for copd exacerbation seen resting in bed, comfortable States he feels improved compared to previous day No shortness of breath, less coughing No sputum Hip, shoulder, back pain adequately controlled with pain medicines No other symptoms Review of Systems Review of Systems: All systems reviewed & are unremarkable except as noted in HPI & below Physical Exam Physical Exam: General- oriented x 3, not in distress, speaks in sentences with no effort or accessory muscle use Eyes- anicteric Neck- no JVD Lungs-mild wheeze bilaterally, improving No crackles Heart- normal rate, regular rhythm; no murmurs Abdomen- normal bowel sounds, nondistended, soft, nontender Extremities- no pretibial edema, no calf tenderness Neuro- alert, oriented x 3; no gross focal neurologic deficits Skin- warm & dry Results & Data Vital Signs (Past 12 Hours) Vital Signs Temp Pulse Pulse Resp BP Pulse Ox 08/01/18 07:27 100 H 08/01/18 07:16 111 H 18 92 08/01/18 07:15 36.7 C 108 H 18 117/81 94 08/01/18 04:19 35.9 C L 88 22 124/85 97 08/01/18 01:51 84 16 98 08/01/18 00:06 91 07/31/18 23:54 35.8 C L 89 22 135/98 82 L 07/31/18 23:53 85 07/31/18 22:07 83 16 95 (1) Schizophrenia Schizophrenia type: unspecified Qualified Code(s): F20.9 - Schizophrenia, unspecified
[2018-08-01] MEDS: KETOROLAC TROMETHAMINE 15 MG/ML VIAL IV PRN (16:54)
--- NOTE | 2018-08-01 17:34 | Progress Note ---
DATE: 08/01/2018 TIME: 4:30 p.m. SUBJECTIVE: The patient continues to feel short of breath. She states she is about the same as yesterday. She is still short of breath with any exertion, but fairly comfortable at rest. She is coughing, but not bringing up any mucus. OBJECTIVE: GENERAL: The patient appeared comfortable at rest. VITAL SIGNS: Temperature is 36.6. There have been no fevers since admission. HEART: Heart rate elevated at 112 per minute. There are extrasystoles heard. It appears the underlying rhythm is sinus tach. Blood pressure 142/75. LUNGS: Lung nunes posteriorly revealed diffuse dry rales. She also has wheezes heard on expiration. Saturation was 89% on 2 liters at the time of my exam. They had recorded a saturation of 82% last evening shortly before midnight. It is unknown what oxygen she was on at that time. Reportedly, she tolerated BiPAP last evening. I am not sure how long she kept it on, however. ABDOMEN: Soft. Bowel sounds present. EXTREMITIES: Show no change in the bruising noted previously. It appears no labs were done today. IMPRESSIONS: 1. Acute on chronic respiratory failure with hypoxia. 2. Exacerbation of pulmonary fibrosis. 3. Wheezes noted ? suggest obstructive lung disease. COMMENTS AND RECOMMENDATIONS: The patient is still on methylprednisolone 40 mg IV q. 8 hours. Would continue that in light of her lack of improvement. I am surprised that her oxygenation has not improved. She is on levalbuterol every 6 hours. She is on ipratropium every 6 hours. I would continue these measures. She is on Trilogy and I would continue that.
[2018-08-01] MEDS: MONTELUKAST SODIUM 10 MG TABLET PO SCH (21:03)
[2018-08-01] MEDS: ENOXAPARIN INJ 40 MG/0.4 ML SYR SQ SCH (21:05)
[2018-08-02] MEDS: methylPREDNISolone 40 MG in SYRINGE 0 ML IV SCH ×2 (01:26→08:11)
[2018-08-02] MEDS: IPRATROPIUM BROMIDE NEB SOLN 0.02% 2.5 ML VIAL INH SCH ×4 (01:37→19:04)
[2018-08-02] MEDS: LEVALBUTEROL 1.25MG/0.5ML NEB INH SCH ×4 (01:37→19:04)
[2018-08-02] MEDS: FERROUS SULFATE 325 MG TAB PO SCH ×2 (05:14→17:32)
[2018-08-02] MEDS: CEROVITE ADV FORMULA TAB PO SCH (08:12)
[2018-08-02] MEDS: FAMOTIDINE 20 MG TAB PO SCH ×2 (08:12→20:37)
[2018-08-02] MEDS: MIDODRINE HCL 10 MG TAB PO SCH ×3 (08:12→17:31)
[2018-08-02] MEDS: FOLIC ACID 1 MG TAB PO SCH (08:12)
[2018-08-02] MEDS: GABAPENTIN 300 MG CAP PO SCH ×3 (08:12→20:37)
[2018-08-02] MEDS: cloZAPine 100 MG TAB PO SCH ×2 (08:12→20:36)
[2018-08-02] MEDS: FENOFIBRATE NANOCRYSTALLIZED 48 MG TABLET PO SCH (08:12)
[2018-08-02] MEDS: REXULTI 3 MG PO SCH (08:13)
[2018-08-02] MEDS: BuPROPion SR 100 MG TABCR PO SCH ×2 (08:13→20:38)
[2018-08-02] MEDS: PANTOprazole 40 MG TAB PO SCH ×2 (08:13→17:31)
[2018-08-02] MEDS: CALCITONIN SALMON NA 200 IU/AC 3.7 ML BTL SCH (08:21)
[2018-08-02] MEDS: FLUTICASONE/UMECLIDIN/VILANTER INH SCH (08:21)
[2018-08-02] MEDS: CLOTRIMAZOLE 1% CR 15 GM TUBE EXT SCH ×2 (08:21→20:36)
[2018-08-02] MEDS: VORTIOXETINE HYDROBROMIDE PO SCH (08:22)
[2018-08-02] MEDS: CHOLECALCIFEROL PO SCH ×2 (08:22→20:39)
[2018-08-02] MEDS: PHYTONADIONE PO SCH ×2 (08:22→20:39)
[2018-08-02] MEDS: CALCIUM PO SCH ×2 (08:22→20:39)
[2018-08-02] MEDS: clonazePAM 0.5 MG TAB PO PRN ×2 (09:33→21:10)
--- NOTE | 2018-08-02 12:18 | Progress Note ---
DATE: 08/02/2018 PULMONARY PROGRESS NOTE TIME: 11:00 a.m. SUBJECTIVE: The patient is feeling somewhat better. She states she is a little less short of breath. She still does get panicky very easy. Nursing reports that when they were walking her to the bathroom, her knee seemed to gave way. They were there to help her and assist. The patient still seems to continually request that her oxygen be turned up. I think some of this is out of a panic sensation. She does clearly have significant disease, however. OBJECTIVE: GENERAL: The patient appears comfortable at rest. VITAL SIGNS: Weight is 100.4 kilograms. Heart rate 100 per minute. Rhythm regular. Blood pressure 132/80. LUNGS: Auscultation of the lung nunes reveals dry rales posteriorly bilaterally. She also has some wheezes heard on expiration bilaterally as well. She did not appear in distress at rest. Saturation at the time of my exam was 100%. She did have an OxyMask in place at 3 liters. EXTREMITIES: Showed no cyanosis, clubbing or edema. LABORATORY DATA: The patient appears to have not had any lab work thus far today. IMPRESSION: 1. Acute on chronic respiratory failure with hypoxia. 2. Exacerbation, severe pulmonary fibrosis. COMMENTS AND RECOMMENDATIONS: Would decrease the methylprednisolone to 20 mg IV q. 8 hours. Would continue otherwise. Suggest physical therapy to assist with patient ambulation with oxygen.
[2018-08-02] MEDS: ACETAMINOPHEN W/CODEINE #3 1 TAB PO PRN ×2 (12:37→19:14)
[2018-08-02 13:07] LABS: Appearance Urine Clear (Clear); Bacteria Urine Automated 1+ (Negative); Bilirubin Urine Negative (Negative); Blood Urine Negative (Negative); Cast Urine Automated 0 /lpf (0-5); Color Urine Yellow; Epithelial Cell Urine Auto 0-5 /lpf (0-5); Glucose Urine UA Negative (Negative); Ketones Urine Negative (Negative); Leukocyte Esterase Urine 1+ (Negative); Nitrite Urine Negative (Negative); Protein Urine Negative (Negative); RBC Urine Automated 0-4 /hpf (0-4); Specific Gravity Urine 1.011 (1.000-1.030); Urobilinogen Urine Negative (Negative); pH Urine 7.5 (4.5-7.5)
[2018-08-02] MEDS: methylPREDNISolone 20 MG in SYRINGE 0 ML IV SCH (15:46)
--- NOTE | 2018-08-02 18:38 | Hospitalist Progress Note ---
Date of Service August 02, 2018 Assessment & Plan (1) Acute on chronic respiratory failure with hypoxia: (2) COPD exacerbation: (3) Pulmonary fibrosis: -Patient with history of COPD and pulmonary fibrosis on chronic O2 (6 L with exertion, 2 L at rest, 3 L at night) -Per EMS, patient was 70% on 6 L, patient also desaturated with ambulation in the ED; currently saturating well on 3 L at rest -CTA chest negative for PE, no signs of infiltrate or pneumonia -Recently, patient's chronic dose of prednisone has been being tapered off as an outpatient (patient currently taking 2.5 mg down from her previous 10 mg) - from decrease in Prednisone? -Solu-Medrol tapered to 20 mg every 8 hours, continue nebs every 6 hours - today, remains on 3 L at rest O2 sat > 90% -Pulmonology service consulted Appreciate recommendations (4) Tachycardia: -Sinus tachycardia, likely secondary to nebulizer laser treatments - resolved (5) Depression: (6) Anxiety: (7) Schizophrenia: -Continue home meds; bupropion, clonazepam, clozapine, Rexulti, Trintellix (8) GERD (gastroesophageal reflux disease): -Continue PPI and H2 kerrie (9) Orthostatic hypotension: -BP stable, continue Midodrine (10) Chronic back pain: -Continue Tylenol #3 and gabapentin (11) DVT prophylaxis: -SQ Lovenox Subjective Follow-up for COPD exacerbation Seen resting in bed, comfortable Continues to feel improved Denies cough, shortness of breath Chronic pain well managed by analgesics Denies other symptoms States she is very interested to transition to rehab Review of Systems Review of Systems: All systems reviewed & are unremarkable except as noted in HPI & below Physical Exam Physical Exam: General- oriented x 3, not in distress, speaks in sentences with no effort or accessory muscle use Eyes- anicteric Neck- no JVD Lungs-mild intermittent wheezing bilaterally, no crackles Heart- normal rate, regular rhythm; no murmurs Abdomen- normal bowel sounds, nondistended, soft, nontender Extremities- no pretibial edema, no calf tenderness Neuro- alert, oriented x 3; no gross focal neurologic deficits Skin- warm & dry Results & Data Vital Signs (Past 12 Hours) Vital Signs Temp Pulse Pulse Resp BP BP Pulse Ox 08/02/18 16:00 106 H 08/02/18 15:50 36.5 C 104 H 24 103/73 97 08/02/18 14:18 93 08/02/18 13:10 94 08/02/18 11:09 36.5 C 95 H 22 122/84 94 08/02/18 10:11 86 08/02/18 07:31 36.8 C 99 H 21 132/80 96 08/02/18 07:12 87 22 91 08/02/18 07:03 81 (1) Schizophrenia Schizophrenia type: unspecified Qualified Code(s): F20.9 - Schizophrenia, unspecified
[2018-08-02] MEDS: MAGNESIUM HYDROXIDE SUSP 30 ML UDC PO PRN (18:43)
[2018-08-02] MEDS: ENOXAPARIN INJ 40 MG/0.4 ML SYR SQ SCH (20:37)
[2018-08-02] MEDS: MONTELUKAST SODIUM 10 MG TABLET PO SCH (20:38)
[2018-08-03] MEDS: methylPREDNISolone 20 MG in SYRINGE 0 ML IV SCH ×3 (00:11→07:40)
[2018-08-03] MEDS: LEVALBUTEROL 1.25MG/0.5ML NEB INH SCH ×4 (02:08→21:15)
[2018-08-03] MEDS: IPRATROPIUM BROMIDE NEB SOLN 0.02% 2.5 ML VIAL INH SCH ×4 (02:08→21:15)
[2018-08-03] MEDS ORDERED: NALOXONE HCL 0.4 MG/1 ML VIAL/CARP IV STA (02:14)
[2018-08-03 02:52] LABS: Hematocrit (blood only) 42.1 % (37-47); Hemoglobin 13.7 g/dL (12.0-16.0); Immature Granulocytes # (auto) 0.05 K/uL (0.00-0.02); Immature Granulocytes % (auto) 0.5 %; Lymphocytes # (auto) 0.75 K/uL (1.2-3.4); Lymphocytes % (auto) 6.8 %; Mean Corpuscular Hgb Conc 32.5 g/dL (32-36); Mean Corpuscular Volume 95.7 fL (80-100); Mean Platelet Volume 9.9 fL (7.4-10.4); Monocytes # (auto) 0.65 K/uL (0.11-0.59); Monocytes % (auto) 5.9 %; Neutrophils # (auto) 9.53 K/uL (1.4-6.5); Neutrophils % (auto) 86.8 %; Platelet Count 226 K/uL (130-400); RDW Coefficient of Variation 14.7 % (11.5-14.5); RDW Standard Deviation 51.6 fL (36.4-46.3); White Blood Count 10.98 K/uL (4.8-10.8)
[2018-08-03 02:58] LABS: HCO3 ABG 36 mmol/L (19-24); Oxygen Saturation ABG 87.5 % (90-95); PCO2 ABG 53 mmHg (35-46); PO2 ABG 54 mm/Hg (80-95); pH ABG 7.44 (7.35-7.45)
[2018-08-03 03:03] LABS: Partial Thromboplastin Ratio 0.9; Partial Thromboplastin Time 23.2 Seconds (21.0-31.0)
[2018-08-03 03:12] LABS: Allen Test Pos (Pos)
[2018-08-03 03:13] LABS: Albumin Level 3.5 gm/dl (3.4-5.0); BUN Creatinine Ratio 30.7 (10-20); Calcium 9.5 mg/dl (8.5-10.1); Creatinine Clr Calc Pharmacy 86.2 ml/min; Est GFR (African American) 91.4; Est GFR (Non-African American) 78.9; Magnesium 2.7 mg/dl (1.8-2.4); Potassium 4.8 mmol/L (3.5-5.1)
[2018-08-03 03:16] LABS: Albumin Globulin Ratio 0.8 (0.9-2); Bilirubin,Total 0.4 mg/dl (0.2-1); Globulin 4.4 gm/dl (2.5-4.0); Total Protein 7.9 gm/dl (6.4-8.2)
[2018-08-03] MEDS: FERROUS SULFATE 325 MG TAB PO SCH ×2 (05:01→17:34)
--- NOTE | 2018-08-03 06:31 | XRay Report ---
XR chest 1V portable CLINICAL HISTORY: 57 years-old Female presenting with low o2. TECHNIQUE: Portable upright AP view of the chest was obtained. COMPARISON: 07/30/2018. FINDINGS: Right internal jugular Mediport terminates in the lower SVC. Atherosclerosis of the aortic arch. Card iac silhouette borderline enlarged. Prominence of the main pulmonary artery. Low lung volumes unchang ed from prior. Patchy reticular and hazy opacity predominantly in the right upper and more diffusely in the left mid to lower lungs. No large effusion or pneumothorax. Old right rib fractures noted. Tho racic fusion hardware. Upper abdomen normal. IMPRESSION: 1. Stable appearance of the lungs with patchy right upper and left mid to lower lung infiltrates on background of chronic lung disease. 2. Unchanged low lung volumes. 3. Pulmonary artery hypertension. Electronically signed by: Ayden Palacios M.D. 08/03/2018 6:30 AM
[2018-08-03] MEDS: PANTOprazole 40 MG TAB PO SCH ×2 (07:43→17:35)
[2018-08-03] MEDS: MIDODRINE HCL 10 MG TAB PO SCH ×3 (07:43→17:35)
[2018-08-03] MEDS: FOLIC ACID 1 MG TAB PO SCH (08:35)
[2018-08-03] MEDS: BuPROPion SR 100 MG TABCR PO SCH ×2 (08:35→20:58)
[2018-08-03] MEDS: CEROVITE ADV FORMULA TAB PO SCH (08:35)
[2018-08-03] MEDS: cloZAPine 100 MG TAB PO SCH ×2 (08:35→21:01)
[2018-08-03] MEDS: FENOFIBRATE NANOCRYSTALLIZED 48 MG TABLET PO SCH (08:35)
[2018-08-03] MEDS: FAMOTIDINE 20 MG TAB PO SCH ×2 (08:36→21:00)
[2018-08-03] MEDS: GABAPENTIN 300 MG CAP PO SCH ×3 (08:36→20:58)
[2018-08-03] MEDS: CALCITONIN SALMON NA 200 IU/AC 3.7 ML BTL SCH (08:36)
[2018-08-03] MEDS: CLOTRIMAZOLE 1% CR 15 GM TUBE EXT SCH ×2 (08:37→20:56)
[2018-08-03] MEDS: REXULTI 3 MG PO SCH (08:37)
[2018-08-03] MEDS: PHYTONADIONE PO SCH ×2 (08:38→20:57)
[2018-08-03] MEDS: VORTIOXETINE HYDROBROMIDE PO SCH (08:38)
[2018-08-03] MEDS: CHOLECALCIFEROL PO SCH ×2 (08:38→20:57)
[2018-08-03] MEDS: CALCIUM PO SCH ×2 (08:38→20:57)
[2018-08-03] MEDS: FLUTICASONE/UMECLIDIN/VILANTER INH SCH (08:39)
[2018-08-03] MEDS: KETOROLAC TROMETHAMINE 15 MG/ML VIAL IV PRN (09:58)
[2018-08-03] MEDS ORDERED: cefTRIAXone SODIUM 2,000 MG in DEXTROSE 5% 50 ML IV SCH (10:00)
[2018-08-03] MEDS: HEPARIN 100 UNIT/ML 5ML FLUSH FLUSH PRN (11:13)
[2018-08-03] MEDS: clonazePAM 0.5 MG TAB PO PRN (13:32)
--- NOTE | 2018-08-03 14:31 | Progress Note ---
DATE: 08/03/2018 PULMONARY PROGRESS NOTE TIME: 1:50 p.m. SUBJECTIVE: The patient states she feels better today. She is not a good historian, however. Nursing staff tells me that at approximately 2 or 2:30 a.m., she could not be awakened. A blood gas was done acutely. This showed a pH of 7.44, pCO2 of 53, pO2 of 54 done on 2.5 liters. Apparently, the patient has been refusing BiPAP. She states that it is too noisy compared with her machine at home. It is not clear if the Narcan given to her resulted in her awakening or not. She indicates she feels that she is breathing somewhat better. OBJECTIVE: GENERAL: No distress at rest. VITAL SIGNS: Temperature 36.4. No fevers noted. Heart rate 100. Rhythm regular. Blood pressure 116/83. LUNGS: Lung nunes again reveal diffuse rales posteriorly. Faint wheeze was heard posteriorly, but the wheezing is less. Saturation 95% on 3 liters. EXTREMITIES: Showed mild nonpitting edema. LABORATORY DATA: White count today 10.98. Hemoglobin 13.7. Platelets 226,000. Electrolytes show sodium 141, potassium 4.8, chloride 105, bicarbonate 37. It is notable that the bicarbonate from 07/31/2018 was only 30. BUN 25, creatinine 0.82. The patient did have a chest x-ray done today. This reports low lung volumes, which is unchanged with patchy reticular and hazy opacities. I believe these are chronic. The patient had a urine culture done on 08/02/2018. This is showing gram-negative bacilli. This would be greater than 100,000 colony counts. May be notable that in May, she had pseudomonas. The final report from the current urine culture is obviously pending. She is on ceftriaxone; however, this would not typically cover pseudomonas. We will defer this to the hospitalist team. IMPRESSION: 1. Acute on chronic respiratory failure with hypoxia and hypercarbia. 2. Exacerbation pulmonary fibrosis. 3. Urinary tract infection - gram-negative bacilli. COMMENTS: I will change her steroids to oral. I have spoken with the patient about the need for her to wear BiPAP. I explained to her, she must do it in light of what happened overnight. She states she is agreeable for now. Curiously other hospital stay, she has been begging for BiPAP.
[2018-08-03] MEDS: ACETAMINOPHEN W/CODEINE #3 1 TAB PO PRN (15:04)
[2018-08-03] MEDS ORDERED: ACETAMINOPHEN W/CODEINE #3 1 TAB PO PRN (16:51)
[2018-08-03] MEDS ORDERED: PIPERACILL/TAZOBAC CONSULT ACTIVE PRN (18:33)
[2018-08-03] MEDS ORDERED: PIPERACILLIN/TAZOBACTAM 3.375 GM in DEXTROSE 5% 100 ML IV STA (18:37)
[2018-08-03] MEDS ORDERED: PIPERACILLIN/TAZOBACTAM 4.5 GM in DEXTROSE 5% 100 ML IV STA (18:38)
--- NOTE | 2018-08-03 18:39 | Hospitalist Progress Note ---
Date of Service August 03, 2018 Assessment & Plan (1) Acute on chronic respiratory failure with hypoxia: (2) COPD exacerbation: (3) Pulmonary fibrosis: -Patient with history of COPD and pulmonary fibrosis on chronic O2 (6 L with exertion, 2 L at rest, 3 L at night) -Per EMS, patient was 70% on 6 L, patient also desaturated with ambulation in the ED; currently saturating well on 3 L at rest -CTA chest negative for PE, no signs of infiltrate or pneumonia -Recently, patient's chronic dose of prednisone has been being tapered off as an outpatient (patient currently taking 2.5 mg down from her previous 10 mg) - from decrease in Prednisone? -Transition from Solu-Medrol to prednisone 20 mg p.o. daily today, continue nebs every 6 hours - today, remains on 3 L at rest O2 sat > 90% -Pulmonology service consulted Appreciate recommendations (4) Tachycardia: -Sinus tachycardia, likely secondary to nebulizer laser treatments - resolved (5) Depression: (6) Anxiety: (7) Schizophrenia: -Continue home meds; bupropion, clonazepam, clozapine, Rexulti, Trintellix (8) GERD (gastroesophageal reflux disease): -Continue PPI and H2 kerrie (9) Orthostatic hypotension: -BP stable, continue Midodrine (10) Chronic back pain: -Continue Tylenol #3 and gabapentin Discussed pain medication regimen with patient and her sister at the bedside Patient required Narcan overnight due to lethargy, will reduce the Tylenol #3 to twice daily, patient and her sister agrees with the pain management plan (11) DVT prophylaxis: -SQ Lovenox (12) UTI (urinary tract infection): Positive incontinence UA suggestive of UTI Urine culture showing gram-negative bacilli History of Pseudomonas UTI in May 2018 Patient remains afebrile We will change ceftriaxone to Zosyn for Pseudomonas coverage, pending final urine cultures Closely (13) Leg weakness: Muscle strength 5/5 on neurologic exam 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, UTI-patient reports patient develops leg weakness when she has UTI Will be transitioning Solu-Medrol to prednisone today Continue PT OT Anticipate discharge to rehab when medically stable Discussed plan of care with patient and her sister at the bedside at length and in detail next They are agreeable and comfortable with plan of care Subjective Follow-up for COPD exacerbation Resting in bed, comfortable on 3 L of nasal cannula next States that she feels about the same as yesterday Less dyspnea, no coughing or sputum Denies chest pain Denies abdominal pain, still has urinary incontinence Reports weakness of bilateral legs, more muscular weakness No other symptoms Review of Systems Review of Systems: All systems reviewed & are unremarkable except as noted in HPI & below Physical Exam Physical Exam: General- oriented x 3, not in distress, speaks in sentences with no effort or accessory muscle use Eyes- anicteric Neck- no JVD Lungs-very faint intermittent wheezing, no crackles, good air entry bilaterally Heart- normal rate, regular rhythm; no murmurs Abdomen- normal bowel sounds, nondistended, soft, nontender Extremities- no pretibial edema, no calf tenderness Neuro- alert, oriented x 3; no gross focal neurologic deficits Muscle strength 5/5 bilateral extremities, sensation 100% in all extremities Skin- warm & dry Results & Data Vital Signs (Past 12 Hours) Vital Signs Temp Pulse Pulse Resp BP Pulse Ox 08/03/18 15:44 36.4 C L 90 20 124/78 91 08/03/18 14:19 94 H 08/03/18 13:36 99 H 20 95 08/03/18 12:00 36.4 C L 88 18 116/83 99 08/03/18 07:16 86 18 91 08/03/18 07:00 36.8 C 76 79 20 102/70 92 (1) Schizophrenia Schizophrenia type: unspecified Qualified Code(s): F20.9 - Schizophrenia, unspecified
[2018-08-03] MEDS ORDERED: COUGH DROP (SUGAR FREE) LOZ 24 LOZ/1 BOX BUCCAL STA (18:58)
[2018-08-03] MEDS ORDERED: COUGH DROP (SUGAR FREE) LOZ 24 LOZ/1 BOX BUCCAL ONE (19:04)
[2018-08-03] MEDS: SIMETHICONE 80 MG CHEW PO PRN (19:52)
[2018-08-03] MEDS: ENOXAPARIN INJ 40 MG/0.4 ML SYR SQ SCH (20:57)
[2018-08-03] MEDS: MONTELUKAST SODIUM 10 MG TABLET PO SCH (21:00)
[2018-08-03] MEDS: PIPERACILLIN/TAZOBACTAM 4.5 GM in DEXTROSE 5% 100 ML IV SCH (23:21)
[2018-08-04] MEDS: LEVALBUTEROL 1.25MG/0.5ML NEB INH SCH ×4 (02:24→19:08)
[2018-08-04] MEDS: IPRATROPIUM BROMIDE NEB SOLN 0.02% 2.5 ML VIAL INH SCH ×4 (02:24→19:08)
[2018-08-04] MEDS: HEPARIN 100 UNIT/ML 5ML FLUSH FLUSH PRN ×2 (03:08→12:36)
[2018-08-04] MEDS: FERROUS SULFATE 325 MG TAB PO SCH ×2 (06:09→17:45)
[2018-08-04] MEDS: PIPERACILLIN/TAZOBACTAM 4.5 GM in DEXTROSE 5% 100 ML IV SCH (08:28)
[2018-08-04] MEDS: MIDODRINE HCL 10 MG TAB PO SCH ×3 (08:28→17:45)
[2018-08-04] MEDS: CALCIUM PO SCH ×2 (08:29→20:50)
[2018-08-04] MEDS: predniSONE 20 MG TAB PO SCH (08:29)
[2018-08-04] MEDS: PHYTONADIONE PO SCH ×2 (08:29→20:50)
[2018-08-04] MEDS: CHOLECALCIFEROL PO SCH ×2 (08:29→20:50)
[2018-08-04] MEDS: CEROVITE ADV FORMULA TAB PO SCH (08:30)
[2018-08-04] MEDS: VORTIOXETINE HYDROBROMIDE PO SCH (08:30)
[2018-08-04] MEDS: cloZAPine 100 MG TAB PO SCH ×2 (08:30→20:52)
[2018-08-04] MEDS: BuPROPion SR 100 MG TABCR PO SCH ×2 (08:30→20:51)
[2018-08-04] MEDS: PANTOprazole 40 MG TAB PO SCH ×2 (08:30→17:46)
[2018-08-04] MEDS: FOLIC ACID 1 MG TAB PO SCH (08:31)
[2018-08-04] MEDS: FENOFIBRATE NANOCRYSTALLIZED 48 MG TABLET PO SCH (08:31)
[2018-08-04] MEDS: CALCITONIN SALMON NA 200 IU/AC 3.7 ML BTL SCH (08:31)
[2018-08-04] MEDS: FAMOTIDINE 20 MG TAB PO SCH ×2 (08:31→20:52)
[2018-08-04] MEDS: SIMETHICONE 80 MG CHEW PO PRN (08:31)
[2018-08-04] MEDS: REXULTI 3 MG PO SCH (08:32)
[2018-08-04] MEDS: GABAPENTIN 300 MG CAP PO SCH ×3 (08:32→20:51)
[2018-08-04] MEDS: FLUTICASONE/UMECLIDIN/VILANTER INH SCH (08:33)
[2018-08-04] MEDS: CLOTRIMAZOLE 1% CR 15 GM TUBE EXT SCH ×2 (09:58→20:51)
[2018-08-04] MEDS: KETOROLAC TROMETHAMINE 15 MG/ML VIAL IV PRN ×2 (10:01→18:56)
[2018-08-04] MEDS: clonazePAM 0.5 MG TAB PO PRN (12:53)
[2018-08-04] MEDS: CIPROFLOXACIN 500 MG TAB PO SCH ×2 (15:16→20:53)
--- NOTE | 2018-08-04 15:28 | Hospitalist Progress Note ---
Date of Service August 04, 2018 Assessment & Plan (1) Acute on chronic respiratory failure with hypoxia: (2) COPD exacerbation: (3) Pulmonary fibrosis: -Patient with history of COPD and pulmonary fibrosis on chronic O2 (6 L with exertion, 2 L at rest, 3 L at night) -Per EMS, patient was 70% on 6 L, patient also desaturated with ambulation in the ED; currently saturating well on 3 L at rest -CTA chest negative for PE, no signs of infiltrate or pneumonia -Recently, patient's chronic dose of prednisone has been being tapered off as an outpatient (patient currently taking 2.5 mg down from her previous 10 mg) - from decrease in Prednisone? -Transition from Solu-Medrol to prednisone 40 mg p.o. daily , continue nebs every 6 hours - today, remains on 3 L at rest O2 sat > 90% -Status stable, seems to be returning to baseline -Pulmonology service consulted Appreciate recommendations (4) Tachycardia: -Sinus tachycardia, likely secondary to nebulizer laser treatments - resolved (5) Depression: (6) Anxiety: (7) Schizophrenia: -Continue home meds; bupropion, clonazepam, clozapine, Rexulti, Trintellix (8) GERD (gastroesophageal reflux disease): -Continue PPI and H2 kerrie (9) Orthostatic hypotension: -BP stable, continue Midodrine (10) Chronic back pain: -Continue Tylenol #3 and gabapentin Discussed pain medication regimen with patient and her sister at the bedside Patient required Narcan overnight due to lethargy, will reduce the Tylenol #3 to twice daily, patient and her sister agrees with the pain management plan (11) DVT prophylaxis: -SQ Lovenox (12) UTI (urinary tract infection): UTI, Pseudomonas, recurrence Urine culture for Pseudomonas, pansensitive History of Pseudomonas UTI in May 2018 Urinary incontinence resolving, afebrile, denies urinary symptoms today Transition to ciprofloxacin 500 mg p.o. 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, UTI-patient reports patient develops leg weakness when she has UTI Improving Continue PT OT Anticipate discharge to rehab when medically stable Subjective Follow-up for COPD exacerbation Seen resting in bed, on 3 L of nasal cannula, comfortable next In good spirits Denies shortness of breath, coughing, sputum Reports improving leg strength No abdominal pain, no dysuria, no incontinence Onset of symptoms Review of Systems Review of Systems: All systems reviewed & are unremarkable except as noted in HPI & below Physical Exam Physical Exam: General- oriented x 3, not in distress, speaks in sentences with no effort or accessory muscle use Eyes- anicteric Neck- no JVD Lungs-mild rales bilaterally, no wheezing, good air entry bilaterally Heart- normal rate, regular rhythm; no murmurs Abdomen- normal bowel sounds, nondistended, soft, nontender Extremities- no pretibial edema, no calf tenderness Neuro- alert, oriented x 3; no gross focal neurologic deficits Skin- warm & dry Results & Data Vital Signs (Past 12 Hours) Vital Signs Temp Pulse Pulse Resp BP BP Pulse Ox 08/04/18 14:13 91 H 20 97 08/04/18 12:01 36.5 C 92 H 20 114/74 91 08/04/18 08:00 36.4 C L 89 20 125/87 92 08/04/18 07:42 94 08/04/18 07:00 92 H (1) Schizophrenia Schizophrenia type: unspecified Qualified Code(s): F20.9 - Schizophrenia, unspecified
[2018-08-04] MEDS: ENOXAPARIN INJ 40 MG/0.4 ML SYR SQ SCH (20:53)
[2018-08-04] MEDS: MONTELUKAST SODIUM 10 MG TABLET PO SCH (20:53)
[2018-08-05] MEDS: LEVALBUTEROL 1.25MG/0.5ML NEB INH SCH ×3 (02:09→14:17)
[2018-08-05] MEDS: IPRATROPIUM BROMIDE NEB SOLN 0.02% 2.5 ML VIAL INH SCH ×3 (02:11→14:17)
[2018-08-05] MEDS: FERROUS SULFATE 325 MG TAB PO SCH (05:49)
[2018-08-05] MEDS: HEPARIN 100 UNIT/ML 5ML FLUSH FLUSH PRN ×2 (06:20→09:15)
[2018-08-05 07:14] LABS: Est GFR (African American) 76.5
[2018-08-05] MEDS: CEROVITE ADV FORMULA TAB PO SCH (08:18)
[2018-08-05] MEDS: FAMOTIDINE 20 MG TAB PO SCH (08:18)
[2018-08-05] MEDS: MIDODRINE HCL 10 MG TAB PO SCH ×3 (08:18→16:22)
[2018-08-05] MEDS: FENOFIBRATE NANOCRYSTALLIZED 48 MG TABLET PO SCH (08:18)
[2018-08-05] MEDS: predniSONE 20 MG TAB PO SCH (08:19)
[2018-08-05] MEDS: BuPROPion SR 100 MG TABCR PO SCH (08:19)
[2018-08-05] MEDS: CIPROFLOXACIN 500 MG TAB PO SCH (08:19)
[2018-08-05] MEDS: CHOLECALCIFEROL PO SCH (08:19)
[2018-08-05] MEDS: GABAPENTIN 300 MG CAP PO SCH ×2 (08:19→13:55)
[2018-08-05] MEDS: cloZAPine 100 MG TAB PO SCH (08:19)
[2018-08-05] MEDS: PHYTONADIONE PO SCH (08:19)
[2018-08-05] MEDS: CALCIUM PO SCH (08:19)
[2018-08-05] MEDS: REXULTI 3 MG PO SCH (08:20)
[2018-08-05] MEDS: VORTIOXETINE HYDROBROMIDE PO SCH (08:20)
[2018-08-05] MEDS: CLOTRIMAZOLE 1% CR 15 GM TUBE EXT SCH (08:20)
[2018-08-05] MEDS: CALCITONIN SALMON NA 200 IU/AC 3.7 ML BTL SCH (08:21)
[2018-08-05] MEDS: FLUTICASONE/UMECLIDIN/VILANTER INH SCH (08:22)
[2018-08-05] MEDS: FOLIC ACID 1 MG TAB PO SCH (08:23)
[2018-08-05] MEDS: KETOROLAC TROMETHAMINE 15 MG/ML VIAL IV PRN (09:12)
[2018-08-05] MEDS: PANTOprazole 40 MG TAB PO SCH ×2 (11:52→16:22)
[2018-08-05] MEDS: clonazePAM 0.5 MG TAB PO PRN (14:20)
--- NOTE | 2018-08-05 14:26 | Hospitalist Progress Note ---
Date of Service August 05, 2018 Assessment & Plan (1) Acute on chronic respiratory failure with hypoxia: (2) COPD exacerbation: (3) Pulmonary fibrosis: -Patient with history of COPD and pulmonary fibrosis on chronic O2 (6 L with exertion, 2 L at rest, 3 L at night) -Per EMS, patient was 70% on 6 L, patient also desaturated with ambulation in the ED; currently saturating well on 3 L at rest -CTA chest negative for PE, no signs of infiltrate or pneumonia -Recently, patient's chronic dose of prednisone has been being tapered off as an outpatient (patient currently taking 2.5 mg down from her previous 10 mg) - 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 -Transitioned from Solu-Medrol to prednisone 40 mg p.o. daily , given nebs every 6 hours - weaned off from oxygen, remains on 3 L at rest O2 sat > 90% (baseline: uses 3 L at rest, 6 L with ambulation) -Pulmonology service consulted - discharge plan: Prednisone taper from 40mg, 30mg, etc. until back to 10mg indefinitely continue Allison sawant (4) UTI (urinary tract infection): UTI, Pseudomonas, recurrence Urine culture for Pseudomonas, pansensitive History of Pseudomonas UTI in May 2018 Urinary incontinence resolving, afebrile, denies urinary symptoms today Transition to ciprofloxacin 500 mg p.o. 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, UTI-patient reports patient develops leg weakness when she has UTI Improving Continue PT OT (6) Tachycardia: -Sinus tachycardia, likely secondary to nebulizer laser treatments - resolved (7) Depression: (8) Anxiety: (9) Schizophrenia: -Continue home meds; bupropion, clonazepam, clozapine, Rexulti, Trintellix (10) GERD (gastroesophageal reflux disease): -Continue PPI and H2 kerrie (11) Orthostatic hypotension: -BP stable, continue Midodrine (12) Chronic back pain: -Continue Tylenol #3 and gabapentin Discussed pain medication regimen with patient and her sister at the bedside avoid giving additional narcotics, patient at one point was lethargic and required Narcan (13) DVT prophylaxis: -SQ Lovenox given Disposition ff up with PCP 1 week after d/c from [facility] Subjective ff up for copd exacerbation seen resting in bed, comfortable states she feels fine overalll breathing is back to baseline denies cough, shortness of breath, sputum denies abdominal pain, dysuria, incontinence resolving leg weakness improving denies other symptoms states she is ready for d/c to Rehab when accepted Review of Systems Review of Systems: All systems reviewed & are unremarkable except as noted in HPI & below Physical Exam Physical Exam: General- oriented x 3, not in distress, speaks in sentences with no effort or accessory muscle use Eyes- anicteric Neck- no JVD Lungs- faint rales b/l bases, no wheezing Heart- normal rate, regular rhythm; no murmurs Abdomen- normal bowel sounds, nondistended, soft, nontender Extremities- no pretibial edema, no calf tenderness Neuro- alert, oriented x 3; no gross focal neurologic deficits Skin- warm & dry Results & Data Vital Signs (Past 12 Hours) Vital Signs Temp Pulse Pulse Resp BP BP Pulse Ox 08/05/18 11:24 36.4 C L 106 H 20 117/82 91 08/05/18 07:30 86 16 96 08/05/18 07:00 94 H 08/05/18 06:59 37.1 C 86 20 119/75 94 08/05/18 05:20 90 18 93 08/05/18 03:23 84 20 114/79 93 (1) Schizophrenia Schizophrenia type: unspecified Qualified Code(s): F20.9 - Schizophrenia, unspecified
--- NOTE | 2018-08-05 14:56 | Discharge Summary ---
Date of Service August 05, 2018 Admission HPI Per Admitting Provider 57-year-old female who presents the ED with shortness of breath. Patient was recently admitted to [facility] 06/26 through 06/29 for COPD exacerbation. At that time, patient was discharged on a prolonged prednisone taper. Patient previously had been taking prednisone 10 mg chronically and recently this was attempted to be tapered off by her outpatient registered physical therapist. Patient is currently taking 2.5 mg daily and is to stop in 4 days. Patient reports she developed shortness of breath yesterday. She was seen in the ED and was given albuterol treatment with improvement in her symptoms and was discharged back home. Patient reports her symptoms returned quickly today. She describes severe shortness of breath however no cough or sputum production. She denies fevers and chills. She reports a nonspecific intermittent chest pain that she has difficulty describing. She reports occasional lightheadedness and dizziness but denies any syncopal event. She denies abdominal pain, nausea, vomiting, diarrhea. No urinary symptoms. Per EMS, patient was saturating 70% on her chronic 6 L. Patient wears 6 L with ambulation, 2 L at rest, 3 L at bedtime. In the ED, she maintained good oxygen saturations on 3 L however did desaturate with ambulation. CTA chest negative for PE and other acute pulmonary findings. She was given IVF, IV Solu-Medrol, nebulizer treatment. Admission Exam Per Admitting Provider Constitutional: WD/WN, vitals as above Eyes: PERRL, conjunctivae normal, anicteric sclerae ENMT: Ears: no external ear abnormality Nose: no external nose abnormality Mouth: + edentulous Respiratory: no respiratory distress and + not able to speak in complete sentence (Mild conversational dyspnea noted) Auscultation: + diminished lung sounds (Poor air entry noted bilaterally) and + wheezes (End expiratory) Cardiovascular: Rate/Rhythm: regular rhythm and + tachycardic Vessels: normal peripheral pulses Extremities: no edema Gastrointestinal (Abdomen): normal bowel sounds, soft, nontender, no hepatosplenomegaly Musculoskeletal: no cyanosis or clubbing, extremities motor strength 5/5 Skin: + rash (Tinea versicolor appearing rash to the back) Skin warm and dry Neurologic: PERRL, EOMI, accommodation nl, no face palsy, no dysarthria Psychiatric: A+Ox3, euthymic affect Speech: + pressured speech Insight: + limited insight Principal Diagnosis COPD EXACERBATION, PSEUDOMONAS UTI Discharge Exam General- oriented x 3, not in distress, speaks in sentences with no effort or accessory muscle use Eyes- anicteric Neck- no JVD Lungs- faint rales b/l bases, no wheezing Heart- normal rate, regular rhythm; no murmurs Abdomen- normal bowel sounds, nondistended, soft, nontender Extremities- no pretibial edema, no calf tenderness Neuro- alert, oriented x 3; no gross focal neurologic deficits Skin- warm & dry Discharge Data Allergies Allergy/AdvReac Type Severity Reaction Status Date / Time hydroxyzine Allergy Unknown UNKNOWN Verified 07/30/18 16:18 fluphenazine AdvReac Intermediate confusion Verified 07/30/18 16:18 haloperidol AdvReac Intermediate "MAKES ME Verified 07/30/18 16:18 GO INTO BLACKOUT" hydrocodone AdvReac Intermediate DROWSY Verified 07/30/18 16:18 molindone AdvReac Intermediate PT FEELS Verified 07/30/18 16:18 LIKE SHES "JUMPING OUT OF HER SKIN" morphine AdvReac Intermediate DROWSY Verified 07/30/18 16:18 lithium AdvReac Mild "LEVEL CAN Verified 07/30/18 16:18 GET TOO HIGH" Consultations 07/30/18 19:10 ED Decision to Admit Stat 07/30/18 20:13 Consult Case Management - Discharge Planning Routine 07/31/18 09:31 Consult Pulmonology Routine Ordered Studies 07/30/18 17:22 CT angio chest PE protocol Stat CT ANGIOGRAPHY OF THE CHEST, PULMONARY EMBOLUS PROTOCOL CLINICAL HISTORY: Shortness of breath. Evaluate for pulmonary embolus. COMPARISON STUDY: Chest CT March 03, 2018. Chest radiograph July 30, 2018. TECHNIQUE: Following IV administration of 120 mL of Optiray-320, helical axial images of the chest were obtained utilizing the pulmonary embolus protocol. Maximal intensity projections and sagittal and coronal reformats were viewed on an independent 3D workstation. IV contrast was administered without complication. Automated exposure control was utilized for the study. A dose lowering technique was utilized adhering to the principles of ALARA. CT DOSE: 777.90 mGy.cm FINDINGS: No pulmonary emboli are identified. There is no evidence for thoracic aortic dissection. A right internal jugular [id number] is in place. The size the heart is normal. There is no pericardial effusion. Mildly enlarged mediastinal bilateral hilar lymph nodes are similar to CT of March 03, 2018. Index right hilar node on image 164 of 251 measures 2.3 x 1.4 cm. A trace right pleural effusion is unchanged. There is no pneumothorax or pleural effusion. Groundglass opacities with distortion and bronchiectasis and cystic change within the lungs is similar to exam of March 03, 2018. There is no superimposed consolidation. There is no pneumothorax. Postoperative/post traumatic findings within the thoracic spine are unchanged in appearance since prior CT. There is fatty infiltration of the liver. There are gallstones within the gallbladder. There is no pneumomediastinum. IMPRESSION: 1. No pulmonary emboli identified. 2. No change in appearance of the chest since CT of March 03, 2018. Stable mildly enlarged mediastinal and bilateral hilar lymph nodes which are indeterminate but may related to interstitial lung disease. 3. Groundglass opacities with distortion, bronchiectasis and cystic change within the lungs which represents interstitial lung disease. No change. 4. Postoperative findings within the thoracic spine, as described above. Hospital Course (1) Acute on chronic respiratory failure with hypoxia: (2) COPD exacerbation: (3) Pulmonary fibrosis: -Patient with history of COPD and pulmonary fibrosis on chronic O2 (6 L with exertion, 2 L at rest, 3 L at night) -Per EMS, patient was 70% on 6 L, patient also desaturated with ambulation in the ED; currently saturating well on 3 L at rest -CTA chest negative for PE, no signs of infiltrate or pneumonia -Recently, patient's chronic dose of prednisone has been being tapered off as an outpatient (patient currently taking 2.5 mg down from her previous 10 mg) - [employer] exacerbation likely from decrease in Prednisone? -Transitioned from Solu-Medrol to prednisone 40 mg p.o. daily , given nebs every 6 hours - weaned off from oxygen, remains on 3 L at rest O2 sat > 90% (baseline: uses 3 L at rest, 6 L with ambulation) -Pulmonology service consulted - discharge plan: Prednisone taper from 40mg, 30mg, etc. until back to 10mg indefinitely continue Trelegy ellipta - ff up with [facility] in 1-2 weeks ([facility]) (4) UTI (urinary tract infection): UTI, Pseudomonas, recurrence Urine culture for Pseudomonas, pansensitive History of Pseudomonas UTI in May 2018 Urinary incontinence resolving, afebrile, denies urinary symptoms today Transition to ciprofloxacin 500 mg p.o. 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, UTI-patient reports patient develops leg weakness when she has UTI Improving Continue PT OT (6) Tachycardia: -Sinus tachycardia, likely secondary to nebulizer laser treatments - resolved (7) Depression: (8) Anxiety: (9) Schizophrenia: -Continue home meds; bupropion, clonazepam, clozapine, Rexulti, Trintellix (10) GERD (gastroesophageal reflux disease): -Continue PPI and H2 kerrie (11) Orthostatic hypotension: -BP stable, continue Midodrine (12) Chronic back pain: -Continue Tylenol #3 and gabapentin Discussed pain medication regimen with patient and her sister at the bedside avoid giving additional narcotics, patient at one point was lethargic and required Narcan (13) DVT prophylaxis: -SQ Lovenox Disposition ff up with PCP 1 week after d/c from [facility] ff up with [facility] 1-2 weeks after d/c from [facility] Total Time Total Time Spent Total Time Spent (In Minutes): 45 minutes Discharge Plan Discharge Items Patient Disposition: Transfer Inpatient Rehab Fac Reason For Visit: COPD EXACERBATION Discharge Diagnosis: COPD EXACERBATION, PSEUDOMONAS UTI Discharge Goals: Diagnostic testing and Therapeutic intervention Activity: As commented below Activity Comment: ALWAYS WITH ASSISTANCE, CONTINUE PT/OT, FALL PRECAUTIONS Lifting: Wait until after follow-up appointment Exercise/Sports: Wait until after follow-up appointment Driving/Machine Use Comment: NO DRIVING Non-emergency contact: Primary Care Provider Call non-emergency contact if: you have any medication questions and you have a fever Follow-up/Referrals: Naveed Adam MD [Primary Care Provider] - Diet: Heart Healthy Addtl Provider Instructions: PLEASE REFER TO [facility] DISCHARGE SUMMARY FOR FURTHER DETAILS. Prescriptions: New ciprofloxacin HCl 500 mg Tablet 500 mg PO Q12 5 Days Qty: 10 RF: 0 enoxaparin 40 mg/0.4 mL Syringe 40 mg subcut Q24H 14 Days Qty: 5.6 RF: 2 prednisone 10 mg tablet 10 mg PO DAILY Qty: 30 RF: 2 Continued clozapine [Clozaril] 100 mg Tablet 100 mg PO BID RF: 0 famotidine [Pepcid] 20 mg Tablet 20 mg PO BID RF: 0 calcitonin (salmon) 200 unit/actuation [place],Non-Aerosol 1 spray Intranasal QAM RF: 0 ferrous sulfate [FerrouSul] 325 mg (65 mg iron) tablet 325 mg PO BIDM RF: 0 folic acid 1 mg Tablet 1 mg PO QAM RF: 0 montelukast [Singulair] 10 mg Tablet 10 mg PO HS RF: 0 albuterol sulfate [Ventolin HFA] 90 mcg/actuation Hfa Aerosol Inhaler 2 puff INHALATION Q6H PRN (Reason: Shortness Of Breath Or Wheezing) RF: 0 midodrine 10 mg Tablet 10 mg PO TIDM RF: 0 fenofibrate nanocrystallized [Tricor] 48 mg Tablet 48 mg PO QAM RF: 0 diclofenac sodium [Voltaren] 1 % Gel 4 g TOPICAL QID PRN (Reason: Pain) RF: 0 Trelegy Ellipta 100-62.5-25 mcg Blister With Device 1 inh INHALATION QAM RF: 0 pantoprazole [Protonix] 40 mg Tablet,Delayed Release (Dr/Ec) 40 mg PO BIDM RF: 0 magnesium hydroxide [Milk of Magnesia] 400 mg/5 mL Suspension 30 ml PO HS PRN (Reason: Constipation) RF: 0 acetaminophen-codeine 300-30 mg tablet 1 tab PO Q8H PRN (Reason: Pain) RF: 0 Rexulti 3 mg Tablet 3 mg PO QAM RF: 0 Trintellix 10 mg Tablet 10 mg PO DAILY RF: 0 albuterol sulfate 2.5 mg /3 mL (0.083 %) solution for nebulization 2.5 mg inhalation Q4H PRN (Reason: Shortness Of Breath) RF: 0 clonazepam 0.5 mg tablet 0.25 mg PO TID PRN (Reason: Anxiety) RF: 0 bupropion HCl 100 mg tablet sustained-release 12 hr 100 mg PO BID RF: 0 gabapentin 300 mg capsule 300 mg PO TID RF: 0 Centrum Silver 0.4-300-250 mg-mcg-mcg Tablet 1 tab PO QAM RF: 0 benzonatate [Tessalon Perles] 100 mg Capsule 100 mg PO TID PRN (Reason: Cough) RF: 0 calcium-vitamin D3-vitamin K 500 mg-1,000 unit-40 mcg Tablet,Chewable 1 tab PO BID RF: 0 Discontinued prednisone 10 mg tablet 2.5 mg PO DAILY RF: 0 Stand-Alone Forms: Count Includes [facility] Discharge Orders: Discharge Order (Routine); Ordered 08/05/18 Ordered By: Jose Alberto Diego Skilled Items Patient informed of condition?: Yes DNR: No Discharge Level of Care: Acute rehab Communicable Disease: No Discharge Prognosis: Stable Admission Data Admit Date/Time: 08/02/18 09:30 Attending Provider: Jose Alberto Diego Admit Provider: Ramon King Primary Care Provider: Naveed Adam Other Providers: Ramon King ; John Pettit Service: Telemetry Medical
[2018-08-05] MEDS: BENZONATATE 100 MG CAPSULE PO PRN (15:33)
== END 2018-08-05 17:30 | DRG 190 ==
LOC: ED 15:22 → 2N 15:22

== ENCOUNTER 2018-12-30 03:04 | Inpatient (IN) ==
[2018-12-30] MEDS ORDERED: ALBUT/IPRATROP 3MG/0.5MG NEB 3 ML VIAL NEB STA (03:16)
--- NOTE | 2018-12-30 03:20 | Emergency Department Note ---
ED Provider Note Name: VIVIEN RIVERS Age: 58 Arrives Via: Ambulance Informant: Patient CC: Shortness of breath HPI: 58F arrives for evaluation of shortness of breath. Patient with long history of COPD arrives for worsening shortness of breath this evening. Notes associated wheezing and feeling she wasn't getting enough oxygen. Admits mild cough over last few days. She used nebulizer with mild improvement and called 911. EMS note another neb given. Sats mid/low 90s en route. Patient states she feels much better now. No chest pain, nausea, vomiting, abdominal pain, back pain, headache, neck pain, fevers, chills, syncope, leg swelling, bruising, nor other symptoms. Symptoms not better nor worse with exertion. States similar to previous copd flares. She is chronically on 10mg Prednisone ROS: See above HPI for pertinent positives & negatives. A total of 10 systems reviewed and were otherwise negative. Past Medical History:See Below Past Surgical History:See Below Family History:See Below Social History:See Below Home Medications:See Below Allergies:See Below Vitals:BP 102/71, P 102, R 21, T 36.8, O2 94% on 4L NC (on this chronically) Physical Exam: GENERAL: Patient is chronically appearing and in no acute distress. EYES: No scleral icterus, unremarkable pupils. ENT: Mucous membranes moist, no nasal congestion. NECK: No masses appreciated, nomeningismus, trachea is midline. RESPIRATORY: No dyspnea. Mild diffuse wheezing. Periodic hacking cough. Equal bilaterally. No rhonchi. CARDIOVASCULAR: Regular rate and rhythm.No murmurs, rubs, gallops appreciated. GASTROINTESTINAL: Abdomen soft, non-tender, no peritonitis.Bowel sounds positive.No masses appreciated. BACK: No midline tenderness, no CVA tenderness EXTREMITIES: Normal motion all extremities, no cyanosis, mild edema bilateral lower legs NEUROLOGIC: Alert and oriented, no acute motor or sensory deficits, no focal weakness, cranial nerves grossly intact. SKIN: No rash, no jaundice, no diaphoresis. ED Course: Prior Medical Record, Triage/Nursing Notes, Medications, Allergies reviewed by Me Vital Signs: reviewed and remarkable for wnl Labs:Reviewed and remarkable for no significant abnormalities Interventions: Saline lock, duo Imaging:X ray results are stated below per my interpretation: Chest: 1 view: Diffuse fibrotic findings without acute lobar infiltrate nor effusion appreciated. Mildly decreased lung volumes compared to 11/29/18 [facility] Radiologist interpretation reviewed by me: CT PE - No acute findings though worsening fibrotic lung disease noted EKG:Per My Interpretation: Indication SHOB: Sinus Tach 103 bpm no ectopy no ischemia qtc 445. Similar to EKG 11/29/18 Consults:Dr King Reassessments/Times: Multiple evaluations patient continues to complain of shortness of breath and began complaining of entire thorax pain demanding pain medications. Blood pressure:Normal.No Referral necessary Disposition:Hospitalization Differentials:COPD, ACS, PE, Dissection, Pneumonia, anxiety amongst other pathologies. Medical Decision Making: Chronically unwell 58 yr old female arrives with shortness of breath. She initi ally states shortness of breath as only complaint starting this evening. During course of stay escalating complaints requesting pain medications. She has no findings other than mildly tachycardia and some mild wheezing which is improved with Duoneb. With continued symptoms and chest pain reported now felt no option but to CTA Chest given DVT history and tachycardia. CT PE negative other than f ibrosis. I can not find acute issue with patient but even after nebs she continues to state inability to breath. I will note her sats mid 90s on her reported 4L NC O2. No evidence sepsis. Chronically on steroids and without worse shob I do not see emergent indication for IV steroids. Given complexity of patient and her continues complaints I did ask hospitalist to evaluate patient for further input in this complex patient's care. Impression: Shortness of breath Ashu Almanzar MD Impression & Plan Shortness of breath Past Med/Surg History Social History Preferred Language: Urdu Communication Ability: Effective Visual Impairment: No Limitations Spares Scheduler Required: No Beliefs That Will Affect Care: None Current Living Situation: Family Current Living Situation Comment: Pt. lives with mother and sister. Feels Safe at Home: Yes Smoking Status: Former smoker Tobacco Type: cigarettes ; Second Hand Exposure: No ; Hx Alcohol Use: No Hx Substance Use: Yes substance use type: former substance user, marijuana, crack/cocaine and heroin Substance Use Type Other:: No longer Last Used Substance: Unknown Results & Data Vital Signs Vital Signs - 24 hr 12/30/18 03:14 12/30/18 03:35 11/04/19 03:53 Temperature 36.8 C Temperature Source Oral Sepsis Recent Fever Within 48 Hours No Sepsis New/Unexplained Change in Mental Status No Sepsis Action Taken by Nursing No Action Required Pulse Rate 102 H Pulse Rate [Apical] 103 H 107 H Pulse Rhythm Regular Pulse Rhythm [Apical] Regular Respiratory Rate 21 20 20 Respiratory Effort / Characteristics Short of Breath SOB on Exertion Spontaneous Non-Labored Spontaneous Respiratory Depth Shallow Normal Respiratory Pattern Regular Blood Pressure 102/71 Blood Pressure [Right Arm] 102/71 Blood Pressure Mean 81 Blood Pressure Mean [Right Arm] 81 Pulse Oximetry 94 95 94 Oxygen Delivery Method Nasal Cannula Nasal Cannula Nasal Cannula Oxygen Flow Rate 4 4 4 12/30/18 04:45 12/30/18 05:46 12/30/18 06:24 Temperature Temperature Source Sepsis Recent Fever Within 48 Hours Sepsis New/Unexplained Change in Mental Status Sepsis Action Taken by Nursing Pulse Rate Pulse Rate [Apical] 103 H 106 H 114 H Pulse Rhythm Pulse Rhythm [Apical] Regular Regular Regular Respiratory Rate 20 22 28 H Respiratory Effort / Characteristics Respiratory Depth Normal Shallow Shallow Respiratory Pattern Blood Pressure Blood Pressure [Right Arm] 130/101 H 106/73 116/85 Blood Pressure Mean Blood Pressure Mean [Right Arm] 110 84 95 Pulse Oximetry 93 93 93 Oxygen Delivery Method Nasal Cannula Room Air Nasal Cannula Oxygen Flow Rate 4 4 4 Laboratory Data Result diagrams: 12/30/18 03:25 12/30/18 03:25 Lab Results 12/30/18 12/30/18 12/30/18 Range/Units 03:25 03:25 03:42 WBC 9.33 (4.8-10.8) K/uL RBC 4.40 (4.2-5.4) M/uL Hgb 14.2 (12.0-16.0) g/dL Hct 42.4 (37-47) % MCV 96.4 (80-100) fL MCH 32.3 (25-34) pg MCHC 33.5 (32-36) g/dL RDW Std Deviation 47.4 H (36.4-46.3) fL RDW Coeff of Ivy 13.5 (11.5-14.5) % Plt Count 168 (130-400) K/uL MPV 10.2 (7.4-10.4) fL Immature Gran % (Auto) 0.8 % Neut % (Auto) 79.4 % Lymph % (Auto) 8.8 % Carver % (Auto) 9.9 % Eos % (Auto) 0.8 % Baso % (Auto) 0.3 % Immature Gran # (Auto) 0.07 H (0.00-0.02) K/uL Neut # (Auto) 7.42 H (1.4-6.5) K/uL Lymph # (Auto) 0.82 L (1.2-3.4) K/uL Carver # (Auto) 0.92 H (0.11-0.59) K/uL Eos # (Auto) 0.07 (0-0.5) K/uL Baso # (Auto) 0.03 (0-0.2) K/uL Sodium 142 (136-145) mmol/L Potassium 3.5 (3.5-5.1) mmol/L Chloride 107 (98-107) mmol/L Carbon Dioxide 30 (21-32) mmol/L Anion Gap 5.0 (3-11) BUN 20 H (7-18) mg/dl Creatinine 0.88 (0.6-1.2) mg/dl Est Cr Clr Drug Dosing 79.9 ml/min Est GFR ( Amer) 83.4 Est GFR (Non-Af Amer) 71.9 BUN/Creatinine Ratio 22.4 H (10-20) Glucose 115 H (70-99) mg/dl Calcium 8.4 L (8.5-10.1) mg/dl Troponin I < 0.015 (0-0.045) ng/ml NT-Pro-B Natriuret Pep 85 (0-900) pg/ml Specimen Hemolysis Influenza Type A Ag Neg for Influ A (Neg) Influenza Type B Ag Neg for Influ B (Neg) Administered Medications Ioversol (Optiray 320 125ml) 125 ml IV ONCE PRN PRN Reason: Interaction Checking Stop: 01/03/19 04:54 Last Admin: 12/30/18 04:56 Dose: 82 ml Documented by: [id number] Discontinued Medications Acetaminophen (Tylenol) 650 mg PO NOW STA Stop: 12/30/18 03:46 Last Admin: 12/30/18 03:53 Dose: 650 mg Documented by: [id number] Albuterol (Duoneb) 3 ml NEB NOW STA Stop: 12/30/18 03:17 Last Admin: 12/30/18 03:33 Dose: 3 ml Documented by: [id number] Morphine Sulfate (Morphine Sulfate) 3 mg IV NOW STA Stop: 12/30/18 06:54 Last Admin: 12/30/18 06:57 Dose: 3 mg Documented by: [id number] Medical Decision Making Laboratory Data Result diagrams: 12/30/18 03:25 12/30/18 03:25 Lab Results 12/30/18 12/30/18 12/30/18 Range/Units 03:25 03:25 03:42 WBC 9.33 (4.8-10.8) K/uL RBC 4.40 (4.2-5.4) M/uL Hgb 14.2 (12.0-16.0) g/dL Hct 42.4 (37-47) % MCV 96.4 (80-100) fL MCH 32.3 (25-34) pg MCHC 33.5 (32-36) g/dL RDW Std Deviation 47.4 H (36.4-46.3) fL RDW Coeff of Ivy 13.5 (11.5-14.5) % Plt Count 168 (130-400) K/uL MPV 10.2 (7.4-10.4) fL Immature Gran % (Auto) 0.8 % Neut % (Auto) 79.4 % Lymph % (Auto) 8.8 % Carver % (Auto) 9.9 % Eos % (Auto) 0.8 % Baso % (Auto) 0.3 % Immature Gran # (Auto) 0.07 H (0.00-0.02) K/uL Neut # (Auto) 7.42 H (1.4-6.5) K/uL Lymph # (Auto) 0.82 L (1.2-3.4) K/uL Carver # (Auto) 0.92 H (0.11-0.59) K/uL Eos # (Auto) 0.07 (0-0.5) K/uL Baso # (Auto) 0.03 (0-0.2) K/uL Sodium 142 (136-145) mmol/L Potassium 3.5 (3.5-5.1) mmol/L Chloride 107 (98-107) mmol/L Carbon Dioxide 30 (21-32) mmol/L Anion Gap 5.0 (3-11) BUN 20 H (7-18) mg/dl Creatinine 0.88 (0.6-1.2) mg/dl Est Cr Clr Drug Dosing 79.9 ml/min Est GFR ( Amer) 83.4 Est GFR (Non-Af Amer) 71.9 BUN/Creatinine Ratio 22.4 H (10-20) Glucose 115 H (70-99) mg/dl Calcium 8.4 L (8.5-10.1) mg/dl Troponin I < 0.015 (0-0.045) ng/ml NT-Pro-B Natriuret Pep 85 (0-900) pg/ml Specimen Hemolysis Influenza Type A Ag Neg for Influ A (Neg) Influenza Type B Ag Neg for Influ B (Neg) MDM Narrative Discharge Plan Visit Data Chief Complaint: Shortness of Breath/Dyspnea Stated Complaint: SHORT OF BREATH/CHEST PAIN Other Complaint: Chest Pain ED Provider: Ashu Almanzar Discharge Problem: Shortness of breath Patient Disposition: Being Evaluated by Hospitalist Forms Stand Alone Forms: Call Back Authorization, [facility] Prescriptions Prescriptions: No Action calcitonin (salmon) 200 unit/actuation [place],Non-Aerosol 1 spray Intranasal QAM RF: 0 ferrous sulfate [FerrouSul] 325 mg (65 mg iron) tablet 325 mg PO BIDM RF: 0 folic acid 1 mg Tablet 1 mg PO QAM RF: 0 montelukast [Singulair] 10 mg Tablet 10 mg PO HS RF: 0 albuterol sulfate [Ventolin HFA] 90 mcg/actuation Hfa Aerosol Inhaler 2 puff INHALATION Q6H PRN (Reason: Shortness Of Breath Or Wheezing) RF: 0 fenofibrate nanocrystallized [Tricor] 48 mg Tablet 48 mg PO QAM RF: 0 Trelegy Ellipta 100-62.5-25 mcg Blister With Device 1 inh INHALATION QAM RF: 0 pantoprazole [Protonix] 40 mg Tablet,Delayed Release (Dr/Ec) 40 mg PO BIDM RF: 0 magnesium hydroxide [Milk of Magnesia] 400 mg/5 mL Suspension 30 ml PO HS PRN (Reason: Constipation) RF: 0 Rexulti 3 mg Tablet 3 mg PO QAM RF: 0 Trintellix 10 mg Tablet 20 mg PO DAILY RF: 0 clonazepam 0.5 mg tablet 0.25 mg PO TID PRN (Reason: Panic Attack(S)) RF: 0 tramadol 50 mg tablet 50 mg PO TID PRN (Reason: Pain) RF: 0 docusate sodium 100 mg Capsule 100 mg PO BID RF: 0 clozapine 100 mg Tablet 100 mg PO BID RF: 0 gabapentin 100 mg Capsule 200 mg PO AMHS RF: 0 Januvia 100 mg Tablet 100 mg PO DAILY RF: 0 metoprolol tartrate 25 mg Tablet 12.5 mg PO BID RF: 0 ranitidine HCl 150 mg Tablet 150 mg PO BID RF: 0 cholecalciferol (vitamin D3) [Vitamin D3] 1,000 unit Capsule 1,000 unit PO DAILY RF: 0 acetaminophen [Tylenol Extra Strength] 500 mg Tablet 1,000 mg PO Q6H PRN (Reason: Pain) RF: 0 diclofenac sodium [Voltaren] 1 % Gel 2 g TOPICAL QID RF: 0 fluticasone propionate [Flonase Allergy Relief] 50 mcg/actuation [place],Suspension 2 spray INTRANASAL DAILY RF: 0 prednisone 20 mg tablet 20 mg PO UD RF: 0 albuterol sulfate 2.5 mg /3 mL (0.083 %) solution for nebulization 2.5 mg inhalation Q4H PRN (Reason: Shortness Of Breath) RF: 0 bupropion HCl 100 mg tablet sustained-release 12 hr 100 mg PO BID RF: 0 Centrum Silver 0.4-300-250 mg-mcg-mcg Tablet 1 tab PO QAM RF: 0 benzonatate [Tessalon Perles] 100 mg Capsule 100 mg PO TID PRN (Reason: Cough) RF: 0 calcium-vitamin D3-vitamin K 500 mg-1,000 unit-40 mcg Tablet,Chewable 1 tab PO BID RF: 0 Referrals Referrals: Naveed Adam MD [Primary Care Provider] -
[2018-12-30 03:43] LABS: Basophils # (auto) 0.03 K/uL (0-0.2); Basophils % (auto) 0.3 %; Eosinophils # (auto) 0.07 K/uL (0-0.5); Eosinophils % (auto) 0.8 %; Hematocrit (blood only) 42.4 % (37-47); Hemoglobin 14.2 g/dL (12.0-16.0); Immature Granulocytes # (auto) 0.07 K/uL (0.00-0.02); Immature Granulocytes % (auto) 0.8 %; Lymphocytes # (auto) 0.82 K/uL (1.2-3.4); Lymphocytes % (auto) 8.8 %; Mean Corpuscular Hemoglobin 32.3 pg (25-34); Mean Corpuscular Hgb Conc 33.5 g/dL (32-36); Mean Corpuscular Volume 96.4 fL (80-100); Mean Platelet Volume 10.2 fL (7.4-10.4); Monocytes # (auto) 0.92 K/uL (0.11-0.59); Monocytes % (auto) 9.9 %; Neutrophils # (auto) 7.42 K/uL (1.4-6.5); Neutrophils % (auto) 79.4 %; Platelet Count 168 K/uL (130-400); RDW Coefficient of Variation 13.5 % (11.5-14.5); RDW Standard Deviation 47.4 fL (36.4-46.3); White Blood Count 9.33 K/uL (4.8-10.8)
[2018-12-30] MEDS ORDERED: ACETAMINOPHEN 325 MG TAB PO STA (03:45)
[2018-12-30 04:04] LABS: BUN Creatinine Ratio 22.4 (10-20); Blood Urea Nitrogen 20 mg/dl (7-18); Calcium 8.4 mg/dl (8.5-10.1); Carbon Dioxide 30 mmol/L (21-32); Chloride 107 mmol/L (98-107); Creatinine Clr Calc Pharmacy 79.9 ml/min; Est GFR (African American) 83.4; Est GFR (Non-African American) 71.9; Glucose 115 mg/dl (70-99); NT Pro B Type Natriuretic Pept 85 pg/ml (0-900); Potassium 3.5 mmol/L (3.5-5.1); Sodium 142 mmol/L (136-145); Troponin I < 0.015 ng/ml (0-0.045)
[2018-12-30] MEDS ORDERED: OPTIRAY 320 125ml IV PRN (04:55)
[2018-12-30] MEDS ORDERED: MoRPHine SULFATE 4 MG/ML 1 ML CARP\\VIAL IV STA (06:53)
--- NOTE | 2018-12-30 06:56 | CT Scan Report ---
CT angio chest PE protocol CT DOSE: 701.61 mGy.cm HISTORY: 58 years-old Female with PE. Acute chest pain with cough and shortness of breath TECHNIQUE: Multiple CTA images of the chest were obtained after the intravenous administration of 82 ml Optiray 320. Coronal and sagittal MIPS were obtained from the axial data set and were submitted f or review. All measurements were obtained according to NASCET criteria. A dose lowering technique wa s utilized adhering to the principles of ALARA. COMPARISON: Chest radiograph of same day, CTA chest 07/30/2018 FINDINGS: CTA: Heart is upper limits of normal in size. No pericardial effusion. Right IJ Bvhtel-l-Tdtx catheter dis bahman tip terminates in the right atrium. Calcified plaque of the thoracic aortic arch without aneurysm or dissection. Patency of the imaged great vessels. Dilated main pulmonary artery, 3.2 cm. No fillin g defects within the pulmonary arterial tree identified to suggest pulmonary thromboembolic disease. CT CHEST: Heterogeneous thyroid with 1.4 cm posterior left thyroid nodule. Mildly enlarged bilateral hilar lymp h nodes have slightly decreased size from comparison. No new or progressive adenopathy. No pneumothor ax or pleural effusion. Bilateral traction bronchiectasis with reticular and groundglass opacities an d bibasilar cystic change has not significantly changed from the July exam. There is however mildly i ncreased amount of groundglass opacities prominently throughout the left lung. There are no suspiciou s pulmonary nodules or masses identified. No overt pulmonary edema or focal airspace consolidation ty pical for pneumonia. Secretions are noted about the esophagus. Suggestion of small hiatal hernia. Mild distal esophageal w all thickening. Hepatic steatosis. No acute process of the imaged upper abdomen. Soft tissues are unr emarkable. Postoperative changes of the spine. Unchanged remote T4 compression deformity. Mild compre ssion deformity at T6 is also unchanged. Remote T8 burst fracture with unchanged retropulsion. Remote T10, T11 and T12 compression deformities with 7 mm retropulsion at T10 unchanged from the July exam. IMPRESSION: 1. No evidence of pulmonary thromboembolic disease. 2. Chronic interstitial lung disease. 3. No overt pulmonary edema or focal airspace consolidation typical for pneumonia. 4. Bilateral hilar adenopathy has mildly improved from 07/30/2018 and may be related to the chronic int erstitial lung disease. 5. Suggestion of pulmonary arterial hypertension. 6. Additional findings as above. The above report was generated using voice recognition software. It may contain grammatical, syntax o r spelling errors. Electronically signed by: Jeanmarie Sharp M.D. 12/30/2018 6:54 AM
--- NOTE | 2018-12-30 07:23 | XRay Report ---
XR chest 1V portable CLINICAL HISTORY: 58 years-old Female presenting with SOB. TECHNIQUE: Portable upright AP view of the chest was obtained. COMPARISON: 11/30/2018. FINDINGS: Right subclavian or internal jugular Mediport remains in place. Low lung volumes with prominence of t he cardiac silhouette. Atherosclerosis of the aortic arch. Diffuse heterogeneity of lung parenchyma w ith superimposed reticulonodular opacities more dense on the left. The opacities are grossly stable f rom prior exam. No large pneumothorax or pleural effusion. Degenerative changes and fusion hardware o f the thoracic spine. Upper abdomen normal. IMPRESSION: 1. Grossly stable appearance of chronic reticulonodular opacities related to chronic lung disease. N o convincing evidence of a superimposed focal infiltrate. 2. Low lung volumes. Electronically signed by: Ayden Palacios M.D. 12/30/2018 7:21 AM
--- NOTE | 2018-12-30 08:34 | History and Physical Report ---
DATE OF ADMISSION: 12/30/2018 CHIEF COMPLAINT: Shortness of breath and ongoing cough with yellowish phlegm since last 6 weeks. HISTORY OF PRESENT ILLNESS: This is a 58-year-old female with past medical history significant for COPD, interstitial lung fibrosis, restrictive lung disease due to kyphosis, chronic hypoxic respiratory failure on oxygen 6 liters with ambulation, 3 liters at rest and 4 liters while sleeping with BiPAP, history of aspiration, chronic hepatitis C, GERD, moderate malnutrition, esophageal diverticulum, esophageal dysmotility, urge incontinence, chronic kidney disease stage III, chronic hip pain,hx of discitis thoracolumbar region, history of alcohol dependence in remission, history of schizoaffective disorder, depression with anxiety, history of drug abuse in remission, history of DVT, history of smoking. The patient lives alone but has a sister and mother lives upstairs. She has history of multiple admissions in the past for COPD and interstitial lung disease. The patient states since last 6 weeks she is getting cough with yellowish phlegm and also shortness of breath on exertion. She is chronically on 10 mg prednisone increased to 20 mg and she was treated with antibiotics. She says she was treated with antibiotics as outpatient, but it is not helping. As per ER and epic she was treated with Omnicef and recently she was treated with Levaquin, but it is not helping and she wants to stay in the hospital for the antibiotics and to feel better. Denies any fever, chills. No chest pain, no nausea, no vomiting, no abdominal pain. Has some headache. No dizziness, no blurred vision, no earache. Has some runny nose, has some sore throat, no difficulty swallowing. Appetite is okay. Sleeping okay. No hematuria or burning micturition, no melena or hematochezia. No swelling in the legs. No rash. Currently resting comfortably and hemodynamically stable. ALLERGIES: HYDROXYZINE, FLUPHENAZINE, HALOPERIDOL, HYDROCODONE MOLINDONE, MORPHINE, LITHIUM. PAST MEDICAL HISTORY: As mentioned above. PAST SURGICAL HISTORY: Colonoscopy, hemilaminectomy of the cervical and lumbar region, laminectomy of posterior thoracic spine, vertebral corpectomy with a transthoracic approach, arthrodesis spine posterior thoracic. MEDICATIONS: The patient is on Tessalon Perles 100 mg p.o. t.i.d. p.r.n., tramadol 50 mg p.o. q. 6 hours p.r.n., guaifenesin 600 mg 2 tablets b.i.d., prednisone 20 mg p.o. daily, oxygen 3 liters at rest, 6 liters with ambulation, 4 liters while sleeping through BiPAP, Zantac 150 mg p.o. b.i.d., gabapentin 200 mg p.o. b.i.d., Lopressor 12.5 mg p.o. b.i.d., naloxone as needed, albuterol nebulization every 4 hours p.r.n., fenofibrate 48 mg p.o. daily, Januvia 100 mg p.o. daily, Colace 100 mg p.o. b.i.d., acetaminophen 1000 mg p.o. t.i.d., albuterol nebulization every 4 hours p.r.n., Brexiprazole 3 mg p.o. daily, multivitamins with minerals 1 tablet daily, Fleet enema p.r.n. Trintellix 20 mg daily, folic acid 1 mg p.o. daily, Protonix 40 mg p.o. b.i.d., calcitonin salmon 200 units 1 spray into each nostril daily, ferrous sulfate 325 mg p.o. daily, Trelegy Ellipta 100/62.5/25 mcg 1 puff daily, MiraLax 17 g p.o. daily, [place] nasal spray 1 spray into each nostril 3 times a day, Klonopin 0.5 mg p.o. t.i.d. p.r.n., clonazepam 100 mg p.o. b.i.d., milk of magnesia p.r.n., Singulair 10 mg p.o. daily, calcium plus vitamin D 1 tablet b.i.d., Reclast 5 mg by injection once every year, Wellbutrin-SR 100 mg p.o. daily, Flonase 2 sprays into each nostril daily. FAMILY HISTORY: Significant for father had double pneumonia, stroke. Mother had thyroid disorder. Maternal grandmother had lung cancer. SOCIAL HISTORY: Single, sister and mother lives upstairs. Former smoker, smoked 1 pack a day for 40 years, quit in 2012. Quit drinking in 05/2014. History of drug use in the past, clean for last 20 years. REVIEW OF SYMPTOMS: As per HPI. Rest of review of systems negative. PHYSICAL EXAMINATION: GENERAL: The patient is alert and oriented, not in acute distress. VITAL SIGNS: Temperature 36.8, pulse 114, respiratory rate 22, blood pressure 116/85, oxygen 93% on 4 liters. HEENT: No pallor, no icterus. Pupils equal, round and reactive to light. NECK: No JVD, no neck masses, no carotid bruits. CARDIOVASCULAR: S1, S2 heard, regular rate and rhythm. Tachycardia. No murmurs. RESPIRATORY SYSTEM: Normal AP diameter. No accessory muscle use. Mild occasional wheezing, no crackles. ABDOMEN: Soft, bowel sounds present, nontender. No distention. CENTRAL NERVOUS SYSTEM: Cranial nerves II-XII grossly intact. Nonfocal. EXTREMITIES: No edema, no erythema. LABORATORY DATA: WBC 9.3, hemoglobin 14.2, hematocrit 42.4, platelets 168. Sodium 142, potassium 3.5, chloride 107, bicarbonate 30, BUN 20, creatinine 0.8, serum glucose 115, calcium 8.4. Troponin I less than 0.015. BNP 85. Influenza A and B negative. Chest x-ray bilateral fibrotic changes. No significant change from previous chest x-ray. IMAGING: CTA of the chest pending. EKG: Sinus tachycardia at 103, no significant change from previous EKG. ASSESSMENT AND PLAN: The patient comes with acute bronchitis, possible chronic obstructive pulmonary disease exacerbation, who presents with cough with phlegm and shortness of breath with exertion, going on for last 6 weeks, had couple of courses of antibiotics as outpatient but was not resolved. 1. Acute bronchitis, possible chronic obstructive pulmonary disease exacerbation, history of fibrotic interstitial lung disease having shortness of breath and cough for the last 6 weeks, given Omnicef and also Levaquin, it was not helping, has some mild occasional wheezing on examination. Otherwise, labs are okay and she is saturating fine and hemodynamically stable. Because of the ongoing symptoms are not improving with outpatient treatment, we will admit to hospital, place on IV cefepime and p.o. azithromycin. Increase prednisone for 40mg daily for now and monitor. chronically on prednisone 10mg daily. Follow the blood cultures and sputum cultures. Continue home inhalers and nebs prn and also place on DuoNebs t.i.d. and monitor on med/surg tele. 2. History of diabetes. Hold home p.o. medication, placed on insulin sliding scale and follow the blood sugars while on increased dose of prednisone.. 3. History of dysphagia and aspiration Will get speech evaluation, will place on soft diet for now. 4. History of schizoaffective disorder. Continue her home medications. 5. Depression. Continue with home medications. 6. Blood pressure. Continue Lopressor. Monitor blood pressure. 7. Gastroesophageal reflux disease. Zantac and Protonix 8. History of orthostatic hypotension. We will monitor. currently stable. 9. History of chronic back pain, on gabapentin, Tylenol and tramadol. 10. Deep venous thrombosis prophylaxis. Heparin subcutaneously. 11. Disposition: Monitor in the med/surg tele. Level 1 full code. Code status DNR as per my discussion with the patient. CLARICE
[2018-12-30] MEDS ORDERED: NITROGLYCERIN SL 0.4 MG/TAB TAB SL PRN (09:40)
[2018-12-30] MEDS ORDERED: ALBUT/IPRATROP 3MG/0.5MG NEB 3 ML VIAL NEB SCH (09:40)
[2018-12-30] MEDS ORDERED: MAGNESIUM HYDROXIDE SUSP 30 ML UDC PO PRN (09:40)
[2018-12-30] MEDS ORDERED: ALBUTEROL HFA 8 GM INHALER INH PRN (09:40)
[2018-12-30] MEDS ORDERED: ACETAMINOPHEN 325 MG TAB PO PRN (09:40)
[2018-12-30] MEDS ORDERED: AZITHROMYCIN 250 MG TAB PO ONE (09:40)
[2018-12-30] MEDS ORDERED: ONDANSETRON INJ 2 MG/ML 2 ML VIAL IV PRN (09:40)
[2018-12-30] MEDS ORDERED: GABAPENTIN 100 MG CAP PO SCH (09:40)
[2018-12-30] MEDS ORDERED: clonazePAM 0.5 MG TAB PO PRN (09:40)
[2018-12-30] MEDS ORDERED: cloZAPine 100 MG TAB PO SCH (09:40)
[2018-12-30] MEDS ORDERED: BENZONATATE 100 MG CAPSULE PO PRN (09:40)
[2018-12-30] MEDS ORDERED: ALBUTEROL 0.083% NEBU SOLN 3 ML VIAL INH PRN (09:40)
[2018-12-30] MEDS ORDERED: CEFEPIME CONSULT ACTIVE PRN (09:56)
[2018-12-30] MEDS ORDERED: CEROVITE ADV FORMULA TAB PO SCH (10:30)
[2018-12-30] MEDS ORDERED: DEXTROSE 50% 50 ML SYRINGE IV PRN (10:45)
[2018-12-30] MEDS ORDERED: GLUCOSE 40% GEL 15 GM TUBE PO PRN (10:45)
[2018-12-30] MEDS ORDERED: GLUCOSE 10 TABS/TUBE PO PRN (10:45)
[2018-12-30] MEDS ORDERED: GLUCAGON FOR INJ 1 MG VIAL IM PRN (10:45)
[2018-12-30] MEDS ORDERED: CARBOHYDRATES FOR HYPOGLYCEMIA PO PRN (10:45)
[2018-12-30] MEDS: FENOFIBRATE NANOCRYSTALLIZED 48 MG TABLET PO SCH (11:14)
[2018-12-30] MEDS: FLUTICASONE PROPIONATE NA SPR 16 GM BTL SCH (11:14)
[2018-12-30] MEDS: CALCITONIN SALMON NA 200 IU/AC 3.7 ML BTL SCH (11:15)
[2018-12-30] MEDS: FOLIC ACID 1 MG TAB PO SCH (11:15)
[2018-12-30] MEDS: METOPROLOL TARTRATE 25 MG TAB PO SCH ×3 (11:15→22:33)
[2018-12-30] MEDS: predniSONE 20 MG TAB PO SCH (11:15)
[2018-12-30] MEDS: DICLOFENAC SOD 1% GEL 100 GM TUBE EXT SCH ×4 (11:16→21:04)
[2018-12-30] MEDS: PANTOprazole 40 MG TAB PO SCH ×2 (11:16→17:15)
[2018-12-30] MEDS: BuPROPion SR 100 MG TABCR PO SCH ×3 (11:16→22:33)
[2018-12-30] MEDS: CHOLECALCIFEROL 1,000 UNITS TAB PO SCH (11:16)
[2018-12-30] MEDS: FERROUS SULFATE 325 MG TAB PO SCH ×2 (11:17→17:15)
[2018-12-30] MEDS: INSULIN ASPART 100 UNITS/ML 3 ML PEN SC SCH ×4 (11:50→21:10)
[2018-12-30] MEDS: DOCUSATE SODIUM 100 MG CAP PO SCH ×3 (11:51→22:33)
[2018-12-30] MEDS: CEFEPIME 2,000 MG in SYRINGE 7.5 ML IV SCH ×2 (11:51→18:00)
[2018-12-30] MEDS: TRAMADOL HCL 50 MG TABLET PO PRN (11:51)
[2018-12-30] MEDS: HEPARIN 100 UNIT/ML 5ML FLUSH FLUSH PRN (11:51)
[2018-12-30] MEDS: CALCIUM 600MG + VIT D 400 IU TAB PO SCH ×3 (11:51→22:33)
[2018-12-30] MEDS: ALBUT/IPRATROP 3MG/0.5MG NEB 3 ML VIAL NEB SCH ×2 (13:07→19:09)
[2018-12-30] MEDS: ACETAMINOPHEN 500 MG TAB PO PRN (13:24)
[2018-12-30] MEDS: HEPARIN SOD 5,000 UNIT/0.5 ML VIAL SQ SCH ×2 (13:26→21:05)
[2018-12-30] MEDS: GABAPENTIN 100 MG CAP PO SCH (16:45)
[2018-12-30] MEDS: clonazePAM 0.5 MG TAB PO SCH (16:46)
[2018-12-30] MEDS: cloZAPine 100 MG TAB PO SCH (16:46)
[2018-12-30] MEDS: GUAIFENESIN/DEXTROM SYRUP 100MG/10MG 5ML UDC PO PRN (17:13)
[2018-12-30] MEDS: MONTELUKAST SODIUM 10 MG TABLET PO SCH ×2 (21:09→22:33)
[2018-12-30] MEDS: DOXYCYCLINE HYCLATE 100 MG CAP PO SCH ×2 (21:14→22:28)
[2018-12-31] MEDS: CEFEPIME 2,000 MG in SYRINGE 7.5 ML IV SCH ×3 (01:54→17:24)
[2018-12-31] MEDS: HEPARIN 100 UNIT/ML 5ML FLUSH FLUSH PRN (01:55)
[2018-12-31] MEDS: HEPARIN SOD 5,000 UNIT/0.5 ML VIAL SQ SCH ×3 (06:04→20:59)
[2018-12-31] MEDS: DOXYCYCLINE HYCLATE 100 MG CAP PO SCH ×2 (06:47→18:13)
[2018-12-31] MEDS: ALBUT/IPRATROP 3MG/0.5MG NEB 3 ML VIAL NEB SCH ×3 (07:13→19:11)
[2018-12-31] MEDS ORDERED: VORTIOXETINE HYDROBROMIDE PO SCH (09:00)
[2018-12-31] MEDS ORDERED: AZITHROMYCIN 250 MG TAB PO SCH (09:00)
[2018-12-31] MEDS: INSULIN ASPART 100 UNITS/ML 3 ML PEN SC SCH ×4 (09:06→21:01)
[2018-12-31] MEDS: clonazePAM 0.5 MG TAB PO SCH ×2 (09:07→15:59)
[2018-12-31] MEDS: GABAPENTIN 100 MG CAP PO SCH ×2 (09:07→15:56)
[2018-12-31] MEDS: cloZAPine 100 MG TAB PO SCH ×2 (09:07→15:56)
[2018-12-31] MEDS: DOCUSATE SODIUM 100 MG CAP PO SCH ×2 (09:08→21:00)
[2018-12-31] MEDS: FENOFIBRATE NANOCRYSTALLIZED 48 MG TABLET PO SCH (09:08)
[2018-12-31] MEDS: PANTOprazole 40 MG TAB PO SCH ×2 (09:08→15:56)
[2018-12-31] MEDS: FLUTICASONE PROPIONATE NA SPR 16 GM BTL SCH (09:08)
[2018-12-31] MEDS: CALCIUM 600MG + VIT D 400 IU TAB PO SCH ×2 (09:08→21:00)
[2018-12-31] MEDS: CALCITONIN SALMON NA 200 IU/AC 3.7 ML BTL SCH (09:09)
[2018-12-31] MEDS: METOPROLOL TARTRATE 25 MG TAB PO SCH ×2 (09:09→21:00)
[2018-12-31] MEDS: FOLIC ACID 1 MG TAB PO SCH (09:09)
[2018-12-31] MEDS: REXULTI PO SCH (09:10)
[2018-12-31] MEDS: predniSONE 20 MG TAB PO SCH (09:11)
[2018-12-31] MEDS: FLUTICASONE/UMECLIDIN/VILANTER INH SCH (09:11)
[2018-12-31] MEDS: DICLOFENAC SOD 1% GEL 100 GM TUBE EXT SCH ×4 (09:11→20:59)
[2018-12-31] MEDS: VORTIOXETINE HYDROBROMIDE PO SCH (09:11)
[2018-12-31] MEDS: CHOLECALCIFEROL 1,000 UNITS TAB PO SCH (09:11)
[2018-12-31] MEDS: BuPROPion SR 100 MG TABCR PO SCH ×2 (09:12→21:00)
[2018-12-31] MEDS: GUAIFENESIN/DEXTROM SYRUP 100MG/10MG 5ML UDC PO PRN ×2 (09:25→18:13)
[2018-12-31] MEDS: TRAMADOL HCL 50 MG TABLET PO PRN ×2 (10:45→19:28)
[2018-12-31] MEDS: ACETAMINOPHEN 500 MG TAB PO PRN ×2 (12:22→18:16)
--- NOTE | 2018-12-31 17:05 | XRay Report ---
XR sinus min 3V routine CLINICAL HISTORY: sinus congestion, cough COMPARISON STUDY: No previous studies for comparison. FINDINGS: Normal sinuses. All major sinuses are clear. No significant mucosal thickening. IMPRESSION: Normal sinus series. Electronically signed by: Manfred Noriega M.D. 12/31/2018 5:04 PM
[2018-12-31 20:07] LABS: Appearance Urine Clear (Clear); Bilirubin Urine Negative (Negative); Blood Urine Negative (Negative); Color Urine Yellow; Glucose Urine UA Negative (Negative); Ketones Urine Negative (Negative); Leukocyte Esterase Urine Negative (Negative); Nitrite Urine Negative (Negative); Protein Urine Negative (Negative); Specific Gravity Urine 1.007 (1.000-1.030); Urobilinogen Urine Negative (Negative); pH Urine 6.5 (4.5-7.5)
[2018-12-31] MEDS: MONTELUKAST SODIUM 10 MG TABLET PO SCH (21:01)
--- NOTE | 2018-12-31 22:48 | Hospitalist Progress Note ---
Date of Service December 31, 2018 Assessment & Plan (1) Acute on chronic respiratory failure with hypoxia: Chronic hypoxic respiratory failure on home O2. Underlying COPD and interstitial lung disease. Presented with productive cough, worsening dyspnea, tachypnea, tachycardia, and need for increased supplemental oxygen. Acute on chronic hypoxic respiratory failure. Titrate supplemental O2. Management of specific problems as discussed below. (2) COPD exacerbation: History of COPD and pulmonary fibrosis. Has had persistent cough over past several weeks, treated with courses of doxycycline, cefdinir, and 2 courses of levofloxacin. Sputum culture on 11/30/2018 grew pseudomonas aeruginosa, pansensitive to tested antibiotics. No infiltrates on chest x-ray. Repeat sputum culture pending. Receiving IV cefepime which will be continued pending culture results. Check sinus films to rule out sinusitis. (3) Pulmonary fibrosis: Continue steroids. (4) Diabetes mellitus type 2, controlled: History of diabetes mellitus type 2 managed with sitagliptin. Hemoglobin A1c was 6.5 on 10/24/2018 in clinic. Hold sitagliptin during hospital stay. Insulin coverage per protocol. Fasting blood sugar today = 104. (5) Schizophrenia: Continue usual medications. (6) Anxiety: Continue usual medications. (7) Depression: Continue usual meds. (8) Chronic pain: History of chronic pain. Has often received narcotics in the past, but with excessive sedation. Recently receiving tramadol for pain as outpatient. Having some chest wall pain with coughing, but does not seem to be in any signi ficant discomfort. Best to avoid narcotic analgesics unless absolutely necessary for severe/acute pain. (9) DVT prophylaxis: SCDs. Ambulate. (10) Discharge planning issues: Anticipated discharge to home. Family Medicine follow-up with Dr. Adam. Subjective Recheck for multiple. Patient seen in their room around 1520. Family visiting. Admitted with persistent cough and worsening SOB. 4 recent courses of antibiotics as outpatient- doxycycline, cefdinir, levofloxa rocio x 2. Still has cough productive of green sputum. + wheezing / SOB. Has some sinus congestion. Chest wall pain with coughing. Asking for codeine, but has had problems with excess sedation from narcotics in past. Review of Systems: Constitutional- no fever. Cardiac- no anginal symptoms. Pulmonary- as noted above. GI- no nausea, vomiting, diarrhea, melena, hematochezia. - dark urine, mild dysuria. Otherwise, as noted above. Physical Exam Constitutional: no acute distress ENMT: no oral thrush Respiratory: no respiratory distress Auscultation: + rales (scattered), + rhonchi and + wheezes Cardiovascular: Rate/Rhythm: regular rate and regular rhythm Heart Sounds: no gallop, no murmur and no cardiac rub Vessels: no JVD Extremities: no calf tenderness and no edema Gastrointestinal (Abdomen): normal bowel sounds, soft, nontender, no hepatosplenomegaly Skin: no rashes, warm and dry Psychiatric: Orientation: alert and oriented x 3 Results & Data Vital Signs (Past 12 Hours) Vital Signs Temp Pulse Pulse Resp BP BP Pulse Ox 12/31/18 22:35 82 20 99 12/31/18 20:05 36.4 C L 96 H 20 120/80 93 12/31/18 19:11 98 H 20 96 12/31/18 15:08 36.3 C L 97 H 18 116/76 98 12/31/18 13:38 87 20 98 12/31/18 11:44 36.7 C 99 H 20 131/84 90 Laboratory Results 12/30/18 03:25 12/30/18 03:25 Microbiology 12/31/18 07:30 Sputum, Expectorated Gram Stain - Final 12/30/18 10:32 Blood Aerobic Blood Culture - Preliminary No growth in Aerobic bottle after 24 hours. 12/30/18 10:32 Blood Anaerobic Blood Culture - Preliminary No growth in Anaerobic bottle after 24 hours. 12/30/18 10:23 Blood Aerobic Blood Culture - Preliminary No growth in Aerobic bottle after 24 hours. 12/30/18 10:23 Blood Anaerobic Blood Culture - Preliminary No growth in Anaerobic bottle after 24 hours. (1) Schizophrenia Schizophrenia type: unspecified Qualified Code(s): F20.9 - Schizophrenia, unspecified
[2019-01-01] MEDS: ACETAMINOPHEN 500 MG TAB PO PRN ×2 (00:09→14:14)
[2019-01-01] MEDS: GUAIFENESIN/DEXTROM SYRUP 100MG/10MG 5ML UDC PO PRN ×2 (01:13→10:19)
[2019-01-01] MEDS: CEFEPIME 2,000 MG in SYRINGE 7.5 ML IV SCH ×3 (01:45→18:37)
[2019-01-01] MEDS: TRAMADOL HCL 50 MG TABLET PO PRN ×2 (03:50→12:43)
[2019-01-01] MEDS: HEPARIN 100 UNIT/ML 5ML FLUSH FLUSH PRN ×2 (06:07→10:30)
[2019-01-01] MEDS: HEPARIN SOD 5,000 UNIT/0.5 ML VIAL SQ SCH ×3 (06:16→20:47)
[2019-01-01] MEDS: DOXYCYCLINE HYCLATE 100 MG CAP PO SCH ×2 (06:16→18:38)
[2019-01-01] MEDS: ALBUT/IPRATROP 3MG/0.5MG NEB 3 ML VIAL NEB SCH ×3 (07:04→19:32)
[2019-01-01 07:25] LABS: Est GFR (African American) 84.5; Est GFR (Non-African American) 72.9
[2019-01-01] MEDS: INSULIN ASPART 100 UNITS/ML 3 ML PEN SC SCH ×4 (08:58→20:48)
[2019-01-01] MEDS: clonazePAM 0.5 MG TAB PO SCH ×2 (09:03→16:15)
[2019-01-01] MEDS: cloZAPine 100 MG TAB PO SCH ×2 (09:03→16:15)
[2019-01-01] MEDS: GABAPENTIN 100 MG CAP PO SCH ×2 (09:03→16:15)
[2019-01-01] MEDS: CALCIUM 600MG + VIT D 400 IU TAB PO SCH ×2 (09:04→20:47)
[2019-01-01] MEDS: FLUTICASONE PROPIONATE NA SPR 16 GM BTL SCH (09:04)
[2019-01-01] MEDS: FENOFIBRATE NANOCRYSTALLIZED 48 MG TABLET PO SCH (09:04)
[2019-01-01] MEDS: DOCUSATE SODIUM 100 MG CAP PO SCH ×2 (09:04→20:47)
[2019-01-01] MEDS: PANTOprazole 40 MG TAB PO SCH ×2 (09:04→16:16)
[2019-01-01] MEDS: CALCITONIN SALMON NA 200 IU/AC 3.7 ML BTL SCH (09:05)
[2019-01-01] MEDS: METOPROLOL TARTRATE 25 MG TAB PO SCH ×2 (09:05→20:47)
[2019-01-01] MEDS: FOLIC ACID 1 MG TAB PO SCH (09:05)
[2019-01-01] MEDS: predniSONE 20 MG TAB PO SCH (09:06)
[2019-01-01] MEDS: FLUTICASONE/UMECLIDIN/VILANTER INH SCH (09:06)
[2019-01-01] MEDS: REXULTI PO SCH (09:06)
[2019-01-01] MEDS: VORTIOXETINE HYDROBROMIDE PO SCH (09:07)
[2019-01-01] MEDS: CHOLECALCIFEROL 1,000 UNITS TAB PO SCH (09:08)
[2019-01-01] MEDS: DICLOFENAC SOD 1% GEL 100 GM TUBE EXT SCH ×4 (09:08→20:47)
[2019-01-01] MEDS: BuPROPion SR 100 MG TABCR PO SCH ×2 (09:08→20:47)
--- NOTE | 2019-01-01 17:13 | Hospitalist Progress Note ---
Date of Service January 01, 2019 Assessment & Plan (1) Acute on chronic respiratory failure with hypoxia: Acute on chronic respiratory failure with hypoxia H/O COPD, interstitial lung disease, restrictive lung disease due to kyphosis Chronic oxygen dependency--3 L at rest, 4 L at bedtime, 6 L with activity at baseline Acute COPD exacerbation Failed multiple courses of p.o. antibiotics as outpatient-- courses of doxycycline, cefdinir, and 2 courses of levofloxacin. Sputum culture on 11/30/2018 grew pseudomonas aeruginosa, pansensitive to tested antibiotics. Sputum Cx on 12/31/18: Pulmonary report--light normal anupama Blood culture: No growth to date --Chest CTA:No evidence of pulmonary thromboembolic disease. Chronic interstitial lung disease. No overt pulmonary edema or focal airspace consolidation typical for pneumonia. Bilateral hilar adenopathy has mildly improved from 07/30/2018 and may be related to the chronic interstitial lung disease. Suggestion of pulmonary arterial hypertension. Additional findings as above. --Sinus X ray:Normal sinus series --Continue nebs, prednisone, supplemental oxygen as needed --On cefepime, doxycycline --Pulmonary Hygiene --BiPAP PRN --Needs follow up with Pulmonology (2) COPD exacerbation: Management as above (3) Pulmonary fibrosis: Continue steroids. (4) Diabetes mellitus type 2, controlled: On sitagliptin as outpatient Hemoglobin A1c was 6.5 on 10/24/2018 in clinic. Hold PO meds Continue Insulin therapy per protocol. Monitor BGs (5) Schizophrenia: Continue usual medications. (6) Anxiety: Continue home meds (7) Depression: Continue home meds (8) Chronic pain: H/O Chronic pain. Avoid narcotics due to excessive sedation in past and due to respiratory issues Received tramadol for pain as outpatient. Avoid narcotics as able (9) DVT prophylaxis: Heparin SQ (10) Discharge planning issues: PT/OT prior to discharge Subjective Patient is seen and examined at bedside Less cough, SOB today Complains of chronic pain No family at bedside Review of Systems Review of Systems: All systems reviewed & are unremarkable except as noted in HPI & below Physical Exam Physical Exam: Physical Exam: Vitals signs as noted above General Appearance:Chronic ill appearing, no apparent distress Head: normocephalic, Atraumatic Eyes: normal inspection, EOMI Neck: supple, Trachea midline Respiratory/Chest: Decreased breath sounds, B/L rhonchi, wheezes Cardiovascular: S1, S2, No murmur Abdomen/GI:Soft, Non tender, Bowel sounds present Extremities/Musculoskelatal:normal inspection, Trace B/L pedal edema Neurologic/Psych:AAOX3, grossly no focal neurological deficits Skin: normal color, warm Results & Data Vital Signs (Past 12 Hours) Vital Signs Temp Pulse Pulse Pulse Resp BP BP 01/01/19 15:30 36.5 C 92 H 19 111/75 01/01/19 13:15 88 01/01/19 11:59 36.7 C 82 18 94/67 L 01/01/19 07:37 37.1 C 87 20 109/76 01/01/19 07:11 84 01/01/19 07:06 82 18 Pulse Ox 01/01/19 15:30 94 01/01/19 13:15 94 01/01/19 11:59 92 01/01/19 07:37 93 01/01/19 07:11 01/01/19 07:06 98 Laboratory Results BMP 01/01/19 06:07 Creatinine 0.87 Urine 12/31/18 Range/Units 19:53 Urine Color Yellow Urine Appearance Clear (Clear) Urine pH 6.5 (4.5-7.5) Ur Specific [place] 1.007 (1.000-1.030) Urine Protein Negative (Negative) Urine Glucose (UA) Negative (Negative) (1) Schizophrenia Schizophrenia type: unspecified Qualified Code(s): F20.9 - Schizophrenia, unspecified
[2019-01-01] MEDS: MONTELUKAST SODIUM 10 MG TABLET PO SCH (20:47)
[2019-01-02] MEDS: CEFEPIME 2,000 MG in SYRINGE 7.5 ML IV SCH ×3 (01:30→18:17)
[2019-01-02 06:04] LABS: Hematocrit (blood only) 40.4 % (37-47); Hemoglobin 12.7 g/dL (12.0-16.0); Mean Corpuscular Hemoglobin 31.4 pg (25-34); Mean Corpuscular Hgb Conc 31.4 g/dL (32-36); Mean Corpuscular Volume 99.8 fL (80-100); Mean Platelet Volume 10.2 fL (7.4-10.4); Platelet Count 187 K/uL (130-400); RDW Standard Deviation 51.1 fL (36.4-46.3); Red Blood Count 4.05 M/uL (4.2-5.4); White Blood Count 9.98 K/uL (4.8-10.8)
[2019-01-02] MEDS: HEPARIN SOD 5,000 UNIT/0.5 ML VIAL SQ SCH ×3 (06:13→20:41)
[2019-01-02] MEDS: DOXYCYCLINE HYCLATE 100 MG CAP PO SCH ×2 (06:14→20:49)
[2019-01-02 06:40] LABS: BUN Creatinine Ratio 26.3 (10-20); Calcium 8.4 mg/dl (8.5-10.1); Creatinine Clr Calc Pharmacy 90.4 ml/min; Est GFR (African American) 99.5; Est GFR (Non-African American) 85.9; Potassium 3.9 mmol/L (3.5-5.1)
[2019-01-02] MEDS: ALBUT/IPRATROP 3MG/0.5MG NEB 3 ML VIAL NEB SCH ×4 (07:02→19:17)
[2019-01-02] MEDS: INSULIN ASPART 100 UNITS/ML 3 ML PEN SC SCH ×4 (08:30→20:45)
[2019-01-02] MEDS: cloZAPine 100 MG TAB PO SCH ×2 (08:31→16:29)
[2019-01-02] MEDS: clonazePAM 0.5 MG TAB PO SCH ×2 (08:31→16:27)
[2019-01-02] MEDS: FLUTICASONE PROPIONATE NA SPR 16 GM BTL SCH (08:32)
[2019-01-02] MEDS: DOCUSATE SODIUM 100 MG CAP PO SCH ×2 (08:32→20:44)
[2019-01-02] MEDS: CALCIUM 600MG + VIT D 400 IU TAB PO SCH ×2 (08:32→20:44)
[2019-01-02] MEDS: FENOFIBRATE NANOCRYSTALLIZED 48 MG TABLET PO SCH (08:32)
[2019-01-02] MEDS: GABAPENTIN 100 MG CAP PO SCH ×2 (08:32→16:28)
[2019-01-02] MEDS: PANTOprazole 40 MG TAB PO SCH ×2 (08:32→16:30)
[2019-01-02] MEDS: FOLIC ACID 1 MG TAB PO SCH (08:33)
[2019-01-02] MEDS: CALCITONIN SALMON NA 200 IU/AC 3.7 ML BTL SCH (08:33)
[2019-01-02] MEDS: METOPROLOL TARTRATE 25 MG TAB PO SCH ×2 (08:33→20:43)
[2019-01-02] MEDS: REXULTI PO SCH (08:34)
[2019-01-02] MEDS: predniSONE 20 MG TAB PO SCH (08:35)
[2019-01-02] MEDS: VORTIOXETINE HYDROBROMIDE PO SCH (08:36)
[2019-01-02] MEDS: FLUTICASONE/UMECLIDIN/VILANTER INH SCH (08:36)
[2019-01-02] MEDS: CHOLECALCIFEROL 1,000 UNITS TAB PO SCH (08:36)
[2019-01-02] MEDS: BuPROPion SR 100 MG TABCR PO SCH ×2 (08:36→20:42)
[2019-01-02] MEDS: DICLOFENAC SOD 1% GEL 100 GM TUBE EXT SCH ×4 (08:36→20:42)
[2019-01-02] MEDS: GUAIFENESIN/DEXTROM SYRUP 100MG/10MG 5ML UDC PO PRN (08:41)
[2019-01-02] MEDS: TRAMADOL HCL 50 MG TABLET PO PRN ×2 (09:31→16:27)
[2019-01-02] MEDS: HEPARIN 100 UNIT/ML 5ML FLUSH FLUSH PRN ×2 (10:42→12:32)
[2019-01-02] MEDS ORDERED: POLYETHYLENE (MIRALAX) 17 GM PACK PO PRN (10:47)
[2019-01-02] MEDS ORDERED: POLYETHYLENE (MIRALAX) 17 GM PACK PO ONE (10:48)
[2019-01-02] MEDS ORDERED: methylPREDNISolone 20 MG in SYRINGE 0 ML IV STA (11:09)
[2019-01-02] MEDS: ACETAMINOPHEN 500 MG TAB PO PRN (14:18)
--- NOTE | 2019-01-02 17:08 | Hospitalist Progress Note ---
Date of Service January 02, 2019 Assessment & Plan (1) Acute on chronic respiratory failure with hypoxia: Acute on chronic respiratory failure with hypoxia H/O COPD, interstitial lung disease, restrictive lung disease due to kyphosis Chronic oxygen dependency--3 L at rest, 4 L at bedtime, 6 L with activity at baseline Acute COPD exacerbation Failed multiple courses of p.o. antibiotics as outpatient-- courses of doxycycline, cefdinir, and 2 courses of levofloxacin. Sputum culture on 11/30/2018 grew pseudomonas aeruginosa, pansensitive to tested antibiotics. Sputum Cx on 12/31/18: Pulmonary report--light normal anupama Blood culture: No growth to date --Chest CTA:No evidence of pulmonary thromboembolic disease. Chronic interstitial lung disease. No overt pulmonary edema or focal airspace consolidation typical for pneumonia. Bilateral hilar adenopathy has mildly improved from 07/30/2018 and may be related to the chronic interstitial lung disease. Suggestion of pulmonary arterial hypertension. Additional findings as above. --Sinus X ray:Normal sinus series --Continue nebs, prednisone, supplemental oxygen as needed --On cefepime, doxycycline Day #4 --Pulmonary Hygiene --BiPAP PRN --Needs follow up with Pulmonology --Slowly improving --Given dose of IV Solu-Medrol today (2) COPD exacerbation: Management as above (3) Pulmonary fibrosis: Continue steroids. (4) Diabetes mellitus type 2, controlled: On sitagliptin as outpatient Hemoglobin A1c was 6.5 on 10/24/2018 in clinic. Hold PO meds Continue Insulin therapy per protocol. Monitor BGs (5) Schizophrenia: Continue usual medications. (6) Anxiety: Continue home meds (7) Depression: Continue home meds (8) Chronic pain: H/O Chronic pain. Avoid narcotics due to excessive sedation in past and due to respiratory issues Received tramadol for pain as outpatient. Avoid narcotics as able (9) DVT prophylaxis: Heparin SQ (10) Discharge planning issues: PT/OT Plan to discharge home with home health services Subjective Patient is seen and examined at bedside Reports shortness of breath on exertion Cough continues to improve Reports constipation Denies any chest pain, dizziness, nausea, abdominal pain Discussed with patient's family in detail today Review of Systems Review of Systems: All systems reviewed & are unremarkable except as noted in HPI & below Physical Exam Physical Exam: Physical Exam: Vitals signs as noted above General Appearance:Chronic ill appearing, no apparent distress Head: normocephalic, Atraumatic Eyes: normal inspection, EOMI Neck: supple, Trachea midline Respiratory/Chest: Decreased breath sounds, B/L rhonchi, wheezes Cardiovascular: S1, S2, No murmur Abdomen/GI:Soft, Non tender, Bowel sounds present Extremities/Musculoskelatal:normal inspection, Trace B/L pedal edema Neurologic/Psych:AAOX3, grossly no focal neurological deficits Skin: normal color, warm Results & Data Vital Signs (Past 12 Hours) Vital Signs Temp Pulse Pulse Resp BP BP Pulse Ox 01/02/19 15:53 36.6 C 83 20 104/70 97 01/02/19 15:30 89 18 95 01/02/19 15:00 36.6 C 91 H 20 132/82 94 01/02/19 13:06 93 01/02/19 11:30 36.6 C 77 18 95/68 L 97 01/02/19 08:00 80 01/02/19 07:29 36.5 C 80 18 114/76 98 01/02/19 07:02 88 18 90 Laboratory Results Short CBC 01/02/19 Range/Units 05:38 WBC 9.98 (4.8-10.8) K/uL Hgb 12.7 (12.0-16.0) g/dL Hct 40.4 (37-47) % Plt Count 187 (130-400) K/uL BMP 01/02/19 05:38 Sodium 145 Potassium 3.9 Chloride 113 H Carbon Dioxide 29 BUN 20 H Creatinine 0.76 Glucose 87 Calcium 8.4 L (1) Schizophrenia Schizophrenia type: unspecified Qualified Code(s): F20.9 - Schizophrenia, unspecified
[2019-01-02] MEDS: MONTELUKAST SODIUM 10 MG TABLET PO SCH (20:43)
[2019-01-03] MEDS: CEFEPIME 2,000 MG in SYRINGE 7.5 ML IV SCH ×3 (01:44→17:41)
[2019-01-03] MEDS: HEPARIN SOD 5,000 UNIT/0.5 ML VIAL SQ SCH ×3 (06:03→21:17)
[2019-01-03] MEDS: DOXYCYCLINE HYCLATE 100 MG CAP PO SCH ×2 (06:04→19:50)
[2019-01-03] MEDS: ALBUT/IPRATROP 3MG/0.5MG NEB 3 ML VIAL NEB SCH ×4 (07:12→19:07)
[2019-01-03 07:29] LABS: Creatinine Clr Calc Pharmacy 79.1 ml/min; Est GFR (African American) 84.5; Est GFR (Non-African American) 72.9
[2019-01-03] MEDS: TRAMADOL HCL 50 MG TABLET PO PRN ×2 (08:24→16:23)
[2019-01-03] MEDS: clonazePAM 0.5 MG TAB PO SCH ×2 (08:24→16:19)
[2019-01-03] MEDS: FENOFIBRATE NANOCRYSTALLIZED 48 MG TABLET PO SCH (08:28)
[2019-01-03] MEDS: FOLIC ACID 1 MG TAB PO SCH (08:28)
[2019-01-03] MEDS: METOPROLOL TARTRATE 25 MG TAB PO SCH ×2 (08:28→21:14)
[2019-01-03] MEDS: DOCUSATE SODIUM 100 MG CAP PO SCH ×2 (08:28→21:14)
[2019-01-03] MEDS: PANTOprazole 40 MG TAB PO SCH ×2 (08:28→16:22)
[2019-01-03] MEDS: cloZAPine 100 MG TAB PO SCH ×2 (08:28→16:19)
[2019-01-03] MEDS: CALCIUM 600MG + VIT D 400 IU TAB PO SCH ×2 (08:28→21:14)
[2019-01-03] MEDS: DICLOFENAC SOD 1% GEL 100 GM TUBE EXT SCH ×4 (08:29→21:12)
[2019-01-03] MEDS: BuPROPion SR 100 MG TABCR PO SCH ×2 (08:29→21:14)
[2019-01-03] MEDS: CHOLECALCIFEROL 1,000 UNITS TAB PO SCH (08:29)
[2019-01-03] MEDS: predniSONE 20 MG TAB PO SCH (08:29)
[2019-01-03] MEDS: VORTIOXETINE HYDROBROMIDE PO SCH (08:30)
[2019-01-03] MEDS: REXULTI PO SCH (08:30)
[2019-01-03] MEDS: FLUTICASONE PROPIONATE NA SPR 16 GM BTL SCH (08:31)
[2019-01-03] MEDS: FLUTICASONE/UMECLIDIN/VILANTER INH SCH (08:31)
[2019-01-03] MEDS: CALCITONIN SALMON NA 200 IU/AC 3.7 ML BTL SCH (08:31)
[2019-01-03] MEDS: INSULIN ASPART 100 UNITS/ML 3 ML PEN SC SCH ×4 (08:32→21:13)
[2019-01-03] MEDS: GABAPENTIN 100 MG CAP PO SCH ×2 (08:32→16:19)
[2019-01-03] MEDS: ACETAMINOPHEN 500 MG TAB PO PRN ×2 (09:35→16:23)
[2019-01-03] MEDS ORDERED: methylPREDNISolone 40 MG in SYRINGE 0 ML IV SCH (11:30)
[2019-01-03] MEDS: GUAIFENESIN/DEXTROM SYRUP 100MG/10MG 5ML UDC PO PRN (11:43)
[2019-01-03] MEDS: HEPARIN 100 UNIT/ML 5ML FLUSH FLUSH PRN (17:41)
--- NOTE | 2019-01-03 18:36 | Hospitalist Progress Note ---
Date of Service January 03, 2019 Assessment & Plan (1) Acute on chronic respiratory failure with hypoxia: Acute on chronic respiratory failure with hypoxia H/O COPD, interstitial lung disease, restrictive lung disease due to kyphosis, pulmonary fibrosis, PAH Chronic oxygen dependency--3 L at rest, 4 L at bedtime, 6 L with activity at baseline Acute COPD exacerbation Failed multiple courses of p.o. antibiotics as outpatient-- courses of doxycycline, cefdinir, and 2 courses of levofloxacin. Sputum culture on 11/30/2018 grew pseudomonas aeruginosa, pansensitive to tested antibiotics. Sputum Cx on 12/31/18: Pulmonary report--light normal anupama Blood culture: No growth to date --Chest CTA:No evidence of pulmonary thromboembolic disease. Chronic interstitial lung disease. No overt pulmonary edema or focal airspace consolidation typical for pneumonia. Bilateral hilar adenopathy has mildly improved from 07/30/2018 and may be related to the chronic interstitial lung disease. Suggestion of pulmonary arterial hypertension. Additional findings as above. --Sinus X ray:Normal sinus series --Continue nebs, prednisone, supplemental oxygen as needed --On cefepime, doxycycline Day #5 --Pulmonary Hygiene --BiPAP PRN --Needs follow up with Pulmonology --Clinically not much improved from yesterday --Continue current medication (2) COPD exacerbation: Management as above (3) Pulmonary fibrosis: Continue steroids. (4) Diabetes mellitus type 2, controlled: On sitagliptin as outpatient Hemoglobin A1c was 6.5 on 10/24/2018 in clinic. Hold PO meds Continue Insulin therapy per protocol. Monitor BGs (5) Schizophrenia: Continue usual medications. (6) Anxiety: Continue home meds (7) Depression: Continue home meds (8) Chronic pain: H/O Chronic pain. Avoid narcotics due to excessive sedation in past and due to respiratory issues Received tramadol for pain as outpatient. Avoid narcotics as able (9) DVT prophylaxis: Heparin SQ (10) Discharge planning issues: PT/OT Plan to discharge home with home health services Subjective Patient is seen and examined at bedside Complains of headache and ear today Shortness of breath about the same as yesterday Cough slightly improved Denies any chest pain, dizziness, nausea, abdominal pain Eager to get discharged Review of Systems Review of Systems: All systems reviewed & are unremarkable except as noted in HPI & below Physical Exam Physical Exam: Physical Exam: Vitals signs as noted above General Appearance:Chronic ill appearing, no apparent distress Head: normocephalic, Atraumatic Eyes: normal inspection, EOMI Neck: supple, Trachea midline Respiratory/Chest: Decreased coarse breath sounds, B/L rhonchi, wheezes Cardiovascular: S1, S2, No murmur Abdomen/GI:Soft, Non tender, Bowel sounds present Extremities/Musculoskelatal:normal inspection, Trace B/L pedal edema Neurologic/Psych:AAOX3, grossly no focal neurological deficits Skin: normal color, warm Results & Data Vital Signs (Past 12 Hours) Vital Signs Temp Pulse Pulse Resp BP BP Pulse Ox 01/03/19 15:25 96 H 18 98 01/03/19 15:07 36.5 C 86 18 120/84 96 01/03/19 11:59 36.3 C L 86 18 95/52 L 98 01/03/19 11:20 82 18 98 01/03/19 10:09 87 01/03/19 08:00 36.5 C 77 20 105/70 97 01/03/19 07:15 72 19 97 Laboratory Results [facility] 01/03/19 06:39 Creatinine 0.87 (1) Schizophrenia Schizophrenia type: unspecified Qualified Code(s): F20.9 - Schizophrenia, unspecified
[2019-01-03] MEDS: MONTELUKAST SODIUM 10 MG TABLET PO SCH (21:16)
[2019-01-04] MEDS: CEFEPIME 2,000 MG in SYRINGE 7.5 ML IV SCH ×3 (02:16→17:51)
[2019-01-04] MEDS: TRAMADOL HCL 50 MG TABLET PO PRN ×2 (05:00→12:29)
[2019-01-04] MEDS: HEPARIN 100 UNIT/ML 5ML FLUSH FLUSH PRN ×3 (05:46→17:51)
[2019-01-04] MEDS: HEPARIN SOD 5,000 UNIT/0.5 ML VIAL SQ SCH ×3 (06:16→20:49)
[2019-01-04] MEDS: DOXYCYCLINE HYCLATE 100 MG CAP PO SCH ×2 (06:17→19:47)
[2019-01-04] MEDS: GUAIFENESIN/DEXTROM SYRUP 100MG/10MG 5ML UDC PO PRN (06:20)
[2019-01-04 06:51] LABS: Est GFR (African American) 89.5; Est GFR (Non-African American) 77.2
[2019-01-04] MEDS: ALBUT/IPRATROP 3MG/0.5MG NEB 3 ML VIAL NEB SCH ×4 (07:20→19:07)
[2019-01-04] MEDS: ACETAMINOPHEN 500 MG TAB PO PRN ×2 (08:34→15:54)
[2019-01-04] MEDS: FOLIC ACID 1 MG TAB PO SCH (08:35)
[2019-01-04] MEDS: predniSONE 20 MG TAB PO SCH (08:35)
[2019-01-04] MEDS: PANTOprazole 40 MG TAB PO SCH ×2 (08:36→17:10)
[2019-01-04] MEDS: FENOFIBRATE NANOCRYSTALLIZED 48 MG TABLET PO SCH (08:36)
[2019-01-04] MEDS: DOCUSATE SODIUM 100 MG CAP PO SCH ×2 (08:36→20:51)
[2019-01-04] MEDS: CALCIUM 600MG + VIT D 400 IU TAB PO SCH ×2 (08:36→20:52)
[2019-01-04] MEDS: cloZAPine 100 MG TAB PO SCH ×2 (08:36→15:55)
[2019-01-04] MEDS: DICLOFENAC SOD 1% GEL 100 GM TUBE EXT SCH ×4 (08:36→20:52)
[2019-01-04] MEDS: CHOLECALCIFEROL 1,000 UNITS TAB PO SCH (08:36)
[2019-01-04] MEDS: BuPROPion SR 100 MG TABCR PO SCH ×2 (08:36→20:51)
[2019-01-04] MEDS: GABAPENTIN 100 MG CAP PO SCH ×2 (08:36→15:54)
[2019-01-04] MEDS: REXULTI PO SCH (08:37)
[2019-01-04] MEDS: VORTIOXETINE HYDROBROMIDE PO SCH (08:37)
[2019-01-04] MEDS: FLUTICASONE PROPIONATE NA SPR 16 GM BTL SCH (08:38)
[2019-01-04] MEDS: FLUTICASONE/UMECLIDIN/VILANTER INH SCH (08:38)
[2019-01-04] MEDS: CALCITONIN SALMON NA 200 IU/AC 3.7 ML BTL SCH (08:38)
[2019-01-04] MEDS: clonazePAM 0.5 MG TAB PO SCH ×2 (08:40→15:53)
[2019-01-04] MEDS: INSULIN ASPART 100 UNITS/ML 3 ML PEN SC SCH ×4 (08:41→20:52)
[2019-01-04] MEDS: METOPROLOL TARTRATE 25 MG TAB PO SCH ×2 (10:12→20:50)
--- NOTE | 2019-01-04 17:25 | Hospitalist Progress Note ---
Date of Service January 04, 2019 Assessment & Plan (1) Acute on chronic respiratory failure with hypoxia: Acute on chronic respiratory failure with hypoxia H/O COPD, interstitial lung disease, restrictive lung disease due to kyphosis, pulmonary fibrosis, PAH Chronic oxygen dependency--3 L at rest, 4 L at bedtime, 6 L with activity at baseline Acute COPD exacerbation Failed multiple courses of p.o. antibiotics as outpatient-- courses of doxycycline, cefdinir, and 2 courses of levofloxacin. Sputum culture on 11/30/2018 grew pseudomonas aeruginosa, pansensitive to tested antibiotics. Sputum Cx on 12/31/18: Pulmonary report--light normal anupama Blood culture: No growth to date --Chest CTA:No evidence of pulmonary thromboembolic disease. Chronic interstitial lung disease. No overt pulmonary edema or focal airspace consolidation typical for pneumonia. Bilateral hilar adenopathy has mildly improved from 07/30/2018 and may be related to the chronic interstitial lung disease. Suggestion of pulmonary arterial hypertension. Additional findings as above. --Sinus X ray:Normal sinus series --Continue nebs, prednisone, supplemental oxygen as needed --On cefepime, doxycycline Day #08/02 --Continue Pulmonary Hygiene --BiPAP PRN --Needs follow up with Pulmonology upon discharge --Subjectively feels better today --Saturating well on baseline supplemental oxygen (2) COPD exacerbation: Management as above (3) Pulmonary fibrosis: Continue steroids. (4) Diabetes mellitus type 2, controlled: On sitagliptin as outpatient Hemoglobin A1c was 6.5 on 10/24/2018 in clinic. Hold PO meds Continue Insulin therapy per protocol. Monitor BGs (5) Schizophrenia: Continue usual medications. (6) Anxiety: Continue home meds (7) Depression: Continue home meds (8) Chronic pain: H/O Chronic pain. Avoid narcotics due to excessive sedation in past and due to respiratory issues Received tramadol for pain as outpatient. Avoid narcotics as able (9) DVT prophylaxis: Heparin SQ (10) Discharge planning issues: PT/OT Plan to discharge home with home health services Subjective Patient is seen and examined at bedside No new complaints today Less cough, shortness of breath today Eager to get discharged Denies any chest pain, dizziness, nausea, abdominal pain Review of Systems Review of Systems: All systems reviewed & are unremarkable except as noted in HPI & below Physical Exam Physical Exam: Physical Exam: Vitals signs as noted above General Appearance:Chronic ill appearing, no apparent distress Head: normocephalic, Atraumatic Eyes: normal inspection, EOMI Neck: supple, Trachea midline Respiratory/Chest: Decreased coarse breath sounds, B/L scattered rhonchi Cardiovascular: S1, S2, No murmur Abdomen/GI:Soft, Non tender, Bowel sounds present Extremities/Musculoskelatal:normal inspection, Trace B/L pedal edema Neurologic/Psych:AAOX3, grossly no focal neurological deficits Skin: normal color, warm Results & Data Vital Signs (Past 12 Hours) Vital Signs Temp Pulse Resp BP Pulse Ox 01/04/19 15:00 36.7 C 91 H 18 109/71 95 01/04/19 14:44 89 18 97 01/04/19 12:00 36.5 C 99 H 20 104/67 93 01/04/19 11:00 99 H 16 96 01/04/19 07:23 72 16 98 01/04/19 07:22 36.4 C L 91 H 22 120/[address] [facility] 01/04/19 05:46 Creatinine 0.83 (1) Schizophrenia Schizophrenia type: unspecified Qualified Code(s): F20.9 - Schizophrenia, unspecified
[2019-01-04] MEDS: MONTELUKAST SODIUM 10 MG TABLET PO SCH (20:51)
[2019-01-05] MEDS: HEPARIN 100 UNIT/ML 5ML FLUSH FLUSH PRN ×3 (02:08→10:50)
[2019-01-05] MEDS: CEFEPIME 2,000 MG in SYRINGE 7.5 ML IV SCH ×2 (02:09→10:50)
[2019-01-05] MEDS: TRAMADOL HCL 50 MG TABLET PO PRN ×2 (05:52→14:01)
[2019-01-05] MEDS: HEPARIN SOD 5,000 UNIT/0.5 ML VIAL SQ SCH ×2 (05:52→14:02)
[2019-01-05] MEDS: DOXYCYCLINE HYCLATE 100 MG CAP PO SCH (06:12)
[2019-01-05 06:24] LABS: Hemoglobin 13.4 g/dL (12.0-16.0); Mean Corpuscular Hemoglobin 31.5 pg (25-34); Mean Corpuscular Hgb Conc 31.9 g/dL (32-36); Mean Corpuscular Volume 98.8 fL (80-100); Mean Platelet Volume 10.5 fL (7.4-10.4); Platelet Count 191 K/uL (130-400); RDW Coefficient of Variation 14.2 % (11.5-14.5); RDW Standard Deviation 50.4 fL (36.4-46.3); Red Blood Count 4.25 M/uL (4.2-5.4); White Blood Count 12.94 K/uL (4.8-10.8)
[2019-01-05] MEDS: ALBUT/IPRATROP 3MG/0.5MG NEB 3 ML VIAL NEB SCH ×2 (07:10→10:40)
[2019-01-05 08:00] VITALS: BP 115/74; TEMP 96.8
[2019-01-05] MEDS: INSULIN ASPART 100 UNITS/ML 3 ML PEN SC SCH ×2 (08:56→12:24)
[2019-01-05] MEDS: clonazePAM 0.5 MG TAB PO SCH (08:58)
[2019-01-05] MEDS: predniSONE 20 MG TAB PO SCH (08:59)
[2019-01-05] MEDS: ACETAMINOPHEN 500 MG TAB PO PRN (08:59)
[2019-01-05] MEDS: BuPROPion SR 100 MG TABCR PO SCH (09:00)
[2019-01-05] MEDS: CHOLECALCIFEROL 1,000 UNITS TAB PO SCH (09:00)
[2019-01-05] MEDS: CALCIUM 600MG + VIT D 400 IU TAB PO SCH (09:00)
[2019-01-05] MEDS: METOPROLOL TARTRATE 25 MG TAB PO SCH (09:00)
[2019-01-05] MEDS: PANTOprazole 40 MG TAB PO SCH (09:00)
[2019-01-05] MEDS: cloZAPine 100 MG TAB PO SCH (09:00)
[2019-01-05] MEDS: FOLIC ACID 1 MG TAB PO SCH (09:00)
[2019-01-05] MEDS: DOCUSATE SODIUM 100 MG CAP PO SCH (09:00)
[2019-01-05] MEDS: CALCITONIN SALMON NA 200 IU/AC 3.7 ML BTL SCH (09:01)
[2019-01-05] MEDS: GABAPENTIN 100 MG CAP PO SCH (09:01)
[2019-01-05] MEDS: FENOFIBRATE NANOCRYSTALLIZED 48 MG TABLET PO SCH (09:01)
[2019-01-05] MEDS: FLUTICASONE PROPIONATE NA SPR 16 GM BTL SCH (09:02)
[2019-01-05] MEDS: REXULTI PO SCH (09:02)
[2019-01-05] MEDS: DICLOFENAC SOD 1% GEL 100 GM TUBE EXT SCH ×2 (09:02→12:25)
[2019-01-05] MEDS: VORTIOXETINE HYDROBROMIDE PO SCH (09:02)
[2019-01-05] MEDS: FLUTICASONE/UMECLIDIN/VILANTER INH SCH (09:03)
[2019-01-05 11:11] VITALS: PULSE 87
[2019-01-05 11:54] VITALS: O2SAT 95
--- NOTE | 2019-01-05 12:02 | Hospitalist Progress Note ---
Date of Service January 05, 2019 Assessment & Plan (1) Acute on chronic respiratory failure with hypoxia: Acute on chronic respiratory failure with hypoxia H/O COPD, interstitial lung disease, restrictive lung disease due to kyphosis, pulmonary fibrosis, PAH Chronic oxygen dependency--3 L at rest, 4 L at bedtime, 6 L with activity at baseline Acute COPD exacerbation Failed multiple courses of p.o. antibiotics as outpatient-- courses of doxycycline, cefdinir, and 2 courses of levofloxacin. Sputum culture on 11/30/2018 grew pseudomonas aeruginosa, pansensitive to tested antibiotics. Sputum Cx on 12/31/18: report--light normal anupama Blood culture: No growth --Chest CTA:No evidence of pulmonary thromboembolic disease. Chronic interstitial lung disease. No overt pulmonary edema or focal airspace consolidation typical for pneumonia. Bilateral hilar adenopathy has mildly improved from 07/30/2018 and may be related to the chronic interstitial lung disease. Suggestion of pulmonary arterial hypertension. Additional findings as above. --Sinus X ray:Normal sinus series --Continue nebs, prednisone, supplemental oxygen as needed --On cefepime, doxycycline Day #09/01 --Continue Pulmonary Hygiene --BiPAP PRN --Needs follow up with Pulmonology upon discharge --Saturating well on baseline supplemental oxygen --Plan to discharge on Prednisone taper upon discharge (2) COPD exacerbation: Management as above (3) Pulmonary fibrosis: Continue steroids. (4) Diabetes mellitus type 2, controlled: On sitagliptin as outpatient Hemoglobin A1c was 6.5 on 10/24/2018 in clinic. Hold PO meds Continue Insulin therapy per protocol. Monitor BGs (5) Schizophrenia: Continue usual medications. (6) Anxiety: Continue home meds (7) Depression: Continue home meds (8) Chronic pain: H/O Chronic pain. Avoid narcotics due to excessive sedation in past and due to respiratory issues Received tramadol for pain as outpatient. Avoid narcotics as able (9) DVT prophylaxis: Heparin SQ (10) Discharge planning issues: PT/OT Plan to discharge home with home health services Subjective Patient is seen and examined at bedside cough, shortness of breath continues to improve Denies any chest pain, dizziness, nausea, abdominal pain Discussed with family in detail Advised patient to follow up with PCP, Pulmonary upon discharge Review of Systems Review of Systems: All systems reviewed & are unremarkable except as noted in HPI & below Physical Exam Physical Exam: Physical Exam: Vitals signs as noted above General Appearance:Chronic ill appearing, no apparent distress Head: normocephalic, Atraumatic Eyes: normal inspection, EOMI Neck: supple, Trachea midline Respiratory/Chest: Decreased coarse breath sounds, CTA Cardiovascular: S1, S2, No murmur Abdomen/GI:Soft, Non tender, Bowel sounds present Extremities/Musculoskelatal:normal inspection, Trace B/L pedal edema Neurologic/Psych:AAOX3, grossly no focal neurological deficits Skin: normal color, warm Results & Data Vital Signs (Past 12 Hours) Vital Signs Temp Pulse Pulse Pulse Resp BP BP 01/05/19 11:53 01/05/19 11:10 36.0 C L 87 89 16 117/77 115/74 01/05/19 11:00 36.3 C L 85 20 108/74 01/05/19 10:43 89 16 01/05/19 09:38 76 01/05/19 07:13 65 16 01/05/19 07:00 36.0 C L 89 20 115/74 01/05/19 04:11 36.7 C 73 18 117/77 01/05/19 00:00 75 Pulse Ox 01/05/19 11:53 95 01/05/19 11:10 98 01/05/19 11:00 96 01/05/19 10:43 98 01/05/19 09:38 01/05/19 07:13 97 01/05/19 07:00 95 01/05/19 04:11 96 01/05/19 00:00 Laboratory Results Short CBC 01/05/19 Range/Units 06:06 WBC 12.94 H (4.8-10.8) K/uL Hgb 13.4 (12.0-16.0) g/dL Hct 42.0 (37-47) % Plt Count 191 (130-400) K/uL (1) Schizophrenia Schizophrenia type: unspecified Qualified Code(s): F20.9 - Schizophrenia, unspecified
--- NOTE | 2019-01-05 12:12 | Discharge Summary ---
Date of Service January 05, 2019 Admission HPI Per Admitting Provider CHIEF COMPLAINT: Shortness of breath and ongoing cough with yellowish phlegm since last 6 weeks. HISTORY OF PRESENT ILLNESS: This is a 58-year-old female with past medical history significant for COPD, interstitial lung fibrosis, restrictive lung disease due to kyphosis, chronic hypoxic respiratory failure on oxygen 6 liters with ambulation, 3 liters at rest and 4 liters while sleeping with BiPAP, history of aspiration, chronic hepatitis C, GERD, moderate malnutrition, esophageal diverticulum, esophageal dysmotility, urge incontinence, chronic kidney disease stage III, chronic hip pain,hx of discitis thoracolumbar region, history of alcohol dependence in remission, history of schizoaffective disorder, depression with anxiety, history of drug abuse in remission, history of DVT, history of smoking. The patient lives alone but has a sister and mother lives upstairs. She has history of multiple admissions in the past for COPD and interstitial lung disease. The patient states since last 6 weeks she is getting cough with yellowish phlegm and also shortness of breath on exertion. She is chronically on 10 mg prednisone increased to 20 mg and she was treated with antibiotics. She says she was treated with antibiotics as outpatient, but it is not helping. As per ER and epic she was treated with Omnicef and recently she was treated with Levaquin, but it is not helping and she wants to stay in the hospital for the antibiotics and to feel better. Denies any fever, chills. No chest pain, no nausea, no vomiting, no abdominal pain. Has some headache. No dizziness, no blurred vision, no earache. Has some runny nose, has some sore throat, no difficulty swallowing. Appetite is okay. Sleeping okay. No hematuria or burning micturition, no melena or hematochezia. No swelling in the legs. No rash. Currently resting comfortably and hemodynamically stable. Admission Exam Per Admitting Provider PHYSICAL EXAMINATION: GENERAL: The patient is alert and oriented, not in acute distress. VITAL SIGNS: Temperature 36.8, pulse 114, respiratory rate 22, blood pressure 116/85, oxygen 93% on 4 liters. HEENT: No pallor, no icterus. Pupils equal, round and reactive to light. NECK: No JVD, no neck masses, no carotid bruits. CARDIOVASCULAR: S1, S2 heard, regular rate and rhythm. Tachycardia. No murmurs. RESPIRATORY SYSTEM: Normal AP diameter. No accessory muscle use. Mild occasional wheezing, no crackles. ABDOMEN: Soft, bowel sounds present, nontender. No distention. CENTRAL NERVOUS SYSTEM: Cranial nerves II-XII grossly intact. Nonfocal. EXTREMITIES: No edema, no erythema. Principal Diagnosis Acute on chronic respiratory failure with hypoxia Acute COPD exacerbation Discharge Data Allergies Allergy/AdvReac Type Severity Reaction Status Date / Time hydroxyzine Allergy Unknown UNKNOWN Verified 12/30/18 03:35 fluphenazine AdvReac Intermediate confusion Verified 12/30/18 03:35 haloperidol AdvReac Intermediate "MAKES ME Verified 12/30/18 03:35 GO INTO BLACKOUT" hydrocodone AdvReac Intermediate DROWSY Verified 12/30/18 03:35 molindone AdvReac Intermediate PT FEELS Verified 12/30/18 03:35 LIKE SHES "JUMPING OUT OF HER SKIN" morphine AdvReac Intermediate DROWSY Verified 12/30/18 03:35 lithium AdvReac Mild "LEVEL CAN Verified 12/30/18 03:35 GET TOO HIGH" Consultations 12/30/18 06:33 ED Decision to Admit Stat 12/30/18 09:40 Consult Case Management - Discharge Planning Routine Procedures Performed Chest CTA: 1. No evidence of pulmonary thromboembolic disease. 2. Chronic interstitial lung disease. 3. No overt pulmonary edema or focal airspace consolidation typical for pneu monia. 4. Bilateral hilar adenopathy has mildly improved from 07/30/2018 and may be related to the chronic interstitial lung disease. 5. Suggestion of pulmonary arterial hypertension. 6. Additional findings as above. Sinus X ray: Normal sinus series. Ordered Studies 12/30/18 04:33 CT angio chest PE protocol Urgent Hospital Course (1) Acute on chronic respiratory failure with hypoxia: Acute on chronic respiratory failure with hypoxia H/O COPD, interstitial lung disease, restrictive lung disease due to kyphosis, pulmonary fibrosis, PAH Chronic oxygen dependency--3 L at rest, 4 L at bedtime, 6 L with activity at baseline Acute COPD exacerbation Failed multiple courses of p.o. antibiotics as outpatient-- courses of doxycycline, cefdinir, and 2 courses of levofloxacin. Sputum culture on 11/30/2018 grew pseudomonas aeruginosa, pansensitive to tested antibiotics. Sputum Cx on 12/31/18: report--light normal anupama Blood culture: No growth --Chest CTA:No evidence of pulmonary thromboembolic disease. Chronic interstitial lung disease. No overt pulmonary edema or focal airspace consolidation typical for pneumonia. Bilateral hilar adenopathy has mildly improved from 07/30/2018 and may be related to the chronic interstitial lung disease. Suggestion of pulmonary arterial hypertension. Additional findings as above. --Sinus X ray:Normal sinus series --Continue nebs, prednisone, supplemental oxygen as needed --On cefepime, doxycycline Day #09/01 --Continue Pulmonary Hygiene --BiPAP PRN --Needs follow up with Pulmonology upon discharge --Saturating well on baseline supplemental oxygen --Plan to discharge on Prednisone taper upon discharge (2) COPD exacerbation: Management as above (3) Pulmonary fibrosis: Continue steroids. (4) Diabetes mellitus type 2, controlled: On sitagliptin as outpatient Hemoglobin A1c was 6.5 on 10/24/2018 in clinic. Hold PO meds Continue Insulin therapy per protocol. Monitor BGs (5) Schizophrenia: Continue usual medications. (6) Anxiety: Continue home meds (7) Depression: Continue home meds (8) Chronic pain: H/O Chronic pain. Avoid narcotics due to excessive sedation in past and due to respiratory issues Received tramadol for pain as outpatient. Avoid narcotics as able (9) DVT prophylaxis: Heparin SQ (10) Discharge planning issues: PT/OT Plan to discharge home with home health services Total Time Total Time Spent Total Time Spent (In Minutes): 40 minutes Total Time Includes: Examination of the Patient, Discharge Planning, Medication Reconciliation, Communication With Other Providers and Other Discharge Plan Discharge Items Patient Disposition: Home - Home Health Services Reason For Visit: SOB, PERSISTENT COUGH Discharge Diagnosis: Acute on chronic respiratory failure with hypoxia Acute COPD exacerbation Activity: Resume your previous activity Exercise/Sports: Gradually increase as tolerated Non-emergency contact: Primary Care Provider and Medical Physiologist Call non-emergency contact if: you have any medication questions, your symptoms worsen, your pain is not controlled, your pain is worsening, your pain is unusual for you, your pain is concerning for you and you have a fever Follow-up/Referrals: Naveed Adam MD [Primary Care Provider] - Diet: Carb Consistent or DM2 and Heart Healthy Addtl Attending Provider Instructions: Follow-up with your primary care physician Dr. Adam on January 09, 2019 at 10:45 AM Follow-up with your ip counsel Sharlene Wheat NP on January 13, 2019 at 12:00 PM Complete the prednisone taper course as advised Prednisone taper course Start taking prednisone 40 mg daily for 2 days, then 30 mg for 4 days then, 20 mg for 4 days then, 10 mg for 4 days. Further recommendations as per your Medical Physiologist. Seek immediate medical attention if your symptoms reoccur or worsen Pending Studies at Discharge: No Stand-Alone Forms: [facility] Workable, Smoking Cessation Medications and DC Order Prescriptions: New prednisone 10 mg tablet 10 mg PO UD Qty: 32 RF: 0 Continued calcitonin (salmon) 200 unit/actuation [place],Non-Aerosol 1 spray Intranasal QAM RF: 0 ferrous sulfate [FerrouSul] 325 mg (65 mg iron) tablet 325 mg PO BIDM RF: 0 folic acid 1 mg Tablet 1 mg PO QAM RF: 0 montelukast [Singulair] 10 mg Tablet 10 mg PO HS RF: 0 albuterol sulfate [Ventolin HFA] 90 mcg/actuation Hfa Aerosol Inhaler 2 puff INHALATION Q6H PRN (Reason: Shortness Of Breath Or Wheezing) RF: 0 fenofibrate nanocrystallized [Tricor] 48 mg Tablet 48 mg PO QAM RF: 0 Trelegy Ellipta 100-62.5-25 mcg Blister With Device 1 inh INHALATION QAM RF: 0 pantoprazole [Protonix] 40 mg Tablet,Delayed Release (Dr/Ec) 40 mg PO BIDM RF: 0 magnesium hydroxide [Milk of Magnesia] 400 mg/5 mL Suspension 30 ml PO HS PRN (Reason: Constipation) RF: 0 Rexulti 3 mg Tablet 3 mg PO QAM RF: 0 Trintellix 10 mg Tablet 20 mg PO DAILY RF: 0 clonazepam 0.5 mg tablet 0.25 mg PO TID PRN (Reason: Panic Attack(S)) RF: 0 tramadol 50 mg tablet 50 mg PO TID PRN (Reason: Pain) RF: 0 docusate sodium 100 mg Capsule 100 mg PO BID RF: 0 clozapine 100 mg Tablet 100 mg PO BID RF: 0 gabapentin 100 mg Capsule 200 mg PO AMHS RF: 0 Januvia 100 mg Tablet 100 mg PO DAILY RF: 0 metoprolol tartrate 25 mg Tablet 12.5 mg PO BID RF: 0 ranitidine HCl 150 mg Tablet 150 mg PO BID RF: 0 cholecalciferol (vitamin D3) [Vitamin D3] 1,000 unit Capsule 1,000 unit PO DAILY RF: 0 acetaminophen [Tylenol Extra Strength] 500 mg Tablet 1,000 mg PO Q6H PRN (Reason: Pain) RF: 0 diclofenac sodium [Voltaren] 1 % Gel 2 g TOPICAL QID RF: 0 fluticasone propionate [Flonase Allergy Relief] 50 mcg/actuation [place],Suspension 2 spray INTRANASAL DAILY RF: 0 prednisone 20 mg tablet 20 mg PO UD RF: 0 albuterol sulfate 2.5 mg /3 mL (0.083 %) solution for nebulization 2.5 mg inhalation Q4H PRN (Reason: Shortness Of Breath) RF: 0 bupropion HCl 100 mg tablet sustained-release 12 hr 100 mg PO BID RF: 0 Centrum Silver 0.4-300-250 mg-mcg-mcg Tablet 1 tab PO QAM RF: 0 benzonatate [Tessalon Perles] 100 mg Capsule 100 mg PO TID PRN (Reason: Cough) RF: 0 calcium-vitamin D3-vitamin K 500 mg-1,000 unit-40 mcg Tablet,Chewable 1 tab PO BID RF: 0 Discharge Orders: Discharge Order (Routine); Ordered 01/05/19 Ordered By: Rico Kc Admission Data Admit Date/Time: 12/30/18 06:32 Attending Provider: Rico Kc Admit Provider: Ramon King Primary Care Provider: Naveed Adam Other Providers: Ramon King Other Interventions: Discharge Summary Assessment (RN) Last Done: 01/05/19 12:45 DC Date/Time DO NOT enter until pt leaves facility: 01/05/19 14:38
== END 2019-01-05 14:38 | disposition home health service (06) | DRG 190 ==
LOC: ED 03:04 → 2N 06:32 → SUATTDRO 06:32 → 2N 08:04

== ENCOUNTER 2019-02-14 17:27 | Inpatient (IN) ==
[2019-02-14 18:06] LABS: Appearance Urine Clear (Clear); Bilirubin Urine Negative (Negative); Blood Urine Negative (Negative); Color Urine Yellow; Glucose Urine UA Negative (Negative); Ketones Urine Negative (Negative); Leukocyte Esterase Urine Negative (Negative); Nitrite Urine Negative (Negative); Protein Urine Negative (Negative); Specific Gravity Urine 1.005 (1.000-1.030); Urobilinogen Urine Negative (Negative)
[2019-02-14 18:32] LABS: Amphetamines+Metham, Urine Neg (Neg); Barbiturates, Urine Neg (Neg); Benzodiazepine, Urine Neg (Neg); Cocaine, Urine Neg (Neg); MDMA (Ecstacy), Urine Pos (Neg); Methadone, Urine Neg (Neg); Opiate, Urine Neg (Neg); Phencyclidine, Urine Neg (Neg)
--- NOTE | 2019-02-14 19:04 | XRay Report ---
XR chest 1V portable HISTORY: 58 years-old Female sob . Acute shortness of breath COMPARISON: Chest radiograph and CTA chest 02/04/2019 TECHNIQUE: Portable AP view the chest FINDINGS: Cardiac silhouette is enlarged, unchanged. Stable positioning of the right pectoral [id number] cat heter. Chronic bilateral reticular opacities with unchanged right hemidiaphragmatic elevation. No pne umothorax, pleural effusion or new airspace opacity. Healed remote right-sided rib fractures. Degener ative changes of the shoulders and spine. Convex left curvature of the thoracic spine with extensive fusion hardware. IMPRESSION: Chronic interstitial lung disease without acute process. ACT 112: Negative or not required by law. The above report was generated using voice recognition software. It may contain grammatical, syntax o r spelling errors. Electronically signed by: Jeanmarie Sharp M.D. 02/14/2019 7:02 PM
[2019-02-14 19:18] LABS: Basophils # (auto) 0.02 K/uL (0-0.2); Basophils % (auto) 0.2 %; Eosinophils # (auto) 0.07 K/uL (0-0.5); Eosinophils % (auto) 0.5 %; Hematocrit (blood only) 43.9 % (37-47); Immature Granulocytes # (auto) 0.13 K/uL (0.00-0.02); Lymphocytes # (auto) 0.79 K/uL (1.2-3.4); Lymphocytes % (auto) 6.2 %; Mean Corpuscular Hemoglobin 31.9 pg (25-34); Mean Corpuscular Hgb Conc 31.9 g/dL (32-36); Mean Platelet Volume 10.2 fL (7.4-10.4); Monocytes # (auto) 0.76 K/uL (0.11-0.59); Neutrophils # (auto) 10.97 K/uL (1.4-6.5); Neutrophils % (auto) 86.1 %; Platelet Count 228 K/uL (130-400); RDW Coefficient of Variation 13.6 % (11.5-14.5); RDW Standard Deviation 49.5 fL (36.4-46.3); Red Blood Count 4.39 M/uL (4.2-5.4); White Blood Count 12.74 K/uL (4.8-10.8)
[2019-02-14 19:35] LABS: Alanine Aminotransferase 34 U/L (12-78); Albumin Level 3.5 gm/dl (3.4-5.0); Anion Gap 0 (3-11); Aspartate Aminotransferase 23 U/L (15-37); BUN Creatinine Ratio 20.7 (10-20); Blood Urea Nitrogen 21 mg/dl (7-18); Calcium 8.9 mg/dl (8.5-10.1); Carbon Dioxide 32 mmol/L (21-32); Chloride 106 mmol/L (98-107); Est GFR (African American) 70.6; Est GFR (Non-African American) 60.9; Glucose 180 mg/dl (70-99); Potassium 4.3 mmol/L (3.5-5.1); Sodium 138 mmol/L (136-145)
[2019-02-14 19:39] LABS: Acetaminophen 11 ug/ml (10-30); Salicylate < 1.7 mg/dl (2.8-20)
[2019-02-14 19:46] LABS: Albumin Globulin Ratio 0.8 (0.9-2); Alkaline Phosphatase 59 U/L (45-117); Bilirubin,Total 0.2 mg/dl (0.2-1); Globulin 4.6 gm/dl (2.5-4.0); Thyroid Stimulating Hormone 0.977 uIu/ml (0.300-4.500); Total Protein 8.1 gm/dl (6.4-8.2); Troponin I < 0.015 ng/ml (0-0.045)
[2019-02-14] MEDS ORDERED: MONTELUKAST SODIUM 10 MG TABLET PO ONE (21:02)
[2019-02-14] MEDS ORDERED: TRAMADOL HCL 50 MG TABLET PO STA (21:02)
[2019-02-14] MEDS ORDERED: METOPROLOL TARTRATE 25 MG TAB PO STA (21:02)
[2019-02-14] MEDS ORDERED: PANTOprazole 40 MG TAB PO STA (21:02)
[2019-02-14] MEDS ORDERED: DOCUSATE SODIUM 100 MG CAP PO ONE (21:02)
[2019-02-14] MEDS ORDERED: CALCIUM CARBONATE 500 MG CHEWABLE TAB PO ONE (21:04)
[2019-02-14] MEDS ORDERED: CYCLOBENZAPRINE HCL 10 MG TAB PO STA (21:07)
[2019-02-14] MEDS ORDERED: ALBUTEROL HFA 8 GM INHALER INH ONE (21:07)
[2019-02-14] MEDS ORDERED: DICLOFENAC SOD 1% GEL 100 GM TUBE EXT STA (21:08)
--- NOTE | 2019-02-14 21:18 | Emergency Department Note ---
Entered by Yue Cottrell acting as a scribe for Dougie Bravo DO History of Present Illness General Chief complaint: Mental Health Evaluation Stated complaint: MHID Source: patient History of Present Illness Onset (ago): week(s) (1) Location: head (general) Pain Consistency: + intermittent Quality: + other (suicidal ideations) Associated symptoms: + other (panic attacks); no chest pain and no shortness of breath The patient is a 58 year old female who presents to the Emergency Room with complaints of intermittent suicidal ideations beginning one week ago. The patient states she wants to kill herself by cutting her forearm, hitting an artery, and bleeding to . She reports previous attempts to kill herself by cutting. The patient reports a history of many different medical problems including COPD. She states she is tired of dealing with them. She reports a history of panic attacks caused by her lung problems. She denies any chest pain, shortness of breath, headache, nausea vomiting, or diarrhea. She states she wears 6L of oxygen while exerting herself, 4L while sleeping, and 3L while sitting. Home Medications Home Medications Medication Instructions Recorded Confirmed Type albuterol sulfate [Ventolin HFA] 2 puff INHALATION Q6H PRN 12/27/17 02/14/19 History calcitonin (salmon) 1 spray INTRANASAL QAM 12/27/17 02/14/19 History fenofibrate nanocrystallized 48 mg PO QAM 12/27/17 02/14/19 History [Tricor] ferrous sulfate [FerrouSul] 325 mg PO BIDM 12/27/17 02/14/19 History folic acid 1 mg PO QAM 12/27/17 02/14/19 History montelukast [Singulair] 10 mg PO HS 12/27/17 02/14/19 History Trelegy Ellipta 1 inh INHALATION QAM 02/18/18 02/14/19 History pantoprazole [Protonix] 40 mg PO BIDM 02/18/18 02/14/19 History magnesium hydroxide [Milk of 30 ml PO HS PRN 03/02/18 02/14/19 History Magnesia] Rexulti 3 mg PO QAM 06/26/18 02/14/19 History Trintellix 20 mg PO DAILY 07/19/18 02/14/19 History albuterol sulfate 2.5 mg INHALATION TID PRN 07/29/18 02/14/19 History bupropion HCl 100 mg PO DAILY 07/29/18 02/14/19 History benzonatate [Tessalon Perles] 100 mg PO TID PRN 07/30/18 02/14/19 History calcium-vitamin D3-vitamin K 1 tab PO BID 07/30/18 02/14/19 History clonazepam 0.25 mg PO BID PRN 08/20/18 02/14/19 History tramadol 50 mg PO Q6 PRN 08/20/18 02/14/19 History Januvia 100 mg PO DAILY 11/21/18 02/14/19 History acetaminophen [Tylenol Extra 1,000 mg PO TID PRN 11/21/18 02/14/19 History Strength] clozapine 100 mg PO BID 11/21/18 02/14/19 History diclofenac sodium [Voltaren] 2 g TOPICAL QID PRN 11/21/18 02/14/19 History docusate sodium 100 mg PO BID 11/21/18 02/14/19 History fluticasone propionate [Flonase 2 spray INTRANASAL DAILY 11/21/18 02/14/19 History Allergy Relief] gabapentin 200 mg PO BID 11/21/18 02/14/19 History metoprolol tartrate 12.5 mg PO BID 11/21/18 02/14/19 History ranitidine HCl 150 mg PO BID 11/21/18 02/14/19 History prednisone 10 mg PO TID 02/04/19 02/14/19 History clozapine 50 mg PO DAILY 02/14/19 02/14/19 History cyclobenzaprine 5 mg PO BID PRN 02/14/19 02/14/19 History guaifenesin [Mucinex] 1,200 mg PO BID 02/14/19 02/14/19 History Allergies Allergy/AdvReac Type Severity Reaction Status Date / Time hydroxyzine Allergy Unknown UNKNOWN Verified 02/14/19 19:23 fluphenazine AdvReac Intermediate confusion Verified 02/14/19 19:23 haloperidol AdvReac Intermediate "MAKES ME Verified 02/14/19 19:23 GO INTO BLACKOUT" hydrocodone AdvReac Intermediate DROWSY Verified 02/14/19 19:23 molindone AdvReac Intermediate PT FEELS Verified 02/14/19 19:23 LIKE SHES "JUMPING OUT OF HER SKIN" morphine AdvReac Intermediate DROWSY Verified 02/14/19 19:23 lithium AdvReac Mild "LEVEL CAN Verified 02/14/19 19:23 GET TOO HIGH" Past Med/Surg History Medical History Anxiety (Chronic) Chronic back pain (Chronic) Chronic pain (Chronic) history of excessive sedation on narcotics no narcotics except for acute / severe pain Chronic respiratory failure with hypoxia, on home O2 therapy (Chronic) COPD (chronic obstructive pulmonary disease) (Chronic) Depression (Chronic) Diabetes mellitus type 2, controlled (Chronic) DVT (deep venous thrombosis) (Resolved) right leg--no blood thinners GERD (gastroesophageal reflux disease) (Chronic) GERD (gastroesophageal reflux disease) (Chronic) History of anesthesia reaction (Chronic) did not receive enough anesthesia during a colonoscopy and felt everything Orthostatic hypotension (Chronic) Osteoarthritis (Chronic) Pulmonary fibrosis (Chronic) Schizophrenia (Chronic) Spinal stenosis (Chronic) Surgical History History of open reduction and internal fixation (ORIF) procedure (Chronic) left femur--rods in place History of thoracic spinal fusion (Chronic) fusion and decompression t6-t12 History of tooth extraction (Chronic) all teeth removed History of total abdominal hysterectomy and bilateral salpingo-oophorectomy (Chronic) History of vascular access device (Chronic) Aport on right side Family History Grandmother (Paternal) Family hx of colon cancer Social History Preferred Language: [place] Communication Ability: Effective Visual Impairment: No Limitations Delicatessen Clerk Required: No Beliefs That Will Affect Care: None marital status: Single Current Living Situation: Family Current Living Situation Comment: Pt. lives with mother and sister. Feels Safe at Home: No Is there a partner from a previous relationship who is m aking you feel unsafe now?: No Smoking Status: Former smoker Tobacco Type: cigarettes ; Second Hand Exposure: No ; Hx Alcohol Use: No Hx Substance Use: Yes substance use type: opiates Substance Use Type Other:: No longer Last Used Substance: Unknown Review of Systems See HPI for pertinent positives & negatives. and A total of 10 systems reviewed and were otherwise negative Physical Exam Vital Signs Vital Signs - 24 hr 02/14/19 17:54 02/14/19 18:39 02/14/19 19:25 Temperature 36.8 C Temperature Source Oral Pulse Rate 108 H Pulse Rate [Apical] 94 H Pulse Rhythm [Apical] Regular Pulse Strength [Apical] Normal Respiratory Rate 22 18 Respiratory Effort / Characteristics Non-Labored Spontaneous Respiratory Depth Normal Normal Respiratory Pattern Regular Blood Pressure 149/94 H Blood Pressure [Right Arm] 125/99 Blood Pressure Mean 112 Blood Pressure Mean [Right Arm] 107 Blood Pressure Position [Right Arm] Lying Pulse Oximetry 94 95 Oxygen Delivery Method Nasal Cannula Nasal Cannula Nasal Cannula Oxygen Flow Rate 4 6 Sepsis Recent Fever Within 48 Hours No Sepsis New/Unexplained Change in Mental Status No Sepsis Action Taken by Nursing No Action Required Oxygen Flow Rate - Titration 6 Pulse Oximetry Post Tiitration 92 02/14/19 21:13 Temperature Temperature Source Pulse Rate Pulse Rate [Apical] 90 Pulse Rhythm [Apical] Regular Pulse Strength [Apical] Normal Respiratory Rate 20 Respiratory Effort / Characteristics Non-Labored Spontaneous Respiratory Depth Normal Respiratory Pattern Regular Blood Pressure Blood Pressure [Right Arm] 148/91 H Blood Pressure Mean Blood Pressure Mean [Right Arm] 110 Blood Pressure Position [Right Arm] Lying Pulse Oximetry 94 Oxygen Delivery Method Nasal Cannula Oxygen Flow Rate 4 Sepsis Recent Fever Within 48 Hours Sepsis New/Unexplained Change in Mental Status Sepsis Action Taken by Nursing Oxygen Flow Rate - Titration Pulse Oximetry Post Tiitration GENERAL: sitting up in bed, talking in full sentences, on 4L nasal cannula EYE EXAM: normal conjunctiva OROPHARYNX: no exudate, no erythema, lips, buccal mucosa, and tongue normal and mucous membranes are moist NECK: supple, no nuchal rigidity, no adenopathy, non-tender LUNGS: Faint wheezing bilaterally. Normal chest wall mechanics HEART: no murmurs, S1 normal and S2 normal ABDOMEN: abdomen soft, non-tender, normo-active bowel sounds, no masses, no rebound or guarding. BACK: Back is symmetrical on inspection and there is no deformity, no midline tenderness, no CVA tenderness. SKIN: no rashes and no bruising UPPER EXTREMITIES: upper extremities are grossly normal. LOWER EXTREMITIES: Calves equal bilaterally with pitting edema. NEURO EXAM: Normal sensorium, cranial nerves II-XII grossly intact, normal speech, no gross weakness of arms, no gross weakness of legs. PSYCH: Admits to SI with plan to cut herself. Denies HI. Course Course ED COURSE: Vital signs were reviewed and showed situational hypertension. The patients medical record was reviewed The above diagnostic studies were performed and reviewed. ED treatments and interventions as stated above. 0: The patient was evaluated in room A07. A complete history and physical examination was performed. 2214: Upon reevaluation, the patient is resting more comfortably. I discussed my findings with the patient and she understands and agrees with the treatment plan. Based on the patients age, coexisting illnesses, exam and lab findings the decision to treat as an inpatient was made. The patient will be further evaluated in [address] [place]. The patient remained stable while under my care. The patient will be evaluated for further management. Administered Medications Discontinued Medications Albuterol (Ventolin Hfa) 2 puffs INH NOW ONE Stop: 02/14/19 21:08 Last Admin: 02/14/19 21:23 Dose: 2 puffs Documented by: [id number] Calcium Carbonate (Tums) 500 mg PO ONE ONE Stop: 02/14/19 21:05 Last Admin: 02/14/19 21:15 Dose: 500 mg Documented by: [id number] Cyclobenzaprine HCl (Flexeril) 5 mg PO NOW STA Stop: 02/14/19 21:08 Last Admin: 02/14/19 21:23 Dose: 5 mg Documented by: [id number] Diclofenac Sodium (Voltaren 1% Top) 2 gm EXT NOW STA Stop: 02/14/19 21:09 Last Admin: 02/14/19 21:23 Dose: 2 gm Documented by: [id number] Docusate Sodium (Colace) 100 mg PO NOW ONE Stop: 02/14/19 21:03 Last Admin: 02/14/19 21:14 Dose: 100 mg Documented by: [id number] Metoprolol Tartrate (Lopressor) 12.5 mg PO NOW STA Stop: 02/14/19 21:03 Last Admin: 02/14/19 21:14 Dose: 12.5 mg Documented by: [id number] Montelukast Sodium (Singulair) 10 mg PO NOW ONE Stop: 02/14/19 21:03 Last Admin: 02/14/19 21:14 Dose: 10 mg Documented by: [id number] Pantoprazole Sodium (Protonix) 40 mg PO NOW STA Stop: 02/14/19 21:03 Last Admin: 02/14/19 21:14 Dose: 40 mg Documented by: [id number] Prednisone (Prednisone) 10 mg PO NOW ONE Stop: 02/14/19 21:30 Last Admin: 02/14/19 21:34 Dose: 10 mg Documented by: [id number] Tramadol HCl (Ultram) 50 mg PO NOW STA Stop: 02/14/19 21:03 Last Admin: 02/14/19 21:14 Dose: 50 mg Documented by: [id number] Medical Decision Making Differential Diagnosis Differential diagnoses considered include mood disorder, infection, hypoglycemia, electrolyte abnormalities, cardiac sources, intracerebral event, toxicologic, neurologic, as well as others. Medical Records Attestation: I reviewed the patient's medical records. Home Medications Current Medication List: was personally reviewed by me Laboratory Data Attestation: I reviewed the patient's lab results. Result diagrams: 02/14/19 19:00 02/14/19 19:00 Lab Results 02/14/19 02/14/19 02/14/19 Range/Units 17:45 17:45 19:00 WBC 12.74 H (4.8-10.8) K/uL RBC 4.39 (4.2-5.4) M/uL Hgb 14.0 (12.0-16.0) g/dL Hct 43.9 (37-47) % MCV 100.0 (80-100) fL MCH 31.9 (25-34) pg MCHC 31.9 L (32-36) g/dL RDW Std Deviation 49.5 H (36.4-46.3) fL RDW Coeff of Ivy 13.6 (11.5-14.5) % Plt Count 228 (130-400) K/uL MPV 10.2 (7.4-10.4) fL Immature Gran % (Auto) 1.0 % Neut % (Auto) 86.1 % Lymph % (Auto) 6.2 % [place] % (Auto) 6.0 % Eos % (Auto) 0.5 % Baso % (Auto) 0.2 % Immature Gran # (Auto) 0.13 H (0.00-0.02) K/uL Neut # (Auto) 10.97 H (1.4-6.5) K/uL Lymph # (Auto) 0.79 L (1.2-3.4) K/uL [place] # (Auto) 0.76 H (0.11-0.59) K/uL Eos # (Auto) 0.07 (0-0.5) K/uL Baso # (Auto) 0.02 (0-0.2) K/uL Sodium (136-145) mmol/L Potassium (3.5-5.1) mmol/L Chloride (98-107) mmol/L Carbon Dioxide (21-32) mmol/L Anion Gap (3-11) BUN (7-18) mg/dl Creatinine (0.6-1.2) mg/dl Est Cr Clr Drug Dosing ml/min Est GFR ( Amer) Est GFR (Non-Af Amer) BUN/Creatinine Ratio (10-20) Glucose (70-99) mg/dl Calcium (8.5-10.1) mg/dl Total Bilirubin (0.2-1) mg/dl AST (15-37) U/L ALT (12-78) U/L Alkaline Phosphatase (45-117) U/L Troponin I (0-0.045) ng/ml Total Protein (6.4-8.2) gm/dl Albumin (3.4-5.0) gm/dl Globulin (2.5-4.0) gm/dl Albumin/Globulin Ratio (0.9-2) TSH (0.300-4.500) uIu/ml Urine Color Yellow Urine Appearance Clear (Clear) Urine pH 6.0 (4.5-7.5) Ur Specific [place] 1.005 (1.000-1.030) Urine Protein Negative (Negative) Urine Glucose (UA) Negative (Negative) Urine Ketones Negative (Negative) Urine Blood Negative (Negative) Urine Nitrite Negative (Negative) Urine Bilirubin Negative (Negative) Urine Urobilinogen Negative (Negative) Ur Leukocyte Esterase Negative (Negative) Salicylates (2.8-20) mg/dl Urine Opiates Screen Neg (Neg) Ur Methadone, Qual Neg (Neg) Acetaminophen (10-30) ug/ml Urine Barbiturates Neg (Neg) Ur Phencyclidine (PCP) Neg (Neg) U Amphetamin/Meth Scrn Neg (Neg) MDMA (Ecstasy) Screen Pos H (Neg) U Benzodiazepines Scrn Neg (Neg) Ur Cocaine Metabolite Neg (Neg) U Marijuana (THC) Screen Neg (Neg) Ethyl Alcohol mg/dL (0-3) mg/dl 02/14/19 02/14/19 02/14/19 Range/Units 19:00 19:00 19:00 WBC (4.8-10.8) K/uL RBC (4.2-5.4) M/uL Hgb (12.0-16.0) g/dL Hct (37-47) % MCV (80-100) fL MCH (25-34) pg MCHC (32-36) g/dL RDW Std Deviation (36.4-46.3) fL RDW Coeff of Ivy (11.5-14.5) % Plt Count (130-400) K/uL MPV (7.4-10.4) fL Immature Gran % (Auto) % Neut % (Auto) % Lymph % (Auto) % [place] % (Auto) % Eos % (Auto) % Baso % (Auto) % Immature Gran # (Auto) (0.00-0.02) K/uL Neut # (Auto) (1.4-6.5) K/uL Lymph # (Auto) (1.2-3.4) K/uL [place] # (Auto) (0.11-0.59) K/uL Eos # (Auto) (0-0.5) K/uL Baso # (Auto) (0-0.2) K/uL Sodium 138 (136-145) mmol/L Potassium 4.3 (3.5-5.1) mmol/L Chloride 106 (98-107) mmol/L Carbon Dioxide 32 (21-32) mmol/L Anion Gap 0 L (3-11) BUN 21 H (7-18) mg/dl Creatinine 1.01 (0.6-1.2) mg/dl Est Cr Clr Drug Dosing 70.0 ml/min Est GFR ( Amer) 70.6 Est GFR (Non-Af Amer) 60.9 BUN/Creatinine Ratio 20.7 H (10-20) Glucose 180 H (70-99) mg/dl Calcium 8.9 (8.5-10.1) mg/dl Total Bilirubin 0.2 (0.2-1) mg/dl AST 23 (15-37) U/L ALT 34 (12-78) U/L Alkaline Phosphatase 59 (45-117) U/L Troponin I < 0.015 (0-0.045) ng/ml Total Protein 8.1 (6.4-8.2) gm/dl Albumin 3.5 (3.4-5.0) gm/dl Globulin 4.6 H (2.5-4.0) gm/dl Albumin/Globulin Ratio 0.8 L (0.9-2) TSH 0.977 (0.300-4.500) uIu/ml Urine Color Urine Appearance (Clear) Urine pH (4.5-7.5) Ur Specific [place] (1.000-1.030) Urine Protein (Negative) Urine Glucose (UA) (Negative) Urine Ketones (Negative) Urine Blood (Negative) Urine Nitrite (Negative) Urine Bilirubin (Negative) Urine Urobilinogen (Negative) Ur Leukocyte Esterase (Negative) Salicylates < 1.7 L (2.8-20) mg/dl Urine Opiates Screen (Neg) Ur Methadone, Qual (Neg) Acetaminophen 11 (10-30) ug/ml Urine Barbiturates (Neg) Ur Phencyclidine (PCP) (Neg) U Amphetamin/Meth Scrn (Neg) MDMA (Ecstasy) Screen (Neg) U Benzodiazepines Scrn (Neg) Ur Cocaine Metabolite (Neg) U Marijuana (THC) Screen (Neg) Ethyl Alcohol mg/dL < 3.0 (0-3) mg/dl Imaging Data Radiologist's Impression: Radiology results as stated below per my review and the radiologist's interpretation: XR chest 1V portable HISTORY: 58 years-old Female sob . Acute shortness of breath COMPARISON: Chest radiograph and CTA chest 02/04/2019 TECHNIQUE: Portable AP view the chest FINDINGS: Cardiac silhouette is enlarged, unchanged. Stable positioning of the right pectoral [id number] catheter. Chronic bilateral reticular opacities with unchanged right hemidiaphragmatic elevation. No pneumothorax, pleural effusion or new airspace opacity. Healed remote right-sided rib fractures. Degenerative changes of the shoulders and spine. Convex left curvature of the thoracic spine with extensive fusion hardware. IMPRESSION: Chronic interstitial lung disease without acute process. ACT 112: Negative or not required by law. The above report was generated using voice recognition software. It may contain grammatical, syntax or spelling errors. Electronically signed by: Jeanmarie Shapr M.D. 02/14/2019 7:02 PM ECG Data Attestation: I personally reviewed and interpreted this ECG as follows: Indication: + tachycardia Rate (beats per minute): 100 Rhythm: + sinus tachycardia ECG [place]: + Normal ECG ST segments: + T-wave inversions (Inferior) ECG Findings: + Other (poor baseline); no PVCs Comparison ECG Date: from (02/04/2019) Change: no significant change (TWI in Lead III is old) Blood Pressure Blood Pressure Findings: Elevated blood pressure Blood Pressure Disposition: elevated BP felt to be situational MDM Narrative Patient is a 58-year-old female who presents the ER for suicidal ideations with plan to cut her wrist. She notes she is depressed due to her bad COPD. She notes no new chest pain or shortness of breath. Blood work was obtained and showed mild leukocytosis of 12,000 but patient is chronically on steroids. No significant anemia. BMP was remarkable for slightly elevated glucose at 180. LFTs bilirubin and troponin were unremarkable. TSH unremarkable. UA was negative. Tox was positive for MDMA. Alcohol was negative. Chest x-ray without any focal infiltrate. Patient was given majority of her night meds. EKG was nondiagnostic. She again denies any new chest pain or shortness of breath. She was updated at bedside. Evaluated by her psychiatric director career services as well as 3 S. admitted for further work-up. Of note she was slightly hypoxic when she presented but she did walk-in and at that time she was only on 4 L. She should be on 6 L with exertion, 4 L with sleeping and 3 L with rest. Impression & Plan Suicidal ideations, COPD (chronic obstructive pulmonary disease), Mood disorder Discharge Plan Visit Data Chief Complaint: Mental Health Evaluation Stated Complaint: MHID ED Provider: Dougie Bravo Discharge Problem: Suicidal ideations, COPD (chronic obstructive pulmonary disease), Mood disorder Patient Disposition: Being Evaluated by Hospitalist Discharge Instructions Interventions: ED Discharge Assessment Last Done: 02/14/19 22:42 Discharge Problem: COPD (chronic obstructive pulmonary disease) Qualifiers: COPD type: unspecified COPD Qualified Code(s): J44.9 - Chronic obstructive pulmonary disease, unspecified The scribe's documentation has been prepared under my direction and personally reviewed by me in its entirety. I confirm that the note above accurately reflects all work, treatment, procedures, and medical decision making performed by me.
[2019-02-14] MEDS ORDERED: predniSONE 5 MG TAB PO ONE (21:29)
[2019-02-14] MEDS ORDERED: ALUMINUM/MAGNESIUM SUSP 30 ML UDC PO PRN (22:08)
[2019-02-14] MEDS ORDERED: MAGNESIUM HYDROXIDE SUSP 30 ML UDC PO PRN (22:08)
[2019-02-14] MEDS ORDERED: BISMUTH SUBSALICYLATE PER ML OMNICELL CHARGE PO PRN (22:08)
[2019-02-14] MEDS ORDERED: ACETAMINOPHEN 325 MG TAB PO PRN (22:08)
[2019-02-14] MEDS ORDERED: SODIUM CHLORIDE 0.65% NA SOLN 45 ML (OCEAN) PRN (22:08)
[2019-02-14] MEDS ORDERED: BENZONATATE 100 MG CAPSULE PO PRN (22:14)
[2019-02-14] MEDS ORDERED: DICLOFENAC SOD 1% GEL 100 GM TUBE EXT PRN (22:14)
[2019-02-14] MEDS ORDERED: ACETAMINOPHEN 500 MG TAB PO PRN (22:14)
[2019-02-14] MEDS ORDERED: ALBUTEROL 0.083% NEBU SOLN 3 ML VIAL INH PRN (22:14)
[2019-02-15] MEDS: cloZAPine 100 MG TAB PO SCH ×3 (00:28→21:03)
[2019-02-15] MEDS: DOCUSATE SODIUM 100 MG CAP PO SCH ×3 (00:28→21:03)
[2019-02-15] MEDS: GABAPENTIN 100 MG CAP PO SCH ×3 (00:29→21:04)
[2019-02-15] MEDS: TRINTELLIX~ORDER AWAITING ACTION SCH (00:45)
[2019-02-15] MEDS: FAMOTIDINE 20 MG TAB PO SCH ×3 (00:47→21:04)
[2019-02-15] MEDS ORDERED: CALCIUM VITAMIN D3 VITAMIN K PO SCH (09:00)
[2019-02-15] MEDS: guaiFENesin 600 MG TABCR PO SCH ×2 (10:01→21:04)
[2019-02-15] MEDS: METOPROLOL TARTRATE 25 MG TAB PO SCH ×2 (10:01→21:03)
[2019-02-15] MEDS: FENOFIBRATE NANOCRYSTALLIZED 48 MG TABLET PO SCH (10:01)
[2019-02-15] MEDS: predniSONE 10 MG TABLET PO SCH ×3 (10:01→21:04)
[2019-02-15] MEDS: PANTOprazole 40 MG TAB PO SCH ×2 (10:01→17:37)
[2019-02-15] MEDS: BuPROPion SR 100 MG TABCR PO SCH (10:01)
[2019-02-15] MEDS: FOLIC ACID 1 MG TAB PO SCH (10:03)
[2019-02-15] MEDS: CALCITONIN SALMON NA 200 IU/AC 3.7 ML BTL SCH (10:03)
[2019-02-15] MEDS: FERROUS SULFATE 325 MG TAB PO SCH ×2 (10:03→17:37)
[2019-02-15] MEDS: SITAGLIPTIN PHOSPHATE 100 MG TAB PO SCH (10:03)
[2019-02-15] MEDS: FLUTICASONE PROPIONATE NA SPR 16 GM BTL SCH (10:03)
[2019-02-15] MEDS ORDERED: TRAMADOL HCL 50 MG TABLET PO STA (11:45)
[2019-02-15] MEDS: cloZAPine 25 MG TAB PO SCH (12:07)
--- NOTE | 2019-02-15 13:23 | History & Physical ---
Date of Service February 15, 2019 Impression / Recommendations Impression 58-year-old female admitted voluntarily for inpatient psychiatric treatment on 02/14/19 after presenting to the ED with verbalized worsening depression and anxiety, stating she has been having SI with consideration to cut her wrists and bleed out. Pt has a long history of schizophrenia, paranoid type and is well- known to our service from prior inpatient psychiatric admissions as well as consultations while on the medical floor. Pt has a history of COPD with chronic oxygen supplementation, which is likely related to her exacerbation of anxiety symptoms as well. As patient is somewhat complex with regard to treatment history and is a limited historian, it is felt that obtaining collateral information from patient's sister and outpatient provider will be important before making major adjustments to her medication regimen. Pt was informed of this recommendation, and agrees that she would appreciate her psychiatric [facility]ICIAN and PCP be involved in treatment decisions. Until collateral information can be obtained, we will actively involve the patient in group and recreational therapy with maintaining safety on a locked behavioral health unit. Pt will be encouraged to involve outpatient supports in a family meeting to discuss aftercare and discharge planning. At this time, inpatient psychiatric admission is medically necessary due to patient's ongoing suicidal ideation with access to means, history of prior suicide attempts, and high risk of completion due to long history of disease and significant medical concerns. Pt is a high risk of harm to self if she is discharged prematurely without adequate mitigation of risk factors. Dr. Nelia Ramos was directly involved in review and discussion of the patient's case and participated in medical decision making regarding treatment recommendations. (1) Suicidal ideations: 02/15 - Admitted to a locked inpatient behavioral health unit, on q15 minute safety checks - Encourage medication initiation/adjustments as indicated - Encourage participation in group and recreational therapies - Gather collateral information from outpatient providers - Suggest family meeting to involve outpatient supports in safety planning - Arrange appropriate aftercare (2) Anxiety: 02/15 - Continue current medication regimen unchanged at this time; will attempt to gather collateral information from family regarding changes in the patient's condition, will also attempt to coordinate care with outpatient psychiatric providers - Encourage participation in group and recreational programming - Assist with development of healthy and effective coping strategies to target anxiety symptoms - Engage outpatient support services in clear aftercare and safety planning - Encourage participation in a family meeting (3) Mood disorder: 02/15 - Same as above - continue current medication regimen until collateral information can be gathered from outpatient psychiatric providers - Fasting glucose and lipid panel ordered for tomorrow morning as patient is being continued on brexpiprazole, no history of fasting labs within the last 3 months, diabetes diagnosis - Encourage attendance of group and recreational programming (4) Schizophrenia: 02/15 - Other than a brief mention of "paranoia" regarding men being able to break into her home while she is sleeping, the patient does not verbalize exacerbation of symptoms related to her schizophrenia diagnosis - Will attempt to gather collateral information from sister/mother to determine stability of the condition - Will maintain clozapine TID dosing at 100mg/50mg/100mg daily; CBC w/ diff ordered as part of ED work-up, ANC - 10. Will order serial CBC w/ diff, as duration of admission is unknown at this time - At this time, treatment of symptoms related to schizophrenia diagnosis does not seem to be primary focus of treatment Schizophrenia type: unspecified Qualified Code(s): F20.9 - Schizophrenia, unspecified (5) COPD (chronic obstructive pulmonary disease): 02/15 - Continue home doses of guaifenesin, prednisone, fluticasone, and montelukast sodium - BiPAP ordered for use overnight; on continuous O2 supplementation - 1:1 and MNPR per protocol COPD type: unspecified COPD Qualified Code(s): J44.9 - Chronic obstructive pulmonary disease, unspecified (6) GERD (gastroesophageal reflux disease): 02/15 - Continue home dose of pantoprazole - Pharmacy recommended substitution of ranitidine with famotidine - ordered at 20mg BID (7) Diabetes mellitus type 2, controlled: 02/15 - Fasting glucose as above, maintenance of metabolic side effects related to continued use of brexpiprazole in combination with diabetes diagnosis - Will order A1c as well, as it does not appear this has been checked in the past year - Continue home dose of Januvia Inventory Assets Strengths: willingness for treatment, established outpatient providers, numerous outpatient support services, support of mother and sister Needs: development of effective coping strategies to manage anxiety in the setting of COPD, engagement of outpatient supports for collateral information and safety planning Risk Factors Assessment Male: No : Yes Health Problems: Yes Mental Health Diagnoses: Yes Substance Use Disorders: No Previous Attempt: Yes Previous Psychiatric Hospitalization: Yes Protective Factors Assessment : No Responsible for Young Children: No Employed: No Supportive Family: Yes Good Rapport with Provider: Yes Psychiatric History Identifying Data AMELIA RIVERS is a 58-year-old F who currently lives in [place], in a space she rents within her mother's home. Pt has a history of schizophrenia with reports of anxiety and depressive symptoms as well. Pt was admitted on 02/14/19 22:08 on a 201 voluntary commitment for increased anxiety, depression, and reports of SI with thoughts to cut her wrist and bleed out. Chief Complaint "Well, I have lung disease and my breathing got worse." History of Present Illness Amelia Rivers is a 58-year-old female admitted voluntarily for inpatient psychiatric treatment on 02/14/19 after presenting to the ED with reports of shortness of breath, worsening anxiety/depression, and thoughts to end her life by cutting her wrists and bleeding out. Pt has a history of schizophrenia as well as mention of anxiety and depressed mood in prior available documentation. Pt reported recent stressors of increased mental health and medical issues, stating that her anxiety was correlated with increased breathing difficulty. Pt denied attempts to self-harm since 2005 when she cut herself with a broken CD, but did verbalize means to end her life via cutting. Pt has several outpatient support services in place, including [facility], Case Management, [facility], and an in home health aid. She also reportedly has the support of mother and sister, with sister reportedly being out of town on vacation recently. Pt was unable to contract for safety after mental health evaluation in the ED, and was referred to our unit with desire for inpatient treatment. Pt is cooperative with psychiatric evaluation. She states that it has become more difficult for her to breath over the past month, and feels that this is contributing to increased anxiety and depression. Pt states that she has been having panic attacks three times a week, often presenting to the ED with a combination of shortness of breath and anxiety. Pt states she has been more frustrated recently, "when I was seen the the ER it wouldn't be enough to help me, I was getting more depressed each time I went." Pt states that prior to her presentation in the ED, she had been experiencing shortness of breath with inability to slow her breathing down. Pt states "you start to think you might not ever breathe again, that's pretty scary." Pt states that she had also recently asked her pulmonology provider about her "life expectancy", and had believed she was told a shorter period of time than her sister (RODRIGUEZ), who reportedly asked similar questions. When asked how patient took the news that she may have "18 months to a year and a half" to live, she states "Oh, I don't know. I guess it could be longer than that...but it could also be shorter. There really is no way to know." Pt reports concern that she experienced a "brain injury" in June or July of 2018, after an episode in which the patient states her brain was depleted of oxygen for a prolonged period. She states, "I was thinking really weird, I couldn't concentrate, my mood was getting worse. But I do think it all is getting better now." She states that she began having increased hopelessness and thoughts to harm herself after this event, but feels they have especially worsened over the past months - patient feeling increased knee pain may be contributing to this. She states that when thinking of ways to harm herself, she has a plan to utilize "a sharp knife" to cut her wrists and bleed out. In regard to symptoms of schizophrenia, the patient denies auditory or visual hallucinations. She does admit to feeling "paranoid" that "men can get into my room and have sex with me while I'm sleeping." She states that she does experience these events in real- time, but rather awakens in the morning with the belief that these things have happened while she is asleep. She denies significant safety concerns related to her current living situation. Past Psychiatric History Current Psychiatric Diagnosis: Anxiety, Depression, Schizophrenia Outpatient Services: Psychiatric prescriber - ROSLAIE Rodrigues Therapist - [facility] Previous Psych Admissions: History of numerous inpatient psychiatric admissions - [facility] History of Previous Suicide Attempt: Yes Describe Attempts in the Past: hx of attempting O/D and cutting Allergies Allergy/AdvReac Type Severity Reaction Status Date / Time hydroxyzine Allergy Unknown UNKNOWN Verified 02/14/19 19:23 fluphenazine AdvReac Intermediate confusion Verified 02/14/19 19:23 haloperidol AdvReac Intermediate "MAKES ME Verified 02/14/19 19:23 GO INTO BLACKOUT" hydrocodone AdvReac Intermediate DROWSY Verified 02/14/19 19:23 molindone AdvReac Intermediate PT FEELS Verified 02/14/19 19:23 LIKE SHES "JUMPING OUT OF HER SKIN" morphine AdvReac Intermediate DROWSY Verified 02/14/19 19:23 lithium AdvReac Mild "LEVEL CAN Verified 02/14/19 19:23 GET TOO HIGH" Home Medications Home Medications Medication Instructions Recorded Confirmed Type albuterol sulfate [Ventolin HFA] 2 puff INHALATION Q6H PRN 12/27/17 02/14/19 History calcitonin (salmon) 1 spray INTRANASAL QAM 12/27/17 02/14/19 History fenofibrate nanocrystallized 48 mg PO QAM 12/27/17 02/14/19 History [Tricor] ferrous sulfate [FerrouSul] 325 mg PO BIDM 12/27/17 02/14/19 History folic acid 1 mg PO QAM 12/27/17 02/14/19 History montelukast [Singulair] 10 mg PO HS 12/27/17 02/14/19 History Trelegy Ellipta 1 inh INHALATION QAM 02/18/18 02/14/19 History pantoprazole [Protonix] 40 mg PO BIDM 02/18/18 02/14/19 History magnesium hydroxide [Milk of 30 ml PO HS PRN 03/02/18 02/14/19 History Magnesia] Rexulti 3 mg PO QAM 06/26/18 02/14/19 History Trintellix 20 mg PO DAILY 07/19/18 02/14/19 History albuterol sulfate 2.5 mg INHALATION TID PRN 07/29/18 02/14/19 History bupropion HCl 100 mg PO DAILY 07/29/18 02/14/19 History benzonatate [Tessalon Perles] 100 mg PO TID PRN 07/30/18 02/14/19 History calcium-vitamin D3-vitamin K 1 tab PO BID 07/30/18 02/14/19 History clonazepam 0.25 mg PO BID PRN 08/20/18 02/14/19 History tramadol 50 mg PO Q6 PRN 08/20/18 02/14/19 History Januvia 100 mg PO DAILY 11/21/18 02/14/19 History acetaminophen [Tylenol Extra 1,000 mg PO TID PRN 11/21/18 02/14/19 History Strength] clozapine 100 mg PO BID 11/21/18 02/14/19 History diclofenac sodium [Voltaren] 2 g TOPICAL QID PRN 11/21/18 02/14/19 History docusate sodium 100 mg PO BID 11/21/18 02/14/19 History fluticasone propionate [Flonase 2 spray INTRANASAL DAILY 11/21/18 02/14/19 History Allergy Relief] gabapentin 200 mg PO BID 11/21/18 02/14/19 History metoprolol tartrate 12.5 mg PO BID 11/21/18 02/14/19 History ranitidine HCl 150 mg PO BID 11/21/18 02/14/19 History prednisone 10 mg PO TID 02/04/19 02/14/19 History clozapine 50 mg PO DAILY 02/14/19 02/14/19 History cyclobenzaprine 5 mg PO BID PRN 02/14/19 02/14/19 History guaifenesin [Mucinex] 1,200 mg PO BID 02/14/19 02/14/19 History Family History Family History of: Doesn't Know Alcohol History Hx of Alcohol Use Over the Past 12 Months: No AUDIT Total Score: 0 Smoking Use Have You Smoked or Used Tobacco Products in the Last 30 Days: No tobacco type: cigarettes Smoking Status: Former smoker Substance History Hx of Prescription Med Misuse Over the Past 12 Months: No Hx of Over the Counter Med Misuse Over the Past 12 Months: No Hx of Inhalent Misuse Over the Past 12 Months: No Hx of Organic Substance Use Over the Past 12 Months: No Hx of Illegal Substances/Street Drug Use Over Past 12 Months: No Problems as a Result of Past Substance Use: None Identified Personal History Living Arrangements: Apartment (rents space in mothers home, close proximity to sister and mother) Employment Status: Disabled Marital Status: Single Number Of Children: None Beliefs That Will Affect Care: Spiritual Patient History Medical History Anxiety (Chronic) Chronic back pain (Chronic) Chronic pain (Chronic) history of excessive sedation on narcotics no narcotics except for acute / severe pain Chronic respiratory failure with hypoxia, on home O2 therapy (Chronic) COPD (chronic obstructive pulmonary disease) (Chronic) Depression (Chronic) Diabetes mellitus type 2, controlled (Chronic) DVT (deep venous thrombosis) (Resolved) right leg--no blood thinners GERD (gastroesophageal reflux disease) (Chronic) GERD (gastroesophageal reflux disease) (Chronic) History of anesthesia reaction (Chronic) did not receive enough anesthesia during a colonoscopy and felt everything Orthostatic hypotension (Chronic) Osteoarthritis (Chronic) Pulmonary fibrosis (Chronic) Schizophrenia (Chronic) Spinal stenosis (Chronic) Surgical History History of open reduction and internal fixation (ORIF) procedure (Chronic) left femur--rods in place History of thoracic spinal fusion (Chronic) fusion and decompression t6-t12 History of tooth extraction (Chronic) all teeth removed History of total abdominal hysterectomy and bilateral salpingo-oophorectomy (Chronic) History of vascular access device (Chronic) Aport on right side Family History Grandmother (Paternal) Family hx of colon cancer Social History Preferred Language: Urdu Communication Ability: Effective Visual Impairment: No Limitations Shelf Stocker Required: No Beliefs That Will Affect Care: Spiritual marital status: Single Current Living Situation: Family Current Living Situation Comment: Pt. lives with mother and sister. Feels Safe at Home: No Is there a partner from a previous relationship who is making you feel unsafe now?: No Smoking Status: Former smoker Tobacco Type: cigarettes ; Second Hand Exposure: No ; Hx Alcohol Use: No Hx Substance Use: Yes substance use type: opiates Substance Use Type Other:: No longer Last Used Substance: Unknown Review of Systems Review of Systems: Constitutional: denied Cardiovascular: reports chest pain with anxiety and COPD exacerbation Respiratory: rather constant SOB Gastrointestinal: reports occasional constipation Neurological: reports episodic lightheadedness Psychiatric: denies symptoms other than stated above Musculoskeletal: reports chronic right knee and back pain Total of at least 10 systems reviewed, pertinent positives as above and in HPI. Physical Exam Psychiatric: Orientation: alert, oriented x 3 and cooperative Apperance: appropriately dressed, appropriately groomed and appeared stated age Obese, female in no acute distress. Observed while seated on bed, wearing nasal canula for O2 supplementation. Pt is casually dressed in a sweatshirt and scrub pants. Hair appearing mildly unkempt, but clean. Level of grooming and hygiene appears adequate. Eye Contact: good eye contact Motor Behavior: no abnormal motor movements (observed while sitting upright on edge of bed) Speech: normal rate/rhythm/volume of speech Affect: + blunted affect Mood: + depressed mood ("I have been getting more depressed") and + anxious mood ("The anxiety and panic attacks are happening three times a week") Thought Process: goal directed thought process, clear/coherent thought process and + concrete thought process Thought Content: + paranoid (related to delusions men are sneaking into her home while she sleeps), + delusions (predominantly reality-based, but does verbalize delusional thoughts) and + hopelessness Suicidal Thoughts: + reports suicidal thoughts (mildly improved since admission, but remain present), + reports suicidal plan and + reports suicidal intent Pt admitted to increasing SI with plan to cut her wrists and bleed out, verbalizing intensifying frustration with mental health and medical concerns leading to hopelessness and increased consideration to act on thoughts. Homicidal Thoughts: denies homicidal thoughts Hallucinations: no auditory hallucinations and no visual hallucinations Cognition: remote memory grossly intact, attention grossly intact and language grossly intact Insight: + limited insight Judgement: + limited judgement Vital Signs (Past 24 Hours): Last Vital Signs Temp 36.8 C 02/14/19 23:57 Pulse 78 02/15/19 06:46 Resp 20 02/15/19 06:46 BP 123/82 02/15/19 06:46 Pulse Ox 96 02/15/19 00:55 Exam Statement: A physical exam was performed in the ER prior to admission to the unit by Dr. Dougie Bravo DO. I accept that physical as correct/medical clearance for the inpatient physical exam. Results & Data Laboratory Results Laboratory Results - last 24 hr 02/14/19 02/14/19 02/14/19 17:45 17:45 17:45 WBC RBC Hgb Hct MCV MCH MCHC RDW Std Deviation RDW Coeff of Ivy Plt Count MPV Immature Gran % (Auto) Neut % (Auto) Lymph % (Auto) [place] % (Auto) Eos % (Auto) Baso % (Auto) Immature Gran # (Auto) Neut # (Auto) Lymph # (Auto) [place] # (Auto) Eos # (Auto) Baso # (Auto) Sodium Potassium Chloride Carbon Dioxide Anion Gap BUN Creatinine Est Cr Clr Drug Dosing Est GFR ( Amer) Est GFR (Non-Af Amer) BUN/Creatinine Ratio Glucose Calcium Total Bilirubin AST ALT Alkaline Phosphatase Troponin I Total Protein Albumin Globulin Albumin/Globulin Ratio TSH Urine Color Yellow Urine Appearance Clear Urine pH 6.0 Ur Specific [place] 1.005 Urine Protein Negative Urine Glucose (UA) Negative Urine Ketones Negative Urine Blood Negative Urine Nitrite Negative Urine Bilirubin Negative Urine Urobilinogen Negative Ur Leukocyte Esterase Negative Salicylates Urine Opiates Screen Neg Ur Methadone, Qual Neg Acetaminophen Urine Barbiturates Neg Ur Phencyclidine (PCP) Neg U Amphetamin/Meth Scrn Neg Urine MDEA Pending MDMA (Ecstasy) Screen Pos H MDMA Pending Urine MDMA Pending U Benzodiazepines Scrn Neg Ur Cocaine Metabolite Neg U Marijuana (THC) Screen Neg Ethyl Alcohol mg/dL 02/14/19 02/14/19 02/14/19 19:00 19:00 19:00 WBC 12.74 H RBC 4.39 Hgb 14.0 Hct 43.9 MCV 100.0 MCH 31.9 MCHC 31.9 L RDW Std Deviation 49.5 H RDW Coeff of Ivy 13.6 Plt Count 228 MPV 10.2 Immature Gran % (Auto) 1.0 Neut % (Auto) 86.1 Lymph % (Auto) 6.2 [place] % (Auto) 6.0 Eos % (Auto) 0.5 Baso % (Auto) 0.2 Immature Gran # (Auto) 0.13 H Neut # (Auto) 10.97 H Lymph # (Auto) 0.79 L [place] # (Auto) 0.76 H Eos # (Auto) 0.07 Baso # (Auto) 0.02 Sodium 138 Potassium 4.3 Chloride 106 Carbon Dioxide 32 Anion Gap 0 L BUN 21 H Creatinine 1.01 Est Cr Clr Drug Dosing 70.0 Est GFR ( Amer) 70.6 Est GFR (Non-Af Amer) 60.9 BUN/Creatinine Ratio 20.7 H Glucose 180 H Calcium 8.9 Total Bilirubin 0.2 AST 23 ALT 34 Alkaline Phosphatase 59 Troponin I < 0.015 Total Protein 8.1 Albumin 3.5 Globulin 4.6 H Albumin/Globulin Ratio 0.8 L TSH 0.977 Urine Color Urine Appearance Urine pH Ur Specific [place] Urine Protein Urine Glucose (UA) Urine Ketones Urine Blood Urine Nitrite Urine Bilirubin Urine Urobilinogen Ur Leukocyte Esterase Salicylates < 1.7 L Urine Opiates Screen Ur Methadone, Qual Acetaminophen 11 Urine Barbiturates Ur Phencyclidine (PCP) U Amphetamin/Meth Scrn Urine MDEA MDMA (Ecstasy) Screen MDMA Urine MDMA U Benzodiazepines Scrn Ur Cocaine Metabolite U Marijuana (THC) Screen Ethyl Alcohol mg/dL 02/14/19 19:00 WBC RBC Hgb Hct MCV MCH MCHC RDW Std Deviation RDW Coeff of Ivy Plt Count MPV Immature Gran % (Auto) Neut % (Auto) Lymph % (Auto) [place] % (Auto) Eos % (Auto) Baso % (Auto) Immature Gran # (Auto) Neut # (Auto) Lymph # (Auto) [place] # (Auto) Eos # (Auto) Baso # (Auto) Sodium Potassium Chloride Carbon Dioxide Anion Gap BUN Creatinine Est Cr Clr Drug Dosing Est GFR ( Amer) Est GFR (Non-Af Amer) BUN/Creatinine Ratio Glucose Calcium Total Bilirubin AST ALT Alkaline Phosphatase Troponin I Total Protein Albumin Globulin Albumin/Globulin Ratio TSH Urine Color Urine Appearance Urine pH Ur Specific [place] Urine Protein Urine Glucose (UA) Urine Ketones Urine Blood Urine Nitrite Urine Bilirubin Urine Urobilinogen Ur Leukocyte Esterase Salicylates Urine Opiates Screen Ur Methadone, Qual Acetaminophen Urine Barbiturates Ur Phencyclidine (PCP) U Amphetamin/Meth Scrn Urine MDEA MDMA (Ecstasy) Screen MDMA Urine MDMA U Benzodiazepines Scrn Ur Cocaine Metabolite U Marijuana (THC) Screen Ethyl Alcohol mg/dL < 3.0 Current Inpatient Medications Current Inpatient Medications: Current Inpatient Medications Acetaminophen (Tylenol) 650 mg PO Q4H PRN PRN Reason: Headache or Minor Fever Stop: 03/16/19 22:07 Al Hydrox/Mg Hydrox/Simethicone (Maalox) 30 ml PO Q4H PRN PRN Reason: GI Upset Stop: 03/16/19 22:07 Albuterol (Ventolin Hfa) 2 puffs INH Q6H PRN PRN Reason: Shortness Of Breath Or Wheezing Stop: 03/16/19 22:13 Albuterol (Ventolin 0.083% 2.5mg/3ml) 2.5 mg INH TID PRN PRN Reason: Shortness Of Breath Stop: 03/16/19 22:13 Last Admin: 02/15/19 00:36 Dose: 2.5 mg Documented by: Benzonatate (Tessalon Perle) 100 mg PO TID PRN PRN Reason: Cough Stop: 03/16/19 22:13 Bismuth Subsalicylate (Kaopectate) 15 ml PO PRN PRN PRN Reason: Loose Stool Stop: 03/16/19 22:07 Bupropion HCl (Wellbutrin-Sr) 100 mg PO DAILY [facility] Stop: 03/17/19 08:59 Last Admin: 02/15/19 10:01 Dose: 100 mg Documented by: Calcitonin [place] (Fortical) 1 sprays NA QAM [facility] Stop: 03/17/19 08:59 Last Admin: 02/15/19 10:03 Dose: 1 sprays Documented by: Clonazepam (Klonopin) 0.25 mg PO BID PRN PRN Reason: Panic Attack(S) Stop: 03/16/19 22:13 Clozapine (Clozaril) 50 mg PO 1200 [facility] Stop: 03/17/19 11:59 Last Admin: 02/15/19 12:07 Dose: 50 mg Documented by: Clozapine (Clozapine) 100 mg PO BID [facility] Stop: 03/16/19 22:29 Last Admin: 02/15/19 10:01 Dose: 100 mg Documented by: Cyclobenzaprine HCl (Flexeril) 5 mg PO BID PRN PRN Reason: Muscle Spasm Stop: 03/16/19 22:13 Diclofenac Sodium (Voltaren 1% Top) 2 gm EXT QID PRN PRN Reason: Pain Stop: 03/16/19 22:13 Docusate Sodium (Colace) 100 mg PO BID [facility] Stop: 03/16/19 22:29 Last Admin: 02/15/19 10:03 Dose: 100 mg Documented by: Famotidine (Pepcid) 20 mg PO BID [facility] Stop: 03/16/19 22:29 Last Admin: 02/15/19 10:01 Dose: 20 mg Documented by: Fenofibrate (Fenofibrate) 48 mg PO QAM [facility] Stop: 03/17/19 08:59 Last Admin: 02/15/19 10:01 Dose: 48 mg Documented by: Ferrous Sulfate (Feosol) 325 mg PO BIDM [facility] Stop: 03/17/19 07:59 Last Admin: 02/15/19 10:03 Dose: 325 mg Documented by: Fluticasone Propionate (Flonase) 2 sprays NA DAILY [facility] Stop: 03/17/19 08:59 Last Admin: 02/15/19 10:03 Dose: 2 sprays Documented by: Folic Acid (Folvite) 1 mg PO QAM [facility] Stop: 03/17/19 08:59 Last Admin: 02/15/19 10:03 Dose: 1 mg Documented by: Gabapentin (Neurontin) 200 mg PO BID [facility] Stop: 03/16/19 22:29 Last Admin: 02/15/19 10:01 Dose: 200 mg Documented by: Guaifenesin (Mucinex) 1,200 mg PO BID [facility] Stop: 03/17/19 08:59 Last Admin: 02/15/19 10:01 Dose: 1,200 mg Documented by: Magnesium Hydroxide (Milk Of Magnesia) 30 ml PO DAILY PRN PRN Reason: Constipation Stop: 03/16/19 22:07 Metoprolol Tartrate (Lopressor) 12.5 mg PO BID [facility] Stop: 03/17/19 08:59 Last Admin: 02/15/19 10:01 Dose: 12.5 mg Documented by: Miscellaneous (Order Awaiting Action) 1 ea N/A QS [facility] Stop: 03/16/19 22:29 Last Admin: 02/15/19 00:45 Dose: Not Given Documented by: Miscellaneous (Order Awaiting Action) 1 ea N/A QS [facility] Stop: 03/16/19 22:29 Last Admin: 02/15/19 00:45 Dose: Not Given Documented by: Miscellaneous (Order Awaiting Action) 1 ea N/A QS [facility] Stop: 03/16/19 22:29 Last Admin: 02/15/19 00:45 Dose: Not Given Documented by: Montelukast Sodium (Singulair) 10 mg PO HS [facility] Stop: 03/17/19 20:59 Pantoprazole Sodium (Protonix) 40 mg PO BIDM [facility] Stop: 03/17/19 07:59 Last Admin: 02/15/19 10:01 Dose: 40 mg Documented by: Prednisone (Prednisone) 10 mg PO TID [facility] Stop: 03/17/19 08:59 Last Admin: 02/15/19 10:01 Dose: 10 mg Documented by: Sitagliptin Phosphate (Januvia) 100 mg PO DAILY [facility] Stop: 03/17/19 08:59 Last Admin: 12/21/19 10:03 Dose: 100 mg Documented by: Sodium Chloride ([place] Nasal) 1 - 2 sprays NA PRN PRN PRN Reason: Nasal Dryness/Congestion Stop: 03/16/19 22:07 Tramadol HCl (Ultram) 50 mg PO Q6 PRN PRN Reason: Pain Stop: 03/16/19 22:13 Tramadol HCl (Ultram) 75 mg PO 0800 [facility] Stop: 03/18/19 07:59
[2019-02-15] MEDS: clonazePAM 0.5 MG TAB PO PRN (13:53)
[2019-02-15] MEDS: ALBUTEROL HFA 8 GM INHALER INH PRN ×2 (14:18→21:32)
[2019-02-15] MEDS: CYCLOBENZAPRINE HCL 5 MG TAB PO PRN ×2 (15:50→22:01)
[2019-02-15] MEDS: TRAMADOL HCL 50 MG TABLET PO PRN (19:58)
[2019-02-15] MEDS: MONTELUKAST SODIUM 10 MG TABLET PO SCH (21:04)
[2019-02-16 07:41] LABS: Glucose Fasting 141 mg/dl (70-99)
[2019-02-16 07:48] LABS: Chol HDL Ratio 2; Cholesterol 205 mg/dl (0-200); HDL Cholesterol 114 mg/dl; LDL Cholesterol Calculated 73 mg/dl; Triglycerides 88 mg/dl (0-150); VLDL Cholesterol 18 mg/dl
[2019-02-16] MEDS ORDERED: TRAMADOL HCL 50 MG TABLET PO SCH (09:00)
[2019-02-16] MEDS: cloZAPine 100 MG TAB PO SCH ×2 (09:56→21:17)
[2019-02-16] MEDS: FENOFIBRATE NANOCRYSTALLIZED 48 MG TABLET PO SCH (09:57)
[2019-02-16] MEDS: DOCUSATE SODIUM 100 MG CAP PO SCH ×2 (09:57→21:17)
[2019-02-16] MEDS: FERROUS SULFATE 325 MG TAB PO SCH ×2 (09:58→18:27)
[2019-02-16] MEDS: CALCITONIN SALMON NA 200 IU/AC 3.7 ML BTL SCH (09:59)
[2019-02-16] MEDS: FLUTICASONE PROPIONATE NA SPR 16 GM BTL SCH (09:59)
[2019-02-16] MEDS: FOLIC ACID 1 MG TAB PO SCH (09:59)
[2019-02-16] MEDS: METOPROLOL TARTRATE 25 MG TAB PO SCH ×2 (10:00→21:19)
[2019-02-16] MEDS: SITAGLIPTIN PHOSPHATE 100 MG TAB PO SCH (10:00)
[2019-02-16] MEDS: GABAPENTIN 100 MG CAP PO SCH ×2 (10:01→21:21)
[2019-02-16] MEDS: guaiFENesin 600 MG TABCR PO SCH ×2 (10:01→21:19)
[2019-02-16] MEDS: REXULTI PO SCH (10:02)
[2019-02-16] MEDS: FAMOTIDINE 20 MG TAB PO SCH ×2 (10:03→21:21)
[2019-02-16] MEDS: predniSONE 10 MG TABLET PO SCH ×3 (10:03→21:21)
[2019-02-16] MEDS: PANTOprazole 40 MG TAB PO SCH ×2 (10:03→18:27)
[2019-02-16] MEDS: VILANTER INH SCH (10:05)
[2019-02-16] MEDS: FLUTICASONE INH SCH (10:05)
[2019-02-16] MEDS: UMECLIDIN INH SCH (10:05)
[2019-02-16] MEDS: TRAMADOL HCL 50 MG TABLET PO SCH (10:06)
[2019-02-16] MEDS: VORTIOXETINE HYDROBROMIDE PO SCH (10:06)
[2019-02-16] MEDS: BuPROPion SR 100 MG TABCR PO SCH (10:06)
--- NOTE | 2019-02-16 11:11 | Psychiatric Progress Note ---
Date of Service February 16, 2019 Impression / Recommendations Impression 58-year-old female admitted voluntarily for inpatient psychiatric treatment on 02/14/19 after presenting to the ED with verbalized worsening depression and anxiety, stating she has been having SI with consideration to cut her wrists and bleed out. Pt has a long history of schizophrenia, paranoid type and is well- known to our service from prior inpatient psychiatric admissions as well as consultations while on the medical floor. Pt has a history of COPD with chronic oxygen supplementation, which is likely related to her exacerbation of anxiety symptoms as well. As patient is somewhat complex with regard to treatment history and is a limited historian, it is felt that obtaining collateral information from patient's sister and outpatient provider will be important before making major adjustments to her medication regimen. Pt was informed of this recommendation, and agrees that she would appreciate her psychiatric [facility] and PCP be involved in treatment decisions. Until collateral information can be obtained, we will actively involve the patient in group and recreational therapy with maintaining safety on a locked behavioral health unit. Pt will be encouraged to involve outpatient supports in a family meeting to discuss aftercare and discharge planning. At this time, inpatient psychiatric admission is medically necessary due to patient's ongoing suicidal ideation with access to means, history of prior suicide attempts, and high risk of completion due to long history of disease and significant medical concerns. Pt is a high risk of harm to self if she is discharged prematurely without adequate mitigation of risk factors. (1) Suicidal ideations: 02/15 - Admitted to a locked inpatient behavioral health unit, on q15 minute safety checks - Encourage medication initiation/adjustments as indicated - Encourage participation in group and recreational therapies - Gather collateral information from outpatient providers - Suggest family meeting to involve outpatient supports in safety planning - Arrange appropriate aftercare 02/16 - Pt's perception is reportedly that SI is ongoing, finding herself still "think about the knife" (2) Anxiety: 02/15 - Continue current medication regimen unchanged at this time; will attempt to gather collateral information from family regarding changes in the patient's condition, will also attempt to coordinate care with outpatient psychiatric providers - Encourage participation in group and recreational programming - Assist with development of healthy and effective coping strategies to target anxiety symptoms - Engage outpatient support services in clear aftercare and safety planning - Encourage participation in a family meeting 02/16 - Pt denies "bad spells" since admission, but is able to appreciate the need for coping strategies that can prevent her from inappropriately calling 911 - Continue current medication regimen; will attempt to obtain collateral information from outpatient providers - Staff to obtain collateral information from patient's mother and sister - Family meeting with sister, currently scheduled for 02/18 (3) Mood disorder: 02/15 - Same as above - continue current medication regimen until collateral information can be gathered from outpatient psychiatric providers - Fasting glucose and lipid panel ordered for tomorrow morning as patient is being continued on brexpiprazole, no history of fasting labs within the last 3 months, diabetes diagnosis - Encourage attendance of group and recreational programming 02/16 - Fasting glucose and lipid panel ordered - fasting glucose was elevated at 141; total cholesterol elevated at 205, other values within normal limits (A1c pending) - Pt continues to report depressive symptoms (4) Schizophrenia: 02/15 - Other than a brief mention of "paranoia" regarding men being able to break into her home while she is sleeping, the patient does not verbalize exacerbation of symptoms related to her schizophrenia diagnosis - Will attempt to gather collateral information from sister/mother to determine stability of the condition - Will maintain clozapine TID dosing at 100mg/50mg/100mg daily; CBC w/ diff ordered as part of ED work-up, ANC - 10.97. Will order serial CBC w/ diff, as duration of admission is unknown at this time - At this time, treatment of symptoms related to schizophrenia diagnosis does not seem to be primary focus of treatment (5) COPD (chronic obstructive pulmonary disease): 02/15 - Continue home doses of guaifenesin, prednisone, fluticasone, and montelukast sodium - BiPAP ordered for use overnight; on continuous O2 supplementation - 1:1 and MNPR per protocol (6) GERD (gastroesophageal reflux disease): 02/15 - Continue home dose of pantoprazole - Pharmacy recommended substitution of ranitidine with famotidine - ordered at 20mg BID (7) Diabetes mellitus type 2, controlled: 02/15 - Fasting glucose as above, maintenance of metabolic side effects related to continued use of brexpiprazole in combination with diabetes diagnosis - Will order A1c as well, as it does not appear this has been checked in the past year - Continue home dose of Januvia 02/16 - Fasting glucose elevated at 141 this morning; HgbA1c is still pending - Would suggest continued follow-up with PCP for diabetes management Inventory Assets Strengths: willingness for treatment, established outpatient providers, numerous outpatient support services, support of mother and sister Needs: development of effective coping strategies to manage anxiety in the setting of COPD, engagement of outpatient supports for collateral information and safety planning Risk Factors Assessment Male: No : Yes Health Problems: Yes Mental Health Diagnoses: Yes Substance Use Disorders: No Previous Attempt: Yes Previous Psychiatric Hospitalization: Yes Protective Factors Assessment : No Responsible for Young Children: No Employed: No Supportive Family: Yes Good Rapport with Provider: Yes Interval History Identifying Information VIVIEN RIVERS is a 58-year-old F who currently lives in [place], in a space she rents within her mother's home. Pt has a history of schizophrenia with reports of anxiety and depressive symptoms as well. Pt was admitted on 02/14/19 22:08 on a 201 voluntary commitment for increased anxiety, depression, and reports of SI with thoughts to cut her wrist and bleed out. Chief Complaint "I am fine. I think I took too many meds last night." Review of Systems Notes Constitutional: reports headache Cardiovascular: denied Respiratory: reports continued shortness of breath Gastrointestinal: denied Neurological: denied Psychiatric: denies symptoms other than stated above Total of at least 10 systems reviewed, pertinent positives as above and in HPI. Sleep Information Total Hours of Sleep: 5.75 Sleep Comments: cpap on during the night. Meal Information Percent Meal Consumed - Breakfast: 50 Percent Meal Consumed - Lunch: 100 Percent Meal Consumed - Dinner: 100 Subjective Subjective Patient was seen & assessed and interval progress reviewed during morning report. Staff reports the patient had a good visit with her sister and mother last evening. Patient attended community meeting last evening, rating her mood a 3/10 and "angry", staff interpreting this feeling word to mean patient is frustrated with her situation. Patient was seen today to assess progress since admission. She informs this provider that she is "fine." She states that her mood is improved this morning, but she is upset she slept through community meeting. Patient says she took multiple as needed medications last evening for anxiety and pain, and feels that they caused her to sleep in longer than she desired this morning. Patient responds in the affirmative when asked about ongoing suicidal thoughts. Interestingly, when asked to describe these thoughts, the patient states "it is more like what can I do? I have to except my condition." She later does admit, "I do find myself thinking about the knife still." Patient spent time speaking with this provider about developing an alternative to calling 911 with periods of anxiety. Patient states "I am probably going to get a citation if I call 911 again." Patient states that she has been informed she should be calling other supports before she calls the emergency line, but finds this difficult to remember. Patient reports feeling "powerless" when symptoms of shortness of breath and anxiety occur. We discussed that having a clear plan the patient feels confident using will assist with providing her back with a lot of this power. Patient states that her visit with sister and mother last evening was "good", and she states "they want me home." Patient was asked her thoughts on this, to which she states "I want to go home. I have not had a bad spell while I've been here." We discussed utilizing the remainder of her admission to develop a safety plan and effective coping strategies to manage her anxiety on an outpatient basis. Patient denies other specific needs or concerns today. Physical Exam Psychiatric Orientation: alert, oriented x 3 and cooperative (And pleasant) Apperance: appropriately dressed (Casually, wearing hoodie and scrub pants) and appropriately groomed (Hair only mildly unkempt) Eye Contact: good eye contact Motor Behavior: no abnormal motor movements (Observed while sitting upright on edge of bed) Speech: normal rate/rhythm/volume of speech Affect: + blunted affect and mood congruent with affect Mood: + depressed mood and + anxious mood Thought Process: goal directed thought process, clear/coherent thought process, + concrete thought process and thought association intact Thought Content: reality based without delusions; no hopelessness Suicidal Thoughts: + reports suicidal thoughts and + reports suicidal plan (stating she is still "thinking about the knife") Homicidal Thoughts: denies homicidal thoughts Hallucinations: no auditory hallucinations and no visual hallucinations Cognition: attention grossly intact and language grossly intact Insight: + limited insight Judgement: + fair judgement Vital Signs (Past 24 Hours) Last Vital Signs Temp 36.8 C 02/14/19 23:57 Pulse 77 02/16/19 06:34 Resp 20 02/16/19 06:34 BP 111/73 02/16/19 06:34 Pulse Ox 91 02/16/19 03:53 Results & Data Laboratory Results Laboratory Results - last 24 hr 02/16/19 02/16/19 06:59 06:59 Fasting Glucose 141 H Estimat Average Glucose Pending Hemoglobin A1c Pending Triglycerides 88 Cholesterol 205 H LDL Cholesterol, Calc 73 VLDL Cholesterol, Calc 18 HDL Cholesterol 114 Cholesterol/HDL Ratio 2 Current Inpatient Medications Current Inpatient Medications: Current Inpatient Medications Acetaminophen (Tylenol) 650 mg PO Q4H PRN PRN Reason: Headache or Minor Fever Stop: 03/16/19 22:07 Al Hydrox/Mg Hydrox/Simethicone (Maalox) 30 ml PO Q4H PRN PRN Reason: GI Upset Stop: 03/16/19 22:07 Albuterol (Ventolin Hfa) 2 puffs INH Q6H PRN PRN Reason: Shortness Of Breath Or Wheezing Stop: 03/16/19 22:13 Last Admin: 02/15/19 21:32 Dose: 2 puffs Documented by: Albuterol (Ventolin 0.083% 2.5mg/3ml) 2.5 mg INH TID PRN PRN Reason: Shortness Of Breath Stop: 03/16/19 22:13 Last Admin: 02/15/19 00:36 Dose: 2.5 mg Documented by: Benzonatate (Tessalon Perle) 100 mg PO TID PRN PRN Reason: Cough Stop: 03/16/19 22:13 Bismuth Subsalicylate (Kaopectate) 15 ml PO PRN PRN PRN Reason: Loose Stool Stop: 03/16/19 22:07 Bupropion HCl (Wellbutrin-Sr) 100 mg PO DAILY [facility] Stop: 03/17/19 08:59 Last Admin: 02/16/19 10:06 Dose: 100 mg Documented by: Calcitonin Whitney (Fortical) 1 sprays NA QAM [facility] Stop: 03/17/19 08:59 Last Admin: 02/16/19 09:59 Dose: 1 sprays Documented by: Clonazepam (Klonopin) 0.25 mg PO BID PRN PRN Reason: Panic Attack(S) Stop: 03/16/19 22:13 Last Admin: 02/15/19 13:53 Dose: 0.25 mg Documented by: Clozapine (Clozaril) 50 mg PO 1200 [facility]AN Stop: 03/17/19 11:59 Last Admin: 02/15/19 12:07 Dose: 50 mg Documented by: Clozapine (Clozapine) 100 mg PO BID [facility] Stop: 03/16/19 22:29 Last Admin: 02/16/19 09:56 Dose: 100 mg Documented by: Cyclobenzaprine HCl (Flexeril) 5 mg PO BID PRN PRN Reason: Muscle Spasm Stop: 03/16/19 22:13 Last Admin: 02/15/19 22:01 Dose: 5 mg Documented by: Diclofenac Sodium (Voltaren 1% Top) 2 gm EXT QID PRN PRN Reason: Pain Stop: 03/16/19 22:13 Docusate Sodium (Colace) 100 mg PO BID [facility] Stop: 03/16/19 22:29 Last Admin: 02/16/19 09:57 Dose: 100 mg Documented by: Famotidine (Pepcid) 20 mg PO BID [facility] Stop: 03/16/19 22:29 Last Admin: 02/16/19 10:03 Dose: 20 mg Documented by: Fenofibrate (Fenofibrate) 48 mg PO QAM [facility] Stop: 03/17/19 08:59 Last Admin: 02/16/19 09:57 Dose: 48 mg Documented by: Ferrous Sulfate (Feosol) 325 mg PO BIDM [facility] Stop: 03/17/19 07:59 Last Admin: 02/16/19 09:58 Dose: 325 mg Documented by: Fluticasone Propionate (Flonase) 2 sprays NA DAILY [facility] Stop: 03/17/19 08:59 Last Admin: 02/16/19 09:59 Dose: 2 sprays Documented by: Fluticasone/Umeclidinium/Vilanterol (Trelegy Ellipta 100-62.5-25) 1 ea INH QAM [facility] Stop: 03/18/19 08:59 Last Admin: 02/16/19 10:05 Dose: 1 ea Documented by: Folic Acid (Folvite) 1 mg PO QAM [facility] Stop: 03/17/19 08:59 Last Admin: 02/16/19 09:59 Dose: 1 mg Documented by: Gabapentin (Neurontin) 200 mg PO BID [facility] Stop: 03/16/19 22:29 Last Admin: 02/16/19 10:01 Dose: 200 mg Documented by: Guaifenesin (Mucinex) 1,200 mg PO BID [facility] Stop: 03/17/19 08:59 Last Admin: 02/16/19 10:01 Dose: 1,200 mg Documented by: Magnesium Hydroxide (Milk Of Magnesia) 30 ml PO DAILY PRN PRN Reason: Constipation Stop: 03/16/19 22:07 Metoprolol Tartrate (Lopressor) 12.5 mg PO BID [facility] Stop: 03/17/19 08:59 Last Admin: 02/16/19 10:00 Dose: 12.5 mg Documented by: Montelukast Sodium (Singulair) 10 mg PO HS [facility] Stop: 03/17/19 20:59 Last Admin: 02/15/19 21:04 Dose: 10 mg Documented by: Karlee 3 Mg / Non- Formulary Patient's Own Med 1 ea PO QAM [facility] Stop: 03/18/19 08:59 Last Admin: 02/16/19 10:02 Dose: 1 ea Documented by: Pantoprazole Sodium (Protonix) 40 mg PO BIDM [facility] Stop: 03/17/19 07:59 Last Admin: 02/16/19 10:03 Dose: 40 mg Documented by: Prednisone (Prednisone) 10 mg PO TID [facility] Stop: 03/17/19 08:59 Last Admin: 02/16/19 10:03 Dose: 10 mg Documented by: Sitagliptin Phosphate (Januvia) 100 mg PO DAILY [facility] Stop: 03/17/19 08:59 Last Admin: 02/16/19 10:00 Dose: 100 mg Documented by: Sodium Chloride ([place] Nasal) 1 - 2 sprays NA PRN PRN PRN Reason: Nasal Dryness/Congestion Stop: 03/16/19 22:07 Tramadol HCl (Ultram) 50 mg PO Q6 PRN PRN Reason: Pain Stop: 03/16/19 22:13 Last Admin: 02/15/19 19:58 Dose: 50 mg Documented by: Tramadol HCl (Ultram) 75 mg PO 0800 [facility] Stop: 03/18/19 07:59 Last Admin: 02/16/19 10:06 Dose: 75 mg Documented by: Vortioxetine (Trintellix) 1 ea PO QAM [facility] Stop: 03/18/19 08:59 Last Admin: 02/16/19 10:06 Dose: 1 ea Documented by: Mental Health & Subst Abuse Tx Therapist Name of Therapist: Mansi @ [facility] Monument Setter Name of Monument Setter: Barbara James - [facility] Post Discharge Appointments Primary Care Physician Name Of Family Doctor: Dr. Adam Date of Appointment with PCP: 03/10/19 (1) Schizophrenia Schizophrenia type: unspecified Qualified Code(s): F20.9 - Schizophrenia, unspecified (2) COPD (chronic obstructive pulmonary disease) COPD type: unspecified COPD Qualified Code(s): J44.9 - Chronic obstructive pulmonary disease, unspecified
[2019-02-16] MEDS: cloZAPine 25 MG TAB PO SCH (11:59)
[2019-02-16] MEDS: clonazePAM 0.5 MG TAB PO PRN ×2 (12:00→18:56)
[2019-02-16] MEDS: TRAMADOL HCL 50 MG TABLET PO PRN (13:16)
[2019-02-16] MEDS: ALBUTEROL HFA 8 GM INHALER INH PRN ×2 (13:16→21:42)
[2019-02-16] MEDS: CYCLOBENZAPRINE HCL 5 MG TAB PO PRN ×2 (16:57→22:33)
[2019-02-16] MEDS: MONTELUKAST SODIUM 10 MG TABLET PO SCH (21:22)
[2019-02-17 07:14] LABS: Estimated Average Glucose 128 mg/dl; Hemoglobin A1C 6.1 % (4.5-5.6)
[2019-02-17] MEDS: TRAMADOL HCL 50 MG TABLET PO SCH (08:26)
[2019-02-17] MEDS: DOCUSATE SODIUM 100 MG CAP PO SCH ×2 (08:27→21:18)
[2019-02-17] MEDS: cloZAPine 100 MG TAB PO SCH (08:27)
[2019-02-17] MEDS: FOLIC ACID 1 MG TAB PO SCH (08:28)
[2019-02-17] MEDS: FENOFIBRATE NANOCRYSTALLIZED 48 MG TABLET PO SCH (08:28)
[2019-02-17] MEDS: FERROUS SULFATE 325 MG TAB PO SCH ×2 (08:28→17:16)
[2019-02-17] MEDS: FLUTICASONE PROPIONATE NA SPR 16 GM BTL SCH (08:28)
[2019-02-17] MEDS: SITAGLIPTIN PHOSPHATE 100 MG TAB PO SCH (08:29)
[2019-02-17] MEDS: CALCITONIN SALMON NA 200 IU/AC 3.7 ML BTL SCH (08:29)
[2019-02-17] MEDS: METOPROLOL TARTRATE 25 MG TAB PO SCH ×2 (08:30→21:19)
[2019-02-17] MEDS: guaiFENesin 600 MG TABCR PO SCH ×2 (08:31→21:21)
[2019-02-17] MEDS: GABAPENTIN 100 MG CAP PO SCH ×2 (08:32→21:21)
[2019-02-17] MEDS: REXULTI PO SCH (08:32)
[2019-02-17] MEDS: predniSONE 10 MG TABLET PO SCH ×3 (08:33→21:21)
[2019-02-17] MEDS: PANTOprazole 40 MG TAB PO SCH ×2 (08:33→17:16)
[2019-02-17] MEDS: FAMOTIDINE 20 MG TAB PO SCH ×2 (08:33→21:21)
[2019-02-17] MEDS: VORTIOXETINE HYDROBROMIDE PO SCH (08:34)
[2019-02-17] MEDS: VILANTER INH SCH (08:34)
[2019-02-17] MEDS: FLUTICASONE INH SCH (08:34)
[2019-02-17] MEDS: UMECLIDIN INH SCH (08:34)
[2019-02-17] MEDS: BuPROPion SR 100 MG TABCR PO SCH (08:35)
[2019-02-17] MEDS: ALBUTEROL HFA 8 GM INHALER INH PRN (09:22)
[2019-02-17] MEDS: clonazePAM 0.5 MG TAB PO PRN ×2 (11:02→20:03)
--- NOTE | 2019-02-17 11:30 | Psychiatric Progress Note ---
Date of Service February 17, 2019 Impression / Recommendations Impression 58-year-old female admitted voluntarily for inpatient psychiatric treatment on 02/14/19 after presenting to the ED with verbalized worsening depression and anxiety, stating she has been having SI with consideration to cut her wrists and bleed out. Pt has a long history of schizophrenia, paranoid type and is well- known to our service from prior inpatient psychiatric admissions as well as consultations while on the medical floor. Pt has a history of COPD with chronic oxygen supplementation, which is likely related to her exacerbation of anxiety symptoms as well. As patient is somewhat complex with regard to treatment history and is a limited historian, it is felt that obtaining collateral information from patient's sister and outpatient provider will be important before making major adjustments to her medication regimen. Pt was informed of this recommendation, and agrees that she would appreciate her psychiatric BIOMEDICAL INSTRUMENT TECHNICIAN and PCP be involved in treatment decisions. Until collateral information can be obtained, we will actively involve the patient in group and recreational therapy with maintaining safety on a locked behavioral health unit. Pt will be encouraged to involve outpatient supports in a family meeting to discuss aftercare and discharge planning. At this time, inpatient psychiatric admission is medically necessary due to patient's history of prior suicide attempts, and high risk of completion due to long history of disease and significant medical concerns. Pt is a high risk of harm to self if she is discharged prematurely without adequate mitigation of risk factors. (1) Suicidal ideations: 02/15 - Admitted to a locked inpatient behavioral health unit, on q15 minute safety checks - Encourage medication initiation/adjustments as indicated - Encourage participation in group and recreational therapies - Gather collateral information from outpatient providers - Suggest family meeting to involve outpatient supports in safety planning - Arrange appropriate aftercare 02/16 - Pt's perception is reportedly that SI is ongoing, finding herself still "think about the knife" 02/17 - Pt is denying SI today, verbalizing desire to create safety plan to reduce perceived need to call 911 during acute panic attacks and SOB (2) Anxiety: 02/15 - Continue current medication regimen unchanged at this time; will attempt to gather collateral information from family regarding changes in the patient's condition, will also attempt to coordinate care with outpatient psychiatric providers - Encourage participation in group and recreational programming - Assist with development of healthy and effective coping strategies to target anxiety symptoms - Engage outpatient support services in clear aftercare and safety planning - Encourage participation in a family meeting 02/16 - Pt denies "bad spells" since admission, but is able to appreciate the need for coping strategies that can prevent her from inappropriately calling 911 - Continue current medication regimen; will attempt to obtain collateral information from outpatient providers - Staff to obtain collateral information from patient's mother and sister - Family meeting with sister, currently scheduled for 02/18 02/17 - Continue current treatment plan as outlined above - Assist in the creation of a safety plan, to utilize prior to calling 911 for acute panic (3) Mood disorder: 02/15 - Same as above - continue current medication regimen until collateral information can be gathered from outpatient psychiatric providers - Fasting glucose and lipid panel ordered for tomorrow morning as patient is being continued on brexpiprazole, no history of fasting labs within the last 3 months, diabetes diagnosis - Encourage attendance of group and recreational programming 02/16 - Fasting glucose and lipid panel ordered - fasting glucose was elevated at 141; total cholesterol elevated at 205, other values within normal limits (A1c pending) - Pt continues to report depressive symptoms (4) Schizophrenia: 02/15 - Other than a brief mention of "paranoia" regarding men being able to break into her home while she is sleeping, the patient does not verbalize exacerbation of symptoms related to her schizophrenia diagnosis - Will attempt to gather collateral information from sister/mother to determine stability of the condition - Will maintain clozapine TID dosing at 100mg/50mg/100mg daily; CBC w/ diff ordered as part of ED work-up, ANC - 10.97. Will order serial CBC w/ diff, as duration of admission is unknown at this time - At this time, treatment of symptoms related to schizophrenia diagnosis does not seem to be primary focus of treatment (5) COPD (chronic obstructive pulmonary disease): 02/15 - Continue home doses of guaifenesin, prednisone, fluticasone, and mon telukast sodium - BiPAP ordered for use overnight; on continuous O2 supplementation - 1:1 and MNPR per protocol (6) GERD (gastroesophageal reflux disease): 02/15 - Continue home dose of pantoprazole - Pharmacy recommended substitution of ranitidine with famotidine - ordered at 20mg BID (7) Diabetes mellitus type 2, controlled: 02/15 - Fasting glucose as above, maintenance of metabolic side effects related to continued use of brexpiprazole in combination with diabetes diagnosis - Will order A1c as well, as it does not appear this has been checked in the past year - Continue home dose of Januvia 02/16 - Fasting glucose elevated at 141 this morning; HgbA1c is still pending - Would suggest continued follow-up with PCP for diabetes management Inventory Assets Strengths: willingness for treatment, established outpatient providers, numerous outpatient support services, support of mother and sister Needs: development of effective coping strategies to manage anxiety in the setting of COPD, engagement of outpatient supports for collateral information and safety planning Risk Factors Assessment Male: No : Yes Health Problems: Yes Mental Health Diagnoses: Yes Substance Use Disorders: No Previous Attempt: Yes Previous Psychiatric Hospitalization: Yes Protective Factors Assessment : No Responsible for Young Children: No Employed: No Supportive Family: Yes Good Rapport with Provider: Yes Interval History Identifying Information VIVIEN RIVERS is a 58-year-old F who currently lives in [place], in a space she rents within her mother's home. Pt has a history of schizophrenia with reports of anxiety and depressive symptoms as well. Pt was admitted on 02/14/19 22:08 on a 201 voluntary commitment for increased anxiety, depression, and reports of SI with thoughts to cut her wrist and bleed out. Chief Complaint "Oh, pretty good." Review of Systems Notes Constitutional: denied Cardiovascular: denied Respiratory: reports episodic shortness of breath Gastrointestinal: denied Neurological: denied Psychiatric: denies symptoms other than stated above Total of at least 10 systems reviewed, pertinent positives as above and in HPI. Sleep Information Total Hours of Sleep: 6.25 Sleep Comments: cpap on during the night. Meal Information Percent Meal Consumed - Breakfast: 100 Percent Meal Consumed - Lunch: 100 Percent Meal Consumed - Dinner: 75 Subjective Subjective Patient was seen & assessed and interval progress reviewed with treatment team. Staff reports the patient continues to one-to-one staffing due to oxygen supplementation. Patient has been denying suicidal ideation. She is scheduled to have a meeting with her sister tomorrow, with consideration for discharge as well. Patient was seen today to assess progress since admission. She states that she is feeling "oh, pretty good." She states that she feels as though her mood is "getting better." She is pleased to report that she has not experienced any "panic attacks" since her admission. Patient remains motivated to complete a safety plan, in order to reduce the need to call 911 immediately after symptoms of anxiety or shortness of breath would flare. Safety plan was review ed during our encounter, and patient was agreeable with completing her safety plan today, in order to review it with her sister during the meeting tomorrow. Patient denies continued suicidal ideation as well as hopelessness. Patient states that at this point, she desires to return home with her sister after their meeting tomorrow. Patient denies other needs or concerns from staff at this time. Later in the afternoon, report from nursing that patient had a rash appearing on her right upper back. This concern was reviewed by this provider. Patient states she initially was not aware had any skin concerns in that region, until she was informed of this by staff. Patient describes the rash as itchy but not painful. She does admit to receiving her shingles vaccine about 2 weeks prior to her admission. Otherwise, patient denies changes to detergent or other situations that may suggest allergic dermatitis. Physical Exam Psychiatric Orientation: alert, oriented x 3 and cooperative Apperance: appropriately dressed, appropriately groomed and appeared stated age Eye Contact: good eye contact Motor Behavior: no abnormal motor movements Speech: normal rate/rhythm/volume of speech Affect: euthymic affect and mood congruent with affect Mood: + anxious mood (Admits to mild anxiety, related to feeling overwhelmed w/ medical concerns ); no depressed mood ("My mood is getting better") Thought Process: goal directed thought process, clear/coherent thought process and + concrete thought process Thought Content: reality based without delusions; no hopelessness and no worthlessness Suicidal Thoughts: denies suicidal thoughts, denies suicidal plan and denies suicidal intent Homicidal Thoughts: denies homicidal thoughts Hallucinations: no auditory hallucinations and no visual hallucinations Cognition: attention grossly intact and language grossly intact Insight: + fair insight Judgement: + fair judgement Vital Signs (Past 24 Hours) Last Vital Signs Temp 36.8 C 02/14/19 23:57 Pulse 76 02/17/19 06:52 Resp 20 02/17/19 06:52 BP 129/78 02/17/19 06:52 Pulse Ox 92 02/17/19 03:35 Results & Data Laboratory Results Laboratory Results - last 24 hr 02/16/19 02/17/19 06:59 08:22 POC Glucose 93 Estimat Average Glucose 128 Hemoglobin A1c 6.1 H Current Inpatient Medications Current Inpatient Medications: Current Inpatient Medications Acetaminophen (Tylenol) 650 mg PO Q4H PRN PRN Reason: Headache or Minor Fever Stop: 03/16/19 22:07 Al Hydrox/Mg Hydrox/Simethicone (Maalox) 30 ml PO Q4H PRN PRN Reason: GI Upset Stop: 03/16/19 22:07 Albuterol (Ventolin Hfa) 2 puffs INH Q6H PRN PRN Reason: Shortness Of Breath Or Wheezing Stop: 03/16/19 22:13 Last Admin: 02/17/19 09:22 Dose: 2 puffs Documented by: Albuterol (Ventolin 0.083% 2.5mg/3ml) 2.5 mg INH TID PRN PRN Reason: Shortness Of Breath Stop: 03/16/19 22:13 Last Admin: 02/15/19 00:36 Dose: 2.5 mg Documented by: Benzonatate (Tessalon Perle) 100 mg PO TID PRN PRN Reason: Cough Stop: 03/16/19 22:13 Bismuth Subsalicylate (Kaopectate) 15 ml PO PRN PRN PRN Reason: Loose Stool Stop: 03/16/19 22:07 Bupropion HCl (Wellbutrin-Sr) 100 mg PO DAILY [facility] Stop: 03/17/19 08:59 Last Admin: 02/17/19 08:35 Dose: 100 mg Documented by: Calcitonin [place] (Fortical) 1 sprays NA QAM [facility] Stop: 03/17/19 08:59 Last Admin: 02/17/19 08:29 Dose: 1 sprays Documented by: Clonazepam (Klonopin) 0.25 mg PO BID PRN PRN Reason: Panic Attack(S) Stop: 03/16/19 22:13 Last Admin: 02/17/19 11:02 Dose: 0.25 mg Documented by: Clozapine (Clozaril) 50 mg PO 1200 [facility] Stop: 03/17/19 11:59 Last Admin: 02/16/19 11:59 Dose: 50 mg Documented by: Clozapine (Clozapine) 100 mg PO BID [facility] Stop: 03/16/19 22:29 Last Admin: 02/17/19 08:27 Dose: 100 mg Documented by: Cyclobenzaprine HCl (Flexeril) 5 mg PO BID PRN PRN Reason: Muscle Spasm Stop: 03/16/19 22:13 Last Admin: 02/16/19 22:33 Dose: 5 mg Documented by: Diclofenac Sodium (Voltaren 1% Top) 2 gm EXT QID PRN PRN Reason: Pain Stop: 03/16/19 22:13 Docusate Sodium (Colace) 100 mg PO BID [facility] Stop: 03/16/19 22:29 Last Admin: 02/17/19 08:27 Dose: 100 mg Documented by: Famotidine (Pepcid) 20 mg PO BID [facility] Stop: 03/16/19 22:29 Last Admin: 02/17/19 08:33 Dose: 20 mg Documented by: Fenofibrate (Fenofibrate) 48 mg PO QAM [facility] Stop: 03/17/19 08:59 Last Admin: 02/17/19 08:28 Dose: 48 mg Documented by: Ferrous Sulfate (Feosol) 325 mg PO BIDM [facility] Stop: 03/17/19 07:59 Last Admin: 02/17/19 08:28 Dose: 325 mg Documented by: Fluticasone Propionate (Flonase) 2 sprays NA DAILY [facility] Stop: 03/17/19 08:59 Last Admin: 02/17/19 08:28 Dose: 2 sprays Documented by: Fluticasone/Umeclidinium/Vilanterol (Trelegy Ellipta 100-62.5-25) 1 ea INH QAM [facility] Stop: 03/18/19 08:59 Last Admin: 02/17/19 08:34 Dose: 1 ea Documented by: Folic Acid (Folvite) 1 mg PO QAM [facility] Stop: 03/17/19 08:59 Last Admin: 02/17/19 08:28 Dose: 1 mg Documented by: Gabapentin (Neurontin) 200 mg PO BID [facility] Stop: 03/16/19 22:29 Last Admin: 02/17/19 08:32 Dose: 200 mg Documented by: Guaifenesin (Mucinex) 1,200 mg PO BID [facility] Stop: 03/17/19 08:59 Last Admin: 02/17/19 08:31 Dose: 1,200 mg Documented by: Magnesium Hydroxide (Milk Of Magnesia) 30 ml PO DAILY PRN PRN Reason: Constipation Stop: 03/16/19 22:07 Last Admin: 02/16/19 12:01 Dose: 30 ml Documented by: Metoprolol Tartrate (Lopressor) 12.5 mg PO BID [facility] Stop: 03/17/19 08:59 Last Admin: 02/17/19 08:30 Dose: 12.5 mg Documented by: Montelukast Sodium (Singulair) 10 mg PO HS DEVAN Stop: 03/17/19 20:59 Last Admin: 02/16/19 21:22 Dose: 10 mg Documented by: Rexulti 3 Mg / Non- Formulary Patient's Own Med 1 ea PO QAM DEVAN Stop: 03/18/19 08:59 Last Admin: 02/17/19 08:32 Dose: 1 ea Documented by: Pantoprazole Sodium (Protonix) 40 mg PO BIDM DEVAN Stop: 03/17/19 07:59 Last Admin: 02/17/19 08:33 Dose: 40 mg Documented by: Prednisone (Prednisone) 10 mg PO TID DEVAN Stop: 03/17/19 08:59 Last Admin: 02/17/19 08:33 Dose: 10 mg Documented by: Sitagliptin Phosphate (Januvia) 100 mg PO DAILY DEVAN Stop: 03/17/19 08:59 Last Admin: 02/17/19 08:29 Dose: 100 mg Documented by: Sodium Chloride ([place] Nasal) 1 - 2 sprays NA PRN PRN PRN Reason: Nasal Dryness/Congestion Stop: 03/16/19 22:07 Tramadol HCl (Ultram) 50 mg PO Q6 PRN PRN Reason: Pain Stop: 03/16/19 22:13 Last Admin: 02/16/19 13:16 Dose: 50 mg Documented by: Tramadol HCl (Ultram) 75 mg PO 0800 DEVAN Stop: 03/18/19 07:59 Last Admin: 02/17/19 08:26 Dose: 75 mg Documented by: Vortioxetine (Trintellix) 1 ea PO QAM DEVAN Stop: 03/18/19 08:59 Last Admin: 02/17/19 08:34 Dose: 1 ea Documented by: Mental Health & Subst Abuse Tx Therapist Name of Therapist: Mansi @ [facility] Boat [employer] Name of Boat Mechanic: Barbara HUERTA Phone Number for Boat Mechanic: [phone] Post Discharge Appointments Primary Care Physician Name Of Family Doctor: Dr. Adam Date of Appointment with PCP: 03/10/19 (1) Schizophrenia Schizophrenia type: unspecified Qualified Code(s): F20.9 - Schizophrenia, unspecified (2) COPD (chronic obstructive pulmonary disease) COPD type: unspecified COPD Qualified Code(s): J44.9 - Chronic obstructive pulmonary disease, unspecified
[2019-02-17] MEDS: TRAMADOL HCL 50 MG TABLET PO PRN ×2 (12:05→21:24)
[2019-02-17] MEDS: cloZAPine 25 MG TAB PO SCH (12:05)
[2019-02-17] MEDS: CYCLOBENZAPRINE HCL 5 MG TAB PO PRN ×2 (15:10→22:11)
[2019-02-17] MEDS ORDERED: cloZAPine 25 MG TAB PO SCH (21:00)
[2019-02-17] MEDS: MONTELUKAST SODIUM 10 MG TABLET PO SCH (21:21)
[2019-02-18] MEDS ORDERED: cloZAPine 25 MG TAB PO SCH (08:00)
[2019-02-18] MEDS: TRAMADOL HCL 50 MG TABLET PO SCH (08:49)
[2019-02-18] MEDS: DOCUSATE SODIUM 100 MG CAP PO SCH (08:51)
[2019-02-18] MEDS: FENOFIBRATE NANOCRYSTALLIZED 48 MG TABLET PO SCH (08:52)
[2019-02-18] MEDS: FLUTICASONE PROPIONATE NA SPR 16 GM BTL SCH (08:53)
[2019-02-18] MEDS: FERROUS SULFATE 325 MG TAB PO SCH (08:53)
[2019-02-18] MEDS: CALCITONIN SALMON NA 200 IU/AC 3.7 ML BTL SCH (08:54)
[2019-02-18] MEDS: FOLIC ACID 1 MG TAB PO SCH (08:54)
[2019-02-18] MEDS: SITAGLIPTIN PHOSPHATE 100 MG TAB PO SCH (08:55)
[2019-02-18] MEDS: METOPROLOL TARTRATE 25 MG TAB PO SCH (08:55)
[2019-02-18] MEDS: guaiFENesin 600 MG TABCR PO SCH (08:56)
[2019-02-18] MEDS: GABAPENTIN 100 MG CAP PO SCH (08:58)
[2019-02-18] MEDS: REXULTI PO SCH (08:59)
[2019-02-18] MEDS: VORTIOXETINE HYDROBROMIDE PO SCH (08:59)
[2019-02-18] MEDS: BuPROPion SR 100 MG TABCR PO SCH (08:59)
[2019-02-18] MEDS: predniSONE 10 MG TABLET PO SCH (09:00)
[2019-02-18] MEDS: FAMOTIDINE 20 MG TAB PO SCH (09:00)
[2019-02-18] MEDS: PANTOprazole 40 MG TAB PO SCH (09:00)
[2019-02-18] MEDS: VILANTER INH SCH (09:01)
[2019-02-18] MEDS: FLUTICASONE INH SCH (09:01)
[2019-02-18] MEDS: UMECLIDIN INH SCH (09:01)
--- NOTE | 2019-02-18 09:21 | Discharge Summary ---
Date of Service February 18, 2019 History of Present Illness Amelia Tello is a 58-year-old female admitted voluntarily for inpatient psychiatric treatment on 02/14/19 after presenting to the ED with reports of shortness of breath, worsening anxiety/depression, and thoughts to end her life by cutting her wrists and bleeding out. Pt has a history of schizophrenia as well as mention of anxiety and depressed mood in prior available documentation. Pt reported recent stressors of increased mental health and medical issues, stating that her anxiety was correlated with increased breathing difficulty. Pt denied attempts to self-harm since 2005 when she cut herself with a broken CD, but did verbalize means to end her life via cutting. Pt has several outpatient support services in place, including [facility], Case Management, Skills, Psych Rehab, and an in home health aid. She also reportedly has the support of mother and sister, with sister reportedly being out of town on vacation recently. Pt was unable to contract for safety after mental health evaluation in the ED, and was referred to our unit with desire for inpatient treatment. Pt is cooperative with psychiatric evaluation. She states that it has become more difficult for her to breath over the past month, and feels that this is contributing to increased anxiety and depression. Pt states that she has been having panic attacks three times a week, often presenting to the ED with a combination of shortness of breath and anxiety. Pt states she has been more frustrated recently, "when I was seen the the ER it wouldn't be enough to help me, I was getting more depressed each time I went." Pt states that prior to her presentation in the ED, she had been experiencing shortness of breath with inability to slow her breathing down. Pt states "you start to think you might not ever breathe again, that's pretty scary." Pt states that she had also recently asked her pulmonology provider about her "life expectancy", and had believed she was told a shorter period of time than her sister (RODRIGUEZ), who reportedly asked similar questions. When asked how patient took the news that she may have "18 months to a year and a half" to live, she states "Oh, I don't know. I guess it could be longer than that...but it could also be shorter. There really is no way to know." Pt reports concern that she experienced a "brain injury" in June or July of 2018, after an episode in which the patient states her brain was depleted of oxygen for a prolonged period. She states, "I was thinking really weird, I couldn't concentrate, my mood was getting worse. But I do think it all is getting better now." She states that she began having increased hopelessness and thoughts to harm herself after this event, but feels they have especially worsened over the past months - patient feeling increased knee pain may be contributing to this. She states that when thinking of ways to harm herself, she has a plan to utilize "a sharp knife" to cut her wrists and bleed out. In regard to symptoms of schizophrenia, the patient denies auditory or visual hallucinations. She does admit to feeling "paranoid" that "men can get into my room and have sex with me while I'm sleeping." She states that she does experience these events in real-t latrice, but rather awakens in the morning with the belief that these things have happened while she is asleep. She denies significant safety concerns related to her current living situation. Physical Exam Psychiatric Orientation: alert, oriented x 3 and cooperative Apperance: appropriately dressed, appropriately groomed and appeared stated age Eye Contact: good eye contact Motor Behavior: no abnormal motor movements (Observed while sitting on bed) Speech: normal rate/rhythm/volume of speech Affect: euthymic affect and mood congruent with affect Mood: no depressed mood ("I feel pretty good") Thought Process: goal directed thought process, clear/coherent thought process, + concrete thought process and thought association intact Thought Content: reality based without delusions; no hopelessness and no worthlessness Suicidal Thoughts: denies suicidal thoughts, denies suicidal plan and denies suicidal intent Homicidal Thoughts: denies homicidal thoughts Hallucinations: no auditory hallucinations and no visual hallucinations Cognition: attention grossly intact and language grossly intact Insight: + limited insight (Likely chronic) Judgement: + fair judgement Vital Signs (Past 24 Hours) Last Vital Signs Temp 36.8 C 02/14/19 23:57 Pulse 80 02/18/19 07:03 Resp 16 02/18/19 07:03 BP 133/86 02/18/19 07:03 Pulse Ox 98 02/18/19 07:03 Principal Diagnosis - Anxiety - Mood disorder - Schizophrenia Psychiatric Data 58-year-old female admitted voluntarily for inpatient psychiatric treatment on 02/14/19 after presenting to the ED with verbalized worsening depression and anxiety, stating she has been having SI with consideration to cut her wrists and bleed out. Pt has a long history of schizophrenia, paranoid type and is well- known to our service from prior inpatient psychiatric admissions as well as consultations while on the medical floor. Pt has a history of COPD with chronic oxygen supplementation, which is likely related to her exacerbation of anxiety symptoms as well. As patient is somewhat complex with regard to treatment history and is a limited historian, it was felt that collateral information from patient's sister and outpatient provider was necessary prior to making medication adjustments. Patient's sister informed staff that patient has actually been doing quite well, and has been stable on her medication regimen. Sister was concerned that patient is "manipulative" per sister, and it is difficult to talk her out of coming in for inpatient treatment. Sister did not feel that any medication adjustments were warranted, and felt comfortable following up with scheduling outpatient psychiatric appointments - as we were unable to make contact with the offices directly due to their holiday schedules. Over the course of the patient's admission, she participated in group and recreational programming. Safety was maintained on a locked behavioral health unit, until sister could be involved in discharge planning. Sister was involved in a family meeting to discuss aftercare and discharge planning, and felt comfortable taking patient home, as there was desire to have her back for Bobby celebrations. Over the course of the patient's admission, she had predominantly been denying suicidal ideation. Patient was able to contract for safety, and completed a thorough discussion regarding development of a safety plan to prevent unnecessary dialing of 911. Discharge planning was reviewed with patient and sister, who both were requesting patient's discharge. Based on review of patient's case and their current presentation, risk of harm to self or others is no longer perceived to be acute. Management of symptoms on an outpatient basis seems the most appropriate and least restrictive setting. Pt seems appropriate for discharge with recommendation for consistent follow-up with outpatient psychiatric prescriber, therapist, and disease case manager. Pt verbalized understanding of discharge plan reviewed and is agreeable with plan to be discharged home today. Day of Discharge Assessment Patient's case was reviewed and discussed with nursing and social work. Staff reports the patient continues to engage in group programming as able. She rated her mood a 5/10 and "good." Patient continued to deny suicidal ideation to staff. She has a meeting with her sister this morning at 10:00, sister is anticipating discharge if meeting goes well. Patient was seen today to assess readiness for discharge. She states that she is feeling "pretty good." Patient is able to offer insight regarding things that she has learned during group programming. Patient states "I learned a lot about turning negative thoughts to positive thoughts, and using the supports that I have." We reviewed the safety plan that she developed with assistance from staff. Patient verbalized understanding of how to effectively utilize the plan, and was encouraged to reach out to supports prior to calling 911 moving forward. Patient denies continued suicidal ideation, but does admit to mild anxiety, questioning "how will I know that things will be different?" We reviewed the things that patient has accomplished in her time here, as well as the fact that she states that she has not had any "episodes" of panic. After our discussion, patient does verbalize feeling as though she has benefited from her time here. Discharge plans were reviewed with the patient, who verbalized understanding and is agreeable with returning home with her sister if they are meeting this morning goes well. Patient denies other needs or concerns at this time, and feels as though she is ready for discharge. Patient even began singing loudly about "going home" as this provider exited her room. ROS: Constitutional: denied Cardiovascular: denied Respiratory: shortness of breath at baseline Gastrointestinal: denied Neurological: denied Psychiatric: denies symptoms other than stated above Total of at least 10 systems reviewed, pertinent positives as above and in HPI. Transition of Care Transition Of Care Record: was reviewed with the patient Advance Directives Advance Directives Information Provided: Yes Advance Directives: No Mental Health Advance Directive: No Advance Directives on File: No Living Will: No Power of Ice Skating Coach: No Advance Directives Reason:: Declines as Mental Health Visit. Risk Factors Assessment Presenting risk factors reviewed on discharge. Precipitating stressors mitigated by: admission for inpatient psychiatric observation and treatment, attendance of therapeutic treatment groups, development of healthy and effective coping strategies, involvement of outpatient supports, completion of a safety plan, treatment of medical conditions and education on diagnoses. Pt has demonstrated improvement in condition with regard to improvement in mood, resolution of suicidality, improved management of anxiety, and involvement of sister in safety and discharge planning. At this time, patient is requesting discharge and is no longer considered to be at acute risk of harm to herself or others. Pt will be discharged with recommendation for ongoing outpatient psychiatric treatment. Male: No : Yes Health Problems: Yes Mental Health Diagnoses: Yes Substance Use Disorders: No Previous Attempt: Yes Previous Psychiatric Hospitalization: Yes Protective Factors Assessment : No Responsible for Young Children: No Employed: No Supportive Family: Yes Good Rapport with Provider: Yes Tobacco Cessation at Discharge Tobacco Cessation Medication Prescribed at Discharge: Not Applicable/Non-Smoker Total Time Total Time Spent: Greater Than 30 Minutes Total Time Includes: Examination of the patient, Discharge Planning, Medication Reconciliation and Communication with other providers Discharge Data Lab Results 02/14/19 02/14/19 02/14/19 17:45 17:45 19:00 WBC 12.74 H RBC 4.39 Hgb 14.0 Hct 43.9 MCV 100.0 MCH 31.9 MCHC 31.9 L RDW Std Deviation 49.5 H RDW Coeff of Ivy 13.6 Plt Count 228 MPV 10.2 Immature Gran % (Auto) 1.0 Neut % (Auto) 86.1 Lymph % (Auto) 6.2 [place] % (Auto) 6.0 Eos % (Auto) 0.5 Baso % (Auto) 0.2 Immature Gran # (Auto) 0.13 H Neut # (Auto) 10.97 H Lymph # (Auto) 0.79 L [place] # (Auto) 0.76 H Eos # (Auto) 0.07 Baso # (Auto) 0.02 Sodium Potassium Chloride Carbon Dioxide Anion Gap BUN Creatinine Est Cr Clr Drug Dosing Est GFR ( Amer) Est GFR (Non-Af Amer) BUN/Creatinine Ratio Glucose POC Glucose Fasting Glucose Estimat Average Glucose Hemoglobin A1c Calcium Total Bilirubin AST ALT Alkaline Phosphatase Troponin I Total Protein Albumin Globulin Albumin/Globulin Ratio Triglycerides Cholesterol LDL Cholesterol, Calc VLDL Cholesterol, Calc HDL Cholesterol Cholesterol/HDL Ratio TSH Urine Color Yellow Urine Appearance Clear Urine pH 6.0 Ur Specific [place] 1.005 Urine Protein Negative Urine Glucose (UA) Negative Urine Ketones Negative Urine Blood Negative Urine Nitrite Negative Urine Bilirubin Negative Urine Urobilinogen Negative Ur Leukocyte Esterase Negative Salicylates Urine Opiates Screen Neg Ur Methadone, Qual Neg Acetaminophen Urine Barbiturates Neg Ur Phencyclidine (PCP) Neg U Amphetamin/Meth Scrn Neg MDMA (Ecstasy) Screen Pos H U Benzodiazepines Scrn Neg Ur Cocaine Metabolite Neg U Marijuana (THC) Screen Neg Ethyl Alcohol mg/dL 02/14/19 02/14/19 02/14/19 19:00 19:00 19:00 WBC RBC Hgb Hct MCV MCH MCHC RDW Std Deviation RDW Coeff of Ivy Plt Count MPV Immature Gran % (Auto) Neut % (Auto) Lymph % (Auto) [place] % (Auto) Eos % (Auto) Baso % (Auto) Immature Gran # (Auto) Neut # (Auto) Lymph # (Auto) [place] # (Auto) Eos # (Auto) Baso # (Auto) Sodium 138 Potassium 4.3 Chloride 106 Carbon Dioxide 32 Anion Gap 0 L BUN 21 H Creatinine 1.01 Est Cr Clr Drug Dosing 70.0 Est GFR ( Amer) 70.6 Est GFR (Non-Af Amer) 60.9 BUN/Creatinine Ratio 20.7 H Glucose 180 H POC Glucose Fasting Glucose Estimat Average Glucose Hemoglobin A1c Calcium 8.9 Total Bilirubin 0.2 AST 23 ALT 34 Alkaline Phosphatase 59 Troponin I < 0.015 Total Protein 8.1 Albumin 3.5 Globulin 4.6 H Albumin/Globulin Ratio 0.8 L Triglycerides Cholesterol LDL Cholesterol, Calc VLDL Cholesterol, Calc HDL Cholesterol Cholesterol/HDL Ratio TSH 0.977 Urine Color Urine Appearance Urine pH Ur Specific [place] Urine Protein Urine Glucose (UA) Urine Ketones Urine Blood Urine Nitrite Urine Bilirubin Urine Urobilinogen Ur Leukocyte Esterase Salicylates < 1.7 L Urine Opiates Screen Ur Methadone, Qual Acetaminophen 11 Urine Barbiturates Ur Phencyclidine (PCP) U Amphetamin/Meth Scrn MDMA (Ecstasy) Screen U Benzodiazepines Scrn Ur Cocaine Metabolite U Marijuana (THC) Screen Ethyl Alcohol mg/dL < 3.0 02/16/19 02/16/19 02/17/19 06:59 06:59 08:22 WBC RBC Hgb Hct MCV MCH MCHC RDW Std Deviation RDW Coeff of Ivy Plt Count MPV Immature Gran % (Auto) Neut % (Auto) Lymph % (Auto) [place] % (Auto) Eos % (Auto) Baso % (Auto) Immature Gran # (Auto) Neut # (Auto) Lymph # (Auto) [place] # (Auto) Eos # (Auto) Baso # (Auto) Sodium Potassium Chloride Carbon Dioxide Anion Gap BUN Creatinine Est Cr Clr Drug Dosing Est GFR ( Amer) Est GFR (Non-Af Amer) BUN/Creatinine Ratio Glucose POC Glucose 93 Fasting Glucose 141 H Estimat Average Glucose 128 Hemoglobin A1c 6.1 H Calcium Total Bilirubin AST ALT Alkaline Phosphatase Troponin I Total Protein Albumin Globulin Albumin/Globulin Ratio Triglycerides 88 Cholesterol 205 H LDL Cholesterol, Calc 73 VLDL Cholesterol, Calc 18 HDL Cholesterol 114 Cholesterol/HDL Ratio 2 TSH Urine Color Urine Appearance Urine pH Ur Specific [place] Urine Protein Urine Glucose (UA) Urine Ketones Urine Blood Urine Nitrite Urine Bilirubin Urine Urobilinogen Ur Leukocyte Esterase Salicylates Urine Opiates Screen Ur Methadone, Qual Acetaminophen Urine Barbiturates Ur Phencyclidine (PCP) U Amphetamin/Meth Scrn MDMA (Ecstasy) Screen U Benzodiazepines Scrn Ur Cocaine Metabolite U Marijuana (THC) Screen Ethyl Alcohol mg/dL Hospital Course (1) Suicidal ideations: 02/15 - Admitted to a locked inpatient behavioral health unit, on q15 minute safety checks - Encourage medication initiation/adjustments as indicated - Encourage participation in group and recreational therapies - Gather collateral information from outpatient providers - Suggest family meeting to involve outpatient supports in safety planning - Arrange appropriate aftercare 02/16 - Pt's perception is reportedly that SI is ongoing, finding herself still " think about the knife" 02/17 - Pt is denying SI today, verbalizing desire to create safety plan to reduce perceived need to call 911 during acute panic attacks and SOB (2) Anxiety: 02/15 - Continue current medication regimen unchanged at this time; will attempt to gather collateral information from family regarding changes in the patient's condition, will also attempt to coordinate care with outpatient psychiatric providers - Encourage participation in group and recreational programming - Assist with development of healthy and effective coping strategies to target anxiety symptoms - Engage outpatient support services in clear aftercare and safety planning - Encourage participation in a family meeting 02/16 - Pt denies "bad spells" since admission, but is able to appreciate the need for coping strategies that can prevent her from inappropriately calling 911 - Continue current medication regimen; will attempt to obtain collateral info rmation from outpatient providers - Staff to obtain collateral information from patient's mother and sister - Family meeting with sister, currently scheduled for 02/18 02/17 - Continue current treatment plan as outlined above - Assist in the creation of a safety plan, to utilize prior to calling 911 for acute panic (3) Mood disorder: 02/15 - Same as above - continue current medication regimen until collateral information can be gathered from outpatient psychiatric providers - Fasting glucose and lipid panel ordered for tomorrow morning as patient is being continued on brexpiprazole, no history of fasting labs within the last 3 months, diabetes diagnosis - Encourage attendance of group and recreational programming 02/16 - Fasting glucose and lipid panel ordered - fasting glucose was elevated at 141; total cholesterol elevated at 205, other values within normal limits (A1c pending) - Pt continues to report depressive symptoms (4) Schizophrenia: 02/15 - Other than a brief mention of "paranoia" regarding men being able to break into her home while she is sleeping, the patient does not verbalize exacerbation of symptoms related to her schizophrenia diagnosis - Will attempt to gather collateral information from sister/mother to determine stability of the condition - Will maintain clozapine TID dosing at 100mg/50mg/100mg daily; CBC w/ diff ordered as part of ED work-up, ANC - 10.97. Will order serial CBC w/ diff, as duration of admission is unknown at this time - At this time, treatment of symptoms related to schizophrenia diagnosis does not seem to be primary focus of treatment (5) COPD (chronic obstructive pulmonary disease): 02/15 - Continue home doses of guaifenesin, prednisone, fluticasone, and montelukast sodium - BiPAP ordered for use overnight; on continuous O2 supplementation - 1:1 and MNPR per protocol (6) GERD (gastroesophageal reflux disease): 02/15 - Continue home dose of pantoprazole - Pharmacy recommended substitution of ranitidine with famotidine - ordered a t 20mg BID (7) Diabetes mellitus type 2, controlled: 02/15 - Fasting glucose as above, maintenance of metabolic side effects related to continued use of brexpiprazole in combination with diabetes diagnosis - Will order A1c as well, as it does not appear this has been checked in the past year - Continue home dose of Januvia 02/16 - Fasting glucose elevated at 141 this morning; HgbA1c is still pending - Would suggest continued follow-up with PCP for diabetes management Mental Health & Subst Abuse Tx Therapist Name of Therapist: Mansi @ [facility] Director Vaccine Name of Director Vaccine: Barbara HUERTA Phone Number for Director Vaccine: [phone] Post Discharge Appointments Primary Care Physician Name Of Family Doctor: Dr. Adam Date of Appointment with PCP: 03/10/19 Smoking Cessation Counseling Tobacco Cessation Medication Prescribed at Discharge: Not Applicable/Non-Smoker Discharge Plan Discharge Items Patient Disposition: Home - Self-Care Reason For Visit: MOOD DISORDER NOS Discharge Diagnosis: - Schizophrenia - Mood disorder - Anxiety Activity: Resume your previous activity Non-emergency contact: Primary Care Provider, Ice Skating Coach, Psychiatrist, Therapist and Nicu Rn Call non-emergency contact if: you have any medication questions and your symptoms worsen Follow-up/Referrals: Naveed Adam MD [Primary Care Provider] - Diet: Carb Consistent or DM2 Addtl Attending Provider Instructions: SPECIAL CARE INSTRUCTIONS: 1. Follow through with your scheduled aftercare appointments. If unable to keep an appointment, please call to reschedule. 2. Take your medication only as prescribed. Medication should not be changed or stopped without the approval of your doctor. In the event of worsening symptoms or concerns about side effects, contact your doctor immediately. 3. Utilize new healthy coping skills, anger management skills, and stress management skills learned during your hospitalization. Journal feelings and process them with a support person. Identify stressors or situations that may result in relapse, deterioration or inappropriate behaviors and develop a plan to deal with those issues. 4. If your coping skills are ineffective and you are in crisis, contact your outpatient providers for direction. If unable to reach your providers, please call the CAN HELP LINE AT or go to the closest Emergency Room. 5. Avoid alcohol and un-prescribed drugs. 6. You have been provided with the Mental Health Advance Directives Pamphlet for your review. AFTERCARE APPOINTMENTS: * Please call your insurance company prior to your scheduled appointment to confirm your aftercare providers are covered. Take your insurance information to your appointments. WHO TO CALL AND WHEN: Medical Emergencies: For questions or emergencies related to your hospital stay, please contact the Inpatient Behavioral Health Unit at [phone]. A usability architect is on-call 18/09 for the Behavioral Health Unit for emergencies At any time you feel your situation is an emergency, you may also call [phone] immediately. Your Discharge Instructions noted above were prepared by provider Leanne Anthony PA-C. Pending Studies at Discharge: Yes Studies:: Pt will require continued weekly CBC w/ diff per clozapine monitoring protocol - no lab orders sent, patient can resume usual outpatient schedule. Stand-Alone Forms: [facility], Smoking Cessation, Suicide Prevention Resources Medications and DC Order Prescriptions: Continued calcitonin (salmon) 200 unit/actuation [place],Non-Aerosol 1 spray Intranasal QAM RF: 0 ferrous sulfate [FerrouSul] 325 mg (65 mg iron) tablet 325 mg PO BIDM RF: 0 folic acid 1 mg Tablet 1 mg PO QAM RF: 0 montelukast [Singulair] 10 mg Tablet 10 mg PO HS RF: 0 albuterol sulfate [Ventolin HFA] 90 mcg/actuation Hfa Aerosol Inhaler 2 puff INHALATION Q6H PRN (Reason: Shortness Of Breath Or Wheezing) RF: 0 fenofibrate nanocrystallized [Tricor] 48 mg Tablet 48 mg PO QAM RF: 0 Trelegy Ellipta 100-62.5-25 mcg Blister With Device 1 inh INHALATION QAM RF: 0 pantoprazole [Protonix] 40 mg Tablet,Delayed Release (Dr/Ec) 40 mg PO BIDM RF: 0 magnesium hydroxide [Milk of Magnesia] 400 mg/5 mL Suspension 30 ml PO HS PRN (Reason: Constipation) RF: 0 Rexulti 3 mg Tablet 3 mg PO QAM RF: 0 Trintellix 10 mg Tablet 20 mg PO DAILY RF: 0 clonazepam 0.5 mg tablet 0.25 mg PO BID PRN (Reason: Panic Attack(S)) RF: 0 tramadol 50 mg tablet 50 mg PO Q6 PRN (Reason: Pain) RF: 0 docusate sodium 100 mg Capsule 100 mg PO BID RF: 0 clozapine 100 mg Tablet 100 mg PO BID RF: 0 gabapentin 100 mg Capsule 200 mg PO BID RF: 0 Januvia 100 mg Tablet 100 mg PO DAILY RF: 0 metoprolol tartrate 25 mg Tablet 12.5 mg PO BID RF: 0 ranitidine HCl 150 mg Tablet 150 mg PO BID RF: 0 acetaminophen [Tylenol Extra Strength] 500 mg Tablet 1,000 mg PO TID PRN (Reason: Pain) RF: 0 diclofenac sodium [Voltaren] 1 % Gel 2 g TOPICAL QID PRN (Reason: Pain) RF: 0 fluticasone propionate [Flonase Allergy Relief] 50 mcg/actuation [place],Suspension 2 spray INTRANASAL DAILY RF: 0 prednisone 5 mg tablet 10 mg PO TID RF: 0 albuterol sulfate 2.5 mg /3 mL (0.083 %) solution for nebulization 2.5 mg inhalation TID PRN (Reason: Shortness Of Breath) RF: 0 bupropion HCl 100 mg tablet sustained-release 12 hr 100 mg PO DAILY RF: 0 benzonatate [Tessalon Perles] 100 mg Capsule 100 mg PO TID PRN (Reason: Cough) RF: 0 calcium-vitamin D3-vitamin K 500 mg-1,000 unit-40 mcg Tablet,Chewable 1 tab PO BID RF: 0 cyclobenzaprine 5 mg tablet 5 mg PO BID PRN (Reason: Muscle Spasm) RF: 0 clozapine 50 mg Tablet 50 mg PO DAILY RF: 0 guaifenesin [Mucinex] 1,200 mg Tablet Extended Release 12hr 1,200 mg PO BID RF: 0 Discharge Orders: Discharge Order (Routine); Ordered 02/18/19 Ordered By: Leanne Anthony Admission Data Admit Date/Time: 02/14/19 22:08 Attending Provider: Nelia Ramos Admit Provider: Nelia Ramos Primary Care Provider: Naveed Adam Other Interventions: Discharge Summary Assessment (RN) Last Done: 02/18/19 09:29 PSY Interdisciplinary Discharge Planning Last Done: 02/18/19 10:33 DC Date/Time DO NOT enter until pt leaves facility: 02/18/19 10:39 Coding Level of Care Code 82286 D/C day mgmt > 30 min Diagnoses Suicidal ideations R45.851 Anxiety F41.9 Mood disorder F39 Schizophrenia F20.9 Schizophrenia type: unspecified COPD (chronic obstructive pulmonary disease) J44.9 COPD type: unspecified COPD GERD (gastroesophageal reflux disease) K21.9 Diabetes mellitus type 2, controlled E11.9
[2019-02-18] MEDS: TRAMADOL HCL 50 MG TABLET PO PRN (10:11)
[2019-02-18] MEDS ORDERED: cloZAPine 100 MG TAB PO SCH (16:00)
[2019-02-20 20:47] LABS: MDA negative; MDEA negative; MDMA (Ecstasy) Urine, Confirm negative
== END 2019-02-18 10:39 | disposition home or self-care (01) | DRG 885 ==
LOC: ED 17:27 → 3S 22:08

== ENCOUNTER 2019-11-15 07:52 | Inpatient (IN) ==
[2019-11-15] MEDS ORDERED: ALBUT/IPRATROP 3MG/0.5MG NEB 3 ML VIAL NEB STA (08:09)
[2019-11-15] MEDS ORDERED: methylPREDNISolone 60 MG in SYRINGE 1 ML IV STA (08:09)
[2019-11-15 08:33] LABS: Basophils # (auto) 0.02 K/uL (0-0.2); Basophils % (auto) 0.2 %; Eosinophils # (auto) 0.19 K/uL (0-0.5); Eosinophils % (auto) 1.5 %; Hematocrit (blood only) 45.2 % (37-47); Hemoglobin 14.5 g/dL (12.0-16.0); Immature Granulocytes # (auto) 0.08 K/uL (0.00-0.02); Immature Granulocytes % (auto) 0.6 %; Lymphocytes # (auto) 1.37 K/uL (1.2-3.4); Lymphocytes % (auto) 10.6 %; Mean Corpuscular Hemoglobin 31.7 pg (25-34); Mean Corpuscular Hgb Conc 32.1 g/dL (32-36); Mean Corpuscular Volume 98.9 fL (80-100); Mean Platelet Volume 9.8 fL (7.4-10.4); Monocytes # (auto) 1.07 K/uL (0.11-0.59); Monocytes % (auto) 8.3 %; Neutrophils # (auto) 10.16 K/uL (1.4-6.5); Neutrophils % (auto) 78.8 %; Platelet Count 199 K/uL (130-400); RDW Coefficient of Variation 13.4 % (11.5-14.5); RDW Standard Deviation 48.3 fL (36.4-46.3); Red Blood Count 4.57 M/uL (4.2-5.4); White Blood Count 12.89 K/uL (4.8-10.8)
[2019-11-15] MEDS ORDERED: ONDANSETRON INJ 2 MG/ML 2 ML VIAL IV STA (08:37)
[2019-11-15] MEDS ORDERED: methylPREDNISolone 125 MG/2 ML VIAL ONE (08:40)
--- NOTE | 2019-11-15 08:44 | XRay Report ---
SINGLE VIEW CHEST CLINICAL HISTORY: Dyspnea. FINDINGS: An AP, portable, upright chest radiograph is compared to study dated 10/05/2019 and correlate d with chest CT dated 02/04/2019. The examination is significantly degraded by portable technique and patient rotation. A right subclavian central venous infusion port is unchanged in position. The card iomediastinal silhouette is unremarkable. There are low lung volumes. Chronic interstitial thickenin g and changes of interstitial lung disease are similar to previous. Airspace opacities throughout the left lung and in the right upper lung are similar to prior examinations. There is no evidence of sup erimposed airspace consolidation. No large pleural effusion or pneumothorax is seen. The skeletal str uctures are osteopenic. Extensive fusion hardware is noted throughout the thoracic spine. There is th oracic scoliosis. IMPRESSION: 1. Low lung volumes and chronic parenchymal changes as above are similar to previous. 2. There is no evidence of superimposed airspace consolidation or pleural effusion identified. Electronically signed by: Hubert Ferreira M.D. 11/15/2019 8:42 AM
[2019-11-15] MEDS ORDERED: SODIUM CHLORIDE 0.9% 1000ML 500 ML IV ONE (08:47)
[2019-11-15] MEDS ORDERED: CEFEPIME 2,000 MG/20 ML VIAL IV STA (08:47)
[2019-11-15 08:48] LABS: Partial Thromboplastin Time 28.4 Seconds (21.0-31.0); Prothrombin Time 10.9 Seconds (9.0-12.0)
[2019-11-15 08:51] LABS: Alanine Aminotransferase 33 U/L (12-78); Albumin Level 3.4 gm/dl (3.4-5.0); Aspartate Aminotransferase 23 U/L (15-37); BUN Creatinine Ratio 15.7 (10-20); Blood Urea Nitrogen 16 mg/dl (7-18); Calcium 9.1 mg/dl (8.5-10.1); Carbon Dioxide 30 mmol/L (21-32); Chloride 105 mmol/L (98-107); Est GFR (African American) 68.1; Est GFR (Non-African American) 58.8; Glucose 138 mg/dl (70-99); Magnesium 1.7 mg/dl (1.8-2.4); Potassium 4.7 mmol/L (3.5-5.1); Sodium 140 mmol/L (136-145)
[2019-11-15 08:56] LABS: Albumin Globulin Ratio 0.7 (0.9-2); Alkaline Phosphatase 54 U/L (45-117); Bilirubin,Total 0.6 mg/dl (0.2-1); Globulin 5.1 gm/dl (2.5-4.0); NT Pro B Type Natriuretic Pept 70 pg/ml (0-900); Total Protein 8.5 gm/dl (6.4-8.2); Troponin I 0.017 ng/ml (0-0.045)
[2019-11-15] MEDS ORDERED: SODIUM CHLORIDE 0.9% 500 ML IV SCH (09:00)
[2019-11-15] MEDS ORDERED: AZITHROMYCIN 500 MG in DEXTROSE 5% 250 ML IV STA (09:45)
[2019-11-15] MEDS ORDERED: SODIUM CHLORIDE 0.9% 500 ML IV ONE (10:08)
--- NOTE | 2019-11-15 10:28 | History & Physical Report ---
Date of Service November 15, 2019 Assessment & Plan (1) Acute respiratory failure with hypoxia: Chronic hypoxic resp failure on home O2. Underlying pulmonary fibrosis and COPD. Worsening dyspnea associated with productive cough. CXR shows chronic changes, no apparent acute infiltrates. [employer] resp panel negative for all pathogens tested (including SARS-CoV-2 and influenza). Nasal MRSA screen pending. Sputum gram stain, C&S ordered. Empiric antibiotic therapy with azithromycin and cefepime. Add vanco if MRSA screen positive. IV methylprednisolone + levalbuterol nebs for bronchospasm. Titrate supplemental O2 as necessary to maintain adequate sats. BiPAP PRN. (2) Diabetes mellitus type 2, controlled: Watch for worsening glycemic control on increased dose of steroids. Insulin coverage PRN. (3) Schizophrenia: Continue usual meds. Watch for steroid-related psychosis. (4) Hepatitis C: Recently prescribed glecaprevir / pibrenstasvir, but has not yet started treatment. (5) DVT prophylaxis: SQ enoxaparin. Ambulate as able. (6) Discharge planning issues: Anticipated discharge to home. Family Medicine follow-up with Dr. Adam. History of Present Illness Chief Complaint: shortness of breath Primary Care Provider: Naveed Adam MD 58 YO female followed by Dr. Adam. History of chronic hypoxic respiratory failure due to underlying COPD + pulmonary fibrosis. On home O2 4-6 LPM by NC or mask. Worsening cough and SOB over past 1-2 days. Cough productive of yellow-green sputum. No fever, chills, sweats. O2 sats in 70's on at home on O2 6+ LPM. No travel or COVID-19 contacts. Tried nebs without much benefit. Brought to ED for evaluation. Very tachypneic upon arrival. Received IV methylprednisolone + neb with some improvement of her symptoms. Allergies Allergy/AdvReac Type Severity Reaction Status Date / Time hydroxyzine Allergy Unknown UNKNOWN Verified 11/15/19 08:58 fluphenazine AdvReac Intermediate confusion Verified 11/15/19 08:58 haloperidol AdvReac Intermediate "MAKES ME Verified 11/15/19 08:58 GO INTO BLACKOUT" hydrocodone AdvReac Intermediate DROWSY Verified 11/15/19 08:58 molindone AdvReac Intermediate PT FEELS Verified 11/15/19 08:58 LIKE SHES "JUMPING OUT OF HER SKIN" morphine AdvReac Intermediate DROWSY Verified 11/15/19 08:58 lithium AdvReac Mild "LEVEL CAN Verified 11/15/19 08:58 GET TOO HIGH" benzonatate AdvReac Unknown Patient Unverified 11/15/19 08:58 [From Adryan Small] states contraindication with other pulmonary meds Home Medications Home Medications Medication Instructions Recorded Confirmed Type albuterol sulfate [Ventolin HFA] 2 puff INHALATION Q6H PRN 12/27/17 11/15/19 History calcitonin (salmon) 1 spray INTRANASAL QAM 12/27/17 11/15/19 History fenofibrate nanocrystallized 48 mg PO QAM 12/27/17 11/15/19 History [Tricor] ferrous sulfate [FerrouSul] 325 mg PO BIDM 12/27/17 11/15/19 History folic acid 1 mg PO QAM 12/27/17 11/15/19 History montelukast [Singulair] 10 mg PO HS 12/27/17 11/15/19 History pantoprazole [Protonix] 40 mg PO BIDM 02/18/18 11/15/19 History magnesium hydroxide [Milk of 30 ml PO HS PRN 03/02/18 11/15/19 History Magnesia] albuterol sulfate 2.5 mg INHALATION TID PRN 07/29/18 11/15/19 History bupropion HCl 100 mg PO QAM 07/29/18 11/15/19 History calcium-vitamin D3-vitamin K 1 tab PO BIDM 07/30/18 11/15/19 History tramadol 50 mg PO Q6 PRN 08/20/18 11/15/19 History Januvia 100 mg PO QAM 11/21/18 11/15/19 History acetaminophen [Tylenol Extra 1,000 mg PO TID PRN MDD 2 GR/24 11/21/18 11/15/19 History Strength] HOURS clozapine [Clozaril] 100 mg PO BIDM 11/21/18 11/15/19 History diclofenac sodium [Voltaren] 2 g TOPICAL QID PRN 11/21/18 11/15/19 History docusate sodium 100 mg PO AMHS 11/21/18 11/15/19 History fluticasone propionate [Flonase 2 spray INTRANASAL QAM 11/21/18 11/15/19 History Allergy Relief] metoprolol tartrate 12.5 mg PO AMHS 11/21/18 11/15/19 History Mucinex 1,200 mg PO AMHS 02/14/19 11/15/19 History cyclobenzaprine 5 mg PO BID PRN 02/14/19 11/15/19 History vortioxetine [Trintellix] 20 mg PO QAM 03/12/19 11/15/19 History clotrimazole-betamethasone 1 applic TOPICAL BID 04/12/19 11/15/19 History fluticasone furoate [Arnuity 1 inh INHALATION QAM 04/12/19 11/15/19 History Ellipta] multivitamin with minerals 1 tab PO QAM 04/12/19 11/15/19 History prednisone 10 mg PO DIRECTED 05/03/19 11/15/19 History brexpiprazole [Rexulti] 4 mg PO QAM 10/05/19 11/15/19 History celecoxib [Celebrex] 100 mg PO BIDM 10/05/19 11/15/19 History famotidine 20 mg PO AMHS 10/05/19 11/15/19 History dypsepaqfwz-jtskoxnlt-qjdsalpx 1 inh INHALATION QAM 10/05/19 11/15/19 History [Trelegy Ellipta] ketoconazole 1 applic TOPICAL TID 10/05/19 11/15/19 History loratadine 10 mg PO QDD 10/05/19 11/15/19 History melatonin 5 mg PO HS PRN 10/05/19 11/15/19 History promethazine 6.25 mg PO QID PRN 10/05/19 11/15/19 History sodium chloride [Deep Sea Nasal] 2 spray INTRANASAL TID PRN 10/05/19 11/15/19 History terbinafine HCl 1 applic TOPICAL DIRECTED PRN 10/05/19 11/15/19 History clonazepam See Rx Instructions .ROUTE .COMPLEX 11/15/19 11/15/19 History Past Med/Surg History Medical History (Updated 11/15/19 @ 19:47 by Naveed Bell MD) Chronic back pain Chronic pain history of excessive sedation on narcotics no narcotics except for acute / severe pain Chronic respiratory failure with hypoxia, on home O2 therapy COPD (chronic obstructive pulmonary disease) Diabetes mellitus type 2, controlled DVT (deep venous thrombosis) right leg--no blood thinners GERD (gastroesophageal reflux disease) Hepatitis C History of anesthesia reaction did not receive enough anesthesia during a colonoscopy and felt everything Orthostatic hypotension Osteoarthritis Pulmonary fibrosis Schizophrenia Spinal stenosis Surgical History History of open reduction and internal fixation (ORIF) procedure left femur--rods in place History of thoracic spinal fusion fusion and decompression t6-t12 History of tooth extraction all teeth removed History of total abdominal hysterectomy and bilateral salpingo-oophorectomy History of vascular access device Aport on right side Family History Grandmother (Paternal) Family hx of colon cancer Social History Smoking Status: Former smoker Second Hand Exposure: No; Hx Alcohol Use: No Hx Substance Use: Yes Last Used Substance: Unknown Substance Use Type Other:: No longer Preferred Language: [place] Communication Ability: Effective Visual Impairment: No Limitations [employer]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 lives with mother and sister. Other Information That Helps Us Care for You: No Feels Safe at Home: Yes Safety Concerns: Feels Safe At This Time Review of Systems Constitutional: + malaise; no fever and no weight loss Eyes: no diplopia and no worsening vision Ear, Nose, Mouth, Throat: + sore throat (mild); no nasal congestion and no sinus pain/pressure Respiratory: as per Subjective / HPI Cardiovascular: no chest pain, no palpitations and no edema Gastrointestinal: + nausea; no vomiting, no constipation, no diarrhea/loose stools, no blood in stools and no melena Genitourinary: no dysuria and no hematuria Musculoskeletal: + joint pain; no myalgia Integumentary: + rash; no new lesions Neurologic: no headache(s) Psychiatric: + anxiety Endocrine: no polydipsia and no polyuria Hematologic / Lymphatic: + easy bruising; no easy bleeding and no lymphadenopathy Physical Exam Constitutional: WD/WN, vitals as above + ill appearing Eyes: PERRL, conjunctivae normal, anicteric sclerae ENMT: external ear and nose normal, oropharynx normal Neck: trachea midline, no thyromegaly Respiratory: + respiratory distress, + cough, able to speak in complete sent ences and + tachypneic Auscultation: + crackles, + rhonchi and + wheezes Cardiovascular: Rate/Rhythm: regular rate and + tachycardic Heart Sounds: no gallop Vessels: no JVD Extremities: normal capillary refill; no calf tenderness and no edema Gastrointestinal (Abdomen): normal bowel sounds, soft, nontender, no hepatosplenomegaly Musculoskeletal: Head/Neck/Chest: neck supple Extremities: strength 5/5 throughout; no cyanosis Skin: no rashes, warm and dry Neurologic: PERRL, EOMI no facial palsy no dysarthria or aphasia Psychiatric: Orientation: alert and oriented x 3 Affect: + anxious affect Lymphatic: no cervical lymphadenopathy Results & Data Results & Data ([facility]) Vital Signs (Past 12 Hours) Vital Signs Temp Pulse Pulse Resp BP Pulse Ox 11/15/19 10:00 108 H 25 H 104/66 100 11/15/19 09:50 110 H 21 99 11/15/19 09:41 112 H 30 H 98 11/15/19 09:30 111 H 23 106/53 L 100 11/15/19 09:20 109 H 31 H 100 11/15/19 09:10 110 H 21 99 11/15/19 09:01 102/73 99 11/15/19 08:50 112 H 16 99 11/15/19 08:45 112 H 23 99/66 L 100 11/15/19 08:44 113 H 15 100 11/15/19 08:41 114 H 24 100 11/15/19 08:40 100 11/15/19 08:31 113 H 27 H 87/65 L 100 11/15/19 08:30 114 H 28 H 100 11/15/19 08:20 117 H 29 H 100 11/15/19 08:10 126 H 30 H 92 11/15/19 08:09 129 H 29 H 93 11/15/19 08:04 128 H 18 120/80 96 11/15/19 08:01 36.9 C 116 H 28 H 120/80 99 Laboratory Results Laboratory Results - last 24 hr 11/15/19 11/15/19 11/15/19 08:15 08:15 08:15 WBC 12.89 H RBC 4.57 Hgb 14.5 Hct 45.2 MCV 98.9 MCH 31.7 MCHC 32.1 RDW Std Deviation 48.3 H RDW Coeff of Ivy 13.4 Plt Count 199 MPV 9.8 Immature Gran % (Auto) 0.6 Neut % (Auto) 78.8 Lymph % (Auto) 10.6 [place] % (Auto) 8.3 Eos % (Auto) 1.5 Baso % (Auto) 0.2 Neut # (Auto) 10.16 H Lymph # (Auto) 1.37 [place] # (Auto) 1.07 H Eos # (Auto) 0.19 Baso # (Auto) 0.02 Immature Gran # (Auto) 0.08 H PT 10.9 INR 1.0 APTT 28.4 PTT Ratio 1.0 Sodium 140 Potassium 4.7 Chloride 105 Carbon Dioxide 30 Anion Gap 5.0 BUN 16 Creatinine 1.04 Est Cr Clr Drug Dosing Not Reportable Est GFR ( Amer) 68.1 Est GFR (Non-Af Amer) 58.8 BUN/Creatinine Ratio 15.7 Glucose 138 H POC Glucose Lactate Calcium 9.1 Magnesium 1.7 L Total Bilirubin 0.6 AST 23 ALT 33 Alkaline Phosphatase 54 Troponin I 0.017 NT-Pro-B Natriuret Pep 70 Total Protein 8.5 H Albumin 3.4 Globulin 5.1 H Albumin/Globulin Ratio 0.7 L Procalcitonin Urine Color Urine Appearance Urine pH Ur Specific [place] Urine Protein Urine Glucose (UA) Urine Ketones Urine Blood Urine Nitrite Urine Bilirubin Urine Urobilinogen Ur Leukocyte Esterase Urine WBC (Auto) Urine RBC (Auto) U Hyaline Cast (Auto) U Epithel Cells (Auto) Urine Bacteria (Auto) Nasal Screen MRSA (PCR) Adenovirus (PCR) B. pertussis DNA (PCR) B.parapertussis DNA PCR C. pneumoniae DNA (PCR) Coronavirus OC43 (PCR) Coronavirus HKU1 (PCR) Coronavirus 229E (PCR) COVID-19 PCR Coronavirus NL63 (PCR) Human Metapneumovir PCR Influenza Type A (PCR) Influenza Type B (PCR) M. pneumoniae (PCR) Parainfluenza 1 (PCR) Parainfluenza 2 (PCR) Parainfluenza 3 (PCR) Parainfluenza 4 (PCR) RSV (PCR) Entero/Rhino (PCR) 11/15/19 11/15/19 11/15/19 08:15 08:20 09:04 WBC RBC Hgb Hct MCV MCH MCHC RDW Std Deviation RDW Coeff of Ivy Plt Count MPV Immature Gran % (Auto) Neut % (Auto) Lymph % (Auto) [place] % (Auto) Eos % (Auto) Baso % (Auto) Neut # (Auto) Lymph # (Auto) [place] # (Auto) Eos # (Auto) Baso # (Auto) Immature Gran # (Auto) PT INR APTT PTT Ratio Sodium Potassium Chloride Carbon Dioxide Anion Gap BUN Creatinine Est Cr Clr Drug Dosing Est GFR ( Amer) Est GFR (Non-Af Amer) BUN/Creatinine Ratio Glucose POC Glucose 139 H Lactate 2.3 H* Calcium Magnesium Total Bilirubin AST ALT Alkaline Phosphatase Troponin I NT-Pro-B Natriuret Pep Total Protein Albumin Globulin Albumin/Globulin Ratio Procalcitonin 0.09 Urine Color Urine Appearance Urine pH Ur Specific [place] Urine Protein Urine Glucose (UA) Urine Ketones Urine Blood Urine Nitrite Urine Bilirubin Urine Urobilinogen Ur Leukocyte Esterase Urine WBC (Auto) Urine RBC (Auto) U Hyaline Cast (Auto) U Epithel Cells (Auto) Urine Bacteria (Auto) Nasal Screen MRSA (PCR) Adenovirus (PCR) B. pertussis DNA (PCR) B.parapertussis DNA PCR C. pneumoniae DNA (PCR) Coronavirus OC43 (PCR) Coronavirus HKU1 (PCR) Coronavirus 229E (PCR) COVID-19 PCR Coronavirus NL63 (PCR) Human Metapneumovir PCR Influenza Type A (PCR) Influenza Type B (PCR) M. pneumoniae (PCR) Parainfluenza 1 (PCR) Parainfluenza 2 (PCR) Parainfluenza 3 (PCR) Parainfluenza 4 (PCR) RSV (PCR) Entero/Rhino (PCR) 11/15/19 11/15/19 11/15/19 11:04 12:06 12:45 WBC RBC Hgb Hct MCV MCH MCHC RDW Std Deviation RDW Coeff of Ivy Plt Count MPV Immature Gran % (Auto) Neut % (Auto) Lymph % (Auto) [place] % (Auto) Eos % (Auto) Baso % (Auto) Neut # (Auto) Lymph # (Auto) [place] # (Auto) Eos # (Auto) Baso # (Auto) Immature Gran # (Auto) PT INR APTT PTT Ratio Sodium Potassium Chloride Carbon Dioxide Anion Gap BUN Creatinine Est Cr Clr Drug Dosing Est GFR ( Amer) Est GFR (Non-Af Amer) BUN/Creatinine Ratio Glucose POC Glucose 257 H Lactate 1.7 Calcium Magnesium Total Bilirubin AST ALT Alkaline Phosphatase Troponin I NT-Pro-B Natriuret Pep Total Protein Albumin Globulin Albumin/Globulin Ratio Procalcitonin Urine Color Yellow Urine Appearance Cloudy A Urine pH 6.0 Ur Specific [place] 1.013 Urine Protein Negative Urine Glucose (UA) Trace H Urine Ketones Negative Urine Blood Trace H Urine Nitrite Positive A Urine Bilirubin Negative Urine Urobilinogen Negative Ur Leukocyte Esterase 3+ H Urine WBC (Auto) >30 H Urine RBC (Auto) 0-4 U Hyaline Cast (Auto) 1-5 U Epithel Cells (Auto) 0-5 Urine Bacteria (Auto) Negative Nasal Screen MRSA (PCR) Adenovirus (PCR) B. pertussis DNA (PCR) B.parapertussis DNA PCR C. pneumoniae DNA (PCR) Coronavirus OC43 (PCR) Coronavirus HKU1 (PCR) Coronavirus 229E (PCR) COVID-19 PCR Coronavirus NL63 (PCR) Human Metapneumovir PCR Influenza Type A (PCR) Influenza Type B (PCR) M. pneumoniae (PCR) Parainfluenza 1 (PCR) Parainfluenza 2 (PCR) Parainfluenza 3 (PCR) Parainfluenza 4 (PCR) RSV (PCR) Entero/Rhino (PCR) 11/15/19 11/15/19 11/15/19 17:19 18:27 Unknown WBC RBC Hgb Hct MCV MCH MCHC RDW Std Deviation RDW Coeff of Ivy Plt Count MPV Immature Gran % (Auto) Neut % (Auto) Lymph % (Auto) [place] % (Auto) Eos % (Auto) Baso % (Auto) Neut # (Auto) Lymph # (Auto) [place] # (Auto) Eos # (Auto) Baso # (Auto) Immature Gran # (Auto) PT INR APTT PTT Ratio Sodium Potassium Chloride Carbon Dioxide Anion Gap BUN Creatinine Est Cr Clr Drug Dosing Est GFR ( Amer) Est GFR (Non-Af Amer) BUN/Creatinine Ratio Glucose POC Glucose 128 H Lactate Calcium Magnesium Total Bilirubin AST ALT Alkaline Phosphatase Troponin I NT-Pro-B Natriuret Pep Total Protein Albumin Globulin Albumin/Globulin Ratio Procalcitonin Urine Color Urine Appearance Urine pH Ur Specific [place] Urine Protein Urine Glucose (UA) Urine Ketones Urine Blood Urine Nitrite Urine Bilirubin Urine Urobilinogen Ur Leukocyte Esterase Urine WBC (Auto) Urine RBC (Auto) U Hyaline Cast (Auto) U Epithel Cells (Auto) Urine Bacteria (Auto) Nasal Screen MRSA (PCR) Pending Adenovirus (PCR) Not Detected B. pertussis DNA (PCR) Not Detected B.parapertussis DNA PCR Not Detected C. pneumoniae DNA (PCR) Not Detected Coronavirus OC43 (PCR) Not Detected Coronavirus HKU1 (PCR) Not Detected Coronavirus 229E (PCR) Not Detected COVID-19 PCR Not Detected Coronavirus NL63 (PCR) Not Detected Human Metapneumovir PCR Not Detected Influenza Type A (PCR) Not Detected Influenza Type B (PCR) Not Detected M. pneumoniae (PCR) Not Detected Parainfluenza 1 (PCR) Not Detected Parainfluenza 2 (PCR) Not Detected Parainfluenza 3 (PCR) Not Detected Parainfluenza 4 (PCR) Not Detected RSV (PCR) Not Detected Entero/Rhino (PCR) Not Detected Diagnostic Findings PORTABLE CHEST X-RAY FINDINGS: An AP, portable, upright chest radiograph is compared to study dated 10/05/2019 and correlated with chest CT dated 02/04/2019. The examination is significantly degraded by portable technique and patient rotation. A right subclavian central venous infusion port is unchanged in position. The cardiomediastinal silhouette is unremarkable. There are low lung volumes. Chronic interstitial thickening and changes of interstitial lung disease are similar to previous. Airspace opacities throughout the left lung and in the right upper lung are similar to prior examinations. There is no evidence of superimposed airspace consolidation. No large pleural effusion or pneumothorax is seen. The skeletal structures are osteopenic. Extensive fusion hardware is noted throughout the thoracic spine. There is thoracic scoliosis. IMPRESSION: 1. Low lung volumes and chronic parenchymal changes as above are similar to previous. 2. There is no evidence of superimposed airspace consolidation or pleural effusion identified. Electronically signed by: Hubert Ferreira M.D. 11/15/2019 8:42 AM ECG Additional Comments: EKG performed at 0801 reviewed and demonstrated baseline artifact, ST at 120 / min, poor R-wave progression, no significant ST changes. Code Status & VTE Plan Code Status Advanced directives discussed with patient and her sister. She has a living will +/- POLST. No chest compressions / defib in event of cardiac arrest. She would want intubation / mech vent if necessary for ventilatory support if there was a reasonable chance of recovering to her baseline status. VTE Prophylaxis Plan VTE Prophylaxis will be ordered: Yes (1) Schizophrenia Schizophrenia type: unspecified Qualified Code(s): F20.9 - Schizophrenia, unspecified
[2019-11-15] MEDS ORDERED: SODIUM CHLORIDE 0.65% NA SOLN 45 ML (OCEAN) PRN (11:49)
[2019-11-15] MEDS ORDERED: LEVALBUTEROL HCL 0.63 MG/3 ML NEB NEB PRN (11:49)
--- NOTE | 2019-11-15 12:17 | Emergency Department Note ---
History of Present Illness General Chief complaint: Shortness of Breath/Dyspnea Time Seen by Provider: 11/15/19 07:54 Source: patient and EMS Mode of arrival: EMS Limitations: no limitations History of Present Illness Provider complaint: Shortness of breath Maximum Pain Intensity: 6 This patient is a 58-year-old female who presents emergency department with complaints of shortness of breath. She states her difficulties breathing woke her up from sleep. Patient has a longstanding history of COPD/pulmonary fibrosis and does wear home oxygen. She states she is normally between 4 and 8 L of oxygen. At the time she woke up, the patient sat up and tried to relax. She watched some TV that felt that she could not get a handle on her breathing. She had a nebulizer treatment. She denies any significant pain in the chest but does admit to some pain in her left arm. She admits to a dry cough but denies any fevers, chills, abdominal pain, vomiting or diarrhea. Patient was able to take her morning medications including her clonazepam this morning. Home Medications Home Medications Medication Instructions Recorded Confirmed Type albuterol sulfate [Ventolin HFA] 2 puff INHALATION Q6H PRN 12/27/17 11/15/19 Hi story calcitonin (salmon) 1 spray INTRANASAL QAM 12/27/17 11/15/19 History fenofibrate nanocrystallized 48 mg PO QAM 12/27/17 11/15/19 History [Tricor] ferrous sulfate [FerrouSul] 325 mg PO BIDM 12/27/17 11/15/19 History folic acid 1 mg PO QAM 12/27/17 11/15/19 History montelukast [Singulair] 10 mg PO HS 12/27/17 11/15/19 History pantoprazole [Protonix] 40 mg PO BIDM 02/18/18 11/15/19 History magnesium hydroxide [Milk of 30 ml PO HS PRN 03/02/18 11/15/19 History Magnesia] albuterol sulfate 2.5 mg INHALATION TID PRN 07/29/18 11/15/19 History bupropion HCl 100 mg PO QAM 07/29/18 11/15/19 History calcium-vitamin D3-vitamin K 1 tab PO BIDM 07/30/18 11/15/19 History tramadol 50 mg PO Q6 PRN 08/20/18 11/15/19 History Januvia 100 mg PO QAM 11/21/18 11/15/19 History acetaminophen [Tylenol Extra 1,000 mg PO TID PRN MDD 2 /11/21/18 11/15/19 History Strength] HOURS clozapine [Clozaril] 100 mg PO BIDM 11/21/18 11/15/19 History diclofenac sodium [Voltaren] 2 g TOPICAL QID PRN 11/21/18 11/15/19 History docusate sodium 100 mg PO AMHS 11/21/18 11/15/19 History fluticasone propionate [Flonase 2 spray INTRANASAL QAM 11/21/18 11/15/19 History Allergy Relief] metoprolol tartrate 12.5 mg PO AMHS 11/21/18 11/15/19 History Mucinex 1,200 mg PO AMHS 02/14/19 11/15/19 History cyclobenzaprine 5 mg PO BID PRN 02/14/19 11/15/19 History vortioxetine [Trintellix] 20 mg PO QAM 03/12/19 11/15/19 History clotrimazole-betamethasone 1 applic TOPICAL BID 04/12/19 11/15/19 History fluticasone furoate [Arnuity 1 inh INHALATION QAM 04/12/19 11/15/19 History Ellipta] multivitamin with minerals 1 tab PO QAM 04/12/19 11/15/19 History prednisone 10 mg PO DIRECTED 05/03/19 11/15/19 History brexpiprazole [Rexulti] 4 mg PO QAM 10/05/19 11/15/19 History celecoxib [Celebrex] 100 mg PO BIDM 10/05/19 11/15/19 History famotidine 20 mg PO AMHS 10/05/19 11/15/19 History kfblrwqnlln-ilghrvoye-stlgfvnp 1 inh INHALATION QAM 10/05/19 11/15/19 History [Trelegy Ellipta] ketoconazole 1 applic TOPICAL TID 10/05/19 11/15/19 History loratadine 10 mg PO QDD 10/05/19 11/15/19 History melatonin 5 mg PO HS PRN 10/05/19 11/15/19 History promethazine 6.25 mg PO QID PRN 10/05/19 11/15/19 History sodium chloride [Deep Sea Nasal] 2 spray INTRANASAL TID PRN 10/05/19 11/15/19 History terbinafine HCl 1 applic TOPICAL DIRECTED PRN 10/05/19 11/15/19 History clonazepam See Rx Instructions .ROUTE .COMPLEX 11/15/19 11/15/19 History Allergies Allergy/AdvReac Type Severity Reaction Status Date / Time hydroxyzine Allergy Unknown UNKNOWN Verified 11/15/19 08:58 fluphenazine AdvReac Intermediate confusion Verified 11/15/19 08:58 haloperidol AdvReac Intermediate "MAKES ME Verified 11/15/19 08:58 GO INTO BLACKOUT" hydrocodone AdvReac Intermediate DROWSY Verified 11/15/19 08:58 molindone AdvReac Intermediate PT FEELS Verified 11/15/19 08:58 LIKE SHES "JUMPING OUT OF HER SKIN" morphine AdvReac Intermediate DROWSY Verified 11/15/19 08:58 lithium AdvReac Mild "LEVEL CAN Verified 11/15/19 08:58 GET TOO HIGH" benzonatate AdvReac Unknown Patient Unverified 11/15/19 08:58 [From Adryan Small] states contraindication with other pulmonary meds Past Med/Surg History Medical History Chronic back pain Chronic pain history of excessive sedation on narcotics no narcotics except for acute / severe pain Chronic respiratory failure with hypoxia, on home O2 therapy COPD (chronic obstructive pulmonary disease) Diabetes mellitus type 2, controlled DVT (deep venous thrombosis) right leg--no blood thinners GERD (gastroesophageal reflux disease) History of anesthesia reaction did not receive enough anesthesia during a colonoscopy and felt everything Orthostatic hypotension Osteoarthritis Pulmonary fibrosis Schizophrenia Spinal stenosis Surgical History History of open reduction and internal fixation (ORIF) procedure left femur--rods in place History of thoracic spinal fusion fusion and decompression t6-t12 History of tooth extraction all teeth removed History of total abdominal hysterectomy and bilateral salpingo-oophorectomy History of vascular access device Aport on right side Family History Grandmother (Paternal) Family hx of colon cancer Social History Smoking Status: Former smoker Second Hand Exposure: No; Hx Alcohol Use: No Hx Substance Use: Yes Last Used Substance: Unknown Substance Use Type Other:: No longer Preferred Language: Japanese Communication Ability: Effective Visual Impairment: No Limitations [employer] Required: No Beliefs That Will Affect Care: None marital status: Single Current Living Situation: Family Current Living Situation Comment: Pt. lives with mother and sister. Other Information That Helps Us Care for You: No Feels Safe at Home: Yes Safety Concerns: Feels Safe At This Time Review of Systems See HPI for pertinent positives & negatives. and A total of 10 systems reviewed and were otherwise negative Physical Exam Vital Signs Vital Signs - 24 hr 11/15/19 08:01 11/15/19 08:04 11/15/19 08:09 Temperature 36.9 C Temperature Source Oral Pulse Rate 116 H 128 H 129 H Pulse Rate [Finger] Pulse Rate from SpO2 Sensor 129 H 129 H Respiratory Rate 28 H 18 29 H Respiratory Effort / Characteristics Grunting Labored Short of Breath Respiratory Pattern Grunting Blood Pressure 120/80 120/80 Blood Pressure Mean 93 99 Blood Pressure Position Lying Pulse Oximetry 99 96 93 Oxygen Delivery Method Oxymask Oxygen Flow Rate 10 Sepsis Recent Fever Within 48 Hours No Sepsis New/Unexplained Change in Mental Status No Sepsis Action Taken by Nursing Physician Notified 11/15/19 08:10 11/15/19 08:20 11/15/19 08:30 Temperature Temperature Source Pulse Rate 126 H 117 H 114 H Pulse Rate [Finger] Pulse Rate from SpO2 Sensor 126 H 117 H Respiratory Rate 30 H 29 H 28 H Respiratory Effort / Characteristics Respiratory Pattern Blood Pressure Blood Pressure Mean Blood Pressure Position Pulse Oximetry 92 100 100 Oxygen Delivery Method Oxymask Oxygen Flow Rate 10 Sepsis Recent Fever Within 48 Hours Sepsis New/Unexplained Change in Mental Status Sepsis Action Taken by Nursing 11/15/19 08:31 11/15/19 08:40 11/15/19 08:41 Temperature Temperature Source Pulse Rate 113 H Pulse Rate [Finger] 114 H Pulse Rate from SpO2 Sensor 114 H 114 H Respiratory Rate 27 H 24 Respiratory Effort / Characteristics Spontaneous Respiratory Pattern Blood Pressure 87/65 L Blood Pressure Mean 79 Blood Pressure Position Pulse Oximetry 100 100 100 Oxygen Delivery Method Oxymask Oxygen Flow Rate 10 Sepsis Recent Fever Within 48 Hours Sepsis New/Unexplained Change in Mental Status Sepsis Action Taken by Nursing 11/15/19 08:44 11/15/19 08:45 11/15/19 08:50 Temperature Temperature Source Pulse Rate 113 H 112 H 112 H Pulse Rate [Finger] Pulse Rate from SpO2 Sensor 112 H 112 H 111 H Respiratory Rate 15 23 16 Respiratory Effort / Characteristics Respiratory Pattern Blood Pressure 99/66 L Blood Pressure Mean 79 79 Blood Pressure Position Pulse Oximetry 100 100 99 Oxygen Delivery Method Oxygen Flow Rate Sepsis Recent Fever Within 48 Hours Sepsis New/Unexplained Change in Mental Status Sepsis Action Taken by Nursing 11/15/19 09:01 11/15/19 09:10 11/15/19 09:20 Temperature Temperature Source Pulse Rate 110 H 109 H Pulse Rate [Finger] Pulse Rate from SpO2 Sensor 115 H 109 H 110 H Respiratory Rate 21 31 H Respiratory Effort / Characteristics Respiratory Pattern Blood Pressure 102/73 Blood Pressure Mean 78 Blood Pressure Position Pulse Oximetry 99 99 100 Oxygen Delivery Method Oxygen Flow Rate Sepsis Recent Fever Within 48 Hours Sepsis New/Unexplained Change in Mental Status Sepsis Action Taken by Nursing 11/15/19 09:30 11/15/19 09:41 11/15/19 09:50 Temperature Temperature Source Pulse Rate 111 H 112 H 110 H Pulse Rate [Finger] Pulse Rate from SpO2 Sensor 111 H 111 H 111 H Respiratory Rate 23 30 H 21 Respiratory Effort / Characteristics Respiratory Pattern Blood Pressure 106/53 L Blood Pressure Mean 62 Blood Pressure Position Pulse Oximetry 100 98 99 Oxygen Delivery Method Oxygen Flow Rate Sepsis Recent Fever Within 48 Hours Sepsis New/Unexplained Change in Mental Status Sepsis Action Taken by Nursing 11/15/19 10:00 11/15/19 10:11 11/15/19 10:20 Temperature Temperature Source Pulse Rate 108 H 108 H 107 H Pulse Rate [Finger] Pulse Rate from SpO2 Sensor 108 H 108 H 108 H Respiratory Rate 25 H 32 H 24 Respiratory Effort / Characteristics Respiratory Pattern Blood Pressure 104/66 Blood Pressure Mean 77 Blood Pressure Position Pulse Oximetry 100 99 99 Oxygen Delivery Method Oxygen Flow Rate Sepsis Recent Fever Within 48 Hours Sepsis New/Unexplained Change in Mental Status Sepsis Action Taken by Nursing Vital signs reviewed. General: Chronically ill-appearing 58 yo female, in no significant distress. HEENT: No scleral icterus, PERRLA, neck supple. Minimal perioral cyanosis Cardiovascular: Tachycardic rate and rhythm, no extra sounds. Pulmonary: Rhonchi/crackles throughout the lung nunes bilaterally, increased work of breathing on nasal cannula oxygen at 6 L/min. Oxygen saturations above 90% Abdomen: Soft, nontender, nondistended, positive bowel sounds. Musculoskeletal: Atraumatic, minimal peripheral edema. Neurologic: Patient awake alert and oriented x 3 Skin: Warm, dry, no rash Course Administered Medications Discontinued Medications Albuterol (Albut/Ipratrop 3mg/0.5mg Neb 3 Ml Vial) 3 ml NEB NOW STA Stop: 11/15/19 08:10 Last Admin: 11/15/19 08:39 Dose: 3 ml Documented by: [id number] Methylprednisolone 60 mg/ (Syringe) 1.96 mls @ 1.5 mls/min IV NOW STA Stop: 11/15/19 08:10 Last Admin: 11/15/19 08:45 Dose: Not Given Documented by: [id number] Sodium Chloride (Nss 1000ml) 500 mls @ 999 mls/hr IV .Q31M ONE Stop: 11/15/19 09:17 Last Infusion: 11/15/19 09:57 Dose: 0 mls/hr Documented by: [id number] Admin: 11/15/19 09:06 Dose: 999 mls/hr Documented by: [id number] Sodium Chloride (Nss) 500 mls @ 125 mls/hr IV .Q4H DEVAN Stop: 12/15/19 08:59 Last Infusion: 11/15/19 12:11 Dose: 0 mls/hr Documented by: [id number] Admin: 11/15/19 09:06 Dose: 125 mls/hr Documented by: [id number] Cefepime HCl (Maxipime) 2,000 mg in 20 mls @ 5 mls/min IV NOW STA; Protocol Stop: 11/15/19 08:50 Last Admin: 11/15/19 09:06 Dose: 5 mls/min Documented by: [id number] Azithromycin 500 mg/ Dextrose 255 mls @ 127.5 mls/hr IV NOW STA Stop: 11/15/19 11:44 Last Admin: 11/15/19 11:16 Dose: 127.5 mls/hr Documented by: [id number] Sodium Chloride (Nss) 500 mls @ 999 mls/hr IV .Q31M ONE Stop: 11/15/19 10:38 Last Admin: 11/15/19 11:10 Dose: Not Given Documented by: [id number] Methylprednisolone (Methylprednisolone 125 Mg/2 Ml Vial) Confirm Administered Do se 125 mg .ROUTE .STK-MED ONE Stop: 11/15/19 08:41 Last Admin: 11/15/19 08:45 Dose: 60 mg Documented by: [id number] Ondansetron HCl (Ondansetron Inj 2 Mg/Ml 2 Ml Vial) 4 mg IV NOW STA Stop: 11/15/19 08:38 Last Admin: 11/15/19 08:45 Dose: 4 mg Documented by: [id number] Critical Care Time Critical Care Time: Yes I have personally spent greater than 40 minutes of critical care time in the direct management of this patient. This includes bedside care, interpretation of diagnostic studies, and testing, discussion with consultants, patient, and family members, and other required patient management activities. This 40 minutes is in excess of all separately billable procedures. Medical Decision Making Differential Diagnosis Differential diagnosis: Etiologies such as infections, reactive airway disease, COPD, pneumonia, pleural effusion, pulmonary edema, ARDS, pneumothorax, CHF, cardiac ischemia, cardiac tamponade, dysrhythmia, anemia, pulmonary embolism, musculoskeletal, gastrointestinal process, as well as others were entertained. Medical Records Attestation: I reviewed the patient's medical records. Home Medications Current Medication List: was personally reviewed by me Laboratory Data Attestation: I reviewed the patient's lab results. Result diagrams: 11/15/19 08:15 11/15/19 08:15 Lab Results 11/15/19 11/15/19 11/15/19 Range/Units 08:15 08:15 08:15 WBC 12.89 H (4.8-10.8) K/uL RBC 4.57 (4.2-5.4) M/uL Hgb 14.5 (12.0-16.0) g/dL Hct 45.2 (37-47) % MCV 98.9 (80-100) fL MCH 31.7 (25-34) pg MCHC 32.1 (32-36) g/dL RDW Std Deviation 48.3 H (36.4-46.3) fL RDW Coeff of Ivy 13.4 (11.5-14.5) % Plt Count 199 (130-400) K/uL MPV 9.8 (7.4-10.4) fL Immature Gran % (Auto) 0.6 % Neut % (Auto) 78.8 % Lymph % (Auto) 10.6 % [place] % (Auto) 8.3 % Eos % (Auto) 1.5 % Baso % (Auto) 0.2 % Neut # (Auto) 10.16 H (1.4-6.5) K/uL Lymph # (Auto) 1.37 (1.2-3.4) K/uL [place] # (Auto) 1.07 H (0.11-0.59) K/uL Eos # (Auto) 0.19 (0-0.5) K/uL Baso # (Auto) 0.02 (0-0.2) K/uL Immature Gran # (Auto) 0.08 H (0.00-0.02) K/uL PT 10.9 (9.0-12.0) Seconds INR 1.0 (0.9-1.1) APTT 28.4 (21.0-31.0) Seconds PTT Ratio 1.0 Sodium 140 (136-145) mmol/L Potassium 4.7 (3.5-5.1) mmol/L Chloride 105 (98-107) mmol/L Carbon Dioxide 30 (21-32) mmol/L Anion Gap 5.0 (3-11) BUN 16 (7-18) mg/dl Creatinine 1.04 (0.6-1.2) mg/dl Est Cr Clr Drug Dosing Not Reportable Est GFR ( Amer) 68.1 Est GFR (Non-Af Amer) 58.8 BUN/Creatinine Ratio 15.7 (10-20) Glucose 138 H (70-99) mg/dl POC Glucose (70-99) mg/dl Lactate (0.4-2.0) mmol/L Calcium 9.1 (8.5-10.1) mg/dl Magnesium 1.7 L (1.8-2.4) mg/dl Total Bilirubin 0.6 (0.2-1) mg/dl AST 23 (15-37) U/L ALT 33 (12-78) U/L Alkaline Phosphatase 54 (45-117) U/L Troponin I 0.017 (0-0.045) ng/ml NT-Pro-B Natriuret Pep 70 (0-900) pg/ml Total Protein 8.5 H (6.4-8.2) gm/dl Albumin 3.4 (3.4-5.0) gm/dl Globulin 5.1 H (2.5-4.0) gm/dl Albumin/Globulin Ratio 0.7 L (0.9-2) 11/15/19 11/15/19 Range/Units 08:20 09:04 WBC (4.8-10.8) K/uL RBC (4.2-5.4) M/uL Hgb (12.0-16.0) g/dL Hct (37-47) % MCV (80-100) fL MCH (25-34) pg MCHC (32-36) g/dL RDW Std Deviation (36.4-46.3) fL RDW Coeff of Ivy (11.5-14.5) % Plt Count (130-400) K/uL MPV (7.4-10.4) fL Immature Gran % (Auto) % Neut % (Auto) % Lymph % (Auto) % [place] % (Auto) % Eos % (Auto) % Baso % (Auto) % Neut # (Auto) (1.4-6.5) K/uL Lymph # (Auto) (1.2-3.4) K/uL [place] # (Auto) (0.11-0.59) K/uL Eos # (Auto) (0-0.5) K/uL Baso # (Auto) (0-0.2) K/uL Immature Gran # (Auto) (0.00-0.02) K/uL PT (9.0-12.0) Seconds INR (0.9-1.1) APTT (21.0-31.0) Seconds PTT Ratio Sodium (136-145) mmol/L Potassium (3.5-5.1) mmol/L Chloride (98-107) mmol/L Carbon Dioxide (21-32) mmol/L Anion Gap (3-11) BUN (7-18) mg/dl Creatinine (0.6-1.2) mg/dl Est Cr Clr Drug Dosing Est GFR ( Amer) Est GFR (Non-Af Amer) BUN/Creatinine Ratio (10-20) Glucose (70-99) mg/dl POC Glucose 139 H (70-99) mg/dl Lactate 2.3 H* (0.4-2.0) mmol/L Calcium (8.5-10.1) mg/dl Magnesium (1.8-2.4) mg/dl Total Bilirubin (0.2-1) mg/dl AST (15-37) U/L ALT (12-78) U/L Alkaline Phosphatase (45-117) U/L Troponin I (0-0.045) ng/ml NT-Pro-B Natriuret Pep (0-900) pg/ml Total Protein (6.4-8.2) gm/dl Albumin (3.4-5.0) gm/dl Globulin (2.5-4.0) gm/dl Albumin/Globulin Ratio (0.9-2) Imaging Data Radiologist's Impression: SINGLE VIEW CHEST CLINICAL HISTORY: Dyspnea. FINDINGS: An AP, portable, upright chest radiograph is compared to study dated 10/05/2019 and correlated with chest CT dated 02/04/2019. The examination is significantly degraded by portable technique and patient rotation. A right subclavian central venous infusion port is unchanged in position. The cardio mediastinal silhouette is unremarkable. There are low lung volumes. Chronic interstitial thickening and changes of interstitial lung disease are similar to previous. Airspace opacities throughout the left lung and in the right upper lung are similar to prior examinations. There is no evidence of superimposed airspace consolidation. No large pleural effusion or pneumothorax is seen. The skeletal structures are osteopenic. Extensive fusion hardware is noted throughout the thoracic spine. There is thoracic scoliosis. IMPRESSION: 1. Low lung volumes and chronic parenchymal changes as above are similar to previous. 2. There is no evidence of superimposed airspace consolidation or pleural effu johan identified. Electronically signed by: Hubert Ferreira M.D. 11/15/2019 8:42 AM Dictated: 11/15/[id number] Transcribed: [birth year]/1940 ECG Data Attestation: I personally reviewed and interpreted this ECG as follows: Indication: + SOB/dyspnea Rate (beats per minute): 124 Rhythm: + sinus tachycardia ECG [place]: + Right axis deviation ECG ST segments: + Nonspecific ST abnormalities ECG Findings: + Other (Left atrial enlargement, significant artifact); no PACs and no PVCs Blood Pressure Blood Pressure Findings: Low blood pressure Blood Pressure Disposition: further management by hospitalist JOHN Narrative This patient was evaluated and appeared to be in no significant distress. Patient was maintaining her oxygen saturations on nasal cannula however had minimal perioral cyanosis. An order for cardiac monitoring was placed and the patient is noted to be tachycardic but in a sinus rhythm at 124 bpm. She was administered Solu-Medrol 60 mg IV as well as a DuoNeb treatment. Chest x-ray reveals evidence of her chronic fibrotic change although no superimposed infiltrate is noted per radiology. Laboratory work reveals an elevated WBC although this is consistent with her baseline if not slightly lower. Patient is afebrile. Blood cultures were obtained. Lactate is elevated at 2.3. Patient was given a 500 cc bolus of normal saline solution with improvement in the blood pressure. She was then given an additional 500 cc total 125 mL's per hour. Patient's troponin is 0.017. She did receive IV cefepime and IV azithromycin. Patient was feeling much improved on my reevaluation and had a lower oxygen requirement. I did speak with Dr. Bell of the hospitalist service who will evaluate the patient for admission and further management. Patient is aware of the plan and agrees. Impression & Plan Chronic respiratory failure with hypoxia, on home O2 therapy, Pulmonary fibrosis, Acute exacerbation of chronic obstructive pulmonary disease (COPD), Acute hypotension Discharge Plan Visit Data Chief Complaint: Shortness of Breath/Dyspnea ED Provider: Myrtle Claudio Discharge Problem: Chronic respiratory failure with hypoxia, on home O2 therapy, Pulmonary fibrosis, Acute exacerbation of chronic obstructive pulmonary disease (COPD), Acute hypotension Patient Disposition: Admitted As Inpatient Discharge Instructions Interventions: ED Discharge Assessment Last Done: 11/15/19 11:25
[2019-11-15] MEDS: INSULIN ASPART 100 UNITS/ML 3 ML PEN SC SCH ×3 (12:51→21:07)
[2019-11-15 12:58] LABS: Appearance Urine Cloudy (Clear); Bacteria Urine Automated Negative (Negative); Bilirubin Urine Negative (Negative); Blood Urine Trace (Negative); Color Urine Yellow; Epithelial Cell Urine Auto 0-5 /lpf (0-5); Glucose Urine UA Trace (Negative); Ketones Urine Negative (Negative); Leukocyte Esterase Urine 3+ (Negative); Nitrite Urine Positive (Negative); Protein Urine Negative (Negative); RBC Urine Automated 0-4 /hpf (0-4); Specific Gravity Urine 1.013 (1.000-1.030); Urobilinogen Urine Negative (Negative); WBC Urine Automated >30 /hpf (0-5)
[2019-11-15] MEDS: ACETAMINOPHEN 500 MG TAB PO PRN (13:01)
[2019-11-15] MEDS: TRAMADOL HCL 50 MG TABLET PO PRN ×2 (13:58→20:23)
[2019-11-15 14:13] LABS: Adenovirus PCR Not Detected (NotDetected); Bordetella parapertussis PCR Not Detected (NotDetected); Bordetella pertussis PCR Not Detected (NotDetected); Chlamydia pneumoniae PCR Not Detected (NotDetected); Coronavirus 229E PCR Not Detected (NotDetected); Coronavirus CoV-2 (COVID19)PCR Not Detected (NotDetected); Coronavirus HKU1 PCR Not Detected (NotDetected); Coronavirus NL63 PCR Not Detected (NotDetected); Coronavirus OC43PCR Not Detected (NotDetected); Human Metapneumovirus PCR Not Detected (NotDetected); Influenza A PCR Not Detected (NotDetected); Influenza B PCR Not Detected (NotDetected); Mycoplasma pneumoniae PCR Not Detected (NotDetected); Parainfluenza Virus 1 PCR Not Detected (NotDetected); Parainfluenza Virus 2 PCR Not Detected (NotDetected); Parainfluenza Virus 3 PCR Not Detected (NotDetected); Parainfluenza Virus 4 PCR Not Detected (NotDetected); Respiratory Syncytial VirusPCR Not Detected (NotDetected); Rhinovirus/Enterovirus PCR Not Detected (NotDetected)
[2019-11-15] MEDS ORDERED: Nursing to Pharmacy Communication SCH ×2 (14:45→20:45)
[2019-11-15] MEDS: LEVALBUTEROL HCL 1.25 MG/3 ML NEB INH SCH ×2 (15:17→19:30)
--- NOTE | 2019-11-15 16:55 | Electrocardiogram Report ---
Test Reason : Blood Pressure : / mmHG Vent. Rate : 124 BPM Atrial Rate : 124 BPM P-R Int : 168 ms QRS Dur : 078 ms QT Int : 288 ms P-R-T Axes : 035 109 041 degrees QTc Int : 413 ms Poor data quality, interpretation may be adversely affected Sinus tachycardia Possible Left atrial enlargement Rightward axis Abnormal ECG When compared with ECG of 05-OCT-2019 17:45, Premature ventricular complexes are no longer Present DC interval has decreased QRS axis Shifted right Confirmed by Je Graham ([id number]) on 11/15/2019 4:55:01 PM Referred By: REFERRED SELF Confirmed By:French Graham
[2019-11-15] MEDS: cloZAPine 100 MG TAB PO SCH (17:20)
[2019-11-15] MEDS: CELECOXIB 100 MG CAP PO SCH (17:20)
[2019-11-15] MEDS: PANTOprazole 40 MG TAB PO SCH (17:20)
[2019-11-15] MEDS: ENOXAPARIN INJ 40 MG/0.4 ML SYR SQ SCH (20:17)
[2019-11-15] MEDS: DOCUSATE SODIUM 100 MG CAP PO SCH (20:17)
[2019-11-15] MEDS: guaiFENesin 600 MG TABCR PO SCH (20:18)
[2019-11-15] MEDS: FAMOTIDINE 20 MG TAB PO SCH (20:19)
[2019-11-15] MEDS: MONTELUKAST SODIUM 10 MG TABLET PO SCH (20:19)
[2019-11-15] MEDS: methylPREDNISolone 20 MG in SYRINGE 0 ML IV SCH (20:19)
[2019-11-15] MEDS: clonazePAM 0.5 MG TAB PO SCH (20:23)
[2019-11-15] MEDS: METOPROLOL TARTRATE 25 MG TAB PO SCH (20:24)
[2019-11-15] MEDS: CEFEPIME 2,000 MG in SYRINGE 0 ML IV SCH (20:46)
[2019-11-16 05:20] LABS: Basophils # (auto) 0.01 K/uL (0-0.2); Basophils % (auto) 0.1 %; Eosinophils # (auto) 0.01 K/uL (0-0.5); Eosinophils % (auto) 0.1 %; Hematocrit (blood only) 40.7 % (37-47); Hemoglobin 12.9 g/dL (12.0-16.0); Immature Granulocytes # (auto) 0.11 K/uL (0.00-0.02); Immature Granulocytes % (auto) 0.8 %; Lymphocytes # (auto) 0.84 K/uL (1.2-3.4); Lymphocytes % (auto) 6.4 %; Mean Corpuscular Hemoglobin 31.5 pg (25-34); Mean Corpuscular Hgb Conc 31.7 g/dL (32-36); Mean Corpuscular Volume 99.3 fL (80-100); Mean Platelet Volume 9.9 fL (7.4-10.4); Monocytes # (auto) 1.28 K/uL (0.11-0.59); Monocytes % (auto) 9.7 %; Neutrophils % (auto) 82.9 %; Platelet Count 199 K/uL (130-400); RDW Coefficient of Variation 13.5 % (11.5-14.5); RDW Standard Deviation 48.5 fL (36.4-46.3); White Blood Count 13.15 K/uL (4.8-10.8)
[2019-11-16 05:48] LABS: BUN Creatinine Ratio 25.7 (10-20); Blood Urea Nitrogen 19 mg/dl (7-18); Calcium 9.2 mg/dl (8.5-10.1); Carbon Dioxide 33 mmol/L (21-32); Chloride 109 mmol/L (98-107); Est GFR (African American) 104.5; Est GFR (Non-African American) 90.1; Glucose 120 mg/dl (70-99); Potassium 4.2 mmol/L (3.5-5.1); Sodium 143 mmol/L (136-145)
[2019-11-16] MEDS: LEVALBUTEROL HCL 1.25 MG/3 ML NEB INH SCH ×4 (07:22→19:15)
[2019-11-16] MEDS: CEFEPIME 2,000 MG in SYRINGE 0 ML IV SCH ×2 (08:16→20:57)
[2019-11-16] MEDS: methylPREDNISolone 20 MG in SYRINGE 0 ML IV SCH ×2 (08:17→20:54)
[2019-11-16] MEDS: METOPROLOL TARTRATE 25 MG TAB PO SCH ×2 (08:17→20:52)
[2019-11-16] MEDS: BuPROPion SR 100 MG TABCR PO SCH (08:18)
[2019-11-16] MEDS: FAMOTIDINE 20 MG TAB PO SCH ×2 (08:18→20:54)
[2019-11-16] MEDS: AZITHROMYCIN 250 MG TAB PO SCH (08:18)
[2019-11-16] MEDS: PANTOprazole 40 MG TAB PO SCH ×2 (08:19→17:32)
[2019-11-16] MEDS: guaiFENesin 600 MG TABCR PO SCH ×2 (08:19→20:53)
[2019-11-16] MEDS: FLUTICASONE PROPIONATE NA SPR 16 GM BTL SCH (08:20)
[2019-11-16] MEDS: CELECOXIB 100 MG CAP PO SCH ×2 (08:20→17:32)
[2019-11-16] MEDS: FOLIC ACID 1 MG TAB PO SCH (08:20)
[2019-11-16] MEDS: DOCUSATE SODIUM 100 MG CAP PO SCH ×2 (08:20→20:51)
[2019-11-16] MEDS: cloZAPine 100 MG TAB PO SCH ×2 (08:20→17:32)
[2019-11-16] MEDS: INSULIN ASPART 100 UNITS/ML 3 ML PEN SC SCH ×4 (08:23→21:11)
[2019-11-16] MEDS: TRAMADOL HCL 50 MG TABLET PO PRN ×3 (08:29→20:57)
[2019-11-16] MEDS ORDERED: BREXPIPRAZOLE 4 MG PO SCH (09:00)
[2019-11-16] MEDS ORDERED: NON-FORMULARY MEDICATION (Vortioxetine [Trintellix] 20 MG) PO SCH (09:00)
--- NOTE | 2019-11-16 09:58 | Hospitalist Progress Note ---
Date of Service November 16, 2019 Assessment & Plan (1) Acute respiratory failure with hypoxia: Chronic hypoxic resp failure on home O2. Underlying pulmonary fibrosis and COPD. Worsening dyspnea associated with productive cough. CXR shows chronic changes, no apparent acute infiltrates. Bio[employer] resp panel negative for all pathogens tested (including SARS-CoV-2 and influenza). Nasal MRSA negative, so MRSA pneumonia unlikely. Sputum gram stain- many polys, moderate gram + cocci, rare gram neg cocci. Sputum C&S pending. Continue empiric antibiotic therapy with azithromycin and cefepime. IV methylprednisolone + levalbuterol nebs for bronchospasm. Titrate supplemental O2 as necessary to maintain adequate sats. BiPAP PRN. (2) Respiratory tract infection: Probable lower respiratory tract infection. Difficult to exclude pneumonia with underlying pulmonary fibrosis. Evaluation and management as noted above. (3) Acute exacerbation of chronic obstructive pulmonary disease (COPD): Management as noted above. (4) Pulmonary fibrosis: As noted above. (5) Elevated lactic acid level: SIRS criteria in ED - tachycardia, tachypnea, leukocytosis Suspected pulmonary infection. Serum lactate = 2.3, repeat 1.7. Procalcitonin = 0.09. Possible severe sepsis, but normal procalcitonin makes sepsis less likely. Elevated lactate could be secondary respiratory status with increased work of breathing + hypoxia. Blood cultures obtained in ED. Started on broad spectrum antibiotics. Initial BP's low, improved after 500 ml fluid bolus. More aggressive fluid resuscitation (e.g., 30 ml/kg) not appropriate given pulmonary status. (6) Abnormal urinalysis: UA showed many WBC's, 3+ leukocyte esterase, + nitrites, but no bacteria. Urinary incontinence without dysuria. Urine C&S pending. (7) Diabetes mellitus type 2, controlled: Watch for worsening glycemic control on increased dose of steroids. Insulin coverage PRN. Blood sugars as high as 257 11/14. FBS this morning = 103. (8) Schizophrenia: Continue usual meds. Watch for steroid-related psychosis. (9) Hepatitis C: Recently prescribed glecaprevir / pibrenstasvir, but has not yet started treatment. (10) Do not resuscitate status: Advanced directives discussed with patient and her sister 11/15/19. She has a living will +/- POLST. No chest compressions / defib in event of cardiac arrest. She would want temporary intubation / mech vent if necessary for ventilatory support if there was a reasonable chance of recovering to her baseline status. (11) DVT prophylaxis: SQ enoxaparin. Ambulate as able. (12) Discharge planning issues: Anticipated discharge to home. Family Medicine follow-up with Dr. Adam. Admission and Anticipated Discharge Date Admission Date: November 15, 2019 Subjective Recheck for multiple problems. Patient seen in their room around 0930. Sister visiting. No fever. Cough improved; now productive of brown sputum. Less SOB. Review of Systems: Constitutional- no fever. Cardiac- no chest pain. Pulmonary- as noted above. GI- no nausea, vomiting, diarrhea, melena, hematochezia. - urinary incontinence without dysuria. Otherwise, as noted above. Physical Exam Constitutional: no acute distress Eyes: sclerae not anicteric Respiratory: no respiratory distress Auscultation: + rales (scattered, more pronounced at bases), + rhonchi (few, improved) and + wheezes (diffuse, improved) Cardiovascular: Rate/Rhythm: regular rate and regular rhythm Vessels: no JVD Extremities: no calf tenderness and no edema Gastrointestinal (Abdomen): normal bowel sounds, soft, nontender, no hepatosplenomegaly Musculoskeletal: Extremities: no cyanosis Skin: no rashes, warm and dry Psychiatric: Orientation: alert and oriented x 3 Affect: euthymic affect Results & Data Results & Data ([facility]) Vital Signs (Past 12 Hours) Vital Signs Temp Pulse Pulse Resp BP Pulse Ox 11/16/19 07:22 80 16 92 11/16/19 07:07 36.4 C L 58 L 22 149/82 H 91 11/16/19 03:49 36.6 C 75 18 142/89 H 90 11/16/19 00:00 73 11/15/19 23:18 36.5 C 56 L 20 146/73 H 90 Laboratory Results 11/16/19 04:59 11/16/19 04:59 (1) Schizophrenia Schizophrenia type: unspecified Qualified Code(s): F20.9 - Schizophrenia, unspecified
[2019-11-16] MEDS: BREXPIPRAZOLE 4 MG PO SCH (10:03)
[2019-11-16] MEDS: VORTIOXETINE HYDROBROMIDE 20 MG PO SCH (10:03)
[2019-11-16] MEDS: ACETAMINOPHEN 500 MG TAB PO PRN ×3 (12:44→22:57)
[2019-11-16] MEDS ORDERED: clonazePAM 0.25 MG TAB PO ONE (13:37)
[2019-11-16] MEDS: clonazePAM 0.5 MG TAB PO SCH (20:51)
[2019-11-16] MEDS: ENOXAPARIN INJ 40 MG/0.4 ML SYR SQ SCH (20:52)
[2019-11-16] MEDS: MONTELUKAST SODIUM 10 MG TABLET PO SCH (20:55)
[2019-11-16] MEDS: CYCLOBENZAPRINE HCL 5 MG TAB PO PRN (21:00)
[2019-11-17] MEDS: MELATONIN 3 MG TAB PO PRN (00:14)
[2019-11-17 06:11] LABS: Estimated Average Glucose 131 mg/dl; Hemoglobin A1C 6.2 % (4.5-5.6)
[2019-11-17 06:30] LABS: BUN Creatinine Ratio 25.1 (10-20); Blood Urea Nitrogen 22 mg/dl (7-18); Calcium 8.8 mg/dl (8.5-10.1); Carbon Dioxide 29 mmol/L (21-32); Chloride 106 mmol/L (98-107); Est GFR (African American) 82.2; Est GFR (Non-African American) 70.9; Glucose 132 mg/dl (70-99); Potassium 4.3 mmol/L (3.5-5.1); Sodium 142 mmol/L (136-145)
[2019-11-17] MEDS: LEVALBUTEROL HCL 1.25 MG/3 ML NEB INH SCH ×4 (07:14→19:28)
[2019-11-17] MEDS: methylPREDNISolone 20 MG in SYRINGE 0 ML IV SCH ×2 (07:52→21:17)
[2019-11-17] MEDS: PANTOprazole 40 MG TAB PO SCH ×2 (07:52→16:17)
[2019-11-17] MEDS: guaiFENesin 600 MG TABCR PO SCH ×2 (07:53→21:17)
[2019-11-17] MEDS: FAMOTIDINE 20 MG TAB PO SCH ×2 (07:53→21:19)
[2019-11-17] MEDS: DOCUSATE SODIUM 100 MG CAP PO SCH ×2 (07:54→21:18)
[2019-11-17] MEDS: METOPROLOL TARTRATE 25 MG TAB PO SCH ×2 (07:54→21:18)
[2019-11-17] MEDS: CELECOXIB 100 MG CAP PO SCH ×2 (07:54→16:16)
[2019-11-17] MEDS: cloZAPine 100 MG TAB PO SCH ×2 (07:55→16:16)
[2019-11-17] MEDS: FOLIC ACID 1 MG TAB PO SCH (07:55)
[2019-11-17] MEDS: BREXPIPRAZOLE 4 MG PO SCH (07:56)
[2019-11-17] MEDS: FLUTICASONE PROPIONATE NA SPR 16 GM BTL SCH (07:56)
[2019-11-17] MEDS: VORTIOXETINE HYDROBROMIDE 20 MG PO SCH (07:57)
[2019-11-17] MEDS: BuPROPion SR 100 MG TABCR PO SCH (08:01)
[2019-11-17] MEDS: AZITHROMYCIN 250 MG TAB PO SCH (08:02)
[2019-11-17] MEDS: TRAMADOL HCL 50 MG TABLET PO PRN ×3 (08:05→21:16)
[2019-11-17] MEDS: CEFEPIME 2,000 MG in SYRINGE 0 ML IV SCH ×2 (08:06→21:16)
[2019-11-17] MEDS: INSULIN ASPART 100 UNITS/ML 3 ML PEN SC SCH ×4 (09:24→21:19)
[2019-11-17] MEDS: ACETAMINOPHEN 500 MG TAB PO PRN (11:00)
[2019-11-17] MEDS ORDERED: clonazePAM 0.25 MG TAB PO ONE (11:28)
[2019-11-17] MEDS: clonazePAM 0.25 MG TAB PO SCH (16:15)
[2019-11-17] MEDS: CYCLOBENZAPRINE HCL 5 MG TAB PO PRN (18:16)
[2019-11-17] MEDS: clonazePAM 0.5 MG TAB PO SCH (21:16)
[2019-11-17] MEDS: ENOXAPARIN INJ 40 MG/0.4 ML SYR SQ SCH (21:17)
[2019-11-17] MEDS: MONTELUKAST SODIUM 10 MG TABLET PO SCH (21:19)
--- NOTE | 2019-11-17 22:55 | Hospitalist Progress Note ---
Date of Service November 17, 2019 Assessment & Plan (1) Acute respiratory failure with hypoxia: Chronic hypoxic resp failure on home O2. Underlying pulmonary fibrosis and COPD. Worsening dyspnea associated with productive cough. CXR shows chronic changes, no apparent acute infiltrates. BioFire resp panel negative for all pathogens tested (including SARS-CoV-2 and influenza). Nasal MRSA negative, so MRSA pneumonia unlikely. Sputum gram stain- many polys, moderate gram + cocci, rare gram neg cocci. Sputum C&S light normal anupama. Received empiric antibiotic therapy with azithromycin and cefepime. Change antibiotic therapy to doxycycline in light of negative micro studies. IV methylprednisolone + levalbuterol nebs for bronchospasm. Taper steroids as tolerated to most recent regimen of prednisone 15 mg in a.m. and 5 mg in p.m. Titrate supplemental O2 as necessary to maintain adequate sats. BiPAP PRN. (2) Respiratory tract infection: Probable lower respiratory tract infection. Difficult to exclude pneumonia with underlying pulmonary fibrosis. Evaluation and management as noted above. (3) Acute exacerbation of chronic obstructive pulmonary disease (COPD): Management as noted above. (4) Pulmonary fibrosis: As noted above. Follow-up with Pulmonary Medicine. (5) Elevated lactic acid level: SIRS criteria in ED - tachycardia, tachypnea, leukocytosis Suspected pulmonary infection. Serum lactate = 2.3, repeat 1.7. Procalcitonin = 0.09. Possible severe sepsis, but normal procalcitonin makes sepsis less likely. Elevated lactate could be secondary respiratory status with increased work of breathing + hypoxia. Blood cultures obtained in ED. Started on broad spectrum antibiotics. Initial BP's low, improved after 500 ml fluid bolus. More aggressive fluid resuscitation (e.g., 30 ml/kg) not appropriate given pulmonary status. (6) Abnormal urinalysis: UA showed many WBC's, 3+ leukocyte esterase, + nitrites, but no bacteria. Urinary incontinence without dysuria. Urine culture grew 3 types of organisms, low counts, probable skin anupama. UTI unlikely. (7) Diabetes mellitus type 2, controlled: Watch for worsening glycemic control on increased dose of steroids. Insulin coverage PRN. Blood sugars as high as 257 11/14. FBS this morning = 105. (8) Schizophrenia: Continue usual meds. Watch for steroid-related psychosis. (9) Hepatitis C: Recently prescribed glecaprevir / pibrenstasvir, but has not yet started heber atment. (10) Do not resuscitate status: Advanced directives discussed with patient and her sister 11/15/19. She has a living will +/- POLST. No chest compressions / defib in event of cardiac arrest. She would want temporary intubation / mech vent if necessary for ventilatory support if there was a reasonable chance of recovering to her baseline status. (11) DVT prophylaxis: SQ enoxaparin. Ambulate as able. (12) Discharge planning issues: Anticipated discharge to home. Family Medicine follow-up with Dr. Adam. Admission and Anticipated Discharge Date Admission Date: November 15, 2019 Subjective Recheck for multiple problems. Patient seen in their room around 1130. No fever or chills. Cough improved. Less SOB. No chest pain. Review of Systems: Constitutional- no fever. Cardiac- no chest pain. Pulmonary- as noted above. GI- no nausea, vomiting, diarrhea, melena, hematochezia. - urinary incontinence without dysuria. Otherwise, as noted above. Physical Exam Constitutional: no acute distress Eyes: sclerae not anicteric Respiratory: no respiratory distress Auscultation: + rales (scattered, more pronounced at bases) and + wheezes (diffuse, improved) Cardiovascular: Rate/Rhythm: regular rate and regular rhythm Heart Sounds: no gallop Vessels: no JVD Extremities: no calf tenderness and no edema Gastrointestinal (Abdomen): normal bowel sounds, soft, nontender, no hepatosplenomegaly Musculoskeletal: Extremities: no cyanosis Skin: no rashes, warm and dry Psychiatric: Orientation: alert and oriented x 3 Affect: + anxious affect Results & Data Results & Data ([facility]) Vital Signs (Past 12 Hours) Vital Signs Temp Pulse Pulse Resp BP BP Pulse Ox 11/17/19 19:28 80 24 96 11/17/19 19:20 36.3 C L 99 H 20 123/72 98 11/17/19 16:00 106 H 11/17/19 15:38 36.8 C 83 20 117/84 98 11/17/19 15:21 78 18 99 11/17/19 11:24 36.4 C L 83 20 110/82 99 11/17/19 11:06 79 18 98 Laboratory Results 11/16/19 04:59 11/17/19 05:27 (1) Schizophrenia Schizophrenia type: unspecified Qualified Code(s): F20.9 - Schizophrenia, unspecified
[2019-11-18 06:32] LABS: BUN Creatinine Ratio 26.6 (10-20); Blood Urea Nitrogen 21 mg/dl (7-18); Calcium 9.4 mg/dl (8.5-10.1); Carbon Dioxide 34 mmol/L (21-32); Chloride 106 mmol/L (98-107); Est GFR (African American) 93.5; Est GFR (Non-African American) 80.7; Glucose 128 mg/dl (70-99); Potassium 4.5 mmol/L (3.5-5.1); Sodium 144 mmol/L (136-145)
[2019-11-18] MEDS: LEVALBUTEROL HCL 1.25 MG/3 ML NEB INH SCH ×2 (07:10→11:06)
[2019-11-18] MEDS: methylPREDNISolone 20 MG in SYRINGE 0 ML IV SCH ×2 (07:45→21:02)
[2019-11-18] MEDS: PANTOprazole 40 MG TAB PO SCH ×2 (07:45→16:07)
[2019-11-18] MEDS: CELECOXIB 100 MG CAP PO SCH ×2 (07:46→16:08)
[2019-11-18] MEDS: guaiFENesin 600 MG TABCR PO SCH ×2 (07:46→20:59)
[2019-11-18] MEDS: FOLIC ACID 1 MG TAB PO SCH (07:46)
[2019-11-18] MEDS: FAMOTIDINE 20 MG TAB PO SCH ×2 (07:46→21:04)
[2019-11-18] MEDS: METOPROLOL TARTRATE 25 MG TAB PO SCH ×2 (07:47→21:01)
[2019-11-18] MEDS: DOCUSATE SODIUM 100 MG CAP PO SCH ×2 (07:47→21:00)
[2019-11-18] MEDS: cloZAPine 100 MG TAB PO SCH ×2 (07:48→16:08)
[2019-11-18] MEDS: BREXPIPRAZOLE 4 MG PO SCH (07:48)
[2019-11-18] MEDS: VORTIOXETINE HYDROBROMIDE 20 MG PO SCH (07:48)
[2019-11-18] MEDS: DOXYCYCLINE HYCLATE 100 MG CAP PO SCH ×2 (07:49→21:00)
[2019-11-18] MEDS: FLUTICASONE PROPIONATE NA SPR 16 GM BTL SCH (07:49)
[2019-11-18] MEDS: TRAMADOL HCL 50 MG TABLET PO PRN ×3 (07:55→21:40)
[2019-11-18] MEDS: clonazePAM 0.25 MG TAB PO SCH ×2 (07:55→16:07)
[2019-11-18] MEDS: INSULIN ASPART 100 UNITS/ML 3 ML PEN SC SCH ×4 (07:56→20:57)
[2019-11-18] MEDS: ACETAMINOPHEN 500 MG TAB PO PRN (09:44)
[2019-11-18] MEDS ORDERED: FUROSEMIDE 20 MG TAB PO ONE (11:15)
[2019-11-18] MEDS: CYCLOBENZAPRINE HCL 5 MG TAB PO PRN ×2 (12:03→21:40)
[2019-11-18] MEDS: DICLOFENAC SOD 1% GEL 100 GM TUBE EXT PRN ×2 (12:04→20:59)
--- NOTE | 2019-11-18 13:19 | Hospitalist Progress Note ---
Date of Service November 18, 2019 Assessment & Plan (1) Acute respiratory failure with hypoxia: Acute on chronic hypoxic respiratory failure Chronic oxygen dependency --on home oxygen:4-6 LPM by NC or mask Pulmonary fibrosis and COPD. ? Complicated Bronchitis CXR:Low lung volumes and chronic parenchymal changes as above are similar to previous. There is no evidence of superimposed airspace consolidation or pleural effusion identified. BioFire resp panel negative Influenza:Negative Nasal MRSA negative Sputum culture: Moderate normal anupama Received Azithromycin and cefepime empirically Continue Doxycycline Continue IV methylprednisolone Titrate down steroids as able Continue nebs PRN Saturating well on baseline supplemental oxygen BiPAP PRN Consider following up with pulmonology as outpatient (2) Respiratory tract infection: Probable lower respiratory tract infection. Difficult to exclude pneumonia given underlying pulmonary fibrosis No obvious Pneumonia on CXR Management as above (3) Acute exacerbation of chronic obstructive pulmonary disease (COPD): Management as above. (4) Pulmonary fibrosis: Follow-up with Pulmonary Medicine. (5) Elevated lactic acid level: Possible Sepsis Met SIRS criteria on admission Source:Pulmonary infection Serum lactate normalized Procalcitonin = 0.09. Blood culture: No growth to date Received IV fluids Monitor Volume status On Lasix PRN at home for edema (6) Abnormal urinalysis: UTI ruled out Urine Culture: grew 3 types of organisms, low counts, probable skin anupama. (7) Diabetes mellitus type 2, controlled: HbA1C:6.2 Monitor BGs while on IV steroids Continue ISS (8) Schizophrenia: Continue home meds. Monitor for steroid-related psychosis. (9) Hepatitis C: Recently prescribed glecaprevir / pibrenstasvir Patient has not yet started treatment. (10) Do not resuscitate status: As per Advanced directives discussed with patient and her sister 11/15/19. She has a living will +/- POLST. No chest compressions / defib in event of cardiac arrest. She would want temporary intubation / mech vent if necessary for ventilatory support if there was a reasonable chance of recovering to her baseline status. (11) DVT prophylaxis: Lovenox SQ (12) Discharge planning issues: Anticipated discharge to home. Family Medicine follow-up with Dr. Adam. Admission and Anticipated Discharge Date Admission Date: November 15, 2019 Subjective Patient is seen and examined at bedside States feeling better today Reports chronic pain--lower extremity, back pain Dyspnea, cough better today Denies chest pain, nausea, abdominal pain, dizziness Offers no other complaints Review of Systems Review of Systems: All systems reviewed & are unremarkable except as noted in HPI & below Physical Exam Physical Exam: Physical Exam: Vitals signs as noted above General Appearance:Moderately built and nourished, no apparent distress Head: normocephalic, Atraumatic Eyes: normal inspection, EOMI Neck: supple, Trachea midline Respiratory/Chest: Decreased breath sounds, Scattered wheezes, rales Chest: + Port on Right side Cardiovascular: S1, S2, No murmur Abdomen/GI:Soft, Non tender, Bowel sounds present Extremities/Musculoskelatal:normal inspection, B/L LE edema Neurologic/Psych:AAOX3, grossly no focal neurological deficits Skin: normal color, warm Results & Data Results & Data ([facility]) Vital Signs (Past 12 Hours) Vital Signs Temp Pulse Pulse Resp BP Pulse Ox 11/18/19 11:58 36.8 C 99 H 20 124/63 99 11/18/19 11:08 84 22 98 11/18/19 08:11 79 11/18/19 07:55 36.8 C 94 H 18 132/72 100 11/18/19 07:13 93 H 22 95 11/18/19 05:40 92 H 11/18/19 04:27 36.9 C 77 20 127/86 95 Laboratory Results [facility] 11/18/19 05:10 Sodium 144 Potassium 4.5 Chloride 106 Carbon Dioxide 34 H BUN 21 H Creatinine 0.80 Glucose 128 H Calcium 9.4 (1) Schizophrenia Schizophrenia type: unspecified Qualified Code(s): F20.9 - Schizophrenia, unspecified
[2019-11-18] MEDS: ENOXAPARIN INJ 40 MG/0.4 ML SYR SQ SCH (20:58)
[2019-11-18] MEDS: MONTELUKAST SODIUM 10 MG TABLET PO SCH (21:00)
[2019-11-18] MEDS: clonazePAM 0.5 MG TAB PO SCH (21:40)
[2019-11-18] MEDS: ALBUTEROL HFA 8 GM INHALER INH PRN (22:08)
[2019-11-19 06:56] LABS: BUN Creatinine Ratio 28.2 (10-20); Calcium 9.5 mg/dl (8.5-10.1); Creatinine Clr Calc Pharmacy 92.3 ml/min; Est GFR (African American) 101.1; Est GFR (Non-African American) 87.2; Potassium 4.1 mmol/L (3.5-5.1)
[2019-11-19] MEDS: INSULIN ASPART 100 UNITS/ML 3 ML PEN SC SCH ×4 (08:13→20:26)
[2019-11-19] MEDS: methylPREDNISolone 20 MG in SYRINGE 0 ML IV SCH ×2 (08:45→20:23)
[2019-11-19] MEDS: cloZAPine 100 MG TAB PO SCH ×2 (08:48→16:35)
[2019-11-19] MEDS: PANTOprazole 40 MG TAB PO SCH ×2 (08:48→16:36)
[2019-11-19] MEDS: CELECOXIB 100 MG CAP PO SCH ×2 (08:48→16:36)
[2019-11-19] MEDS: FOLIC ACID 1 MG TAB PO SCH (08:48)
[2019-11-19] MEDS: METOPROLOL TARTRATE 25 MG TAB PO SCH ×2 (08:49→20:24)
[2019-11-19] MEDS: FAMOTIDINE 20 MG TAB PO SCH ×2 (08:50→20:23)
[2019-11-19] MEDS: DOCUSATE SODIUM 100 MG CAP PO SCH ×2 (08:50→20:22)
[2019-11-19] MEDS: CYCLOBENZAPRINE HCL 5 MG TAB PO PRN ×2 (08:50→23:49)
[2019-11-19] MEDS: DOXYCYCLINE HYCLATE 100 MG CAP PO SCH ×2 (08:50→20:24)
[2019-11-19] MEDS: guaiFENesin 600 MG TABCR PO SCH ×2 (08:50→20:25)
[2019-11-19] MEDS: DICLOFENAC SOD 1% GEL 100 GM TUBE EXT PRN (08:50)
[2019-11-19] MEDS: FLUTICASONE FUROATE 100MCG 14 PUFFS/INHALER INH SCH (08:51)
[2019-11-19] MEDS: UMECLIDINIUM/VILANTEROL 62.5/25MCG 7 PUFFS/INHALER INH SCH (08:51)
[2019-11-19] MEDS: FLUTICASONE PROPIONATE NA SPR 16 GM BTL SCH (08:52)
[2019-11-19] MEDS: VORTIOXETINE HYDROBROMIDE 20 MG PO SCH (08:53)
[2019-11-19] MEDS: BREXPIPRAZOLE 4 MG PO SCH (08:53)
[2019-11-19] MEDS: clonazePAM 0.25 MG TAB PO SCH ×2 (08:57→16:42)
[2019-11-19] MEDS: TRAMADOL HCL 50 MG TABLET PO PRN ×2 (09:28→16:35)
--- NOTE | 2019-11-19 09:44 | Psychiatric Consultation ---
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 Documented by: [id number] Vortioxetine (Vortioxetine Hydrobromide 20mg Tab) 1 ea PO QAM DEVAN Stop: 12/16/19 09:59 Last Admin: 11/19/19 08:53 Dose: 1 ea Documented by: [id number] Admin: 11/18/19 07:48 Dose: 1 ea Documented by: [id number] Admin: 11/17/19 07:57 Dose: 1 ea Documented by: [id number] Admin: 11/16/19 10:03 Dose: 1 ea Documented by: [id number] Coding Level of Care Code 15767 [facility] Lvl 2
[2019-11-19] MEDS ORDERED: POLYETHYLENE (MIRALAX) 17 GM PACK PO PRN (12:01)
[2019-11-19] MEDS: ALBUTEROL HFA 8 GM INHALER INH PRN ×2 (13:05→19:19)
[2019-11-19] MEDS: ACETAMINOPHEN 500 MG TAB PO PRN (14:14)
--- NOTE | 2019-11-19 16:35 | Hospitalist Progress Note ---
Date of Service November 19, 2019 Assessment & Plan (1) Acute respiratory failure with hypoxia: Acute on chronic hypoxic respiratory failure Chronic oxygen dependency --on home oxygen:4-6 LPM by NC or mask Pulmonary fibrosis and COPD. ? Complicated Bronchitis CXR:Low lung volumes and chronic parenchymal changes as above are similar to previous. There is no evidence of superimposed airspace consolidation or pleural effusion identified. BioFire resp panel negative Influenza:Negative Nasal MRSA negative Sputum culture: Moderate normal anupama Received Azithromycin and cefepime empirically Continue Doxycycline Continue IV methylprednisolone today Plan to transition to p.o. steroids tomorrow Continue nebs PRN Saturating well on baseline supplemental oxygen BiPAP PRN Consider following up with pulmonology as outpatient Respiratory status seems to be back to baseline (2) Respiratory tract infection: Probable lower respiratory tract infection. Difficult to exclude pneumonia given underlying pulmonary fibrosis No obvious Pneumonia on CXR Management as above (3) Acute exacerbation of chronic obstructive pulmonary disease (COPD): Management as above. Suicidal ideation Patient relates it to be situational Appreciate psychiatry input Monitor (4) Pulmonary fibrosis: Follow-up with Pulmonary Medicine. (5) Elevated lactic acid level: Possible Sepsis Met SIRS criteria on admission Source:Pulmonary infection Serum lactate normalized Procalcitonin = 0.09. Blood culture: No growth to date Received IV fluids Monitor Volume status On Lasix PRN at home for edema (6) Abnormal urinalysis: UTI ruled out Urine Culture: grew 3 types of organisms, low counts, probable skin anupama. (7) Diabetes mellitus type 2, controlled: HbA1C:6.2 Monitor BGs while on IV steroids Continue ISS (8) Schizophrenia: Continue home meds. Monitor for steroid-related psychosis. (9) Hepatitis C: Recently prescribed glecaprevir / pibrenstasvir Patient has not yet started treatment. (10) Do not resuscitate status: As per Advanced directives discussed with patient and her sister 11/15/19. She has a living will +/- POLST. No chest compressions / defib in event of cardiac arrest. She would want temporary intubation / mech vent if necessary for ventilatory support if there was a reasonable chance of recovering to her baseline status. (11) DVT prophylaxis: Lovenox SQ (12) Discharge planning issues: Anticipated discharge to home. Family Medicine follow-up with Dr. Adam. Admission and Anticipated Discharge Date Admission Date: November 15, 2019 Subjective Patient is seen and examined at bedside Denies suicidal thoughts today No new complaints Dyspnea, cough much improved Denies chest pain, nausea, abdominal pain, dizziness Reports constipation Review of Systems Review of Systems: All systems reviewed & are unremarkable except as noted in HPI & below Physical Exam Physical Exam: Physical Exam: Vitals signs as noted above General Appearance:Moderately built and nourished, no apparent distress Head: normocephalic, Atraumatic Eyes: normal inspection, EOMI Neck: supple, Trachea midline Respiratory/Chest: Decreased breath sounds, Scattered wheezes, rales Chest: + Port on Right side Cardiovascular: S1, S2, No murmur Abdomen/GI:Soft, Non tender, Bowel sounds present Extremities/Musculoskelatal:normal inspection, B/L LE edema Neurologic/Psych:AAOX3, grossly no focal neurological deficits Skin: normal color, warm Results & Data Results & Data ([facility] [place]) Vital Signs (Past 12 Hours) Vital Signs Temp Pulse Pulse Resp BP BP Pulse Ox 11/19/19 15:23 36.8 C 89 16 123/63 99 11/19/19 13:07 79 18 97 11/19/19 10:58 36.4 C L 89 18 115/85 100 11/19/19 07:25 86 11/19/19 07:15 36.4 C L 83 20 122/75 98 11/19/19 06:58 72 20 96 Laboratory Results [facility] 11/19/19 05:16 Sodium 140 Potassium 4.1 Chloride 103 Carbon Dioxide 32 BUN 21 H Creatinine 0.75 Glucose 136 H Calcium 9.5 (1) Schizophrenia Schizophrenia type: unspecified Qualified Code(s): F20.9 - Schizophrenia, unspecified
[2019-11-19] MEDS: MONTELUKAST SODIUM 10 MG TABLET PO SCH (20:24)
[2019-11-19] MEDS: ENOXAPARIN INJ 40 MG/0.4 ML SYR SQ SCH (20:25)
[2019-11-19] MEDS: clonazePAM 0.5 MG TAB PO SCH (20:41)
[2019-11-19] MEDS: MELATONIN 3 MG TAB PO PRN (23:49)
[2019-11-20] MEDS: ALBUTEROL HFA 8 GM INHALER INH PRN ×2 (00:07→08:28)
[2019-11-20] MEDS: ACETAMINOPHEN 500 MG TAB PO PRN ×2 (00:56→10:13)
[2019-11-20 06:16] LABS: BUN Creatinine Ratio 28.7 (10-20); Calcium 9.2 mg/dl (8.5-10.1); Creatinine Clr Calc Pharmacy 82.4 ml/min; Est GFR (African American) 88.2; Est GFR (Non-African American) 76.1; Magnesium 1.9 mg/dl (1.8-2.4); Potassium 4.2 mmol/L (3.5-5.1)
[2019-11-20] MEDS: FAMOTIDINE 20 MG TAB PO SCH (07:55)
[2019-11-20] MEDS: cloZAPine 100 MG TAB PO SCH (07:55)
[2019-11-20] MEDS: FOLIC ACID 1 MG TAB PO SCH (07:55)
[2019-11-20] MEDS: CELECOXIB 100 MG CAP PO SCH (07:55)
[2019-11-20] MEDS: DOXYCYCLINE HYCLATE 100 MG CAP PO SCH (07:56)
[2019-11-20] MEDS: DOCUSATE SODIUM 100 MG CAP PO SCH (07:56)
[2019-11-20] MEDS: CYCLOBENZAPRINE HCL 5 MG TAB PO PRN (07:56)
[2019-11-20] MEDS: METOPROLOL TARTRATE 25 MG TAB PO SCH (07:56)
[2019-11-20] MEDS: PANTOprazole 40 MG TAB PO SCH (07:56)
[2019-11-20] MEDS: guaiFENesin 600 MG TABCR PO SCH (07:57)
[2019-11-20] MEDS: BREXPIPRAZOLE 4 MG PO SCH (07:57)
[2019-11-20] MEDS: FLUTICASONE PROPIONATE NA SPR 16 GM BTL SCH (07:58)
[2019-11-20] MEDS: VORTIOXETINE HYDROBROMIDE 20 MG PO SCH (07:58)
[2019-11-20] MEDS: UMECLIDINIUM/VILANTEROL 62.5/25MCG 7 PUFFS/INHALER INH SCH (07:59)
[2019-11-20] MEDS: FLUTICASONE FUROATE 100MCG 14 PUFFS/INHALER INH SCH (07:59)
[2019-11-20] MEDS: INSULIN ASPART 100 UNITS/ML 3 ML PEN SC SCH ×2 (07:59→12:10)
[2019-11-20] MEDS: clonazePAM 0.25 MG TAB PO SCH (08:13)
[2019-11-20] MEDS: DICLOFENAC SOD 1% GEL 100 GM TUBE EXT PRN (09:01)
[2019-11-20] MEDS: TRAMADOL HCL 50 MG TABLET PO PRN (09:01)
[2019-11-20] MEDS: methylPREDNISolone 20 MG in SYRINGE 0 ML IV SCH (10:13)
--- NOTE | 2019-11-20 12:28 | Hospitalist Progress Note ---
Date of Service November 20, 2019 Assessment & Plan (1) Acute respiratory failure with hypoxia: Acute on chronic hypoxic respiratory failure Chronic oxygen dependency --on home oxygen:4-6 LPM by NC or mask Pulmonary fibrosis and COPD. ? Complicated Bronchitis CXR:Low lung volumes and chronic parenchymal changes as above are similar to previous. There is no evidence of superimposed airspace consolidation or pleural effusion identified. BioFire resp panel negative Influenza:Negative Nasal MRSA negative Sputum culture: Moderate normal anupama Received Azithromycin and cefepime empirically Continue Doxycycline to complete 7 day course Transition IV methylprednisolone to prednisone taper course Continue nebs PRN BiPAP PRN Continue supplemental oxygen Advised to follow up with Pulmonology as outpatient (2) Respiratory tract infection: Probable lower respiratory tract infection. Difficult to exclude pneumonia given underlying pulmonary fibrosis No obvious Pneumonia on CXR Management as above (3) Acute exacerbation of chronic obstructive pulmonary disease (COPD): Management as above. Suicidal ideation Patient relates it to be situational Currently denies any suicidal/homicidal thoughts Appreciate psychiatry input Needs follow up with Psychiatry upon discharge (4) Pulmonary fibrosis: Follow-up with Pulmonary Medicine. (5) Elevated lactic acid level: Possible Sepsis Met SIRS criteria on admission Source:Pulmonary infection Serum lactate normalized Procalcitonin = 0.09. Blood culture: No growth to date Received IV fluids Monitor Volume status On Lasix PRN at home for edema (6) Abnormal urinalysis: UTI ruled out Urine Culture: grew 3 types of organisms, low counts, probable skin anupama. (7) Diabetes mellitus type 2, controlled: HbA1C:6.2 Monitor BGs while on IV steroids Continue ISS (8) Schizophrenia: Continue home meds. Monitor for steroid-related psychosis. (9) Hepatitis C: Recently prescribed glecaprevir / pibrenstasvir Patient has not yet started treatment. (10) Do not resuscitate status: As per Advanced directives discussed with patient and her sister 11/15/19. She has a living will +/- POLST. No chest compressions / defib in event of cardiac arrest. She would want temporary intubation / mech vent if necessary for ventilatory support if there was a reasonable chance of recovering to her baseline status. (11) DVT prophylaxis: Lovenox SQ (12) Discharge planning issues: Plan to discharge home with Home Health today Family Medicine follow-up with Dr. Adam. Admission and Anticipated Discharge Date Admission Date: November 15, 2019 Subjective Patient is seen and examined at bedside Reports mild frontal headache this morning Denies any suicidal/Homicidal thoughts Cough resolved Denies any Dyspnea Discussed with psychiatry today Denies chest pain, nausea, abdominal pain, dizziness Offers no other complaints Review of Systems Review of Systems: All systems reviewed & are unremarkable except as noted in HPI & below Physical Exam Physical Exam: Physical Exam: Vitals signs as noted above General Appearance:Moderately built and nourished, no apparent distress Head: normocephalic, Atraumatic Eyes: normal inspection, EOMI Neck: supple, Trachea midline Respiratory/Chest: Decreased breath sounds, minimal wheezes Chest: + Port on Right side Cardiovascular: S1, S2, No murmur Abdomen/GI:Soft, Non tender, Bowel sounds present Extremities/Musculoskelatal:normal inspection, B/L LE edema Neurologic/Psych:AAOX3, grossly no focal neurological deficits Skin: normal color, warm Results & Data Results & Data ([facility]) Vital Signs (Past 12 Hours) Vital Signs Temp Pulse Resp BP Pulse Ox 11/20/19 07:31 36 C L 71 22 125/72 93 11/20/19 04:03 36.3 C L 75 22 117/75 94 Laboratory Results [facility] 11/20/19 05:23 Sodium 141 Potassium 4.2 Chloride 104 Carbon Dioxide 35 H BUN 24 H Creatinine 0.84 Glucose 150 H Calcium 9.2 (1) Schizophrenia Schizophrenia type: unspecified Qualified Code(s): F20.9 - Schizophrenia, unspecified
--- NOTE | 2019-11-20 12:44 | Discharge Summary ---
Date of Service November 20, 2019 Admission HPI Per Admitting Provider 58 YO female followed by Dr. Adam. History of chronic hypoxic respiratory failure due to underlying COPD + pulmonary fibrosis. On home O2 4-6 LPM by NC or mask. Worsening cough and SOB over past 1-2 days. Cough productive of yellow-green sputum. No fever, chills, sweats. O2 sats in 70's on at home on O2 6+ LPM. No travel or COVID-19 contacts. Tried nebs without much benefit. Brought to ED for evaluation. Very tachypneic upon arrival. Received IV methylprednisolone + neb with some improvement of her symptoms. Admission Exam Per Admitting Provider Physical Exam Constitutional: WD/WN, vitals as above + ill appearing Eyes: PERRL, conjunctivae normal, anicteric sclerae ENMT: external ear and nose normal, oropharynx normal Neck: trachea midline, no thyromegaly Respiratory: + respiratory distress, + cough, able to speak in complete sentences and + tachypneic Auscultation: + crackles, + rhonchi and + wheezes Cardiovascular: Rate/Rhythm: regular rate and + tachycardic Heart Sounds: no gallop Vessels: no JVD Extremities: normal capillary refill; no calf tenderness and no edema Gastrointestinal (Abdomen): normal bowel sounds, soft, nontender, no hepatosplenomegaly Musculoskeletal: Head/Neck/Chest: neck supple Extremities: strength 5/5 throughout; no cyanosis Skin: no rashes, warm and dry Neurologic: PERRL, EOMI no facial palsy no dysarthria or aphasia Psychiatric: Orientation: alert and oriented x 3 Affect: + anxious affect Lymphatic: no cervical lymphadenopathy Principal Diagnosis Acute on chronic hypoxic respiratory failure Complicated Bronchitis Pulmonary fibrosis Acute COPD Exacerbation Discharge Data Allergies Allergy/AdvReac Type Severity Reaction Status Date / Time hydroxyzine Allergy Unknown UNKNOWN Verified 11/15/19 08:58 fluphenazine AdvReac Intermediate confusion Verified 11/15/19 08:58 haloperidol AdvReac Intermediate "MAKES ME Verified 11/15/19 08:58 GO INTO BLACKOUT" hydrocodone AdvReac Intermediate DROWSY Verified 11/15/19 08:58 molindone AdvReac Intermediate PT FEELS Verified 11/15/19 08:58 LIKE SHES "JUMPING OUT OF HER SKIN" morphine AdvReac Intermediate DROWSY Verified 11/15/19 08:58 lithium AdvReac Mild "LEVEL CAN Verified 11/15/19 08:58 GET TOO HIGH" benzonatate AdvReac Unknown Patient Unverified 11/15/19 08:58 [From Adryan Small] states contraindication with other pulmonary meds Consultations 11/15/19 10:05 ED Decision to Admit Stat 11/18/19 18:09 Consult Psychiatry Routine Procedures Performed CXR:Low lung volumes and chronic parenchymal changes as above are similar to previous. There is no evidence of superimposed airspace consolidation or pleural effusion identified. Hospital Course (1) Acute respiratory failure with hypoxia: Acute on chronic hypoxic respiratory failure Chronic oxygen dependency --on home oxygen:4-6 LPM by NC or mask Pulmonary fibrosis and COPD. ? Complicated Bronchitis CXR:Low lung volumes and chronic parenchymal changes as above are similar to previous. There is no evidence of superimposed airspace consolidation or pleural effusion identified. BioFire resp panel negative Influenza:Negative Nasal MRSA negative Sputum culture: Moderate normal anupama Received Azithromycin and cefepime empirically Continue Doxycycline to complete 7 day course Transition IV methylprednisolone to prednisone taper course Continue nebs PRN BiPAP PRN Continue supplemental oxygen Advised to follow up with Pulmonology as outpatient (2) Respiratory tract infection: Probable lower respiratory tract infection. Difficult to exclude pneumonia given underlying pulmonary fibrosis No obvious Pneumonia on CXR Management as above (3) Acute exacerbation of chronic obstructive pulmonary disease (COPD): Management as above. Suicidal ideation Patient relates it to be situational Currently denies any suicidal/homicidal thoughts Appreciate psychiatry input Needs follow up with Psychiatry upon discharge (4) Pulmonary fibrosis: Follow-up with Pulmonary Medicine. (5) Elevated lactic acid level: Possible Sepsis Met SIRS criteria on admission Source:Pulmonary infection Serum lactate normalized Procalcitonin = 0.09. Blood culture: No growth to date Received IV fluids Monitor Volume status On Lasix PRN at home for edema (6) Abnormal urinalysis: UTI ruled out Urine Culture: grew 3 types of organisms, low counts, probable skin anupama. (7) Diabetes mellitus type 2, controlled: HbA1C:6.2 Monitor BGs while on IV steroids Continue ISS (8) Schizophrenia: Continue home meds. Monitor for steroid-related psychosis. (9) Hepatitis C: Recently prescribed glecaprevir / pibrenstasvir Patient has not yet started treatment. (10) Do not resuscitate status: As per Advanced directives discussed with patient and her sister 11/15/19. She has a living will +/- POLST. No chest compressions / defib in event of cardiac arrest. She would want temporary intubation / mech vent if necessary for ventilatory support if there was a reasonable chance of recovering to her baseline status. (11) DVT prophylaxis: Lovenox SQ (12) Discharge planning issues: Plan to discharge home with Home Health today Family Medicine follow-up with Dr. Adam. Total Time Total Time Spent Total Time Spent (In Minutes): 40 minutes Total Time Includes: Examination of the Patient, Discharge Planning, Medication Reconciliation, Communication With Other Providers and Other Discharge Plan Discharge Items Patient Disposition: Home - Home Health Services Reason For Visit: ACUTE ON CHRONIC RESP FAILURE Discharge Diagnosis: Acute on chronic hypoxic respiratory failure Complicated Bronchitis Pulmonary fibrosis Acute COPD Exacerbation Activity: Resume your previous activity Exercise/Sports: Gradually increase as tolerated Non-emergency contact: Primary Care Provider, Software Recruiter and Psychiatrist Call non-emergency contact if: you have any medication questions, your symptoms worsen, your pain is not controlled, your pain is worsening, your pain is unusual for you, your pain is concerning for you and you have a fever Follow-up/Referrals: Naveed Adam MD [Primary Care Provider] - 11/25/19 11:00 am (11/25/2019 11:00 AM Provider Naveed Adam III, MD Department Family [facility] ) Sharlene Wheat CRNP [Outside Practitioners] - 11/25/19 12:30 pm (Date & Time 11/25/2019 12:30 PM Provider ROSALIE Stephens Department Pulmonary Medicine, [facility] ) Diet: Carb Consistent or DM2 and Heart Healthy Diet Texture: Dental soft (bite-sized) Addtl Attending Provider Instructions: Follow-up with your primary care physician Dr. Adam on November 25, 2019 at 11 AM as scheduled Follow-up with your pharmacology professor in 2 to 3 weeks as advised Follow-up with your psychiatrist in 2 weeks Complete the antibiotic (Doxycycline) course for 3 more days Complete the prednisone course as recommended Start taking prednisone 30 mg daily for 3 days, then 20 mg daily for 3 days and then resume your home dose Seek immediate medical attention if your symptoms reoccur or worsen Pending Studies at Discharge: No Stand-Alone Forms: My [facility], Smoking Cessation Medications and DC Order Prescriptions: New doxycycline hyclate 100 mg Capsule 100 mg PO BID Qty: 6 RF: 0 prednisone 10 mg tablet 10 mg PO UD Qty: 15 RF: 0 Continued calcitonin (salmon) 200 unit/actuation [place],Non-Aerosol 1 spray Intranasal QAM RF: 0 ferrous sulfate [FerrouSul] 325 mg (65 mg iron) tablet 325 mg PO BIDM RF: 0 folic acid 1 mg Tablet 1 mg PO QAM RF: 0 montelukast [Singulair] 10 mg Tablet 10 mg PO HS RF: 0 albuterol sulfate [Ventolin HFA] 90 mcg/actuation Hfa Aerosol Inhaler 2 puff INHALATION Q6H PRN (Reason: Shortness Of Breath Or Wheezing) RF: 0 fenofibrate nanocrystallized [Tricor] 48 mg Tablet 48 mg PO QAM RF: 0 pantoprazole [Protonix] 40 mg Tablet,Delayed Release (Dr/Ec) 40 mg PO BIDM RF: 0 magnesium hydroxide [Milk of Magnesia] 400 mg/5 mL Suspension 30 ml PO HS PRN (Reason: Constipation) RF: 0 tramadol 50 mg tablet 50 mg PO Q6 PRN (Reason: Pain) RF: 0 docusate sodium 100 mg Capsule 100 mg PO AMHS RF: 0 clozapine [Clozaril] 100 mg Tablet 100 mg PO BIDM RF: 0 Januvia 100 mg Tablet 100 mg PO QAM RF: 0 metoprolol tartrate 25 mg Tablet 12.5 mg PO AMHS RF: 0 acetaminophen [Tylenol Extra Strength] 500 mg Tablet 1,000 mg PO TID MDD 2 GR/24 HOURS PRN (Reason: Pain) RF: 0 diclofenac sodium [Voltaren] 1 % Gel 2 g TOPICAL QID PRN (Reason: Pain) RF: 0 fluticasone propionate [Flonase Allergy Relief] 50 mcg/actuation [place],Suspension 2 spray INTRANASAL QAM RF: 0 clonazepam 0.5 mg tablet See Rx Instructions .ROUTE .COMPLEX RF: 0 furosemide [Lasix] 20 mg Tablet 20 mg PO DAILY PRN (Reason: Edema) RF: 0 albuterol sulfate 2.5 mg /3 mL (0.083 %) solution for nebulization 2.5 mg inhalation TID PRN (Reason: Shortness Of Breath) RF: 0 calcium-vitamin D3-vitamin K 500 mg-1,000 unit-40 mcg Tablet,Chewable 1 tab PO BIDM RF: 0 cyclobenzaprine 5 mg tablet 5 mg PO BID PRN (Reason: Muscle Spasm) RF: 0 Mucinex 1,200 mg Tablet Extended Release 12hr 1,200 mg PO AMHS RF: 0 Trintellix 20 mg Tablet 20 mg PO QAM RF: 0 clotrimazole-betamethasone 1-0.05 % cream 1 applic TOPICAL BID RF: 0 multivitamin with minerals Tablet 1 tab PO QAM RF: 0 Arnuity Ellipta 100 mcg/actuation blister with device 1 inh inhalation QAM RF: 0 prednisone 10 mg tablet 10 mg PO DIRECTED RF: 0 terbinafine HCl 1 % Cream 1 applic TOPICAL DIRECTED PRN (Reason: RASH ON STOMACH) RF: 0 promethazine 6.25 mg/5 mL Syrup 6.25 mg PO QID PRN (Reason: Cough) RF: 0 famotidine 20 mg Tablet 20 mg PO AMHS RF: 0 celecoxib [Celebrex] 100 mg Capsule 100 mg PO BIDM RF: 0 ketoconazole 2 % Cream 1 applic TOPICAL TID RF: 0 loratadine 10 mg Tablet 10 mg PO QDD RF: 0 sodium chloride [Deep Sea Nasal] 0.65 % Aerosol,[place] 2 spray INTRANASAL TID PRN (Reason: DRYNESS) RF: 0 melatonin 5 mg Tablet 5 mg PO HS PRN (Reason: Sleep) RF: 0 Rexulti 4 mg tablet 4 mg PO QAM RF: 0 Trelegy Ellipta 100-62.5-25 mcg Blister With Device 1 inh INHALATION QAM RF: 0 Discharge Orders: Discharge Order (Routine); Ordered 11/20/19 Ordered By: Rico Benítez/Other Patient Handouts: Managing Type 2 Diabetes Admission Data Admit Date/Time: 11/15/19 10:26 Attending Provider: Rico Kc Admit Provider: Naveed Bell Primary Care Provider: Naveed Adam Other Providers: Naveed Bell ; Monika Paula Other Interventions: Discharge Summary Assessment (RN) Last Done: 11/20/19 13:14
[2019-11-21] MEDS ORDERED: methylPREDNISolone 20 MG in SYRINGE 0 ML IV SCH (09:00)
== END 2019-11-20 13:53 | disposition home health service (06) | DRG 189 ==
LOC: ED 07:52 → 2E 10:26 → SUATTDRO 10:26 → 2E 11:25

== ENCOUNTER 2020-01-06 09:33 | Inpatient (IN) ==
--- NOTE | 2020-01-06 09:39 | Emergency Department Note ---
Impression & Plan COPD (chronic obstructive pulmonary disease) ED Provider Note NAME: VIVIEN RIVERS AGE: 59 SEX: F : 1960 ARRIVES VIA: Ambulance INFORMANT: Patient, ED PROVIDER(S): Jovon Bella MD Chief Complaint: "I want to kill myself." HPI: Patient does present with thoughts of self-harm. The patient states that s he wants to bring a CD and slit her wrist. Patient states that she does have a prior history of suicidal ideation and attempt in the past. The patient states that she has been taking her medications but also states that she is concerned about her shortness of breath. The patient does have significant lung disease. The patient states that she has had a slightly productive cough but cannot quali fy the sputum. Patient denies any fevers or chills. Patient denies chest pains. The patient denies lower extremity swelling. Patient denies any HI or AVH. Patient sleep and appetite have been okay. Patient states that she has been titrating her oxygen from anywhere to 4-8 L and does wear oxygen at all times. Last admission was November 15, 2019. ROS: See HPI for pertinent positives and negatives. A total of 10 systems were reviewed and otherwise negative. Past medical history: See below Surgical history: See below Social history: See below Physical Exam: GENERAL: Chronically ill in appearance, nasal cannula in place. EYE EXAM: Normal conjunctiva. PERRL, no anisocoria and EOM's grossly intact w/o pain. NECK: Supple, no nuchal rigidity, no adenopathy, non-tender. No signs of me ningismus. LUNGS: Diffuse wheezes throughout with scattered rhonchi. Normal chest wall mechanics. HEART: NSR, no MRG. ABDOMEN: Abdomen soft, non-tender, normo-active bowel sounds, no masses, no rebo und or guarding. BACK: No CVA TTP. SKIN: No rashes and no bruising. UPPER EXTREMITIES: Upper extremities are grossly normal. LOWER EXTREMITIES: Grossly normal, no edema. NEURO EXAM: A&O x3, cranial nerves II-XII grossly intact, normal speech, moves all 4 extremities on command w/o issue. Differential diagnoses: Reactive airway disease, pneumonia, pneumothorax, COPD, CHF, infections, cardiac ischemia, pulmonary embolism, musculoskeletal, gastrointestinal, as well as other pathologies. Mood disorder, infection, hypoglycemia, electrolyte abnormalities, cardiac sources, intracerebral event, toxicologic, trauma, neurologic, as well as other pathologies. Course: Patient was seen and evaluated the bedside. Full history physical exam was performed. EKG: Indication: Shortness of breath Normal sinus rhythm, rate of 75, normal intervals, no ST changes. No significant change from prior EKG November 15, 2019. Imaging Studies: Radiology results as stated below per my review in the radiologist's interpretation: XR chest 1V portable HISTORY: 59 years-old Female Dyspnea acute shortness of breath COMPARISON: Chest radiograph 06/15/2019, CTA chest 02/04/2019. TECHNIQUE: AP view of the chest FINDINGS: Cardiac silhouette is enlarged, unchanged. Stable positioning of the right IJ [id number]-[id number] catheter. The patient is side bent and rotated. No pneumothorax or large pleural effusion. Chronic left greater than right reticular opacities are redemonstrated, mildly progressed. Degenerative changes of the shoulders and spine. Posterior interbody nina and screw fusion hardware of the midthoracic spine. Healed remote right-sided rib fractures. IMPRESSION: 1. Chronic interstitial lung disease redemonstrated. 2. Cardiomegaly with progressively worsened bilateral reticular opacities, possibly reflective of superimposed mild pulmonary edema or pneumonitis. ACT 112: Negative or not required by law. The above report was generated using voice recognition software. It may contain grammatical, syntax or spelling errors. Electronically signed by: Jeanmarie Sharp M.D. 01/06/2020 10:54 AM Dictated: 01/06/20 1050 Transcribed: 01/06/20 1050 Cardiac monitoring: An order was placed for continuous cardiac monitoring. The monitor shows a rate of 82 with sinus rhythm. MDM: Patient did present with concern for shortness of breath in addition to mental health concerns. Blood work was obtained along with chest x-ray. The patient was ordered mag fluids and steroids. Patient has mild white count of 11. Patient's normal H&H and platelet count. The patient's kidney function is unremarkable with borderline elevated glucose. Troponin is not detectable. EKG is unchanged. Covid negative. Patient was treated with methyl Pred mag and IV fluids. Chest x-ray shows the possibility of pneumonitis. Patient was ordered doxycycline given increased urine production history of COPD. Patient was deemed medically cleared and was seen and evaluated by psych case management. Patient was seen not to be a threat or harm herself or others. The patient did have an episode where the patient was hypoxic into the mid to low 80s and did have significant phlegm production. Given this I did speak to the on-call hospitalist and the patient was admitted to Dr. Rhoda MD. patient was ordered hour-long DuoNeb. Covid was negative. Past Med/Surg History Medical History (Updated 01/06/20 @ 15:43 by Joovn Bella MD) Chronic back pain Chronic pain history of excessive sedation on narcotics no narcotics except for acute / severe pain Chronic respiratory failure with hypoxia, on home O2 therapy COPD (chronic obstructive pulmonary disease) Diabetes mellitus type 2, controlled Do not resuscitate status Discussed with pt + sister 11/14. No CPR. Temporary intubation / mechanical vent OK. DVT (deep venous thrombosis) right leg--no blood thinners GERD (gastroesophageal reflux disease) Hepatitis C History of anesthesia reaction did not receive enough anesthesia during a colonoscopy and felt everything Orthostatic hypotension Osteoarthritis Pulmonary fibrosis Schizophrenia Spinal stenosis Surgical History History of open reduction and internal fixation (ORIF) procedure left femur--rods in place History of thoracic spinal fusion fusion and decompression t6-t12 History of tooth extraction all teeth removed History of total abdominal hysterectomy and bilateral salpingo-oophorectomy History of vascular access device Aport on right side Family History Grandmother (Paternal) Family hx of colon cancer Social History Smoking Status: Former smoker Tobacco Type: Cigarettes Second Hand Exposure: No; Hx Alcohol Use: No Hx Substance Use: Yes Last Used Substance: Unknown Substance Use Type Other:: No longer Preferred Language: Croatian Communication Ability: Effective Visual Impairment: No Limitations Technical Services Representative Required: No Beliefs That Will Affect Care: Spiritual marital status: Single Current Living Situation: Family Current Living Situation Comment: Pt. lives with mother and sister. Feels Safe at Home: Yes Assistive Devices: Oxygen - Continuous Allergies Allergies Allergy/AdvReac Type Severity Reaction Status Date / Time hydroxyzine Allergy Unknown UNKNOWN Verified 01/06/20 12:17 fluphenazine AdvReac Intermediate confusion Verified 01/06/20 12:17 haloperidol AdvReac Intermediate "MAKES ME Verified 01/06/20 12:17 GO INTO BLACKOUT" hydrocodone AdvReac Intermediate DROWSY Verified 01/06/20 12:17 molindone AdvReac Intermediate PT FEELS Verified 01/06/20 12:17 LIKE SHES "JUMPING OUT OF HER SKIN" morphine AdvReac Intermediate DROWSY Verified 01/06/20 12:17 lithium AdvReac Mild "LEVEL CAN Verified 01/06/20 12:17 GET TOO HIGH" benzonatate AdvReac Unknown Patient Unverified 01/06/20 12:17 [From Adryan Small] states contraindication with other pulmonary meds Home Meds Home Medications Medication Instructions Recorded Confirmed albuterol sulfate [Ventolin HFA] 2 puff INHALATION Q6H PRN 12/27/17 01/06/20 calcitonin (salmon) 1 spray INTRANASAL QAM 12/27/17 01/06/20 fenofibrate nanocrystallized 48 mg PO QAM 12/27/17 01/06/20 [Tricor] ferrous sulfate [FerrouSul] 325 mg PO BIDM 12/27/17 01/06/20 folic acid 1 mg PO QAM 12/27/17 01/06/20 montelukast [Singulair] 10 mg PO HS 12/27/17 01/06/20 pantoprazole [Protonix] 40 mg PO BIDM 02/18/18 01/06/20 magnesium hydroxide [Milk of 30 ml PO HS PRN 03/02/18 01/06/20 Magnesia] albuterol sulfate 2.5 mg INHALATION TID PRN 07/29/18 01/06/20 calcium-vitamin D3-vitamin K 1 tab PO BIDM 07/30/18 01/06/20 tramadol 50 mg PO Q6 PRN 08/20/18 01/06/20 Januvia 100 mg PO QAM 11/21/18 01/06/20 acetaminophen [Tylenol Extra 1,000 mg PO TID PRN MDD 2 11/21/18 01/06/20 Strength] HOURS clozapine [Clozaril] 100 mg PO BIDM 11/21/18 01/06/20 diclofenac sodium [Voltaren] 2 g TOPICAL QID PRN 11/21/18 01/06/20 docusate sodium 100 mg PO AMHS 11/21/18 01/06/20 fluticasone propionate [Flonase 2 spray INTRANASAL QAM 11/21/18 01/06/20 Allergy Relief] metoprolol tartrate 12.5 mg PO AMHS 11/21/18 01/06/20 Mucinex 1,200 mg PO AMHS 02/14/19 01/06/20 cyclobenzaprine 5 mg PO BID PRN 02/14/19 01/06/20 Trintellix 20 mg PO QAM 03/12/19 01/06/20 Arnuity Ellipta 1 inh INHALATION QAM 04/12/19 01/06/20 clotrimazole-betamethasone 1 applic TOPICAL BID 04/12/19 01/06/20 multivitamin with minerals 1 tab PO QAM 04/12/19 01/06/20 Rexulti 4 mg PO QAM 10/05/19 01/06/20 Trelegy Ellipta 1 inh INHALATION QAM 10/05/19 01/06/20 celecoxib [Celebrex] 100 mg PO BIDM 10/05/19 01/06/20 famotidine 20 mg PO AMHS 10/05/19 01/06/20 ketoconazole 1 applic TOPICAL TID 10/05/19 01/06/20 loratadine 10 mg PO QDD 10/05/19 01/06/20 melatonin 5 mg PO HS PRN 10/05/19 01/06/20 promethazine 6.25 mg PO QID PRN 10/05/19 01/06/20 sodium chloride [Deep Sea Nasal] 2 spray INTRANASAL TID PRN 10/05/19 01/06/20 terbinafine HCl 1 applic TOPICAL DIRECTED PRN 10/05/19 01/06/20 clonazepam See Rx Instructions .ROUTE .COMPLEX 11/15/19 01/06/20 furosemide [Lasix] 20 mg PO DAILY PRN 11/18/19 01/06/20 budesonide 1 mg INHALATION BID 01/06/20 01/06/20 buspirone 15 mg PO BID 01/06/20 01/06/20 prednisone 15 mg PO DAILY 01/06/20 01/06/20 Results & Data (ED) Vital Signs Vital Signs - 24 hr 01/06/20 09:33 01/06/20 10:19 01/06/20 10:24 Temperature 36.9 C Temperature Source Oral Pulse Rate 93 H Pulse Rate [Apical] Pulse Rhythm [Apical] Pulse Strength [Apical] Respiratory Rate 24 Respiratory Effort / Characteristics Short of Breath Respiratory Depth Respiratory Pattern Regular Blood Pressure 136/106 H Blood Pressure [Right Arm] Blood Pressure Mean 116 Blood Pressure Mean [Right Arm] Blood Pressure Position Sitting Blood Pressure Position [Right Arm] Pulse Oximetry 93 96 96 Oxygen Delivery Method Nasal Cannula Room Air Room Air Oxygen Flow Rate 4 Sepsis Recent Fever Within 48 Hours No Sepsis New/Unexplained Change in Mental Status N/A Sepsis Action Taken by Nursing No Action Required 01/06/20 10:33 01/06/20 11:35 01/06/20 13:00 Temperature Temperature Source Pulse Rate Pulse Rate [Apical] 75 87 97 H Pulse Rhythm [Apical] Regular Regular Pulse Strength [Apical] Normal Normal Respiratory Rate 20 22 20 Respiratory Effort / Characteristics Non-Labored Spontaneous Non-Labored Spontaneous Respiratory Depth Normal Normal Respiratory Pattern Regular Regular Blood Pressure Blood Pressure [Right Arm] 138/98 129/89 137/96 Blood Pressure Mean Blood Pressure Mean [Right Arm] 111 102 109 Blood Pressure Position Blood Pressure Position [Right Arm] Sitting Sitting Pulse Oximetry 100 98 94 Oxygen Delivery Method Nasal Cannula Nasal Cannula Nasal Cannula Oxygen Flow Rate 2 2 5 Sepsis Recent Fever Within 48 Hours Sepsis New/Unexplained Change in Mental Status Sepsis Action Taken by Nursing 01/06/20 14:35 01/06/20 14:56 Temperature Temperature Source Pulse Rate Pulse Rate [Apical] 112 H 110 H Pulse Rhythm [Apical] Pulse Strength [Apical] Respiratory Rate 26 H 23 Respiratory Effort / Characteristics Spontaneous Respiratory Depth Respiratory Pattern Blood Pressure Blood Pressure [Right Arm] 152/116 H Blood Pressure Mean Blood Pressure Mean [Right Arm] 128 Blood Pressure Position Blood Pressure Position [Right Arm] Pulse Oximetry 100 98 Oxygen Delivery Method Oxymask Oxymask Oxygen Flow Rate 5 5 Sepsis Recent Fever Within 48 Hours Sepsis New/Unexplained Change in Mental Status Sepsis Action Taken by Detention Medications Current Medication List: was personally reviewed by me Laboratory Data Attestation: I reviewed the patient's lab results. Result diagrams: 01/06/20 10:22 01/06/20 10:22 Lab Results 01/06/20 01/06/20 01/06/20 Range/Units 10:22 10:22 10:22 WBC 11.72 H (4.8-10.8) K/uL RBC 3.96 L (4.2-5.4) M/uL Hgb 12.6 (12.0-16.0) g/dL Hct 40.0 (37-47) % MCV 101.0 H (80-100) fL MCH 31.8 (25-34) pg MCHC 31.5 L (32-36) g/dL RDW Std Deviation 48.1 H (36.4-46.3) fL RDW Coeff of Ivy 12.9 (11.5-14.5) % Plt Count 194 (130-400) K/uL MPV 9.9 (7.4-10.4) fL Immature Gran % (Auto) 0.7 % Neut % (Auto) 78.5 % Lymph % (Auto) 9.2 % [place] % (Auto) 9.6 % Eos % (Auto) 1.7 % Baso % (Auto) 0.3 % Neut # (Auto) 9.21 H (1.4-6.5) K/uL Lymph # (Auto) 1.08 L (1.2-3.4) K/uL [place] # (Auto) 1.12 H (0.11-0.59) K/uL Eos # (Auto) 0.20 (0-0.5) K/uL Baso # (Auto) 0.03 (0-0.2) K/uL Immature Gran # (Auto) 0.08 H (0.00-0.02) K/uL PT 10.9 (9.0-12.0) Seconds INR 1.0 (0.9-1.1) APTT 23.9 (21.0-31.0) Seconds PTT Ratio 0.9 VBG pH (7.36-7.41) VBG pCO2 (38-50) mmHg VBG pO2 mmHg VBG HCO3 mmol/L VBG O2 Saturation % VBG Base Excess mEq/L Barometric Pressure mm/Hg Sodium 137 (136-145) mmol/L Potassium 4.4 (3.5-5.1) mmol/L Chloride 104 (98-107) mmol/L Carbon Dioxide 29 (21-32) mmol/L Anion Gap 4.0 (3-11) BUN 18 (7-18) mg/dl Creatinine 0.81 (0.6-1.2) mg/dl Est Cr Clr Drug Dosing 86.0 ml/min Est GFR ( Amer) 91.5 Est GFR (Non-Af Amer) 78.9 BUN/Creatinine Ratio 22.5 H (10-20) Glucose 116 H (70-99) mg/dl Calcium 9.2 (8.5-10.1) mg/dl Total Bilirubin 0.3 (0.2-1) mg/dl AST 16 (15-37) U/L ALT 21 (12-78) U/L Alkaline Phosphatase 45 (45-117) U/L Troponin I < 0.015 (0-0.045) ng/ml Total Protein 8.0 (6.4-8.2) gm/dl Albumin 3.3 L (3.4-5.0) gm/dl Globulin 4.7 H (2.5-4.0) gm/dl Albumin/Globulin Ratio 0.7 L (0.9-2) Urine Color Urine Appearance (Clear) Urine pH (4.5-7.5) Ur Specific [place] (1.000-1.030) Urine Protein (Negative) Urine Glucose (UA) (Negative) Urine Ketones (Negative) Urine Blood (Negative) Urine Nitrite (Negative) Urine Bilirubin (Negative) Urine Urobilinogen (Negative) Ur Leukocyte Esterase (Negative) Urine WBC (Auto) (0-5) /hpf Urine RBC (Auto) (0-4) /hpf U Hyaline Cast (Auto) (0-5) /lpf U Epithel Cells (Auto) (0-5) /lpf Urine Bacteria (Auto) (Negative) Urine Yeast Salicylates (2.8-20) mg/dl Urine Opiates Screen (Neg) Ur Methadone, Qual (Neg) Acetaminophen (10-30) ug/ml Urine Barbiturates (Neg) Ur Phencyclidine (PCP) (Neg) U Amphetamin/Meth Scrn (Neg) MDMA (Ecstasy) Screen (Neg) U Benzodiazepines Scrn (Neg) Ur Cocaine Metabolite (Neg) U Marijuana (THC) Screen (Neg) Ethyl Alcohol mg/dL (0-3) mg/dl COVID-19 Eval Order COVID-19 PCR (Negative) 01/06/20 01/06/20 01/06/20 Range/Units 10:22 10:22 10:22 WBC (4.8-10.8) K/uL RBC (4.2-5.4) M/uL Hgb (12.0-16.0) g/dL Hct (37-47) % MCV (80-100) fL MCH (25-34) pg MCHC (32-36) g/dL RDW Std Deviation (36.4-46.3) fL RDW Coeff of Ivy (11.5-14.5) % Plt Count (130-400) K/uL MPV (7.4-10.4) fL Immature Gran % (Auto) % Neut % (Auto) % Lymph % (Auto) % [place] % (Auto) % Eos % (Auto) % Baso % (Auto) % Neut # (Auto) (1.4-6.5) K/uL Lymph # (Auto) (1.2-3.4) K/uL [place] # (Auto) (0.11-0.59) K/uL Eos # (Auto) (0-0.5) K/uL Baso # (Auto) (0-0.2) K/uL Immature Gran # (Auto) (0.00-0.02) K/uL PT (9.0-12.0) Seconds INR (0.9-1.1) APTT (21.0-31.0) Seconds PTT Ratio VBG pH 7.35 L (7.36-7.41) VBG pCO2 59 H (38-50) mmHg VBG pO2 49 mmHg VBG HCO3 32 mmol/L VBG O2 Saturation 80.9 % VBG Base Excess 4.6 mEq/L Barometric Pressure 739.1 mm/Hg Sodium (136-145) mmol/L Potassium (3.5-5.1) mmol/L Chloride (98-107) mmol/L Carbon Dioxide (21-32) mmol/L Anion Gap (3-11) BUN (7-18) mg/dl Creatinine (0.6-1.2) mg/dl Est Cr Clr Drug Dosing ml/min Est GFR ( Amer) Est GFR (Non-Af Amer) BUN/Creatinine Ratio (10-20) Glucose (70-99) mg/dl Calcium (8.5-10.1) mg/dl Total Bilirubin (0.2-1) mg/dl AST (15-37) U/L ALT (12-78) U/L Alkaline Phosphatase (45-117) U/L Troponin I (0-0.045) ng/ml Total Protein (6.4-8.2) gm/dl Albumin (3.4-5.0) gm/dl Globulin (2.5-4.0) gm/dl Albumin/Globulin Ratio (0.9-2) Urine Color Urine Appearance (Clear) Urine pH (4.5-7.5) Ur Specific [place] (1.000-1.030) Urine Protein (Negative) Urine Glucose (UA) (Negative) Urine Ketones (Negative) Urine Blood (Negative) Urine Nitrite (Negative) Urine Bilirubin (Negative) Urine Urobilinogen (Negative) Ur Leukocyte Esterase (Negative) Urine WBC (Auto) (0-5) /hpf Urine RBC (Auto) (0-4) /hpf U Hyaline Cast (Auto) (0-5) /lpf U Epithel Cells (Auto) (0-5) /lpf Urine Bacteria (Auto) (Negative) Urine Yeast Salicylates < 1.7 L (2.8-20) mg/dl Urine Opiates Screen (Neg) Ur Methadone, Qual (Neg) Acetaminophen < 2 L (10-30) ug/ml Urine Barbiturates (Neg) Ur Phencyclidine (PCP) (Neg) U Amphetamin/Meth Scrn (Neg) MDMA (Ecstasy) Screen (Neg) U Benzodiazepines Scrn (Neg) Ur Cocaine Metabolite (Neg) U Marijuana (THC) Screen (Neg) Ethyl Alcohol mg/dL < 3.0 (0-3) mg/dl COVID-19 Eval Order COVID-19 PCR (Negative) 01/06/20 01/06/20 01/06/20 Range/Units 10:30 10:30 11:33 WBC (4.8-10.8) K/uL RBC (4.2-5.4) M/uL Hgb (12.0-16.0) g/dL Hct (37-47) % MCV (80-100) fL MCH (25-34) pg MCHC (32-36) g/dL RDW Std Deviation (36.4-46.3) fL RDW Coeff of Ivy (11.5-14.5) % Plt Count (130-400) K/uL MPV (7.4-10.4) fL Immature Gran % (Auto) % Neut % (Auto) % Lymph % (Auto) % [place] % (Auto) % Eos % (Auto) % Baso % (Auto) % Neut # (Auto) (1.4-6.5) K/uL Lymph # (Auto) (1.2-3.4) K/uL [place] # (Auto) (0.11-0.59) K/uL Eos # (Auto) (0-0.5) K/uL Baso # (Auto) (0-0.2) K/uL Immature Gran # (Auto) (0.00-0.02) K/uL PT (9.0-12.0) Seconds INR (0.9-1.1) APTT (21.0-31.0) Seconds PTT Ratio VBG pH (7.36-7.41) VBG pCO2 (38-50) mmHg VBG pO2 mmHg VBG HCO3 mmol/L VBG O2 Saturation % VBG Base Excess mEq/L Barometric Pressure mm/Hg Sodium (136-145) mmol/L Potassium (3.5-5.1) mmol/L Chloride (98-107) mmol/L Carbon Dioxide (21-32) mmol/L Anion Gap (3-11) BUN (7-18) mg/dl Creatinine (0.6-1.2) mg/dl Est Cr Clr Drug Dosing ml/min Est GFR ( Amer) Est GFR (Non-Af Amer) BUN/Creatinine Ratio (10-20) Glucose (70-99) mg/dl Calcium (8.5-10.1) mg/dl Total Bilirubin (0.2-1) mg/dl AST (15-37) U/L ALT (12-78) U/L Alkaline Phosphatase (45-117) U/L Troponin I (0-0.045) ng/ml Total Protein (6.4-8.2) gm/dl Albumin (3.4-5.0) gm/dl Globulin (2.5-4.0) gm/dl Albumin/Globulin Ratio (0.9-2) Urine Color Yellow Urine Appearance Clear (Clear) Urine pH 6.5 (4.5-7.5) Ur Specific [place] 1.008 (1.000-1.030) Urine Protein Negative (Negative) Urine Glucose (UA) Negative (Negative) Urine Ketones Negative (Negative) Urine Blood Trace H (Negative) Urine Nitrite Negative (Negative) Urine Bilirubin Negative (Negative) Urine Urobilinogen Negative (Negative) Ur Leukocyte Esterase 1+ H (Negative) Urine WBC (Auto) 1-5 (0-5) /hpf Urine RBC (Auto) 5-10 H (0-4) /hpf U Hyaline Cast (Auto) 0 (0-5) /lpf U Epithel Cells (Auto) 20-30 H (0-5) /lpf Urine Bacteria (Auto) Negative (Negative) Urine Yeast Not Reportable Salicylates (2.8-20) mg/dl Urine Opiates Screen (Neg) Ur Methadone, Qual (Neg) Acetaminophen (10-30) ug/ml Urine Barbiturates (Neg) Ur Phencyclidine (PCP) (Neg) U Amphetamin/Meth Scrn (Neg) MDMA (Ecstasy) Screen (Neg) U Benzodiazepines Scrn (Neg) Ur Cocaine Metabolite (Neg) U Marijuana (THC) Screen (Neg) Ethyl Alcohol mg/dL (0-3) mg/dl COVID-19 Eval Order Covid19 Done at [facility] COVID-19 PCR NEGATIVE (Negative) 01/06/20 Range/Units 11:33 WBC (4.8-10.8) K/uL RBC (4.2-5.4) M/uL Hgb (12.0-16.0) g/dL Hct (37-47) % MCV (80-100) fL MCH (25-34) pg MCHC (32-36) g/dL RDW Std Deviation (36.4-46.3) fL RDW Coeff of Ivy (11.5-14.5) % Plt Count (130-400) K/uL MPV (7.4-10.4) fL Immature Gran % (Auto) % Neut % (Auto) % Lymph % (Auto) % [place] % (Auto) % Eos % (Auto) % Baso % (Auto) % Neut # (Auto) (1.4-6.5) K/uL Lymph # (Auto) (1.2-3.4) K/uL [place] # (Auto) (0.11-0.59) K/uL Eos # (Auto) (0-0.5) K/uL Baso # (Auto) (0-0.2) K/uL Immature Gran # (Auto) (0.00-0.02) K/uL PT (9.0-12.0) Seconds INR (0.9-1.1) APTT (21.0-31.0) Seconds PTT Ratio VBG pH (7.36-7.41) VBG pCO2 (38-50) mmHg VBG pO2 mmHg VBG HCO3 mmol/L VBG O2 Saturation % VBG Base Excess mEq/L Barometric Pressure mm/Hg Sodium (136-145) mmol/L Potassium (3.5-5.1) mmol/L Chloride (98-107) mmol/L Carbon Dioxide (21-32) mmol/L Anion Gap (3-11) BUN (7-18) mg/dl Creatinine (0.6-1.2) mg/dl Est Cr Clr Drug Dosing ml/min Est GFR ( Amer) Est GFR (Non-Af Amer) BUN/Creatinine Ratio (10-20) Glucose (70-99) mg/dl Calcium (8.5-10.1) mg/dl Total Bilirubin (0.2-1) mg/dl AST (15-37) U/L ALT (12-78) U/L Alkaline Phosphatase (45-117) U/L Troponin I (0-0.045) ng/ml Total Protein (6.4-8.2) gm/dl Albumin (3.4-5.0) gm/dl Globulin (2.5-4.0) gm/dl Albumin/Globulin Ratio (0.9-2) Urine Color Urine Appearance (Clear) Urine pH (4.5-7.5) Ur Specific [place] (1.000-1.030) Urine Protein (Negative) Urine Glucose (UA) (Negative) Urine Ketones (Negative) Urine Blood (Negative) Urine Nitrite (Negative) Urine Bilirubin (Negative) Urine Urobilinogen (Negative) Ur Leukocyte Esterase (Negative) Urine WBC (Auto) (0-5) /hpf Urine RBC (Auto) (0-4) /hpf U Hyaline Cast (Auto) (0-5) /lpf U Epithel Cells (Auto) (0-5) /lpf Urine Bacteria (Auto) (Negative) Urine Yeast Salicylates (2.8-20) mg/dl Urine Opiates Screen Neg (Neg) Ur Methadone, Qual Neg (Neg) Acetaminophen (10-30) ug/ml Urine Barbiturates Neg (Neg) Ur Phencyclidine (PCP) Neg (Neg) U Amphetamin/Meth Scrn Neg (Neg) MDMA (Ecstasy) Screen Neg (Neg) U Benzodiazepines Scrn Neg (Neg) Ur Cocaine Metabolite Neg (Neg) U Marijuana (THC) Screen Neg (Neg) Ethyl Alcohol mg/dL (0-3) mg/dl COVID-19 Eval Order COVID-19 PCR (Negative) Administered Medications Discontinued Medications Albuterol (Albut/Ipratrop 3mg/0.5mg Neb 3 Ml Vial) 12 ml NEB ONE ONE Stop: 01/06/20 14:41 Last Admin: 01/06/20 14:55 Dose: 12 ml Documented by: [id number] Doxycycline Hyclate (Doxycycline Hyclate 100 Mg Cap) 100 mg PO NOW STA Stop: 01/06/20 12:12 Last Admin: 01/06/20 12:36 Dose: 100 mg Documented by: [id number] Sodium Chloride (Nss) 500 mls @ 999 mls/hr IV .Q31M DEVAN Stop: 01/06/20 10:30 Last Infusion: 01/06/20 11:29 Dose: 0 mls/hr Documented by: [id number] Admin: 01/06/20 10:49 Dose: 999 mls/hr Documented by: [id number] Magnesium Sulfate/Dextrose (Magnesium Sulfate / D5w) 1 gm in 100 mls @ 100 mls/hr IV Q1H DEVAN Stop: 01/06/20 11:59 Last Infusion: 01/06/20 14:13 Dose: 0 mls/hr Documented by: [id number] Admin: 01/06/20 12:36 Dose: 100 mls/hr Documented by: [id number] Infusion: 01/06/20 11:35 Dose: 0 mls/hr Documented by: [id number] Admin: 01/06/20 10:35 Dose: 100 mls/hr Documented by: [id number] Methylprednisolone (Methylprednisolone 125 Mg/2 Ml Vial) 60 mg IV NOW STA Stop: 01/06/20 09:49 Last Admin: 01/06/20 10:24 Dose: 60 mg Documented by: [id number] Discharge Plan Visit Data Chief Complaint: Shortness of Breath/Dyspnea ED Provider: Jovon Bella Discharge Problem: COPD (chronic obstructive pulmonary disease) Forms Stand Alone Forms: [facility] [employer] Prescriptions Prescriptions: No Action calcitonin (salmon) 200 unit/actuation [place],Non-Aerosol 1 spray Intranasal QAM RF: 0 ferrous sulfate [FerrouSul] 325 mg (65 mg iron) tablet 325 mg PO BIDM RF: 0 folic acid 1 mg Tablet 1 mg PO QAM RF: 0 montelukast [Singulair] 10 mg Tablet 10 mg PO HS RF: 0 albuterol sulfate [Ventolin HFA] 90 mcg/actuation Hfa Aerosol Inhaler 2 puff INHALATION Q6H PRN (Reason: Shortness Of Breath Or Wheezing) RF: 0 fenofibrate nanocrystallized [Tricor] 48 mg Tablet 48 mg PO QAM RF: 0 pantoprazole [Protonix] 40 mg Tablet,Delayed Release (Dr/Ec) 40 mg PO BIDM RF: 0 magnesium hydroxide [Milk of Magnesia] 400 mg/5 mL Suspension 30 ml PO HS PRN (Reason: Constipation) RF: 0 tramadol 50 mg tablet 50 mg PO Q6 PRN (Reason: Pain) RF: 0 docusate sodium 100 mg Capsule 100 mg PO AMHS RF: 0 clozapine [Clozaril] 100 mg Tablet 100 mg PO BIDM RF: 0 Januvia 100 mg Tablet 100 mg PO QAM RF: 0 metoprolol tartrate 25 mg Tablet 12.5 mg PO AMHS RF: 0 acetaminophen [Tylenol Extra Strength] 500 mg Tablet 1,000 mg PO TID MDD 2 GR/24 HOURS PRN (Reason: Pain) RF: 0 diclofenac sodium [Voltaren] 1 % Gel 2 g TOPICAL QID PRN (Reason: Pain) RF: 0 fluticasone propionate [Flonase Allergy Relief] 50 mcg/actuation [place],Suspension 2 spray INTRANASAL QAM RF: 0 clonazepam 0.5 mg tablet See Rx Instructions .ROUTE .COMPLEX RF: 0 furosemide [Lasix] 20 mg Tablet 20 mg PO DAILY PRN (Reason: Edema) RF: 0 buspirone 15 mg tablet 15 mg PO BID RF: 0 budesonide 1 mg/2 mL suspension for nebulization 1 mg inhalation BID RF: 0 prednisone 10 mg tablet 15 mg PO DAILY RF: 0 albuterol sulfate 2.5 mg /3 mL (0.083 %) solution for nebulization 2.5 mg inhalation TID PRN (Reason: Shortness Of Breath) RF: 0 calcium-vitamin D3-vitamin K 500 mg-1,000 unit-40 mcg Tablet,Chewable 1 tab PO BIDM RF: 0 cyclobenzaprine 5 mg tablet 5 mg PO BID PRN (Reason: Muscle Spasm) RF: 0 Mucinex 1,200 mg Tablet Extended Release 12hr 1,200 mg PO AMHS RF: 0 Trintellix 20 mg Tablet 20 mg PO QAM RF: 0 clotrimazole-betamethasone 1-0.05 % cream 1 applic TOPICAL BID RF: 0 multivitamin with minerals Tablet 1 tab PO QAM RF: 0 Arnuity Ellipta 100 mcg/actuation blister with device 1 inh inhalation QAM RF: 0 terbinafine HCl 1 % Cream 1 applic TOPICAL DIRECTED PRN (Reason: RASH ON STOMACH) RF: 0 promethazine 6.25 mg/5 mL Syrup 6.25 mg PO QID PRN (Reason: Cough) RF: 0 famotidine 20 mg Tablet 20 mg PO AMHS RF: 0 celecoxib [Celebrex] 100 mg Capsule 100 mg PO BIDM RF: 0 ketoconazole 2 % Cream 1 applic TOPICAL TID RF: 0 loratadine 10 mg Tablet 10 mg PO QDD RF: 0 sodium chloride [Deep Sea Nasal] 0.65 % Aerosol,[place] 2 spray INTRANASAL TID PRN (Reason: DRYNESS) RF: 0 melatonin 5 mg Tablet 5 mg PO HS PRN (Reason: Sleep) RF: 0 Rexulti 4 mg tablet 4 mg PO QAM RF: 0 Trelegy Ellipta 100-62.5-25 mcg Blister With Device 1 inh INHALATION QAM RF: 0 Discharge Problem: COPD (chronic obstructive pulmonary disease) Qualifiers: COPD type: COPD with acute exacerbation Qualified Code(s): J44.1 - Chronic obstructive pulmonary disease with (acute) exacerbation
[2020-01-06] MEDS ORDERED: methylPREDNISolone 125 MG/2 ML VIAL IV STA (09:48)
[2020-01-06] MEDS ORDERED: SODIUM CHLORIDE 0.9% 500 ML IV SCH (10:00)
[2020-01-06 10:35] LABS: Base Excess VBG 4.6 mEq/L; Oxygen Saturation VBG 80.9 %; pH VBG 7.35 (7.36-7.41)
[2020-01-06] MEDS: MAGNESIUM SULFATE / D5W 1 GM/100 ML BAG IV SCH ×2 (10:35→12:36)
[2020-01-06 10:37] LABS: Basophils # (auto) 0.03 K/uL (0-0.2); Basophils % (auto) 0.3 %; Eosinophils % (auto) 1.7 %; Hemoglobin 12.6 g/dL (12.0-16.0); Immature Granulocytes # (auto) 0.08 K/uL (0.00-0.02); Immature Granulocytes % (auto) 0.7 %; Lymphocytes # (auto) 1.08 K/uL (1.2-3.4); Lymphocytes % (auto) 9.2 %; Mean Corpuscular Hemoglobin 31.8 pg (25-34); Mean Corpuscular Hgb Conc 31.5 g/dL (32-36); Mean Platelet Volume 9.9 fL (7.4-10.4); Monocytes # (auto) 1.12 K/uL (0.11-0.59); Monocytes % (auto) 9.6 %; Neutrophils # (auto) 9.21 K/uL (1.4-6.5); Neutrophils % (auto) 78.5 %; Platelet Count 194 K/uL (130-400); RDW Coefficient of Variation 12.9 % (11.5-14.5); RDW Standard Deviation 48.1 fL (36.4-46.3); Red Blood Count 3.96 M/uL (4.2-5.4); White Blood Count 11.72 K/uL (4.8-10.8)
[2020-01-06 10:48] LABS: Partial Thromboplastin Ratio 0.9; Partial Thromboplastin Time 23.9 Seconds (21.0-31.0); Prothrombin Time 10.9 Seconds (9.0-12.0)
--- NOTE | 2020-01-06 10:55 | XRay Report ---
XR chest 1V portable HISTORY: 59 years-old Female Dyspnea acute shortness of breath COMPARISON: Chest radiograph 06/15/2019, CTA chest 02/04/2019. TECHNIQUE: AP view of the chest FINDINGS: Cardiac silhouette is enlarged, unchanged. Stable positioning of the right IJ [id number] catheter. The patient is side bent and rotated. No pneumothorax or large pleural effusion. Chronic left greate r than right reticular opacities are redemonstrated, mildly progressed. Degenerative changes of the s houlders and spine. Posterior interbody nina and screw fusion hardware of the midthoracic spine. Heale d remote right-sided rib fractures. IMPRESSION: 1. Chronic interstitial lung disease redemonstrated. 2. Cardiomegaly with progressively worsened bilateral reticular opacities, possibly reflective of sup erimposed mild pulmonary edema or pneumonitis. ACT 112: Negative or not required by law. The above report was generated using voice recognition software. It may contain grammatical, syntax o r spelling errors. Electronically signed by: Jeanmarie Sharp M.D. 01/06/2020 10:54 AM
[2020-01-06 10:57] LABS: Acetaminophen < 2 ug/ml (10-30); Salicylate < 1.7 mg/dl (2.8-20)
[2020-01-06 10:58] LABS: Alanine Aminotransferase 21 U/L (12-78); Albumin Level 3.3 gm/dl (3.4-5.0); Aspartate Aminotransferase 16 U/L (15-37); BUN Creatinine Ratio 22.5 (10-20); Blood Urea Nitrogen 18 mg/dl (7-18); Calcium 9.2 mg/dl (8.5-10.1); Carbon Dioxide 29 mmol/L (21-32); Chloride 104 mmol/L (98-107); Est GFR (African American) 91.5; Est GFR (Non-African American) 78.9; Glucose 116 mg/dl (70-99); Potassium 4.4 mmol/L (3.5-5.1); Sodium 137 mmol/L (136-145)
[2020-01-06 11:03] LABS: Albumin Globulin Ratio 0.7 (0.9-2); Alkaline Phosphatase 45 U/L (45-117); Bilirubin,Total 0.3 mg/dl (0.2-1); Globulin 4.7 gm/dl (2.5-4.0); Troponin I < 0.015 ng/ml (0-0.045)
[2020-01-06 11:45] LABS: Appearance Urine Clear (Clear); Bacteria Urine Automated Negative (Negative); Bilirubin Urine Negative (Negative); Blood Urine Trace (Negative); Cast Urine Automated 0 /lpf (0-5); Color Urine Yellow; Epithelial Cell Urine Auto 20-30 /lpf (0-5); Glucose Urine UA Negative (Negative); Ketones Urine Negative (Negative); Leukocyte Esterase Urine 1+ (Negative); Nitrite Urine Negative (Negative); Protein Urine Negative (Negative); Specific Gravity Urine 1.008 (1.000-1.030); Urobilinogen Urine Negative (Negative); pH Urine 6.5 (4.5-7.5)
--- NOTE | 2020-01-06 11:57 | Electrocardiogram Report ---
Test Reason : Blood Pressure : / mmHG Vent. Rate : 075 BPM Atrial Rate : 075 BPM P-R Int : 182 ms QRS Dur : 094 ms QT Int : 374 ms P-R-T Axes : 054 041 037 degrees QTc Int : 417 ms Poor data quality, interpretation may be adversely affected Normal sinus rhythm Normal ECG When compared with ECG of 15-NOV-2019 08:01, Vent. rate has decreased BY 49 BPM Confirmed by Jorge العلي ([id number]) on 01/06/2020 11:56:49 AM Referred By: ER Confirmed By:Jorge العلي
[2020-01-06] MEDS ORDERED: DOXYCYCLINE HYCLATE 100 MG CAP PO STA (12:11)
[2020-01-06 12:30] LABS: Amphetamines+Metham, Urine Neg (Neg); Barbiturates, Urine Neg (Neg); Benzodiazepine, Urine Neg (Neg); Cocaine, Urine Neg (Neg); MDMA (Ecstacy), Urine Neg (Neg); Methadone, Urine Neg (Neg); Opiate, Urine Neg (Neg); Phencyclidine, Urine Neg (Neg)
[2020-01-06] MEDS ORDERED: ALBUT/IPRATROP 3MG/0.5MG NEB 3 ML VIAL NEB ONE (14:40)
--- NOTE | 2020-01-06 17:05 | History & Physical Report ---
Date of Service January 06, 2020 Assessment & Plan (1) Acute and chronic respiratory failure with hypoxia: (2) Acute exacerbation of chronic obstructive pulmonary disease (COPD): (3) Pulmonary fibrosis: Present on admission with worsening SOB CXR showed cardiomegaly with progressively worsened bilateral reticular opacities, possibly reflective of superimposed mild pulmonary edema or pneumonitis. Received on admission with IV steroid and doxycycline COVID 19 negative Will continue IV steroid with solumedrol 40mg IV BID and Doxycycline BID PO Will consult pulmonology Will check blood and sputum Continue oxygen supplement Continue BIPAP prn Diabetes mellitus type 2, controlled: Last HbA1C:6.2 Monitor BGs while on IV steroids Continue ISS Schizophrenia: Continue home meds. Monitor for steroid-related psychosis. Continue Clozapine Depression Schizoaffective disorder Will consult psych Currently denies any suicidal ideation Continue Trintellix Hepatitis C Continue glecaprevir / pibrenstasvir (Pt family will bring it) CODE STATUS Do not resuscitate status: Disposition Will discharge once medical stable History of Present Illness Chief Complaint: Worsening SOB Primary Care Provider: Naveed Adam MD 59 years old female with past medical history of type 2 diabetes, esophageal dysmotility, GERD, CKD stage III, osteoporosis, depression, schizoaffective disorders, tobacco abuse, chronic hypoxic respiratory failure due to underlying COPD + pulmonary fibrosis on 4-8 L [place] oxygen presented to the ER with worsening shortness of breath. Patient said since discharge from the hospital back in October she continued to have worsening shortness of breath. She said that she developed shortness of breath with minimal exertion. She said sometime just sitting or laying down she has shortness of breath. She has been on supplemental oxygen since diagnosed with COVID 19. She said that she has been having productive cough with yellowish sputum. Pt said that she had suicidal thought due to her health condition becausde sometimes she had very hard time to breath. Currently denies any chest pain, palpitation, dizziness, fever and chills. Allergies Allergy/AdvReac Type Severity Reaction Status Date / Time hydroxyzine Allergy Unknown UNKNOWN Verified 01/06/20 12:17 fluphenazine AdvReac Intermediate confusion Verified 01/06/20 12:17 haloperidol AdvReac Intermediate "MAKES ME Verified 01/06/20 12:17 GO INTO BLACKOUT" hydrocodone AdvReac Intermediate DROWSY Verified 01/06/20 12:17 molindone AdvReac Intermediate PT FEELS Verified 01/06/20 12:17 LIKE SHES "JUMPING OUT OF HER SKIN" morphine AdvReac Intermediate DROWSY Verified 01/06/20 12:17 lithium AdvReac Mild "LEVEL CAN Verified 01/06/20 12:17 GET TOO HIGH" benzonatate AdvReac Unknown Patient Unverified 01/06/20 12:17 [From Adryan Small] states contraindication with other pulmonary meds Home Medications Home Medications Medication Instructions Recorded Confirmed Type albuterol sulfate [Ventolin HFA] 2 puff INHALATION Q6H PRN 12/27/17 01/06/20 History calcitonin ([place]) 1 spray INTRANASAL QAM 12/27/17 01/06/20 History fenofibrate nanocrystallized 48 mg PO QAM 12/27/17 01/06/20 History [Tricor] ferrous sulfate [FerrouSul] 325 mg PO BIDM 12/27/17 01/06/20 History folic acid 1 mg PO QAM 12/27/17 01/06/20 History montelukast [Singulair] 10 mg PO HS 12/27/17 01/06/20 History pantoprazole [Protonix] 40 mg PO BIDM 02/18/18 01/06/20 History magnesium hydroxide [Milk of 30 ml PO HS PRN 03/02/18 01/06/20 History Magnesia] albuterol sulfate 2.5 mg INHALATION TID PRN 07/29/18 01/06/20 History calcium-vitamin D3-vitamin K 1 tab PO BIDM 07/30/18 01/06/20 History tramadol 50 mg PO Q6 PRN 08/20/18 01/06/20 History Januvia 100 mg PO QAM 11/21/18 01/06/20 History acetaminophen [Tylenol Extra 1,000 mg PO TID PRN MDD 2 GR/24 11/21/18 01/06/20 History Strength] HOURS clozapine [Clozaril] 100 mg PO BIDM 11/21/18 01/06/20 History diclofenac sodium [Voltaren] 2 g TOPICAL QID PRN 11/21/18 01/06/20 History docusate sodium 100 mg PO AMHS 11/21/18 01/06/20 History fluticasone propionate [Flonase 2 spray INTRANASAL QAM 11/21/18 01/06/20 History Allergy Relief] metoprolol tartrate 12.5 mg PO AMHS 11/21/18 01/06/20 History Mucinex 1,200 mg PO AMHS 02/14/19 01/06/20 History cyclobenzaprine 5 mg PO BID PRN 02/14/19 01/06/20 History Trintellix 20 mg PO QAM 03/12/19 01/06/20 History Arnuity Ellipta 1 inh INHALATION QAM 04/12/19 01/06/20 History clotrimazole-betamethasone 1 applic TOPICAL BID 04/12/19 01/06/20 History multivitamin with minerals 1 tab PO QAM 04/12/19 01/06/20 History Rexulti 4 mg PO QAM 10/05/19 01/06/20 History Trelegy Ellipta 1 inh INHALATION QAM 10/05/19 01/06/20 History celecoxib [Celebrex] 100 mg PO BIDM 10/05/19 01/06/20 History famotidine 20 mg PO AMHS 10/05/19 01/06/20 History ketoconazole 1 applic TOPICAL TID 10/05/19 01/06/20 History loratadine 10 mg PO QDD 10/05/19 01/06/20 History melatonin 5 mg PO HS PRN 10/05/19 01/06/20 History promethazine 6.25 mg PO QID PRN 10/05/19 01/06/20 History sodium chloride [Deep Sea Nasal] 2 spray INTRANASAL TID PRN 10/05/19 01/06/20 History terbinafine HCl 1 applic TOPICAL DIRECTED PRN 10/05/19 01/06/20 History clonazepam See Rx Instructions .ROUTE .COMPLEX 11/15/19 01/06/20 History furosemide [Lasix] 20 mg PO DAILY PRN 11/18/19 01/06/20 History budesonide 1 mg INHALATION BID 01/06/20 01/06/20 History prednisone 15 mg PO DAILY 01/06/20 01/06/20 History Past Med/Surg History Medical History (Updated 01/06/20 @ 18:15 by Arvind Duong MD) Chronic back pain Chronic pain history of excessive sedation on narcotics no narcotics except for acute / severe pain Chronic respiratory failure with hypoxia, on home O2 therapy COPD (chronic obstructive pulmonary disease) Diabetes mellitus type 2, controlled Do not resuscitate status Discussed with pt + sister 11/14. No CPR. Temporary intubation / mechanical vent OK. DVT (deep venous thrombosis) right leg--no blood thinners GERD (gastroesophageal reflux disease) Hepatitis C History of anesthesia reaction did not receive enough anesthesia during a colonoscopy and felt everything Orthostatic hypotension Osteoarthritis Pulmonary fibrosis Schizophrenia Spinal stenosis Surgical History History of open reduction and internal fixation (ORIF) procedure left femur--rods in place History of thoracic spinal fusion fusion and decompression t6-t12 History of tooth extraction all teeth removed History of total abdominal hysterectomy and bilateral salpingo-oophorectomy History of vascular access device Aport on right side Family History Grandmother (Paternal) Family hx of colon cancer Social History Smoking Status: Former smoker Tobacco Type: Cigarettes Second Hand Exposure: No; Do You Dip or Chew Tobacco: No; Tobacco Cessation Education Requested by Patient: No Hx Alcohol Use: No Hx Substance Use: Yes Last Used Substance: Unknown Substance Use Type Other:: No longer Preferred Language: [place] Communication Ability: Effective Visual Impairment: No Limitations Flat Screen Worker Required: No Beliefs That Will Affect Care: None marital status: Single Current Living Situation: Family Current Living Situation Comment: Pt. lives with mother and sister. Other Information That Helps Us Care for You: No Feels Safe at Home: Yes Safety Concerns: Feels Safe At This Time Assistive Devices: Oxygen - at Night, Oxygen - Continuous, Walker and Wheelchair Review of Systems Review of Systems: All systems reviewed & are unremarkable except as noted in HPI & below Physical Exam Physical Exam: General- No acute distress Head- atraumatic Eyes- PERRL, EOMI, ENT- oropharynx clear Neck- supple, no JVD Lungs- clear to auscultation Heart- +tachycardia, +wheezing Abdomen- normal bowel sounds, soft, nontender Extremities- no calf tenderness Neuro- alert, oriented x 3; PERRL, EOMI; no facial palsy; no dysarthria Skin- warm & dry Results & Data Results & Data ([facility]) Vital Signs (Past 12 Hours) Vital Signs Temp Pulse Pulse Resp BP BP Pulse Ox 01/06/20 16:30 126 H 26 H 118/85 96 01/06/20 16:07 126 H 27 H 124/82 98 01/06/20 15:30 135 H 35 H 138/98 93 01/06/20 15:11 117 H 29 H 136/80 98 01/06/20 14:56 110 H 23 98 01/06/20 14:35 112 H 26 H 152/116 H 100 01/06/20 13:00 97 H 20 137/96 94 01/06/20 11:35 87 22 129/89 98 01/06/20 10:33 75 20 138/98 100 01/06/20 10:24 96 01/06/20 10:19 96 01/06/20 09:33 36.9 C 93 H 24 136/106 H 93 Diagnostic Findings XR chest 1V portable HISTORY: 59 years-old Female Dyspnea acute shortness of breath COMPARISON: Chest radiograph 06/15/2019, CTA chest 02/04/2019. TECHNIQUE: AP view of the chest FINDINGS: Cardiac silhouette is enlarged, unchanged. Stable positioning of the right IJ Evfebv-c-Fgjw catheter. The patient is side bent and rotated. No pneumothorax or large pleural effusion. Chronic left greater than right reticular opacities are redemonstrated, mildly progressed. Degenerative changes of the shoulders and spine. Posterior interbody nina and screw fusion hardware of the midthoracic spine. Healed remote right-sided rib fractures. IMPRESSION: 1. Chronic interstitial lung disease redemonstrated. 2. Cardiomegaly with progressively worsened bilateral reticular opacities, possibly reflective of superimposed mild pulmonary edema or pneumonitis. ACT 112: Negative or not required by law. The above report was generated using voice recognition software. It may contain grammatical, syntax or spelling errors. Electronically signed by: Jeanmarie Sharp M.D. 01/06/2020 10:54 AM Dictated: 01/06/201049Transcribed: 01/06/201049
[2020-01-06] MEDS ORDERED: GLECAPREVIR PIBRENTASVIR PO SCH (19:00)
[2020-01-06] MEDS: GLECAPREVIR PO SCH (19:17)
[2020-01-06] MEDS: PIBRENTASVIR PO SCH (19:17)
[2020-01-06] MEDS ORDERED: GLUCAGON FOR INJ 1 MG VIAL SQ PRN (20:54)
[2020-01-06] MEDS ORDERED: GLUCOSE 40% GEL 15 GM TUBE PO PRN (20:54)
[2020-01-06] MEDS ORDERED: CARBOHYDRATES FOR HYPOGLYCEMIA PO PRN (20:54)
[2020-01-06] MEDS ORDERED: DEXTROSE 50% 50 ML SYRINGE IV PRN (20:54)
[2020-01-06] MEDS ORDERED: PROMETHAZINE HCL 12.5 MG/10 ML UDP PO PRN (20:54)
[2020-01-06] MEDS ORDERED: MAGNESIUM HYDROXIDE SUSP 30 ML UDC PO PRN (20:54)
[2020-01-06] MEDS ORDERED: FUROSEMIDE 20 MG TAB PO PRN (20:54)
[2020-01-06] MEDS ORDERED: SODIUM CHLORIDE 0.65% NA SOLN 45 ML (OCEAN) PRN (20:54)
[2020-01-06] MEDS ORDERED: GLUCOSE 10 TABS/TUBE PO PRN (20:54)
[2020-01-06] MEDS: CELECOXIB 100 MG CAP PO SCH (21:57)
[2020-01-06] MEDS: cloZAPine 100 MG TAB PO SCH (21:58)
[2020-01-06] MEDS: LORATADINE 10 MG TAB PO SCH (21:58)
[2020-01-06] MEDS: DOCUSATE SODIUM 100 MG CAP PO SCH (21:58)
[2020-01-06] MEDS: PANTOprazole 40 MG TAB PO SCH (21:58)
[2020-01-06] MEDS: CLOTRIMAZOLE/BETAMETHASONE CR 15 GM TUBE EXT SCH (21:59)
[2020-01-06] MEDS: METOPROLOL TARTRATE 25 MG TAB PO SCH (21:59)
[2020-01-06] MEDS: guaiFENesin 600 MG TABCR PO SCH (22:00)
[2020-01-06] MEDS: KETOCONAZOLE 2% CR 15 GM TUBE EXT SCH (22:00)
[2020-01-06] MEDS: FAMOTIDINE 20 MG TAB PO SCH (22:01)
[2020-01-06] MEDS: MONTELUKAST SODIUM 10 MG TABLET PO SCH (22:02)
[2020-01-06] MEDS: DOXYCYCLINE HYCLATE 100 MG CAP PO SCH (22:02)
[2020-01-06] MEDS: methylPREDNISolone 40 MG in SYRINGE 0 ML IV SCH (22:02)
[2020-01-06] MEDS: CYCLOBENZAPRINE HCL 5 MG TAB PO PRN (22:26)
[2020-01-06] MEDS: INSULIN ASPART 100 UNITS/ML 3 ML PEN SC SCH (22:26)
[2020-01-06] MEDS: ACETAMINOPHEN 500 MG TAB PO PRN (22:28)
[2020-01-07] MEDS ORDERED: TRINTELLIX~ORDER AWAITING ACTION SCH
[2020-01-07] MEDS: traMADol HCL 50 MG TABLET PO PRN ×4 (00:27→23:38)
[2020-01-07] MEDS: LEVALBUTEROL 1.25MG/0.5ML NEB NEB SCH ×4 (00:35→19:24)
[2020-01-07] MEDS: BUDESONIDE 0.5 MG/2 ML VIAL (PULMICORT) INH SCH ×2 (07:27→19:24)
[2020-01-07] MEDS: INSULIN ASPART 100 UNITS/ML 3 ML PEN SC SCH ×4 (08:09→20:52)
[2020-01-07] MEDS: CELECOXIB 100 MG CAP PO SCH ×2 (08:10→16:50)
[2020-01-07] MEDS: CEROVITE ADV FORMULA TAB PO SCH (08:10)
[2020-01-07] MEDS: FOLIC ACID 1 MG TAB PO SCH (08:10)
[2020-01-07] MEDS: FENOFIBRATE NANOCRYSTALLIZED 48 MG TABLET PO SCH (08:10)
[2020-01-07] MEDS: FAMOTIDINE 20 MG TAB PO SCH ×2 (08:10→20:43)
[2020-01-07] MEDS: HEPARIN 100 UNIT/ML 5ML FLUSH FLUSH PRN ×2 (08:10→15:06)
[2020-01-07] MEDS: DOCUSATE SODIUM 100 MG CAP PO SCH ×2 (08:10→20:44)
[2020-01-07] MEDS: guaiFENesin 600 MG TABCR PO SCH ×2 (08:10→20:43)
[2020-01-07] MEDS: methylPREDNISolone 40 MG in SYRINGE 0 ML IV SCH (08:10)
[2020-01-07] MEDS: cloZAPine 100 MG TAB PO SCH ×2 (08:11→16:51)
[2020-01-07] MEDS: CALCIUM 600MG + VIT D 400 IU TAB PO SCH ×2 (08:11→16:51)
[2020-01-07] MEDS: FLUTICASONE FUROATE 100MCG 14 PUFFS/INHALER INH SCH (08:11)
[2020-01-07] MEDS: CLOTRIMAZOLE/BETAMETHASONE CR 15 GM TUBE EXT SCH ×2 (08:11→20:46)
[2020-01-07] MEDS: KETOCONAZOLE 2% CR 15 GM TUBE EXT SCH ×3 (08:11→20:46)
[2020-01-07] MEDS: DOXYCYCLINE HYCLATE 100 MG CAP PO SCH ×2 (08:11→20:44)
[2020-01-07] MEDS: FERROUS SULFATE 325 MG TAB PO SCH ×2 (08:11→16:52)
[2020-01-07] MEDS: PANTOprazole 40 MG TAB PO SCH ×2 (08:11→16:52)
[2020-01-07] MEDS: UMECLIDINIUM/VILANTEROL 62.5/25MCG 7 PUFFS/INHALER INH SCH (08:11)
[2020-01-07] MEDS: CALCITONIN SALMON NA 200 IU/AC 3.7 ML BTL SCH (08:12)
[2020-01-07] MEDS: BREXPIPRAZOLE PO SCH (08:12)
[2020-01-07] MEDS: METOPROLOL TARTRATE 25 MG TAB PO SCH ×2 (08:12→20:42)
[2020-01-07] MEDS: FLUTICASONE PROPIONATE NA SPR 16 GM BTL SCH (08:12)
[2020-01-07] MEDS: VORTIOXETINE HYDROBROMIDE PO SCH (08:13)
[2020-01-07] MEDS ORDERED: FLUTICASONE FUROATE 100MCG 14 PUFFS/INHALER INH SCH (09:00)
[2020-01-07] MEDS ORDERED: VORTIOXETINE HYDROBROMIDE PO SCH (09:00)
[2020-01-07] MEDS: CYCLOBENZAPRINE HCL 5 MG TAB PO PRN (12:07)
[2020-01-07] MEDS: ACETAMINOPHEN 500 MG TAB PO PRN ×2 (12:08→20:00)
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
--- NOTE | 2020-01-07 14:25 | Pulmonary Consultation ---
Date of Consultation January 07, 2020 Assessment & Plan (1) Acute and chronic respiratory failure with hypoxia: The etiology of her underlying interstitial lung disease is unclear. She does note that she was followed by a physical laboratory assistant and a match maker at [facility]. I would recommend follow-up with both of these physicians. Her previous pulmonary function testing suggested severe restrictive lung disease. She certainly may have fibrotic NSIP, chronic fibrosing HP, rheumatoid arthritis associated interstitial lung disease, scleroderma and/or any other myriad of possible mixed connective tissue disorder associated interstitial lung diseases. If this was not worked up further, I would recommend an outpatient work-up to establish a potential underlying etiology as it may help dictate future care and immunosuppression. I would recommend weaning her down to the lowest effective dose of prednisone given her underlying arthritis, spine issues and psychiatric disorders. Continue noninvasive ventilation at at all times during sleep and as a form of rescue therapy for symptomatic shortness of breath during the day. Recommend transitioning her to 30 mg of p.o. prednisone tomorrow then tapering over the course of 7 days back to her home dose. I will check an ESR, CRP and procalcitonin level. She is currently on doxycycline. This can be continued for a total 5 days. She is theoretically at risk for opportunistic infections such as PJP. I think given how stable she looks and given the fact that she is normally on less than 20 mg of prednisone, the risk of fungal infection is still present, but seems less likely at this point. Given her underlying psychiatric issues and chronic hypoxemic issues, I do not think she would be a good candidate for bronchoscopic evaluation and I think the yield will be low regardless. She would likely be a very poor candidate for lung transplantation in the future as well given her underlying obesity and psychiatric issues. This could be discussed further by her outpatient match maker. Weight loss and exercise are certainly advisable, but understandably would be limited given her spinal stenosis and the antipsychotics and prednisone that she is currently on which can certainly cause weight gain. (2) Pulmonary fibrosis: (3) Chronic dyspnea: History of Present Illness Attending Physician: Naveed Bell MD History of Present Illness 59-year-old female with a past medical history of pulmonary fibrosis, anxiety, depression, history of suicidal ideation, hepatitis C, chronic re spiratory failure with baseline oxygen requirements of 4-8 L via nasal cannula, rheumatoid arthritis, osteoarthritis, schizophrenia who presented to the hospital due to increasing shortness of breath and cough. Patient notes that she had increasing shortness of breath with very minimal exertion and was unable to do any of her physical therapy. She describes that she has severe shortness of breath at baseline and does have a chronic cough. She also has chronic GERD that is controlled with Protonix 40 mg twice daily. She is chronically on prednisone 15 mg and has been on this medication for years. She notes that sometime ago she was seen by Dr. Hanks and told that she had likely osteoarthritis and rheumatoid arthritis. She has had surgery in her back previously. She has been seen by Dr. Pettit in the past as well who is a former match maker at [facility]. She has a noninvasive ventilator that she uses at home while sleeping and also during the day when she is having shortness of breath. She uses a nebulizer at home. She was recently in the hospital on 11/20/2019 due to an exacerbation of her ILD. She was in the emergency department in February as well. She currently denies any fevers or chills. She does have a mildly productive cough. 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 She never had any significant exposure to fumes or dust. She did have a male partner for 5 years who worked physical labor, but was not exposed to any significant chemicals. She denies any history of bird exposures, pools or hot tubs. I am not certain the extent of work-up she has had for her interstitial lung disease. She did have an LYN titer on 11/06/2017 which was negative. Rheumatoid factor on 11/06/2017 was less than 14. IgE level checked in 2013 which was negative. Pulmonary function testing from 03/22/2018 demonstrates an FEV1/FVC ratio of 87. FEV1 was 1.12 L which is 44% predicted. FVC was 1.29 L which is 39% predicted. No significant postbronchodilator response seen. Lung volumes were incomplete. DLCO was not performed. physiology. These findings suggest underlying restrictive physiology. Pulmonary function testing from 07/04/2016 demonstrated an FEV1/FVC ratio of 84. FEV1 of 1.39 L and FVC of 1.66 L. Lung volumes suggested TLC of 73% predicted which is 3.61 L and RV/TLC ratio 131% predicted. DLCO was 22% predicted with a correction of 46% predicted when corrected for alveolar volume. Echo completed on 08/21/2018 with evidence of normal EF of 55 to 59%. Right ventricular cavity size was enlarged. Right ventricular function was severely reduced. No estimation of pulmonary artery systolic pressure right ventricular systolic pressure was made. The pulmonary valve was not adequately visualized. CT chest in 2018 with bilateral reticular and groundglass opacities with traction bronchiectasis and pulmonary cystic changes involving the upper lobes and lower lobes. Most recent CT chest was a CTA on 02/04/2019 with chronic basilar interstitial bronchiectatic changes. She did have a rib fracture of her left 12th rib. Chest x-ray performed yesterday with chronic interstitial lung disease and cardiomegaly with progressively worsening bilateral reticular opacities. The patient notes that she follows with [facility]. When I reviewed [employer] data, I was unable to find any notes from [facility] pulmonary [facility]. I was able to identify pulmonary function testing and echo results as noted above. Allergies Allergy/AdvReac Type Severity Reaction Status Date / Time hydroxyzine Allergy Unknown UNKNOWN Verified 01/06/20 12:17 fluphenazine AdvReac Intermediate confusion Verified 01/06/20 12:17 haloperidol AdvReac Intermediate "MAKES ME Verified 01/06/20 12:17 GO INTO BLACKOUT" hydrocodone AdvReac Intermediate DROWSY Verified 01/06/20 12:17 molindone AdvReac Intermediate PT FEELS Verified 01/06/20 12:17 LIKE SHES "JUMPING OUT OF HER SKIN" morphine AdvReac Intermediate DROWSY Verified 01/06/20 12:17 lithium AdvReac Mild "LEVEL CAN Verified 01/06/20 12:17 GET TOO HIGH" benzonatate AdvReac Unknown Patient Unverified 01/06/20 12:17 [From Adryan Small] states contraindication with other pulmonary meds Home Medications Home Medications Medication Instructions Recorded Confirmed Type albuterol sulfate [Ventolin HFA] 2 puff INHALATION Q6H PRN 12/27/17 01/06/20 History calcitonin (salmon) 1 spray INTRANASAL QAM 12/27/17 01/06/20 History fenofibrate nanocrystallized 48 mg PO QAM 12/27/17 01/06/20 History [Tricor] ferrous sulfate [FerrouSul] 325 mg PO BIDM 12/27/17 01/06/20 History folic acid 1 mg PO QAM 12/27/17 01/06/20 History montelukast [Singulair] 10 mg PO HS 12/27/17 01/06/20 History pantoprazole [Protonix] 40 mg PO BIDM 02/18/18 01/06/20 History magnesium hydroxide [Milk of 30 ml PO HS PRN 03/02/18 01/06/20 History Magnesia] albuterol sulfate 2.5 mg INHALATION TID PRN 07/29/18 01/06/20 History calcium-vitamin D3-vitamin K 1 tab PO BIDM 07/30/18 01/06/20 History tramadol 50 mg PO Q6 PRN 08/20/18 01/06/20 History Januvia 100 mg PO QAM 11/21/18 01/06/20 History acetaminophen [Tylenol Extra 1,000 mg PO TID PRN MDD 2 11/21/18 01/06/20 History Strength] HOURS clozapine [Clozaril] 100 mg PO BIDM 11/21/18 01/06/20 History diclofenac sodium [Voltaren] 2 g TOPICAL QID PRN 11/21/18 01/06/20 History docusate sodium 100 mg PO AMHS 11/21/18 01/06/20 History fluticasone propionate [Flonase 2 spray INTRANASAL QAM 11/21/18 01/06/20 History Allergy Relief] metoprolol tartrate 12.5 mg PO AMHS 11/21/18 01/06/20 History Mucinex 1,200 mg PO AMHS 02/14/19 01/06/20 History cyclobenzaprine 5 mg PO BID PRN 02/14/19 01/06/20 History Trintellix 20 mg PO QAM 03/12/19 01/06/20 History Arnuity Ellipta 1 inh INHALATION QAM 04/12/19 01/06/20 History clotrimazole-betamethasone 1 applic TOPICAL BID 04/12/19 01/06/20 History multivitamin with minerals 1 tab PO QAM 04/12/19 01/06/20 History Rexulti 4 mg PO QAM 10/05/19 01/06/20 History Trelegy Ellipta 1 inh INHALATION QAM 10/05/19 01/06/20 History celecoxib [Celebrex] 100 mg PO BIDM 10/05/19 01/06/20 History famotidine 20 mg PO AMHS 10/05/19 01/06/20 History ketoconazole 1 applic TOPICAL TID 10/05/19 01/06/20 History loratadine 10 mg PO QDD 10/05/19 01/06/20 History melatonin 5 mg PO HS PRN 10/05/19 01/06/20 History promethazine 6.25 mg PO QID PRN 10/05/19 01/06/20 History sodium chloride [Deep Sea Nasal] 2 spray INTRANASAL TID PRN 10/05/19 01/06/20 History terbinafine HCl 1 applic TOPICAL DIRECTED PRN 10/05/19 01/06/20 History clonazepam See Rx Instructions .ROUTE .COMPLEX 11/15/19 01/06/20 History furosemide [Lasix] 20 mg PO DAILY PRN 11/18/19 01/06/20 History budesonide 1 mg INHALATION BID 01/06/20 01/06/20 History glecaprevir-pibrentasvir [Mavyret] 1 tab PO DAILY 01/06/20 01/06/20 History prednisone 15 mg PO DAILY 01/06/20 01/06/20 History Patient History Medical History (Updated 01/07/20 @ 14:38 by Marco A Moreland MD) Chronic back pain Chronic dyspnea Chronic pain history of excessive sedation on narcotics no narcotics except for acute / severe pain Chronic respiratory failure with hypoxia, on home O2 therapy COPD (chronic obstructive pulmonary disease) Diabetes mellitus type 2, controlled Do not resuscitate status Discussed with pt + sister 11/14. No CPR. Temporary intubation / mechanical vent OK. DVT (deep venous thrombosis) right leg--no blood thinners GERD (gastroesophageal reflux disease) Hepatitis C History of anesthesia reaction did not receive enough anesthesia during a colonoscopy and felt everything Orthostatic hypotension Osteoarthritis Pulmonary fibrosis Schizophrenia Spinal stenosis Surgical History History of open reduction and internal fixation (ORIF) procedure left femur--rods in place History of thoracic spinal fusion fusion and decompression t6-t12 History of tooth extraction all teeth removed History of total abdominal hysterectomy and bilateral salpingo-oophorectomy History of vascular access device Aport on right side Family History Grandmother (Paternal) Family hx of colon cancer Social History Smoking Status: Former smoker Tobacco Type: Cigarettes Second Hand Exposure: No; Do You Dip or Chew Tobacco: No; Tobacco Cessation Education Requested by Patient: No Hx Alcohol Use: No Hx Substance Use: Yes Last Used Substance: Unknown Substance Use Type Other:: No longer Preferred Language: Andorran Communication Ability: Effective Visual Impairment: No Limitations Whipped Topping Mixer Required: No Beliefs That Will Affect Care: None marital status: Single Current Living Situation: Family Current Living Situation Comment: Pt. lives with mother and sister. Other Information That Helps Us Care for You: No Feels Safe at Home: Yes Safety Concerns: Feels Safe At This Time Assistive Devices: Walker Review of Systems Review of Systems: All systems reviewed & are unremarkable except as noted in HPI & below Physical Exam Constitutional: Chronically ill-appearing female in no apparent distress. She has an oxygen mask in place. Eyes: PERRL, conjunctivae normal, anicteric sclerae ENMT: Ears: + hearing impairment Mallampati Class: II Neck: normal visual inspection Respiratory: Diffuse fine Velcro crackles noted bilaterally. Some mild wh eezing in the left lung. Cardiovascular: RRR, no murmur, no edema Gastrointestinal (Abdomen): normal bowel sounds, soft, nontender, no hepatosplenomegaly Musculoskeletal: Severe kyphosis noted. Previous healing scars noted on her spine. Skin: There does appear to be a macular rash on the right posterior aspect and it appears to be dermatomal. Neurologic: PERRL, EOMI, accommodation nl, no face palsy, no dysarthria Psychiatric: A+Ox3, euthymic affect Results & Data Results & Data ([facility]) Vital Signs (Past 12 Hours) Vital Signs Temp Pulse Resp BP Pulse Ox 01/07/20 13:28 84 18 99 01/07/20 11:21 98.6 F 84 20 136/85 98 01/07/20 07:32 96.8 F L 93 H 20 127/84 93 01/07/20 07:30 89 22 93 01/07/20 03:18 97.7 F 76 16 140/91 91 Laboratory Results Reviewed Diagnostic Findings Previous chest imaging personally reviewed Chemistry Results CMP Results: Na 137 mmol/L (136-145) 01/06/20 K 4.4 mmol/L (3.5-5.1) 01/06/20 Cl 104 mmol/L (98-107) 01/06/20 CO2 29 mmol/L (21-32) 01/06/20 Anion Gap 4.0 (3-11) 01/06/20 BUN 18 mg/dl (7-18) 01/06/20 Creatinine 0.81 mg/dl (0.6-1.2) 01/06/20 Estimated GFR ( Amer) 91.5 01/06/20 Estimated GFR (Non-Af Amer) 78.9 01/06/20 BUN/Creatinine Ratio 22.5 (10-20) H 01/06/20 Glu 116 mg/dl (70-99) H 01/06/20 Ca 9.2 mg/dl (8.5-10.1) 01/06/20 Phosphorus Level 4.2 mg/dl (2.5-4.9) 05/03/19 Total Bilirubin 0.3 mg/dl (0.2-1) 01/06/20 Direct Bilirubin 0.2 mg/dl (0-0.2) 12/26/19 AST 16 U/L (15-37) 01/06/20 ALT 21 U/L (12-78) 01/06/20 Alkaline Phosphatase 45 U/L (45-117) 01/06/20 TP 8.0 gm/dl (6.4-8.2) 01/06/20 Albumin 3.3 gm/dl (3.4-5.0) L 01/06/20 Globulin 4.7 gm/dl (2.5-4.0) H 01/06/20 Albumin/Globulin Ratio 0.7 (0.9-2) L 01/06/20 Results Reviewed Results Results reviewed with patient:: Radiology PG Care Time/CCT Total # of Minutes Spent Total Time Spent with Patient: Total time spent is greater than 50% in coordi nation of care (as documented) at patient's floor/unit and/or counseling patient: Coding Level of Care Code 23077 Inpt Consult Level 5 Diagnoses Acute and chronic respiratory failure with hypoxia J96.21 Pulmonary fibrosis J84.10 Chronic dyspnea R06.09 Time Spent (min) 70
[2020-01-07] MEDS: LORATADINE 10 MG TAB PO SCH (15:47)
[2020-01-07] MEDS ORDERED: clonazePAM 0.25 MG TAB PO ONE (16:06)
[2020-01-07] MEDS: GLECAPREVIR PO SCH (18:35)
[2020-01-07] MEDS: PIBRENTASVIR PO SCH (18:35)
[2020-01-07] MEDS ORDERED: GLECAPREVIR PO SCH (19:00)
[2020-01-07] MEDS ORDERED: PIBRENTASVIR PO SCH (19:00)
[2020-01-07] MEDS: clonazePAM 0.5 MG TAB PO SCH (20:42)
[2020-01-07] MEDS: MONTELUKAST SODIUM 10 MG TABLET PO SCH (20:45)
--- NOTE | 2020-01-07 21:02 | Hospitalist Progress Note ---
Date of Service January 07, 2020 Assessment & Plan (1) Acute and chronic respiratory failure with hypoxia: Chronic hypoxic respiratory failure. Underlying pulmonary fibrosis and COPD. Presented with cough and worsening dyspnea. Chest x-ray showed chronic interstitial changes. SARS-CoV-2 PCR negative. Seen by Pulmonary Medicine. Procalcitonin and C-reactive protein normal. Taper steroids as soon as able. Complete course of doxycycline. Continue supplemental O2 + BiPAP as needed. (2) Acute exacerbation of chronic obstructive pulmonary disease (COPD): As noted above. (3) Pulmonary fibrosis: As noted above. (4) GERD (gastroesophageal reflux disease): Continue famotidine and PPI. (5) Diabetes mellitus type 2, controlled: Watch blood sugars closely while on steroids. FBS today = 123. (6) Hepatitis C: Continue glecaprevir / pibrentasvir. (7) Depression: Management per Psychiatry. (8) Anxiety: Management per Psychiatry. (9) Schizophrenia: Management per Psychiatry. (10) DVT prophylaxis: SQ enoxaparin. Ambulate. (11) Discharge planning issues: Anticipated discharge to home with home health services. Family Medicine follow-up with Dr. Adam. Follow-up with Pulmonary Medicine. Admission and Anticipated Discharge Date Admission Date: January 06, 2020 Subjective Recheck for hypoxia, depression, and other problems. Patient seen in their room around 1550. Sister visiting. Admitted yesterday with worsening hypoxia. Also anxious and depressed. Feels better today. Wearing BiPAP. Cough improved. No fever. Review of Systems: Constitutional- as noted above. Cardiac- no chest pain. Pulmonary- as noted above. GI- no nausea, vomiting, diarrhea, melena, hematochezia. - chronic urinary incontinence. Otherwise, as noted above. Physical Exam Constitutional: no acute distress Eyes: sclerae not anicteric ENMT: wearing BiPAP Respiratory: Auscultation: + rales (scattered) Cardiovascular: Rate/Rhythm: regular rate and regular rhythm Vessels: no JVD Extremities: no calf tenderness and no edema Gastrointestinal (Abdomen): normal bowel sounds, soft, nontender, no hepa tosplenomegaly Musculoskeletal: Extremities: no cyanosis Skin: no rashes, warm and dry Psychiatric: Orientation: alert and oriented x 3 Mood: + anxious mood Results & Data Results & Data ([facility]) Vital Signs (Past 12 Hours) Vital Signs Temp Pulse Pulse Pulse Pulse Resp BP 01/07/20 19:26 92 H 18 01/07/20 19:17 36.5 C 97 H 20 148/94 H 01/07/20 16:34 96 H 01/07/20 14:50 36.7 C 96 H 22 114/73 01/07/20 13:28 84 18 01/07/20 11:21 37.0 C 84 20 136/85 Pulse Ox 01/07/20 19:26 99 01/07/20 19:17 93 01/07/20 16:34 01/07/20 14:50 97 01/07/20 13:28 99 01/07/20 11:21 98 Laboratory Results 01/06/20 10:22 01/06/20 10:22 (1) Schizophrenia Schizophrenia type: unspecified Qualified Code(s): F20.9 - Schizophrenia, unspecified
[2020-01-08] MEDS: LEVALBUTEROL 1.25MG/0.5ML NEB NEB SCH ×4 (00:25→20:38)
[2020-01-08] MEDS: HEPARIN 100 UNIT/ML 5ML FLUSH FLUSH PRN (06:40)
[2020-01-08] MEDS: BUDESONIDE 0.5 MG/2 ML VIAL (PULMICORT) INH SCH ×2 (07:34→20:34)
[2020-01-08] MEDS: ENOXAPARIN INJ 40 MG/0.4 ML SYR SQ SCH (08:20)
[2020-01-08] MEDS: PANTOprazole 40 MG TAB PO SCH ×2 (08:20→16:22)
[2020-01-08] MEDS: cloZAPine 100 MG TAB PO SCH ×2 (08:21→16:20)
[2020-01-08] MEDS: DOXYCYCLINE HYCLATE 100 MG CAP PO SCH ×2 (08:21→20:01)
[2020-01-08] MEDS: FAMOTIDINE 20 MG TAB PO SCH ×2 (08:21→20:00)
[2020-01-08] MEDS: CEROVITE ADV FORMULA TAB PO SCH (08:21)
[2020-01-08] MEDS: guaiFENesin 600 MG TABCR PO SCH ×2 (08:21→19:59)
[2020-01-08] MEDS: FERROUS SULFATE 325 MG TAB PO SCH ×2 (08:21→16:23)
[2020-01-08] MEDS: CELECOXIB 100 MG CAP PO SCH ×2 (08:21→16:20)
[2020-01-08] MEDS: DOCUSATE SODIUM 100 MG CAP PO SCH ×2 (08:21→19:56)
[2020-01-08] MEDS: FOLIC ACID 1 MG TAB PO SCH (08:21)
[2020-01-08] MEDS: CALCIUM 600MG + VIT D 400 IU TAB PO SCH ×2 (08:21→16:20)
[2020-01-08] MEDS: FENOFIBRATE NANOCRYSTALLIZED 48 MG TABLET PO SCH (08:21)
[2020-01-08] MEDS: VORTIOXETINE HYDROBROMIDE PO SCH (08:22)
[2020-01-08] MEDS: BREXPIPRAZOLE PO SCH (08:22)
[2020-01-08] MEDS: METOPROLOL TARTRATE 25 MG TAB PO SCH ×2 (08:22→19:57)
[2020-01-08] MEDS: UMECLIDINIUM/VILANTEROL 62.5/25MCG 7 PUFFS/INHALER INH SCH (08:23)
[2020-01-08] MEDS: CALCITONIN SALMON NA 200 IU/AC 3.7 ML BTL SCH (08:23)
[2020-01-08] MEDS: FLUTICASONE FUROATE 100MCG 14 PUFFS/INHALER INH SCH (08:23)
[2020-01-08] MEDS: FLUTICASONE PROPIONATE NA SPR 16 GM BTL SCH (08:23)
[2020-01-08] MEDS: CLOTRIMAZOLE/BETAMETHASONE CR 15 GM TUBE EXT SCH ×2 (08:24→19:59)
[2020-01-08] MEDS: KETOCONAZOLE 2% CR 15 GM TUBE EXT SCH ×3 (08:24→20:00)
[2020-01-08] MEDS: INSULIN ASPART 100 UNITS/ML 3 ML PEN SC SCH ×4 (08:50→20:31)
[2020-01-08] MEDS: traMADol HCL 50 MG TABLET PO PRN ×3 (08:59→20:24)
[2020-01-08] MEDS ORDERED: predniSONE 20 MG TAB PO SCH (09:00)
[2020-01-08] MEDS: predniSONE 10 MG TABLET PO SCH (09:00)
[2020-01-08] MEDS: DICLOFENAC SOD 1% GEL 100 GM TUBE EXT PRN (09:01)
[2020-01-08] MEDS ORDERED: clonazePAM 0.25 MG TAB PO ONE (11:54)
[2020-01-08] MEDS: busPIRone 15 MG TAB PO SCH ×2 (13:40→19:55)
[2020-01-08] MEDS: clonazePAM 0.25 MG TAB PO SCH (16:20)
[2020-01-08] MEDS: LORATADINE 10 MG TAB PO SCH (16:21)
[2020-01-08] MEDS: PIBRENTASVIR PO SCH (19:02)
[2020-01-08] MEDS: GLECAPREVIR PO SCH (19:02)
[2020-01-08] MEDS: clonazePAM 0.5 MG TAB PO SCH (19:56)
[2020-01-08] MEDS: MONTELUKAST SODIUM 10 MG TABLET PO SCH (20:01)
--- NOTE | 2020-01-08 20:26 | Hospitalist Progress Note ---
Date of Service January 08, 2020 Assessment & Plan (1) Acute and chronic respiratory failure with hypoxia: Chronic hypoxic respiratory failure. Underlying pulmonary fibrosis and COPD. Presented with cough and worsening dyspnea. Chest x-ray showed chronic interstitial changes. SARS-CoV-2 PCR negative. Seen by Pulmonary Medicine. Procalcitonin and C-reactive protein normal. Sputum culture pending. Possible superimposed pulmonary edema on chest x-ray, but pro-BNP normal. Taper steroids as soon as able. Complete course of doxycycline. Continue supplemental O2 + BiPAP as needed. (2) Acute exacerbation of chronic obstructive pulmonary disease (COPD): As noted above. (3) Pulmonary fibrosis: As noted above. (4) GERD (gastroesophageal reflux disease): Continue famotidine and PPI. (5) Diabetes mellitus type 2, controlled: Watch blood sugars closely while on steroids. FBS today = 105. (6) Hepatitis C: Continue glecaprevir / pibrentasvir. (7) Depression: Management per Psychiatry. (8) Anxiety: Management per Psychiatry. (9) Schizophrenia: Management per Psychiatry. (10) DVT prophylaxis: SQ enoxaparin. Ambulate. (11) Discharge planning issues: Anticipated discharge to home with home health services. Family Medicine follow-up with Dr. Adam. Follow-up with Pulmonary Medicine. Admission and Anticipated Discharge Date Admission Date: January 06, 2020 Subjective Recheck for hypoxia, depression, and other problems. Patient seen in their room around 1650. Feels better today. Less SOB. Persistent cough, productive of green sputum. No fever. Review of Systems: Constitutional- as noted above. Cardiac- no chest pain. Pulmonary- as noted above. GI- no nausea, vomiting, diarrhea, melena, hematochezia. - chronic urinary incontinence. Otherwise, as noted above. Physical Exam Constitutional: no acute distress Eyes: sclerae not anicteric Respiratory: Auscultation: + rales (scattered) Cardiovascular: Rate/Rhythm: regular rate and regular rhythm Vessels: no JVD Extremities: no calf tenderness and no edema Gastrointestinal (Abdomen): normal bowel sounds, soft, nontender, no hepatosplenomegaly Musculoskeletal: Extremities: no cyanosis Skin: no rashes, warm and dry Psychiatric: Orientation: alert and oriented x 3 Mood: + anxious mood Results & Data Results & Data ([facility]) Vital Signs (Past 12 Hours) Vital Signs Temp Pulse Resp BP BP Pulse Ox 11/12/20 19:23 36.7 C 118 H 22 112/57 L 93 01/08/20 15:00 36.4 C L 113 H 20 125/80 97 01/08/20 13:12 106 H 24 97 01/08/20 11:00 36.6 C 113 H 20 142/84 H 92 Laboratory Results 01/06/20 10:22 01/06/20 10:22 (1) Schizophrenia Schizophrenia type: unspecified Qualified Code(s): F20.9 - Schizophrenia, unspecified
[2020-01-09] MEDS: ACETAMINOPHEN 500 MG TAB PO PRN ×3 (00:51→20:47)
[2020-01-09] MEDS: LEVALBUTEROL 1.25MG/0.5ML NEB NEB SCH ×4 (00:59→19:31)
[2020-01-09] MEDS: KETOCONAZOLE 2% CR 15 GM TUBE EXT SCH ×3 (07:33→20:48)
[2020-01-09] MEDS: CEROVITE ADV FORMULA TAB PO SCH (07:33)
[2020-01-09] MEDS: FOLIC ACID 1 MG TAB PO SCH (07:33)
[2020-01-09] MEDS: CELECOXIB 100 MG CAP PO SCH ×2 (07:34→16:50)
[2020-01-09] MEDS: METOPROLOL TARTRATE 25 MG TAB PO SCH ×2 (07:34→20:47)
[2020-01-09] MEDS: CALCIUM 600MG + VIT D 400 IU TAB PO SCH ×2 (07:34→16:49)
[2020-01-09] MEDS: FENOFIBRATE NANOCRYSTALLIZED 48 MG TABLET PO SCH (07:34)
[2020-01-09] MEDS: PANTOprazole 40 MG TAB PO SCH ×2 (07:34→16:51)
[2020-01-09] MEDS: predniSONE 10 MG TABLET PO SCH (07:34)
[2020-01-09] MEDS: FAMOTIDINE 20 MG TAB PO SCH ×2 (07:35→20:45)
[2020-01-09] MEDS: guaiFENesin 600 MG TABCR PO SCH ×2 (07:35→20:46)
[2020-01-09] MEDS: cloZAPine 100 MG TAB PO SCH ×2 (07:35→16:50)
[2020-01-09] MEDS: DOCUSATE SODIUM 100 MG CAP PO SCH ×2 (07:35→20:46)
[2020-01-09] MEDS: busPIRone 15 MG TAB PO SCH ×2 (07:35→20:48)
[2020-01-09] MEDS: FLUTICASONE PROPIONATE NA SPR 16 GM BTL SCH (07:36)
[2020-01-09] MEDS: ENOXAPARIN INJ 40 MG/0.4 ML SYR SQ SCH (07:36)
[2020-01-09] MEDS: CALCITONIN SALMON NA 200 IU/AC 3.7 ML BTL SCH (07:36)
[2020-01-09] MEDS: VORTIOXETINE HYDROBROMIDE PO SCH (07:37)
[2020-01-09] MEDS: BREXPIPRAZOLE PO SCH (07:37)
[2020-01-09] MEDS: UMECLIDINIUM/VILANTEROL 62.5/25MCG 7 PUFFS/INHALER INH SCH (07:37)
[2020-01-09] MEDS: FLUTICASONE FUROATE 100MCG 14 PUFFS/INHALER INH SCH (07:37)
[2020-01-09] MEDS: DOXYCYCLINE HYCLATE 100 MG CAP PO SCH ×2 (07:38→20:48)
[2020-01-09] MEDS: CLOTRIMAZOLE/BETAMETHASONE CR 15 GM TUBE EXT SCH ×2 (07:38→20:45)
[2020-01-09] MEDS: FERROUS SULFATE 325 MG TAB PO SCH ×2 (07:38→16:51)
[2020-01-09] MEDS: BUDESONIDE 0.5 MG/2 ML VIAL (PULMICORT) INH SCH ×2 (07:45→19:31)
[2020-01-09] MEDS: clonazePAM 0.25 MG TAB PO SCH ×2 (08:01→16:48)
[2020-01-09] MEDS: INSULIN ASPART 100 UNITS/ML 3 ML PEN SC SCH ×5 (09:16→20:57)
[2020-01-09] MEDS: traMADol HCL 50 MG TABLET PO PRN ×3 (10:03→22:43)
[2020-01-09] MEDS: DICLOFENAC SOD 1% GEL 100 GM TUBE EXT PRN (12:51)
[2020-01-09] MEDS: LORATADINE 10 MG TAB PO SCH (16:49)
--- NOTE | 2020-01-09 17:16 | Hospitalist Progress Note ---
Date of Service January 09, 2020 Assessment & Plan (1) Acute and chronic respiratory failure with hypoxia: Chronic hypoxic respiratory failure. Underlying pulmonary fibrosis and COPD. Presented with cough and worsening dyspnea. Chest x-ray showed chronic interstitial changes. SARS-CoV-2 PCR negative. Seen by Pulmonary Medicine. Procalcitonin and C-reactive protein normal. Sputum culture pending. Possible superimposed pulmonary edema on chest x-ray, but pro-BNP normal. Taper steroids as soon as able. Complete course of doxycycline. Oxygenating well on 4 L NC. Continue supplemental O2 + BiPAP as needed. (2) Acute exacerbation of chronic obstructive pulmonary disease (COPD): As noted above. (3) Pulmonary fibrosis: As noted above. (4) GERD (gastroesophageal reflux disease): Continue famotidine and PPI. (5) Diabetes mellitus type 2, controlled: Watch blood sugars closely while on steroids. FBS today = 141. Insulin coverage as needed. (6) Hepatitis C: Continue glecaprevir / pibrentasvir. (7) Depression: Management per Psychiatry. (8) Anxiety: Management per Psychiatry. (9) Schizophrenia: Management per Psychiatry. (10) Asymptomatic bacteriuria: Urine culture growing Pseudomonas aeruginosa. No fever or dysuria. Chronic urinary incontinence. UA negative for nitrites, 1+ leukocyte esterase, 1-5 WBC's, many epithelial cells. Doubt UTI- colonization or contamination more likely. Antibiotic therapy not indicated. (11) DVT prophylaxis: SQ enoxaparin. Ambulate. (12) Discharge planning issues: Anticipated discharge to home with home health services. Family Medicine follow-up with Dr. Adam. Follow-up with Pulmonary Medicine. Admission and Anticipated Discharge Date Admission Date: January 06, 2020 Subjective Recheck for hypoxia, depression, and other problems. Patient seen in their room around 1340. Patient states that she feels less SOB. Persistent cough. No fever. Review of Systems: Constitutional- as noted above. Cardiac- no chest pain. Pulmonary- as noted above. GI- no nausea, vomiting, diarrhea, melena, hematochezia. - chronic urinary incontinence; no dysuria. Otherwise, as noted above. Physical Exam Constitutional: no acute distress Eyes: + anicteric sclerae Respiratory: Auscultation: + rales (scattered), + rhonchi and + wheezes Cardiovascular: Rate/Rhythm: regular rate and regular rhythm Vessels: no JVD Extremities: no calf tenderness and no edema Gastrointestinal (Abdomen): normal bowel sounds, soft, nontender, no hepatosplenomegaly Musculoskeletal: Extremities: no cyanosis Skin: no rashes, warm and dry Psychiatric: Orientation: alert and oriented x 3 Results & Data Results & Data ([facility]) Vital Signs (Past 12 Hours) Vital Signs Temp Pulse Resp BP Pulse Ox 01/09/20 15:01 36.6 C 97 H 18 148/87 H 94 01/09/20 13:11 87 20 97 01/09/20 10:58 36.3 C L 90 18 115/73 91 01/09/20 07:45 81 20 94 01/09/20 07:14 36.3 C L 84 18 120/84 93 Laboratory Results Laboratory Results - last 24 hr 01/08/20 01/09/20 01/09/20 19:51 09:14 11:43 POC Glucose 128 H 141 H 171 H 01/09/20 17:02 POC Glucose 175 H (1) Schizophrenia Schizophrenia type: unspecified Qualified Code(s): F20.9 - Schizophrenia, unspecified
[2020-01-09] MEDS: PIBRENTASVIR PO SCH (18:28)
[2020-01-09] MEDS: GLECAPREVIR PO SCH (18:28)
[2020-01-09] MEDS: clonazePAM 0.5 MG TAB PO SCH (20:44)
[2020-01-09] MEDS: MONTELUKAST SODIUM 10 MG TABLET PO SCH (20:48)
[2020-01-09] MEDS: INSULIN GLARGINE SOLOSTAR 100 UNITS/ML 3 ML PEN SC SCH (20:49)
[2020-01-09] MEDS: MELATONIN 3 MG TAB PO PRN (22:43)
[2020-01-10] MEDS: LEVALBUTEROL 1.25MG/0.5ML NEB NEB SCH ×4 (00:36→19:44)
[2020-01-10] MEDS: HEPARIN 100 UNIT/ML 5ML FLUSH FLUSH PRN ×3 (05:24→21:31)
[2020-01-10 07:03] LABS: BUN Creatinine Ratio 24.2 (10-20); Calcium 9.2 mg/dl (8.5-10.1); Creatinine Clr Calc Pharmacy 85.1 ml/min; Est GFR (African American) 94.3; Est GFR (Non-African American) 81.4; Potassium 3.5 mmol/L (3.5-5.1)
[2020-01-10] MEDS: BUDESONIDE 0.5 MG/2 ML VIAL (PULMICORT) INH SCH ×2 (07:15→19:44)
[2020-01-10] MEDS: FAMOTIDINE 20 MG TAB PO SCH ×2 (08:28→21:40)
[2020-01-10] MEDS: FOLIC ACID 1 MG TAB PO SCH (08:28)
[2020-01-10] MEDS: predniSONE 10 MG TABLET PO SCH (08:28)
[2020-01-10] MEDS: busPIRone 15 MG TAB PO SCH ×2 (08:29→21:33)
[2020-01-10] MEDS: FENOFIBRATE NANOCRYSTALLIZED 48 MG TABLET PO SCH (08:29)
[2020-01-10] MEDS: guaiFENesin 600 MG TABCR PO SCH ×2 (08:29→21:39)
[2020-01-10] MEDS: METOPROLOL TARTRATE 25 MG TAB PO SCH ×2 (08:30→21:38)
[2020-01-10] MEDS: DOXYCYCLINE HYCLATE 100 MG CAP PO SCH ×2 (08:30→21:41)
[2020-01-10] MEDS: CELECOXIB 100 MG CAP PO SCH ×2 (08:31→15:47)
[2020-01-10] MEDS: DOCUSATE SODIUM 100 MG CAP PO SCH ×2 (08:31→21:34)
[2020-01-10] MEDS: CEROVITE ADV FORMULA TAB PO SCH (08:31)
[2020-01-10] MEDS: FERROUS SULFATE 325 MG TAB PO SCH ×2 (08:31→15:49)
[2020-01-10] MEDS: cloZAPine 100 MG TAB PO SCH ×2 (08:31→15:48)
[2020-01-10] MEDS: UMECLIDINIUM/VILANTEROL 62.5/25MCG 7 PUFFS/INHALER INH SCH (08:32)
[2020-01-10] MEDS: PANTOprazole 40 MG TAB PO SCH ×2 (08:32→15:50)
[2020-01-10] MEDS: FLUTICASONE FUROATE 100MCG 14 PUFFS/INHALER INH SCH (08:32)
[2020-01-10] MEDS: CALCIUM 600MG + VIT D 400 IU TAB PO SCH ×2 (08:32→15:46)
[2020-01-10] MEDS: INSULIN ASPART 100 UNITS/ML 3 ML PEN SC SCH ×4 (08:34→21:34)
[2020-01-10] MEDS: CALCITONIN SALMON NA 200 IU/AC 3.7 ML BTL SCH (08:35)
[2020-01-10] MEDS: ENOXAPARIN INJ 40 MG/0.4 ML SYR SQ SCH (08:35)
[2020-01-10] MEDS: FLUTICASONE PROPIONATE NA SPR 16 GM BTL SCH (08:35)
[2020-01-10] MEDS: BREXPIPRAZOLE PO SCH (08:36)
[2020-01-10] MEDS: VORTIOXETINE HYDROBROMIDE PO SCH (08:36)
[2020-01-10] MEDS: CLOTRIMAZOLE/BETAMETHASONE CR 15 GM TUBE EXT SCH ×2 (08:37→21:36)
[2020-01-10] MEDS: KETOCONAZOLE 2% CR 15 GM TUBE EXT SCH ×3 (08:37→21:40)
[2020-01-10] MEDS: INSULIN GLARGINE SOLOSTAR 100 UNITS/ML 3 ML PEN SC SCH ×2 (08:38→21:37)
[2020-01-10] MEDS: clonazePAM 0.25 MG TAB PO SCH ×2 (08:41→15:44)
[2020-01-10] MEDS: traMADol HCL 50 MG TABLET PO PRN ×3 (08:53→21:32)
[2020-01-10] MEDS: ACETAMINOPHEN 500 MG TAB PO PRN ×2 (11:08→18:29)
[2020-01-10] MEDS: CEFEPIME 2,000 MG in SYRINGE 0 ML IV SCH ×2 (12:02→21:31)
[2020-01-10] MEDS: LORATADINE 10 MG TAB PO SCH (15:46)
--- NOTE | 2020-01-10 16:30 | Hospitalist Progress Note ---
Date of Service January 10, 2020 Assessment & Plan (1) Acute and chronic respiratory failure with hypoxia: Chronic hypoxic respiratory failure. Underlying pulmonary fibrosis and COPD. Presented with cough and worsening dyspnea. Chest x-ray showed chronic interstitial changes. SARS-CoV-2 PCR negative. Seen by Pulmonary Medicine. Procalcitonin and C-reactive protein normal. Sputum culture 01/07 with scant growth. Possible superimposed pulmonary edema on chest x-ray, but pro-BNP normal. Taper steroids to usual maintenance dose (prednisone 15 mg daily) as soon as able. Complete course of doxycycline. Chest more congested and cough productive of thick green sputum. Check repeat sputum gram stain, C&S. Add IV cefepime. Uses percussion vest at home- resume percussion therapy. Oxygenating well on 4 L NC. Continue supplemental O2 + BiPAP as needed. (2) Acute exacerbation of chronic obstructive pulmonary disease (COPD): As noted above. (3) Pulmonary fibrosis: As noted above. (4) GERD (gastroesophageal reflux disease): Continue famotidine and PPI. (5) Diabetes mellitus type 2, controlled: Watch blood sugars closely while on steroids. FBS today = 127. Insulin coverage as needed. (6) Hepatitis C: Continue glecaprevir / pibrentasvir. (7) Depression: Management per Psychiatry. (8) Anxiety: Management per Psychiatry. (9) Schizophrenia: Management per Psychiatry. (10) Asymptomatic bacteriuria: Urine culture growing Pseudomonas aeruginosa. No fever or dysuria. Chronic urinary incontinence. UA negative for nitrites, 1+ leukocyte esterase, 1-5 WBC's, many epithelial cells. Doubt UTI- colonization or contamination more likely. Antibiotic therapy not indicated. (11) DVT prophylaxis: SQ enoxaparin. Ambulate. (12) Discharge planning issues: Anticipated discharge to home with home health services. Family Medicine follow-up with Dr. Adam. Follow-up with Pulmonary Medicine. Admission and Anticipated Discharge Date Admission Date: January 06, 2020 Subjective Recheck for hypoxia, depression, and other problems. Patient seen in their room around 1040. Out of bed in chair. Maintaining oxygenation on 4 L NC. Patient states that she feels less SOB. However, persistent cough productive of thick green sputum. Requesting cough medicine (explained to her that best not to suppress cough). No fever. Review of Systems: Constitutional- as noted above. Cardiac- no chest pain. Pulmonary- as noted above. GI- no nausea, vomiting, diarrhea, melena, hematochezia. - chronic urinary incontinence; no dysuria. Otherwise, as noted above. Physical Exam Constitutional: no acute distress Eyes: + anicteric sclerae Respiratory: Auscultation: + rales (scattered), + rhonchi and + wheezes Cardiovascular: Rate/Rhythm: regular rate and regular rhythm Vessels: no JVD Extremities: no calf tenderness and no edema Gastrointestinal (Abdomen): normal bowel sounds, soft, nontender, no hepatosplenomegaly Musculoskeletal: Extremities: no cyanosis Skin: no rashes, warm and dry Psychiatric: Orientation: alert and oriented x 3 Results & Data Results & Data ([facility]) Vital Signs (Past 12 Hours) Vital Signs Temp Pulse Pulse Resp BP BP Pulse Ox 01/10/20 15:47 36.7 C 104 H 20 141/97 H 95 01/10/20 15:26 94 H 01/10/20 12:48 83 17 98 01/10/20 12:04 36.3 C L 94 H 20 112/77 93 01/10/20 08:01 36.5 C 101 H 18 138/85 90 01/10/20 07:19 99 H 01/10/20 07:15 87 22 96 Laboratory Results Laboratory Results - last 24 hr 01/09/20 01/09/20 01/10/20 17:02 20:38 05:24 Sodium 144 Potassium 3.5 Chloride 108 H Carbon Dioxide 32 Anion Gap 4.0 BUN 19 H Creatinine 0.79 Est Cr Clr Drug Dosing 85.1 Est GFR ( Amer) 94.3 Est GFR (Non-Af Amer) 81.4 BUN/Creatinine Ratio 24.2 H Glucose 112 H POC Glucose 175 H 113 H Calcium 9.2 01/10/20 01/10/20 01/10/20 07:35 11:49 16:35 Sodium Potassium Chloride Carbon Dioxide Anion Gap BUN Creatinine Est Cr Clr Drug Dosing Est GFR ( Amer) Est GFR (Non-Af Amer) BUN/Creatinine Ratio Glucose POC Glucose 127 H 138 H 196 H Calcium (1) Schizophrenia Schizophrenia type: unspecified Qualified Code(s): F20.9 - Schizophrenia, unspecified
[2020-01-10] MEDS: PIBRENTASVIR PO SCH (18:30)
[2020-01-10] MEDS: GLECAPREVIR PO SCH (18:30)
[2020-01-10] MEDS: clonazePAM 0.5 MG TAB PO SCH (21:31)
[2020-01-10] MEDS: MELATONIN 3 MG TAB PO PRN (21:32)
[2020-01-10] MEDS: MONTELUKAST SODIUM 10 MG TABLET PO SCH (21:40)
[2020-01-10] MEDS: CYCLOBENZAPRINE HCL 5 MG TAB PO PRN (22:09)
[2020-01-11] MEDS: LEVALBUTEROL 1.25MG/0.5ML NEB NEB SCH ×4 (01:51→19:26)
[2020-01-11 06:49] LABS: Potassium 3.7 mmol/L (3.5-5.1)
[2020-01-11 06:52] LABS: Magnesium 1.9 mg/dl (1.8-2.4)
[2020-01-11] MEDS: BUDESONIDE 0.5 MG/2 ML VIAL (PULMICORT) INH SCH ×2 (07:24→19:26)
[2020-01-11] MEDS: traMADol HCL 50 MG TABLET PO PRN ×3 (08:21→21:36)
[2020-01-11] MEDS: cloZAPine 100 MG TAB PO SCH ×2 (08:22→16:13)
[2020-01-11] MEDS: clonazePAM 0.25 MG TAB PO SCH ×2 (08:22→16:12)
[2020-01-11] MEDS: DOXYCYCLINE HYCLATE 100 MG CAP PO SCH ×2 (08:22→20:45)
[2020-01-11] MEDS: CALCIUM 600MG + VIT D 400 IU TAB PO SCH ×2 (08:23→16:14)
[2020-01-11] MEDS: predniSONE 10 MG TABLET PO SCH (08:23)
[2020-01-11] MEDS: guaiFENesin 600 MG TABCR PO SCH ×2 (08:23→20:43)
[2020-01-11] MEDS: PANTOprazole 40 MG TAB PO SCH ×2 (08:23→16:14)
[2020-01-11] MEDS: METOPROLOL TARTRATE 25 MG TAB PO SCH ×2 (08:24→20:42)
[2020-01-11] MEDS: DOCUSATE SODIUM 100 MG CAP PO SCH ×2 (08:24→20:38)
[2020-01-11] MEDS: FAMOTIDINE 20 MG TAB PO SCH ×2 (08:24→20:44)
[2020-01-11] MEDS: busPIRone 15 MG TAB PO SCH ×2 (08:25→20:37)
[2020-01-11] MEDS: FERROUS SULFATE 325 MG TAB PO SCH ×2 (08:25→16:16)
[2020-01-11] MEDS: CELECOXIB 100 MG CAP PO SCH ×2 (08:25→16:13)
[2020-01-11] MEDS: FOLIC ACID 1 MG TAB PO SCH (08:25)
[2020-01-11] MEDS: CEROVITE ADV FORMULA TAB PO SCH (08:25)
[2020-01-11] MEDS: CYCLOBENZAPRINE HCL 5 MG TAB PO PRN ×3 (08:26→23:26)
[2020-01-11] MEDS: FENOFIBRATE NANOCRYSTALLIZED 48 MG TABLET PO SCH (08:26)
[2020-01-11] MEDS: UMECLIDINIUM/VILANTEROL 62.5/25MCG 7 PUFFS/INHALER INH SCH (08:27)
[2020-01-11] MEDS: FLUTICASONE FUROATE 100MCG 14 PUFFS/INHALER INH SCH (08:27)
[2020-01-11] MEDS: INSULIN GLARGINE SOLOSTAR 100 UNITS/ML 3 ML PEN SC SCH ×2 (08:27→20:38)
[2020-01-11] MEDS: INSULIN ASPART 100 UNITS/ML 3 ML PEN SC SCH ×4 (08:28→20:44)
[2020-01-11] MEDS: FLUTICASONE PROPIONATE NA SPR 16 GM BTL SCH (08:29)
[2020-01-11] MEDS: CALCITONIN SALMON NA 200 IU/AC 3.7 ML BTL SCH (08:29)
[2020-01-11] MEDS: ENOXAPARIN INJ 40 MG/0.4 ML SYR SQ SCH (08:30)
[2020-01-11] MEDS: CEFEPIME 2,000 MG in SYRINGE 0 ML IV SCH ×2 (08:30→20:37)
[2020-01-11] MEDS: KETOCONAZOLE 2% CR 15 GM TUBE EXT SCH ×3 (08:30→20:43)
[2020-01-11] MEDS: CLOTRIMAZOLE/BETAMETHASONE CR 15 GM TUBE EXT SCH ×2 (08:30→20:43)
[2020-01-11] MEDS: BREXPIPRAZOLE PO SCH (08:31)
[2020-01-11] MEDS: VORTIOXETINE HYDROBROMIDE PO SCH (08:31)
[2020-01-11] MEDS: HEPARIN 100 UNIT/ML 5ML FLUSH FLUSH PRN ×2 (08:38→20:51)
[2020-01-11] MEDS: ACETAMINOPHEN 500 MG TAB PO PRN (13:50)
[2020-01-11] MEDS: LORATADINE 10 MG TAB PO SCH (16:14)
--- NOTE | 2020-01-11 18:28 | Hospitalist Progress Note ---
Date of Service January 11, 2020 Assessment & Plan (1) Acute and chronic respiratory failure with hypoxia: Chronic hypoxic respiratory failure. Underlying pulmonary fibrosis and COPD. Presented with cough and worsening dyspnea. Chest x-ray showed chronic interstitial changes. SARS-CoV-2 PCR negative. Seen by Pulmonary Medicine. Procalcitonin and C-reactive protein normal. Sputum culture 01/07 with scant growth. Possible superimposed pulmonary edema on chest x-ray, but pro-BNP normal. Taper steroids to usual maintenance dose (prednisone 15 mg daily) as soon as able. Complete course of doxycycline. Chest more congested and cough productive of thick green sputum. Sputum culture growing Pseudomonas. Added IV cefepime. Continue percussion therapy. Continue supplemental O2 + BiPAP as needed. (2) Acute exacerbation of chronic obstructive pulmonary disease (COPD): As noted above. (3) Pulmonary fibrosis: As noted above. (4) GERD (gastroesophageal reflux disease): Continue famotidine and PPI. (5) Diabetes mellitus type 2, controlled: Diet-controlled. Hgb A1c 6.2 on 11/16/19. Watch blood sugars closely while on steroids. FBS today = 105. Insulin coverage as needed. (6) Hepatitis C: Continue glecaprevir / pibrentasvir. (7) Depression: Management per Psychiatry. (8) Anxiety: Management per Psychiatry. (9) Schizophrenia: Management per Psychiatry. (10) Asymptomatic bacteriuria: Urine culture growing Pseudomonas aeruginosa. No fever or dysuria. Chronic urinary incontinence. UA negative for nitrites, 1+ leukocyte esterase, 1-5 WBC's, many epithelial cells. Doubt UTI- colonization or contamination more likely. Antibiotic therapy not indicated for UTI (although now receiving cefepime for lower resp tract infection). (11) DVT prophylaxis: SQ enoxaparin. Ambulate. (12) Discharge planning issues: Anticipated discharge to home with home health services. Family Medicine follow-up with Dr. Adam. Follow-up with Pulmonary Medicine. Admission and Anticipated Discharge Date Admission Date: January 06, 2020 Subjective Recheck for hypoxia, depression, and other problems. Patient seen in their room around 1120. Persistent coughing and wheezing. Cough productive of thick green sputum. Respiratory therapy performing percussion therapy with vest. Patient using incentive spirometry and flutter valve. Constipated. Review of Systems: Constitutional- as noted above. Cardiac- no chest pain. Pulmonary- as noted above. GI- no nausea, vomiting, diarrhea, melena, hematochezia. - chronic urinary incontinence; no dysuria. Otherwise, as noted above. Physical Exam Constitutional: no acute distress Eyes: + anicteric sclerae Respiratory: Auscultation: + rales (scattered), + rhonchi and + wheezes Cardiovascular: Rate/Rhythm: regular rate and regular rhythm Vessels: no JVD Extremities: no calf tenderness and no edema Gastrointestinal (Abdomen): normal bowel sounds, soft, nontender, no hepatosplenomegaly Musculoskeletal: Extremities: no cyanosis Skin: no rashes, warm and dry Psychiatric: Orientation: alert and oriented x 3 Mood: + anxious mood Results & Data Results & Data ([facility]) Vital Signs (Past 12 Hours) Vital Signs Temp Pulse Pulse Resp BP Pulse Ox 01/11/20 15:54 103 H 01/11/20 15:18 36.7 C 100 H 20 115/78 95 01/11/20 13:20 101 H 19 90 01/11/20 11:51 85 01/11/20 11: 36.4 C L 88 20 93/68 L 98 01/11/20 07:27 81 20 96 01/11/20 07:06 36.4 C L 84 20 118/73 93 Laboratory Results Laboratory Results - last 24 hr 01/10/20 01/11/20 01/11/20 20:48 06:05 07:34 Potassium 3.7 POC Glucose 157 H 105 H Magnesium 1.9 01/11/20 01/11/20 11:31 16:48 Potassium POC Glucose 123 H 188 H Magnesium Microbiology 01/10/20 Unknown Sputum, Expectorated Gram Stain - Final 01/10/20 Unknown Sputum, Expectorated Sputum Culture - Preliminary Pin-point growth present, reincubating. 01/06/20 11:33 Urine,Clean Catch Urine Culture - Final Pseudomonas aeruginosa 01/08/20 18:05 Sputum, Expectorated Gram Stain - Final 01/08/20 18:05 Sputum, Expectorated Sputum Culture - Final Pseudomonas aeruginosa Pseudomonas aeruginosa#2 01/06/20 21:33 Blood Aerobic Blood Culture - Preliminary No growth in Aerobic bottle after 48 hours. 01/06/20 21:33 Blood Anaerobic Blood Culture - Preliminary No growth in Anaerobic bottle after 48 hours. 01/06/20 21:34 Blood Aerobic Blood Culture - Preliminary No growth in Aerobic bottle after 48 hours. 01/06/20 21:34 Blood Anaerobic Blood Culture - Preliminary No growth in Anaerobic bottle after 48 hours. (1) Schizophrenia Schizophrenia type: unspecified Qualified Code(s): F20.9 - Schizophrenia, unspecified
[2020-01-11] MEDS: PIBRENTASVIR PO SCH (18:32)
[2020-01-11] MEDS: GLECAPREVIR PO SCH (18:32)
[2020-01-11] MEDS: MELATONIN 3 MG TAB PO PRN (20:36)
[2020-01-11] MEDS: clonazePAM 0.5 MG TAB PO SCH (20:37)
[2020-01-11] MEDS: MONTELUKAST SODIUM 10 MG TABLET PO SCH (20:45)
[2020-01-11] MEDS: DICLOFENAC SOD 1% GEL 100 GM TUBE EXT PRN (23:27)
[2020-01-12] MEDS: LEVALBUTEROL 1.25MG/0.5ML NEB NEB SCH ×4 (00:22→19:31)
[2020-01-12] MEDS: BUDESONIDE 0.5 MG/2 ML VIAL (PULMICORT) INH SCH ×2 (08:04→19:31)
[2020-01-12] MEDS: clonazePAM 0.25 MG TAB PO SCH ×2 (08:24→16:28)
[2020-01-12] MEDS: DOXYCYCLINE HYCLATE 100 MG CAP PO SCH ×2 (08:24→20:56)
[2020-01-12] MEDS: FENOFIBRATE NANOCRYSTALLIZED 48 MG TABLET PO SCH (08:24)
[2020-01-12] MEDS: FAMOTIDINE 20 MG TAB PO SCH ×2 (08:25→20:56)
[2020-01-12] MEDS: CEROVITE ADV FORMULA TAB PO SCH (08:25)
[2020-01-12] MEDS: PANTOprazole 40 MG TAB PO SCH ×2 (08:25→17:33)
[2020-01-12] MEDS: FOLIC ACID 1 MG TAB PO SCH (08:25)
[2020-01-12] MEDS: cloZAPine 100 MG TAB PO SCH ×2 (08:25→17:32)
[2020-01-12] MEDS: FERROUS SULFATE 325 MG TAB PO SCH ×2 (08:25→17:32)
[2020-01-12] MEDS: CELECOXIB 100 MG CAP PO SCH ×2 (08:25→17:31)
[2020-01-12] MEDS: CALCIUM 600MG + VIT D 400 IU TAB PO SCH ×2 (08:25→17:31)
[2020-01-12] MEDS: METOPROLOL TARTRATE 25 MG TAB PO SCH ×2 (08:26→20:53)
[2020-01-12] MEDS: predniSONE 10 MG TABLET PO SCH (08:26)
[2020-01-12] MEDS: guaiFENesin 600 MG TABCR PO SCH ×2 (08:26→20:55)
[2020-01-12] MEDS: DOCUSATE SODIUM 100 MG CAP PO SCH ×2 (08:26→20:52)
[2020-01-12] MEDS: ENOXAPARIN INJ 40 MG/0.4 ML SYR SQ SCH (08:26)
[2020-01-12] MEDS: CALCITONIN SALMON NA 200 IU/AC 3.7 ML BTL SCH (08:27)
[2020-01-12] MEDS: FLUTICASONE PROPIONATE NA SPR 16 GM BTL SCH (08:27)
[2020-01-12] MEDS: UMECLIDINIUM/VILANTEROL 62.5/25MCG 7 PUFFS/INHALER INH SCH (08:27)
[2020-01-12] MEDS: FLUTICASONE FUROATE 100MCG 14 PUFFS/INHALER INH SCH (08:27)
[2020-01-12] MEDS: VORTIOXETINE HYDROBROMIDE PO SCH (08:27)
[2020-01-12] MEDS: KETOCONAZOLE 2% CR 15 GM TUBE EXT SCH ×3 (08:28→20:54)
[2020-01-12] MEDS: BREXPIPRAZOLE PO SCH (08:28)
[2020-01-12] MEDS: busPIRone 15 MG TAB PO SCH ×2 (08:28→20:52)
[2020-01-12] MEDS: INSULIN GLARGINE SOLOSTAR 100 UNITS/ML 3 ML PEN SC SCH ×2 (08:41→20:52)
[2020-01-12] MEDS: INSULIN ASPART 100 UNITS/ML 3 ML PEN SC SCH ×4 (08:41→20:55)
[2020-01-12] MEDS: traMADol HCL 50 MG TABLET PO PRN ×3 (09:16→23:37)
[2020-01-12] MEDS: CEFEPIME 2,000 MG in SYRINGE 0 ML IV SCH ×2 (09:16→20:51)
[2020-01-12] MEDS: CLOTRIMAZOLE/BETAMETHASONE CR 15 GM TUBE EXT SCH ×2 (10:01→20:54)
[2020-01-12] MEDS: POLYETHYLENE (MIRALAX) 17 GM PACK PO PRN (10:19)
[2020-01-12] MEDS: ACETAMINOPHEN 500 MG TAB PO PRN (11:12)
[2020-01-12] MEDS: CYCLOBENZAPRINE HCL 5 MG TAB PO PRN (13:50)
[2020-01-12] MEDS: LORATADINE 10 MG TAB PO SCH (16:29)
[2020-01-12] MEDS: GLECAPREVIR PO SCH (19:00)
[2020-01-12] MEDS: PIBRENTASVIR PO SCH (19:00)
[2020-01-12] MEDS: clonazePAM 0.5 MG TAB PO SCH (20:50)
[2020-01-12] MEDS: HEPARIN 100 UNIT/ML 5ML FLUSH FLUSH PRN (20:51)
[2020-01-12] MEDS: MONTELUKAST SODIUM 10 MG TABLET PO SCH (20:56)
--- NOTE | 2020-01-12 21:20 | Hospitalist Progress Note ---
Date of Service January 12, 2020 Assessment & Plan (1) Acute and chronic respiratory failure with hypoxia: Chronic hypoxic respiratory failure. Underlying pulmonary fibrosis and COPD. Presented with cough and worsening dyspnea. Chest x-ray showed chronic interstitial changes. SARS-CoV-2 PCR negative. Seen by Pulmonary Medicine. Procalcitonin and C-reactive protein normal. Sputum culture 01/07 with scant growth. Possible superimposed pulmonary edema on chest x-ray, but pro-BNP normal. Taper steroids to usual maintenance dose (prednisone 15 mg daily) as soon as able. Complete course of doxycycline. Chest more congested and cough productive of thick green sputum. Sputum culture growing Pseudomonas, resistant to quinolones. Added IV cefepime- today is day #3. Continue percussion therapy. Continue supplemental O2 + BiPAP as needed. (2) Acute exacerbation of chronic obstructive pulmonary disease (COPD): As noted above. (3) Pulmonary fibrosis: As noted above. (4) GERD (gastroesophageal reflux disease): Continue famotidine and PPI. (5) Diabetes mellitus type 2, controlled: Diet-controlled. Hgb A1c 6.2 on 11/16/19. Watch blood sugars closely while on steroids. FBS today = 107. Insulin coverage as needed. (6) Hepatitis C: Continue glecaprevir / pibrentasvir. (7) Depression: Management per Psychiatry. (8) Anxiety: Management per Psychiatry. (9) Schizophrenia: Management per Psychiatry. (10) Asymptomatic bacteriuria: Urine culture growing Pseudomonas aeruginosa. No fever or dysuria. Chronic urinary incontinence. UA negative for nitrites, 1+ leukocyte esterase, 1-5 WBC's, many epithelial cells. Doubt UTI- colonization or contamination more likely. Antibiotic therapy not indicated for UTI (although now receiving cefepime for lower resp tract infection). (11) DVT prophylaxis: SQ enoxaparin. Ambulate. (12) Discharge planning issues: Anticipated discharge to home with home health services. Family Medicine follow-up with Dr. Adam. Follow-up with Pulmonary Medicine. Admission and Anticipated Discharge Date Admission Date: January 06, 2020 Subjective Recheck for hypoxia, depression, and other problems. Patient seen in their room around 1000. Coughing and dyspnea a little better. No fever. Still constipated. Review of Systems: Constitutional- as noted above. Cardiac- no chest pain. Pulmonary- as noted above. GI- no nausea, vomiting, diarrhea, melena, hematochezia. - chronic urinary incontinence; no dysuria. Otherwise, as noted above. Physical Exam Constitutional: no acute distress Eyes: + anicteric sclerae Respiratory: Auscultation: + rales (scattered), + rhonchi and + wheezes Cardiovascular: Rate/Rhythm: regular rate and regular rhythm Vessels: no JVD Extremities: no calf tenderness and no edema Gastrointestinal (Abdomen): normal bowel sounds, soft, nontender, no hepatosplenomegaly Musculoskeletal: Extremities: no cyanosis Skin: no rashes, warm and dry Psychiatric: Orientation: alert and oriented x 3 Mood: + anxious mood Results & Data Results & Data ([place]) Vital Signs (Past 12 Hours) Vital Signs Temp Pulse Pulse Resp BP BP Pulse Ox 01/12/20 19:45 36.4 C L 108 H 22 135/90 90 01/12/20 19:36 86 24 95 01/12/20 15:46 36.7 C 96 H 20 103/73 92 01/12/20 15:09 101 H 01/12/20 14:37 36.5 C 110 H 18 134/83 93 01/12/20 12:41 98 H 18 96 01/12/20 12:02 95 01/12/20 11:00 36.5 C 88 22 120/80 99 Laboratory Results Laboratory Results - last 24 hr 01/12/20 01/12/20 01/12/20 08:39 12:20 16:17 POC Glucose 107 H 153 H 124 H 01/12/20 20:33 POC Glucose 119 H (1) Schizophrenia Schizophrenia type: unspecified Qualified Code(s): F20.9 - Schizophrenia, unspecified
[2020-01-13] MEDS: LEVALBUTEROL 1.25MG/0.5ML NEB NEB SCH ×4 (01:24→20:04)
[2020-01-13 06:34] LABS: Basophils # (auto) 0.03 K/uL (0-0.2); Basophils % (auto) 0.3 %; Eosinophils # (auto) 0.32 K/uL (0-0.5); Eosinophils % (auto) 3.2 %; Hematocrit (blood only) 41.3 % (37-47); Hemoglobin 12.8 g/dL (12.0-16.0); Immature Granulocytes # (auto) 0.09 K/uL (0.00-0.02); Immature Granulocytes % (auto) 0.9 %; Lymphocytes # (auto) 2.51 K/uL (1.2-3.4); Lymphocytes % (auto) 25.1 %; Mean Corpuscular Hemoglobin 31.4 pg (25-34); Mean Corpuscular Volume 101.5 fL (80-100); Mean Platelet Volume 10.2 fL (7.4-10.4); Monocytes # (auto) 0.93 K/uL (0.11-0.59); Monocytes % (auto) 9.3 %; Neutrophils # (auto) 6.11 K/uL (1.4-6.5); Neutrophils % (auto) 61.2 %; Platelet Count 206 K/uL (130-400); RDW Coefficient of Variation 13.2 % (11.5-14.5); RDW Standard Deviation 48.8 fL (36.4-46.3); Red Blood Count 4.07 M/uL (4.2-5.4); White Blood Count 9.99 K/uL (4.8-10.8)
[2020-01-13 07:10] LABS: Calcium 9.6 mg/dl (8.5-10.1); Creatinine Clr Calc Pharmacy 90.9 ml/min; Est GFR (African American) 102.1; Est GFR (Non-African American) 88.1; Potassium 3.8 mmol/L (3.5-5.1)
[2020-01-13] MEDS: BUDESONIDE 0.5 MG/2 ML VIAL (PULMICORT) INH SCH ×2 (07:48→20:04)
[2020-01-13] MEDS: guaiFENesin 600 MG TABCR PO SCH ×2 (08:48→20:55)
[2020-01-13] MEDS: METOPROLOL TARTRATE 25 MG TAB PO SCH ×2 (08:48→20:53)
[2020-01-13] MEDS: FAMOTIDINE 20 MG TAB PO SCH ×2 (08:48→20:58)
[2020-01-13] MEDS: predniSONE 10 MG TABLET PO SCH (08:49)
[2020-01-13] MEDS: busPIRone 15 MG TAB PO SCH ×2 (08:49→20:52)
[2020-01-13] MEDS: DOCUSATE SODIUM 100 MG CAP PO SCH ×2 (08:49→20:52)
[2020-01-13] MEDS: FOLIC ACID 1 MG TAB PO SCH (08:49)
[2020-01-13] MEDS: FENOFIBRATE NANOCRYSTALLIZED 48 MG TABLET PO SCH (08:50)
[2020-01-13] MEDS: cloZAPine 100 MG TAB PO SCH ×2 (08:50→17:28)
[2020-01-13] MEDS: CEROVITE ADV FORMULA TAB PO SCH (08:50)
[2020-01-13] MEDS: CALCIUM 600MG + VIT D 400 IU TAB PO SCH ×2 (08:50→17:28)
[2020-01-13] MEDS: DOXYCYCLINE HYCLATE 100 MG CAP PO SCH (08:51)
[2020-01-13] MEDS: FERROUS SULFATE 325 MG TAB PO SCH ×2 (08:51→17:27)
[2020-01-13] MEDS: PANTOprazole 40 MG TAB PO SCH ×2 (08:51→17:27)
[2020-01-13] MEDS: CELECOXIB 100 MG CAP PO SCH ×2 (08:52→17:28)
[2020-01-13] MEDS: UMECLIDINIUM/VILANTEROL 62.5/25MCG 7 PUFFS/INHALER INH SCH (08:53)
[2020-01-13] MEDS: ENOXAPARIN INJ 40 MG/0.4 ML SYR SQ SCH (08:54)
[2020-01-13] MEDS: CALCITONIN SALMON NA 200 IU/AC 3.7 ML BTL SCH (08:54)
[2020-01-13] MEDS: FLUTICASONE FUROATE 100MCG 14 PUFFS/INHALER INH SCH (08:54)
[2020-01-13] MEDS: FLUTICASONE PROPIONATE NA SPR 16 GM BTL SCH (08:55)
[2020-01-13] MEDS: clonazePAM 0.25 MG TAB PO SCH ×2 (08:57→15:52)
[2020-01-13] MEDS: CEFEPIME 2,000 MG in SYRINGE 0 ML IV SCH ×2 (08:57→20:55)
[2020-01-13] MEDS: HEPARIN 100 UNIT/ML 5ML FLUSH FLUSH PRN ×2 (08:57→20:59)
[2020-01-13] MEDS: BREXPIPRAZOLE PO SCH (08:58)
[2020-01-13] MEDS: VORTIOXETINE HYDROBROMIDE PO SCH (08:58)
[2020-01-13] MEDS: CLOTRIMAZOLE/BETAMETHASONE CR 15 GM TUBE EXT SCH ×2 (08:59→20:55)
[2020-01-13] MEDS: KETOCONAZOLE 2% CR 15 GM TUBE EXT SCH ×3 (08:59→20:55)
[2020-01-13] MEDS: INSULIN GLARGINE SOLOSTAR 100 UNITS/ML 3 ML PEN SC SCH ×2 (09:00→20:53)
[2020-01-13] MEDS: INSULIN ASPART 100 UNITS/ML 3 ML PEN SC SCH ×4 (09:01→20:57)
[2020-01-13] MEDS: traMADol HCL 50 MG TABLET PO PRN ×2 (09:08→15:52)
[2020-01-13] MEDS: ACETAMINOPHEN 500 MG TAB PO PRN ×2 (10:01→20:58)
[2020-01-13] MEDS: CYCLOBENZAPRINE HCL 5 MG TAB PO PRN ×2 (11:29→21:30)
[2020-01-13] MEDS: LORATADINE 10 MG TAB PO SCH (15:53)
[2020-01-13] MEDS: PIBRENTASVIR PO SCH (18:30)
[2020-01-13] MEDS: GLECAPREVIR PO SCH (18:30)
[2020-01-13] MEDS: clonazePAM 0.5 MG TAB PO SCH (20:53)
[2020-01-13] MEDS: MONTELUKAST SODIUM 10 MG TABLET PO SCH (20:58)
--- NOTE | 2020-01-13 21:23 | Hospitalist Progress Note ---
Date of Service January 13, 2020 Assessment & Plan (1) Acute and chronic respiratory failure with hypoxia: Chronic hypoxic respiratory failure. Underlying pulmonary fibrosis and COPD. Presented with cough and worsening dyspnea. Chest x-ray showed chronic interstitial changes. SARS-CoV-2 PCR negative. Seen by Pulmonary Medicine. Procalcitonin and C-reactive protein normal. Sputum culture 01/07 with scant growth. Possible superimposed pulmonary edema on chest x-ray, but pro-BNP normal. Taper steroids to usual maintenance dose (prednisone 15 mg daily) as soon as able. Completed course of doxycycline. Developed worsening chest congestion and cough productive of thick green sputum. Sputum culture grew Pseudomonas, resistant to quinolones. Added IV cefepime- today is day #4. Expected course of therapy 7 - 10 days. Continue percussion therapy. Continue supplemental O2 + BiPAP as needed. (2) Acute exacerbation of chronic obstructive pulmonary disease (COPD): As noted above. (3) Pulmonary fibrosis: As noted above. (4) GERD (gastroesophageal reflux disease): Continue famotidine and PPI. (5) Diabetes mellitus type 2, controlled: Diet-controlled. Hgb A1c 6.2 on 11/16/19. Watch blood sugars closely while on steroids. FBS today = 96. Insulin coverage as needed. (6) Hepatitis C: Continue glecaprevir / pibrentasvir. (7) Depression: Management per Psychiatry. (8) Anxiety: Management per Psychiatry. (9) Schizophrenia: Management per Psychiatry. (10) Asymptomatic bacteriuria: Urine culture growing Pseudomonas aeruginosa. No fever or dysuria. Chronic urinary incontinence. UA negative for nitrites, 1+ leukocyte esterase, 1-5 WBC's, many epithelial cells. Doubt UTI- colonization or contamination more likely. Antibiotic therapy not indicated for UTI (although now receiving cefepime for lower resp tract infection). (11) DVT prophylaxis: SQ enoxaparin. Ambulate. (12) Discharge planning issues: Anticipated discharge to home with home health services. Family Medicine follow-up with Dr. Adam. Follow-up with Pulmonary Medicine. Admission and Anticipated Discharge Date Admission Date: January 06, 2020 Subjective Recheck for hypoxia, depression, and other problems. Patient seen in their room around 1550. Coughing and dyspnea a little better. No fever. Frontal headache. Review of Systems: Constitutional- as noted above. Cardiac- no chest pain. Pulmonary- as noted above. GI- no nausea, vomiting, diarrhea, melena, hematochezia. - chronic urinary incontinence; no dysuria. Otherwise, as noted above. Physical Exam Constitutional: no acute distress Eyes: + anicteric sclerae Respiratory: Auscultation: + rales (scattered), + rhonchi and + wheezes Cardiovascular: Rate/Rhythm: regular rate and regular rhythm Vessels: no JV D Extremities: no calf tenderness and no edema Gastrointestinal (Abdomen): normal bowel sounds, soft, nontender, no hep atosplenomegaly Musculoskeletal: Extremities: no cyanosis Skin: no rashes, warm and dry Psychiatric: Orientation: alert and oriented x 3 Mood: + anxious mood Results & Data Results & Data ([facility]) Vital Signs (Past 12 Hours) Vital Signs Temp Pulse Pulse Resp BP Pulse Ox 01/13/20 20:04 100 H 18 96 01/13/20 19:36 36.6 C 123 H 24 146/89 H 90 01/13/20 15:42 102 H 01/13/20 15:34 36.8 C 99 H 20 119/83 92 01/13/20 13:34 22 97 01/13/20 11:57 36.5 C 93 H 22 110/70 96 Laboratory Results Laboratory Results - last 24 hr 01/13/20 01/13/20 01/13/20 06:11 06:11 07:40 WBC 9.99 RBC 4.07 L Hgb 12.8 Hct 41.3 MCV 101.5 H MCH 31.4 MCHC 31.0 L RDW Std Deviation 48.8 H RDW Coeff of Ivy 13.2 Plt Count 206 MPV 10.2 Immature Gran % (Auto) 0.9 Neut % (Auto) 61.2 Lymph % (Auto) 25.1 [place] % (Auto) 9.3 Eos % (Auto) 3.2 Baso % (Auto) 0.3 Neut # (Auto) 6.11 Lymph # (Auto) 2.51 [place] # (Auto) 0.93 H Eos # (Auto) 0.32 Baso # (Auto) 0.03 Immature Gran # (Auto) 0.09 H Sodium 144 Potassium 3.8 Chloride 108 H Carbon Dioxide 33 H Anion Gap 3.0 BUN 18 Creatinine 0.74 Est Cr Clr Drug Dosing 90.9 Est GFR ( Amer) 102.1 Est GFR (Non-Af Amer) 88.1 BUN/Creatinine Ratio 24.0 H Glucose 102 H POC Glucose 96 Calcium 9.6 01/13/20 01/13/20 01/13/20 11:45 16:43 19:59 WBC RBC Hgb Hct MCV MCH MCHC RDW Std Deviation RDW Coeff of Ivy Plt Count MPV Immature Gran % (Auto) Neut % (Auto) Lymph % (Auto) [place] % (Auto) Eos % (Auto) Baso % (Auto) Neut # (Auto) Lymph # (Auto) [place] # (Auto) Eos # (Auto) Baso # (Auto) Immature Gran # (Auto) Sodium Potassium Chloride Carbon Dioxide Anion Gap BUN Creatinine Est Cr Clr Drug Dosing Est GFR ( Amer) Est GFR (Non-Af Amer) BUN/Creatinine Ratio Glucose POC Glucose 141 H 202 H 137 H Calcium (1) Schizophrenia Schizophrenia type: unspecified Qualified Code(s): F20.9 - Schizophrenia, unspecified
[2020-01-14] MEDS: LEVALBUTEROL 1.25MG/0.5ML NEB NEB SCH ×4 (01:01→19:41)
[2020-01-14] MEDS: BUDESONIDE 0.5 MG/2 ML VIAL (PULMICORT) INH SCH ×2 (07:18→19:41)
[2020-01-14] MEDS: HEPARIN 100 UNIT/ML 5ML FLUSH FLUSH PRN ×2 (08:53→13:34)
[2020-01-14] MEDS: FERROUS SULFATE 325 MG TAB PO SCH ×2 (08:53→16:46)
[2020-01-14] MEDS: CELECOXIB 100 MG CAP PO SCH ×2 (08:53→16:46)
[2020-01-14] MEDS: CEFEPIME 2,000 MG in SYRINGE 0 ML IV SCH ×2 (08:53→20:24)
[2020-01-14] MEDS: CEROVITE ADV FORMULA TAB PO SCH (08:54)
[2020-01-14] MEDS: predniSONE 10 MG TABLET PO SCH (08:54)
[2020-01-14] MEDS: PANTOprazole 40 MG TAB PO SCH ×2 (08:54→16:45)
[2020-01-14] MEDS: FENOFIBRATE NANOCRYSTALLIZED 48 MG TABLET PO SCH (08:54)
[2020-01-14] MEDS: DOCUSATE SODIUM 100 MG CAP PO SCH ×2 (08:55→20:21)
[2020-01-14] MEDS: clonazePAM 0.25 MG TAB PO SCH ×2 (08:55→15:37)
[2020-01-14] MEDS: CALCIUM 600MG + VIT D 400 IU TAB PO SCH ×2 (08:55→16:46)
[2020-01-14] MEDS: cloZAPine 100 MG TAB PO SCH ×2 (08:55→16:47)
[2020-01-14] MEDS: FOLIC ACID 1 MG TAB PO SCH (08:55)
[2020-01-14] MEDS: METOPROLOL TARTRATE 25 MG TAB PO SCH ×2 (08:56→20:18)
[2020-01-14] MEDS: busPIRone 15 MG TAB PO SCH ×2 (08:56→20:21)
[2020-01-14] MEDS: FLUTICASONE PROPIONATE NA SPR 16 GM BTL SCH (08:57)
[2020-01-14] MEDS: guaiFENesin 600 MG TABCR PO SCH ×2 (08:57→20:18)
[2020-01-14] MEDS: FAMOTIDINE 20 MG TAB PO SCH ×2 (08:57→20:17)
[2020-01-14] MEDS: CALCITONIN SALMON NA 200 IU/AC 3.7 ML BTL SCH (08:57)
[2020-01-14] MEDS: FLUTICASONE FUROATE 100MCG 14 PUFFS/INHALER INH SCH (08:58)
[2020-01-14] MEDS: BREXPIPRAZOLE PO SCH (08:58)
[2020-01-14] MEDS: ENOXAPARIN INJ 40 MG/0.4 ML SYR SQ SCH (08:59)
[2020-01-14] MEDS: VORTIOXETINE HYDROBROMIDE PO SCH (08:59)
[2020-01-14] MEDS: CLOTRIMAZOLE/BETAMETHASONE CR 15 GM TUBE EXT SCH ×2 (09:00→20:23)
[2020-01-14] MEDS: KETOCONAZOLE 2% CR 15 GM TUBE EXT SCH ×3 (09:00→20:22)
[2020-01-14] MEDS: INSULIN GLARGINE SOLOSTAR 100 UNITS/ML 3 ML PEN SC SCH ×2 (09:01→21:08)
[2020-01-14] MEDS: INSULIN ASPART 100 UNITS/ML 3 ML PEN SC SCH ×4 (09:04→21:07)
[2020-01-14] MEDS: UMECLIDINIUM/VILANTEROL 62.5/25MCG 7 PUFFS/INHALER INH SCH (09:05)
[2020-01-14] MEDS: traMADol HCL 50 MG TABLET PO PRN ×3 (09:09→21:33)
[2020-01-14] MEDS: CYCLOBENZAPRINE HCL 5 MG TAB PO PRN ×2 (12:01→22:41)
[2020-01-14] MEDS: POLYETHYLENE (MIRALAX) 17 GM PACK PO PRN (12:29)
[2020-01-14] MEDS ORDERED: LEVALBUTEROL 1.25MG/0.5ML NEB NEB SCH (13:40)
--- NOTE | 2020-01-14 15:17 | Neurology Consultation ---
Date of Consultation January 14, 2020 Assessment & Plan (1) Acute and chronic respiratory failure with hypoxia: 1. per primary team Present on Admission?: Yes (2) COPD (chronic obstructive pulmonary disease): per primary team Present on Admission?: Yes (3) Headache above the eye region: 1. pressure headache- likely result of decrease O2 2. try mg++ ox 400 mg and riboflavin [address] head - could be done to r/o any bleed or hematoma- patient is not sure if she fell or hit head- MRI would not tolerate 4. gabapentin low dose could be tried unless a contra indication- renal dosing 200 mg - 700 mg daily 5. current poly medication list hesitate to add medications 6. will reevaluated after discharge by telemed from office Present on Admission?: Yes Supervising Physician Co-Signing Physician Notes Patient was seen and examined. I agree with Ana Mccarthy PA-C. A 59 year old woman with severe COPD on BiPAP as well as chronic daily headaches admitted for increased SOB. Patient missed outpatient appointment today for what she reports daily intermittent headaches described as a pressure although at times throbbing and associated with nausea and photophobia. She likes to lay down and rest. Headaches can last several hours. Was on gabapentin in the past but was switched to celebrex. She also noted right sided neck discomfort with these migraines. Prophylactic medications for headache is challenging due to comorbids and polypharmacy. I would consider starting Zanaflex 4 mg nightly for headaches,however, this can be discussed further by Ana Mccarthy and patient as an outpatient Via telemedicine once patient is more stable from a respiratory standpoint. History of Present Illness Reason for Consultation: headache Requesting Physician: Jose Alberto Diego MD Attending Physician: Jose Alberto Diego MD History of Present Illness Amelia is a 59 year old female who was admitted on 01/06/2020. She has a PMH- DM2, esophageal dysmotility, GERD, CKD stage III, osteoporosis, depression, schizoaffective disorders, tobacco abuse, chronic hypoxic respiratory failure due to underlying COPD + pulmonary fibrosis on 4-8 L NC canula oxygen presented to the ER with worsening shortness of breath. She was discharged from the hospital back in October and continued to have worsening shortness of breath. She said that she developed shortness of breath with minimal exertion. She said sometime just sitting or laying down she has shortness of breath. She has been on supplemental oxygen since diagnosed with COVID 19. She said that she has been having productive cough with yellowish sputum. She had suicidal thoughts due to her health condition because sometimes she had very hard time to breath. She had an appointment to see neurology but cancelled it because she is in the hospital and requested neurology see her for her head pain. She states she often gets dizzy (light headed) with standing and moving and then will get a headache on the top and back of her head. They are pressure not pounding and can last all day. She has tried alot of OTC medications for her headaches but nothing works. denies CP, new bowel or bladder issues, vision changes, N, V, falls or head trauma. Allergies Allergy/AdvReac Type Severity Reaction Status Date / Time hydroxyzine Allergy Unknown UNKNOWN Verified 01/06/20 12:17 fluphenazine AdvReac Intermediate confusion Verified 01/06/20 12:17 haloperidol AdvReac Intermediate "MAKES ME Verified 01/06/20 12:17 GO INTO BLACKOUT" hydrocodone AdvReac Intermediate DROWSY Verified 01/06/20 12:17 molindone AdvReac Intermediate PT FEELS Verified 01/06/20 12:17 LIKE SHES "JUMPING OUT OF HER SKIN" morphine AdvReac Intermediate DROWSY Verified 01/06/20 12:17 lithium AdvReac Mild "LEVEL CAN Verified 01/06/20 12:17 GET TOO HIGH" benzonatate AdvReac Unknown Patient Unverified 01/06/20 12:17 [From Adryan Small] states contraindication with other pulmonary meds Home Medications Medication Instructions Recorded Confirmed Type albuterol sulfate [Ventolin HFA] 2 puff INHALATION Q6H PRN 12/27/17 01/06/20 History calcitonin (salmon) 1 spray INTRANASAL QAM 12/27/17 01/06/20 History fenofibrate nanocrystallized 48 mg PO QAM 12/27/17 01/06/20 History [Tricor] ferrous sulfate [FerrouSul] 325 mg PO BIDM 12/27/17 01/06/20 History folic acid 1 mg PO QAM 12/27/17 01/06/20 History montelukast [Singulair] 10 mg PO HS 12/27/17 01/06/20 History pantoprazole [Protonix] 40 mg PO BIDM 02/18/18 01/06/20 History magnesium hydroxide [Milk of 30 ml PO HS PRN 03/02/18 01/06/20 History Magnesia] albuterol sulfate 2.5 mg INHALATION TID PRN 07/29/18 01/06/20 History calcium-vitamin D3-vitamin K 1 tab PO BIDM 07/30/18 01/06/20 History tramadol 50 mg PO Q6 PRN 08/20/18 01/06/20 History Januvia 100 mg PO QAM 11/21/18 01/06/20 History acetaminophen [Tylenol Extra 1,000 mg PO TID PRN MDD 2 11/21/18 01/06/20 History Strength] HOURS clozapine [Clozaril] 100 mg PO BIDM 11/21/18 01/06/20 History diclofenac sodium [Voltaren] 2 g TOPICAL QID PRN 11/21/18 01/06/20 History docusate sodium 100 mg PO AMHS 11/21/18 01/06/20 History fluticasone propionate [Flonase 2 spray INTRANASAL QAM 11/21/18 01/06/20 History Allergy Relief] metoprolol tartrate 12.5 mg PO AMHS 11/21/18 01/06/20 History Mucinex 1,200 mg PO AMHS 02/14/19 01/06/20 History cyclobenzaprine 5 mg PO BID PRN 02/14/19 01/06/20 History Trintellix 20 mg PO QAM 03/12/19 01/06/20 History Arnuity Ellipta 1 inh INHALATION QAM 04/12/19 01/06/20 History clotrimazole-betamethasone 1 applic TOPICAL BID 04/12/19 01/06/20 History multivitamin with minerals 1 tab PO QAM 04/12/19 01/06/20 History Rexulti 4 mg PO QAM 10/05/19 01/06/20 History Trelegy Ellipta 1 inh INHALATION QAM 10/05/19 01/06/20 History celecoxib [Celebrex] 100 mg PO BIDM 10/05/19 01/06/20 History famotidine 20 mg PO AMHS 10/05/19 01/06/20 History ketoconazole 1 applic TOPICAL TID 10/05/19 01/06/20 History loratadine 10 mg PO QDD 10/05/19 01/06/20 History melatonin 5 mg PO HS PRN 10/05/19 01/06/20 History promethazine 6.25 mg PO QID PRN 10/05/19 01/06/20 History sodium chloride [Deep Sea Nasal] 2 spray INTRANASAL TID PRN 10/05/19 01/06/20 History terbinafine HCl 1 applic TOPICAL DIRECTED PRN 10/05/19 01/06/20 History clonazepam See Rx Instructions .ROUTE .COMPLEX 11/15/19 01/06/20 History furosemide [Lasix] 20 mg PO DAILY PRN 11/18/19 01/06/20 History budesonide 1 mg INHALATION BID 01/06/20 01/06/20 History glecaprevir-pibrentasvir [Mavyret] 3 tab PO DAILY 01/06/20 01/07/20 History prednisone 15 mg PO DAILY 01/06/20 01/06/20 History buspirone 15 mg PO BID 01/08/20 01/08/20 History Patient History Medical History (Updated 01/14/20 @ 15:34 by Ana Mccarthy PA-C) Anxiety Chronic back pain Chronic dyspnea Chronic pain history of excessive sedation on narcotics no narcotics except for acute / severe pain Chronic respiratory failure with hypoxia, on home O2 therapy COPD (chronic obstructive pulmonary disease) Depression Diabetes mellitus type 2, controlled Do not resuscitate status Discussed with pt + sister 11/14. No CPR. Temporary intubation / mechanical vent OK. DVT (deep venous thrombosis) right leg--no blood thinners GERD (gastroesophageal reflux disease) Headache above the eye region Hepatitis C History of anesthesia reaction did not receive enough anesthesia during a colonoscopy and felt everything Orthostatic hypotension Osteoarthritis Pulmonary fibrosis Schizophrenia Spinal stenosis Surgical History History of open reduction and internal fixation (ORIF) procedure left femur--rods in place History of thoracic spinal fusion fusion and decompression t6-t12 History of tooth extraction all teeth removed History of total abdominal hysterectomy and bilateral salpingo-oophorectomy History of vascular access device Aport on right side Family History Grandmother (Paternal) Family hx of colon cancer Social History Smoking Status: Former smoker Tobacco Type: Cigarettes Second Hand Exposure: No; Do You Dip or Chew Tobacco: No; Tobacco Cessation Education Requested by Patient: No Hx Alcohol Use: No Hx Substance Use: Yes Last Used Substance: Unknown Substance Use Type Other:: No longer Preferred Language: Luxembourgish Communication Ability: Effective Visual Impairment: No Limitations [employer] Boat [employer] Barge Loader Required: No Beliefs That Will Affect Care: None and Spiritual marital status: Single Current Living Situation: Family Current Living Situation Comment: Pt. lives with mother and sister. Other Information That Helps Us Care for You: No Feels Safe at Home: Yes Safety Concerns: Feels Safe At This Time Assistive Devices: BiPap and Oxygen - Continuous Physical Exam Physical Exam: Physical Exam: Constitutional: appearance over nourished, ill appearing Ears, Nose, Mouth and Throat: mucous membranes moist, no injection and skin normal, eyes normal Cardiovascular: normal S-1 and S-2 and regular rate and rhythm Respiratory: course breath sounds Musculoskeletal: decrease distal pulses Skin: no stigmata of neurocutaneous disease noted and normal and intact Eyes: extraocular muscles intact (EOMI) and pupils equal, round and reactive to light (PERRL) NEUROLOGIC EXAMINATION: Mental status: Alert and interactive Oriented to person Speech fluent with no evidence of aphasia Cranial Nerves facial symmetry, eye brow raise symmetric Reflexes: Deep tendon reflexes were symmetrical and graded 2/5. Sensory: light and cool intact Coordination: finger to nose Gait/Stance: Posture lying in bed with c pap Motor: Negative for pronator drift of out stretched arms with eyes closed. Strength: hand family living educator biceps triceps bilaterally 5/5, hip flex plantar flex ext 5/5 bilaterally Results & Data ([facility]) Vital Signs (Past 12 Hours) Vital Signs Temp Pulse Pulse Resp BP BP Pulse Ox 01/14/20 15:06 36.5 C 96 H 20 108/73 96 01/14/20 13:32 95 H 18 97 01/14/20 11:46 36.4 C L 92 H 22 104/70 91 01/14/20 07:30 73 01/14/20 07:25 36.5 C 94 H 20 119/81 97 01/14/20 07:19 88 18 97 11/18/20 03:45 36.5 C 73 20 138/99 93 Laboratory Results Abnormal lab results 01/13/20 01/13/20 01/14/20 Range/Units 16:43 19:59 07:48 POC Glucose 202 H 137 H 104 H (70-99) mg/dl 01/14/20 Range/Units 11:43 POC Glucose 177 H (70-99) mg/dl Diagnostic Findings CXR- Chronic interstitial lung disease re demonstrated. Cardiomegaly with progressively worsened bilateral reticular opacities, possibly reflective of superimposed mild pulmonary edema or pneumonitis. (1) COPD (chronic obstructive pulmonary disease) COPD type: COPD with acute exacerbation Qualified Code(s): J44.1 - Chronic obstructive pulmonary disease with (acute) exacerbation
[2020-01-14] MEDS: LORATADINE 10 MG TAB PO SCH (16:45)
--- NOTE | 2020-01-14 18:13 | Hospitalist Progress Note ---
Date of Service January 14, 2020 Assessment & Plan (1) Acute and chronic respiratory failure with hypoxia: per Dr. Bell notes: Chronic hypoxic respiratory failure. Underlying pulmonary fibrosis and COPD. Presented with cough and worsening dyspnea. Chest x-ray showed chronic interstitial changes. SARS-CoV-2 PCR negative. Seen by Pulmonary Medicine. Procalcitonin and C-reactive protein normal. Sputum culture 01/07 with scant growth. Possible superimposed pulmonary edema on chest x-ray, but pro-BNP normal. Taper steroids to usual maintenance dose (prednisone 15 mg daily) as soon as able. Completed course of doxycycline. Developed worsening chest congestion and cough productive of thick green sputum. Sputum culture grew Pseudomonas, resistant to quinolones. Added IV cefepime- today is day #4. Expected course of therapy 7 - 10 days. Continue percussion therapy. Continue supplemental O2 + BiPAP as needed. 01/13 remains on 4 L NC- baseline breathing improving gradually on Cefepime Day 5 continue Prednisone 30mg po daily added Levalbuterol q6h continue Ellipta (2) Acute exacerbation of chronic obstructive pulmonary disease (COPD): As noted above. (3) Pulmonary fibrosis: As noted above. (4) GERD (gastroesophageal reflux disease): Continue famotidine and PPI. (5) Diabetes mellitus type 2, controlled: Diet-controlled. Hgb A1c 6.2 on 11/16/19. on Insulin Sliding Scale (6) Hepatitis C: Continue glecaprevir / pibrentasvir. (7) Depression: Management per Psychiatry. (8) Anxiety: Management per Psychiatry. (9) Schizophrenia: Management per Psychiatry. (10) Asymptomatic bacteriuria: per Dr. Bell' notes: Urine culture growing Pseudomonas aeruginosa. No fever or dysuria. Chronic urinary incontinence. UA negative for nitrites, 1+ leukocyte esterase, 1-5 WBC's, many epithelial cells. Doubt UTI- colonization or contamination more likely. Antibiotic therapy not indicated for UTI (although now receiving cefepime for lower resp tract infection). (11) DVT prophylaxis: SQ enoxaparin. Ambulate. (12) Discharge planning issues: Anticipated discharge to home with home health services. Family Medicine follow-up with Dr. Adam. Follow-up with Pulmonary Medicine. Admission and Anticipated Discharge Date Admission Date: January 06, 2020 Subjective ff up for acute on chronic respiratory failure, etc seen resting in bed, comfortable, sitting up on 4 liters via nasal cannula states she feels that she is gradually improving less dyspnea and cough no fever/chills no chest pain, palpitations, dizziness reports recurrent right sided temporoparietal headache, somewhat worse with bright light no other neuro symptoms Review of Systems Review of Systems: All systems reviewed & are unremarkable except as noted in Subjective Physical Exam Physical Exam: General- oriented x 3, not in distress, speaks in sentences with no effort or accessory muscle use Eyes- anicteric Neck- no JVD Lungs- (+) mild wheezing bilaterally good air entry BL no crackles/wheezing Heart- normal rate, regular rhythm; no murmurs Abdomen- normal bowel sounds, nondistended, soft, nontender Extremities- no pretibial edema, no calf tenderness Neuro- alert, oriented x 3; no gross focal neurologic deficits Skin- warm & dry Results & Data Results & Data ([facility]) Vital Signs (Past 12 Hours) Vital Signs Temp Pulse Pulse Resp BP BP Pulse Ox 01/14/20 16:35 95 H 01/14/20 15:06 36.5 C 96 H 20 108/73 96 01/14/20 13:32 95 H 18 97 01/14/20 11:46 36.4 C L 92 H 22 104/70 91 01/14/20 07:30 73 01/14/20 07:25 36.5 C 94 H 20 119/81 97 01/14/20 07:19 88 18 97 Laboratory Results Laboratory Results - last 24 hr 01/13/20 01/14/20 01/14/20 19:59 07:48 11:43 POC Glucose 137 H 104 H 177 H 01/14/20 16:49 POC Glucose 192 H (1) Schizophrenia Schizophrenia type: unspecified Qualified Code(s): F20.9 - Schizophrenia, unspecified
[2020-01-14] MEDS: PIBRENTASVIR PO SCH (18:16)
[2020-01-14] MEDS: GLECAPREVIR PO SCH (18:16)
[2020-01-14] MEDS: ACETAMINOPHEN 500 MG TAB PO PRN (18:25)
[2020-01-14] MEDS: MONTELUKAST SODIUM 10 MG TABLET PO SCH (20:17)
[2020-01-14] MEDS: clonazePAM 0.5 MG TAB PO SCH (20:21)
[2020-01-14] MEDS ORDERED: PROMETHAZINE HCL 6.25 MG in SODIUM CHLORIDE 0.9% 50 ML IV PRN (23:45)
[2020-01-15] MEDS: LEVALBUTEROL 1.25MG/0.5ML NEB NEB SCH ×4 (00:37→20:26)
[2020-01-15] MEDS: BUDESONIDE 0.5 MG/2 ML VIAL (PULMICORT) INH SCH ×2 (07:22→20:26)
[2020-01-15] MEDS: CEFEPIME 2,000 MG in SYRINGE 0 ML IV SCH ×2 (08:49→20:04)
[2020-01-15] MEDS: HEPARIN 100 UNIT/ML 5ML FLUSH FLUSH PRN (08:49)
[2020-01-15] MEDS: clonazePAM 0.25 MG TAB PO SCH ×2 (08:50→15:18)
[2020-01-15] MEDS: CEROVITE ADV FORMULA TAB PO SCH (08:50)
[2020-01-15] MEDS: CELECOXIB 100 MG CAP PO SCH ×2 (08:50→16:53)
[2020-01-15] MEDS: traMADol HCL 50 MG TABLET PO PRN ×3 (08:50→21:15)
[2020-01-15] MEDS: CALCITONIN SALMON NA 200 IU/AC 3.7 ML BTL SCH (08:51)
[2020-01-15] MEDS: FERROUS SULFATE 325 MG TAB PO SCH ×2 (08:51→16:52)
[2020-01-15] MEDS: FLUTICASONE PROPIONATE NA SPR 16 GM BTL SCH (08:51)
[2020-01-15] MEDS: PANTOprazole 40 MG TAB PO SCH ×2 (08:51→16:52)
[2020-01-15] MEDS: CALCIUM 600MG + VIT D 400 IU TAB PO SCH ×2 (08:51→16:53)
[2020-01-15] MEDS: predniSONE 10 MG TABLET PO SCH (08:52)
[2020-01-15] MEDS: KETOCONAZOLE 2% CR 15 GM TUBE EXT SCH ×3 (08:52→20:06)
[2020-01-15] MEDS: FAMOTIDINE 20 MG TAB PO SCH ×2 (08:52→20:05)
[2020-01-15] MEDS: CLOTRIMAZOLE/BETAMETHASONE CR 15 GM TUBE EXT SCH ×2 (08:52→20:06)
[2020-01-15] MEDS: guaiFENesin 600 MG TABCR PO SCH ×2 (08:53→20:04)
[2020-01-15] MEDS: METOPROLOL TARTRATE 25 MG TAB PO SCH ×2 (08:53→21:16)
[2020-01-15] MEDS: FENOFIBRATE NANOCRYSTALLIZED 48 MG TABLET PO SCH (08:54)
[2020-01-15] MEDS: busPIRone 15 MG TAB PO SCH ×2 (08:54→20:04)
[2020-01-15] MEDS: FOLIC ACID 1 MG TAB PO SCH (08:54)
[2020-01-15] MEDS: DOCUSATE SODIUM 100 MG CAP PO SCH ×2 (08:55→21:15)
[2020-01-15] MEDS: VORTIOXETINE HYDROBROMIDE PO SCH (08:55)
[2020-01-15] MEDS: FLUTICASONE FUROATE 100MCG 14 PUFFS/INHALER INH SCH (08:55)
[2020-01-15] MEDS: cloZAPine 100 MG TAB PO SCH ×2 (08:55→16:53)
[2020-01-15] MEDS: UMECLIDINIUM/VILANTEROL 62.5/25MCG 7 PUFFS/INHALER INH SCH (08:55)
[2020-01-15] MEDS: ENOXAPARIN INJ 40 MG/0.4 ML SYR SQ SCH (08:55)
[2020-01-15] MEDS: BREXPIPRAZOLE PO SCH (08:56)
[2020-01-15] MEDS: INSULIN GLARGINE SOLOSTAR 100 UNITS/ML 3 ML PEN SC SCH ×2 (08:59→20:07)
[2020-01-15] MEDS: INSULIN ASPART 100 UNITS/ML 3 ML PEN SC SCH ×4 (09:01→20:08)
[2020-01-15] MEDS: POLYETHYLENE (MIRALAX) 17 GM PACK PO PRN (09:07)
[2020-01-15] MEDS: CYCLOBENZAPRINE HCL 5 MG TAB PO PRN ×2 (13:30→19:26)
[2020-01-15] MEDS: LORATADINE 10 MG TAB PO SCH (16:52)
--- NOTE | 2020-01-15 18:29 | CT Scan Report ---
HEAD CT NONCONTRAST CT DOSE: 921.40 mGy.cm HISTORY: persistent headache TECHNIQUE: Multiaxial CT images of the head were performed without the use of intravenous contrast. A utomated exposure control was utilized for this study. A dose lowering technique was utilized adheri ng to the principles of ALARA. Comparison: Head CT 11/21/2018. Findings: Mild motion artifact. The paranasal sinuses and mastoid air cells are clear. The calvarium and skull base are intact. The ventricles and sulci are within normal limits. There is no mass, hemat gabe, midline shift, or acute infarct. Impression: Mild motion artifact. No definite acute intracranial abnormality. ACT 112: Negative or not required by law. Electronically signed by: Uriel Talley M.D. 01/15/2020 6:28 PM
[2020-01-15] MEDS: GLECAPREVIR PO SCH (18:47)
[2020-01-15] MEDS: PIBRENTASVIR PO SCH (18:47)
--- NOTE | 2020-01-15 19:09 | Hospitalist Progress Note ---
Date of Service January 15, 2020 Assessment & Plan (1) Acute and chronic respiratory failure with hypoxia: per Dr. Bell notes: Chronic hypoxic respiratory failure. Underlying pulmonary fibrosis and COPD. Presented with cough and worsening dyspnea. Chest x-ray showed chronic interstitial changes. SARS-CoV-2 PCR negative. Seen by Pulmonary Medicine. Procalcitonin and C-reactive protein normal. Sputum culture 01/07 with scant growth. Possible superimposed pulmonary edema on chest x-ray, but pro-BNP normal. Taper steroids to usual maintenance dose (prednisone 15 mg daily) as soon as able. Completed course of doxycycline. Developed worsening chest congestion and cough productive of thick green sputum. Sputum culture grew Pseudomonas, resistant to quinolones. Added IV cefepime- today is day #4. Expected course of therapy 7 - 10 days. Continue percussion therapy. Continue supplemental O2 + BiPAP as needed. 01/15/2020 remains on 4 L NC- baseline breathing improving gradually but still has significant bilateral diffuse wheezing Nebulized epidural every 6 hours already ordered on Cefepime Day 6 continue Prednisone 30mg po daily continue usual Ellipta will reconsult pulmonary service in light of persistent bilateral wheezing Recurrent headaches Evaluated by neurology service Recommend Zanaflex as needed once respiratory status stable, after further discussion as an outpatient Patient requesting CT head, reports history of fall a few weeks ago (2) Acute exacerbation of chronic obstructive pulmonary disease (COPD): As noted above. (3) Pulmonary fibrosis: As noted above. (4) GERD (gastroesophageal reflux disease): Continue famotidine and PPI. (5) Diabetes mellitus type 2, controlled: Diet-controlled. Hgb A1c 6.2 on 11/16/19. on Insulin Sliding Scale (6) Hepatitis C: Continue glecaprevir / pibrentasvir. (7) Depression: Management per Psychiatry. (8) Anxiety: Management per Psychiatry. (9) Schizophrenia: Management per Psychiatry. (10) Asymptomatic bacteriuria: per Dr. Bell' notes: Urine culture growing Pseudomonas aeruginosa. No fever or dysuria. Chronic urinary incontinence. UA negative for nitrites, 1+ leukocyte esterase, 1-5 WBC's, many epithelial cells. Doubt UTI- colonization or contamination more likely. Antibiotic therapy not indicated for UTI (although now receiving cefepime for lower resp tract infection). (11) DVT prophylaxis: SQ enoxaparin. Ambulate. (12) Discharge planning issues: Anticipated discharge to home with home health services. Family Medicine follow-up with Dr. Adam. Follow-up with Pulmonary Medicine. Admission and Anticipated Discharge Date Admission Date: January 06, 2020 Subjective Follow-up for COPD exacerbation, acute on chronic hypoxic respiratory failure, etc. Seen sitting up in bed, comfortable, not in distress on 4 L of oxygen via nasal cannula States she feels about the same as yesterday Still has intermittent cough, nonproductive Has intermittent headaches, but no nausea vomiting, no focal neurologic deficits Denies chest pain, palpitations, dizziness, abdominal pain No other symptoms Review of Systems Review of Systems: All systems reviewed & are unremarkable except as noted in Subjective Physical Exam Physical Exam: General- oriented x 3, not in distress, speaks in sentences with no effort or accessory muscle use Eyes- anicteric Neck- no JVD Lungs-positive scattered expiratory wheezing, good air entry bilaterally Heart- normal rate, regular rhythm; no murmurs Abdomen- normal bowel sounds, nondistended, soft, nontender Extremities- no pretibial edema, no calf tenderness Neuro- alert, oriented x 3; no gross focal neurologic deficits Skin- warm & dry Results & Data Results & Data ([facility]) Vital Signs (Past 12 Hours) Vital Signs Temp Pulse Pulse Resp BP Pulse Ox 01/15/20 14:49 36.4 C L 106 H 20 128/88 90 01/15/20 14:47 100 H 01/15/20 13:16 105 H 18 94 01/15/20 11:49 36.7 C 97 H 20 117/87 97 01/15/20 07:30 74 01/15/20 07:22 76 22 98 01/15/20 07:20 36.5 C 62 18 131/83 97 (1) Schizophrenia Schizophrenia type: unspecified Qualified Code(s): F20.9 - Schizophrenia, unspecified
[2020-01-15] MEDS: clonazePAM 0.5 MG TAB PO SCH (20:04)
[2020-01-15] MEDS: MONTELUKAST SODIUM 10 MG TABLET PO SCH (20:05)
[2020-01-16] MEDS: ACETAMINOPHEN 500 MG TAB PO PRN ×2 (00:17→16:52)
[2020-01-16] MEDS: LEVALBUTEROL 1.25MG/0.5ML NEB NEB SCH ×4 (00:52→19:22)
[2020-01-16] MEDS: MELATONIN 3 MG TAB PO PRN ×2 (01:45→20:36)
[2020-01-16] MEDS: BUDESONIDE 0.5 MG/2 ML VIAL (PULMICORT) INH SCH ×2 (07:17→19:22)
[2020-01-16] MEDS: CEROVITE ADV FORMULA TAB PO SCH (08:12)
[2020-01-16] MEDS: FLUTICASONE PROPIONATE NA SPR 16 GM BTL SCH (08:13)
[2020-01-16] MEDS: PANTOprazole 40 MG TAB PO SCH ×2 (08:13→16:49)
[2020-01-16] MEDS: CALCIUM 600MG + VIT D 400 IU TAB PO SCH ×2 (08:13→16:48)
[2020-01-16] MEDS: cloZAPine 100 MG TAB PO SCH ×2 (08:13→16:48)
[2020-01-16] MEDS: FERROUS SULFATE 325 MG TAB PO SCH ×2 (08:13→16:49)
[2020-01-16] MEDS: CELECOXIB 100 MG CAP PO SCH ×2 (08:13→16:48)
[2020-01-16] MEDS: CALCITONIN SALMON NA 200 IU/AC 3.7 ML BTL SCH (08:14)
[2020-01-16] MEDS: predniSONE 10 MG TABLET PO SCH (08:14)
[2020-01-16] MEDS: FLUTICASONE FUROATE 100MCG 14 PUFFS/INHALER INH SCH (08:14)
[2020-01-16] MEDS: FOLIC ACID 1 MG TAB PO SCH (08:14)
[2020-01-16] MEDS: UMECLIDINIUM/VILANTEROL 62.5/25MCG 7 PUFFS/INHALER INH SCH (08:14)
[2020-01-16] MEDS: guaiFENesin 600 MG TABCR PO SCH ×2 (08:15→21:03)
[2020-01-16] MEDS: FENOFIBRATE NANOCRYSTALLIZED 48 MG TABLET PO SCH (08:15)
[2020-01-16] MEDS: FAMOTIDINE 20 MG TAB PO SCH ×2 (08:15→20:07)
[2020-01-16] MEDS: busPIRone 15 MG TAB PO SCH ×2 (08:15→20:07)
[2020-01-16] MEDS: CEFEPIME 2,000 MG in SYRINGE 0 ML IV SCH ×2 (08:16→20:05)
[2020-01-16] MEDS: HEPARIN 100 UNIT/ML 5ML FLUSH FLUSH PRN (08:16)
[2020-01-16] MEDS: DOCUSATE SODIUM 100 MG CAP PO SCH ×2 (08:17→20:06)
[2020-01-16] MEDS: BREXPIPRAZOLE PO SCH (08:17)
[2020-01-16] MEDS: VORTIOXETINE HYDROBROMIDE PO SCH (08:17)
[2020-01-16] MEDS: METOPROLOL TARTRATE 25 MG TAB PO SCH ×2 (08:17→20:06)
[2020-01-16] MEDS: clonazePAM 0.25 MG TAB PO SCH ×2 (08:18→16:45)
[2020-01-16] MEDS: traMADol HCL 50 MG TABLET PO PRN ×3 (08:18→20:36)
[2020-01-16] MEDS: CLOTRIMAZOLE/BETAMETHASONE CR 15 GM TUBE EXT SCH ×2 (08:19→20:08)
[2020-01-16] MEDS: KETOCONAZOLE 2% CR 15 GM TUBE EXT SCH ×2 (08:19→14:21)
[2020-01-16] MEDS: INSULIN GLARGINE SOLOSTAR 100 UNITS/ML 3 ML PEN SC SCH ×2 (08:20→20:36)
[2020-01-16] MEDS: ENOXAPARIN INJ 40 MG/0.4 ML SYR SQ SCH (08:20)
[2020-01-16] MEDS: INSULIN ASPART 100 UNITS/ML 3 ML PEN SC SCH ×4 (08:21→20:30)
[2020-01-16] MEDS: POLYETHYLENE (MIRALAX) 17 GM PACK PO PRN (08:36)
--- NOTE | 2020-01-16 09:30 | XRay Report ---
XR chest 1V portable HISTORY: 59 years-old Female f/u follow up study in a patient with shortness of breath COMPARISON: Chest radiograph 01/06/2020 TECHNIQUE: Portable AP view of the chest FINDINGS: Cardiomediastinal and hilar silhouettes are unchanged. Hypoinflation. Stable positioning of the right pectoral Bkjrko-m-Humb catheter. No pneumothorax or large pleural effusion. Chronic interstitial david g disease. Superimposed interstitial opacities are redemonstrated. There is moderately improved aerat ion of the right lung base with mildly improved aeration of the left lung base. Degenerative changes of the shoulders and spine. IMPRESSION: 1. Hypoinflation with improved aeration of the right greater than left lung bases. 2. Cardiomegaly. 3. Chronic interstitial lung disease. ACT 112: Negative or not required by law. The above report was generated using voice recognition software. It may contain grammatical, syntax o r spelling errors. Electronically signed by: Jeanmarie Sharp M.D. 01/16/2020 9:28 AM
[2020-01-16] MEDS: CYCLOBENZAPRINE HCL 5 MG TAB PO PRN ×2 (11:54→20:10)
--- NOTE | 2020-01-16 13:18 | Pulmonology Progress Note ---
Date of Service January 16, 2020 Assessment & Plan (1) Acute and chronic respiratory failure with hypoxia: --Acute on chronic hypoxic respiratory failure Multifactorial Patient has underlying interstitial lung disease with traction bronchiectasis bilateral upper lobes as well as honeycombing lower lobes bilaterally, there is some groundglass haziness appreciated upper lobe as well. Patient diastolic CHF as well. BNP 01/16/2020 is 58 Used to be heavy smoker 2013. Patient is already on chronic prednisone she takes 50 mg on a daily basis. I am not quite sure why she is on it chronically. Patient is post doxycycline. Currently on cefepime. --Bronchiectasis Chest vest therapy I will add hypertonic nebulized to be used twice daily along with Mucinex. --Ex-smoker Greater than [id number] smoking history quit in 2013 There is history of COPD patient is on Arnuity and Trelegy. Would recommend to be discharged only on Trelegy. Plan: Chest x-ray from today shows improvement compared to the previous chest x-ray. Patient still has diffuse reticular markings bilaterally and volume loss. Patient's minimal wheezing is because of the underlying lung disease which is end-stage lung disease. I would rather go down on her prednisone to 15 mg on a daily basis. Continue with Mucinex, chest vest therapy as well as hypertonic saline which we re added today. Continue with diuretics. Patient is -4.5 L since yesterday. That might be the reason she is feeling already better. Patient is to follow-up with outpatient pulmonology as well as rheumatology. No further recommendations from pulmonary perspective. Will sign off. Recall if needed. (2) Pulmonary fibrosis: (3) Chronic dyspnea: Admission and Anticipated Discharge Date Admission Date: January 06, 2020 Subjective Patient seen and examined at bedside. No acute distress, no adverse events overnight. Patient states she is feeling better after since prior to coming to the hospital. Shortness of breath has improved. She coughs but does not bring up any phlegm. Complains of mild wheezing. Patient has CPAP at home, she uses inhalers at home. She is on chronic prednisone as well. Denies any chest pain. No dizziness, no headache, no nausea or vomiting. Review of Systems Review of Systems: All systems reviewed & are unremarkable except as noted in Subjective Physical Exam Physical Exam: Constitutional: No acute distress HEENT: EOMI, PERRLA Respiratory system: Decreased air entry bilaterally, positive bilateral Velcro- like crackles lower lobes, no rhonchi, minimal wheeze CVS: S1-S2 positive, no murmurs or gallops, right-sided port Abdomen: Soft, nontender, nondistended, positive bowel sounds x4, obese Extremities: +2 pulses bilaterally radialis/ dorsalis pedis, no cyanosis, no edema Neuro: Awake alert oriented x3 Psych: Normal mood and affect Results & Data Results & Data ([facility]) Vital Signs (Past 12 Hours) Vital Signs Temp Pulse Pulse Resp BP BP Pulse Ox 01/16/20 11:57 36.5 C 90 22 112/75 94 01/16/20 08:16 36.3 C L 106 H 16 115/76 95 01/16/20 07:30 87 01/16/20 07:17 85 18 92 01/13/20 06:11 01/13/20 06:11 PG Care Time/CCT Total # of Minutes Spent Total Time Spent with Patient: Total time spent is greater than 50% in coordination of care (as documented) at patient's floor/unit and/or counseling patient: Coding Level of Care Code 11802 Subseq Hosp Care Lvl 3 Diagnoses Acute and chronic respiratory failure with hypoxia J96.21 Pulmonary fibrosis J84.10 Chronic dyspnea R06.09
[2020-01-16] MEDS: LORATADINE 10 MG TAB PO SCH (16:47)
--- NOTE | 2020-01-16 18:24 | Hospitalist Progress Note ---
Date of Service January 16, 2020 Assessment & Plan (1) Acute and chronic respiratory failure with hypoxia: per Dr. Bell notes: Chronic hypoxic respiratory failure. Underlying pulmonary fibrosis and COPD. Presented with cough and worsening dyspnea. Chest x-ray showed chronic interstitial changes. SARS-CoV-2 PCR negative. Seen by Pulmonary Medicine. Procalcitonin and C-reactive protein normal. Sputum culture 01/07 with scant growth. Possible superimposed pulmonary edema on chest x-ray, but pro-BNP normal. Taper steroids to usual maintenance dose (prednisone 15 mg daily) as soon as able. Completed course of doxycycline. Developed worsening chest congestion and cough productive of thick green sputum. Sputum culture grew Pseudomonas, resistant to quinolones. Added IV cefepime- today is day #4. Expected course of therapy 7 - 10 days. Continue percussion therapy. Continue supplemental O2 + BiPAP as needed. 01/16/2020 remains on 4 L NC- baseline breathing improving gradually but still has significant bilateral diffuse wheezing Pulmonary reconsulted Repeat chest x-ray improving Recommended Mucinex, hypertonic nebs, chest vest therapy Recommend to decrease prednisone to 50 mg daily upon discharge Continue with diuretics Nebulized levalbuterol every 6 hours already ordered on Cefepime Day 7 continue Prednisone 30mg po daily continue usual Ellipta Recurrent headaches Evaluated by neurology service Recommend Zanaflex as needed once respiratory status stable, after further discussion as an outpatient CT head: No acute process (2) Acute exacerbation of chronic obstructive pulmonary disease (COPD): As noted above. (3) Pulmonary fibrosis: As noted above. (4) GERD (gastroesophageal reflux disease): Continue famotidine and PPI. (5) Diabetes mellitus type 2, controlled: Diet-controlled. Hgb A1c 6.2 on 11/16/19. on Insulin Sliding Scale (6) Hepatitis C: Continue glecaprevir / pibrentasvir. (7) Depression: Management per Psychiatry. (8) Anxiety: Management per Psychiatry. (9) Schizophrenia: Management per Psychiatry. (10) Asymptomatic bacteriuria: per Dr. Bell' notes: Urine culture growing Pseudomonas aeruginosa. No fever or dysuria. Chronic urinary incontinence. UA negative for nitrites, 1+ leukocyte esterase, 1-5 WBC's, many epithelial cells. Doubt UTI- colonization or contamination more likely. Antibiotic therapy not indicated for UTI (although now receiving cefepime for lower resp tract infection). (11) DVT prophylaxis: SQ enoxaparin. Ambulate. (12) Discharge planning issues: Anticipated discharge to home with home health services. Family Medicine follow-up with Dr. Adam. Follow-up with Pulmonary Medicine. Admission and Anticipated Discharge Date Admission Date: January 06, 2020 Subjective Follow-up for COPD/bronchiectasis exacerbation Seen resting in bed, comfortable, not in distress States she feels improved today compared to yesterday Less cough Denies headache, chest pain, abdominal pain No other symptoms Review of Systems Review of Systems: All systems reviewed & are unremarkable except as noted in Subjective Physical Exam Physical Exam: General- oriented x 3, not in distress, speaks in sentences with no effort or accessory muscle use Eyes- anicteric Neck- no JVD Lungs-scattered wheezing bilaterally, somewhat improved compared to yesterday Good air entry bilaterally Heart- normal rate, regular rhythm; no murmurs Abdomen- normal bowel sounds, nondistended, soft, nontender Extremities- no pretibial edema, no calf tenderness Neuro- alert, oriented x 3; no gross focal neurologic deficits Skin- warm & dry Results & Data Results & Data ([facility]) Vital Signs (Past 12 Hours) Vital Signs Temp Pulse Pulse Resp BP BP Pulse Ox 01/16/20 17:23 105 H 01/16/20 15:46 36.5 C 91 H 20 116/81 95 01/16/20 13:35 110 H 22 90 01/16/20 11:57 36.5 C 90 22 112/75 94 01/16/20 08:16 36.3 C L 106 H 16 115/76 95 01/16/20 07:30 87 01/16/20 07:17 85 18 92 (1) Schizophrenia Schizophrenia type: unspecified Qualified Code(s): F20.9 - Schizophrenia, unspecified
[2020-01-16] MEDS: GLECAPREVIR PO SCH (18:40)
[2020-01-16] MEDS: PIBRENTASVIR PO SCH (18:40)
[2020-01-16] MEDS: SODIUM CHLOR 7% 4 ML NEB NEB SCH (19:22)
[2020-01-16] MEDS: clonazePAM 0.5 MG TAB PO SCH (20:05)
[2020-01-16] MEDS: MONTELUKAST SODIUM 10 MG TABLET PO SCH (20:06)
[2020-01-16] MEDS ORDERED: guaiFENesin 600 MG TABCR PO SCH (21:00)
[2020-01-17] MEDS: LEVALBUTEROL 1.25MG/0.5ML NEB NEB SCH ×4 (00:23→19:45)
[2020-01-17] MEDS: SODIUM CHLOR 7% 4 ML NEB NEB SCH ×2 (08:01→20:01)
[2020-01-17] MEDS: BUDESONIDE 0.5 MG/2 ML VIAL (PULMICORT) INH SCH ×2 (08:01→19:45)
[2020-01-17] MEDS: BREXPIPRAZOLE PO SCH (08:53)
[2020-01-17] MEDS: INSULIN ASPART 100 UNITS/ML 3 ML PEN SC SCH ×4 (08:53→20:30)
[2020-01-17] MEDS: VORTIOXETINE HYDROBROMIDE PO SCH (08:53)
[2020-01-17] MEDS: UMECLIDINIUM/VILANTEROL 62.5/25MCG 7 PUFFS/INHALER INH SCH (08:54)
[2020-01-17] MEDS: INSULIN GLARGINE SOLOSTAR 100 UNITS/ML 3 ML PEN SC SCH ×2 (08:54→20:27)
[2020-01-17] MEDS: FLUTICASONE FUROATE 100MCG 14 PUFFS/INHALER INH SCH (08:54)
[2020-01-17] MEDS: CALCITONIN SALMON NA 200 IU/AC 3.7 ML BTL SCH (08:55)
[2020-01-17] MEDS: ENOXAPARIN INJ 40 MG/0.4 ML SYR SQ SCH (08:55)
[2020-01-17] MEDS: CLOTRIMAZOLE/BETAMETHASONE CR 15 GM TUBE EXT SCH ×2 (08:55→20:30)
[2020-01-17] MEDS: HEPARIN 100 UNIT/ML 5ML FLUSH FLUSH PRN (08:56)
[2020-01-17] MEDS: clonazePAM 0.25 MG TAB PO SCH ×2 (08:56→15:19)
[2020-01-17] MEDS: METOPROLOL TARTRATE 25 MG TAB PO SCH ×2 (08:56→20:29)
[2020-01-17] MEDS: FLUTICASONE PROPIONATE NA SPR 16 GM BTL SCH (08:56)
[2020-01-17] MEDS: CEFEPIME 2,000 MG in SYRINGE 0 ML IV SCH (08:56)
[2020-01-17] MEDS: traMADol HCL 50 MG TABLET PO PRN ×3 (08:56→21:03)
[2020-01-17] MEDS: busPIRone 15 MG TAB PO SCH ×2 (08:57→20:27)
[2020-01-17] MEDS: FENOFIBRATE NANOCRYSTALLIZED 48 MG TABLET PO SCH (08:57)
[2020-01-17] MEDS: PANTOprazole 40 MG TAB PO SCH ×2 (08:57→16:42)
[2020-01-17] MEDS: FOLIC ACID 1 MG TAB PO SCH (08:57)
[2020-01-17] MEDS: guaiFENesin 600 MG TABCR PO SCH ×2 (08:57→20:30)
[2020-01-17] MEDS: predniSONE 5 MG TAB PO SCH (08:57)
[2020-01-17] MEDS: CALCIUM 600MG + VIT D 400 IU TAB PO SCH ×2 (08:57→16:41)
[2020-01-17] MEDS: DOCUSATE SODIUM 100 MG CAP PO SCH ×2 (08:57→20:27)
[2020-01-17] MEDS: cloZAPine 100 MG TAB PO SCH ×2 (08:57→16:42)
[2020-01-17] MEDS: CEROVITE ADV FORMULA TAB PO SCH (08:57)
[2020-01-17] MEDS: CELECOXIB 100 MG CAP PO SCH ×2 (08:57→16:41)
[2020-01-17] MEDS: FAMOTIDINE 20 MG TAB PO SCH ×2 (08:57→20:31)
[2020-01-17] MEDS: FERROUS SULFATE 325 MG TAB PO SCH ×2 (08:57→16:42)
[2020-01-17] MEDS: ACETAMINOPHEN 500 MG TAB PO PRN (11:24)
[2020-01-17] MEDS: CYCLOBENZAPRINE HCL 5 MG TAB PO PRN (13:06)
[2020-01-17] MEDS: LORATADINE 10 MG TAB PO SCH (16:41)
[2020-01-17] MEDS: GLECAPREVIR PO SCH (18:23)
[2020-01-17] MEDS: PIBRENTASVIR PO SCH (18:23)
--- NOTE | 2020-01-17 19:40 | Hospitalist Progress Note ---
Date of Service January 17, 2020 Assessment & Plan (1) Acute and chronic respiratory failure with hypoxia: (1) Acute and chronic respiratory failure with hypoxia: per Dr. Bell notes: Chronic hypoxic respiratory failure. Underlying pulmonary fibrosis and COPD. Presented with cough and worsening dyspnea. Chest x-ray showed chronic interstitial changes. SARS-CoV-2 PCR negative. Seen by Pulmonary Medicine. Procalcitonin and C-reactive protein normal. Sputum culture 01/07 with scant growth. Possible superimposed pulmonary edema on chest x-ray, but pro-BNP normal. Taper steroids to usual maintenance dose (prednisone 15 mg daily) as soon as able. Completed course of doxycycline. Developed worsening chest congestion and cough productive of thick green sputum. Sputum culture grew Pseudomonas, resistant to quinolones. Added IV cefepime- today is day #4. Expected course of therapy 7 - 10 days. Continue percussion therapy. Continue supplemental O2 + BiPAP as needed. 01/17/2020 remains on 4 L NC- baseline breathing improving gradually but still has significant bilateral diffuse wheezing Pulmonary reconsulted Repeat chest x-ray improving Recommended Mucinex, hypertonic nebs, chest vest therapy Recommend to decrease prednisone to 15 mg daily upon discharge Continue with diuretics --Improving Nebulized levalbuterol every 6 hours already ordered -- on Cefepime Day 8 continue usual Ellipta Recurrent headaches -- Evaluated by neurology service Recommend Zanaflex as needed once respiratory status stable, after further discussion as an outpatient CT head: No acute process (2) Acute exacerbation of chronic obstructive pulmonary disease (COPD): -- As noted above. (3) Pulmonary fibrosis: -- As noted above. (4) GERD (gastroesophageal reflux disease): -- Continue famotidine and PPI. (5) Diabetes mellitus type 2, controlled: -- Diet-controlled. Hgb A1c 6.2 on 11/16/19. on Insulin Sliding Scale (6) Hepatitis C: Continue glecaprevir / pibrentasvir. (7) Depression: Management per Psychiatry. (8) Anxiety: Management per Psychiatry. (9) Schizophrenia: Management per Psychiatry. (10) Asymptomatic bacteriuria: per Dr. Bell' notes: Urine culture growing Pseudomonas aeruginosa. No fever or dysuria. Chronic urinary incontinence. UA negative for nitrites, 1+ leukocyte esterase, 1-5 WBC's, many epithelial cells. Doubt UTI- colonization or contamination more likely. Antibiotic therapy not indicated for UTI (although now receiving cefepime for lower resp tract infection). (11) DVT prophylaxis: SQ enoxaparin. Ambulate. (12) Discharge planning issues: Anticipated discharge to home with home health services. Family Medicine follow-up with Dr. Adam. Follow-up with Pulmonary Medicine. Admission and Anticipated Discharge Date Admission Date: January 06, 2020 Subjective Follow-up for COPD/bronchiectasis exacerbation Seen sitting up in bed, comfortable, on 4 L of oxygen via nasal cannula which is her baseline States breathing is improving now No cough, shortness of breath, chest pain, palpitations, dizziness Has intermittent headaches, mild No other symptoms Review of Systems Review of Systems: All systems reviewed & are unremarkable except as noted in Subjective Physical Exam Physical Exam: General- oriented x 3, not in distress, speaks in sentences with no effort or accessory muscle use Eyes- anicteric Neck- no JVD Lungs-very faint intermittent wheezing bilaterally, good air entry Heart- normal rate, regular rhythm; no murmurs Abdomen- normal bowel sounds, nondistended, soft, nontender Extremities- no pretibial edema, no calf tenderness Neuro- alert, oriented x 3; no gross focal neurologic deficits Skin- warm & dry Results & Data Results & Data ([facility]) Vital Signs (Past 12 Hours) Vital Signs Temp Pulse Pulse Resp BP Pulse Ox 01/17/20 15:18 99 H 01/17/20 14:16 36.0 C L 94 H 20 116/62 98 01/17/20 13:51 70 18 96 01/17/20 11:19 36.7 C 93 H 20 108/69 98 01/17/20 08:15 92 H 18 90 Laboratory Results Laboratory Results - last 24 hr 01/16/20 01/17/20 01/17/20 20:16 07:11 11:01 POC Glucose 115 H 104 H 131 H 01/17/20 16:53 POC Glucose 148 H
[2020-01-17] MEDS: clonazePAM 0.5 MG TAB PO SCH (20:27)
[2020-01-17] MEDS: MONTELUKAST SODIUM 10 MG TABLET PO SCH (20:31)
[2020-01-18] MEDS: LEVALBUTEROL 1.25MG/0.5ML NEB NEB SCH ×4 (00:50→19:16)
[2020-01-18] MEDS: BUDESONIDE 0.5 MG/2 ML VIAL (PULMICORT) INH SCH ×2 (07:13→19:16)
[2020-01-18] MEDS: SODIUM CHLOR 7% 4 ML NEB NEB SCH ×2 (07:13→19:16)
[2020-01-18] MEDS: FENOFIBRATE NANOCRYSTALLIZED 48 MG TABLET PO SCH (08:27)
[2020-01-18] MEDS: CEROVITE ADV FORMULA TAB PO SCH (08:27)
[2020-01-18] MEDS: FOLIC ACID 1 MG TAB PO SCH (08:27)
[2020-01-18] MEDS: METOPROLOL TARTRATE 25 MG TAB PO SCH ×2 (08:27→20:34)
[2020-01-18] MEDS: guaiFENesin 600 MG TABCR PO SCH ×2 (08:28→20:35)
[2020-01-18] MEDS: UMECLIDINIUM/VILANTEROL 62.5/25MCG 7 PUFFS/INHALER INH SCH (08:28)
[2020-01-18] MEDS: ENOXAPARIN INJ 40 MG/0.4 ML SYR SQ SCH (08:29)
[2020-01-18] MEDS: FAMOTIDINE 20 MG TAB PO SCH ×2 (08:29→20:36)
[2020-01-18] MEDS: CLOTRIMAZOLE/BETAMETHASONE CR 15 GM TUBE EXT SCH ×2 (08:30→20:36)
[2020-01-18] MEDS: PANTOprazole 40 MG TAB PO SCH ×2 (08:34→16:51)
[2020-01-18] MEDS: INSULIN ASPART 100 UNITS/ML 3 ML PEN SC SCH ×4 (08:34→20:35)
[2020-01-18] MEDS: INSULIN GLARGINE SOLOSTAR 100 UNITS/ML 3 ML PEN SC SCH ×2 (08:35→20:33)
[2020-01-18] MEDS: predniSONE 5 MG TAB PO SCH (08:38)
[2020-01-18] MEDS: FLUTICASONE PROPIONATE NA SPR 16 GM BTL SCH (08:38)
[2020-01-18] MEDS: BREXPIPRAZOLE PO SCH (08:39)
[2020-01-18] MEDS: CALCITONIN SALMON NA 200 IU/AC 3.7 ML BTL SCH (08:39)
[2020-01-18] MEDS: VORTIOXETINE HYDROBROMIDE PO SCH (08:40)
[2020-01-18] MEDS: DOCUSATE SODIUM 100 MG CAP PO SCH ×2 (08:41→20:33)
[2020-01-18] MEDS: FLUTICASONE FUROATE 100MCG 14 PUFFS/INHALER INH SCH (08:41)
[2020-01-18] MEDS: busPIRone 15 MG TAB PO SCH ×2 (08:41→20:32)
[2020-01-18] MEDS: CELECOXIB 100 MG CAP PO SCH ×2 (08:42→16:49)
[2020-01-18] MEDS: cloZAPine 100 MG TAB PO SCH ×2 (08:43→16:50)
[2020-01-18] MEDS: FERROUS SULFATE 325 MG TAB PO SCH ×2 (08:43→16:50)
[2020-01-18] MEDS: CALCIUM 600MG + VIT D 400 IU TAB PO SCH ×2 (08:43→16:51)
[2020-01-18] MEDS: traMADol HCL 50 MG TABLET PO PRN ×3 (08:56→22:27)
[2020-01-18] MEDS: clonazePAM 0.25 MG TAB PO SCH ×2 (08:57→15:39)
[2020-01-18] MEDS: POLYETHYLENE (MIRALAX) 17 GM PACK PO PRN (11:03)
[2020-01-18] MEDS ORDERED: CHLORASEPTIC 1.4% SOLN 180 ML BTL MT PRN (11:57)
[2020-01-18] MEDS ORDERED: BISMUTH SUBSALICYLATE 262 MG CHEW PO PRN (11:57)
--- NOTE | 2020-01-18 13:34 | Hospitalist Progress Note ---
Date of Service January 18, 2020 Assessment & Plan (1) Acute and chronic respiratory failure with hypoxia: (1) Acute and chronic respiratory failure with hypoxia: per Dr. Bell notes: Chronic hypoxic respiratory failure. Underlying pulmonary fibrosis and COPD. Presented with cough and worsening dyspnea. Chest x-ray showed chronic interstitial changes. SARS-CoV-2 PCR negative. Seen by Pulmonary Medicine. Procalcitonin and C-reactive protein normal. Sputum culture 01/07 with scant growth. Possible superimposed pulmonary edema on chest x-ray, but pro-BNP normal. Taper steroids to usual maintenance dose (prednisone 15 mg daily) as soon as able. Completed course of doxycycline. Developed worsening chest congestion and cough productive of thick green sputum. Sputum culture grew Pseudomonas, resistant to quinolones. Added IV cefepime- today is day #4. Expected course of therapy 7 - 10 days. Continue percussion therapy. Continue supplemental O2 + BiPAP as needed. 01/18/2020 remains on 4 L NC- baseline Pulmonary reconsulted: recommended chest vest therapy, Mucinex, Hypertonic saline nebs Repeat chest x-ray improving Recommend to decrease prednisone to 15 mg daily upon discharge Continue with diuretics -- wheezing mostly resolved clinically improved Nebulized levalbuterol every 6 hours already ordered -- on Cefepime Day 9 continue usual Ellipta Recurrent headaches -- Evaluated by neurology service Recommend Zanaflex as needed once respiratory status stable, after further discussion as an outpatient CT head: No acute process (2) Acute exacerbation of chronic obstructive pulmonary disease (COPD): -- As noted above. (3) Pulmonary fibrosis: -- As noted above. (4) GERD (gastroesophageal reflux disease): -- Continue famotidine and PPI. (5) Diabetes mellitus type 2, controlled: -- Diet-controlled. Hgb A1c 6.2 on 11/16/19. on Insulin Sliding Scale (6) Hepatitis C: Continue glecaprevir / pibrentasvir. (7) Depression: Management per Psychiatry. (8) Anxiety: Management per Psychiatry. (9) Schizophrenia: Management per Psychiatry. (10) Asymptomatic bacteriuria: per Dr. Bell' notes: Urine culture growing Pseudomonas aeruginosa. No fever or dysuria. Chronic urinary incontinence. UA negative for nitrites, 1+ leukocyte esterase, 1-5 WBC's, many epithelial cells. Doubt UTI- colonization or contamination more likely. Antibiotic therapy not indicated for UTI (although now receiving cefepime for lower resp tract infection). (11) DVT prophylaxis: SQ enoxaparin. Ambulate. (12) Discharge planning issues: Anticipated discharge to home with home health services. Family Medicine follow-up with Dr. Adam. Follow-up with Pulmonary Medicine. Admission and Anticipated Discharge Date Admission Date: January 06, 2020 Subjective ff up for COPD, Bronchiectasis exacerbation seen resting in bed, comfortable watching TV states breathing continues to improve no cough, chest pain, palpitations no other symptoms Review of Systems Review of Systems: All systems reviewed & are unremarkable except as noted in Subjective Physical Exam Physical Exam: General- oriented x 3, not in distress, speaks in sentences with no effort or accessory muscle use Eyes- anicteric Neck- no JVD Lungs- intermittent faint wheeze on the right clear on the left Heart- normal rate, regular rhythm; no murmurs Abdomen- normal bowel sounds, nondistended, soft, nontender Extremities- no pretibial edema, no calf tenderness Neuro- alert, oriented x 3; no gross focal neurologic deficits Skin- warm & dry Results & Data Results & Data ([facility]) Vital Signs (Past 12 Hours) Vital Signs Temp Pulse Pulse Resp BP BP Pulse Ox 01/18/20 13:23 103 H 18 93 01/18/20 11:37 36.3 C L 98 H 22 127/82 95 01/18/20 07:56 36.5 C 95 H 22 108/73 90 01/18/20 07:00 88 01/18/20 04:00 36.3 C L 86 19 117/66 90 01/18/20 01:42 83 Laboratory Results Laboratory Results - last 24 hr 01/17/20 01/17/20 01/18/20 16:53 20:18 07:11 POC Glucose 148 H 249 H 97 01/18/20 11:34 POC Glucose 96
[2020-01-18] MEDS: LORATADINE 10 MG TAB PO SCH (16:50)
[2020-01-18] MEDS: HEPARIN 100 UNIT/ML 5ML FLUSH FLUSH PRN (16:58)
[2020-01-18] MEDS: GLECAPREVIR PO SCH (20:30)
[2020-01-18] MEDS: PIBRENTASVIR PO SCH (20:30)
[2020-01-18] MEDS: MONTELUKAST SODIUM 10 MG TABLET PO SCH (20:36)
[2020-01-18] MEDS: clonazePAM 0.5 MG TAB PO SCH (20:48)
[2020-01-18] MEDS: ACETAMINOPHEN 500 MG TAB PO PRN (22:32)
[2020-01-19] MEDS: MELATONIN 3 MG TAB PO PRN (00:07)
[2020-01-19] MEDS: LEVALBUTEROL 1.25MG/0.5ML NEB NEB SCH ×3 (01:31→13:13)
[2020-01-19] MEDS: CYCLOBENZAPRINE HCL 5 MG TAB PO PRN ×2 (02:49→13:27)
[2020-01-19] MEDS: SODIUM CHLOR 7% 4 ML NEB NEB SCH (07:05)
[2020-01-19] MEDS: BUDESONIDE 0.5 MG/2 ML VIAL (PULMICORT) INH SCH (07:05)
[2020-01-19] MEDS: FLUTICASONE FUROATE 100MCG 14 PUFFS/INHALER INH SCH (07:58)
[2020-01-19] MEDS: UMECLIDINIUM/VILANTEROL 62.5/25MCG 7 PUFFS/INHALER INH SCH (07:58)
[2020-01-19] MEDS: FLUTICASONE PROPIONATE NA SPR 16 GM BTL SCH (08:01)
[2020-01-19] MEDS: VORTIOXETINE HYDROBROMIDE PO SCH (08:01)
[2020-01-19] MEDS: ENOXAPARIN INJ 40 MG/0.4 ML SYR SQ SCH (08:02)
[2020-01-19] MEDS: BREXPIPRAZOLE PO SCH (08:02)
[2020-01-19] MEDS: clonazePAM 0.25 MG TAB PO SCH ×2 (08:03→15:12)
[2020-01-19] MEDS: CLOTRIMAZOLE/BETAMETHASONE CR 15 GM TUBE EXT SCH (08:03)
[2020-01-19] MEDS: CALCITONIN SALMON NA 200 IU/AC 3.7 ML BTL SCH (08:04)
[2020-01-19] MEDS: INSULIN ASPART 100 UNITS/ML 3 ML PEN SC SCH ×2 (08:05→13:26)
[2020-01-19] MEDS: predniSONE 5 MG TAB PO SCH (08:09)
[2020-01-19] MEDS: CELECOXIB 100 MG CAP PO SCH (08:09)
[2020-01-19] MEDS: guaiFENesin 600 MG TABCR PO SCH (08:09)
[2020-01-19] MEDS: FENOFIBRATE NANOCRYSTALLIZED 48 MG TABLET PO SCH (08:09)
[2020-01-19] MEDS: PANTOprazole 40 MG TAB PO SCH (08:09)
[2020-01-19] MEDS: CALCIUM 600MG + VIT D 400 IU TAB PO SCH (08:10)
[2020-01-19] MEDS: busPIRone 15 MG TAB PO SCH (08:10)
[2020-01-19] MEDS: FOLIC ACID 1 MG TAB PO SCH (08:10)
[2020-01-19] MEDS: FAMOTIDINE 20 MG TAB PO SCH (08:10)
[2020-01-19] MEDS: CEROVITE ADV FORMULA TAB PO SCH (08:10)
[2020-01-19] MEDS: METOPROLOL TARTRATE 25 MG TAB PO SCH (08:11)
[2020-01-19] MEDS: cloZAPine 100 MG TAB PO SCH (08:12)
[2020-01-19] MEDS: FERROUS SULFATE 325 MG TAB PO SCH (08:12)
[2020-01-19] MEDS: DOCUSATE SODIUM 100 MG CAP PO SCH (08:12)
[2020-01-19] MEDS: INSULIN GLARGINE SOLOSTAR 100 UNITS/ML 3 ML PEN SC SCH (08:13)
[2020-01-19] MEDS: traMADol HCL 50 MG TABLET PO PRN ×2 (08:15→15:12)
[2020-01-19] MEDS: DICLOFENAC SOD 1% GEL 100 GM TUBE EXT PRN (08:24)
[2020-01-19] MEDS: HEPARIN 100 UNIT/ML 5ML FLUSH FLUSH PRN (11:19)
--- NOTE | 2020-01-19 14:22 | Hospitalist Progress Note ---
Date of Service January 19, 2020 Assessment & Plan (1) Acute and chronic respiratory failure with hypoxia: (1) Acute and chronic respiratory failure with hypoxia: per Dr. Bell notes: Chronic hypoxic respiratory failure. Underlying pulmonary fibrosis and COPD. Presented with cough and worsening dyspnea. Chest x-ray showed chronic interstitial changes. SARS-CoV-2 PCR negative. Seen by Pulmonary Medicine. Procalcitonin and C-reactive protein normal. Sputum culture 01/07 with scant growth. Possible superimposed pulmonary edema on chest x-ray, but pro-BNP normal. Completed course of doxycycline. Developed worsening chest congestion and cough productive of thick green sputum. Sputum culture grew Pseudomonas, resistant to quinolones--> cefepime started 01/19/2020 Patient continued to improve with course of cefepime IV-received for 10 days However, wheezing persisted, semiconductor manufacturing technician reconsulted-Dr. Osborn recommended chest vest therapy, Mucinex, Hypertonic saline nebs Repeat chest x-ray improving Wheezing resolved Audit Intern recommend to decrease prednisone to 15 mg daily upon discharge Continue bronchodilator regimen Follow-up with pulmonology clinic in 2 weeks Recurrent headaches -- Evaluated by neurology service Consider Zanaflex 4 mg nightly as needed once respiratory status stable, can be discussed further during outpatient neurology clinic follow-up CT head: No acute process (2) Acute exacerbation of chronic obstructive pulmonary disease (COPD): -- As noted above. (3) Pulmonary fibrosis: -- As noted above. (4) GERD (gastroesophageal reflux disease): -- Continue famotidine and PPI. (5) Diabetes mellitus type 2, controlled: -- Diet-controlled. Hgb A1c 6.2 on 11/16/19. Placed on insulin Sliding Scale (6) Hepatitis C: Continue glecaprevir / pibrentasvir. (7) Depression: Psychiatrist consulted for suicidality after patient verbalized self-harm statements to staff Inpatient psychiatric treatment not recommended Recommend to continue usual regimen and closely follow-up with a psychiatrist as an outpatient During the course of admission, the patient no longer had suicidal ideations (8) Anxiety: Management per Psychiatry. (9) Schizophrenia: Management per Psychiatry. (10) Asymptomatic bacteriuria: per Dr. Bell' notes: Urine culture growing Pseudomonas aeruginosa. No fever or dysuria. Chronic urinary incontinence. UA negative for nitrites, 1+ leukocyte esterase, 1-5 WBC's, many epithelial cells. Doubt UTI- colonization or contamination more likely. Antibiotic therapy not indicated for UTI (although now receiving cefepime for lower resp tract infection). (11) DVT prophylaxis: SQ enoxaparin was given Ambulate. (12) Discharge planning issues: discharge to home with home health services. Family Medicine follow-up with Dr. Adam. Follow-up with Pulmonary Medicine. Follow up with psychiatrist Follow-up with neurologist Admission and Anticipated Discharge Date Admission Date: January 06, 2020 Subjective Follow-up for COPD/bronchiectasis exacerbation Seen resting in bed, comfortable, sitting up, in good spirits On 4 L of nasal cannula which is her baseline States he feels much better overall Denies shortness of breath, cough, chest pain, palpitations, dizziness No other symptoms States he is ready regular discharge today Review of Systems Review of Systems: All systems reviewed & are unremarkable except as noted in Subjective Physical Exam Physical Exam: General- oriented x 3, not in distress, speaks in sentences with no effort or accessory muscle use Eyes- anicteric Neck- no JVD Lungs- clear breath sounds bilaterally, no wheezing, no crackles noted Heart- normal rate, regular rhythm; no murmurs Abdomen- normal bowel sounds, nondistended, soft, nontender Extremities- no pretibial edema, no calf tenderness Neuro- alert, oriented x 3; no gross focal neurologic deficits Skin- warm & dry Results & Data Results & Data ([facility]) Vital Signs (Past 12 Hours) Vital Signs Temp Pulse Pulse Resp BP BP Pulse Ox 01/19/20 13:14 105 H 19 94 01/19/20 11:50 36.4 C L 89 22 110/75 100 01/19/20 07:38 36.5 C 99 H 20 126/85 90 01/19/20 07:35 80 01/19/20 07:06 75 18 89 L 01/19/20 04:00 36.2 C L 81 18 115/76 95
--- NOTE | 2020-01-19 14:45 | Discharge Summary ---
Date of Service January 19, 2020 Admission HPI Per Admitting Provider 59 years old female with past medical history of type 2 diabetes, esophageal dysmotility, GERD, CKD stage III, osteoporosis, depression, schizoaffective disorders, tobacco abuse, chronic hypoxic respiratory failure due to underlying COPD + pulmonary fibrosis on 4-8 L [place] oxygen presented to the ER with worsening shortness of breath. Patient said since discharge from the hospital back in October she continued to have worsening shortness of breath. She said that she developed shortness of breath with minimal exertion. She said sometime just sitting or laying down she has shortness of breath. She has been on supplemental oxygen since diagnosed with COVID 19. She said that she has been having productive cough with yellowish sputum. Pt said that she had suicidal thought due to her health condition becausde sometimes she had very hard time to breath. Currently denies any chest pain, palpitation, dizziness, fever and chills. Admission Exam Per Admitting Provider General- No acute distress Head- atraumatic Eyes- PERRL, EOMI, ENT- oropharynx clear Neck- supple, no JVD Lungs- clear to auscultation Heart- +tachycardia, +wheezing Abdomen- normal bowel sounds, soft, nontender Extremities- no calf tenderness Neuro- alert, oriented x 3; PERRL, EOMI; no facial palsy; no dysarthria Skin- warm & dry Principal Diagnosis COPD/BRONCHIECTASIS EXACERBATION, ACUTE ON CHRONIC HYPOXIC RESPIRATORY FAILURE Discharge Exam General- oriented x 3, not in distress, speaks in sentences with no effort or accessory muscle use Eyes- anicteric Neck- no JVD Lungs- clear breath sounds bilaterally, no wheezing, no crackles noted Heart- normal rate, regular rhythm; no murmurs Abdomen- normal bowel sounds, nondistended, soft, nontender Extremities- no pretibial edema, no calf tenderness Neuro- alert, oriented x 3; no gross focal neurologic deficits Skin- warm & dry Discharge Data Allergies Allergy/AdvReac Type Severity Reaction Status Date / Time hydroxyzine Allergy Unknown UNKNOWN Verified 01/06/20 12:17 fluphenazine AdvReac Intermediate confusion Verified 01/06/20 12:17 haloperidol AdvReac Intermediate "MAKES ME Verified 01/06/20 12:17 GO INTO BLACKOUT" hydrocodone AdvReac Intermediate DROWSY Verified 01/06/20 12:17 molindone AdvReac Intermediate PT FEELS Verified 01/06/20 12:17 LIKE SHES "JUMPING OUT OF HER SKIN" morphine AdvReac Intermediate DROWSY Verified 01/06/20 12:17 lithium AdvReac Mild "LEVEL CAN Verified 01/06/20 12:17 GET TOO HIGH" benzonatate AdvReac Unknown Patient Unverified 01/06/20 12:17 [From Adryan Small] states contraindication with other pulmonary meds Consultations 01/06/20 15:16 ED Decision to Admit Stat 01/06/20 20:54 Consult Psychiatry Routine 01/07/20 07:00 Consult Pulmonology Routine 01/14/20 13:45 Consult Neurology Routine 01/15/20 17:37 Consult Pulmonology Routine Ordered Studies 01/15/20 17:36 CT head/brain wo con Routine Hospital Course (1) Acute and chronic respiratory failure with hypoxia: (1) Acute and chronic respiratory failure with hypoxia: per Dr. Bell notes: Chronic hypoxic respiratory failure. Underlying pulmonary fibrosis and COPD. Presented with cough and worsening dyspnea. Chest x-ray showed chronic interstitial changes. SARS-CoV-2 PCR negative. Seen by Pulmonary Medicine. Procalcitonin and C-reactive protein normal. Sputum culture 01/07 with scant growth. Possible superimposed pulmonary edema on chest x-ray, but pro-BNP normal. Completed course of doxycycline. Developed worsening chest congestion and cough productive of thick green sputum. 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 Osborn recommended chest vest therapy, Mucinex, Hypertonic saline nebs Repeat chest x-ray improving Wheezing resolved Board Certified Family Physician recommend to decrease prednisone to 15 mg daily upon discharge Continue bronchodilator regimen Follow-up with pulmonology clinic in 2 weeks (2) Acute exacerbation of chronic obstructive pulmonary disease (COPD): Pulmonary fibrosis: -- As noted above. (3) Recurrent headaches -- Evaluated by neurology service Consider Zanaflex 4 mg nightly as needed once respiratory status stable, can be discussed further during outpatient neurology clinic follow-up CT head: No acute process (4) GERD (gastroesophageal reflux disease): -- Continue famotidine and PPI. (5) Diabetes mellitus type 2, controlled: -- Diet-controlled. Hgb A1c 6.2 on 11/16/19. Placed on insulin Sliding Scale (6) Hepatitis C: Continue glecaprevir / pibrentasvir. (7) Depression: Psychiatrist consulted for suicidality after patient verbalized self-harm statements to staff Inpatient psychiatric treatment not recommended Recommend to continue usual regimen and closely follow-up with a psychiatrist as an outpatient During the course of admission, the patient no longer had suicidal ideations (8) Anxiety: Management per Psychiatry. (9) Schizophrenia: Management per Psychiatry. (10) Asymptomatic bacteriuria: per Dr. Bell' notes: Urine culture growing Pseudomonas aeruginosa. No fever or dysuria. Chronic urinary incontinence. UA negative for nitrites, 1+ leukocyte esterase, 1-5 WBC's, many epithelial cells. Doubt UTI- colonization or contamination more likely. Antibiotic therapy not indicated for UTI (although now receiving cefepime for lower resp tract infection). (11) DVT prophylaxis: SQ enoxaparin was given Ambulate. (12) Discharge planning issues: discharge to home with home health services. Family Medicine follow-up with Dr. Adam. Follow-up with Pulmonary Medicine. Follow up with psychiatrist Follow-up with neurologist Total Time Total Time Spent Total Time Spent (In Minutes): 50 minutes Discharge Plan Discharge Items Patient Disposition: Home - Home Health Services Reason For Visit: SOB Discharge Diagnosis: Acute and chronic respiratory failure with hypoxia, secondary to acute exac erbation of chronic obstructive pulmonary disease Activity: Resume your previous activity Activity Comment: Resume gradually as tolerated Lifting: Wait until after follow-up appointment Exercise/Sports: Wait until after follow-up appointment Driving/Machine Use: No driving until reevaluated by primary care physician on follow-up visit Non-emergency contact: Primary Care Provider Call non-emergency contact if: you have any medication questions, your symptoms worsen, your pain is not controlled, your pain is worsening, your pain is unusual for you, your pain is concerning for you and you have a fever Follow-up/Referrals: Naveed Adam MD [Primary Care Provider] - (Date & Time 01/23/2020 11:00 AM Provider Sasha Hermosillo PA-C Department [facility] ) Diet: Carb Consistent or DM2 and Heart Healthy Addtl Attending Provider Instructions: Call primary care physician or return to the ER immediately if with worsening of symptoms, including Shortness of breath, sputum production, chest pain, fevers or chills. Follow-up with primary care physician as outlined above Follow-up with pulmonology, neurology, psychiatry. Pending Studies at Discharge: No Stand-Alone Forms: [facility] [place] [employer], Smoking Cessation Medications and DC Order Prescriptions: Continued calcitonin (salmon) 200 unit/actuation [place],Non-Aerosol 1 spray Intranasal QAM RF: 0 ferrous sulfate [FerrouSul] 325 mg (65 mg iron) tablet 325 mg PO BIDM RF: 0 folic acid 1 mg Tablet 1 mg PO QAM RF: 0 montelukast [Singulair] 10 mg Tablet 10 mg PO HS RF: 0 albuterol sulfate [Ventolin HFA] 90 mcg/actuation Hfa Aerosol Inhaler 2 puff INHALATION Q6H PRN (Reason: Shortness Of Breath Or Wheezing) RF: 0 fenofibrate nanocrystallized [Tricor] 48 mg Tablet 48 mg PO QAM RF: 0 pantoprazole [Protonix] 40 mg Tablet,Delayed Release (Dr/Ec) 40 mg PO BIDM RF: 0 magnesium hydroxide [Milk of Magnesia] 400 mg/5 mL Suspension 30 ml PO HS PRN (Reason: Constipation) RF: 0 tramadol 50 mg tablet 50 mg PO Q6 PRN (Reason: Pain) RF: 0 docusate sodium 100 mg Capsule 100 mg PO AMHS RF: 0 clozapine [Clozaril] 100 mg Tablet 100 mg PO BIDM RF: 0 Januvia 100 mg Tablet 100 mg PO QAM RF: 0 metoprolol tartrate 25 mg Tablet 12.5 mg PO AMHS RF: 0 acetaminophen [Tylenol Extra Strength] 500 mg Tablet 1,000 mg PO TID MDD 2 GR/24 HOURS PRN (Reason: Pain) RF: 0 diclofenac sodium [Voltaren] 1 % Gel 2 g TOPICAL QID PRN (Reason: Pain) RF: 0 fluticasone propionate [Flonase Allergy Relief] 50 mcg/actuation [place],Suspension 2 spray INTRANASAL QAM RF: 0 clonazepam 0.5 mg tablet See Rx Instructions .ROUTE .COMPLEX RF: 0 furosemide [Lasix] 20 mg Tablet 20 mg PO DAILY PRN (Reason: Edema) RF: 0 budesonide 1 mg/2 mL suspension for nebulization 1 mg inhalation BID RF: 0 prednisone 10 mg tablet 15 mg PO DAILY RF: 0 Mavyret 100-40 mg Tablet 3 tab PO DAILY RF: 0 buspirone 15 mg tablet 15 mg PO BID RF: 0 albuterol sulfate 2.5 mg /3 mL (0.083 %) solution for nebulization 2.5 mg inhalation TID PRN (Reason: Shortness Of Breath) RF: 0 calcium-vitamin D3-vitamin K 500 mg-1,000 unit-40 mcg Tablet,Chewable 1 tab PO BIDM RF: 0 cyclobenzaprine 5 mg tablet 5 mg PO BID PRN (Reason: Muscle Spasm) RF: 0 Mucinex 1,200 mg Tablet Extended Release 12hr 1,200 mg PO AMHS RF: 0 Trintellix 20 mg Tablet 20 mg PO QAM RF: 0 clotrimazole-betamethasone 1-0.05 % cream 1 applic TOPICAL BID RF: 0 multivitamin with minerals Tablet 1 tab PO QAM RF: 0 Arnuity Ellipta 100 mcg/actuation blister with device 1 inh inhalation QAM RF: 0 terbinafine HCl 1 % Cream 1 applic TOPICAL DIRECTED PRN (Reason: RASH ON STOMACH) RF: 0 promethazine 6.25 mg/5 mL Syrup 6.25 mg PO QID PRN (Reason: Cough) RF: 0 famotidine 20 mg Tablet 20 mg PO AMHS RF: 0 celecoxib [Celebrex] 100 mg Capsule 100 mg PO BIDM RF: 0 ketoconazole 2 % Cream 1 applic TOPICAL TID RF: 0 loratadine 10 mg Tablet 10 mg PO QDD RF: 0 sodium chloride [Deep Sea Nasal] 0.65 % Aerosol,[place] 2 spray INTRANASAL TID PRN (Reason: DRYNESS) RF: 0 melatonin 5 mg Tablet 5 mg PO HS PRN (Reason: Sleep) RF: 0 Rexulti 4 mg tablet 4 mg PO QAM RF: 0 Trelegy Ellipta 100-62.5-25 mcg Blister With Device 1 inh INHALATION QAM RF: 0 Discharge Orders: Discharge Order (Routine); Ordered 01/19/20 Ordered By: Jose Alberto Diego Admission Data Admit Date/Time: 01/06/20 15:58 Attending Provider: Jose Alberto Diego Admit Provider: Arvind Duong Primary Care Provider: Naveed Adam Other Providers: Arvind Duong ; Justin Ocampo ; Marco A Moreland ; [facility] ; Naveed Bell ; Dustin Saldaña ; Samia Osborn
[2020-01-19] MEDS: LORATADINE 10 MG TAB PO SCH (15:13)
== END 2020-01-19 16:40 | disposition home health service (06) | DRG 190 ==
LOC: ED 09:33 → 2N 15:58 → SUATTDRO 15:58 → 2N 19:52

== ENCOUNTER 2020-01-24 08:32 | Inpatient (IN) ==
--- NOTE | 2020-01-24 08:56 | Emergency Department Note ---
History of Present Illness General Chief complaint: Shortness of Breath/Dyspnea Time Seen by Provider: 01/24/20 08:36 History of Present Illness Maximum Pain Intensity: 5 This is a 59-year-old male with a complex and extensive past medical history that presents to the emergency department via ambulance with complaints of "shortness of breath". The patient notes a chronic history of dyspnea/shortness of breath but notes that over the past few days has had increased work of breathing and shortness of breath. Patient does use breathing treatments at home. She notes that yesterday she checked her oxygen and it was in the 70s and then used her nebulizers and this began to improve. Today she notes that she woke up and checked her oxygen and it was also in the 70s I again despite O2 via nasal cannula at baseline and then attempted breathing treatments and only was able to have the O2 around 82. For this reason she summoned EMS who notes that the patient did display increased work of breathing on exam compared to previous/baseline for the patient and they increased her oxygen. She responded well to this. She was then brought here for evaluation. It was reported the patient did summon EMS yesterday and then refused transport in hopes that the symptoms would improve into today but unfortunately persisted therefore prompting arrival. The patient does note a cough. Current discomfort 5/10. Mild chest pain. She does note chronic back pain. She denies any fevers, ch ills. No loss of taste or smell. She does note a recent negative COVID-19 test while admitted here earlier this month. Per EMS, when they arrived at the patient's residence her oxygen was 86%. Patient denies any SI or HI. Home Medications Medication Instructions Recorded Confirmed Type albuterol sulfate [Ventolin HFA] 2 puff INHALATION Q6H PRN 12/27/17 01/24/20 History calcitonin (salmon) 1 spray INTRANASAL QAM 12/27/17 01/24/20 History fenofibrate nanocrystallized 48 mg PO QAM 12/27/17 01/24/20 History [Tricor] ferrous sulfate [FerrouSul] 325 mg PO BIDM 12/27/17 01/24/20 History folic acid 1 mg PO QAM 12/27/17 01/24/20 History montelukast [Singulair] 10 mg PO HS 12/27/17 01/24/20 History pantoprazole [Protonix] 40 mg PO BIDM 02/18/18 01/24/20 History magnesium hydroxide [Milk of 30 ml PO HS PRN 03/02/18 01/24/20 History Magnesia] albuterol sulfate 2.5 mg INHALATION TID PRN 07/29/18 01/24/20 History calcium-vitamin D3-vitamin K 1 tab PO BIDM 07/30/18 01/24/20 History tramadol 50 mg PO Q6 PRN 08/20/18 01/24/20 History Januvia 100 mg PO QAM 11/21/18 01/24/20 History acetaminophen [Tylenol Extra 1,000 mg PO TID PRN MDD 2 11/21/18 01/24/20 History Strength] HOURS clozapine [Clozaril] 100 mg PO BIDM 11/21/18 01/24/20 History diclofenac sodium [Voltaren] 2 g TOPICAL QID PRN 11/21/18 01/24/20 History docusate sodium 100 mg PO AMHS 11/21/18 01/24/20 History fluticasone propionate [Flonase 2 spray INTRANASAL QAM 11/21/18 01/24/20 History Allergy Relief] metoprolol tartrate 12.5 mg PO AMHS 11/21/18 01/24/20 History Mucinex 1,200 mg PO AMHS 02/14/19 01/24/20 History cyclobenzaprine 5 mg PO BID PRN 02/14/19 01/24/20 History Trintellix 20 mg PO QAM 03/12/19 01/24/20 History Arnuity Ellipta 1 inh INHALATION QAM 04/12/19 01/24/20 History clotrimazole-betamethasone 1 applic TOPICAL BID 04/12/19 01/24/20 History multivitamin with minerals 1 tab PO QAM 04/12/19 01/24/20 History Rexulti 4 mg PO QAM 10/05/19 01/24/20 History Trelegy Ellipta 1 inh INHALATION QAM 10/05/19 01/24/20 History celecoxib [Celebrex] 100 mg PO BIDM 10/05/19 01/24/20 History famotidine 20 mg PO AMHS 10/05/19 01/24/20 History ketoconazole 1 applic TOPICAL TID 10/05/19 01/24/20 History loratadine 10 mg PO QDD 10/05/19 01/24/20 History melatonin 5 mg PO HS PRN 10/05/19 01/24/20 History promethazine 6.25 mg PO QID PRN 10/05/19 01/24/20 History sodium chloride [Deep Sea Nasal] 2 spray INTRANASAL TID PRN 10/05/19 01/24/20 History terbinafine HCl 1 applic TOPICAL DIRECTED PRN 10/05/19 01/24/20 History clonazepam See Rx Instructions .ROUTE .COMPLEX 11/15/19 01/24/20 History furosemide [Lasix] 20 mg PO DAILY PRN 11/18/19 01/24/20 History Mavyret 3 tab PO DAILY 01/06/20 01/24/20 History budesonide 1 mg INHALATION BID 01/06/20 01/24/20 History prednisone 5 mg PO QAM 01/06/20 01/24/20 History buspirone 15 mg PO BID 01/08/20 01/24/20 History Allergies Allergy/AdvReac Type Severity Reaction Status Date / Time hydroxyzine Allergy Unknown UNKNOWN Verified 01/24/20 09:37 fluphenazine AdvReac Intermediate confusion Verified 01/24/20 09:37 haloperidol AdvReac Intermediate "MAKES ME Verified 01/24/20 09:37 GO INTO BLACKOUT" hydrocodone AdvReac Intermediate DROWSY Verified 01/24/20 09:37 molindone AdvReac Intermediate PT FEELS Verified 01/24/20 09:37 LIKE SHES "JUMPING OUT OF HER SKIN" morphine AdvReac Intermediate DROWSY Verified 01/24/20 09:37 lithium AdvReac Mild "LEVEL CAN Verified 01/24/20 09:37 GET TOO HIGH" benzonatate AdvReac Unknown Patient Unverified 01/24/20 09:37 [From Adryan Small] states contraindication with other pulmonary meds Past Med/Surg History Medical History Anxiety Chronic back pain Chronic dyspnea Chronic pain history of excessive sedation on narcotics no narcotics except for acute / severe pain Chronic respiratory failure with hypoxia, on home O2 therapy COPD (chronic obstructive pulmonary disease) Depression Diabetes mellitus type 2, controlled Do not resuscitate status Discussed with pt + sister 11/14. No CPR. Temporary intubation / mechanical vent OK. DVT (deep venous thrombosis) right leg--no blood thinners GERD (gastroesophageal reflux disease) Headache above the eye region Hepatitis C History of anesthesia reaction did not receive enough anesthesia during a colonoscopy and felt everything Orthostatic hypotension Osteoarthritis Pulmonary fibrosis Schizophrenia Spinal stenosis Surgical History History of open reduction and internal fixation (ORIF) procedure left femur--rods in place History of thoracic spinal fusion fusion and decompression t6-t12 History of tooth extraction all teeth removed History of total abdominal hysterectomy and bilateral salpingo-oophorectomy History of vascular access device Aport on right side Family History Grandmother (Paternal) Family hx of colon cancer Social History Smoking Status: Former smoker Tobacco Type: Cigarettes Second Hand Exposure: No; Do You Dip or Chew Tobacco: No; Tobacco Cessation Education Requested by Patient: No Hx Alcohol Use: No Hx Substance Use: Yes Last Used Substance: Unknown Substance Use Type Other:: No longer Preferred Language: [place] Communication Ability: Effective Visual Impairment: No Limitations Com Writer Required: No Beliefs That Will Affect Care: None marital status: Single Current Living Situation: Family Current Living Situation Comment: Pt. lives with mother and sister. Feels Safe at Home: Yes Safety Concerns: Feels Safe At This Time Assistive Devices: Oxygen - at Night, Oxygen - Continuous, Walker and Wheelchair Review of Systems A total of 10 systems reviewed and were otherwise negative Physical Exam Vital Signs Vital Signs - 24 hr 01/24/20 08:43 01/24/20 08:45 01/24/20 08:49 Temperature 37.2 C Temperature Source Oral Pulse Rate 107 H Pulse Rate from SpO2 Sensor Respiratory Rate 34 H Respiratory Effort / Characteristics Spontaneous Blood Pressure 119/47 L Blood Pressure Mean 71 Pulse Oximetry 99 99 99 Oxygen Delivery Method Nasal Cannula Nasal Cannula Nasal Cannula Oxygen Flow Rate 11 11 11 Sepsis Recent Fever Within 48 Hours No Sepsis New/Unexplained Change in Mental Status N/A Sepsis Action Taken by Nursing Adv Provider Notified 01/24/20 09:18 01/24/20 09:31 11/28/20 10:00 Temperature Temperature Source Pulse Rate 96 H 96 H 97 H Pulse Rate from SpO2 Sensor 96 H 96 H 112 H Respiratory Rate 25 H 20 27 H Respiratory Effort / Characteristics Blood Pressure 104/60 101/48 L 108/75 Blood Pressure Mean 71 69 93 Pulse Oximetry 100 96 96 Oxygen Delivery Method Nasal Cannula Nasal Cannula Nasal Cannula Oxygen Flow Rate 9 9 7 Sepsis Recent Fever Within 48 Hours Sepsis New/Unexplained Change in Mental Status Sepsis Action Taken by Nursing VITAL SIGNS - Vital signs and nursing notes were reviewed. Stable and afebrile. GENERAL -59-year-old female appearing her stated age who is in no acute distress but does show increased work of breathing and is sitting upright. Communicates well with provider and answers questions appropriately. SKIN - Without rashes. Face mask in place. Patient utilizing nasal cannula oxygen. HEAD - NC/AT. EYES - PERRL with EOMI bilaterally. Sclera anicteric. EARS - No deformities of external structures noted on gross examination bilaterally. MOUTH/OROPHARYNX - Without perioral cyanosis. NECK - Neck with FROM. No nuchal rigidity. LUNGS -patient does display increased work of breathing and there is a wet, mildly productive cough noted. Decreased breath sounds noted bilaterally with mild wheezing. CARDIAC - RRR with S1/S2. No murmur, rubs, or gallops appreciated. EXTREMITIES - No clubbing or peripheral cyanosis. NEUROLOGIC - Cranial nerves II through XII grossly intact. Sensory intact to light touch throughout. PSYCH - A&Ox3 and cooperates fully with examiner. Pt is very pleasant and interacts well with examiner. Course Administered Medications Discontinued Medications Magnesium Sulfate/Dextrose (Magnesium Sulfate / D5w) 1 gm in 100 mls @ 100 mls/hr IV NOW STA Stop: 01/24/20 10:38 Last Infusion: 01/24/20 11:13 Dose: 0 mls/hr Documented by: [id number] Admin: 01/24/20 09:55 Dose: 100 mls/hr Documented by: [id number] Methylprednisolone 60 mg/ (Syringe) 1.96 mls @ 1.5 mls/min IV NOW STA Stop: 01/24/20 09:39 Last Admin: 01/24/20 09:55 Dose: 1.5 mls/min Documented by: [id number] Sodium Chloride (Nss) 500 mls @ 500 mls/hr IV .Q1H ONE Stop: 01/24/20 10:39 Last Infusion: 01/24/20 10:51 Dose: 0 mls/hr Documented by: [id number] Admin: 01/24/20 09:55 Dose: 500 mls/hr Documented by: [id number] Cefepime HCl (Maxipime) 2,000 mg in 20 mls @ 5 mls/min IV NOW STA; Protocol Stop: 01/24/20 10:08 Last Admin: 01/24/20 10:38 Dose: Not Given Documented by: [id number] Piperacillin Sod/Tazobactam Sod (Zosyn) 4.5 gm in 120 mls @ 240 mls/hr IV NOW ONE Stop: 01/24/20 10:35 Last Infusion: 01/24/20 11:16 Dose: 0 mls/hr Documented by: [id number] Admin: 01/24/20 10:50 Dose: 240 mls/hr Documented by: [id number] Furosemide 40 mg/ Syringe 4 mls @ 4 mls/min IV 1300 ONE Stop: 01/24/20 13:01 Last Admin: 01/24/20 13:31 Dose: 4 mls/min Documented by: [id number] Methylprednisolone (Methylprednisolone 125 Mg/2 Ml Vial) Confirm Administered Dose 125 mg .ROUTE .STK-MED ONE Stop: 01/24/20 09:53 Last Admin: 01/24/20 09:55 Dose: Not Given Documented by: [id number] Medical Decision Making Laboratory Data Result diagrams: 01/24/20 09:05 01/24/20 09:05 Lab Results 01/24/20 01/24/20 01/24/20 Range/Units 09:00 09:00 09:05 WBC 11.95 H (4.8-10.8) K/uL RBC 3.97 L (4.2-5.4) M/uL Hgb 12.6 (12.0-16.0) g/dL Hct 40.1 (37-47) % MCV 101.0 H (80-100) fL MCH 31.7 (25-34) pg MCHC 31.4 L (32-36) g/dL RDW Std Deviation 47.6 H (36.4-46.3) fL RDW Coeff of Ivy 12.9 (11.5-14.5) % Plt Count 187 (130-400) K/uL MPV 10.9 H (7.4-10.4) fL Immature Gran % (Auto) 0.5 % Neut % (Auto) 75.6 % Lymph % (Auto) 11.5 % [place] % (Auto) 9.5 % Eos % (Auto) 2.6 % Baso % (Auto) 0.3 % Neut # (Auto) 9.05 H (1.4-6.5) K/uL Lymph # (Auto) 1.37 (1.2-3.4) K/uL [place] # (Auto) 1.13 H (0.11-0.59) K/uL Eos # (Auto) 0.31 (0-0.5) K/uL Baso # (Auto) 0.03 (0-0.2) K/uL Immature Gran # (Auto) 0.06 H (0.00-0.02) K/uL PT (9.0-12.0) Seconds INR (0.9-1.1) APTT (21.0-31.0) Seconds PTT Ratio VBG pH (7.36-7.41) VBG pCO2 (38-50) mmHg VBG pO2 mmHg VBG HCO3 mmol/L VBG O2 Saturation % VBG Base Excess mEq/L Barometric Pressure mm/Hg Sodium (136-145) mmol/L Potassium (3.5-5.1) mmol/L Chloride (98-107) mmol/L Carbon Dioxide (21-32) mmol/L Anion Gap (3-11) BUN (7-18) mg/dl Creatinine (0.6-1.2) mg/dl Est Cr Clr Drug Dosing ml/min Est GFR ( Amer) Est GFR (Non-Af Amer) BUN/Creatinine Ratio (10-20) Glucose (70-99) mg/dl Lactate (0.4-2.0) mmol/L Calcium (8.5-10.1) mg/dl Magnesium (1.8-2.4) mg/dl Total Bilirubin (0.2-1) mg/dl AST (15-37) U/L ALT (12-78) U/L Alkaline Phosphatase (45-117) U/L Troponin I (0-0.045) ng/ml Total Protein (6.4-8.2) gm/dl Albumin (3.4-5.0) gm/dl Globulin (2.5-4.0) gm/dl Albumin/Globulin Ratio (0.9-2) Procalcitonin (0-0.5) ng/ml COVID-19 [email or web address]-2, RNA, NAAT NEGATIVE (NEGATIVE) 01/24/20 01/24/20 01/24/20 Range/Units 09:05 09:05 09:05 WBC (4.8-10.8) K/uL RBC (4.2-5.4) M/uL Hgb (12.0-16.0) g/dL Hct (37-47) % MCV (80-100) fL MCH (25-34) pg MCHC (32-36) g/dL RDW Std Deviation (36.4-46.3) fL RDW Coeff of Ivy (11.5-14.5) % Plt Count (130-400) K/uL MPV (7.4-10.4) fL Immature Gran % (Auto) % Neut % (Auto) % Lymph % (Auto) % [place] % (Auto) % Eos % (Auto) % Baso % (Auto) % Neut # (Auto) (1.4-6.5) K/uL Lymph # (Auto) (1.2-3.4) K/uL [place] # (Auto) (0.11-0.59) K/uL Eos # (Auto) (0-0.5) K/uL Baso # (Auto) (0-0.2) K/uL Immature Gran # (Auto) (0.00-0.02) K/uL PT 10.6 (9.0-12.0) Seconds INR 1.0 (0.9-1.1) APTT 25.6 (21.0-31.0) Seconds PTT Ratio 0.9 VBG pH (7.36-7.41) VBG pCO2 (38-50) mmHg VBG pO2 mmHg VBG HCO3 mmol/L VBG O2 Saturation % VBG Base Excess mEq/L Barometric Pressure mm/Hg Sodium 139 (136-145) mmol/L Potassium 3.5 (3.5-5.1) mmol/L Chloride 103 (98-107) mmol/L Carbon Dioxide 32 (21-32) mmol/L Anion Gap 4.0 (3-11) BUN 9 (7-18) mg/dl Creatinine 0.82 (0.6-1.2) mg/dl Est Cr Clr Drug Dosing 84.6 ml/min Est GFR ( Amer) 90.1 Est GFR (Non-Af Amer) 77.8 BUN/Creatinine Ratio 11.5 (10-20) Glucose 124 H (70-99) mg/dl Lactate 1.3 (0.4-2.0) mmol/L Calcium 9.2 (8.5-10.1) mg/dl Magnesium 1.7 L (1.8-2.4) mg/dl Total Bilirubin 0.5 (0.2-1) mg/dl AST 18 (15-37) U/L ALT 29 (12-78) U/L Alkaline Phosphatase 46 (45-117) U/L Troponin I < 0.015 (0-0.045) ng/ml Total Protein 8.0 (6.4-8.2) gm/dl Albumin 3.3 L (3.4-5.0) gm/dl Globulin 4.7 H (2.5-4.0) gm/dl Albumin/Globulin Ratio 0.7 L (0.9-2) Procalcitonin (0-0.5) ng/ml COVID-19 Eval Order SARS-CoV-2, RNA, NAAT (NEGATIVE) 01/24/20 01/24/20 Range/Units 09:05 09:38 WBC (4.8-10.8) K/uL RBC (4.2-5.4) M/uL Hgb (12.0-16.0) g/dL Hct (37-47) % MCV (80-100) fL MCH (25-34) pg MCHC (32-36) g/dL RDW Std Deviation (36.4-46.3) fL RDW Coeff of Ivy (11.5-14.5) % Plt Count (130-400) K/uL MPV (7.4-10.4) fL Immature Gran % (Auto) % Neut % (Auto) % Lymph % (Auto) % [place] % (Auto) % Eos % (Auto) % Baso % (Auto) % Neut # (Auto) (1.4-6.5) K/uL Lymph # (Auto) (1.2-3.4) K/uL [place] # (Auto) (0.11-0.59) K/uL Eos # (Auto) (0-0.5) K/uL Baso # (Auto) (0-0.2) K/uL Immature Gran # (Auto) (0.00-0.02) K/uL PT (9.0-12.0) Seconds INR (0.9-1.1) APTT (21.0-31.0) Seconds PTT Ratio VBG pH 7.35 L (7.36-7.41) VBG pCO2 54 H (38-50) mmHg VBG pO2 46 mmHg VBG HCO3 29 mmol/L VBG O2 Saturation 77.6 % VBG Base Excess 2.6 mEq/L Barometric Pressure 735.3 mm/Hg Sodium (136-145) mmol/L Potassium (3.5-5.1) mmol/L Chloride (98-107) mmol/L Carbon Dioxide (21-32) mmol/L Anion Gap (3-11) BUN (7-18) mg/dl Creatinine (0.6-1.2) mg/dl Est Cr Clr Drug Dosing ml/min Est GFR ( Amer) Est GFR (Non-Af Amer) BUN/Creatinine Ratio (10-20) Glucose (70-99) mg/dl Lactate (0.4-2.0) mmol/L Calcium (8.5-10.1) mg/dl Magnesium (1.8-2.4) mg/dl Total Bilirubin (0.2-1) mg/dl AST (15-37) U/L ALT (12-78) U/L Alkaline Phosphatase (45-117) U/L Troponin I (0-0.045) ng/ml Total Protein (6.4-8.2) gm/dl Albumin (3.4-5.0) gm/dl Globulin (2.5-4.0) gm/dl Albumin/Globulin Ratio (0.9-2) Procalcitonin < 0.05 (0-0.5) ng/ml COVID-19 Eval Order SARS-CoV-2, RNA, NAAT (NEGATIVE) Imaging Data Radiologist's Impression: XR chest 1V portable HISTORY: 59 years-old Female dyspnea, hypoxia acute shortness of breath with hypoxia COMPARISON: Chest radiograph 01/16/2020, CTA chest 02/04/2019. TECHNIQUE: Portable AP view of the chest FINDINGS: Hypoinflation. Chronic interstitial lung disease. Cardiomegaly. Unchanged positioning of the right pectoral Qpoqso-e-Plsm catheter. No pneumothorax or large pleural effusion. Mildly progressive bilateral reticular opacities with progressive mixed interstitial and alveolar opacities throughout the left lung. Degenerative changes of the shoulders and spine. Healed remote right-sided rib fractures. Posterior interbody nina and screw fusion hardware of the midthoracic spine. IMPRESSION: 1. Progressively worsened bilateral interstitial opacities with mixed interstitial and alveolar opacities throughout the left lung. Findings are sugg estive of pneumonia versus asymmetric pulmonary edema. 2. Cardiomegaly. 3. Chronic interstitial lung disease. ACT 112: Negative or not required by law. The above report was generated using voice recognition software. It may contain grammatical, syntax or spelling errors. Electronically signed by: Jeanmarie Sharp M.D. 01/24/2020 9:56 AM [facility] Narrative Patient was seen and evaluated as above in room C8. Review was performed of nursing notes and vital signs. I did review pertinent previous visits and patient history. After obtaining a thorough history and physical examination the above work up was performed. She presents to us today with increased dyspnea. She has a history of pulmonary fibrosis and COPD at baseline. Patient's chest x-ray from previous was compared and repeat chest x-ray was performed here with progressively worsening bilateral interstitial opacities and mixed interstitial and alveolar opacities throughout the left lung. Pneumonia versus edema. IV access was established. Labs were obtained. Mild leukocytosis. No significant anemia. Magnesium decreased. Pro-Michael and troponin are normal. Urinalysis does not suggest infection. Covid negative. With the patient presentation and worsening chest x-ray and clinical status is felt that further evaluation and management in the inpatient setting is warranted. I did review the patient's previous sputum culture result and added empiric IV Zosyn. VBG was added and after discussing this with the hospitalist and ABG was recommended by the hospitalist. This was added. Patient's ABG O2 saturation 87.2. She will be admitted to the hospital for further evaluation and management. Please refer to further documentation regarding her stay. Patient is in agreement with plan of care. Case was discussed with the attending physician. Sinus tachycardia rate of 112 bpm. There is no ST elevation. QTc 655. An order was placed for continuous cardiac monitoring. The monitor shows a rate of 102 with sinus tachycardia rhythm. I attest that I have personally reviewed the patient medication list. GCS: 15 In the evaluation and treatment of this patient, the following differential diagnoses were considered: GA, ASC, Dysrhythmia, Angina, Mediastinitis, GERD, Esophagitis, PE, Pneumonia, Bronchitis, COVID-19, pulmonary edema, respiratory failure, costochondritis, Rib Fracture, among others. Impression & Plan Dyspnea, Hypoxia Discharge Plan Visit Data Chief Complaint: Shortness of Breath/Dyspnea ED Provider: Clemente Gonzalez ED Midlevel Provider: Hesham De La Cruz Discharge Problem: Dyspnea, Hypoxia Patient Disposition: Admitted As Inpatient Condition: Fair Discharge Instructions Interventions: ED Discharge Assessment Last Done: 01/24/20 10:44
[2020-01-24 09:20] LABS: Basophils # (auto) 0.03 K/uL (0-0.2); Basophils % (auto) 0.3 %; Eosinophils # (auto) 0.31 K/uL (0-0.5); Eosinophils % (auto) 2.6 %; Hematocrit (blood only) 40.1 % (37-47); Hemoglobin 12.6 g/dL (12.0-16.0); Immature Granulocytes # (auto) 0.06 K/uL (0.00-0.02); Immature Granulocytes % (auto) 0.5 %; Lymphocytes # (auto) 1.37 K/uL (1.2-3.4); Lymphocytes % (auto) 11.5 %; Mean Corpuscular Hemoglobin 31.7 pg (25-34); Mean Corpuscular Hgb Conc 31.4 g/dL (32-36); Mean Platelet Volume 10.9 fL (7.4-10.4); Monocytes # (auto) 1.13 K/uL (0.11-0.59); Monocytes % (auto) 9.5 %; Neutrophils # (auto) 9.05 K/uL (1.4-6.5); Neutrophils % (auto) 75.6 %; Platelet Count 187 K/uL (130-400); RDW Coefficient of Variation 12.9 % (11.5-14.5); RDW Standard Deviation 47.6 fL (36.4-46.3); Red Blood Count 3.97 M/uL (4.2-5.4); White Blood Count 11.95 K/uL (4.8-10.8)
[2020-01-24 09:35] LABS: Alanine Aminotransferase 29 U/L (12-78); Albumin Level 3.3 gm/dl (3.4-5.0); Aspartate Aminotransferase 18 U/L (15-37); BUN Creatinine Ratio 11.5 (10-20); Blood Urea Nitrogen 9 mg/dl (7-18); Calcium 9.2 mg/dl (8.5-10.1); Carbon Dioxide 32 mmol/L (21-32); Chloride 103 mmol/L (98-107); Creatinine Clr Calc Pharmacy 84.6 ml/min; Est GFR (African American) 90.1; Est GFR (Non-African American) 77.8; Glucose 124 mg/dl (70-99); Magnesium 1.7 mg/dl (1.8-2.4); Potassium 3.5 mmol/L (3.5-5.1); Sodium 139 mmol/L (136-145)
[2020-01-24 09:37] LABS: Partial Thromboplastin Ratio 0.9; Partial Thromboplastin Time 25.6 Seconds (21.0-31.0); Prothrombin Time 10.6 Seconds (9.0-12.0)
[2020-01-24] MEDS ORDERED: methylPREDNISolone 60 MG in SYRINGE 1 ML IV STA (09:38)
[2020-01-24] MEDS ORDERED: MAGNESIUM SULFATE / D5W 1 GM/100 ML BAG IV STA (09:39)
[2020-01-24] MEDS ORDERED: SODIUM CHLORIDE 0.9% 500 ML IV ONE (09:40)
[2020-01-24 09:41] LABS: Albumin Globulin Ratio 0.7 (0.9-2); Alkaline Phosphatase 46 U/L (45-117); Bilirubin,Total 0.5 mg/dl (0.2-1); Globulin 4.7 gm/dl (2.5-4.0); Troponin I < 0.015 ng/ml (0-0.045)
[2020-01-24] MEDS ORDERED: methylPREDNISolone 125 MG/2 ML VIAL ONE (09:52)
--- NOTE | 2020-01-24 09:57 | XRay Report ---
XR chest 1V portable HISTORY: 59 years-old Female dyspnea, hypoxia acute shortness of breath with hypoxia COMPARISON: Chest radiograph 01/16/2020, CTA chest 02/04/2019. TECHNIQUE: Portable AP view of the chest FINDINGS: Hypoinflation. Chronic interstitial lung disease. Cardiomegaly. Unchanged positioning of the right pe ctoral Xilmio-i-Iaji catheter. No pneumothorax or large pleural effusion. Mildly progressive bilatera l reticular opacities with progressive mixed interstitial and alveolar opacities throughout the left lung. Degenerative changes of the shoulders and spine. Healed remote right-sided rib fractures. Poste rior interbody nina and screw fusion hardware of the midthoracic spine. IMPRESSION: 1. Progressively worsened bilateral interstitial opacities with mixed interstitial and alveolar opaci ties throughout the left lung. Findings are suggestive of pneumonia versus asymmetric pulmonary edema . 2. Cardiomegaly. 3. Chronic interstitial lung disease. ACT 112: Negative or not required by law. The above report was generated using voice recognition software. It may contain grammatical, syntax o r spelling errors. Electronically signed by: Jeanmarie Sharp M.D. 01/24/2020 9:56 AM
[2020-01-24] MEDS ORDERED: CEFEPIME 2,000 MG/20 ML VIAL IV STA (10:05)
[2020-01-24] MEDS ORDERED: PIPERACILL/TAZOBAC CONSULT ACTIVE PRN (10:06)
[2020-01-24] MEDS ORDERED: PIPERACILLIN/TAZOBACTAM 4.5 GM/120 ML BAG IV ONE (10:06)
[2020-01-24 10:16] LABS: Base Excess VBG 2.6 mEq/L; Oxygen Saturation VBG 77.6 %; pH VBG 7.35 (7.36-7.41)
--- NOTE | 2020-01-24 10:16 | History & Physical Report ---
Date of Service January 24, 2020 Assessment & Plan (1) Acute and chronic respiratory failure with hypoxia: Presented with acute on chronic hypoxemic respiratory failure with COPD exacerbation Possible underlying bronchitis/pneumonia Recent admission, sputum culture positive for Pseudomonas Patient will be treated with IV cefepime as per prior sensitivity doxycycline Repeat sputum culture, blood culture ordered Patient noted to desaturation on nasal cannula, ordered for BiPAP Continue IV steroids, nebulizer treatment, home steroid inhalers Pulmonology input requested, appreciate input History of schizoaffective disorder: Mood stable no delusion or hallucination Continue outpatient meds CODE STATUS: Discussed with patient DNR/DNI DVT prophylaxis: Moderate to high risk given poor mobility/fall functional decline for respiratory failure Ordered subcu heparin Disposition: Expected to be discharged home when medically stable PT OT evaluation will be required prior to discharge home Social service consulted for discharge planning History of Present Illness Chief Complaint: Shortness of breath/cough Primary Care Provider: Naveed Adam MD 59 years old female with complex past medical history of type 2 diabetes, esophageal dysmotility, GERD, CKD stage III, osteoporosis, depression, schizoaffective disorders, tobacco abuse, chronic hypoxic respiratory failure due to underlying COPD + pulmonary fibrosis on 4-8 L [place] canula oxygen presented to the ER with worsening shortness of breath. Patient was recently discharged from [facility] on January 16, 2020 for similar presentation, COPD exacerbation, shortness of breath Patient reports after returning home she was doing well for the past 2 to 3 d ays, then started to develop worsening of shortness of breath, cough continues to worsen-with yellow productive sputum Did not had any fever or chills No known COVID-19 exposure Her home pulse oximetry shows oxygenation drop down to low 80s, patient increased her nasal cannula oxygen to 8 L via nasal cannula but continued to have shortness of breath worsening with minimal movements This morning she woke up with worsening of shortness of breath and EMS was called, she was found to be desaturating in low 80s on supplemental O2. In the ER patient was given given a nebulizer treatment /IV Solu-Medrol, chest x-ray shows bilateral interstitial infiltrate, with possible pulmonary congestion slight progression from prior chest x-ray COVID-19 test negative Patient will be admitted to telemetry, continue respiratory support, Pulmonology consult requested Allergies Allergy/AdvReac Type Severity Reaction Status Date / Time hydroxyzine Allergy Unknown UNKNOWN Verified 01/24/20 09:37 fluphenazine AdvReac Intermediate confusion Verified 01/24/20 09:37 haloperidol AdvReac Intermediate "MAKES ME Verified 01/24/20 09:37 GO INTO BLACKOUT" hydrocodone AdvReac Intermediate DROWSY Verified 01/24/20 09:37 molindone AdvReac Intermediate PT FEELS Verified 01/24/20 09:37 LIKE SHES "JUMPING OUT OF HER SKIN" morphine AdvReac Intermediate DROWSY Verified 01/24/20 09:37 lithium AdvReac Mild "LEVEL CAN Verified 01/24/20 09:37 GET TOO HIGH" benzonatate AdvReac Unknown Patient Unverified 01/24/20 09:37 [From Adryan Small] states contraindication with other pulmonary meds Home Medications Medication Instructions Recorded Confirmed Type albuterol sulfate [Ventolin HFA] 2 puff INHALATION Q6H PRN 12/27/17 01/24/20 History calcitonin (salmon) 1 spray INTRANASAL QAM 12/27/17 01/24/20 History fenofibrate nanocrystallized 48 mg PO QAM 12/27/17 01/24/20 History [Tricor] ferrous sulfate [FerrouSul] 325 mg PO BIDM 12/27/17 01/24/20 History folic acid 1 mg PO QAM 12/27/17 01/24/20 History montelukast [Singulair] 10 mg PO HS 12/27/17 01/24/20 History pantoprazole [Protonix] 40 mg PO BIDM 02/18/18 01/24/20 History magnesium hydroxide [Milk of 30 ml PO HS PRN 03/02/18 01/24/20 History Magnesia] albuterol sulfate 2.5 mg INHALATION TID PRN 07/29/18 01/24/20 History calcium-vitamin D3-vitamin K 1 tab PO BIDM 07/30/18 01/24/20 History tramadol 50 mg PO Q6 PRN 08/20/18 01/24/20 History Januvia 100 mg PO QAM 11/21/18 01/24/20 History acetaminophen [Tylenol Extra 1,000 mg PO TID PRN MDD 2 GR/24 11/21/18 01/24/20 History Strength] HOURS clozapine [Clozaril] 100 mg PO BIDM 11/21/18 01/24/20 History diclofenac sodium [Voltaren] 2 g TOPICAL QID PRN 11/21/18 01/24/20 History docusate sodium 100 mg PO AMHS 11/21/18 01/24/20 History fluticasone propionate [Flonase 2 spray INTRANASAL QAM 11/21/18 01/24/20 History Allergy Relief] metoprolol tartrate 12.5 mg PO AMHS 11/21/18 01/24/20 History Mucinex 1,200 mg PO AMHS 02/14/19 01/24/20 History cyclobenzaprine 5 mg PO BID PRN 02/14/19 01/24/20 History Trintellix 20 mg PO QAM 03/12/19 01/24/20 History Arnuity Ellipta 1 inh INHALATION QAM 04/12/19 01/24/20 History clotrimazole-betamethasone 1 applic TOPICAL BID 04/12/19 01/24/20 History multivitamin with minerals 1 tab PO QAM 04/12/19 01/24/20 History Rexulti 4 mg PO QAM 10/05/19 01/24/20 History Trelegy Ellipta 1 inh INHALATION QAM 10/05/19 01/24/20 History celecoxib [Celebrex] 100 mg PO BIDM 10/05/19 01/24/20 History famotidine 20 mg PO AMHS 10/05/19 01/24/20 History ketoconazole 1 applic TOPICAL TID 10/05/19 01/24/20 History loratadine 10 mg PO QDD 10/05/19 01/24/20 History melatonin 5 mg PO HS PRN 10/05/19 01/24/20 History promethazine 6.25 mg PO QID PRN 10/05/19 01/24/20 History sodium chloride [Deep Sea Nasal] 2 spray INTRANASAL TID PRN 10/05/19 01/24/20 History terbinafine HCl 1 applic TOPICAL DIRECTED PRN 10/05/19 01/24/20 History clonazepam See Rx Instructions .ROUTE .COMPLEX 11/15/19 01/24/20 History furosemide [Lasix] 20 mg PO DAILY PRN 11/18/19 01/24/20 History Mavyret 3 tab PO DAILY 01/06/20 01/24/20 History budesonide 1 mg INHALATION BID 01/06/20 01/24/20 History prednisone 5 mg PO QAM 01/06/20 01/24/20 History buspirone 15 mg PO BID 01/08/20 01/24/20 History Past Med/Surg History Medical History Anxiety Chronic back pain Chronic dyspnea Chronic pain history of excessive sedation on narcotics no narcotics except for acute / severe pain Chronic respiratory failure with hypoxia, on home O2 therapy COPD (chronic obstructive pulmonary disease) Depression Diabetes mellitus type 2, controlled Do not resuscitate status Discussed with pt + sister 11/14. No CPR. Temporary intubation / mechanical vent OK. DVT (deep venous thrombosis) right leg--no blood thinners GERD (gastroesophageal reflux disease) Headache above the eye region Hepatitis C History of anesthesia reaction did not receive enough anesthesia during a colonoscopy and felt everything Orthostatic hypotension Osteoarthritis Pulmonary fibrosis Schizophrenia Spinal stenosis Surgical History History of open reduction and internal fixation (ORIF) procedure left femur--rods in place History of thoracic spinal fusion fusion and decompression t6-t12 History of tooth extraction all teeth removed History of total abdominal hysterectomy and bilateral salpingo-oophorectomy History of vascular access device Aport on right side Family History Grandmother (Paternal) Family hx of colon cancer Social History Smoking Status: Former smoker Tobacco Type: Cigarettes Second Hand Exposure: No; Do You Dip or Chew Tobacco: No; Tobacco Cessation Education Requested by Patient: No Hx Alcohol Use: No Hx Substance Use: Yes Last Used Substance: Unknown Substance Use Type Other:: No longer Preferred Language: Mauritanian Communication Ability: Effective Visual Impairment: No Limitations Awning Hanger Helper Required: No Beliefs That Will Affect Care: None marital status: Single Current Living Situation: Family Current Living Situation Comment: Pt. lives with mother and sister. Feels Safe at Home: Yes Safety Concerns: Feels Safe At This Time Assistive Devices: Oxygen - at Night, Oxygen - Continuous, Walker and Wheelchair Review of Systems Review of Systems: All systems reviewed & are unremarkable except as noted in HPI & below Respiratory: + cough, + dyspnea, + dyspnea on exertion, + pain with cough and + wheezing Cardiovascular: + dyspnea, + dyspnea at rest, + dyspnea on exertion and + orthopnea; no chest pain Gastrointestinal: no abdominal pain and no nausea Physical Exam Constitutional: WD/WN, vitals as above + ill appearing Eyes: PERRL, conjunctivae normal, anicteric sclerae ENMT: external ear and nose normal, oropharynx normal Neck: trachea midline, no thyromegaly Respiratory: + respiratory distress and + cough Auscultation: + diminished lung sounds, + crackles, + rales, + rhonchi and + wheezes Skin: no rashes, warm and dry Neurologic: PERRL, EOMI, accommodation nl, no face palsy, no dysarthria Psychiatric: A+Ox3, euthymic affect Results & Data Results & Data ([facility]) Vital Signs (Past 12 Hours) Vital Signs Temp Pulse Resp BP Pulse Ox 01/24/20 09:31 96 H 20 101/48 L 96 01/24/20 09:18 96 H 25 H 104/60 100 01/24/20 08:49 99 01/24/20 08:45 37.2 C 107 H 34 H 119/47 L 99 01/24/20 08:43 99 Code Status & VTE Plan VTE Prophylaxis Plan VTE Prophylaxis will be ordered: Yes
--- NOTE | 2020-01-24 11:34 | Electrocardiogram Report ---
Test Reason : Blood Pressure : / mmHG Vent. Rate : 112 BPM Atrial Rate : 091 BPM P-R Int : 000 ms QRS Dur : 084 ms QT Int : 480 ms P-R-T Axes : 000 073 055 degrees QTc Int : 655 ms Poor data quality, interpretation may be adversely affected Sinus tachycardia Abnormal ECG When compared with ECG of 06-JAN-2020 10:24, Vent. rate has increased BY 37 BPM Confirmed by Mirza Dumont ([id number]) on 01/24/2020 11:34:07 AM Referred By: REFERRED SELF Confirmed By:Mirza Dumont
[2020-01-24 12:28] LABS: Allen Test Pos (Pos); Base Excess ABG 2.5 mEq/L (-9-1.8); HCO3 ABG 29 mmol/L (19-24); Oxygen Saturation ABG 87.2 % (90-95); PCO2 ABG 51 mmHg (35-46); PO2 ABG 56 mmHg (80-95); pH ABG 7.36 (7.35-7.45)
[2020-01-24] MEDS ORDERED: ALBUTEROL HFA 8 GM INHALER INH PRN (12:53)
[2020-01-24] MEDS ORDERED: SODIUM CHLORIDE 0.65% NA SOLN 45 ML (OCEAN) NAE PRN (12:53)
[2020-01-24] MEDS ORDERED: PROMETHAZINE HCL 12.5 MG/10 ML UDP PO PRN (12:53)
[2020-01-24] MEDS ORDERED: clonazePAM 0.5 MG TAB PO PRN (12:56)
[2020-01-24] MEDS ORDERED: GLUCOSE 40% GEL 15 GM TUBE PO PRN (12:59)
[2020-01-24] MEDS ORDERED: GLUCAGON FOR INJ 1 MG VIAL SQ PRN (12:59)
[2020-01-24] MEDS ORDERED: GLUCOSE 10 TABS/TUBE PO PRN (12:59)
[2020-01-24] MEDS ORDERED: CARBOHYDRATES FOR HYPOGLYCEMIA PO PRN (12:59)
[2020-01-24] MEDS ORDERED: DEXTROSE 50% 50 ML SYRINGE IV PRN (12:59)
[2020-01-24] MEDS ORDERED: FUROSEMIDE 40 MG in SYRINGE 0 ML IV ONE (13:00)
[2020-01-24] MEDS ORDERED: TERBINAFINE CR 30 GM TUBE EXT PRN (13:25)
[2020-01-24 13:53] LABS: Appearance Urine Clear (Clear); Bacteria Urine Automated Negative (Negative); Bilirubin Urine Negative (Negative); Blood Urine Negative (Negative); Cast Urine Automated 0 /lpf (0-5); Color Urine Yellow; Glucose Urine UA Negative (Negative); Ketones Urine Negative (Negative); Leukocyte Esterase Urine Trace (Negative); Nitrite Urine Negative (Negative); Protein Urine Negative (Negative); RBC Urine Automated 0-4 /hpf (0-4); Specific Gravity Urine 1.008 (1.000-1.030); Urobilinogen Urine Negative (Negative)
--- NOTE | 2020-01-24 14:39 | Pulmonary Consultation ---
Date of Consultation January 24, 2020 Assessment & Plan (1) Acute and chronic respiratory failure with hypoxia: (2) Pulmonary fibrosis: (3) Bronchiectasis: (4) Pneumonia: Impression: 59-year-old female with not fully characterized interstitial lung disease and associated bronchiectasis with fibrosis who is been on chronic prednisone therapy. She is decreased her prednisone down to 5 mg daily. She recently was hospitalized and found to have Pseudomonas. She presents today with worsening cough and chest congestion and x-ray demonstrating progressive opacities in the left lung worrisome for pneumonia. Recommendations: 1. Exacerbation of bronchiectasis/pneumonia: The patient is currently on cefepime. We will add inhaled tobramycin to her regimen to see if we can improve clearance. Flutter valve, hypertonic saline, and chest physiotherapy as well as Mucinex will be continued in an effort to improve her pulmonary toilet. Continue bronchodilators. Would not recommend high-dose Solu-Medrol so this will be discontinued. She can continue prednisone at 10 mg daily 2. Interstitial lung disease: Agree with prior assessments that this is not well characterized and I am unclear what the etiology is. No indication for bronchoscopy or biopsy at this point in time. The degree of fibrosis likely was so advanced that it would not exchange teller. I am unclear what her i ndication is for prednisone but will defer to her outpatient manager internet. Would not increase her steroids unless she has evidence of relative adrenal insufficiency. 3. Acute on chronic hypoxemic and hypercarbic respiratory failure: Appears that the patient has had baseline CO2 levels between 45 and 55 so her current blood gases not far off however she is slightly more acidotic and more hypoxemic. Continue as needed BiPAP with respiratory precautions. Agree with DNI status as the patient's fibrotic lung disease and underlying medical problems would make her a poor candidate for aggressive long-term therapy. Would avoid respiratory suppressant medications including narcotics benzodiazepines. 4. Management of the patient's other medical issues is deferred to the patient's primary care provider. Will follow to ensure she is responding appropriately. History of Present Illness Attending Physician: Vanessa Dick MD History of Present Illness Asked by hospitalist to assist in management of this patient with structural lung disease admitted with shortness of breath. Patient's been seen on multiple occasions by several of my partners. She is followed in the outpatient setting at [facility]. This 59-year-old female with a history of nondescript interstitial lung disease on chronic prednisone therapy followed in the rheumatology clinic as well as in [facility] pulmonary clinic is on chronic oxygen and noninvasive positive pressure ventilation at home. Her pulmonary history is quite extensive and has been well delineated in prior notes by Dr. Moreland and Irena, most recently January 06 and January 15. Patient was just dismissed from the hospital on January 18 and was readmitted today. She was hospitalized from January 06 to January 18 with a diagnosis of COPD exacerbation and potential bronchiectasis exacerbation. She grew Pseudomonas from her respiratory culture previously. The patient apparently activated EMS yesterday due to shortness of breath and then declined transport to the hospital. Today she felt congested in the chest and was brought to the emergency room. Her oxygen saturations were slightly low. She was placed on BiPAP which he uses at home and admitted to the hospitalist service. The H&P is not yet completed. Allergies Allergy/AdvReac Type Severity Reaction Status Date / Time hydroxyzine Allergy Unknown UNKNOWN Verified 01/24/20 09:37 fluphenazine AdvReac Intermediate confusion Verified 01/24/20 09:37 haloperidol AdvReac Intermediate "MAKES ME Verified 01/24/20 09:37 GO INTO BLACKOUT" hydrocodone AdvReac Intermediate DROWSY Verified 01/24/20 09:37 molindone AdvReac Intermediate PT FEELS Verified 01/24/20 09:37 LIKE SHES "JUMPING OUT OF HER SKIN" morphine AdvReac Intermediate DROWSY Verified 01/24/20 09:37 lithium AdvReac Mild "LEVEL CAN Verified 01/24/20 09:37 GET TOO HIGH" benzonatate AdvReac Unknown Patient Unverified 01/24/20 09:37 [From Adryan Small] states contraindication with other pulmonary meds Home Medications Medication Instructions Recorded Confirmed Type albuterol sulfate [Ventolin HFA] 2 puff INHALATION Q6H PRN 12/27/17 01/24/20 History calcitonin (salmon) 1 spray INTRANASAL QAM 12/27/17 01/24/20 History fenofibrate nanocrystallized 48 mg PO QAM 12/27/17 01/24/20 History [Tricor] ferrous sulfate [FerrouSul] 325 mg PO BIDM 12/27/17 01/24/20 History folic acid 1 mg PO QAM 12/27/17 01/24/20 History montelukast [Singulair] 10 mg PO HS 12/27/17 01/24/20 History pantoprazole [Protonix] 40 mg PO BIDM 02/18/18 01/24/20 History magnesium hydroxide [Milk of 30 ml PO HS PRN 03/02/18 01/24/20 History Magnesia] albuterol sulfate 2.5 mg INHALATION TID PRN 07/29/18 01/24/20 History calcium-vitamin D3-vitamin K 1 tab PO BIDM 07/30/18 01/24/20 History tramadol 50 mg PO Q6 PRN 08/20/18 01/24/20 History Januvia 100 mg PO QAM 11/21/18 01/24/20 History acetaminophen [Tylenol Extra 1,000 mg PO TID PRN MDD 2 11/21/18 01/24/20 History Strength] HOURS clozapine [Clozaril] 100 mg PO BIDM 11/21/18 01/24/20 History diclofenac sodium [Voltaren] 2 g TOPICAL QID PRN 11/21/18 01/24/20 History docusate sodium 100 mg PO AMHS 11/21/18 01/24/20 History fluticasone propionate [Flonase 2 spray INTRANASAL QAM 11/21/18 01/24/20 History Allergy Relief] metoprolol tartrate 12.5 mg PO AMHS 11/21/18 01/24/20 History Mucinex 1,200 mg PO AMHS 02/14/19 01/24/20 History cyclobenzaprine 5 mg PO BID PRN 02/14/19 01/24/20 History Trintellix 20 mg PO QAM 03/12/19 01/24/20 History Arnuity Ellipta 1 inh INHALATION QAM 04/12/19 01/24/20 History clotrimazole-betamethasone 1 applic TOPICAL BID 04/12/19 01/24/20 History multivitamin with minerals 1 tab PO QAM 04/12/19 01/24/20 History Rexulti 4 mg PO QAM 10/05/19 01/24/20 History Trelegy Ellipta 1 inh INHALATION QAM 10/05/19 01/24/20 History celecoxib [Celebrex] 100 mg PO BIDM 10/05/19 01/24/20 History famotidine 20 mg PO AMHS 10/05/19 01/24/20 History ketoconazole 1 applic TOPICAL TID 10/05/19 01/24/20 History loratadine 10 mg PO QDD 10/05/19 01/24/20 History melatonin 5 mg PO HS PRN 10/05/19 01/24/20 History promethazine 6.25 mg PO QID PRN 10/05/19 01/24/20 History sodium chloride [Deep Sea Nasal] 2 spray INTRANASAL TID PRN 10/05/19 01/24/20 History terbinafine HCl 1 applic TOPICAL DIRECTED PRN 10/05/19 01/24/20 History clonazepam See Rx Instructions .ROUTE .COMPLEX 11/15/19 01/24/20 History furosemide [Lasix] 20 mg PO DAILY PRN 11/18/19 01/24/20 History Mavyret 3 tab PO DAILY 01/06/20 01/24/20 History budesonide 1 mg INHALATION BID 01/06/20 01/24/20 History prednisone 5 mg PO QAM 01/06/20 01/24/20 History buspirone 15 mg PO BID 01/08/20 01/24/20 History Patient History Medical History Anxiety Chronic back pain Chronic dyspnea Chronic pain history of excessive sedation on narcotics no narcotics except for acute / severe pain Chronic respiratory failure with hypoxia, on home O2 therapy COPD (chronic obstructive pulmonary disease) Depression Diabetes mellitus type 2, controlled Do not resuscitate status Discussed with pt + sister 11/14. No CPR. Temporary intubation / mechanical vent OK. DVT (deep venous thrombosis) right leg--no blood thinners GERD (gastroesophageal reflux disease) Headache above the eye region Hepatitis C History of anesthesia reaction did not receive enough anesthesia during a colonoscopy and felt everything Orthostatic hypotension Osteoarthritis Pulmonary fibrosis Schizophrenia Spinal stenosis Surgical History History of open reduction and internal fixation (ORIF) procedure left femur--rods in place History of thoracic spinal fusion fusion and decompression t6-t12 History of tooth extraction all teeth removed History of total abdominal hysterectomy and bilateral salpingo-oophorectomy History of vascular access device Aport on right side Family History Grandmother (Paternal) Family hx of colon cancer Social History Smoking Status: Former smoker Tobacco Type: Cigarettes Second Hand Exposure: No; Do You Dip or Chew Tobacco: No; Tobacco Cessation Education Requested by Patient: No Hx Alcohol Use: No Hx Substance Use: Yes Last Used Substance: Unknown Substance Use Type Other:: No longer Preferred Language: Amharic Communication Ability: Effective Visual Impairment: No Limitations Automobile Rental Representative Required: No Beliefs That Will Affect Care: None marital status: Single Current Living Situation: Family Current Living Situation Comment: Pt. lives with mother and sister. Feels Safe at Home: Yes Safety Concerns: Feels Safe At This Time Assistive Devices: Oxygen - at Night, Oxygen - Continuous, Walker and Wheelchair Review of Systems Review of Systems: Please refer to the ER notes. I have no additions or deletions Physical Exam Physical Exam: Constitutional: No acute distress HEENT: EOMI, PERRLA Respiratory system: Decreased air entry bilaterally, positive bilateral Velcro- like crackles lower lobes, no rhonchi, minimal wheeze CVS: S1-S2 positive, no murmurs or gallops, right-sided port Abdomen: Soft, nontender, nondistended, positive bowel sounds x4, obese Extremities: +2 pulses bilaterally radialis/ dorsalis pedis, no cyanosis, no edema Neuro: Awake alert oriented x3 Psych: Normal mood and affect Results & Data Results & Data ([facility]) Vital Signs (Past 12 Hours) Vital Signs Temp Pulse Pulse Resp BP BP Pulse Ox 01/24/20 12:52 36.8 C 111 H 32 H 125/84 88 L 01/24/20 12:50 104 H 01/24/20 11:43 105 H 22 91 01/24/20 11:05 106 H 28 H 154/85 H 98 01/24/20 10:44 100 H 28 H 113/77 97 01/24/20 10:30 94 H 26 H 113/77 100 01/24/20 10:00 97 H 27 H 108/75 96 01/24/20 09:31 96 H 20 101/48 L 96 01/24/20 09:18 96 H 25 H 104/60 100 01/24/20 08:49 99 01/24/20 08:45 37.2 C 107 H 34 H 119/47 L 99 01/24/20 08:43 99 Pulse Ox 01/24/20 12:52 01/24/20 12:50 95 01/24/20 11:43 01/24/20 11:05 01/24/20 10:44 01/24/20 10:30 01/24/20 10:00 01/24/20 09:31 01/24/20 09:18 01/24/20 08:49 01/24/20 08:45 01/24/20 08:43 Laboratory Results 01/24/20 09:05 01/24/20 09:05 Sputum culture from 01/10/2020 and 01/08/2020 during her prior hospitalization demonstrated 2 different strains of Pseudomonas. The strain was resistant to the Cipro and levofloxacin but sensitive to all other antibiotics. She also grew Pseudomonas from a urine culture during her last hospitalization as well Blood gas obtained in the emergency room today showed a pH 7.36 with a PCO2 of 51 and PO2 of 56. Diagnostic Findings Imaging studies were independently reviewed. Chest x-ray from today was re viewed and compared to prior chest x-ray from 01/15. There is extensive spinal hardware in place. Port-A-Cath is in place. Chronic fibrotic changes of the right upper lobe and left lower lobe are noted with some worsening of alveolar opacities. PG Care Time/CCT Total # of Minutes Spent Total Time Spent with Patient: Total time spent is greater than 50% in coordination of care (as documented) at patient's floor/unit and/or counseling patient: Coding Level of Care Code 05885 Inpt Consult Level 5 Diagnoses Acute and chronic respiratory failure with hypoxia J96.21 Pulmonary fibrosis J84.10 Bronchiectasis J47.9 Pneumonia J18.9 Time Spent (min) 50
[2020-01-24] MEDS: KETOCONAZOLE 2% CR 15 GM TUBE EXT SCH ×2 (16:40→19:40)
[2020-01-24] MEDS: UMECLIDINIUM/VILANTEROL 62.5/25MCG 7 PUFFS/INHALER INH SCH (16:41)
[2020-01-24] MEDS: CALCIUM 600MG + VIT D 400 IU TAB PO SCH (16:42)
[2020-01-24] MEDS: LORATADINE 10 MG TAB PO SCH (16:43)
[2020-01-24] MEDS: FERROUS SULFATE 325 MG TAB PO SCH (16:43)
[2020-01-24] MEDS: cloZAPine 100 MG TAB PO SCH (16:44)
[2020-01-24] MEDS: PANTOprazole 40 MG TAB PO SCH (16:45)
[2020-01-24] MEDS: CEFEPIME 2,000 MG in SYRINGE 0 ML IV SCH ×2 (17:07→19:45)
[2020-01-24] MEDS: ACETAMINOPHEN 500 MG TAB PO PRN ×2 (17:07→23:57)
[2020-01-24] MEDS: INSULIN ASPART 100 UNITS/ML 3 ML PEN SC SCH ×2 (17:08→20:18)
[2020-01-24] MEDS: ALBUT/IPRATROP 3MG/0.5MG NEB 3 ML VIAL INH SCH ×2 (17:16→20:25)
[2020-01-24] MEDS ORDERED: methylPREDNISolone 40 MG in SYRINGE 0 ML IV SCH (18:00)
[2020-01-24] MEDS ORDERED: clonazePAM 0.25 MG TAB PO ONE (19:32)
[2020-01-24] MEDS: METOPROLOL TARTRATE 25 MG TAB PO SCH (19:36)
[2020-01-24] MEDS: traMADol HCL 50 MG TABLET PO PRN (19:36)
[2020-01-24] MEDS: clonazePAM 0.25 MG TAB PO SCH (19:36)
[2020-01-24] MEDS: MONTELUKAST SODIUM 10 MG TABLET PO SCH (19:37)
[2020-01-24] MEDS: FAMOTIDINE 20 MG TAB PO SCH (19:37)
[2020-01-24] MEDS: DOCUSATE SODIUM 100 MG CAP PO SCH (19:38)
[2020-01-24] MEDS: CLOTRIMAZOLE/BETAMETHASONE CR 15 GM TUBE EXT SCH (19:38)
[2020-01-24] MEDS: busPIRone 15 MG TAB PO SCH (19:39)
[2020-01-24] MEDS: guaiFENesin 600 MG TABCR PO SCH (19:40)
[2020-01-24] MEDS: BUDESONIDE 0.5 MG/2 ML VIAL (PULMICORT) NEB SCH (20:26)
[2020-01-24] MEDS: SODIUM CHLOR 7% 4 ML NEB NEB SCH (20:36)
[2020-01-24 20:47] LABS: Influenza A virus by PCR Negative (Negative); Influenza B virus by PCR Negative (Negative)
[2020-01-24] MEDS: TOBRAMYCIN SULFATE 300 MG in SYRINGE 0 ML INH SCH (20:57)
[2020-01-24] MEDS: CYCLOBENZAPRINE HCL 5 MG TAB PO PRN (21:30)
[2020-01-25] MEDS: ALBUT/IPRATROP 3MG/0.5MG NEB 3 ML VIAL INH SCH ×4 (01:36→19:48)
[2020-01-25] MEDS: BUDESONIDE 0.5 MG/2 ML VIAL (PULMICORT) NEB SCH ×2 (07:15→19:48)
[2020-01-25] MEDS: SODIUM CHLOR 7% 4 ML NEB NEB SCH ×2 (07:16→19:48)
[2020-01-25] MEDS: TOBRAMYCIN SULFATE 300 MG in SYRINGE 0 ML INH SCH ×2 (07:16→19:48)
[2020-01-25] MEDS: METOPROLOL TARTRATE 25 MG TAB PO SCH ×2 (07:51→20:47)
[2020-01-25] MEDS: CEROVITE ADV FORMULA TAB PO SCH (07:52)
[2020-01-25] MEDS: FOLIC ACID 1 MG TAB PO SCH (07:52)
[2020-01-25] MEDS: FUROSEMIDE 40 MG TAB PO SCH (07:52)
[2020-01-25] MEDS: cloZAPine 100 MG TAB PO SCH ×2 (07:52→17:05)
[2020-01-25] MEDS: FENOFIBRATE NANOCRYSTALLIZED 48 MG TABLET PO SCH (07:52)
[2020-01-25] MEDS: guaiFENesin 600 MG TABCR PO SCH ×2 (07:52→20:47)
[2020-01-25] MEDS: busPIRone 15 MG TAB PO SCH ×2 (07:53→21:53)
[2020-01-25] MEDS: FERROUS SULFATE 325 MG TAB PO SCH ×2 (07:53→17:05)
[2020-01-25] MEDS: PANTOprazole 40 MG TAB PO SCH ×2 (07:53→17:05)
[2020-01-25] MEDS: CALCIUM 600MG + VIT D 400 IU TAB PO SCH ×2 (07:53→17:05)
[2020-01-25] MEDS: DOCUSATE SODIUM 100 MG CAP PO SCH ×2 (07:53→20:48)
[2020-01-25] MEDS: FAMOTIDINE 20 MG TAB PO SCH ×2 (07:53→20:49)
[2020-01-25] MEDS: UMECLIDINIUM/VILANTEROL 62.5/25MCG 7 PUFFS/INHALER INH SCH (07:54)
[2020-01-25] MEDS: FLUTICASONE PROPIONATE NA SPR 16 GM BTL NAE SCH (07:55)
[2020-01-25] MEDS: KETOCONAZOLE 2% CR 15 GM TUBE EXT SCH ×3 (07:57→20:50)
[2020-01-25] MEDS: CLOTRIMAZOLE/BETAMETHASONE CR 15 GM TUBE EXT SCH ×2 (07:57→20:50)
[2020-01-25] MEDS: ACETAMINOPHEN 500 MG TAB PO PRN ×2 (08:02→14:48)
[2020-01-25] MEDS: INSULIN ASPART 100 UNITS/ML 3 ML PEN SC SCH ×4 (08:04→20:50)
[2020-01-25] MEDS: clonazePAM 0.25 MG TAB PO SCH ×2 (08:08→20:56)
[2020-01-25] MEDS: CEFEPIME 2,000 MG in SYRINGE 0 ML IV SCH ×2 (08:09→20:46)
[2020-01-25 08:28] LABS: Hemoglobin 12.6 g/dL (12.0-16.0); Mean Corpuscular Hemoglobin 31.9 pg (25-34); Mean Corpuscular Hgb Conc 31.5 g/dL (32-36); Mean Corpuscular Volume 101.3 fL (80-100); Mean Platelet Volume 10.8 fL (7.4-10.4); Platelet Count 198 K/uL (130-400); RDW Coefficient of Variation 12.7 % (11.5-14.5); RDW Standard Deviation 46.8 fL (36.4-46.3); Red Blood Count 3.95 M/uL (4.2-5.4)
[2020-01-25 08:43] LABS: BUN Creatinine Ratio 16.8 (10-20); Calcium 9.7 mg/dl (8.5-10.1); Creatinine Clr Calc Pharmacy 96.3 ml/min; Est GFR (African American) 105.5; Magnesium 2.1 mg/dl (1.8-2.4); Potassium 3.7 mmol/L (3.5-5.1)
--- NOTE | 2020-01-25 08:53 | Pulmonology Progress Note ---
Date of Service January 25, 2020 Assessment & Plan (1) Acute and chronic respiratory failure with hypoxia: (2) Pulmonary fibrosis: (3) Bronchiectasis: (4) Pneumonia: Impression: 59-year-old female with not fully characterized interstitial lung disease and associated bronchiectasis with fibrosis who is been on chronic prednisone therapy. She is decreased her prednisone down to 5 mg daily. She has a history of Pseudomonas infection in the past and was just discharged January 18 only to be readmitted after 5 days with progressive shortness of breath, cough, and progressive multifocal opacities on chest x-ray Recommendations: 1. Exacerbation of bronchiectasis/pneumonia: Continue cefepime and inhaled tobramycin. Flutter valve, hypertonic saline, and chest physiotherapy as well as Mucinex will be continued in an effort to improve her pulmonary toilet. Patient is on nebulized budesonide so we will discontinue the steroid inhaler. We will add nebulized Perforomist to her regiment. Continue Incruse. She can continue prednisone at 10 mg daily 2. Interstitial lung disease: Agree with prior assessments that this is not well characterized and I am unclear what the etiology is. No indication for bronchoscopy or biopsy at this point in time. The degree of fibrosis likely was so advanced that it would not change manager. I am unclear what her indication is for prednisone but will defer to her outpatient mash filter operator. Would not increase her steroids unless she has evidence of relative adrenal insufficiency. 3. Acute on chronic hypoxemic and hypercarbic respiratory failure: Appears that the patient has had baseline CO2 levels between 45 and 55 so her current blood gases not far off however she is slightly more acidotic and more hypoxemic. Continue as needed BiPAP with respiratory precautions. Agree with DNI status as the patient's fibrotic lung disease and underlying medical problems would make her a poor candidate for aggressive long-term therapy. Would avoid respiratory suppressant medications including narcotics benzodiazepines. BNP pneding, but suspect patient would improve with diuresis. 4. Weight loss recommended. 5. The patient lasted for less than 5 days at home after her recent discharge. Unclear if she has capacity to care for herself at home. Agree with plans for PT OT evaluation. May require some form of placement or rehab. Management of the patient's other medical issues is deferred to the patient's primary care provider. Will continue to follow. Admission and Anticipated Discharge Date Admission Date: January 24, 2020 Subjective Patient was seen just after using the restroom and is in stress. However the patient feels that her breathing is better. She is less congested and coughing less. No fevers chills or night sweats. She is tolerating the respiratory therapies which were adjusted yesterday. Review of Systems Review of Systems: All systems reviewed & are unremarkable except as noted in HPI & below Physical Exam Constitutional: + acute distress, + obese and + frail appearing Neck: trachea midline, no thyromegaly Respiratory: + labored breathing and + uses accessory muscles Auscultation: + crackles and + wheezes Cardiovascular: RRR, no murmur, no edema Gastrointestinal (Abdomen): normal bowel sounds, soft, nontender, no hepatosplenomegaly Musculoskeletal: Extremities: extremities normal to inspection Skin: no rashes, warm and dry Neurologic: Nonfocal exam Lymphatic: no cervical lymphadenopathy Results & Data Results & Data ([facility]) Vital Signs (Past 12 Hours) Vital Signs Temp Pulse Pulse Pulse Resp BP BP 01/25/20 08:00 36.7 C 97 H 18 117/86 01/25/20 07:15 88 88 28 H 01/25/20 04:24 36.5 C 87 18 118/81 01/25/20 01:38 83 22 01/25/20 01:36 83 22 01/25/20 00:00 36.4 C L 89 16 103/48 L 01/24/20 23:48 103 H Pulse Ox 01/25/20 08:00 99 01/25/20 07:15 99 01/25/20 04:24 88 L 01/25/20 01:38 92 01/25/20 01:36 92 01/25/20 00:00 91 01/24/20 23:48 Laboratory Results 01/25/20 08:00 01/25/20 08:00 Sputum culture pending Diagnostic Findings No new imaging PG Care Time/CCT Total # of Minutes Spent Total Time Spent with Patient: Total time spent is greater than 50% in coordination of care (as documented) at patient's floor/unit and/or counseling patient: Coding Level of Care Code 93612 Subseq Hosp Care Lvl 3 Diagnoses Acute and chronic respiratory failure with hypoxia J96.21 Pulmonary fibrosis J84.10 Bronchiectasis J47.9 Pneumonia J18.9
[2020-01-25] MEDS ORDERED: NON-FORMULARY MEDICATION (Fluticasone-Umeclidin-Vilanter [Trelegy Ellipta] 100-62.5-25 mcg INH SCH (09:00)
[2020-01-25] MEDS ORDERED: FLUTICASONE FUROATE 100MCG 14 PUFFS/INHALER INH SCH (09:00)
[2020-01-25] MEDS: predniSONE 10 MG TABLET PO SCH (09:39)
[2020-01-25] MEDS: CALCITONIN SALMON NA 200 IU/AC 3.7 ML BTL NAE SCH (09:39)
[2020-01-25] MEDS: traMADol HCL 50 MG TABLET PO PRN ×2 (09:39→17:05)
[2020-01-25] MEDS: FORMOTEROL 20 MCG/2 ML VIAL NEB SCH ×2 (10:53→19:48)
[2020-01-25] MEDS: CYCLOBENZAPRINE HCL 5 MG TAB PO PRN (14:48)
--- NOTE | 2020-01-25 16:48 | Hospitalist Progress Note ---
Date of Service January 25, 2020 Assessment & Plan (1) Acute and chronic respiratory failure with hypoxia: Presented with acute on chronic hypoxemic respiratory failure with COPD exacerbation Possible underlying bronchitis/pneumonia COVID 19 negative Recent admission, sputum culture positive for Pseudomonas on IV cefepime / Tobramycin Neb tx ordered by Pulm Repeat sputum culture, blood culture ordered nebulizer treatment, home steroid inhalers Pulmonology input requested, appreciate input Iv steroid D/rashard started on PO Prednisone 10 mg daily History of schizoaffective disorder: Mood stable no delusion or hallucination Continue outpatient meds CODE STATUS: Discussed with patient DNR/DNI DVT prophylaxis: Moderate to high risk given poor mobility/fall functional decline for respiratory failure Ordered subcu heparin Disposition: this is pt's second Admission in this month with COPD exacerbation /deconditioning may need rehab PT OT evaluation ordered Social service consulted for discharge planning Admission and Anticipated Discharge Date Admission Date: January 24, 2020 Subjective Follow up visit for COPD exacerbation /ac on chronic resp failure : breathing much improved today speaking in complete sentences , cough has improved no fever or chills pt feels her breathing is much better still requiring high 02 on 7L via oxy mask Review of Systems Review of Systems: All systems reviewed & are unremarkable except as noted in HPI & below Respiratory: + cough and + dyspnea on exertion Physical Exam Constitutional: WD/WN, vitals as above + ill appearing Eyes: PERRL, conjunctivae normal, anicteric sclerae ENMT: external ear and nose normal, oropharynx normal Neck: trachea midline, no thyromegaly Respiratory: + respiratory distress and + cough Auscultation: + diminished lung sounds, + crackles and + wheezes Gastrointestinal (Abdomen): normal bowel sounds, soft, nontender, no hepatosplenomegaly Skin: no rashes, warm and dry Neurologic: PERRL, EOMI, accommodation nl, no face palsy, no dysarthria Psychiatric: A+Ox3, euthymic affect Results & Data Results & Data ([facility]) Vital Signs (Past 12 Hours) Vital Signs Temp Pulse Pulse Pulse Resp BP Pulse Ox 01/25/20 16:38 104 H 01/25/20 16:00 36.9 C 101 H 20 112/86 90 01/25/20 15:08 01/25/20 13:15 98 H 18 96 01/25/20 12:00 36.7 C 88 22 106/67 98 01/25/20 10:53 85 20 99 01/25/20 08:00 36.7 C 90 97 H 18 117/86 99 01/25/20 07:15 88 88 28 H 99 Pulse Ox Pulse Ox Pulse Ox Pulse Ox 01/25/20 16:38 01/25/20 16:00 01/25/20 15:08 90 91 90 82 L 01/25/20 13:15 01/25/20 12:00 01/25/20 10:53 01/25/20 08:00 01/25/20 07:15
[2020-01-25] MEDS: LORATADINE 10 MG TAB PO SCH (17:05)
[2020-01-25] MEDS: DICLOFENAC SOD 1% GEL 100 GM TUBE EXT PRN (20:45)
[2020-01-25] MEDS: MONTELUKAST SODIUM 10 MG TABLET PO SCH (20:48)
[2020-01-25] MEDS: MELATONIN 3 MG TAB PO PRN (21:53)
[2020-01-26] MEDS: ALBUT/IPRATROP 3MG/0.5MG NEB 3 ML VIAL INH SCH ×4 (00:21→22:26)
[2020-01-26 06:35] LABS: Hematocrit (blood only) 39.3 % (37-47); Mean Corpuscular Hemoglobin 31.1 pg (25-34); Mean Corpuscular Hgb Conc 30.5 g/dL (32-36); Mean Corpuscular Volume 101.8 fL (80-100); Mean Platelet Volume 10.5 fL (7.4-10.4); Platelet Count 210 K/uL (130-400); RDW Coefficient of Variation 12.9 % (11.5-14.5); Red Blood Count 3.86 M/uL (4.2-5.4); White Blood Count 9.73 K/uL (4.8-10.8)
[2020-01-26] MEDS: FORMOTEROL 20 MCG/2 ML VIAL NEB SCH (07:52)
[2020-01-26] MEDS: TOBRAMYCIN SULFATE 300 MG in SYRINGE 0 ML INH SCH ×2 (07:53→20:09)
[2020-01-26] MEDS: BUDESONIDE 0.5 MG/2 ML VIAL (PULMICORT) NEB SCH ×2 (07:53→20:01)
[2020-01-26] MEDS: SODIUM CHLOR 7% 4 ML NEB NEB SCH ×2 (07:53→20:01)
[2020-01-26] MEDS: CALCIUM 600MG + VIT D 400 IU TAB PO SCH ×2 (08:54→16:13)
[2020-01-26] MEDS: guaiFENesin 600 MG TABCR PO SCH ×2 (08:54→20:46)
[2020-01-26] MEDS: clonazePAM 0.25 MG TAB PO SCH ×2 (08:54→20:45)
[2020-01-26] MEDS: PANTOprazole 40 MG TAB PO SCH ×2 (08:54→16:13)
[2020-01-26] MEDS: FOLIC ACID 1 MG TAB PO SCH (08:55)
[2020-01-26] MEDS: DOCUSATE SODIUM 100 MG CAP PO SCH ×2 (08:55→20:47)
[2020-01-26] MEDS: FENOFIBRATE NANOCRYSTALLIZED 48 MG TABLET PO SCH (08:55)
[2020-01-26] MEDS: METOPROLOL TARTRATE 25 MG TAB PO SCH ×2 (08:55→20:46)
[2020-01-26] MEDS: FAMOTIDINE 20 MG TAB PO SCH ×2 (08:56→20:49)
[2020-01-26] MEDS: FERROUS SULFATE 325 MG TAB PO SCH ×2 (08:56→16:12)
[2020-01-26] MEDS: FUROSEMIDE 40 MG TAB PO SCH (08:56)
[2020-01-26] MEDS: CEROVITE ADV FORMULA TAB PO SCH (08:56)
[2020-01-26] MEDS: predniSONE 10 MG TABLET PO SCH (08:56)
[2020-01-26] MEDS: CALCITONIN SALMON NA 200 IU/AC 3.7 ML BTL NAE SCH (08:57)
[2020-01-26] MEDS: busPIRone 15 MG TAB PO SCH ×2 (08:57→20:45)
[2020-01-26] MEDS: cloZAPine 100 MG TAB PO SCH ×2 (08:57→16:13)
[2020-01-26] MEDS: FLUTICASONE PROPIONATE NA SPR 16 GM BTL NAE SCH (08:57)
[2020-01-26] MEDS: CEFEPIME 2,000 MG in SYRINGE 0 ML IV SCH ×2 (08:58→20:45)
[2020-01-26] MEDS: UMECLIDINIUM/VILANTEROL 62.5/25MCG 7 PUFFS/INHALER INH SCH (08:58)
[2020-01-26] MEDS: HEPARIN 100 UNIT/ML 5ML FLUSH FLUSH PRN ×2 (08:58→20:47)
[2020-01-26] MEDS: BREXPIPRAZOLE 4 MG PO SCH (08:59)
[2020-01-26] MEDS: VORTIOXETINE HYDROBROMIDE 20MG PO SCH (08:59)
[2020-01-26] MEDS: KETOCONAZOLE 2% CR 15 GM TUBE EXT SCH ×3 (09:00→20:48)
[2020-01-26] MEDS: CLOTRIMAZOLE/BETAMETHASONE CR 15 GM TUBE EXT SCH ×2 (09:00→20:48)
[2020-01-26] MEDS: INSULIN ASPART 100 UNITS/ML 3 ML PEN SC SCH ×4 (09:02→21:48)
[2020-01-26] MEDS: traMADol HCL 50 MG TABLET PO PRN ×2 (09:08→14:33)
[2020-01-26] MEDS: ACETAMINOPHEN 500 MG TAB PO PRN (12:10)
--- NOTE | 2020-01-26 13:09 | Pulmonology Progress Note ---
Date of Service January 26, 2020 Assessment & Plan (1) Acute and chronic respiratory failure with hypoxia: (2) Pulmonary fibrosis: (3) Bronchiectasis: (4) Pneumonia: Impression: 59-year-old female with not fully characterized interstitial lung disease and associated bronchiectasis with fibrosis who is been on chronic prednisone therapy. She is decreased her prednisone down to 5 mg daily. She has a history of Pseudomonas infection in the past and was just discharged January 18 only to be readmitted after 5 days with progressive shortness of breath, cough, and progressive multifocal opacities on chest x-ray Recommendations: 1. Exacerbation of bronchiectasis/pneumonia: Continue cefepime and inhaled tobramycin for her pansensitive Pseudomonas aeruginosa. Tobramycin can be continued twice a day for 2 weeks on and then 2 weeks off for total 12 weeks. She can likely be discharged home in the next day or 2 on inhaled tobramycin. This may help reduce the burden of Pseudomonas within her airways and potentially reduce the frequency of future exacerbations. Flutter valve, hyp ertonic saline, and chest physiotherapy as well as Mucinex will be continued in an effort to improve her pulmonary toilet. The patient is currently on Anoro Ellipta and budesonide nebulizations that are scheduled. I would recommend switching her duo nebs to every 6 hours as needed as opposed to scheduled. Continue 10 mg of prednisone for the time being. She may be a candidate for biologic therapies as an outpatient such as mepolizumab/benralizumab as she has had eosinophil counts of greater than 300 cells per microliter on her CBC. 2. Interstitial lung disease: Unclear etiology. Prior PFTs suggest severe restrictive lung disease. There is a question of possible rheumatoid arthritis. Would recommend follow-up with her outpatient co founder and director and executive associate. Continue prednisone at the dose listed above. Recommend reducing prednisone to the lowest effective dose. 3. Acute on chronic hypoxemic and hypercarbic respiratory failure: Continue noninvasive ventilation. Continue supplemental oxygen to maintain saturations above 88%. She is likely to be a very poor candidate for lung transplantation given her psychiatric disorder and obesity. Pulmonary rehab can be considered as an outpatient. 4. Weight loss recommended. 5. I had a long discussion with the patient with regards to goals of care and redirection of her care. We discussed acknowledging her limitations and realistic goals. She noted that she has a nurse come to her home who used to be a former hospice nurse. She is interested in talking to palliative care services. I have placed a consult to palliative care and let Marta Arrington know about the patient. I also had a discussion about the patient with the respiratory therapist and the bedside nurse. Pulmonary will follow from the periphery at this point. Please call us with questions. Thank you for the consult. Admission and Anticipated Discharge Date Admission Date: January 24, 2020 Subjective Patient stating that she "feels wasted". She is very tired and notes that she feels short of breath even at rest. She does not have much of a productive cough. The RT notes a small amount of hemoptysis. No fevers or chills. No chest pain. Review of Systems Review of Systems: All systems reviewed & are unremarkable except as noted in HPI & below Physical Exam Constitutional: Chronically ill-appearing female in no apparent distress. She has an oxygen mask in place. Eyes: PERRL, conjunctivae normal, anicteric sclerae ENMT: Ears: + hearing impairment Mallampati Class: II Neck: normal visual inspection Respiratory: + tachypneic Diffuse fine Velcro crackles noted bilaterally. Some mild wheezing in the left lung. Cardiovascular: RRR, no murmur, no edema Gastrointestinal (Abdomen): normal bowel sounds, soft, nontender, no hepatosplenomegaly Musculoskeletal: Severe kyphosis noted. Previous healing scars noted on her spine. Neurologic: PERRL, EOMI, accommodation nl, no face palsy, no dysarthria Psychiatric: A+Ox3, euthymic affect Results & Data Results & Data ([facility]) Vital Signs (Past 12 Hours) Vital Signs Temp Pulse Pulse Resp BP BP Pulse Ox 01/26/20 12:13 97.7 F 106 H 20 120/65 99 01/26/20 08:03 98.1 F 91 H 18 114/76 95 01/26/20 07:55 92 H 22 90 01/26/20 07:30 88 01/26/20 05:06 98 H 18 95 01/26/20 04:43 98 H 01/26/20 03:21 97.9 F 96 H 18 135/91 95 I reviewed the vital signs, labs and imaging PG Care Time/CCT Total # of Minutes Spent Total Time Spent with Patient: Total time spent is greater than 50% in coordination of care (as documented) at patient's floor/unit and/or counseling patient: Coding Level of Care Code 92078 Subseq Hosp Care Lvl 3 Diagnoses Acute and chronic respiratory failure with hypoxia J96.21 Pulmonary fibrosis J84.10 Bronchiectasis J47.9 Pneumonia J18.9
[2020-01-26] MEDS: LORATADINE 10 MG TAB PO SCH (16:14)
[2020-01-26] MEDS: MAGNESIUM HYDROXIDE SUSP 30 ML UDC PO PRN (16:17)
--- NOTE | 2020-01-26 17:44 | Hospitalist Progress Note ---
Date of Service January 26, 2020 Assessment & Plan (1) Acute and chronic respiratory failure with hypoxia: Presented with acute on chronic hypoxemic respiratory failure with COPD exacerbation Possible underlying bronchitis/pneumonia COVID 19 negative Recent admission, sputum culture positive for Pseudomonas on IV cefepime / Tobramycin Neb tx ordered by Pulm cont Neb tx /home inhaler tx Pulmonology input requested, appreciate input cont PO Prednisone 10 mg daily History of schizoaffective disorder: Mood stable no delusion or hallucination Continue outpatient meds CODE STATUS: Discussed with patient DNR/DNI DVT prophylaxis: Moderate to high risk given poor mobility/fall functional decline for respiratory failure Ordered subcu heparin Disposition: this is pt's second Admission in this month with COPD exacerbation /deconditioning may need rehab PT OT evaluation ordered Social service consulted for discharge planning Admission and Anticipated Discharge Date Admission Date: January 24, 2020 Subjective Follow up visit for COPD exacerbation /ac on chronic resp failure : breathing improved to baseline no fever or chills pt feels her breathing is much better Review of Systems Review of Systems: All systems reviewed & are unremarkable except as noted in HPI & below Physical Exam Constitutional: WD/WN, vitals as above + ill appearing Eyes: PERRL, conjunctivae normal, anicteric sclerae ENMT: external ear and nose normal, oropharynx normal Neck: trachea midline, no thyromegaly Respiratory: + respiratory distress and + cough Auscultation: + diminished lung sounds, + crackles and + wheezes Gastrointestinal (Abdomen): normal bowel sounds, soft, nontender, no hepatosplenomegaly Skin: no rashes, warm and dry Neurologic: PERRL, EOMI, accommodation nl, no face palsy, no dysarthria Psychiatric: A+Ox3, euthymic affect Results & Data Results & Data ([facility]) Vital Signs (Past 12 Hours) Vital Signs Temp Pulse Pulse Resp BP BP Pulse Ox 01/26/20 15:43 36.7 C 70 18 127/82 94 01/26/20 13:18 97 H 22 97 01/26/20 12:13 36.5 C 106 H 20 120/65 99 01/26/20 08:03 36.7 C 91 H 18 114/76 95 01/26/20 07:55 92 H 22 90 01/26/20 07:30 88
[2020-01-26] MEDS: KETOROLAC TROMETHAMINE 15 MG/ML VIAL IV PRN (19:44)
[2020-01-26] MEDS: CYCLOBENZAPRINE HCL 5 MG TAB PO PRN (20:45)
[2020-01-26] MEDS: MONTELUKAST SODIUM 10 MG TABLET PO SCH (20:45)
[2020-01-27] MEDS: SODIUM CHLOR 7% 4 ML NEB NEB SCH ×2 (07:11→20:51)
[2020-01-27] MEDS: ALBUT/IPRATROP 3MG/0.5MG NEB 3 ML VIAL INH SCH ×2 (07:11→20:50)
[2020-01-27] MEDS: TOBRAMYCIN SULFATE 300 MG in SYRINGE 0 ML INH SCH ×2 (07:11→20:50)
[2020-01-27] MEDS: BUDESONIDE 0.5 MG/2 ML VIAL (PULMICORT) NEB SCH ×2 (07:12→20:50)
[2020-01-27] MEDS: FUROSEMIDE 40 MG TAB PO SCH (08:00)
[2020-01-27] MEDS: PANTOprazole 40 MG TAB PO SCH ×2 (08:05→16:41)
[2020-01-27] MEDS: clonazePAM 0.25 MG TAB PO SCH ×2 (08:05→20:22)
[2020-01-27] MEDS: FENOFIBRATE NANOCRYSTALLIZED 48 MG TABLET PO SCH (08:05)
[2020-01-27] MEDS: CEROVITE ADV FORMULA TAB PO SCH (08:05)
[2020-01-27] MEDS: METOPROLOL TARTRATE 25 MG TAB PO SCH ×2 (08:05→20:13)
[2020-01-27] MEDS: guaiFENesin 600 MG TABCR PO SCH ×2 (08:05→20:13)
[2020-01-27] MEDS: FAMOTIDINE 20 MG TAB PO SCH ×2 (08:06→20:14)
[2020-01-27] MEDS: FERROUS SULFATE 325 MG TAB PO SCH ×2 (08:07→16:42)
[2020-01-27] MEDS: predniSONE 10 MG TABLET PO SCH (08:07)
[2020-01-27] MEDS: CALCIUM 600MG + VIT D 400 IU TAB PO SCH ×2 (08:07→16:42)
[2020-01-27] MEDS: BREXPIPRAZOLE 4 MG PO SCH (08:08)
[2020-01-27] MEDS: FLUTICASONE PROPIONATE NA SPR 16 GM BTL NAE SCH (08:09)
[2020-01-27] MEDS: cloZAPine 100 MG TAB PO SCH ×2 (08:09→16:42)
[2020-01-27] MEDS: KETOCONAZOLE 2% CR 15 GM TUBE EXT SCH ×3 (08:09→20:15)
[2020-01-27] MEDS: CLOTRIMAZOLE/BETAMETHASONE CR 15 GM TUBE EXT SCH ×2 (08:10→20:16)
[2020-01-27] MEDS: UMECLIDINIUM/VILANTEROL 62.5/25MCG 7 PUFFS/INHALER INH SCH (08:11)
[2020-01-27] MEDS: CALCITONIN SALMON NA 200 IU/AC 3.7 ML BTL NAE SCH (08:12)
[2020-01-27] MEDS: FOLIC ACID 1 MG TAB PO SCH (08:14)
[2020-01-27] MEDS: INSULIN ASPART 100 UNITS/ML 3 ML PEN SC SCH ×4 (08:22→21:47)
[2020-01-27] MEDS: DOCUSATE SODIUM 100 MG CAP PO SCH ×2 (11:10→20:22)
[2020-01-27] MEDS: CEFEPIME 2,000 MG in SYRINGE 0 ML IV SCH ×2 (11:11→20:22)
[2020-01-27] MEDS: busPIRone 15 MG TAB PO SCH ×2 (11:11→20:13)
[2020-01-27] MEDS: VORTIOXETINE HYDROBROMIDE 20MG PO SCH (11:13)
[2020-01-27] MEDS: traMADol HCL 50 MG TABLET PO PRN ×2 (12:42→20:12)
[2020-01-27] MEDS: LORATADINE 10 MG TAB PO SCH (16:42)
[2020-01-27] MEDS: DICLOFENAC SOD 1% GEL 100 GM TUBE EXT PRN (16:44)
--- NOTE | 2020-01-27 17:04 | Palliative Care Consultation ---
Date of Consultation January 27, 2020 Assessment & Plan (1) Palliative care encounter: I talked with Amelia at bedside about her understanding of her disease. She openly admits that she is going to from her breathing problems. She has a strong donald which comforts her. She does have some difficulty maintaining topic of conversation but after extensive discussion and she confirms that she would not want CPR or to be hooked to breathing machine. She is worried about how to manage her symptoms and how we would treat this at home. Her preference is not to return to the hospital, however, she feels like she would need to call 911 if she had problems with her breathing. We discussed her anxiety about her breathing problems and being able to manage her symptoms with medication. "But they would just stand there and let me ". We discussed support available and being able to relieve her shortness of breath and anxiety until her dying time. "That's what I want". She notes that her sister, Ranjana Tello would be her surrogate decision maker. I was unable to reach Ranjana today but will reach out to her tomorrow to discuss our conversation and family comfort with plan of discharge home with hospice. Thank you for allowing us to participate in her care. (2) Acute and chronic respiratory failure with hypoxia: (3) Pulmonary fibrosis: (4) COPD (chronic obstructive pulmonary disease): COPD type: unspecified COPD Qualified Code(s): J44.9 - Chronic obstructive pulmonary disease, unspecified History of Present Illness Reason for Consultation: Goals of care Requesting Physician: Dr. Moreland Attending Physician: Vanessa Dick MD History of Present Illness 59 yo lady with COPD and pulmonary fibrosis who has had two hospitalizations in the last month for acute on chronic respiratory failure. She has comorbid esophageal dysmotility, diabetes, CKD and schizophrenia. She has had functional decline and continued high flow O2 needs. We have been consulted to assist with goals of care. Amelia is very anxious initially and focused on her breathing but breathing is less labored and conversation continues and she is distracted from breathing. She is able to stand and pivot to bed with assistance. She lives at home with her mother and sister with caregiver support. She has considered going to [facility] for rehab after discharge but she and her family would prefer that she return home. Allergies Allergy/AdvReac Type Severity Reaction Status Date / Time hydroxyzine Allergy Unknown UNKNOWN Verified 01/24/20 09:37 fluphenazine AdvReac Intermediate confusion Verified 01/24/20 09:37 haloperidol AdvReac Intermediate "MAKES ME Verified 01/24/20 09:37 GO INTO BLACKOUT" hydrocodone AdvReac Intermediate DROWSY Verified 01/24/20 09:37 molindone AdvReac Intermediate PT FEELS Verified 01/24/20 09:37 LIKE SHES "JUMPING OUT OF HER SKIN" morphine AdvReac Intermediate DROWSY Verified 01/24/20 09:37 lithium AdvReac Mild "LEVEL CAN Verified 01/24/20 09:37 GET TOO HIGH" benzonatate AdvReac Unknown Patient Unverified 01/24/20 09:37 [From Adryan Small] states contraindication with other pulmonary meds Home Medications Medication Instructions Recorded Confirmed Type albuterol sulfate [Ventolin HFA] 2 puff INHALATION Q6H PRN 12/27/17 01/24/20 History calcitonin (salmon) 1 spray INTRANASAL QAM 12/27/17 01/24/20 History fenofibrate nanocrystallized 48 mg PO QAM 12/27/17 01/24/20 History [Tricor] ferrous sulfate [FerrouSul] 325 mg PO BIDM 12/27/17 01/24/20 History folic acid 1 mg PO QAM 12/27/17 01/24/20 History montelukast [Singulair] 10 mg PO HS 12/27/17 01/24/20 History pantoprazole [Protonix] 40 mg PO BIDM 02/18/18 01/24/20 History magnesium hydroxide [Milk of 30 ml PO HS PRN 03/02/18 01/24/20 History Magnesia] albuterol sulfate 2.5 mg INHALATION TID PRN 07/29/18 01/24/20 History calcium-vitamin D3-vitamin K 1 tab PO BIDM 07/30/18 01/24/20 History tramadol 50 mg PO Q6 PRN 08/20/18 01/24/20 History Januvia 100 mg PO QAM 11/21/18 01/24/20 History acetaminophen [Tylenol Extra 1,000 mg PO TID PRN MDD 2 GR/24 11/21/18 01/24/20 History Strength] HOURS clozapine [Clozaril] 100 mg PO BIDM 11/21/18 01/24/20 History diclofenac sodium [Voltaren] 2 g TOPICAL QID PRN 11/21/18 01/24/20 History docusate sodium 100 mg PO AMHS 11/21/18 01/24/20 History fluticasone propionate [Flonase 2 spray INTRANASAL QAM 11/21/18 01/24/20 History Allergy Relief] metoprolol tartrate 12.5 mg PO AMHS 11/21/18 01/24/20 History Mucinex 1,200 mg PO AMHS 02/14/19 01/24/20 History cyclobenzaprine 5 mg PO BID PRN 02/14/19 01/24/20 History Trintellix 20 mg PO QAM 03/12/19 01/24/20 History Arnuity Ellipta 1 inh INHALATION QAM 04/12/19 01/24/20 History clotrimazole-betamethasone 1 applic TOPICAL BID 04/12/19 01/24/20 History multivitamin with minerals 1 tab PO QAM 04/12/19 01/24/20 History Rexulti 4 mg PO QAM 10/05/19 01/24/20 History Trelegy Ellipta 1 inh INHALATION QAM 10/05/19 01/24/20 History celecoxib [Celebrex] 100 mg PO BIDM 10/05/19 01/24/20 History famotidine 20 mg PO AMHS 10/05/19 01/24/20 History ketoconazole 1 applic TOPICAL TID 10/05/19 01/24/20 History loratadine 10 mg PO QDD 10/05/19 01/24/20 History melatonin 5 mg PO HS PRN 10/05/19 01/24/20 History promethazine 6.25 mg PO QID PRN 10/05/19 01/24/20 History sodium chloride [Deep Sea Nasal] 2 spray INTRANASAL TID PRN 10/05/19 01/24/20 History terbinafine HCl 1 applic TOPICAL DIRECTED PRN 10/05/19 01/24/20 History clonazepam See Rx Instructions .ROUTE .COMPLEX 11/15/19 01/24/20 History furosemide [Lasix] 20 mg PO DAILY PRN 11/18/19 01/24/20 History Mavyret 3 tab PO DAILY 01/06/20 01/24/20 History budesonide 1 mg INHALATION BID 01/06/20 01/24/20 History prednisone 5 mg PO QAM 01/06/20 01/24/20 History buspirone 15 mg PO BID 01/08/20 01/24/20 History Patient History Medical History Anxiety Chronic back pain Chronic dyspnea Chronic pain history of excessive sedation on narcotics no narcotics except for acute / severe pain Chronic respiratory failure with hypoxia, on home O2 therapy COPD (chronic obstructive pulmonary disease) Depression Diabetes mellitus type 2, controlled Do not resuscitate status Discussed with pt + sister 11/14. No CPR. Temporary intubation / mechanical vent OK. DVT (deep venous thrombosis) right leg--no blood thinners GERD (gastroesophageal reflux disease) Headache above the eye region Hepatitis C History of anesthesia reaction did not receive enough anesthesia during a colonoscopy and felt everything Orthostatic hypotension Osteoarthritis Pulmonary fibrosis Schizophrenia Spinal stenosis Surgical History History of open reduction and internal fixation (ORIF) procedure left femur--rods in place History of thoracic spinal fusion fusion and decompression t6-t12 History of tooth extraction all teeth removed History of total abdominal hysterectomy and bilateral salpingo-oophorectomy History of vascular access device Aport on right side Family History Grandmother (Paternal) Family hx of colon cancer Social History Smoking Status: Former smoker Tobacco Type: Cigarettes Second Hand Exposure: No; Do You Dip or Chew Tobacco: No; Tobacco Cessation Education Requested by Patient: No Hx Alcohol Use: No Hx Substance Use: Yes Last Used Substance: Unknown Substance Use Type Other:: No longer Preferred Language: Turkmen Communication Ability: Effective Visual Impairment: No Limitations Senior Marketing Data Analyst Required: No Beliefs That Will Affect Care: None marital status: Single Current Living Situation: Family Current Living Situation Comment: Pt. lives with mother and sister. Feels Safe at Home: Yes Safety Concerns: Feels Safe At This Time Assistive Devices: Oxygen - at Night, Oxygen - Continuous, Walker and Wheelchair Review of Systems Review of Systems: [place] Symptom Assessment Scale Pain 0/3 Anxiety 2/3 Dyspnea 1/3 Constipation 0/3 Nausea 0/3 Palliative Performance Score 40% Physical Exam Constitutional: no acute distress Respiratory: normal respiratory effort Cardiovascular: Extremities: no edema Gastrointestinal (Abdomen): Percussion/Palpation: abdomen nontender Musculoskeletal: Extremities: strength 5/5 throughout Skin: no rashes, warm and dry Psychiatric: Orientation: alert and oriented x 3 Results & Data ([facility]) Vital Signs (Past 12 Hours) Vital Signs Temp Pulse Pulse Resp BP Pulse Ox 01/27/20 15:00 98.4 F 108 H 20 130/85 92 01/27/20 07:42 97.7 F 86 20 119/75 94 01/27/20 07:37 84 01/27/20 07:14 77 82 20 94 PG Care Time/CCT Total # of Minutes Spent Total Time Spent with Patient: Total time spent is greater than 50% in coordination of care (as documented) at patient's floor/unit and/or counseling patient: 70 minutes total time with more than 50% of time spent on discussing goals of care and symptom mangagement. Coding Level of Care Code 31110 Inpt Consult Level 4 Diagnoses Palliative care encounter Z51.5 Acute and chronic respiratory failure with hypoxia J96.21 Pulmonary fibrosis J84.10 COPD (chronic obstructive pulmonary disease) J44.9 COPD type: unspecified COPD Time Spent (min) 70
--- NOTE | 2020-01-27 17:33 | Hospitalist Progress Note ---
Date of Service January 27, 2020 Assessment & Plan (1) Acute and chronic respiratory failure with hypoxia: Presented with acute on chronic hypoxemic respiratory failure with COPD exacerbation Possible underlying bronchitis/pneumonia COVID 19 negative Recent admission, sputum culture positive for Pseudomonas on IV cefepime / Tobramycin Neb tx ordered by Pulm cont Neb tx /home inhaler tx Pulmonology input requested, appreciate input-advanced interstitial lung disease ,underlying co -morbidities , over all prognosis remains poor pt admitted twice this month for copd exacerbation , resp failure multiple admissions in past with resp failure palliative care consulted by Pulm appreciate input from palliative care team pt voiced -that she does not want to go to rehab or end up in [facility] wants to return home , Pt's mother and sister is involved in her care has multiple hours of care givers at home possibility of return home with hospice discussed with pt -due to underlying Psychiatric illness -pt finds it difficult to process all the information and make a decision for goal of care requests to have discussion with her sister and mother Palliative care Dr Ardon will D/w pt;s sister tomorrow social service following for Dc planning pt is DNR/DNI cont PO Prednisone 10 mg daily History of schizoaffective disorder: Mood stable no delusion or hallucination Continue outpatient meds CODE STATUS: Discussed with patient DNR/DNI DVT prophylaxis: Moderate to high risk given poor mobility/fall functional decline for respiratory failure Ordered subcu heparin Disposition: possible d/c home with home hospice in next few days after d/w pt;s family Admission and Anticipated Discharge Date Admission Date: January 24, 2020 Subjective Follow up visit for COPD exacerbation /ac on chronic resp failure : sitting on chair , says she feels well complains of headache -which has been a chronic issue no fever since admission no SOB , cough has improved Review of Systems Review of Systems: All systems reviewed & are unremarkable except as noted in HPI & below Physical Exam Constitutional: WD/WN, vitals as above + ill appearing Eyes: PERRL, conjunctivae normal, anicteric sclerae ENMT: external ear and nose normal, oropharynx normal Neck: trachea midline, no thyromegaly Respiratory: + respiratory distress and + cough Auscultation: + diminished lung sounds, + crackles and + wheezes Gastrointestinal (Abdomen): normal bowel sounds, soft, nontender, no hepatosplenomegaly Skin: no rashes, warm and dry Neurologic: PERRL, EOMI, accommodation nl, no face palsy, no dysarthria Psychiatric: A+Ox3, euthymic affect Results & Data Results & Data ([facility]) Vital Signs (Past 12 Hours) Vital Signs Temp Pulse Pulse Resp BP Pulse Ox 01/27/20 15:00 36.9 C 108 H 20 130/85 92 01/27/20 07:42 36.5 C 86 20 119/75 94 01/27/20 07:37 84 01/27/20 07:14 77 82 20 94
[2020-01-27] MEDS: MONTELUKAST SODIUM 10 MG TABLET PO SCH (20:14)
[2020-01-27] MEDS: KETOROLAC TROMETHAMINE 15 MG/ML VIAL IV PRN (21:51)
[2020-01-28] MEDS: CYCLOBENZAPRINE HCL 5 MG TAB PO PRN ×2 (00:06→21:36)
[2020-01-28] MEDS: MELATONIN 3 MG TAB PO PRN (00:06)
[2020-01-28] MEDS: BUDESONIDE 0.5 MG/2 ML VIAL (PULMICORT) NEB SCH ×2 (07:47→19:41)
[2020-01-28] MEDS: SODIUM CHLOR 7% 4 ML NEB NEB SCH ×2 (07:48→20:03)
[2020-01-28] MEDS: ALBUT/IPRATROP 3MG/0.5MG NEB 3 ML VIAL INH SCH ×2 (07:48→19:41)
[2020-01-28] MEDS: TOBRAMYCIN SULFATE 300 MG in SYRINGE 0 ML INH SCH ×2 (07:48→20:04)
[2020-01-28] MEDS: DOCUSATE SODIUM 100 MG CAP PO SCH ×2 (09:00→21:03)
[2020-01-28] MEDS: CEFEPIME 2,000 MG in SYRINGE 0 ML IV SCH ×2 (09:18→21:07)
[2020-01-28] MEDS: clonazePAM 0.25 MG TAB PO SCH ×2 (09:18→21:03)
[2020-01-28] MEDS: BREXPIPRAZOLE 4 MG PO SCH (09:18)
[2020-01-28] MEDS: FAMOTIDINE 20 MG TAB PO SCH ×2 (09:19→21:03)
[2020-01-28] MEDS: FOLIC ACID 1 MG TAB PO SCH (09:19)
[2020-01-28] MEDS: CEROVITE ADV FORMULA TAB PO SCH (09:19)
[2020-01-28] MEDS: FUROSEMIDE 40 MG TAB PO SCH (09:19)
[2020-01-28] MEDS: cloZAPine 100 MG TAB PO SCH ×2 (09:19→17:01)
[2020-01-28] MEDS: predniSONE 10 MG TABLET PO SCH (09:20)
[2020-01-28] MEDS: FERROUS SULFATE 325 MG TAB PO SCH ×2 (09:20→17:02)
[2020-01-28] MEDS: CLOTRIMAZOLE/BETAMETHASONE CR 15 GM TUBE EXT SCH ×2 (09:20→21:04)
[2020-01-28] MEDS: FLUTICASONE PROPIONATE NA SPR 16 GM BTL NAE SCH (09:20)
[2020-01-28] MEDS: busPIRone 15 MG TAB PO SCH ×2 (09:21→21:03)
[2020-01-28] MEDS: UMECLIDINIUM/VILANTEROL 62.5/25MCG 7 PUFFS/INHALER INH SCH (09:21)
[2020-01-28] MEDS: CALCITONIN SALMON NA 200 IU/AC 3.7 ML BTL NAE SCH (09:21)
[2020-01-28] MEDS: METOPROLOL TARTRATE 25 MG TAB PO SCH ×2 (09:21→21:03)
[2020-01-28] MEDS: KETOCONAZOLE 2% CR 15 GM TUBE EXT SCH ×3 (09:21→21:07)
[2020-01-28] MEDS: guaiFENesin 600 MG TABCR PO SCH ×2 (09:22→21:03)
[2020-01-28] MEDS: FENOFIBRATE NANOCRYSTALLIZED 48 MG TABLET PO SCH (09:22)
[2020-01-28] MEDS: CALCIUM 600MG + VIT D 400 IU TAB PO SCH ×2 (09:22→17:02)
[2020-01-28] MEDS: PANTOprazole 40 MG TAB PO SCH ×2 (09:23→17:03)
[2020-01-28] MEDS: VORTIOXETINE HYDROBROMIDE 20MG PO SCH (09:23)
[2020-01-28] MEDS: INSULIN ASPART 100 UNITS/ML 3 ML PEN SC SCH ×4 (09:27→21:42)
[2020-01-28] MEDS: traMADol HCL 50 MG TABLET PO PRN ×3 (10:58→23:15)
--- NOTE | 2020-01-28 16:36 | Palliative Care Progress Note ---
Date of Service January 28, 2020 Assessment & Plan (1) Palliative care encounter: I talked with Amelia at bedside and reviewed our conversation from yesterday. She confirms that her wish is to go home after discharge. She would prefer not to return to the hospital. She understands that she is approaching her dying time and accepts that. She is worried about what would be done if she gets short of breath at home. We discussed hospice at length and the support that would be available to manage her symptoms at home. I also spoke with her sister, Ranjana, on the phone. She supports Amelia's wish to be DNR/DNI and to return home. She is working with case management to enhance the support that they have at home for her discharge. We discussed hospice and managing Amelia's care and comfort at home rather than returning to the hospital. She supports this but would like for her to be on tobramycin per Dr. Moreland's recommendation for a period of time. This would likely not be covered by hospice. Palliative care could follow as an outpatient to assist with symptom managment and transition to hospice at the appropriate time. (2) Dyspnea: (3) Chronic pain: (4) COPD (chronic obstructive pulmonary disease): (5) Pulmonary fibrosis: Admission and Anticipated Discharge Date Admission Date: January 24, 2020 Subjective Awake and alert in bed. Initially very insistent about pain medication but easily redirected. She c/o pain in her legs which has been managed with tylenol and tramadol. Review of Systems Review of Systems: [place] Symptom Assessment Scale Pain 1/3 Dyspnea 1/3 Nausea 0/3 Anxiety 2/3 Depression 0/3 Constipation 0/3 Drowsiness 0/3 Physical Exam Constitutional: no acute distress ENMT: Mouth: + dry oral mucous membranes Respiratory: no labored breathing Gastrointestinal (Abdomen): obese Musculoskeletal: Extremities: strength 5/5 throughout Skin: no rashes, warm and dry Results & Data ([facility]) Vital Signs (Past 12 Hours) Vital Signs Temp Pulse Pulse Resp BP BP Pulse Ox 01/28/20 16:20 98.1 F 99 H 20 126/82 94 01/28/20 11:59 97.7 F 109 H 22 119/83 95 01/28/20 07:52 97 H 01/28/20 07:49 113 H 19 95 01/28/20 07:46 97.7 F 116 H 22 144/82 H 90 PG Care Time/CCT Total # of Minutes Spent Total Time Spent with Patient: Total time spent is greater than 50% in coordination of care (as documented) at patient's floor/unit and/or counseling patient: Total visit time 50 minutes with more than 50% of time spent on discussing goals of care, symptom management, hospice care. Coding Level of Care Code 98079 Subseq Hosp Care Lvl 3 Diagnoses Palliative care encounter Z51.5 Dyspnea R06.00 Chronic pain G89.29 COPD (chronic obstructive pulmonary disease) J44.9 COPD type: unspecified COPD Pulmonary fibrosis J84.10 Time Spent (min) 50 (1) COPD (chronic obstructive pulmonary disease) COPD type: unspecified COPD Qualified Code(s): J44.9 - Chronic obstructive pulmonary disease, unspecified
[2020-01-28] MEDS: LORATADINE 10 MG TAB PO SCH (17:00)
[2020-01-28] MEDS: BISMUTH SUBSALICYLATE SUSP PO PRN (18:22)
--- NOTE | 2020-01-28 19:14 | Hospitalist Progress Note ---
Date of Service January 28, 2020 Assessment & Plan (1) Acute and chronic respiratory failure with hypoxia: Presented with acute on chronic hypoxemic respiratory failure with COPD exacerbation Possible underlying bronchitis/pneumonia COVID 19 negative Recent admission, sputum culture positive for Pseudomonas on IV cefepime / Tobramycin Neb tx ordered by Pulm cont Neb tx /home inhaler tx Pulmonology input requested, appreciate input-advanced interstitial lung disease ,underlying co -morbidities , over all prognosis remains poor pt admitted twice this month for copd exacerbation , resp failure multiple admissions in past with resp failure palliative care consulted by Pulm appreciate input from palliative care team pt voiced -that she does not want to go to rehab or end up in [facility] wants to return home , Pt's mother and sister is involved in her care has multiple hours of care givers at home possibility of return home with hospice discussed with pt -due to underlying Psychiatric illness -pt finds it difficult to process all the information and make a decision for goal of care requests to have discussion with her sister and mother Palliative care Dr Ardon will D/w pt and plan to talk to sister today social service following for Dc planning pt is DNR/DNI cont PO Prednisone 10 mg daily History of schizoaffective disorder: Mood stable no delusion or hallucination Continue outpatient meds CODE STATUS: Discussed with patient DNR/DNI DVT prophylaxis: Moderate to high risk given poor mobility/fall functional decline for respiratory failure Ordered subcu heparin Disposition: possible d/c home with home hospice in next few days after d/w pt;s family Admission and Anticipated Discharge Date Admission Date: January 24, 2020 Subjective Pt was seen and examined Lying in bed with no acute distress Yesterday palliative met with pt and pt would like to transition to hospice Palliative tried to reach her sister who is the surrogate to discuss with her Pt said that her breathing seems to be alittle better today Denies any chest pain, palpitation and fever Physical Exam Physical Exam: General- No acute distress Head- atraumatic Eyes- PERRL, EOMI, ENT- oropharynx clear Neck- supple, no JVD Lungs- diminished breath sound Heart- regular rhythm; no murmur Abdomen- normal bowel sounds, soft, nontender Extremities- no calf tenderness Neuro- alert, awake, PERRL, EOMI; no facial palsy; no dysarthria Skin- warm & dry Results & Data Results & Data ([facility]) Vital Signs (Past 12 Hours) Vital Signs Temp Pulse Pulse Resp BP BP Pulse Ox 01/28/20 18:38 36.7 C 101 H 20 120/81 90 01/28/20 16:20 36.7 C 99 H 20 126/82 94 01/28/20 16:00 96 H 01/28/20 11:59 36.5 C 109 H 22 119/83 95 01/28/20 07:52 97 H 01/28/20 07:49 113 H 19 95 01/28/20 07:46 36.5 C 116 H 22 144/82 H 90
[2020-01-28] MEDS: ACETAMINOPHEN 500 MG TAB PO PRN (21:02)
[2020-01-28] MEDS: MONTELUKAST SODIUM 10 MG TABLET PO SCH (21:03)
[2020-01-29] MEDS: BUDESONIDE 0.5 MG/2 ML VIAL (PULMICORT) NEB SCH ×2 (08:42→20:58)
[2020-01-29] MEDS: ALBUT/IPRATROP 3MG/0.5MG NEB 3 ML VIAL INH SCH ×2 (08:42→20:58)
[2020-01-29] MEDS: TOBRAMYCIN SULFATE 300 MG in SYRINGE 0 ML INH SCH ×2 (08:43→21:18)
[2020-01-29] MEDS: SODIUM CHLOR 7% 4 ML NEB NEB SCH ×2 (08:47→21:08)
[2020-01-29] MEDS: clonazePAM 0.25 MG TAB PO SCH ×2 (09:18→20:44)
[2020-01-29] MEDS: ACETAMINOPHEN 500 MG TAB PO PRN ×2 (09:18→19:31)
[2020-01-29] MEDS: VORTIOXETINE HYDROBROMIDE 20MG PO SCH (09:19)
[2020-01-29] MEDS: BREXPIPRAZOLE 4 MG PO SCH (09:19)
[2020-01-29] MEDS: METOPROLOL TARTRATE 25 MG TAB PO SCH ×2 (09:20→20:48)
[2020-01-29] MEDS: cloZAPine 100 MG TAB PO SCH ×2 (09:20→17:39)
[2020-01-29] MEDS: FENOFIBRATE NANOCRYSTALLIZED 48 MG TABLET PO SCH (09:20)
[2020-01-29] MEDS: CEROVITE ADV FORMULA TAB PO SCH (09:21)
[2020-01-29] MEDS: FUROSEMIDE 40 MG TAB PO SCH (09:22)
[2020-01-29] MEDS: busPIRone 15 MG TAB PO SCH ×2 (09:22→20:46)
[2020-01-29] MEDS: PANTOprazole 40 MG TAB PO SCH ×2 (09:22→17:40)
[2020-01-29] MEDS: predniSONE 10 MG TABLET PO SCH (09:22)
[2020-01-29] MEDS: FAMOTIDINE 20 MG TAB PO SCH ×2 (09:22→20:48)
[2020-01-29] MEDS: FLUTICASONE PROPIONATE NA SPR 16 GM BTL NAE SCH (09:23)
[2020-01-29] MEDS: CALCITONIN SALMON NA 200 IU/AC 3.7 ML BTL NAE SCH (09:23)
[2020-01-29] MEDS: FERROUS SULFATE 325 MG TAB PO SCH ×2 (09:23→17:40)
[2020-01-29] MEDS: UMECLIDINIUM/VILANTEROL 62.5/25MCG 7 PUFFS/INHALER INH SCH (09:23)
[2020-01-29] MEDS: CALCIUM 600MG + VIT D 400 IU TAB PO SCH ×2 (09:24→17:39)
[2020-01-29] MEDS: guaiFENesin 600 MG TABCR PO SCH ×2 (09:24→20:47)
[2020-01-29] MEDS: FOLIC ACID 1 MG TAB PO SCH (09:24)
[2020-01-29] MEDS: KETOCONAZOLE 2% CR 15 GM TUBE EXT SCH ×3 (09:25→20:50)
[2020-01-29] MEDS: CLOTRIMAZOLE/BETAMETHASONE CR 15 GM TUBE EXT SCH ×2 (09:25→20:51)
[2020-01-29] MEDS: CEFEPIME 2,000 MG in SYRINGE 0 ML IV SCH ×2 (09:25→20:46)
[2020-01-29] MEDS: INSULIN ASPART 100 UNITS/ML 3 ML PEN SC SCH ×4 (09:28→20:38)
[2020-01-29] MEDS: traMADol HCL 50 MG TABLET PO PRN ×2 (11:42→20:45)
[2020-01-29] MEDS: DOCUSATE SODIUM 100 MG CAP PO SCH ×2 (13:16→20:44)
--- NOTE | 2020-01-29 14:43 | Palliative Care Progress Note ---
Date of Service January 29, 2020 Assessment & Plan (1) Palliative care encounter: Talked with Amelia about plan for discharge home with nebulized tobramycin and home care with her caregiver support network that she had prior to admission. We can monitor her on the tobramycin and transition to hospice when appropriate. She is agreeable to this. She asked some questions about what will cause her and what it will be like. We discussed her concerns and what to expect. Anticipate discharge tomorrow. (2) Dyspnea: No dyspnea at rest. (3) Constipation: She is on colace. She uses miralax at home and is requesting that today. Order placed for prn use. Admission and Anticipated Discharge Date Admission Date: January 24, 2020 Subjective Has been working with PT for increased activity. She does not have dyspnea at rest. She is concerned about constipation. She had large BM on01/26. She denies nausea. Appetite is good. Review of Systems Review of Systems: [place] Symptom Assessment Scale Pain1/3 Dyspnea 1/3 Nausea 0/3 Anorexia 0/3 Anxiety 1/3 Drowsiness 0/3 Palliative Performance Score 50% Physical Exam Constitutional: no acute distress Respiratory: no labored breathing Gastrointestinal (Abdomen): Inspection/Auscultation: abdomen not distended Musculoskeletal: Extremities: strength 5/5 throughout Skin: no rashes, warm and dry Psychiatric: Orientation: alert and oriented x 3 Results & Data ([facility]) Vital Signs (Past 12 Hours) Vital Signs Temp Pulse Pulse Resp BP Pulse Ox 01/29/20 08:44 99 H 16 96 01/29/20 07:39 98.2 F 82 20 128/84 96 01/29/20 07:36 85 PG Care Time/CCT Total # of Minutes Spent Total Time Spent with Patient: Total time spent is greater than 50% in coordination of care (as documented) at patient's floor/unit and/or counseling patient: 40 Coding Level of Care Code 70360 Subseq Hosp Care Lvl 3 Diagnoses Palliative care encounter Z51.5 Dyspnea R06.00 Constipation K59.00 Time Spent (min) 40
[2020-01-29] MEDS ORDERED: POLYETHYLENE (MIRALAX) 17 GM PACK PO PRN (14:46)
[2020-01-29] MEDS: CYCLOBENZAPRINE HCL 5 MG TAB PO PRN (15:50)
[2020-01-29] MEDS: LORATADINE 10 MG TAB PO SCH (15:51)
[2020-01-29] MEDS: BISMUTH SUBSALICYLATE SUSP PO PRN (17:38)
--- NOTE | 2020-01-29 20:19 | Hospitalist Progress Note ---
Date of Service January 29, 2020 Assessment & Plan (1) Acute and chronic respiratory failure with hypoxia: Presented with acute on chronic hypoxemic respiratory failure with COPD exacerbation Suspected Gram-Negative pneumonia CXR showed Progressively worsened bilateral interstitial opacities with mixed interstitial and alveolar opacities throughout the left lung. COVID 19 negative Recent admission, sputum culture positive for Pseudomonas Pulmonology on board continue cefepime / Tobramycin INH cont Neb tx /home inhaler tx Continue prednisone supplement Sister would like pt to discharge home with HH History of schizoaffective disorder: Mood stable no delusion or hallucination Continue outpatient meds CODE STATUS: Discussed with patient DNR/DNI DVT prophylaxis: Moderate to high risk given poor mobility/fall functional decline for respiratory failure Ordered subcu heparin Disposition: Discharge home with Home health Admission and Anticipated Discharge Date Admission Date: January 24, 2020 Subjective Follow up for respiratory failure Pt was seen and examined Lying in bed with no acute distress Pt said that she feels alot better compare to when she came She said that her breathing is much better She said that she feels like she is back to her baseline Denies any chest pain, palpitation, dizziness and fever Physical Exam Physical Exam: General- No acute distress Head- atraumatic Eyes- PERRL, EOMI, ENT- oropharynx clear Neck- supple, no JVD Lungs- diminished breath sound Heart- regular rhythm; no murmur Abdomen- normal bowel sounds, soft, nontender Extremities- no calf tenderness Neuro- alert, awake, PERRL, EOMI; no facial palsy; no dysarthria Skin- warm & dry Results & Data Results & Data ([facility]) Vital Signs (Past 12 Hours) Vital Signs Temp Pulse Resp BP Pulse Ox 01/29/20 19:03 36.8 C 120 H 18 116/82 90 01/29/20 15:43 36.5 C 91 H 18 120/81 93 01/29/20 08:44 99 H 16 96
[2020-01-29] MEDS: MONTELUKAST SODIUM 10 MG TABLET PO SCH (20:45)
[2020-01-29] MEDS: HEPARIN 100 UNIT/ML 5ML FLUSH FLUSH PRN (20:50)
[2020-01-29] MEDS: MELATONIN 3 MG TAB PO PRN (22:03)
[2020-01-30] MEDS: BUDESONIDE 0.5 MG/2 ML VIAL (PULMICORT) NEB SCH ×2 (07:46→20:32)
[2020-01-30] MEDS: ALBUT/IPRATROP 3MG/0.5MG NEB 3 ML VIAL INH SCH ×2 (07:46→20:32)
[2020-01-30] MEDS: SODIUM CHLOR 7% 4 ML NEB NEB SCH ×2 (07:46→20:32)
[2020-01-30] MEDS: TOBRAMYCIN SULFATE 300 MG in SYRINGE 0 ML INH SCH ×2 (07:46→20:32)
[2020-01-30] MEDS: FLUTICASONE PROPIONATE NA SPR 16 GM BTL NAE SCH (07:56)
[2020-01-30] MEDS: VORTIOXETINE HYDROBROMIDE 20MG PO SCH (07:56)
[2020-01-30] MEDS: UMECLIDINIUM/VILANTEROL 62.5/25MCG 7 PUFFS/INHALER INH SCH (07:56)
[2020-01-30] MEDS: BREXPIPRAZOLE 4 MG PO SCH (07:56)
[2020-01-30] MEDS: CALCITONIN SALMON NA 200 IU/AC 3.7 ML BTL NAE SCH (07:56)
[2020-01-30] MEDS: KETOCONAZOLE 2% CR 15 GM TUBE EXT SCH ×3 (07:57→22:28)
[2020-01-30] MEDS: clonazePAM 0.25 MG TAB PO SCH ×2 (07:57→22:36)
[2020-01-30] MEDS: CLOTRIMAZOLE/BETAMETHASONE CR 15 GM TUBE EXT SCH ×2 (07:57→22:31)
[2020-01-30] MEDS: METOPROLOL TARTRATE 25 MG TAB PO SCH ×2 (07:57→22:27)
[2020-01-30] MEDS: predniSONE 10 MG TABLET PO SCH (07:57)
[2020-01-30] MEDS: busPIRone 15 MG TAB PO SCH ×2 (07:58→22:26)
[2020-01-30] MEDS: guaiFENesin 600 MG TABCR PO SCH ×2 (07:58→22:30)
[2020-01-30] MEDS: FOLIC ACID 1 MG TAB PO SCH (07:58)
[2020-01-30] MEDS: CEROVITE ADV FORMULA TAB PO SCH (07:58)
[2020-01-30] MEDS: FUROSEMIDE 40 MG TAB PO SCH (07:58)
[2020-01-30] MEDS: FERROUS SULFATE 325 MG TAB PO SCH ×2 (07:58→16:51)
[2020-01-30] MEDS: FENOFIBRATE NANOCRYSTALLIZED 48 MG TABLET PO SCH (07:58)
[2020-01-30] MEDS: PANTOprazole 40 MG TAB PO SCH ×2 (07:58→16:51)
[2020-01-30] MEDS: cloZAPine 100 MG TAB PO SCH ×2 (07:58→16:51)
[2020-01-30] MEDS: FAMOTIDINE 20 MG TAB PO SCH ×2 (07:58→22:29)
[2020-01-30] MEDS: CALCIUM 600MG + VIT D 400 IU TAB PO SCH ×2 (07:58→16:50)
[2020-01-30] MEDS: INSULIN ASPART 100 UNITS/ML 3 ML PEN SC SCH ×4 (08:01→21:00)
[2020-01-30] MEDS: DOCUSATE SODIUM 100 MG CAP PO SCH ×2 (08:01→22:36)
[2020-01-30] MEDS: CEFEPIME 2,000 MG in SYRINGE 0 ML IV SCH ×2 (08:03→22:36)
[2020-01-30] MEDS: HEPARIN 100 UNIT/ML 5ML FLUSH FLUSH PRN (08:04)
[2020-01-30] MEDS: BISMUTH SUBSALICYLATE SUSP PO PRN (10:44)
[2020-01-30] MEDS: traMADol HCL 50 MG TABLET PO PRN ×3 (11:04→23:53)
[2020-01-30] MEDS: LORATADINE 10 MG TAB PO SCH (16:50)
[2020-01-30] MEDS: ACETAMINOPHEN 500 MG TAB PO PRN (18:49)
[2020-01-30] MEDS: CYCLOBENZAPRINE HCL 5 MG TAB PO PRN (19:42)
--- NOTE | 2020-01-30 20:37 | Communication Note ---
Date of Service: January 30, 2020 Home Medications Medication Instructions Recorded Confirmed albuterol sulfate [Ventolin HFA] 2 puff INHALATION Q6H PRN 12/27/17 01/24/20 calcitonin (salmon) 1 spray INTRANASAL QAM 12/27/17 01/24/20 fenofibrate nanocrystallized 48 mg PO QAM 12/27/17 01/24/20 [Tricor] ferrous sulfate [FerrouSul] 325 mg PO BIDM 12/27/17 01/24/20 folic acid 1 mg PO QAM 12/27/17 01/24/20 montelukast [Singulair] 10 mg PO HS 12/27/17 01/24/20 pantoprazole [Protonix] 40 mg PO BIDM 02/18/18 01/24/20 magnesium hydroxide [Milk of 30 ml PO HS PRN 03/02/18 01/24/20 Magnesia] albuterol sulfate 2.5 mg INHALATION TID PRN 07/29/18 01/24/20 calcium-vitamin D3-vitamin K 1 tab PO BIDM 07/30/18 01/24/20 tramadol 50 mg PO Q6 PRN 08/20/18 01/24/20 Januvia 100 mg PO QAM 11/21/18 01/24/20 acetaminophen [Tylenol Extra 1,000 mg PO TID PRN MDD 2 /11/21/18 01/24/20 Strength] HOURS clozapine [Clozaril] 100 mg PO BIDM 11/21/18 01/24/20 diclofenac sodium [Voltaren] 2 g TOPICAL QID PRN 11/21/18 01/24/20 docusate sodium 100 mg PO AMHS 11/21/18 01/24/20 fluticasone propionate [Flonase 2 spray INTRANASAL QAM 11/21/18 01/24/20 Allergy Relief] metoprolol tartrate 12.5 mg PO AMHS 11/21/18 01/24/20 Mucinex 1,200 mg PO AMHS 02/14/19 01/24/20 cyclobenzaprine 5 mg PO BID PRN 02/14/19 01/24/20 Trintellix 20 mg PO QAM 03/12/19 01/24/20 Arnuity Ellipta 1 inh INHALATION QAM 04/12/19 01/24/20 clotrimazole-betamethasone 1 applic TOPICAL BID 04/12/19 01/24/20 multivitamin with minerals 1 tab PO QAM 04/12/19 01/24/20 Rexulti 4 mg PO QAM 10/05/19 01/24/20 Trelegy Ellipta 1 inh INHALATION QAM 10/05/19 01/24/20 celecoxib [Celebrex] 100 mg PO BIDM 10/05/19 01/24/20 famotidine 20 mg PO AMHS 10/05/19 01/24/20 ketoconazole 1 applic TOPICAL TID 10/05/19 01/24/20 loratadine 10 mg PO QDD 10/05/19 01/24/20 melatonin 5 mg PO HS PRN 10/05/19 01/24/20 promethazine 6.25 mg PO QID PRN 10/05/19 01/24/20 sodium chloride [Deep Sea Nasal] 2 spray INTRANASAL TID PRN 10/05/19 01/24/20 terbinafine HCl 1 applic TOPICAL DIRECTED PRN 10/05/19 01/24/20 clonazepam See Rx Instructions .ROUTE .COMPLEX 11/15/19 01/24/20 furosemide [Lasix] 20 mg PO DAILY PRN 11/18/19 01/24/20 Mavyret 3 tab PO DAILY 01/06/20 01/24/20 budesonide 1 mg INHALATION BID 01/06/20 01/24/20 prednisone 5 mg PO QAM 01/06/20 01/24/20 buspirone 15 mg PO BID 01/08/20 01/24/20 Current Medications Acetaminophen (Acetaminophen 500 Mg Tab) 1,000 mg PO TID PRN PRN Reason: Pain Stop: 02/23/20 12:52 Last Admin: 01/30/20 18:49 Dose: 1,000 mg Documented by: Albuterol (Albut/Ipratrop 3mg/0.5mg Neb 3 Ml Vial) 3 ml NEB Q2H PRN PRN Reason: Shortness of Breath/Wheezing Stop: 02/23/20 12:49 Albuterol (Albuterol Hfa 8 Gm Inhaler) 2 puffs INH Q6H PRN PRN Reason: Shortness Of Breath Or Wheezin Stop: 02/23/20 12:52 Albuterol (Albut/Ipratrop 3mg/0.5mg Neb 3 Ml Vial) 3 ml INH BIDR [facility] Stop: 02/25/20 18:59 Last Admin: 01/30/20 07:46 Dose: 3 ml Documented by: Betamethasone/Clotrimazole (Clotrimazole/Betamethasone Cr 15 Gm Tube) 1 appln EXT BID DEVAN Stop: 02/23/20 20:59 Last Admin: 01/30/20 07:57 Dose: 1 appln Documented by: Bismuth Subsalicylate (Bismuth Subsalicylate Susp) 30 ml PO Q8H PRN PRN Reason: Diarrhea Stop: 02/25/20 12:28 Last Admin: 01/30/20 10:44 Dose: 30 ml Documented by: Brexpiprazole (Brexpiprazole 4mg) 1 ea PO DAILY [facility] Stop: 02/25/20 08:59 Last Admin: 01/30/20 07:56 Dose: 1 ea Documented by: Budesonide (Budesonide 0.5 Mg/2 Ml Vial (Pulmicort)) 0.5 mg NEB BIDR [facility] Stop: 02/23/20 18:59 Last Admin: 01/30/20 07:46 Dose: 0.5 mg Documented by: Buspirone HCl (Buspirone 15 Mg Tab) 15 mg PO BID [facility] Stop: 02/23/20 20:59 Last Admin: 01/30/20 07:58 Dose: 15 mg Documented by: Calcitonin [place] (Calcitonin [place] Na 200 Iu/Ac 3.7 Ml Btl) 1 sprays JOSE QAM [facility] Stop: 02/24/20 08:59 Last Admin: 01/30/20 07:56 Dose: 1 sprays Documented by: Clonazepam (Clonazepam 0.25 Mg Tab) 0.25 mg PO Q12 [facility] Stop: 02/23/20 20:59 Last Admin: 01/30/20 07:57 Dose: 0.25 mg Documented by: Clozapine (Clozapine 100 Mg Tab) 100 mg PO BIDM [facility] Stop: 02/23/20 16:59 Last Admin: 01/30/20 16:51 Dose: 100 mg Documented by: Cyclobenzaprine HCl (Cyclobenzaprine Hcl 5 Mg Tab) 5 mg PO BID PRN PRN Reason: Muscle Spasm Stop: 02/23/20 12:52 Last Admin: 01/30/20 19:42 Dose: 5 mg Documented by: Dextrose (Dextrose 50% 50 Ml Syringe) 25 - 50 ml IV UD PRN; Protocol PRN Reason: Hypoglycemia Protocol Stop: 02/23/20 12:58 Diclofenac Sodium (Diclofenac Sod 1% Gel 100 Gm Tube) 2 gm EXT QID PRN PRN Reason: Pain Stop: 02/23/20 12:52 Last Admin: 01/27/20 16:44 Dose: 2 gm Documented by: Docusate Sodium (Docusate Sodium 100 Mg Cap) 100 mg PO [facility] Stop: 02/23/20 20:59 Last Admin: 01/30/20 08:01 Dose: 100 mg Documented by: Famotidine (Famotidine 20 Mg Tab) 20 mg PO [facility] Stop: 02/23/20 20:59 Last Admin: 01/30/20 07:58 Dose: 20 mg Documented by: Fenofibrate (Fenofibrate Nanocrystallized 48 Mg Tablet) 48 mg PO [facility] Stop: 02/24/20 08:59 Last Admin: 01/30/20 07:58 Dose: 48 mg Documented by: Ferrous Sulfate (Ferrous Sulfate 325 Mg Tab) 325 mg PO BIDM [facility] Stop: 02/23/20 16:59 Last Admin: 01/30/20 16:51 Dose: 325 mg Documented by: Fluticasone Propionate (Fluticasone Propionate Na Spr 16 Gm Btl) 2 sprays JOSE [facility] Stop: 02/24/20 08:59 Last Admin: 01/30/20 07:56 Dose: 2 sprays Documented by: Folic Acid (Folic Acid 1 Mg Tab) 1 mg PO [facility] Stop: 02/24/20 08:59 Last Admin: 01/30/20 07:58 Dose: 1 mg Documented by: Furosemide (Furosemide 40 Mg Tab) 40 mg PO [facility] Stop: 02/24/20 08:59 Last Admin: 01/30/20 07:58 Dose: 40 mg Documented by: Glucagon (Glucagon For Inj 1 Mg Vial) 1 mg SQ UD PRN; Protocol PRN Reason: Hypoglycemia Protocol Stop: 02/23/20 12:58 Glucose (Glucose 10 Tabs/Tube) 4 - 8 tabs PO UD PRN; Protocol PRN Reason: Hypoglycemia Protocol Stop: 02/23/20 12:58 Glucose (Glucose 40% Gel 15 Gm Tube) 15 - 30 gm PO UD PRN; Protocol PRN Reason: Hypoglycemia Protocol Stop: 02/23/20 12:58 Guaifenesin (Guaifenesin 600 Mg Tabcr) 1,200 mg PO BID [facility] Stop: 02/23/20 20:59 Last Admin: 01/30/20 07:58 Dose: 1,200 mg Documented by: Heparin Sodium (Porcine) (Heparin 100 Unit/Ml 5ml Flush) 5 ml FLUSH PRN PRN PRN Reason: Flush Stop: 02/24/20 02:12 Last Admin: 01/30/20 08:04 Dose: 5 ml Documented by: Cefepime HCl 2,000 mg/ Syringe 20 mls @ 5 mls/min IV Q12 [facility]; Protocol Stop: 01/31/20 17:59 Last Admin: 01/30/20 08:03 Dose: 5 mls/min Documented by: Tobramycin Sulfate 300 mg/ (Syringe) 7.5 mls @ 0.0333 mls/min INH BIDR [facility] Stop: 01/31/20 18:59 Last Admin: 01/30/20 07:46 Dose: 0.0333 mls/min Documented by: Insulin Aspart (Insulin Aspart 100 Units/Ml 3 Ml Pen) 0 units SC ACHS [facility] Stop: 02/23/20 16:29 Last Admin: 01/30/20 17:24 Dose: Not Given Documented by: Ketoconazole (Ketoconazole 2% Cr 15 Gm Tube) 1 appln EXT TID [facility] Stop: 02/03/20 13:59 Last Admin: 01/30/20 13:57 Dose: 1 appln Documented by: Ketorolac Tromethamine (Ketorolac Tromethamine 15 Mg/Ml Vial) 15 mg IV Q6H PRN PRN Reason: Pain Stop: 01/31/20 19:26 Last Admin: 01/27/20 21:51 Dose: 15 mg Documented by: Loratadine (Loratadine 10 Mg Tab) 10 mg PO QDD [facility]AN Stop: 02/23/20 16:29 Last Admin: 01/30/20 16:50 Dose: 10 mg Documented by: Magnesium Hydroxide (Magnesium Hydroxide Susp 30 Ml Udc) 30 ml PO HS PRN PRN Reason: Constipation Stop: 02/23/20 12:52 Last Admin: 01/26/20 16:17 Dose: 30 ml Documented by: Melatonin (Melatonin 3 Mg Tab) 6 mg PO HS PRN PRN Reason: Sleep Stop: 02/23/20 13:38 Last Admin: 01/29/20 22:03 Dose: 6 mg Documented by: Metoprolol Tartrate (Metoprolol Tartrate 25 Mg Tab) 12.5 mg PO AMHS [facility] Stop: 02/23/20 20:59 Last Admin: 01/30/20 07:57 Dose: 12.5 mg Documented by: Miscellaneous (Carbohydrates For Hypoglycemia ) 15 - 30 gm PO UD PRN PRN Reason: Hypoglycemia Protocol Stop: 02/23/20 12:58 Montelukast Sodium (Montelukast Sodium 10 Mg Tablet) 10 mg PO HS DEVAN Stop: 02/23/20 20:59 Last Admin: 01/29/20 20:45 Dose: 10 mg Documented by: Multivitamins/Minerals (Calcium 600mg + Vit D 400 Iu Tab) 1 tab PO BIDM [facility] Stop: 02/23/20 16:59 Last Admin: 01/30/20 16:50 Dose: 1 tab Documented by: Multivitamins/Minerals (Cerovite Adv Formula Tab) 1 tab PO QAM [facility] Stop: 02/24/20 08:59 Last Admin: 01/30/20 07:58 Dose: 1 tab Documented by: Pantoprazole Sodium (Pantoprazole 40 Mg Tab) 40 mg PO BIDM [facility] Stop: 02/23/20 16:59 Last Admin: 01/30/20 16:51 Dose: 40 mg Documented by: Polyethylene Glycol (Polyethylene (Miralax) 17 Gm Pack) 17 gm PO DAILY PRN PRN Reason: Constipation Stop: 02/28/20 14:45 Last Admin: 01/30/20 10:44 Dose: 17 gm Documented by: Prednisone (Prednisone 10 Mg Tablet) 10 mg PO DAILY [facility] Stop: 02/24/20 08:59 Last Admin: 01/30/20 07:57 Dose: 10 mg Documented by: Promethazine HCl (Promethazine Hcl 12.5 Mg/10 Ml Udp) 6.25 mg PO QID PRN PRN Reason: Cough Stop: 02/23/20 12:52 Sodium Chloride (Sodium Chloride 0.65% Na Soln 45 Ml ([place])) 2 sprays JOSE TID PRN PRN Reason: DRYNESS Stop: 02/23/20 12:52 Sodium Chloride (Sodium Chlor 7% 4 Ml Neb) 4 ml NEB BIDR [facility] Stop: 02/23/20 18:59 Last Admin: 01/30/20 07:46 Dose: 4 ml Documented by: Terbinafine HCl (Terbinafine Cr 30 Gm Tube) 1 appln EXT BID PRN PRN Reason: RASH ON STOMACH Stop: 02/23/20 13:24 Tramadol HCl (Tramadol Hcl 50 Mg Tablet) 50 mg PO Q6 PRN PRN Reason: Pain Stop: 02/23/20 12:52 Last Admin: 01/30/20 16:52 Dose: 50 mg Documented by: Umeclidinium/Vilanterol (Umeclidinium/Vilanterol 62.5/25mcg 7 Puffs/Inhaler) 1 puffs INH DAILY [facility] Stop: 02/23/20 15:29 Last Admin: 01/30/20 07:56 Dose: 1 puffs Documented by: Vortioxetine (Vortioxetine Hydrobromide 20mg) 1 ea PO DAILY [facility] Stop: 02/25/20 08:59 Last Admin: 01/30/20 07:56 Dose: 1 ea Documented by: Hydroxyzine UNKNOWN fluphenazine confusion haloperidol "MAKES ME GO INTO BLACKOUT" hydrocodone Drowsy Molindone PT FEELS LIKE SHES "JUMPING OUT OF HER SKIN" Morphine DROWSY Lithim "LEVEL CAN GET TOO HIGH" Tessalon Patient states contraindication with other pulmonary meds
--- NOTE | 2020-01-30 20:42 | Hospitalist Progress Note ---
Date of Service January 30, 2020 Assessment & Plan (1) Acute and chronic respiratory failure with hypoxia: Presented with acute on chronic hypoxemic respiratory failure with COPD exacerbation Suspected Gram-Negative pneumonia CXR showed Progressively worsened bilateral interstitial opacities with mixed interstitial and alveolar opacities throughout the left lung. COVID 19 negative Recent admission, sputum culture positive for Pseudomonas Pulmonology on board continue cefepime / Tobramycin INH cont Neb tx /home inhaler tx Continue prednisone supplement Sister would like pt to discharge home with HH History of schizoaffective disorder: Mood stable no delusion or hallucination Continue outpatient meds Constipation Continue laxative/stool softner CODE STATUS: Discussed with patient DNR/DNI DVT prophylaxis: Moderate to high risk given poor mobility/fall functional decline for respiratory failure Ordered subcu heparin Disposition: Discharge home with Home health Admission and Anticipated Discharge Date Admission Date: January 24, 2020 Subjective Pt was seen and examined Sitting in chair with no distress Pt said that she feels much better She said that her breathing feels better She said that she has not had any bowel movement in the last 2 days Denies any chest pain, palpitation and fever Physical Exam Physical Exam: General- No acute distress Head- atraumatic Eyes- PERRL, EOMI, ENT- oropharynx clear Neck- supple, no JVD Lungs- diminished breath sound Heart- regular rhythm; no murmur Abdomen- normal bowel sounds, soft, nontender Extremities- no calf tenderness Neuro- alert, awake, PERRL, EOMI; no facial palsy; no dysarthria Skin- warm & dry Results & Data Results & Data ([facility]) Vital Signs (Past 12 Hours) Vital Signs Temp Pulse Resp BP 01/30/20 15:57 36.3 C L 112 H 18 119/86
[2020-01-30] MEDS: MONTELUKAST SODIUM 10 MG TABLET PO SCH (22:29)
[2020-01-30] MEDS: MAGNESIUM HYDROXIDE SUSP 30 ML UDC PO PRN (23:53)
[2020-01-30] MEDS: DICLOFENAC SOD 1% GEL 100 GM TUBE EXT PRN (23:54)
[2020-01-31] MEDS: MELATONIN 3 MG TAB PO PRN (00:36)
[2020-01-31 04:04] LABS: Mean Corpuscular Hgb Conc 32.4 g/dL (32-36); Mean Platelet Volume 10.4 fL (7.4-10.4); Platelet Count 209 K/uL (130-400)
[2020-01-31] MEDS: ACETAMINOPHEN 500 MG TAB PO PRN ×2 (04:18→19:36)
[2020-01-31 04:29] LABS: Hematocrit (blood only) 40.8 % (37-47); Hemoglobin 13.2 g/dL (12.0-16.0); Mean Corpuscular Hemoglobin 31.4 pg (25-34); Mean Corpuscular Volume 96.9 fL (80-100); RDW Coefficient of Variation 12.3 % (11.5-14.5); RDW Standard Deviation 43.5 fL (36.4-46.3); Red Blood Count 4.21 M/uL (4.2-5.4); White Blood Count 11.85 K/uL (4.8-10.8)
[2020-01-31 04:45] LABS: Basophils # (auto) 0.05 K/uL (0-0.2); Basophils % (auto) 0.4 %; Eosinophils # (auto) 0.61 K/uL (0-0.5); Eosinophils % (auto) 5.1 %; Immature Granulocytes # (auto) 0.11 K/uL (0.00-0.02); Immature Granulocytes % (auto) 0.9 %; Lymphocytes # (auto) 2.48 K/uL (1.2-3.4); Lymphocytes % (auto) 20.9 %; Monocytes # (auto) 1.17 K/uL (0.11-0.59); Monocytes % (auto) 9.9 %; Neutrophils # (auto) 7.43 K/uL (1.4-6.5); Neutrophils % (auto) 62.8 %
[2020-01-31] MEDS: INSULIN ASPART 100 UNITS/ML 3 ML PEN SC SCH ×4 (07:30→22:34)
[2020-01-31] MEDS: FERROUS SULFATE 325 MG TAB PO SCH ×2 (08:00→17:00)
[2020-01-31] MEDS: PANTOprazole 40 MG TAB PO SCH ×2 (08:00→17:00)
[2020-01-31] MEDS: CALCIUM 600MG + VIT D 400 IU TAB PO SCH ×2 (08:00→17:00)
[2020-01-31] MEDS: cloZAPine 100 MG TAB PO SCH ×2 (08:00→17:00)
[2020-01-31] MEDS: FOLIC ACID 1 MG TAB PO SCH (09:00)
[2020-01-31] MEDS: FENOFIBRATE NANOCRYSTALLIZED 48 MG TABLET PO SCH (09:00)
[2020-01-31] MEDS: KETOCONAZOLE 2% CR 15 GM TUBE EXT SCH ×3 (09:00→22:27)
[2020-01-31] MEDS: guaiFENesin 600 MG TABCR PO SCH ×2 (09:00→22:28)
[2020-01-31] MEDS: clonazePAM 0.25 MG TAB PO SCH ×2 (09:00→22:25)
[2020-01-31] MEDS: BREXPIPRAZOLE 4 MG PO SCH (09:00)
[2020-01-31] MEDS: DOCUSATE SODIUM 100 MG CAP PO SCH ×2 (09:00→22:15)
[2020-01-31] MEDS: predniSONE 10 MG TABLET PO SCH (09:00)
[2020-01-31] MEDS: METOPROLOL TARTRATE 25 MG TAB PO SCH ×2 (09:00→22:26)
[2020-01-31] MEDS: CEFEPIME 2,000 MG in SYRINGE 0 ML IV SCH (09:00)
[2020-01-31] MEDS: CEROVITE ADV FORMULA TAB PO SCH (09:00)
[2020-01-31] MEDS: CALCITONIN SALMON NA 200 IU/AC 3.7 ML BTL NAE SCH (09:00)
[2020-01-31] MEDS: busPIRone 15 MG TAB PO SCH ×2 (09:00→23:11)
[2020-01-31] MEDS: VORTIOXETINE HYDROBROMIDE 20MG PO SCH (09:00)
[2020-01-31] MEDS: FUROSEMIDE 40 MG TAB PO SCH (09:00)
[2020-01-31] MEDS: FAMOTIDINE 20 MG TAB PO SCH ×2 (09:00→22:28)
[2020-01-31] MEDS: FLUTICASONE PROPIONATE NA SPR 16 GM BTL NAE SCH (09:00)
[2020-01-31] MEDS: CLOTRIMAZOLE/BETAMETHASONE CR 15 GM TUBE EXT SCH ×2 (09:00→22:27)
[2020-01-31] MEDS: LORATADINE 10 MG TAB PO SCH (16:30)
--- NOTE | 2020-01-31 18:55 | Hospitalist Progress Note ---
Date of Service January 31, 2020 Assessment & Plan (1) Acute and chronic respiratory failure with hypoxia: Acute and chronic respiratory failure with hypoxia: Presented with acute on chronic hypoxemic respiratory failure with COPD exacerbation Suspected Gram-Negative pneumonia CXR showed progressively worsened bilateral interstitial opacities with mixed interstitial and alveolar opacities throughout the left lung. COVID 19 negative Sputum culture positive for Pseudomonas Pulmonology on board Will complete the course IV Cefepime / Tobramycin INH Continue Neb tx /home inhaler tx Continue prednisone supplement Sister would like pt to discharge home with Continue oxygen supplement History of schizoaffective disorder: Mood stable no delusion or hallucination Continue outpatient meds Constipation Pt had a BM today Continue laxative/stool softner CODE STATUS: DNR/DNI DVT prophylaxis on subcu heparin Disposition: Discharge home with Home health tomorrow Admission and Anticipated Discharge Date Admission Date: January 24, 2020 Subjective Pt was seen and examined for follow up of her respiratory failure. Lying in bed with no distress. Pt said that she feels much better. She said that her breathing feels better. She had a bowel movement this morning. Denies any chest pain, palpitation and fever Physical Exam Physical Exam: General- No acute distress Head- atraumatic Eyes- PERRL, EOMI, ENT- oropharynx clear Neck- supple, no JVD Lungs- diminished breath sound Heart- regular rhythm; no murmur Abdomen- normal bowel sounds, soft, nontender Extremities- no calf tenderness Neuro- alert, awake, PERRL, EOMI; no facial palsy; no dysarthria Skin- warm & dry Results & Data Results & Data ([facility]) Vital Signs (Past 12 Hours) Vital Signs Temp Pulse Resp BP Pulse Ox 01/31/20 15:28 36.7 C 106 H 18 114/81 95 01/31/20 07:20 36.8 C 118 H 18 136/79
[2020-01-31] MEDS: SODIUM CHLOR 7% 4 ML NEB NEB SCH (20:38)
[2020-01-31] MEDS: ALBUT/IPRATROP 3MG/0.5MG NEB 3 ML VIAL INH SCH (20:38)
[2020-01-31] MEDS: BUDESONIDE 0.5 MG/2 ML VIAL (PULMICORT) NEB SCH (20:38)
[2020-01-31] MEDS: TOBRAMYCIN SULFATE 300 MG in SYRINGE 0 ML INH SCH (21:01)
[2020-01-31] MEDS: MONTELUKAST SODIUM 10 MG TABLET PO SCH (23:11)
[2020-01-31] MEDS: traMADol HCL 50 MG TABLET PO PRN (23:37)
[2020-02-01] MEDS: MELATONIN 3 MG TAB PO PRN (00:10)
[2020-02-01] MEDS: ALBUT/IPRATROP 3MG/0.5MG NEB 3 ML VIAL NEB PRN ×2 (00:15→13:22)
[2020-02-01] MEDS: ALBUT/IPRATROP 3MG/0.5MG NEB 3 ML VIAL INH SCH ×2 (07:21→07:30)
[2020-02-01] MEDS: BUDESONIDE 0.5 MG/2 ML VIAL (PULMICORT) NEB SCH ×2 (07:21→07:31)
[2020-02-01] MEDS: SODIUM CHLOR 7% 4 ML NEB NEB SCH ×2 (07:21→07:31)
[2020-02-01] MEDS: TOBRAMYCIN SULFATE 300 MG in SYRINGE 0 ML INH SCH ×3 (07:22→17:41)
[2020-02-01] MEDS: BREXPIPRAZOLE 4 MG PO SCH (08:13)
[2020-02-01] MEDS: VORTIOXETINE HYDROBROMIDE 20MG PO SCH (08:13)
[2020-02-01] MEDS: CLOTRIMAZOLE/BETAMETHASONE CR 15 GM TUBE EXT SCH (08:14)
[2020-02-01] MEDS: CALCITONIN SALMON NA 200 IU/AC 3.7 ML BTL NAE SCH (08:14)
[2020-02-01] MEDS: UMECLIDINIUM/VILANTEROL 62.5/25MCG 7 PUFFS/INHALER INH SCH ×2 (08:14→08:24)
[2020-02-01] MEDS: FLUTICASONE PROPIONATE NA SPR 16 GM BTL NAE SCH (08:14)
[2020-02-01] MEDS: KETOCONAZOLE 2% CR 15 GM TUBE EXT SCH ×2 (08:14→13:09)
[2020-02-01] MEDS: METOPROLOL TARTRATE 25 MG TAB PO SCH (08:15)
[2020-02-01] MEDS: INSULIN ASPART 100 UNITS/ML 3 ML PEN SC SCH ×3 (08:15→17:51)
[2020-02-01] MEDS: predniSONE 10 MG TABLET PO SCH (08:15)
[2020-02-01] MEDS: cloZAPine 100 MG TAB PO SCH ×2 (08:16→17:38)
[2020-02-01] MEDS: FUROSEMIDE 40 MG TAB PO SCH (08:16)
[2020-02-01] MEDS: CALCIUM 600MG + VIT D 400 IU TAB PO SCH ×2 (08:16→17:38)
[2020-02-01] MEDS: DOCUSATE SODIUM 100 MG CAP PO SCH (08:16)
[2020-02-01] MEDS: clonazePAM 0.25 MG TAB PO SCH (08:16)
[2020-02-01] MEDS: FAMOTIDINE 20 MG TAB PO SCH (08:16)
[2020-02-01] MEDS: FERROUS SULFATE 325 MG TAB PO SCH ×2 (08:16→17:39)
[2020-02-01] MEDS: FENOFIBRATE NANOCRYSTALLIZED 48 MG TABLET PO SCH (08:16)
[2020-02-01] MEDS: FOLIC ACID 1 MG TAB PO SCH (08:16)
[2020-02-01] MEDS: PANTOprazole 40 MG TAB PO SCH ×2 (08:16→17:39)
[2020-02-01] MEDS: guaiFENesin 600 MG TABCR PO SCH (08:16)
[2020-02-01] MEDS: busPIRone 15 MG TAB PO SCH (08:16)
[2020-02-01] MEDS: CEROVITE ADV FORMULA TAB PO SCH (08:17)
[2020-02-01] MEDS: traMADol HCL 50 MG TABLET PO PRN ×2 (08:26→17:36)
[2020-02-01] MEDS: ACETAMINOPHEN 500 MG TAB PO PRN (11:48)
[2020-02-01 13:10] LABS: Creatinine Clr Calc Pharmacy 76.2 ml/min; Est GFR (African American) 80.5; Est GFR (Non-African American) 69.5; Potassium 3.4 mmol/L (3.5-5.1)
[2020-02-01] MEDS ORDERED: POTASSIUM CHLORIDE 10 MEQ TABCR PO STA (15:29)
--- NOTE | 2020-02-01 15:34 | Hospitalist Progress Note ---
Date of Service February 01, 2020 Assessment & Plan (1) Acute and chronic respiratory failure with hypoxia: Acute and chronic respiratory failure with hypoxia: Presented with acute on chronic hypoxemic respiratory failure with COPD exacerbation Suspected Gram-Negative pneumonia CXR showed progressively worsened bilateral interstitial opacities with mixed interstitial and alveolar opacities throughout the left lung. COVID 19 negative Sputum culture positive for Pseudomonas Pulmonology on board Completed the course of cefepime Continue tobramycin twice a day for 2 weeks on and then 2 weeks off for total 12 weeks. Continue Neb tx /home inhaler tx Continue prednisone supplement 10mg for 5 days then taper to 5 mg Pt would like to transition to hospice but sister does not want her to go on hospice Sister would like pt to discharge home with HH Continue oxygen supplement Pt Tobramycin will deliver on Sunday. Will give pt supply for Sunday to take home Follow up with pulmonology History of schizoaffective disorder: Mood stable no delusion or hallucination Continue outpatient meds Follow up with psych Constipation Pt had a BM yesterday Continue laxative/stool softener Stable Hypokalemia K 3.4 today Potassium replaced Diabetes Will resume diabetes PO med on discharge Continue monitor BS CODE STATUS: DNR/DNI DVT prophylaxis on subcu heparin Disposition: Discharge home with Home health Admission and Anticipated Discharge Date Admission Date: January 24, 2020 Subjective Pt was seen and examined for follow up on her SOB Lying in bed with no distress Pt said that she feels better She wants to go home today She said that she is ready to go to be with his sister Pt understand that she is very high risk for readmission due to her breathing Denies any chest pain, palpitation, dizziness and fever Physical Exam Physical Exam: General- No acute distress Head- atraumatic Eyes- PERRL, EOMI, ENT- oropharynx clear Neck- supple, no JVD Lungs- faint wheezing Heart- regular rhythm; no murmur Abdomen- normal bowel sounds, soft, nontender Extremities- no calf tenderness Neuro- alert, awake, PERRL, EOMI; no facial palsy; no dysarthria Skin- warm & dry Results & Data Results & Data ([facility]) Vital Signs (Past 12 Hours) Vital Signs Temp Pulse Pulse Resp BP Pulse Ox 02/01/20 15:00 36.4 C L 104 H 20 115/80 90 02/01/20 13:22 98 H 20 92 02/01/20 07:23 82 82 19 92 02/01/20 05:38 91 H 26 H 93
[2020-02-01] MEDS ORDERED: Nursing to Pharmacy Communication SCH (16:15)
[2020-02-01] MEDS: LORATADINE 10 MG TAB PO SCH (17:37)
--- NOTE | 2020-02-03 08:53 | Discharge Summary ---
Date of Service February 01, 2020 Admission HPI Per Admitting Provider 59 years old female with complex past medical history of type 2 diabetes, esophageal dysmotility, GERD, CKD stage III, osteoporosis, depression, schizoaffective disorders, tobacco abuse, chronic hypoxic respiratory failure due to underlying COPD + pulmonary fibrosis on 4-8 L [place] oxygen presented to the ER with worsening shortness of breath. Patient was recently discharged from [facility] on January 16, 2020 for similar presentation, COPD exacerbation, shortness of breath Patient reports after returning home she was doing well for the past 2 to 3 days, then started to develop worsening of shortness of breath, cough continues to worsen-with yellow productive sputum Did not had any fever or chills No known COVID-19 exposure Her home pulse oximetry shows oxygenation drop down to low 80s, patient increased her nasal cannula oxygen to 8 L via nasal cannula but continued to have shortness of breath worsening with minimal movements This morning she woke up with worsening of shortness of breath and EMS was called, she was found to be desaturating in low 80s on supplemental O2. In the ER patient was given given a nebulizer treatment /IV Solu-Medrol, chest x-ray shows bilateral interstitial infiltrate, with possible pulmonary congestion slight progression from prior chest x-ray COVID-19 test negative Patient will be admitted to telemetry, continue respiratory support, Pulmonology consult requested Admission Exam Per Admitting Provider Constitutional: WD/WN, vitals as above + ill appearing Eyes: PERRL, conjunctivae normal, anicteric sclerae ENMT: external ear and nose normal, oropharynx normal Neck: trachea midline, no thyromegaly Respiratory: + respiratory distress and + cough Auscultation: + diminished lung sounds, + crackles, + rales, + rhonchi and + wheezes Skin: no rashes, warm and dry Neurologic: PERRL, EOMI, accommodation nl, no face palsy, no dysarthria Psychiatric: A+Ox3, euthymic affect Principal Diagnosis Acute and chronic respiratory failure with hypoxia: History of schizoaffective disorder: Constipation Hypokalemia Diabetes Discharge Exam General- No acute distress Head- atraumatic Eyes- PERRL, EOMI, ENT- oropharynx clear Neck- supple, no JVD Lungs- faint wheezing Heart- regular rhythm; no murmur Abdomen- normal bowel sounds, soft, nontender Extremities- no calf tenderness Neuro- alert, awake, PERRL, EOMI; no facial palsy; no dysarthria Skin- warm & dry Discharge Data Allergies Allergy/AdvReac Type Severity Reaction Status Date / Time hydroxyzine Allergy Unknown UNKNOWN Verified 01/24/20 09:37 fluphenazine AdvReac Intermediate confusion Verified 01/24/20 09:37 haloperidol AdvReac Intermediate "MAKES ME Verified 01/24/20 09:37 GO INTO BLACKOUT" hydrocodone AdvReac Intermediate DROWSY Verified 01/24/20 09:37 molindone AdvReac Intermediate PT FEELS Verified 01/24/20 09:37 LIKE SHES "JUMPING OUT OF HER SKIN" morphine AdvReac Intermediate DROWSY Verified 01/24/20 09:37 lithium AdvReac Mild "LEVEL CAN Verified 01/24/20 09:37 GET TOO HIGH" benzonatate AdvReac Unknown Patient Unverified 01/24/20 09:37 [From Adryan Small] states contraindication with other pulmonary meds Consultations 01/24/20 10:11 Consult Pulmonology Routine 01/24/20 10:13 Consult Case Management - Discharge Planning Routine ED Decision to Admit Stat 01/26/20 13:43 Consult Palliative Care Routine XR chest 1V portable HISTORY: 59 years-old Female dyspnea, hypoxia acute shortness of breath with hypoxia COMPARISON: Chest radiograph 01/16/2020, CTA chest 02/04/2019. TECHNIQUE: Portable AP view of the chest FINDINGS: Hypoinflation. Chronic interstitial lung disease. Cardiomegaly. Unchanged positioning of the right pectoral Meactj-b-Ewjw catheter. No pneumothorax or large pleural effusion. Mildly progressive bilateral reticular opacities with progressive mixed interstitial and alveolar opacities throughout the left lung. Degenerative changes of the shoulders and spine. Healed remote right-sided rib fractures. Posterior interbody nina and screw fusion hardware of the midthoracic spine. IMPRESSION: 1. Progressively worsened bilateral interstitial opacities with mixed interstitial and alveolar opacities throughout the left lung. Findings are suggestive of pneumonia versus asymmetric pulmonary edema. 2. Cardiomegaly. 3. Chronic interstitial lung disease. ACT 112: Negative or not required by law. The above report was generated using voice recognition software. It may contain grammatical, syntax or spelling errors. Electronically signed by: Jeanmarie Sharp M.D. 01/24/2020 9:56 AM Dictated: 01/24/20951Transcribed: 01/24/20951 Hospital Course (1) Acute and chronic respiratory failure with hypoxia: Acute and chronic respiratory failure with hypoxia: Presented with acute on chronic hypoxemic respiratory failure with COPD exacerbation Suspected Gram-Negative pneumonia CXR showed progressively worsened bilateral interstitial opacities with mixed interstitial and alveolar opacities throughout the left lung. COVID 19 negative Sputum culture positive for Pseudomonas Pulmonology on board Completed the course of cefepime Continue tobramycin twice a day for 2 weeks on and then 2 weeks off for total 12 weeks. Continue Neb tx /home inhaler tx Continue prednisone supplement 10mg for 5 days then taper to 5 mg Pt would like to transition to hospice but sister does not want her to go on hospice Sister would like pt to discharge home with HH Continue oxygen supplement Pt Tobramycin will deliver on Sunday. Will give pt supply for Sunday to take home Follow up with pulmonology History of schizoaffective disorder: Mood stable no delusion or hallucination Continue outpatient meds Follow up with psych Constipation Pt had a BM yesterday Continue laxative/stool softener Stable Hypokalemia K 3.4 today Potassium replaced Diabetes Will resume diabetes PO med on discharge Continue monitor BS CODE STATUS: DNR/DNI DVT prophylaxis on subcu heparin Disposition: Discharge home with Home health Total Time Total Time Spent Total Time Spent (In Minutes): 35 minutes Total Time Includes: Examination of the Patient, Discharge Planning, Medication Reconciliation, Communication With Other Providers and Other Discharge Plan Discharge Items Patient Disposition: Home - Home Health Services Reason For Visit: RESPIRATORY FAILURE/ HYPOXIA Discharge Diagnosis: Acute and chronic respiratory failure with hypoxia: History of schizoaffective disorder: Constipation Hypokalemia Diabetes Condition on Discharge: Fair Activity: Resume your previous activity Non-emergency contact: Primary Care Provider, Accreditation Specialist and Psychiatrist Call non-emergency contact if: you have any medication questions Follow-up/Referrals: Naveed Adam MD [Primary Care Provider] - (Date & Time 02/03/2020 11:00 AM Provider Naveed Adam III, MD Department [facility] ) Diet: Carb Consistent or DM2 Addtl Attending Provider Instructions: Follow up with your primary care provider Dr. Adam on 02/03/2020 11:00 AM Follow up with pulmonology (Please call to arrange for the appointment) Follow up with your psychiatrist Continue physical and occupation therapy Continue 6-8 L nasal cannula daily Continue tobramycin twice a day for 2 weeks on and then 2 weeks off for total 12 weeks. (since you have been on tobramycin for 7 days while in the hospital, then continue for 1 more week, then off for 2 weeks; then start it for 2 weeks ) Your Tobramycin will deliver on Sunday. we Will give you supply for Sunday to take home Continue Prednisone 10mg for 4 more days, then taper to 5 mg Check BMP in 1 week to monitor electrolytes and renal function Fall precaution Aspiration precaution Pending Studies at Discharge: No Stand-Alone Forms: My [facility], Smoking Cessation Medications and DC Order Prescriptions: New furosemide 40 mg Tablet 40 mg PO QAM Qty: 30 RF: 0 guaifenesin [Mucinex] 600 mg Tablet Extended Release 12hr 1,200 mg PO BID Qty: 30 RF: 0 clonazepam 0.5 mg Tablet 0.25 mg PO Q12 Qty: 10 RF: 0 Continued calcitonin (salmon) 200 unit/actuation Kermit,Non-Aerosol 1 spray Intranasal QAM RF: 0 ferrous sulfate [FerrouSul] 325 mg (65 mg iron) tablet 325 mg PO BIDM RF: 0 folic acid 1 mg Tablet 1 mg PO QAM RF: 0 montelukast [Singulair] 10 mg Tablet 10 mg PO HS RF: 0 albuterol sulfate [Ventolin HFA] 90 mcg/actuation Hfa Aerosol Inhaler 2 puff INHALATION Q6H PRN (Reason: Shortness Of Breath Or Wheezing) RF: 0 fenofibrate nanocrystallized [Tricor] 48 mg Tablet 48 mg PO QAM RF: 0 pantoprazole [Protonix] 40 mg Tablet,Delayed Release (Dr/Ec) 40 mg PO BIDM RF: 0 magnesium hydroxide [Milk of Magnesia] 400 mg/5 mL Suspension 30 ml PO HS PRN (Reason: Constipation) RF: 0 tramadol 50 mg tablet 50 mg PO Q6 PRN (Reason: Pain) RF: 0 docusate sodium 100 mg Capsule 100 mg PO AMHS RF: 0 clozapine [Clozaril] 100 mg Tablet 100 mg PO BIDM RF: 0 Januvia 100 mg Tablet 100 mg PO QAM RF: 0 metoprolol tartrate 25 mg Tablet 12.5 mg PO AMHS RF: 0 acetaminophen [Tylenol Extra Strength] 500 mg Tablet 1,000 mg PO TID MDD 2 GR/24 HOURS PRN (Reason: Pain) RF: 0 diclofenac sodium [Voltaren] 1 % Gel 2 g TOPICAL QID PRN (Reason: Pain) RF: 0 fluticasone propionate [Flonase Allergy Relief] 50 mcg/actuation Kermit,Suspension 2 spray INTRANASAL QAM RF: 0 budesonide 1 mg/2 mL suspension for nebulization 1 mg inhalation BID RF: 0 Mavyret 100-40 mg Tablet 3 tab PO DAILY RF: 0 buspirone 15 mg tablet 15 mg PO BID RF: 0 albuterol sulfate 2.5 mg /3 mL (0.083 %) solution for nebulization 2.5 mg inhalation TID PRN (Reason: Shortness Of Breath) RF: 0 calcium-vitamin D3-vitamin K 500 mg-1,000 unit-40 mcg Tablet,Chewable 1 tab PO BIDM RF: 0 cyclobenzaprine 5 mg tablet 5 mg PO BID PRN (Reason: Muscle Spasm) RF: 0 Mucinex 1,200 mg Tablet Extended Release 12hr 1,200 mg PO AMHS RF: 0 Trintellix 20 mg Tablet 20 mg PO QAM RF: 0 clotrimazole-betamethasone 1-0.05 % cream 1 applic TOPICAL BID RF: 0 multivitamin with minerals Tablet 1 tab PO QAM RF: 0 Arnuity Ellipta 100 mcg/actuation blister with device 1 inh inhalation QAM RF: 0 terbinafine HCl 1 % Cream 1 applic TOPICAL DIRECTED PRN (Reason: RASH ON STOMACH) RF: 0 promethazine 6.25 mg/5 mL Syrup 6.25 mg PO QID PRN (Reason: Cough) RF: 0 famotidine 20 mg Tablet 20 mg PO AMHS RF: 0 celecoxib [Celebrex] 100 mg Capsule 100 mg PO BIDM RF: 0 ketoconazole 2 % Cream 1 applic TOPICAL TID RF: 0 loratadine 10 mg Tablet 10 mg PO QDD RF: 0 sodium chloride [Deep Sea Nasal] 0.65 % Aerosol,Kermit 2 spray INTRANASAL TID PRN (Reason: DRYNESS) RF: 0 melatonin 5 mg Tablet 5 mg PO HS PRN (Reason: Sleep) RF: 0 Rexulti 4 mg tablet 4 mg PO QAM RF: 0 Trelegy Ellipta 100-62.5-25 mcg Blister With Device 1 inh INHALATION QAM RF: 0 Changed prednisone 10 mg tablet 10 mg PO UD Qty: 20 RF: 0 Discontinued clonazepam 0.5 mg tablet See Rx Instructions .ROUTE .COMPLEX RF: 0 furosemide [Lasix] 20 mg Tablet 20 mg PO DAILY PRN (Reason: Edema) RF: 0 Discharge Orders: Discharge Order (Routine); Ordered 02/01/20 Ordered By: Arvind Duong Admission Data Admit Date/Time: 01/24/20 10:12 Attending Provider: Arvind Duong Admit Provider: Vanessa Dick Primary Care Provider: Naveed Adam Other Providers: [facility] ; Toni Howard ; Vanessa Dick ; Marisol Ardon Other Interventions: Discharge Summary Assessment (RN) Last Done: 02/01/20 16:20
== END 2020-02-01 18:57 | disposition home health service (06) | DRG 177 ==
LOC: ED 08:32 → 2S 10:12 → SUATTDRO 10:12 → 2S 10:44 → 2W 01-25 13:40